=== PATIENT | male | born 1960 | race Caucasian/White ===

== ENCOUNTER 2017-07-11 17:38 | Inpatient (IN) | payer MEDICAID, SELFPAY ==
[2017-07-11 17:39] VITALS: BP 126/81; PULSE 112; PULSE 114; RESP 20; TEMP 36.6; O2SAT 93; O2SAT 96; BMI 24.2
[2017-07-11 17:50] LABS: Bedside Glucose 79 mg/dL (70-110)
[2017-07-11] MEDS: 0.9% Normal Saline 1,000 ML 1000 ML IV (17:55)
--- NOTE | 2017-07-11 17:55 | CT_ITS ---
STUDY: CT BRAIN WITHOUT CONTRAST REASON FOR EXAM: Male, 56 years old. Seizure, confusion and lethargy. History of TBI. RADIATION DOSAGE (If Supplied By Facility): CTDIvol = ( 44.99 ) mGy, DLP = ( 846.73 ) mGycm TECHNIQUE: Transaxial CT imaging of the brain was performed without administration of intravenous contrast material. Individualized dose optimization techniques were used for this CT. COMPARISON: None. FINDINGS: Normal soft tissue structures. Normal calvarium. There is mild cerebral atrophy with widening of the extra-axial spaces and ventricular dilatation. Old well demarcated infarct in right middle cerebral territory involving the right posterior frontal and temporal lobes. Normal basal ganglia and thalami. Normal brainstem. Normal cerebellum. There is no intracranial hemorrhage. There are no findings of an acute ischemic infarction. Mucosal thickening in the inferior recess of the right frontal sinus. Mild areas of mucosal thickening in bilateral ethmoid sinuses. Fluid in one large right mastoid air cell. CT/Brain/Head without Contrast IMPRESSION: Negative for acute intracranial findings. Negative for hemorrhage, hematoma or mass density. Negative for early demarcation of a new nonhemorrhagic infarct zone. 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 Electronically Signed: Maria C Nevarez MD at 18:40 EST , Service support ,
--- NOTE | 2017-07-11 17:55 | EKG12_ITS ---
Test Reason : UNRESPONSIVE Blood Pressure : / mmHG Vent. Rate : 111 BPM Atrial Rate : 111 BPM P-R Int : 168 ms QRS Dur : 112 ms QT Int : 340 ms P-R-T Axes : 067 068 054 degrees QTc Int : 462 ms Sinus tachycardia Otherwise normal ECG Confirmed by VICKI ROMERO ([id number]), manager editorial HONG ELIAS ([id number]) on 07/15/2017 9:44:37 AM Referred By: ABRAHAM Confirmed By:VICKI ROMERO
[2017-07-11 18:10] LABS: Absolute Lymphocyte Count 2.04 X10^3/ul (0.83-4.51); Absolute Neutrophil Count 13.6 X10^3/uL (2.0-7.7); Basophil# 0.02 X10^3/uL; Basophil% 0.1 % (0-1); Eosinophil# 0.03 X10^3/uL; Eosinophils% 0.2 % (0-5); Hematocrit 39.3 % (40-54); Hemoglobin 12.7 g/dl (13.0-16.5); Lymphocyte # 2.04 X10^3/ul (4.0); Lymphocyte % 12.2 % (19-41); Mean Corp Hgb Conc 32.3 g/gl (32-36); Mean Corpuscular Hgb 26.8 pg (27.0-32.0); Mean Corpuscular Volume 82.9 fL (80-94); Mean Platelet Vol. 9.1 fl (6.2-12.0); Monocyte# 0.98 X10^3/uL; Monocyte% 5.9 % (0-10); Neutrophil # 13.55 X10^3/uL (2.7-7.7); Neutrophil % 81.3 % (47-70); POSITIVE COUNT NO; POSITIVE DIFFERENTIAL NO; POSITIVE MORPHOLOGY NO; Platelet Count 338 K/mm3 (150-450); RBC Distribution Width CV 15.9 % (11.6-14.6); RBC Distribution Width SD 47.6 fl (35.1-43.9); Red Blood Count 4.74 M/mm3 (4.6-6.2); White Blood Count 16.7 K/mm3 (4.4-11.0)
[2017-07-11 18:13] LABS: International Normalized Ratio 1.1; Prothrombin Time (Protime)PT. 13.7 SECONDS (11.7-14.9)
[2017-07-11 18:14] LABS: Partial Thromboplast Time 30.3 Seconds (24.1-36.2)
[2017-07-11 18:23] LABS: ALB/GLOB Ratio 0.9 RATIO (0.9-2.4); AST(SGOT) 8 U/L (15-37); Alanine Aminotransfer ALT/SGPT 19 U/L (12-78); Albumin, Serum 3.6 g/dL (3.4-5.0); Alkaline Phosphatase 89 U/L (45-117); Anion Gap 9 (5-15); BUN 15 mg/dL (7-18); BUN/Creat Ratio 15.5 RATIO (10-20); Calcium,Total 8.7 mg/dL (8.5-10.1); Chloride 102 mmol/L (98-107); Creatinine, Serum 0.97 mg/dL (0.70-1.30); EST Glomerular Filtration Rate 86 mL/min (>60); Est Glom Filt Rate - Afr Amer 104 mL/min (>60); Estimated Creatinine Clearance 84.23 ml/min; Globulin 3.8 g/dL (2.2-4.2); Glucose 84 mg/dL (70-110); Lipase 68 U/L (73-393); Potassium 4.3 mmol/L (3.5-5.1); Protein, Total 7.4 g/dL (6.4-8.2); Sodium Level 137 mmol/L (136-145)
[2017-07-11 18:27] LABS: Alcohol, Blood (Medical)-Serum < 3.0 mg/dL
[2017-07-11 18:34] LABS: Lactic Acid 3.4 mmol/L (0.4-2.0)
[2017-07-11 20:12] VITALS: BP 112/73; PULSE 97; RESP 13; O2SAT 97
[2017-07-11 20:55] LABS: Bacteria 0 SEEN /hpf (None Seen); Mucous, Urine 0 SEEN /hpf (<or=2+); Red Blood Cells-Urine 0 SEEN /hpf (0-5); Squamous Epithelial Cells - UA 0 SEEN /hpf (0-5)
[2017-07-11 20:58] LABS: Color, Urine Yellow (Yellow); Glucose, Dipstick Normal (Normal); Ketone-Dipstick 5 mg/dl (Negative); Leukocyte Esterase-Dipstick 25 /ul (Negative); Nitrite-Dipstick Negative (Negative); Occult Blood-Urine Negative /ul (Negative); Protein-Dipstick Negative (Negative); Specific Gravity, Urine 1.015 (1.002-1.030); Urine Bilirubin Dipstick Negative (Negative); Urine Clarity Clear (Clear); Urine Urobilinogen Normal (Normal)
[2017-07-11 21:01] VITALS: BP 111/69; PULSE 92; RESP 12; O2SAT 98
[2017-07-11 21:07] LABS: White Blood Cells 0-5 SEEN /hpf (0-5)
[2017-07-11 21:16] LABS: Amphetamine Urine VISTA NEGATIVE (<1000 ng/mL); Barbiturate Urine VISTA NEGATIVE (< 200 ng/mL); Benzodiazepine Urine VISTA NEGATIVE (< 200 ng/mL); Cocaine Urine VISTA NEGATIVE (< 300 ng/mL); Ecstacy Urine VISTA NEGATIVE (< 500 ng/mL); Methadone Urine VISTA NEGATIVE (< 300 ng/mL); PCP Urine VISTA NEGATIVE (< 25 ng/mL); THC Urine VISTA NEGATIVE (< 50 ng/mL); Vista UDS pH Range 7
[2017-07-11 22:00] VITALS: BP 104/78; PULSE 88; PULSE 89; RESP 11; RESP 16; O2SAT 98
[2017-07-11 22:04] LABS: Reflex Lactate? Y
[2017-07-11] MEDS: 0.9% Normal Saline 1,000 ML 150 ML IV (22:11)
[2017-07-11 22:46] LABS: Lactic Acid 1.3 mmol/L (0.4-2.0)
[2017-07-11 23:04] VITALS: BP 121/84; PULSE 88; RESP 14; O2SAT 97
--- NOTE | 2017-07-11 23:04 | PCM.HP.STD ---
Problem List (1) Seizure Status: Acute (2) Acute respiratory failure Status: Acute (3) Encephalopathy Status: Acute (4) Hoarseness Status: Acute (5) Pneumonia Status: Acute Qualifiers: Pneumonia type: due to unspecified organism Laterality: unspecified laterality Lung location: unspecified part of lung Qualified Code(s): J18.9 - Pneumonia, unspecified organism (6) Sepsis Status: Acute (7) Bipolar disorder Status: Chronic Qualifiers: (8) COPD (chronic obstructive pulmonary disease) Status: Chronic Qualifiers: History of Present Illness Date of Admission: 07/11/17 Chief Complaint: Seizure The patient is a 56 year old male w/ h/o bipolar, HTN, COPD, and GERD admitted for AMS. He was riding with his out of [employer] when he suddenly developed shaking both of his hands. He spoke gibberish to his . Nothing made the shaking better or worse. The shake would last for a few minutes and he became unresponsive. EMS was called and he responded to sternal rub. He was able to open his syes and spoke . He had a h/o traumatic brain injury 15 years ago. Past Medical History Past Medical History (Chronic Problems): Chronic Problems (Last Updated 06/02/17 @ 11:00 by Clarisse Young) Depression (Chronic) LACEY (obstructive sleep apnea) (Chronic) Lung nodule (Chronic) Sleep-related breathing disorder (Chronic) Bipolar disorder (Chronic) GERD (gastroesophageal reflux disease) (Chronic) COPD (chronic obstructive pulmonary disease) (Chronic) Traumatic brain injury (Chronic) Spinal stenosis (Chronic) Tobacco abuse (Chronic) Migraine (Chronic) Allergies dextromethorphan HBr [From NyQuil] Allergy (Verified 07/11/17 17:43) Other doxylamine [From NyQuil] Allergy (Verified 07/11/17 17:43) Other pseudoephedrine HCl [From NyQuil] Allergy (Verified 07/11/17 17:43) Other sertraline HCl [From Zoloft] Adverse Reaction (Verified 07/11/17 17:43) Diarrhea Home Medications: Ambulatory Orders Medication Instructions Recorded Omeprazole [Prilosec] 40 mg PO DAILY 05/19/13 Albuterol Inhaler [Ventolin Hfa] 2 puff INHALATION Q4H PRN PRN 09/11/16 Albuterol Sulfate 5 mg IH PRN PRN 09/11/16 Amitriptyline HCl [Elavil] 100 mg PO QHS 09/11/16 Multivitamin [Multiple Vitamins] 1 ea PO DAILY 09/11/16 Divalproex (ER) [Depakote ER] 250 mg PO TID 12/05/16 Fluticasone/Salmeterol [Advair 1 puff INHALATION BID 12/05/16 100-50 Diskus] Quetiapine Fumarate [Seroquel] 25 mg PO TID PRN PRN 12/05/16 Ranitidine [Zantac] 150 mg PO QHS 12/05/16 Gabapentin [Neurontin] 800 mg PO 4X/DAY 04/14/17 Propranolol HCl [Inderal] 10 mg PO BID 07/11/17 Sucralfate [Carafate] 1 g PO 4X/DAY 07/11/17 Surgical History: - - Tennis elbow, Left ankle, TBI with encephalamalacia, Inguinal hernia. Psychiatric History: Bipolar Lives: Spouse/ Significant Other Smoking Status: Current every day smoker Alcohol: None Drugs: None - *Family History Maternal Family History: Family History (Last Updated 06/02/17 @ 11:02 by Clarisse Young) Father Dementia Alzheimers disease Diabetes Mother Diabetes History Items: Diabetes Paternal Family History: Family History (Last Updated 06/02/17 @ 11:02 by Clarisse Young) Father Dementia Alzheimers disease Diabetes Mother Diabetes History Items: Heart Disease Review of Systems Unable to obtain accurate/complete ROS d/t: Unable to obtain secondary to confusion VTE Information - Inpt Only VTE Present on Admission: No VTE Mechan Device Prophylaxis: SCD's VTE Pharm Prophylaxis ordered?: Yes Patient Problems: Active and Suspected Problems (Last Updated 06/02/17 @ 11:00 by Clarisse Young) Seizure (Acute) - Physical Exam General: No apparent distress, Confused HEENT: Atraumatic, PERRLA, EOMI, Normocephalic Neck: Supple, No JVD, Negative Carotid Bruits Lungs: Clear to auscultation, Normal air movement Cardiovascular: Regular rate, No murmurs Abdomen: Bowel Sounds Present, Soft, Non Tender Extremities: No edema, Capillary Refill Less than 3 Seconds Skin: No rashes, No breakdown Musculoskeletal: No Tenderness to Palpation of Joints or Extremities Neurological: Cranial nerves II-XII grossly intact Psych/Mental Status: Normal Affect, Appropriate Vital Signs Temp Pulse Resp BP Pulse Ox 97.9 F 88 14 121/84 H 97 07/11/17 17:39 07/11/17 23:04 07/11/17 23:04 07/11/17 23:04 07/11/17 23:04 Oxygen Flow Rate 2 Oxygen Delivery Method Room Air Weight: 72.3 kg Body Mass Index (BMI) 24.2 Finger Stick Blood Glucose 79 Laboratory Tests Past 24 Hrs 07/11/17 07/11/17 07/11/17 17:52 17:52 17:52 WBC 16.7 H RBC 4.74 Hgb 12.7 L Hct 39.3 L MCV 82.9 MCH 26.8 L MCHC 32.3 RDW 15.9 H RDW Differential 47.6 H Plt Count 338 MPV 9.1 Immature Gran % (Auto) 0.300 Neut % (Auto) 81.3 H Lymph % (Auto) 12.2 L [place] % (Auto) 5.9 Eos % (Auto) 0.2 Baso % (Auto) 0.1 Absolute Neuts (auto) 13.6 H Absolute Lymphs (auto) 2.04 Total Counted Not Reportable PT 13.7 INR 1.1 APTT 30.3 Sodium 137 Potassium 4.3 Chloride 102 Carbon Dioxide 26.0 Anion Gap 9 BUN 15 Creatinine 0.97 Estim Creat Clear Calc 84.23 Est GFR (MDRD) Af Amer 104 Est GFR (MDRD) Non-Af 86 BUN/Creatinine Ratio 15.5 Glucose 84 Lactic Acid Calcium 8.7 Total Bilirubin 0.50 AST 8 L ALT 19 Alkaline Phosphatase 89 Troponin I < 0.02 Total Protein 7.4 Albumin 3.6 Globulin 3.8 Albumin/Globulin Ratio 0.9 Lipase 68 L Urine Color Urine Clarity Urine pH Ur Specific [place] Urine Protein Urine Glucose (UA) Urine Ketones Urine Occult Blood Urine Nitrite Urine Bilirubin Urine Urobilinogen Ur Leukocyte Esterase Urine RBC Urine WBC Ur Squamous Epith Cells Urine Bacteria Urine Mucus Urine Opiates Screen Urine Methadone Screen Ur Barbiturates Screen Ur Phencyclidine Scrn Ur Amphetamines Screen U Methamphetamin-MDMA U Benzodiazepines Scrn Urine Cocaine Screen U Cannabinoids Screen Ur Drug Screen Comment Ethyl Alcohol 07/11/17 07/11/17 07/11/17 17:52 18:02 20:51 WBC RBC Hgb Hct MCV MCH MCHC RDW RDW Differential Plt Count MPV Immature Gran % (Auto) Neut % (Auto) Lymph % (Auto) [place] % (Auto) Eos % (Auto) Baso % (Auto) Absolute Neuts (auto) Absolute Lymphs (auto) Total Counted PT INR APTT Sodium Potassium Chloride Carbon Dioxide Anion Gap BUN Creatinine Estim Creat Clear Calc Est GFR (MDRD) Af Amer Est GFR (MDRD) Non-Af BUN/Creatinine Ratio Glucose Lactic Acid 3.4 H Calcium Total Bilirubin AST ALT Alkaline Phosphatase Troponin I Total Protein Albumin Globulin Albumin/Globulin Ratio Lipase Urine Color Yellow Urine Clarity Clear Urine pH 8.0 Ur Specific [place] 1.015 Urine Protein Negative Urine Glucose (UA) Normal Urine Ketones 5 H Urine Occult Blood Negative Urine Nitrite Negative Urine Bilirubin Negative Urine Urobilinogen Normal Ur Leukocyte Esterase 25 H Urine RBC 0 SEEN Urine WBC 0-5 SEEN Ur Squamous Epith Cells 0 SEEN Urine Bacteria 0 SEEN Urine Mucus 0 SEEN Urine Opiates Screen Urine Methadone Screen Ur Barbiturates Screen Ur Phencyclidine Scrn Ur Amphetamines Screen U Methamphetamin-MDMA U Benzodiazepines Scrn Urine Cocaine Screen U Cannabinoids Screen Ur Drug Screen Comment Ethyl Alcohol < 3.0 07/11/17 07/11/17 20:51 22:12 WBC RBC Hgb Hct MCV MCH MCHC RDW RDW Differential Plt Count MPV Immature Gran % (Auto) Neut % (Auto) Lymph % (Auto) [place] % (Auto) Eos % (Auto) Baso % (Auto) Absolute Neuts (auto) Absolute Lymphs (auto) Total Counted PT INR APTT Sodium Potassium Chloride Carbon Dioxide Anion Gap BUN Creatinine Estim Creat Clear Calc Est GFR (MDRD) Af Amer Est GFR (MDRD) Non-Af BUN/Creatinine Ratio Glucose Lactic Acid 1.3 Calcium Total Bilirubin AST ALT Alkaline Phosphatase Troponin I Total Protein Albumin Globulin Albumin/Globulin Ratio Lipase Urine Color Urine Clarity Urine pH Ur Specific [place] Urine Protein Urine Glucose (UA) Urine Ketones Urine Occult Blood Urine Nitrite Urine Bilirubin Urine Urobilinogen Ur Leukocyte Esterase Urine RBC Urine WBC Ur Squamous Epith Cells Urine Bacteria Urine Mucus Urine Opiates Screen NEGATIVE Urine Methadone Screen NEGATIVE Ur Barbiturates Screen NEGATIVE Ur Phencyclidine Scrn NEGATIVE Ur Amphetamines Screen NEGATIVE U Methamphetamin-MDMA NEGATIVE U Benzodiazepines Scrn NEGATIVE Urine Cocaine Screen NEGATIVE U Cannabinoids Screen NEGATIVE Ur Drug Screen Comment Ethyl Alcohol POC Glucose 01/26/18 17:47 POC Glucose 79 Assessment/Plan Active and Suspected Problems (Last Updated 06/02/17 @ 11:00 by Clarisse Young) Seizure (Acute) 56 year old male w/ h/o bipolar, HTN, COPD, and GERD admitted for AMS. 1) AMS / seizure: Unclear etiology. CT negative. Utox negative. Pt received Depacon in ED. Will consult neurology. Will get ammonia, TSH, folate, B12, and RPR. Will get ECHO as well. 2) Bipolar: C/w meds. 3) COPD: No acute exacerbation. C/w meds. Monitor. 4) Prophylaxis: Heparin
--- NOTE | 2017-07-11 23:04 | ED.RN ---
HAS LEFT TO RUN HOME QUICK AND GRAB SOMETHING TO EAT. HER NUMBERS ARE CELL [phone], HOME [phone]
[2017-07-12] VITALS (17 sets, daily range): BP systolic 113–146; BP diastolic 72–89; PULSE 84–93; RESP 15–20; TEMP 36.3–37; O2SAT 2–97; BMI 25.0; BMI 25.1
--- NOTE | 2017-07-12 00:19 | ECHOD_ITS ---
Reason For Study: Dyspnea/SOB Procedure This was a 2D Doppler, Color Flow transthoracic echocardiogram. Exam performed portable in patient room. Left Ventricle Normal size and thickness. The estimated ejection fraction is 65 %. Stage 1 diastolic dysfunction. No regional wall motion abnormalities noted. Right Ventricle Normal size and thickness. Normal systolic function. Atria Normal left atrium. Normal right atrium. Normal atrial septum. Mitral Valve The mitral valve is structurally normal. No prolapse or stenosis seen. Tricuspid Valve Normal tricuspid valve. Unable to estimate RV systolic pressure/pulmonary artery pressure due to technically difficult study. Aortic Valve Normal aortic valve. Trisinus/trileaflet aortic valve. Pulmonic Valve Normal pulmonic valve. Great Vessels Normal aortic root. Normal arch. Normal inferior vena cava. Inferior vena cava collapse with sniff. Pericardium/Pleural No pericardial effusion. MMode/2D Measurements & Calculations LVIDd: 4.7 cm IVSd: 0.89 cm Ao root diam: 3.3 cm LVIDs: 3.3 cm LVPWd: 0.99 cm LA dimension: 2.6 cm RVDd: 2.9 cm FS: 31.0 % LAV(MOD-sp4): 25.3 ml LVAd ap4: 32.4 cm2 SV(MOD-sp4): 48.9 ml EDV(MOD-sp4): 91.3 ml EDV(sp4-el): 94.1 ml LVAs ap4: 20.4 cm2 ESV(MOD-sp4): 42.5 ml ESV(sp4-el): 43.1 ml EF(MOD-sp4): 53.5 % EF(sp4-el): 54.2 % SV(sp4-el): 51.0 ml LA A4 area: 12.1 cm2 RA A4 area: 9.4 cm2 Time Measurements MV dec time: 0.20 sec Doppler Measurements & Calculations MV E max sebastien: 66.4 cm/sec Lat Peak E' Sebastien: 16.2 cm/sec Med Peak E' Sebastien: 12.4 cm/sec MV A max sebastien: 80.0 cm/sec E/E' lat: 4.1 E/E' med: 5.4 MV E/A: 0.83 MV V2 max: 84.7 cm/sec MV P1/2t max sebastien: 84.1 cm/sec Ao V2 max: 123.6 cm/sec MV max P.9 mmHg MV P1/2t: 59.0 msec Ao max P.1 mmHg MV V2 mean: 54.6 cm/sec MV dec slope: 417.6 cm/sec2 Ao V2 mean: 84.4 cm/sec MV mean P.4 mmHg MVA(P1/2t): 3.7 cm2 Ao mean P.1 mmHg MV V2 VTI: 20.3 cm Ao V2 VTI: 22.3 cm LV V1 max: 102.3 cm/sec PA V2 max: 96.3 cm/sec LV V1 max P.2 mmHg LV V1 mean P.0 mmHg LV V1 mean: 64.2 cm/sec LV V1 VTI: 20.9 cm Interpretation Summary The estimated ejection fraction is 65 %. Stage 1 diastolic dysfunction. Unable to estimate RV systolic pressure/pulmonary artery pressure due to technically difficult study. There is no comparison study available. Ordering Physician: Michael Hernandez Referring Physician: Priscilla Nixon Performed By: Mc Sevilla RCS
--- NOTE | 2017-07-12 00:26 | ED.VISSUMM ---
- ER Visit Summary Date of Service: 07/12/17 Chief Complaint: Altered mental status History of Present Illness: The patient is a 56 M who was riding in a car with his when he began to speak gibberish for a few seconds and then his upper extremities began to shake. This lasted a short while the patient became unresponsive. EMS was called and per them the patient appeared that he was in cardiac arrest. However when the did a sternal rub he open his eyes and was able to speak. She had a severe traumatic brain injury about 15 years ago. He sees Dr. Gillespie from neurology. He has a bipolar disorder for which he takes Depakote amongst other medicines. He has never had a seizure. Physical Examination: Afebrile slightly tachycardic Gen: Well-nourished well-developed Head: Normocephalic atraumatic Eyes: Perrl EOMI ENT: TMs clear no rhinorrhea moist mucous membranes Neck: Supple no lymphadenopathy no JVD nontender CVS: Regular rate rhythm no murmurs normal S1-S2 Respiratory: No distress clear to auscultation bilaterally chest nontender Abdomen: Soft nontender nondistended normal bowel sounds no masses Back: Nontender Extremity: Nontender no edema Skin: Normal color no rash Neuro: Patient is lethargic. Patient opens his eyes and speaks to voice but falls asleep easily. He does move all 4 extremities. He smiles equally and closes his eyes appropriately and equally. Test Results: CT the head showed no acute. White count 16.7. Lactic acid 3.4. EKG sinus at a rate of 111. Troponin is then 0.02 Emergency Department Course and Treatment: Patient was observed. He has not yet regained his baseline. He seems to fall asleep still very easily. Spoke with Dr. Nguyen from neurology and we gave him a gram of Depacon. Our plan is admission. Impression: 1. Altered mental status 2. First-time seizure This note was generated with [employer] dictation software. It may contain incorrect words, spelling, and punctuation that were not noted in review of the chart prior to signing ED Disposition - Plan for ED Patient: Disposition: Acute Care [facility] Chief Complaint: Neuro S/Sx
[2017-07-12] MEDS: 0.9% Normal Saline 1,000 ML 100 ML IV ×3 (01:34→22:41)
[2017-07-12 03:40] LABS: Absolute Lymphocyte Count 3.38 X10^3/ul (0.83-4.51); Basophil# 0.02 X10^3/uL; Basophil% 0.2 % (0-1); Eosinophils% 0.8 % (0-5); Hematocrit 35.2 % (40-54); Hemoglobin 11.1 g/dl (13.0-16.5); Lymphocyte # 3.38 X10^3/ul (4.0); Lymphocyte % 25.4 % (19-41); Mean Corp Hgb Conc 31.5 g/gl (32-36); Mean Corpuscular Hgb 26.5 pg (27.0-32.0); Mean Platelet Vol. 8.6 fl (6.2-12.0); Monocyte# 0.74 X10^3/uL; Monocyte% 5.6 % (0-10); Neutrophil # 9.04 X10^3/uL (2.7-7.7); Neutrophil % 67.8 % (47-70); Platelet Count 275 K/mm3 (150-450); RBC Distribution Width SD 49.1 fl (35.1-43.9); Red Blood Count 4.19 M/mm3 (4.6-6.2); White Blood Count 13.3 K/mm3 (4.4-11.0)
[2017-07-12 03:41] LABS: POSITIVE COUNT NO; POSITIVE DIFFERENTIAL NO; POSITIVE MORPHOLOGY NO
[2017-07-12] MEDS: Gabapentin 800 MG Tablet PO ×5 (03:44→22:34)
[2017-07-12 04:01] LABS: ALB/GLOB Ratio 0.8 RATIO (0.9-2.4); AST(SGOT) 6 U/L (15-37); Alanine Aminotransfer ALT/SGPT 15 U/L (12-78); Albumin, Serum 2.6 g/dL (3.4-5.0); Alkaline Phosphatase 67 U/L (45-117); Anion Gap 8 (5-15); BUN 10 mg/dL (7-18); BUN/Creat Ratio 18.2 RATIO (10-20); Calcium,Total 7.6 mg/dL (8.5-10.1); Chloride 105 mmol/L (98-107); Creatinine, Serum 0.55 mg/dL (0.70-1.30); EST Glomerular Filtration Rate 165 mL/min (>60); Est Glom Filt Rate - Afr Amer 200 mL/min (>60); Estimated Creatinine Clearance 143.55 ml/min; Globulin 3.2 g/dL (2.2-4.2); Glucose 80 mg/dL (70-110); Potassium 3.9 mmol/L (3.5-5.1); Protein, Total 5.8 g/dL (6.4-8.2); Sodium Level 139 mmol/L (136-145)
[2017-07-12] MEDS: Sucralfate 1 GM Tablet PO ×4 (06:52→22:34)
[2017-07-12] MEDS: Divalproex (ER) 250 MG Tablet PO (06:53)
[2017-07-12] MEDS: Budesonide Respules 0.5 MG/2 ML AMPUL.NEB. INHALATION ×2 (07:12→18:54)
[2017-07-12] MEDS: Albuterol 2.5 MG/3 ML VIAL.NEB. INHALATION ×3 (07:12→18:54)
--- NOTE | 2017-07-12 08:48 | PN_ITS ---
Patient Problems: Active and Suspected Problems (Last Updated 06/02/17 @ 11:00 by Clarisse Young ) Seizure (Acute) Subjective: Patient is a 56-year-old male with a past medical history of traumatic brain injury, bipolar disorder, COPD, hypertension and GERD who presented to the emergency department at [facility] on 07/11/2017 after becoming unresponsive while riding in a car with his . Prior to becoming unconscious he was making inappropriate comments just prior to losing consciousness. He is known to me from a previous admission in August of 2016 when he had a necrotic mass in the R middle lobe in association with loculated hydropneumothorax on the Right. He was transferred to [facility] for possible VATS. states she does not hink he had a VATS and the necrotic mass in the right mid lung was pneumonia. He could be aroused in the ED but would fall back to sleep. Vital signs at presentation to the emergency room were temperature 97.9, pulse rate 114, blood pressure 126/81, respiratory rate 20 and he was 96% saturated on room air. White blood cell count was 16.7 with 81% neutrophils. Hemoglobin was 12.7 and platelets were normal. BMP was unremarkable and LFTs were also unremarkable. Lactic acid was elevated at 3.4 but the recheck was 1.3. Ammonia is mildly increased at 42. Troponins have been negative ?3. Tox screen was negative. CT brain was negative for any acute intracranial findings. 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 He was given 1 g of Depacon in the emergency room and started on TID Depakote. He has not previously had a seizure. He is also complaining of numbness in the ring and little fingers on both hands. He follows up with Dr. Gillespie as an OP. Orthostatic vital signs were positive today. He denies dizziness, cephalgia, any acute neurologic complaints. No CP and no SOB. Has not been ill recently. states he was unresponsive and his arms and legs were rhythmically shaking. No bowel or bladder incontinence and he denies biting his tongue. He now has oxygen at home which he uses primarily when sleeping. Echocardiogram today shows a 65% 1 diastolic dysfunction. The study was technically difficult and the right ventricular systolic pressure could not be estimated. - Physical Exam General: Alert, Cooperative, No apparent distress, - - He is at his baseline today. He has a lot of problems with memory from previous TBI. He does remeber me from the last admission. HEENT: Atraumatic, PERRLA, EOMI, Normocephalic Oral: Moist Mucosa, No Gingival or Mucosal Lesions/ Ulcerations - no evidence that he bit his tongue Neck: Supple, No Nodes, No Nuchal Rigidity, Trachea Midline Lungs: No rhonchi, No wheeze, No rales, Diminished, - - not tachypneic at rest and no accessory muscle use Cardiovascular: Regular rate, Regular Rhythm, Normal S1, Normal S2, No murmurs, No Ectopic Activity, No rub noted, No Gallop Abdomen: Bowel Sounds Present, Soft, Non Tender, Non-Distended Extremities: No cyanosis, No edema Skin: No rashes Neurological: Cranial nerves II-XII grossly intact, Neuro grossly intact Psych/Mental Status: Normal Affect, Appropriate Vital Signs Temp Pulse Resp BP Pulse Ox 97.5 F L 86 16 146/87 H 91 07/12/17 04:30 07/12/17 07:12 07/12/17 07:12 07/12/17 06:40 07/12/17 07:12 Oxygen Flow Rate 3 Oxygen Delivery Method Room Air Weight: 162 lb 7.691 oz Body Mass Index (BMI) 25.0 Orthostatic Vital Signs Start: 07/12/17 08:00 Freq: q24h Status: Active Protocol: Activity Type Activity Date Activity User E-Sign Co-Sign Detail Recorded Client Recorded Date Recorded By Document 07/12/17 06:40 PAL [id number] 07/12/17 08:02 PAL 07/12/17 06:40 Orthostatic Vitals Standing -Blood Pressure (90/60-120/80 mm Hg) 121/81 H -Extremity Use Right Arm -Pulse Rate (60-100 beats/min) 92 Sitting -Blood Pressure (90/60-120/80 mm Hg) 139/87 H -Extremity Use Right Arm -Pulse Rate (60-100 beats/min) 92 Lying -Blood Pressure (90/60-120/80 mm Hg) 146/87 H -Extremity Use Right Arm -Pulse Rate (60-100 beats/min) 86 Intake and Output for Last 24 Hours 07/10/17 07/11/17 07/12/17 23:59 23:59 23:59 Intake Total 626 / 626 Output Total 0 / 0 Balance 626 / 626 Laboratory Tests Past 24 Hrs 07/12/17 07/12/17 07/12/17 00:52 00:52 00:52 WBC RBC Hgb Hct MCV MCH MCHC RDW RDW Differential Plt Count MPV Immature Gran % (Auto) Neut % (Auto) Lymph % (Auto) [place] % (Auto) Eos % (Auto) Baso % (Auto) Absolute Neuts (auto) Absolute Lymphs (auto) Total Counted Sodium Potassium Chloride Carbon Dioxide Anion Gap BUN Creatinine Estim Creat Clear Calc Est GFR (MDRD) Af Amer Est GFR (MDRD) Non-Af BUN/Creatinine Ratio Glucose Calcium Total Bilirubin AST ALT Alkaline Phosphatase Ammonia Troponin I < 0.02 Total Protein Albumin Globulin Albumin/Globulin Ratio Vitamin B12 Pending Folate 18.30 TSH 0.30 L RPR 07/12/17 07/12/17 07/12/17 00:52 00:52 03:26 WBC RBC Hgb Hct MCV MCH MCHC RDW RDW Differential Plt Count MPV Immature Gran % (Auto) Neut % (Auto) Lymph % (Auto) [place] % (Auto) Eos % (Auto) Baso % (Auto) Absolute Neuts (auto) Absolute Lymphs (auto) Total Counted Sodium Potassium Chloride Carbon Dioxide Anion Gap BUN Creatinine Estim Creat Clear Calc Est GFR (MDRD) Af Amer Est GFR (MDRD) Non-Af BUN/Creatinine Ratio Glucose Calcium Total Bilirubin AST ALT Alkaline Phosphatase Ammonia 42.0 H Troponin I < 0.02 Total Protein Albumin Globulin Albumin/Globulin Ratio Vitamin B12 Folate TSH RPR Pending 07/12/17 07/12/17 07/12/17 03:26 03:26 07:40 WBC 13.3 H RBC 4.19 L Hgb 11.1 L Hct 35.2 L MCV 84.0 MCH 26.5 L MCHC 31.5 L RDW 16.0 H RDW Differential 49.1 H Plt Count 275 MPV 8.6 Immature Gran % (Auto) 0.200 Neut % (Auto) 67.8 Lymph % (Auto) 25.4 [place] % (Auto) 5.6 Eos % (Auto) 0.8 Baso % (Auto) 0.2 Absolute Neuts (auto) 9.0 H Absolute Lymphs (auto) 3.38 Total Counted Not Reportable Sodium 139 Potassium 3.9 Chloride 105 Carbon Dioxide 26.0 Anion Gap 8 BUN 10 Creatinine 0.55 L Estim Creat Clear Calc 143.55 Est GFR (MDRD) Af Amer 200 Est GFR (MDRD) Non-Af 165 BUN/Creatinine Ratio 18.2 Glucose 80 Calcium 7.6 L Total Bilirubin 0.40 AST 6 L ALT 15 Alkaline Phosphatase 67 Ammonia Troponin I Pending Total Protein 5.8 L Albumin 2.6 L Globulin 3.2 Albumin/Globulin Ratio 0.8 L Vitamin B12 Folate TSH RPR Assessment/Plan Active and Suspected Problems (Last Updated 06/02/17 @ 11:00 by Clarisse Young ) Seizure (Acute) Impressions 1. Transient altered mental status/suspected seizure. Possibly related to TBI in the past. MRI in August of 2016 showed diffuse gliosis and encephalomalacia in the right temporal lobe extending into the frontal parietal region 2. hx of TBI - follows with Dr. Gillespie. No hx of seizure 3. COPD with moderate to severe large airways obstruction with increased RV and decreased DLCO and no significant response to bronchodilators 4. LACEY on CPAP - review of compliance with CPAP from May shows that in a period of 14 days he used the CPAP 1 day for > 4 hours and 2 days for < 4 hours. In 14 days he used the CPAP for only 9 hours. States he recently changed to a nasal unit because he felt as though he was suffocating with the full mask 5. Bipolar disorder 6. Nicotine dependence 7. Necrotic pneumonia vs mass in the right middle lobe in August 2016 - transferred to [facility] 8. Migraine cephalgia 9. spinal stenosis 10. GERD He is seeing [facility] for pulmonary follow up and Dr. Gillespie for neurology Moderate to severe COPD and still smoking Will order and EEG and also an MRI of the brain and CTA of the head and neck Dr. Nguyen has been consulted Continue the Depakote - ammonia mildly increased.....significance? Smoking cessation counselling given by myself Code Visit Inpatient E&M: 75833 Subs Hosp L3
[2017-07-12 09:13] LABS: Free T3 1.9 pg/mL (2.18-3.98)
[2017-07-12] MEDS: Famotidine 20 MG Tablet PO (10:20)
[2017-07-12] MEDS: Pantoprazole Sodium 40 MG Tablet PO (10:21)
[2017-07-12] MEDS: Propranolol 10 MG Tablet PO ×2 (10:21→22:34)
--- NOTE | 2017-07-12 11:30 | MRI_ITS ---
STUDY: MRI BRAIN WITHOUT CONTRAST REASON FOR EXAM: Male, 56 years old. New onset of seizures. History of traumatic brain injury TECHNIQUE: Standardized multiplanar fat and water weighted pulse sequences were obtained. COMPARISON: CT study of December 21, 2016 and on July 11, 2017 FINDINGS: The most recent CT study showed an area of old infarct in the right middle cerebral artery distribution. The current DWI image does not show any restricted diffusion. The FLAIR sequences demonstrates increased signal in the same right temporoparietal region where the CT scan that showed the abnormal attenuation. The finding therefore is consistent with an old infarct. There is no indication of acute intra or extra-axial hemorrhage. There is no tumor mass. The ventricles, basal cisterns and cortical sulci are normal. The calvarium is intact and there are no scalp swelling. . MRI/Brain without Contrast IMPRESSION: An old infarct in the right middle cerebral artery distribution. No acute findings in the brain Electronically Signed: Paul Lcuas, at 15:20 EST Tel , Service support ,
--- NOTE | 2017-07-12 11:32 | CT_ITS ---
STUDY: CTA OF THE BRAIN REASON FOR EXAM: Male, 56 years old. New onset of seizures RADIATION DOSAGE (If Supplied By Facility): CTDIvol = ( 32.18 ) mGy, DLP = ( 1585.69 ) mGycm TECHNIQUE: CT angiography was performed with a multi-detector CT scanner. Data acquisition was obtained from the skull base through the vertex following intravenous administration of ml of . MIP images were reconstructed from the axial data set. Post-processing of the angiographic images was performed, with multiplanar reformation and 3D reconstruction. Individualized dose optimization techniques were used for this CT. COMPARISON: None. FINDINGS: Normal bilateral petrous carotid arteries. Normal right cavernous carotid artery with a normal supraclinoid bifurcation. Normal left cavernous carotid artery with a normal supraclinoid bifurcation. Normal right A1 segments of the anterior cerebral artery. Normal left A1 segments of the anterior cerebral artery. Normal intact anterior communicating artery (ACOM). Normal bilateral A2 segments of the anterior cerebral arteries. Normal right M1 and M2 segments of the middle cerebral arteries, with a normal M1 bifurcation. Normal left M1 and M2 segments of the middle cerebral arteries, with a normal M1 bifurcation. Normal right posterior communicating artery (PCOM). Normal left posterior communicating artery (PCOM). Normal bilateral vertebral arteries. Normal basilar artery with a normal basilar bifurcation. The visualized bilateral superior cerebellar (SCA) arteries are normal. Normal bilateral P1, P2 and visualized P3 segments of the posterior cerebral arteries. There is no demonstrated aneurysm of the [place]. There is no demonstrated abnormality of the visualized brain. IMPRESSION: Normal [place] without a demonstrated aneurysm or hemodynamically significant stenosis. No tumor blushes and no evidence of an arteriovenous malformation Electronically Signed: Paul Lucas, at 13:28 EST Tel , Service support , STUDY: CTA OF THE NECK REASON FOR EXAM: Male, 56 years old. New onset of seizures RADIATION DOSAGE (If Supplied By Facility): CTDIvol = ( 32.18 ) mGy, DLP = ( 1585.69 ) mGycm TECHNIQUE: CT angiography was performed with a multi-detector CT scanner. Data acquisition was obtained from the skull base through the vertex following intravenous administration of 100 ml of Isovue 370. MIP images were reconstructed from the axial data set. Post-processing of the angiographic images was performed, with multiplanar reformation and 3D reconstruction. Individualized dose optimization techniques were used for this CT. COMPARISON: None FINDINGS: Normal takeoffs of the left subclavian, the left common carotid and brachiocephalic arteries from the arch of the aorta. Both common carotid arteries, both carotid bulbs and both internal and external carotid arteries are within normal limits. The vertebral basilar circulation is also within normal limits. CT/CTA Head W/WO Contrast IMPRESSION: The study is within normal limits Electronically Signed: Paul Lucas, at 13:31 EST Tel , Service support ,
--- NOTE | 2017-07-12 11:33 | CT_ITS ---
STUDY: CTA OF THE BRAIN REASON FOR EXAM: Male, 56 years old. New onset of seizures RADIATION DOSAGE (If Supplied By Facility): CTDIvol = ( 32.18 ) mGy, DLP = ( 1585.69 ) mGycm TECHNIQUE: CT angiography was performed with a multi-detector CT scanner. Data acquisition was obtained from the skull base through the vertex following intravenous administration of ml of . MIP images were reconstructed from the axial data set. Post-processing of the angiographic images was performed, with multiplanar reformation and 3D reconstruction. Individualized dose optimization techniques were used for this CT. COMPARISON: None. FINDINGS: Normal bilateral petrous carotid arteries. Normal right cavernous carotid artery with a normal supraclinoid bifurcation. Normal left cavernous carotid artery with a normal supraclinoid bifurcation. Normal right A1 segments of the anterior cerebral artery. Normal left A1 segments of the anterior cerebral artery. Normal intact anterior communicating artery (ACOM). Normal bilateral A2 segments of the anterior cerebral arteries. Normal right M1 and M2 segments of the middle cerebral arteries, with a normal M1 bifurcation. Normal left M1 and M2 segments of the middle cerebral arteries, with a normal M1 bifurcation. Normal right posterior communicating artery (PCOM). Normal left posterior communicating artery (PCOM). Normal bilateral vertebral arteries. Normal basilar artery with a normal basilar bifurcation. The visualized bilateral superior cerebellar (SCA) arteries are normal. Normal bilateral P1, P2 and visualized P3 segments of the posterior cerebral arteries. There is no demonstrated aneurysm of the [place]. There is no demonstrated abnormality of the visualized brain. IMPRESSION: Normal [place] without a demonstrated aneurysm or hemodynamically significant stenosis. No tumor blushes and no evidence of an arteriovenous malformation Electronically Signed: Paul Lucas, at 13:28 EST Tel , Service support , STUDY: CTA OF THE NECK REASON FOR EXAM: Male, 56 years old. New onset of seizures RADIATION DOSAGE (If Supplied By Facility): CTDIvol = ( 32.18 ) mGy, DLP = ( 1585.69 ) mGycm TECHNIQUE: CT angiography was performed with a multi-detector CT scanner. Data acquisition was obtained from the skull base through the vertex following intravenous administration of 100 ml of Isovue 370. MIP images were reconstructed from the axial data set. Post-processing of the angiographic images was performed, with multiplanar reformation and 3D reconstruction. Individualized dose optimization techniques were used for this CT. COMPARISON: None FINDINGS: Normal takeoffs of the left subclavian, the left common carotid and brachiocephalic arteries from the arch of the aorta. Both common carotid arteries, both carotid bulbs and both internal and external carotid arteries are within normal limits. The vertebral basilar circulation is also within normal limits. CT/CTA Neck W/WO Contrast IMPRESSION: The study is within normal limits Electronically Signed: Paul Lucas, at 13:31 EST Tel , Service support ,
--- NOTE | 2017-07-12 13:27 | CON.PCM_ITS ---
Reason for Consult Date of Consultation: 07/12/17 Reason for Consultation: seizure History of Present Illness: The patient is a 56 year old M [] Past Medical History Past Medical History (Chronic Problems): Chronic Problems (Last Reviewed 07/23/17 @ 14:26 by Tammy Stone NP-C) Diastolic dysfunction (Chronic) Depression (Chronic) LACEY (obstructive sleep apnea) (Chronic) CPAP 11 cm of water Lung nodule (Chronic) Sleep-related breathing disorder (Chronic) Bipolar disorder (Chronic) GERD (gastroesophageal reflux disease) (Chronic) COPD (chronic obstructive pulmonary disease) (Chronic) Encephalopathy (Chronic) Traumatic brain injury (Chronic) Spinal stenosis (Chronic) Tobacco abuse (Chronic) Migraine (Chronic) Allergies dextromethorphan HBr [From NyQuil] Allergy (Verified 07/11/17 17:43) Other doxylamine [From NyQuil] Allergy (Verified 07/11/17 17:43) Other pseudoephedrine HCl [From NyQuil] Allergy (Verified 07/11/17 17:43) Other sertraline HCl [From Zoloft] Adverse Reaction (Verified 07/11/17 17:43) Diarrhea Home Medications: Ambulatory Orders Medication Instructions Recorded Omeprazole [Prilosec] 40 mg PO DAILY 05/19/13 Albuterol Inhaler [Ventolin Hfa] 2 puff INHALATION Q4H PRN PRN 09/11/16 Albuterol Sulfate 5 mg IH PRN PRN 09/11/16 Amitriptyline HCl [Elavil] 100 mg PO QHS 09/11/16 Multivitamin [Multiple Vitamins] 1 ea PO DAILY 09/11/16 Fluticasone/Salmeterol [Advair 1 puff INHALATION BID 12/05/16 100-50 Diskus] Quetiapine Fumarate [Seroquel] 25 mg PO TID PRN PRN 12/05/16 Ranitidine [Zantac] 150 mg PO QHS 12/05/16 Gabapentin [Neurontin] 800 mg PO 4X/DAY 04/14/17 Propranolol HCl [Inderal (Beta 10 mg PO BID 07/11/17 Danielle)] Sucralfate [Carafate] 1 g PO 4X/DAY 07/11/17 Divalproex Sodium [Depakote ER] 1,000 mg PO DAILY #60 tab.er.24h 07/13/17 Surgical History: - - Tennis elbow, Left ankle, TBI with encephalamalacia, Inguinal hernia. Psychiatric History: Bipolar Lives: Spouse/ Significant Other Smoking Status: Current every day smoker Alcohol: None Drugs: None - *Family History Maternal Family History: Family History (Last Reviewed 07/23/17 @ 14:26 by SANDRA Chan) Father Dementia Alzheimers disease Diabetes Mother Diabetes History Items: Diabetes Paternal Family History: Family History (Last Reviewed 07/23/17 @ 14:26 by SANDRA Chan) Father Dementia Alzheimers disease Diabetes Mother Diabetes History Items: Heart Disease Review of Systems Constitutional: Denies: Chills, Fever, Weight Change HEENT: Denies: Head Aches, Sinus Congestion, Sinus Drainage Cardiovascular: Denies: Chest Pain, Palpitations Respiratory: Denies: Cough, Shortness of breath at rest, Sputum production Gastrointestinal: Denies: Abdominal Pain, Nausea, Vomiting Genitourinary: Denies: Dysuria Musculoskeletal: Denies: Joint Pain, Joint Tenderness Skin: Denies: Rash, Wounds Neurological: Denies: Numbness, Tingling, Focal weakness Psychiatric: Denies: Anxiety, Depression, Homicidal Ideations, Suicidal Ideations Hematologic/ Lymphatic: Denies: Easy Bruising, Easy Bleeding - Physical Exam General: Alert, Oriented x3, Cooperative HEENT: Atraumatic, PERRLA, EOMI, Normocephalic Neck: Supple, No JVD, Negative Carotid Bruits Lungs: Clear to auscultation, Normal air movement Cardiovascular: Regular rate, No murmurs Abdomen: Bowel Sounds Present, Soft, Non Tender Extremities: No edema, Capillary Refill Less than 3 Seconds Skin: No rashes, No breakdown Musculoskeletal: No Tenderness to Palpation of Joints or Extremities Neurological: Cranial nerves II-XII grossly intact Psych/Mental Status: Normal Affect, Appropriate Vital Signs Temp Pulse Resp BP Pulse Ox 36.8 C 85 16 115/72 96 07/12/17 10:24 07/12/17 12:51 07/12/17 12:51 07/12/17 10:24 07/12/17 12:51 Oxygen Flow Rate 2 Oxygen Delivery Method Nasal Cannula Weight: 73.7 kg Body Mass Index (BMI) 25.0 Orthostatic Vital Signs Start: 07/12/17 08:00 Freq: q24h Status: Active Protocol: Activity Type Activity Date Activity User E-Sign Co-Sign Detail Recorded Client Recorded Date Recorded By Document 07/12/17 06:40 PAL [id number] 07/12/17 08:02 PAL 07/12/17 06:40 Orthostatic Vitals Standing -Blood Pressure (90/60-120/80) 121/81 H -Extremity Use Right Arm -Pulse Rate (60-100) 92 Sitting -Blood Pressure (90/60-120/80) 139/87 H -Extremity Use Right Arm -Pulse Rate (60-100) 92 Lying -Blood Pressure (90/60-120/80) 146/87 H -Extremity Use Right Arm -Pulse Rate (60-100) 86 Intake and Output for Last 24 Hours 07/10/17 07/11/17 07/12/17 23:59 23:59 23:59 Intake Total 746 / 746 Output Total 0 / 0 Balance 746 / 746 Laboratory Tests Past 24 Hrs 07/12/17 07/12/17 07/12/17 00:52 00:52 00:52 WBC RBC Hgb Hct MCV MCH MCHC RDW RDW Differential Plt Count MPV Immature Gran % (Auto) Neut % (Auto) Lymph % (Auto) Harper % (Auto) Eos % (Auto) Baso % (Auto) Absolute Neuts (auto) Absolute Lymphs (auto) Total Counted Sodium Potassium Chloride Carbon Dioxide Anion Gap BUN Creatinine Estim Creat Clear Calc Est GFR (MDRD) Af Amer Est GFR (MDRD) Non-Af BUN/Creatinine Ratio Glucose Calcium Total Bilirubin AST ALT Alkaline Phosphatase Ammonia Troponin I < 0.02 Total Protein Albumin Globulin Albumin/Globulin Ratio Vitamin B12 Pending Folate 18.30 TSH 0.30 L Free T4 Free T3 pg/dL RPR 07/12/17 07/12/17 07/12/17 00:52 00:52 03:26 WBC RBC Hgb Hct MCV MCH MCHC RDW RDW Differential Plt Count MPV Immature Gran % (Auto) Neut % (Auto) Lymph % (Auto) Harper % (Auto) Eos % (Auto) Baso % (Auto) Absolute Neuts (auto) Absolute Lymphs (auto) Total Counted Sodium Potassium Chloride Carbon Dioxide Anion Gap BUN Creatinine Estim Creat Clear Calc Est GFR (MDRD) Af Amer Est GFR (MDRD) Non-Af BUN/Creatinine Ratio Glucose Calcium Total Bilirubin AST ALT Alkaline Phosphatase Ammonia 42.0 H Troponin I < 0.02 Total Protein Albumin Globulin Albumin/Globulin Ratio Vitamin B12 Folate TSH Free T4 Free T3 pg/dL RPR Pending 07/12/17 07/12/17 07/12/17 03:26 03:26 07:40 WBC 13.3 H RBC 4.19 L Hgb 11.1 L Hct 35.2 L MCV 84.0 MCH 26.5 L MCHC 31.5 L RDW 16.0 H RDW Differential 49.1 H Plt Count 275 MPV 8.6 Immature Gran % (Auto) 0.200 Neut % (Auto) 67.8 Lymph % (Auto) 25.4 Harper % (Auto) 5.6 Eos % (Auto) 0.8 Baso % (Auto) 0.2 Absolute Neuts (auto) 9.0 H Absolute Lymphs (auto) 3.38 Total Counted Not Reportable Sodium 139 Potassium 3.9 Chloride 105 Carbon Dioxide 26.0 Anion Gap 8 BUN 10 Creatinine 0.55 L Estim Creat Clear Calc 143.55 Est GFR (MDRD) Af Amer 200 Est GFR (MDRD) Non-Af 165 BUN/Creatinine Ratio 18.2 Glucose 80 Calcium 7.6 L Total Bilirubin 0.40 AST 6 L ALT 15 Alkaline Phosphatase 67 Ammonia Troponin I < 0.02 Total Protein 5.8 L Albumin 2.6 L Globulin 3.2 Albumin/Globulin Ratio 0.8 L Vitamin B12 Folate TSH Free T4 Free T3 pg/dL RPR 07/12/17 07/12/17 07:40 13:09 WBC RBC Hgb Hct MCV MCH MCHC RDW RDW Differential Plt Count MPV Immature Gran % (Auto) Neut % (Auto) Lymph % (Auto) Harper % (Auto) Eos % (Auto) Baso % (Auto) Absolute Neuts (auto) Absolute Lymphs (auto) Total Counted Sodium Potassium Chloride Carbon Dioxide Anion Gap BUN Creatinine Estim Creat Clear Calc Est GFR (MDRD) Af Amer Est GFR (MDRD) Non-Af BUN/Creatinine Ratio Glucose Calcium Total Bilirubin AST ALT Alkaline Phosphatase Ammonia Troponin I Pending Total Protein Albumin Globulin Albumin/Globulin Ratio Vitamin B12 Folate TSH Free T4 0.90 Free T3 pg/dL 1.9 L RPR Current Medications Generic Name Dose Route Start Last Admin Trade Name Freq PRN Reason Stop Dose Admin Albuterol Sulfate 2.5 mg 07/12/17 00:43 Ventolin Aerosols INHALATION Q4H PRN SOB &/OR WHEEZING Albuterol Sulfate 2.5 mg 07/12/17 00:45 07/12/17 12:51 Ventolin Aerosols INHALATION 2.5 mg Q6HWA.RT TOMASA Administration Amitriptyline HCl 100 mg 07/12/17 22:00 Elavil PO QHS TOMASA Budesonide 0.5 mg 07/12/17 00:45 07/12/17 07:12 Pulmicort Aerosol INHALATION 0.5 mg Q12H.RT TOMASA Administration Divalproex Sodium 250 mg 07/12/17 06:00 07/12/17 06:53 Depakote Er PO 250 mg TID TOMASA Administration Famotidine 20 mg 07/12/17 10:00 07/12/17 10:20 Pepcid PO 20 mg DAILY TOMASA Administration Gabapentin 800 mg 07/12/17 10:00 07/12/17 10:20 Neurontin PO 800 mg 4X/DAY TOMASA Administration Sodium Chloride 1,000 mls @ 100 mls/hr 07/12/17 00:19 07/12/17 11:03 IV 100 mls/hr .Q10H TOMASA Administration Pantoprazole Sodium 40 mg 07/12/17 10:00 07/12/17 10:21 Protonix PO 40 mg DAILY TOMASA Administration Propranolol HCl 10 mg 07/12/17 10:00 07/12/17 10:21 Inderal PO 10 mg BID TOMASA Administration Quetiapine Fumarate 25 mg 07/12/17 00:19 Seroquel PO TID PRN PRN ANXIETY Sodium Chloride 5 - 30 ml 07/12/17 01:12 IV UD PRN SALINE FLUSH Sucralfate 1 gm 07/12/17 07:00 07/12/17 10:22 Carafate PO 1 gm 1HR_ACHS TOMASA Administration MRI reviewed, chronic right temporal encephalomalacia, no acute, unchanged compared to MRI from 08/30
[2017-07-12] MEDS: Divalproex (ER) 500 MG Tablet 1000 MG PO (14:50)
[2017-07-12] MEDS: Acetaminophen 325 MG Tablet 650 MG PO (14:51)
--- NOTE | 2017-07-12 17:02 | CASEMGMT ---
Face to Face with patient for initial transition planning/care coordination assessment. JULIETTE SHARP introduced self and role at [facility], voices understanding and consents to assessment at this time. Pt is sleeping in bed s/p MRI in no distress at this time. Care providers, pharmacy, and demographics verified. See attached link. voices no further concerns/needs at this time. Advised to ask for CM if any further questions/concerns/needs arise, voices understanding. CM to follow for any further discharge planning/needs. PL[place] JULIETTE SHARP
[2017-07-12] MEDS: Amitriptyline 100 MG Tablet PO (22:35)
[2017-07-13] VITALS (10 sets, daily range): BP systolic 127–150; BP diastolic 78–93; PULSE 76–90; RESP 15–18; TEMP 36.7–36.8; O2SAT 93–97
[2017-07-13] MEDS: Acetaminophen 325 MG Tablet 650 MG PO (04:50)
[2017-07-13] MEDS: Sucralfate 1 GM Tablet PO ×2 (06:57→11:29)
[2017-07-13] MEDS: Albuterol 2.5 MG/3 ML VIAL.NEB. INHALATION (07:36)
[2017-07-13] MEDS: Budesonide Respules 0.5 MG/2 ML AMPUL.NEB. INHALATION (07:36)
[2017-07-13] MEDS: 0.9% Normal Saline 1,000 ML 100 ML IV (08:30)
[2017-07-13] MEDS: Divalproex (ER) 500 MG Tablet 1000 MG PO (08:33)
[2017-07-13] MEDS: Gabapentin 800 MG Tablet PO (08:34)
[2017-07-13] MEDS: Famotidine 20 MG Tablet PO (08:35)
[2017-07-13] MEDS: Pantoprazole Sodium 40 MG Tablet PO (08:35)
[2017-07-13] MEDS: Propranolol 10 MG Tablet PO (08:36)
--- NOTE | 2017-07-13 10:20 | PCM.PROGNOTE ---
Subjective: Patient is a 56-year-old male with a past medical history of traumatic brain injury, bipolar disorder, COPD, hypertension and GERD who presented to the emergency department at [facility] on 07/11/2017 after becoming unresponsive while riding in a car with his . Prior to becoming unconscious he was making inappropriate comments just prior to losing consciousness. His stated he had rhythmic shaking of his arms and legs but did not bite his tongue or have any urinary or fecal incontinence. He has no history of seizures. Lactic acid in the emergency room was elevated at 3.4 but a recheck was 1.3. He was started on Depakote 3 times daily. MRI of the brain showed no acute findings. CTA of the head and neck were unremarkable. EEG was canceled for an unknown reason. There is a draft of a consult from Dr. Nguyen but, no recommendations. Pt usually sees Dr. Gillespie. No seizures since admission. - Physical Exam General: Alert, Cooperative, No apparent distress HEENT: Atraumatic, PERRLA, EOMI, Normocephalic Oral: Moist Mucosa Neck: Supple, No JVD, Trachea Midline Lungs: Clear to auscultation, No rhonchi, No wheeze, No rales, Diminished Cardiovascular: Regular rate, Regular Rhythm, No Ectopic Activity, No Gallop Abdomen: Bowel Sounds Present, Soft, Non Tender, Non-Distended Extremities: No edema Skin: No rashes Neurological: Cranial nerves II-XII grossly intact, Neuro grossly intact Vital Signs Temp Pulse Resp BP Pulse Ox 98.1 F 81 16 150/85 H 96 07/13/17 03:45 07/13/17 07:36 07/13/17 07:36 07/13/17 06:52 07/13/17 07:36 Oxygen Flow Rate 2 Oxygen Delivery Method Nasal Cannula Weight: 162 lb 7.691 oz Body Mass Index (BMI) 25.0 Orthostatic Vital Signs Start: 07/12/17 08:00 Freq: q24h Status: Active Protocol: Activity Type Activity Date Activity User E-Sign Co-Sign Detail Recorded Client Recorded Date Recorded By Document 07/13/17 06:52 [facility] [id number] 07/13/17 06:55 LSS 07/13/17 06:52 Orthostatic Vitals Standing -Blood Pressure (90/60-120/80 mm Hg) 139/93 H -Extremity Use Right Arm -Pulse Rate (60-100 beats/min) 77 Sitting -Blood Pressure (90/60-120/80 mm Hg) 141/91 H -Extremity Use Right Arm -Pulse Rate (60-100 beats/min) 76 Lying -Blood Pressure (90/60-120/80 mm Hg) 150/85 H -Extremity Use Right Arm -Pulse Rate (60-100 beats/min) 80 Intake and Output for Last 24 Hours 07/11/17 07/12/17 07/13/17 23:59 23:59 23:59 Intake Total 1937 1433 / 1433 Output Total 0 / 0 Balance 1937 1433 / 1433 Laboratory Tests Past 24 Hrs 07/12/17 13:09 Troponin I < 0.02 Assessment/Plan Impressions 1. Transient altered mental status/suspected seizure. Possibly related to TBI in the past. MRI in August of 2016 showed diffuse gliosis and encephalomalacia in the right temporal lobe extending into the frontal parietal region 2. hx of TBI - follows with Dr. Gillespie. No hx of seizure 3. COPD with moderate to severe large airways obstruction with increased RV and decreased DLCO and no significant response to bronchodilators 4. LACEY on CPAP - review of compliance with CPAP from May shows that in a period of 14 days he used the CPAP 1 day for > 4 hours and 2 days for < 4 hours. In 14 days he used the CPAP for only 9 hours. States he recently changed to a nasal unit because he felt as though he was suffocating with the full mask 5. Bipolar disorder 6. Nicotine dependence 7. Necrotic pneumonia vs mass in the right middle lobe in August 2016 - transferred to [facility] 8. Migraine cephalgia 9. spinal stenosis 10. GERD He is seeing [facility] for pulmonary follow up and Dr. Gillespie for neurology Moderate to severe COPD and still smoking Await Dr. Nguyen's consult Continue current care Code Visit Inpatient E&M: 64468 Subs Hosp L2
--- NOTE | 2017-07-13 11:02 | PCM.DC ---
- Discharge Diagnoses Current Active Problems: Current Active and Chronic Problems (Last Updated 06/02/17 @ 11:00 by Clarisse Young) Seizure (Acute) Reason(s) for Visit for Discharge Instructions: new onset seizure disorder You will use the following diet at home:: Other - resume previous diet Your food should be the consistency of: Regular Your liquids should be the consistency of: Regular/Thin Discharge Activity: Return to Normal Activity, May Not Drive, - - no swimming by yourself, no driving, no climbing ladders or getting on a roof, no operating dangerous equipment without someone with you. In other words....do NOT do anything potentially dangerous until you have been seizure free for at least 6 month......no nina diving, bungie jumping, etc. Call your doctor if you observe: Fever of 101 or Higher, - - excessive somnolence, breakthrough seizures Instructions: Epilepsy: How Seizures Affect the Body, Treating Epilepsy: Medications, Epilepsy: Safety During a Seizure Additional Instructions: You have actually been on 2 medications that treat seizures, Valproic acid (also called Depakote) and Gabapentin ( also called Neutontin). Dr. Nguyen has changed the Depakote ER from 250 mg 3 times a day to 1,000 mg ONCE a day. Depakote ER is a long acting medication and can be dosed once a day. Call Dr. Gillespie's office tomorrow and schedule and appt for 2-4 weeks. I have given you a requisition to get some lab work in 1 week and the results will be sent to Dr. Gillespie. Pending Tests on Discharge: none Allergies/Adverse Reactions: Allergies dextromethorphan HBr [From NyQuil] Allergy (Verified 07/11/17 17:43) Other doxylamine [From NyQuil] Allergy (Verified 07/11/17 17:43) Other pseudoephedrine HCl [From NyQuil] Allergy (Verified 07/11/17 17:43) Other sertraline HCl [From Zoloft] Adverse Reaction (Verified 07/11/17 17:43) Diarrhea Medications to take at Discharge Omeprazole [Prilosec] 40 mg PO DAILY 05/19/13 Albuterol Inhaler [Ventolin Hfa] 2 puff INHALATION Q4H PRN PRN 09/11/16 Albuterol Sulfate 5 mg IH PRN PRN 09/11/16 Amitriptyline HCl [Elavil] 100 mg PO QHS 09/11/16 Multivitamin [Multiple Vitamins] 1 ea PO DAILY 09/11/16 Fluticasone/Salmeterol [Advair 100-50 Diskus] 1 puff INHALATION BID 12/05/16 Quetiapine Fumarate [Seroquel] 25 mg PO TID PRN PRN 12/05/16 Ranitidine [Zantac] 150 mg PO QHS 12/05/16 Gabapentin [Neurontin] 800 mg PO 4X/DAY 04/14/17 Propranolol HCl [Inderal (Beta Danielle)] 10 mg PO BID 07/11/17 Sucralfate [Carafate] 1 g PO 4X/DAY 07/11/17 Divalproex Sodium [Depakote ER] 1,000 mg PO DAILY #60 tab.er.24h 07/13/17 The following prescriptions were given: Divalproex Sodium [Depakote ER] 1,000 mg PO DAILY #60 tab.er.24h Primary Care Physician: Priscilla Nixon MD [Primary Care Provider] - Please follow up with your Primary Care Physician in: 7-10 days Please Follow Up With: Donna Gillespie MD When: 2-4 weeks Proposed Discharge Date: 07/13/17
--- NOTE | 2017-07-13 11:24 | DS.PCM_ITS ---
Discharge Date and Diagnosis Date of Admission: 07/11/17 Date of Discharge: 07/13/17 - Primary Discharge Diagnosis Active and Suspected Problems (Last Updated 06/02/17 @ 11:00 by Clarisse Young ) Seizure (Acute) new onset Seizure disorder (Acute) Hyperammonemia (Acute) - Secondary Discharge Diagnosis Chronic Problems (Last Updated 06/02/17 @ 11:00 by Clarisse Young) Diastolic dysfunction (Chronic) Stage 1 Depression (Chronic) LACEY (obstructive sleep apnea) (Chronic) - on CPAP but has been non-compliant Lung nodule (Chronic) Sleep-related breathing disorder (Chronic) Bipolar disorder (Chronic) GERD (gastroesophageal reflux disease) (Chronic) COPD (chronic obstructive pulmonary disease) (Chronic) Encephalopathy (Chronic) Traumatic brain injury (Chronic) Spinal stenosis (Chronic) Tobacco abuse (Chronic) Migraine (Chronic) Hospital Course and Treatment Imaging Results: Clinical Impression(s) from Imaging Studies Brain CT 07/11/17 17:55 IMPRESSION: Negative for acute intracranial findings. Negative for hemorrhage, hematoma or mass density. Negative for early demarcation of a new nonhemorrhagic infarct zone. 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 Electronically Signed: Maria C Nevarez MD at 18:40 EST , Service support , Brain MRI 07/12/17 11:30 IMPRESSION: An old infarct in the right middle cerebral artery distribution. No acute findings in the brain Electronically Signed: Paul Lucas, at 15:20 EST Tel , Service support , Head CTA 07/12/17 11:32 IMPRESSION: The study is within normal limits Electronically Signed: Paul Lucas, at 13:31 EST Tel , Service support , Neck CTA 07/12/17 11:33 IMPRESSION: The study is within normal limits Electronically Signed: Paul Lucas, at 13:31 EST Tel , Service support , Laboratory Results - last 24 hr 07/12/17 13:09 Troponin I < 0.02 Laboratory Tests 07/11/17 07/11/17 07/11/17 17:47 17:52 17:52 WBC 16.7 H RBC 4.74 Hgb 12.7 L Hct 39.3 L MCV 82.9 MCH 26.8 L MCHC 32.3 RDW 15.9 H RDW Differential 47.6 H Plt Count 338 MPV 9.1 Immature Gran % (Auto) 0.300 Neut % (Auto) 81.3 H Lymph % (Auto) 12.2 L Mccracken % (Auto) 5.9 Eos % (Auto) 0.2 Baso % (Auto) 0.1 Absolute Neuts (auto) 13.6 H Absolute Lymphs (auto) 2.04 Total Counted Not Reportable PT 13.7 INR 1.1 APTT 30.3 Sodium Potassium Chloride Carbon Dioxide Anion Gap BUN Creatinine Estim Creat Clear Calc Est GFR (MDRD) Af Amer Est GFR (MDRD) Non-Af BUN/Creatinine Ratio Glucose Lactic Acid Calcium Total Bilirubin AST ALT Alkaline Phosphatase Ammonia Troponin I Total Protein Albumin Globulin Albumin/Globulin Ratio Lipase Folate TSH Free T4 Free T3 pg/dL Urine Color Urine Clarity Urine pH Ur Specific [place] Urine Protein Urine Glucose (UA) Urine Ketones Urine Occult Blood Urine Nitrite Urine Bilirubin Urine Urobilinogen Ur Leukocyte Esterase Urine RBC Urine WBC Ur Squamous Epith Cells Urine Bacteria Urine Mucus Urine Opiates Screen Urine Methadone Screen Ur Barbiturates Screen Ur Phencyclidine Scrn Ur Amphetamines Screen U Methamphetamin-MDMA U Benzodiazepines Scrn Urine Cocaine Screen U Cannabinoids Screen Ur Drug Screen Comment Ethyl Alcohol POC Glucose 79 07/11/17 07/11/17 07/11/17 17:52 17:52 18:02 WBC RBC Hgb Hct MCV MCH MCHC RDW RDW Differential Plt Count MPV Immature Gran % (Auto) Neut % (Auto) Lymph % (Auto) Mccracken % (Auto) Eos % (Auto) Baso % (Auto) Absolute Neuts (auto) Absolute Lymphs (auto) Total Counted PT INR APTT Sodium 137 Potassium 4.3 Chloride 102 Carbon Dioxide 26.0 Anion Gap 9 BUN 15 Creatinine 0.97 Estim Creat Clear Calc 84.23 Est GFR (MDRD) Af Amer 104 Est GFR (MDRD) Non-Af 86 BUN/Creatinine Ratio 15.5 Glucose 84 Lactic Acid 3.4 H Calcium 8.7 Total Bilirubin 0.50 AST 8 L ALT 19 Alkaline Phosphatase 89 Ammonia Troponin I < 0.02 Total Protein 7.4 Albumin 3.6 Globulin 3.8 Albumin/Globulin Ratio 0.9 Lipase 68 L Folate TSH Free T4 Free T3 pg/dL Urine Color Urine Clarity Urine pH Ur Specific [place] Urine Protein Urine Glucose (UA) Urine Ketones Urine Occult Blood Urine Nitrite Urine Bilirubin Urine Urobilinogen Ur Leukocyte Esterase Urine RBC Urine WBC Ur Squamous Epith Cells Urine Bacteria Urine Mucus Urine Opiates Screen Urine Methadone Screen Ur Barbiturates Screen Ur Phencyclidine Scrn Ur Amphetamines Screen U Methamphetamin-MDMA U Benzodiazepines Scrn Urine Cocaine Screen U Cannabinoids Screen Ur Drug Screen Comment Ethyl Alcohol < 3.0 POC Glucose 07/11/17 07/11/17 07/11/17 20:51 20:51 22:12 WBC RBC Hgb Hct MCV MCH MCHC RDW RDW Differential Plt Count MPV Immature Gran % (Auto) Neut % (Auto) Lymph % (Auto) Mccracken % (Auto) Eos % (Auto) Baso % (Auto) Absolute Neuts (auto) Absolute Lymphs (auto) Total Counted PT INR APTT Sodium Potassium Chloride Carbon Dioxide Anion Gap BUN Creatinine Estim Creat Clear Calc Est GFR (MDRD) Af Amer Est GFR (MDRD) Non-Af BUN/Creatinine Ratio Glucose Lactic Acid 1.3 Calcium Total Bilirubin AST ALT Alkaline Phosphatase Ammonia Troponin I Total Protein Albumin Globulin Albumin/Globulin Ratio Lipase Folate TSH Free T4 Free T3 pg/dL Urine Color Yellow Urine Clarity Clear Urine pH 8.0 Ur Specific [place] 1.015 Urine Protein Negative Urine Glucose (UA) Normal Urine Ketones 5 H Urine Occult Blood Negative Urine Nitrite Negative Urine Bilirubin Negative Urine Urobilinogen Normal Ur Leukocyte Esterase 25 H Urine RBC 0 SEEN Urine WBC 0-5 SEEN Ur Squamous Epith Cells 0 SEEN Urine Bacteria 0 SEEN Urine Mucus 0 SEEN Urine Opiates Screen NEGATIVE Urine Methadone Screen NEGATIVE Ur Barbiturates Screen NEGATIVE Ur Phencyclidine Scrn NEGATIVE Ur Amphetamines Screen NEGATIVE U Methamphetamin-MDMA NEGATIVE U Benzodiazepines Scrn NEGATIVE Urine Cocaine Screen NEGATIVE U Cannabinoids Screen NEGATIVE Ur Drug Screen Comment Ethyl Alcohol POC Glucose 07/12/17 07/12/17 07/12/17 00:52 00:52 00:52 WBC RBC Hgb Hct MCV MCH MCHC RDW RDW Differential Plt Count MPV Immature Gran % (Auto) Neut % (Auto) Lymph % (Auto) Mccracken % (Auto) Eos % (Auto) Baso % (Auto) Absolute Neuts (auto) Absolute Lymphs (auto) Total Counted PT INR APTT Sodium Potassium Chloride Carbon Dioxide Anion Gap BUN Creatinine Estim Creat Clear Calc Est GFR (MDRD) Af Amer Est GFR (MDRD) Non-Af BUN/Creatinine Ratio Glucose Lactic Acid Calcium Total Bilirubin AST ALT Alkaline Phosphatase Ammonia 42.0 H Troponin I < 0.02 Total Protein Albumin Globulin Albumin/Globulin Ratio Lipase Folate 18.30 TSH 0.30 L Free T4 Free T3 pg/dL Urine Color Urine Clarity Urine pH Ur Specific [place] Urine Protein Urine Glucose (UA) Urine Ketones Urine Occult Blood Urine Nitrite Urine Bilirubin Urine Urobilinogen Ur Leukocyte Esterase Urine RBC Urine WBC Ur Squamous Epith Cells Urine Bacteria Urine Mucus Urine Opiates Screen Urine Methadone Screen Ur Barbiturates Screen Ur Phencyclidine Scrn Ur Amphetamines Screen U Methamphetamin-MDMA U Benzodiazepines Scrn Urine Cocaine Screen U Cannabinoids Screen Ur Drug Screen Comment Ethyl Alcohol POC Glucose 07/12/17 07/12/17 07/12/17 03:26 03:26 03:26 WBC 13.3 H RBC 4.19 L Hgb 11.1 L Hct 35.2 L MCV 84.0 MCH 26.5 L MCHC 31.5 L RDW 16.0 H RDW Differential 49.1 H Plt Count 275 MPV 8.6 Immature Gran % (Auto) 0.200 Neut % (Auto) 67.8 Lymph % (Auto) 25.4 Mccracken % (Auto) 5.6 Eos % (Auto) 0.8 Baso % (Auto) 0.2 Absolute Neuts (auto) 9.0 H Absolute Lymphs (auto) 3.38 Total Counted Not Reportable PT INR APTT Sodium 139 Potassium 3.9 Chloride 105 Carbon Dioxide 26.0 Anion Gap 8 BUN 10 Creatinine 0.55 L Estim Creat Clear Calc 143.55 Est GFR (MDRD) Af Amer 200 Est GFR (MDRD) Non-Af 165 BUN/Creatinine Ratio 18.2 Glucose 80 Lactic Acid Calcium 7.6 L Total Bilirubin 0.40 AST 6 L ALT 15 Alkaline Phosphatase 67 Ammonia Troponin I < 0.02 Total Protein 5.8 L Albumin 2.6 L Globulin 3.2 Albumin/Globulin Ratio 0.8 L Lipase Folate TSH Free T4 Free T3 pg/dL Urine Color Urine Clarity Urine pH Ur Specific [place] Urine Protein Urine Glucose (UA) Urine Ketones Urine Occult Blood Urine Nitrite Urine Bilirubin Urine Urobilinogen Ur Leukocyte Esterase Urine RBC Urine WBC Ur Squamous Epith Cells Urine Bacteria Urine Mucus Urine Opiates Screen Urine Methadone Screen Ur Barbiturates Screen Ur Phencyclidine Scrn Ur Amphetamines Screen U Methamphetamin-MDMA U Benzodiazepines Scrn Urine Cocaine Screen U Cannabinoids Screen Ur Drug Screen Comment Ethyl Alcohol POC Glucose 07/12/17 07/12/17 07/12/17 07:40 07:40 13:09 WBC RBC Hgb Hct MCV MCH MCHC RDW RDW Differential Plt Count MPV Immature Gran % (Auto) Neut % (Auto) Lymph % (Auto) Mccracken % (Auto) Eos % (Auto) Baso % (Auto) Absolute Neuts (auto) Absolute Lymphs (auto) Total Counted PT INR APTT Sodium Potassium Chloride Carbon Dioxide Anion Gap BUN Creatinine Estim Creat Clear Calc Est GFR (MDRD) Af Amer Est GFR (MDRD) Non-Af BUN/Creatinine Ratio Glucose Lactic Acid Calcium Total Bilirubin AST ALT Alkaline Phosphatase Ammonia Troponin I < 0.02 < 0.02 Total Protein Albumin Globulin Albumin/Globulin Ratio Lipase Folate TSH Free T4 0.90 Free T3 pg/dL 1.9 L Urine Color Urine Clarity Urine pH Ur Specific [place] Urine Protein Urine Glucose (UA) Urine Ketones Urine Occult Blood Urine Nitrite Urine Bilirubin Urine Urobilinogen Ur Leukocyte Esterase Urine RBC Urine WBC Ur Squamous Epith Cells Urine Bacteria Urine Mucus Urine Opiates Screen Urine Methadone Screen Ur Barbiturates Screen Ur Phencyclidine Scrn Ur Amphetamines Screen U Methamphetamin-MDMA U Benzodiazepines Scrn Urine Cocaine Screen U Cannabinoids Screen Ur Drug Screen Comment Ethyl Alcohol POC Glucose Dr. Jesus Nguyen-neurology Operations: None Procedures: 2-D Echocardiogram - EF 65%. Stage I diastolic dysfunction. Summary of Care Provided: Patient is a 56-year-old male with a past medical history of traumatic brain injury, bipolar disorder, COPD, hypertension and GERD who presented to the emergency department at [facility] on 07/11/2017 after becoming unresponsive while riding in a car with his . Prior to becoming unconscious he was making inappropriate comments just prior to losing consciousness. He has a hx of TBI and BPD and he has been on Depakote for seizures and BPD stabilization. White blood cell count in the emergency room was elevated at 16.7 with 81% neutrophils likely secondary to stress/seizure. He is afebrile. Lactic acid was 3.4 but the second lactic acid was down to 1.3 and the lactic acidosis was likely secondary to seizure activity. His ammonia level is 42 and he is on Depakote. Serial cardiac enzymes were negative. CT brain in the emergency room showed no acute intracranial findings. There were mild involutional changes and it was not significantly different. Old CTs. MRI showed creased signal activity in the right temporoparietal region the site of the old traumatic brain injury. There were no acute findings. Was seen in consultation by Dr. Nguyen who adjusted the Depakote dose. He had no seizures while in the hospital. He was discharged with a prescription for Depakote ER 1000 mg daily. He will follow up with Dr. Vogel in 7-[address] Gillespie in 2-4 weeks. He was given a lab requisition to obtain a valproic acid level and ammonia 1 week. This note was generated with [employer] dictation software. It may contain incorrect words, spelling, and punctuation that were not noted in checking the note before signing. Discharge Activity: Return to Normal Activity, May Not Drive, - - no swimming by yourself, no driving, no climbing ladders or getting on a roof, no operating dangerous equipment without someone with you. In other words....do NOT do anything potentially dangerous until you have been seizure free for at least 6 month......no nina diving, bungie jumping, etc. Call your doctor if you observe: Fever of 101 or Higher, - - excessive somnolence, breakthrough seizures Home Medications: Medications to take at Discharge Omeprazole [Prilosec] 40 mg PO DAILY 05/19/13 Albuterol Inhaler [Ventolin Hfa] 2 puff INHALATION Q4H PRN PRN 09/11/16 Albuterol Sulfate 5 mg IH PRN PRN 09/11/16 Amitriptyline HCl [Elavil] 100 mg PO QHS 09/11/16 Multivitamin [Multiple Vitamins] 1 ea PO DAILY 09/11/16 Fluticasone/Salmeterol [Advair 100-50 Diskus] 1 puff INHALATION BID 12/05/16 Quetiapine Fumarate [Seroquel] 25 mg PO TID PRN PRN 12/05/16 Ranitidine [Zantac] 150 mg PO QHS 12/05/16 Gabapentin [Neurontin] 800 mg PO 4X/DAY 04/14/17 Propranolol HCl [Inderal (Beta Danielle)] 10 mg PO BID 07/11/17 Sucralfate [Carafate] 1 g PO 4X/DAY 07/11/17 Divalproex Sodium [Depakote ER] 1,000 mg PO DAILY #60 tab.er.24h 07/13/17 Following Prescrptions Were Given to Patient: Divalproex Sodium [Depakote ER] 1,000 mg PO DAILY #60 tab.er.24h Primary Care Physician: Priscilla Nixon MD [Primary Care Provider] - Please follow up with your Primary Care Physician in: 7-10 days Please Follow Up With: Donna Gillespie MD When: 2-4 weeks Patient Instructions: Epilepsy: How Seizures Affect the Body, Treating Epilepsy : Medications, Epilepsy: Safety During a Seizure Disposition: Home Minutes spent on discharge:: 30 Patient Condition:: Stable Meaningful Use Info Meaningful Use Diagnoses (Choose all that apply): None applicable Code Visit Inpatient E&M: 70842 Disch Hosp
[2017-07-14 08:48] LABS: Vitamin B12 970 pg/mL (211-911)
[2017-07-18 03:55] LABS: Rapid Plasmin Reagin (RPR) NONREACTIVE (NONREACTIVE)
== END 2017-07-13 12:27 | disposition home or self-care (01) | DRG 24 ==
LOC: ED 19:37 → PCU 23:30
PROVIDERS: Admitting Provider Internal Medicine; Emergency Provider Emergency Medicine; Family Provider Internal Medicine; PCP Internal Medicine; Visit Provider Internal Medicine
DX: G40.909 Epilepsy, unspecified, not intractable, without status epilepticus (principal); J44.9 Chronic obstructive pulmonary disease, unspecified; G93.49 Other encephalopathy; E72.20 Disorder of urea cycle metabolism, unspecified; I10 Essential (primary) hypertension; G43.909 Migraine, unspecified, not intractable, without status migrainosus; G47.33 Obstructive sleep apnea (adult) (pediatric); F31.9 Bipolar disorder, unspecified; K21.9 Gastro-esophageal reflux disease without esophagitis; F17.200 Nicotine dependence, unspecified, uncomplicated; Z79.899 Other long term (current) drug therapy; Z91.19 Patient's noncompliance with other medical treatment and regimen; Z87.01 Personal history of pneumonia (recurrent); Z87.820 Personal history of traumatic brain injury; Z86.73 Personal history of transient ischemic attack (TIA), and cerebral infarction without residual deficits
CPT/HCPCS: 36415; 70450; 70496; 70498; 70551; 80053; 80307; 80320; 81001; 82140; 82607; 82746; 82962; 83605; 83690; 84439; 84443; 84481; 84484; 85025; 85610; 85730; 86592; 93005; 93306; 94640; 99285; 99406; J7030; Q9967; A4216; G0480

== ENCOUNTER → 2017-07-29 15:37 | Outpatient (CLI) | payer MEDICAID, SELFPAY ==
[2017-07-29 17:10] LABS: Valproic Acid (Depakene) Level 54 ug/mL (50-100)
[2017-07-29 17:16] LABS: AST(SGOT) 11 U/L (15-37); Alanine Aminotransfer ALT/SGPT 19 U/L (16-61); Albumin, Serum 3.3 g/dL (3.2-5.0); Alkaline Phosphatase 82 U/L (45-117); Bilirubin, Direct < 0.05 mg/dL (0.00-0.30); Globulin 3.3 g/dL (2.2-4.2); Protein, Total 6.6 g/dL (6.4-8.2)
== END ==
PROVIDERS: Family Provider Internal Medicine; PCP Internal Medicine; Visit Provider Internal Medicine
DX: G40.909 Epilepsy, unspecified, not intractable, without status epilepticus (principal); Z51.81 Encounter for therapeutic drug level monitoring; Z79.899 Other long term (current) drug therapy
CPT/HCPCS: 36415; 80076; 80164; 82140

== ENCOUNTER → 2017-08-05 12:16 | Outpatient (CLI) | payer MEDICAID, SELFPAY ==
[2017-07-12 00:35] VITALS: BP 136/89
[2017-07-13 06:52] VITALS: BP 139/93; BP 141/91; BP 150/85
[2017-07-23 14:00] VITALS: BP 135/80; BMI 25.2
[2017-08-05 12:48] VITALS: PULSE 100; PULSE 101; PULSE 103; PULSE 106; PULSE 98; O2SAT 93; O2SAT 94; O2SAT 95; O2SAT 96; O2SAT 98
--- NOTE | 2017-08-05 14:41 | WT_ITS ---
PSN 6 Minute Walk Test - 6 Minute Walk Test 6 Minute Walk Test: 6 Minute Walk Test PSN:6-Minute Walk Test Start: 08/05/17 12: 47 Freq: Status: Active Protocol: [id number] Document 08/05/17 12:48 FR (Rec: 08/05/17 12:59 FR [id number]) 6 Minute Walk Test Date Performed 08/05/17 Time Performed 12:30 Height 5 ft 8 in Weight: 72.575 kg Weight in Pounds 160.[address]: Tammy Stone Assistive device used: None Pre-test Oxygen Delivery Method Room Air Pulse Ox (%) 96 Pulse Rate (60-100 beats/min) 103 H Dyspnea Meron Scale (0-10) 8 Exertion Meron Scale (6-20) 14 1st minute Oxygen Delivery Method Room Air Pulse Ox (%) 94 Pulse Rate (60-100 beats/min) 103 H 2nd minute Oxygen Delivery Method Room Air Pulse Ox (%) 94 Pulse Rate (60-100 beats/min) 101 H 3rd minute Oxygen Delivery Method Room Air Pulse Ox (%) 93 Pulse Rate (60-100 beats/min) 101 H 4th minute Oxygen Delivery Method Room Air Pulse Ox (%) 95 Pulse Rate (60-100 beats/min) 100 5th minute Oxygen Delivery Method Room Air Pulse Ox (%) 93 Pulse Rate (60-100 beats/min) 98 6th minute Oxygen Delivery Method Room Air Pulse Ox (%) 94 Pulse Rate (60-100 beats/min) 98 Dyspnea Meron Scale (0-10) 7 Exertion Meron Scale (6-20) 14 Post-test Oxygen Delivery Method Room Air Pulse Ox (%) 98 Pulse Rate (60-100 beats/min) 106 H Full Laps Walked 18 Partial Lap, Number of Tiles Walked 22 Total Distance Walked (ft) 1084 - Interpretation Interpretation: The patient was able to ambulate 1084 feet over the course of 6 minutes on room air with no assistive devices. The patient did have persistent tachycardia throughout testing, but no significant desaturations were noted. These findings are consistent with deconditioning. - Recommendations Recommendations: No supplemental oxygen is indicated at this time.
== END ==
PROVIDERS: Family Provider Internal Medicine; PCP Internal Medicine; Visit Provider Nurse Practitioner Acute Care
DX: R06.02 Shortness of breath (principal)
CPT/HCPCS: 94618

== ENCOUNTER → 2017-09-24 12:28 | Outpatient (CLI) | payer MEDICAID, SELFPAY ==
--- NOTE | 2017-09-24 12:29 | STE_ITS ---
Reason For Study: DYSPNEA/ SOB Stress Results Protocol: Dobutamine Maximum Predicted HR: 165 bpm Target HR: 140 bpm% Maximum Predicted HR: 81 % DurationHeart Rate Stage (mm:ss) (bpm) BPDos eComment BASELINE 93 141/99 STAGE 1 3:30 92 127/7910.00 STAGE 2 3:00 10 4 154/6120.000.25 MG ATROPINE STAGE 3 3:00 11 7 152/8430.000.25 MG ATROPINE STAGE 4 5:32 13 3 130/9540.000.5 MG ATROPINE RECOVERY 100 127/8 5 Stress Duration: 15:02 mm:ss Maximum Stress HR: 133 bpm Baseline Echocardiogram Findings The estimated ejection fraction is 65 %. Stress Echo Wall motion Data Resting WMIntermediate WMStress WM Resting Wall Motion Wall Motion Stress No regional wall motion No regional wall motion abnormalities noted. abnormalities noted. EKG Data Normal intervals are noted. The patient was titrated from 10 mcg to a maximum of 40 mcg of dobutamine during the stress. The maximum heart rate attained was 134 beats per minute. This was 81% of maximum predicted heart rate. During dobutamine infusion, there were no ST or T wave changes noted to suggest ischemia. No arrhythmias noted. No clinical angina was noted. Interpretation Summary The estimated ejection fraction is 65 %. Normal adequate dobutamine echocardiogram. Negative for ischemia by EKG and echocardiographic criteria. No anginal symptoms noted. No arrhythmias noted. Appropriate blood pressure response to dobutamine. Test terminated due to attainment of target heart rate. Final LVEF is 75%. Ordering Physician: Gallo Fitzpatrick Referring Physician: Gallo Fitzpatrick Performed By: Yu Scruggs RDCS
== END ==
PROVIDERS: Family Provider Internal Medicine; PCP Internal Medicine; Visit Provider Internal Medicine Cardiovascular Disease
DX: R06.02 Shortness of breath (principal)
CPT/HCPCS: 93017; 93350; A4216

== ENCOUNTER → 2017-10-16 13:50 | Outpatient (CLI) | payer MEDICAID, SELFPAY ==
[2017-07-12 00:35] VITALS: BP 136/89
[2017-07-13 06:52] VITALS: BP 139/93; BP 141/91; BP 150/85
[2017-07-23 14:00] VITALS: BP 135/80; BMI 25.2
--- NOTE | 2017-10-17 08:04 | PFTCOMP ---
COMPLETE PULMONARY FUNCTION TEST INTERPRETATION Brief HPI: Patient is a 57 year old male, currently under the care of Tammy Stone, who presents to [facility] for complete pulmonary function tests secondary to diagnosis of COPD. Respiratory therapist reports good effort and reproducible results. Interpretation: Forced expiration spirometry shows a severe large airways obstructive ventilatory defect with an FEV1 of 41% predicted. There is no significant bronchodilator response by strict ATS criteria. Spirograms are of good quality and plateau slowly, indicating slowly emptying areas of the lungs. The respiratory flow volume loop shows decreased expiratory flow rates at all lung volumes consistent with airway obstruction. Lung volumes by body plethysmography show a normal total lung capacity at 6.07 L, 97% predicted. All other lung volumes are within normal limits. Diffusion capacity by carbon monoxide is decreased at 41% predicted. The airway resistance is elevated. Compared to previous pulmonary function tests from 01/13/2017, there has been a significant reduction in FEV1 and DLCO. Impression: Irreversible severe large airways obstructive ventilatory defect with a symmetric reduction diffusing capacity. There has been significant worsening compared to previous study.
--- NOTE | 2017-10-17 08:41 | PFTCOMP_ITS ---
COMPLETE PULMONARY FUNCTION TEST INTERPRETATION Brief HPI: Patient is a 57 year old male, currently under the care of Tammy Stone, who presents to [facility] for complete pulmonary function tests secondary to diagnosis of COPD. Respiratory therapist reports good effort and reproducible results. Interpretation: Forced expiration spirometry shows a severe large airways obstructive ventilatory defect with an FEV1 of 41% predicted. There is no significant bronchodilator response by strict ATS criteria. Spirograms are of good quality and plateau slowly, indicating slowly emptying areas of the lungs. The respiratory flow volume loop shows decreased expiratory flow rates at all lung volumes consistent with airway obstruction. Lung volumes by body plethysmography show a normal total lung capacity at 6.07 L , 97% predicted. All other lung volumes are within normal limits. Diffusion capacity by carbon monoxide is decreased at 41% predicted. The airway resistance is elevated. Compared to previous pulmonary function tests from 01/13/2017, there has been a significant reduction in FEV1 and DLCO. Impression: Irreversible severe large airways obstructive ventilatory defect with a symmetric reduction diffusing capacity. There has been significant worsening compared to previous study.
== END ==
PROVIDERS: Family Provider Internal Medicine; PCP Internal Medicine; Visit Provider Nurse Practitioner Acute Care
DX: R06.02 Shortness of breath (principal)
CPT/HCPCS: 94060; 94726; 94729

== ENCOUNTER 2017-10-30 17:58 | Emergency (ER) | payer MEDICAID, SELFPAY ==
[2017-10-30 18:00] VITALS: BP 117/79; PULSE 118; RESP 20; TEMP 38.1; O2SAT 94; BMI 25.0
[2017-10-30 18:07] VITALS: PULSE 113; RESP 18; O2SAT 92
--- NOTE | 2017-10-30 18:12 | EKG12_ITS ---
Test Reason : DYSRHYTHMIA Blood Pressure : / mmHG Vent. Rate : 114 BPM Atrial Rate : 114 BPM P-R Int : 168 ms QRS Dur : 110 ms QT Int : 344 ms P-R-T Axes : 069 086 065 degrees QTc Int : 474 ms Sinus tachycardia Poor R wave progression Reconfirmed by ANGELIQUE ARBOLEDA, STEVEN ([id number]), magazine editor HONG ELIAS ([id number]) on 11/04/2017 2:15:54 PM Referred By: DIAZ Confirmed By:STEVEN MERINO MD
--- NOTE | 2017-10-30 18:14 | CT_ITS ---
STUDY: CT BRAIN WITHOUT CONTRAST REASON FOR EXAM: Male, 57 years old. Possible seizure activity. Found on the ground RADIATION DOSAGE (If Supplied By Facility): CTDIvol = ( 44.99 ) mGy, DLP = ( 829.85 ) mGycm TECHNIQUE: Transaxial CT imaging of the brain was performed without administration of intravenous contrast material. Individualized dose optimization techniques were used for this CT. COMPARISON: 07/12/2017 FINDINGS: Normal soft tissue structures. Normal calvarium. There is mild cerebral atrophy with widening of the extra-axial spaces and ventricular dilatation. There are areas of decreased attenuation within the white matter tracts of the supratentorial brain, consistent with microvascular disease changes. Normal basal ganglia and thalami. Normal brainstem. Normal cerebellum. Prior area of infarct and encephalomalacia in the right parietal lobe. There is no intracranial hemorrhage. There are no findings of an acute ischemic infarction. Normal visualized paranasal sinuses. CT/Brain/Head without Contrast IMPRESSION: Chronic involutional changes of the brain. Electronically Signed: Adarsh Edmond DO at 18:50 EDT Tel , Service support ,
--- NOTE | 2017-10-30 18:17 | ED.DCSUM_ITS ---
- ER Visit Summary Date of Service: 10/30/17 Chief Complaint: [] Seizure outside in heat cutting lawn history of seizures History of Present Illness: The patient is a 57 M [] history of seizure disorder believe he is on Depakote he felt fine today he was outside cutting his lawn hour felt a seizure coming on and he believes he laid himself down into the grass is was outside with his son paramedics were called on arrival he was awake alert moving all 4 extremities complaining of having had a seizure the patient denies head neck chest or abdominal pain no fever no cough no trauma no injury from this event, he has 2 or 3 seizures a year and he has been maintained on the Depakote long-standing there is been no adjustments to his medicines necessary he does not recall who he sees for his seizures he does recall having a prior workup and believes the seizures are related to an injury to his head 10 years ago Physical Examination: [] Awake alert oriented ?3 vital signs are within normal range his temperature is 100.6 he appears quite diaphoretic his HEENT exam has some scattered abrasions to his face but no pain his neck is supple his lungs are clear heart tones are normal the abdomen soft nontender upper lower extremities unremarkable neurologically he is awake alert moving all 4 cranial nerves motor sensory cerebellar function are normal Test Results: [] Emergency Department Course and Treatment: [] Valuation the patient's CT and labs are all generally unremarkable except his UA shows 25 WBCs he has no UTI symptoms no history of the above, his valproic acid level is 40 on reevaluation again he states he feels fine he wants to go home is received IV fluids we did give him oral Depakote, urine culture, oral Cipro, he will be discharged on oral Cipro continue his valproic acid and is to follow-up with his family doctor his neurologist he cannot remember that as he is referred to Dr. Nguyen and return for change in symptoms he will also avoid the heat and again he is feeling comfortable he is much better he wants to go home Treatment Plan: [] Disposition: [] Home stable Impression: [] Seizure history of same, subtherapeutic Depakote level, UTI, heat exposure, This note was generated with [employer] software. It may contain incorrect words, spelling, and punctuation that were not noted in review of the chart prior to signing ED Disposition - Plan for ED Patient: Chief Complaint: Seizure Referrals: Priscilla Nixon MD [Primary Care Provider] -
[2017-10-30 18:28] LABS: Absolute Lymphocyte Count 3.26 X10^3/ul (0.83-4.51); Absolute Neutrophil Count 5.7 X10^3/uL (2.0-7.7); Basophil# 0.01 X10^3/uL; Basophil% 0.1 % (0-1); Eosinophil# 0.15 X10^3/uL; Eosinophils% 1.6 % (0-5); Lymphocyte # 3.26 X10^3/ul (4.0); Lymphocyte % 34.1 % (19-41); Mean Corp Hgb Conc 31.7 g/gl (32-36); Mean Corpuscular Hgb 25.8 pg (27.0-32.0); Mean Corpuscular Volume 81.3 fL (80-94); Mean Platelet Vol. 9.3 fl (6.2-12.0); Monocyte# 0.43 X10^3/uL; Monocyte% 4.5 % (0-10); Neutrophil # 5.69 X10^3/uL (2.7-7.7); Neutrophil % 59.5 % (47-70); Platelet Count 344 K/mm3 (150-450); RBC Distribution Width CV 18.3 % (11.6-14.6); Red Blood Count 5.04 M/mm3 (4.6-6.2); White Blood Count 9.6 K/mm3 (4.4-11.0)
[2017-10-30] MEDS: 0.9% Normal Saline 1,000 ML 999 ML IV (18:30)
[2017-10-30 18:35] LABS: POSITIVE COUNT NO; POSITIVE DIFFERENTIAL NO; POSITIVE MORPHOLOGY NO
--- NOTE | 2017-10-30 18:35 | RAD_ITS ---
STUDY: X-RAY CHEST REASON FOR EXAM: Male, 57 years old. Collapsed in the yard TECHNIQUE: Single AP portable view of the chest. COMPARISON: 04/15/2017 FINDINGS: The lungs are clear and expanded. There is no demonstrated pleural abnormality. Normal size heart. Normal mediastinum and noreen. Normal visualized pulmonary arteries. Normal visualized aortic arch and descending thoracic aorta. Normal visualized thoracic spine. Normal visualized ribs, clavicles, and shoulders. There is no demonstrated abnormality of the visualized soft tissue structures of the upper abdomen. RAD/Chest 1 View (Portable) IMPRESSION: Normal x-ray examination of the chest. Electronically Signed: Adarsh Edmond DO at 19:11 EDT Tel , Service support ,
[2017-10-30 19:07] LABS: Bacteria 0 SEEN /hpf (None Seen)
[2017-10-30 19:28] LABS: Glucose, Dipstick Normal (Normal); Ketone-Dipstick Negative (Negative); Leukocyte Esterase-Dipstick 100 /ul (Negative); Nitrite-Dipstick Negative (Negative); Occult Blood-Urine Negative /ul (Negative); Protein-Dipstick 15 mg/dl (Negative); Specific Gravity, Urine 1.015 (1.002-1.030); Urine Bilirubin Dipstick Negative (Negative); Urine Urobilinogen Normal (Normal)
[2017-10-30 19:35] LABS: AST(SGOT) 13 U/L (15-37); Alanine Aminotransfer ALT/SGPT 22 U/L (16-61); Alkaline Phosphatase 80 U/L (45-117); Anion Gap 13 (5-15); BUN 26 mg/dL (7-18); Bilirubin, Direct 0.07 mg/dL (0.00-0.30); Chloride 103 mmol/L (98-107); EST Glomerular Filtration Rate 82 mL/min (>60); Est Glom Filt Rate - Afr Amer 100 mL/min (>60); Estimated Creatinine Clearance 80.75 ml/min; Globulin 3.5 g/dL (2.2-4.2); Glucose 115 mg/dL (74-106); Lipase 87 U/L (73-393); Potassium 3.8 mmol/L (3.5-5.1); Protein, Total 7.5 g/dL (6.4-8.2); Sodium Level 140 mmol/L (136-145)
[2017-10-30 19:35] LABS: Color, Urine Yellow (Yellow); Urine Clarity Sl Cloudy (Clear)
[2017-10-30 19:36] LABS: Valproic Acid (Depakene) Level 40 ug/mL (50-100)
[2017-10-30 20:03] LABS: Hyaline Cast 0-5 SEEN /lpf (0-5); Mucous, Urine 1+ /hpf (<or=2+)
[2017-10-30 20:06] VITALS: BP 113/83; PULSE 88; RESP 16; O2SAT 98
[2017-10-30 20:07] LABS: Red Blood Cells-Urine 0-5 SEEN /hpf (0-5)
[2017-10-30 20:09] LABS: Squamous Epithelial Cells - UA 0-5 SEEN /hpf (0-5)
[2017-10-30 20:11] LABS: White Blood Cells 10-25 SEEN /hpf (0-5)
--- NOTE | 2017-10-30 20:37 | ED.DEP ---
ED Disposition - Plan for ED Patient: Chief Complaint: Seizure Instructions: ED Seizure Recurrent, ED UTI Cystitis Male Prescriptions: Ciprofloxacin [Cipro] 500 mg PO BID #20 tab Referrals: Priscilla Nixon MD [Primary Care Provider] -
[2017-10-30] MEDS: Divalproex Sodium 250 MG Tablet 500 MG PO (20:49)
[2017-10-30 21:07] VITALS: BP 117/79; PULSE 84; RESP 16; O2SAT 98
[2017-10-30] MEDS: Ciprofloxacin 250 MG Tablet PO (21:08)
== END 2017-10-30 21:20 | disposition home or self-care (01) ==
PROVIDERS: Emergency Provider Emergency Medicine; Family Provider Internal Medicine; PCP Internal Medicine
DX: G40.909 Epilepsy, unspecified, not intractable, without status epilepticus (principal); N39.0 Urinary tract infection, site not specified; X30.XXXA Exposure to excessive natural heat, initial encounter; Y93.H2 Activity, gardening and landscaping; S00.91XA Abrasion of unspecified part of head, initial encounter; Y92.9 Unspecified place or not applicable; Y99.9 Unspecified external cause status; Z79.82 Long term (current) use of aspirin; Z79.899 Other long term (current) drug therapy
CPT/HCPCS: 70450; 71045; 80048; 80076; 80164; 81001; 83690; 84484; 85025; 87077; 87086; 87088; 87186; 93005; 99284

== ENCOUNTER → 2017-11-28 12:14 | Outpatient (CLI) | payer OTHER, MEDICAID, SELFPAY ==
[2017-11-28 12:45] VITALS: PULSE 100; PULSE 101; PULSE 83; PULSE 88; PULSE 93; PULSE 96; PULSE 98; O2SAT 94; O2SAT 95; O2SAT 96; O2SAT 97; O2SAT 98
--- NOTE | 2017-11-29 06:25 | WT_ITS ---
PSN 6 Minute Walk Test - 6 Minute Walk Test 6 Minute Walk Test: 6 Minute Walk Test PSN:6-Minute Walk Test Start: 11/28/17 12: 45 Freq: Status: Active Protocol: [id number] Document 11/28/17 12:45 [facility] (Rec: 11/28/17 12:49 [facility] [id number]) 6 Minute Walk Test Date Performed 11/28/17 Time Performed 12:30 Height 5 ft 8 in Weight: 74.843 kg Weight in Pounds 165.[address]: Rock Dick FIO2 (% Oxygen) 21 Assistive device used: None Pre-test Oxygen Delivery Method Room Air Pulse Ox (%) 97 Pulse Rate (60-100 beats/min) 83 Dyspnea Meron Scale (0-10) 0 1st minute Oxygen Delivery Method Room Air Pulse Ox (%) 97 Pulse Rate (60-100 beats/min) 93 Dyspnea Meron Scale (0-10) 1 Reported Symptoms Increased Work of Breathing 2nd minute Oxygen Delivery Method Room Air Pulse Ox (%) 96 Pulse Rate (60-100 beats/min) 96 Dyspnea Meron Scale (0-10) 1 Reported Symptoms Increased Work of Breathing 3rd minute Oxygen Delivery Method Room Air Pulse Ox (%) 96 Pulse Rate (60-100 beats/min) 98 Dyspnea Meron Scale (0-10) 1 Reported Symptoms Increased Work of Breathing 4th minute Oxygen Delivery Method Room Air Pulse Ox (%) 95 Pulse Rate (60-100 beats/min) 100 Dyspnea Meron Scale (0-10) 2 Reported Symptoms Increased Work of Breathing 5th minute Oxygen Delivery Method Room Air Pulse Ox (%) 94 Pulse Rate (60-100 beats/min) 101 H Dyspnea Meron Scale (0-10) 2 Reported Symptoms Increased Work of Breathing 6th minute Oxygen Delivery Method Room Air Pulse Ox (%) 94 Pulse Rate (60-100 beats/min) 100 Dyspnea Meron Scale (0-10) 2 Reported Symptoms Increased Work of Breathing Post-test Oxygen Delivery Method Room Air Pulse Ox (%) 98 Pulse Rate (60-100 beats/min) 88 Dyspnea Meron Scale (0-10) 0 Full Laps Walked 18 Partial Lap, Number of Tiles Walked 12 Total Distance Walked (ft) 1074 - Interpretation Interpretation: Patient was able to ambulate 1074 feet over the course of 6 minutes on room air with no assistive devices or breaks. No significant desaturation or tachycardia was noted during testing. - Recommendations Recommendations: Supplemental oxygen is indicated at this time.
== END ==
PROVIDERS: Family Provider Internal Medicine; PCP Internal Medicine; Visit Provider Internal Medicine Critical Care Medicine
DX: J44.9 Chronic obstructive pulmonary disease, unspecified (principal); F17.201 Nicotine dependence, unspecified, in remission
CPT/HCPCS: 94618

== ENCOUNTER → 2017-12-25 15:49 | Outpatient (CLI) | payer OTHER, MEDICAID, SELFPAY ==
--- NOTE | 2017-12-25 16:30 | CT_ITS ---
STUDY: LOW DOSE CT LUNG CANCER SCREENING REASON FOR EXAM: Male, 57 years old. Tobacco use RADIATION DOSAGE (If Supplied By Facility): CTDIvol = ( 3.02 ) mGy, DLP = ( 105.33 ) mGycm TECHNIQUE: No contrast was administered. Low dose technique was utilized (average mAS-38 and kVp 120). 1.25 mm axial source images with a slice interval of 1.25-mm were reconstructed in lung windows. 2.5 mm axial source images with a slice interval of 2.5-mm were reconstructed in lung windows. 5.0 mm axial source images with a slice interval of 5.0-mm were reconstructed in soft tissue windows. Nodule measured using lung windows on PACS and/or independent workstation with automated measurement of minimum and maximum diameter. Nodule measurement reported as average diameter rounded to the nearest whole number. Growth is defined as an increase ins size of greater than 1.5 mm. COMPARISON: CT of the chest, January 16, 2017. NODULES: Nodule #: 1 Density: Solid Lung location: Right upper lobe: 1.5 cm from pleura Location in series: Series Number: 2 Image: 31 Size - D1 x D2 mm: 2.2 mm: 2 mm average diameter Margin: Smooth Shape: Rounded Calcification: No Fat: No Temporal comparison: None Nodule #: 2 Density: Solid Lung location: Right upper lobe: 1.7 cm from pleura Location in series: Series Number: 2 Image: 36 Size - D1 x D2 mm: 2.2 mm: 2 mm average diameter Margin: Smooth Shape: Round Calcification: No Fat: No Temporal comparison: None Nodule #: 3 Density: Solid Lung location: Right upper lobe: 0.6 cm from pleura Location in series: Series Number: 3 Image: 38 Size - D1 x D2 mm: 3 x 3 mm: 3 mm average diameter Margin: Smooth Shape: Round Calcification: No Fat: No Temporal comparison: None Nodule #: 4 Density: Solid Lung location: Right lower lobe: Pleural-based Location in series: Series Number: 2 Image: 81 Size - D1 x D2 mm: 2 x 2 mm: 2 mm average diameter Margin: Smooth Shape: Round Calcification: No Fat: No Temporal comparison: None Nodule #: 5 Density: Solid Lung location: Right upper lobe: 1.1 cm from pleura Location in series: Series Number: 2 Image: 90 Size - D1 x D2 mm: 4 x 4 mm: 4 mm average diameter Margin: Smooth Shape: Rounded Calcification: No Fat: No Temporal comparison: None Nodule #: 6 Density: Solid Lung location: Right upper lobe: 1.2 cm from pleura Location in series: Series Number: 2 Image: 90 Size - D1 x D2 mm: 3 x 3 mm: 3 mm average diameter Margin: Smooth Shape: Round Calcification: No Fat: No Temporal comparison: None Nodule #: 7 Density: Solid Lung location: Right upper lobe: 1.4 cm from pleura Location in series: Series Number: 2 Image: 97 Size - D1 x D2 mm: 2 x 2 mm: 2 mm average diameter Margin: Smooth Shape: Round Calcification: No Fat: No Temporal comparison: None Nodule #: 8 Density: Solid Lung location: Right upper lobe: 1 cm from pleura Location in series: Series Number: 2 Image: 99 Size - D1 x D2 mm: 3 x 3 mm: 3 mm average diameter Margin: Smooth Shape: Rounded Calcification: No Fat: No Temporal comparison: None Nodule #: 9 Density: Solid Lung location: Right upper lobe: cm 0.4 from pleura Location in series: Series Number: 2 Image: 99 Size - D1 x D2 mm: 3 x 3 mm: 3 mm average diameter Margin: Smooth Shape: Rounded Calcification: No Fat: No Temporal comparison: None Nodule #: 10 Density: Solid Lung location: Right upper lobe: 0.6 cm from pleura Location in series: Series Number: 2 Image: 101 Size - D1 x D2 mm: 3 x 3 mm: 3 mm average diameter Margin: Smooth Shape: Rounded Calcification: No Fat: No Temporal comparison: None Nodule #: 11 Density: Solid Lung location: Left upper lobe: 0.8 cm from pleura Location in series: Series Number: 3 Image: 102 Size - D1 x D2 mm: 2 x 2 mm: 2 mm average diameter Margin: Solid Shape: Round Calcification: No Fat: No Temporal comparison: None Nodule #: 12 Density: Solid Lung location: Right upper lobe: 0.3 cm from pleura Location in series: Series Number: 3 Image: 103 Size - D1 x D2 mm: 4 x 3 mm: 4 mm average diameter Margin: Smooth Shape: Oval Calcification: No Fat: No Temporal comparison: None Nodule #: 13 Density: Solid Lung location: Right upper lobe: 0.3 cm from pleura Location in series: Series Number: 2 Image: 105 Size - D1 x D2 mm: 2 x 2 mm: 2 mm average diameter Margin: Smooth Shape: Round Calcification: No Fat: No Temporal comparison: None Nodule #: 14 Density: Cephalic Lung location: Right upper lobe: 0.7 cm from pleura Location in series: Series Number: 2 Image: 105 Size - D1 x D2 mm: 2 x 2 mm: 2 mm average diameter Margin: Smooth Shape: Round Calcification: No Fat: No Temporal comparison: None Nodule #: 15 Density: Solid Lung location: Right upper lobe: 0.7 cm from pleura Location in series: Series Number: 2 Image: 107 Size - D1 x D2 mm: 3 x 3 mm: 3 mm average diameter Margin: Smooth Shape: Rounded Calcification: No Fat: No Temporal comparison: None Nodule #: 16 Density: Solid Lung location: Right upper lobe: 1.8 cm from pleura Location in series: Series Number: 2 Image: 110 Size - D1 x D2 mm: 3 x 3 mm: 3 mm average diameter Margin: Smooth Shape: Rounded Calcification: No Fat: No Temporal comparison: None Nodule #: 17 Density: Solid Lung location: Right lower lobe: 1.9 cm from pleura Location in series: Series Number: 2 Image: 160 Size - D1 x D2 mm: 20.1 x 9 mm: 2 cm average diameter Margin: Spiculated Shape: Linear Calcification: No Fat: No Temporal comparison: None Nodule #: 18 Density: Solid Lung location: Left upper lobe: 0.6 cm from pleura Location in series: Series Number: 2 Image: 118 Size - D1 x D2 mm: 2 x 2 mm: 2 mm average diameter Margin: Smooth Shape: Round Calcification: No Fat: No Temporal comparison: None Nodule #: 19 Density: Solid Lung location: Right lower lobe: Pleural-based Location in series: Series Number: 2 Image: 123 Size - D1 x D2 mm: 9 x 6 mm: 9 mm average diameter Margin: Smooth Shape: Oval Calcification: No Fat: No Temporal comparison: None Nodule #: 20 Density: Solid Lung location: Left lower lobe: Pleural-based Location in series: Series Number: 2 Image: 121 Size - D1 x D2 mm: 3 x 8 mm: 8 average diameter Margin: Smooth Shape: Oval Calcification: No Fat: No Temporal comparison: Stable Nodule #: 21 Density: Solid Lung location: Right lower lobe: 2.2 cm from pleura Location in series: Series Number: 2 Image: 1:30 Size - D1 x D2 mm: 9 x 7 mm: 9 mm average diameter Margin: Spiculated Shape: Oval Calcification: No Fat: No Temporal comparison: None Nodule #: 22 Density: Solid Lung location: Right lower lobe: Pleural-based Location in series: Series Number: 2 Image: 176 Size - D1 x D2 mm: 5 x 8 mm: 8 mm average diameter Margin: Spiculated Shape: Oval Calcification: No Fat: No Temporal comparison: None Nodule #: 23 Density: Solid Lung location: Right lower lobe: Pleural-based Location in series: Series Number: 2 Image: 181 Size - D1 x D2 mm: 13.8 mm: 13 mm average diameter Margin: Spiculated Shape: Oval Calcification: No Fat: No Temporal comparison: None Total lung nodules (excluding granulomas): 23 Emphysema: There is minimal emphysematous changes lungs. Endobronchial lesion: None Aorta: Normal Coronary arteries: Normal Heart: Normal Pulmonary artery: Normal Mediastinal nodes: There are calcified right hilar and paratracheal lymph nodes. Other chest and abdominal findings: None CT/Low Dose CT Lung Screening IMPRESSION: Lung-RADS category 4A - Screening at 3 months with LDCT or evaluation with PET/CT may be used. IMPORTANT NOTES FOR USE: ACR Lung-RADS Version 1.0 Assessment Categories Release Date: October 11, 2013 Category: Coded 0-4 bases on nodule(s) with highest degree of suspicion. Negative screen is defined as categories 1 and 2; a positive screen is defined as categories 3 and 4. Category 3 and 4A nodules that are unchanged on interval CT should be coded as category 2, and individuals returned to screening in 12 months. Category 4X: Category 3 or 4 nodules with additional imaging findings that increase the suspicion of lung cancer, such as spiculation, GGN that doubles in size in 1 year, enlarged lymph notes, etc. Category Modifiers: S (significant finding unrelated to lung cancer) and C (prior history of treated lung cancer) may be added to the 0-4 Lung-RADS Electronically Signed: Eder Miles DO at 19:09 EDT Tel [phone], Service support ,
== END ==
PROVIDERS: Family Provider Internal Medicine; PCP Internal Medicine; Visit Provider Internal Medicine Critical Care Medicine
DX: Z12.2 Encounter for screening for malignant neoplasm of respiratory organs (principal); Z87.891 Personal history of nicotine dependence
CPT/HCPCS: G0297

== ENCOUNTER → 2018-01-26 08:56 | Outpatient (CLI) | payer OTHER, MEDICAID, SELFPAY ==
[2018-01-19 10:37] LABS: Hemoglobin 12.9 g/dl (13.0-16.5); Mean Corp Hgb Conc 31.5 g/gl (32-36); Mean Corpuscular Hgb 26.9 pg (27.0-32.0); Mean Corpuscular Volume 85.6 fL (80-94); Mean Platelet Vol. 9.3 fl (6.2-12.0); Platelet Count 299 K/mm3 (150-450); Prothrombin Time (Protime)PT. 12.7 SECONDS (11.7-14.9); RBC Distribution Width CV 17.3 % (11.6-14.6); RBC Distribution Width SD 54.8 fl (35.1-43.9); Red Blood Count 4.79 M/mm3 (4.6-6.2); White Blood Count 6.8 K/mm3 (4.4-11.0)
[2018-01-19 10:38] LABS: Partial Thromboplast Time 33.1 Seconds (24.1-36.2)
[2018-01-19 10:39] LABS: Scan Indicated on CBC? Y/N NO
[2018-01-26] VITALS (11 sets, daily range): BP systolic 108–147; BP diastolic 64–99; PULSE 72–82; RESP 14–76; TEMP 36.8; O2SAT 94–99; BMI 24.3
--- NOTE | 2018-01-26 10:30 | ASPIGT_PTH ---
PATIENT: ELIUD BLOUNT LOC: CT U#:[id number] AGE/SX: 64/M ROOM: RE01/26/[address]: SANDRA Chan : 1960 BED: DIS: SPEC #: [id number] RECD: 01/26/18 11:19 STATUS: VIOLET DEBRA #: [id number] EMILIANO: 01/26/18 10:[address]: Tammy Stone NP DEPT: SURGICAL PATHOLOGY RECD BY: Don Lazcano ENTERED: 01/26/18 11:20 SP TYPE: ASP RAD OTHR DR: Dr. Priscilla Nixon MD Tissues: Right lung, NOS Procedures: FNA Specimen Adequacy Special Stain Group II Surgery Specimen Level IV Diff Quik Stain (control) Imprint (control) HEADER OPERATION: CT-guided lung biopsy PRE-OP DIAGNOSIS: Right lung mass TISSUE SUBMITTED: Right middle lobe lung 20g core x3 MICROSCOPIC DIAGNOSIS Right middle lobe lung, CT-guided core biopsy: Lung parenchymal tissue with focal interstitial chronic inflammation, giant cells and focal area suggestive of granuloma. Special stains for acid fast bacilli and fungi are negative for organisms; matched controls are appropriate. Negative for malignancy. . ASIA:jenae 01/27/18 COMMENT The specimen is evaluated at the time of biopsy by Dr. Granger. Immediate Evaluation = Negative for malignant cells. Correlation with clinical, radiologic findings and appropriate follow up are necessary. Please make reference to previous specimen ([id number]) thoracentesis fluid with diagnosis of negative for malignant cells and acute inflammation. This case has been reviewed in consultation with Dr. Sandoval who concurs with the above diagnosis. MICROSCOPIC DESCRIPTION Slides are reviewed. GROSS DESCRIPTION Received in fixative is one container labeled with the patient's name and designated right lung nodule, CT-guided core biopsy. The specimen consists of multiple irregular fragments of vitale soft tissue that in aggregate measure 0.5 x 0.1 x <0.1 cm. The specimen is totally submitted in one cassette. / ASIA:jenae 01/26/18 TC:4 CPT: 54375, 33715, 97659 x2
== END ==
PROVIDERS: Family Provider Internal Medicine; PCP Internal Medicine; Visit Provider Nurse Practitioner Acute Care
DX: R91.8 Other nonspecific abnormal finding of lung field (principal); J44.9 Chronic obstructive pulmonary disease, unspecified; G43.909 Migraine, unspecified, not intractable, without status migrainosus; G47.33 Obstructive sleep apnea (adult) (pediatric); F31.9 Bipolar disorder, unspecified; K21.9 Gastro-esophageal reflux disease without esophagitis; R06.02 Shortness of breath; F17.200 Nicotine dependence, unspecified, uncomplicated; Z79.82 Long term (current) use of aspirin; Z79.899 Other long term (current) drug therapy; Z87.820 Personal history of traumatic brain injury
CPT/HCPCS: 32405; 36415; 71046; 77012; 85027; 85610; 85730; 88172; 88305; 88307; 88313; 99156; J7040; A4216

== ENCOUNTER → 2018-01-30 09:47 | Outpatient (CLI) | payer OTHER, MEDICAID, SELFPAY ==
[2018-01-30 10:35] LABS: Valproic Acid (Depakene) Level 70 ug/mL (50-100)
== END ==
PROVIDERS: Family Provider Internal Medicine; PCP Internal Medicine; Visit Provider Clinical Nurse Specialist Acute Care
DX: R56.9 Unspecified convulsions (principal)
CPT/HCPCS: 36415; 80164; 82140

== ENCOUNTER 2018-03-19 19:12 | Emergency (ER) | payer OTHER, SELFPAY ==
[2018-03-19 19:13] VITALS: BP 116/80; PULSE 98; RESP 18; TEMP 36.4; O2SAT 98; BMI 25.5
--- NOTE | 2018-03-19 19:41 | ED.VISSUMM ---
- ER Visit Summary Date of Service: 03/19/18 Chief Complaint: Toe injury History of Present Illness: The patient is a 57 M who states that yesterday on the right second toe along the cuticle there is a collection of pus he believes caused from trimming the nails too tight. His popped the pus and now the right second toe is swollen red a little bit purple and he has yellow crusted stuff on the nail. It is tender to palpation. Physical Examination: Afebrile vital signs stable Patient has cellulitis of the right second toe. There is a drained paronychia. There is no felon. There is yellow crusted drainage on the nail. Emergency Department Course and Treatment: Patient will be started on Keflex soapy water soaks. Local wound care discussed with patient. Return if worsening or concerns. Impression: 1. Cellulitis of the right second toe This note was generated with test company dictation software. It may contain incorrect words, spelling, and punctuation that were not noted in review of the chart prior to signing ED Disposition - Plan for ED Patient: Disposition: Home or Assisted Living Chief Complaint: Other, Pain/Inj Instructions: ED Infec Skin Cellulitis, ED Fingernail Infec Prescriptions: Cephalexin [Keflex] 500 mg PO Q6 #28 cap Referrals: Priscilla Nixon MD [Primary Care Provider] - 5-7 Days
--- NOTE | 2018-03-19 19:46 | ED.DCSUM_ITS ---
- ER Visit Summary Date of Service: 03/19/18 Chief Complaint: Toe injury History of Present Illness: The patient is a 57 M who states that yesterday on the right second toe along the cuticle there is a collection of pus he believes caused from trimming the nails too tight. His popped the pus and now the right second toe is swollen red a little bit purple and he has yellow crusted stuff on the nail. It is tender to palpation. Physical Examination: Afebrile vital signs stable Patient has cellulitis of the right second toe. There is a drained paronychia. There is no felon. There is yellow crusted drainage on the nail. Emergency Department Course and Treatment: Patient will be started on Keflex soapy water soaks. Local wound care discussed with patient. Return if worsening or concerns. Impression: 1. Cellulitis of the right second toe This note was generated with [employer] dictation software. It may contain incorrect words, spelling, and punctuation that were not noted in review of the chart prio r to signing ED Disposition - Plan for ED Patient: Disposition: Home or Assisted Living Chief Complaint: Other, Pain/Inj Instructions: ED Infec Skin Cellulitis, ED Fingernail Infec Prescriptions: Cephalexin [Keflex] 500 mg PO Q6 #28 cap Referrals: Priscilla Nixon MD [Primary Care Provider] - 5-7 Days
== END 2018-03-19 20:22 | disposition home or self-care (01) ==
LOC: ED 19:57
PROVIDERS: Emergency Provider Emergency Medicine; Family Provider Internal Medicine; PCP Internal Medicine
DX: L03.031 Cellulitis of right toe (principal); J44.9 Chronic obstructive pulmonary disease, unspecified; R56.9 Unspecified convulsions; Z79.82 Long term (current) use of aspirin; Z79.899 Other long term (current) drug therapy
CPT/HCPCS: 99282

== ENCOUNTER 2018-04-03 05:49 | Inpatient (IN) | payer OTHER, SELFPAY ==
[2018-04-03] VITALS (16 sets, daily range): BP systolic 101–149; BP diastolic 65–105; PULSE 90–145; RESP 14–33; TEMP 37–37.6; O2SAT 91–98; BMI 25.4; BMI 24.9
--- NOTE | 2018-04-03 05:54 | EKG12_ITS ---
Test Reason : SOB Blood Pressure : / mmHG Vent. Rate : 142 BPM Atrial Rate : 142 BPM P-R Int : 144 ms QRS Dur : 100 ms QT Int : 270 ms P-R-T Axes : 062 112 053 degrees QTc Int : 415 ms Sinus tachycardia Possible Left atrial enlargement Left posterior fascicular block Abnormal ECG Confirmed by ANGELIQUE ARBOLEDA, STEVEN ([id number]), food expeditor FERCHO LE ([id number]) on 04/06/2018 12:49:14 PM Referred By: LUKE Confirmed By:STEVEN MERINO MD
--- NOTE | 2018-04-03 05:54 | RAD_ITS ---
STUDY: X-RAY CHEST REASON FOR EXAM: Male, 57 years old. SOB and cough TECHNIQUE: Single frontal view of the chest. # of Images: 1 COMPARISON: 01/26/2018 FINDINGS: Right basilar pneumonia. There is no demonstrated pleural abnormality. Normal size heart. Normal mediastinum and noreen. Normal visualized pulmonary arteries. Normal visualized aortic arch and descending thoracic aorta. Normal visualized thoracic spine. Normal visualized ribs, clavicles, and shoulders. There is no demonstrated abnormality of the visualized soft tissue structures of the upper abdomen. RAD/Chest 1 View (Portable) IMPRESSION: Right basilar pneumonia. Electronically Signed: Roel Francisco MD at 6:42 EDT Tel , Service support ,
--- NOTE | 2018-04-03 05:55 | ED.VISSUMM ---
- ER Visit Summary Date of Service: 04/03/18 Chief Complaint: Shortness of breath History of Present Illness: The patient is a 57 M who presents with shortness of breath. Started about 3 days ago. He describes a continuous dyspnea. Is worse with exertion. It does get better with rest. He does admit to a history of COPD. He has had a cough is been productive of sputum. He denies any fevers or chest pain. He states that he was diagnosed with pneumonia at an [place] facility. He recently finished the antibiotics but is not getting any better. He admits to overall diffuse weakness as well. He continues to smoke. He does not wear home oxygen. Physical Examination: Vital signs are reviewed. Significant for tachycardia and tachypnea. HEENT exam unremarkable. Heart is tachycardic and regular rhythm without murmurs. Lungs have diffuse expiratory wheezing. He is mildly using some accessory muscles. Abdomen soft and nontender. Extremities reveal no edema. Neurologic exam is normal. Test Results: EKG sinus tachycardia with a rate of 142. No ST changes. Chest x-ray reveals a right lower lobe infiltrate. White blood cell count 12.2, lactate normal. Emergency Department Course and Treatment: Patient was given albuterol, oxygen, Solu-Medrol, Rocephin and azithromycin. He meets sepsis criteria. He has failed outpatient therapy. Patient will be admitted to the hospital Treatment Plan: [] Disposition: Admit Impression: Community-acquired pneumonia, COPD exacerbation, sepsis, failure of outpatient therapy This note was generated with [employer] dictation software. It may contain incorrect words, spelling, and punctuation that were not noted in review of the chart prior to signing ED Disposition - Plan for ED Patient: Chief Complaint: Shortness of Breath Referrals: Priscilla Nixon MD [Primary Care Provider] -
[2018-04-03] MEDS: MethylPREDNISolone 125 MG/2 ML Vial IV (06:00)
[2018-04-03 06:11] LABS: Absolute Lymphocyte Count 1.29 X10^3/ul (0.83-4.51); Absolute Neutrophil Count 10.4 X10^3/uL (2.0-7.7); Basophil# 0.01 X10^3/uL; Basophil% 0.1 % (0-1); Eosinophil# 0.04 X10^3/uL; Eosinophils% 0.3 % (0-5); Hematocrit 44.2 % (40-54); Lymphocyte # 1.29 X10^3/ul (4.0); Lymphocyte % 10.6 % (19-41); Mean Corp Hgb Conc 31.7 g/gl (32-36); Mean Corpuscular Hgb 28.1 pg (27.0-32.0); Mean Corpuscular Volume 88.8 fL (80-94); Mean Platelet Vol. 9.4 fl (6.2-12.0); Monocyte# 0.43 X10^3/uL; Monocyte% 3.5 % (0-10); Neutrophil # 10.42 X10^3/uL (2.7-7.7); Neutrophil % 85.4 % (47-70); Platelet Count 306 K/mm3 (150-450); RBC Distribution Width CV 18.1 % (11.6-14.6); RBC Distribution Width SD 58.6 fl (35.1-43.9); Red Blood Count 4.98 M/mm3 (4.6-6.2); White Blood Count 12.2 K/mm3 (4.4-11.0)
[2018-04-03 06:12] LABS: POSITIVE COUNT NO; POSITIVE DIFFERENTIAL NO; POSITIVE MORPHOLOGY NO
[2018-04-03] MEDS: Albuterol 2.5 MG/3 ML VIAL.NEB. INHALATION ×3 (06:14→06:43)
[2018-04-03 06:28] LABS: Anion Gap 7 (5-15); BUN 21 mg/dL (7-18); BUN/Creat Ratio 22.9 RATIO (10-20); Chloride 102 mmol/L (98-107); Creatinine, Serum 0.92 mg/dL (0.70-1.30); EST Glomerular Filtration Rate 91 mL/min (>60); Est Glom Filt Rate - Afr Amer 110 mL/min (>60); Estimated Creatinine Clearance 87.77 ml/min; Glucose 108 mg/dL (74-106); Sodium Level 140 mmol/L (136-145)
[2018-04-03 06:34] LABS: Lactic Acid 1.8 mmol/L (0.4-2.0)
[2018-04-03] MEDS: 0.9% Normal Saline 1,000 ML 999 ML IV (06:51)
--- NOTE | 2018-04-03 07:33 | HP.PCM_ITS ---
Problem List (1) Acute hypoxemic respiratory failure Status: Acute (2) Seizure disorder Status: Chronic (3) LACEY (obstructive sleep apnea) Status: Chronic Comment: CPAP 11 cm of water (4) GERD (gastroesophageal reflux disease) Status: Chronic Qualifiers: Qualified Code(s): K21.9 - Gastro-esophageal reflux disease without esophagitis (5) COPD (chronic obstructive pulmonary disease) Status: Chronic Qualifiers: COPD type: unspecified COPD Qualified Code(s): J44.9 - Chronic obstructive pulmonary disease, unspecified (6) Migraine Status: Chronic Qualifiers: Migraine type: unspecified Status migrainosus presence: without status migrainosus Intractability: not intractable Qualified Code(s): G43.909 - Migraine, unspecified, not intractable, without status migrainosus History of Present Illness Date of Admission: 04/03/18 Chief Complaint: Cough, SOB ongoing for 2 weeks The patient is a 57 year old M with past medical history of traumatic brain injury, COPD not on home oxygen, seizure disorder, hypertension, GERD, bipolar disorder who comes in with complaints of cough and shortness of breath ongoing for the past 2 weeks. Patient states he has a history of complicated pneumonia status post intubation, ICU care, chest tubes in [facility] a year ago. Since his discharge, he has been having shortness of breath. He has followed up with pulmonology in the outpatient. He is not on oxygen. He noticed that he has been having worsening shortness of breath ongoing the last 2 weeks. He denied any fever or chills. He has a cough that was productive of brownish sputum. Over the last 2 days he has had worsening shortness of breath and coughing which is worse with exertion. Vitals in the ED showed temperature of 99.7F, heart rate was 145, blood pressure is 149/105, respiratory rate was 33, SPO2 was 91%. BC count is 12.2, Hb 14.0, platelet count is 306. Sodium is 140, potassium 4.0, chloride 102, bicarbonate 31, BUN 21, creatinine 0.92, lactic acid 1.8, troponin 0 0.015, blood cultures are pending Chest x-ray shows right basilar pneumonia Past Medical History Past Medical History (Chronic Problems): Chronic Problems (Last Reviewed 03/13/18 @ 15:54 by Sadie Lal) Seizure disorder (Chronic) Diastolic dysfunction (Chronic) Depression (Chronic) LACEY (obstructive sleep apnea) (Chronic) CPAP 11 cm of water Lung nodule (Chronic) Sleep-related breathing disorder (Chronic) Bipolar disorder (Chronic) GERD (gastroesophageal reflux disease) (Chronic) COPD (chronic obstructive pulmonary disease) (Chronic) Encephalopathy (Chronic) Traumatic brain injury (Chronic) Spinal stenosis (Chronic) Tobacco abuse (Chronic) Migraine (Chronic) Medical History: Medical History (Last Reviewed 03/13/18 @ 15:54 by Sadie Lal) Left ankle injury (Resolved) S99.912A Bilateral tennis elbow (Resolved) M77.11, M77.12 Depression (Chronic) F32.9 LACEY (obstructive sleep apnea) (Chronic) G47.33 CPAP 11 cm of water Lung nodule (Chronic) R91.1 Sleep-related breathing disorder (Chronic) G47.30 Bipolar disorder (Chronic) F31.9 GERD (gastroesophageal reflux disease) (Chronic) K21.9 COPD (chronic obstructive pulmonary disease) (Chronic) J44.9 Encephalopathy (Chronic) G93.40 Traumatic brain injury (Chronic) S06.9X9A Spinal stenosis (Chronic) M48.00 Tobacco abuse (Chronic) Z72.0 Migraine (Chronic) G43.909 Acute respiratory failure (Resolved) J96.00 Hoarseness (Resolved) R49.0 Pneumonia (Resolved) J18.9 Sepsis (Resolved) A41.9 Allergies dextromethorphan HBr [From NyQuil] Adverse Reaction (Intermediate, Verified 04/03/18 05:55) tachycardia, feels anxious doxylamine [From NyQuil] Adverse Reaction (Intermediate, Verified 04/03/18 05:55) Tachycardia, feels anxious pseudoephedrine HCl [From NyQuil] Adverse Reaction (Intermediate, Verified 04/03/18 05:55) Tachycardia, feels anxious sertraline HCl [From Zoloft] Adverse Reaction (Verified 04/03/18 05:55) Diarrhea Home Medications: Ambulatory Orders Medication Instructions Recorded Amitriptyline HCl [Elavil] 100 mg PO QHS 09/11/16 Multivitamin [Multiple Vitamins] 1 ea PO DAILY 09/11/16 Quetiapine Fumarate [Seroquel] 25 mg PO TID PRN PRN 12/05/16 Gabapentin [Neurontin] 800 mg PO 4X/DAY 04/14/17 Propranolol HCl [Inderal (Beta 10 mg PO BID 07/11/17 Danielle)] omeprazole 20 mg capsule,delayed 40 mg PO QDAY cap 08/19/17 release Aspirin [Aspirin, Baby] 81 mg PO DAILY@0800 10/30/17 fluticasone 100 mcg-umeclid 62.5 1 inh INHALATION QDAY #3 device 02/03/18 mcg-vilant 25 mcg powd for inhalation Divalproex Sodium [Depakote ER] 1,500 mg PO DAILY 04/03/18 Surgical History: Surgical History (Last Reviewed 03/13/18 @ 15:54 by Sadie Lal) History of hernia repair (Resolved) Z98.890, Z87.19 Surgical History: - - Tennis elbow, Left ankle, TBI with encephalamalacia, Inguinal hernia. Psychiatric History: Bipolar Lives: Spouse/ Significant Other Smoking Status: Current every day smoker Tobacco Use: Cigarettes Alcohol: None Drugs: None - *Family History Maternal Family History: Family History (Last Reviewed 03/13/18 @ 15:54 by Sadie Lal) Father Dementia Alzheimers disease Diabetes Mother Diabetes History Items: Diabetes Paternal Family History: Family History (Last Reviewed 03/13/18 @ 15:54 by Sadie Lal) Father Dementia Alzheimers disease Diabetes Mother Diabetes History Items: Cancer, Heart Disease Review of Systems Constitutional: Reports: Weakness, Fatigue. Denies: Anorexia, Chills, Fever, Night Sweats, Malaise, Weight Change Eyes: Denies: Blurred vision, Cataracts, Conjunctivae Inflammation, Pain, Redness, Vision Change HEENT: Denies: Difficulty Hearing, Difficulty Swallowing, Head Aches, Hearing Changes, Sinus Congestion, Sinus Drainage, Sore Throat Cardiovascular: Denies: Chest Pain, Claudication, Chest Pressure, Chest Tightness, Heaviness, Light Headedness, Orthopnea, Palpitations, Paroxysmal Noc. Dyspnea, Syncope Respiratory: Reports: Cough, Shortness of Breath, Shortness of breath at rest, Shortness of breath upon exertion, Sputum production, Wheezing. Denies: Hemoptysis Gastrointestinal: Denies: Abdominal Pain, Nausea, Vomiting Genitourinary: Denies: Dysuria, Frequency, Incontinence, Nocturia Musculoskeletal: Denies: Foot Pain, Hand Pain, Joint Pain, Joint stiffness, Joint swelling, Joint Tenderness Skin: Denies: Rash, Wounds Neurological: Denies: Difficulty swallowing, Focal weakness, Numbness, Tingling Psychiatric: Denies: Anxiety, Depression, Homicidal Ideations, Suicidal Ideations Hematologic/ Lymphatic: Denies: Easy Bruising, Easy Bleeding VTE Information - Inpt Only VTE Present on Admission: No VTE Pharm Prophylaxis ordered?: Yes - Physical Exam General: Alert, Oriented x3, Cooperative, - - in mild respiratory distress, on 2L oxygen HEENT: Atraumatic, PERRLA, EOMI, Normocephalic Oral: Moist Mucosa Neck: Supple Lungs: Normal air movement, Diminished Cardiovascular: Regular rate, Regular Rhythm, Normal S1, Normal S2, No murmurs Abdomen: Bowel Sounds Present, Soft, Non Tender, Non-Distended, No Hepato- splenomegaly Extremities: No edema Skin: No rashes, No breakdown Musculoskeletal: No Tenderness to Palpation of Joints or Extremities Lymphatic: No Cervical, Supraclavicular, or Inguinal Adenopathy Neurological: Cranial nerves II-XII grossly intact, Neuro grossly intact Psych/Mental Status: Normal Affect, Appropriate Vital Signs Temp Pulse Resp BP Pulse Ox 99.7 F H 132 H 20 H 149/105 H 93 04/03/18 05:50 04/03/18 06:35 04/03/18 06:35 04/03/18 05:50 04/03/18 05:57 Oxygen Flow Rate (L/min) 2 Oxygen Delivery Method Room Air Weight: 75.8 kg Body Mass Index (BMI) 25.4 Finger Stick Blood Glucose 79 Laboratory Tests Past 24 Hrs 04/03/18 04/03/18 04/03/18 06:00 06:00 06:00 WBC 12.2 H RBC 4.98 Hgb 14.0 Hct 44.2 MCV 88.8 MCH 28.1 MCHC 31.7 L RDW 18.1 H RDW Differential 58.6 H Plt Count 306 MPV 9.4 Immature Gran % (Auto) 0.100 Neut % (Auto) 85.4 H Lymph % (Auto) 10.6 L [place] % (Auto) 3.5 Eos % (Auto) 0.3 Baso % (Auto) 0.1 Absolute Neuts (auto) 10.4 H Absolute Lymphs (auto) 1.29 Total Counted Not Reportable Sodium 140 Potassium 4.0 Chloride 102 Carbon Dioxide 31.0 Anion Gap 7 BUN 21 H Creatinine 0.92 Estim Creat Clear Calc 87.77 Est GFR (MDRD) Af Amer 110 Est GFR (MDRD) Non-Af 91 BUN/Creatinine Ratio 22.9 H Glucose 108 H Lactic Acid 1.8 Calcium 9.0 Troponin I < 0.015 Assessment/Plan All Active Problems (Last Reviewed 03/13/18 @ 15:54 by Sadie Lal) Acute hypoxemic respiratory failure (Acute) Shortness of breath (Acute) Hyperammonemia (Acute) Seizure (Acute) Left ankle injury (Resolved) History of hernia repair (Resolved) Bilateral tennis elbow (Resolved) Acute respiratory failure (Resolved) Hoarseness (Resolved) Pneumonia (Resolved) Sepsis (Resolved) 57 year old M with past medical history of traumatic brain injury, COPD not on home oxygen, seizure disorder, hypertension, GERD, bipolar disorder who comes in with complaints of cough and shortness of breath ongoing for the past 2 weeks. 1. Acute hypoxic respiratory insufficiency secondary to right community-acquired pneumonia, on 2 L of oxygen, will continue with oxygen therapy, chest physiotherapy, wean off for SPO2 more than 94% 2. Sepsis secondary to Right community-acquired pneumonia, (leucocytosis, tachycardia, source of infection being right lower lobe pneumonia ) Likely secondary to gram-positive, atypical organisms, Status post failed outpatient therapy, started on IV ceftriaxone and azithromycin, Will continue with urine for Legionella and streptococcal antigen will continue same, encourage use of incentive spirometer and PEEP 3. Possible Acute COPD exacerbation, history of COPD, follows up in the outpatient, no wheezes heard on exam, but patient was given breathing treatment and Solu-Medrol prior to my exam, will continue on IV Solu-Medrol empirically for now, would switch to prednisone tomorrow if patient appears improved 4. Seizure disorder, last seizure was 2 months ago, will continue with seizure precautions, continue on gabapentin, depakote, follows up with neurology in the outpatient 5. Bipolar disorder, on Seroquel 6. History of chronic migrainous headache/traumatic brain injury, on propranolol, would add Tylenol as needed 7. DVT PPx- Lovenox SC Code Visit Inpatient E&M: 66502 Init Hosp L3
[2018-04-03] MEDS: Ceftriaxone 1 GM/50 ML BAG IV (08:28)
[2018-04-03] MEDS: Gabapentin 800 MG Tablet PO ×4 (09:53→21:34)
[2018-04-03] MEDS: Propranolol 10 MG Tablet PO ×2 (09:53→21:37)
[2018-04-03] MEDS: Enoxaparin 40 MG/0.4 ML Syringe SC (09:53)
[2018-04-03] MEDS: guaiFENesin 1,200 MG Tablet 1200 MG PO ×2 (09:53→21:37)
[2018-04-03] MEDS: Multivitamins,Therapeutic Tablet 1 TABLET PO (09:53)
[2018-04-03] MEDS: Pantoprazole Sodium 40 MG Tablet PO (09:53)
[2018-04-03] MEDS: Aspirin 81 MG TAB.CHEW PO (09:53)
[2018-04-03] MEDS: Ipratropium/Albuterol Sulfate 3 ML AMPUL.NEB INHALATION ×4 (10:32→22:55)
[2018-04-03] MEDS: Budesonide Respules 0.5 MG/2 ML AMPUL.NEB. INHALATION (10:40)
--- NOTE | 2018-04-03 11:41 | CASEMGMT ---
JULIETTE SHARP assessment: Face to Face with patient for initial transition planning/care coordination assessment. JULIETTE SHARP introduced self and role at [facility], pt voices understanding and consents to assessment at this time. Pt is sitting up in chair in no distress at this time. Pt is A/Ox4 at this time and answers all questions appropriately at this time. Care providers, pharmacy, and demographics verified/updated at this time. PCP: Tiffani Specialists: Pt states no current specialists at this time. [facility]erred [facility]acy: [facility] Insurance: MMO Prescription Benefit: MMO Living Will/HPOA: Pt states does not have AD currently but is interested in information and possibly completion of AD info at this time. Referral to Ankita ONEILL at this time, voices understanding. LNOK: Heike Randall, Living Arrangements: Pt lives with in mobile home with 4 steps into home and states no concerns at home at this time. Pt states is able to care for self on a daily basis. Transportation: Pt states drives and states no transportation concerns at this time. Pt is unable to drive d/t seizure hx. DME/HHC: Pt states has no current DME or need for any at this time. Pt states if he needs home oxygen that he has had [employer] in the past. Green sheet left on chart with order at this time. Pt states no hx of HHC or SNF in the past. Pt states no concerns with going home at time of discharge. Pt states is trying to quit smoking currently and previously smoked a pk/day. Pt is disabled. Pt voices no further concerns/needs at this time. Advised pt to ask for CM if any further questions/concerns/needs arise, voices understanding. CM to follow for any further discharge planning/needs. Plan: [place] JULIETTE SHARP
[2018-04-03] MEDS: Divalproex (ER) 500 MG Tablet 1000 MG PO (11:57)
[2018-04-03] MEDS: 0.9% Normal Saline 1,000 ML 75 ML IV (12:01)
--- NOTE | 2018-04-03 13:55 | CASEMGMT ---
Social Work Received referral from JULIETTE SHARP that pt is interested in advance directive. SW met with pt in room and introduced self and role. SW explained to pt living will and health care power of real estate attorney. Written information provided. Pt does not wish to complete advance directives at this time but states he would like to make an appointment with SW after pt returns home and speaks with his . Information given to pt including number to call SW for appointment. BRITTNEY Vogel
[2018-04-03] MEDS: Amitriptyline 100 MG Tablet PO (21:37)
[2018-04-04 03:00] VITALS: PULSE 82
[2018-04-04 03:25] VITALS: BP 122/66; PULSE 87; RESP 14; TEMP 36.9; O2SAT 94
[2018-04-04 07:21] VITALS: PULSE 84
[2018-04-04 07:29] VITALS: PULSE 86; RESP 18; O2SAT 96
[2018-04-04] MEDS: Budesonide Respules 0.5 MG/2 ML AMPUL.NEB. INHALATION (07:29)
[2018-04-04] MEDS: Ipratropium/Albuterol Sulfate 3 ML AMPUL.NEB INHALATION (07:29)
[2018-04-04 08:47] VITALS: BP 113/83; PULSE 80; RESP 18; TEMP 36.6; O2SAT 97
[2018-04-04] MEDS: Multivitamins,Therapeutic Tablet 1 TABLET PO (08:48)
[2018-04-04] MEDS: Aspirin 81 MG TAB.CHEW PO (08:48)
[2018-04-04 09:08] LABS: Absolute Lymphocyte Count 1.26 X10^3/ul (0.83-4.51); Absolute Neutrophil Count 17.5 X10^3/uL (2.0-7.7); Basophil# 0.01 X10^3/uL; Basophil% 0.1 % (0-1); Hematocrit 36.8 % (40-54); Hemoglobin 12.1 g/dl (13.0-16.5); Lymphocyte # 1.26 X10^3/ul (4.0); Lymphocyte % 6.4 % (19-41); Mean Corp Hgb Conc 32.9 g/gl (32-36); Mean Corpuscular Hgb 29.2 pg (27.0-32.0); Mean Corpuscular Volume 88.7 fL (80-94); Mean Platelet Vol. 9.6 fl (6.2-12.0); Monocyte% 3.6 % (0-10); Neutrophil # 17.54 X10^3/uL (2.7-7.7); Neutrophil % 89.6 % (47-70); Platelet Count 257 K/mm3 (150-450); RBC Distribution Width CV 18.5 % (11.6-14.6); Red Blood Count 4.15 M/mm3 (4.6-6.2); White Blood Count 19.6 K/mm3 (4.4-11.0)
[2018-04-04 09:10] LABS: POSITIVE COUNT NO; POSITIVE DIFFERENTIAL NO; POSITIVE MORPHOLOGY NO
--- NOTE | 2018-04-04 09:51 | DCINST_ITS ---
You will use the following diet at home:: Regular Your food should be the consistency of: Regular Discharge Activity: May Not Drive Call your doctor if you observe: Fever of 101 or Higher, Change in Color, Shortness of breath, Dizziness, Fainting spells, Chest pain, Prolonged hiccoughing Allergies/Adverse Reactions: Allergies dextromethorphan HBr [From NyQuil] Adverse Reaction (Intermediate, Verified 04/03/18 05:55) tachycardia, feels anxious doxylamine [From NyQuil] Adverse Reaction (Intermediate, Verified 04/03/18 05:55) Tachycardia, feels anxious pseudoephedrine HCl [From NyQuil] Adverse Reaction (Intermediate, Verified 04/03/18 05:55) Tachycardia, feels anxious sertraline HCl [From Zoloft] Adverse Reaction (Verified 04/03/18 05:55) Diarrhea Medications to take at Discharge Amitriptyline HCl [Elavil] 100 mg PO QHS 09/11/16 Multivitamin [Multiple Vitamins] 1 ea PO DAILY 09/11/16 Quetiapine Fumarate [Seroquel] 25 mg PO TID PRN PRN 12/05/16 Gabapentin [Neurontin] 800 mg PO 4X/DAY 04/14/17 Propranolol HCl [Inderal (Beta Danielle)] 10 mg PO BID 07/11/17 omeprazole 20 mg capsule,delayed release 40 mg PO QDAY cap 08/19/17 Aspirin [Aspirin, Baby] 81 mg PO DAILY@0800 10/30/17 fluticasone 100 mcg-umeclid 62.5 mcg-vilant 25 mcg powd for inhalation 1 inh INHALATION QDAY #3 device 02/03/18 Divalproex Sodium [Depakote ER] 1,000 mg PO DAILY 04/03/18 Albuterol Inhaler [Ventolin Hfa] 2 puff INHALATION Q4H PRN PRN #1 inhaler 04/04/18 Guaifenesin [Mucinex] 1,200 mg PO BID #14 tablet 04/04/18 Levofloxacin [Levaquin] 500 mg PO DAILY #5 tablet 04/04/18 Prednisone 10 mg PO UD #30 tab 04/04/18 The following prescriptions were given: Albuterol Inhaler [Ventolin Hfa] 2 puff INHALATION Q4H PRN PRN #1 inhaler PRN Reason: sob/wheezing Levofloxacin [Levaquin] 500 mg PO DAILY #5 tablet Prednisone 10 mg PO UD #30 tab Guaifenesin [Mucinex] 1,200 mg PO BID #14 tablet Please follow up with your Primary Care Physician in: in 1-2 weeks Test Results: Test results from this visit will be discussed in further detail at your follow- up appointment, if applicable.
--- NOTE | 2018-04-04 09:51 | PCM.DC.SUM ---
Discharge Date and Diagnosis Date of Admission: 04/03/18 Date of Discharge: 04/04/18 - Secondary Discharge Diagnosis Chronic Problems (Last Reviewed 03/13/18 @ 15:54 by Sadie Lal) Seizure disorder (Chronic) Diastolic dysfunction (Chronic) Depression (Chronic) LACEY (obstructive sleep apnea) (Chronic) CPAP 11 cm of water Lung nodule (Chronic) Sleep-related breathing disorder (Chronic) Bipolar disorder (Chronic) GERD (gastroesophageal reflux disease) (Chronic) COPD (chronic obstructive pulmonary disease) (Chronic) Encephalopathy (Chronic) Traumatic brain injury (Chronic) Spinal stenosis (Chronic) Tobacco abuse (Chronic) Migraine (Chronic) Hospital Course and Treatment Operations: None Summary of Care Provided: The patient is a 57 year old M with past medical history of traumatic brain injury, COPD not on home oxygen, seizure disorder, hypertension, GERD, bipolar disorder who comes in with complaints of cough and shortness of breath ongoing for the past 2 weeks. 1. Acute hypoxic respiratory insufficiency secondary to right community-acquired pneumonia, on 2 L of oxygen, chest physiotherapy, wean off for SPO2 more than 94%. Patient was weaned off oxygen. Acute hypoxic respiratory failure resolved. 2. Sepsis secondary to Right community-acquired pneumonia, (leucocytosis, tachycardia, source of infection being right lower lobe pneumonia ) Likely secondary to gram-positive, atypical organisms, Status post failed outpatient therapy, started on IV ceftriaxone and azithromycin, The patient is discharged on Levaquin 500 mg daily for 5 more days. 3. Possible Acute COPD exacerbation, history of COPD: Patient was treated with IV Solu-Medrol, bronchodilator and incentive spirometry. Patient discharged on Mucinex and tapering dose of prednisone and albuterol inhaler. Patient has Trelegy Ellipta at home. 4. Seizure disorder, last seizure was 2 months ago, will continue with seizure precautions, continue on gabapentin, depakote, follows up with neurology in the outpatient 5. Bipolar disorder, on Seroquel 6. History of chronic migrainous headache/traumatic brain injury, on propranolol, would add Tylenol as needed 7. DVT PPx- Lovenox SC Discharge medication reconciliation done. Scripts given as mentioned above. Discharge medications and follow-up instructions discussed with the patient. Total time spent, exact 35 minutes on discharge meds reconciliation, examination, review of imaging and blood test and discussion with the patient on follow-up instructions. - Physical Exam General: Alert, Oriented x3, Cooperative HEENT: Atraumatic, PERRLA, EOMI, Normocephalic Neck: Supple, No JVD, Negative Carotid Bruits Lungs: Clear to auscultation, Normal air movement, No rhonchi, No wheeze, No rales Cardiovascular: Regular rate, Regular Rhythm, Normal S1, Normal S2, No murmurs Abdomen: Bowel Sounds Present, Soft, Non Tender, Non-Distended Extremities: No edema, Capillary Refill Less than 3 Seconds Skin: No rashes, No breakdown Musculoskeletal: No Tenderness to Palpation of Joints or Extremities Neurological: Cranial nerves II-XII grossly intact Psych/Mental Status: Normal Affect, Appropriate Vital Signs Temp Pulse Resp BP Pulse Ox 97.8 F 80 18 113/83 H 97 04/04/18 08:47 04/04/18 08:47 04/04/18 08:47 04/04/18 08:47 04/04/18 08:47 Oxygen Flow Rate (L/min) 2 Oxygen Delivery Method Room Air Weight: 163 lb 12.855 oz Body Mass Index (BMI) 24.9 Finger Stick Blood Glucose 79 Intake and Output for Last 24 Hours 04/02/18 04/03/18 04/04/18 23:59 23:59 23:59 Intake Total 2607 / 2607 Balance 2607 / 2607 Microbiology Past 72 Hours 04/03/18 16:55 Legionella Antigen - Final Urine, Clean Catch 04/03/18 16:55 Streptococcus pneumoniae Antigen (M - Final Urine, Clean Catch 04/03/18 10:52 Respiratory Panel (PCR) - Final Mucosa - Nose Laboratory Tests Past 24 Hrs 04/04/18 08:41 WBC 19.6 H RBC 4.15 L Hgb 12.1 L Hct 36.8 L MCV 88.7 MCH 29.2 MCHC 32.9 RDW 18.5 H RDW Differential 59.0 H Plt Count 257 MPV 9.6 Immature Gran % (Auto) 0.300 Neut % (Auto) 89.6 H Lymph % (Auto) 6.4 L [place] % (Auto) 3.6 Eos % (Auto) 0.0 Baso % (Auto) 0.1 Absolute Neuts (auto) 17.5 H Absolute Lymphs (auto) 1.26 Total Counted Not Reportable Discharge Activity: May Not Drive Call your doctor if you observe: Fever of 101 or Higher, Change in Color, Shortness of breath, Dizziness, Fainting spells, Chest pain, Prolonged hiccoughing Home Medications: Medications to take at Discharge Amitriptyline HCl [Elavil] 100 mg PO QHS 09/11/16 Multivitamin [Multiple Vitamins] 1 ea PO DAILY 09/11/16 Quetiapine Fumarate [Seroquel] 25 mg PO TID PRN PRN 12/05/16 Gabapentin [Neurontin] 800 mg PO 4X/DAY 04/14/17 Propranolol HCl [Inderal (Beta Danielle)] 10 mg PO BID 07/11/17 omeprazole 20 mg capsule,delayed release 40 mg PO QDAY cap 08/19/17 Aspirin [Aspirin, Baby] 81 mg PO DAILY@0800 10/30/17 fluticasone 100 mcg-umeclid 62.5 mcg-vilant 25 mcg powd for inhalation 1 inh INHALATION QDAY #3 device 02/03/18 Divalproex Sodium [Depakote ER] 1,000 mg PO DAILY 04/03/18 Albuterol Inhaler [Ventolin Hfa] 2 puff INHALATION Q4H PRN PRN #1 inhaler 04/04/18 Guaifenesin [Mucinex] 1,200 mg PO BID #14 tbmp.12hr 04/04/18 Prednisone 10 mg PO UD #30 tab 04/04/18 levoFLOXacin tablet [Levaquin tablet] 500 mg PO DAILY #5 tablet 04/04/18 Following Prescrptions Were Given to Patient: Albuterol Inhaler [Ventolin Hfa] 2 puff INHALATION Q4H PRN PRN #1 inhaler PRN Reason: sob/wheezing levoFLOXacin tablet [Levaquin tablet] 500 mg PO DAILY #5 tablet Prednisone 10 mg PO UD #30 tab Guaifenesin [Mucinex] 1,200 mg PO BID #14 tbmp.12hr Primary Care Physician: Priscilla Nixon MD [Primary Care Provider] - Please follow up with your Primary Care Physician in: in 1-2 weeks Medical Necessity - Tobacco Use Smoking Status: Current every day smoker Tobacco Use: Cigarettes Meaningful Use Info Meaningful Use Diagnoses (Choose all that apply): None applicable Code Visit Inpatient E&M: 13126 Disch Hosp
[2018-04-04] MEDS: Divalproex (ER) 500 MG Tablet 1000 MG PO (10:18)
[2018-04-04] MEDS: Gabapentin 800 MG Tablet PO (10:18)
[2018-04-04] MEDS: Propranolol 10 MG Tablet PO (10:19)
[2018-04-04] MEDS: guaiFENesin 1,200 MG Tablet 1200 MG PO (10:19)
[2018-04-04] MEDS: Pantoprazole Sodium 40 MG Tablet PO (10:20)
--- NOTE | 2018-04-06 15:02 | CASEMGMT ---
Discharge follow-up phone call MISSAEL Chao STRATA: 3 Discharge date: 04-06-18 Adm Dx: CAP Attempted discharge follow-up phone call. No answer. Message left for pt to return call if he has any questions or concerns. Provided pt w/ISIDROU Katharine SHARP's phone number. Koby SILVA RN CM
== END 2018-04-04 11:00 | disposition home or self-care (01) | DRG 871 ==
LOC: ED 06:30 → PCU 08:09
PROVIDERS: Admitting Provider Internal Medicine; Emergency Provider Emergency Medicine; Family Provider Internal Medicine; PCP Internal Medicine; Visit Provider Internal Medicine
DX: A41.9 Sepsis, unspecified organism (principal); J18.9 Pneumonia, unspecified organism; J44.1 Chronic obstructive pulmonary disease with (acute) exacerbation; J44.0 Chronic obstructive pulmonary disease with (acute) lower respiratory infection; G40.909 Epilepsy, unspecified, not intractable, without status epilepticus; K21.9 Gastro-esophageal reflux disease without esophagitis; Z23 Encounter for immunization; F31.9 Bipolar disorder, unspecified; F17.210 Nicotine dependence, cigarettes, uncomplicated; G43.909 Migraine, unspecified, not intractable, without status migrainosus; Z87.820 Personal history of traumatic brain injury; G47.33 Obstructive sleep apnea (adult) (pediatric); F32.9 Major depressive disorder, single episode, unspecified; M48.00 Spinal stenosis, site unspecified; Z72.0 Tobacco use
CPT/HCPCS: 36415; 71045; 80048; 83605; 84484; 85025; 87040; 87449; 87633; 93005; 94002; 94640; 94667; 94668; 97116; 97162; 97165; 99285; 99406; J7030; 90686; A4216

== ENCOUNTER → 2018-04-24 14:43 | Outpatient (CLI) | payer OTHER, SELFPAY ==
--- NOTE | 2018-04-24 14:44 | CT_ITS ---
STUDY: CT CHEST WITHOUT CONTRAST REASON FOR EXAM: Male, 57 years old. Lung nodule. Status post biopsy. RADIATION DOSAGE (If Supplied By Facility): CTDIvol = ( 10.28 ) mGy, DLP = ( 314.24 ) mGycm TECHNIQUE: Transaxial imaging was performed without the administration of intravenous contrast material. Individualized dose optimization techniques were used for this CT. COMPARISON: December 25, 2017. January 16, 2017. FINDINGS: Emphysematous changes. Multiple areas of bronchiectasis. All nodules listed from superior to inferior using axial images series 4. The described nodules are not calcified. New right upper lobe nodule measuring 1.7 x 0.7 cm axial image 75 series 4 and coronal image 49 series 602 posterior aspect of the right upper lobe. 0.8 x 0.5 cm pleural-based nodule posterior pleural surface aspect right lower lobe unchanged axial image 114 series 4. 1.3 x 0.9 cm nodule medial aspect of the right lower lobe axial image 124 new since the prior study. 1.3 x 1.0 cm nodule medial aspect the right lower lobe axial image 144, new since the prior study. Pleural-based nodule lateral pleural surface right lower lobe measuring 0.6 x 0.6 cm axial image 167, unchanged. 0.8 x 0.9 cm pleural-based nodular posterior pleural surface right lower lobe axial image 173, unchanged. Pleural-based nodule posterior pleural surface right lower lobe measuring 0.8 x 0.5 cm unchanged. Previously noted spiculated nodule right lower lobe below the marv on the prior study axial image 117 series 2 measuring 1.9 x 0.8 cm is no longer present. More inferiorly 0.9 x 0.6 cm spiculated lesion axial image 135 series 2 on the prior study is no longer present. . The heart is not enlarged. Coronary artery calcifications. Calcified mediastinal and right hilar lymph nodes. Normal unenhanced pulmonary arteries. Normal aorta arch and descending thoracic aorta. Normal osseous structures. Scattered calcifications in the spleen compatible with old granulomatous disease. CT/Chest without Contrast IMPRESSION: New nodule within the posterior aspect of the right upper lobe and two nodules medial aspect of the right lower lobe, all worrisome for malignancy. Previously noted spiculated nodules right lower lobe on the prior study of December 25, 2017 are no longer visualized. The other above described nodules have remained stable. Emphysematous changes. Bronchiectasis. Old granulomatous disease. Electronically Signed: Thiago Castillo MD at 6:28 EST , Service support ,
== END ==
PROVIDERS: Family Provider Internal Medicine; PCP Internal Medicine; Referring Provider Nurse Practitioner Acute Care; Visit Provider Nurse Practitioner Acute Care
DX: R91.1 Solitary pulmonary nodule (principal)
CPT/HCPCS: 71250

== ENCOUNTER → 2018-05-20 11:06 | Outpatient (CLI) | payer OTHER, SELFPAY ==
[2018-05-14 12:47] VITALS: BMI 24.1
[2018-05-20 12:04] LABS: Rheumatoid Factor < 10.0 IU/mL (<15)
[2018-05-22 11:57] LABS: ANTINUCLEAR ANTIBODIES DIRECT Negative (Negative)
== END ==
PROVIDERS: Family Provider Internal Medicine; PCP Internal Medicine; Referring Provider Internal Medicine Critical Care Medicine; Visit Provider Internal Medicine Critical Care Medicine
DX: R91.1 Solitary pulmonary nodule (principal)
CPT/HCPCS: 36415; 86038; 86200; 86225; 86235; 86256; 86431; 86698; 87385

== ENCOUNTER → 2018-05-25 10:19 | Outpatient (CLI) | payer OTHER, SELFPAY ==
[2018-05-14 12:47] VITALS: BMI 24.1
--- NOTE | 2018-05-25 06:42 | PET_ITS ---
EXAMINATION: FDG PET CT INDICATIONS: A 57-year-old male with reported history of pulmonary nodularity. COMPARISON EXAMINATION: CT of the chest report dated 04/24/18. INDEX LESION SIZE SUV INTERPRETATION Right hemithorax pulmonary parenchyma (n = multiple) 10.2 mm largest (frame 218) 1.8 (max) Quantitative criteria for viable neoplasm are not fulfilled, sequential radiologic investigation recommended TECHNIQUE: Following the intravenous administration of 16.01 mCi of F-18 deoxyglucose via the right antecubital fossa, multiplanar image acquisitions of the neck, chest, abdomen and pelvis to level of mid thigh, obtained at one hour post radiopharmaceutical administration contemporaneously interpreted with the current CT of the neck, chest, abdomen and pelvis to level of mid thigh, dated 05/25/[address] of the chest report dated 04/24/18 reveal: SERUM GLUCOSE LEVEL: 73 mg/dl. HEIGHT: 68 inches. WEIGHT: 160 lbs. FINDINGS: 1. Several nodular foci of increased glucose metabolism are demonstrated in the right hemithorax pulmonary parenchyma to include the right upper and lower lobes generating a calculated maximum standard uptake value of 1.8. The largest corresponding parenchymal density on review of CT of the chest dated 05/25/18 is approximately 10.2 mm (transverse). 2. Normal physiologic distribution of the radiopharmaceutical is apparent in the hepatic (3.0) and splenic parenchyma, both renal units, bladder and visualized intestinal tract. Diffuse intestinal tract activity is noted throughout all four quadrants of the abdominal-pelvic retroperitoneum, mesentery consistent with normal physiologic distribution of the radiopharmaceutical. Prominent left and right ventricular myocardial distribution of the radiopharmaceutical is noted. There is relatively symmetric visualization of the right-left diaphragmatic crura without definitive soft tissue mass formation noted in the retrocrural regions bilaterally. Pertinent CT findings are as follows. CHEST: Parenchymal densities defined in the right hemithorax demonstrate no evidence of quantitatively significant increased glucose metabolism. Centrilobular emphysematous change is noted in the bilateral upper lung zones. Atherosclerotic calcification is defined in the thoracic aorta without evidence of dilatation, aneurysm formation. Coronary arterial calcification is observed. Calcified and noncalcified mediastinal and scattered bilateral axillary soft tissue densities, which express fatty hilus formation are non-glucose avid. ABDOMEN AND PELVIS: Calcified granuloma formation is noted within the splenic parenchyma. Atherosclerotic calcification is defined in the abdominal aorta without evidence of dilatation, aneurysm formation. Right-left inguinal soft tissue densities are ametabolic. Dystrophic calcification is manifest within the prostate gland. Calcified phlebolith formation is noted in the left lower hemipelvis. SKELETAL: Degenerative changes defined in the cervical, thoracic and lumbar spine demonstrate no evidence for glucose hypermetabolism. PET/PET/CT Tumor Base -Thigh Init IMPRESSION: 1. NEGATIVE EXAMINATION. There is no definitive quantitative scintigraphic evidence of viable neoplasm. 2. Increased glucose concentration observed in several locations within the right upper and lower hemithorax pulmonary parenchyma does not fulfill quantitative criteria for viable neoplasm. (Bates et al, Annals of Internal Medicine, 138:724, 2003). 3. Metabolic and/or anatomic stability may be ensured in the right hemithorax pulmonary parenchymal abnormality with repeat FDG PET study and/or CT of the thorax in three months. (Xiu, Journal of Nuclear Medicine 45:88, P2004. Brayden, Seminars in Thoracic and Cardiovascular Surgery 14:292, 2002). Electronic Signature Don Garay D.O. Electronically Signed: Don Garay DO at 22:30 EST Tel , Service support ,
== END ==
PROVIDERS: Family Provider Internal Medicine; PCP Internal Medicine; Referring Provider Internal Medicine Critical Care Medicine; Visit Provider Internal Medicine Critical Care Medicine
DX: R91.1 Solitary pulmonary nodule (principal)
CPT/HCPCS: 78815; A9552

== ENCOUNTER → 2018-06-23 08:07 | Outpatient (CLI) | payer OTHER, SELFPAY ==
[2018-06-22 14:08] VITALS: BMI 24.1
== END ==
PROVIDERS: Family Provider Internal Medicine; PCP Internal Medicine; Referring Provider Nurse Practitioner Acute Care; Visit Provider Nurse Practitioner Acute Care
DX: J44.9 Chronic obstructive pulmonary disease, unspecified (principal)
CPT/HCPCS: 87070; 87205

== ENCOUNTER → 2018-07-10 12:12 | Outpatient (CLI) | payer OTHER, SELFPAY ==
[2018-06-22 14:08] VITALS: BMI 24.1
[2018-07-10 13:11] LABS: AST(SGOT) 20 U/L (15-37); Alanine Aminotransfer ALT/SGPT 22 U/L (16-61); Albumin, Serum 3.3 g/dL (3.2-5.0); Alkaline Phosphatase 84 U/L (45-117); Bilirubin, Direct 0.13 mg/dL (0.00-0.30); Globulin 3.7 g/dL (2.2-4.2)
[2018-07-10 13:29] LABS: Valproic Acid (Depakene) Level 7 ug/mL (50-100)
== END ==
PROVIDERS: Family Provider Internal Medicine; PCP Internal Medicine; Referring Provider Clinical Nurse Specialist Acute Care; Visit Provider Clinical Nurse Specialist Acute Care
DX: R56.9 Unspecified convulsions (principal); R51 Headache
CPT/HCPCS: 36415; 80076; 80164

== ENCOUNTER → 2018-07-20 11:20 | Outpatient (CLI) | payer OTHER, SELFPAY ==
[2018-06-22 14:08] VITALS: BMI 24.1
== END ==
PROVIDERS: Family Provider Internal Medicine; PCP Internal Medicine; Referring Provider Clinical Nurse Specialist Acute Care; Visit Provider Clinical Nurse Specialist Acute Care
DX: R56.9 Unspecified convulsions (principal); R51 Headache
CPT/HCPCS: 82140

== ENCOUNTER → 2018-09-17 12:44 | Outpatient (CLI) | payer OTHER, SELFPAY ==
[2018-06-22 14:08] VITALS: BMI 24.1
--- NOTE | 2018-09-17 15:11 | PFTCOMP ---
COMPLETE PULMONARY FUNCTION TEST INTERPRETATION Brief HPI: Patient is a 57 year old male, currently under the care of Tammy Stone, who presents to [facility] for complete pulmonary function tests secondary to diagnosis of COPD. Respiratory therapist reports good effort and reproducible results. Interpretation: Forced expiration spirometry shows a severe large airways obstructive ventilatory defect with an FEV1 of 46% predicted. There is no significant bronchodilator response by strict ATS criteria. Spirograms are of good quality and plateau slowly, indicating slowly emptying areas of the lungs. The respiratory flow volume loop shows decreased expiratory flow rates at all lung volumes consistent with airway obstruction. Lung volumes by body plethysmography show a normal total lung capacity at 6.34 L, 101% predicted. All other lung volumes are within normal limits. Diffusion capacity by carbon monoxide is decreased at 67% predicted. The airway resistance is elevated. Compared to previous pulmonary function tests from 10/16/2017, there has been a significant improvement in FEV1 and DLCO by 23% and 62% respectively. Impression: Irreversible severe large airways obstructive ventilatory defect with a symmetric reduction diffusing capacity and significant improvement compared to previous study. Patient did use inhalers prior to study, which may account for improvement.
== END ==
LOC: PSN 12:44
PROVIDERS: Family Provider Internal Medicine; PCP Internal Medicine; Referring Provider Nurse Practitioner Acute Care; Visit Provider Nurse Practitioner Acute Care
DX: J44.9 Chronic obstructive pulmonary disease, unspecified (principal)
CPT/HCPCS: 94060; 94726; 94729

== ENCOUNTER → 2018-09-21 12:36 | Outpatient (CLI) | payer OTHER, SELFPAY ==
[2018-06-22 14:08] VITALS: BMI 24.1
[2018-09-21 12:40] VITALS: PULSE 101; PULSE 102; PULSE 103; PULSE 81; PULSE 85; PULSE 90; PULSE 97; PULSE 99; O2SAT 93; O2SAT 94; O2SAT 95
--- NOTE | 2018-09-22 13:25 | PCM.PSN.6M ---
PSN 6 Minute Walk Test - 6 Minute Walk Test 6 Minute Walk Test: 6 Minute Walk Test PSN:6-Minute Walk Test Start: 09/21/18 13:52 Freq: Status: Active Protocol: [id number] Document 09/21/18 12:40 [facility] (Rec: 09/21/18 13:56 [facility] [id number]) 6 Minute Walk Test Date Performed 09/21/18 Time Performed 12:40 Height 5 ft 8 in Weight: 160 lb Weight in Pounds 160.[address]: Tammy Stone Assistive device used: None Pre-test Oxygen Delivery Method Room Air Pulse Ox (%) 95 Pulse Rate (60-100 beats/min) 81 Dyspnea Meron Scale (0-10) 0 Exertion Meron Scale (6-20) 6 1st minute Oxygen Delivery Method Room Air Pulse Ox (%) 95 Pulse Rate (60-100 beats/min) 90 Number of Rests Taken 0 2nd minute Oxygen Delivery Method Room Air Pulse Ox (%) 93 Pulse Rate (60-100 beats/min) 97 Number of Rests Taken 0 3rd minute Oxygen Delivery Method Room Air Pulse Ox (%) 94 Pulse Rate (60-100 beats/min) 99 Number of Rests Taken 0 4th minute Oxygen Delivery Method Room Air Pulse Ox (%) 94 Pulse Rate (60-100 beats/min) 103 H Number of Rests Taken 0 5th minute Oxygen Delivery Method Room Air Pulse Ox (%) 95 Pulse Rate (60-100 beats/min) 102 H Number of Rests Taken 0 6th minute Oxygen Delivery Method Room Air Pulse Ox (%) 95 Pulse Rate (60-100 beats/min) 101 H Number of Rests Taken 0 Post-test Oxygen Delivery Method Room Air Pulse Ox (%) 95 Pulse Rate (60-100 beats/min) 85 Dyspnea Meron Scale (0-10) 1 Exertion Meron Scale (6-20) 12 Number of Rests Taken 0 Full Laps Walked 20 Partial Lap, Number of Tiles Walked 0 Total Distance Walked (ft) 1180 - Interpretation Interpretation: The patient ambulated 1180 feet over the course of 6 minutes beginning on room air without assistive devices or breaks. Pretesting oxygen saturation was noted to be 95% on room air. With ambulation, the niko oxygen saturation was 93%. There was no significant exertional oxygen desaturation. - Recommendations Recommendations: There is no indication for the use of supplemental oxygen at this time.
== END ==
LOC: PSN 12:37
PROVIDERS: Family Provider Internal Medicine; PCP Internal Medicine; Referring Provider Nurse Practitioner Acute Care; Visit Provider Nurse Practitioner Acute Care
DX: J44.9 Chronic obstructive pulmonary disease, unspecified (principal)
CPT/HCPCS: 94618

== ENCOUNTER 2019-03-17 00:01 | Emergency (ER) | payer MEDICARE, MEDICAID, SELFPAY ==
[2018-09-28 13:49] VITALS: BMI 24.9
[2019-03-17 00:02] VITALS: BP 117/79; PULSE 87; RESP 16; TEMP 36.7; O2SAT 97; BMI 23.0
--- NOTE | 2019-03-17 01:11 | CT_ITS ---
STUDY: CT BRAIN WITHOUT CONTRAST REASON FOR EXAM: Male, 58 years old. Seizure. RADIATION DOSAGE (If Supplied By Facility): CTDIvol = ( 44.99 ) mGy, DLP = ( 829.85 ) mGycm TECHNIQUE: Transaxial CT imaging of the brain was performed without administration of intravenous contrast material. Individualized dose optimization techniques were used for this CT. COMPARISON: 10/30/2017 FINDINGS: Normal soft tissue structures. Normal calvarium. Normal size ventricles and extra-axial spaces for the patient's age. 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 There has been no significant change since the previous study. Normal basal ganglia and thalami. Normal brainstem. Normal cerebellum. There is no intracranial hemorrhage. There are no findings of an acute ischemic infarction. Normal visualized paranasal sinuses. 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 There has been no significant change since the previous study. Electronically Signed: Allan Berry, at 2:10 EDT Tel , Service support ,
--- NOTE | 2019-03-17 01:11 | RAD_ITS ---
STUDY: X-RAY CHEST REASON FOR EXAM: Male, 58 years old. Seizure. TECHNIQUE: Single AP portable view of the chest. COMPARISON: 04/03/2018 FINDINGS: The lungs are clear and expanded. There is no demonstrated pleural abnormality. Normal size heart. Normal mediastinum and noreen. Normal visualized pulmonary arteries. Normal visualized aortic arch and descending thoracic aorta. Normal visualized thoracic spine. Normal visualized ribs, clavicles, and shoulders. There is no demonstrated abnormality of the visualized soft tissue structures of the upper abdomen. RAD/Chest 1 View (Portable) IMPRESSION: No demonstrated acute cardiopulmonary process. Electronically Signed: Allan Berry, at 2:07 EDT Tel , Service support ,
--- NOTE | 2019-03-17 01:11 | EKG12_ITS ---
Test Reason : SEIZURE Blood Pressure : / mmHG Vent. Rate : 076 BPM Atrial Rate : 076 BPM P-R Int : 162 ms QRS Dur : 110 ms QT Int : 402 ms P-R-T Axes : 065 073 063 degrees QTc Int : 452 ms Normal sinus rhythm Normal ECG Confirmed by VICKI ROMERO ([id number]), supervising film or videotape editor NINA RUIZ ([id number]) on 03/22/2019 12:13:10 PM Referred By: LIZBETH Confirmed By:VICKI ROMERO
--- NOTE | 2019-03-17 01:12 | ED.VIS.GEN ---
History of Present Illness Chief Complaint: Seizure Narrative: Patient is a 58-year-old male who presents with altered mental status. He was working on a shed today. A circular saw fell and hit on the left side of the face. Today his went to check on him before presentation here to the emergency department and he was standing in the bathroom staring and confused. He does have a history of seizure disorder and is on multiple antiepileptics however no seizure-like activity was witnessed today and he was standing when she entered the room. She otherwise states he has been in his usual state of health without any recent illness. Review of systems was unable to be obtained from the patient due to his altered mental status. Past Medical History - Allergies and Home Meds Allergies/Adverse Reactions: Allergies dextromethorphan HBr [From NyQuil] Adverse Reaction (Intermediate, Verified 03/17/19 00:07) tachycardia, feels anxious doxylamine [From NyQuil] Adverse Reaction (Intermediate, Verified 03/17/19 00:07) Tachycardia, feels anxious pseudoephedrine HCl [From NyQuil] Adverse Reaction (Intermediate, Verified 03/17/19 00:07) Tachycardia, feels anxious sertraline HCl [From Zoloft] Adverse Reaction (Verified 03/17/19 00:07) Diarrhea Primary Care Physician: Priscilla Nixon MD [Primary Care Provider] - Past Medical History: - - Seizure disorder Surgical History: - - Tennis elbow, Left ankle, TBI with encephalamalacia, Inguinal hernia. Smoking Status: Current every day smoker - Family History Maternal Family History: Family History (Last Reviewed 09/28/18 @ 13:48 by Mildred Theodore) Father Dementia Alzheimers disease Diabetes Mother Diabetes Family History: Reports: Diabetes Paternal Family History: Family History (Last Reviewed 09/28/18 @ 13:48 by Mildred Theodore) Father Dementia Alzheimers disease Diabetes Mother Diabetes Family History: Reports: Cancer, Heart Disease Review of Systems ROS: Unable to Obtain Physical Exam Vital Signs/Narrative: Vital Signs Temp Pulse Resp BP Pulse Ox 03/17/19 00:02 98.0 F 87 16 117/79 97 Inital Vital Signs reviewed: Yes General: Well nourished, Well developed Head: - - Left-sided facial soft tissue swelling and ecchymosis Eyes: Perrl ENT: Moist mucous membranes Neck: Supple Cardiovascular: - - Heart is regular rate and rhythm no murmur gallop or rub Respiratory: No distress, CTA bilaterally Abdomen: Soft, Nontender Extremities: Nontender Skin: Normal color Neurological: - - Patient is lethargic, he did arouse to sternal rub, he knows that he is at [facility] [place] but is unable to tell me the month and when asked his age states 21 he does move all 4 extremities he does not appear to have any focal or lateralizing neurological deficits no facial droop or weakness Psychological: Normal affect Diagnostic/Tx/Re-eval Impressions Brain CT 03/17/19 01:11 IMPRESSION: 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 There has been no significant change since the previous study. Electronically Signed: Allan Berry, at 2:10 EDT Tel , Service support , Chest X-Ray 03/17/19 01:11 IMPRESSION: No demonstrated acute cardiopulmonary process. Electronically Signed: Allan Berry, at 2:07 EDT Tel , Service support , 03/17/19 01:11 CT Head [Brain/Head without Contrast] [CT] Stat Chest 1 View (Portable) [RAD] Stat Laboratory Results 03/17/19 03/17/19 03/17/19 01:20 01:20 01:20 WBC 7.0 RBC 4.38 L Hgb 12.8 L Hct 39.1 L MCV 89.3 MCH 29.2 MCHC 32.7 RDW Std Deviation 52.6 H RDW Coeff of Aaron 15.9 H Plt Count 295 MPV 9.3 Immature Gran % (Auto) 0.100 Neut % (Auto) 47.8 Lymph % (Auto) 40.3 Larimer % (Auto) 9.4 Eos % (Auto) 1.8 Baso % (Auto) 0.6 Absolute Neuts (auto) 3.4 Absolute Lymphs (auto) 2.83 Nucleated RBC % 0 Specimen Type Sample Site pH Bicarbonate Actual POC Total CO2 Base Excess O2 Saturation ABG pCO2 ABG pO2 Mike Test O2 Delivery Device Blood Gas Notified Whom Sodium 140 Potassium 3.8 Chloride 109 H Carbon Dioxide 26.0 Anion Gap 5 BUN 20 H Creatinine 1.03 Estim Creat Clear Calc 77.48 Est GFR (MDRD) Af Amer 96 Est GFR (MDRD) Non-Af 79 BUN/Creatinine Ratio 19.4 Glucose 92 Calcium 8.5 Total Bilirubin 0.30 AST 12 L ALT 17 Alkaline Phosphatase 67 Total Protein 6.4 Albumin 3.3 Globulin 3.1 Albumin/Globulin Ratio 1.1 Valproic Acid Ethyl Alcohol < 3.0 03/17/19 03/17/19 01:20 01:33 WBC RBC Hgb Hct MCV MCH MCHC RDW Std Deviation RDW Coeff of Aaron Plt Count MPV Immature Gran % (Auto) Neut % (Auto) Lymph % (Auto) Larimer % (Auto) Eos % (Auto) Baso % (Auto) Absolute Neuts (auto) Absolute Lymphs (auto) Nucleated RBC % Specimen Type ART Sample Site L Radial pH 7.34 L Bicarbonate Actual 22.9 POC Total CO2 24 Base Excess -3 L O2 Saturation 94 L ABG pCO2 42.2 ABG pO2 73 L Mike Test POS O2 Delivery Device Room Air Blood Gas Notified Whom ED MD Sodium Potassium Chloride Carbon Dioxide Anion Gap BUN Creatinine Estim Creat Clear Calc Est GFR (MDRD) Af Amer Est GFR (MDRD) Non-Af BUN/Creatinine Ratio Glucose Calcium Total Bilirubin AST ALT Alkaline Phosphatase Total Protein Albumin Globulin Albumin/Globulin Ratio Valproic Acid 24 L Ethyl Alcohol - Medical Decision Making Patient underwent the above work-up. Laboratory studies and imaging are unremarkable. EKG shows normal sinus rhythm at a rate of 76. On reevaluation patient is awake, alert, answering all questions appropriately. He is able to tell me appropriate age, month, place. He is able to provide me a clear history of the events from earlier today. His transient altered mental status may be related to concussion. However at this time he is back to his baseline mental status with an unremarkable work-up and I do not see an indication for hospitalization. Patient and family are agreeable with the plan for discharge and outpatient follow-up but do understand to return for any new or worsening symptoms. ED Disposition - Plan for ED Patient: Disposition: Home or Assisted Living Diagnosis: Altered mental status, Head injury Instructions: Confusion, HEAD INJURY, No Wake-Up (Adult) Referrals: Priscilla Nixon MD [Primary Care Provider] -
[2019-03-17 01:23] LABS: Absolute Lymphocyte Count 2.83 X10^3/uL (0.83-4.51); Absolute Neutrophil Count 3.4 X10^3/uL (2.0-7.7); Basophil# 0.04 X10^3/uL; Basophil% 0.6 % (0-1); Eosinophil# 0.13 X10^3/uL; Eosinophils% 1.8 % (0-5); Hematocrit 39.1 % (40-54); Hemoglobin 12.8 g/dL (13.0-16.5); Lymphocyte # 2.83 X10^3/ul (4.0); Lymphocyte % 40.3 % (19-41); Mean Corp Hgb Conc 32.7 g/dL (32-36); Mean Corpuscular Hgb 29.2 pg (27.0-32.0); Mean Corpuscular Volume 89.3 fL (80-94); Mean Platelet Vol. 9.3 fl (6.2-12.0); Monocyte# 0.66 X10^3/uL; Monocyte% 9.4 % (0-10); NRBC Flagged by Analyzer 0 % (0-5); Neutrophil # 3.36 X10^3/uL (2.7-7.7); Neutrophil % 47.8 % (47-70); Platelet Count 295 K/mm3 (150-450); RBC Distribution Width CV 15.9 % (11.6-14.6); RBC Distribution Width SD 52.6 fl (35.1-43.9); Red Blood Count 4.38 M/mm3 (4.6-6.2)
[2019-03-17 01:40] VITALS: BP 107/82; PULSE 75; RESP 16; O2SAT 95
[2019-03-17 01:40] LABS: ALB/GLOB Ratio 1.1 RATIO (0.9-2.4); AST(SGOT) 12 U/L (15-37); Alanine Aminotransfer ALT/SGPT 17 U/L (16-61); Albumin, Serum 3.3 g/dL (3.2-5.0); Alkaline Phosphatase 67 U/L (45-117); Anion Gap 5 (5-15); BUN 20 mg/dL (7-18); BUN/Creat Ratio 19.4 RATIO (10-20); Calcium,Total 8.5 mg/dL (8.5-10.1); Chloride 109 mmol/L (98-107); Creatinine, Serum 1.03 mg/dL (0.70-1.30); EST Glomerular Filtration Rate 79 mL/min (>60); Est Glom Filt Rate - Afr Amer 96 mL/min (>60); Estimated Creatinine Clearance 77.48 ml/min; Globulin 3.1 g/dL (2.2-4.2); Glucose 92 mg/dL (74-106); Potassium 3.8 mmol/L (3.5-5.1); Protein, Total 6.4 g/dL (6.4-8.2); Sodium Level 140 mmol/L (136-145)
[2019-03-17 01:40] LABS: Allen Test POS; Base Excess -3 mmol/L (-2 to +2); Bicarbonate 22.9 mmol/L (22-26); Blood Gas Specimen Type ART; O2 Delivery Device Room Air; PO2 73 mmHG (75-100); SITE L Radial; SO2 94 % (95-99); Total Carbon Dioxide 24 mmol/L; pCO2 42.2 mmHg (35-45); pH 7.34 (7.35-7.45)
[2019-03-17 01:47] LABS: Alcohol, Blood (Medical)-Serum < 3.0 mg/dL
[2019-03-17 01:57] LABS: Valproic Acid (Depakene) Level 24 ug/mL (50-100)
[2019-03-17 02:44] VITALS: BP 117/90; PULSE 76; RESP 16; O2SAT 96
== END 2019-03-17 02:45 | disposition home or self-care (01) ==
PROVIDERS: Emergency Provider Emergency Medicine; Family Provider Internal Medicine; PCP Internal Medicine
DX: R41.82 Altered mental status, unspecified (principal); S09.90XA Unspecified injury of head, initial encounter; S00.83XA Contusion of other part of head, initial encounter; W20.8XXA Other cause of strike by thrown, projected or falling object, initial encounter; Y93.9 Activity, unspecified; Y92.9 Unspecified place or not applicable; Y99.9 Unspecified external cause status; G40.909 Epilepsy, unspecified, not intractable, without status epilepticus; F17.200 Nicotine dependence, unspecified, uncomplicated; Z79.82 Long term (current) use of aspirin; Z79.899 Other long term (current) drug therapy
CPT/HCPCS: 36600; 70450; 71045; 80053; 80164; 80320; 82803; 85025; 93005; 99285; J7030; A4216; G0480

== ENCOUNTER → 2019-03-24 13:16 | Outpatient (CLI) | payer MEDICARE, MEDICAID, SELFPAY ==
[2019-03-17 00:02] VITALS: BMI 23.0
--- NOTE | 2019-03-24 13:43 | MRI_ITS ---
STUDY: MRI BRAIN WITHOUT CONTRAST REASON FOR EXAM: Male, 58 years old. Head injury, headache TECHNIQUE: Standardized multiplanar fat and water weighted pulse sequences were obtained. COMPARISON: 07/12/2017 FINDINGS: There is mild cerebral atrophy with widening of the extra-axial spaces and ventricular dilatation. Normal white matter tracts of the supratentorial brain. There is no evidence for recent intracranial ischemia or other cause of cytotoxic edema on diffusion weighted imaging (DWI). Normal T2* images of the brain without demonstrated susceptibility artifact. There is no demonstrated hemosiderin stain. No change in the encephalomalacia and gliosis in the right parietal lobe likely greater prior infarct or injury. Normal bilateral basal ganglia. Normal thalami. There is no extra-axial fluid accumulation. Normal flow voids within the major intracranial circulation suggesting patency by spin echo criteria. Normal sella turcica, pituitary gland, infundibular stalk, optic chiasm and hypothalamus. Normal tectal plate and pineal gland. Normal midbrain, giacomo and medulla. Normal cerebellum. Normal basal cisterns. Normal bilateral temporal bones. Normal bilateral internal auditory canals. No demonstrated orbital abnormality, within the constraints of a routine brain study. Normal visualized paranasal sinuses. Normal calvarium and skull base. Normal visualized soft tissue structures. Normal visualized upper cervical spine. MRI/Brain without Contrast IMPRESSION: No change from 07/12/2017. Electronically Signed: Don Loera MD at 15:27 EDT Tel , Service support ,
== END ==
PROVIDERS: Family Provider Internal Medicine; PCP Internal Medicine; Referring Provider Nurse Practitioner Family; Visit Provider Nurse Practitioner Family
DX: S09.90XA Unspecified injury of head, initial encounter (principal)
CPT/HCPCS: 70551

== ENCOUNTER → 2019-04-12 06:45 | Outpatient (CLI) | payer MEDICARE, MEDICAID, SELFPAY ==
[2019-03-30 14:20] VITALS: BMI 22.9
--- NOTE | 2019-04-12 06:47 | CT_ITS ---
STUDY: CT CHEST WITHOUT CONTRAST REASON FOR EXAM: Male, 58 years old. Pulmonary nodule RADIATION DOSAGE (If Supplied By Facility): DLP = ( 320.15 ) mGycm TECHNIQUE: Transaxial imaging was performed without the administration of intravenous contrast material. Coronal and sagittal reformatted images were created. Individualized dose optimization techniques were used for this CT. COMPARISON: PET CT May 25, 2018 FINDINGS: Stable emphysema is present. Multiple scattered bilateral pulmonary nodules are again seen and not significant changed, the largest in the super segment of the right lower lobe which measures 5 mm. There are no significant new nodules. There is no consolidation. Right lung base scarring is present. Stable bronchiectasis is present. The heart and pericardium are within normal limits. Calcified mediastinal lymph nodes are present. There is no evidence of thoracic aortic aneurysm. Images through the upper abdomen demonstrate no significant abnormality. Punctate nonobstructing bilateral renal calcifications are present. Right renal cysts are present. There are no destructive osseous lesions. CT/Chest without Contrast IMPRESSION: Multiple scattered bilateral pulmonary nodules measuring up to 5 mm, not significantly changed since the comparison evaluation. Differential is unchanged and includes infectious, inflammatory, and neoplastic causes. Stable emphysema. Stable bronchiectasis. Electronically Signed: Jacky Dorsey, at 17:24 EDT Tel , Service support ,
== END ==
PROVIDERS: Family Provider Internal Medicine; PCP Internal Medicine; Referring Provider Internal Medicine Critical Care Medicine; Visit Provider Internal Medicine Critical Care Medicine
DX: R91.1 Solitary pulmonary nodule (principal); F17.210 Nicotine dependence, cigarettes, uncomplicated
CPT/HCPCS: 71250

== ENCOUNTER 2019-06-04 08:44 | Emergency (ER) | payer MEDICARE, MEDICAID, SELFPAY ==
[2019-03-30 14:20] VITALS: BMI 22.9
[2019-06-04] VITALS (9 sets, daily range): BP systolic 93–101; BP diastolic 63–72; PULSE 76–105; RESP 16–25; TEMP 36.7–38.5; O2SAT 92–94; BMI 23.0
--- NOTE | 2019-06-04 09:08 | EKG12_ITS ---
Test Reason : Blood Pressure : / mmHG Vent. Rate : 088 BPM Atrial Rate : 088 BPM P-R Int : 154 ms QRS Dur : 110 ms QT Int : 380 ms P-R-T Axes : 068 091 064 degrees QTc Int : 459 ms Normal sinus rhythm Rightward axis Borderline ECG Confirmed by SHIRLEY ARBOLEDA, MARLON ([id number]), desk editor HONG ELIAS ([id number] on 06/07/2019 1:27:57 PM Referred By: AURORA Confirmed By:MARLON WATSON MD
[2019-06-04] MEDS: 0.9% Normal Saline 1,000 ML 999 ML IV ×2 (09:10→10:35)
--- NOTE | 2019-06-04 09:10 | CT_ITS ---
STUDY: CT BRAIN WITHOUT CONTRAST REASON FOR EXAM: Male, 58 years old. CONFUSION, AMS, FEVER, HX TBI RADIATION DOSAGE (If Supplied By Facility): CTDIvol = ( 44.99 ) mGy, DLP = ( 829.85 ) mGycm TECHNIQUE: Transaxial CT imaging of the brain was performed without administration of intravenous contrast material. Individualized dose optimization techniques were used for this CT. COMPARISON: Comparison is made with prior study dated March 17, 2019. FINDINGS: Normal soft tissue structures. Normal calvarium. There is mild cerebral atrophy with widening of the extra-axial spaces and ventricular dilatation. Stable focal area of the encephalomalacia in the right temporal parietal lobe in the distribution of the right middle cerebral artery. This is unchanged. Normal basal ganglia and thalami. Normal brainstem. Normal cerebellum. There is no intracranial hemorrhage. There are no findings of an acute ischemic infarction. Minimal mucosal thickening of the posterior aspect of the right ethmoid sinus. CT/Brain/Head without Contrast IMPRESSION: Chronic involutional changes of the brain. Electronically Signed: Bijan Oliveira, at 10:11 EST , Service support ,
--- NOTE | 2019-06-04 09:10 | RAD_ITS ---
STUDY: X-RAY CHEST REASON FOR EXAM: Male, 58 years old. SOB/DYSPNEA TECHNIQUE: Single AP portable view of the chest. COMPARISON: Comparison is made with prior study dated March 17, 2019. FINDINGS: EKG electrodes are seen. There is blunting of the right costophrenic angle. Mild increased markings at the lung bases suggestive of bibasilar atelectasis. There is no demonstrated pleural abnormality. Normal size heart. Normal mediastinum and noreen. Normal visualized pulmonary arteries. Normal visualized aortic arch and descending thoracic aorta. Normal visualized thoracic spine. Normal visualized ribs, clavicles, and shoulders. There is no demonstrated abnormality of the visualized soft tissue structures of the upper abdomen. RAD/Chest 1 View (Portable) IMPRESSION: Blunting of the right current screening angle with mild degree of increased markings at the bases suggestive of bibasilar atelectasis Electronically Signed: Bijan Oliveira, at 9:42 EST , Service support ,
--- NOTE | 2019-06-04 09:12 | ED.DCSUM_ITS ---
History of Present Illness Chief Complaint: Shortness of Breath Informant: Patient, Spouse/S.O. Onset: Yesterday Activity at onset: - - gradual onset Timing: Continuous Quality: Wheezing Current Severity: Moderate Maximum Severity: Severe Worsened by: Coughing, Exertion Relieved by: Albuterol, Rest Associated Symptoms: Cough, Fever, Sweats. Negative for: Bloody Sputum Chest Pain: None Narrative: Patient with a history of COPD and continues to smoke, therefore unknown how long his cough is been worse but at least a week, patient denies sputum production to any significant degree, became more short of breath overnight and this morning is disoriented, sweaty, malaised, dyspneic and hypoxic in the 80s at home. gave him a breathing treatment of albuterol which seemed to help his breathing and his pulse ox. Patient denies any chest pain, GI symptoms, swelling in his lower extremities, or orthopnea. Further history obtained outside of the room, patient is currently being worked up for dementia. It runs in his family and the disorientation is worse now that he has a fever, but not necessarily new. He also has a history of a traumatic brain injury. Prior similar symptoms: Yes - intubated in past for COPD/pneumonia Recent Illness/Hospitalization: No - Past Medical History (1) Bipolar disorder Status: Chronic (2) COPD (chronic obstructive pulmonary disease) Status: Chronic (3) Diastolic dysfunction Status: Chronic (4) GERD (gastroesophageal reflux disease) Status: Chronic (5) Lung nodule Status: Chronic (6) Migraine Status: Chronic (7) Nicotine dependence, cigarettes, uncomplicated Status: Chronic (8) LACEY (obstructive sleep apnea) Status: Chronic Comment: CPAP 11 cm of water (9) Seizure disorder Status: Chronic (10) Spinal stenosis Status: Chronic (11) Traumatic brain injury Status: Chronic Past Medical History - Allergies and Home Meds Allergies/Adverse Reactions: Allergies dextromethorphan HBr [From NyQuil] Adverse Reaction (Intermediate, Verified 06/04/19 09:38) tachycardia, feels anxious doxylamine [From NyQuil] Adverse Reaction (Intermediate, Verified 06/04/19 09:38) Tachycardia, feels anxious pseudoephedrine HCl [From NyQuil] Adverse Reaction (Intermediate, Verified 06/04/19 09:38) Tachycardia, feels anxious sertraline HCl [From Zoloft] Adverse Reaction (Verified 06/04/19 09:38) Diarrhea Primary Care Physician: Priscilla Nixon MD [Primary Care Provider] - Surgical History: herniorrhaphy, - - Tennis elbow, Left ankle, TBI with encephalamalacia, Inguinal hernia. Lives: With Family Smoking Status: Current every day smoker Drugs: None - Family History Maternal Family History: Family History (Last Reviewed 09/28/18 @ 13:48 by Mildred Theodore) Father Dementia Alzheimers disease Diabetes Mother Diabetes Family History: Reports: Diabetes Paternal Family History: Family History (Last Reviewed 09/28/18 @ 13:48 by Mildred Theodore) Father Dementia Alzheimers disease Diabetes Mother Diabetes Family History: Reports: Cancer, Heart Disease Review of Systems General: Reports: Chills, Fever, Malaise, Sweats Eyes: Denies: Visual changes - bilaterally, Diplopia ENT: Denies: Rhinorrhea, Sore throat Cardiovascular: Denies: Chest pain, Palpitations Respiratory: Reports: Dyspnea, Cough, Dyspnea on exertion. Denies: Orthopnea Gastrointestinal: Denies: Abdominal pain, Nausea, Vomiting, Diarrhea, Melena, Hematochezia Genitourinary: Denies: Dysuria, Hematuria, Frequency Musculoskeletal: Denies: Back pain, Swelling, Extremity Pain Skin: Denies: Rash, Wounds Neurological: Reports: - - Disorientation. Denies: Headache, Weakness, Numbness Physical Exam Vital Signs/Narrative: Vital Signs Temp Pulse Resp BP Pulse Ox 06/04/19 08:45 101.3 F H 105 H 25 H 93/70 94 Inital Vital Signs reviewed: Yes General: Well nourished, Well developed, No Acute Distress - Ill-appearing and tachypneic but in no distress Head: Normocephalic, Atraumatic Eyes: Perrl, EOMI ENT: Moist mucous membranes, No rhinorrhea, TM's clear, - - Posterior oropharynx clear, airway patent without stridor Neck: Supple, Nontender, No lymphadenopathy, No JVD Cardiovascular: Regular rate, Regular rhythm, No murmurs, Normal S1, Normal S2, Tachycardia Respiratory: No distress, CTA bilaterally, Chest nontender Abdomen: Soft, Nontender, Nondistended, Normal bowel sounds Back: Nontender, Normal Inspection. Negative for: CVA tenderness Extremities: Nontender, No edema Skin: Normal color, No rash, Diaphoresis, No Trauma Neurological: Alert, Oriented x3 - Answers orientation questions correctly. Is somewhat disoriented when discussing symptoms and events at home with his ., Cranial nerves II-XII grossly intact, Normal Strength, Normal Sensation Psychological: Normal affect, Normal Mood Diagnostic/Tx/Re-eval Impressions Brain CT 06/04/19 09:10 IMPRESSION: Chronic involutional changes of the brain. Electronically Signed: Bijan Tee, at 10:11 EST , Service support , Chest X-Ray 06/04/19 09:10 IMPRESSION: Blunting of the right current screening angle with mild degree of increased markings at the bases suggestive of bibasilar atelectasis Electronically Signed: Bijan Oliveira, at 9:42 EST , Service support , 06/04/19 09:10 Brain/Head without Contrast [CT] Stat Chest 1 View (Portable) [RAD] Stat 06/04/19 09:55 Mucosa - Nose Influenza Types A,B Direct FA ([facility]) - Final Laboratory Results 06/04/19 06/04/19 06/04/19 08:50 09:00 09:00 WBC 9.4 RBC 4.79 Hgb 13.4 Hct 42.2 MCV 88.1 MCH 28.0 MCHC 31.8 L RDW Std Deviation 50.0 H RDW Coeff of Aaron 15.3 H Plt Count 201 MPV 9.5 Immature Gran % (Auto) 0.500 Neut % (Auto) 83.6 H Lymph % (Auto) 7.4 L Custer % (Auto) 8.4 Eos % (Auto) 0.0 Baso % (Auto) 0.1 Absolute Neuts (auto) 7.8 H Absolute Lymphs (auto) 0.69 L Nucleated RBC % 0 PT 13.1 INR 1.0 APTT 35.7 Specimen Type Sample Site pH Bicarbonate Actual POC Total CO2 Base Excess O2 Saturation ABG pCO2 ABG pO2 Mike Test O2 Delivery Device Blood Gas Notified Whom Blood Gas Notified Time Sodium Potassium Chloride Carbon Dioxide Anion Gap BUN Creatinine Estim Creat Clear Calc Est GFR (MDRD) Af Amer Est GFR (MDRD) Non-Af BUN/Creatinine Ratio Glucose Lactic Acid Calcium Total Bilirubin AST ALT Alkaline Phosphatase Troponin I Total Protein Albumin Globulin Albumin/Globulin Ratio Urine Color Yellow Urine Clarity Clear Urine pH 6.5 Ur Specific [place] 1.015 Urine Protein 30 H Urine Glucose (UA) Normal Urine Ketones 5 H Urine Occult Blood Negative Urine Nitrite Negative Urine Bilirubin Negative Urine Urobilinogen Normal Ur Leukocyte Esterase 25 H Urine RBC 0 SEEN Urine WBC 0-5 SEEN Ur Squamous Epith Cells 0 SEEN Urine Bacteria 0 SEEN Urine Mucus 0 SEEN 06/04/19 06/04/19 06/04/19 09:00 09:00 10:43 WBC RBC Hgb Hct MCV MCH MCHC RDW Std Deviation RDW Coeff of Aaron Plt Count MPV Immature Gran % (Auto) Neut % (Auto) Lymph % (Auto) Custer % (Auto) Eos % (Auto) Baso % (Auto) Absolute Neuts (auto) Absolute Lymphs (auto) Nucleated RBC % PT INR APTT Specimen Type ART Sample Site L Radial pH 7.40 Bicarbonate Actual 25.5 POC Total CO2 27 Base Excess 1 O2 Saturation 92 L ABG pCO2 41.5 ABG pO2 63 L Mike Test POS O2 Delivery Device Room Air Blood Gas Notified Whom ED Blood Gas Notified Time 1030 Sodium 134 L Potassium 4.5 Chloride 99 Carbon Dioxide 31.0 Anion Gap 4 L BUN 17 Creatinine 1.05 Estim Creat Clear Calc 76.00 Est GFR (MDRD) Af Amer 94 Est GFR (MDRD) Non-Af 78 BUN/Creatinine Ratio 16.2 Glucose 97 Lactic Acid 1.3 Calcium 8.0 L Total Bilirubin 0.10 L AST 17 ALT 15 L Alkaline Phosphatase 79 Troponin I < 0.015 Total Protein 7.1 Albumin 3.3 Globulin 3.8 Albumin/Globulin Ratio 0.9 Urine Color Urine Clarity Urine pH Ur Specific [place] Urine Protein Urine Glucose (UA) Urine Ketones Urine Occult Blood Urine Nitrite Urine Bilirubin Urine Urobilinogen Ur Leukocyte Esterase Urine RBC Urine WBC Ur Squamous Epith Cells Urine Bacteria Urine Mucus Treatment - Dyspnea: Oxygen, Albuterol, Atrovent, Antibiotics, Steroid Repeat Evaluation: Improved With Ambulation: Asymptomatic - and no desaturation - Medical Decision Making After treatment, patient is very well-appearing and at his baseline according to his and family. I suspect his fever, on top of his possible early dementia, was causing his delirium/disorientation. That is clear now and he is ambulatory without desaturation below 90%, and without significant dyspnea. His pulse ox shows no hypercapnia and a normal, neutral pH. His x-ray shows no pneumonia. His influenza was negative. Perhaps a viral infection given that his work-up really is unremarkable. At this time I am comfortable with him going home since he is not hypoxic even with exertion and he does have home oxygen if he needs it. He was given Levaquin here empirically after cultures were obtained. I will send him home on Levaquin and prednisone and family is comfortable with this plan all questions answered at bedside. ED Disposition - Plan for ED Patient: Disposition: Home or Assisted Living Diagnosis: SIRS (systemic inflammatory response syndrome), COPD with exacerbation Instructions: Copd Flare Prescriptions: Prednisone [Deltasone] 40 mg PO DAILY #10 tab Transmission Status: Pending to [id number] levoFLOXacin tablet [Levaquin tablet] 500 mg PO DAILY 6 Days #6 tab Transmission Status: Pending to [id number] Referrals: Priscilla Nixon MD [Primary Care Provider] - 3-5 Days
[2019-06-04] MEDS: levoFLOXacin IV 750 MG/150 ML BAG 100 MG IV (09:26)
[2019-06-04] MEDS: MethylPREDNISolone 125 MG/2 ML Vial IV (09:26)
[2019-06-04] MEDS: Acetaminophen 500 MG Tablet 1000 MG PO (09:26)
[2019-06-04 09:28] LABS: Bacteria 0 SEEN /hpf (None Seen); Mucous, Urine 0 SEEN /hpf (<or=2+); Red Blood Cells-Urine 0 SEEN /hpf (0-5); Squamous Epithelial Cells - UA 0 SEEN /hpf (0-5)
[2019-06-04 09:32] LABS: Color, Urine Yellow (Yellow); Glucose, Dipstick Normal (Normal); Ketone-Dipstick 5 mg/dl (Negative); Leukocyte Esterase-Dipstick 25 /ul (Negative); Nitrite-Dipstick Negative (Negative); Occult Blood-Urine Negative /ul (Negative); Protein-Dipstick 30 mg/dl (Negative); Specific Gravity, Urine 1.015 (1.002-1.030); Urine Bilirubin Dipstick Negative (Negative); Urine Clarity Clear (Clear); Urine Urobilinogen Normal (Normal); Urine pH 6.5 (5.0 - 8.0)
[2019-06-04 09:42] LABS: Absolute Lymphocyte Count 0.69 X10^3/uL (0.83-4.51); Absolute Neutrophil Count 7.8 X10^3/uL (2.0-7.7); Basophil# 0.01 X10^3/uL; Basophil% 0.1 % (0-1); Hematocrit 42.2 % (40-54); Hemoglobin 13.4 g/dL (13.0-16.5); Lymphocyte # 0.69 X10^3/ul (4.0); Lymphocyte % 7.4 % (19-41); Mean Corp Hgb Conc 31.8 g/dL (32-36); Mean Corpuscular Volume 88.1 fL (80-94); Mean Platelet Vol. 9.5 fl (6.2-12.0); Monocyte# 0.79 X10^3/uL; Monocyte% 8.4 % (0-10); NRBC Flagged by Analyzer 0 % (0-5); Neutrophil # 7.82 X10^3/uL (2.7-7.7); Neutrophil % 83.6 % (47-70); Platelet Count 201 K/mm3 (150-450); RBC Distribution Width CV 15.3 % (11.6-14.6); Red Blood Count 4.79 M/mm3 (4.6-6.2); White Blood Count 9.4 K/mm3 (4.4-11.0)
[2019-06-04 09:45] LABS: White Blood Cells 0-5 SEEN /hpf (0-5)
[2019-06-04 09:53] LABS: ALB/GLOB Ratio 0.9 RATIO (0.9-2.4); AST(SGOT) 17 U/L (15-37); Alanine Aminotransfer ALT/SGPT 15 U/L (16-61); Albumin, Serum 3.3 g/dL (3.2-5.0); Alkaline Phosphatase 79 U/L (45-117); Anion Gap 4 (5-15); BUN 17 mg/dL (7-18); BUN/Creat Ratio 16.2 RATIO (10-20); Chloride 99 mmol/L (98-107); Creatinine, Serum 1.05 mg/dL (0.70-1.30); EST Glomerular Filtration Rate 78 mL/min (>60); Est Glom Filt Rate - Afr Amer 94 mL/min (>60); Globulin 3.8 g/dL (2.2-4.2); Glucose 97 mg/dL (74-106); Potassium 4.5 mmol/L (3.5-5.1); Protein, Total 7.1 g/dL (6.4-8.2); Sodium Level 134 mmol/L (136-145)
[2019-06-04 09:58] LABS: Prothrombin Time (Protime)PT. 13.1 SECONDS (11.7-14.9)
[2019-06-04 09:59] LABS: Partial Thromboplast Time 35.7 Seconds (24.1-36.2)
[2019-06-04 10:03] LABS: Lactic Acid 1.3 mmol/L (0.4-1.9)
[2019-06-04] MEDS: Ipratropium/Albuterol Sulfate 3 ML AMPUL.NEB INHALATION (10:15)
[2019-06-04] MEDS: Albuterol 2.5 MG/3 ML VIAL.NEB. INHALATION ×2 (10:15)
--- NOTE | 2019-06-04 10:35 | ED.RN ---
PT'S IV CAME OUT AFTER RETURNING FROM CT. PT CLEANED UP AND BED CHANGED. ANOTHER IV ESTABLISHED IN LEFT AC.
[2019-06-04 10:46] LABS: Allen Test POS; Base Excess 1 mmol/L (-2 to +2); Bicarbonate 25.5 mmol/L (22-26); Blood Gas Specimen Type ART; O2 Delivery Device Room Air; PO2 63 mmHG (75-100); SITE L Radial; SO2 92 % (95-99); Time Given 1030; Total Carbon Dioxide 27 mmol/L; pCO2 41.5 mmHg (35-45)
--- NOTE | 2019-06-04 11:35 | ED.RN ---
feels pt is stable and aticipating dc
== END 2019-06-04 13:09 | disposition home or self-care (01) ==
PROVIDERS: Emergency Provider Emergency Medicine; Family Provider Internal Medicine; PCP Internal Medicine
DX: J44.1 Chronic obstructive pulmonary disease with (acute) exacerbation (principal); R65.10 Systemic inflammatory response syndrome (SIRS) of non-infectious origin without acute organ dysfunction; F31.9 Bipolar disorder, unspecified; G47.33 Obstructive sleep apnea (adult) (pediatric); G40.909 Epilepsy, unspecified, not intractable, without status epilepticus; F17.210 Nicotine dependence, cigarettes, uncomplicated; Z87.820 Personal history of traumatic brain injury; Z79.899 Other long term (current) drug therapy
CPT/HCPCS: 36600; 70450; 71045; 80053; 81001; 82803; 83605; 84484; 85025; 85610; 85730; 87040; 87086; 87088; 87804; 93005; 94640; 96365; 96366; 96375; 99251; 99285; J7030; A4216; G0463

== ENCOUNTER 2019-06-29 13:53 | Emergency (ER) | payer MEDICARE, MEDICAID, SELFPAY ==
[2019-06-04 08:45] VITALS: BMI 23.0
[2019-06-29 13:54] VITALS: BP 132/87; PULSE 90; RESP 16; TEMP 37; O2SAT 94
[2019-06-29 14:00] VITALS: BP 132/87; PULSE 90; RESP 16; TEMP 37; O2SAT 94; BMI 25.4
[2019-06-29 15:58] LABS: Absolute Neutrophil Count 2.2 X10^3/uL (2.0-7.7); Basophil# 0.03 X10^3/uL; Basophil% 0.6 % (0-1); Eosinophil# 0.13 X10^3/uL; Eosinophils% 2.7 % (0-5); Hematocrit 40.1 % (40-54); Hemoglobin 12.8 g/dL (13.0-16.5); Lymphocyte % 43.8 % (19-41); Mean Corp Hgb Conc 31.9 g/dL (32-36); Mean Corpuscular Hgb 28.3 pg (27.0-32.0); Mean Corpuscular Volume 88.5 fL (80-94); Mean Platelet Vol. 8.8 fl (6.2-12.0); Monocyte# 0.35 X10^3/uL; Monocyte% 7.3 % (0-10); NRBC Flagged by Analyzer 0 % (0-5); Neutrophil # 2.16 X10^3/uL (2.7-7.7); Neutrophil % 45.2 % (47-70); Platelet Count 237 K/mm3 (150-450); RBC Distribution Width CV 14.7 % (11.6-14.6); RBC Distribution Width SD 48.3 fl (35.1-43.9); Red Blood Count 4.53 M/mm3 (4.6-6.2); White Blood Count 4.8 K/mm3 (4.4-11.0)
[2019-06-29 16:08] VITALS: BP 128/87; PULSE 80; RESP 18; O2SAT 97
[2019-06-29] MEDS: 0.9% Normal Saline 1,000 ML 150 ML IV (16:09)
[2019-06-29 16:17] LABS: AST(SGOT) 16 U/L (15-37); Alanine Aminotransfer ALT/SGPT 18 U/L (16-61); Albumin, Serum 3.3 g/dL (3.2-5.0); Alkaline Phosphatase 81 U/L (45-117); Anion Gap 3 (5-15); BUN 13 mg/dL (7-18); BUN/Creat Ratio 14.5 RATIO (10-20); Calcium,Total 8.7 mg/dL (8.5-10.1); Chloride 102 mmol/L (98-107); EST Glomerular Filtration Rate 93 mL/min (>60); Est Glom Filt Rate - Afr Amer 113 mL/min (>60); Estimated Creatinine Clearance 88.67 ml/min; Globulin 3.3 g/dL (2.2-4.2); Glucose 86 mg/dL (74-106); Potassium 4.5 mmol/L (3.5-5.1); Protein, Total 6.6 g/dL (6.4-8.2); Sodium Level 136 mmol/L (136-145); Total Bilirubin < 0.10 mg/dL (0.20-1.00)
[2019-06-29 16:21] LABS: Valproic Acid (Depakene) Level 71 ug/mL (50-100)
--- NOTE | 2019-06-29 16:28 | ED.DCSUM_ITS ---
- ER Visit Summary Date of Service: 06/29/19 Chief Complaint: [Seizure] History of Present Illness: The patient is a 58 M [presents to the emergency department with seizures that started this morning. Patient had 2 staring type spells that lasted a couple of minutes each and then patient returned to his [facility]. Patient later this afternoon had a another seizure that was more of a tonic-clonic type seizure where his eyes were twitching and his left arm was twitching and he was not responsive for about 2 to 3 minutes. Patient afterwards confused. He did not bite his tongue or lose control of bowel or bladder. Patient does have seizure history and is currently on Depakote 1500 mg in the morning and has been taking his medications regularly. He denies any fevers. He denies recent illness. Patient denies falls or head injuries.] Physical Examination: [HEENT-PERRLA EOMI, TMs clear no hemotympanum, no C-spine tenderness on palpation, no external evidence of trauma to his head. No bite wounds noted to the mouth or tongue. Cardiovascular-heart is regular rate and rhythm without murmur. Lungs-clear to auscultation bilaterally. No chest wall tenderness. No crepitus or subcu emphysema. Abdomen-soft and nontender. No rebound, rigidity, or perineal signs. Neuro [id number] and [id number]-[id number] testing within normal limits, negative Romberg, negative , Fundi benign Extremities-intact x4 with normal pulses and normal strength.] Test Results: [CBC with differential was normal. Chemistries unremarkable. LFTs were normal. Depakote level was 71.] Emergency Department Course and Treatment: [Had to the contact patient's neurologist and I was told that he was no longer on-call and 1 of his partners was covering. We attempted multiple times to contact the neurologist unsuccessfully. I did give patient 1 dose of Keppra 500 mg IV in the department. They are comfortable going home and calling his neurologist tomorrow for further directions on current medication or changing medical treat ment. Has had multiple seizures like this before in 1 days never been admitted for seizures.] Treatment Plan: [Follow-up with neurology tomorrow] Disposition: Discharged home in stable condition] Impression: [Seizure-recurrent] This note was generated with [employer] software. It may contain incorrect words, spelling, and punctuation that were not noted in review of the chart prior to signing ED Disposition - Plan for ED Patient: Referrals: Priscilla Nixon MD [Primary Care Provider] -
--- NOTE | 2019-06-29 16:35 | ED.DEP ---
ED Disposition - Plan for ED Patient: Instructions: SEIZURE, Recurrent [Adult] Additional Instructions: Call your neurologist tomorrow for instructions on your medications
[2019-06-29 17:01] LABS: Bacteria 0 SEEN /hpf (None Seen); Mucous, Urine 0 SEEN /hpf (<or=2+); Red Blood Cells-Urine 0 SEEN /hpf (0-5); Squamous Epithelial Cells - UA 0 SEEN /hpf (0-5); White Blood Cells 0 SEEN /hpf (0-5)
[2019-06-29 17:04] LABS: Color, Urine Yellow (Yellow); Glucose, Dipstick Normal (Normal); Ketone-Dipstick Negative (Negative); Leukocyte Esterase-Dipstick Negative /ul (Negative); Nitrite-Dipstick Negative (Negative); Occult Blood-Urine Negative /ul (Negative); Protein-Dipstick Negative (Negative); Specific Gravity, Urine 1.005 (1.002-1.030); Urine Bilirubin Dipstick Negative (Negative); Urine Clarity Clear (Clear); Urine Urobilinogen Normal (Normal)
[2019-06-29 17:34] VITALS: BP 118/95; PULSE 81; RESP 16; O2SAT 98
== END 2019-06-29 17:38 | disposition home or self-care (01) ==
LOC: ED 14:20
PROVIDERS: Emergency Provider Emergency Medicine; Family Provider Internal Medicine; PCP Internal Medicine
DX: R56.9 Unspecified convulsions (principal); J44.9 Chronic obstructive pulmonary disease, unspecified; K21.9 Gastro-esophageal reflux disease without esophagitis; F31.9 Bipolar disorder, unspecified; Z72.0 Tobacco use; Z79.899 Other long term (current) drug therapy; Z87.820 Personal history of traumatic brain injury
CPT/HCPCS: 80053; 80164; 81001; 85025; 99285; J7030; A4216

== ENCOUNTER 2019-06-30 12:31 | Inpatient (IN) | payer MEDICARE, MEDICAID, SELFPAY ==
[2019-06-29 14:00] VITALS: BMI 25.4
[2019-06-30] VITALS (21 sets, daily range): BP systolic 96–120; BP diastolic 64–84; PULSE 95–127; RESP 15–26; TEMP 37.3–38.8; O2SAT 94–100; BMI 24.9; BMI 25.1
--- NOTE | 2019-06-30 13:14 | RAD_ITS ---
STUDY: X-RAY CHEST REASON FOR EXAM: Male, 58 years old. SEIZURE TECHNIQUE: Single AP portable view of the chest. COMPARISON: Comparison is made with prior examination dated June 04, 2019. FINDINGS: EKG electrodes are seen. There now is evidence of patchy infiltrates in the right upper and right lower lobes as well as increased markings in the left lower lobe. Follow-up is recommended. There is no demonstrated pleural abnormality. Normal size heart. Normal mediastinum and noreen. Normal visualized pulmonary arteries. There is atherosclerotic tortuosity of the aortic arch and descending thoracic aorta. Normal visualized thoracic spine. Normal visualized ribs, clavicles, and shoulders. There is no demonstrated abnormality of the visualized soft tissue structures of the upper abdomen. RAD/Chest 1 View (Portable) IMPRESSION: Patchy infiltrates in the right upper and right lower lobes as well as increased markings at the left lung base. Radiographic follow-up is recommended. Electronically Signed: Bijan Oliveira, at 13:39 EST , Service support ,
[2019-06-30] MEDS: 0.9% Normal Saline 1,000 ML 1000 ML IV (13:20)
[2019-06-30] MEDS: LORazepam 2 MG/ML Syringe 1 MG IV (13:20)
--- NOTE | 2019-06-30 13:20 | ED.VISSUMM ---
- ER Visit Summary Date of Service: 06/30/19 Chief Complaint: Fever History of Present Illness: The patient is a 58 M history of a seizure disorder, reflux and COPD. Also underlying psychiatric history. Patient seen in the emergency department last night for recurrent seizure. Was started on a new an additional seizure medication today. Family has not been acting his baseline. He has had a fever but no vomiting or diarrhea. No significant cough. Is not complaining of any pain. Physical Examination: Middle-aged male. Initially no acute distress. Temperature one 1.8. Initial blood pressure 112/68. Pulse ox 90% room air no signs hypoxia. H EENT exam pupils are reactive light his motions are intact. Moist with membranes. No trauma to his face or head. Neck nontender. No lymphadenopathy. No meningismus. Lungs clear to auscultation bilaterally. Heart tachycardic no murmur. Abdomen is soft nontender. Normal bowel sounds. No peritoneal signs. Nondistended. No obstruction. Extremities moves all 4. No deformities. No edema. No rashes. Skin unremarkable. Back nontender. Neurologically initially when I walked in the room his eyes were open he was awake he was given some of his own history. Near the end of my exam he did have a tonic-clonic seizure lasted about 30 seconds resolved on its own. Now he is post ictal. Family states he has seizures and they have seen seizures like this before. He was in bed the whole time he did not fall or have a head injury while in the department. Test Results: CBC shows a white count 11.3. Hemoglobin 14. 90% segs no bands. Chemistries gap of 8. Glucose 171. BUN was 17 creatinine 1.64. UA is pending at the cath specimen. Lactate is elevated 7.2 I was informed by the nursing staff this was drawn prior to his seizure. With his lactate being that high this is consistent with septic shock. Chest x-ray shows both a right upper and right lower lobe pneumonia. Emergency Department Course and Treatment: Acute on chronic seizures. Also a fever today. Patient be admitted to the hospital. He will undergo labs plus blood cultures. Urinalysis. Lactic acid. Treated with a liter normal saline. Due to his seizure being postictal will be given rectal Tylenol. And he was given a milligram of Ativan IV for the seizure. Repeat exams. The patient is resting comfortably. He is hemodynamically stable at this time. He will be treated with 2 and half liters of fluid for 30 mg/kg due to severe sepsis. Due to the pneumonia will be started on both Rocephin and Zithromax for community-acquired right upper and lower lobe pneumonia and sepsis. Cultures are pending. A repeat lactate will be obtained. On repeat exam he does have good capillary refill. His pressure remains above 100 systolically. Treatment Plan: I spoke to the hospitalist Dr. Duncan. A year. Also has bootmaker on page. Disposition: Admission Impression: Acute fever Acute septic shock Acute right upper and lower lobe community-acquired pneumonia Acute lactic acidosis Acute on chronic seizure Mental status change Neuro care time 35 minutes This note was generated with [employer] dictation software. It may contain incorrect words, spelling, and punctuation that were not noted in review of the chart prior to signing ED Disposition - Plan for ED Patient: Referrals: Priscilla Nixon MD [Primary Care Provider] -
[2019-06-30 13:27] LABS: Absolute Lymphocyte Count 0.33 X10^3/uL (0.83-4.51); Absolute Neutrophil Count 10.2 X10^3/uL (2.0-7.7); Basophil# 0.02 X10^3/uL; Basophil% 0.2 % (0-1); Eosinophil# 0.14 X10^3/uL; Eosinophils% 1.2 % (0-5); Hematocrit 44.8 % (40-54); Lymphocyte # 0.33 X10^3/ul (4.0); Lymphocyte % 2.9 % (19-41); Mean Corp Hgb Conc 31.3 g/dL (32-36); Mean Corpuscular Hgb 28.3 pg (27.0-32.0); Mean Corpuscular Volume 90.7 fL (80-94); Mean Platelet Vol. 9.5 fl (6.2-12.0); Monocyte# 0.54 X10^3/uL; Monocyte% 4.8 % (0-10); NRBC Flagged by Analyzer 0 % (0-5); Neutrophil # 10.21 X10^3/uL (2.7-7.7); Neutrophil % 90.6 % (47-70); POSITIVE DIFFERENTIAL YES; Platelet Count 237 K/mm3 (150-450); RBC Distribution Width CV 15.3 % (11.6-14.6); RBC Distribution Width SD 50.5 fl (35.1-43.9); Red Blood Count 4.94 M/mm3 (4.6-6.2); White Blood Count 11.3 K/mm3 (4.4-11.0)
[2019-06-30 13:30] LABS: Differential Indicated SCAN CRITERIA MET
[2019-06-30] MEDS: Acetaminophen 650 MG Suppository RECTAL (13:30)
[2019-06-30 13:37] LABS: Anion Gap 8 (5-15); BUN 17 mg/dL (7-18); BUN/Creat Ratio 10.4 RATIO (10-20); Calcium,Total 9.4 mg/dL (8.5-10.1); Chloride 104 mmol/L (98-107); Creatinine, Serum 1.64 mg/dL (0.70-1.30); EST Glomerular Filtration Rate 46 mL/min (>60); Est Glom Filt Rate - Afr Amer 56 mL/min (>60); Estimated Creatinine Clearance 47.02 ml/min; Glucose 171 mg/dL (74-106); Potassium 3.7 mmol/L (3.5-5.1); Sodium Level 136 mmol/L (136-145)
[2019-06-30 13:45] LABS: Lactic Acid 7.2 mmol/L (0.4-1.9)
[2019-06-30 13:49] LABS: Differential Comment SCANNED
[2019-06-30 14:11] LABS: Bacteria 0 SEEN /hpf (None Seen); Mucous, Urine 0 SEEN /hpf (<or=2+)
[2019-06-30 14:14] LABS: Color, Urine Yellow (Yellow); Glucose, Dipstick Normal (Normal); Ketone-Dipstick Negative (Negative); Leukocyte Esterase-Dipstick Negative /ul (Negative); Nitrite-Dipstick Negative (Negative); Occult Blood-Urine Negative /ul (Negative); Protein-Dipstick 15 mg/dl (Negative); Urine Bilirubin Dipstick Negative (Negative); Urine Clarity Clear (Clear); Urine Urobilinogen Normal (Normal)
[2019-06-30 14:15] LABS: Bedside Glucose 73 mg/dL (70-110)
--- NOTE | 2019-06-30 14:15 | EKG12_ITS ---
Test Reason : SEPTIC SHOCK Blood Pressure : / mmHG Vent. Rate : 115 BPM Atrial Rate : 115 BPM P-R Int : 164 ms QRS Dur : 108 ms QT Int : 328 ms P-R-T Axes : 054 063 052 degrees QTc Int : 453 ms Sinus tachycardia Otherwise normal ECG Confirmed by ERIN ARBOLEDA, ESME ([id number]), development editor NINA RUIZ ([id number]) on 07/02/2019 10:03:57 AM Referred By: Hyun Duncan Confirmed By:DOUGLAS KHAN MD
[2019-06-30 14:20] LABS: White Blood Cells 0-5 SEEN /hpf (0-5)
[2019-06-30 14:21] LABS: Red Blood Cells-Urine 0-5 SEEN /hpf (0-5); Squamous Epithelial Cells - UA 0-5 SEEN /hpf (0-5)
--- NOTE | 2019-06-30 14:24 | HP.PCM_ITS ---
History of Present Illness Date of Admission: 06/30/19 Chief Complaint: Altered mental status, fever The patient is a 58 year old M with an extensive past medical history which includes seizure disorder, COPD, depression and LACEY as well as traumatic brain injury. He was admitted through the ED on 06/30/2019 with a complaint of altered mental status and fever. History was mainly taken from his and son as patient was very lethargic and not communicating well. According to his , patient had a seizure yesterday and so they brought him into the ED where he was started on new seizure medication and discharged home. She states when they got home, patient vomited once during the night and was also quite weak and lethargic and confused. This morning, patient was confused and he was warm to touch though they did not check for fever. Therefore decided to bring him to the ED because of how his mentation had changed. She had also noted that he was short of breath and also coughing which was productive of brownish sputum. He also complained of pain along his right flank. Review of signs is otherwise negative. On admission in the ED, patient had a seizure. Vitals were significant for temperature of 101.8 Fahrenheit with pulse rate of 125 and respiratory rate of 24. Blood pressure was 112/68. He was saturating 99% on 5 L of oxygen at the time of review. Chemistry showed creatinine of 1.64 with lactic acid of 7.2. Must be noted that sample for lactic acid was drawn before patient had seizure in the ED and family states that he did not witness him having any seizure earlier this morning. CBC showed WBC of 11.3 and hemoglobin of 14 with platelets of 237. Chest x-ray showed patchy infiltrates in the right upper and lower lobes as well as increased markings at the left lung base. EKG showed sinus tachycardia. He is been admitted to be managed for septic shock due to community-acquired pneumonia and probable aspiration pneumonia as well as acute hypoxic respiratory failure [] Past Medical History Past Medical History (Chronic Problems): Chronic Problems (Last Reviewed 09/28/18 @ 13:48 by Mildred Theodore) Nicotine dependence, cigarettes, uncomplicated (Chronic) Acute hypoxemic respiratory failure (Chronic) Seizure disorder (Chronic) Diastolic dysfunction (Chronic) Depression (Chronic) LACEY (obstructive sleep apnea) (Chronic) CPAP 11 cm of water Lung nodule (Chronic) Sleep-related breathing disorder (Chronic) Bipolar disorder (Chronic) GERD (gastroesophageal reflux disease) (Chronic) COPD (chronic obstructive pulmonary disease) (Chronic) Encephalopathy (Chronic) Traumatic brain injury (Chronic) Spinal stenosis (Chronic) Tobacco abuse (Chronic) Migraine (Chronic) Medical History: Medical History (Last Reviewed 09/28/18 @ 13:48 by Mildred Theodore) Left ankle injury (Resolved) S99.912A Bilateral tennis elbow (Resolved) M77.11, M77.12 Depression (Chronic) F32.9 LACEY (obstructive sleep apnea) (Chronic) G47.33 CPAP 11 cm of water Lung nodule (Chronic) R91.1 Sleep-related breathing disorder (Chronic) G47.30 Bipolar disorder (Chronic) F31.9 GERD (gastroesophageal reflux disease) (Chronic) K21.9 COPD (chronic obstructive pulmonary disease) (Chronic) J44.9 Encephalopathy (Chronic) G93.40 Traumatic brain injury (Chronic) S06.9X9A Spinal stenosis (Chronic) M48.00 Tobacco abuse (Chronic) Z72.0 Migraine (Chronic) G43.909 Acute respiratory failure (Resolved) J96.00 Hoarseness (Resolved) R49.0 Pneumonia (Resolved) J18.9 Sepsis (Resolved) A41.9 Allergies dextromethorphan HBr [From NyQuil] Adverse Reaction (Intermediate, Verified 06/30/19 12:32) tachycardia, feels anxious doxylamine [From NyQuil] Adverse Reaction (Intermediate, Verified 06/30/19 12:32) Tachycardia, feels anxious pseudoephedrine HCl [From NyQuil] Adverse Reaction (Intermediate, Verified 06/30/19 12:32) Tachycardia, feels anxious sertraline HCl [From Zoloft] Adverse Reaction (Verified 06/30/19 12:32) Diarrhea Home Medications: Ambulatory Orders Medication Instructions Recorded Quetiapine Fumarate [Seroquel] 25 mg PO TID PRN PRN 12/05/16 Propranolol HCl [Inderal (Beta 10 mg PO BID 07/11/17 Danielle)] Divalproex Sodium [Depakote ER] 1,500 mg PO DAILY 04/03/18 albuterol sulfate 90 mcg/actuation 2 puff INHALATION Q4H PRN PRN #1 02/04/19 aerosol inhaler inhaler Amitriptyline HCl 100 mg PO QHS 06/30/19 Fluticasone/Vilanterol [Breo 1 inh INHALATION DAILY 06/30/19 Ellipta 200-25 Mcg INH] Gabapentin 600 mg PO TID 06/30/19 Multivit-Min/FA/Lycopen/Lutein 1 tab PO DAILY 06/30/19 [Centrum Silver Men Tablet] Mupirocin 1 applicatio TP TID 06/30/19 Omeprazole 40 mg PO DAILY 06/30/19 Sertraline HCl 150 mg PO QHS 06/30/19 Umeclidinium [place] [Incruse 1 puff INHALATION DAILY 06/30/19 Ellipta] Surgical History: Surgical History (Last Reviewed 09/28/18 @ 13:48 by Mildred Theodore) History of hernia repair (Resolved) Z98.890, Z87.19 Surgical History: herniorrhaphy, - - Tennis elbow, Left ankle, TBI with encephalamalacia, Inguinal hernia. Psychiatric History: Bipolar Smoking Status: Current every day smoker - *Family History Maternal Family History: Family History (Last Reviewed 09/28/18 @ 13:48 by Mildred Theodore) Father Dementia Alzheimers disease Diabetes Mother Diabetes History Items: Diabetes Paternal Family History: Family History (Last Reviewed 09/28/18 @ 13:48 by Mildred Theodore) Father Dementia Alzheimers disease Diabetes Mother Diabetes History Items: Cancer, Heart Disease Review of Systems Constitutional: Reports: Malaise, Weakness, Fatigue. Denies: Anorexia, Chills, Fever HEENT: Denies: Head Aches, Sinus Congestion, Sinus Drainage Cardiovascular: Denies: Chest Pain, Light Headedness, Orthopnea, Palpitations Respiratory: Reports: Cough, Shortness of Breath, Shortness of breath at rest, Sputum production. Denies: Shortness of breath upon exertion Gastrointestinal: Reports: Vomiting. Denies: Abdominal Pain, Nausea Genitourinary: Denies: Dysuria Musculoskeletal: Denies: Joint Pain, Joint Tenderness Skin: Denies: Rash, Wounds Neurological: Reports: Confusion, Seizures. Denies: Focal weakness, Numbness, Tingling Psychiatric: Denies: Anxiety, Depression, Homicidal Ideations, Suicidal Ideations Hematologic/ Lymphatic: Denies: Easy Bruising, Easy Bleeding VTE Information - Inpt Only VTE Present on Admission: No VTE Pharm Prophylaxis ordered?: Yes - Physical Exam Vitals/I&O's: Vital Signs Temp Pulse Resp BP Pulse Ox 101.8 F H 127 H 24 H 112/68 99 06/30/19 12:34 06/30/19 12:34 06/30/19 12:34 06/30/19 12:34 06/30/19 14:21 Oxygen Flow Rate (L/min) 2 Oxygen Delivery Method Nasal Cannula Weight: 158 lb 15.253 oz Body Mass Index (BMI) 24.9 Finger Stick Blood Glucose 73 General: - - patient confused, lethargic, arousable with sternal pressure HEENT: Atraumatic, PERRLA, EOMI, Normocephalic Oral: Dry Mucosa Neck: Supple, No JVD, Negative Carotid Bruits Lungs: - - coarse crackles in all lung henry anteriorly and posteriorly, on 5L of oxygen by nasal canula, tachypneic Cardiovascular: Normal S1, Normal S2, No murmurs, Tachycardic Abdomen: Bowel Sounds Present, Soft, Non Tender, Non-Distended, No Hepato- splenomegaly Extremities: No clubbing, No cyanosis, No edema, Capillary Refill Less than 3 Seconds Skin: No rashes, No breakdown Musculoskeletal: No Tenderness to Palpation of Joints or Extremities Lymphatic: No Cervical, Supraclavicular, or Inguinal Adenopathy Neurological: Cranial nerves II-XII grossly intact, Motor Exam 5/5 strength throughout Psych/Mental Status: - - patient very confused, lethargic, arousable with sternal pressure, but mumbles incoherently Microbiology Past 72 Hours 06/30/19 13:32 Mucosa - Nasopharyngeal Influenza Types A,B Direct FA (PARAG) - Final Laboratory Results 06/30/19 12:35: WBC 11.3 H, RBC 4.94, Hgb 14.0, Hct 44.8, MCV 90.7, MCH 28.3, MCHC 31.3 L, RDW Std Deviation 50.5 H, RDW Coeff of Aaron 15.3 H, Plt Count 237, MPV 9.5, Immature Gran % (Auto) 0.300, Neut % (Auto) 90.6 H, Lymph % (Auto) 2.9 L, [place] % (Auto) 4.8, Eos % (Auto) 1.2, Baso % (Auto) 0.2, Absolute Neuts (auto) 10.2 H, Absolute Lymphs (auto) 0.33 L, Nucleated RBC % 0, Differential Comment SCANNED 06/30/19 12:35: Sodium 136, Potassium 3.7, Chloride 104, Carbon Dioxide 24.0, Anion Gap 8, BUN 17, Creatinine 1.64 H, Estim Creat Clear Calc 47.02, Est GFR (MDRD) Af Amer 56 L, Est GFR (MDRD) Non-Af 46 L, BUN/Creatinine Ratio 10.4, Glucose 171 H, Calcium 9.4 06/30/19 12:35: Lactic Acid 7.2 H* 06/30/19 12:35: PT Pending, INR Pending, APTT Pending 06/30/19 14:00: Urine Color Yellow, Urine Clarity Clear, Urine pH 7.0, Ur Specific [place] 1.010, Urine Protein 15 H, Urine Glucose (UA) Normal, Urine Ketones Negative, Urine Occult Blood Negative, Urine Nitrite Negative, Urine Bilirubin Negative, Urine Urobilinogen Normal, Ur Leukocyte Esterase Negative, Urine RBC 0-5 SEEN, Urine WBC 0-5 SEEN, Ur Squamous Epith Cells 0-5 SEEN, Urine Bacteria 0 SEEN, Urine Mucus 0 SEEN 06/30/19 14:12: POC Glucose 73 Diagnostic Data Chest X-Ray 06/30/19 13:14 IMPRESSION: Patchy infiltrates in the right upper and right lower lobes as well as increased markings at the left lung base. Radiographic follow-up is recommended. Electronically Signed: Bijan Oliveira, at 13:39 EST , Service support , Current Medications Sodium Chloride () 1,250 mls @ 999 mls/hr IV .Q1H16M ONE Stop: 06/30/19 15:13 Last Admin: 06/30/19 14:20 Dose: 999 mls/hr Documented by: Sodium Chloride () 1,000 mls @ 999 mls/hr IV .Q1H1M ONE Stop: 06/30/19 15:15 Ceftriaxone Sodium 2 gm/ (Sodium Chloride) 50 mls @ 100 mls/hr IV X1 ONE Stop: 06/30/19 14:47 Azithromycin 500 mg/ Dextrose 255 mls @ 250 mls/hr IV X1 ONE Stop: 06/30/19 15:19 Assessment/Plan All Active Problems (Last Reviewed 09/28/18 @ 13:48 by Mildred Theodore) Shortness of breath (Acute) Hyperammonemia (Acute) Seizure (Acute) Left ankle injury (Resolved) History of hernia repair (Resolved) Bilateral tennis elbow (Resolved) Acute respiratory failure (Resolved) Hoarseness (Resolved) Pneumonia (Resolved) Sepsis (Resolved) 58-year-old male admitted with a complaint of altered mental status. 1. Septic shock due to aspiration pneumonia * SIRS criteria is 3/4- tachypnea, tachycardia, fever * Chest x-ray showed evidence of patchy infiltrates in the right upper and lower lung lobes as well as increased markings of the left lung base. However I suspect he likely aspirated when he vomited was he was sleeping last night as he has coarse crackles in all lung henry anteriorly and posteriorly * Admit to ICU. Critical care consulted. * Stat ABG as patient is currently requiring 5 L of oxygen. Lactic acid is 7.2 and the sample was drawn before he had a seizure in the ED. * Start IV vancomycin and Zosyn. * Get blood cultures and sputum cultures. * Urine for strep and Legionella. Respiratory panel. * Hydrate with IV fluid as per sepsis protocol and repeat lactic acid as per sepsis protocol. 2. Acute hypoxic respiratory failure due to aspiration pneumonia * Is under 1. ABGs pending. * Patient's and son counseled that he may need to be intubated as is the likely patient will be able to tolerate BiPAP if he gets more short of breath on account of his acute metabolic encephalopathy. * Give breathing treatments. 3. Acute metabolic encephalopathy due to aspiration pneumonia and seizure disorder * Under 1. * 4. Seizure disorder. * Patient had a seizure yesterday and also today on admission in the ED. He does have a history of seizures and his states that usually just stares when he is having a seizure and does not have grand mal seizures. * Give IV Keppra. He is on Depakote at home which she has been compliant with according to family, but he still having seizures. Will start on Keppra. * consult neurology * 5. Lactic acidosis: * Lactic acid was 7.2 on admission. * This was before patient had a seizure and is not clear whether he had had a seizure prior to coming into the ED. * Will hydrate with IV fluids and monitor per Sepsis protocol. 6. DARWIN: * Creatinine is 1.64 with a baseline of less than 1. * Should improve with IV fluid hydration. * If it does not, will consider further work-up such as renal ultrasound and urine electrolytes. * 7. History of COPD: On Incruse Ellipta and Breo Ellipta at home. DVT Prophylaxis: Lovenox Code status: full code * Patient's and son counseled extensively about different types of CODE STATUS including full code, DNR CCA and DNR CCA. Patient's family elects for him to be full code. Counseled on considering patients requiring 5 L of oxygen now, if shortness of breath worsens, he may not be able to protect his airway on BiPAP and so may need to be intubated in the okay with this. * Total [id number] time 17 minutes. Code Visit Inpatient E&M: 32835 Init Hosp L3 Procedures: 74078 Advncd Care Plan 30 Min
[2019-06-30 14:29] LABS: Prothrombin Time (Protime)PT. 13.3 SECONDS (11.7-14.9)
[2019-06-30 14:30] LABS: Partial Thromboplast Time 27.8 Seconds (24.1-36.2)
--- NOTE | 2019-06-30 14:33 | NURSING ---
ICU KORAM SEPSIS, SEIZURES
--- NOTE | 2019-06-30 14:41 | NURSING ---
ICU 6
--- NOTE | 2019-06-30 14:47 | ED.RN ---
CALLED PHARMACY FOR ANTIBIOTICS, RELAYED CURRENT PT STATUS TO LIBRARIAN SPECIALIST.
--- NOTE | 2019-06-30 14:53 | NURSING ---
DR KAPOOR IN ROOM
--- NOTE | 2019-06-30 14:56 | PCM.CON.CC ---
Reason for Consult Date of Consultation: 06/30/19 Reason for Consultation: Severe sepsis/encephalopathy/acute respiratory insufficiency History of Present Illness: The patient is a 58-year-old male, with a history as outlined below, who presented to the emergency department on June 30 with fever, altered mentation and witnessed seizure activity. I follow the patient chronically in the pulmonary medicine clinic due to a history of advanced age COPD and continuous tobacco dependency, along with sleep apnea. The patient does have a history of epilepsy and is currently on Depakote as an outpatient. He was previously being followed by neurology, who is no longer with the hospital. The patient's did report that he has been suffering from a decline in his respiratory status over the last 24 to 48 hours and has also been having witnessed seizure activity. The patient was actually evaluated in the emergency department yesterday due to his issues with seizure activity. At that time, the patient was given 1 dose of Keppra 500 mg and instructed to follow-up with his neurologist. On presentation to the emergency department, the patient was noted to be febrile, tachycardic and tachypneic. Laboratory evaluation revealed an elevated white blood cell count to 11,000. Coagulation profile was within normal limits. Chemistry profile was notable for acute kidney injury with a creatinine of 1.64. Lactate was elevated to 7.2. Plain film chest x-ray revealed infiltrates in the right upper and lower lobes. During the patient's emergency department evaluation, he did have a witnessed tonic-clonic seizure that lasted approximately 30 seconds and resolved on its own. The patient was treated with Ativan. He was also provided with supplemental IV fluid hydration and started on antimicrobial coverage for community-acquired pneumonia. Past Medical History Past Medical History (Chronic Problems): Chronic Problems (Last Reviewed 09/28/18 @ 13:48 by Mildred Theodore) Nicotine dependence, cigarettes, uncomplicated (Chronic) Acute hypoxemic respiratory failure (Chronic) Seizure disorder (Chronic) Diastolic dysfunction (Chronic) Depression (Chronic) LACEY (obstructive sleep apnea) (Chronic) CPAP 11 cm of water Lung nodule (Chronic) Sleep-related breathing disorder (Chronic) Bipolar disorder (Chronic) GERD (gastroesophageal reflux disease) (Chronic) COPD (chronic obstructive pulmonary disease) (Chronic) Encephalopathy (Chronic) Traumatic brain injury (Chronic) Spinal stenosis (Chronic) Tobacco abuse (Chronic) Migraine (Chronic) Medical History: Medical History (Last Reviewed 09/28/18 @ 13:48 by Mildred Theodore) Left ankle injury (Resolved) S99.912A Bilateral tennis elbow (Resolved) M77.11, M77.12 Depression (Chronic) F32.9 LACEY (obstructive sleep apnea) (Chronic) G47.33 CPAP 11 cm of water Lung nodule (Chronic) R91.1 Sleep-related breathing disorder (Chronic) G47.30 Bipolar disorder (Chronic) F31.9 GERD (gastroesophageal reflux disease) (Chronic) K21.9 COPD (chronic obstructive pulmonary disease) (Chronic) J44.9 Encephalopathy (Chronic) G93.40 Traumatic brain injury (Chronic) S06.9X9A Spinal stenosis (Chronic) M48.00 Tobacco abuse (Chronic) Z72.0 Migraine (Chronic) G43.909 Acute respiratory failure (Resolved) J96.00 Hoarseness (Resolved) R49.0 Pneumonia (Resolved) J18.9 Sepsis (Resolved) A41.9 Allergies dextromethorphan HBr [From NyQuil] Adverse Reaction (Intermediate, Verified 06/30/19 12:32) tachycardia, feels anxious doxylamine [From NyQuil] Adverse Reaction (Intermediate, Verified 06/30/19 12:32) Tachycardia, feels anxious pseudoephedrine HCl [From NyQuil] Adverse Reaction (Intermediate, Verified 06/30/19 12:32) Tachycardia, feels anxious sertraline HCl [From Zoloft] Adverse Reaction (Verified 06/30/19 12:32) Diarrhea Home Medications: Ambulatory Orders Medication Instructions Recorded Quetiapine Fumarate [Seroquel] 25 mg PO TID PRN PRN 12/05/16 Propranolol HCl [Inderal (Beta 10 mg PO BID 07/11/17 Danielle)] Divalproex Sodium [Depakote ER] 1,500 mg PO DAILY 04/03/18 albuterol sulfate 90 mcg/actuation 2 puff INHALATION Q4H PRN PRN #1 02/04/19 aerosol inhaler inhaler Amitriptyline HCl 100 mg PO QHS 06/30/19 Fluticasone/Vilanterol [Breo 1 inh INHALATION DAILY 06/30/19 Ellipta 200-25 Mcg INH] Gabapentin 600 mg PO TID 06/30/19 Multivit-Min/FA/Lycopen/Lutein 1 tab PO DAILY 06/30/19 [Centrum Silver Men Tablet] Mupirocin 1 applicatio TP TID 06/30/19 Omeprazole 40 mg PO DAILY 06/30/19 Sertraline HCl 150 mg PO QHS 06/30/19 Umeclidinium [place] [Incruse 1 puff INHALATION DAILY 06/30/19 Ellipta] Surgical History: Surgical History (Last Reviewed 09/28/18 @ 13:48 by Mildred Theodore) History of hernia repair (Resolved) Z98.890, Z87.19 Surgical History: herniorrhaphy, - - Tennis elbow, Left ankle, TBI with encephalamalacia, Inguinal hernia. Psychiatric History: Bipolar Smoking Status: Current every day smoker Tobacco Use: Cigarettes - *Family History Maternal Family History: Family History (Last Reviewed 09/28/18 @ 13:48 by Mildred Theodore) Father Dementia Alzheimers disease Diabetes Mother Diabetes History Items: Diabetes Paternal Family History: Family History (Last Reviewed 09/28/18 @ 13:48 by Mildred Theodore) Father Dementia Alzheimers disease Diabetes Mother Diabetes History Items: Cancer, Heart Disease Review of Systems Constitutional: Reports: Fever, Fatigue Eyes: Denies: Blurred vision, Double vision HEENT: Denies: Head Aches, Sinus Congestion, Sinus Drainage Cardiovascular: Denies: Chest Pain, Palpitations Respiratory: Reports: Cough, Shortness of Breath Gastrointestinal: Denies: Abdominal Pain, Nausea, Vomiting Genitourinary: Denies: Dysuria Musculoskeletal: Denies: Joint Pain, Joint Tenderness Skin: Denies: Rash, Wounds Neurological: Reports: Confusion, Seizures Psychiatric: Denies: Anxiety, Depression, Homicidal Ideations, Suicidal Ideations Hematologic/ Lymphatic: Denies: Easy Bruising, Easy Bleeding Objective: The patient's most recent lab work, culture data and imaging studies have all been personally reviewed. - Physical Exam Vitals/I&O's: Vital Signs Temp Pulse Resp BP Pulse Ox 101.8 F H 127 H 24 H 112/68 99 06/30/19 12:34 06/30/19 12:34 06/30/19 12:34 06/30/19 12:34 06/30/19 14:21 Oxygen Flow Rate (L/min) 2 Oxygen Delivery Method Nasal Cannula Weight: 158 lb 15.253 oz Body Mass Index (BMI) 24.9 Finger Stick Blood Glucose 73 General: No apparent distress, Lethargic, - - Ill in appearance. HEENT: Atraumatic, PERRLA, Normocephalic Oral: No Gingival or Mucosal Lesions/ Ulcerations Neck: Supple, No Nodes, Trachea Midline Lungs: Diminished, Rales, Rhonchi, Tachypneic Cardiovascular: Regular rate, Regular Rhythm, Normal S1, Normal S2, No murmurs Abdomen: Bowel Sounds Present, Soft, Non Tender Extremities: No clubbing, No cyanosis, No edema Skin: No breakdown Musculoskeletal: No Tenderness to Palpation of Joints or Extremities Lymphatic: No Cervical, Supraclavicular, or Inguinal Adenopathy Neurological: - - Quite lethargic, but arousable to verbal stimulation. Appears to be postictal. Psych/Mental Status: Flat Affect Labs (Last 48 Hours) 06/30/19 06/30/19 06/30/19 12:35 12:35 12:35 WBC 11.3 H RBC 4.94 Hgb 14.0 Hct 44.8 MCV 90.7 MCH 28.3 MCHC 31.3 L RDW Std Deviation 50.5 H RDW Coeff of Aaron 15.3 H Plt Count 237 MPV 9.5 Immature Gran % (Auto) 0.300 Neut % (Auto) 90.6 H Lymph % (Auto) 2.9 L [place] % (Auto) 4.8 Eos % (Auto) 1.2 Baso % (Auto) 0.2 Absolute Neuts (auto) 10.2 H Absolute Lymphs (auto) 0.33 L Nucleated RBC % 0 Differential Comment SCANNED PT INR APTT Sodium 136 Potassium 3.7 Chloride 104 Carbon Dioxide 24.0 Anion Gap 8 BUN 17 Creatinine 1.64 H Estim Creat Clear Calc 47.02 Est GFR (MDRD) Af Amer 56 L Est GFR (MDRD) Non-Af 46 L BUN/Creatinine Ratio 10.4 Glucose 171 H Lactic Acid 7.2 H* Calcium 9.4 Urine Color Urine Clarity Urine pH Ur Specific [place] Urine Protein Urine Glucose (UA) Urine Ketones Urine Occult Blood Urine Nitrite Urine Bilirubin Urine Urobilinogen Ur Leukocyte Esterase Urine RBC Urine WBC Ur Squamous Epith Cells Urine Bacteria Urine Mucus POC Glucose 06/30/19 06/30/19 06/30/19 12:35 14:00 14:12 WBC RBC Hgb Hct MCV MCH MCHC RDW Std Deviation RDW Coeff of Aaron Plt Count MPV Immature Gran % (Auto) Neut % (Auto) Lymph % (Auto) [place] % (Auto) Eos % (Auto) Baso % (Auto) Absolute Neuts (auto) Absolute Lymphs (auto) Nucleated RBC % Differential Comment PT 13.3 INR 1.0 APTT 27.8 Sodium Potassium Chloride Carbon Dioxide Anion Gap BUN Creatinine Estim Creat Clear Calc Est GFR (MDRD) Af Amer Est GFR (MDRD) Non-Af BUN/Creatinine Ratio Glucose Lactic Acid Calcium Urine Color Yellow Urine Clarity Clear Urine pH 7.0 Ur Specific [place] 1.010 Urine Protein 15 H Urine Glucose (UA) Normal Urine Ketones Negative Urine Occult Blood Negative Urine Nitrite Negative Urine Bilirubin Negative Urine Urobilinogen Normal Ur Leukocyte Esterase Negative Urine RBC 0-5 SEEN Urine WBC 0-5 SEEN Ur Squamous Epith Cells 0-5 SEEN Urine Bacteria 0 SEEN Urine Mucus 0 SEEN POC Glucose 73 Microbiology 06/30/19 13:32 Mucosa - Nasopharyngeal Influenza Types A,B Direct FA (PARAG) - Final Clinical Impression(s) from Imaging Studies Chest X-Ray 06/30/19 13:14 IMPRESSION: Patchy infiltrates in the right upper and right lower lobes as well as increased markings at the left lung base. Radiographic follow-up is recommended. Electronically Signed: Bijan Oliveira, at 13:39 EST , Service support , Current Medications Sodium Chloride () 1,250 mls @ 999 mls/hr IV .[id number] ONE Stop: 06/30/19 15:13 Last Admin: 06/30/19 14:20 Dose: 999 mls/hr Documented by: Azithromycin 500 mg/ Dextrose 255 mls @ 250 mls/hr IV X1 ONE Stop: 06/30/19 15:19 Assessment/Plan RECOMMENDATIONS: 1. Broaden antimicrobials to include Zosyn. 2. Check MRSA screen, and if positive, start vancomycin as well. 3. Empiric BiPAP can be utilized with a pressure support of 12/6. 4. Agree with Keppra load. Continue as needed Ativan for breakthrough seizures. 5. Start scheduled bronchodilators and IV steroids. 6. Obtain neurology consultation. 7. Wean supplemental oxygen to maintain saturations at or above 90%. 8. Appropriate ICU prophylaxis. IMPRESSIONS: 1. Septic shock with concern for community-acquired versus aspiration pneumonia Septic shock designation was based upon a lactate of 7.2, which is likely elevated secondary to the patient's acute presentation including hypoxemia and seizure activity. The patient has not been hemodynamically unstable. I agree with continuing supplemental IV fluid hydration. The patient was initially treated with ceftriaxone and azithromycin, which I would recommend broadening to Zosyn. Check MRSA screen, and if positive, start vancomycin as well. Check respiratory viral panel along with strep and urine Legionella antigens. Recheck lactate level. 2. Acute hypoxemic respiratory insufficiency secondary to COPD exacerbation due to #1 Wean supplemental oxygen to maintain saturations at or above 90%. If needed, empiric BiPAP can be utilized with a pressure support of 12/6 centimeters of water. Continue scheduled bronchodilators and start IV steroids. Obtain arterial blood gas. 3. Acute kidney injury Likely prerenal in etiology. However, given the patient's recent seizure activity, will check CK level as well. Continue hydration. We will continue to monitor urine output. There is no current indication for renal replacement therapy. 4. Encephalopathy Likely secondary to underlying infectious etiology coupled with uncontrolled seizure activity and subsequent postictal state. As noted above, antimicrobials will be started. The patient has been loaded with Keppra. We will continue the patient on seizure precautions. 5. History of epilepsy with breakthrough seizure activity The patient was previously on Depakote and followed by neurology, who is no longer present at the hospital. Agree with loading with Keppra at this time. Will need to obtain neurology consultation for further recommendations. The patient is going to need to establish care with a new neurology provider on an outpatient basis. Continue seizure precautions and as needed Ativan for any witnessed seizure activity. 6. Obstructive sleep apnea The patient does have a known history of LACEY, but is no longer compliant with the use of nocturnal Pap therapy. 7. Continuous tobacco dependency The patient has been counseled extensively in the past regarding his need to achieve a smoke-free lifestyle, but continues to smoke cigarettes daily. This note was generated with [employer] software. It may contain incorrect words, spelling, and punctuation that were not noted in checking the note before signing. Code Visit Inpatient E&M: 18795 Init Hosp L3
[2019-06-30] MEDS: 0.9% Normal Saline 1,000 ML 999 ML IV (15:00)
[2019-06-30 15:10] LABS: Allen Test POS; Base Excess -2 mmol/L (-2 to +2); Bicarbonate 23.2 mmol/L (22-26); Blood Gas Specimen Type ART; O2 Delivery Device Nasal Can; PO2 75 mmHG (75-100); SITE L Radial; SO2 95 % (95-99); Time Given 1458; Total Carbon Dioxide 24 mmol/L; pCO2 38.1 mmHg (35-45); pH 7.39 (7.35-7.45)
[2019-06-30 17:22] LABS: Reflex Lactate? Y
[2019-06-30] MEDS: levETIRAcetam IV 1,000 MG/100 ML BAG 400 MG IV (17:29)
[2019-06-30] MEDS: 0.9% Normal Saline 1,000 ML 150 ML IV (17:29)
[2019-06-30 17:31] LABS: CPK Total, Creatine Kinase 47 U/L (39-308)
[2019-06-30 18:33] LABS: M R Staph aureus DNA By PCR Negative (Negative); Probe Check PASS; Specimen Processing Control PASS
[2019-06-30] MEDS: Budesonide Respules 0.5 MG/2 ML AMPUL.NEB. INHALATION (18:52)
[2019-06-30] MEDS: Ipratropium/Albuterol Sulfate 3 ML AMPUL.NEB INHALATION (18:52)
[2019-06-30 19:34] LABS: Lactic Acid 2.9 mmol/L (0.4-1.9)
--- NOTE | 2019-06-30 19:49 | NURSING ---
Pt's called in and asked that pt's brother and [id number] Orlin and Susan Prakash not be allowed to visit.
[2019-06-30] MEDS: Famotidine 200 MG/20 ML MDV 20 MG in 0.9% Normal Saline (Pres. free 8 ML 300 MG IV (22:42)
[2019-06-30] MEDS: 0.9% Saline Lock 10 ML Syringe IV (22:42)
[2019-07-01] VITALS (22 sets, daily range): BP systolic 90–131; BP diastolic 61–86; PULSE 82–96; RESP 13–23; TEMP 36.1–37.3; O2SAT 94–100
[2019-07-01] MEDS: 0.9% Normal Saline 1,000 ML 150 ML IV ×2 (00:35→06:22)
[2019-07-01 04:58] LABS: Absolute Lymphocyte Count 1.19 X10^3/uL (0.83-4.51); Absolute Neutrophil Count 11.9 X10^3/uL (2.0-7.7); Basophil# 0.02 X10^3/uL; Basophil% 0.1 % (0-1); Hematocrit 33.2 % (40-54); Hemoglobin 10.9 g/dL (13.0-16.5); Lymphocyte # 1.19 X10^3/ul (4.0); Lymphocyte % 8.6 % (19-41); Mean Corp Hgb Conc 32.8 g/dL (32-36); Mean Corpuscular Hgb 29.4 pg (27.0-32.0); Mean Corpuscular Volume 89.5 fL (80-94); Mean Platelet Vol. 9.4 fl (6.2-12.0); Monocyte# 0.62 X10^3/uL; Monocyte% 4.5 % (0-10); NRBC Flagged by Analyzer 0 % (0-5); Neutrophil # 11.94 X10^3/uL (2.7-7.7); Neutrophil % 86.2 % (47-70); POSITIVE MORPHOLOGY YES; Platelet Count 180 K/mm3 (150-450); RBC Distribution Width CV 15.2 % (11.6-14.6); RBC Distribution Width SD 49.4 fl (35.1-43.9); Red Blood Count 3.71 M/mm3 (4.6-6.2); White Blood Count 13.9 K/mm3 (4.4-11.0)
[2019-07-01 05:21] LABS: Differential Indicated SCAN CRITERIA MET
[2019-07-01] MEDS: 0.9% Saline Lock 10 ML Syringe IV ×2 (05:27→14:04)
[2019-07-01 05:28] LABS: Anion Gap 6 (5-15); BUN 21 mg/dL (7-18); BUN/Creat Ratio 27.3 RATIO (10-20); Calcium,Total 7.5 mg/dL (8.5-10.1); Chloride 106 mmol/L (98-107); Creatinine, Serum 0.77 mg/dL (0.70-1.30); EST Glomerular Filtration Rate 111 mL/min (>60); Est Glom Filt Rate - Afr Amer 134 mL/min (>60); Estimated Creatinine Clearance 96.67 ml/min; Glucose 106 mg/dL (74-106); Sodium Level 137 mmol/L (136-145)
--- NOTE | 2019-07-01 06:24 | PCM.PN.INT ---
Subjective: The patient was seen and examined at the bedside this morning. Events from the last 24 hours have been reviewed. The patient is currently afebrile, hemodynamically stable and maintaining appropriate oxygen saturations on room air. The patient is much more alert and conversant this morning. He denies any chest pain, resting shortness of breath or cough. He has not had any further witnessed seizure activity. Objective: The patient's most recent lab work, culture data and imaging studies have all been personally reviewed. Respiratory viral panel was negative. Legionella antigen was negative. Blood cultures are pending. Urine Legionella antigen was positive. General: Alert, Cooperative, No apparent distress HEENT: Atraumatic, PERRLA, Normocephalic Oral: No Gingival or Mucosal Lesions/ Ulcerations Neck: Supple, No Nodes, Trachea Midline Lungs: - - Globally diminished air movement bilaterally. Scant rhonchi, much improved from yesterday. Cardiovascular: Regular rate, Regular Rhythm, Normal S1, Normal S2, No murmurs Abdomen: Bowel Sounds Present, Soft, Non Tender Extremities: No clubbing, No cyanosis, No edema Skin: No breakdown Musculoskeletal: No Tenderness to Palpation of Joints or Extremities, No Muscle Wasting Lymphatic: No Cervical, Supraclavicular, or Inguinal Adenopathy Neurological: Neuro grossly intact Psych/Mental Status: Normal Affect, Appropriate Vital Signs Temp Pulse Resp BP Pulse Ox 96.9 F L 82 14 101/74 100 07/01/19 06:00 07/01/19 06:00 07/01/19 06:00 07/01/19 06:00 07/01/19 06:00 Oxygen Flow Rate (L/min) 2 Oxygen Delivery Method Room Air Weight: 157 lb 6.561 oz Body Mass Index (BMI) 25.1 Finger Stick Blood Glucose 73 Intake and Output for Last 24 Hours 06/29/19 06/30/19 07/01/19 23:59 23:59 23:59 Intake Total 3715 / 3715 2117.5 / 2117.5 Output Total 700 / 700 325 / 325 Balance 3015 / 3015 1792.5 / 1792.5 Labs (Last 48 Hours) 06/30/19 06/30/19 06/30/19 12:35 12:35 12:35 WBC 11.3 H RBC 4.94 Hgb 14.0 Hct 44.8 MCV 90.7 MCH 28.3 MCHC 31.3 L RDW Std Deviation 50.5 H RDW Coeff of Aaron 15.3 H Plt Count 237 MPV 9.5 Immature Gran % (Auto) 0.300 Neut % (Auto) 90.6 H Lymph % (Auto) 2.9 L [place] % (Auto) 4.8 Eos % (Auto) 1.2 Baso % (Auto) 0.2 Absolute Neuts (auto) 10.2 H Absolute Lymphs (auto) 0.33 L Nucleated RBC % 0 Differential Comment SCANNED PT INR APTT Specimen Type Sample Site pH Bicarbonate Actual POC Total CO2 Base Excess O2 Saturation ABG pCO2 ABG pO2 Mike Test O2 Delivery Device Liter Flow Blood Gas Notified Whom Blood Gas Notified Time Sodium 136 Potassium 3.7 Chloride 104 Carbon Dioxide 24.0 Anion Gap 8 BUN 17 Creatinine 1.64 H Estim Creat Clear Calc 47.02 Est GFR (MDRD) Af Amer 56 L Est GFR (MDRD) Non-Af 46 L BUN/Creatinine Ratio 10.4 Glucose 171 H Lactic Acid 7.2 H* Calcium 9.4 Total Creatine Kinase Urine Color Urine Clarity Urine pH Ur Specific [place] Urine Protein Urine Glucose (UA) Urine Ketones Urine Occult Blood Urine Nitrite Urine Bilirubin Urine Urobilinogen Ur Leukocyte Esterase Urine RBC Urine WBC Ur Squamous Epith Cells Urine Bacteria Urine Mucus MRSA (PCR) POC Glucose 06/30/19 06/30/19 06/30/19 12:35 12:35 14:00 WBC RBC Hgb Hct MCV MCH MCHC RDW Std Deviation RDW Coeff of Aaron Plt Count MPV Immature Gran % (Auto) Neut % (Auto) Lymph % (Auto) [place] % (Auto) Eos % (Auto) Baso % (Auto) Absolute Neuts (auto) Absolute Lymphs (auto) Nucleated RBC % Differential Comment PT 13.3 INR 1.0 APTT 27.8 Specimen Type Sample Site pH Bicarbonate Actual POC Total CO2 Base Excess O2 Saturation ABG pCO2 ABG pO2 Mike Test O2 Delivery Device Liter Flow Blood Gas Notified Whom Blood Gas Notified Time Sodium Potassium Chloride Carbon Dioxide Anion Gap BUN Creatinine Estim Creat Clear Calc Est GFR (MDRD) Af Amer Est GFR (MDRD) Non-Af BUN/Creatinine Ratio Glucose Lactic Acid Calcium Total Creatine Kinase 47 Urine Color Yellow Urine Clarity Clear Urine pH 7.0 Ur Specific [place] 1.010 Urine Protein 15 H Urine Glucose (UA) Normal Urine Ketones Negative Urine Occult Blood Negative Urine Nitrite Negative Urine Bilirubin Negative Urine Urobilinogen Normal Ur Leukocyte Esterase Negative Urine RBC 0-5 SEEN Urine WBC 0-5 SEEN Ur Squamous Epith Cells 0-5 SEEN Urine Bacteria 0 SEEN Urine Mucus 0 SEEN MRSA (PCR) POC Glucose 06/30/19 06/30/19 06/30/19 14:12 15:03 16:45 WBC RBC Hgb Hct MCV MCH MCHC RDW Std Deviation RDW Coeff of Aaron Plt Count MPV Immature Gran % (Auto) Neut % (Auto) Lymph % (Auto) [place] % (Auto) Eos % (Auto) Baso % (Auto) Absolute Neuts (auto) Absolute Lymphs (auto) Nucleated RBC % Differential Comment PT INR APTT Specimen Type ART Sample Site L Radial pH 7.39 Bicarbonate Actual 23.2 POC Total CO2 24 Base Excess -2 O2 Saturation 95 ABG pCO2 38.1 ABG pO2 75 Mike Test POS O2 Delivery Device Nasal Can Liter Flow 5.0 Blood Gas Notified Whom ED Blood Gas Notified Time 1458 Sodium Potassium Chloride Carbon Dioxide Anion Gap BUN Creatinine Estim Creat Clear Calc Est GFR (MDRD) Af Amer Est GFR (MDRD) Non-Af BUN/Creatinine Ratio Glucose Lactic Acid Calcium Total Creatine Kinase Urine Color Urine Clarity Urine pH Ur Specific [place] Urine Protein Urine Glucose (UA) Urine Ketones Urine Occult Blood Urine Nitrite Urine Bilirubin Urine Urobilinogen Ur Leukocyte Esterase Urine RBC Urine WBC Ur Squamous Epith Cells Urine Bacteria Urine Mucus MRSA (PCR) Negative POC Glucose 73 06/30/19 06/30/19 07/01/19 17:40 18:35 04:45 WBC 13.9 H RBC 3.71 L Hgb 10.9 L Hct 33.2 L MCV 89.5 MCH 29.4 MCHC 32.8 RDW Std Deviation 49.4 H RDW Coeff of Aaron 15.2 H Plt Count 180 MPV 9.4 Immature Gran % (Auto) 0.600 Neut % (Auto) 86.2 H Lymph % (Auto) 8.6 L [place] % (Auto) 4.5 Eos % (Auto) 0.0 Baso % (Auto) 0.1 Absolute Neuts (auto) 11.9 H Absolute Lymphs (auto) 1.19 Nucleated RBC % 0 Differential Comment PT INR APTT Specimen Type Sample Site pH Bicarbonate Actual POC Total CO2 Base Excess O2 Saturation ABG pCO2 ABG pO2 Mike Test O2 Delivery Device Liter Flow Blood Gas Notified Whom Blood Gas Notified Time Sodium Potassium Chloride Carbon Dioxide Anion Gap BUN Creatinine Estim Creat Clear Calc Est GFR (MDRD) Af Amer Est GFR (MDRD) Non-Af BUN/Creatinine Ratio Glucose Lactic Acid Cancelled 2.9 H* Calcium Total Creatine Kinase Urine Color Urine Clarity Urine pH Ur Specific [place] Urine Protein Urine Glucose (UA) Urine Ketones Urine Occult Blood Urine Nitrite Urine Bilirubin Urine Urobilinogen Ur Leukocyte Esterase Urine RBC Urine WBC Ur Squamous Epith Cells Urine Bacteria Urine Mucus MRSA (PCR) POC Glucose 07/01/19 04:45 WBC RBC Hgb Hct MCV MCH MCHC RDW Std Deviation RDW Coeff of Aaron Plt Count MPV Immature Gran % (Auto) Neut % (Auto) Lymph % (Auto) [place] % (Auto) Eos % (Auto) Baso % (Auto) Absolute Neuts (auto) Absolute Lymphs (auto) Nucleated RBC % Differential Comment PT INR APTT Specimen Type Sample Site pH Bicarbonate Actual POC Total CO2 Base Excess O2 Saturation ABG pCO2 ABG pO2 Mike Test O2 Delivery Device Liter Flow Blood Gas Notified Whom Blood Gas Notified Time Sodium 137 Potassium 4.0 Chloride 106 Carbon Dioxide 25.0 Anion Gap 6 BUN 21 H Creatinine 0.77 Estim Creat Clear Calc 96.67 Est GFR (MDRD) Af Amer 134 Est GFR (MDRD) Non-Af 111 BUN/Creatinine Ratio 27.3 H Glucose 106 Lactic Acid Calcium 7.5 L Total Creatine Kinase Urine Color Urine Clarity Urine pH Ur Specific [place] Urine Protein Urine Glucose (UA) Urine Ketones Urine Occult Blood Urine Nitrite Urine Bilirubin Urine Urobilinogen Ur Leukocyte Esterase Urine RBC Urine WBC Ur Squamous Epith Cells Urine Bacteria Urine Mucus MRSA (PCR) POC Glucose Microbiology 06/30/19 17:03 Mucosa - Nasopharyngeal Respiratory Panel (PCR) - Final 06/30/19 16:45 Urine Catheter - Catheter Legionella Antigen - Final 06/30/19 16:45 Urine Catheter - Catheter Streptococcus pneumoniae Antigen (M - Final Streptococcus pneumonia Ag 06/30/19 13:32 Mucosa - Nasopharyngeal Influenza Types A,B Direct FA (PARAG) - Final Clinical Impression(s) from Imaging Studies Chest X-Ray 06/30/19 13:14 IMPRESSION: Patchy infiltrates in the right upper and right lower lobes as well as increased markings at the left lung base. Radiographic follow-up is recommended. Electronically Signed: Bijan Oliveira, at 13:39 EST , Service support , Medical Necessity - Tobacco Use Smoking Status: Current every day smoker Tobacco Use: Cigarettes Assessment/Plan All Active Problems (Last Reviewed 09/28/18 @ 13:48 by Mildred Theodore) Shortness of breath (Acute) Hyperammonemia (Acute) Seizure (Acute) Left ankle injury (Resolved) History of hernia repair (Resolved) Bilateral tennis elbow (Resolved) Acute respiratory failure (Resolved) Hoarseness (Resolved) Pneumonia (Resolved) Sepsis (Resolved) RECOMMENDATIONS: 1. Okay to discontinue supplemental IV fluids. 2. Continue antibiotics, bronchodilators and steroids. 3. Continue Keppra and obtain neurology consultation. 4. Wean supplemental oxygen to maintain saturations at or above 90%. 5. Encourage incentive spirometer use and mobilize patient as tolerated. 6. The patient is medically stable for transfer out of the intensive care unit. IMPRESSIONS: 1. Septic shock secondary to pneumococcal pneumonia Septic shock designation was based upon a lactate of 7.2, which is likely elevated secondary to the patient's acute presentation including hypoxemia and seizure activity. The patient has not been hemodynamically unstable. Plan to continue current antimicrobial coverage, along with scheduled bronchodilators and IV steroids. 2. Acute hypoxemic respiratory insufficiency secondary to COPD exacerbation due to #1 Wean supplemental oxygen to maintain saturations at or above 90%. If needed, empiric BiPAP can be utilized with a pressure support of 12/6 centimeters of water. Continue scheduled bronchodilators and start IV steroids. 3. Acute kidney injury Improved. Likely prerenal in etiology. We will continue to monitor urine output. There is no current indication for renal replacement therapy. 4. Encephalopathy Improved. Likely secondary to underlying infectious etiology coupled with uncontrolled seizure activity and subsequent postictal state. As noted above, antimicrobials will be started. We will continue the patient on seizure precautions. 5. History of epilepsy with breakthrough seizure activity The patient was previously on Depakote and followed by neurology, who is no longer present at the hospital. Agree with continuing Keppra at this time. Will need to obtain neurology consultation for further recommendations. The patient is going to need to establish care with a new neurology provider on an outpatient basis. Continue seizure precautions and as needed Ativan for any witnessed seizure activity. 6. Obstructive sleep apnea The patient does have a known history of LACEY, but is no longer compliant with the use of nocturnal Pap therapy. 7. Continuous tobacco dependency I personally spent 5 minutes with the patient once again discussing the deleterious effects of continued tobacco use, including modalities which could be utilized to achieve a smoke-free lifestyle. This note was generated with [employer] dictation software. It may contain incorrect words, spelling, and punctuation that were not noted in checking the note before signing. Code Visit Inpatient E&M: 80622 Subs Hosp L3 - Behavior Interventions Behavior Intervention: 50033 Smoking Cessation 3-10 min
[2019-07-01] MEDS: Ipratropium/Albuterol Sulfate 3 ML AMPUL.NEB INHALATION ×3 (07:06→18:35)
--- NOTE | 2019-07-01 09:18 | PCM.PN.HOSP ---
Reason for Visit: Altered mental status, seizure and fever and pneumonia Objective: The patient was admitted on 06/30/2023 seizure, altered mental status and fever. Patient came to ER on 06/29 for brief episode of seizure and was discharged on Keppra. Patient also had vomiting, confusion and lethargy found short of breath along with cough productive of brownish sputum. Patient was febrile T-max 101.8 Fahrenheit in ED along with tachycardia, tachypnea. Later on patient was admitted in ICU with elevated lactic acid 7.2 concern of septic shock but hemodynamically, systolic blood pressure was not less than 90 mmHg or map < 65 In the morning patient is awake and alert. [facility] neurology consult was done. Patient is still has cough. T-max 100.9 Fahrenheit last night in ICU Vitals/I&O's: Vital Signs Temp Pulse Resp BP Pulse Ox 96.9 F L 92 15 101/74 100 07/01/19 06:00 07/01/19 07:06 07/01/19 07:06 07/01/19 06:00 07/01/19 07:06 Oxygen Flow Rate (L/min) 2 Oxygen Delivery Method Room Air Weight: 157 lb 6.561 oz Body Mass Index (BMI) 25.1 Finger Stick Blood Glucose 73 Intake and Output for Last 24 Hours 06/29/19 06/30/19 07/01/19 23:59 23:59 23:59 Intake Total 3715 / 3715 2117.5 / 2117.5 Output Total 700 / 700 325 / 325 Balance 3015 / 3015 1792.5 / 1792.5 General: Alert, Oriented x3, Cooperative HEENT: Atraumatic, PERRLA, EOMI, Normocephalic Neck: Supple, No JVD, Negative Carotid Bruits Lungs: No wheeze, No rales, Diminished - Air entry significantly diminished in the right posterior half of lung. No crepitation/rhonchi, Rales Cardiovascular: Regular rate, Regular Rhythm, Normal S1, Normal S2, No murmurs Abdomen: Bowel Sounds Present, Soft, Non Tender Extremities: No edema, Capillary Refill Less than 3 Seconds Skin: No rashes, No breakdown Musculoskeletal: No Tenderness to Palpation of Joints or Extremities, Arthritic Changes Neurological: Cranial nerves II-XII grossly intact, Neuro grossly intact, - - No hyperreflexia. Babinski's sign negative. No clonus movement. No seizure movement observed in the in the context of Psych/Mental Status: Normal Affect, Appropriate Microbiology Past 72 Hours 06/30/19 17:03 Mucosa - Nasopharyngeal Respiratory Panel (PCR) - Final 06/30/19 16:45 Urine Catheter - Catheter Legionella Antigen - Final 06/30/19 16:45 Urine Catheter - Catheter Streptococcus pneumoniae Antigen (M - Final Streptococcus pneumonia Ag 06/30/19 13:32 Mucosa - Nasopharyngeal Influenza Types A,B Direct FA (PARAG) - Final Laboratory Results 06/30/19 12:35: WBC 11.3 H, RBC 4.94, Hgb 14.0, Hct 44.8, MCV 90.7, MCH 28.3, MCHC 31.3 L, RDW Std Deviation 50.5 H, RDW Coeff of Aaron 15.3 H, Plt Count 237, MPV 9.5, Immature Gran % (Auto) 0.300, Neut % (Auto) 90.6 H, Lymph % (Auto) 2.9 L, [place] % (Auto) 4.8, Eos % (Auto) 1.2, Baso % (Auto) 0.2, Absolute Neuts (auto) 10.2 H, Absolute Lymphs (auto) 0.33 L, Nucleated RBC % 0, Differential Comment SCANNED 06/30/19 12:35: Sodium 136, Potassium 3.7, Chloride 104, Carbon Dioxide 24.0, Anion Gap 8, BUN 17, Creatinine 1.64 H, Estim Creat Clear Calc 47.02, Est GFR (MDRD) Af Amer 56 L, Est GFR (MDRD) Non-Af 46 L, BUN/Creatinine Ratio 10.4, Glucose 171 H, Calcium 9.4 06/30/19 12:35: Lactic Acid 7.2 H* 06/30/19 12:35: PT 13.3, INR 1.0, APTT 27.8 06/30/19 12:35: Total Creatine Kinase 47 06/30/19 14:00: Urine Color Yellow, Urine Clarity Clear, Urine pH 7.0, Ur Specific [place] 1.010, Urine Protein 15 H, Urine Glucose (UA) Normal, Urine Ketones Negative, Urine Occult Blood Negative, Urine Nitrite Negative, Urine Bilirubin Negative, Urine Urobilinogen Normal, Ur Leukocyte Esterase Negative, Urine RBC 0-5 SEEN, Urine WBC 0-5 SEEN, Ur Squamous Epith Cells 0-5 SEEN, Urine Bacteria 0 SEEN, Urine Mucus 0 SEEN 06/30/19 14:12: POC Glucose 73 06/30/19 15:03: Specimen Type ART, Sample Site L Radial, pH 7.39, Bicarbonate Actual 23.2, POC Total CO2 24, Base Excess -2, O2 Saturation 95, ABG pCO2 38.1, ABG pO2 75, Mike Test POS, O2 Delivery Device Nasal Can, Liter Flow 5.0, Blood Gas Notified Whom ED MD, Blood Gas Notified Time 1458 06/30/19 16:45: MRSA (PCR) Negative 06/30/19 17:40: Lactic Acid Cancelled 06/30/19 18:35: Lactic Acid 2.9 H* 07/01/19 04:45: WBC 13.9 H, RBC 3.71 L, Hgb 10.9 L, Hct 33.2 L, MCV 89.5, MCH 29.4, MCHC 32.8, RDW Std Deviation 49.4 H, RDW Coeff of Aaron 15.2 H, Plt Count 180, MPV 9.4, Immature Gran % (Auto) 0.600, Neut % (Auto) 86.2 H, Lymph % (Auto) 8.6 L, [place] % (Auto) 4.5, Eos % (Auto) 0.0, Baso % (Auto) 0.1, Absolute Neuts (auto) 11.9 H, Absolute Lymphs (auto) 1.19, Nucleated RBC % 0, Differential Comment 07/01/19 04:45: Sodium 137, Potassium 4.0, Chloride 106, Carbon Dioxide 25.0, Anion Gap 6, BUN 21 H, Creatinine 0.77, Estim Creat Clear Calc 96.67, Est GFR (MDRD) Af Amer 134, Est GFR (MDRD) Non-Af 111, BUN/Creatinine Ratio 27.3 H, Glucose 106, Calcium 7.5 L Current Medications Acetaminophen (Tylenol) 650 mg PO Q4H PRN PRN PRN Reason: Pain Score 1-10/10/FEVER Albuterol Sulfate (Ventolin Aerosols) 2.5 mg INHALATION Q4H PRN PRN Reason: sob/wheezing Albuterol/Ipratropium (Duoneb) 3 ml INHALATION Q6HWA.RT TOMASA Last Admin: 07/01/19 07:06 Dose: 3 ml Documented by: Amitriptyline HCl (Elavil) 100 mg PO QHS [facility] Last Admin: 06/30/19 21:22 Dose: Not Given Documented by: Divalproex Sodium (Depakote) 750 mg PO BID [facility] Enoxaparin Sodium (Lovenox) 40 mg SC DAILY [facility] Famotidine (Pepcid) 20 mg PO BID [facility] Glucagon () 1 mg IM .X1 PRN PRN Reason: Hypoglycemia Piperacillin Sod/Tazobactam (Sod 3.375 gm/ Sodium Chloride) 50 mls @ 12.5 mls/hr IV Q8 [facility] Last Admin: 07/01/19 05:23 Dose: 12.5 mls/hr Documented by: Sodium Chloride () 1,000 mls @ 150 mls/hr IV .Q6H40M [facility] Last Admin: 07/01/19 06:22 Dose: 150 mls/hr Documented by: Dextrose (Dextrose 10%-Water) 250 mls @ 999 mls/hr IV .Q16M PRN; Protocol PRN Reason: HYPOGLYCEMIA Levetiracetam (Keppra Tablet) 500 mg PO BID [facility] Lorazepam (Ativan) 1 mg IV Q4H PRN PRN PRN Reason: SEIZURES Methylprednisolone (Solu-Medrol) 40 mg IV Q8 [facility] Last Admin: 07/01/19 05:23 Dose: 40 mg Documented by: Multivitamins/Minerals (Multivitamin With Minerals) 1 tablet PO DAILY@0800 [facility] Ondansetron HCl (Zofran) 4 mg IV Q8H PRN PRN PRN Reason: NAUSEA/VOMITING Propranolol HCl (Inderal) 10 mg PO BID [facility] Last Admin: 06/30/19 21:22 Dose: Not Given Documented by: Sertraline HCl (Zoloft) 150 mg PO QHS [facility] Last Admin: 06/30/19 21:22 Dose: Not Given Documented by: Sodium Chloride () 10 - 40 ml IV UD PRN PRN Reason: SALINE FLUSH Last Admin: 07/01/19 05:27 Dose: 20 ml Documented by: STROKE Vital Signs/Narrative: Vital Signs Temp Pulse Resp BP Pulse Ox 07/01/19 07:06 92 15 100 07/01/19 06:00 96.9 F L 82 14 101/74 100 Medical Necessity - Tobacco Use Smoking Status: Current every day smoker Tobacco Use: Cigarettes Assessment/Plan All Active Problems (Last Reviewed 09/28/18 @ 13:48 by Mildred Theodore) Shortness of breath (Acute) Hyperammonemia (Acute) Seizure (Acute) Left ankle injury (Resolved) History of hernia repair (Resolved) Bilateral tennis elbow (Resolved) Acute respiratory failure (Resolved) Hoarseness (Resolved) Pneumonia (Resolved) Sepsis (Resolved) 58-year-old male admitted with history of recent diagnosis of seizure probably in May 2019 during was admitted in ICU through ER for fever, chills, cough, mild shortness of breath along with seizure movement observed in the ER. Clinical diagnosis was made septic shock secondary to aspiration pneumonia along and breakthrough seizure 1. Septic shock mostly secondary to Streptococcus pneumoniae pneumonia concern of aspiration pneumonia: Patient was admitted in ICU with Sirs criteria 3/4 (fever, tachycardia, tachypnea) with lactic acidosis 7.2 and chest x-ray finding of patchy infiltrate in right upper and lower lobes increased markings left lung base consistent with multifocal pneumonia. Currently patient is on IV Zosyn. MRSA is negative. Vancomycin discontinued. Urinary antigen is positive Streptococcus pneumonia. Blood cultures x2 are negative. Respiratory panel negative. Continue IV fluid. 2. Acute hypoxic respiratory failure due to COPD exacerbation from pneumonia: ABG was done and shows pH 7.39, CO2 38, PO2 75 on 5 L of oxygen. Oxygen is weaned off. Currently pulse ox 100% on room air. Hypoxia resolved. Continue bronchodilator, incentive spirometry, chest physiotherapy and IV Solu-Medrol. On Incruse Ellipta and Breo Ellipta at home. 3. Acute metabolic encephalopathy due to aspiration pneumonia and seizure disorder: Most likely from infection and uncontrolled seizure with subsequent postictal state. Currently patient is on baseline. 4. Seizure disorder.: It seems patient has partial seizure of left upper extremity. Patient was seen by [facility] tele Neurologist, Dr Sravan Pederson and I was present at that time and discussed with him. Advised Keppra 500 mg twice daily, Depakote 750 mg twice daily. He advised EEG and check Depakote level. Patient on Ativan as needed for seizure breakthrough. Earlier patient was given Keppra in ER patient was followed by Dr. Gillespie in the past. 5. Lactic acidosis: Lactic acid was 7.2 on admission. It seems mainly secondary to seizure, hypoxia and infection. Sepsis protocol was followed. Last lactic acid 2.9. 6. DARWIN: Creatinine is 1.64 with a baseline of less than 1. Acute kidney injury resolved. Last BUN/creatinine 21/0.77. DVT Prophylaxis: Lovenox Microbiology Past 72 Hours 06/30/19 17:03 Mucosa - Nasopharyngeal Respiratory Panel (PCR) - Final 06/30/19 16:45 Urine Catheter - Catheter Legionella Antigen - Final 06/30/19 16:45 Urine Catheter - Catheter Streptococcus pneumoniae Antigen (M - Final Streptococcus pneumonia Ag 06/30/19 13:32 Mucosa - Nasopharyngeal Influenza Types A,B Direct FA (PARAG) - Final Laboratory Results 06/30/19 12:35: WBC 11.3 H, RBC 4.94, Hgb 14.0, Hct 44.8, MCV 90.7, MCH 28.3, MCHC 31.3 L, RDW Std Deviation 50.5 H, RDW Coeff of Aaron 15.3 H, Plt Count 237, MPV 9.5, Immature Gran % (Auto) 0.300, Neut % (Auto) 90.6 H, Lymph % (Auto) 2.9 L, [place] % (Auto) 4.8, Eos % (Auto) 1.2, Baso % (Auto) 0.2, Absolute Neuts (auto) 10.2 H, Absolute Lymphs (auto) 0.33 L, Nucleated RBC % 0, Differential Comment SCANNED 06/30/19 12:35: Sodium 136, Potassium 3.7, Chloride 104, Carbon Dioxide 24.0, Anion Gap 8, BUN 17, Creatinine 1.64 H, Estim Creat Clear Calc 47.02, Est GFR (MDRD) Af Amer 56 L, Est GFR (MDRD) Non-Af 46 L, BUN/Creatinine Ratio 10.4, Glucose 171 H, Calcium 9.4 06/30/19 12:35: Lactic Acid 7.2 H* 06/30/19 12:35: PT 13.3, INR 1.0, APTT 27.8 06/30/19 12:35: Total Creatine Kinase 47 06/30/19 14:00: Urine Color Yellow, Urine Clarity Clear, Urine pH 7.0, Ur Specific [place] 1.010, Urine Protein 15 H, Urine Glucose (UA) Normal, Urine Ketones Negative, Urine Occult Blood Negative, Urine Nitrite Negative, Urine Bilirubin Negative, Urine Urobilinogen Normal, Ur Leukocyte Esterase Negative, Urine RBC 0-5 SEEN, Urine WBC 0-5 SEEN, Ur Squamous Epith Cells 0-5 SEEN, Urine Bacteria 0 SEEN, Urine Mucus 0 SEEN 06/30/19 14:12: POC Glucose 73 06/30/19 15:03: Specimen Type ART, Sample Site L Radial, pH 7.39, Bicarbonate Actual 23.2, POC Total CO2 24, Base Excess -2, O2 Saturation 95, ABG pCO2 38.1, ABG pO2 75, Mike Test POS, O2 Delivery Device Nasal Can, Liter Flow 5.0, Blood Gas Notified Whom ED MD, Blood Gas Notified Time 1458 06/30/19 16:45: MRSA (PCR) Negative 06/30/19 17:40: Lactic Acid Cancelled 06/30/19 18:35: Lactic Acid 2.9 H* 07/01/19 04:45: WBC 13.9 H, RBC 3.71 L, Hgb 10.9 L, Hct 33.2 L, MCV 89.5, MCH 29.4, MCHC 32.8, RDW Std Deviation 49.4 H, RDW Coeff of Aaron 15.2 H, Plt Count 180, MPV 9.4, Immature Gran % (Auto) 0.600, Neut % (Auto) 86.2 H, Lymph % (Auto) 8.6 L, [place] % (Auto) 4.5, Eos % (Auto) 0.0, Baso % (Auto) 0.1, Absolute Neuts (auto) 11.9 H, Absolute Lymphs (auto) 1.19, Nucleated RBC % 0, Differential Comment 07/01/19 04:45: Sodium 137, Potassium 4.0, Chloride 106, Carbon Dioxide 25.0, Anion Gap 6, BUN 21 H, Creatinine 0.77, Estim Creat Clear Calc 96.67, Est GFR (MDRD) Af Amer 134, Est GFR (MDRD) Non-Af 111, BUN/Creatinine Ratio 27.3 H, Glucose 106, Calcium 7.5 L Clinical Impression(s) from Imaging Studies Chest X-Ray 06/30/19 13:14 IMPRESSION: Patchy infiltrates in the right upper and right lower lobes as well as increased markings at the left lung base. Radiographic follow-up is recommended. Code Visit Inpatient E&M: 14859 Subs Hosp L3
[2019-07-01] MEDS: levETIRAcetam 500 MG Tablet PO ×2 (10:24→21:36)
[2019-07-01] MEDS: Propranolol 10 MG Tablet PO ×2 (10:28→21:36)
[2019-07-01] MEDS: Divalproex Sodium 250 MG Tablet 750 MG PO ×2 (10:28→21:36)
[2019-07-01] MEDS: Multivitamins,Ther W-Minerals Tablet 1 TABLET PO (10:28)
[2019-07-01] MEDS: Famotidine 20 MG Tablet PO ×2 (10:28→21:36)
[2019-07-01 10:48] LABS: Valproic Acid (Depakene) Level 49 ug/mL (50-100)
--- NOTE | 2019-07-01 12:44 | CHAPLAIN ---
Type of Pastoral Visit _x__ Initial Visit ___ Follow-up Visit ___ On-call Visit ___ General Patient Visit ___ Spiritual Assessment ___ Family Conference ___ Bereavement ___ Rapid Response ___ Code Blue ___ Other (describe below) Pastoral Care Referral From _x__ Patient ___ Family ___ Nurse ___ Physician ___ Logistics Officer ___ Laborer [place] ___ Other (describe below) Sacrament/Intervention ___ Active listening ___ Anointing ___ Hoahaoism ___ Bereavement ___ Communion ___ Lashae exploration ___ ___ Life review ___ Prayer ___ Reconciliation ___ Sacrament of Sick _x__ Supportive presence ___ Wedding ___ Other (describe below) Pastoral Comments met with patient and many family members; pt has evidence of good support; pt expresses great improvement and his goal is to get home soon; no other needs at this time
[2019-07-01] MEDS: Gabapentin 600 MG Tablet PO ×2 (14:04→16:37)
[2019-07-01] MEDS: Enoxaparin 40 MG/0.4 ML Syringe SC (14:04)
--- NOTE | 2019-07-01 15:17 | NURSING ---
Called and made her aware of transfer to PCU [id number]
[2019-07-01] MEDS: Sertraline 50 MG Tablet 150 MG PO (21:36)
[2019-07-01] MEDS: Amitriptyline 100 MG Tablet PO (21:36)
[2019-07-02 03:29] VITALS: PULSE 77
[2019-07-02 03:35] VITALS: BP 131/77; PULSE 89; RESP 16; TEMP 36.6; O2SAT 97
[2019-07-02 06:47] VITALS: PULSE 81; RESP 16; O2SAT 98
[2019-07-02] MEDS: Ipratropium/Albuterol Sulfate 3 ML AMPUL.NEB INHALATION (06:47)
[2019-07-02 07:00] VITALS: PULSE 85
--- NOTE | 2019-07-02 07:30 | PN_ITS ---
Subjective: The patient was seen and examined at the bedside this morning. Events from the last 24 hours have been reviewed. The patient is currently afebrile, hemodynamically stable and maintaining appropriate oxygen saturations on room air. The patient reports that he feels much better since being admitted to the hospital. He denies the presence of shortness of breath. He has not had any further seizure activity. Objective: The patient's most recent lab work, culture data and imaging studies have all been personally reviewed. Respiratory viral panel was negative. Legionella antigen was negative. Blood cultures are pending. Urine Legionella antigen was positive. - Physical Exam Vitals/I&O's: Vital Signs Temp Pulse Resp BP Pulse Ox 97.8 F 89 16 131/77 H 97 07/02/19 03:35 07/02/19 03:35 07/02/19 03:35 07/02/19 03:35 07/02/19 03:35 Oxygen Flow Rate (L/min) 2 Oxygen Delivery Method Room Air Weight: 158 lb 1 oz Body Mass Index (BMI) 25.1 Finger Stick Blood Glucose 73 Intake and Output for Last 24 Hours 06/30/19 07/01/19 07/02/19 23:59 23:59 23:59 Intake Total 3715 / 3715 3977.5 / 3977.5 290 / 290 Output Total 700 / 700 325 / 325 Balance 3015 / 3015 3652.5 / 3652.5 290 / 290 General: Alert, Cooperative, No apparent distress HEENT: Atraumatic, PERRLA, Normocephalic Oral: Moist Mucosa, No Gingival or Mucosal Lesions/ Ulcerations Neck: Supple, No Nodes, Trachea Midline Lungs: No rhonchi, No wheeze, No rales, Diminished Cardiovascular: Regular rate, Regular Rhythm, Normal S1, Normal S2, No murmurs Abdomen: Bowel Sounds Present, Soft, Non Tender Extremities: No clubbing, No cyanosis, No edema Skin: No breakdown Musculoskeletal: No Tenderness to Palpation of Joints or Extremities, No Muscle Wasting Lymphatic: No Cervical, Supraclavicular, or Inguinal Adenopathy Neurological: Cranial nerves II-XII grossly intact, Neuro grossly intact Psych/Mental Status: Normal Affect, Appropriate Labs (Last 48 Hours) 06/30/19 06/30/19 06/30/19 12:35 12:35 12:35 WBC 11.3 H RBC 4.94 Hgb 14.0 Hct 44.8 MCV 90.7 MCH 28.3 MCHC 31.3 L RDW Std Deviation 50.5 H RDW Coeff of Aaron 15.3 H Plt Count 237 MPV 9.5 Immature Gran % (Auto) 0.300 Neut % (Auto) 90.6 H Lymph % (Auto) 2.9 L Garfield % (Auto) 4.8 Eos % (Auto) 1.2 Baso % (Auto) 0.2 Absolute Neuts (auto) 10.2 H Absolute Lymphs (auto) 0.33 L Nucleated RBC % 0 Differential Comment SCANNED PT INR APTT Specimen Type Sample Site pH Bicarbonate Actual POC Total CO2 Base Excess O2 Saturation ABG pCO2 ABG pO2 Mike Test O2 Delivery Device Liter Flow Blood Gas Notified Whom Blood Gas Notified Time Sodium 136 Potassium 3.7 Chloride 104 Carbon Dioxide 24.0 Anion Gap 8 BUN 17 Creatinine 1.64 H Estim Creat Clear Calc 47.02 Est GFR (MDRD) Af Amer 56 L Est GFR (MDRD) Non-Af 46 L BUN/Creatinine Ratio 10.4 Glucose 171 H Lactic Acid 7.2 H* Calcium 9.4 Total Creatine Kinase Urine Color Urine Clarity Urine pH Ur Specific [place] Urine Protein Urine Glucose (UA) Urine Ketones Urine Occult Blood Urine Nitrite Urine Bilirubin Urine Urobilinogen Ur Leukocyte Esterase Urine RBC Urine WBC Ur Squamous Epith Cells Urine Bacteria Urine Mucus Valproic Acid MRSA (PCR) POC Glucose 06/30/19 06/30/19 06/30/19 12:35 12:35 14:00 WBC RBC Hgb Hct MCV MCH MCHC RDW Std Deviation RDW Coeff of Aaron Plt Count MPV Immature Gran % (Auto) Neut % (Auto) Lymph % (Auto) Garfield % (Auto) Eos % (Auto) Baso % (Auto) Absolute Neuts (auto) Absolute Lymphs (auto) Nucleated RBC % Differential Comment PT 13.3 INR 1.0 APTT 27.8 Specimen Type Sample Site pH Bicarbonate Actual POC Total CO2 Base Excess O2 Saturation ABG pCO2 ABG pO2 Mike Test O2 Delivery Device Liter Flow Blood Gas Notified Whom Blood Gas Notified Time Sodium Potassium Chloride Carbon Dioxide Anion Gap BUN Creatinine Estim Creat Clear Calc Est GFR (MDRD) Af Amer Est GFR (MDRD) Non-Af BUN/Creatinine Ratio Glucose Lactic Acid Calcium Total Creatine Kinase 47 Urine Color Yellow Urine Clarity Clear Urine pH 7.0 Ur Specific [place] 1.010 Urine Protein 15 H Urine Glucose (UA) Normal Urine Ketones Negative Urine Occult Blood Negative Urine Nitrite Negative Urine Bilirubin Negative Urine Urobilinogen Normal Ur Leukocyte Esterase Negative Urine RBC 0-5 SEEN Urine WBC 0-5 SEEN Ur Squamous Epith Cells 0-5 SEEN Urine Bacteria 0 SEEN Urine Mucus 0 SEEN Valproic Acid MRSA (PCR) POC Glucose 06/30/19 06/30/19 06/30/19 14:12 15:03 16:45 WBC RBC Hgb Hct MCV MCH MCHC RDW Std Deviation RDW Coeff of Aaron Plt Count MPV Immature Gran % (Auto) Neut % (Auto) Lymph % (Auto) Garfield % (Auto) Eos % (Auto) Baso % (Auto) Absolute Neuts (auto) Absolute Lymphs (auto) Nucleated RBC % Differential Comment PT INR APTT Specimen Type ART Sample Site L Radial pH 7.39 Bicarbonate Actual 23.2 POC Total CO2 24 Base Excess -2 O2 Saturation 95 ABG pCO2 38.1 ABG pO2 75 Mike Test POS O2 Delivery Device Nasal Can Liter Flow 5.0 Blood Gas Notified Whom ED MD Blood Gas Notified Time 1458 Sodium Potassium Chloride Carbon Dioxide Anion Gap BUN Creatinine Estim Creat Clear Calc Est GFR (MDRD) Af Amer Est GFR (MDRD) Non-Af BUN/Creatinine Ratio Glucose Lactic Acid Calcium Total Creatine Kinase Urine Color Urine Clarity Urine pH Ur Specific [place] Urine Protein Urine Glucose (UA) Urine Ketones Urine Occult Blood Urine Nitrite Urine Bilirubin Urine Urobilinogen Ur Leukocyte Esterase Urine RBC Urine WBC Ur Squamous Epith Cells Urine Bacteria Urine Mucus Valproic Acid MRSA (PCR) Negative POC Glucose 73 06/30/19 06/30/19 07/01/19 17:40 18:35 04:45 WBC 13.9 H RBC 3.71 L Hgb 10.9 L Hct 33.2 L MCV 89.5 MCH 29.4 MCHC 32.8 RDW Std Deviation 49.4 H RDW Coeff of Aaron 15.2 H Plt Count 180 MPV 9.4 Immature Gran % (Auto) 0.600 Neut % (Auto) 86.2 H Lymph % (Auto) 8.6 L Garfield % (Auto) 4.5 Eos % (Auto) 0.0 Baso % (Auto) 0.1 Absolute Neuts (auto) 11.9 H Absolute Lymphs (auto) 1.19 Nucleated RBC % 0 Differential Comment PT INR APTT Specimen Type Sample Site pH Bicarbonate Actual POC Total CO2 Base Excess O2 Saturation ABG pCO2 ABG pO2 Mike Test O2 Delivery Device Liter Flow Blood Gas Notified Whom Blood Gas Notified Time Sodium Potassium Chloride Carbon Dioxide Anion Gap BUN Creatinine Estim Creat Clear Calc Est GFR (MDRD) Af Amer Est GFR (MDRD) Non-Af BUN/Creatinine Ratio Glucose Lactic Acid Cancelled 2.9 H* Calcium Total Creatine Kinase Urine Color Urine Clarity Urine pH Ur Specific [place] Urine Protein Urine Glucose (UA) Urine Ketones Urine Occult Blood Urine Nitrite Urine Bilirubin Urine Urobilinogen Ur Leukocyte Esterase Urine RBC Urine WBC Ur Squamous Epith Cells Urine Bacteria Urine Mucus Valproic Acid MRSA (PCR) POC Glucose 07/01/19 07/01/19 04:45 10:00 WBC RBC Hgb Hct MCV MCH MCHC RDW Std Deviation RDW Coeff of Aaron Plt Count MPV Immature Gran % (Auto) Neut % (Auto) Lymph % (Auto) [place] % (Auto) Eos % (Auto) Baso % (Auto) Absolute Neuts (auto) Absolute Lymphs (auto) Nucleated RBC % Differential Comment PT INR APTT Specimen Type Sample Site pH Bicarbonate Actual POC Total CO2 Base Excess O2 Saturation ABG pCO2 ABG pO2 Mike Test O2 Delivery Device Liter Flow Blood Gas Notified Whom Blood Gas Notified Time Sodium 137 Potassium 4.0 Chloride 106 Carbon Dioxide 25.0 Anion Gap 6 BUN 21 H Creatinine 0.77 Estim Creat Clear Calc 96.67 Est GFR (MDRD) Af Amer 134 Est GFR (MDRD) Non-Af 111 BUN/Creatinine Ratio 27.3 H Glucose 106 Lactic Acid Calcium 7.5 L Total Creatine Kinase Urine Color Urine Clarity Urine pH Ur Specific [place] Urine Protein Urine Glucose (UA) Urine Ketones Urine Occult Blood Urine Nitrite Urine Bilirubin Urine Urobilinogen Ur Leukocyte Esterase Urine RBC Urine WBC Ur Squamous Epith Cells Urine Bacteria Urine Mucus Valproic Acid 49 L MRSA (PCR) POC Glucose Microbiology 06/30/19 17:03 Mucosa - Nasopharyngeal Respiratory Panel (PCR) - Final 06/30/19 16:45 Urine Catheter - Catheter Legionella Antigen - Final 06/30/19 16:45 Urine Catheter - Catheter Streptococcus pneumoniae Antigen (M - Final Streptococcus pneumonia Ag 06/30/19 13:32 Mucosa - Nasopharyngeal Influenza Types A,B Direct FA (PARAG) - Final Clinical Impression(s) from Imaging Studies Chest X-Ray 06/30/19 13:14 IMPRESSION: Patchy infiltrates in the right upper and right lower lobes as well as increased markings at the left lung base. Radiographic follow-up is recommended. Electronically Signed: Bijan Sushmafranciscajohn, at 13:39 EST , Service support , Current Medications Acetaminophen (Tylenol) 650 mg PO Q4H PRN PRN PRN Reason: Pain Score 1-10/10/FEVER Albuterol Sulfate (Ventolin Aerosols) 2.5 mg INHALATION Q4H PRN PRN Reason: sob/wheezing Albuterol/Ipratropium (Duoneb) 3 ml INHALATION Q6HWA.RT [facility] Last Admin: 07/02/19 06:47 Dose: 3 ml Documented by: Amitriptyline HCl (Elavil) 100 mg PO QHS [facility] Last Admin: 07/01/19 21:36 Dose: 100 mg Documented by: Divalproex Sodium (Depakote) 750 mg PO BID [facility] Last Admin: 07/01/19 21:36 Dose: 750 mg Documented by: Enoxaparin Sodium (Lovenox) 40 mg SC DAILY [facility] Last Admin: 07/01/19 14:04 Dose: 40 mg Documented by: Famotidine (Pepcid) 20 mg PO BID [facility] Last Admin: 07/01/19 21:36 Dose: 20 mg Documented by: Gabapentin (Neurontin) 600 mg PO TIDCM [facility] Last Admin: 07/01/19 16:37 Dose: 600 mg Documented by: Glucagon () 1 mg IM .X1 PRN PRN Reason: Hypoglycemia Piperacillin Sod/Tazobactam (Sod 3.375 gm/ Sodium Chloride) 50 mls @ 12.5 mls/hr IV Q8 [facility] Last Admin: 07/02/19 05:07 Dose: 12.5 mls/hr Documented by: Dextrose (Dextrose 10%-Water) 250 mls @ 999 mls/hr IV .Q16M PRN; Protocol PRN Reason: HYPOGLYCEMIA Levetiracetam (Keppra Tablet) 500 mg PO BID [facility] Last Admin: 07/01/19 21:36 Dose: 500 mg Documented by: Lorazepam (Ativan) 1 mg IV Q4H PRN PRN PRN Reason: SEIZURES Methylprednisolone (Solu-Medrol) 40 mg IV Q8 [facility] Last Admin: 07/02/19 05:07 Dose: 40 mg Documented by: Multivitamins/Minerals (Multivitamin With Minerals) 1 tablet PO DAILY@0800 [facility] Last Admin: 07/01/19 10:28 Dose: 1 tablet Documented by: Ondansetron HCl (Zofran) 4 mg IV Q8H PRN PRN PRN Reason: NAUSEA/VOMITING Propranolol HCl (Inderal) 10 mg PO BID [facility] Last Admin: 07/01/19 21:36 Dose: 10 mg Documented by: Sertraline HCl (Zoloft) 150 mg PO QHS [facility] Last Admin: 07/01/19 21:36 Dose: 150 mg Documented by: Sodium Chloride () 10 - 40 ml IV UD PRN PRN Reason: SALINE FLUSH Last Admin: 07/01/19 14:04 Dose: 10 ml Documented by: Medical Necessity - Tobacco Use Smoking Status: Current every day smoker Tobacco Use: Cigarettes Assessment/Plan All Active Problems (Last Reviewed 09/28/18 @ 13:48 by Mildred Theodore) Shortness of breath (Acute) Hyperammonemia (Acute) Seizure (Acute) Left ankle injury (Resolved) History of hernia repair (Resolved) Bilateral tennis elbow (Resolved) Acute respiratory failure (Resolved) Hoarseness (Resolved) Pneumonia (Resolved) Sepsis (Resolved) RECOMMENDATIONS: 1. Transition from Zosyn to ceftriaxone. 2. Transition from IV steroids to prednisone 40 mg daily by mouth. Plan for prednisone burst at discharge. 3. Continue antiepileptic medications per neurology recommendations. 4. Encourage incentive spirometer use and mobilize patient as tolerated. 5. Perform walking oximetry study prior to consideration for discharge home. 6. Outpatient pulmonary follow-up within 2 weeks of discharge is strongly recommended. IMPRESSIONS: 1. Septic shock secondary to pneumococcal pneumonia Septic shock designation was based upon a lactate of 7.2, which is likely elevated secondary to the patient's acute presentation including hypoxemia and seizure activity. The patient has not been hemodynamically unstable. At this time, the patient can be transition from Zosyn to ceftriaxone to complete treatment course. 2. Acute hypoxemic respiratory insufficiency secondary to COPD exacerbation due to #1 Wean supplemental oxygen to maintain saturations at or above 90%. If needed, empiric BiPAP can be utilized with a pressure support of 12/6 centimeters of water. Continue scheduled bronchodilators and steroids, which will be transitioned to prednisone today. 3. Acute kidney injury Improved. Likely prerenal in etiology. We will continue to monitor urine output. There is no current indication for renal replacement therapy. 4. Encephalopathy Improved. Likely secondary to underlying infectious etiology coupled with uncontrolled seizure activity and subsequent postictal state. As noted above, antimicrobials will be started. We will continue the patient on seizure precautions. 5. History of epilepsy with breakthrough seizure activity The patient was previously on Depakote and followed by neurology, who is no longer present at the hospital. Agree with continuing Keppra at this time. Will need to obtain neurology consultation for further recommendations. The patient is going to need to establish care with a new neurology provider on an outpatient basis. Continue seizure precautions and as needed Ativan for any witnessed seizure activity. 6. Obstructive sleep apnea The patient does have a known history of LACEY, but is no longer compliant with the use of nocturnal Pap therapy. 7. Continuous tobacco dependency Tobacco cessation counseling was provided. This note was generated with [employer] dictation software. It may contain incorrect words, spelling, and punctuation that were not noted in checking the note before signing. Code Visit Inpatient E&M: 20743 Subs Hosp L2
[2019-07-02 08:19] VITALS: BP 115/79; PULSE 75; RESP 16; TEMP 36.6; O2SAT 96
[2019-07-02] MEDS: Famotidine 20 MG Tablet PO (08:23)
[2019-07-02] MEDS: Multivitamins,Ther W-Minerals Tablet 1 TABLET PO (08:23)
[2019-07-02] MEDS: Enoxaparin 40 MG/0.4 ML Syringe SC (08:24)
[2019-07-02] MEDS: levETIRAcetam 500 MG Tablet PO (08:24)
[2019-07-02] MEDS: Gabapentin 600 MG Tablet PO (08:25)
[2019-07-02] MEDS: Propranolol 10 MG Tablet PO (08:26)
[2019-07-02] MEDS: Divalproex Sodium 250 MG Tablet 750 MG PO (09:36)
--- NOTE | 2019-07-02 09:48 | DCINST_ITS ---
You will use the following diet at home:: Regular Your food should be the consistency of: Regular Discharge Activity: May Not Drive - SEIZURE disorder Weight Bearing Status: Weight bearing as tolerated Call your doctor if you observe: Fever of 101 or Higher, Coldness, Increased Pain, Numbness or Tingling, Inability to urinate, Inability to have a bowel movement, Using more than one pad per hour, Shortness of breath, Dizziness, Fainting spells, Swelling in the ankles, Chest pain, Prolonged hiccoughing, Increased palpitations (irregular heartbeat), Calf discomfort, Uncontrolled pain Allergies/Adverse Reactions: Allergies dextromethorphan HBr [From NyQuil] Adverse Reaction (Intermediate, Verified 06/30/19 12:32) tachycardia, feels anxious doxylamine [From NyQuil] Adverse Reaction (Intermediate, Verified 06/30/19 12:32) Tachycardia, feels anxious pseudoephedrine HCl [From NyQuil] Adverse Reaction (Intermediate, Verified 06/30/19 12:32) Tachycardia, feels anxious sertraline HCl [From Zoloft] Adverse Reaction (Verified 06/30/19 12:32) Diarrhea Medications to take at Discharge Propranolol HCl [Inderal (Beta Danielle)] 10 mg PO BID 07/11/17 albuterol sulfate 90 mcg/actuation aerosol inhaler 2 puff INHALATION Q4H PRN PRN #1 inhaler 02/04/19 Amitriptyline HCl 100 mg PO QHS 06/30/19 Fluticasone/Vilanterol [Breo Ellipta 200-25 Mcg INH] 1 inh INHALATION DAILY 06/30/19 Gabapentin 600 mg PO TID 06/30/19 Multivit-Min/FA/Lycopen/Lutein [Centrum Silver Men Tablet] 1 tab PO DAILY 06/30/19 Mupirocin 1 applicatio TP TID 06/30/19 Omeprazole 40 mg PO DAILY 06/30/19 Sertraline HCl 150 mg PO QHS 06/30/19 Umeclidinium [place] [Incruse Ellipta] 1 puff INHALATION DAILY 06/30/19 Amoxicillin/Potassium Clav [Augmentin 875-125 Tablet] 1 ea PO BID #14 tab 07/02/19 Divalproex Sodium [Depakote] 750 mg PO BID #90 tablet. 07/02/19 Quetiapine Fumarate [Seroquel] 25 mg PO QHS PRN PRN #0 07/02/19 levETIRAcetam tablet [Keppra tablet] 500 mg PO BID #60 tab 07/02/19 predniSONE tablet 40 mg PO DAILY@0800 #5 tab 07/02/19 The following prescriptions were given: Amoxicillin/Potassium Clav [Augmentin 875-125 Tablet] 1 ea PO BID #14 tab Transmission Status: Pending to [facility] Divalproex Sodium [Depakote] 750 mg PO BID #90 tablet.dr Transmission Status: Pending to [facility] levETIRAcetam tablet [Keppra tablet] 500 mg PO BID #60 tab Transmission Status: Pending to [facility] predniSONE tablet 40 mg PO DAILY@0800 #5 tab Transmission Status: Pending to [facility] Primary Care Physician: Priscilla Nixon MD [Primary Care Provider] - Please follow up with your Primary Care Physician in: in 1-2 weeks Test Results: Test results from this visit will be discussed in further detail at your follow- up appointment, if applicable. Please Follow Up With: Donna Gillespie MD When: in 2 weeks Please Follow Up With: Rock Dick DO When: with Tammy Stone NP in 2 wks
--- NOTE | 2019-07-02 09:50 | PCM.DC.SUM ---
Discharge Date and Diagnosis Date of Admission: 06/30/19 Date of Discharge: 07/02/19 - Secondary Discharge Diagnosis Chronic Problems (Last Reviewed 09/28/18 @ 13:48 by Mildred Theodore) Nicotine dependence, cigarettes, uncomplicated (Chronic) Acute hypoxemic respiratory failure (Chronic) Seizure disorder (Chronic) Diastolic dysfunction (Chronic) Depression (Chronic) LACEY (obstructive sleep apnea) (Chronic) CPAP 11 cm of water Lung nodule (Chronic) Sleep-related breathing disorder (Chronic) Bipolar disorder (Chronic) GERD (gastroesophageal reflux disease) (Chronic) COPD (chronic obstructive pulmonary disease) (Chronic) Encephalopathy (Chronic) Traumatic brain injury (Chronic) Spinal stenosis (Chronic) Tobacco abuse (Chronic) Migraine (Chronic) Hospital Course and Treatment Operations: None Summary of Care Provided: The patient is a 58-year-old male admitted with history of recent diagnosis of seizure probably in May 2019 during [place] was admitted in ICU through ER for fever, chills, cough, mild shortness of breath along with seizure movement observed in the ER. Clinical diagnosis was made septic shock secondary to aspiration pneumonia along with breakthrough seizure 1. Septic shock mostly secondary to Streptococcus pneumoniae pneumonia with concern of aspiration pneumonia: Patient was admitted in ICU with Sirs criteria 3/4 (fever, tachycardia, tachypnea) with lactic acidosis 7.2 and chest x-ray finding of patchy infiltrate in right upper and lower lobes increased markings left lung base consistent with multifocal pneumonia. Currently patient is on IV Zosyn. MRSA is negative. Vancomycin discontinued. Urinary antigen is positive Streptococcus pneumonia. Blood cultures x2 are negative. Respiratory panel negative. Continue IV fluid. 07/02/2019: Patient respiratory status has much improved. No tachypnea or hypoxia. Patient is discharged on Augmentin 875 mg twice daily for 7 days. 2. Acute hypoxic respiratory failure due to COPD exacerbation from pneumonia: ABG was done and shows pH 7.39, CO2 38, PO2 75 on 5 L of oxygen. Oxygen is weaned off. Currently pulse ox 100% on room air. Hypoxia resolved. Continue bronchodilator, incentive spirometry, chest physiotherapy and IV Solu-Medrol. On Incruse Ellipta and Breo Ellipta at home. 07/02/2019: Patient has inhalers at home. Discharged on prednisone 40 mg burst for 5 days 3. Acute metabolic encephalopathy due to aspiration pneumonia and seizure disorder: Most likely from infection and uncontrolled seizure with subsequent postictal state. Currently patient is on baseline. 07/02/2019: Encephalopathy resolved. Patient is awake alert and oriented x3. 4. Seizure disorder.: It seems patient has partial seizure of left upper extremity. Patient was seen by [facility] tele Neurologist, Dr Sravan Pederson and I was present at that time and discussed with him. Advised Keppra 500 mg twice daily, Depakote 750 mg twice daily. He advised EEG and check Depakote level. Patient on Ativan as needed for seizure breakthrough. Earlier patient was given Keppra in ER patient was followed by Dr. Gillespie in the past. 07/02/2019: Prescription given for Keppra 500 mg twice daily, Depakote 750 mg twice daily. EEG reviewed and discussed with the patient and his and mother present in the room. Shows mild slowing, 7 Hz suggestive of mild diffuse encephalopathy but no epileptiform discharges, lateralizing signs or seizure patterns. Depakote level 49. Follow-up with Dr. Gillespie. 5. Lactic acidosis: Lactic acid was 7.2 on admission. It seems mainly secondary to seizure, hypoxia and infection. Sepsis protocol was followed. Last lactic acid 2.9. 6. DARWIN: Creatinine is 1.64 with a baseline of less than 1. Acute kidney injury resolved. Last BUN/creatinine 21/0.77. DVT Prophylaxis: Lovenox Discharge medication reconciliation done. Discharge follow-up instructions completed. Discharge process discussed with the patient, patient's and mother present in the room and all questions were answered to patient's satisfaction. Total time spent, exact 35 minutes on discharge meds reconciliation, examination, coordination of care with nurses and ancillary staff, review of imaging and blood test and discussion with the patient on follow-up instructions Subjective: Patient is breathing well. No chest pain or shortness of breath. No seizure-like movement observed in ICU or in PCU. Socks 96% on room air. Objective: General: Alert, Oriented x3, Cooperative HEENT: Atraumatic, PERRLA, EOMI, Normocephalic Neck: Supple, No JVD, Negative Carotid Bruits Lungs: No wheeze, No rales, Air entry diminished in the right posterior half of lung. No crepitation/rhonchi, Rales Cardiovascular: Regular rate, Regular Rhythm, Normal S1, Normal S2, No murmurs Abdomen: Bowel Sounds Present, Soft, Non Tender Extremities: No edema, Capillary Refill Less than 3 Seconds Skin: No rashes, No breakdown Musculoskeletal: No Tenderness to Palpation of Joints or Extremities, Arthritic Changes Neurological: Cranial nerves II-XII grossly intact, Neuro grossly intact, No hyperreflexia on DTR. Babinski's sign negative. No clonus movement. No tremor/seizure movement Psych/Mental Status: Normal Affect, Appropriate - Physical Exam Vitals/I&O's: Vital Signs Temp Pulse Resp BP Pulse Ox 97.9 F 75 16 115/79 96 07/02/19 08:19 07/02/19 08:19 07/02/19 08:19 07/02/19 08:19 07/02/19 08:19 Oxygen Flow Rate (L/min) 2 Oxygen Delivery Method Room Air Weight: 158 lb 1 oz Body Mass Index (BMI) 25.1 Finger Stick Blood Glucose 73 Intake and Output for Last 24 Hours 06/30/19 07/01/19 07/02/19 23:59 23:59 23:59 Intake Total 3715 / 3715 3977.5 / 3977.5 290 / 290 Output Total 700 / 700 325 / 325 Balance 3015 / 3015 3652.5 / 3652.5 290 / 290 Microbiology Past 72 Hours 06/30/19 17:03 Mucosa - Nasopharyngeal Respiratory Panel (PCR) - Final 06/30/19 16:45 Urine Catheter - Catheter Legionella Antigen - Final 06/30/19 16:45 Urine Catheter - Catheter Streptococcus pneumoniae Antigen (M - Final Streptococcus pneumonia Ag 06/30/19 13:32 Mucosa - Nasopharyngeal Influenza Types A,B Direct FA (PARAG) - Final Laboratory Results 07/01/19 10:00: Valproic Acid 49 L Current Medications Acetaminophen (Tylenol) 650 mg PO Q4H PRN PRN PRN Reason: Pain Score 1-10/10/FEVER Albuterol Sulfate (Ventolin Aerosols) 2.5 mg INHALATION Q4H PRN PRN Reason: sob/wheezing Albuterol/Ipratropium (Duoneb) 3 ml INHALATION Q6HWA.RT [facility] Last Admin: 07/02/19 06:47 Dose: 3 ml Documented by: Amitriptyline HCl (Elavil) 100 mg PO QHS [facility] Last Admin: 07/01/19 21:36 Dose: 100 mg Documented by: Divalproex Sodium (Depakote) 750 mg PO BID [facility] Last Admin: 07/02/19 09:36 Dose: 750 mg Documented by: Enoxaparin Sodium (Lovenox) 40 mg SC DAILY [facility] Last Admin: 07/02/19 08:24 Dose: 40 mg Documented by: Famotidine (Pepcid) 20 mg PO BID [facility] Last Admin: 07/02/19 08:23 Dose: 20 mg Documented by: Gabapentin (Neurontin) 600 mg PO TIDCM [facility] Last Admin: 07/02/19 08:25 Dose: 600 mg Documented by: Glucagon () 1 mg IM .X1 PRN PRN Reason: Hypoglycemia Dextrose (Dextrose 10%-Water) 250 mls @ 999 mls/hr IV .Q16M PRN; Protocol PRN Reason: HYPOGLYCEMIA Ceftriaxone Sodium 2 gm/ (Sodium Chloride) 50 mls @ 100 mls/hr IV Q24 [facility] Levetiracetam (Keppra Tablet) 500 mg PO BID [facility] Last Admin: 07/02/19 08:24 Dose: 500 mg Documented by: Lorazepam (Ativan) 1 mg IV Q4H PRN PRN PRN Reason: SEIZURES Multivitamins/Minerals (Multivitamin With Minerals) 1 tablet PO DAILY@0800 [facility] Last Admin: 07/02/19 08:23 Dose: 1 tablet Documented by: Ondansetron HCl (Zofran) 4 mg IV Q8H PRN PRN PRN Reason: NAUSEA/VOMITING Prednisone () 40 mg PO DAILY@0800 [facility] Propranolol HCl (Inderal) 10 mg PO BID [facility] Last Admin: 07/02/19 08:26 Dose: 10 mg Documented by: Sertraline HCl (Zoloft) 150 mg PO QHS [facility] Last Admin: 07/01/19 21:36 Dose: 150 mg Documented by: Sodium Chloride () 10 - 40 ml IV UD PRN PRN Reason: SALINE FLUSH Last Admin: 07/01/19 14:04 Dose: 10 ml Documented by: Discharge Activity: May Not Drive - SEIZURE disorder Weight Bearing Status: Weight bearing as tolerated Call your doctor if you observe: Fever of 101 or Higher, Coldness, Increased Pain, Numbness or Tingling, Inability to urinate, Inability to have a bowel movement, Using more than one pad per hour, Shortness of breath, Dizziness, Fainting spells, Swelling in the ankles, Chest pain, Prolonged hiccoughing, Increased palpitations (irregular heartbeat), Calf discomfort, Uncontrolled pain Home Medications: Medications to take at Discharge Propranolol HCl [Inderal (Beta Danielle)] 10 mg PO BID 07/11/17 albuterol sulfate 90 mcg/actuation aerosol inhaler 2 puff INHALATION Q4H PRN PRN #1 inhaler 02/04/19 Amitriptyline HCl 100 mg PO QHS 06/30/19 Fluticasone/Vilanterol [Breo Ellipta 200-25 Mcg INH] 1 inh INHALATION DAILY 06/30/19 Gabapentin 600 mg PO TID 06/30/19 Multivit-Min/FA/Lycopen/Lutein [Centrum Silver Men Tablet] 1 tab PO DAILY 06/30/19 Mupirocin 1 applicatio TP TID 06/30/19 Omeprazole 40 mg PO DAILY 06/30/19 Sertraline HCl 150 mg PO QHS 06/30/19 Umeclidinium [place] [Incruse Ellipta] 1 puff INHALATION DAILY 06/30/19 Amoxicillin/Potassium Clav [Augmentin 875-125 Tablet] 1 ea PO BID #14 tab 07/02/19 Divalproex Sodium [Depakote] 750 mg PO BID #90 tablet. 07/02/19 Quetiapine Fumarate [Seroquel] 25 mg PO QHS PRN PRN #0 07/02/19 levETIRAcetam tablet [Keppra tablet] 500 mg PO BID #60 tab 07/02/19 predniSONE tablet 40 mg PO DAILY@0800 #5 tab 07/02/19 Following Prescrptions Were Given to Patient: Amoxicillin/Potassium Clav [Augmentin 875-125 Tablet] 1 ea PO BID #14 tab Transmission Status: Received by [facility] Divalproex Sodium [Depakote] 750 mg PO BID #90 tablet. Transmission Status: Received by [facility] levETIRAcetam tablet [Keppra tablet] 500 mg PO BID #60 tab Transmission Status: Received by [facility] predniSONE tablet 40 mg PO DAILY@0800 #5 tab Transmission Status: Received by [facility] Primary Care Physician: Priscilla Nixon MD [Primary Care Provider] - Please follow up with your Primary Care Physician in: in 1-2 weeks Please Follow Up With: Donna Gillespie MD When: in 2 weeks Please Follow Up With: Rock Dick DO When: with Tammy Stone NP in 2 wks Medical Necessity - Tobacco Use Smoking Status: Current every day smoker Tobacco Use: Cigarettes Meaningful Use Info Meaningful Use Diagnoses (Choose all that apply): None applicable Code Visit Inpatient E&M: 54184 Disch Hosp
--- NOTE | 2019-07-02 10:08 | CASEMGMT ---
RN CM Assessment Presentation: Seizure activity, hx of COPD Intro role of CM and purpose of RN CM assessment to patient and his in room. Pt is awake, alert, deferring to to answer assessment questions and give details. States she takes care of all of this. Demographics, PCP and Pharmacy verified. Pt is generally independent @ home. States does no have care needs. PCP: Dr. Nixon Specialists: Dr. Dick Preferred Pharmacy: [facility] Insurance: [facility] Prescription Benefit: yes LNOK: , Erin Randall Living Arrangements: Lives independently with . Transportation: drives DME: none; walking test to be performed for oxygen testing. Reviewed list of DME providers, pt requests [facility] if Home O2 is needed. HHC/SNF: none SW Referral: no Patient DC goals: Home DC PLAN: Home. Dianelys SILVA RN ACM
[2019-07-02 10:24] LABS: Absolute Neutrophil Count 13.6 X10^3/uL (2.0-7.7); Basophil# 0.01 X10^3/uL; Basophil% 0.1 % (0-1); Hematocrit 35.4 % (40-54); Hemoglobin 11.4 g/dL (13.0-16.5); Lymphocyte % 7.9 % (19-41); Mean Corp Hgb Conc 32.2 g/dL (32-36); Mean Corpuscular Hgb 28.1 pg (27.0-32.0); Mean Corpuscular Volume 87.2 fL (80-94); Mean Platelet Vol. 9.3 fl (6.2-12.0); Monocyte# 0.28 X10^3/uL; Monocyte% 1.8 % (0-10); NRBC Flagged by Analyzer 0 % (0-5); Neutrophil % 89.3 % (47-70); Platelet Count 216 K/mm3 (150-450); RBC Distribution Width SD 47.8 fl (35.1-43.9); Red Blood Count 4.06 M/mm3 (4.6-6.2); White Blood Count 15.2 K/mm3 (4.4-11.0)
[2019-07-02] MEDS: 0.9% Saline Lock 10 ML Syringe IV (10:47)
[2019-07-02 10:49] VITALS: O2SAT 93; O2SAT 94
[2019-07-02 11:06] LABS: Anion Gap 6 (5-15); BUN 12 mg/dL (7-18); BUN/Creat Ratio 16.6 RATIO (10-20); Calcium,Total 8.6 mg/dL (8.5-10.1); Chloride 104 mmol/L (98-107); Creatinine, Serum 0.72 mg/dL (0.70-1.30); EST Glomerular Filtration Rate 119 mL/min (>60); Est Glom Filt Rate - Afr Amer 144 mL/min (>60); Estimated Creatinine Clearance 103.38 ml/min; Glucose 151 mg/dL (74-106); Potassium 3.7 mmol/L (3.5-5.1); Sodium Level 135 mmol/L (136-145)
--- NOTE | 2019-07-02 11:51 | NURSING ---
Reviewed and agreed on all charting with Joyce Lind RN
--- NOTE | 2019-07-05 14:16 | CASEMGMT ---
JULIETTE CM Discharge Follow-up Phone Call: FREDO: Nicole Strata: 4 Call Date: 07/05/2019 Discharge Date: 07/02/2019 Time of Call: 1415 Duration: 2 minutes Admitting Diagnosis: Sepsis/pneumonia, COPD exac, respiratory failure, seizure disorder Discharge follow-up call made to pt. Pt states he has been feeling well since discharged. Pt states he gets SOB if he does too much but he states he has not been doing too much since returning home. Pt states he obtained his medications, has been taking them as prescribed, and denies any questions about them. Pt aware of his follow-up appointments and denies any transportation concerns. Pt denies any questions or concerns regarding his discharge instructions. Brandon Leal RN
== END 2019-07-02 11:54 | disposition home or self-care (01) | DRG 871 ==
LOC: ED 13:25 → ICU 14:47 → PCU 07-01 15:39
PROVIDERS: Internal Medicine Critical Care Medicine; Admitting Provider Student in an Organized Health Care Education/Training Program; Emergency Provider Emergency Medicine; Family Provider Internal Medicine; PCP Internal Medicine; Referring Provider Student in an Organized Health Care Education/Training Program; Visit Provider Internal Medicine
DX: A41.9 Sepsis, unspecified organism (principal); R65.21 Severe sepsis with septic shock; J96.01 Acute respiratory failure with hypoxia; G93.41 Metabolic encephalopathy; J13 Pneumonia due to Streptococcus pneumoniae; J69.0 Pneumonitis due to inhalation of food and vomit; N17.9 Acute kidney failure, unspecified; J44.1 Chronic obstructive pulmonary disease with (acute) exacerbation; J44.0 Chronic obstructive pulmonary disease with (acute) lower respiratory infection; G47.33 Obstructive sleep apnea (adult) (pediatric); G40.909 Epilepsy, unspecified, not intractable, without status epilepticus; F17.210 Nicotine dependence, cigarettes, uncomplicated
CPT/HCPCS: 36415; 36600; 51702; 71045; 80048; 80053; 80164; 81001; 82550; 82803; 82962; 83605; 85025; 85610; 85730; 87040; 87449; 87633; 87641; 87804; 93005; 94640; 95819; 96361; 96365; 97802; 99251; 99285; 99406; J7030; J7050; A4216; G0463; J0696; J3490

== ENCOUNTER 2019-08-22 21:48 | Inpatient (IN) | payer MEDICARE, MEDICAID, SELFPAY ==
[2019-07-19 13:13] VITALS: BMI 23.7
[2019-08-22 21:50] VITALS: BP 144/82; PULSE 125; RESP 35; TEMP 37.3; O2SAT 93; BMI 24.8
[2019-08-22 21:55] VITALS: BP 144/80; PULSE 123; RESP 25; TEMP 37.3; O2SAT 91
--- NOTE | 2019-08-22 22:04 | EKG12_ITS ---
Test Reason : SOB Blood Pressure : / mmHG Vent. Rate : 122 BPM Atrial Rate : 122 BPM P-R Int : 154 ms QRS Dur : 098 ms QT Int : 312 ms P-R-T Axes : 072 091 068 degrees QTc Int : 444 ms Sinus tachycardia Possible Left atrial enlargement Rightward axis Borderline ECG Confirmed by SHIRLEY ARBOLEDA, MARLON ([id number]), scientific editor HONG ELIAS ([id number] on 08/23/2019 3:23:43 PM Referred By: DEVONTE Confirmed By:MARLON WATSON MD
[2019-08-22 22:05] VITALS: PULSE 119; RESP 28; O2SAT 94
--- NOTE | 2019-08-22 22:06 | ED.VISSUMM ---
- ER Visit Summary Date of Service: 08/22/19 Chief Complaint: Shortness of breath History of Present Illness: The patient is a 58 M who presents with shortness of breath that began yesterday and has been getting progressively worse. Patient states his breathing is worse with any exertion. Patient states he is coughing up some light brown sputum. Patient denies any fevers or chills. Patient denies any sore throat or rhinorrhea. Patient is to some stinging chest pain in his left anterior chest when he coughs. Patient denies any other chest pain. Patient denies any nausea or vomiting. Patient denies any diaphoresis. Physical Examination: Vital signs are stable except for tachycardia of 125 and a tachypnea of 35. Patient is afebrile. Patient is in no acute distress. Oral mucosa is pink and moist. Neck is supple. Trachea is midline. There is no JVD. Heart was regular and tachycardic. Lungs were diminished diffusely. There is adequate respiratory effort noted. Abdomen is soft. Bowel sounds are normal. There is no tenderness. Cranial nerves II through XII are intact. There are no focal motor or sensory deficits noted. Extremities are intact. There is no calf tenderness or edema. Test Results: EKG showed a sinus tachycardia with a rate of 122. There are no acute ST or T wave changes. This was unchanged compared to previous EKG dated 06/30/2019. CBC shows a leukocytosis of 17.1. Metabolic profile was essentially within normal limits. PT with INR and PTT were normal. Flu swab was negative. Urinalysis does not show any evidence of urinary tract infection. D-dimer was elevated at 0.8. Lactate was normal. PA and lateral chest x-ray shows a right lower lobe infiltrate. Due to the elevated d-dimer, CTA of the chest was obtained. There is no evidence of pulmonary embolism. Emergency Department Course and Treatment: Patient was given DuoNeb and albuterol aerosols here. Patient was placed on oxygen. Patient meets criteria for sepsis but not severe sepsis. Patient was started on Rocephin and Zithromax for his pneumonia. Case was discussed with the hospitalist. Patient will be admitted. Disposition: Admit to hospital Impression: 1. Pneumonia 2. Sepsis This note was generated with [employer] dictation software. It may contain incorrect words, spelling, and punctuation that were not noted in review of the chart prior to signing ED Disposition - Plan for ED Patient: Disposition: Acute Care Hospital [facility] Diagnosis: Pneumonia, Sepsis Referrals: Priscilla Nixon MD [Primary Care Provider] -
[2019-08-22] MEDS: Ipratropium/Albuterol Sulfate 3 ML AMPUL.NEB INHALATION (22:10)
[2019-08-22] MEDS: Albuterol 2.5 MG/3 ML VIAL.NEB. INHALATION ×2 (22:10)
[2019-08-22 22:19] LABS: Absolute Lymphocyte Count 1.53 X10^3/uL (0.83-4.51); Absolute Neutrophil Count 14.1 X10^3/uL (2.0-7.7); Basophil# 0.04 X10^3/uL; Basophil% 0.2 % (0-1); Eosinophil# 0.03 X10^3/uL; Eosinophils% 0.2 % (0-5); Hematocrit 36.9 % (40-54); Hemoglobin 12.1 g/dL (13.0-16.5); Lymphocyte # 1.53 X10^3/ul (4.0); Lymphocyte % 8.9 % (19-41); Mean Corp Hgb Conc 32.8 g/dL (32-36); Mean Corpuscular Hgb 27.1 pg (27.0-32.0); Mean Corpuscular Volume 82.6 fL (80-94); Mean Platelet Vol. 9.3 fl (6.2-12.0); Monocyte# 1.14 X10^3/uL; Monocyte% 6.7 % (0-10); NRBC Flagged by Analyzer 0 % (0-5); Neutrophil # 14.13 X10^3/uL (2.7-7.7); Neutrophil % 82.4 % (47-70); POSITIVE MORPHOLOGY YES; Platelet Count 300 K/mm3 (150-450); RBC Distribution Width CV 15.2 % (11.6-14.6); RBC Distribution Width SD 46.1 fl (35.1-43.9); Red Blood Count 4.47 M/mm3 (4.6-6.2); White Blood Count 17.1 K/mm3 (4.4-11.0)
[2019-08-22] MEDS: MethylPREDNISolone 125 MG/2 ML Vial 60 MG IV (22:26)
[2019-08-22] MEDS: 0.9% Normal Saline 1,000 ML 999 ML IV (22:27)
--- NOTE | 2019-08-22 22:32 | RAD_ITS ---
HISTORY: DYSPNEA, COUGHPT WAS EXPOSED TO FLU EXAM: XR Chest 2 Views COMPARISON: June 30, 2019 FINDINGS: LINES/DEVICES: None. LUNGS: There are chronic interstitial changes. No pneumothorax. New asymmetric disease is present peripherally in the right upper and right lower lobes. The right costophrenic sulcus is blunted to a greater degree than previously. Elevation of the right hemidiaphragm remains MEDIASTINUM AND CARDIOVASCULAR STRUCTURES: Cardiac silhouette not enlarged. Central airways and mediastinal contour are unremarkable. Athersclerotic plaque within the aortic arch. BONES AND SOFT TISSUES: Thoracic spondylosis. RAD/Chest PA and Lateral IMPRESSION: Chronic interestitial changes. New right lung airspace disease with small right pleural effusion possibly representing pneumonia. at 0001 Reported and signed by: Wes Cunningham MD Electronically Signed: Wes Cunningham MD at 0:00 EDT Tel , Service support ,
[2019-08-22 22:35] LABS: Differential Indicated SCAN CRITERIA MET
--- NOTE | 2019-08-22 22:37 | ED.RN ---
LAB CALLED WITH D-DIMER 0.8. PRIMARY NURSE, ALEX WASHINGTON,RN, INFORMED OF SAME.
--- NOTE | 2019-08-22 22:40 | CT_ITS ---
STUDY: CTA CHEST REASON FOR EXAM: Male, 58 years old. DYSPNEA.Hx of COPD, sleep apnea and seizures. Repeated scan d/t insufficient contrast enhancement on first. Both series included. RADIATION DOSAGE (If Supplied By Facility): CTDIvol = ( 9.49 ) mGy, DLP = ( 797.75 ) mGycm TECHNIQUE: The examination was performed with the intravenous administration of Isovue 370 150cc. Post-processing of the angiographic images was performed, with multiplanar reformation and 3D reconstruction. Individualized dose optimization techniques were used for this CT. COMPARISON: 04/12/2019. FINDINGS: Normal enhancement of the main pulmonary artery and right and left pulmonary arteries. Normal enhancement of the bilateral peripheral pulmonary arteries. There is no demonstrated pulmonary embolism. Normal thoracic aorta and visualized great vessels. There is no demonstrated aortic dissection. Normal heart and pericardium. Multiple enlarged lymph nodes within the bilateral hilar regions, largest on the right measuring 1.8 x 1.5 cm on the left 1.5 x 1.4 cm. Paratracheal lymphadenopathy with largest lymph node measuring 1.6 x 1.4 cm. Normal visualized trachea and bronchi. The lungs are well expanded. Multilevel small bullous disease, more significant from the lung apices. Multiple nodules scattered within the bilateral lung henry, some with cavitations in measuring different sizes between 4 mm up to a largest dimension of 2.1 cm. Associated spiculations suggests underlying neoplasm. There is mild bilateral lower lobe atelectasis, right more than left more significant at the right middle lobe. Patchy opacity within the right middle lobe with bronchiectasis, interstitial prominence, cannot exclude superimposed infiltrate. Pleural-based areas of thickening with questionable spiculated structure measuring 2.5 x 2.0 cm. Multiple pleural-based areas of atelectasis. No pleural effusion or pneumothorax. Normal chest wall structures. There are degenerative changes of thoracic spine. There are diffuse osteopenic changes. Small low-attenuation structures within the left liver lobe and right temporal lobe, too small to adequately characterize in largest measuring 7 mm in. Small right mid lower renal pole low-attenuation structure measuring 0.6 cm, too small to characterize and statistically consistent with a cyst. Remainder of the visualized upper abdomen is unremarkable. CT/CTA Chest W/WO Contrast IMPRESSION: Negative CTA chest examination, without a demonstrated pulmonary embolism or arterial dissection. Multiple bilateral nodular opacities within the lung henry, right more than left with spiculated margins raising the concern of metastatic disease. Differential diagnosis includes diffuse pneumonitis with underlying interstitial lung disease or pulmonary fibrosis is not excluded. Mild bronchiectasis as described. Correlation with history of neoplasm recommended. Possible right middle lobe infiltrate with underlying bronchiectasis, scarring and atelectasis. Adjacent pleural-based masslike density with spiculations does not exclude neoplasm. Mediastinal and bilateral hilar lymphadenopathy. Electronically Signed: Juany Rahman MD at 0:54 EDT , Service support ,
[2019-08-22 22:42] LABS: Anion Gap 8 (5-15); BUN 19 mg/dL (7-18); BUN/Creat Ratio 24.8 RATIO (10-20); Calcium,Total 8.5 mg/dL (8.5-10.1); Chloride 98 mmol/L (98-107); Creatinine, Serum 0.77 mg/dL (0.70-1.30); EST Glomerular Filtration Rate 111 mL/min (>60); Est Glom Filt Rate - Afr Amer 135 mL/min (>60); Estimated Creatinine Clearance 103.64 ml/min; Glucose 106 mg/dL (74-106); Potassium 4.1 mmol/L (3.5-5.1); Sodium Level 132 mmol/L (136-145)
[2019-08-22 22:52] VITALS: BP 151/73; PULSE 121; RESP 28; TEMP 37.6; O2SAT 96
[2019-08-22 22:56] VITALS: O2SAT 95
[2019-08-22 22:57] LABS: Differential Comment SCANNED
[2019-08-22 23:09] LABS: International Normalized Ratio 1.1
[2019-08-22 23:10] LABS: Partial Thromboplast Time 34.4 Seconds (24.1-36.2)
[2019-08-22 23:24] LABS: Bacteria 0 SEEN /hpf (None Seen); Mucous, Urine 0 SEEN /hpf (<or=2+); Red Blood Cells-Urine 0 SEEN /hpf (0-5); Squamous Epithelial Cells - UA 0 SEEN /hpf (0-5); White Blood Cells 0 SEEN /hpf (0-5)
[2019-08-22 23:28] LABS: Color, Urine Yellow (Yellow); Glucose, Dipstick Normal (Normal); Ketone-Dipstick 50 mg/dl (Negative); Leukocyte Esterase-Dipstick Negative /ul (Negative); Nitrite-Dipstick Negative (Negative); Occult Blood-Urine Negative /ul (Negative); Protein-Dipstick 30 mg/dl (Negative); Specific Gravity, Urine 1.005 (1.002-1.030); Urine Bilirubin Dipstick Negative (Negative); Urine Clarity Sl. Cloudy (Clear); Urine Urobilinogen Normal (Normal)
--- NOTE | 2019-08-22 23:31 | ED.RN ---
per dr. gore, vs q15, q30 can be discontinued at this time.
[2019-08-22 23:37] LABS: Amorphous Sediment 1+
[2019-08-22 23:39] VITALS: RESP 24
[2019-08-22 23:57] LABS: Lactic Acid 1.9 mmol/L (0.4-1.9)
[2019-08-23] VITALS (20 sets, daily range): BP systolic 100–131; BP diastolic 58–101; PULSE 82–105; RESP 18–26; TEMP 36.3–37.6; O2SAT 88–99; BMI 24.9; BMI 24.1
[2019-08-23] MEDS: Gabapentin 600 MG Tablet PO ×4 (00:09→21:10)
[2019-08-23] MEDS: Albuterol 2.5 MG/3 ML VIAL.NEB. INHALATION (00:12)
--- NOTE | 2019-08-23 00:41 | ED.RN ---
Spoke with Elinor in [place], she will call for results of CTA.
--- NOTE | 2019-08-23 01:01 | PCM.HP.STD ---
Problem List (1) Sepsis Status: Acute (2) Pneumonia Status: Acute (3) Nicotine dependence, cigarettes, uncomplicated Status: Chronic (4) Shortness of breath Status: Acute (5) Seizure disorder Status: Chronic (6) Diastolic dysfunction Status: Chronic (7) Depression Status: Chronic (8) LACEY (obstructive sleep apnea) Status: Chronic Comment: CPAP 11 cm of water (9) Lung nodule Status: Chronic (10) Sleep-related breathing disorder Status: Chronic (11) Bipolar disorder Status: Chronic Qualifiers: (12) GERD (gastroesophageal reflux disease) Status: Chronic Qualifiers: (13) COPD (chronic obstructive pulmonary disease) Status: Chronic Qualifiers: COPD type: unspecified COPD Qualified Code(s): J44.9 - Chronic obstructive pulmonary disease, unspecified (14) Encephalopathy Status: Chronic (15) Traumatic brain injury Status: Chronic (16) Spinal stenosis Status: Chronic Qualifiers: Spinal region: unspecified Qualified Code(s): M48.00 - Spinal stenosis, site unspecified (17) Tobacco abuse Status: Chronic (18) Migraine Status: Chronic Qualifiers: Migraine type: unspecified Status migrainosus presence: without status migrainosus Intractability: not intractable Qualified Code(s): G43.909 - Migraine, unspecified, not intractable, without status migrainosus History of Present Illness Date of Admission: 08/23/19 Chief Complaint: SOB The patient is a 58 year old M with a significant history of bipolar disorder; COPD; obstructive sleep apnea; pulmonary nodule; traumatic brain injury; and tobacco abuse who presented to emergency department with 3-day history of progressively worsening shortness of breath. Initially his shortness of breath was with exertion. However his shortness of breath progressed to when he is at rest. Associated with his symptoms is productive cough of greenish to yellow sputum. He has left sided chest soreness associated with cough. Patient had a low-grade fever at the emergency department. Further he had tachycardia; tachypnea; and neutrophilic leukocytosis with bandemia. Chest x-ray was remarkable for new right lung airspace disease with small right pleural effusion possible representing pneumonia. D-dimer was elevated. Follow-up CTA did not show pulmonary embolism. However the follow-up CTA showed lung nodules with spiculated appearance; possible right middle lobe infiltrate with underlying bronchiectasis; scaring and atelectasis and adjacent pleural-based masslike density with spiculations. Past Medical History Past Medical History (Chronic Problems): Chronic Problems (Last Reviewed 08/23/19 @ 02:[address] Rex Bernard MD) Nicotine dependence, cigarettes, uncomplicated (Chronic) Seizure disorder (Chronic) Diastolic dysfunction (Chronic) Depression (Chronic) LACEY (obstructive sleep apnea) (Chronic) CPAP 11 cm of water Lung nodule (Chronic) Sleep-related breathing disorder (Chronic) Bipolar disorder (Chronic) GERD (gastroesophageal reflux disease) (Chronic) COPD (chronic obstructive pulmonary disease) (Chronic) Encephalopathy (Chronic) Traumatic brain injury (Chronic) Spinal stenosis (Chronic) Tobacco abuse (Chronic) Migraine (Chronic) Medical History: Medical History (Last Reviewed 08/23/19 @ 03:[address] Rex Bernard MD) Left ankle injury (Resolved) S99.912A Bilateral tennis elbow (Resolved) M77.11, M77.12 Depression (Chronic) F32.9 LACEY (obstructive sleep apnea) (Chronic) G47.33 CPAP 11 cm of water Lung nodule (Chronic) R91.1 Sleep-related breathing disorder (Chronic) G47.30 Bipolar disorder (Chronic) F31.9 GERD (gastroesophageal reflux disease) (Chronic) K21.9 COPD (chronic obstructive pulmonary disease) (Chronic) J44.9 Encephalopathy (Chronic) G93.40 Traumatic brain injury (Chronic) S06.9X9A Spinal stenosis (Chronic) M48.00 Tobacco abuse (Chronic) Z72.0 Migraine (Chronic) G43.909 Acute respiratory failure (Resolved) J96.00 Hoarseness (Resolved) R49.0 Pneumonia (Resolved) J18.9 Sepsis (Resolved) A41.9 Allergies dextromethorphan HBr [From NyQuil] Adverse Reaction (Intermediate, Verified 08/22/19 21:50) tachycardia, feels anxious doxylamine [From NyQuil] Adverse Reaction (Intermediate, Verified 08/22/19 21:50) Tachycardia, feels anxious pseudoephedrine HCl [From NyQuil] Adverse Reaction (Intermediate, Verified 08/22/19 21:50) Tachycardia, feels anxious sertraline HCl [From Zoloft] Adverse Reaction (Verified 08/22/19 21:50) Diarrhea Home Medications: Ambulatory Orders Medication Instructions Recorded Propranolol HCl [Inderal (Beta 10 mg PO BID 07/11/17 Danielle)] albuterol sulfate 90 mcg/actuation 2 puff INHALATION Q4H PRN PRN #1 02/04/19 aerosol inhaler inhaler Amitriptyline HCl 100 mg PO QHS 06/30/19 Fluticasone/Vilanterol [Breo 1 inh INHALATION DAILY 06/30/19 Ellipta 200-25 Mcg INH] Gabapentin 600 mg PO TID 06/30/19 Multivit-Min/FA/Lycopen/Lutein 1 tab PO DAILY 06/30/19 [Centrum Silver Men Tablet] Omeprazole 40 mg PO DAILY 06/30/19 Sertraline HCl 150 mg PO QHS 06/30/19 Umeclidinium [place] [Incruse 1 puff INHALATION DAILY 06/30/19 Ellipta] Divalproex Sodium [Depakote] 750 mg PO BID #90 tablet. 07/02/19 Quetiapine Fumarate [Seroquel] 25 mg PO QHS PRN PRN #0 07/02/19 levETIRAcetam tablet [Keppra 500 mg PO BID #60 tab 07/02/19 tablet] Surgical History: Surgical History (Last Reviewed 08/23/19 @ 03:[address] Rex Bernard MD) History of hernia repair (Resolved) Z98.890, Z87.19 Surgical History: herniorrhaphy, - - Tennis elbow, Left ankle, TBI with encephalamalacia, Inguinal hernia. Psychiatric History: Bipolar Smoking Status: Current every day smoker Tobacco Use: Cigarettes - *Family History Maternal Family History: Family History (Last Reviewed 08/23/19 @ 03:[address] Rex Bernard MD) Father Dementia Alzheimers disease Diabetes Mother Diabetes History Items: Diabetes Paternal Family History: Family History (Last Reviewed 08/23/19 @ 03:[address] Rex Bernard MD) Father Dementia Alzheimers disease Diabetes Mother Diabetes History Items: Cancer, Heart Disease Review of Systems Constitutional: Denies: Chills, Fever, Weight Change HEENT: Denies: Head Aches, Sinus Congestion, Sinus Drainage Cardiovascular: Denies: Chest Pain, Palpitations Respiratory: Reports: Cough, Shortness of breath at rest, Sputum production, Wheezing Gastrointestinal: Denies: Abdominal Pain, Nausea, Vomiting Genitourinary: Denies: Dysuria Musculoskeletal: Denies: Joint Pain, Joint Tenderness Skin: Denies: Rash, Wounds Neurological: Denies: Numbness, Tingling, Focal weakness Psychiatric: Denies: Anxiety, Depression, Homicidal Ideations, Suicidal Ideations Hematologic/ Lymphatic: Denies: Easy Bruising, Easy Bleeding VTE Information - Inpt Only VTE Present on Admission: No VTE Mechan Device Prophylaxis: None VTE Pharm Prophylaxis ordered?: Yes Patient Problems: Active and Suspected Problems (Last Reviewed 08/23/19 @ 02:[address] Rex Bernard MD) Sepsis (Acute) Pneumonia (Acute) - Physical Exam Vitals/I&O's: Vital Signs Temp Pulse Resp BP Pulse Ox 99.2 F H 105 H 19 H 100/88 H 97 08/23/19 00:07 08/23/19 00:13 08/23/19 00:13 08/23/19 00:07 08/23/19 00:07 Oxygen Flow Rate (L/min) 4 Oxygen Delivery Method Nasal Cannula Weight: 74.2 kg Body Mass Index (BMI) 24.8 Finger Stick Blood Glucose 73 Intake and Output for Last 24 Hours 08/21/19 08/22/19 08/23/19 22:59 23:59 23:59 Intake Total 1051 / 1051 Balance 1051 / 1051 General: Alert, Oriented x3, Cooperative HEENT: Atraumatic, PERRLA, EOMI, Normocephalic Neck: Supple, No JVD, Negative Carotid Bruits Lungs: Diminished, Rales, Rhonchi, Short of Breath, Tachypneic, Using Accessory Muscles, Wheezes Cardiovascular: Regular Rhythm, Normal S1, Normal S2, No murmurs, Tachycardic Abdomen: Bowel Sounds Present, Soft, Non Tender Extremities: No edema, Capillary Refill Less than 3 Seconds Skin: No rashes, No breakdown Musculoskeletal: No Tenderness to Palpation of Joints or Extremities Neurological: Cranial nerves II-XII grossly intact Psych/Mental Status: Normal Affect, Appropriate Microbiology Past 72 Hours 08/22/19 22:08 Mucosa - Nose Influenza Types A,B Direct FA (PARAG) - Final Laboratory Results 08/22/19 21:34: WBC 17.1 H, RBC 4.47 L, Hgb 12.1 L, Hct 36.9 L, MCV 82.6, MCH 27.1, MCHC 32.8, RDW Std Deviation 46.1 H, RDW Coeff of Aaron 15.2 H, Plt Count 300, MPV 9.3, Immature Gran % (Auto) 1.600 H, Neut % (Auto) 82.4 H, Lymph % (Auto) 8.9 L, [place] % (Auto) 6.7, Eos % (Auto) 0.2, Baso % (Auto) 0.2, Absolute Neuts (auto) 14.1 H, Absolute Lymphs (auto) 1.53, Nucleated RBC % 0, Differential Comment SCANNED 08/22/19 21:34: D-Dimer Quant (PE/DVT) 0.80 H* 08/22/19 21:34: Sodium 132 L, Potassium 4.1, Chloride 98, Carbon Dioxide 26.0, Anion Gap 8, BUN 19 H, Creatinine 0.77, Estim Creat Clear Calc 103.64, Est GFR (MDRD) Af Amer 135, Est GFR (MDRD) Non-Af 111, BUN/Creatinine Ratio 24.8 H, Glucose 106, Calcium 8.5 08/22/19 21:34: PT 14.0, INR 1.1, APTT 34.4 08/22/19 23:15: Urine Color Yellow, Urine Clarity Sl. Cloudy, Urine pH 7.0, Ur Specific [place] 1.005, Urine Protein 30 H, Urine Glucose (UA) Normal, Urine Ketones 50 H, Urine Occult Blood Negative, Urine Nitrite Negative, Urine Bilirubin Negative, Urine Urobilinogen Normal, Ur Leukocyte Esterase Negative, Urine RBC 0 SEEN, Urine WBC 0 SEEN, Ur Squamous Epith Cells 0 SEEN, Amorphous Sediment 1+, Urine Bacteria 0 SEEN, Urine Mucus 0 SEEN 08/22/19 23:25: Lactic Acid 1.9 Current Medications Sodium Chloride () 250 mls @ 15 mls/hr IV .[id number] PRN PRN Reason: Saline Flush Last Infusion: 08/23/19 00:52 Dose: 0 mls/hr Documented by: Sodium Chloride () 250 mls @ 15 mls/hr IV .[id number] PRN PRN Reason: Additional IVPB Infusion Assessment/Plan All Active Problems (Last Reviewed 08/23/19 @ 02:[address] Rex Bernard MD) Sepsis (Acute) Pneumonia (Acute) Shortness of breath (Acute) Left ankle injury (Resolved) History of hernia repair (Resolved) Bilateral tennis elbow (Resolved) Acute respiratory failure (Resolved) Hoarseness (Resolved) Pneumonia (Resolved) Sepsis (Resolved) The patient is a 58 year old M with a significant history of bipolar disorder; COPD; obstructive sleep apnea; pulmonary nodule; traumatic brain injury; and tobacco abuse who presented to emergency department with 3-day history of progressively worsening shortness of breath; productive cough; wheezes; tachycardia; tachypnea; low-grade fever; neutrophilic leukocytosis with bandemia; CT findings of progressively worsening lung nodules and and a possible right middle lobe infiltrate; as well as adjacent pleural-based masslike density consistent with sepsis secondary to pneumonia; COPD exacerbation; and possible lung and pleural-based neoplasm. Sepsis secondary to community-acquired pneumonia Possible gram-positive or gram-negative. Lactic acid:1.9 RR : as high as 35 Heart rate: As high as 125 Blood culture ?2 is pending: Follow. Urinalysis showed proteinuria and ketones. Urine culture is pending. Chest x-ray and CT findings as above. Respiratory Gram stain and culture ordered. Antibiotics: Received ceftriaxone and azithromycin at the emergency department. Continue patient on ceftriaxone and azithromycin. Received IV fluid bolus at the emergency department. DuoNeb scheduled. Albuterol as needed Legionella antigen screen and Strep antigen ordered Mucinex ordered Acute exacerbation of COPD Received Solu-Medrol at the emergency department. Solu-Medrol continued. DuoNeb ordered. PRN albuterol. Oxygen PRN Probable lung neoplasm and pleural-based neoplasm Review of old records shows a probable worsening of lung nodules and now with possible pleural based neoplasm. Dr. Dick, Coronary Care Unit Nurse is familiar with patient. Will consult, Dr. Dick Tobacco abuse Counseled Declined nicotine patch Seizure disorder Keppra continued Bipolar Seroquel, sertraline and Depakote continued. Amitriptyline continued. History of chronic migraines/traumatic brain injury: On propanolol. Tylenol PRN ordered. DVT Prophylaxis Subcutaneous Lovenox. Inpatient E&M: 85891 Init Hosp L3
[2019-08-23] MEDS: Ipratropium/Albuterol Sulfate 3 ML AMPUL.NEB INHALATION ×4 (02:45→18:32)
[2019-08-23] MEDS: guaiFENesin 1,200 MG Tablet 1200 MG PO ×3 (03:12→21:14)
[2019-08-23] MEDS: Divalproex Sodium 250 MG Tablet 750 MG PO ×3 (03:13→21:14)
[2019-08-23] MEDS: levETIRAcetam 500 MG Tablet PO ×3 (03:14→21:14)
[2019-08-23] MEDS: 0.9% Saline Lock 10 ML Syringe IV ×4 (05:45→23:22)
[2019-08-23 06:44] LABS: Absolute Lymphocyte Count 1.28 X10^3/uL (0.83-4.51); Absolute Neutrophil Count 15.7 X10^3/uL (2.0-7.7); Basophil# 0.04 X10^3/uL; Basophil% 0.2 % (0-1); Eosinophil# 0.02 X10^3/uL; Eosinophils% 0.1 % (0-5); Hematocrit 31.4 % (40-54); Hemoglobin 10.2 g/dL (13.0-16.5); Lymphocyte # 1.28 X10^3/ul (4.0); Mean Corp Hgb Conc 32.5 g/dL (32-36); Mean Corpuscular Hgb 26.5 pg (27.0-32.0); Mean Corpuscular Volume 81.6 fL (80-94); Mean Platelet Vol. 9.3 fl (6.2-12.0); Monocyte# 1.11 X10^3/uL; Monocyte% 6.1 % (0-10); NRBC Flagged by Analyzer 0 % (0-5); Neutrophil # 15.67 X10^3/uL (2.7-7.7); Neutrophil % 85.7 % (47-70); POSITIVE MORPHOLOGY YES; Platelet Count 273 K/mm3 (150-450); RBC Distribution Width CV 15.1 % (11.6-14.6); Red Blood Count 3.85 M/mm3 (4.6-6.2); White Blood Count 18.3 K/mm3 (4.4-11.0)
[2019-08-23 06:52] LABS: Differential Indicated SCAN CRITERIA MET
[2019-08-23 07:05] LABS: Anion Gap 6 (5-15); BUN 17 mg/dL (7-18); Chloride 101 mmol/L (98-107); Creatinine, Serum 0.63 mg/dL (0.70-1.30); EST Glomerular Filtration Rate 140 mL/min (>60); Est Glom Filt Rate - Afr Amer 169 mL/min (>60); Estimated Creatinine Clearance 126.67 ml/min; Glucose 125 mg/dL (74-106); Potassium 3.8 mmol/L (3.5-5.1); Sodium Level 132 mmol/L (136-145)
[2019-08-23 07:06] LABS: Differential Comment SCANNED
[2019-08-23 07:07] LABS: Platelet Estimate ADEQUATE (ADEQ)
[2019-08-23] MEDS: Multivitamins,Ther W-Minerals Tablet 1 TABLET PO (08:14)
[2019-08-23] MEDS: Pantoprazole Sodium 40 MG Tablet PO (08:14)
[2019-08-23] MEDS: Enoxaparin 40 MG/0.4 ML Syringe SC (08:15)
[2019-08-23] MEDS: Propranolol 10 MG Tablet PO (08:15)
[2019-08-23] MEDS: Acetaminophen 325 MG Tablet 650 MG PO (08:19)
[2019-08-23 10:09] LABS: M R Staph aureus DNA By PCR Negative (Negative); Probe Check PASS; Specimen Processing Control PASS
--- NOTE | 2019-08-23 11:11 | PN_ITS ---
Patient Problems: Active and Suspected Problems (Last Reviewed 08/23/19 @ 03:[address] Rex Bernard MD) Sepsis (Acute) Pneumonia (Acute) Subjective: Pt states that he is feeling a little bit better today. Still SOB though. has pulled O2 off currently. Vitals/I&O's: Vital Signs Temp Pulse Resp BP Pulse Ox 97.6 F L 92 18 113/78 98 08/23/19 08:15 08/23/19 08:15 08/23/19 08:15 08/23/19 08:15 08/23/19 08:15 Oxygen Flow Rate (L/min) 2 Oxygen Delivery Method Nasal Cannula Weight: 72.1 kg Body Mass Index (BMI) 24.1 Finger Stick Blood Glucose 73 Intake and Output for Last 24 Hours 08/21/19 08/22/19 08/23/19 22:59 23:59 23:59 Intake Total 1521 / 1521 Output Total 175 / 175 Balance 1346 / 1346 Microbiology Past 72 Hours 08/22/19 23:15 Urine, Clean Catch Streptococcus pneumoniae Antigen (M - Final 08/22/19 23:15 Urine, Clean Catch Legionella Antigen - Final 08/22/19 22:08 Mucosa - Nose Influenza Types A,B Direct FA (PARAG) - Final Laboratory Results 08/22/19 21:34: WBC 17.1 H, RBC 4.47 L, Hgb 12.1 L, Hct 36.9 L, MCV 82.6, MCH 27.1, MCHC 32.8, RDW Std Deviation 46.1 H, RDW Coeff of Aaron 15.2 H, Plt Count 300, MPV 9.3, Immature Gran % (Auto) 1.600 H, Neut % (Auto) 82.4 H, Lymph % (Auto) 8.9 L, [place] % (Auto) 6.7, Eos % (Auto) 0.2, Baso % (Auto) 0.2, Absolute Neuts (auto) 14.1 H, Absolute Lymphs (auto) 1.53, Nucleated RBC % 0, Differential Comment SCANNED 08/22/19 21:34: D-Dimer Quant (PE/DVT) 0.80 H* 08/22/19 21:34: Sodium 132 L, Potassium 4.1, Chloride 98, Carbon Dioxide 26.0, Anion Gap 8, BUN 19 H, Creatinine 0.77, Estim Creat Clear Calc 103.64, Est GFR (MDRD) Af Amer 135, Est GFR (MDRD) Non-Af 111, BUN/Creatinine Ratio 24.8 H, Glucose 106, Calcium 8.5 08/22/19 21:34: PT 14.0, INR 1.1, APTT 34.4 08/22/19 23:15: Urine Color Yellow, Urine Clarity Sl. Cloudy, Urine pH 7.0, Ur Specific [place] 1.005, Urine Protein 30 H, Urine Glucose (UA) Normal, Urine Ketones 50 H, Urine Occult Blood Negative, Urine Nitrite Negative, Urine Bilirubin Negative, Urine Urobilinogen Normal, Ur Leukocyte Esterase Negative, Urine RBC 0 SEEN, Urine WBC 0 SEEN, Ur Squamous Epith Cells 0 SEEN, Amorphous Sediment 1+, Urine Bacteria 0 SEEN, Urine Mucus 0 SEEN 08/22/19 23:25: Lactic Acid 1.9 08/23/19 06:05: WBC 18.3 H, RBC 3.85 L, Hgb 10.2 L, Hct 31.4 L, MCV 81.6, MCH 26.5 L, MCHC 32.5, RDW Std Deviation 45.0 H, RDW Coeff of Aaron 15.1 H, Plt Count 273, MPV 9.3, Immature Gran % (Auto) 0.900, Neut % (Auto) 85.7 H, Lymph % (Auto) 7.0 L, [place] % (Auto) 6.1, Eos % (Auto) 0.1, Baso % (Auto) 0.2, Absolute Neuts (auto) 15.7 H, Absolute Lymphs (auto) 1.28, Nucleated RBC % 0, Differential Comment SCANNED, Platelet Estimate ADEQUATE 08/23/19 06:05: Sodium 132 L, Potassium 3.8, Chloride 101, Carbon Dioxide 25.0, Anion Gap 6, BUN 17, Creatinine 0.63 L, Estim Creat Clear Calc 126.67, Est GFR (MDRD) Af Amer 169, Est GFR (MDRD) Non-Af 140, BUN/Creatinine Ratio 27.0 H, Glucose 125 H, Calcium 8.0 L 08/23/19 08:12: MRSA (PCR) Negative Current Medications Acetaminophen (Tylenol) 650 mg PO Q6H PRN PRN PRN Reason: Pain Score 1-10/Temp > 100.7 F Last Admin: 08/23/19 08:19 Dose: 650 mg Documented by: Albuterol Sulfate (Ventolin Aerosols) 2.5 mg INHALATION Q2H PRN PRN PRN Reason: Shortness of Breath/Wheezing Albuterol/Ipratropium (Duoneb) 3 ml INHALATION Q4HWA.RT [facility] Last Admin: 08/23/19 11:06 Dose: 3 ml Documented by: Amitriptyline HCl (Elavil) 100 mg PO QHS [facility] Divalproex Sodium (Depakote) 750 mg PO BID [facility] Last Admin: 08/23/19 08:15 Dose: 750 mg Documented by: Enoxaparin Sodium (Lovenox) 40 mg SC DAILY [facility] Last Admin: 08/23/19 08:15 Dose: 40 mg Documented by: Gabapentin (Neurontin) 600 mg PO TID [facility] Last Admin: 08/23/19 05:45 Dose: 600 mg Documented by: Glucagon () 1 mg IM .X1 PRN PRN Reason: Hypoglycemia Guaifenesin (Mucinex) 1,200 mg PO BID [facility] Last Admin: 08/23/19 08:14 Dose: 1,200 mg Documented by: Ceftriaxone Sodium 2 gm/ (Sodium Chloride) 50 mls @ 100 mls/hr IV Q24@2200 [facility] Azithromycin 500 mg/ Dextrose 255 mls @ 250 mls/hr IV Q24@2200 [facility] Sodium Chloride () 250 mls @ 15 mls/hr IV .[id number] PRN PRN Reason: Saline Flush Sodium Chloride () 250 mls @ 15 mls/hr IV .[id number] PRN PRN Reason: Additional IVPB Infusion Dextrose (Dextrose 10%-Water) 250 mls @ 999 mls/hr IV .Q16M PRN; Protocol PRN Reason: HYPOGLYCEMIA Levetiracetam (Keppra Tablet) 500 mg PO BID [facility] Last Admin: 08/23/19 08:15 Dose: 500 mg Documented by: Melatonin (Melatonin) 3 mg PO QHS PRN PRN PRN Reason: INSOMNIA Methylprednisolone (Solu-Medrol) 40 mg IV Q8 [facility] Last Admin: 08/23/19 05:45 Dose: 40 mg Documented by: Multivitamins/Minerals (Multivitamin With Minerals (Bkc)) 1 tablet PO DAILYCM [facility] Last Admin: 08/23/19 08:14 Dose: 1 tablet Documented by: Ondansetron HCl (Zofran) 4 mg IV Q8H PRN PRN PRN Reason: NAUSEA/VOMITING Pantoprazole Sodium (Protonix) 40 mg PO DAILY [facility] Last Admin: 08/23/19 08:14 Dose: 40 mg Documented by: Propranolol HCl (Inderal) 10 mg PO BID [facility] Last Admin: 08/23/19 08:15 Dose: 10 mg Documented by: Quetiapine Fumarate (Seroquel) 25 mg PO QHS PRN PRN PRN Reason: ANXIETY Senna/Docusate Sodium (Senokot-S, Abi-Colace) 2 tablet PO BID PRN PRN PRN Reason: Constipation Sertraline HCl (Zoloft) 150 mg PO QHS [facility] Sodium Chloride () 10 - 40 ml IV UD PRN PRN Reason: SALINE FLUSH Last Admin: 08/23/19 05:45 Dose: 20 ml Documented by: STROKE Vital Signs/Narrative: Vital Signs Temp Pulse Resp BP Pulse Ox 08/23/19 08:15 97.6 F L 92 18 113/78 98 08/23/19 08:05 88 Medical Necessity - Tobacco Use Smoking Status: Current every day smoker Tobacco Use: Cigarettes Assessment/Plan All Active Problems (Last Reviewed 08/23/19 @ 03:[address] Rex Bernard MD) Sepsis (Acute) Pneumonia (Acute) Shortness of breath (Acute) Left ankle injury (Resolved) History of hernia repair (Resolved) Bilateral tennis elbow (Resolved) Acute respiratory failure (Resolved) Hoarseness (Resolved) Pneumonia (Resolved) Sepsis (Resolved) Sepsis 2/2 suspected CAP/AECOPD -HR better -desaturates on RA to 88% and now on 2 L with SpO2 98% -continue Azithromycin and CTX for now -S.pneumo/FLU swab and legionella are neg -will check viral pcr -blood and urine cx collected and pending -sputum ordered but not yet produced -continue Pulm toilet -continue steroids -continue Mucinex -CTA done for elevated D-Dimer--> neg for PE but ? RML infiltrate Spiculated Masses B R>L -has h/o known lung nodule -Pulm consulted -pt familiar to Dr. Dick Leukocytosis -did trend up but steroids given -will follow Mild Hyponatremia -may be related to lung dx -132 and stable -repeat in am Seizure d/o Continue Keppra/Gabapentin Bipolar d/o -continue Seroquel/Zoloft/Amitriptyline and Depakote H/O Migraines/TBI -prn APAP -Propranolol continued--> long-term med but ? if we should change 2/2 lung disease (will d/w Dr. Dick) Tobacco Abuse -recommend smoking cessation -pt declined nicotine patch LACEY -non-cmplainat with CPAP GERD -cont protonix \ COPD -see above DVT Prophylaxis -Lovenox Dispo -new admission after MN
--- NOTE | 2019-08-23 12:04 | CON.PCM_ITS ---
Reason for Consult Date of Consultation: 08/23/19 Reason for Consultation: COPD exacerbation History of Present Illness: The patient is a 58-year-old male, with a history as outlined below, who presented to the emergency department with complaints of worsening shortness of breath, chest tightness, wheezing and cough. I initially met the patient in December 2016 when he was admitted to the hospital with acute respiratory failure, in the setting of an intentional overdose of baclofen. The patient has a known [id number] smoking history. Pulmonary function studies were completed in September 2018 and revealed evidence of an irreversible severe large airways obstructive ventilatory defect with symmetric reduction in diffusing capacity. A 6-minute walk test was also completed at that time and revealed no need for supplemental oxygen with exertion. The patient's chest imaging studies have been followed longitudinally due to the presence of mediastinal adenopathy and pulmonary nodules. He did undergo a CT- guided lung biopsy in January 2018, which revealed evidence of lung parenchymal tissue with focal interstitial chronic inflammation, giant cells and focal areas suggestive of granulomas. A follow-up CT chest was then completed in mid April 2018 revealed new nodules within the right upper lobe and 2 nodules within the right lower lobe. There continues to be emphysematous changes bilaterally along with areas of bronchiectasis. There is also evidence of calcified mediastinal and right hilar lymph nodes. A subsequent PET scan was negative. The patient was just recently admitted to the hospital in June 2019 and treated for septic shock secondary to pneumococcal pneumonia. On presentation to the emergency department, the patient was noted to be febrile, tachycardic and tachypneic. Laboratory evaluation revealed an elevated white blood cell count to 17,000. Chemistry profile was largely unrevealing. Lactate was within normal limits. Due to an elevated d-dimer, a CTA chest was obtained which revealed evidence of mediastinal and hilar lymphadenopathy, along with multiple bilateral pulmonary nodules in the right middle lobe airspace opacity. The patient was subsequently placed on antimicrobials, bronchodilators and steroids. He was admitted to the medical surgical floor for further management. Past Medical History Past Medical History (Chronic Problems): Chronic Problems (Last Reviewed 08/23/19 @ 03:[address] Rex Bernard MD) Nicotine dependence, cigarettes, uncomplicated (Chronic) Seizure disorder (Chronic) Diastolic dysfunction (Chronic) Depression (Chronic) LACEY (obstructive sleep apnea) (Chronic) CPAP 11 cm of water Lung nodule (Chronic) Sleep-related breathing disorder (Chronic) Bipolar disorder (Chronic) GERD (gastroesophageal reflux disease) (Chronic) COPD (chronic obstructive pulmonary disease) (Chronic) Encephalopathy (Chronic) Traumatic brain injury (Chronic) Spinal stenosis (Chronic) Tobacco abuse (Chronic) Migraine (Chronic) Medical History: Medical History (Last Reviewed 08/23/19 @ 03:[address] Rex Bernard MD) Left ankle injury (Resolved) S99.912A Bilateral tennis elbow (Resolved) M77.11, M77.12 Depression (Chronic) F32.9 LACEY (obstructive sleep apnea) (Chronic) G47.33 CPAP 11 cm of water Lung nodule (Chronic) R91.1 Sleep-related breathing disorder (Chronic) G47.30 Bipolar disorder (Chronic) F31.9 GERD (gastroesophageal reflux disease) (Chronic) K21.9 COPD (chronic obstructive pulmonary disease) (Chronic) J44.9 Encephalopathy (Chronic) G93.40 Traumatic brain injury (Chronic) S06.9X9A Spinal stenosis (Chronic) M48.00 Tobacco abuse (Chronic) Z72.0 Migraine (Chronic) G43.909 Acute respiratory failure (Resolved) J96.00 Hoarseness (Resolved) R49.0 Pneumonia (Resolved) J18.9 Sepsis (Resolved) A41.9 Allergies dextromethorphan HBr [From NyQuil] Adverse Reaction (Intermediate, Verified 08/22/19 21:50) tachycardia, feels anxious doxylamine [From NyQuil] Adverse Reaction (Intermediate, Verified 08/22/19 21:50) Tachycardia, feels anxious pseudoephedrine HCl [From NyQuil] Adverse Reaction (Intermediate, Verified 08/22/19 21:50) Tachycardia, feels anxious sertraline HCl [From Zoloft] Adverse Reaction (Verified 08/22/19 21:50) Diarrhea Home Medications: Ambulatory Orders Medication Instructions Recorded Propranolol HCl [Inderal (Beta 10 mg PO BID 07/11/17 Danielle)] albuterol sulfate 90 mcg/actuation 2 puff INHALATION Q4H PRN PRN #1 02/04/19 aerosol inhaler inhaler Amitriptyline HCl 100 mg PO QHS 06/30/19 Fluticasone/Vilanterol [Breo 1 inh INHALATION DAILY 06/30/19 Ellipta 200-25 Mcg INH] Gabapentin 600 mg PO TID 06/30/19 Multivit-Min/FA/Lycopen/Lutein 1 tab PO DAILY 06/30/19 [Centrum Silver Men Tablet] Omeprazole 40 mg PO DAILY 06/30/19 Sertraline HCl 150 mg PO QHS 06/30/19 Umeclidinium [place] [Incruse 1 puff INHALATION DAILY 06/30/19 Ellipta] Divalproex Sodium [Depakote] 750 mg PO BID #90 tablet. 07/02/19 Quetiapine Fumarate [Seroquel] 25 mg PO QHS PRN PRN #0 07/02/19 levETIRAcetam tablet [Keppra 500 mg PO BID #60 tab 07/02/19 tablet] Surgical History: Surgical History (Last Reviewed 08/23/19 @ 03:[address] Rex Bernard MD) History of hernia repair (Resolved) Z98.890, Z87.19 Surgical History: herniorrhaphy, - - Tennis elbow, Left ankle, TBI with encephalamalacia, Inguinal hernia. Psychiatric History: Bipolar Smoking Status: Current every day smoker Tobacco Use: Cigarettes - *Family History Maternal Family History: Family History (Last Reviewed 08/23/19 @ 03:[address] Rex Bernard MD) Father Dementia Alzheimers disease Diabetes Mother Diabetes History Items: Diabetes Paternal Family History: Family History (Last Reviewed 08/23/19 @ 03:[address] Rex Bernard MD) Father Dementia Alzheimers disease Diabetes Mother Diabetes History Items: Cancer, Heart Disease Review of Systems Constitutional: Reports: Chills, Fever Eyes: Denies: Blurred vision, Double vision HEENT: Denies: Head Aches, Sinus Congestion, Sinus Drainage Cardiovascular: Reports: Chest Tightness Respiratory: Reports: Cough, Wheezing Gastrointestinal: Denies: Abdominal Pain, Nausea, Vomiting Genitourinary: Denies: Dysuria Musculoskeletal: Denies: Joint Pain, Joint Tenderness Skin: Denies: Rash, Wounds Neurological: Reports: Seizures Psychiatric: Denies: Anxiety, Depression, Homicidal Ideations, Suicidal Ideations Hematologic/ Lymphatic: Denies: Easy Bruising, Easy Bleeding Patient Problems: Active and Suspected Problems (Last Reviewed 08/23/19 @ 03:[address] Rex Bernard MD) Sepsis (Acute) Pneumonia (Acute) Objective: The patient's most recent lab work, culture data and imaging studies have all been personally reviewed. - Physical Exam Vitals/I&O's: Vital Signs Temp Pulse Resp BP Pulse Ox 97.6 F L 91 19 H 113/78 98 08/23/19 08:15 08/23/19 11:15 08/23/19 11:15 08/23/19 08:15 08/23/19 08:15 Oxygen Flow Rate (L/min) 2 Oxygen Delivery Method Nasal Cannula Weight: 158 lb 15.253 oz Body Mass Index (BMI) 24.1 Finger Stick Blood Glucose 73 Intake and Output for Last 24 Hours 08/21/19 08/22/19 08/23/19 22:59 23:59 23:59 Intake Total 1521 / 1521 Output Total 175 / 175 Balance 1346 / 1346 General: Alert, Cooperative, No apparent distress, - - is present at the bedside HEENT: Atraumatic, PERRLA, Normocephalic Oral: No Gingival or Mucosal Lesions/ Ulcerations Neck: Supple, No Nodes, Trachea Midline Lungs: Diminished, Wheezes Cardiovascular: Regular rate, Regular Rhythm, Normal S1, Normal S2, No murmurs Abdomen: Bowel Sounds Present, Soft, Non Tender Extremities: No clubbing, No cyanosis, No edema Skin: No breakdown Musculoskeletal: No Tenderness to Palpation of Joints or Extremities Lymphatic: No Cervical, Supraclavicular, or Inguinal Adenopathy Neurological: Neuro grossly intact Psych/Mental Status: Flat Affect Labs (Last 48 Hours) 08/22/19 08/22/19 08/22/19 21:34 21:34 21:34 WBC 17.1 H RBC 4.47 L Hgb 12.1 L Hct 36.9 L MCV 82.6 MCH 27.1 MCHC 32.8 RDW Std Deviation 46.1 H RDW Coeff of Aaron 15.2 H Plt Count 300 MPV 9.3 Immature Gran % (Auto) 1.600 H Neut % (Auto) 82.4 H Lymph % (Auto) 8.9 L [place] % (Auto) 6.7 Eos % (Auto) 0.2 Baso % (Auto) 0.2 Absolute Neuts (auto) 14.1 H Absolute Lymphs (auto) 1.53 Nucleated RBC % 0 Differential Comment SCANNED Platelet Estimate PT INR APTT D-Dimer Quant (PE/DVT) 0.80 H* Sodium 132 L Potassium 4.1 Chloride 98 Carbon Dioxide 26.0 Anion Gap 8 BUN 19 H Creatinine 0.77 Estim Creat Clear Calc 103.64 Est GFR (MDRD) Af Amer 135 Est GFR (MDRD) Non-Af 111 BUN/Creatinine Ratio 24.8 H Glucose 106 Lactic Acid Calcium 8.5 Urine Color Urine Clarity Urine pH Ur Specific [place] Urine Protein Urine Glucose (UA) Urine Ketones Urine Occult Blood Urine Nitrite Urine Bilirubin Urine Urobilinogen Ur Leukocyte Esterase Urine RBC Urine WBC Ur Squamous Epith Cells Amorphous Sediment Urine Bacteria Urine Mucus MRSA (PCR) 08/22/19 08/22/19 08/22/19 21:34 23:15 23:25 WBC RBC Hgb Hct MCV MCH MCHC RDW Std Deviation RDW Coeff of Aaron Plt Count MPV Immature Gran % (Auto) Neut % (Auto) Lymph % (Auto) [place] % (Auto) Eos % (Auto) Baso % (Auto) Absolute Neuts (auto) Absolute Lymphs (auto) Nucleated RBC % Differential Comment Platelet Estimate PT 14.0 INR 1.1 APTT 34.4 D-Dimer Quant (PE/DVT) Sodium Potassium Chloride Carbon Dioxide Anion Gap BUN Creatinine Estim Creat Clear Calc Est GFR (MDRD) Af Amer Est GFR (MDRD) Non-Af BUN/Creatinine Ratio Glucose Lactic Acid 1.9 Calcium Urine Color Yellow Urine Clarity Sl. Cloudy Urine pH 7.0 Ur Specific [place] 1.005 Urine Protein 30 H Urine Glucose (UA) Normal Urine Ketones 50 H Urine Occult Blood Negative Urine Nitrite Negative Urine Bilirubin Negative Urine Urobilinogen Normal Ur Leukocyte Esterase Negative Urine RBC 0 SEEN Urine WBC 0 SEEN Ur Squamous Epith Cells 0 SEEN Amorphous Sediment 1+ Urine Bacteria 0 SEEN Urine Mucus 0 SEEN MRSA (PCR) 08/23/19 08/23/19 08/23/19 06:05 06:05 08:12 WBC 18.3 H RBC 3.85 L Hgb 10.2 L Hct 31.4 L MCV 81.6 MCH 26.5 L MCHC 32.5 RDW Std Deviation 45.0 H RDW Coeff of Aaron 15.1 H Plt Count 273 MPV 9.3 Immature Gran % (Auto) 0.900 Neut % (Auto) 85.7 H Lymph % (Auto) 7.0 L [place] % (Auto) 6.1 Eos % (Auto) 0.1 Baso % (Auto) 0.2 Absolute Neuts (auto) 15.7 H Absolute Lymphs (auto) 1.28 Nucleated RBC % 0 Differential Comment SCANNED Platelet Estimate ADEQUATE PT INR APTT D-Dimer Quant (PE/DVT) Sodium 132 L Potassium 3.8 Chloride 101 Carbon Dioxide 25.0 Anion Gap 6 BUN 17 Creatinine 0.63 L Estim Creat Clear Calc 126.67 Est GFR (MDRD) Af Amer 169 Est GFR (MDRD) Non-Af 140 BUN/Creatinine Ratio 27.0 H Glucose 125 H Lactic Acid Calcium 8.0 L Urine Color Urine Clarity Urine pH Ur Specific [place] Urine Protein Urine Glucose (UA) Urine Ketones Urine Occult Blood Urine Nitrite Urine Bilirubin Urine Urobilinogen Ur Leukocyte Esterase Urine RBC Urine WBC Ur Squamous Epith Cells Amorphous Sediment Urine Bacteria Urine Mucus MRSA (PCR) Negative Microbiology 08/22/19 23:15 Urine, Clean Catch Streptococcus pneumoniae Antigen (M - Final 08/22/19 23:15 Urine, Clean Catch Legionella Antigen - Final 08/22/19 22:08 Mucosa - Nose Influenza Types A,B Direct FA (PARAG) - Final Clinical Impression(s) from Imaging Studies Chest X-Ray 08/22/19 22:32 IMPRESSION: Chronic interestitial changes. New right lung airspace disease with small right pleural effusion possibly representing pneumonia. at 0001 Reported and signed by: Wes Cunningham MD Electronically Signed: Wes Cunningham MD at 0:00 EDT Tel , Service support , Chest CTA 08/22/19 22:40 IMPRESSION: Negative CTA chest examination, without a demonstrated pulmonary embolism or arterial dissection. Multiple bilateral nodular opacities within the lung henry, right more than left with spiculated margins raising the concern of metastatic disease. Differential diagnosis includes diffuse pneumonitis with underlying interstitial lung disease or pulmonary fibrosis is not excluded. Mild bronchiectasis as described. Correlation with history of neoplasm recommended. Possible right middle lobe infiltrate with underlying bronchiectasis, scarring and atelectasis. Adjacent pleural-based masslike density with spiculations does not exclude neoplasm. Mediastinal and bilateral hilar lymphadenopathy. Electronically Signed: Juany Rahman MD at 0:54 EDT , Service support , Current Medications Acetaminophen (Tylenol) 650 mg PO Q6H PRN PRN PRN Reason: Pain Score 1-10/Temp > 100.7 F Last Admin: 08/23/19 08:19 Dose: 650 mg Documented by: Albuterol Sulfate (Ventolin Aerosols) 2.5 mg INHALATION Q2H PRN PRN PRN Reason: Shortness of Breath/Wheezing Albuterol/Ipratropium (Duoneb) 3 ml INHALATION Q4HWA.RT [facility] Last Admin: 08/23/19 11:06 Dose: 3 ml Documented by: Amitriptyline HCl (Elavil) 100 mg PO QHS [facility] Divalproex Sodium (Depakote) 750 mg PO BID [facility] Last Admin: 08/23/19 08:15 Dose: 750 mg Documented by: Enoxaparin Sodium (Lovenox) 40 mg SC DAILY [facility] Last Admin: 08/23/19 08:15 Dose: 40 mg Documented by: Gabapentin (Neurontin) 600 mg PO TID [facility] Last Admin: 08/23/19 12:00 Dose: 600 mg Documented by: Glucagon () 1 mg IM .X1 PRN PRN Reason: Hypoglycemia Guaifenesin (Mucinex) 1,200 mg PO BID [facility] Last Admin: 08/23/19 08:14 Dose: 1,200 mg Documented by: Ceftriaxone Sodium 2 gm/ (Sodium Chloride) 50 mls @ 100 mls/hr IV Q24@2200 [facility] Azithromycin 500 mg/ Dextrose 255 mls @ 250 mls/hr IV Q24@2200 [facility] Sodium Chloride () 250 mls @ 15 mls/hr IV .[id number] PRN PRN Reason: Saline Flush Sodium Chloride () 250 mls @ 15 mls/hr IV .[id number] PRN PRN Reason: Additional IVPB Infusion Dextrose (Dextrose 10%-Water) 250 mls @ 999 mls/hr IV .Q16M PRN; Protocol PRN Reason: HYPOGLYCEMIA Levetiracetam (Keppra Tablet) 500 mg PO BID [facility] Last Admin: 08/23/19 08:15 Dose: 500 mg Documented by: Melatonin (Melatonin) 3 mg PO QHS PRN PRN PRN Reason: INSOMNIA Methylprednisolone (Solu-Medrol) 40 mg IV Q8 [facility] Last Admin: 08/23/19 05:45 Dose: 40 mg Documented by: Multivitamins/Minerals (Multivitamin With Minerals (Bkc)) 1 tablet PO DAILYCM [facility] Last Admin: 08/23/19 08:14 Dose: 1 tablet Documented by: Ondansetron HCl (Zofran) 4 mg IV Q8H PRN PRN PRN Reason: NAUSEA/VOMITING Pantoprazole Sodium (Protonix) 40 mg PO DAILY [facility] Last Admin: 08/23/19 08:14 Dose: 40 mg Documented by: Quetiapine Fumarate (Seroquel) 25 mg PO QHS PRN PRN PRN Reason: ANXIETY Senna/Docusate Sodium (Senokot-S, Abi-Colace) 2 tablet PO BID PRN PRN PRN Reason: Constipation Sertraline HCl (Zoloft) 150 mg PO QHS [facility] Sodium Chloride () 10 - 40 ml IV UD PRN PRN Reason: SALINE FLUSH Last Admin: 08/23/19 05:45 Dose: 20 ml Documented by: Assessment/Plan All Active Problems (Last Reviewed 08/23/19 @ 03:[address] Rex Bernard MD) Sepsis (Acute) Pneumonia (Acute) Shortness of breath (Acute) Left ankle injury (Resolved) History of hernia repair (Resolved) Bilateral tennis elbow (Resolved) Acute respiratory failure (Resolved) Hoarseness (Resolved) Pneumonia (Resolved) Sepsis (Resolved) RECOMMENDATIONS: 1. Continue antibiotics, bronchodilators and steroids. 2. Encourage incentive spirometer use and mobilize patient as tolerated. 3. Perform walking oximetry study prior to consideration for discharge home. 4. Outpatient pulmonary follow-up within 2 weeks of his discharge from the hospital is warranted. 5. I would recommend that a repeat CT chest be completed in 6 to 8 weeks. IMPRESSIONS: 1. COPD with exacerbation secondary to probable CAP Agree with continuing antibiotics, bronchodilators and steroids. The patient has been weaned back to room air as of this morning. Infectious work-up is currently pending. Given the findings noted on the patient's CTA chest, I would recommend that a repeat CT be completed 6 to 8 weeks after he has completed treatment for this pneumonia. The patient remains hemodynamically stable. 2. Continuous tobacco dependency I personally spent 5 minutes once again discussing the deleterious effects of continued tobacco use with the patient, including modalities which could be utilized to achieve a smoke-free lifestyle. The patient is in agreement to utilize nicotine replacement therapy for now. Orders have been placed accordingly. 3. History of pulmonary nodules/mediastinal/hilar adenopathy The patient has been followed longitudinally due to the presence of bilateral pulmonary nodules. The findings noted on his CTA chest may represent progression of the previously noted process versus reaction to underlying infection. Accordingly, I would recommend that a repeat CT chest be completed in 6 to 8 weeks. Additional work-up may be indicated at that time, depending on the results of the chest imaging study. 4. Unspecified seizure disorder/LACEY, noncompliant with nocturnal Pap/GERD Complicates care, management, recovery and prognosis. Continue home medications as indicated. This note was generated with [employer] dictation software. It may contain incorrect words, spelling, and punctuation that were not noted in checking the note before signing. Inpatient E&M: 34615 Init Hosp L3 - Behavior Interventions Behavior Intervention: 55057 Smoking Cessation 3-10 min
--- NOTE | 2019-08-23 13:32 | CASEMGMT ---
RN CM Assessment Note Presentation: Sepsis, Pneumonia Intro role of CM and purpose of RN CM assessment to patient and his in room. Pt is awake, alert, able to participate in assessment, but defers to for most answers.. Demographics, PCP and Pharmacy verified. Per , Pt is independent at home. Does not use DME and states no concerns re:dc. PCP: Dr. Nixon Specialists: Dr. Dick, Pulmonology; Dr. Gillespie, neurology Preferred Pharmacy: [facility] Insurance: [facility] Prescription Benefit: yes LNOK : , Heike Randall Living Arrangements: Lives independently with . No care needs identified. Transportation: drives DME: none used at home. HHC/SNF: states none. Patient DC goals: Home DC PLAN: Home. RN CM let pt/ know to contact cm for any concerns/needs that may arise. Dianelys OSEIN RN ACM
[2019-08-23] MEDS: Amitriptyline 100 MG Tablet PO (21:10)
[2019-08-23] MEDS: Sertraline 50 MG Tablet 150 MG PO (21:11)
[2019-08-24] VITALS (13 sets, daily range): BP systolic 109–132; BP diastolic 65–90; PULSE 73–90; RESP 15–19; TEMP 36.3–36.8; O2SAT 86–96
[2019-08-24] MEDS: Gabapentin 600 MG Tablet PO ×2 (06:27→14:19)
[2019-08-24] MEDS: 0.9% Saline Lock 10 ML Syringe IV ×2 (06:27→14:19)
[2019-08-24] MEDS: Ipratropium/Albuterol Sulfate 3 ML AMPUL.NEB INHALATION ×3 (06:45→15:35)
[2019-08-24] MEDS: Multivitamins,Ther W-Minerals Tablet 1 TABLET PO (08:30)
[2019-08-24] MEDS: guaiFENesin 1,200 MG Tablet 1200 MG PO (08:30)
[2019-08-24] MEDS: Pantoprazole Sodium 40 MG Tablet PO (08:31)
[2019-08-24] MEDS: Divalproex Sodium 250 MG Tablet 750 MG PO (08:31)
[2019-08-24] MEDS: levETIRAcetam 500 MG Tablet PO (08:32)
[2019-08-24] MEDS: Enoxaparin 40 MG/0.4 ML Syringe SC (08:32)
--- NOTE | 2019-08-24 11:06 | PCM.PN.PUL ---
Patient Problems: Active and Suspected Problems (Last Reviewed 08/23/19 @ 03:[address] Rex Bernard MD) Sepsis (Acute) Pneumonia (Acute) Subjective: The patient was seen and examined at the bedside this morning. Events from the last 24 hours have been reviewed. The patient is currently afebrile, hemodynamically stable and maintaining appropriate oxygen saturations on room air. The patient reports improvement in his shortness of breath. He feels that his breathing quality has returned back to baseline. Objective: The patient's most recent lab work, culture data and imaging studies have all been personally reviewed. Respiratory viral panel along with strep and urine Legionella antigens were negative. Sputum, blood and urine cultures are pending. - Physical Exam Vitals/I&O's: Vital Signs Temp Pulse Resp BP Pulse Ox 97.3 F L 88 18 125/85 H 96 08/24/19 09:19 08/24/19 10:53 08/24/19 10:53 08/24/19 09:19 08/24/19 10:57 Oxygen Flow Rate (L/min) 2 Oxygen Delivery Method Nasal Cannula Weight: 158 lb 15.253 oz Body Mass Index (BMI) 24.1 Finger Stick Blood Glucose 73 Intake and Output for Last 24 Hours 08/22/19 08/23/19 08/24/19 23:59 23:59 23:59 Intake Total 3020.00 / 3020.00 250 / 250 Output Total 175 / 175 Balance 2845.00 / 2845.00 250 / 250 General: Alert, Cooperative, No apparent distress HEENT: Atraumatic, PERRLA, Normocephalic Oral: No Gingival or Mucosal Lesions/ Ulcerations Neck: Supple, No Nodes, Trachea Midline Lungs: No rhonchi, No wheeze, No rales, Diminished Cardiovascular: Regular rate, Regular Rhythm, Normal S1, Normal S2 Abdomen: Bowel Sounds Present, Soft, Non Tender Extremities: No clubbing, No cyanosis, No edema Skin: No breakdown Musculoskeletal: No Tenderness to Palpation of Joints or Extremities, No Muscle Wasting Lymphatic: No Cervical, Supraclavicular, or Inguinal Adenopathy Neurological: Cranial nerves II-XII grossly intact, Neuro grossly intact Psych/Mental Status: Flat Affect Labs (Last 48 Hours) 08/22/19 08/22/19 08/22/19 21:34 21:34 21:34 WBC 17.1 H RBC 4.47 L Hgb 12.1 L Hct 36.9 L MCV 82.6 MCH 27.1 MCHC 32.8 RDW Std Deviation 46.1 H RDW Coeff of Aaron 15.2 H Plt Count 300 MPV 9.3 Immature Gran % (Auto) 1.600 H Neut % (Auto) 82.4 H Lymph % (Auto) 8.9 L [place] % (Auto) 6.7 Eos % (Auto) 0.2 Baso % (Auto) 0.2 Absolute Neuts (auto) 14.1 H Absolute Lymphs (auto) 1.53 Nucleated RBC % 0 Differential Comment SCANNED Platelet Estimate PT INR APTT D-Dimer Quant (PE/DVT) 0.80 H* Sodium 132 L Potassium 4.1 Chloride 98 Carbon Dioxide 26.0 Anion Gap 8 BUN 19 H Creatinine 0.77 Estim Creat Clear Calc 103.64 Est GFR (MDRD) Af Amer 135 Est GFR (MDRD) Non-Af 111 BUN/Creatinine Ratio 24.8 H Glucose 106 Lactic Acid Calcium 8.5 Urine Color Urine Clarity Urine pH Ur Specific [place] Urine Protein Urine Glucose (UA) Urine Ketones Urine Occult Blood Urine Nitrite Urine Bilirubin Urine Urobilinogen Ur Leukocyte Esterase Urine RBC Urine WBC Ur Squamous Epith Cells Amorphous Sediment Urine Bacteria Urine Mucus MRSA (PCR) 08/22/19 08/22/19 08/22/19 21:34 23:15 23:25 WBC RBC Hgb Hct MCV MCH MCHC RDW Std Deviation RDW Coeff of Aaron Plt Count MPV Immature Gran % (Auto) Neut % (Auto) Lymph % (Auto) [place] % (Auto) Eos % (Auto) Baso % (Auto) Absolute Neuts (auto) Absolute Lymphs (auto) Nucleated RBC % Differential Comment Platelet Estimate PT 14.0 INR 1.1 APTT 34.4 D-Dimer Quant (PE/DVT) Sodium Potassium Chloride Carbon Dioxide Anion Gap BUN Creatinine Estim Creat Clear Calc Est GFR (MDRD) Af Amer Est GFR (MDRD) Non-Af BUN/Creatinine Ratio Glucose Lactic Acid 1.9 Calcium Urine Color Yellow Urine Clarity Sl. Cloudy Urine pH 7.0 Ur Specific [place] 1.005 Urine Protein 30 H Urine Glucose (UA) Normal Urine Ketones 50 H Urine Occult Blood Negative Urine Nitrite Negative Urine Bilirubin Negative Urine Urobilinogen Normal Ur Leukocyte Esterase Negative Urine RBC 0 SEEN Urine WBC 0 SEEN Ur Squamous Epith Cells 0 SEEN Amorphous Sediment 1+ Urine Bacteria 0 SEEN Urine Mucus 0 SEEN MRSA (PCR) 08/23/19 08/23/19 08/23/19 06:05 06:05 08:12 WBC 18.3 H RBC 3.85 L Hgb 10.2 L Hct 31.4 L MCV 81.6 MCH 26.5 L MCHC 32.5 RDW Std Deviation 45.0 H RDW Coeff of Aaron 15.1 H Plt Count 273 MPV 9.3 Immature Gran % (Auto) 0.900 Neut % (Auto) 85.7 H Lymph % (Auto) 7.0 L [place] % (Auto) 6.1 Eos % (Auto) 0.1 Baso % (Auto) 0.2 Absolute Neuts (auto) 15.7 H Absolute Lymphs (auto) 1.28 Nucleated RBC % 0 Differential Comment SCANNED Platelet Estimate ADEQUATE PT INR APTT D-Dimer Quant (PE/DVT) Sodium 132 L Potassium 3.8 Chloride 101 Carbon Dioxide 25.0 Anion Gap 6 BUN 17 Creatinine 0.63 L Estim Creat Clear Calc 126.67 Est GFR (MDRD) Af Amer 169 Est GFR (MDRD) Non-Af 140 BUN/Creatinine Ratio 27.0 H Glucose 125 H Lactic Acid Calcium 8.0 L Urine Color Urine Clarity Urine pH Ur Specific [place] Urine Protein Urine Glucose (UA) Urine Ketones Urine Occult Blood Urine Nitrite Urine Bilirubin Urine Urobilinogen Ur Leukocyte Esterase Urine RBC Urine WBC Ur Squamous Epith Cells Amorphous Sediment Urine Bacteria Urine Mucus MRSA (PCR) Negative Microbiology 08/22/19 23:15 Urine, Clean Catch Urine Culture - Final Mixed Gram Positive Organisms 08/23/19 22:50 Sputum, Expectorated/Coughed Gram Stain - Final 08/23/19 14:20 Mucosa - Nasopharyngeal Respiratory Panel (PCR) - Final 08/22/19 23:15 Urine, Clean Catch Streptococcus pneumoniae Antigen (M - Final 08/22/19 23:15 Urine, Clean Catch Legionella Antigen - Final 08/22/19 22:08 Mucosa - Nose Influenza Types A,B Direct FA (PARAG) - Final Clinical Impression(s) from Imaging Studies Chest X-Ray 08/22/19 22:32 IMPRESSION: Chronic interestitial changes. New right lung airspace disease with small right pleural effusion possibly representing pneumonia. at 0001 Reported and signed by: Wes Cunningham MD Electronically Signed: Wes Cunningham MD at 0:00 EDT Tel , Service support , Chest CTA 08/22/19 22:40 IMPRESSION: Negative CTA chest examination, without a demonstrated pulmonary embolism or arterial dissection. Multiple bilateral nodular opacities within the lung henry, right more than left with spiculated margins raising the concern of metastatic disease. Differential diagnosis includes diffuse pneumonitis with underlying interstitial lung disease or pulmonary fibrosis is not excluded. Mild bronchiectasis as described. Correlation with history of neoplasm recommended. Possible right middle lobe infiltrate with underlying bronchiectasis, scarring and atelectasis. Adjacent pleural-based masslike density with spiculations does not exclude neoplasm. Mediastinal and bilateral hilar lymphadenopathy. Electronically Signed: Juany Rahman MD at 0:54 EDT , Service support , Current Medications Acetaminophen (Tylenol) 650 mg PO Q6H PRN PRN PRN Reason: Pain Score 1-10/Temp > 100.7 F Last Admin: 08/23/19 08:19 Dose: 650 mg Documented by: Albuterol Sulfate (Ventolin Aerosols) 2.5 mg INHALATION Q2H PRN PRN PRN Reason: Shortness of Breath/Wheezing Albuterol/Ipratropium (Duoneb) 3 ml INHALATION Q4HWA.RT [facility] Last Admin: 08/24/19 10:53 Dose: 3 ml Documented by: Amitriptyline HCl (Elavil) 100 mg PO QHS [facility] Last Admin: 08/23/19 21:10 Dose: 100 mg Documented by: Divalproex Sodium (Depakote) 750 mg PO BID [facility] Last Admin: 08/24/19 08:31 Dose: 750 mg Documented by: Enoxaparin Sodium (Lovenox) 40 mg SC DAILY [facility] Last Admin: 08/24/19 08:32 Dose: 40 mg Documented by: Gabapentin (Neurontin) 600 mg PO TID [facility] Last Admin: 08/24/19 06:27 Dose: 600 mg Documented by: Glucagon () 1 mg IM .X1 PRN PRN Reason: Hypoglycemia Guaifenesin (Mucinex) 1,200 mg PO BID [facility] Last Admin: 08/24/19 08:30 Dose: 1,200 mg Documented by: Ceftriaxone Sodium 2 gm/ (Sodium Chloride) 50 mls @ 100 mls/hr IV Q24@2200 [facility] Last Infusion: 08/23/19 21:40 Dose: Infused Documented by: Azithromycin 500 mg/ Dextrose 255 mls @ 250 mls/hr IV Q24@2200 [facility] Last Infusion: 08/23/19 23:15 Dose: Infused Documented by: Sodium Chloride () 250 mls @ 15 mls/hr IV .[id number] PRN PRN Reason: Saline Flush Last Infusion: 08/23/19 23:30 Dose: 0 mls/hr Documented by: Sodium Chloride () 250 mls @ 15 mls/hr IV .[id number] PRN PRN Reason: Additional IVPB Infusion Dextrose (Dextrose 10%-Water) 250 mls @ 999 mls/hr IV .Q16M PRN; Protocol PRN Reason: HYPOGLYCEMIA Levetiracetam (Keppra Tablet) 500 mg PO BID [facility] Last Admin: 08/24/19 08:32 Dose: 500 mg Documented by: Melatonin (Melatonin) 3 mg PO QHS PRN PRN PRN Reason: INSOMNIA Methylprednisolone (Solu-Medrol) 40 mg IV Q8 [facility] Last Admin: 08/24/19 06:27 Dose: 40 mg Documented by: Multivitamins/Minerals ([facility] ([facility])) [facility] Last Admin: 08/24/19 08:30 Dose: 1 tablet Documented by: Nicotine (Nicoderm Cq (Pbkc)) 14 mg TRANSDERM. DAILY [facility] Last Admin: 08/24/19 08:30 Dose: 14 mg Documented by: Ondansetron HCl (Zofran) 4 mg IV Q8H PRN PRN PRN Reason: NAUSEA/VOMITING Pantoprazole Sodium (Protonix) 40 mg PO DAILY [facility] Last Admin: 08/24/19 08:31 Dose: 40 mg Documented by: Quetiapine Fumarate (Seroquel) 25 mg PO QHS PRN PRN PRN Reason: ANXIETY Senna/Docusate Sodium (Senokot-S, Abi-Colace) 2 tablet PO BID PRN PRN PRN Reason: Constipation Sertraline HCl (Zoloft) 150 mg PO QHS [facility] Last Admin: 08/23/19 21:11 Dose: 150 mg Documented by: Sodium Chloride () 10 - 40 ml IV UD PRN PRN Reason: SALINE FLUSH Last Admin: 08/24/19 06:27 Dose: 10 ml Documented by: Medical Necessity - Tobacco Use Smoking Status: Current every day smoker Tobacco Use: Cigarettes Assessment/Plan All Active Problems (Last Reviewed 08/23/19 @ 03:[address] Rex Bernard MD) Sepsis (Acute) Pneumonia (Acute) Shortness of breath (Acute) Left ankle injury (Resolved) History of hernia repair (Resolved) Bilateral tennis elbow (Resolved) Acute respiratory failure (Resolved) Hoarseness (Resolved) Pneumonia (Resolved) Sepsis (Resolved) RECOMMENDATIONS: 1. Continue antibiotics, bronchodilators and steroids. The patient can likely be transitioned to Levaquin, with plans to complete a 7-day treatment course. 2. At discharge, recommend sending patient with a prednisone taper. 3. Perform walking oximetry study prior to consideration for discharge home. 4. Outpatient pulmonary follow-up within 2 weeks of his discharge from the hospital is warranted. 5. I would recommend that a repeat CT chest be completed in 6 to 8 weeks. IMPRESSIONS: 1. COPD with exacerbation secondary to probable CAP Agree with continuing antibiotics, bronchodilators and steroids. The patient has been weaned back to room air as of this morning. Infectious work-up is currently pending. Given the findings noted on the patient's CTA chest, I would recommend that a repeat CT be completed 6 to 8 weeks after he has completed treatment for this pneumonia. The patient remains hemodynamically stable. At this time, the patient can be transitioned to Levaquin with plans to complete a 7-day treatment course in total. At discharge, recommend that he be sent home with a prednisone taper with instructions to follow-up in the pulmonary medicine clinic in 2 weeks. 2. Continuous tobacco dependency Tobacco cessation counseling was provided. Continue nicotine replacement therapy. 3. History of pulmonary nodules/mediastinal/hilar adenopathy The patient has been followed longitudinally due to the presence of bilateral pulmonary nodules. The findings noted on his CTA chest may represent progression of the previously noted process versus reaction to underlying infection. Accordingly, I would recommend that a repeat CT chest be completed in 6 to 8 weeks. Additional work-up may be indicated at that time, depending on the results of the chest imaging study. 4. Unspecified seizure disorder/LACEY, noncompliant with nocturnal Pap/GERD Complicates care, management, recovery and prognosis. Continue home medications as indicated. This note was generated with [employer] dictation software. It may contain incorrect words, spelling, and punctuation that were not noted in checking the note before signing. Inpatient E&M: 77763 Subs Hosp L2
--- NOTE | 2019-08-24 15:32 | CASEMGMT ---
JULIETTE SHARP updated that patient will require home oxygen at discharge. JULIETTE SHARP provided patient with list of DME companies and patient would like [employer]. JULIETTE SHARP received script and referral sent to [facility] [place] JULIETTE SHARP arranged for oxygen to be deliver to patient's room prior to discharge.
--- NOTE | 2019-08-24 16:40 | PCM.DC.SUM ---
Discharge Date and Diagnosis - Problem List Patient Problems: Active and Suspected Problems (Last Reviewed 08/23/19 @ 03:[address] Rex Bernard MD) Sepsis (Acute) Pneumonia (Acute) Date of Admission: 08/23/19 - Primary Discharge Diagnosis Active and Suspected Problems (Last Reviewed 08/23/19 @ 03:[address] Rex Bernard MD) Sepsis (Acute) Pneumonia (Acute) - Secondary Discharge Diagnosis Chronic Problems (Last Reviewed 08/23/19 @ 03:[address] Rex Bernard MD) Nicotine dependence, cigarettes, uncomplicated (Chronic) Seizure disorder (Chronic) Diastolic dysfunction (Chronic) Depression (Chronic) LACEY (obstructive sleep apnea) (Chronic) CPAP 11 cm of water Lung nodule (Chronic) Sleep-related breathing disorder (Chronic) Bipolar disorder (Chronic) GERD (gastroesophageal reflux disease) (Chronic) COPD (chronic obstructive pulmonary disease) (Chronic) Encephalopathy (Chronic) Traumatic brain injury (Chronic) Spinal stenosis (Chronic) Tobacco abuse (Chronic) Migraine (Chronic) Hospital Course and Treatment Imaging Results: CTA CHEST Pulm Operations: None Procedures: None Summary of Care Provided: Mr Randall is a 58 year old M with a h/o COPD and persistent tobacco abuse presented to the ED on 08/23/2019 with a 3 day h/o worsening SOB which was usually with exertion but progressed to SOB with rest. He had a cough that was productive of greenish/yellow sputum and he c/o L sided CP with coughing. Ht was tachycardic, had tachypnea and a neutrophilic leukocytosis with bandemia. CT chest was ultimately done and was neg for PE but did shoe multiple nodules with spiculated appearance. He was placed on IV ABX steroids, Pulm toilet. Dr. Dick was consulted. Today he is much better and sats at rest are fine on RA but the pt desaturates to 88% with ambulation. He was converted to PO Levaquin x 5 more days. A prednisone taper was initiated and he is to f/u with Dr. Dick in 1-2 weeks. [] Sepsis 2/2 suspected CAP/AECOPD -desaturates on RA to 88% will dc with Home O2 -continue abx course with Levoquin for 5 more days -pred taper -continue nebs at home PRN -appreciate pulm input Spiculated Masses B R>L -has h/o known lung nodule -Pulm consulted -pt familiar to Dr. Dick--> PET as outpt Leukocytosis -did trend up but steroids given -will follow Mild Hyponatremia -stable Seizure d/o Continue Keppra/Gabapentin Bipolar d/o -continue Seroquel/Zoloft/Amitriptyline and Depakote H/O Migraines/TBI -prn APAP -Propranolol continued--> manager terminal med but ? if we should change 2/2 lung disease (will d/w Dr. Dick) Tobacco Abuse -recommend smoking cessation -pt declined nicotine patch LACEY -non-compliant with CPAP GERD -cont protonix COPD -see above DVT Prophylaxis -Lovenox Patient Problems: Active and Suspected Problems (Last Reviewed 08/23/19 @ 03:[address] Rex Bernard MD) Sepsis (Acute) Pneumonia (Acute) Subjective: Pt sitting up in a chair. at bedside. Pt anxious to go home and states that he is feeling much better. - Physical Exam Vitals/I&O's: Vital Signs Temp Pulse Resp BP Pulse Ox 97.6 F L 86 18 110/69 91 08/24/19 14:15 08/24/19 15:36 08/24/19 15:36 08/24/19 14:15 08/24/19 15:22 Oxygen Flow Rate (L/min) [ 3 AMBULATION with Oxygen] Oxygen Flow Rate (L/min) 2 Oxygen Delivery Method Room Air Weight: 72.1 kg Body Mass Index (BMI) 24.1 Finger Stick Blood Glucose 73 Intake and Output for Last 24 Hours 08/22/19 08/23/19 08/24/19 23:59 23:59 23:59 Intake Total 3020.00 / 3020.00 650 / 650 Output Total 175 / 175 Balance 2845.00 / 2845.00 650 / 650 General: Alert, Oriented x3, Cooperative, No apparent distress, Well developed, Well nourished HEENT: Atraumatic, PERRLA, EOMI, Normocephalic, EAC Clear Oral: Moist Mucosa, No Gingival or Mucosal Lesions/ Ulcerations, - - no thrush Neck: Supple, No Nodes, No Nuchal Rigidity, Trachea Midline, Thyroid Normal Size and Texture Lungs: No rhonchi, No wheeze, No rales, Diminished - severely Cardiovascular: Regular rate, Regular Rhythm, Normal S1, Normal S2, No murmurs, No Ectopic Activity, No rub noted, No Gallop Abdomen: Bowel Sounds Present, Soft, Non Tender, Non-Distended, No Hepato-splenomegaly, Passing Flatus, No hernias noted Extremities: No clubbing, No cyanosis, No edema, Capillary Refill Less than 3 Seconds Skin: No rashes, No breakdown Musculoskeletal: No Tenderness to Palpation of Joints or Extremities Lymphatic: No Cervical, Supraclavicular, or Inguinal Adenopathy Neurological: Cranial nerves II-XII grossly intact, Deep Tendon Reflexes 2+/4 and Symmetrical, Neuro grossly intact, Motor Exam 5/5 strength throughout Psych/Mental Status: Appropriate, Flat Affect, - - bit slow to respond to questions Microbiology Past 72 Hours 08/22/19 23:15 Urine, Clean Catch Urine Culture - Final Mixed Gram Positive Organisms 08/23/19 22:50 Sputum, Expectorated/Coughed Gram Stain - Final 08/23/19 14:20 Mucosa - Nasopharyngeal Respiratory Panel (PCR) - Final 08/22/19 23:15 Urine, Clean Catch Streptococcus pneumoniae Antigen (M - Final 08/22/19 23:15 Urine, Clean Catch Legionella Antigen - Final 08/22/19 22:08 Mucosa - Nose Influenza Types A,B Direct FA (PARAG) - Final Current Medications Acetaminophen (Tylenol) 650 mg PO Q6H PRN PRN PRN Reason: Pain Score 1-10/Temp > 100.7 F Last Admin: 08/23/19 08:19 Dose: 650 mg Documented by: Albuterol Sulfate (Ventolin Aerosols) 2.5 mg INHALATION Q2H PRN PRN PRN Reason: Shortness of Breath/Wheezing Albuterol/Ipratropium (Duoneb) 3 ml INHALATION Q4HWA.RT [facility] Last Admin: 08/24/19 15:35 Dose: 3 ml Documented by: Amitriptyline HCl (Elavil) 100 mg PO QHS [facility] Last Admin: 08/23/19 21:10 Dose: 100 mg Documented by: Divalproex Sodium (Depakote) 750 mg PO BID [facility] Last Admin: 08/24/19 08:31 Dose: 750 mg Documented by: Enoxaparin Sodium (Lovenox) 40 mg SC DAILY [facility] Last Admin: 03/10/20 08:32 Dose: 40 mg Documented by: Gabapentin (Neurontin) 600 mg PO TID [facility] Last Admin: 08/24/19 14:19 Dose: 600 mg Documented by: Glucagon () 1 mg IM .X1 PRN PRN Reason: Hypoglycemia Guaifenesin (Mucinex) 1,200 mg PO BID [facility] Last Admin: 08/24/19 08:30 Dose: 1,200 mg Documented by: Ceftriaxone Sodium 2 gm/ (Sodium Chloride) 50 mls @ 100 mls/hr IV Q24@2200 [facility] Last Infusion: 08/23/19 21:40 Dose: Infused Documented by: Azithromycin 500 mg/ Dextrose 255 mls @ 250 mls/hr IV Q24@2200 [facility] Last Infusion: 08/23/19 23:15 Dose: Infused Documented by: Sodium Chloride () 250 mls @ 15 mls/hr IV .[id number] PRN PRN Reason: Saline Flush Last Infusion: 08/23/19 23:30 Dose: 0 mls/hr Documented by: Sodium Chloride () 250 mls @ 15 mls/hr IV .[id number] PRN PRN Reason: Additional IVPB Infusion Dextrose (Dextrose 10%-Water) 250 mls @ 999 mls/hr IV .Q16M PRN; Protocol PRN Reason: HYPOGLYCEMIA Levetiracetam (Keppra Tablet) 500 mg PO BID [facility] Last Admin: 08/24/19 08:32 Dose: 500 mg Documented by: Melatonin (Melatonin) 3 mg PO QHS PRN PRN PRN Reason: INSOMNIA Methylprednisolone (Solu-Medrol) 40 mg IV Q8 [facility] Last Admin: 08/24/19 14:19 Dose: 40 mg Documented by: Multivitamins/Minerals (Multivitamin With Minerals (Bkc)) [facility] Last Admin: 08/24/19 08:30 Dose: 1 tablet Documented by: Nicotine (Nicoderm Cq (Pbkc)) 14 mg TRANSDERM. DAILY [facility] Last Admin: 08/24/19 08:30 Dose: 14 mg Documented by: Ondansetron HCl (Zofran) 4 mg IV Q8H PRN PRN PRN Reason: NAUSEA/VOMITING Pantoprazole Sodium (Protonix) 40 mg PO DAILY [facility] Last Admin: 08/24/19 08:31 Dose: 40 mg Documented by: Quetiapine Fumarate (Seroquel) 25 mg PO QHS PRN PRN PRN Reason: ANXIETY Senna/Docusate Sodium (Senokot-S, Abi-Colace) 2 tablet PO BID PRN PRN PRN Reason: Constipation Sertraline HCl (Zoloft) 150 mg PO QHS [facility] Last Admin: 08/23/19 21:11 Dose: 150 mg Documented by: Sodium Chloride () 10 - 40 ml IV UD PRN PRN Reason: SALINE FLUSH Last Admin: 08/24/19 14:19 Dose: 10 ml Documented by: Home Medications: Medications to take at Discharge Propranolol HCl [Inderal (Beta Danielle)] 10 mg PO BID 07/11/17 albuterol sulfate 90 mcg/actuation aerosol inhaler 2 puff INHALATION Q4H PRN PRN #1 inhaler 02/04/19 Amitriptyline HCl 100 mg PO QHS 06/30/19 Fluticasone/Vilanterol [Breo Ellipta 200-25 Mcg INH] 1 inh INHALATION DAILY 06/30/19 Gabapentin 600 mg PO TID 06/30/19 Multivit-Min/FA/Lycopen/Lutein [Centrum Silver Men Tablet] 1 tab PO DAILY 06/30/19 Omeprazole 40 mg PO DAILY 06/30/19 Sertraline HCl 150 mg PO QHS 06/30/19 Umeclidinium [place] [Incruse Ellipta] 1 puff INHALATION DAILY 06/30/19 Divalproex Sodium [Depakote] 750 mg PO BID #90 tablet. 07/02/19 Quetiapine Fumarate [Seroquel] 25 mg PO QHS PRN PRN #0 07/02/19 Guaifenesin [Mucinex] 1,200 mg PO BID tablet 08/24/19 Prednisone 10 mg PO DAILY 12 Days #30 tab 08/24/19 levETIRAcetam tablet [Keppra tablet] 500 mg PO BID #60 tab 08/24/19 levoFLOXacin tablet [Levaquin tablet] 750 mg PO DAILY 5 Days #5 tab 08/24/19 Following Prescrptions Were Given to Patient: levETIRAcetam tablet [Keppra tablet] 500 mg PO BID #60 tab levoFLOXacin tablet [Levaquin tablet] 750 mg PO DAILY 5 Days #5 tab Transmission Status: Pending to [facility] [place] Prednisone 10 mg PO DAILY 12 Days #30 tab Transmission Status: Pending to [facility] [place] Primary Care Physician: Priscilla Nixon MD [Primary Care Provider] - Medical Necessity - Tobacco Use Smoking Status: Current every day smoker Tobacco Use: Cigarettes Meaningful Use Info Meaningful Use Diagnoses (Choose all that apply): None applicable Inpatient E&M: 13061 [facility]
--- NOTE | 2019-08-24 16:55 | DCINST_ITS ---
- Discharge Diagnoses Current Active Problems: Current Active and Chronic Problems (Last Reviewed 08/23/19 @ 03:[address] Rex Bernard MD) Sepsis (Acute) Pneumonia (Acute) You will use the following diet at home:: No restrictions Your food should be the consistency of: Regular Your liquids should be the consistency of: Regular/Thin Discharge Activity: Return to Normal Activity Allergies/Adverse Reactions: Allergies dextromethorphan HBr [From NyQuil] Adverse Reaction (Intermediate, Verified 08/22/19 21:50) tachycardia, feels anxious doxylamine [From NyQuil] Adverse Reaction (Intermediate, Verified 08/22/19 21:50) Tachycardia, feels anxious pseudoephedrine HCl [From NyQuil] Adverse Reaction (Intermediate, Verified 08/22/19 21:50) Tachycardia, feels anxious sertraline HCl [From Zoloft] Adverse Reaction (Verified 08/22/19 21:50) Diarrhea Medications to take at Discharge Propranolol HCl [Inderal (Beta Danielle)] 10 mg PO BID 07/11/17 albuterol sulfate 90 mcg/actuation aerosol inhaler 2 puff INHALATION Q4H PRN PRN #1 inhaler 02/04/19 Amitriptyline HCl 100 mg PO QHS 06/30/19 Fluticasone/Vilanterol [Breo Ellipta 200-25 Mcg INH] 1 inh INHALATION DAILY 06/30/19 Gabapentin 600 mg PO TID 06/30/19 Multivit-Min/FA/Lycopen/Lutein [Centrum Silver Men Tablet] 1 tab PO DAILY 06/30/19 Omeprazole 40 mg PO DAILY 06/30/19 Sertraline HCl 150 mg PO QHS 06/30/19 Umeclidinium [place] [Incruse Ellipta] 1 puff INHALATION DAILY 06/30/19 Divalproex Sodium [Depakote] 750 mg PO BID #90 tablet. 07/02/19 Quetiapine Fumarate [Seroquel] 25 mg PO QHS PRN PRN #0 07/02/19 Guaifenesin [Mucinex] 1,200 mg PO BID tablet 08/24/19 Prednisone 10 mg PO DAILY 12 Days #30 tab 08/24/19 levETIRAcetam tablet [Keppra tablet] 500 mg PO BID #60 tab 08/24/19 levoFLOXacin tablet [Levaquin tablet] 750 mg PO DAILY 5 Days #5 tab 08/24/19 The following prescriptions were given: levETIRAcetam tablet [Keppra tablet] 500 mg PO BID #60 tab levoFLOXacin tablet [Levaquin tablet] 750 mg PO DAILY 5 Days #5 tab Transmission Status: Pending to [facility] [place] Prednisone 10 mg PO DAILY 12 Days #30 tab Transmission Status: Pending to [facility] [place] Primary Care Physician: Priscilla Nixon MD [Primary Care Provider] - Please follow up with your Primary Care Physician in: 1-2 weeks Test Results: Test results from this visit will be discussed in further detail at your follow- up appointment, if applicable. Please Follow Up With: Rock Dick DO When: 1-2 weeks
--- NOTE | 2019-08-25 15:52 | CASEMGMT ---
JULIETTE SHARP Discharge Follow-Up Phone Call. Lace: 13 Strata: 3 Discharge Date: 08/24/19 Adm Dx: Sepsis secondary to Pneumonia. Attempted discharge follow-up phone call. No answer. Message left for pt to return call if he has any questions/concerns/needs. Phone number provided. Koby SILVA RN CM
== END 2019-08-24 17:53 | disposition home or self-care (01) | DRG 871 ==
LOC: ED 08-23 01:01 → MS3 08-23 01:23
PROVIDERS: Admitting Provider Hospitalist; Emergency Provider Emergency Medicine; PCP Internal Medicine; Visit Provider Internal Medicine
DX: A41.9 Sepsis, unspecified organism (principal); J18.9 Pneumonia, unspecified organism; J44.0 Chronic obstructive pulmonary disease with (acute) lower respiratory infection; J44.1 Chronic obstructive pulmonary disease with (acute) exacerbation; E87.1 Hypo-osmolality and hyponatremia; R91.8 Other nonspecific abnormal finding of lung field; G40.909 Epilepsy, unspecified, not intractable, without status epilepticus; G43.909 Migraine, unspecified, not intractable, without status migrainosus; G47.33 Obstructive sleep apnea (adult) (pediatric); K21.9 Gastro-esophageal reflux disease without esophagitis; F31.9 Bipolar disorder, unspecified; F17.210 Nicotine dependence, cigarettes, uncomplicated; Z91.19 Patient's noncompliance with other medical treatment and regimen; Z79.899 Other long term (current) drug therapy; Z87.820 Personal history of traumatic brain injury
CPT/HCPCS: 36415; 71046; 71275; 80048; 81001; 83605; 85025; 85379; 85610; 85730; 87040; 87070; 87077; 87086; 87088; 87186; 87205; 87449; 87633; 87641; 87804; 93005; 94640; 99251; 99285; 99406; J7030; J7050; Q9967; A4216; G0463; J0696

== ENCOUNTER → 2019-09-27 12:51 | Outpatient (CLI) | payer MEDICARE, MEDICAID, SELFPAY ==
[2019-08-23 02:32] VITALS: BMI 24.1
--- NOTE | 2019-09-27 12:52 | CT_ITS ---
STUDY: CT CHEST WITHOUT CONTRAST REASON FOR EXAM: Male, 59 years old. Pneumonia vs lung nodule follow up. COPD, smoker x30+ years. RADIATION DOSAGE (If Supplied By Facility): CTDIvol = ( 10.74 ) mGy, DLP = ( 408.06 ) mGycm TECHNIQUE: Transaxial imaging was performed without the administration of intravenous contrast material. Multiplanar coronal and sagittal images were reformatted. Individualized dose optimization techniques were used for this CT. COMPARISON: Comparison is made with prior examination dated August 22, 2019. FINDINGS: Stable small bilateral benign-appearing axillary lymph nodes. Hyperinflation and emphysematous changes worse in the upper lobes. There is a 6.1 mm partially cavitated nodule in the right upper lobe. This has decreased in size as compared to prior study. The previously seen infiltrate in the right upper lobe as a most completely resolved. This also evidence of 2 adjacent 1 cm nodules in the medial aspect of the posterior aspect of the right upper lobe. Partial cavitation is seen. These have decreased in size. The previously seen nodular density in the peripheral aspect of the right upper lobe has decreased in size as well presently measuring 1.1 cm. The increased markings surrounding the nodule has improved as well. The previously seen cystic changes in the anterior medial aspect of the left upper lobe has improved. There is a new 9.2 mm noncalcified nodule in the peripheral lateral aspect of the right upper lobe as seen on axial image #51. The right middle lobe infiltration has almost completely cleared. Stable nodular densities in the right lower lobe. Stable 1 cm nodule in the posterolateral aspect of the left upper lobe as seen on axial image #58. No infiltrate is seen in the left lung at this time. There is no demonstrated pleural abnormality. There are calcifications of the coronary arteries. Calcified right pretracheal and right hilar lymph nodes. Normal unenhanced pulmonary arteries. Normal aorta arch and descending thoracic aorta. There are multi-level degenerative changes of the thoracic spine. Multiple calcified splenic granulomas. CT/Chest without Contrast IMPRESSION: Since prior study, there has been almost complete resolution of the infiltrates in both lungs worse on the right side. Persistent nodular densities in the right hemithorax as described. Further follow-up is recommended. Electronically Signed: Bijan Oliveira, at 14:10 EDT , Service support ,
== END ==
PROVIDERS: PCP Internal Medicine; Referring Provider Nurse Practitioner Acute Care; Visit Provider Nurse Practitioner Acute Care
DX: J18.9 Pneumonia, unspecified organism (principal)
CPT/HCPCS: 71250

== ENCOUNTER → 2019-10-18 08:53 | Outpatient (CLI) | payer MEDICARE, MEDICAID, SELFPAY ==
[2019-09-30 09:18] VITALS: BMI 25.1
--- NOTE | 2019-10-18 06:40 | PET_ITS ---
EXAMINATION: FDG PET CT INDICATIONS: A 59-year-old male with reported history of pulmonary nodularity. COMPARISON EXAMINATION: Previous FDG PET study dated 05/23/18, CT of the chest report dated 09/27/19. INDEX LESION SIZE SUV INTERPRETATION NEW: Right upper-lower lung zones (n = multiple) 17.3 mm largest (frame 205) 2.9 (max) May necessitate histopathologic investigation, short-term reevaluation FDG PET CT imaging recommended at a minimum TECHNIQUE: Following the intravenous administration of 15 mCi of F-18 deoxyglucose, multiplanar image acquisitions of the neck, chest, abdomen and pelvis to level of mid thigh, obtained at one hour post radiopharmaceutical administration contemporaneously interpreted with the current CT of the neck, chest, abdomen and pelvis to level of mid thigh, dated 10/18/19 via coregistration and previous FDG PET study dated 05/23/18, CT of the chest report dated 09/27/19 reveal: SERUM GLUCOSE LEVEL: mg/dl. HEIGHT: inches. WEIGHT: lbs. FINDINGS: 1. On the current examination, several nodular focus of increased FDG distribution are defined in the right upper hemithorax pulmonary parenchyma-right upper and lower lobes in approximately six separate nodular presentations. The calculated maximum standard uptake value is 2.9. The maximal axial diameter of the largest, most conspicuous parenchymal density on review of CT of the chest dated 10/18/19 is 17.3 mm (AP). 2. Normal physiologic distribution of the radiopharmaceutical is apparent in the hepatic (3.4/3.0) and splenic parenchyma, both renal units, bladder and visualized intestinal tract. Diffuse intestinal tract activity is noted throughout all four quadrants of the abdominal-pelvic retroperitoneum and mesentery consistent with normal physiologic distribution of the radiopharmaceutical. Prominent tracer concentration is observed in the left ventricular myocardium commensurate with the FED state. Pertinent CT findings are as follows. CHEST: Parenchymal densities defined in the right upper-lower lung zones demonstrate varying degrees of increased glucose metabolism, as previously described. Atherosclerotic calcification is defined in the thoracic aorta without evidence of dilatation, aneurysm formation. Coronary arterial calcification is observed. Bilateral axillary soft tissue densities with fatty hilus are ametabolic. Calcified and noncalcified mediastinal and thoracic perihilar soft tissue is non-glucose avid. ABDOMEN AND PELVIS: Atherosclerotic calcification is defined in the abdominal aorta without evidence of dilatation, aneurysm formation. Bilateral inguinal soft tissue with fatty hilus demonstrates no evidence of increased glucose metabolism. Calcified granuloma formation is noted within the splenic parenchyma. Dystrophic calcification is apparent in the lower pelvis contiguous to the prostate gland with a calculated standard uptake value 2.2. Quantitative criteria for viable neoplasm are not fulfilled. SKELETAL: Degenerative changes defined in the cervical, thoracic and lumbar spine demonstrate no evidence of glucose hypermetabolism. Diffuse demineralization is defined. PET/PET/CT Tumor Base -Thigh Subs IMPRESSION: 1. Increased glucose metabolism currently identified in the right upper and lower lung henry may warrant histopathologic investigation secondary to the quantitative degree of uptake. (Bates et al, Annals of Internal Medicine, 138:724, 2003). 2. If a conservative management approach is undertaken, metabolic and/or anatomic stability may be ensured in the right hemithorax pulmonary parenchymal abnormalities with repeat FDG PET study and/or CT of the thorax in 9-12 weeks. (Xiu, Journal of Nuclear Medicine 45:88, P2004. Brayden, Seminars in Thoracic and Cardiovascular Surgery 14:292, 2002). 3. Facilitated tracer uptake noted in the lower pelvis contiguous to the prostate gland does not fulfill quantitative criteria for viable neoplasm. Further evaluation with magnetic resonance imaging may be of benefit if clinically indicated. Electronic Signature Don Garay D.O. Electronically Signed: Don Garay DO at 21:23 EDT Tel , Service support ,
== END ==
PROVIDERS: PCP Internal Medicine; Referring Provider Internal Medicine Critical Care Medicine; Visit Provider Internal Medicine Critical Care Medicine
DX: R91.8 Other nonspecific abnormal finding of lung field (principal)
CPT/HCPCS: 78815; A9552

== ENCOUNTER → 2019-11-06 09:31 | Outpatient (CLI) | payer MEDICARE, MEDICAID, SELFPAY ==
[2019-10-28 07:44] VITALS: BMI 24.7
[2019-11-06 09:44] LABS: Platelet Count 311 K/mm3 (150-450)
[2019-11-06 09:54] LABS: Partial Thromboplast Time 30.3 Seconds (24.1-36.2); Prothrombin Time (Protime)PT. 12.6 SECONDS (11.7-14.9)
== END ==
PROVIDERS: PCP Internal Medicine; Referring Provider Nurse Practitioner Acute Care; Visit Provider Nurse Practitioner Acute Care
DX: R06.02 Shortness of breath (principal)
CPT/HCPCS: 36415; 85049; 85610; 85730

== ENCOUNTER → 2019-11-11 08:27 | Outpatient (CLI) | payer MEDICARE, MEDICAID, SELFPAY ==
[2019-10-28 07:44] VITALS: BMI 24.7
[2019-11-11] VITALS (12 sets, daily range): BP systolic 103–133; BP diastolic 67–79; PULSE 93–100; RESP 13–18; TEMP 37.2; O2SAT 91–96; BMI 24.3
--- NOTE | 2019-11-11 08:28 | CT_ITS ---
STUDY: CT CHEST WITHOUT CONTRAST REASON FOR EXAM: Male, 59 years old. Lung nodule. The patient was scheduled for percutaneous biopsy of a right upper lobe pulmonary nodule. RADIATION DOSAGE (If Supplied By Facility): CTDIvol = ( 20.73 ) mGy, DLP = ( 318.31 ) mGycm TECHNIQUE: Transaxial imaging was performed without the administration of intravenous contrast material. Multiplanar coronal and sagittal images were reformatted. Individualized dose optimization techniques were used for this CT. COMPARISON: Comparison is made with prior examination dated September 27, 2019. FINDINGS: The previously seen nodular densities in the right hemithorax have decreased in size or resolved. The biopsy was not performed. There is evidence of a increased markings in the right middle lobe as compared to prior study. Further follow-up is recommended. An inflammatory process should be ruled out. There is no demonstrated pleural abnormality. There are calcifications of the coronary arteries. Normal mediastinum. Normal hilar regions. Normal unenhanced pulmonary arteries. Normal aorta arch and descending thoracic aorta. Normal osseous structures. There is no demonstrated abnormality of the visualized upper abdomen. CT/Chest without Contrast IMPRESSION: Since prior study, there has been decreased size and resolution of multiple pulmonary nodules in the right hemithorax as described. Residual inflammatory changes persist. Further follow-up is recommended. Electronically Signed: Bijan Oliveira, at 13:17 EDT , Service support ,
[2019-11-11] MEDS: Midazolam 2 MG/2 ML Syringe IV (09:55)
[2019-11-11] MEDS: fentaNYL 100 MCG/2 ML Ampul IV (09:56)
--- NOTE | 2019-11-11 12:14 | NURSING ---
Baseline vitals taken at 0950. Dr. Oliveira ordered 2mg Versed and 50mcg Fentanyl which were given at [address] Oliveira was reviewing images for CT-Guided Lung Biopsy. Dr. Oliveira reviewed the new CT images and determined the initial nodule that was going to be biopsied was smaller and unobtainable for biopsy. Dr. Oliveira requested the pt be monitored for 1 hour, due to being given Versed and Fentanyl, then able to go home. JULIETTE Fox called pt's Heike at 1000 to inform that no biopsy was done and that pt will still need to recover for 1 hour. Pt's also aware pt is to follow up with Tammy Hurd. Pt is made aware that no biopsy is being done due to smaller nodule.
--- NOTE | 2019-11-11 12:27 | NURSING ---
Pt able to transfer directly from CT table to Radiology Cart by himself.
--- NOTE | 2019-11-11 12:30 | NURSING ---
Pt awake, alert, appropriate, given coke to drink.
== END ==
PROVIDERS: PCP Internal Medicine; Referring Provider Nurse Practitioner Acute Care; Visit Provider Nurse Practitioner Acute Care
DX: R91.1 Solitary pulmonary nodule (principal); Z53.8 Procedure and treatment not carried out for other reasons; J44.9 Chronic obstructive pulmonary disease, unspecified; F17.210 Nicotine dependence, cigarettes, uncomplicated; G47.33 Obstructive sleep apnea (adult) (pediatric); F31.9 Bipolar disorder, unspecified; K21.9 Gastro-esophageal reflux disease without esophagitis; Z79.899 Other long term (current) drug therapy
CPT/HCPCS: 32405; 71250; 77012; J7040

== ENCOUNTER → 2019-12-22 09:50 | Outpatient (CLI) | payer MEDICARE, MEDICAID, SELFPAY ==
[2019-12-22 09:40] VITALS: BMI 25.1
--- NOTE | 2019-12-22 10:00 | RAD_ITS ---
STUDY: X-RAY CHEST REASON FOR EXAM: Male, 59 years old. COUGH AND SOB HX OF COPD TECHNIQUE: PA and lateral views of the chest. COMPARISON: Comparison is made with prior examination of August 22, 2019. FINDINGS: Hyperinflation. Stable blunting of the right costo phrenic angle. Persistent increased markings at the lung bases suggestive of scarring although there has been mild improvement at the right lung base as well as lateral aspect of the right upper lung. There is no demonstrated pleural abnormality. Normal size heart. Normal mediastinum and noreen. Normal visualized pulmonary arteries. Normal visualized aortic arch and descending thoracic aorta. There are degenerative changes of the visualized thoracic spine. Normal visualized ribs, clavicles, and shoulders. There is no demonstrated abnormality of the visualized soft tissue structures of the upper abdomen. RAD/Chest PA and Lateral IMPRESSION: Scarring at the lung bases worse on the right side with improvement as compared to prior study. Electronically Signed: Bijan Oliveira, at 15:36 EDT , Service support ,
== END ==
PROVIDERS: PCP Internal Medicine; Referring Provider Internal Medicine Critical Care Medicine; Visit Provider Internal Medicine Critical Care Medicine
DX: J44.9 Chronic obstructive pulmonary disease, unspecified (principal)
CPT/HCPCS: 71046; 87070; 87077; 87205

== ENCOUNTER 2020-04-28 01:10 | Emergency (ER) | payer MEDICARE, MEDICAID, SELFPAY ==
[2020-04-28] VITALS (10 sets, daily range): BP systolic 91–119; BP diastolic 68–80; PULSE 83–89; RESP 16–17; TEMP 36.7–37.1; O2SAT 93–98; BMI 26.1
--- NOTE | 2020-04-28 01:23 | EKG12_ITS ---
Test Reason : DYSRHYTHMIA Blood Pressure : / mmHG Vent. Rate : 085 BPM Atrial Rate : 085 BPM P-R Int : 158 ms QRS Dur : 108 ms QT Int : 384 ms P-R-T Axes : 061 073 058 degrees QTc Int : 456 ms Normal sinus rhythm Normal ECG Confirmed by ANGELIQUE ARBOLEDA, STEVEN ([id number]), editor publications GRICEL LUONG ([id number]) on 04/28/2020 11:11:29 AM Referred By: SADAF Confirmed By:STEVEN MERINO MD
--- NOTE | 2020-04-28 01:23 | RAD_ITS ---
STUDY: X-RAY CHEST REASON FOR EXAM: Male, 59 years old. Cough, shortness of breath, history of COPD, smoker. TECHNIQUE: Single frontal view of the chest. COMPARISON: None. FINDINGS: Ill-defined subpleural groundglass opacities in the right lower lobe may represent early pneumonia. There is blunting of the right cardiophrenic angle consistent with pleural parenchymal scarring. Normal size heart. Normal mediastinum and noreen. Normal visualized pulmonary arteries. Normal visualized aortic arch and descending thoracic aorta. Normal visualized thoracic spine. Normal visualized ribs, clavicles, and shoulders. There is no demonstrated abnormality of the visualized soft tissue structures of the upper abdomen. RAD/Chest 1 View (Portable) IMPRESSION: Ill-defined subpleural groundglass opacities in the right lower lobe may represent early pneumonia. Electronically Signed: Allan Berry, at 3:14 EST Tel , Service support ,
--- NOTE | 2020-04-28 01:26 | ED.DCSUM_ITS ---
History of Present Illness Chief Complaint: Shortness of Breath Informant: Patient Onset: Today Activity at onset: Unknown Timing: - - not sure; pt states he felt a little sob earlier but feels fine now Current Severity: Gone Maximum Severity: Mild Worsened by: - - unk Relieved by: - - unk Associated Symptoms: Clear sputum, Cough, Fever - subj, - - malaise. Negative for: Bloody Sputum Chest Pain: None Narrative: Patient states she started feeling ill 1-2 days ago. Yesterday he had subjective fevers and chills, cough, fatigue. No chest pain or shortness of breath. Today he was a little short of breath earlier, he did not think it was a big deal, and he feels fine now, just fatigued. He has been able to get around. His family called 911 and had him brought to the ER after 1 AM for evaluation of his illness, he states he thinks that they called because the last time he had pneumonia he ended up with some type of drain out of the right side of his chest and was very ill in the ICU, he states he does not feel that sick this time. Patient presents during the national coronavirus emergency declaration/pandemic. He denies any known contact with anyone infected with COVID-19. He denies traveling out of the immediate area recently. No one in his household is ill at this time. He denies any orthopnea or peripheral edema. He has history of COPD and still smokes, he admits that that is bad for him and he knows it. He denies having any chest discomfort in the last couple days, headaches, confusion, or focal neurologic symptoms. He has had some myalgias. - Past Medical History (1) Bipolar disorder Status: Chronic (2) COPD (chronic obstructive pulmonary disease) Status: Chronic (3) Chronic respiratory failure Status: Chronic (4) Depression Status: Chronic (5) Diastolic dysfunction Status: Chronic (6) GERD (gastroesophageal reflux disease) Status: Chronic (7) LACEY (obstructive sleep apnea) Status: Chronic Comment: CPAP 11 cm of water (8) Seizure disorder Status: Chronic (9) Traumatic brain injury Status: Chronic Past Medical History - Allergies and Home Meds Allergies/Adverse Reactions: Allergies dextromethorphan HBr [From NyQuil] Adverse Reaction (Intermediate, Verified 04/28/20 01:26) tachycardia, feels anxious doxylamine [From NyQuil] Adverse Reaction (Intermediate, Verified 04/28/20 01:26) Tachycardia, feels anxious pseudoephedrine HCl [From NyQuil] Adverse Reaction (Intermediate, Verified 04/28/20 01:26) Tachycardia, feels anxious sertraline HCl [From Zoloft] Adverse Reaction (Verified 04/28/20 01:26) Diarrhea Primary Care Physician: Priscilla Nixon MD [Primary Care Provider] - Surgical History: herniorrhaphy, - - Tennis elbow, Left ankle, TBI with encephalamalacia, Inguinal hernia. Lives: With Family Smoking Status: Current some day smoker - Family History Maternal Family History: Family History (Last Reviewed 01/06/20 @ 09:48 by Tammy Stone [employer], [employer]) Father Dementia Alzheimers disease Diabetes Mother Diabetes Family History: Reports: Diabetes Paternal Family History: Family History (Last Reviewed 01/06/20 @ 09:48 by Tammy Stone NP, [employer]) Father Dementia Alzheimers disease Diabetes Mother Diabetes Family History: Reports: Cancer, Heart Disease Review of Systems General: Reports: Chills, Fever, Malaise, Subjective. Denies: Sweats Eyes: Denies: Visual changes - bilaterally, Diplopia ENT: Denies: Bilateral ear pain, Rhinorrhea, Sore throat Cardiovascular: Denies: Chest pain, Palpitations Respiratory: Reports: Dyspnea, Cough, Sputum. Denies: Dyspnea on exertion, Orthopnea, Paroxysmal nocturnal dyspnea Gastrointestinal: Denies: Abdominal pain, Nausea, Vomiting, Diarrhea, Melena, Hematochezia Genitourinary: Denies: Dysuria, Hematuria, Frequency Musculoskeletal: Reports: Myalgias. Denies: Neck pain, Back pain, Extremity Pain Skin: Denies: Rash, Wounds Neurological: Denies: Headache, Weakness, Numbness Physical Exam Vital Signs/Narrative: Vital Signs Temp Pulse Resp BP Pulse Ox 04/28/20 01:14 98.7 F 89 16 91/70 98 Inital Vital Signs reviewed: Yes General: Well nourished, Well developed, No Acute Distress - Well-appearing, conversive in full sentences Head: Normocephalic, Atraumatic Eyes: Perrl, EOMI ENT: Moist mucous membranes, No rhinorrhea Neck: Supple, Nontender, No lymphadenopathy, No JVD Cardiovascular: Regular rate, Regular rhythm, No murmurs, Normal S1, Normal S2. Negative for: Tachycardia Respiratory: No distress, Chest nontender, Rales - right base. Negative for: Wheezing Abdomen: Soft, Nontender, Nondistended, Normal bowel sounds Back: Nontender, Normal Inspection. Negative for: CVA tenderness Extremities: Nontender, No edema. Negative for: Calf Tenderness Skin: Normal color, No rash, No Trauma Neurological: Alert, Oriented x3, Cranial nerves II-XII grossly intact, Normal Strength, Normal Sensation Psychological: Normal affect, Normal Mood Diagnostic/Tx/Re-eval Chest X-Ray - ED: 1 View, Read by ED Physician, Right Infiltrate - small, basilar Impressions Chest X-Ray 04/28/20 01:23 IMPRESSION: Ill-defined subpleural groundglass opacities in the right lower lobe may represent early pneumonia. Electronically Signed: Allan Berry, at 3:14 EST Tel , Service support , 04/28/20 01:23 Chest 1 View (Portable) [RAD] Stat Laboratory Results 04/28/20 04/28/20 04/28/20 01:30 01:30 01:30 WBC 11.0 RBC 4.70 Hgb 10.9 L Hct 35.2 L MCV 74.9 L MCH 23.2 L MCHC 31.0 L RDW Std Deviation 51.8 H RDW Coeff of Aaron 19.2 H Plt Count 273 MPV 9.1 Immature Gran % (Auto) 0.300 Neut % (Auto) 71.1 H Lymph % (Auto) 17.7 L Petroleum % (Auto) 10.4 H Eos % (Auto) 0.4 Baso % (Auto) 0.1 Absolute Neuts (auto) 7.8 H Absolute Lymphs (auto) 1.94 Nucleated RBC % 0 PT 13.1 INR 1.0 APTT 33.2 Sodium 136 Potassium 3.6 Chloride 104 Carbon Dioxide 28.0 Anion Gap 4 L BUN 7 Creatinine 0.80 Estim Creat Clear Calc 98.56 Est GFR (MDRD) Af Amer 128 Est GFR (MDRD) Non-Af 106 BUN/Creatinine Ratio 8.8 L Glucose 96 Lactic Acid Calcium 8.3 L Total Bilirubin 0.40 AST 8 L ALT 13 L Alkaline Phosphatase 70 Troponin I < 0.015 Total Protein 6.6 Albumin 3.0 L Globulin 3.6 Albumin/Globulin Ratio 0.8 L 04/28/20 01:30 WBC RBC Hgb Hct MCV MCH MCHC RDW Std Deviation RDW Coeff of Aaron Plt Count MPV Immature Gran % (Auto) Neut % (Auto) Lymph % (Auto) Petroleum % (Auto) Eos % (Auto) Baso % (Auto) Absolute Neuts (auto) Absolute Lymphs (auto) Nucleated RBC % PT INR APTT Sodium Potassium Chloride Carbon Dioxide Anion Gap BUN Creatinine Estim Creat Clear Calc Est GFR (MDRD) Af Amer Est GFR (MDRD) Non-Af BUN/Creatinine Ratio Glucose Lactic Acid 0.6 Calcium Total Bilirubin AST ALT Alkaline Phosphatase Troponin I Total Protein Albumin Globulin Albumin/Globulin Ratio - Rhythm Strip Rhythm Strip: Sinus Rhythm Rate: 85 Ectopy: None - EKG Initial EKG Interpretation: Sinus Rhythm, No Acute Injury Pattern - normal EKG Treatment - Dyspnea: Antibiotics - Medical Decision Making Patient felt well throughout his stay, he was ambulating his pulse ox actually went up to 98%. Resting he is at 93% on room air. He did not become dyspneic with ambulating. On my interpretation his x-ray shows an early right basilar infiltrate, radiology interpretation is in agreement. He has normal vital signs, he clinically is well and not septic, and his lactate is within normal limits. He does have a mild leukocytosis. Given that he presents during the coronavirus pandemic, a Covid test was sent but since he does not require admission at this time and does prefer to go home, this was sent as a send out. He was treated empirically with Rocephin and a azithromycin. His EKG is normal. He has no chest pain. Influenza returned negative. He has COPD but he has really not been doing much wheezing or having much dyspnea, so at this time I do not think he has to be put on steroids. At this time I feel it is safe for him to be discharged home to quarantine at home until his coronavirus test returns, and to continue antibiotics, and follow-up with his doctor. We discussed reasons to return, including worsening dyspnea/condition and he is comfortable with that plan. Nursing updated his significant other. ED Disposition - Plan for ED Patient: Disposition: Home or Assisted Living Diagnosis: Pneumonia Instructions: ED PNEUMONITIS Adult Prescriptions: Azithromycin 250 mg PO QHS #4 tab Transmission Status: Pending to [facility] Referrals: Priscilla Nixon MD [Primary Care Provider] - 3-5 Days
[2020-04-28] MEDS: 0.9% Normal Saline 1,000 ML 150 ML IV (01:34)
[2020-04-28 01:36] LABS: Absolute Lymphocyte Count 1.94 X10^3/uL (0.83-4.51); Absolute Neutrophil Count 7.8 X10^3/uL (2.0-7.7); Basophil# 0.01 X10^3/uL; Basophil% 0.1 % (0-1); Eosinophil# 0.04 X10^3/uL; Eosinophils% 0.4 % (0-5); Hematocrit 35.2 % (40-54); Hemoglobin 10.9 g/dL (13.0-16.5); Lymphocyte # 1.94 X10^3/ul (4.0); Lymphocyte % 17.7 % (19-41); Mean Corpuscular Hgb 23.2 pg (27.0-32.0); Mean Corpuscular Volume 74.9 fL (80-94); Mean Platelet Vol. 9.1 fl (6.2-12.0); Monocyte# 1.14 X10^3/uL; Monocyte% 10.4 % (0-10); NRBC Flagged by Analyzer 0 % (0-5); Neutrophil # 7.79 X10^3/uL (2.7-7.7); Neutrophil % 71.1 % (47-70); Platelet Count 273 K/mm3 (150-450); RBC Distribution Width CV 19.2 % (11.6-14.6); RBC Distribution Width SD 51.8 fl (35.1-43.9)
[2020-04-28 01:50] LABS: Prothrombin Time (Protime)PT. 13.1 SECONDS (11.7-14.9)
[2020-04-28 01:51] LABS: Partial Thromboplast Time 33.2 Seconds (24.1-36.2)
--- NOTE | 2020-04-28 01:57 | ED.RN ---
called and updated on condition and status
[2020-04-28 02:00] LABS: Lactic Acid 0.6 mmol/L (0.4-1.9)
[2020-04-28 02:02] LABS: ALB/GLOB Ratio 0.8 RATIO (0.9-2.4); AST(SGOT) 8 U/L (15-37); Alanine Aminotransfer ALT/SGPT 13 U/L (16-61); Alkaline Phosphatase 70 U/L (45-117); Anion Gap 4 (5-15); BUN 7 mg/dL (7-18); BUN/Creat Ratio 8.8 RATIO (10-20); Calcium,Total 8.3 mg/dL (8.5-10.1); Chloride 104 mmol/L (98-107); EST Glomerular Filtration Rate 106 mL/min (>60); Est Glom Filt Rate - Afr Amer 128 mL/min (>60); Estimated Creatinine Clearance 98.56 ml/min; Globulin 3.6 g/dL (2.2-4.2); Glucose 96 mg/dL (74-106); Potassium 3.6 mmol/L (3.5-5.1); Protein, Total 6.6 g/dL (6.4-8.2); Sodium Level 136 mmol/L (136-145)
[2020-04-28] MEDS: Ceftriaxone 1 GM/50 ML BAG IV (02:51)
--- NOTE | 2020-04-28 04:55 | ED.RN ---
called and updated on patients condition at this time
== END 2020-04-28 05:57 | disposition home or self-care (01) ==
PROVIDERS: Emergency Provider Emergency Medicine; PCP Internal Medicine
DX: J18.9 Pneumonia, unspecified organism (principal); J44.0 Chronic obstructive pulmonary disease with (acute) lower respiratory infection; Z20.828 Contact with and (suspected) exposure to other viral communicable diseases; J96.10 Chronic respiratory failure, unspecified whether with hypoxia or hypercapnia; G40.909 Epilepsy, unspecified, not intractable, without status epilepticus; G47.33 Obstructive sleep apnea (adult) (pediatric); K21.9 Gastro-esophageal reflux disease without esophagitis; F17.200 Nicotine dependence, unspecified, uncomplicated; Z79.899 Other long term (current) drug therapy; Z87.820 Personal history of traumatic brain injury
CPT/HCPCS: 36415; 71045; 80053; 83605; 84484; 85025; 85610; 85730; 87040; 87635; 87804; 93005; 96361; 96365; 96366; 96367; 99285; J7030; A4216; U0003

== ENCOUNTER → 2020-07-18 13:43 | Outpatient (CLI) | payer MEDICARE, MEDICAID, SELFPAY ==
[2020-07-18 14:00] VITALS: PULSE 101; PULSE 103; PULSE 105; PULSE 106; PULSE 108; PULSE 111; PULSE 96; PULSE 99; O2SAT 93; O2SAT 94; O2SAT 95; O2SAT 96
--- NOTE | 2020-07-19 05:54 | PCM.PSN.6M ---
PSN 6 Minute Walk Test - 6 Minute Walk Test 6 Minute Walk Test: 6 Minute Walk Test PSN:6-Minute Walk Test Start: 07/18/20 14:00 Freq: Status: Active Protocol: RESP.6MINW Document 07/18/20 14:00 CHAVA (Rec: 07/18/20 14:02 JLA [id number]) 6 Minute Walk Test Date Performed 07/18/20 Time Performed 13:45 Height 5 ft 8 in Weight: 74.843 kg Weight in Pounds 165.[address]: Rock Dick Assistive device used: None Pre-test Oxygen Delivery Method Room Air Pulse Ox (%) 96 Pulse Rate (60-100 beats/min) 96 Dyspnea Meron Scale (0-10) 0 Exertion Meron Scale (6-20) 6 1st minute Oxygen Delivery Method Room Air Pulse Ox (%) 93 Pulse Rate (60-100 beats/min) 101 H 2nd minute Oxygen Delivery Method Room Air Pulse Ox (%) 94 Pulse Rate (60-100 beats/min) 103 H 3rd minute Oxygen Delivery Method Room Air Pulse Ox (%) 95 Pulse Rate (60-100 beats/min) 108 H 4th minute Oxygen Delivery Method Room Air Pulse Ox (%) 95 Pulse Rate (60-100 beats/min) 111 H 5th minute Oxygen Delivery Method Room Air Pulse Ox (%) 94 Pulse Rate (60-100 beats/min) 105 H 6th minute Oxygen Delivery Method Room Air Pulse Ox (%) 95 Pulse Rate (60-100 beats/min) 106 H Dyspnea Meron Scale (0-10) 0 Exertion Meron Scale (6-20) 11 Post-test Oxygen Delivery Method Room Air Pulse Ox (%) 96 Pulse Rate (60-100 beats/min) 99 Full Laps Walked 20 Partial Lap, Number of Tiles Walked 0 Total Distance Walked (ft) 1180 - Interpretation Interpretation: The patient was able to ambulate 1180 feet over the course of 6 minutes on room air with no assistive devices or breaks. The patient had an oxygen niko of 93%, but did have a peak heart rate of 111 bpm. These findings are consistent with deconditioning. - Recommendations Recommendations: No supplemental oxygen is indicated at this time.
== END ==
PROVIDERS: PCP Internal Medicine; Referring Provider Internal Medicine Critical Care Medicine; Visit Provider Internal Medicine Critical Care Medicine
DX: J44.1 Chronic obstructive pulmonary disease with (acute) exacerbation (principal)
CPT/HCPCS: 94618

== ENCOUNTER 2020-09-28 09:04 | Outpatient (RCR) | payer MEDICARE, MEDICAID, SELFPAY | END 2020-11-21 23:59 | LOC: IMMUN 09:04 | PROVIDERS: PCP Internal Medicine; Referring Provider Family Medicine; Visit Provider Family Medicine | DX: Z23 Encounter for immunization (principal) | CPT/HCPCS: 0001A; 0002A; 91300 ==

== ENCOUNTER → 2020-10-31 14:47 | Outpatient (CLI) | payer MEDICARE, MEDICAID, SELFPAY ==
--- NOTE | 2020-10-31 14:59 | CT_ITS ---
STUDY: CT CHEST WITHOUT CONTRAST REASON FOR EXAM: Male, 60 years old. h/o lung nodules and tobacco dependency RADIATION DOSAGE (If Supplied By Facility): CTDIvol = ( 9.74 ) mGy, DLP = ( 382.12 ) mGycm TECHNIQUE: Transaxial imaging was performed without the administration of intravenous contrast material. Individualized dose optimization techniques were used for this CT. COMPARISON: 11/11/2019 FINDINGS: Moderate emphysematous changes. No change in the 6 mm noncalcified nodule right upper lobe lungs on image 21. Some other smaller nodules are seen in the right lung. No new noncalcified nodule or mass. There is no demonstrated pleural abnormality. Normal heart and pericardium. There are calcifications of the coronary arteries. Normal mediastinum. Normal hilar regions. Normal unenhanced pulmonary arteries. Normal aorta arch and descending thoracic aorta. Normal osseous structures. There is no demonstrated abnormality of the visualized upper abdomen. CT/Chest without Contrast IMPRESSION: No change from 11/03/2019. Electronically Signed: Don Loera MD at 17:49 EDT Tel , Service support ,
== END ==
PROVIDERS: PCP Internal Medicine; Referring Provider Internal Medicine Critical Care Medicine; Visit Provider Internal Medicine Critical Care Medicine
DX: R91.8 Other nonspecific abnormal finding of lung field (principal)
CPT/HCPCS: 71250

== ENCOUNTER 2021-07-18 09:17 | Outpatient (CLI) | payer MEDICARE, MEDICAID, SELFPAY ==
--- NOTE | 2021-07-18 12:00 | PFTCOMP ---
COMPLETE PULMONARY FUNCTION TEST INTERPRETATION Brief HPI: Patient is a 60 year old male, currently under the care of Tammy Stone, who presents to [facility] for complete pulmonary function tests secondary to diagnosis of COPD. Respiratory therapist reports good effort and reproducible results. Interpretation: Forced expiration spirometry shows a very severe large airways obstructive ventilatory defect with an FEV1 of 34% predicted. There is a significant bronchodilator response in FVC by strict ATS criteria. Spirograms are of good quality and plateau slowly, indicating slowly emptying areas of the lungs. The respiratory flow volume loop shows decreased expiratory flow rates at all lung volumes consistent with airway obstruction. Lung volumes by body plethysmography show a normal total lung capacity at 5.76 L, 93% predicted. All other lung volumes are within normal limits. Diffusion capacity by carbon monoxide is decreased at 64% predicted. The airway resistance is elevated. Compared to previous pulmonary function tests from 09/17/2018, there is been a significant reduction in FVC and FEV1 by 21% and 30% respectively. Impression: Partial reversible very severe large airways obstructive ventilatory defect with a decrease in diffusion capacity and significant worsening compared to previous testing.
== END 2021-07-18 23:59 | disposition short-term general hospital (02) ==
PROVIDERS: PCP Internal Medicine; Referring Provider Nurse Practitioner Acute Care; Visit Provider Nurse Practitioner Acute Care
DX: J44.1 Chronic obstructive pulmonary disease with (acute) exacerbation (principal)
CPT/HCPCS: 94060; 94726; 94729

== ENCOUNTER 2021-07-24 08:11 | Outpatient (CLI) | payer MEDICARE, MEDICAID, SELFPAY ==
[2021-07-24 08:27] VITALS: PULSE 100; PULSE 101; PULSE 102; PULSE 87; PULSE 90; PULSE 98; O2SAT 94; O2SAT 96; O2SAT 97
--- NOTE | 2021-07-24 13:16 | PCM.PSN.6M ---
PSN 6 Minute Walk Test 6 Minute Walk Test 6 Minute Walk Test: 6 Minute Walk Test PSN:6-Minute Walk Test Start: 07/24/21 08:27 Freq: Status: Active Protocol: RESP.6MINW Document 07/24/21 08:27 [place] (Rec: 07/24/21 08:30 [place]ON [id number]) 6 Minute Walk Test Date Performed 07/24/21 Time Performed 08:15 Height 5 ft 8 in Weight: 74.843 kg Weight in Pounds 165.[address]: Rock Dick Assistive device used: None Pre-test Oxygen Delivery Method Room Air Pulse Ox (%) 96 Pulse Rate (60-100 beats/min) 87 Dyspnea Meron Scale (0-10) 0 Exertion Meron Scale (6-20) 6 1st minute Oxygen Delivery Method Room Air Pulse Ox (%) 96 Pulse Rate (60-100 beats/min) 98 2nd minute Oxygen Delivery Method Room Air Pulse Ox (%) 94 Pulse Rate (60-100 beats/min) 100 3rd minute Oxygen Delivery Method Room Air Pulse Ox (%) 94 Pulse Rate (60-100 beats/min) 101 H 4th minute Oxygen Delivery Method Room Air Pulse Ox (%) 94 Pulse Rate (60-100 beats/min) 102 H 5th minute Oxygen Delivery Method Room Air Pulse Ox (%) 94 Pulse Rate (60-100 beats/min) 102 H 6th minute Oxygen Delivery Method Room Air Pulse Ox (%) 94 Pulse Rate (60-100 beats/min) 102 H Dyspnea Meron Scale (0-10) 3 Exertion Meron Scale (6-20) 12 Post-test Oxygen Delivery Method Room Air Pulse Ox (%) 97 Pulse Rate (60-100 beats/min) 90 Full Laps Walked 18 Partial Lap, Number of Tiles Walked 16 Total Distance Walked (ft) 1078 Interpretation Interpretation: The patient ambulated 1070 feet over the course of 6 minutes beginning on room air without assistive devices. Pretesting oxygen saturation was noted to be 96% on room air. With ambulation, the niko oxygen saturation was 94%. There was no significant exertional oxygen desaturation. Recommendations Recommendations: There is no indication for the use of supplemental oxygen at this time.
== END 2021-07-24 23:59 | disposition home or self-care (01) ==
LOC: PSN 08:12
PROVIDERS: PCP Internal Medicine; Referring Provider Nurse Practitioner Acute Care; Visit Provider Nurse Practitioner Acute Care
DX: J44.1 Chronic obstructive pulmonary disease with (acute) exacerbation (principal)
CPT/HCPCS: 94618

== ENCOUNTER 2021-08-21 09:15 | Emergency (ER) | payer MEDICARE, MEDICAID, SELFPAY ==
[2021-08-21 09:16] VITALS: BP 133/85; PULSE 109; RESP 18; TEMP 36.8; O2SAT 94; BMI 25.0
--- NOTE | 2021-08-21 09:40 | EKG12_ITS ---
Test Reason : Blood Pressure : / mmHG Vent. Rate : 104 BPM Atrial Rate : 104 BPM P-R Int : 178 ms QRS Dur : 102 ms QT Int : 350 ms P-R-T Axes : 074 091 071 degrees QTc Int : 460 ms Sinus tachycardia Otherwise normal ECG Confirmed by SHIRLEY ARBOLEDA, MARLON ([id number]), editor newspaper GRICEL LUONG ([id number]) on 08/22/2021 9:41:15 AM Referred By: SEBASTIÁN Confirmed By:MARLON WATSON MD
--- NOTE | 2021-08-21 09:40 | RAD_ITS ---
STUDY: X-RAY CHEST REASON FOR EXAM: Male, 60 years old. SHORTNESS OF BREATH . Worsening shortness of breath. Chest tightness. TECHNIQUE: Single AP portable view of the chest. COMPARISON: Comparison is made with prior study dated 04/28/2020. FINDINGS: Stable pleural parenchymal changes at the right lung base. Hyperinflation. Decreased bronchovascular markings in both lungs more prominent in the upper lobes suggestive of emphysematous change. There is no demonstrated pleural abnormality. Normal size heart. Normal mediastinum and noreen. Normal visualized pulmonary arteries. Normal visualized aortic arch and descending thoracic aorta. There are diffuse degenerative changes of the visualized thoracic spine. Normal visualized ribs, clavicles, and shoulders. There is no demonstrated abnormality of the visualized soft tissue structures of the upper abdomen. RAD/Chest 1 View (Portable) IMPRESSION: Stable pleural parenchymal changes at the right lung base. Electronically Signed: Bijan Oliveira MD at 10:35 EST ,
--- NOTE | 2021-08-21 09:41 | EDS_ITS ---
HPI History of Present Illness Chief Complaint: Shortness of Breath Narrative Narrative: Patient with past medical history of COPD presents with his because of increasing shortness of breath and dyspnea/dyspnea on exertion over the last few days. He has chronic breathing problems and has been using his albuterol more frequently. He is still a smoker of approximately half a pack a day, but has not been able to smoke today. He last received a breathing treatment at 4:00 this morning approximately 5-1/2 hours ago. He does not take chronic steroids like prednisone but uses Trelegy. He used to be on oxygen, but he passed his 6-minute lock according to his . He has known pulmonary nodules that have been monitored via CT. He presents because of the increasing shortness of breath. He denies any chest pain or leg swelling. [facility] Medical History (Updated 08/21/21 @ 12:47 by Miguel Ángel Liao MD) Acute respiratory failure Bilateral tennis elbow Bipolar disorder COPD (chronic obstructive pulmonary disease) Depression Encephalopathy GERD (gastroesophageal reflux disease) Hoarseness Left ankle injury Lung nodule Migraine LACEY (obstructive sleep apnea) Pneumonia Sepsis Sleep-related breathing disorder Spinal stenosis Tobacco abuse Traumatic brain injury Home Medications amitriptyline 100 mg PO QHS 06/30/19 [History Last Taken 08/21/19] gabapentin 600 mg PO TID 06/30/19 [History Last Taken 08/22/19 13:00] vdtjhxwr-png-VA-lycopen-lutein 1 tab PO DAILY 06/30/19 [History Last Taken 08/21/19] omeprazole 40 mg PO DAILY 06/30/19 [History Last Taken 08/22/19] sertraline 50 mg PO DAILY 06/30/19 [History Last Taken 08/21/19] divalproex 750 mg PO BID #90 tablet. 07/02/19 [Rx Last Taken 08/22/19 08:00] levetiracetam 1,000 mg PO DAILY 04/28/20 [History Last Taken Unknown] quetiapine 200 mg PO QHS 04/28/20 [History Last Taken Unknown] fluticasone fur. 100 mcg-umeclid 62.5 mcg-vilant 25 mcg inhalat.powder 1 inh INHALATION QDAY #60 ea 03/12/21 [Rx Last Taken Unknown] albuterol sulfate 90 mcg/actuation aerosol inhaler 2 puff INHALATION Q4H PRN PRN #1 inhaler 07/09/21 [Rx Last Taken Unknown] prednisone 40 mg PO DAILY #14 tab 08/21/21 [Rx Last Taken Unknown] Allergy/AdvReac Type Severity Reaction Status Date / Time dextromethorphan HBr AdvReac Intermediate tachycardia, Verified 08/21/21 09:15 [From NyQuil] feels anxious doxylamine [From NyQuil] AdvReac Intermediate Tachycardia, Verified 08/21/21 09:15 feels anxious pseudoephedrine HCl AdvReac Intermediate Tachycardia, Verified 08/21/21 09:15 [From NyQuil] feels anxious sertraline HCl [From Zoloft] AdvReac Diarrhea Verified 08/21/21 09:15 Family History Father Dementia Alzheimers disease Diabetes Mother Diabetes Surgical History History of hernia repair Social History Smoking Status: Current some day smoker tobacco type: cigarettes Tobacco: How many years used: 30 second hand exposure: Yes alcohol intake: never substance use type: does not use ROS ROS ED ROS Narrative Constitutional: No fever, no chills. HEENT: No sore throat. No neck pain. No loss of vision. No rhinorrhea. Cardiovascular: No chest pain. No palpitations. No pedal edema. Respiratory: Positive cough, increasing shortness of breath with dyspnea on exertion. Abdominal: No abdominal pain. No nausea. No vomiting. Genitourinary: No dysuria. No hematuria. Musculoskeletal: No myalgias. No arthralgias. Neurologic: No headaches. No dizziness. No lightheadedness. Skin: No rash. No change in color. Psychiatric: No depression. No anxiety. EXAM Physical Exam Narrative Exam Narrative: Afebrile. Vital signs noted. Speaking in 3-4 word sentences HEENT: Normocephalic. Atraumatic. PERRL, EOMI. Neck soft and supple. No point tenderness or step off. Cardiovascular: Regular rate and rhythm. No murmurs, rubs, or gallops appreciated. Respiratory: Mild tachypnea. Moving a fair amount of air. Diffuse expiratory wheezing. Gastrointestinal: Abdomen soft, nontender, with normoactive bowel sounds. No rebound or guarding. Neurological: Awake. Alert. Nonfocal, nonlateralizing. Skin: No rash. Normal color. No pallor. Musculoskeletal: No pedal edema. Full range of motion extremities. Const Vital Signs: 08/21/21 09:16 08/21/21 11:04 08/21/21 11:05 Temperature 98.2 F 97.6 F L Temperature Source Temporal Temporal Pulse Rate 109 H 84 Respiratory Rate 18 16 Respiratory Effort Short of Breath Respiratory Depth Normal Respiratory Pattern Normal Blood Pressure 133/85 H 142/68 H Blood Pressure Mean 101 92 Pulse Ox 94 95 Oxygen Delivery Method Room Air Room Air Room Air MDM MDM MDM Narrative Medical decision making narrative: Comprehensive work-up was pursued. He was given an aerosol treatment of DuoNeb, chest x-ray and basic laboratories along with EKG were obtained. EKG shows sinus tachycardia at 104 bpm without ectopy or acute ST changes there is baseline artifact in V1/the rhythm strip. He was also administered methylprednisolone 125 mg intravenously. He has normal white count of 4.7, hemoglobin normal at 12.6 if not slightly low. Normal platelet count 286. Slightly low sodium of 131. Electrolyte panel otherwise unremarkable. High-sensitivity troponin normal at 6. BNP is also normal at 6.5. Chest x-ray in 1 view shows stable pleural-parenchymal changes at the right lung base. Upon repeat examination, he is breathing much better and moving a good amount of air. He was ambulated and his pulse ox was 92 to 93% with ambulation. He and his state his baseline is usually 90-92. 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 Dick. He will be given a prescription for steroid burst for the next week of 40 mg. Return instructions to the emergency department were reviewed. Disposition is discharged home in stable condition. Smoking cessation was discussed. Lab Data Attestation: I reviewed the patient's lab results. Labs: Laboratory Results - last 24 hr 08/21/21 08/21/21 08/21/21 10:05 10:05 10:05 WBC 4.7 RBC 5.13 Hgb 12.6 L Hct 39.5 L MCV 77.0 L MCH 24.6 L MCHC 31.9 L RDW Std Deviation 50.4 H RDW Coeff of Aaron 18.2 H Plt Count 286 MPV 8.5 Immature Gran % (Auto) 0.200 Neut % (Auto) 69.4 Lymph % (Auto) 18.4 L Hayes % (Auto) 11.6 H Eos % (Auto) 0.2 Baso % (Auto) 0.2 Absolute Neuts (auto) 3.2 Absolute Lymphs (auto) 0.86 Nucleated RBC % 0 Sodium 131 L Potassium 4.6 Chloride 99 Carbon Dioxide 28.0 Anion Gap 4 L BUN 11 Creatinine 0.95 Estim Creat Clear Calc 82.00 Est GFR (MDRD) Af Amer 105 Est GFR (MDRD) Non-Af 87 BUN/Creatinine Ratio 11.6 Glucose 100 Calcium 8.9 Troponin I High Sens 6 B-Natriuretic Peptide 6.5 Radiography Diagnostic Testing: Clinical Impression(s) from Imaging Studies Chest X-Ray 08/21/21 09:40 IMPRESSION: Stable pleural parenchymal changes at the right lung base. Electronically Signed: Bijan Oliveira MD at 10:35 EST , Discharge Plan Triage Chief Complaint: Shortness of Breath ED Provider: Miguel Ángel Liao Dx/Rx/DC Orders Clinical Impression: COPD exacerbation, Tobacco abuse Instructions: ED COPD Flare Prescriptions: New prednisone 20 mg tablet 40 mg PO DAILY Qty: 14 RF: 0 No Action Trelegy Ellipta 100-62.5-25 mcg blister with device 1 inh INHALATION QDAY Qty: 60 RF: 6 gabapentin 600 MG tablet 600 mg PO TID RF: 0 omeprazole 20 MG capsule,delayed release(DR/EC) 40 mg PO DAILY RF: 0 sertraline 50 MG tablet 50 mg PO DAILY RF: 0 amitriptyline 100 MG tablet 100 mg PO QHS RF: 0 jocrwwlq-rwm-VL-lycopen-lutein 1 EACH tablet 1 tab PO DAILY RF: 0 divalproex 500 MG tablet,delayed release (DR/EC) 750 mg PO BID Qty: 90 RF: 0 quetiapine 200 MG tablet 200 mg PO QHS RF: 0 levetiracetam 500 MG tablet 1,000 mg PO DAILY RF: 0 albuterol sulfate 90 mcg/actuation HFA aerosol inhaler 2 puff INHALATION Q4H PRN PRN (Reason: sob/wheezing) Qty: 1 RF: 11 Primary Care Provider: Priscilla Nixon Referrals: Priscilla Nixon MD [Primary Care Provider] - 3-5 Days Rock Dick DO [STAFF PHYSICIAN] - 3-5 Days if not improving Disposition Disposition: Home, Self Care
[2021-08-21] MEDS: MethylPREDNISolone 125 MG/2 ML Vial IV (10:08)
[2021-08-21 10:20] LABS: Absolute Lymphocyte Count 0.86 X10^3/uL (0.83-4.51); Absolute Neutrophil Count 3.2 X10^3/uL (2.0-7.7); Basophil# 0.01 X10^3/uL; Basophil% 0.2 % (0-1); Eosinophil# 0.01 X10^3/uL; Eosinophils% 0.2 % (0-5); Hematocrit 39.5 % (40-54); Hemoglobin 12.6 g/dL (13.0-16.5); Lymphocyte # 0.86 X10^3/ul (0.83-4.51); Lymphocyte % 18.4 % (19-41); Mean Corp Hgb Conc 31.9 g/dL (32-36); Mean Corpuscular Hgb 24.6 pg (27.0-32.0); Mean Platelet Vol. 8.5 fl (6.2-12.0); Monocyte# 0.54 X10^3/uL; Monocyte% 11.6 % (0-10); NRBC Flagged by Analyzer 0 % (0-5); Neutrophil # 3.24 X10^3/uL (2.7-7.7); Neutrophil % 69.4 % (47-70); Platelet Count 286 K/mm3 (150-450); RBC Distribution Width CV 18.2 % (11.6-14.6); RBC Distribution Width SD 50.4 fl (35.1-43.9); Red Blood Count 5.13 M/mm3 (4.6-6.2); White Blood Count 4.7 K/mm3 (4.4-11.0)
[2021-08-21 10:39] LABS: BNP,B-Type NATRIURETIC PEPTIDE 6.5 pg/mL (0-100)
[2021-08-21 10:46] LABS: Anion Gap 4 (5-15); BUN 11 mg/dL (7-18); BUN/Creat Ratio 11.6 RATIO (10-20); Calcium,Total 8.9 mg/dL (8.5-10.1); Chloride 99 mmol/L (98-107); Creatinine, Serum 0.95 mg/dL (0.70-1.30); EST Glomerular Filtration Rate 87 mL/min (>60); Est Glom Filt Rate - Afr Amer 105 mL/min (>60); Glucose 100 mg/dL (74-106); Potassium 4.6 mmol/L (3.5-5.1); Sodium Level 131 mmol/L (136-145); Troponin-I HS 6 pg/mL (3.0-78.0)
[2021-08-21 11:04] VITALS: BP 142/68; PULSE 84; RESP 16; TEMP 36.4; O2SAT 95
[2021-08-21 11:05] VITALS: O2SAT 95
[2021-08-21 12:31] VITALS: O2SAT 92
[2021-08-21 12:55] VITALS: BP 138/74; PULSE 74; RESP 18; O2SAT 93
== END 2021-08-21 12:56 | disposition home or self-care (01) ==
PROVIDERS: Emergency Provider Emergency Medicine; PCP Internal Medicine; Visit Provider Emergency Medicine
DX: J44.1 Chronic obstructive pulmonary disease with (acute) exacerbation (principal); F31.9 Bipolar disorder, unspecified; K21.9 Gastro-esophageal reflux disease without esophagitis; G47.33 Obstructive sleep apnea (adult) (pediatric); F17.210 Nicotine dependence, cigarettes, uncomplicated; Z79.899 Other long term (current) drug therapy; Z86.11 Personal history of tuberculosis
CPT/HCPCS: 71045; 80048; 83880; 84484; 85025; 87426; 93005; 96374; 99284; A4216

== ENCOUNTER 2021-10-01 18:50 | Outpatient (CLI) | payer MEDICARE, MEDICAID, SELFPAY ==
--- NOTE | 2021-10-01 18:52 | CT_ITS ---
EXAM: CT CHEST, LUNG CANCER SCREENING WITHOUT INTRAVENOUS CONTRAST : 1960 CLINICAL INDICATION: Tobacco Dependency TECHNIQUE: Helically acquired images were obtained of the chest without intravenous contrast using low dose (LDCT) lung cancer screening protocol. This CT exam was performed using one or more of the following dose reduction techniques: automated exposure control, adjustment of the mA and/or kV according to patient size, and/or use of iterative reconstruction technique. This report was created using [employer] report generation technology. COMPARISON: October 31, 2020 FINDINGS: LUNGS AND PLEURAL SPACES: Diffuse emphysematous changes of the lungs again noted. The scattered fibronodular densities throughout the right lung and the calcified and noncalcified bilateral pulmonary nodules unchanged from prior exam. No pleural effusion or thickening. No pneumothorax. HEART: Moderate coronary artery calcification. Heart size is normal. No pericardial effusion. MEDIASTINUM: Unremarkable. No mediastinal or hilar adenopathy. Esophagus is unremarkable. No hiatal hernia. THYROID: Unremarkable. No thyroid lesions. BONES/JOINTS: Stable compression deformity of the L1 vertebral body. No suspicious lytic or blastic abnormality. VASCULATURE: Unremarkable. Thoracic aorta is non-dilated. LYMPH NODES: Unremarkable. No enlarged lymph nodes. CT/Low Dose CT Lung Screening IMPRESSION: 1. Stable appearance of the lungs. Diffuse pulmonary emphysema and fibronodular scarring unchanged from prior exam. 2. ACR Lung CT Screening Reporting T Data System (Lung-RADS) score: 2 - Benign Appearance or Behavior. Recommend continued annual screening with low-dose CT (LDCT) in 12 months. Individualized dose optimization techniques were used for this CT. at 2017 Reported and signed by: Tony Carranza MD Electronically Signed: Tony Carranza MD at 20:16 EDT ,
== END 2021-10-01 23:59 | disposition home or self-care (01) ==
LOC: CT 18:52
PROVIDERS: PCP Internal Medicine; Visit Provider Internal Medicine Critical Care Medicine
DX: Z87.891 Personal history of nicotine dependence (principal)
CPT/HCPCS: 71271

== ENCOUNTER 2022-03-09 23:29 | Emergency (ER) | payer MEDICARE, MEDICAID, SELFPAY ==
[2022-03-09 23:30] VITALS: BP 195/101; PULSE 95; RESP 16; TEMP 36.2; O2SAT 97; BMI 24.3
--- NOTE | 2022-03-09 23:44 | RAD_ITS ---
STUDY: X-RAY - RIGHT WRIST REASON FOR EXAM: Male, 61 years old patient with wrist pain. TECHNIQUE: 4 view(s) of the wrist were obtained. COMPARISON: Prior comparison studies are not available for review at this time. FINDINGS: Normal visualized distal radius and ulna. Normal radiocarpal articulation. Normal distal radioulnar articulation. Normal carpal bones. Normal carpal articulations. Normal carpometacarpal articulation of the thumb. Normal second through fifth carpometacarpal articulations. There appears be a boxer''s fracture distal fifth metacarpal. This may not be acute. The metacarpals otherwise have normal appearance and alignment. There is moderately severe soft tissue swelling. There is no demonstrated acute fracture. RAD/Wrist min 3 Views IMPRESSION: 1. There is probably an old boxer''s fracture. 2. No definite acute fracture is visualized. If there is clinical concern for acute fracture, follow-up radiographs in 7-10 days maybe helpful in evaluating a healing radiographically occult fracture. Electronically Signed: aMya Lorenz MD at 0:12 EDT ,
--- NOTE | 2022-03-09 23:44 | EX.ED.UPPERE ---
HPI History of Present Illness Chief Complaint: Upper Extremity Injury Narrative Narrative: Patient presents with right wrist pain. He points to the dorsum of the right wrist. He denies direct trauma to it. He states that he was carrying a bookcase down the stairs with his brother and he slipped and hyperextended the right wrist. He states he took Tylenol prior to arrival which did not help. He has not tried ice or heat. He is able to flex and extend the wrist. He denies any hand pain. No lacerations, abrasions. There are some mild bruising over the dorsum of the right wrist. [facility] Medical History Acute respiratory failure Bilateral tennis elbow Bipolar disorder COPD (chronic obstructive pulmonary disease) Depression Encephalopathy GERD (gastroesophageal reflux disease) Hoarseness Left ankle injury Lung nodule Migraine LACEY (obstructive sleep apnea) Pneumonia Sepsis Sleep-related breathing disorder Spinal stenosis Tobacco abuse Traumatic brain injury Home Medications amitriptyline 100 mg tablet 100 mg PO QHS sleep 06/30/19 [History Last Taken 08/21/19] gabapentin 600 mg tablet 600 mg PO TID nerve pain 06/30/19 [History Last Taken 08/22/19 13:00] gyfsrikz-ple-cvvqt acid 300 mcg-lycopene 600 mcg-lutein 300 mcg tablet 1 tab PO DAILY supplement 06/30/19 [History Last Taken 08/21/19] omeprazole 20 mg capsule,delayed release 40 mg PO DAILY gerd 06/30/19 [History Last Taken 08/22/19] sertraline 50 mg tablet 50 mg PO DAILY anxiety 06/30/19 [History Last Taken 08/21/19] divalproex 500 mg tablet,delayed release 750 mg PO BID ##90 07/02/19 [Rx Last Taken 08/22/19 08:00] levetiracetam 500 mg tablet 1,000 mg PO DAILY 04/28/20 [History Last Taken Unknown] quetiapine 200 mg tablet 200 mg PO QHS 04/28/20 [History Last Taken Unknown] albuterol sulfate 90 mcg/actuation aerosol inhaler 2 puff inhalation Q4H PRN PRN sob/wheezing ##1 07/09/21 [Rx Last Taken Unknown] amoxicillin 875 mg-potassium clavulanate 125 mg tablet 1 tab PO BID #20 tabs 08/28/21 [Rx Last Taken Unknown] prednisone 10 mg tablet 10 mg PO QDAY #30 tabs 08/28/21 [Rx Last Taken Unknown] fluticasone fur. 200 mcg-umeclid 62.5 mcg-vilant 25 mcg inhalat.powder (Trelegy Ellipta) 1 inh inhalation DAILY #60 ea 09/25/21 [Rx Last Taken Unknown] nicotine 21mg/24hr-14mg/24hr-7mg/24hr daily transderm patches,sequentl See Rx Instructions transdermal .COMPLEX #56 patches 09/25/21 [Rx Last Taken Unknown] naproxen 500 mg tablet (Naprosyn) 500 mg PO BID PRN pain #20 tabs 03/10/22 [Rx Last Taken Unknown] Allergy/AdvReac Type Severity Reaction Status Date / Time dextromethorphan HBr AdvReac Intermediate tachycardia, Verified 03/09/22 23:32 [From NyQuil] feels anxious doxylamine [From NyQuil] AdvReac Intermediate Tachycardia, Verified 03/09/22 23:32 feels anxious pseudoephedrine HCl AdvReac Intermediate Tachycardia, Verified 03/09/22 23:32 [From NyQuil] feels anxious sertraline HCl [From Zoloft] AdvReac Diarrhea Verified 03/09/22 23:32 Family History Father Dementia Alzheimers disease Diabetes Mother Diabetes Surgical History History of hernia repair Social History Smoking Status: Current some day smoker tobacco type: cigarettes Tobacco: How many years used: 30 second hand exposure: Yes alcohol intake: never substance use type: does not use ROS ROS ED Constitutional Constitutional ED: Denies chills, fever(s) or sweats Eyes Eyes: Denies blurry vision or change in vision ENT ENT ED: Denies ear pain or sore throat Cardiovascular Cardiovascular: Denies chest pain, palpitations or racing heartbeat Respiratory/Chest Respiratory/Chest: Denies cough, dyspnea or sputum Gastrointestinal Gastrointestinal: Denies abdominal pain, constipation, diarrhea, nausea or vomiting Genitourinary Genitourinary ED: Denies dysuria, hematuria or urinary frequency Musculoskeletal Musculoskeletal: Reports other Details: Right wrist pain ; Denies arthralgias, myalgias or neck pain Integumentary Reports other Details: Bruising over right wrist ; Denies abscess, Abrasions or rash Neurologic Neurologic: Denies headache(s), paresthesias or weakness Psychiatric Psychiatric: Denies anxiety, depression, suicidal ideation or suicidal thoughts Endocrine Endocrinology: Denies polydipsia or polyuria EXAM Physical Exam Const Vital Signs: 03/09/22 23:30 Temperature 97.2 F L Temperature Source Temporal Pulse Rate 95 Respiratory Rate 16 Blood Pressure 195/101 H Blood Pressure Mean 132 Pulse Ox 97 Oxygen Delivery Method Room Air Positive well nourished General Appearance ED: NAD HEENT Reports moist mucous membranes normocephalic and atraumatic Resp normal respiratory effort Cardio regular rate and regular rhythm Extremity Extremity Narrative: Right wrist tender to palpation over the dorsal aspect in the midline. Patient can flex and extend the wrist but states it is painful. There is no deformity noted. No pain on the medial or lateral wrist. No pain at anatomic snuffbox. The hand is free from pain and neurovascular intact with brisk up refill to all 5 fingers. Radial pulse 2+. Neuro oriented x3 and CN's II-XII intact bilaterally Sensorium / Orientation: alert Motor Exam: strength 5/5 throughout Psych mental status grossly normal Mood & Affect: Negative for depressed or anxious Skin General Skin Exam: Negative for petechiae MDM MDM MDM Narrative Medical decision making narrative: Was given [place] for his pain. He has some slight bruising of the dorsum of the wrist. I obtained an x-ray of the right wrist which on my interpretation shows no acute fracture or subluxation. The radiologist does agree. At this point I will place patient in a pretty fabricated wrist splint. He is given Naprosyn for home. He is counseled to ice and elevate this. Impression: 1. Right wrist sprain Lab Data Attestation: I reviewed the patient's lab results. Discharge Plan Triage Chief Complaint: Upper Extremity Injury ED Provider: Jurgen Perez Dx/Rx/DC Orders Instructions: Understanding a Wrist Sprain Prescriptions: New naproxen [Naprosyn] 500 mg tablet 500 mg PO BID PRN (Reason: pain) Qty: 20 0RF No Action Trelegy Ellipta 200-62.5-25 mcg blister with device 1 inh inhalation DAILY Qty: 60 11RF nicotine 21-14-7 mg/24 hr patch, TD daily, sequential See Rx Instructions transdermal .COMPLEX Qty: 56 0RF Rx Instructions: apply 1-21 mg NICOTINE PATCH daily for 28 days; follow with 1-14 mg PATCH daily for 14 days, then 1-7mg PATCH daily for 14 days transdermal gabapentin 600 MG tablet 600 mg PO TID Label Comments: Take one tablet three times a day. omeprazole 20 MG capsule,delayed release(DR/EC) 40 mg PO DAILY Label Comments: TAKE 2 CAPSULES BY MOUTH EVERY DAY 1/2 HOUR BEFORE BREAKFAST sertraline 50 MG tablet 50 mg PO DAILY Label Comments: Take three tablets at bedtime. amitriptyline 100 MG tablet 100 mg PO QHS Label Comments: TAKE 1 TABLET BY MOUTH EVERY DAY ultglwjy-nnp-IW-lycopen-lutein 1 EACH tablet 1 tab PO DAILY divalproex 500 MG tablet,delayed release (DR/EC) 750 mg PO BID Qty: 90 0RF quetiapine 200 MG tablet 200 mg PO QHS levetiracetam 500 MG tablet 1,000 mg PO DAILY albuterol sulfate 90 mcg/actuation HFA aerosol inhaler 2 puff INHALATION Q4H PRN PRN (Reason: sob/wheezing) Qty: 1 11RF amoxicillin-pot clavulanate 875-125 mg tablet 1 tab PO BID Qty: 20 0RF prednisone 10 mg tablet 10 mg PO QDAY Qty: 30 0RF Rx Instructions: take 4 tabs for three days, then 3 tabs for three days, then 2 tabs for three days, then 1 tab for 3 days Primary Care Provider: Priscilla Nixon Referrals: Priscilla Nixon MD [Primary Care Provider] - Disposition Disposition: Home, Self Care
[2022-03-10] MEDS: HYDROcodone Bitartrate/Apap 5/325 Tablet PO (00:01)
[2022-03-10 00:54] VITALS: RESP 16
== END 2022-03-10 00:56 | disposition home or self-care (01) ==
PROVIDERS: Emergency Provider Student in an Organized Health Care Education/Training Program; PCP Internal Medicine; Visit Provider Student in an Organized Health Care Education/Training Program
DX: S63.91XA Sprain of unspecified part of right wrist and hand, initial encounter (principal); J44.9 Chronic obstructive pulmonary disease, unspecified; F31.9 Bipolar disorder, unspecified; X50.0XXA Overexertion from strenuous movement or load, initial encounter; F17.210 Nicotine dependence, cigarettes, uncomplicated; G47.33 Obstructive sleep apnea (adult) (pediatric); K21.9 Gastro-esophageal reflux disease without esophagitis; Z79.52 Long term (current) use of systemic steroids; Z79.1 Long term (current) use of non-steroidal anti-inflammatories (NSAID); Z79.899 Other long term (current) drug therapy
CPT/HCPCS: 73110; 99283

== ENCOUNTER 2022-05-17 19:32 | Inpatient (IN) | payer MEDICARE, MEDICAID, SELFPAY ==
[2022-05-17] VITALS (7 sets, daily range): BP systolic 105–134; BP diastolic 62–98; PULSE 99–117; RESP 18–24; TEMP 36.5–38.6; O2SAT 91–97; BMI 21.5
--- NOTE | 2022-05-17 20:12 | EKG12_ITS ---
Test Reason : DYSRHYTHMIA Blood Pressure : / mmHG Vent. Rate : 109 BPM Atrial Rate : 109 BPM P-R Int : 148 ms QRS Dur : 104 ms QT Int : 324 ms P-R-T Axes : 078 088 067 degrees QTc Int : 436 ms Sinus tachycardia Otherwise normal ECG Confirmed by SHIRLEY ARBOLEDA, MARLON ([id number]), editor newspaper GRICEL LUONG ([id number]) on 05/21/2022 11:55:46 AM Referred By: SHAN Confirmed By:MARLON WATSON MD
--- NOTE | 2022-05-17 20:17 | EX.ED.DYSGE1 ---
HPI History of Present Illness Chief Complaint: Confusion Narrative Narrative: 61-year-old male with history of respiratory failure, sepsis, seizure disorder, encephalopathy, TBI presenting with altered mental status. His gives the history as he is confused. She states that he chronically has respiratory issues. Last time he was treated was about 3 to 4 weeks ago when he was given antibiotics and prednisone. Over the last few days he notes that he is acutely more confused. He was seen in urgent care today after being transported there by his mother. His does not know if they tested him for anything. His states she found him at home confused on the floor. She called EMS. [facility] Medical History Acute respiratory failure Bilateral tennis elbow Bipolar disorder COPD (chronic obstructive pulmonary disease) Depression Encephalopathy GERD (gastroesophageal reflux disease) Hoarseness Left ankle injury Lung nodule Migraine LACEY (obstructive sleep apnea) Pneumonia Sepsis Sleep-related breathing disorder Spinal stenosis Tobacco abuse Traumatic brain injury Home Medications amitriptyline 100 mg tablet 100 mg PO QHS sleep 06/30/19 [History Last Taken 08/21/19] gabapentin 600 mg tablet 600 mg PO TID nerve pain 06/30/19 [History Last Taken 08/22/19 13:00] zpvjflfd-isd-sydzi acid 300 mcg-lycopene 600 mcg-lutein 300 mcg tablet 1 tab PO DAILY supplement 06/30/19 [History Last Taken 08/21/19] omeprazole 20 mg capsule,delayed release 40 mg PO DAILY gerd 06/30/19 [History Last Taken 08/22/19] sertraline 50 mg tablet 50 mg PO DAILY anxiety 06/30/19 [History Last Taken 08/21/19] divalproex 500 mg tablet,delayed release 750 mg PO BID ##90 07/02/19 [Rx Last Taken 08/22/19 08:00] levetiracetam 500 mg tablet 1,000 mg PO DAILY 04/28/20 [History Last Taken Unknown] quetiapine 200 mg tablet 200 mg PO QHS 04/28/20 [History Last Taken Unknown] albuterol sulfate 90 mcg/actuation aerosol inhaler 2 puff inhalation Q4H PRN PRN sob/wheezing ##1 07/09/21 [Rx Last Taken Unknown] amoxicillin 875 mg-potassium clavulanate 125 mg tablet 1 tab PO BID #20 tabs 03/15/22 [Rx Last Taken Unknown] prednisone 10 mg tablet 10 mg PO QDAY #30 tabs 08/28/21 [Rx Last Taken Unknown] fluticasone fur. 200 mcg-umeclid 62.5 mcg-vilant 25 mcg inhalat.powder (Trelegy Ellipta) 1 inh inhalation DAILY #60 ea 09/25/21 [Rx Last Taken Unknown] nicotine 21mg/24hr-14mg/24hr-7mg/24hr daily transderm patches,sequentl See Rx Instructions transdermal .COMPLEX #56 patches 09/25/21 [Rx Last Taken Unknown] naproxen 500 mg tablet (Naprosyn) 500 mg PO BID PRN pain #20 tabs 03/10/22 [Rx Last Taken Unknown] Allergy/AdvReac Type Severity Reaction Status Date / Time dextromethorphan HBr AdvReac Intermediate tachycardia, Verified 05/17/22 19:39 [From NyQuil] feels anxious doxylamine [From NyQuil] AdvReac Intermediate Tachycardia, Verified 05/17/22 19:39 feels anxious pseudoephedrine HCl AdvReac Intermediate Tachycardia, Verified 05/17/22 19:39 [From NyQuil] feels anxious sertraline HCl [From Zoloft] AdvReac Diarrhea Verified 05/17/22 19:39 Family History Father Dementia Alzheimers disease Diabetes Mother Diabetes Surgical History History of hernia repair Social History Smoking Status: Current every day smoker tobacco type: cigarettes Tobacco: How many years used: 30 second hand exposure: Yes alcohol intake: never substance use type: does not use ROS ROS ED Review of Systems ROS Unobtainable: due to mental status EXAM Physical Exam Const Vital Signs: 05/17/22 19:34 05/17/22 19:42 05/17/22 20:18 Temperature 101.4 F H Temperature Source Oral Pulse Rate 117 H Respiratory Rate 18 Respiratory Effort Short of Breath Respiratory Pattern Tachypnea Blood Pressure 134/62 H Blood Pressure Mean 86 Pulse Ox 91 94 Oxygen Delivery Method Room Air Nasal Cannula Nasal Cannula Oxygen Flow Rate (L/min) 2 1 05/17/22 20:34 05/17/22 21:34 05/17/22 22:34 Temperature 101.1 F H 99.7 F H 97.7 F L Temperature Source Oral Oral Oral Pulse Rate 105 H 105 H 103 H Respiratory Rate 21 H 22 H 22 H Respiratory Effort Respiratory Pattern Blood Pressure 124/81 H 120/83 H 114/98 H Blood Pressure Mean 95 95 103 Pulse Ox 97 95 94 Oxygen Delivery Method Nasal Cannula Nasal Cannula Nasal Cannula Oxygen Flow Rate (L/min) 1 1 1 Positive well nourished Constitutional Narrative: Confused General Appearance ED: Negative for pallor HEENT Reports dry mucous membranes Negative for trauma Mouth ED: Yes dry mucous membranes Mouth: dry mucous membranes Eyes PERRL and EOMs intact bilaterally Neck no lymphadenopathy Chest Wall inspection of chest normal Resp normal respiratory effort and clear to auscultation bilaterally Auscultation: Negative for rales, rhonchi or wheezes Cardio regular rhythm Rate: tachycardic GI normal to inspection, nondistended, normoactive bowel sounds Neuro CN's II-XII intact bilaterally Sensorium / Orientation: alert Motor Exam: general weakness Psych Psych Narrative: Confused Skin General Skin Exam: Negative for jaundice or pallor MDM MDM MDM Narrative Medical decision making narrative: 61-year-old male with confusion, fever. I reviewed the medical record and see that he had a chest x-ray done today which showed a lingular pneumonia. He was started on azithromycin and Augmentin for home however these medications were never filled. The came home this afternoon and found him confused on the floor and brought him to the ER. He did have a fever on arrival, he was tachycardic and slightly tachypneic. He does appear to be confused. I obtained an EKG which on my interpretation shows sinus tachycardia with a ventricular rate of 109 bpm without sign of ischemic change or dysrhythmia. Chest x-ray on my interpretation does show increased interstitial markings. The radiologist interprets this and agree. I do not see the lingular infiltrate specifically that was noted on his previous chest x-ray earlier today. Patient was given Rocephin and azithromycin. Blood work was obtained and his CBC showed a leukocytosis of 19.0, hemoglobin hematocrit are stable. Platelets are normal at 349. Renal function appears normal. LFTs are normal. Ammonia level is normal. Lactic acid 1.6. Depakote level in the therapeutic range is 69. Because he was febrile on arrival he was given Tylenol and a liter normal saline. On reevaluation he does appear to be confused still. states that she cannot care for him in this state at home. His fever has improved. Discussed with hospitalist for admission. Impression: 1. Pneumonia 2. Leukocytosis 3. Febrile illness 4. Tachycardia 5. Acute delirium Lab Data Attestation: I reviewed the patient's lab results. Labs: Laboratory Results - last 24 hr 05/17/22 05/17/22 05/17/22 19:45 19:45 19:45 WBC 19.0 H RBC 4.84 Hgb 12.6 L Hct 39.2 L MCV 81.0 MCH 26.0 L MCHC 32.1 RDW Std Deviation 49.8 H RDW Coeff of Aaron 17.2 H Plt Count 349 MPV 9.2 Immature Gran % (Auto) 1.200 H Neut % (Auto) 88.0 H Lymph % (Auto) 4.1 L [place] % (Auto) 6.6 Eos % (Auto) 0.0 Baso % (Auto) 0.1 Absolute Neuts (auto) 16.7 H Absolute Lymphs (auto) 0.78 L Nucleated RBC % 0 PT 15.1 H INR 1.2 APTT 34.0 Sodium 131 L Potassium 4.1 Chloride 99 Carbon Dioxide 27.0 Anion Gap 5 BUN 17 Creatinine 0.91 Estim Creat Clear Calc 79.37 Est GFR (MDRD) Af Amer 110 Est GFR (MDRD) Non-Af 91 BUN/Creatinine Ratio 18.7 Glucose 132 H Lactic Acid Calcium 9.0 Total Bilirubin 0.50 AST 7 L ALT 13 L Alkaline Phosphatase 81 Ammonia Total Creatine Kinase 52 Total Protein 7.2 Albumin 3.0 L Globulin 4.2 Albumin/Globulin Ratio 0.7 L Valproic Acid 05/17/22 05/17/22 05/17/22 19:45 20:30 20:30 WBC RBC Hgb Hct MCV MCH MCHC RDW Std Deviation RDW Coeff of Aaron Plt Count MPV Immature Gran % (Auto) Neut % (Auto) Lymph % (Auto) [place] % (Auto) Eos % (Auto) Baso % (Auto) Absolute Neuts (auto) Absolute Lymphs (auto) Nucleated RBC % PT INR APTT Sodium Potassium Chloride Carbon Dioxide Anion Gap BUN Creatinine Estim Creat Clear Calc Est GFR (MDRD) Af Amer Est GFR (MDRD) Non-Af BUN/Creatinine Ratio Glucose Lactic Acid 1.6 Calcium Total Bilirubin AST ALT Alkaline Phosphatase Ammonia 27.0 Total Creatine Kinase Total Protein Albumin Globulin Albumin/Globulin Ratio Valproic Acid 69 Radiography Diagnostic Testing: Clinical Impression(s) from Imaging Studies Chest X-Ray 05/17/22 20:58 IMPRESSION: Increased interstitial markings may represent edema and/or infection. Electronically Signed: Chester Ramírez MD at 22:07 EST , Discharge Plan Triage Chief Complaint: Confusion ED Provider: Jurgen Perez Dx/Rx/DC Orders Prescriptions: No Action Trelegy Ellipta 200-62.5-25 mcg blister with device 1 inh inhalation DAILY Qty: 60 11RF nicotine 21-14-7 mg/24 hr patch, TD daily, sequential See Rx Instructions transdermal .COMPLEX Qty: 56 0RF Rx Instructions: apply 1-21 mg NICOTINE PATCH daily for 28 days; follow with 1-14 mg PATCH daily for 14 days, then 1-7mg PATCH daily for 14 days transdermal gabapentin 600 MG tablet 600 mg PO TID Label Comments: Take one tablet three times a day. omeprazole 20 MG capsule,delayed release(DR/EC) 40 mg PO DAILY Label Comments: TAKE 2 CAPSULES BY MOUTH EVERY DAY 1/2 HOUR BEFORE BREAKFAST sertraline 50 MG tablet 50 mg PO DAILY Label Comments: Take three tablets at bedtime. amitriptyline 100 MG tablet 100 mg PO QHS Label Comments: TAKE 1 TABLET BY MOUTH EVERY DAY qpferobc-yup-EH-lycopen-lutein 1 EACH tablet 1 tab PO DAILY divalproex 500 MG tablet,delayed release (DR/EC) 750 mg PO BID Qty: 90 0RF quetiapine 200 MG tablet 200 mg PO QHS levetiracetam 500 MG tablet 1,000 mg PO DAILY naproxen [Naprosyn] 500 mg tablet 500 mg PO BID PRN (Reason: pain) Qty: 20 0RF albuterol sulfate 90 mcg/actuation HFA aerosol inhaler 2 puff INHALATION Q4H PRN PRN (Reason: sob/wheezing) Qty: 1 11RF amoxicillin-pot clavulanate 875-125 mg tablet 1 tab PO BID Qty: 20 0RF prednisone 10 mg tablet 10 mg PO QDAY Qty: 30 0RF Rx Instructions: take 4 tabs for three days, then 3 tabs for three days, then 2 tabs for three days, then 1 tab for 3 days Primary Care Provider: Priscilla Nixon Referrals: Priscilla Nixon MD [Primary Care Provider] -
[2022-05-17 20:27] LABS: Absolute Lymphocyte Count 0.78 X10^3/uL (0.83-4.51); Absolute Neutrophil Count 16.7 X10^3/uL (2.0-7.7); Basophil# 0.02 X10^3/uL; Basophil% 0.1 % (0-1); Hematocrit 39.2 % (40-54); Hemoglobin 12.6 g/dL (13.0-16.5); Lymphocyte # 0.78 X10^3/ul (0.83-4.51); Lymphocyte % 4.1 % (19-41); Mean Corp Hgb Conc 32.1 g/dL (32-36); Mean Platelet Vol. 9.2 fl (6.2-12.0); Monocyte# 1.25 X10^3/uL; Monocyte% 6.6 % (0-10); NRBC Flagged by Analyzer 0 % (0-5); Neutrophil # 16.68 X10^3/uL (2.7-7.7); Platelet Count 349 K/mm3 (150-450); RBC Distribution Width CV 17.2 % (11.6-14.6); RBC Distribution Width SD 49.8 fl (35.1-43.9); Red Blood Count 4.84 M/mm3 (4.6-6.2)
[2022-05-17 20:36] LABS: International Normalized Ratio 1.2; Prothrombin Time (Protime)PT. 15.1 SECONDS (11.7-14.9)
[2022-05-17 20:41] LABS: Lactic Acid 1.6 mmol/L (0.4-1.9)
[2022-05-17] MEDS: Acetaminophen 500 MG Tablet 1000 MG PO (20:46)
[2022-05-17] MEDS: 0.9% Normal Saline 1,000 ML 999 ML IV (20:46)
[2022-05-17 20:49] LABS: ALB/GLOB Ratio 0.7 RATIO (0.9-2.4); AST(SGOT) 7 U/L (15-37); Alanine Aminotransfer ALT/SGPT 13 U/L (16-61); Alkaline Phosphatase 81 U/L (45-117); Anion Gap 5 (5-15); BUN 17 mg/dL (7-18); BUN/Creat Ratio 18.7 RATIO (10-20); CPK Total, Creatine Kinase 52 U/L (39-308); Chloride 99 mmol/L (98-107); Creatinine, Serum 0.91 mg/dL (0.70-1.30); EST Glomerular Filtration Rate 91 mL/min (>60); Est Glom Filt Rate - Afr Amer 110 mL/min (>60); Estimated Creatinine Clearance 79.37 ml/min; Globulin 4.2 g/dL (2.2-4.2); Glucose 132 mg/dL (74-106); Potassium 4.1 mmol/L (3.5-5.1); Protein, Total 7.2 g/dL (6.4-8.2); Sodium Level 131 mmol/L (136-145)
--- NOTE | 2022-05-17 20:58 | RAD_ITS ---
INDICATION: cough EXAMINATION/TECHNIQUE: X-RAY - XR Chest 1 View COMPARISON: 08/21/2021. FINDINGS: Increased interstitial markings. The cardiomediastinal silhouette is unremarkable. No pleural effusion or pneumothorax. No acute osseous abnormalities. RAD/Chest 1 View (Portable) IMPRESSION: Increased interstitial markings may represent edema and/or infection. Electronically Signed: Chester Ramírez MD at 22:07 EST ,
[2022-05-17 21:03] LABS: Valproic Acid (Depakene) Level 69 ug/mL (50-100)
--- NOTE | 2022-05-17 23:13 | PCM.HP.STD ---
[facility] - General General Date of Admission: 05/17/22 Date of Service: 05/17/22 Chief Complaint: Found on the floor. HPI Narrative ELIUD BLOUNT, is a 61 M with a significant history of COPD; seizures; and traumatic brain injury who was found on the floor by the dryer at home by patient's . Reportedly patient have had respiratory symptoms since 3 to 4 weeks ago and completed another round of antibiotics and prednisone. The day of presentation patient's mother took him to the urgent care. Reportedly patient was diagnosed with a lingular pneumonia. Azithromycin and Augmentin were prescribed however prescription was not picked up. When patient came back from home he found patient on the floor as above. Reported at the urgent care patient had a fever. Also patient has been confused. [facility] Medical History Acute respiratory failure Bilateral tennis elbow Bipolar disorder COPD (chronic obstructive pulmonary disease) Depression Encephalopathy GERD (gastroesophageal reflux disease) Hoarseness Left ankle injury Lung nodule Migraine LACEY (obstructive sleep apnea) Pneumonia Sepsis Sleep-related breathing disorder Spinal stenosis Tobacco abuse Traumatic brain injury Home Medications amitriptyline 100 mg tablet 100 mg PO QHS sleep 06/30/19 [History Last Taken 08/21/19] gabapentin 600 mg tablet 600 mg PO TID nerve pain 06/30/19 [History Last Taken 08/22/19 13:00] plxhyugr-tpd-rwdqv acid 300 mcg-lycopene 600 mcg-lutein 300 mcg tablet 1 tab PO DAILY supplement 06/30/19 [History Last Taken 08/21/19] omeprazole 20 mg capsule,delayed release 40 mg PO DAILY gerd 06/30/19 [History Last Taken 08/22/19] sertraline 50 mg tablet 50 mg PO DAILY anxiety 06/30/19 [History Last Taken 08/21/19] levetiracetam 500 mg tablet 500 mg PO DAILY Check with primary doctor 04/28/20 [History Last Taken Unknown] quetiapine 200 mg tablet 200 mg PO QHS Check with primary doctor 04/28/20 [History Last Taken Unknown] albuterol sulfate 90 mcg/actuation aerosol inhaler 2 puff inhalation Q4H PRN PRN sob/wheezing ##1 07/09/21 [Rx Last Taken Unknown] naproxen 500 mg tablet (Naprosyn) 500 mg PO BID PRN pain #20 tabs 03/10/22 [Rx Last Taken Unknown] divalproex 500 mg tablet,delayed release 750 mg PO BID Check with primary doctor 05/18/22 [History Last Taken Unknown] fluticasone fur. 200 mcg-umeclid 62.5 mcg-vilant 25 mcg inhalat.powder (Trelegy Ellipta) 1 inh inhalation DAILY Check with primary doctor 05/18/22 [History Last Taken Unknown] Allergy/AdvReac Type Severity Reaction Status Date / Time dextromethorphan HBr AdvReac Intermediate tachycardia, Verified 05/17/22 19:39 [From NyQuil] feels anxious doxylamine [From NyQuil] AdvReac Intermediate Tachycardia, Verified 05/17/22 19:39 feels anxious pseudoephedrine HCl AdvReac Intermediate Tachycardia, Verified 05/17/22 19:39 [From NyQuil] feels anxious sertraline HCl [From Zoloft] AdvReac Diarrhea Verified 05/17/22 19:39 Family History Father Dementia Alzheimers disease Diabetes Mother Diabetes Surgical History History of hernia repair Social History Smoking Status: Current every day smoker tobacco type: cigarettes Tobacco: How many years used: 30 second hand exposure: Yes alcohol intake: never substance use type: does not use ROS ROS Narrative Pertinent positives and pertinent negatives as noted in HPI. All other systems were reviewed and are negative Vital Signs Vital Signs Vital Signs: 05/17/22 19:34 05/17/22 19:42 05/17/22 20:18 Temperature 101.4 F H Temperature Source Oral Pulse Rate 117 H Respiratory Rate 18 Respiratory Effort Short of Breath Respiratory Pattern Tachypnea Blood Pressure 134/62 H Blood Pressure Mean 86 Pulse Ox 91 94 Oxygen Delivery Method Room Air Nasal Cannula Nasal Cannula Oxygen Flow Rate (L/min) 2 1 05/17/22 20:34 05/17/22 21:34 05/17/22 22:34 Temperature 101.1 F H 99.7 F H 97.7 F L Temperature Source Oral Oral Oral Pulse Rate 105 H 105 H 103 H Respiratory Rate 21 H 22 H 22 H Respiratory Effort Respiratory Pattern Blood Pressure 124/81 H 120/83 H 114/98 H Blood Pressure Mean 95 95 103 Pulse Ox 97 95 94 Oxygen Delivery Method Nasal Cannula Nasal Cannula Nasal Cannula Oxygen Flow Rate (L/min) 1 1 1 Weight Weight: 64.2 kg Body Mass Index (BMI) 21.5 Physical Exam Narrative Physical exam: General: Well-nourished, well-developed. Head: Normocephalic, atraumatic, no tenderness Eyes: Vision is grossly intact. EOMI ENT, no trauma, dry mucous membranes. Neck: Nontender, No thyromegaly. CVS: Regular rate and rhythm. S1-S2 present. No murmur, gallop or rub. Respiratory : clear to auscultation bilaterally, chest wall nontender, no wheezing Abdomen: Soft, nontender, nondistended, normal bowel sounds, no masses : Deferred Back: Nontender, no CVA tenderness. Extremities: Nontender full range of motion, no trauma Skin: Normal color, no trauma, abrasions Neuro: Alert, oriented, cranial nerves II through XII grossly intact. Psychiatry: Normal mood. Normal affect. Not depressed. Not anxious. Results Lab / Micro Data Result Diagrams: 05/17/22 19:45 05/17/22 19:45 Labs: Laboratory Results - last 24 hr 05/17/22 19:45: WBC 19.0 H, RBC 4.84, Hgb 12.6 L, Hct 39.2 L, MCV 81.0, MCH 26.0 L, MCHC 32.1, RDW Std Deviation 49.8 H, RDW Coeff of Aaron 17.2 H, Plt Count 349, MPV 9.2, Immature Gran % (Auto) 1.200 H, Neut % (Auto) 88.0 H, Lymph % (Auto) 4.1 L, [place] % (Auto) 6.6, Eos % (Auto) 0.0, Baso % (Auto) 0.1, Absolute Neuts (auto) 16.7 H, Absolute Lymphs (auto) 0.78 L, Nucleated RBC % 0 05/17/22 19:45: PT 15.1 H, INR 1.2, APTT 34.0 05/17/22 19:45: Sodium 131 L, Potassium 4.1, Chloride 99, Carbon Dioxide 27.0, Anion Gap 5, BUN 17, Creatinine 0.91, Estim Creat Clear Calc 79.37, Est GFR (MDRD) Af Amer 110, Est GFR (MDRD) Non-Af 91, BUN/Creatinine Ratio 18.7, Glucose 132 H, Calcium 9.0, Total Bilirubin 0.50, AST 7 L, ALT 13 L, Alkaline Phosphatase 81, Total Creatine Kinase 52, Total Protein 7.2, Albumin 3.0 L, Globulin 4.2, Albumin/Globulin Ratio 0.7 L 05/17/22 19:45: Lactic Acid 1.6 05/17/22 20:30: Ammonia 27.0 05/17/22 20:30: Valproic Acid 69 Micro: Microbiology 05/17/22 20:23 Interface Orders Influenza Types A,B Direct FA (PARAG) - Final 05/17/22 20:23 Nasal Secretion SARS-CoV-2 Antigen (Rapid) - Final 05/17/22 20:23 Interface Orders Rapid RSV (DFA) - Final Radiology Impression Chest X-Ray 05/17/22 20:58 IMPRESSION: Increased interstitial markings may represent edema and/or infection. Electronically Signed: Chester Ramírez MD at 22:07 EST , Assessment & Plan Assessment/Plan (1) Pneumonia: QUALIFIERS: Pneumonia type: due to unspecified organism Laterality: unspecified laterality Lung location: unspecified part of lung Qualified Code(s): J18.9 - Pneumonia, unspecified organism PLAN: Plan Pneumonia Gram-positive, gram-negative or atypical. Lactic acid: 1.6 Patient meets SIRS criteria with T-max on presentation 101.4 Fahrenheit; heart rate more than 90; respiratory rate more than 20. CBC showed white count of 19. There is no organ dysfunction to classify as sepsis. Sepsis ruled out. Chest x-ray on presentation was visualized and independently interpreted. I agree with radiologist interpretation of increased interstitial markings. Blood culture ordered at the ED, follow-up Antibiotics: Started on Rocephin azithromycin the emergency department and continued. Legionella antigen screen and Strep antigen ordered Trend CBC. Acute infectious encephalopathy Ammonia level normal at 27. On Depakote, level normal. Likely secondary to pneumonia. Treatment of pneumonia as above. Dehydration With dry mucous membrane IV fluids ordered. DVT prophylaxis Subcutaneous Lovenox ordered. Charges/Coding Visit Charges Inpatient E&M: 03223 Init Hosp L3
[2022-05-17] MEDS: Ceftriaxone 1 GM/50 ML BAG IV (23:35)
[2022-05-18] VITALS (15 sets, daily range): BP systolic 109–173; BP diastolic 67–92; PULSE 98–112; RESP 17–28; TEMP 36.2–37.2; O2SAT 88–99; BMI 21.2
[2022-05-18 00:32] LABS: Mucous, Urine 0 SEEN /hpf (<or=2+); Squamous Epithelial Cells - UA 0 SEEN /hpf (0-5)
[2022-05-18 00:44] LABS: Color, Urine Yellow (Yellow); Glucose, Dipstick Normal (Normal); Ketone-Dipstick 5 mg/dl (Negative); Leukocyte Esterase-Dipstick 100 /ul (Negative); Nitrite-Dipstick Negative (Negative); Occult Blood-Urine 10 /ul (Negative); Protein-Dipstick 15 mg/dl (Negative); Specific Gravity, Urine 1.015 (1.002-1.030); Urine Bilirubin Dipstick Negative (Negative); Urine Clarity Clear (Clear); Urine Urobilinogen Normal (Normal)
[2022-05-18 00:51] LABS: Bacteria RARE /hpf (None Seen); Red Blood Cells-Urine 0-5 SEEN /hpf (0-5); White Blood Cells 5-10 SEEN /hpf (0-5)
--- NOTE | 2022-05-18 03:30 | NURSING ---
med list marked completed in ER. Pt unsure of what medications he takes.
[2022-05-18] MEDS: Albuterol 2.5 MG/3 ML VIAL.NEB. INHALATION (04:28)
[2022-05-18] MEDS: Gabapentin 600 MG Tablet PO ×3 (05:27→21:31)
[2022-05-18] MEDS: Budesonide Respules 0.5 MG/2 ML AMPUL.NEB. INHALATION ×2 (07:10→19:23)
[2022-05-18] MEDS: Ipratropium/Albuterol Sulfate 3 ML AMPUL.NEB INHALATION ×2 (07:10→19:23)
[2022-05-18 07:30] LABS: Absolute Neutrophil Count 25.2 X10^3/uL (2.0-7.7); Basophil# 0.06 X10^3/uL; Basophil% 0.2 % (0-1); Hematocrit 37.6 % (40-54); Hemoglobin 11.7 g/dL (13.0-16.5); Lymphocyte % 5.2 % (19-41); Mean Corp Hgb Conc 31.1 g/dL (32-36); Mean Corpuscular Hgb 25.6 pg (27.0-32.0); Mean Corpuscular Volume 82.3 fL (80-94); Mean Platelet Vol. 9.1 fl (6.2-12.0); Monocyte# 1.65 X10^3/uL; Monocyte% 5.7 % (0-10); NRBC Flagged by Analyzer 0 % (0-5); Neutrophil % 87.5 % (47-70); POSITIVE DIFFERENTIAL YES; Platelet Count 361 K/mm3 (150-450); RBC Distribution Width CV 17.2 % (11.6-14.6); RBC Distribution Width SD 51.3 fl (35.1-43.9); Red Blood Count 4.57 M/mm3 (4.6-6.2); White Blood Count 28.8 K/mm3 (4.4-11.0)
[2022-05-18 07:35] LABS: Differential Indicated SCAN CRITERIA MET
[2022-05-18 07:58] LABS: Anion Gap 4 (5-15); BUN 14 mg/dL (7-18); BUN/Creat Ratio 20.5 RATIO (10-20); Calcium,Total 8.8 mg/dL (8.5-10.1); Chloride 99 mmol/L (98-107); Creatinine, Serum 0.68 mg/dL (0.70-1.30); EST Glomerular Filtration Rate 126 mL/min (>60); Est Glom Filt Rate - Afr Amer 152 mL/min (>60); Estimated Creatinine Clearance 104.72 ml/min; Glucose 91 mg/dL (74-106); Sodium Level 132 mmol/L (136-145)
[2022-05-18 08:58] LABS: Burr Cells 1+; Hypochromasia RARE; Ovalocyte RARE; Platelet Estimate ADEQUATE (ADEQ); Poikilocytosis RARE
[2022-05-18] MEDS: Ensure Plus High Protein 120 ML LIQUID PO ×2 (09:58→11:43)
[2022-05-18] MEDS: Multivitamins,Ther W-Minerals Tablet 1 TABLET PO (10:02)
[2022-05-18] MEDS: Divalproex Sodium 250 MG Tablet 750 MG PO ×2 (10:02→21:28)
[2022-05-18] MEDS: levETIRAcetam 500 MG Tablet PO (10:03)
[2022-05-18] MEDS: Enoxaparin 40 MG/0.4 ML Syringe SC (10:03)
[2022-05-18] MEDS: guaiFENesin 1,200 MG Tablet 1200 MG PO ×2 (10:03→21:28)
[2022-05-18] MEDS: Sertraline 50 MG Tablet PO (10:04)
[2022-05-18] MEDS: Pantoprazole Sodium 40 MG Tablet PO (10:04)
[2022-05-18] MEDS: FLU VACC QS2022-23(6MOS UP)/PF 60 MCG/0.5 ML SYRINGE IM (12:46)
--- NOTE | 2022-05-18 12:54 | PCM.PN.HOSP ---
Subjective Subjective Patient was seen and examined today, he is on 2 L nasal cannula oxygen presently, he remains confused, patient's white blood cell count this morning was 28.8, temperature currently at the time of this dictation was 98.9. Objective Data Objective Data Vital Signs: Vital Signs Temp Pulse Resp BP Pulse Ox O2 Del Method O2 Flow Rate 98.9 F 102 H 20 H 109/69 98 Nasal Cannula 2 05/18/22 09:52 05/18/22 09:52 05/18/22 09:52 05/18/22 09:52 05/18/22 09:52 05/18/22 09:52 05/18/22 09:52 Oxygen Flow Rate (L/min) 2 Oxygen Delivery Method Nasal Cannula Weight: 63.3 kg Body Mass Index (BMI) 21.2 Intake & Output: Intake and Output for Last 24 Hours 05/16/22 05/17/22 05/18/22 23:59 23:59 23:59 Intake Total 1000 / 1000 755 / 755 Balance 1000 / 1000 755 / 755 Lab / Micro Data Result Diagrams: 05/18/22 06:39 05/18/22 06:39 Labs: Laboratory Results - last 24 hr 05/17/22 19:45: WBC 19.0 H, RBC 4.84, Hgb 12.6 L, Hct 39.2 L, MCV 81.0, MCH 26.0 L, MCHC 32.1, RDW Std Deviation 49.8 H, RDW Coeff of Aaron 17.2 H, Plt Count 349, MPV 9.2, Immature Gran % (Auto) 1.200 H, Neut % (Auto) 88.0 H, Lymph % (Auto) 4.1 L, [place] % (Auto) 6.6, Eos % (Auto) 0.0, Baso % (Auto) 0.1, Absolute Neuts (auto) 16.7 H, Absolute Lymphs (auto) 0.78 L, Nucleated RBC % 0 05/17/22 19:45: PT 15.1 H, INR 1.2, APTT 34.0 05/17/22 19:45: Sodium 131 L, Potassium 4.1, Chloride 99, Carbon Dioxide 27.0, Anion Gap 5, BUN 17, Creatinine 0.91, Estim Creat Clear Calc 79.37, Est GFR (MDRD) Af Amer 110, Est GFR (MDRD) Non-Af 91, BUN/Creatinine Ratio 18.7, Glucose 132 H, Calcium 9.0, Total Bilirubin 0.50, AST 7 L, ALT 13 L, Alkaline Phosphatase 81, Total Creatine Kinase 52, Total Protein 7.2, Albumin 3.0 L, Globulin 4.2, Albumin/Globulin Ratio 0.7 L 05/17/22 19:45: Lactic Acid 1.6 05/17/22 20:30: Ammonia 27.0 05/17/22 20:30: Valproic Acid 69 05/18/22 00:20: Urine Color Yellow, Urine Clarity Clear, Urine pH 6.0, Ur Specific [place] 1.015, Urine Protein 15 H, Urine Glucose (UA) Normal, Urine Ketones 5 H, Urine Occult Blood 10 H, Urine Nitrite Negative, Urine Bilirubin Negative, Urine Urobilinogen Normal, Ur Leukocyte Esterase 100 H, Urine RBC 0-5 SEEN, Urine WBC 5-10 SEEN, Ur Squamous Epith Cells 0 SEEN, Urine Bacteria RARE, Urine Mucus 0 SEEN 05/18/22 06:39: Sodium 132 L, Potassium 4.0, Chloride 99, Carbon Dioxide 29.0, Anion Gap 4 L, BUN 14, Creatinine 0.68 L, Estim Creat Clear Calc 104.72, Est GFR (MDRD) Af Amer 152, Est GFR (MDRD) Non-Af 126, BUN/Creatinine Ratio 20.5 H, Glucose 91, Calcium 8.8 05/18/22 06:39: WBC 28.8 H, RBC 4.57 L, Hgb 11.7 L, Hct 37.6 L, MCV 82.3, MCH 25.6 L, MCHC 31.1 L, RDW Std Deviation 51.3 H, RDW Coeff of Aaron 17.2 H, Plt Count 361, MPV 9.1, Immature Gran % (Auto) 1.400 H, Neut % (Auto) 87.5 H, Lymph % (Auto) 5.2 L, [place] % (Auto) 5.7, Eos % (Auto) 0.0, Baso % (Auto) 0.2, Absolute Neuts (auto) 25.2 H, Absolute Lymphs (auto) 1.50, Nucleated RBC % 0, Diff Path Review May foll, Platelet Estimate ADEQUATE, Hypochromasia RARE, Poikilocytosis RARE, Ovalocytes RARE, [place] Cells 1+ Micro: Microbiology 05/18/22 00:20 Urine, Clean Catch Legionella Antigen - Final 05/18/22 00:20 Urine, Clean Catch Streptococcus pneumoniae Antigen (M - Final 05/17/22 20:23 Interface Orders Influenza Types A,B Direct FA (PARAG) - Final 05/17/22 20:23 Nasal Secretion SARS-CoV-2 Antigen (Rapid) - Final 05/17/22 20:23 Interface Orders Rapid RSV (DFA) - Final Radiography Diagnostic Testing: Radiology Impression Chest X-Ray 05/17/22 20:58 IMPRESSION: Increased interstitial markings may represent edema and/or infection. Electronically Signed: Chester Ramírez MD at 22:07 EST , Physical Exam Const alert and no apparent distress Constitutional Narrative: Patient is alert but confused General Appearance: cooperative, well kempt and well developed Orientation / Consciousness: awake HEENT normocephalic, head/scalp atraumatic and moist oral mucous membranes Eyes PERRL, EOMs intact bilaterally and conjunctivae normal Neck supple, no JVD and thyroid normal General: trachea midline Resp normal respiratory effort, no retractions, no use of accessory muscles and clear to auscultation bilaterally Auscultation: Negative for rales, rhonchi or wheezes Cardio regular rate, regular rhythm, S1 normal heart sound, S2 normal heart sound, no murmurs, no rub and no gallops GI normal to inspection, nondistended, normoactive bowel sounds, soft to palpation, non-tender and non-distended Extremity no clubbing, cyanosis or edema Skin no rashes or lesions noted General Skin Exam: no breakdown Neuro CN's II-XII intact bilaterally, no focal motor deficits and no sensory deficits noted Sensorium / Orientation: awake and alert Speech: speech normal Psych Psych Narrative: Patient is alert but confused Assessment & Plan Assessment/Plan (1) Pneumonia: PLAN: Plan 1. Community-acquired pneumonia-continue present antibiotics, repeat CBC in the morning, repeat chest x-ray tomorrow #2 metabolic encephalopathy-etiology unclear, could be secondary to community-acquired pneumonia, supportive care will be offered #3 chronic obstructive pulmonary disease-patient will remain on his present medications #4 seizure disorder-patient is on Keppra #5 bipolar disorder-patient is currently on Zoloft and Seroquel Charges/Coding Visit Charges Inpatient E&M: 96663 Subs Hosp L2
--- NOTE | 2022-05-18 13:40 | CASEMGMT ---
RN [employer] CM placed call to pt's for initial transition planning/care coordination assessment d/t pt w/confusion. JULIETTE SHARP introduced self and role at [facility].? voices understanding and consents to assessment at this time. Care providers, pharmacy, and demographics verified/updated at this time.? PCP:?Dr Nixon Specialists:?Dr Dick-pulmonology, Margaret Neuro-Radha Jacob, CARL Preferred Pharmacy:?[facility] [place], [place] Insurance:?[employer], [employer] Prescription Benefit:?Yes? LNOK:?, [place] Living Arrangements:?Lives w/ and 2 children, ages 22 and 15. Independent w/ADL's. manages medications and appts. They share home tasks. Transportation:? states pt can still drive, but she prefers to, so she drives most of the time. DME: Pt has the following DME:?pulse ox, nebulizer. Pt used to have a PAP, but unable to tolerate it, so does not have it anymore. Pt does not have Home O2. made aware of DME choices and made aware [facility] is affiliated w/[facility]. chooses [facility]. HHC/SNF:?No hx of either. wishes for pt to return home and states has no concerns with going home at time of discharge. voices no further concerns/needs at this time.? PLAN:??Home w/. Green sheet on chart for O2, should pt qualify for Home O2 @ d/c. Koby OSEIN JULIETTE SHARP?
[2022-05-18] MEDS: 0.9% Saline Lock 10 ML Syringe IV (21:27)
[2022-05-18] MEDS: Ceftriaxone 1 GM/50 ML BAG IV (21:28)
[2022-05-18] MEDS: Amitriptyline 100 MG Tablet PO (21:28)
[2022-05-18] MEDS: QUEtiapine 100 MG Tablet 200 MG PO (21:29)
--- NOTE | 2022-05-19 00:15 | NURSING ---
pt was sleeping & had removed O2 - O2 reapplied @ 2L
[2022-05-19 03:00] VITALS: BP 109/67; PULSE 101; RESP 20; TEMP 36.2; O2SAT 93
[2022-05-19 04:00] VITALS: BP 98/68; PULSE 88; RESP 18; TEMP 36.3; O2SAT 92
[2022-05-19] MEDS: Gabapentin 600 MG Tablet PO (05:58)
[2022-05-19] MEDS: Budesonide Respules 0.5 MG/2 ML AMPUL.NEB. INHALATION (07:18)
[2022-05-19] MEDS: Ipratropium/Albuterol Sulfate 3 ML AMPUL.NEB INHALATION (07:18)
[2022-05-19 07:20] VITALS: PULSE 95; RESP 22; O2SAT 93
[2022-05-19 08:41] LABS: Absolute Lymphocyte Count 1.29 X10^3/uL (0.83-4.51); Absolute Neutrophil Count 11.1 X10^3/uL (2.0-7.7); Basophil# 0.02 X10^3/uL; Basophil% 0.2 % (0-1); Eosinophils% 0.8 % (0-5); Hematocrit 35.1 % (40-54); Hemoglobin 11.1 g/dL (13.0-16.5); Lymphocyte # 1.29 X10^3/ul (0.83-4.51); Lymphocyte % 9.8 % (19-41); Mean Corp Hgb Conc 31.6 g/dL (32-36); Mean Corpuscular Hgb 25.9 pg (27.0-32.0); Mean Corpuscular Volume 81.8 fL (80-94); Mean Platelet Vol. 8.7 fl (6.2-12.0); Monocyte# 0.65 X10^3/uL; Monocyte% 4.9 % (0-10); NRBC Flagged by Analyzer 0 % (0-5); Neutrophil # 11.07 X10^3/uL (2.7-7.7); Neutrophil % 83.8 % (47-70); Platelet Count 310 K/mm3 (150-450); RBC Distribution Width CV 17.2 % (11.6-14.6); RBC Distribution Width SD 51.4 fl (35.1-43.9); Red Blood Count 4.29 M/mm3 (4.6-6.2); White Blood Count 13.2 K/mm3 (4.4-11.0)
[2022-05-19] MEDS: Multivitamins,Ther W-Minerals Tablet 1 TABLET PO (08:50)
[2022-05-19] MEDS: Ensure Plus High Protein 120 ML LIQUID PO (08:50)
[2022-05-19 08:52] VITALS: BP 110/69; BP 114/76; PULSE 88; PULSE 90; RESP 18; TEMP 36.6; O2SAT 93; O2SAT 94
[2022-05-19 09:06] VITALS: O2SAT 89; O2SAT 94
--- NOTE | 2022-05-19 09:33 | DCINST_ITS ---
Discharge Instructions Diet Discharge Diet: No restrictions Activity Discharge Activity: Return to Normal Activity Weight Bearing Status: Full weight bearing Follow Up Care Test Results: Test results from this visit will be discussed in further detail at your follow- up appointment, if applicable. Discharge Plan Admission Admit Date/Time: 05/17/22 23:02 Primary Reason for Your Visit: pneumonia Attending Provider: Kvng Hernandez Primary Care Provider: Priscilla Nixon Consulting Providers: Rex Bernard Discharge Orders/Prescriptions Prescriptions: New levofloxacin 500 mg tablet 500 mg PO DAILY Qty: 7 0RF Rx Instructions: take one daily starting 05/19/22 Continued gabapentin 600 MG tablet 600 mg PO TID Label Comments: Take one tablet three times a day. omeprazole 20 MG capsule,delayed release(DR/EC) 40 mg PO DAILY Label Comments: TAKE 2 CAPSULES BY MOUTH EVERY DAY 1/2 HOUR BEFORE BREAKFAST sertraline 50 MG tablet 50 mg PO DAILY Label Comments: Take three tablets at bedtime. amitriptyline 100 MG tablet 100 mg PO QHS Label Comments: TAKE 1 TABLET BY MOUTH EVERY DAY ejntlsqd-qdb-ZW-lycopen-lutein 1 EACH tablet 1 tab PO DAILY quetiapine 200 MG tablet 200 mg PO QHS levetiracetam 500 MG tablet 500 mg PO DAILY naproxen [Naprosyn] 500 mg tablet 500 mg PO BID PRN (Reason: pain) Qty: 20 0RF divalproex 500 MG tablet,delayed release (DR/EC) 750 mg PO BID Trelegy Ellipta 200-62.5-25 mcg blister with device 1 inh inhalation DAILY albuterol sulfate 90 mcg/actuation HFA aerosol inhaler 2 puff INHALATION Q4H PRN PRN (Reason: sob/wheezing) Qty: 1 11RF Referrals / Follow Up: Priscilla Nixon MD [Primary Care Provider] - Within 2 Weeks Disposition Disposition (needs filled in before D/C Order can be placed): Home, Self Care
--- NOTE | 2022-05-19 09:37 | DS.PCM_ITS ---
Providers Date of Admission: 05/17/22 Date of Discharge: 05/19/22 Primary Care Physician: Dr. Priscilla Nixon MD Reason For Visit: PNEUMONIA Diagnosis Discharge Diagnosis (1) Pneumonia: Status: Inactive Code(s): J18.9 - Pneumonia, unspecified organism Plan 1. Community-acquired pneumonia-continue present antibiotics, repeat CBC in the morning, repeat chest x-ray tomorrow #2 metabolic encephalopathy-etiology unclear, could be secondary to community- acquired pneumonia, supportive care will be offered #3 chronic obstructive pulmonary disease-patient will remain on his present medications #4 seizure disorder-patient is on Keppra #5 bipolar disorder-patient is currently on Zoloft and Seroquel #6 hypoxia secondary to #1 Medications at Discharge Home Medications amitriptyline 100 mg tablet 100 mg PO QHS sleep 06/30/19 gabapentin 600 mg tablet 600 mg PO TID nerve pain 06/30/19 ubmmvqxt-bri-qqujr acid 300 mcg-lycopene 600 mcg-lutein 300 mcg tablet 1 tab PO DAILY supplement 06/30/19 omeprazole 20 mg capsule,delayed release 40 mg PO DAILY gerd 06/30/19 sertraline 50 mg tablet 50 mg PO DAILY anxiety 06/30/19 levetiracetam 500 mg tablet 500 mg PO DAILY Check with primary doctor 04/28/20 quetiapine 200 mg tablet 200 mg PO QHS Check with primary doctor 04/28/20 albuterol sulfate 90 mcg/actuation aerosol inhaler 2 puff inhalation Q4H PRN PRN sob/wheezing ##1 07/09/21 naproxen 500 mg tablet (Naprosyn) 500 mg PO BID PRN pain #20 tabs 03/10/22 divalproex 500 mg tablet,delayed release 750 mg PO BID Check with primary doctor 05/18/22 fluticasone fur. 200 mcg-umeclid 62.5 mcg-vilant 25 mcg inhalat.powder (Trelegy Ellipta) 1 inh inhalation DAILY Check with primary doctor 05/18/22 levofloxacin 500 mg tablet 500 mg PO DAILY #7 tabs 05/19/22 Hospital Course Operations None Procedures None Summary of Care Provided Minutes Spent on Discharge: 31 Hospital Course: This 61-year-old white male was seen in the emergency room at [facility] with complaints of confusion, he had been seen in urgent care after being transported there by his mother, he returned home but his found him confused on the floor of his home. He was brought in by squad. Work-up in the emergency room included a chest x-ray which showed evidence of pneumonia, reymundo hassan's white blood cell count was elevated at 19,000, EKG showed a sinus tachycardia without evidence of ischemic changes, renal function was normal, ammonia level was normal, lactic acid was 1.6. Patient was given IV fluids and IV antibiotics, he was admitted to [place] [address] for pneumonia and encephalopathy, patient initially required low-flow nasal cannula oxygen, on 05/18/2022, labs showed an increased white blood cell count at 28,000, CBC was repeated on 05/19/2022 and the white count dropped to 13.2. Patient was seen and examined on 05/19/2022, he appeared alert and appropriate, he did not require any supplemental oxygen. On examination he appeared in good health and spirits. Vital signs as documented. Skin warm and dry and without overt rashes. Neck without JVD, neck was supple, trachea midline, thyroid was normal. Lungs clear bilaterally, normal air movement was noted. Heart exam notable for regular rhythm, normal sounds and absence of murmurs, rubs or gallops. Abdomen unremarkable and without evidence of organomegaly, masses, or abdominal aortic enlargement. Bowel sounds are present, abdomen is not distended. Extremities nonedematous, no cyanosis was noted, no clubbing was noted. Neuro: Cranial nerves II through XII are grossly intact, no focal motor deficits were noted, sensation to light touch and pinprick intact, motor exam 5/5 throughout. Psych: Patient is alert and oriented x3, he does not appear anxious or depressed, he does not appear agitated. Patient was felt to be stable for discharge home on 05/19/2022 Weight / BMI Weight Weight: 63.3 kg Body Mass Index (BMI) 21.2 ABG / Lab / Microbiology Data Result Diagrams: 05/19/22 08:33 05/18/22 06:39 Laboratory: Laboratory Results - last 24 hr 05/19/22 08:33: WBC 13.2 H, RBC 4.29 L, Hgb 11.1 L, Hct 35.1 L, MCV 81.8, MCH 25.9 L, MCHC 31.6 L, RDW Std Deviation 51.4 H, RDW Coeff of Aaron 17.2 H, Plt Count 310, MPV 8.7, Immature Gran % (Auto) 0.500, Neut % (Auto) 83.8 H, Lymph % (Auto) 9.8 L, [place] % (Auto) 4.9, Eos % (Auto) 0.8, Baso % (Auto) 0.2, Absolute Neuts (auto) 11.1 H, Absolute Lymphs (auto) 1.29, Nucleated RBC % 0 Microbiology: Microbiology 05/18/22 00:20 Urine, Clean Catch Legionella Antigen - Final 05/18/22 00:20 Urine, Clean Catch Streptococcus pneumoniae Antigen (M - Final 05/17/22 20:23 Interface Orders Influenza Types A,B Direct FA (PARAG) - Final 05/17/22 20:23 Nasal Secretion SARS-CoV-2 Antigen (Rapid) - Final 05/17/22 20:23 Interface Orders Rapid RSV (DFA) - Final D/C Instructions Discharge Diet: No restrictions Weight Bearing Status: Full weight bearing Meaningful Use Info Meaningful Use Diagnoses (Choose all that apply): None applicable Discharge Plan Admission Admit Date/Time: 05/17/22 23:02 Primary Reason for Your Visit: pneumonia Attending Provider: Kvng Hernandez Primary Care Provider: Priscilla Nixon Consulting Providers: Rex Bernard Discharge Orders/Prescriptions Prescriptions: New levofloxacin 500 mg tablet 500 mg PO DAILY Qty: 7 0RF Rx Instructions: take one daily starting 05/19/22 Continued gabapentin 600 MG tablet 600 mg PO TID Label Comments: Take one tablet three times a day. omeprazole 20 MG capsule,delayed release(DR/EC) 40 mg PO DAILY Label Comments: TAKE 2 CAPSULES BY MOUTH EVERY DAY 1/2 HOUR BEFORE BREAKFAST sertraline 50 MG tablet 50 mg PO DAILY Label Comments: Take three tablets at bedtime. amitriptyline 100 MG tablet 100 mg PO QHS Label Comments: TAKE 1 TABLET BY MOUTH EVERY DAY gaxfocmo-mux-FY-lycopen-lutein 1 EACH tablet 1 tab PO DAILY quetiapine 200 MG tablet 200 mg PO QHS levetiracetam 500 MG tablet 500 mg PO DAILY naproxen [Naprosyn] 500 mg tablet 500 mg PO BID PRN (Reason: pain) Qty: 20 0RF divalproex 500 MG tablet,delayed release (DR/EC) 750 mg PO BID Trelegy Ellipta 200-62.5-25 mcg blister with device 1 inh inhalation DAILY albuterol sulfate 90 mcg/actuation HFA aerosol inhaler 2 puff INHALATION Q4H PRN PRN (Reason: sob/wheezing) Qty: 1 11RF Referrals / Follow Up: Priscilla Nixon MD [Primary Care Provider] - Within 2 Weeks Disposition Disposition (needs filled in before D/C Order can be placed): Home, Self Care Charges/Coding Visit Charges Inpatient E&M: 48622 Disch Hosp
[2022-05-19] MEDS: Divalproex Sodium 250 MG Tablet 750 MG PO (10:09)
[2022-05-19] MEDS: Pantoprazole Sodium 40 MG Tablet PO (10:09)
[2022-05-19] MEDS: Sertraline 50 MG Tablet PO (10:10)
[2022-05-19] MEDS: levETIRAcetam 500 MG Tablet PO (10:10)
[2022-05-19] MEDS: guaiFENesin 1,200 MG Tablet 1200 MG PO (10:10)
[2022-05-19] MEDS: Enoxaparin 40 MG/0.4 ML Syringe SC (10:10)
[2022-05-19 11:44] VITALS: BP 114/76; PULSE 88; RESP 18; TEMP 36.6; O2SAT 93
[2022-05-20 14:19] LABS: Pathologist Review Reviewed
== END 2022-05-19 12:09 | disposition home or self-care (01) | DRG 193 ==
LOC: ED 23:20 → MS3 05-18 00:37
PROVIDERS: Admitting Provider Hospitalist; Emergency Provider Student in an Organized Health Care Education/Training Program; PCP Internal Medicine; Visit Provider Internal Medicine
DX: J18.9 Pneumonia, unspecified organism (principal); G93.41 Metabolic encephalopathy; J44.0 Chronic obstructive pulmonary disease with (acute) lower respiratory infection; G40.909 Epilepsy, unspecified, not intractable, without status epilepticus; F31.9 Bipolar disorder, unspecified; F17.210 Nicotine dependence, cigarettes, uncomplicated; E86.0 Dehydration; Z81.8 Family history of other mental and behavioral disorders; R09.02 Hypoxemia; Z87.820 Personal history of traumatic brain injury; Z23 Encounter for immunization
CPT/HCPCS: 36415; 71045; 80048; 80053; 80164; 81001; 82140; 82550; 83605; 85025; 85610; 85730; 87040; 87077; 87086; 87088; 87186; 87449; 87804; 87807; 87811; 93005; 94640; 99285; 99406; G0008; J7030; J7050; 90686; A4216

== ENCOUNTER → 2022-10-03 | Outpatient (CLI) | payer MEDICARE, MEDICAID, SELFPAY ==
--- NOTE | 2022-10-03 13:37 | CT_ITS ---
ACR Level 3 findings have been noted. An addendum which confirms receipt of the report will follow. STUDY: CT CHEST WITHOUT CONTRAST- LOW DOSE SCREENING PROTOCOL REASON FOR EXAM: Male, 62 years old. Tobacco Dependency pack per year history. No current symptoms of lung cancer or pulmonary infection. Shared decision-making with referring PCP documented in patient''s record. RADIATION DOSAGE (If Supplied By Facility): CTDIvol = ( 1.59 ) mGy, DLP = ( 59.17 ) mGycm TECHNIQUE: Low dose screening CT examination performed from the base of the neck to the upper abdomen. Sagittal and coronal reformatted images performed. Sagittal and coronal MIP images provided. The measurements provided are average, rounded measurements per ACR guidelines. Individualized dose optimization techniques were used for this CT. COMPARISON: 10/01/2021. FINDINGS: Diffuse emphysematous changes of the lungs again noted. There are scattered fibronodular densities throughout the right lung as well as calcified and noncalcified bilateral pulmonary nodules, unchanged from prior exam, aside from a few new nodules: -9 mm spiculated solid nodule in the superior aspect of the right lower lobe (image 89, series 2). -7 mm solid nodule in the left lung apex (image 44, series 2). There is no demonstrated pleural abnormality. Normal heart and pericardium. There are calcifications of the coronary arteries. Normal mediastinum. Normal hilar regions. Normal unenhanced pulmonary arteries. There is atherosclerotic calcification of the aortic arch with tortuosity and elongation of the aortic arch and descending thoracic aorta. There are multi-level degenerative changes of the thoracic spine. There is no demonstrated abnormality of the visualized upper abdomen. CT/Low Dose CT Lung Screening IMPRESSION: 9 mm spiculated nodule in the superior aspect of the right lower lobe is more conspicuous on today''s examination then compared to prior. 7 mm new solid nodule in the left lung apex. Remainder of examination is stable including the fibronodular scarring seen mostly in the right lung. ASSESSMENT CATEGORY: LUNG-RADS 4A: Suspicious. Recommend follow up LDCT in 3 months. PET/CT may be used if there is an 8 mm or larger solid component. Electronically Signed: Chester aRmírez MD at 0:17 EDT ,
== END | disposition home or self-care (01) ==
PROVIDERS: PCP Internal Medicine; Referring Provider Internal Medicine Critical Care Medicine; Visit Provider Internal Medicine Critical Care Medicine
DX: Z87.891 Personal history of nicotine dependence (principal)
CPT/HCPCS: 71271

== ENCOUNTER → 2023-01-11 | Outpatient (CLI) | payer MEDICARE, MEDICAID, SELFPAY ==
--- NOTE | 2023-01-11 10:09 | CT_ITS ---
INDICATION: Lung Nodule EXAMINATION: CT CHEST WITHOUT CONTRAST - CT Chest W/O Contrast Injection TECHNIQUE: Helically acquired images were obtained of the chest. A radiation dose optimization technique was used for this scan. IV Contrast dosage and agent: None. COMPARISON: 10/03/2022 FINDINGS: LUNGS, PLEURA AND LARGE AIRWAYS: Mild bilateral apical scarring. Moderate emphysema. Interval resolution of the 9 mm spiculated nodule in the superior segment the right lower lobe consistent with resolved atelectasis or pneumonitis. Interval resolution of the nodule in the periphery of the left upper lobe as well. No new noncalcified nodule or mass. No change in other small nodules scarring. No pleural effusion or thickening. No pneumothorax. THYROID: No thyroid lesions. HEART AND PERICARDIUM: Heart size is normal. No pericardial effusion. CORONARY ARTERIES: Coronary artery calcification is seen. VESSELS: Thoracic aorta is not dilated. MEDIASTINUM AND ANA LUISA: No mediastinal or hilar adenopathy. Esophagus is unremarkable. No hiatal hernia. UPPER ABDOMEN: No acute pathology. BONES: No suspicious lytic or blastic abnormality. CT/Chest without Contrast IMPRESSION: Moderate emphysema with interval resolution previous lesion noted nodules. Follow-up low dose screening CT is recommended in 12 months from the date of last CT in September 2023. Electronically Signed: Don Loera MD at 20:09 EDT ,
== END | disposition home or self-care (01) ==
LOC: CT 10:07
PROVIDERS: PCP Internal Medicine; Referring Provider Internal Medicine Critical Care Medicine; Visit Provider Internal Medicine Critical Care Medicine
DX: R91.1 Solitary pulmonary nodule (principal)
CPT/HCPCS: 71250

== ENCOUNTER 2023-04-28 10:22 | Emergency (ER) | payer MEDICARE, MEDICAID, SELFPAY ==
[2023-04-28 10:22] VITALS: BP 114/80; PULSE 98; RESP 18; TEMP 36.4; O2SAT 98; BMI 19.7
--- NOTE | 2023-04-28 10:59 | EDS_ITS ---
HPI History of Present Illness Chief Complaint: Laceration Informant: patient Onset/Context/Timing Onset: Hours (3) Context: Sudden Onset Timing: Continuous Quality of Pain: - (sore) Location: R thumb Current Severity: Mild Maximum Severity: Moderate Worsened by: palpation Relieved by: leaving alone Associated Symptoms Associated Symptoms: Negative for Parasthesia, Weakness or Loss of Funtion Narrative Narrative: Patient states he was getting a window scraper out and the razor on it accidentally cut him in the right thumb. He states I could feel it, it went down to the bone. He denies any loss of function. No major bleeding. Tetanus Immunization: >10 years [facility] Medical History (Updated 04/28/23 @ 11:[address] Mack Burrows MD) Acute respiratory failure Bilateral tennis elbow Bipolar disorder COPD (chronic obstructive pulmonary disease) Depression Encephalopathy GERD (gastroesophageal reflux disease) Hoarseness Left ankle injury Lung nodule Migraine LACEY (obstructive sleep apnea) Pneumonia Pneumonia Pneumonia Sepsis Sleep-related breathing disorder Spinal stenosis Tobacco abuse Traumatic brain injury Home Medications amitriptyline 100 mg tablet 100 mg PO QHS sleep 06/30/19 [History Last Taken 08/21/19] gabapentin 600 mg tablet 600 mg PO TID nerve pain 06/30/19 [History Last Taken 08/22/19 13:00] brcuqvkw-yl-ceozy 300 mcg-K 60 mcg-lycop 600 mcg-lutein 300 mcg tablet 1 tab PO DAILY supplement 06/30/19 [History Last Taken 08/21/19] omeprazole 20 mg capsule,delayed release 40 mg PO DAILY gerd 06/30/19 [History Last Taken 08/22/19] sertraline 50 mg tablet 50 mg PO DAILY anxiety 06/30/19 [History Last Taken 08/21/19] levetiracetam 500 mg tablet 500 mg PO DAILY Check with primary doctor 04/28/20 [History Last Taken Unknown] quetiapine 200 mg tablet 200 mg PO QHS Check with primary doctor 04/28/20 [History Last Taken Unknown] albuterol sulfate 90 mcg/actuation aerosol inhaler 2 puff inhalation Q4H PRN PRN sob/wheezing ##1 07/09/21 [Rx Last Taken Unknown] naproxen 500 mg tablet (Naprosyn) 500 mg PO BID PRN pain #20 tabs 03/10/22 [Rx Last Taken Unknown] divalproex 500 mg tablet,delayed release 750 mg PO BID Check with primary doctor 05/18/22 [History Last Taken Unknown] fluticasone fur. 200 mcg-umeclid 62.5 mcg-vilant 25 mcg inhalat.powder (Trelegy Ellipta) 1 inh inhalation DAILY Check with primary doctor 05/18/22 [History Last Taken Unknown] levofloxacin 500 mg tablet 500 mg PO DAILY #7 tabs 05/19/22 [Rx Last Taken Unknown] albuterol sulfate 90 mcg/actuation aerosol inhaler 2 puff inhalation Q4H PRN shortness of breath or wheezing #8.5 grams 09/10/22 [Rx Last Taken Unknown] fluticasone fur. 200 mcg-umeclid 62.5 mcg-vilant 25 mcg inhalat.powder (Trelegy Ellipta) 1 inh inhalation DAILY #60 ea 09/10/22 [Rx Last Taken Unknown] Allergy/AdvReac Type Severity Reaction Status Date / Time dextromethorphan HBr AdvReac Intermediate tachycardia, Verified 04/28/23 10:22 [From NyQuil] feels anxious doxylamine [From NyQuil] AdvReac Intermediate Tachycardia, Verified 04/28/23 10:22 feels anxious pseudoephedrine HCl AdvReac Intermediate Tachycardia, Verified 04/28/23 10:22 [From NyQuil] feels anxious sertraline HCl [From Zoloft] AdvReac Diarrhea Verified 04/28/23 10:22 Family History Father Dementia Alzheimers disease Diabetes Mother Diabetes Surgical History History of hernia repair Social History Smoking Status: Current every day smoker tobacco type: cigarettes Tobacco: How many years used: 30 second hand exposure: Yes alcohol intake: never substance use type: does not use ROS ROS ED Constitutional Constitutional ED: Denies chills or fever(s) Musculoskeletal Musculoskeletal: Reports extremity pain; Denies neck pain Integumentary Reports laceration and wounds; Denies Abrasions or rash Neurologic Neurologic: Denies paresthesias or weakness EXAM Physical Exam Const Vital Signs: 11/13/23 10:22 Temperature 97.6 F L Temperature Source Temporal Pulse Rate 98 Respiratory Rate 18 Blood Pressure 114/80 Blood Pressure Mean 91 Pulse Ox 98 Oxygen Delivery Method Room Air Positive well nourished and well developed General Appearance ED: well developed and NAD Neck full ROM and supple Back/Spine normal ROM and normal to inspection Extremity full ROM Extremity Narrative: Laceration to the dorsum of the right thumb, it is over the IPJ, it is more to the radial aspect and not over the center of it. Extensor mechanism is all intact, full range of motion to the IPJ and MCPJ, able to oppose without difficulty. Neuro oriented x3, no focal motor deficits and no sensory deficits noted Sensorium / Orientation: alert Psych mental status grossly normal and thought process normal Skin Skin Narrative: 2.5 cm laceration full-thickness without active bleeding over the dorsum of the right thumb. Linear, clean appearing. Rashes: no rashes MDM MDM MDM Narrative Medical decision making narrative: Three-view x-ray series of the right thumb on my interpretation show no bony involvement or residual foreign body. Laceration was anesthetized, thoroughly cleansed and sutured, while performing the procedure I inspected the area, I can see part of the extensor tendon complex, it is possible that he has pressure injury to it but not the central slip, and the skin is barely able to be se parated in order to visualize this that I do not think it is worth attempting to repair or visualize further. I attempted to visualize the area while placing the patient IPJ through flexion and extension, but I do not see any definitive evidence of a tendon injury. Therefore I am allowing him to use his finger as able, as he is not having any difficulty in doing so, we discussed when to return or follow-up for suture removal. His tetanus was updated. Procedures Lacerations Right thumb: Length: 2.5 cm Depth: Sub Q Shape: Linear Prep: Sterile Conditions and Chlorhexadine Laceration repair: Lidocaine (1%, 2 cc), Local and Skin sutures Irrigated (ml): 60 Number of Sutures/Sherie: 5 Suture Information: Ethilon, Simple and 5-0 Discharge Plan Triage Chief Complaint: Laceration ED Provider: Mack Burrows Dx/Rx/DC Orders Clinical Impression: Zisxapecnl-ztniaygdr-gxxjoky (DPT) vaccination administered at current visit, Laceration of right thumb Instructions: ED Laceration, Hand: All Closures Prescriptions: No Action Trelegy Ellipta 200-62.5-25 mcg blister with device 1 inh inhalation DAILY Qty: 60 11RF albuterol sulfate 90 mcg/actuation HFA aerosol inhaler 2 puff inhalation Q4H PRN (Reason: shortness of breath or wheezing) Qty: 8.5 11RF Rx Instructions: administer with spacer gabapentin 600 MG tablet 600 mg PO TID Patient Comments: Take one tablet three times a day. omeprazole 20 MG capsule,delayed release(DR/EC) 40 mg PO DAILY Patient Comments: TAKE 2 CAPSULES BY MOUTH EVERY DAY 1/2 HOUR BEFORE BREAKFAST sertraline 50 MG tablet 50 mg PO DAILY Patient Comments: Take three tablets at bedtime. amitriptyline 100 MG tablet 100 mg PO QHS Patient Comments: TAKE 1 TABLET BY MOUTH EVERY DAY [id number] 1 EACH tablet 1 tab PO DAILY quetiapine 200 MG tablet 200 mg PO QHS levetiracetam 500 MG tablet 500 mg PO DAILY naproxen [Naprosyn] 500 mg tablet 500 mg PO BID PRN (Reason: pain) Qty: 20 0RF divalproex 500 MG tablet,delayed release (DR/EC) 750 mg PO BID Trelegy Ellipta 200-62.5-25 mcg blister with device 1 inh inhalation DAILY levofloxacin 500 mg tablet 500 mg PO DAILY Qty: 7 0RF Rx Instructions: take one daily starting 05/19/22 albuterol sulfate 90 mcg/actuation HFA aerosol inhaler 2 puff INHALATION Q4H PRN PRN (Reason: sob/wheezing) Qty: 1 11RF Primary Care Provider: Priscilla Nixon Referrals: Priscilla Nixon MD [Primary Care Provider] - 10-14 Days suture removal Disposition Disposition: Home, Self Care
--- NOTE | 2023-04-28 11:05 | RAD_ITS ---
STUDY: X-RAY - RIGHT HAND, ATTENTION RIGHT THUMB. REASON FOR EXAM: Male, 62 years old. Injury -- thumb TECHNIQUE: 3 view(s) of the finger were obtained. COMPARISON: None. FINDINGS: Questionable tiny avulsion at the base of the first metacarpal. Normal metacarpophalangeal joint. Normal proximal phalanx. Normal distal phalanx. Normal distal interphalangeal joint. RAD/Finger(s) Min 2 Views IMPRESSION: Questionable tiny avulsion at the base of the first metacarpal. Electronically Signed: Bijan Oliveira MD at 11:28 EST ,
[2023-04-28] MEDS: Lidocaine 1% (20 ml mdv) 20 ML Vial INFILT (11:23)
[2023-04-28] MEDS: Diphth,Pertuss(Acell),Tet Vac 0.5 ML Vial IM (11:23)
== END 2023-04-28 12:44 | disposition home or self-care (01) ==
PROVIDERS: Emergency Provider Emergency Medicine; PCP Internal Medicine; Visit Provider Emergency Medicine
DX: S61.011A Laceration without foreign body of right thumb without damage to nail, initial encounter (principal); J44.9 Chronic obstructive pulmonary disease, unspecified; F17.210 Nicotine dependence, cigarettes, uncomplicated; Z23 Encounter for immunization; W25.XXXA Contact with sharp glass, initial encounter
CPT/HCPCS: 12001; 73140; 90471; 90715; 99283

== ENCOUNTER → 2023-09-26 | Outpatient (CLI) | payer MEDICARE, MEDICAID, SELFPAY | END | disposition home or self-care (01) | PROVIDERS: PCP Internal Medicine; Visit Provider Nurse Practitioner Acute Care | DX: J44.1 Chronic obstructive pulmonary disease with (acute) exacerbation (principal) | CPT/HCPCS: 94060; 94726; 94729 ==

== ENCOUNTER → 2023-10-06 | Outpatient (CLI) | payer MEDICARE, MEDICAID, SELFPAY ==
[2023-10-06 12:51] VITALS: PULSE 100; PULSE 101; PULSE 102; PULSE 105; PULSE 90; PULSE 97; O2SAT 93; O2SAT 94; O2SAT 95; O2SAT 96
--- NOTE | 2023-10-08 10:40 | WT_ITS ---
PSN 6 Minute Walk Test 6 Minute Walk Test 6 Minute Walk Test: 6 Minute Walk Test PSN:6-Minute Walk Test Start: 10/06/23 12:51 Freq: Status: Active Protocol: [id number].[id number] Document 10/06/23 12:51 [place] (Rec: 10/06/23 12:55 [place] Desktop) 6 Minute Walk Test Date Performed 10/06/23 Time Performed 12:30 Height 5 ft 8 in Weight: 135 lb Weight in Pounds 135.[address]: Tammy Stone [employer] Assistive device used: None Pre-test Oxygen Delivery Method Room Air Pulse Ox 96 Pulse Rate (60-100) 90 Dyspnea Meron Scale (0-10) 1 Exertion Meron Scale (6-20) 6 1st minute Oxygen Delivery Method Room Air Pulse Ox 94 Pulse Rate (60-100) 105 H 2nd minute Oxygen Delivery Method Room Air Pulse Ox 93 Pulse Rate (60-100) 102 H Dyspnea Meron Scale (0-10) 4 Number of Rests Taken 1 3rd minute Oxygen Delivery Method Room Air Pulse Ox 94 Pulse Rate (60-100) 100 Number of Rests Taken 1 4th minute Oxygen Delivery Method Room Air Pulse Ox 95 Pulse Rate (60-100) 101 H 5th minute Oxygen Delivery Method Room Air Pulse Ox 94 Pulse Rate (60-100) 102 H 6th minute Oxygen Delivery Method Room Air Pulse Ox 93 Pulse Rate (60-100) 102 H Dyspnea Meron Scale (0-10) 4 Exertion Meron Scale (6-20) 13 Post-test Oxygen Delivery Method Room Air Pulse Ox 95 Pulse Rate (60-100) 97 Full Laps Walked 13 Partial Lap, Number of Tiles Walked 8 Total Distance Walked (ft) 775 Interpretation Interpretation: The patient ambulated 775 feet over the course of 6 minutes beginning on room air without assistive devices. Pretesting oxygen saturation was noted to be 96% on room air. With ambulation, the niko oxygen saturation was 93%. There was no significant exertional oxygen desaturation. Recommendations Recommendations: There is no indication for the use of supplemental oxygen at this time.
== END | disposition home or self-care (01) ==
LOC: PSN 12:34
PROVIDERS: PCP Internal Medicine; Referring Provider Nurse Practitioner Acute Care; Visit Provider Nurse Practitioner Acute Care
DX: J44.1 Chronic obstructive pulmonary disease with (acute) exacerbation (principal)
CPT/HCPCS: 94618

== ENCOUNTER 2023-10-21 10:19 | Emergency (ER) | payer MEDICARE, MEDICAID, SELFPAY ==
[2023-10-21] VITALS (9 sets, daily range): BP systolic 129–147; BP diastolic 89–101; PULSE 51–89; RESP 10–74; TEMP 36.2–36.7; O2SAT 93–95; BMI 19.4
--- NOTE | 2023-10-21 10:45 | EKG12_ITS ---
Test Reason : DIZZY Blood Pressure : / mmHG Vent. Rate : 072 BPM Atrial Rate : 072 BPM P-R Int : 134 ms QRS Dur : 086 ms QT Int : 398 ms P-R-T Axes : 073 087 068 degrees QTc Int : 435 ms Normal sinus rhythm Normal ECG Confirmed by SHIRLEY ARBOLEDA, MARLON ([id number]), continuity editor MEG MULLINS ([id number]) on 10/23/2023 10:01:34 AM Referred By: Confirmed By:MARLON WATSON MD
--- NOTE | 2023-10-21 10:46 | ED.VIS.DYS ---
HPI History of Present Illness Chief Complaint: Shortness of Breath Informant: patient, spouse/S.O. and family Onset/Context/Timing Onset: Days Context: gradual Current Severity: Mild Maximum Severity: Mild Associated Symptoms Negative for cough Chest Pain: Positive for None Narrative Narrative: 63-year-old male history of COPD. He sees Dr. Dick of pulmonology. Recently was seen in the office by the nurse practitioner was given antibiotic which they think was doxycycline which she finished over the last week. And a prednisone taper which is also finished last week. Today had more shortness of breath. He denies any cough. No sputum. No hemoptysis. No chest pain. No fever. No leg pain or swelling. No history of DVT or PE or risk factors. No recent hospitalization. Patient was brought in by squad and believes he was given aerosols and route which improved him. He has a nebulizer inhaler at home. PE Risk Factors: Negative for Cancer, OCP + Smoking + > 35, Prior DVT or PE, Recent immobilization, Recent surgery, Recent travel or - Prior similar symptoms: Yes Recent Illness/Hospitalization: No PFSH PFS Medical History (Updated 10/21/23 @ 14:[address] Fabricio Kwong MD) Acute respiratory failure Bilateral tennis elbow Bipolar disorder COPD (chronic obstructive pulmonary disease) Depression Encephalopathy GERD (gastroesophageal reflux disease) Hoarseness Left ankle injury Lung nodule Migraine LACEY (obstructive sleep apnea) Pneumonia Pneumonia Pneumonia Sepsis Sleep-related breathing disorder Spinal stenosis Tobacco abuse Traumatic brain injury Home Medications amitriptyline 100 mg tablet 100 mg PO QHS sleep 06/30/19 [History Last Taken 08/21/19] dxespoop-mo-kagjw 300 mcg-K 60 mcg-lycop 600 mcg-lutein 300 mcg tablet 1 tab PO DAILY supplement 06/30/19 [History Last Taken 08/21/19] omeprazole 20 mg capsule,delayed release 40 mg PO DAILY gerd 06/30/19 [History Last Taken 08/22/19] sertraline 50 mg tablet 50 mg PO DAILY anxiety 06/30/19 [History Last Taken 08/21/19] levetiracetam 500 mg tablet 500 mg PO DAILY Check with primary doctor 04/28/20 [History Last Taken Unknown] quetiapine 200 mg tablet 200 mg PO QHS Check with primary doctor 04/28/20 [History Last Taken Unknown] naproxen 500 mg tablet (Naprosyn) 500 mg PO BID PRN pain #20 tabs 03/10/22 [Rx Last Taken Unknown] divalproex 500 mg tablet,delayed release 750 mg PO BID Check with primary doctor 05/18/22 [History Last Taken Unknown] albuterol sulfate 90 mcg/actuation aerosol inhaler 2 puff inhalation Q4H PRN shortness of breath or wheezing #8.5 grams 09/24/23 [Rx Last Taken Unknown] fluticasone fur. 200 mcg-umeclid 62.5 mcg-vilant 25 mcg inhalat.powder (Trelegy Ellipta) 1 inh inhalation DAILY #60 ea 09/24/23 [Rx Last Taken Unknown] gabapentin 800 mg tablet 800 mg PO QDAY 09/24/23 [History Last Taken Unknown] doxycycline hyclate 100 mg tablet 100 mg PO BID #20 tabs 10/06/23 [Rx Last Taken Unknown] prednisone 10 mg tablet 10 mg PO QDAY #30 tabs 10/06/23 [Rx Last Taken Unknown] albuterol sulfate 2.5 mg/3 mL (0.083 %) solution for nebulization 2.5 mg (3 mL) inhalation Q4H PRN COPD #25 vials 10/21/23 [Rx Last Taken Unknown] prednisone 20 mg tablet 40 mg (2 x 20 mg) PO DAILY 10 days #20 tabs 10/21/23 [Rx Last Taken Unknown] Allergy/AdvReac Type Severity Reaction Status Date / Time dextromethorphan HBr AdvReac Intermediate tachycardia, Verified 10/21/23 10:21 [From NyQuil] feels anxious doxylamine [From NyQuil] AdvReac Intermediate Tachycardia, Verified 10/21/23 10:21 feels anxious pseudoephedrine HCl AdvReac Intermediate Tachycardia, Verified 10/21/23 10:21 [From NyQuil] feels anxious sertraline HCl [From Zoloft] AdvReac Diarrhea Verified 10/21/23 10:21 Family History Father Dementia Alzheimers disease Diabetes Mother Diabetes Surgical History History of hernia repair Social History Smoking Status: Current every day smoker tobacco type: cigarettes Tobacco: How many years used: 30 second hand exposure: Yes alcohol intake: never substance use type: does not use ROS ROS ED ROS Narrative Shortness of breath. Wheezing. No chest pain. No cough. No fever. No sputum. No hemoptysis. Review of Systems ROS Unobtainable: Denies due to encephalopathy Constitutional Constitutional ED: Denies chills or fever(s) Eyes Eyes: Denies blurry vision ENT ENT ED: Denies ear pain Cardiovascular Cardiovascular: Denies chest pain Respiratory/Chest Respiratory/Chest: Reports dyspnea; Denies cough Gastrointestinal Gastrointestinal: Denies abdominal pain or constipation Genitourinary Genitourinary ED: Denies dysuria or hematuria Musculoskeletal Musculoskeletal: Denies arthralgias or back pain Integumentary Denies abscess or Abrasions Neurologic Neurologic: Denies headache(s) Psychiatric Psychiatric: Denies anxiety or depression Endocrine Endocrinology: Denies cold intolerance Hematologic/Lymphatic Hematologic/Lymphatic: Denies easy bleeding, easy bruising or lymphadenopathy Allergic/Immunologic Allergic/Immunologic ED: Denies mouth swelling, tongue swelling or urticaria EXAM Physical Exam Narrative Exam Narrative: Well-appearing 63-year-old male. Vital signs stable afebrile. Pulse ox 95% on room air no hypoxia. No distress. H EENT exam unremarkable. Moist mucous membranes. Neck nontender no JVD. Lungs clear to auscultation bilaterally. No rales rhonchi or wheezing. Prolonged expiratory phase. Heart regular rhythm rate about 85 no murmur. Chest wall and ribs nontender. Abdomen soft nontender. Moving all 4 extremities. Calves are nontender without edema or cords. Neurologically is awake and alert with no focal motor deficits. Const Vital Signs: 10/21/23 10:21 10/21/23 10:21 10/21/23 10:24 Temperature 97.3 F L Temperature Source Oral Pulse Rate 89 86 Respiratory Rate 10 L 20 H Respiratory Effort Normal Non-Labored Respiratory Pattern Normal Blood Pressure 147/98 H 147/98 H Blood Pressure Mean 114 114 Pulse Ox 95 94 Oxygen Delivery Method Room Air Room Air Room Air 10/21/23 10:53 10/21/23 10:53 10/21/23 11:08 Temperature 97.3 F L Temperature Source Oral Pulse Rate 51 L 72 Respiratory Rate 74 H 20 H Respiratory Effort Respiratory Pattern Tachypnea Blood Pressure 136/101 H Blood Pressure Mean 112 Pulse Ox 95 95 Oxygen Delivery Method Room Air Room Air 10/21/23 12:20 10/21/23 12:23 10/21/23 13:00 Temperature 97.6 F L 98.1 F Temperature Source Temporal Temporal Pulse Rate 70 70 75 Respiratory Rate 13 13 12 Respiratory Effort Respiratory Pattern Blood Pressure 147/89 H 147/89 H 129/93 H Blood Pressure Mean 108 108 105 Pulse Ox 93 94 93 Oxygen Delivery Method Room Air Room Air Room Air 10/21/23 14:00 Temperature 97.1 F L Temperature Source Temporal Pulse Rate 87 Respiratory Rate 25 H Respiratory Effort Respiratory Pattern Blood Pressure 133/92 H Blood Pressure Mean 105 Pulse Ox 94 Oxygen Delivery Method Room Air Positive well nourished and well developed; Negative for obese, cachectic, contractures or unkempt General Appearance ED: well developed and NAD; Negative for unkempt, cachectic, contractures or pallor Nutritional Appearance: Negative for cachectic or obese HEENT Reports moist mucous membranes; Denies dry mucous membranes atraumatic; Negative for trauma or tenderness Mouth ED: No dry mucous membranes Mouth: No dry mucous membranes Eyes PERRL and EOMs intact bilaterally General Eye ED: Negative for pale conjunctiva or scleral icterus Neck no lymphadenopathy, supple, no meningeal signs and no JVD General: Negative for tenderness Lymph Lymphatic: Negative for other Chest Wall Chest: Negative for other Resp normal respiratory effort and clear to auscultation bilaterally Effort and Inspection: Negative for pain with movement Auscultation: Negative for rales, rhonchi or wheezes Cardio regular rate, regular rhythm, S1 normal heart sound, S2 normal heart sound and no murmurs Rate: Negative for bradycardia, tachycardic or other Rhythm: Negative for abnormal rhythm GI non-tender, non-distended and no masses Inspection: Negative for other Auscultation: normoactive bowel sounds Palpation: soft; Negative for tender, guarding or rebound tenderness present Back/Spine no CVA tenderness and normal to inspection General Back: Negative for CVA tenderness Extremity normal to inspection General Extremety ED: Negative for edema, tenderness or other findings General Extremity: Negative for edema or other findings Neuro oriented x3 and CN's II-XII intact bilaterally Sensorium / Orientation: alert, oriented to person, oriented to place and oriented to time; Negative for orientation impaired, confused, lethargic or stuporous Motor Exam: strength 5/5 throughout Psych mental status grossly normal Appearance: Negative for unkempt Attitude: No agitated Mood & Affect: Negative for depressed, anxious or tearful Thought Process: normal thought process Skin no wounds and skin turgor normal General Skin Exam: Negative for jaundice or pallor Lesions: no lesions Rashes: no rashes Trauma: Negative for abrasion, laceration or puncture MDM MDM MDM Narrative Medical decision making narrative: 63-year-old male history of COPD complains of shortness of breath. He was treated with aerosols prior to arrival which is improved his symptoms greatly states. Denies any chest pain. No fever. Respiratory workup with DuoNeb and oral prednisone. Chest x-ray EKG and labs. Repeat exam patient is doing well at 2:40 pm. He would prefer to be discharged home. Currently he is not wheezing. He will be placed on prednisone 40 mg a day for 10 days. Albuterol for his nebulizer at home. Follow-up with Dr. Dick. Return if he is worse. I discussed all test results with he and family and they are comfortable with him going home and the follow-up plan. They know to return if he is worse. History & Record Review Discussion w/independent historian: Patient Additional record(s) reviewed:: Prior inpatient record, Prior outpatient record, Prior ED visit and Prior labs Lab Data Attestation: I reviewed the patient's lab results. Lab results narrative: CBC normal. White count of 7. H&H 14 and 45. Platelets 299. Electrolytes unremarkable gap 5. BUN 13 creatinine 0.6. Glucose 112. Troponin normal at 12. Labs: Laboratory Results - last 24 hr 10/21/23 10:30 WBC 7.2 RBC 5.00 Hgb 14.7 Hct 45.4 MCV 90.8 MCH 29.4 MCHC 32.4 RDW Std Deviation 47.3 H RDW Coeff of Aaron 14.1 Plt Count 299 MPV 9.4 Immature Gran % (Auto) 0.100 Neut % (Auto) 42.0 L Lymph % (Auto) 43.1 H Valencia % (Auto) 9.8 Eos % (Auto) 4.3 Baso % (Auto) 0.7 Absolute Neuts (auto) 3.0 Absolute Lymphs (auto) 3.11 Nucleated RBC % 0 Sodium 138 Potassium 4.3 Chloride 104 Carbon Dioxide 29.0 Anion Gap 5 BUN 13 Creatinine 0.60 L Estim Creat Clear Calc 106.06 Est GFR (MDRD) Af Amer 176 Est GFR (MDRD) Non-Af 146 BUN/Creatinine Ratio 21.7 H Glucose 112 H Calcium 8.6 Troponin I High Sens 12 Radiography Chest X-Ray - ED: 1 View, Read by ED Physician, Heart, Mediastinum, Bony Structures, Chronic Changes and Right Effusion Diagnostic Testing: Clinical Impression(s) from Imaging Studies Chest X-Ray 10/21/23 10:50 IMPRESSION: Chronic small right lower lobe pleural effusion with pleural thickening and right lower lobe basilar atelectasis Electronically Signed: Tr Austin MD at 13:17 EDT , Chest x-ray, portable, single view shows normal cardiac silhouette. Right lower lobe small pleural effusion with atelectasis and scarring. Interpreted both by myself and the radiologist. Rhythm Strip Rhythm Strip: Sinus Rhythm Rate: 72 Ectopy: None EKG Initial EKG: Attestation: I personally reviewed and interpreted this EKG as follows: Interpretation: Sinus Rhythm and No Acute Injury Pattern Comments: Normal sinus rhythm rate of 72. No acute signs of [place] no ischemia. Discharge Plan Triage Chief Complaint: Shortness of Breath Other Complaint: Headache ED Provider: Fabricio Kwong Dx/Rx/DC Orders Clinical Impression: Acute exacerbation of chronic obstructive pulmonary disease, Tobacco abuse, Bipolar disorder, Shortness of breath Instructions: ED COPD Flare Prescriptions: New prednisone 20 mg tablet 40 mg PO DAILY 10 Days Qty: 20 0RF albuterol sulfate 2.5 mg /3 mL (0.083 %) solution for nebulization 2.5 mg inhalation Q4H PRN Qty: 25 0RF Rx Instructions: Use q4 hours and PRN for wheezing No Action gabapentin 800 mg tablet 800 mg PO QDAY Trelegy Ellipta 200-62.5-25 mcg blister with device 1 inh inhalation DAILY Qty: 60 11RF albuterol sulfate 90 mcg/actuation HFA aerosol inhaler 2 puff inhalation Q4H PRN (Reason: shortness of breath or wheezing) Qty: 8.5 11RF Rx Instructions: administer with spacer omeprazole 20 MG capsule,delayed release(DR/EC) 40 mg PO DAILY Patient Comments: TAKE 2 CAPSULES BY MOUTH EVERY DAY 1/2 HOUR BEFORE BREAKFAST sertraline 50 MG tablet 50 mg PO DAILY Patient Comments: Take three tablets at bedtime. amitriptyline 100 MG tablet 100 mg PO QHS Patient Comments: TAKE 1 TABLET BY MOUTH EVERY DAY [id number] 1 EACH tablet 1 tab PO DAILY quetiapine 200 MG tablet 200 mg PO QHS levetiracetam 500 MG tablet 500 mg PO DAILY naproxen [Naprosyn] 500 mg tablet 500 mg PO BID PRN (Reason: pain) Qty: 20 0RF divalproex 500 MG tablet,delayed release (DR/EC) 750 mg PO BID doxycycline hyclate 100 mg tablet 100 mg PO BID Qty: 20 0RF prednisone 10 mg tablet 10 mg PO QDAY Qty: 30 0RF Rx Instructions: take 4 tabs for three days, then 3 tabs for three days, then 2 tabs for three days, then 1 tab for 3 days Primary Care Provider: Priscilla Nixon Referrals: Priscilla Nixon MD [Primary Care Provider] - Rock Dick DO [Med Staff - Active Staff] - As soon as possible Activity Restrictions/Additional Instructions: Prednisone 40 mg a day for the next 10 days start tomorrow we gave you a dose here. Use your inhaler and nebulizer at home as needed. Follow-up with your fuel technician soon as possible. Return if feeling worse. Disposition Disposition: Home, Self Care
--- NOTE | 2023-10-21 10:50 | RAD_ITS ---
STUDY: X-RAY CHEST REASON FOR EXAM: Male, 63 years old. chest pain TECHNIQUE: Single PA view of the chest. COMPARISON: May 17, 2022 FINDINGS: 1. Chronic small right lower lobe pleural effusion with pleural thickening and right lower lobe basilar atelectasis 2. Chronic hyperinflation and cystic emphysematous changes of both lungs 3. No new opacity is present 4. Normal heart size 5. Stable mediastinal structures 6. Stable osseous structures There is no demonstrated abnormality of the visualized soft tissue structures of the upper abdomen. RAD/Chest 1 View (Portable) IMPRESSION: Chronic small right lower lobe pleural effusion with pleural thickening and right lower lobe basilar atelectasis Electronically Signed: Tr Austin MD at 13:17 EDT ,
[2023-10-21 10:59] LABS: Absolute Lymphocyte Count 3.11 X10^3/uL (0.83-4.51); Basophil# 0.05 X10^3/uL; Basophil% 0.7 % (0-1); Eosinophil# 0.31 X10^3/uL; Eosinophils% 4.3 % (0-5); Hematocrit 45.4 % (40-54); Hemoglobin 14.7 g/dL (13.0-16.5); Lymphocyte # 3.11 X10^3/ul (0.83-4.51); Lymphocyte % 43.1 % (19-41); Mean Corp Hgb Conc 32.4 g/dL (32-36); Mean Corpuscular Hgb 29.4 pg (27.0-32.0); Mean Corpuscular Volume 90.8 fL (80-94); Mean Platelet Vol. 9.4 fl (6.2-12.0); Monocyte# 0.71 X10^3/uL; Monocyte% 9.8 % (0-10); NRBC Flagged by Analyzer 0 % (0-5); Neutrophil # 3.02 X10^3/uL (2.7-7.7); Platelet Count 299 K/mm3 (150-450); RBC Distribution Width CV 14.1 % (11.6-14.6); RBC Distribution Width SD 47.3 fl (35.1-43.9); White Blood Count 7.2 K/mm3 (4.4-11.0)
[2023-10-21] MEDS: Ipratropium/Albuterol Sulfate 3 ML AMPUL.NEB INHALATION (11:05)
--- NOTE | 2023-10-21 11:07 | CPS ---
asked pt about allergy to duo neb and no, also asked DR Kwong if i can administer and he said EMT did and the allergy is to zoloft and nyquil
[2023-10-21 11:29] LABS: Anion Gap 5 (5-15); BUN 13 mg/dL (7-18); BUN/Creat Ratio 21.7 RATIO (10-20); Calcium,Total 8.6 mg/dL (8.5-10.1); Chloride 104 mmol/L (98-107); EST Glomerular Filtration Rate 146 mL/min (>60); Est Glom Filt Rate - Afr Amer 176 mL/min (>60); Estimated Creatinine Clearance 106.06 ml/min; Glucose 112 mg/dL (74-106); Potassium 4.3 mmol/L (3.5-5.1); Sodium Level 138 mmol/L (136-145); Troponin-I HS 12 pg/mL (3.0-78.0)
[2023-10-21] MEDS: Acetaminophen 500 MG Tablet 1000 MG PO (11:52)
[2023-10-21] MEDS: predniSONE 20 MG Tablet 60 MG PO (11:53)
== END 2023-10-21 15:04 | disposition home or self-care (01) ==
PROVIDERS: Emergency Provider Emergency Medicine; PCP Internal Medicine; Visit Provider Emergency Medicine
DX: J44.1 Chronic obstructive pulmonary disease with (acute) exacerbation (principal); F31.9 Bipolar disorder, unspecified; F17.210 Nicotine dependence, cigarettes, uncomplicated; Z79.899 Other long term (current) drug therapy
CPT/HCPCS: 71045; 80048; 84484; 85025; 93005; 94640; 99285; A4216

== ENCOUNTER 2024-03-28 14:47 | Observation (INO) | payer MEDICARE, SELFPAY ==
[2024-03-28] VITALS (14 sets, daily range): BP systolic 118–164; BP diastolic 74–108; PULSE 72–88; RESP 13–18; TEMP 36–36.9; O2SAT 94–100; BMI 18.3; BMI 18.6
--- NOTE | 2024-03-28 15:24 | CT_ITS ---
EXAM: CT HEAD WITHOUT INTRAVENOUS CONTRAST CLINICAL INDICATION: cva -- right arm/leg numb, RUE ataxia TECHNIQUE: Multiple axial images were obtained of the head without intravenous contrast. This CT exam was performed using one or more of the following dose reduction techniques: automated exposure control, adjustment of the mA and/or kV according to patient size, and/or use of iterative reconstruction technique. RADIATION DOSE: CTDIvol = 44.99 mGy, DLP = 829.85 mGy-cm COMPARISON: No relevant prior studies available. 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 No intra- or extra-axial hemorrhage. No intracranial mass or mass effect. Posterior fossa structures are unremarkable. Ventricles are appropriate for age. No hydrocephalus. Basal cisterns are patent. BONES/JOINTS: Unremarkable. No discrete lytic or blastic abnormalities. SINUSES: Unremarkable as visualized. Clear. MASTOID AIR CELLS: Unremarkable. Clear. ORBITS: Visualized globes, extraocular muscles, optic nerves and retrobulbar fat appear unremarkable. CT/Brain/Head without Contrast IMPRESSION: No acute findings in the head/brain. Electronically Signed: Maurisio Sanon MD at 16:08 EDT ,
--- NOTE | 2024-03-28 15:24 | EKG12_ITS ---
Test Reason : Blood Pressure : / mmHG Vent. Rate : 074 BPM Atrial Rate : 074 BPM P-R Int : 116 ms QRS Dur : 094 ms QT Int : 392 ms P-R-T Axes : 068 091 075 degrees QTc Int : 435 ms Normal sinus rhythm Rightward axis Borderline ECG Confirmed by Salazar Gregorio ([id number]), research editor MEG MULLINS ([id number]) on 03/30/2024 7:52:50 AM Referred By: Confirmed By:Salazar Gregorio
--- NOTE | 2024-03-28 15:26 | EDS_ITS ---
HPI History of Present Illness Chief Complaint: Weakness Informant: patient and spouse/S.O. Narrative Narrative: Presents concerns of weakness right upper extremity occurring while using the computer 2 PM 2 days ago over 40 hours ago. He states he was using the mouse with his arm contracted and, unsteady use of right arm since then. No headache no speech changes. No weakness in the legs. Denies visual changes. Denies any stroke history. History of stage IV COPD no current home oxygen. Absence seizure disorder on Keppra and Depakote. Tobacco history. No diabetes history. He states tingling had increased since onset of symptoms. States tingling from the right elbow down to the hand. Prior similar symptoms: No PFSH [facility] Medical History (Updated 03/28/24 @ 17:[address] Raleigh Hernandez, ) Pneumonia Pneumonia Left ankle injury Bilateral tennis elbow Depression Sepsis LACEY (obstructive sleep apnea) Lung nodule Hoarseness Sleep-related breathing disorder Pneumonia Encephalopathy Acute respiratory failure COPD (chronic obstructive pulmonary disease) GERD (gastroesophageal reflux disease) Bipolar disorder Migraine Tobacco abuse Spinal stenosis Traumatic brain injury Home Medications ?Medication ?Instructions ?Recorded ?Last Taken ?Type amitriptyline 100 mg tablet 100 mg PO QHS sleep 06/30/19 03/21/24 History levetiracetam 500 mg tablet 500 mg PO DAILY Check with primary 04/28/20 03/28/24 [address] doctor fluticasone fur. 200 mcg-umeclid 1 inh inhalation DAILY #60 ea 09/24/23 03/28/24 Rx 62.5 mcg-vilant 25 mcg inhalat.powder (Trelegy Ellipta) gabapentin 600 mg tablet 600 mg PO TID 11/25/23 03/28/24 History albuterol sulfate 90 mcg/actuation 2 puff inhalation Q4H PRN 03/15/24 03/28/24 Rx aerosol inhaler shortness of breath or wheezing #8.5 grams albuterol sulfate 2.5 mg/3 mL 2.5 mg (3 mL) inhalation Q4H PRN 03/24/24 03/28/24 Rx (0.083 %) solution for nebulization #120 vials divalproex 250 mg tablet,delayed 750 mg PO BID 03/28/24 03/28/24 History release ibuprofen 200 mg tablet (Addaprin) 400 mg PO Q8H PRN pain 03/28/24 03/28/24 Hist ory Allergy/AdvReac Type Severity Reaction Status Date / Time dextromethorphan HBr (From AdvReac Intermediate tachycardia, Verified 03/28/24 14:48 NyQuil) feels anxious doxylamine (From NyQuil) AdvReac Intermediate Tachycardia, Verified 03/28/24 14:48 feels anxious pseudoephedrine HCl (From AdvReac Intermediate Tachycardia, Verified 03/28/24 14:48 NyQuil) feels anxious sertraline HCl (From Zoloft) AdvReac Diarrhea Verified 03/28/24 14:48 Family History Father Dementia Alzheimers disease Diabetes Mother Diabetes Surgical History History of hernia repair Social History Smoking Status: Heavy Smoker (>10/day) Tobacco: How many years used: 30 second hand exposure: Yes alcohol intake: never substance use type: does not use ROS ROS ED Constitutional Constitutional ED: Denies chills, fever(s) or sweats Eyes Eyes: Denies change in vision ENT ENT ED: Denies dysphagia or sore throat Cardiovascular Cardiovascular: Denies chest pain, leg edema, palpitations or racing heartbeat Respiratory/Chest Respiratory/Chest: Denies cough, dyspnea or dyspnea on exertion Gastrointestinal Gastrointestinal: Denies abdominal pain, diarrhea, nausea or vomiting Genitourinary Genitourinary ED: Denies dysuria, hematuria or urinary frequency Musculoskeletal Musculoskeletal: Denies back pain, extremity pain or neck pain Integumentary Denies rash or wounds Neurologic Neurologic: Reports paresthesias and weakness; Denies headache(s) EXAM Physical Exam Const Vital Signs: 03/28/24 14:48 03/28/24 14:58 03/28/24 15:39 Temperature 96.8 F L Temperature Source Temporal Pulse Rate 80 Respiratory Rate 16 Respiratory Effort Normal Non-Labored Respiratory Pattern Normal Blood Pressure 141/93 H Blood Pressure Mean 109 Pulse Ox 100 Oxygen Delivery Method Room Air Room Air 03/28/24 15:41 03/28/24 15:54 03/28/24 16:24 Temperature Temperature Source Pulse Rate 78 78 80 Respiratory Rate 16 15 13 Respiratory Effort Respiratory Pattern Blood Pressure 118/89 H 164/100 H 146/101 H Blood Pressure Mean 98 121 116 Pulse Ox 99 95 97 Oxygen Delivery Method Room Air Room Air Room Air 03/28/24 16:54 03/28/24 17:24 03/28/24 17:25 Temperature 98.4 F Temperature Source Pulse Rate 80 75 75 Respiratory Rate 15 16 16 Respiratory Effort Respiratory Pattern Blood Pressure 132/96 H 136/108 H 136/108 H Blood Pressure Mean 108 117 117 Pulse Ox 98 98 98 Oxygen Delivery Method Room Air Room Air 03/28/24 17:54 Temperature Temperature Source Pulse Rate 77 Respiratory Rate 18 Respiratory Effort Respiratory Pattern Blood Pressure 140/103 H Blood Pressure Mean 115 Pulse Ox 98 Oxygen Delivery Method Room Air Positive well nourished and well developed General Appearance ED: well developed and NAD HEENT Reports moist mucous membranes normocephalic and atraumatic Eyes EOMs intact bilaterally and conjunctivae normal General Eye ED: Yes normal appearance of both eyes Neck no lymphadenopathy and supple General: Negative for tenderness Chest Wall Chest: Negative for tenderness Resp normal respiratory effort and normal air movement Effort and Inspection: symmetric chest movement; Negative for respiratory distress Cardio regular rate, regular rhythm and no murmurs Peripheral Pulses: pulses 2+ throughout GI normal to inspection, nondistended, normoactive bowel sounds and non-tender Palpation: Negative for guarding or rebound tenderness present Back/Spine no CVA tenderness and no thoracic nor lumbar tenderness Extremity normal to inspection General Extremety ED: Negative for edema or tenderness General Extremity: Negative for edema Neuro oriented x3 and CN's II-XII intact bilaterally Neuro Narrative: NIH of 2, see NIH scale. Sensorium / Orientation: awake and alert Skin no rashes or lesions noted and no wounds NIHSS NIHSS Initial: 1a Level of Consciousness: 0 1b LOC Questions (Score 2 if aphasic/stupor): 0 1c LOC Commands (Only score 1st attempt): 0 2 Best Gaze (If aphasic, use reflexive mvmts.): 0 3 Visual: 0 4 Facial Palsy: 0 5 Motor Arm Right (UN = amputation/fusion): 0 5 Motor Arm Left: 0 6 Motor Leg Right: 0 6 Motor Leg Left: 0 7 Limb ataxia (Only + if out of proportion): 1 8 Sensory (Aphasia/stupor=0 or 1, coma=2): 1 9 Best Language: 0 10 Dysarthria (mute, coma=2, intubated=UN): 0 11 Extinction and Inattention (only scored if +): 0 Total Score: 2 MDM MDM MDM Narrative Medical decision making narrative: Interventions / MDM: Differential diagnosis: CVA, right side paresthesia, right upper extremity ataxia Diagnosis considered but do not suspect: N/A My EKG interpretation: Sinus rate of 74, no ST changes. T wave inversion aVL and V2. Similar October 2023. Imaging independently reviewed and interpreted by myself: CT brain: No acute process. 1 view chest x-ray: No acute process External documents reviewed: N/A Test considered but not ordered:N/A ED course: Patient presenting NIH of 2 right upper extremity ataxia with paresthesias right arm right leg. He is outside the window for any TNK or for endovascular intervention. Stroke workup is initiated. Will plan for admission for inpatient workup. 1620: CT negative EKG sinus rhythm chest x-ray negative. Labs are stable. Reevaluate the patient NIH still a 2. I discussed admission for further workup with the patient. Currently he is hesitant and states he thinks it is the nerve from his elbow causing his symptoms. I state to him that this does not cause paresthesia in his leg. His is in the room, I will rediscussed with the patient shortly. 1710: Rediscussed with patient and spouse, patient agrees for further inpatient evaluation. I will speak with hospitalist service. His NIH is still 2. 1725: I spoke with Dr. Thomas for admission to PCU. Re-evaluation: stable Disposition discussed with patient/family/significant other: Patient and spouse Case discussed with consulting clinician: Hospitalist This note was generated with [employer] dictation software. It may contain incorrect words, spelling, and punctuation that were not noted in checking the note before signing. Lab Data Attestation: I reviewed the patient's lab results. Labs: Laboratory Results - last 24 hr 03/28/24 15:43 WBC 7.3 RBC 4.90 Hgb 14.7 Hct 45.9 MCV 93.7 MCH 30.0 MCHC 32.0 RDW Std Deviation 45.8 H RDW Coeff of Aaron 13.4 Plt Count 356 MPV 8.4 Immature Gran % (Auto) 0.300 Neut % (Auto) 55.2 Lymph % (Auto) 35.9 Doddridge % (Auto) 6.7 Eos % (Auto) 1.2 Baso % (Auto) 0.7 Absolute Neuts (auto) 4.0 Absolute Lymphs (auto) 2.61 Nucleated RBC % 0 PT 14.4 INR 1.1 APTT 30.4 Sodium 135 L Potassium 3.5 Chloride 98 Carbon Dioxide 33.0 H Anion Gap 5 BUN 12 Creatinine 0.63 L Estim Creat Clear Calc 95.19 Est GFR (MDRD) Af Amer 166 Est GFR (MDRD) Non-Af 137 BUN/Creatinine Ratio 19.0 Glucose 88 Calcium 9.1 Troponin I High Sens 6 Radiography Diagnostic Testing: Clinical Impression(s) from Imaging Studies Brain CT 03/28/24 15:24 IMPRESSION: No acute findings in the head/brain. Electronically Signed: Maurisio Sanon MD at 16:08 EDT , Chest X-Ray 03/28/24 15:50 IMPRESSION: Chronic scarring or pleural effusion. Electronically Signed: Maurisio Sanon MD at 16:27 EDT , Discharge Plan Dx/Rx/DC Orders Clinical Impression: Acute CVA (cerebrovascular accident), Ataxia of right upper extremity, Paresthesia of right leg, Arm paresthesia, right Disposition Disposition: Acute Care [facility] Discharge Date/Time: 03/28/24 19:17
[2024-03-28 15:49] LABS: Absolute Lymphocyte Count 2.61 X10^3/uL (0.83-4.51); Basophil# 0.05 X10^3/uL; Basophil% 0.7 % (0-1); Eosinophil# 0.09 X10^3/uL; Eosinophils% 1.2 % (0-5); Hematocrit 45.9 % (40-54); Hemoglobin 14.7 g/dL (13.0-16.5); Lymphocyte # 2.61 X10^3/ul (0.83-4.51); Lymphocyte % 35.9 % (19-41); Mean Corpuscular Volume 93.7 fL (80-94); Mean Platelet Vol. 8.4 fl (6.2-12.0); Monocyte# 0.49 X10^3/uL; Monocyte% 6.7 % (0-10); NRBC Flagged by Analyzer 0 % (0-5); Neutrophil # 4.02 X10^3/uL (2.7-7.7); Neutrophil % 55.2 % (47-70); Platelet Count 356 K/mm3 (150-450); RBC Distribution Width CV 13.4 % (11.6-14.6); RBC Distribution Width SD 45.8 fl (35.1-43.9); White Blood Count 7.3 K/mm3 (4.4-11.0)
--- NOTE | 2024-03-28 15:50 | RAD_ITS ---
STUDY: XR Chest 1 View 03/28/2024 3:48 PM REASON FOR EXAM: Male, 63 years old. Neuro deficit, acute, stroke suspected COMPARISON: 5.7.24 TECHNIQUE: XR Chest 1 View FINDINGS: Chronic scarring or pleural effusion. Normal heart size. Normal mediastinum. Normal noreen. Prominent appearing increased interstitial lung markings. Normal visualized pulmonary arteries. There is atherosclerotic calcification of the aortic arch with tortuosity. There are diffuse degenerative changes of the visualized thoracic spine. There is degenerative osteoarthritis of the bilateral shoulders. There are no acute findings of the upper abdomen. RAD/Chest 1 View IMPRESSION: Chronic scarring or pleural effusion. Electronically Signed: Maurisio Sanon MD at 16:27 EDT ,
[2024-03-28 16:03] LABS: Partial Thromboplast Time 30.4 Seconds (24.1-36.2)
[2024-03-28 16:07] LABS: Anion Gap 5 (5-15); BUN 12 mg/dL (7-18); Calcium,Total 9.1 mg/dL (8.5-10.1); Chloride 98 mmol/L (98-107); Creatinine, Serum 0.63 mg/dL (0.70-1.30); EST Glomerular Filtration Rate 137 mL/min (>60); Est Glom Filt Rate - Afr Amer 166 mL/min (>60); Estimated Creatinine Clearance 95.19 ml/min; Glucose 88 mg/dL (74-106); Potassium 3.5 mmol/L (3.5-5.1); Sodium Level 135 mmol/L (136-145); Troponin-I HS 6 pg/mL (3.0-78.0)
[2024-03-28 16:27] LABS: International Normalized Ratio 1.1; Prothrombin Time (Protime)PT. 14.4 SECONDS (11.7-14.9)
--- NOTE | 2024-03-28 18:00 | PCM.HP.STD ---
HPI - General General Date of Admission: 03/28/24 Date of Service: 03/28/24 Chief Complaint: R arm numbness and incoordination HPI Narrative ELIUD BLOUNT, is a 63 M with a history of absence seizure's, COPD, tobacco use who presented to [facility] ED 03/28/2024 with difficulty controlling his right arm and decreased sensation. 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 Due to overt deficits on exam hospitalist contacted for admission for CVA evaluation. Patient evaluated bedside, reports around 2 PM Friday he was on his computer and his right arm contracted and became numb and he had a hard time using it, the symptoms have persisted so he is now presenting to the emergency department, there has been no improvement nor worsening. Denies any other focal complaints. Does report some chronic shortness of breath and chronic cough with his COPD unchanged from usual and sometimes will get a runny nose. ROS otherwise negative [facility] Medical History (Updated 03/28/24 @ 17:[address] Raleigh Hernandez, DO) Acute respiratory failure Bilateral tennis elbow Bipolar disorder COPD (chronic obstructive pulmonary disease) Depression Encephalopathy GERD (gastroesophageal reflux disease) Hoarseness Left ankle injury Lung nodule Migraine LACEY (obstructive sleep apnea) Pneumonia Pneumonia Pneumonia Sepsis Sleep-related breathing disorder Spinal stenosis Tobacco abuse Traumatic brain injury Home Medications ?Medication ?Instructions ?Recorded ?Last Taken ?Type amitriptyline 100 mg tablet 100 mg PO QHS sleep 06/30/19 03/21/24 History levetiracetam 500 mg tablet 500 mg PO DAILY Check with primary 04/28/20 03/28/24 History doctor fluticasone fur. 200 mcg-umeclid 1 inh inhalation DAILY #60 ea 09/24/23 03/28/24 Rx 62.5 mcg-vilant 25 mcg inhalat.powder (Trelegy Ellipta) gabapentin 600 mg tablet 600 mg PO TID 11/25/23 03/28/24 History albuterol sulfate 90 mcg/actuation 2 puff inhalation Q4H PRN 03/15/24 03/28/24 Rx aerosol inhaler shortness of breath or wheezing #8.5 grams albuterol sulfate 2.5 mg/3 mL 2.5 mg (3 mL) inhalation Q4H PRN 03/24/24 03/28/24 Rx (0.083 %) solution for nebulization #120 vials divalproex 250 mg tablet,delayed 750 mg PO BID 03/28/24 03/28/24 History release ibuprofen 200 mg tablet (Addaprin) 400 mg PO Q8H PRN pain 03/28/24 03/28/24 History Allergy/AdvReac Type Severity Reaction Status Date / Time dextromethorphan HBr (From AdvReac Intermediate tachycardia, Verified 03/28/24 14:48 NyQuil) feels anxious doxylamine (From NyQuil) AdvReac Intermediate Tachycardia, Verified 03/28/24 14:48 feels anxious pseudoephedrine HCl (From AdvReac Intermediate Tachycardia, Verified 03/28/24 14:48 NyQuil) feels anxious sertraline HCl (From Zoloft) AdvReac Diarrhea Verified 03/28/24 14:48 Family History Father Dementia Alzheimers disease Diabetes Mother Diabetes Surgical History History of hernia repair Social History Smoking Status: Heavy Smoker (>10/day) Tobacco: How many years used: 30 second hand exposure: Yes alcohol intake: never substance use type: does not use ROS ROS Narrative General: Denies fever/chills HENT: Denies headache, occasionally has runny nose, denies sore throat EYES: Denies changes in vision Resp: Some chronic shortness of breath and chronic cough unchanged from usual Cardiac: Denies chest pain GI: Denies abdominal pain, denies changes in bowel, denies nausea/vomiting : Denies changes in urination Extremity: Denies swelling MSK: Right arm weakness and incoordination Neuro: Decreased sensation in right arm Heme: Denies any bleeding or bruising Skin: Denies rashes Psychiatric: No complaints voiced Vital Signs Vital Signs Vital Signs: 03/28/24 14:48 03/28/24 14:58 03/28/24 15:39 Temperature 96.8 F L Temperature Source Temporal Pulse Rate 80 Respiratory Rate 16 Respiratory Effort Normal Non-Labored Respiratory Pattern Normal Blood Pressure 141/93 H Blood Pressure Mean 109 Pulse Ox 100 Oxygen Delivery Method Room Air Room Air 03/28/24 15:41 03/28/24 15:54 03/28/24 16:24 Temperature Temperature Source Pulse Rate 78 78 80 Respiratory Rate 16 15 13 Respiratory Effort Respiratory Pattern Blood Pressure 118/89 H 164/100 H 146/101 H Blood Pressure Mean 98 121 116 Pulse Ox 99 95 97 Oxygen Delivery Method Room Air Room Air Room Air 03/28/24 16:54 03/28/24 17:24 03/28/24 17:25 Temperature 98.4 F Temperature Source Pulse Rate 80 75 75 Respiratory Rate 15 16 16 Respiratory Effort Respiratory Pattern Blood Pressure 132/96 H 136/108 H 136/108 H Blood Pressure Mean 108 117 117 Pulse Ox 98 98 98 Oxygen Delivery Method Room Air Room Air Weight Weight: 54.658 kg Body Mass Index (BMI) 18.3 Physical Exam Narrative General: Alert, oriented, no apparent distress HEENT: Atraumatic, normocephalic Eyes: Anicteric, normal conjunctiva, extraocular movements intact, pupils equal Neck: Supple Respiratory: Clear to auscultation bilaterally, normal respiratory effort Cardiovascular: Regular rate and rhythm GI: Soft, nontender, nondistended Extremities: No edema Musculoskeletal: Strength 4 out of 5 in right upper extremity, 5 out of 5 left upper extremity, 5 - out of 5 right lower extremity, 5 out of 5 left lower extremity Neuro: cranial nerves II through XII intact, [id number] with significant difficulty on right and no difficulty on left Skin: No rashes appreciated Psych: Cooperative Results Lab / Micro Data 03/28/24 15:43 03/28/24 15:43 Labs: Laboratory Results - last 24 hr 03/28/24 15:43: WBC 7.3, RBC 4.90, Hgb 14.7, Hct 45.9, MCV 93.7, MCH 30.0, MCHC 32.0, RDW Std Deviation 45.8 H, RDW Coeff of Aaron 13.4, Plt Count 356, MPV 8.4, Immature Gran % (Auto) 0.300, Neut % (Auto) 55.2, Lymph % (Auto) 35.9, Tyrrell % (Auto) 6.7, Eos % (Auto) 1.2, Baso % (Auto) 0.7, Absolute Neuts (auto) 4.0, Absolute Lymphs (auto) 2.61, Nucleated RBC % 0, PT 14.4, INR 1.1, APTT 30.4, Sodium 135 L, Potassium 3.5, Chloride 98, Carbon Dioxide 33.0 H, Anion Gap 5, BUN 12, Creatinine 0.63 L, Estim Creat Clear Calc 95.19, Est GFR (MDRD) Af Amer 166, Est GFR (MDRD) Non-Af 137, BUN/Creatinine Ratio 19.0, Glucose 88, Calcium 9.1, Troponin I High Sens 6 Imaging Radiology Impression Brain CT 03/28/24 15:24 IMPRESSION: No acute findings in the head/brain. Electronically Signed: Maurisio Sanon MD at 16:08 EDT , Chest X-Ray 03/28/24 15:50 IMPRESSION: Chronic scarring or pleural effusion. Electronically Signed: Maurisio Sanon MD at 16:27 EDT , Assessment & Plan Assessment/Plan (1) Acute CVA (cerebrovascular accident): PLAN: Plan # Right arm ataxia, weakness, decreased sensation?suspect CVA -Admit to tele -CT head w/ chronic changes in ED -CTA head and neck ordered -MRI ordered -NIH q4hr -asa, statin -Echo w/ bubble study -PT/OT/Speech eval -Teleneuro consult ordered -No need for permissive hypertension given symptoms started Friday at 2 PM # History of COPD -Stage IV -Patient feels he is at his baseline -Continue inhalers # History of absence seizure's -Continue patient's home Keppra and Depakote and gabapentin #Tobacco use -Continues to smoke a pack per day -Advise cessation -Nicotine replacement available if desired #DVT ppx: Lovenox subcu Becky Thomas MD Time spent in the patient's overall evaluation,decision-making process, review of diagnostic data, adjustment of management, discussion with other providers, nursing nursing and ancillary staff involved in patient's care documentation, 55 Minutes Charges/Coding Visit Charges Inpatient E&M: 80625 Init Hosp L2
--- NOTE | 2024-03-28 18:08 | ECHOD_ITS ---
Reason For Study: TIA/STROKE Procedure This was a 2D Doppler, Color Flow transthoracic echocardiogram. The study was technically difficult. Study done from subcostals due to body habitus and no apical windows. Left Ventricle Normal LV size. The estimated ejection fraction is 55 %. No evidence for diastolic dysfunction. No regional wall motion abnormalities noted. Right Ventricle Normal RV size. Normal systolic function. Atria The left and right atria are normal. No doppler evidence for ASD. Mitral Valve There is no mitral valve stenosis. No mitral valve insufficiency. Tricuspid Valve There is no tricuspid stenosis. Unable to estimate RV systolic pressure due to inadequate jet, pulmonary artery pressure probably normal. Aortic Valve Trisinus/trileaflet aortic valve. There is no aortic stenosis. No aortic valve insufficiency. Pulmonic Valve There is no pulmonic valvular stenosis. No pulmonic valve insufficiency. Great Vessels Normal aortic root. Pericardium/Pleural No pericardial effusion. MMode/2D Measurements & Calculations LVIDd: 3.7 cm IVSd: 0.92 cm LVOT diam: 2.4 cm LVIDs: 2.7 cm LVPWd: 1.0 cm LVOT area: 4.4 cm2 RVDd: 3.5 cm FS: 26.1 % LAV(MOD-sp4): 20.1 ml LA A4 area: 10.5 cm2 RA A4 area: 6.1 cm2 Time Measurements MV dec time: 0.17 sec Doppler Measurements & Calculations MV E max sebastien: 39.3 cm/sec Lat Peak E' Sebastien: 14.2 cm/sec Med Peak E' Sebastien: 9.5 cm/sec MV A max sebastien: 44.9 cm/sec E/E' lat: 2.8 E/E' med: 4.1 MV E/A: 0.87 MV dec slope: 234.8 cm/sec2 Ao V2 max: 92.4 cm/sec LV V1 max: 76.2 cm/sec Ao max P.4 mmHg LV V1 max P.3 mmHg Ao V2 mean: 70.3 cm/sec LV V1 mean P.2 mmHg Ao mean P.2 mmHg LV V1 mean: 51.3 cm/sec Ao V2 VTI: 20.7 cm LV V1 VTI: 15.1 cm AV (velocity ratio): 0.73 BRIAN(I,D): 3.2 cm2 BRIAN(V,D): 3.7 cm2 SV(LVOT): 67.1 ml PA V2 max: 71.4 cm/sec PA V2 mean: 43.6 cm/sec ECHO/Echo Complete Interpretation Summary The estimated ejection fraction is 55 %. No evidence for diastolic dysfunction. Ordering Physician: Becky Thomas Referring Physician: CHARAN ARNDT Performed By: Padmini Carrasco and Student
--- NOTE | 2024-03-28 18:08 | MRI_ITS ---
EXAM: MR HEAD WITHOUT INTRAVENOUS CONTRAST CLINICAL INDICATION: Right arm weakness and ataxia. Rule out CVA. TECHNIQUE: Multiplanar and multisequence MR images of the brain were obtained without intravenous contrast. COMPARISON: MRI brain without contrast 03/24/2019. CT head without contrast 03/28/2024. FINDINGS: BRAIN AND EXTRA-AXIAL SPACES: No diffusion restriction to suspect acute or subacute ischemic infarct. 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 No intra- or extra-axial hemorrhage. No intracranial mass or mass effect. Posterior fossa structures are unremarkable. No hydrocephalus. Basal cisterns are patent. SELLA: Unremarkable. Normal sella turcica, pituitary gland, infundibular stalk, optic chiasm and hypothalamus. AUDITORY SYSTEM: Unremarkable. The internal auditory canals are patent. BONES/JOINTS: Unremarkable. No discrete lytic or blastic abnormalities. SINUSES: Unremarkable as visualized. Clear. MASTOID AIR CELLS: Unremarkable as visualized. Clear. ORBITS: Unremarkable as visualized. Both globes, extraocular muscles, optic nerves and retrobulbar fat appear unremarkable. VASCULATURE: Unremarkable as visualized. Normal flow voids in the major intracranial circulation. MRI/Brain without Contrast IMPRESSION: 1. No MRI evidence of acute or subacute ischemic infarct or acute intracranial abnormality. 2. 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 3. No significant interval change when compared to MRI brain of 03/24/2019. Electronically Signed: Miguel Ángel Davis MD at 15:23 EDT ,
--- NOTE | 2024-03-28 18:08 | CT_ITS ---
EXAM: CT ANGIOGRAPHY HEAD AND NECK WITH INTRAVENOUS CONTRAST CLINICAL INDICATION: Neuro deficit, acute, stroke suspected TECHNIQUE: [facility] of [place]/head and neck CT angiography protocol performed with intravenous contrast. This CT exam was performed using one or more of the following dose reduction techniques: automated exposure control, adjustment of the mA and/or kV according to patient size, and/or use of iterative reconstruction technique. MIP reconstructed images were created and reviewed. CONTRAST: IV 100mL Isovue-[id number] RADIATION DOSE: CTDIvol = 20.76 mGy, DLP = 661.51 mGy-cm COMPARISON: No relevant prior studies available. FINDINGS: HEAD: RIGHT ANTERIOR CEREBRAL ARTERY: Unremarkable. No occlusion or significant stenosis. Anterior communicating artery is present. No aneurysm. RIGHT MIDDLE CEREBRAL ARTERY: Unremarkable. No occlusion or significant stenosis. No aneurysm. RIGHT POSTERIOR CEREBRAL ARTERY: Unremarkable. No occlusion or significant stenosis. No aneurysm. RIGHT INTRACRANIAL INTERNAL CAROTID ARTERY: Unremarkable. No significant stenosis. No dissection or occlusion. RIGHT INTRACRANIAL VERTEBRAL ARTERY: Unremarkable. No significant stenosis. No dissection or occlusion. LEFT ANTERIOR CEREBRAL ARTERY: Unremarkable. No occlusion or significant stenosis. No aneurysm. LEFT MIDDLE CEREBRAL ARTERY: Unremarkable. No occlusion or significant stenosis. No aneurysm. LEFT POSTERIOR CEREBRAL ARTERY: Unremarkable. No occlusion or significant stenosis. No aneurysm. LEFT INTRACRANIAL INTERNAL CAROTID ARTERY: Unremarkable. No significant stenosis. No dissection or occlusion. LEFT INTRACRANIAL VERTEBRAL ARTERY: Unremarkable. No significant stenosis. No dissection or occlusion. BASILAR ARTERY: Unremarkable. No occlusion or significant stenosis. No aneurysm. OTHER VASCULATURE: There is calcified plaque formation of the right cavernous carotid artery, with a mild stenosis (less than 50%). ALL ABOVE CRITERIA BY NASCET. There is calcified plaque formation of the left cavernous carotid artery, with a mild stenosis (less than 50%). ALL ABOVE CRITERIA BY NASCET. No vascular malformation. NECK: RIGHT COMMON CAROTID ARTERY: Unremarkable. No significant stenosis. No dissection or occlusion. RIGHT EXTRACRANIAL INTERNAL CAROTID ARTERY: There is mild atherosclerotic plaque formation of the origin of the right internal carotid artery with less than 50% cross sectional diameter stenosis. ALL ABOVE CRITERIA BY NASCET. No dissection or occlusion. RIGHT EXTERNAL CAROTID ARTERY: Unremarkable. No occlusion. RIGHT EXTRACRANIAL VERTEBRAL ARTERY: Unremarkable. No significant stenosis. No dissection or occlusion. LEFT COMMON CAROTID ARTERY: Unremarkable. No significant stenosis. No dissection or occlusion. LEFT EXTRACRANIAL INTERNAL CAROTID ARTERY: There is mild atherosclerotic plaque formation of the origin of the left internal carotid artery with less than 50% cross sectional diameter stenosis. ALL ABOVE CRITERIA BY NASCET. No dissection or occlusion. LEFT EXTERNAL CAROTID ARTERY: Unremarkable. No occlusion. LEFT EXTRACRANIAL VERTEBRAL ARTERY: Unremarkable. No significant stenosis. No dissection or occlusion. BRACHIOCEPHALIC AND SUBCLAVIAN ARTERIES: Unremarkable as visualized. No occlusion or significant stenosis. LUNG APICES: Apical pulmonary emphysema. HEAD and NECK: BONES/JOINTS: There are degenerative findings of the cervical spine. No discrete lytic or blastic abnormalities. SOFT TISSUES: Unremarkable. OTHER FINDINGS: Post-processing of the images was performed, with axial imaging and 3D reconstruction. MIPS images were obtained. CAROTID STENOSIS REFERENCE USING NASCET CRITERIA: % ICA stenosis = (1 - narrowest ICA diameter/diameter of distal cervical ICA) x 100. Mild - <50% stenosis. Moderate - 50-69% stenosis. Severe - 70-94% stenosis. Near occlusion - 95-99% stenosis. Occluded - 100% stenosis. CT/CTA Head AND Neck W/ Contrast IMPRESSION: 1. There is mild atherosclerotic plaque formation of the origin of the right internal carotid artery with less than 50% cross sectional diameter stenosis. ALL ABOVE CRITERIA BY NASCET. 2. There is mild atherosclerotic plaque formation of the origin of the left internal carotid artery with less than 50% cross sectional diameter stenosis. ALL ABOVE CRITERIA BY NASCET. 3. There is calcified plaque formation of the right cavernous carotid artery, with a mild stenosis (less than 50%). ALL ABOVE CRITERIA BY NASCET. 4. There is calcified plaque formation of the left cavernous carotid artery, with a mild stenosis (less than 50%). ALL ABOVE CRITERIA BY NASCET. Electronically Signed: Maurisio Sanon MD at 19:21 EDT ,
[2024-03-28] MEDS: Gabapentin 600 MG Tablet PO (21:59)
[2024-03-28] MEDS: Amitriptyline 100 MG Tablet PO (22:00)
[2024-03-28] MEDS: Divalproex Sodium 250 MG Tablet 750 MG PO (22:00)
[2024-03-28] MEDS: Atorvastatin Calcium 80 MG Tablet PO (22:01)
[2024-03-29] VITALS (7 sets, daily range): BP systolic 112–130; BP diastolic 78–94; PULSE 71–86; RESP 16–20; TEMP 36–36.4; O2SAT 94–98; BMI 18.6
[2024-03-29 06:49] LABS: Absolute Lymphocyte Count 3.24 X10^3/uL (0.83-4.51); Absolute Neutrophil Count 3.4 X10^3/uL (2.0-7.7); Basophil# 0.05 X10^3/uL; Basophil% 0.7 % (0-1); Eosinophil# 0.15 X10^3/uL; Eosinophils% 2.1 % (0-5); Hematocrit 43.6 % (40-54); Hemoglobin 14.2 g/dL (13.0-16.5); Lymphocyte # 3.24 X10^3/ul (0.83-4.51); Lymphocyte % 44.4 % (19-41); Mean Corp Hgb Conc 32.6 g/dL (32-36); Mean Corpuscular Hgb 30.3 pg (27.0-32.0); Mean Platelet Vol. 8.8 fl (6.2-12.0); Monocyte# 0.42 X10^3/uL; Monocyte% 5.8 % (0-10); NRBC Flagged by Analyzer 0 % (0-5); Neutrophil # 3.42 X10^3/uL (2.7-7.7); Neutrophil % 46.7 % (47-70); Platelet Count 354 K/mm3 (150-450); RBC Distribution Width CV 13.6 % (11.6-14.6); RBC Distribution Width SD 45.6 fl (35.1-43.9); Red Blood Count 4.69 M/mm3 (4.6-6.2); White Blood Count 7.3 K/mm3 (4.4-11.0)
[2024-03-29 06:58] LABS: International Normalized Ratio 1.1; Prothrombin Time (Protime)PT. 14.4 SECONDS (11.7-14.9)
[2024-03-29] MEDS: Budesonide Respules 0.5 MG/2 ML AMPUL.NEB. INHALATION (07:05)
[2024-03-29] MEDS: Ipratropium/Albuterol Sulfate 3 ML AMPUL.NEB INHALATION (07:05)
[2024-03-29 08:04] LABS: ALB/GLOB Ratio 0.9 RATIO (0.9-2.4); AST(SGOT) 9 U/L (15-37); Alanine Aminotransfer ALT/SGPT 13 U/L (16-61); Albumin, Serum 2.8 g/dL (3.2-5.0); Alkaline Phosphatase 81 U/L (45-117); Anion Gap 5 (5-15); BUN 12 mg/dL (7-18); BUN/Creat Ratio 24.6 RATIO (10-20); Calcium,Total 8.9 mg/dL (8.5-10.1); Chloride 101 mmol/L (98-107); Cholesterol 125 mg/dL (200); Creatinine, Serum 0.49 mg/dL (0.70-1.30); EST Glomerular Filtration Rate 185 mL/min (>60); Est Glom Filt Rate - Afr Amer 223 mL/min (>60); Estimated Creatinine Clearance 124.05 ml/min; Glucose 80 mg/dL (74-106); High Density Lipoprotein 47 mg/dL; Protein, Total 5.8 g/dL (6.4-8.2); Sodium Level 136 mmol/L (136-145); Triglycerides 78 mg/dL; Very Low Density Lipoprotein 16 mg/dL (5-40)
[2024-03-29] MEDS: levETIRAcetam 500 MG Tablet PO (08:42)
[2024-03-29] MEDS: Divalproex Sodium 250 MG Tablet 750 MG PO (08:42)
[2024-03-29] MEDS: Enoxaparin 40 MG/0.4 ML Syringe SC (08:42)
[2024-03-29] MEDS: Aspirin 81 MG TAB.CHEW PO (08:42)
--- NOTE | 2024-03-29 09:45 | PN.HOSP_ITS ---
Reason for Visit Reason for Visit: Diagnoses Cerebral infarction, unspecified (03/28/24) Subjective Subjective Patient is a 63-year-old gentleman who presented with right weakness, decreased sensation. Suspicion of acute CVA entertained patient admitted to a monitored bed where he is currently undergoing further evaluation Objective Data Objective Data Vital Signs: Vital Signs Temp Pulse Resp BP Pulse Ox O2 Del Method 97.0 F L 77 16 130/87 H 94 Room Air 03/29/24 08:37 03/29/24 08:37 03/29/24 08:37 03/29/24 08:37 03/29/24 08:37 03/29/24 08:37 Oxygen Delivery Method Room Air Weight: 55.4 kg Body Mass Index (BMI) 18.6 Intake & Output: Intake and Output for Last 24 Hours 03/27/24 03/28/24 03/29/24 23:59 23:59 23:59 Output Total 250 / 250 Balance -250 / -250 Lab / Micro Data 03/29/24 05:05 03/29/24 05:05 Labs: Laboratory Results - last 24 hr 03/28/24 15:43: WBC 7.3, RBC 4.90, Hgb 14.7, Hct 45.9, MCV 93.7, MCH 30.0, MCHC 32.0, RDW Std Deviation 45.8 H, RDW Coeff of Aaron 13.4, Plt Count 356, MPV 8.4, Immature Gran % (Auto) 0.300, Neut % (Auto) 55.2, Lymph % (Auto) 35.9, [place] % (Auto) 6.7, Eos % (Auto) 1.2, Baso % (Auto) 0.7, Absolute Neuts (auto) 4.0, Absolute Lymphs (auto) 2.61, Nucleated RBC % 0, PT 14.4, INR 1.1, APTT 30.4, S odium 135 L, Potassium 3.5, Chloride 98, Carbon Dioxide 33.0 H, Anion Gap 5, BUN 12, Creatinine 0.63 L, Estim Creat Clear Calc 95.19, Est GFR (MDRD) Af Amer 166, Est GFR (MDRD) Non-Af 137, BUN/Creatinine Ratio 19.0, Glucose 88, Calcium 9.1, Troponin I High Sens 6 03/29/24 05:05: WBC 7.3, RBC 4.69, Hgb 14.2, Hct 43.6, MCV 93.0, MCH 30.3, MCHC 32.6, RDW Std Deviation 45.6 H, RDW Coeff of Aaron 13.6, Plt Count 354, MPV 8.8, Immature Gran % (Auto) 0.300, Neut % (Auto) 46.7 L, Lymph % (Auto) 44.4 H, [place] % (Auto) 5.8, Eos % (Auto) 2.1, Baso % (Auto) 0.7, Absolute Neuts (auto) 3.4, Absolute Lymphs (auto) 3.24, Nucleated RBC % 0, PT 14.4, INR 1.1, Sodium 136, Potassium 4.0, Chloride 101, Carbon Dioxide 30.0, Anion Gap 5, BUN 12, C reatinine 0.49 L, Estim Creat Clear Calc 124.05, Est GFR (MDRD) Af Amer 223, Est GFR (MDRD) Non-Af 185, BUN/Creatinine Ratio 24.6 H, Glucose 80, Calcium 8.9, Total Bilirubin 0.40, AST 9 L, ALT 13 L, Alkaline Phosphatase 81, Total Protein 5.8 L, Albumin 2.8 L, Globulin 3.0, Albumin/Globulin Ratio 0.9, Triglycerides 78, Cholesterol 125, LDL Cholesterol 62, VLDL Cholesterol 16, HDL Cholesterol 47 Radiography Diagnostic Testing: Radiology Impression Brain CT 03/28/24 15:24 IMPRESSION: No acute findings in the head/brain. Electronically Signed: Maurisio Sanon MD at 16:08 EDT , Chest X-Ray 03/28/24 15:50 IMPRESSION: Chronic scarring or pleural effusion. Electronically Signed: Maurisio Sanon MD at 16:27 EDT , Head/Neck CTA 03/28/24 18:08 IMPRESSION: 1. There is mild atherosclerotic plaque formation of the origin of the right internal carotid artery with less than 50% cross sectional diameter stenosis. ALL ABOVE CRITERIA BY NASCET. 2. There is mild atherosclerotic plaque formation of the origin of the left internal carotid artery with less than 50% cross sectional diameter stenosis. ALL ABOVE CRITERIA BY NASCET. 3. There is calcified plaque formation of the right cavernous carotid artery, with a mild stenosis (less than 50%). ALL ABOVE CRITERIA BY NASCET. 4. There is calcified plaque formation of the left cavernous carotid artery, with a mild stenosis (less than 50%). ALL ABOVE CRITERIA BY NASCET. Electronically Signed: Maurisio Sanon MD at 19:21 EDT , Physical Exam Narrative GENERAL: cooperative HEENT: Atraumatic; normocephalic EYES; Anicteric, Normal Conjunctiva NECK; supple, normal thyroid, RESPIRATORY: Diminished to auscultation CARDIOVASCULAR: Regular S1 S2, GI: soft, normoactive bowel sounds, : No Renal angle tenderness; EXTREMITIES: No edema, no clubbing, MUSCULOSKELETAL: no muscle wasting NEURO: Awake; focal weakness and decreased sensation in right upper extremity SKIN: No Rash PSYCH; Flat affect Assessment & Plan Assessment/Plan (1) Acute CVA (cerebrovascular accident): PLAN: Plan Patient is a 63-year-old gentleman who presented with right weakness, decreased sensation. Suspicion of acute CVA entertained patient admitted to a monitored bed where he is currently undergoing further evaluation 1. Suspected CVA ? Patient presented with right upper extremity weakness decree sensation as well as ataxia. Admitted to monitored bed undergoing subsequent evaluation with MRI 2D echo with bubble study as well as PT OT eval. As part of his management consult was placed to [facility] teleneurology 2. COPD ? Currently not in exacerbation aerosol treatment as needed 3. History of absent seizures ? Symptoms controlled on Keppra and Depakote as well as gabapentin did continue 4. Tobacco dependence ? Counseled on cessation, offered nicotine patch for tobacco cravings 5. DVT prophylaxis ? On enoxaparin Time spent in the patient's overall evaluation,decision-making process, review of diagnostic data, adjustment of management, discussion with other providers, nursing nursing and ancillary staff involved in patient's care documentation, 40 Minutes Charges/Coding Visit Charges Inpatient E&M: 53379 Subs Hosp L2
[2024-03-29] MEDS: Albuterol 2.5 MG/3 ML VIAL.NEB. INHALATION (10:27)
[2024-03-29] MEDS: Gabapentin 600 MG Tablet PO (13:03)
--- NOTE | 2024-03-29 14:58 | NEURO.CONS ---
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 CTA- b/l ICA mild stenosis. The onset he described as sudden while working on the computer. LDL-62. Diagnosis: Stroke vs peripheral etiology Plan: ASA and statin. Follow up MRI Brain and TTE. OT/PT/ART MODEL. If MRI brain is negative, then consider MRI C-spine now and EMG/NCV after 7-10 days to rule out peripheral etiology. I personally attended this patient and spent a total time of 80 minutes evaluating this patient including clinical assessment, review of chart, medical history imaging, and determining appropriate treatment and workup. 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 CTA- b/l ICA mild stenosis. The onset he described as sudden while working on the computer. LDL-62. Does report some chronic shortness of breath and chronic cough with his COPD unchanged from usual and sometimes will get a runny nose. ROS otherwise negative [facility] Medical History (Updated 03/28/24 @ 17:[address] Raleigh Hernandez, DO) Pneumonia Pneumonia Left ankle injury Bilateral tennis elbow Depression Sepsis LACEY (obstructive sleep apnea) Lung nodule Hoarseness Sleep-related breathing disorder Pneumonia Encephalopathy Acute respiratory failure COPD (chronic obstructive pulmonary disease) GERD (gastroesophageal reflux disease) Bipolar disorder Migraine Tobacco abuse Spinal stenosis Traumatic brain injury Home Medications ?Medication ?Instructions ?Recorded ?Last Taken ?Type amitriptyline 100 mg tablet 100 mg PO QHS sleep 06/30/19 03/21/24 History levetiracetam 500 mg tablet 500 mg PO DAILY Check with primary 04/28/20 03/28/24 History doctor fluticasone fur. 200 mcg-umeclid 1 inh inhalation DAILY #60 ea 09/24/23 03/28/24 Rx 62.5 mcg-vilant 25 mcg inhalat.powder (Trelegy Ellipta) gabapentin 600 mg tablet 600 mg PO TID 11/25/23 03/28/24 History albuterol sulfate 90 mcg/actuation 2 puff inhalation Q4H PRN 03/15/24 03/28/24 Rx aerosol inhaler shortness of breath or wheezing #8.5 grams albuterol sulfate 2.5 mg/3 mL 2.5 mg (3 mL) inhalation Q4H PRN 03/24/24 03/28/24 Rx (0.083 %) solution for nebulization #120 vials divalproex 250 mg tablet,delayed 750 mg PO BID 03/28/24 03/28/24 History release ibuprofen 200 mg tablet (Addaprin) 400 mg PO Q8H PRN pain 03/28/24 03/28/24 History Allergy/AdvReac Type Severity Reaction Status Date / Time dextromethorphan HBr (From AdvReac Intermediate tachycardia, Verified 03/28/24 14:48 NyQuil) feels anxious doxylamine (From NyQuil) AdvReac Intermediate Tachycardia, Verified 03/28/24 14:48 feels anxious pseudoephedrine HCl (From AdvReac Intermediate Tachycardia, Verified 03/28/24 14:48 NyQuil) feels anxious sertraline HCl (From Zoloft) AdvReac Diarrhea Verified 03/28/24 14:48 Family History Father Dementia Alzheimers disease Diabetes Mother Diabetes Surgical History History of hernia repair Social History Smoking Status: Heavy Smoker (>10/day) Tobacco: How many years used: 30 second hand exposure: Yes alcohol intake: never substance use type: does not use Vital Signs Vital Signs Vital Signs: 03/28/24 15:39 03/28/24 15:41 03/28/24 15:54 Temperature Temperature Source Pulse Rate 78 78 Respiratory Rate 16 15 Respiratory Effort Respiratory Depth Respiratory Pattern Blood Pressure 118/89 H 164/100 H Blood Pressure Mean 98 121 Blood Pressure Source Blood Pressure Position Blood Pressure Location Pulse Ox 99 95 Oxygen Delivery Method Room Air Room Air Room Air 03/28/24 16:24 03/28/24 16:54 03/28/24 17:24 Temperature Temperature Source Pulse Rate 80 80 75 Respiratory Rate 13 15 16 Respiratory Effort Respiratory Depth Respiratory Pattern Blood Pressure 146/101 H 132/96 H 136/108 H Blood Pressure Mean 116 108 117 Blood Pressure Source Blood Pressure Position Blood Pressure Location Pulse Ox 97 98 98 Oxygen Delivery Method Room Air Room Air Room Air 03/28/24 17:25 03/28/24 17:54 03/28/24 18:24 Temperature 98.4 F Temperature Source Pulse Rate 75 77 88 Respiratory Rate 16 18 16 Respiratory Effort Respiratory Depth Respiratory Pattern Blood Pressure 136/108 H 140/103 H 137/86 H Blood Pressure Mean 117 115 103 Blood Pressure Source Blood Pressure Position Blood Pressure Location Pulse Ox 98 98 97 Oxygen Delivery Method Room Air Room Air 03/28/24 19:00 03/28/24 19:30 03/28/24 19:35 Temperature 97.6 F L Temperature Source Temporal Pulse Rate 72 81 83 Respiratory Rate 16 18 18 Respiratory Effort Respiratory Depth Respiratory Pattern Blood Pressure 126/91 H 125/74 H 124/85 H Blood Pressure Mean 102 91 98 Blood Pressure Source Monitor Blood Pressure Position Supine Blood Pressure Location Right Arm Pulse Ox 97 99 95 Oxygen Delivery Method Room Air Room Air Room Air 03/28/24 20:58 03/28/24 21:59 03/28/24 23:25 Temperature 97.4 F L Temperature Source Temporal Pulse Rate 80 Respiratory Rate 18 Respiratory Effort Normal Non-Labored Respiratory Depth Normal Respiratory Pattern Normal Blood Pressure 126/81 H Blood Pressure Mean 96 Blood Pressure Source Monitor Blood Pressure Position Semi-Fowlers Blood Pressure Location Right Arm Pulse Ox 98 94 Oxygen Delivery Method Room Air Room Air Room Air 03/29/24 01:51 03/29/24 05:47 03/29/24 07:05 Temperature 97.2 F L 96.8 F L Temperature Source Temporal Temporal Pulse Rate 80 71 79 Respiratory Rate 18 18 20 H Respiratory Effort Respiratory Depth Respiratory Pattern Normal Blood Pressure 126/92 H 127/94 H Blood Pressure Mean 103 105 Blood Pressure Source Monitor Monitor Blood Pressure Position Supine Semi-Fowlers Blood Pressure Location Right Arm Right Arm Pulse Ox 94 94 Oxygen Delivery Method Room Air Room Air 03/29/24 07:05 03/29/24 08:30 03/29/24 08:37 Temperature 97.0 F L Temperature Source Temporal Pulse Rate 77 Respiratory Rate 16 Respiratory Effort Normal Non-Labored Respiratory Depth Normal Respiratory Pattern Normal Blood Pressure 130/87 H Blood Pressure Mean 101 Blood Pressure Source Monitor Blood Pressure Position Semi-Fowlers Blood Pressure Location Right Arm Pulse Ox 95 94 Oxygen Delivery Method Room Air Room Air Room Air 03/29/24 10:27 03/29/24 12:58 Temperature 97.6 F L Temperature Source Temporal Pulse Rate 85 83 Respiratory Rate 20 H 16 Respiratory Effort Respiratory Depth Respiratory Pattern Normal Blood Pressure 112/78 Blood Pressure Mean 89 Blood Pressure Source Monitor Blood Pressure Position Semi-Fowlers Blood Pressure Location Right Arm Pulse Ox 98 Oxygen Delivery Method Room Air Weight Weight: 55.4 kg Body Mass Index (BMI) 18.6 EEG Results Procedure Details EEG Procedure Details: ELIUD BLOUNT is a 63 year old M with a past medical history of , who presents for evaluation of Electroencephalogram on DATE at TIME NIHSS NIHSS Nursing Documentation NIHSS Nursing Documentation: NIHSS: Ischemic Stroke/TIA Start: 03/28/24 19:31 Text: For PCU Patients: NIH and Neuro Check every 4 Status: Active hours, PRN and with change in RN caregiver. Freq: [id number] Protocol: Activity Type Activity Date Activity User E-sign Co-sign Detail Recorded Client Recorded Date Recorded By Document 03/29/24 12:53 RV desktop 03/29/24 12:53 RV 03/29/24 12:53 NIH Stroke Scale [NIHSS] A score of 0 is normal or asymptomatic . Total possible score is 42. Inpatient: RN or Physician to activate a stroke alert for onset of new stroke symptoms or with NIHSS increase >/= 3 points. Following change in neurological status, NIHSS will be performed per physician order or more frequently PRN. -1a. Level of Consciousness Alert; keenly responsive -1b. LOC Questions Answers BOTH questions correctly. -1c. LOC Commands Performs both tasks correctly . -2. Best Gaze Normal -3. Visual No visual loss -4. Facial Palsy Normal symmetrical movements -5a. Left Arm No drift; arm holds 90 (or 45 ) degrees for full 10 seconds -5b. Right Arm No drift; arm holds 90 (or 45 ) degrees for full 10 seconds -6a. Left Leg No drift; leg holds 30-degree position for full 5 seconds -6b. Right Leg No drift; leg holds 30-degree position for full 5 seconds -7. Limb Ataxia Absent -8. Sensory Mild-to- moderate sensory loss; -9. Best Language No aphasia; normal -10. Dysarthria Mild-to- moderate dysarthria; -11. Extinction and Inattention No abnormality -Total 2 Query Text:A score of 0 is normal or asymptomatic. Total possible score is 42 . ED: Notify Physician for NIHSS increase by > / = 3 points. Inpatient: RN or Physician to activate a stroke alert for NIHSS increase of > / = 3 points. Coma Scale [Assess] -Eye Opening Spontaneous -Motor Obeys Commands -Verbal Oriented [Total] -Coma Scale Total 15 NIHSS 1a. Level of Consciousness: Alert; keenly responsive 1b. LOC Questions: Answers BOTH questions correctly. 1c. LOC Commands: Performs both tasks correctly. 2. Best Gaze: Normal 3. Visual: No visual loss 4. Facial Palsy: Normal symmetrical movements 5a. Left Arm: No drift; arm holds 90 (or 45) degrees for full 10 seconds 5b. Right Arm: No drift; arm holds 90 (or 45) degrees for full 10 seconds 6a. Left Leg: No drift; leg holds 30-degree position for full 5 seconds 6b. Right Leg: No drift; leg holds 30-degree position for full 5 seconds 7. Limb Ataxia: Absent 8. Sensory: Jons-ov-[id number] sensory loss; 9. Best Language: No aphasia; normal 10. Dysarthria: Normal 11. Extinction and Inattention: No abnormality Total: 1 Physical Exam Narrative General: The patient appears nutritionally appropriate, well-groomed, and appears comfortable in no acute distress. Mental Status:? The patient?s mental status was normal including orientation.? Language was intact.? Cranial nerves:? Visual henry full, and extra-ocular motion was intact. Symmetric face. Motor: Noticed to have weakness of hand flexion and extension, unable to make a fist. Sensation: decrease sensation on RUE, elbow down along with paresthesias.? Coordination:? Unable to perform on right side due to right hand weakness. dysmetria. Gait:? deferred. Lab / Micro Data 03/29/24 05:05 03/29/24 05:05 Labs: Laboratory Results - last 24 hr 03/28/24 15:43: WBC 7.3, RBC 4.90, Hgb 14.7, Hct 45.9, MCV 93.7, MCH 30.0, MCHC 32.0, RDW Std Deviation 45.8 H, RDW Coeff of Aaron 13.4, Plt Count 356, MPV 8.4, Immature Gran % (Auto) 0.300, Neut % (Auto) 55.2, Lymph % (Auto) 35.9, Scurry % (Auto) 6.7, Eos % (Auto) 1.2, Baso % (Auto) 0.7, Absolute Neuts (auto) 4.0, Absolute Lymphs (auto) 2.61, Nucleated RBC % 0, PT 14.4, INR 1.1, APTT 30.4, Sodium 135 L, Potassium 3.5, Chloride 98, Carbon Dioxide 33.0 H, Anion Gap 5, BUN 12, Creatinine 0.63 L, Estim Creat Clear Calc 95.19, Est GFR (MDRD) Af Amer 166, Est GFR (MDRD) Non-Af 137, BUN/Creatinine Ratio 19.0, Glucose 88, Calcium 9.1, Troponin I High Sens 6 03/29/24 05:05: WBC 7.3, RBC 4.69, Hgb 14.2, Hct 43.6, MCV 93.0, MCH 30.3, MCHC 32.6, RDW Std Deviation 45.6 H, RDW Coeff of Aaron 13.6, Plt Count 354, MPV 8.8, Immature Gran % (Auto) 0.300, Neut % (Auto) 46.7 L, Lymph % (Auto) 44.4 H, Scurry % (Auto) 5.8, Eos % (Auto) 2.1, Baso % (Auto) 0.7, Absolute Neuts (auto) 3.4, Absolute Lymphs (auto) 3.24, Nucleated RBC % 0, PT 14.4, INR 1.1, Sodium 136, Potassium 4.0, Chloride 101, Carbon Dioxide 30.0, Anion Gap 5, BUN 12, Creatinine 0.49 L, Estim Creat Clear Calc 124.05, Est GFR (MDRD) Af Amer 223, Est GFR (MDRD) Non-Af 185, BUN/Creatinine Ratio 24.6 H, Glucose 80, Calcium 8.9, Total Bilirubin 0.40, AST 9 L, ALT 13 L, Alkaline Phosphatase 81, Total Protein 5.8 L, Albumin 2.8 L, Globulin 3.0, Albumin/Globulin Ratio 0.9, Triglycerides 78, Cholesterol 125, LDL Cholesterol 62, VLDL Cholesterol 16, HDL Cholesterol 47 Imaging Radiology Impression Brain CT 03/28/24 15:24 IMPRESSION: No acute findings in the head/brain. Electronically Signed: Maurisio Sanon MD at 16:08 EDT , Chest X-Ray 03/28/24 15:50 IMPRESSION: Chronic scarring or pleural effusion. Electronically Signed: Maurisio Sanon MD at 16:27 EDT , Echocardiogram 03/28/24 18:08 Interpretation Summary The estimated ejection fraction is 55 %. No evidence for diastolic dysfunction. Ordering Physician: Becky Thomas Referring Physician: CHARAN ARNDT Performed By: Padmini Carrasco and Student Head/Neck CTA 03/28/24 18:08 IMPRESSION: 1. There is mild atherosclerotic plaque formation of the origin of the right internal carotid artery with less than 50% cross sectional diameter stenosis. ALL ABOVE CRITERIA BY NASCET. 2. There is mild atherosclerotic plaque formation of the origin of the left internal carotid artery with less than 50% cross sectional diameter stenosis. ALL ABOVE CRITERIA BY NASCET. 3. There is calcified plaque formation of the right cavernous carotid artery, with a mild stenosis (less than 50%). ALL ABOVE CRITERIA BY NASCET. 4. There is calcified plaque formation of the left cavernous carotid artery, with a mild stenosis (less than 50%). ALL ABOVE CRITERIA BY NASCET. Electronically Signed: Maurisio Sanon MD at 19:21 EDT , Active Medications Active Medications Active Medications: Current Medications Generic Name Dose Route Start Last Admin Trade Name Freq PRN Reason Stop Dose Admin Acetaminophen 650 mg 03/28/24 19:31 Acetaminophen 325 Mg Tablet PO Q6H PRN PRN Pain 1-10 Or Fever >100.7 Albuterol Sulfate 2.5 mg 03/28/24 19:31 03/29/24 10:27 Albuterol 2.5 Mg/3 Ml Vial.Neb. INHALATION 2.5 mg Q2H PRN PRN Administration SOB &/OR WHEEZING Albuterol/Ipratropium 3 ml 03/29/24 00:00 03/29/24 07:05 Ipratropium/Albuterol Sulfate 3 Ml Ampul.Neb INHALATION 3 ml Q6HWA.RT TOMASA Administration Amitriptyline HCl 100 mg 03/28/24 22:00 03/28/24 22:00 Amitriptyline 100 Mg Tablet PO 100 mg QHS TOMASA Administration Aspirin 81 mg 03/29/24 08:00 03/29/24 08:42 Aspirin 81 Mg Tab.Chew PO 81 mg BREAKFAST TOMASA Administration Atorvastatin Calcium 80 mg 03/28/24 22:00 03/28/24 22:01 Atorvastatin Calcium 80 Mg Tablet PO 80 mg QHS TOMASA Administration Budesonide 0.5 mg 03/29/24 06:00 03/29/24 07:05 Budesonide Respules 0.5 Mg/2 Ml Ampul.Neb. INHALATION 0.5 mg Q12H.RT TOMASA Administration Divalproex Sodium 750 mg 03/28/24 22:00 03/29/24 08:42 Divalproex Sodium 250 Mg Tablet PO 750 mg BID TOMASA Administration Enoxaparin Sodium 40 mg 03/29/24 10:00 03/29/24 08:42 Enoxaparin 40 Mg/0.4 Ml Syringe SC 40 mg DAILY TOMASA Administration Gabapentin 600 mg 03/28/24 22:00 03/29/24 13:03 Gabapentin 600 Mg Tablet PO 600 mg TID TOMASA Administration Hydralazine HCl 5 mg 03/28/24 19:31 Hydralazine 20 Mg/Ml Vial IV 03/29/24 19:31 Q30M PRN maintain BP parameters with HR <60 Sodium Chloride 100 mls @ 15 mls/hr 03/28/24 19:56 IV .Q6H40M PRN Saline Flush Sodium Chloride 100 mls @ 15 mls/hr 03/28/24 19:56 IV .Q6H40M PRN Additional IVPB Infusion Labetalol HCl 10 - 20 mg 03/28/24 19:31 Labetalol (Prefilled) 20 Mg/4 Ml Vial IV 03/29/24 19:31 Q10M PRN PRN maintain BP parameters with HR >/=60 Levetiracetam 500 mg 03/29/24 10:00 03/29/24 08:42 Levetiracetam 500 Mg Tablet PO 500 mg DAILY TOMASA Administration Melatonin 3 mg 03/28/24 19:31 Melatonin 3 Mg Tablet PO QHS PRN PRN INSOMNIA Ondansetron HCl 4 mg 03/28/24 19:31 Ondansetron 4 Mg/2 Ml Vial IV Q8H PRN PRN NAUSEA/VOMITING Senna/Docusate Sodium 2 tablet 03/28/24 19:31 Senna/Docusate Sodium 1 Tablet PO BID PRN PRN Constipation Sodium Chloride 10 - 40 ml 03/28/24 19:56 0.9% Saline Lock 10 Ml Syringe IV UD PRN SALINE FLUSH
--- NOTE | 2024-03-29 15:25 | CASEMGMT ---
This [facility] and [facility] went to meet with patient to complete a PHQ 9 as patient may have had a Stroke. Just before SW walked in patient appeared like he was going to get up out of bed. He did not he was just sitting on the side of the bed. The room was dark. Patient's family was present. SW squatted down to talk with patient. SW explained why SW was coming to see patient. Patient would not look at SW he kept his head looking down. Patient at one point turned to his and said, I am not staying. Patient was frustrated with waiting on results. Patient said he will leave. SW asked patient if there was anything SW can help with. There was no response. SW apologized to patient that he was not happy with how things are moving. SW then stepped out. SW did not complete a PHQ 9 with patient due to his frustration. Eloise Khalil DATABASE MARKETING SPECIALIST [employer]
--- NOTE | 2024-03-29 16:19 | CASEMGMT ---
Met with patient to complete VERDIN form. VERDIN form explained to patient who voiced understanding and signed form. Original form placed in pt?s chart and copy provided to patient. Sadie Ferro, Discharge Planning Asst
--- NOTE | 2024-03-30 07:12 | DS.PCM_ITS ---
Providers Date of Admission: 03/28/24 Date of Discharge: 03/29/24 Primary Care Physician: Dr. Priscilla Arndt MD Consultations 03/28/24 19:31 Consult: Tele-Neurology Routine Consulting Provider: [facility] Reason for Consult: Acute Ischemic Stroke/TIA EMERGENT Consult: No MD Notified: Yes Date Notified: 03/28/24 Time Notified: 20:11 Method of Notification: Answering Service Nursing Unit Staff Notify [facility] of Tele-Neurology Consult: Yes Reason For Visit: SUSPECT CVA Diagnosis Discharge Diagnosis (1) Acute CVA (cerebrovascular accident): Status: Acute Code(s): I63.9 - Cerebral infarction, unspecified Plan Patient is a 63-year-old gentleman who presented with right weakness, decreased sensation. Suspicion of acute CVA entertained patient admitted to a monitored bed where he is currently undergoing further evaluation 1. Suspected CVA ? Patient presented with right upper extremity weakness decree sensation as well as ataxia. Admitted to monitored bed undergoing subsequent evaluation with MRI 2D echo with bubble study as well as PT OT eval. As part of his management consult was placed to [facility]?patient MRI came back [facility] further evaluation to evaluate for peripheral cause including MRI of the cervical spine as well as EMG as outpatient. Patient was informed of this he however elected to sign out AGAINST MEDICAL ADVICE attempt made for patient to rescind his decision proved futile 2. COPD ? Currently not in exacerbation aerosol treatment as needed 3. History of absent seizures ? Symptoms controlled on Keppra and Depakote as well as gabapentin did continue 4. Tobacco dependence ? Counseled on cessation, offered nicotine patch for tobacco cravings 5. DVT prophylaxis ? On enoxaparin Time spent in the patient's overall evaluation,decision-making process, review of diagnostic data, adjustment of management, discussion with other providers, nursing nursing and ancillary staff involved in patient's care documentation, 40 Minutes Medications at Discharge Home Medications amitriptyline 100 mg tablet 100 mg PO QHS sleep 06/30/19 levetiracetam 500 mg tablet 500 mg PO DAILY Check with primary doctor 04/28/20 fluticasone fur. 200 mcg-umeclid 62.5 mcg-vilant 25 mcg inhalat.powder (Trelegy Ellipta) 1 inh inhalation DAILY #60 ea 04/10/24 gabapentin 600 mg tablet 600 mg PO TID 11/25/23 albuterol sulfate 90 mcg/actuation aerosol inhaler 2 puff inhalation Q4H PRN shortness of breath or wheezing #8.5 grams 03/15/24 albuterol sulfate 2.5 mg/3 mL (0.083 %) solution for nebulization 2.5 mg (3 mL) inhalation Q4H PRN #120 vials 03/24/24 divalproex 250 mg tablet,delayed release 750 mg PO BID 03/28/24 ibuprofen 200 mg tablet (Addaprin) 400 mg PO Q8H PRN pain 03/28/24 Weight / BMI Weight Weight: 55.4 kg Body Mass Index (BMI) 18.6 ABG / Lab / Microbiology Data 03/29/24 05:05 03/29/24 05:05 Laboratory: Laboratory Results - last 24 hr 03/29/24 05:05: Sodium 136, Potassium 4.0, Chloride 101, Carbon Dioxide 30.0, Anion Gap 5, BUN 12, Creatinine 0.49 L, Estim Creat Clear Calc 124.05, Est GFR (MDRD) Af Amer 223, Est GFR (MDRD) Non-Af 185, BUN/Creatinine Ratio 24.6 H, Glucose 80, Calcium 8.9, Total Bilirubin 0.40, AST 9 L, ALT 13 L, Alkaline Phosphatase 81, Total Protein 5.8 L, Albumin 2.8 L, Globulin 3.0, Albumin/Globulin Ratio 0.9, Triglycerides 78, Cholesterol 125, LDL Cholesterol 62, VLDL Cholesterol 16, HDL Cholesterol 47 Radiography Diagnostic Testing: Radiology Impression Brain MRI 03/28/24 18:08 IMPRESSION: 1. No MRI evidence of acute or subacute ischemic infarct or acute intracranial abnormality. 2. 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 3. No significant interval change when compared to MRI brain of 03/24/2019. Electronically Signed: Miguel Ángel Davis MD at 15:23 EDT , Echocardiogram 03/28/24 18:08 Interpretation Summary The estimated ejection fraction is 55 %. No evidence for diastolic dysfunction. Ordering Physician: Becky Thomas Referring Physician: PRISCILLA ARNDT Performed By: Padmini Carrasco and Student D/C Instructions Discharge Diet: No restrictions Discharge Activity: Return to Normal Activity Call your doctor if you observe: Fever of 101 or Higher, Shortness of breath, Fainting spells and Chest pain Meaningful Use Info Meaningful Use Meaningful Use Diagnoses (Choose all that apply): None applicable Ischemic Stroke Statin Dosing Therapy Reference: STATIN DOSE THERAPY REFERENCE: * Patients > 75 years receive moderate or high dose statin therapy. * Patients 75 years or YOUNGER should receive HIGH intensity statin dose unless contraindicated. You will be required to document reason for non-treatment if statin daily dose does not meet guidelines. HIGH DOSE STATIN THERAPY DAILY Atorvastatin > than or = to 40 mg Rosuvastatin > than or = to 20 mg Amlodipine + Atorvastatin > than or = to 2.5/40 mg Ezetimibe + Simvastatin 10/80 mg Simvastatin 80mg Discharge Plan Admission Admit Date/Time: 03/28/24 18:00 Attending Provider: Calvin Pedro Primary Care Provider: Priscilla Arndt Consulting Providers: Al Conner; aNel Grullon; Charissa Vickers; Maria M Triana; Swathi Pete; Crow Barrera; Pauline Lyons; Saqib Holcomb; Yusuf Tripp; Nehemias Martines; Sofia Smith; Jerome Pollack; Laxmi Oh; Flaco Hidalgo; Otto Gorman; Saturnino Calixto; Chiara Mccracken; Chandler Drake; Robyn Fontana; Kandi Ray; Becky Thomas; Hyun Duncan Discharge Orders/Prescriptions Prescriptions: No Action Trelegy Ellipta 200-62.5-25 mcg blister with device 1 inh inhalation DAILY Qty: 60 11RF gabapentin 600 mg tablet 600 mg PO TID amitriptyline 100 MG tablet 100 mg PO QHS Patient Comments: TAKE 1 TABLET BY MOUTH EVERY DAY levetiracetam 500 MG tablet 500 mg PO DAILY divalproex 250 mg tablet,delayed release (DR/EC) 750 mg PO BID ibuprofen [Addaprin] 200 mg tablet 400 mg PO Q8H PRN (Reason: pain) albuterol sulfate 90 mcg/actuation HFA aerosol inhaler 2 puff inhalation Q4H PRN (Reason: shortness of breath or wheezing) Qty: 8.5 11RF Rx Instructions: administer with spacer albuterol sulfate 2.5 mg /3 mL (0.083 %) solution for nebulization 2.5 mg inhalation Q4H PRN Qty: 120 4RF Rx Instructions: Use q4 hours and PRN for wheezing Referrals / Follow Up: Priscilla Arndt MD [Primary Care Provider] - Disposition Disposition (needs filled in before D/C Order can be placed): Against Medical Advice Charges/Coding Visit Charges Inpatient E&M: 19252 Disch Hosp >30min
== END 2024-03-29 19:07 | disposition left against medical advice (07) ==
LOC: ED 17:55 → PCU 18:37
PROVIDERS: Admitting Provider Internal Medicine; Emergency Provider Emergency Medicine; PCP Internal Medicine; Visit Provider Internal Medicine
DX: I63.9 Cerebral infarction, unspecified (principal); J44.9 Chronic obstructive pulmonary disease, unspecified; G40.802 Other epilepsy, not intractable, without status epilepticus; R94.31 Abnormal electrocardiogram [ECG] [EKG]; R20.2 Paresthesia of skin; Z79.51 Long term (current) use of inhaled steroids; R53.1 Weakness; G47.33 Obstructive sleep apnea (adult) (pediatric); K21.9 Gastro-esophageal reflux disease without esophagitis; Z79.899 Other long term (current) drug therapy; R29.702 NIHSS score 2; R27.0 Ataxia, unspecified; F17.200 Nicotine dependence, unspecified, uncomplicated
CPT/HCPCS: 36415; 70450; 70496; 70498; 70551; 71045; 80048; 80053; 80061; 84484; 85025; 85610; 85730; 92610; 93005; 93306; 94640; 94762; 96372; 97162; 97166; 97802; 99221; 99285; Q9967; A4216; G0378

== ENCOUNTER → 2024-04-07 | Outpatient (CLI) | payer MEDICARE, MEDICAID, SELFPAY ==
--- OUTSIDE RECORDS SUMMARY | 2024-04-07 20:34 | XMS RPT_ITS | CCD ---
Author Organization [facility] Care Team Providers Care Bisque Cleaner Name Role Phone Tiffani ARBOLEDA, Charan Primary Care Provider [phone] Lance Gillespie (Hist) Unavailable Unava ilable Charan Calhoun MD Primary Care Provider RADHA LOCKWOOD Attending Unavailable CHARAN CALHOUN Referring Unavailable RADHA LOCKWOOD Attending Unavailable Charan Arndt MD Primary Care Provider Lance Gillespie (Hist) Unavailable Unava ilable GANTA, CHARAN Primary Care Unavailable ALYCIA ARNOLD Referring Unavailable GANTA, CHARAN Primary Care Unavailable ALYCIA ARNOLD Attending Unavailable GANTA, CHARAN Primary Care Unavailable AUTUMN PERRIN Attending Unavailable GANTA, CHARAN Primary Care Unavailable GANTA, CHARAN Primary Care Unavailable GANTA, CHARAN Primary Care Unavailable GANTA, CHARAN Primary Care Unavailable GANTA, CHARAN Primary Care Unavailable ALYCIA ARNOLD Referring Unavailable Allergies Allergy Classification Reported Allergen(s) Allergy Type Date of Onset Reaction(s) Facility (20 sources) Acetaminophen / Dextromethorphan / Doxylamine / Pseudoephedrine; Translations: [[id number]-XA-AC ETAMINOPHEN] Drug Allergy 8 Intolerance [facility] Work Phone: (20 sources) Baclofen; Translations: [BACLOFEN] Drug Allergy 7 Other: See Comments [facility] Work Phone: (20 sources) Dextromethorphan; Translations: [DEXTROMETHORPHAN] Drug Allergy 7 Other: See Comments [facility] Work Phone: (20 sources) Doxylamine; Translations: [DOXYLAMINE] Drug Allergy 7 Other: See Comments [facility] Work Phone: [phone] (20 sources) Pseudoephedrine; Translations: [PSEUDOEPHEDRINE] Drug Allergy 7 Other: See Comments [facility] Work Phone: [phone] (20 sources) Sertraline; Translations: [SERTRALINE] Drug Allergy 7 Diarrhea [facility] Work Phone: [phone] (20 sources) Sertraline; Translations: [SERTRALINE HCL] Drug Allergy 1 Diarrhea, GI Upset [facility] Work Phone: [phone] (20 sources) Dcejmpe-Lu-Mx-Acetam inophen-Gg; Translations: [CHRUTWQ-MK-KA-ACETA MINOPHEN-GG] Drug Allergy 7 Other: See Comments [facility] Work Phone: [phone]- Medications Current Medications Medication Drug Class(es) Dates Sig (Normalized) Sig (Original) [id number] 200 actuat albuterol 0.09 mg/actuat metered dose inhaler (20 sources) beta2-Adrenergic Agonist Start: 10-22-2022 take 2 puff(s) by inhalation every four hours as needed albuterol HFA 90 mcg/act inhaler INHALE 2 (TWO) PUFFS EVERY 4 HOURS NEEDED SHORTNESS OF BREATH; ADMINISTER WITH SPACER 0 10/22/2022 Active Start: 04-15-2022 take 2.5 mg by inhal ation every four hours as needed albuterol (PROVENTIL) 2.5 mg /3 mL (0.083 %) nebulizer solution Use 3 mL via nebulizer every 4 hours as needed for wheezing/shortness of breath. Use over 5-15minutes. 36 mL 3 04/15/2022 Active Start: 07-02-2017 End: 04-15-2022 albuterol (PROVENTIL) 5 mg/m L nebu Inhale 0.5 mL as instructed every 4 hours while awake. 1 DOSE NOW - BACK OFFICE. PLACE 0.5 ML PER DROPPER AND 2.5 ML OF NORMAL SALINE INTO RESERVOIR. 20 mL 3 04/15/2022 Active Start: 01-14-2017 take 2 puff(s) by in halation every four hours as needed for wheezing albuterol HFA (VENTOLIN HFA) 90 mcg/actuation inhaler Indications: Chronic obstructive pulmonary disease, unspecified COPD type (HCC) Inhale 2 Puffs as instructed every 4 hours as needed for Wheezing/Shortness of Breath. 1 Inhaler 12 01/14/2017 Active Start: 09-02-2016 End: 04-15-2023 albuterol (PROVENTIL) 5 mg/m L nebu Indications: Cough Inhale 0.5 mL as instructed one time only for 1 dose. 1 DOSE NOW - BACK OFFICE. PLACE 0.5 ML PER DROPPER AND 2.5 ML OF NORMAL SALINE INTO RESERVOIR. 1 mL 09/02/2016 04/07/2023 Discontinued Comment on above: Inhale 2 Puffs as in structed every 4 hours as needed for Wheezing/Shortness of Breath. Inhale 0.5 mL as ins tructed every 4 hours while awake. 1 DOSE NOW - BACK OFFICE. PLACE 0.5 ML PER DROPPER AND 2.5 ML OF NORMAL SALINE INTO RESERVOIR. Inhale 0.5 mL as ins tructed one time only for 1 dose. 1 DOSE NOW - BACK OFFICE. PLACE 0.5 ML PER DROPPER AND 2.5 ML OF NORMAL SALINE INTO RESERVOIR. Use 3 mL via nebuliz er every 4 hours as needed for wheezing/shortness of breath. Use over 5-15minutes. amitriptyline hydrochloride 100 mg oral tablet (19 sources) Tricyclic Antidepressant Start: 024 take 1 tablet by mouth once daily at bedtime amitriptyline (ELAVIL) 100 mg tablet Take 1 tablet by mouth daily at bedtime. Prescribed by neurology 10/15/2023 Active Start: 05-18-2023 take 1 tablet by george th once daily at bedtime amitriptyline (Elavil) 100 MG tablet Indications: Migraine without aura, not intractable, without status migrainosus (CMS/HCC) TAKE 1 TABLET BY MOUTH EVERY NIGHT AT BEDTIME 90 tablet 11 05/18/2023 Active Start: 01-13-2019 End: 04-07-2023 take 1 tablet by mouth once daily at bedtime amitriptyline (ELAVIL) 100 mg tablet Take 1 tablet by mouth daily at bedtime. 3 01/13/2019 04/07/2023 Discontinued Comment on above: Take 1 tablet by george th daily at bedtime. amoxicillin 875 mg / clavulanate 125 mg oral tablet (4 sources) Penicillin-class Antibacterial Start: 04-03-20 End: 04-10-20 take 1 tablet by mouth twice daily amoxicillin-clavulanic acid (AUGMENTIN) 875-125 mg per tablet Indications: Rhinosinusitis Take 1 tablet by mouth two times a day for 7 days. 14 tablet 0 04/03/2023 04/10/2023 Active Start: 05-17-2022 End: 05-24-2022 take 1 tablet by mouth twice daily amoxicillin-clavulanic acid (AUGMENTIN) 875-125 mg per tablet Take 1 tablet by mouth twice daily for 7 days. 14 tablet 0 05/17/2022 05/24/2022 Active Comment on above: Take 1 tablet by george twice daily for 7 days. Take 1 tablet by george two times a day for 7 days. ascorbic acid 60 mg / beta carotene 5000 unt / copper sulfate 40 mg / dl-alpha tocopheryl acetate 30 unt / sodium selenite 0.04 mg / zinc oxide 40 mg oral tablet (2 sources) Vitamin C Multiple Vitamin (Multivitamin Adult) tablet as directed Orally 0 Active azithromycin 250 mg oral tablet (2 sources) Macrolide Antimicrobial Start: 05-17-20 End: 05-22-20 take 2 tablets by mouth once daily, then take 1 tablet by mouth once daily azithromycin (ZITHROMAX) 250 mg tablet Take 2 tablets by mouth once daily for 1 day, THEN 1 tablet once daily for 4 days. 6 tablet 0 05/17/2022 05/22/2022 Active Comment on above: Take 2 tablets by mo [facility] once daily for 1 day, THEN 1 tablet once daily for 4 days. doxycycline hyclate 100 mg oral tablet (5 sources) Tetracycline-class Drug Start: 02-22-20 End: 02-29-20 take 1 tablet by mouth twice daily doxycycline (VIBRA-TABS) 100 mg tablet Take 1 tablet by mouth two times a day for 7 days. 14 tablet 02/22/2024 02/29/2024 Active Start: 04-15-2022 End: 11-05-2022 take 1 tablet by mouth twice daily doxycycline monohydrate 100 mg tablet Take 1 tablet by mouth twice daily for 5 days. 10 tablet 0 04/15/2022 04/20/2022 Active Comment on above: Take 1 tablet by george twice daily for 5 days. 30 actuat fluticasone furoate 0.1 mg/actuat / umeclidinium 0.0625 mg/actuat / vilanterol 0.025 mg/actuat dry powder inhaler (19 sources) Anticholinergic, Corticosteroid, beta2-Adrenergic Agonist Start: take 1 puff(s) by inhalation once daily fluticasone-umecli din-vilanter (TRELEGY ELLIPTA) 100-62.5-25 mcg Inhale 1 Puff as instructed once daily. 1 Each 5 03/09/2021 Active Comment on above: Inhale 1 Puff as ins tructed once daily. gabapentin 600 mg oral tablet (20 sources) Anti-epileptic Agent Start: 4 End: 5 take 1 tablet by mouth three times daily gabapentin (NEURONTIN) 600 mg tablet Take 1 tablet by mouth three times a day. Prescribed by neurology 10/15/2023 10/14/2024 Active Start: 06-12-2017 End: 10-15-2023 gabapentin (NEURONTIN) 800 m g tablet [address] from [facility] 06/12/2017 10/15/2023 Discontinued Start: 06-12-2017 End: 01-27-2024 gabapentin (NEURONTIN) 800 m g tablet 600 mg three times daily. from [facility] 0 06/12/2017 10/15/2023 Discontinued Comment on above: 600 mg three times d aily. from [facility] ibuprofen 200 mg oral tablet (8 sources) Nonsteroidal Anti-inflammatory Drug Start: 10-15-19 take 2 tablets by mouth every six hours as needed ibuprofen (MOTRIN) 200 mg tablet Take 2 tablets by mouth every 6 hours as needed for pain (Take with food.). 10/15/2023 Active levETIRAcetam 500 mg oral tablet (20 sources) Start: 07-02-19 End: 10-14-19 24 levETIRAcetam (KEPPRA) 500 mg tablet twice daily. 07/02/2019 Active Comment on above: twice daily. multivitamin tablet (18 sources) take 1 tablet by mouth once daily multivitamin tablet Indications: Cervicalgia , DDD (degenerative disc disease), cervical , Cervical spondylosis Take 1 tablet by mouth once daily. Active take 1 tablet by mouth once risa y multivitamin tablet Indications: Cervicalgia , DDD (degenerative disc disease), cervical , Cervical spondylosis Take 1 tablet by mouth once daily. 0 Active Comment on above: Take 1 tablet by [facility] once daily. omeprazole 40 mg delayed release oral capsule (20 sources) Proton Pump Inhibitor Start: 09-20-19 take 1 capsule by mouth once daily before breakfast omeprazole (PRILOSEC) 40 mg capsule Take 1 capsule by mouth daily before breakfast. 1/2 hr before meal. 30 capsule 5 09/19/2021 Active Comment on above: Take 1 capsule by [facility] daily before breakfast. 1/2 hr before meal. polymyxin b [id number] unt/ml / trimethoprim 1 mg/ml ophthalmic solution (1 source) Dihydrofolate Reductase Inhibitor Antibacterial, Polymyxin-class Antibacterial Start: 02-03-20 End: 02-10-20 take 1-2 drop(s) into the eye(s) every four hours trimethoprim-polym yxin (POLYTRIM) 10,000 unit- 1 mg/mL ophthalmic solution Use 1-2 Drops in both eyes every 4 hours for 7 days. While awake 10 mL 02/03/2024 02/10/2024 Active predniSONE 20 mg oral tablet (5 sources) Start: 02-22-20 End: 02-27-20 24 take 2 tablets by mouth once daily predniSONE (DELTASONE) 20 mg tablet Take 2 tablets by mouth once daily for 5 days. 10 tablet 02/22/2024 02/27/2024 Active Start: 04-15-2022 End: 04-20-2022 take 2 tablets by mouth once daily predniSONE (DELTASONE) 20 mg tablet Take 2 tablets by mouth once daily for 5 days. 10 tablet 0 04/15/2022 04/20/2022 Active Comment on above: Take 2 tablets by [facility] once daily for 5 days. Trelegy Ellipta 200-62.5-25 MCG/ACT aerosol powder (2 sources) Start: 10-23-2022 take 1 puff(s) by inhalation once daily Trelegy Ellipta 200-62.5-25 MCG/ACT aerosol powder INHALE 1 (ONE) PUFF DAILY 0 10/23/2022 Active divalproex sodium 250 mg delayed release oral tablet (20 sources) Mood Stabilizer, Anti-epileptic Agent Start: 10-15-2023 take 2 tablets by mouth three times daily divalproex DR (DEPAKOTE) 250 mg EC tablet Indications: Seizure disorder (HCC) Take 2 tablets by mouth three times a day. Prescribed by neurology 10/15/2023 Active Start: 08-20-2017 End: 10-15-2023 take 1 tablet by mouth twice daily divalproex DR (DEPAKOTE) 500 mg EC tablet Indications: Seizure disorder (HCC) Take 1 tablet by mouth twice daily. 60 tablet 1 08/20/2017 10/15/2023 Discontinued take 3 tablets by mo [facility] in the morning divalproex (Depakote) 250 MG EC tablet Take 750 mg by mouth in the morning and 750 mg before bedtime. Do not crush, chew, or split. . 0 Active Comment on above: Take 1 tablet by [facility] twice daily. Completed/Discontinued Medications Medication Drug Class(es) Dates Sig (Normalized) Sig (Original) acetaminophen 500 mg oral tablet (1 source) Start: 05-17-2022 End: 05-17-2022 acetaminophen 1,000 mg tab(s) (TYLENOL) Start: 05-17-2022 End: 05-17-2022 acetaminophen 1,000 mg tab(s ) (TYLENOL) acetaminophen 250 mg / aspirin 250 mg / caffeine 65 mg oral tablet (11 sources) Platelet Aggregation Inhibitor, Nonsteroidal Anti-inflammatory Drug, Central Nervous System Stimulant, Methylxanthine End: 10-15-2023 take 6 tablets by mouth every six hours as needed Cxbrvrp-Zbyaitzerdvka-Kcllmszq 250-250-65 mg per tablet Take 6 tablets by mouth every 6 hours as needed. 10/15/2023 Discontinued (Discontinued by Patient) Comment on above: Take 6 tablets by mouth every 6 hours as needed. aspirin 81 mg delayed release oral tablet (11 sources) Platelet Aggregation Inhibitor, Nonsteroidal Anti-inflammatory Drug Start: 02-06-2018 End: 10-15-2023 take 1 tablet by mouth once daily aspirin, enteric coated (ASPIRIN, ENTERIC COATED) 81 mg EC tablet Indications: Cervical spondylosis without myelopathy Take 81 mg by mouth once daily. 02/06/2018 10/15/2023 Discontinued (Discontinued by Patient) Comment on above: Take 1 tablet by mouth once daily. Take 81 mg by mouth once daily. hydrOXYzine hydrochloride 25 mg oral tablet (3 sources) Antihistamine Start: 04-07-2023 End: 10-15-2023 take 1 tablet by mouth every six hours as needed for anxiety hydrOXYzine HCl (ATARAX) 25 mg tablet Indications: Anxiety associated with depression , Psychosocial stressors Take 1 tablet by mouth every 6 hours as needed for anxiety (anxiety/insomnia). 30 tablet 0 04/07/2023 10/15/2023 Discontinued (Discontinued by Patient) Comment on above: Take 1 tablet by mouth every 6 hours as needed for anxiety (anxiety/insomnia). multivitamin (DAILY MULTI-VITAMIN) ORAL tablet (1 source) take 1 tablet by mouth once daily multivitamin (DAILY MULTI-VITAMIN) ORAL tablet Indications: Cervicalgia , DDD (degenerative disc disease), cervical , Cervical spondylosis Take 1 tablet by mouth once daily. 0 Active Comment on above: Take 1 tablet by mouth once daily. mupirocin 0.02 mg/mg topical ointment (9 sources) RNA Synthetase Inhibitor Antibacterial Start: 03-10-2019 End: 04-07-2023 mupirocin (BACTROBAN) 2 % ointment Indications: Skin lesion Apply 1 application to affected area three times daily. 1 Tube 1 03/10/2019 04/07/2023 Discontinued Comment on above: Apply 1 application to affected area thr ee times daily. OLANZapine 15 mg oral tablet (13 sources) Atypical Antipsychotic Start: 02-09-2021 End: 10-15-2023 take 1 tablet by mouth once daily at bedtime OLANZapine (ZYPREXA) 15 mg tablet Take 15 mg by mouth daily at bedtime. 02/09/2021 10/15/2023 Discontinued (Discontinued by another Health Care Provider) Comment on above: Take 15 mg by mouth daily at bedtime. PARoxetine hydrochloride 20 mg oral tablet (3 sources) Serotonin Reuptake Inhibitor Start: 04-07-2023 End: 10-15-2023 take 1 tablet by mouth once daily PARoxetine (PAXIL) 20 mg tablet Indications: Anxiety associated with depression , Psychosocial stressors Take 1 tablet by mouth once daily. 30 tablet 0 04/07/2023 10/15/2023 Discontinued (Discontinued by another Health Care Provider) Comment on above: Take 1 tablet by mouth once daily. sertraline 50 mg oral tablet (11 sources) Serotonin Reuptake Inhibitor Start: 03-01-2021 End: 04-07-2023 take 1 tablet by mouth once daily sertraline (ZOLOFT) 50 mg tablet Take 1 tablet by mouth once daily. 30 tablet 03/01/2021 04/07/2023 Discontinued Comment on above: Take 1 tablet by mouth once daily. sildenafil 50 mg oral tablet (11 sources) Phosphodiesterase 5 Inhibitor Start: 03-10-2019 End: 10-15-2023 sildenafil (VIAGRA) 50 mg tablet Indications: Erectile dysfunction, unspecified erectile dysfunction type Take 1 tablet by mouth as needed. 15 tablet 2 03/10/2019 10/15/2023 Discontinued (Discontinued by Patient) Comment on above: Take 1 tablet by mouth as needed. Problems Active Problems Problem Classification Problem Date Documented Da te Episodic/Chronic Abdominal pain (1 source) Lower abdominal pain; Translations: [Lower abdominal pain, unspecified] 03-05-2023 Episodic Administrative/social admission (1 source) Stress; Translations: [Other specified problems related to psychosocial circumstances] 04-07-2023 Episodic Alcohol-related disorders (19 sources) Alcohol dependence; Translations: [Alcohol dependence, uncomplicated] Onset: 02-16-2008 03-02-2008 Chronic Anxiety disorders (20 sources) Anxiety state; Translations: [Generalized anxiety disorder] Onset: 07-29-2006 04-22-2017 Chronic Chronic obstructive pulmonary disease and bronchiectasis (12 sources) Acute exacerbation of chronic obstructive airways disease; Translations: [Chronic obstructive pulmonary disease with (acute) exacerbation] Onset: 10-15-2023 Chronic Epilepsy; convulsions (20 sources) Absence seizure; Translations: [Absence epileptic syndrome, not intractable, without status epilepticus] Onset: 03-23-2013 03-23-2013 Chronic Epilepsy; convulsions (2 sources) Seizure; Translations: [Unspecified convulsions] 07-31-2023 Episodic Fever of unknown origin (1 source) Fever; Translations: [Fever, unspecified] 05-17-2022 Episodic Headache; including migraine (2 sources) Migraine without aura, not refractory ; Translations: [Migraine without aura, not intractable, without status migrainosus] 07-31-2023 Chronic Inflammation; infection of eye (except that caused by tuberculosis or sexually transmitteddisease) (1 source) Bacterial conjunctivitis; Translations: [Unspecified conjunctivitis] 02-03-2024 Episodic Mood disorders (20 sources) Depressive disorder; Translations: [Other specified depressive episodes] Onset: 07-29-2006 03-26-2010 Chronic Nutritional deficiencies (19 sources) Vitamin D deficiency; Translations: [Vitamin D deficiency, unspecified] Onset: 04-30-2007 03-02-2008 Chronic Other aftercare (1 source) Patient encounter status; Translations: [Other terminal makeup operator (current) drug therapy] 02-24-2024 Episodic Other connective tissue disease (1 source) Muscle weakness of upper limb; Translations: [Other symptoms and signs involving the musculoskeletal system] 03-28-2024 Episodic Other gastrointestinal disorders (1 source) Diarrhea; Translations: [Diarrhea, unspecified] 03-05-2023 Episodic Other lower respiratory disease (2 sources) Dyspnea; Translations: [Shortness of breath] 10-15-2023 Episodic Other nutritional; endocrine; and metabolic disorders (1 source) Unintentional weight loss; Translations: [Abnormal weight loss] 10-15-2023 Episodic Other nutritional; endocrine; and metabolic disorders (1 source) Weight loss; Translations: [Abnormal weight loss] 02-22-2024 Episodic Other upper respiratory infections (3 sources) Chronic sinusitis; Translations: [Chronic sinusitis, unspecified] Chronic Spondylosis; intervertebral disc disorders; other back problems (20 sources) Prolapsed cervical intervertebral disc without myelopathy; Translations: [Other cervical disc displacement, unspecified cervical region] Onset: 01-28-2007 03-02-2008 Chronic Substance-related disorders (19 sources) Tobacco user; Translations: [Nicotine dependence, unspecified, uncomplicated] Onset: 10-13-2015 10-13-2015 Chronic Past or Other Problems Problem Classification Problem Date Documented Da te Episodic/Chronic Abdominal hernia (20 sources) Inguinal hernia; Translations: [Unilateral inguinal hernia, without obstruction or gangrene, not specified as recurrent] Onset: 12-27-2007 Resolved: 08-07-2010 08-07-2010 Episodic Anxiety disorders (19 sources) Outbursts of anger; Translations: [Irritability and anger] Onset: 12-08-2012 06-11-2021 Episodic Gastritis and duodenitis (20 sources) Acute gastritis; Translations: [Acute gastritis without bleeding] Onset: 02-07-2009 Resolved: 08-07-2010 02-07-2009 Episodic Gastrointestinal hemorrhage (14 sources) Hematochezia; Translations: [Melena] Onset: 02-07-2009 Resolved: 08-07-2010 08-07-2010 Episodic Headache; including migraine (20 sources) Headache; Translations: [Headache] Onset: 07-29-2006 11-10-2015 Episodic Intracranial injury (20 sources) Traumatic brain injury; Translations: [Unspecified intracranial injury with loss of consciousness of unspecified duration, initial encounter] Onset: 03-21-2011 Resolved: 02-14-2015 06-11-2021 Episodic Malaise and fatigue (2 sources) Malaise; Translations: [Other malaise] Onset: 10-15-2023 10-15-2023 Episodic Other aftercare (11 sources) Surgical follow-up; Translations: [Encounter for follow-up examination after completed treatment for conditions other than malignant neoplasm] Onset: 01-20-2008 Resolved: 08-07-2010 08-07-2010 Episodic Other connective tissue disease (19 sources) Medial epicondylitis; Translations: [Medial epicondylitis, unspecified elbow] Onset: 04-01-2013 04-01-2013 Episodic Other connective tissue disease (11 sources) Lateral epicondylitis; Translations: [Lateral epicondylitis, unspecified elbow] Onset: 07-29-2006 Resolved: 08-07-2010 08-07-2010 Episodic Other connective tissue disease (11 sources) Soft tissue lesion of shoulder region; Translations: [Bursopathy, unspecified] Onset: 01-01-2007 Resolved: 05-20-2007 03-26-2010 Episodic Other connective tissue disease (11 sources) Disorder of rotator cuff; Translations: [Other specified disorders of rotator cuff syndrome of shoulder and allied disorders] Onset: 05-20-2007 Resolved: 08-07-2010 08-07-2010 Episodic Other connective tissue disease (11 sources) Pain in limb; Translations: [Pain in unspecified limb] Onset: 08-05-2007 Resolved: 08-07-2010 08-07-2010 Episodic Other lower respiratory disease (19 sources) Multiple nodules of lung; Translations: [Other nonspecific abnormal finding of lung field] Onset: 02-06-2018 02-06-2018 Episodic Other lower respiratory disease (1 source) Shortness of breath; Translations: [Shortness of breath] Onset: 10-15-2023 Episodic Other nutritional; endocrine; and metabolic disorders (1 source) Abnormal weight loss; Translations: [Unintentional weight loss] Onset: 10-15-2023 Episodic Pneumonia (except that caused by tuberculosis or sexually transmitted disease) (20 sources) Abscess of lung with pneumonia ; Translations: [Abscess of lung with pneumonia] Onset: 10-14-2016 10-14-2016 Episodic Residual codes; unclassified (19 sources) Insomnia; Translations: [Insomnia, unspecified] Onset: 06-20-2011 06-20-2011 Episodic Screening and history of mental health and substance abuse codes (19 sources) Tobacco use and exposure - finding; Translations: [Personal history of nicotine dependence] Onset: 07-29-2006 03-26-2010 Episodic Spondylosis; intervertebral disc disorders; other back problems (20 sources) Neck pain; Translations: [Cervicalgia] Onset: 07-29-2006 Resolved: 08-07-2010 03-26-2010 Episodic Results Test Name Value Interpretation Reference Range Facility [facility] 03-28-2024 CNOV Office Visit (UCWSTR ) ELIUD BLOUNT ([id number]) 1960 M Date Time Provider Department 03/28/24 2:45 PM VINITA LILLY [facility] During your visit today, we recorded the following information about you: Vinita Lilly APRN.CNP 03/28/2024 2:59 PM Signed [facility] triaged at [facility], here today with sudden onset contracture and weakness of right arm. Unable to use right arm. I will refer to ER. Visitor to drive pov to ER. Patient ambulating well unassisted. Talking in full sentences. Allergies As of Date: 03/28/2024 Noted Allergy Reaction Day-nite Severe Cold-flu (DOXYLAM*01/07/2017 14 - Other: See Comments DEXTROMETHORPHAN 12/05/2016 14 - Other: See Comments DOXYLAMINE 12/05/2016 14 - Other: See Comments PSEUDOEPHEDRINE 12/05/2016 14 - Other: See Comments SERTRALINE 12/05/2016 6 - Diarrhea ZOLOFT (SERTRALINE HCL) 04/05/2011 6 - Diarrhea 8 - GI Upset BACLOFEN 04/22/2017 14 - Other: See Comments Comments: Patient overdosed on it and was in the icu NYQUIL ([id number] GRAY*07/08/2007 5 - Intolerance Date Reviewed: 02/22/2024 Reviewed by: Madison Wagner LPN - Fully Assessed Primary Visit Diagnosis:Arm weakness [R29.898] Prescriptions as of 03/28/2024 - amitriptyline (ELAVIL) 100 mg tablet Take 1 tablet by mouth daily at bedtime. Prescribed by neurology - divalproex DR (DEPAKOTE) 250 mg EC tablet Take 2 tablets by mouth three times a day. Prescribed by neurology - gabapentin (NEURONTIN) 600 mg tablet Take 1 tablet by mouth three times a day. Prescribed by neurology - ibuprofen (MOTRIN) 200 mg tablet Take 2 tablets by mouth every 6 hours as needed for pain (Take with food.). - albuterol (PROVENTIL) 5 mg/mL nebu Inhale 0.5 mL as instructed every 4 hours while awake. 1 DOSE NOW - BACK OFFICE. PLACE 0.5 ML PER DROPPER AND 2.5 ML OF NORMAL SALINE INTO RESERVOIR. - albuterol (PROVENTIL) 2.5 mg /3 mL (0.083 %) nebulizer solution Use 3 mL via nebulizer every 4 hours as needed for wheezing/shortness of breath. Use over 5-15minutes. - omeprazole (PRILOSEC) 40 mg capsule Take 1 capsule by mouth daily before breakfast. 1/2 hr before meal. - fluticasone-umeclidin- vilanter (TRELEGY ELLIPTA) 100-62.5-25 mcg Inhale 1 Puff as instructed once daily. - levETIRAcetam (KEPPRA) 500 mg tablet twice daily. - albuterol HFA (VENTOLIN HFA) 90 mcg/actuation inhaler Inhale 2 Puffs as instructed every 4 hours as needed for Wheezing/Shortness of Breath. - multivitamin tablet Take 1 tablet by mouth once daily. Problem List As Of Date 03/28/2024 Noted Resolved Headache [R51] 07/29/2006 CERVICALGIA [M54.2] 07/29/2006 Lateral epicondylitis of elbow [M77.10] 07/29/2006 08/07/2010 DEPRESSIVE DISORDER NEC [F32.89] 07/29/2006 Anxiety state [F41.1] 07/29/2006 PERS HX TOBACCO USE [Z87.891] 07/29/2006 ROTATOR CUFF SYND NOS [M71.9, M67.919] 01/01/2007 05/20/2007 CERVICAL DISC DISPLACMNT [M50.20] 01/28/2007 VITAMIN D DEFICIENCY NOS [E55.9] 04/30/2007 Rotator cuff dis NEC [[id number]] 05/20/2007 08/07/2010 Brachial neuritis or radiculitis NOS [M54.12] 05/20/2007 08/07/2010 Pain in soft tissues of limb [M79.609] 08/05/2007 08/07/2010 Unilat ing hernia [K40.90] 12/27/2007 08/07/2010 Recur unilat ing chantel [K40.91] 01/11/2008 08/07/2010 Follow-up examination, following unspecified crane*01/20/2008 08/07/2010 ALCOH DEP NEC/NOS-UNSPEC [F10.20] 02/16/2008 Umbilical hernia without mention of obstruction*02/03/2009 08/07/2010 Gastritis/duodenitis [K29.70, K29.90] 02/07/2009 08/07/2010 Blood in stool [K92.1] 02/07/2009 08/07/2010 Acute Gastritis without Mention of Hemorrhage [*02/07/2009 TBI (traumatic brain injury) [S06.9XAA] 03/21/2011 02/14/2015 Degeneration of cervical intervertebral disc [M*05/30/2011 Cervical spondylosis without myelopathy [M47.81*05/30/2011 Insomnia [G47.00] 06/20/2011 Outbursts of anger [R45.4] 12/08/2012 Absence attack [G40.A09] 03/23/2013 Golfer's elbow [M77.00] 04/01/2013 TBI (traumatic brain injury) (HCC) [S06.9XAA] 02/14/2015 Chronic daily headache [R51.9] 10/13/2015 Moderate single current episode of major depres*10/13/2015 Tobacco use disorder [F17.200] 10/13/2015 Abscess of middle lobe of right lung with pneum*10/14/2016 Pulmonary nodules [R91.8] 02/06/2018 Chronic obstructive pulmonary disease (HCC) [J4*10/15/2023 Encounter Status:Closed by VINITA LILLY on 03/28/24 Normal [facility] CNCOon 02-26-2024 CNCO Letter Text Normal [facility] CNCOon 02-23-2024 CNCO Letter Text Normal [facility] CNPNon 02-23-2024 CNPN Telephone ([facility]) ELIUD BLOUNT ([id number]) 1960 M Date Time Provider Department 02/23/24 VINITA LILLY [facility] During your visit today, we recorded the following information about you: Vinita Lilly APRN.[facility] 02/23/2024 7:21 AM Signed Please notify positive for covid. Is past treatment window for antiviral treatment and quarantine. Continue with plan of care as discussed during visit. Radha Toledo MA 02/23/2024 8:24 AM Signed both numbers are disconnected states that in the previous note. ANGELICA Bravo Brittany L, MA 02/23/2024 9:53 AM Signed Will send unable to reach letter to contact office for results AND update ALL contact information. ANGELICA Lara Stephanie, RN 02/25/2024 9:28 AM Signed Patient notified of results and provider's instructions. Patient verbalizes understanding. Mary Jain RN Allergies As of Date: 02/23/2024 Noted Allergy Reaction Day-nite Severe Cold-flu (DOXYLAM*01/07/2017 14 - Other: See Comments DEXTROMETHORPHAN 12/05/2016 14 - Other: See Comments DOXYLAMINE 12/05/2016 14 - Other: See Comments PSEUDOEPHEDRINE 12/05/2016 14 - Other: See Comments SERTRALINE 12/05/2016 6 - Diarrhea ZOLOFT (SERTRALINE HCL) 04/05/2011 6 - Diarrhea 8 - GI Upset BACLOFEN 04/22/2017 14 - Other: See Comments Comments: Patient overdosed on it and was in the icu NYQUIL (DOXOAAVAF-WIF-ZJ-ACET GRAY*07/08/2007 5 - Intolerance Date Reviewed: 02/22/2024 Reviewed by: Madison Wagner LPN - Fully Assessed Reason for Visit: Results [95] Prescriptions as of 02/25/2024 - doxycycline (VIBRA-TABS) 100 mg tablet Take 1 tablet by mouth two times a day for 7 days. - predniSONE (DELTASONE) 20 mg tablet Take 2 tablets by mouth once daily for 5 days. - amitriptyline (ELAVIL) 100 mg tablet Take 1 tablet by mouth daily at bedtime. Prescribed by neurology - divalproex DR (DEPAKOTE) 250 mg EC tablet Take 2 tablets by mouth three times a day. Prescribed by neurology - gabapentin (NEURONTIN) 600 mg tablet Take 1 tablet by mouth three times a day. Prescribed by neurology - ibuprofen (MOTRIN) 200 mg tablet Take 2 tablets by mouth every 6 hours as needed for pain (Take with food.). - albuterol (PROVENTIL) 5 mg/mL nebu Inhale 0.5 mL as instructed every 4 hours while awake. 1 DOSE NOW - BACK OFFICE. PLACE 0.5 ML PER DROPPER AND 2.5 ML OF NORMAL SALINE INTO RESERVOIR. - albuterol (PROVENTIL) 2.5 mg /3 mL (0.083 %) nebulizer solution Use 3 mL via nebulizer every 4 hours as needed for wheezing/shortness of breath. Use over 5-15minutes. - omeprazole (PRILOSEC) 40 mg capsule Take 1 capsule by mouth daily before breakfast. 1/2 hr before meal. - fluticasone-umeclidin- vilanter (TRELEGY ELLIPTA) 100-62.5-25 mcg Inhale 1 Puff as instructed once daily. - levETIRAcetam (KEPPRA) 500 mg tablet twice daily. - albuterol HFA (VENTOLIN HFA) 90 mcg/actuation inhaler Inhale 2 Puffs as instructed every 4 hours as needed for Wheezing/Shortness of Breath. - multivitamin tablet Take 1 tablet by mouth once daily. Problem List As Of Date 02/23/2024 Noted Resolved Headache [R51] 07/29/2006 CERVICALGIA [M54.2] 07/29/2006 Lateral epicondylitis of elbow [M77.10] 07/29/2006 08/07/2010 DEPRESSIVE DISORDER NEC [F32.89] 07/29/2006 Anxiety state [F41.1] 07/29/2006 PERS HX TOBACCO USE [Z87.891] 07/29/2006 ROTATOR CUFF SYND NOS [M71.9, M67.919] 01/01/2007 05/20/2007 CERVICAL DISC DISPLACMNT [M50.20] 01/28/2007 VITAMIN D DEFICIENCY NOS [E55.9] 04/30/2007 Rotator cuff dis NEC [EXA0851] 05/20/2007 08/07/2010 Brachial neuritis or radiculitis NOS [M54.12] 05/20/2007 08/07/2010 Pain in soft tissues of limb [M79.609] 08/05/2007 08/07/2010 Unilat ing hernia [K40.90] 12/27/2007 08/07/2010 Recur unilat ing chantel [K40.91] 01/11/2008 08/07/2010 Follow-up examination, following unspecified crane*01/20/2008 08/07/2010 ALCOH DEP NEC/NOS-UNSPEC [F10.20] 02/16/2008 Umbilical hernia without mention of obstruction*02/03/2009 08/07/2010 Gastritis/duodenitis [K29.70, K29.90] 02/07/2009 08/07/2010 Blood in stool [K92.1] 02/07/2009 08/07/2010 Acute Gastritis without Mention of Hemorrhage [*02/07/2009 TBI (traumatic brain injury) [S06.9XAA] 03/21/2011 02/14/2015 Degeneration of cervical intervertebral disc [M*05/30/2011 Cervical spondylosis without myelopathy [M47.81*05/30/2011 Insomnia [G47.00] 06/20/2011 Outbursts of anger [R45.4] 12/08/2012 Absence attack [G40.A09] 03/23/2013 Golfer's elbow [M77.00] 04/01/2013 TBI (traumatic brain injury) (HCC) [S06.9XAA] 02/14/2015 Chronic daily headache [R51.9] 10/13/2015 Moderate single current episode of major depres*10/13/2015 Tobacco use disorder [F17.200] 10/13/2015 Abscess of middle lobe of right lung with pneum*10/14/2016 Pulmonary nodules [R91.8] 02/06/2018 Chronic obstructive pulmonary disease (HCC) [J4*10/15/2023 (more content not included)... Normal [facility] CNOVon 02-22-2024 CNOV Office Visit ([facility] ) ELIUD BLOUNT ([id number]) 1960 M Date Time Provider Department 02/22/24 2:30 PM XOCHILT CABRALES [facility] During your visit today, we recorded the following information about you: Temperature Pulse Respiration Blood pressure 97 degrees 93/minute 20/minute 111/74 Weight 53 kg Xochilt Cabrales APRN.LEGAL INSTRUMENTS EXAMINER 02/22/2024 2:51 PM Signed Subjective The history is provided by the patient. No foreign language interpreter was used. HPI Eliud Blount is a 63 year old male who presents today for CC of sinus congestion, pressure, yellow drainage, chest congestion. This started over the past 10 days. Many family members have had covid Patient was seen in October for blood in stool and referred to Gen surg - he never followed up, his weight is down 12 lbs since then. Social History Tobacco Use Smoking status: Every Day Current packs/day: 0.50 Average packs/day: 0.5 packs/day for 28.0 years (14.0 ttl pk-yrs) Types: Cigarettes Smokeless tobacco: Never Tobacco comments: trying to quit smoke 10cigs daily Substance Use Topics Alcohol use: No Comment: Rarely Drug use: No PAST MEDICAL HISTORY No date: Acute hypoxemic respiratory failure (HCC) Comment: Oxygen use with goal of 89-92% saturation 07/29/2006: ANXIETY STATE NOS 05/20/2007: BRACHIAL NEURITIS NOS 01/28/2007: CERVICAL DISC DISPLACMNT 07/29/2006: Cervicalgia No date: Chronic obstructive pulmonary disease (COPD) ([facility]) 07/29/2006: DEPRESSIVE DISORDER NEC No date: Diabetes ([facility]) 07/29/2006: Headache(784.0) No date: Hypertension No date: Intracranial injury of other and unspecified nature, without mention of open intracranial wound, unspecified state of consciousness Comment: fell and hit his head in 200307/29/2006: LATERAL EPICONDYLITIS Comment: bilateral 02/16/2008: Other and unspecified alcohol dependence, unspecified drinking behavior 07/29/2006: PERS HX TOBACCO USE 09/2016: Pneumonia Comment: hospitalized and on a ventilator 01/11/2008: RECUR UNILAT INGUIN CHANTEL 02/07/2009: Unspecified gastritis and gastroduodenitis without mention of hemorrhage I have confirmed and edited as necessary, the [facility] Review of Systems Constitutional: Negative for chills and fever. HENT: Positive for congestion. Negative for ear pain, sinus pain and sore throat. Respiratory: Positive for cough. Negative for sputum production, shortness of breath and wheezing. Cardiovascular: Negative for chest pain. Musculoskeletal: Negative for myalgias. Neurological: Negative for headaches. Objective BP 111/74 Pulse 93 Temp 36.1 ?C (97 ?F) Resp 20 Wt 53 kg (116 lb 13.5 oz) SpO2 96% BMI 18.30 kg/m? Physical Exam Vitals and nursing note reviewed. Constitutional: Appearance: He is not toxic-appearing. HENT: Head: Normocephalic and atraumatic. Right Ear: Tympanic membrane, ear canal and external ear normal. Left Ear: Tympanic membrane, ear canal and external ear normal. Nose: Mucosal edema, congestion and rhinorrhea present. Right Sinus: Maxillary sinus tenderness and frontal sinus tenderness present. Left Sinus: Maxillary sinus tenderness and frontal sinus tenderness present. Mouth/Throat: Pharynx: Uvula midline. No oropharyngeal exudate or posterior oropharyngeal erythema. Tonsils: No tonsillar abscesses. Cardiovascular: Rate and Rhythm: Normal rate and regular rhythm. Heart sounds: Normal heart sounds. Pulmonary: Effort: Pulmonary effort is normal. Breath sounds: Normal breath sounds. No decreased breath sounds, wheezing, rhonchi or rales. Lymphadenopathy: Head: Right side of head: No submental, submandibular, tonsillar or preauricular adenopathy. Left side of head: No submental, submandibular, tonsillar or preauricular adenopathy. Cervical: No cervical adenopathy. Right cervical: No superficial cervical adenopathy. Left cervical: No superficial cervical adenopathy. Neurological: Mental Status: He is alert. ASSESSMENT/PLAN: 1. Bacterial sinusitis - ICD9: 473.9, 041.9, ICD10: J32.9, B96.89 (primary diagnosis) - Will begin treatment with Doxycycline - Supportive care with plenty of fluids, rest, and analgesia prn. - Follow up in one week if symptoms persist or worsen. - COVID AND INFLUENZA A/B AND RSV PCR, ROUTINE 2. Weight loss - ICD9: 783.21, ICD10: R63.4 Will set up follow up with PCP for evaluation and follow up 3. COPD with exacerbation (HCC) - ICD9: 491.21, ICD10: J44.1 Prednisone 40 mg (2-20mg tablets) po QD for 5 days Continue inhalers Follow up with PCP for refcheck. Diagnosis and treatment plan were discussed and questions were answered to the patient's satisfaction. Pt acknowledged understanding of concepts and follow up plan. Specific signs and symptoms that would indicate the need for higher level of care were discussed in detail warranting prompt ER evaluation. Xochilt Cabrales APRN.LEGAL INSTRUMENTS EXAMINER Al (more content not included)... Normal [facility] COVID AND INFLUENZA A/B AND RSV PCR, ROUTINEon 02-22-2024 SARS-CoV-2 (COVID-19) RNA SOLITARIO+probe Ql (Unsp spec) SARS-COV-2 (AGENT OF COVID-19) RNA: Detected INFLUENZA A RNA: Not detected INFLUENZA B RNA: Not detected RESPIRATORY SYNCYTIAL VIRUS (RSV) RNA: Not detected Abnormal [facility] Comment on above: Performed By: #### C VFLRS ####[facility] LABCLIA [id number] [facility] [id number] [id number] [place] CNOVon 02-03-2024 CNOV Office Visit ([facility] ) ELIUD BLOUNT ([id number]) 1960 M Date Time Provider Department 02/03/24 2:15 PM DOTTY HIDALGO [facility] During your visit today, we recorded the following information about you: Temperature Pulse Respiration Blood pressure 97.3 degrees 95/minute 22/minute 131/87 Weight 55 kg Dotty Hidalgo, STORE DETECTIVE.LEGAL INSTRUMENTS EXAMINER 02/03/2024 2:39 PM Signed Patient presents with: Eye Problem: Bilat eye redness, states he woke up to matted shut eyes x2 days swelling L is worse than Right Fatigue: Body aches Denies pain in his eyes Eyes were matted shut this AM He woke up sore this morning and was sore and more fatigue. Sates he did not sleep well last night Eye Problem Associated symptoms include fatigue and myalgias. Pertinent negatives include no chills or fever. Fatigue Associated symptoms include fatigue and myalgias. Pertinent negatives include no chills or fever. Review of Systems Constitutional: Positive for fatigue and malaise/fatigue. Negative for chills and fever. Eyes: Positive for discharge and redness. Negative for photophobia, pain, itching and visual disturbance. Musculoskeletal: Positive for myalgias. Physical Exam Vitals reviewed. Constitutional: Appearance: Normal appearance. HENT: Head: Normocephalic. Eyes: General: Right eye: Discharge present. Left eye: Discharge present. Extraocular Movements: Extraocular movements intact. Right eye: Normal extraocular motion. Left eye: Normal extraocular motion. Conjunctiva/sclera: Right eye: Right conjunctiva is injected. Left eye: Left conjunctiva is injected. Pupils: Pupils are equal, round, and reactive to light. Cardiovascular: Rate and Rhythm: Normal rate and regular rhythm. Heart sounds: Normal heart sounds. Pulmonary: Effort: Pulmonary effort is normal. No respiratory distress. Breath sounds: Normal breath sounds. No wheezing, rhonchi or rales. Neurological: Mental Status: He is alert. ASSESSMENT/PLAN: 1. Bacterial conjunctivitis - ICD9: 372.39, 041.9, ICD10: H10.9 Bacterial -Polytrim 1-2 drops to both eyes every 4 hrs while awake for 7 days - course and contagiousness issues discussed, including hand washing. - discussed to follow up if symptoms are not improving or sooner if they worsen -He verbalized understanding and agreement with this plan. JOSE Lowe Samantha L, APRN.CNP 02/03/2024 2:28 PM Signed - Polytrim 1-2 drops in both eyes every 4 hours while awake for 7 days - Wash hands before and after putting in eye drops CONJUNCTIVITIS PATIENT INSTRUCTIONS: What is conjunctivitis? Conjunctivitis is one of the most common eye infections in children and adults. Often called pink eye, it is an inflammation (swelling) of the conjunctiva, the tissue that lines the inside surface of the eyelid and outer coating of the eye. This tissue helps keep the eyelid and eyeball moist. Conjunctivitis can be caused by a virus, bacteria, irritating substances (shampoos, dirt, smoke, and especially pool chlorine), allergens (substances that cause allergies) or sexually transmitted infections. Harbine eye caused by bacteria, viruses, and sexually transmitted infections can spread easily from person to person, but is not a serious health risk if diagnosed promptly. What are the symptoms of conjunctivitis? The symptoms of conjunctivitis include the following: redness in the white of the eye or inner eyelid greater amount of tears thick yellow discharge that crusts over the eyelashes, especially after sleep (in conjunctivitis caused by bacteria) other discharge from your eye (green or white) itchy eyes (especially in conjunctivitis caused by allergies) burning eyes (especially in conjunctivitis caused by chemicals and irritants) blurred vision increased sensitivity to light See your instrument lens inspector (a doctor trained to treat eye conditions) or family doctor if you have any of these persistent symptoms. Ear infections also commonly occur in children who have bacterial conjunctivitis. The instrument lens inspector will examine your eyes and possibly take a sample of fluid and cells from the eyelid with a cotton swab. Bacteria or viruses that may have caused conjunctivitis can then be seen through a microscope or grown in culture for identification. How is conjunctivitis treated? Bacteria Conjunctivitis caused by bacteria is treated with antibiotics, a type of medicine prescribed by your doctor. The antibiotic can be given as eye drops, ointments, or pills. Eye drops or ointments may need to be applied to the eye three to four times a day for five to seven days. It may be difficult to apply ointments in a child's eye. If the ointment gets as far as the eyelashes, it will most likely melt and enter the eye. Pills may need to be taken for several days. The infection sh (more content not included)... Normal [facility] CNPNon 10-20-2023 ASHOKN Telephone ([facility]) ELIUD BLOUNT ([id number]) 1960 M Date Time Provider Department 10/20/23 ALYCIA ARNOLD During your visit today, we recorded the following information about you: Rodriguez Weiss MA 10/20/2023 12:02 PM Signed ----- Message from Alycia Arnold APRN.LEGAL INSTRUMENTS EXAMINER sent at 10/20/2023 10:38 AM EDT ----- Please let the patient know chest x-ray findings consistent with COPD, otherwise normal. Follow-up with ehs manager regarding SOB. Lab results were all within acceptable limits. Keep appointment with general surgery as scheduled Alycia Arnold APRN.Rodriguez Larry MA 10/20/2023 12:15 PM Signed Left message to call office. 10/20/2023 12:15 PM Rodriguez Weiss MA 10/23/2023 12:22 PM Signed Home phone listed - individual answering stated that was the wrong number. Removed from chart. TC to other line states it is no longer in service. Mailed pt letter asking for him to contact the office. Allergies As of Date: 10/20/2023 Noted Allergy Reaction Day-nite Severe Cold-flu (DOXYLAM*01/07/2017 14 - Other: See Comments DEXTROMETHORPHAN 12/05/2016 14 - Other: See Comments DOXYLAMINE 12/05/2016 14 - Other: See Comments PSEUDOEPHEDRINE 12/05/2016 14 - Other: See Comments SERTRALINE 12/05/2016 6 - Diarrhea ZOLOFT (SERTRALINE HCL) 04/05/2011 6 - Diarrhea 8 - GI Upset BACLOFEN 04/22/2017 14 - Other: See Comments Comments: Patient overdosed on it and was in the icu NYQUIL (ICTLKOJBM-AWH-CW-ACET GRAY*07/08/2007 5 - Intolerance Date Reviewed: 10/15/2023 Reviewed by: Alycia Arnold, NAZANIN.LEGAL INSTRUMENTS EXAMINER - Fully Assessed Reason for Visit: Results [95] Prescriptions as of 10/23/2023 - amitriptyline (ELAVIL) 100 mg tablet Take 1 tablet by mouth daily at bedtime. Prescribed by neurology - divalproex DR (DEPAKOTE) 250 mg EC tablet Take 2 tablets by mouth three times a day. Prescribed by neurology - gabapentin (NEURONTIN) 600 mg tablet Take 1 tablet by mouth three times a day. Prescribed by neurology - ibuprofen (MOTRIN) 200 mg tablet Take 2 tablets by mouth every 6 hours as needed for pain (Take with food.). - albuterol (PROVENTIL) 5 mg/mL nebu Inhale 0.5 mL as instructed every 4 hours while awake. 1 DOSE NOW - BACK OFFICE. PLACE 0.5 ML PER DROPPER AND 2.5 ML OF NORMAL SALINE INTO RESERVOIR. - albuterol (PROVENTIL) 2.5 mg /3 mL (0.083 %) nebulizer solution Use 3 mL via nebulizer every 4 hours as needed for wheezing/shortness of breath. Use over 5-15minutes. - omeprazole (PRILOSEC) 40 mg capsule Take 1 capsule by mouth daily before breakfast. 1/2 hr before meal. - fluticasone-umeclidin- vilanter (TRELEGY ELLIPTA) 100-62.5-25 mcg Inhale 1 Puff as instructed once daily. - levETIRAcetam (KEPPRA) 500 mg tablet twice daily. - albuterol HFA (VENTOLIN HFA) 90 mcg/actuation inhaler Inhale 2 Puffs as instructed every 4 hours as needed for Wheezing/Shortness of Breath. - multivitamin tablet Take 1 tablet by mouth once daily. Problem List As Of Date 10/20/2023 Noted Resolved Headache [R51] 07/29/2006 CERVICALGIA [M54.2] 07/29/2006 Lateral epicondylitis of elbow [M77.10] 07/29/2006 08/07/2010 DEPRESSIVE DISORDER NEC [F32.89] 07/29/2006 Anxiety state [F41.1] 07/29/2006 PERS HX TOBACCO USE [Z87.891] 07/29/2006 ROTATOR CUFF SYND NOS [M71.9, M67.919] 01/01/2007 05/20/2007 CERVICAL DISC DISPLACMNT [M50.20] 01/28/2007 VITAMIN D DEFICIENCY NOS [E55.9] 04/30/2007 Rotator cuff dis NEC [OWW3642] 05/20/2007 08/07/2010 Brachial neuritis or radiculitis NOS [M54.12] 05/20/2007 08/07/2010 Pain in soft tissues of limb [M79.609] 08/05/2007 08/07/2010 Unilat ing hernia [K40.90] 12/27/2007 08/07/2010 Recur unilat ing chantel [K40.91] 01/11/2008 08/07/2010 Follow-up examination, following unspecified crane*01/20/2008 08/07/2010 ALCOH DEP NEC/NOS-UNSPEC [F10.20] 02/16/2008 Umbilical hernia without mention of obstruction*02/03/2009 08/07/2010 Gastritis/duodenitis [K29.70, K29.90] 02/07/2009 08/07/2010 Blood in stool [K92.1] 02/07/2009 08/07/2010 Acute Gastritis without Mention of Hemorrhage [*02/07/2009 TBI (traumatic brain injury) [S06.9XAA] 03/21/2011 02/14/2015 Degeneration of cervical intervertebral disc [M*05/30/2011 Cervical spondylosis without myelopathy [M47.81*05/30/2011 Insomnia [G47.00] 06/20/2011 Outbursts of anger [R45.4] 12/08/2012 Absence attack [G40.A09] 03/23/2013 Golfer's elbow [M77.00] 04/01/2013 TBI (traumatic brain injury) (HCC) [S06.9XAA] 02/14/2015 Chronic daily headache [R51.9] 10/13/2015 Moderate single current episode of major depres*10/13/2015 Tobacco use disorder [F17.200] 10/13/2015 Abscess of middle lobe of right lung with pneum*10/14/2016 Pulmonary nodules [R91.8] 02/06/2018 Chronic obstructive pulmonary disease (HCC) [J4*10/15/2023 Letter Text Encounter Status:Closed by RODRIGUEZ WEISS on 10/23/23 Normal [facility] CBC W Auto Differential pane l (Bld)on 10-15-2023 Basophils (Bld) [#/Vol] 0.05 10*3/uL [facility] Basophils/100 WBC (Bld) 0.6 % [facility] Differential cell count method Nom (Bld) Auto [facility] Eosinophils (Bld) [#/Vol] 0.18 10*3/uL [facility] Eosinophils/100 WBC (Bld) 2.1 % [facility] Erythrocyte distribution width (RBC) [Ratio] 13.9 % 11.5 - 15.0 % [facility] Hematocrit (Bld) [Volume fraction] 47.2 % 39.0 - 51.0 % [facility] Hemoglobin (Bld) [Mass/Vol] 15.6 g/dL 13.0 - 17.0 g/dL [facility] Immature granulocytes (Bld) [#/Vol] 0.03 10*3/uL [facility] Immature granulocytes/100 WBC (Bld) 0.3 % [facility] Interpretation and review of laboratory results Abnormal [facility] Lymphocytes (Bld) [#/Vol] 3.34 10*3/uL [facility] Lymphocytes/100 WBC (Bld) 38.0 % [facility] MCH (RBC) [Entitic mass] 29.7 pg 26.0 - 34.0 pg [facility] MCHC (RBC) [Mass/Vol] 33.1 g/dL 30.5 - 36.0 g/dL [facility] MCV (RBC) [Entitic vol] 89.9 fL 80.0 - 100.0 fL [facility] Monocytes (Bld) [#/Vol] 0.63 10*3/uL [facility] Monocytes/100 WBC (Bld) 7.2 % [facility] Neutrophils (Bld) [#/Vol] 4.55 10*3/uL [facility] Neutrophils/100 WBC (Bld) 51.8 % [facility] Nucleated RBC (Bld) [#/Vol] NINF [facility] Nucleated RBC/100 WBC (Bld) [Ratio] 0.0 % /100 WBC [facility] Platelet mean volume (Bld) [Entitic vol] 8.6 fL Low 9.0 - 12.7 fL [facility] Platelets (Bld) [#/Vol] 337 10*3/uL [facility] RBC (Bld) [#/Vol] 5.25 10*6/uL 4.20 - 6.0 0 m/uL [facility] WBC (Bld) [#/Vol] 8.78 10*3/uL [facility] Basophils (Bld) [#/Vol] 0.05 10*3/uL Normal <0.11 [facility] Comment on above: Order Comment: Speci men Type: BLOOD SPECIMENOrdering Facility: [facility] Address: [address] [place] [address] Performed By: #### 5 7021-8 ####[facility] [id number] [address] OF [facility] Basophils/100 WBC (Bld) 0.6 % Normal [facility] Comment on above: Order Comment: Speci men Type: BLOOD SPECIMENOrdering Facility: [facility] Address: [address] [place] [address] Performed By: #### 5 7021-8 ####[facility] [id number] [place] [address] [place] Differential cell count method Nom (Bld) Auto Normal [facility] Comment on above: Order Comment: Speci men Type: BLOOD SPECIMENOrdering Facility: [facility] Address: [address] [place] [address] Performed By: #### 5 7021-8 ####[facility] [id number] [place] [address] [place] Eosinophils (Bld) [#/Vol] 0.18 10*3/uL Normal <0.46 [facility] Comment on above: Order Comment: Speci men Type: BLOOD SPECIMENOrdering Facility: [facility] Address: [address] [place] [address] Performed By: #### 5 7021-8 ####[facility] [id number] [place] [address] [place] Eosinophils/100 WBC (Bld) 2.1 % Normal [facility] Comment on above: Order Comment: Speci men Type: BLOOD SPECIMENOrdering Facility: [facility] Address: [address] [place] [address] Performed By: #### 5 7021-8 ####[facility] [id number] [place] [address] [place] Erythrocyte distribution width (RBC) [Ratio] 13.9 % Normal 11.5-15.0 [facility] Comment on above: Order Comment: Speci men Type: BLOOD SPECIMENOrdering Facility: [facility] Address: [address] [place] [address] Performed By: #### 5 7021-8 ####[facility] [id number] [place] [address] [place] Hematocrit (Bld) [Volume fraction] 47.2 % Normal 39.0-51.0 [facility] Comment on above: Order Comment: Speci men Type: BLOOD SPECIMENOrdering Facility: [facility] Address: [address] [place] [address] Performed By: #### 5 7021-8 ####[facility]ENTERNCLIA [id number] [place] [address] [place] Hemoglobin (Bld) [Mass/Vol] 15.6 g/dL Normal 13.0-17.0 [facility] Comment on above: Order Comment: Speci men Type: BLOOD SPECIMENOrdering Facility: [facility] Address: [address] [place] [address] Performed By: #### 5 7021-8 ####[facility] CENTERNCA [id number] [place] [address] [place] Immature granulocytes (Bld) [#/Vol] 0.03 10*3/uL Normal <0.10 [facility] Comment on above: Order Comment: Speci men Type: BLOOD SPECIMENOrdering Facility: [facility] Address: [address] [place] [address] Performed By: #### 5 7021-8 ####[facility]ENTERNCLIA [id number] [place] [address] [place] Immature granulocytes/100 WBC (Bld) 0.3 % Normal [facility] Comment on above: Order Comment: Speci men Type: BLOOD SPECIMENOrdering Facility: [facility] Address: [address] [place] [address] Performed By: #### 5 7021-8 ####[facility]ENTERNCLIA [id number] [place] [address] [place] Lymphocytes (Bld) [#/Vol] 3.34 10*3/uL Normal 1.00-4.00 [facility] Comment on above: Order Comment: Speci men Type: BLOOD SPECIMENOrdering Facility: [facility] Address: [address] [place] [address] Performed By: #### 5 7021-8 ####[facility] CENTERNCVÍCTORA [id number] [place] [address] [place] Lymphocytes/100 WBC (Bld) 38.0 % Normal [facility] Comment on above: Order Comment: Speci men Type: BLOOD SPECIMENOrdering Facility: [facility] Address: [address] [place] [address] Performed By: #### 5 7021-8 ####[facility] CENTERNCVÍCTOR [id number] [place] [address] [place] MCH (RBC) [Entitic mass] 29.7 pg Normal 26.0-34.0 [facility] Comment on above: Order Comment: Speci men Type: BLOOD SPECIMENOrdering Facility: [facility] Address: [address] [place] [address] Performed By: #### 5 7021-8 ####[facility] [id number] [place] [address] [place] MCHC (RBC) [Mass/Vol] 33.1 g/dL Normal 30.5-36.0 [facility] Comment on above: Order Comment: Speci men Type: BLOOD SPECIMENOrdering Facility: [facility] Address: [address] [place] [address] Performed By: #### 5 7021-8 ####[facility]ENTERNCLI [id number] [place] [address] [place] MCV (RBC) [Entitic vol] 89.9 fL Normal 80.0-100.0 [facility] Comment on above: Order Comment: Speci men Type: BLOOD SPECIMENOrdering Facility: [facility] Address: [address] [place] [address] Performed By: #### 5 7021-8 ####[facility]ENTERNCLIA [id number] [place] [address] [place] Monocytes (Bld) [#/Vol] 0.63 10*3/uL Normal <0.87 [facility] Comment on above: Order Comment: Speci men Type: BLOOD SPECIMENOrdering Facility: [facility] Address: [address] [place] [address] Performed By: #### 5 7021-8 ####[facility] CENTERWNCLIA [id number] [place] [address] [place] Monocytes/100 WBC (Bld) 7.2 % Normal [facility] Comment on above: Order Comment: Speci men Type: BLOOD SPECIMENOrdering Facility: [facility] Address: [address] [place] [address] Performed By: #### 5 7021-8 ####[facility]ENTERNCLIA [id number] [place] [address] [place] Neutrophils (Bld) [#/Vol] 4.55 10*3/uL Normal 1.45-7.50 [facility] Comment on above: Order Comment: Speci men Type: BLOOD SPECIMENOrdering Facility: [facility] Address: [address] [place] [address] Performed By: #### 5 7021-8 ####[facility]ENTERNCLIA [id number] [place] [address] [place] Neutrophils/100 WBC (Bld) 51.8 % Normal [facility] Comment on above: Order Comment: Speci men Type: BLOOD SPECIMENOrdering Facility: [facility] Address: [address] [place] [address] Performed By: #### 5 7021-8 ####[facility]ENTERNCLIA [id number] [place] [address] [place] Nucleated RBC (Bld) [#/Vol] 10*3/uL Normal <0.01 [facility] Comment on above: Order Comment: Speci men Type: BLOOD SPECIMENOrdering Facility: [facility] Address: [address] [place] [address] Performed By: #### 5 7021-8 ####[facility] JOELNCKUNAL [id number] [place] [address] [place] Nucleated RBC/100 WBC (Bld) [Ratio] 0.0 /100 WBC Normal [facility] Comment on above: Order Comment: Speci men Type: BLOOD SPECIMENOrdering Facility: [facility] Address: [address] [place] [address] Performed By: #### 5 7021-8 ####[facility] CENTERNCLIJesús [id number] [place] [address] [place] Platelet mean volume (Bld) [Entitic vol] 8.6 fL Low 9.0-12.7 [facility] Comment on above: Order Comment: Speci men Type: BLOOD SPECIMENOrdering Facility: [facility] Address: [address] [place] [address] Performed By: #### 5 7021-8 ####[facility]ENTERNCLIA [id number] [place] [address] [place] Platelets (Bld) [#/Vol] 337 10*3/uL Normal 150-400 [facility] Comment on above: Order Comment: Speci men Type: BLOOD SPECIMENOrdering Facility: [facility] Address: [address] [place] [address] Performed By: #### 5 7021-8 ####[facility]ENTERNCLIA [id number] [place] [address] [place] RBC (Bld) [#/Vol] 5.25 10*6/uL Normal 4.20-6.00 [facility] Comment on above: Order Comment: Speci men Type: BLOOD SPECIMENOrdering Facility: [facility] Address: [address] [id number] Performed By: #### 5 7021-8 ####[facility]ENTERNCLIA [id number] [place] [address] [place] WBC (Bld) [#/Vol] 8.78 10*3/uL Normal 3.70-11.00 [facility] Comment on above: Order Comment: Speci men Type: BLOOD SPECIMENOrdering Facility: [facility] Address: [address] [id number] Performed By: #### 5 7021-8 ####[facility]ENTERNCLIA [id number] [address] [place] CNOVon 10-15-2023 CNOV Office Visit (INTMWS ) ELIUD BLOUNT ([id number]) 1960 M Date Time Provider Department 10/15/23 10:00 AM ALYCIA ARNOLD INTMWS During your visit today, we recorded the following information about you: Pulse Respiration Blood pressure Weight 75/minute 16/minute 126/86 58.1 kg Alycia Arnold, STORE DETECTIVE.LEGAL INSTRUMENTS EXAMINER 10/15/2023 10:51 AM Signed CC Patient presents with: abdominal discomfort / rectal bleeding several months HPI Eliud Blount is a 63 year old male who presents with abdominal pain for at least 4 months. Location: lower abdomen without radiation Described as: discomfort that is constant Aggravating factors: none Alleviating factors: sometimes with BM but not always Associated symptoms: dark red blood in the stool and on the toilet paper with every BM, diarrhea, nausea, poor appetite Denies: constipation, hard stools, hemorrhoids, straining with BM's, heart burn, reflux, hematemesis, vomiting, problem swallowing GI history: GERD, gastritis Endoscopy: EGD in 2018, Colonoscopy 2009 Family history: non-contributory Increase in SOB with moderate exertion started around the same time a few months ago. He has a history of COPD, [facility] Treated with Trelegy and albuterol. He had an exacerbation a couple weeks ago and was prescribed Doxycycline and prednisone. Cough and wheezing resolved however SOB remained the same after completing treatment. He has a history of seizures and migraines. Treated with Keppra, Depakote, Elavil and Gabapentin by neurologist in [place]. He had not had a seizure in years until a few months ago. Reportedly minor seizures but increasing in frequency. Last week he had at least three. He did not notify his neurologist of this and is overdue for a follow-up. Review of Systems Constitutional: Positive for activity change, appetite change, fatigue and unexpected weight change (weight loss of 10 lbs in 6 months, stabilized but can't seem to gain it back). Negative for chills, diaphoresis and fever. Cardiovascular: Negative for chest pain, palpitations and leg swelling. Genitourinary: Negative for decreased urine volume, dysuria, frequency, hematuria and urgency. Musculoskeletal: Negative for arthralgias and myalgias. Skin: Negative for pallor and rash. Neurological: Negative for dizziness, syncope, weakness and light-headedness. Hematological: Negative for adenopathy. Does not bruise/bleed easily. 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 CERVICAL DISC DISPLACMNT 01/28/2007 Cervicalgia 07/29/2006 Chronic obstructive pulmonary disease (COPD) ([facility]) DEPRESSIVE DISORDER NEC 07/29/2006 Diabetes ([facility]) Headache(784.0) 07/29/2006 Hypertension Intracranial injury of other and unspecified nature, without mention of open intracranial wound, unspecified state of consciousness fell and hit his head in 2003 LATERAL EPICONDYLITIS 07/29/2006 bilateral Other and unspecified alcohol dependence, unspecified drinking behavior 02/16/2008 PERS HX TOBACCO USE 07/29/2006 Pneumonia 09/2016 hospitalized and on a ventilator 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 Alanis RPR 1ST INGUN HRNA AGE 7 YRS/> REDUCIBLE 01/28/2008 Left Open repair RPR UMBILICAL HRNA 5 YRS/> REDUCIBLE simple ALLERGIES Day-Nite Severe Cold-Flu [Farkddq-Pr-Nz-Acetami nophen-Gg], Dextromethorphan, Doxylamine, Pseudoephedrine, Sertraline, Zoloft [Sertraline Hcl], Baclofen, and Nyquil [Dsoqtqpsp-Vrc-Le-Acet aminophen] MEDICATIONS PARoxetine (PAXIL) 20 mg tablet Take 1 tablet by mouth once daily. albuterol (PROVENTIL) 5 mg/mL nebu Inhale 0.5 mL as instructed every 4 hours while awake. 1 DOSE NOW - BACK OFFICE. PLACE 0.5 ML PER DROPPER AND 2.5 ML OF NORMAL SALINE INTO RESERVOIR. albuterol (PROVENTIL) 2.5 mg /3 mL (0.083 %) nebulizer solution Use 3 mL via nebulizer every 4 hours as needed for wheezing/shortness of breath. Use over 5-15minutes. omeprazole (PRILOSEC) 40 mg capsule Take 1 capsule by mouth daily before breakfast. 1/2 hr before meal. fluticasone-umeclidin- vilanter (TRELEGY ELLIPTA) 100-62.5-25 mcg Inhale 1 Puff as inst (more content not included)... Normal [facility] metabolic 2000 panelOrdered By: Lyly Olivarez on 10-15-2023 Albumin [Mass/Vol] 3.8 g/dL Low 3.9 - 4.9 g/dL [facility] ALP [Catalytic activity/Vol] 78 U/L 38 - 113 U/L [facility] ALT [Catalytic activity/Vol] 11 U/L 10 - 54 U/L [facility] Anion gap [Moles/Vol] 3 mmol/L Low 9 - 18 mmol/L [facility] AST [Catalytic activity/Vol] 11 U/L Low 14 - 40 U/L [facility] Bilirubin [Mass/Vol] 0.3 mg/dL 0.2 - 1 .3 mg/dL [facility] Calcium [Mass/Vol] 9.5 mg/dL 8.5 - 10. 2 mg/dL [facility] Chloride [Moles/Vol] 98 mmol/L 97 - 10 5 mmol/L [facility] CO2 [Moles/Vol] 35 mmol/L High 22 - 30 mmol/L [facility] Creatinine [Mass/Vol] 0.65 mg/dL Low 0.73 - 1.22 mg/dL [facility] GFR/1.73 sq M.predicted among non-blacks MDRD (S/P/Bld) [Vol rate/Area] 107 mL/min/{1.73_m2} - PINF [facility] Comment on above: Estimated Glomerular Filtration Rate (eGFR) is calculated using the 2020 CKD-EPI creatinine equation. This equation utilizes serum creatinine, sex, and age as parameters. The creatinine assay has traceable calibration to isotope dilution-mass spectrometry. Refer to KDIGO guidelines for clinical interpretation. In patients with unstable renal function, e.g. those with acute kidney injury, the eGFR may not accurately reflect actual GFR. Glucose [Mass/Vol] 118 mg/dL High 74 - 99 mg/dL [facility] Comment on above: The [place] Diabete s Association (ADA) provides guidance for cutoff values for fasting glucose and random glucose. The ADA defines fasting as no caloric intake for at least 8 hours. Fasting plasma glucose results between 100 to 125 mg/dL indicate increased risk for diabetes (prediabetes). Fasting plasma glucose results greater than or equal to 126 mg/dL meet the criteria for diagnosis of diabetes. In the absence of unequivocal hyperglycemia, results should be confirmed by repeat testing. In a patient with classic symptoms of hyperglycemia or hyperglycemic crisis, random plasma glucose results greater than or equal to 200 mg/dL meet the criteria for diagnosis of diabetes. Reference: Standards of Medical Care in Diabetes 2016, [place] Diabetes Association. Diabetes Care. 2016.39(Suppl 1). Interpretation and review of laboratory results Abnormal [facility] Potassium [Moles/Vol] 4.0 mmol/L 3.7 - 5.1 mmol/L [facility] Protein [Mass/Vol] 6.0 g/dL Low 6.3 - 8.0 g/dL Cl [facility] Sodium [Moles/Vol] 136 mmol/L 136 - 144 mmol/L [facility] Urea nitrogen [Mass/Vol] 11 mg/dL 9 - 24 mg/dL [facility] Comprehensive metabolic 2000 panelon 10-15-2023 Albumin [Mass/Vol] 3.8 g/dL Low 3.9-4.9 [facility] Comment on above: Order Comment: Speci men Type: BLOOD SPECIMENOrdering Facility: [facility] Address: [address] [place] [address] Performed By: #### 2 4323-8 ####[facility] [id number] [place] [address] [place] ALP [Catalytic activity/Vol] 78 U/L Normal 38-113 [facility] Comment on above: Order Comment: Speci men Type: BLOOD SPECIMENOrdering Facility: [facility] Address: [address] [place] [address] Performed By: #### 2 4323-8 ####[facility] [id number] [place] [address] [place] ALT [Catalytic activity/Vol] 11 U/L Normal 10-54 [facility] Comment on above: Order Comment: Speci men Type: BLOOD SPECIMENOrdering Facility: [facility] Address: [address] [place] [address] Performed By: #### 2 4323-8 ####[facility] [id number] [place] [address] [place] Anion gap [Moles/Vol] 3 mmol/L Low 9-18 [facility] Comment on above: Order Comment: Speci men Type: BLOOD SPECIMENOrdering Facility: [facility] Address: [address] [place] [address] Performed By: #### 2 4323-8 ####[facility] MILLTOWNCLIA [id number] [place] [address] [place] AST [Catalytic activity/Vol] 11 U/L Low 14-40 [facility] Comment on above: Order Comment: Speci men Type: BLOOD SPECIMENOrdering Facility: [facility] Address: [address] [place] [address] Performed By: #### 2 4323-8 ####[facility] CENTERWNCLIA [id number] [place] [address] [place] Bilirubin [Mass/Vol] 0.3 mg/dL Normal 0.2-1.3 [facility] Comment on above: Order Comment: Speci men Type: BLOOD SPECIMENOrdering Facility: [facility] Address: [address] [place] [address] Performed By: #### 2 4323-8 ####[facility] CENTERWNCLIA [id number] [place] [address] [place] Calcium [Mass/Vol] 9.5 mg/dL Normal 8.5-10.2 [facility] Comment on above: Order Comment: Speci men Type: BLOOD SPECIMENOrdering Facility: [facility] Address: [address] [place] [address] Performed By: #### 2 4323-8 ####[facility] MILLTOWNCLIA [id number] [place] [address] [place] Chloride [Moles/Vol] 98 mmol/L Normal 97-105 [facility] Comment on above: Order Comment: Speci men Type: BLOOD SPECIMENOrdering Facility: [facility] Address: [address] [place] [address] Performed By: #### 2 4323-8 ####[facility] MILLWNCLIA [id number] [place] [address] [place] CO2 [Moles/Vol] 35 mmol/L High 22-30 [facility] Comment on above: Order Comment: Speci men Type: BLOOD SPECIMENOrdering Facility: [facility] Address: [address] [place] [address] Performed By: #### 2 4323-8 ####[facility] [id number] [place] [address] [place] Creatinine [Mass/Vol] 0.65 mg/dL Low 0.73-1.22 [facility] Comment on above: Order Comment: Speci men Type: BLOOD SPECIMENOrdering Facility: [facility] Address: [address] [place] [address] Performed By: #### 2 4323-8 ####[facility] [id number] [place] [address] [place] Creatinine and Glomerular filtration rate.predicted panel (S/P/Bld) 107 mL/min/1.73m??? Normal >=60 [facility] Comment on above: Order Comment: Speci men Type: BLOOD SPECIMENOrdering Facility: [facility] Address: [address] [place] [address] Result Comment: Dorothy mated Glomerular Filtration Rate (eGFR) is calculated using the 2020 CKD-EPI creatinine equation. This equation utilizes serum creatinine, sex, and age as parameters. The creatinine assay has traceable calibration to isotope dilution-mass spectrometry. Refer to KDIGO guidelines for clinical interpretation. In patients with unstable renal function, e.g. those with acute kidney injury, the eGFR may not accurately reflect actual GFR. Performed By: #### 2 4323-8 ####[facility] [id number] [place] [address] [place] Glucose [Mass/Vol] 118 mg/dL High 74-99 [facility] Comment on above: Order Comment: Speci men Type: BLOOD SPECIMENOrdering Facility: [facility] Address: [address] [place] [address] [place] [address] Result Comment: The [place] Diabetes Association (ADA) provides guidance for cutoff values for fasting glucose and random glucose. The ADA defines fasting as no caloric intake for at least 8 hours. Fasting plasma glucose results between 100 to 125 mg/dL indicate increased risk for diabetes (prediabetes). Fasting plasma glucose results greater than or equal to 126 mg/dL meet the criteria for diagnosis of diabetes. In the absence of unequivocal hyperglycemia, results should be confirmed by repeat testing. In a patient with classic symptoms of hyperglycemia or hyperglycemic crisis, random plasma glucose results greater than or equal to 200 mg/dL meet the criteria for diagnosis of diabetes. Reference: Standards of Medical Care in Diabetes 2016, [place] Diabetes Association. Diabetes Care. 2016.39(Suppl 1). Performed By: #### 2 4323-8 ####[facility] CENTERGREERJesús [id number] [place] [address] [place] Potassium [Moles/Vol] 4.0 mmol/L Normal 3.7-5.1 [facility] Comment on above: Order Comment: Speci men Type: BLOOD SPECIMENOrdering Facility: [facility] Address: [address] [id number] Performed By: #### 2 4323-8 ####[facility] [id number] [place] [address] [place] Protein [Mass/Vol] 6.0 g/dL Low 6.3-8.0 [facility] Comment on above: Order Comment: Speci men Type: BLOOD SPECIMENOrdering Facility: [facility] Address: [address] [place] [address] Performed By: #### 2 4323-8 ####[facility] [id number] [place] [address] [place] Sodium [Moles/Vol] 136 mmol/L Normal 136-144 [facility] Comment on above: Order Comment: Speci men Type: BLOOD SPECIMENOrdering Facility: [facility] Address: [address] [place] [address] Performed By: #### 2 4323-8 ####[facility] DARBYWNCLIA [id number] [place] [address] [place] Urea nitrogen [Mass/Vol] 11 mg/dL Normal 9-24 [facility] Comment on above: Order Comment: Speci men Type: BLOOD SPECIMENOrdering Facility: [facility] Address: [facility] [address] Performed By: #### 2 4323-8 ####[facility] DARBYWSHAEA [id number] [place] [address] [place] THYROID STIMULATING HORMONEo n 10-15-2023 TSH Qn 0.659 m[IU]/L [facility] TSH Qnon 10-15-2023 Interpretation and review of laboratory results Normal [facility] TSH SerPl-aCncon 10-15-2023 TSH Qn 0.659 m[IU]/L Normal 0.270-4.200 [facility] Comment on above: Order Comment: Speci men Type: BLOOD SPECIMENOrdering Facility: [facility] Address: [facility] [address] Performed By: #### 3 016-3 ####[facility] LABCLIA [id number] [place] [address] [place] XR CHEST 2V FRONTAL/LATon XR CHEST 2V FRONTAL/LAT * * *Final Report* * * DATE OF EXAM: Oct 15 2023 10:56AM WOX 5291 - XR CHEST 2V FRONTAL/LAT / PROCEDURE REASON: Shortness of breath * * * * Physician Interpretation * * * * EXAMINATION: CHEST RADIOGRAPH (2 VIEW FRONTAL and LATERAL) CLINICAL HISTORY: Shortness of breath MQ: XC2_6 EXAM DATE/TIME: 10/15/2023 10:56 AM COMPARISON: Chest x-ray dated May 17, 2022 RESULT: Lines, tubes, and devices: None. Lungs and pleura: Lungs hyperinflated. No consolidation. No lung mass. Stable blunting of the right posterior lateral and left posterior costophrenic sulci, findings which may reflect chronic pleural thickening and/or trace chronic pleural effusions. No pneumothorax. Cardiomediastinal silhouette: Normal cardiomediastinal silhouette. Bones and soft tissues: Mild degenerative changes. IMPRESSION: 1. Hyperinflated lungs which may be related to underlying COPD. 2.Stable blunting of the right posterior lateral and left posterior costophrenic sulci, findings which may reflect chronic pleural thickening and/or trace chronic pleural effusions. Singer Songwriter: [facility] Transcribe Date/Time: Oct 15 2023 10:58A Dictated by : STEPHANIE FITZGERALD MD This examination was interpreted and the report reviewed and electronically signed by: STEPHANIE FITZGERALD MD on Oct 15 2023 11:00AM EST [id number] Normal [facility] XR Chest PA and Lateralon IMPRESSION: 1. Hyperinflated lungs which may be related to underlying COPD. 2.Stable blunting of the right posterior lateral and left posterior costophrenic sulci, findings which may reflect chronic pleural thickening and/or trace chronic pleural effusions. Singer Songwriter: [facility] Transcribe Date/Time: Oct 15 2023 10:58A Dictated by : STEPHANIE FITZGERALD MD This examination was interpreted and the report reviewed and electronically signed by: STEPHANIE FITZGERALD MD on Oct 15 2023 11:00AM EST DIVISION OF RADIOLOGY * * *Final Report* * * DATE OF EXAM: Oct 15 2023 10:56AM WOX 5291 - XR CHEST 2V FRONTAL/LAT / PROCEDURE REASON: Shortness of breath * * * * Physician Interpretation * * * * EXAMINATION: CHEST RADIOGRAPH (2 VIEW FRONTAL & LATERAL) CLINICAL HISTORY: Shortness of breath MQ: XC2_6 EXAM DATE/TIME: 10/15/2023 10:56 AM COMPARISON: Chest x-ray dated May 17, 2022 RESULT: Lines, tubes, and devices: None. Lungs and pleura: Lungs hyperinflated. No consolidation. No lung mass. Stable blunting of the right posterior lateral and left posterior costophrenic sulci, findings which may reflect chronic pleural thickening and/or trace chronic pleural effusions. No pneumothorax. Cardiomediastinal silhouette: Normal cardiomediastinal silhouette. Bones and soft tissues: Mild degenerative changes. DIVISION OF RADIOLOGY Provider, Renaldo Blanco - 10/15/2023 * * *Final Report* * * DATE OF EXAM: Oct 15 2023 10:56AM WOX 5291 - XR CHEST 2V FRONTAL/LAT / PROCEDURE REASON: Shortness of breath * * * * Physician Interpretation * * * * EXAMINATION: CHEST RADIOGRAPH (2 VIEW FRONTAL & LATERAL) CLINICAL HISTORY: Shortness of breath MQ: XC2_6 EXAM DATE/TIME: 10/15/2023 10:56 AM COMPARISON: Chest x-ray dated May 17, 2022 RESULT: Lines, tubes, and devices: None. Lungs and pleura: Lungs hyperinflated. No consolidation. No lung mass. Stable blunting of the right posterior lateral and left posterior costophrenic sulci, findings which may reflect chronic pleural thickening and/or trace chronic pleural effusions. No pneumothorax. Cardiomediastinal silhouette: Normal cardiomediastinal silhouette. Bones and soft tissues: Mild degenerative changes. IMPRESSION IMPRESSION: 1. Hyperinflated lungs which may be related to underlying COPD. 2.Stable blunting of the right posterior lateral and left posterior costophrenic sulci, findings which may reflect chronic pleural thickening and/or trace chronic pleural effusions. Singer Songwriter: KEVEN Transcribe Date/Time: Oct 15 2023 10:58A Dictated by : STEPHANIE FITZGERALD MD This examination was interpreted and the report reviewed and electronically signed by: STEPHANIE FITZGERALD MD on Oct 15 2023 11:00AM EST [facility] Radiology Study observation (narrative) [facility] XR Chest PA and LateralOrder ed By: [facility] Provider on 10-15-2023 [facility] CNOVon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 OPERATOR Comment on above: Clinical Update Start: 07-31-2023 End: 07-31-2023 ambulatory RADHA S WEYGANDT Not Available Start: 07-31-2023 End: 07-31-2023 Office outpatient visit 15 minutes Radha S Weygandt DISPENSARY ATTENDANT Work Phone: [facility] Comment on above: Seizure (CMS/HCC) (P rimary Dx); Migraine without aura and without status migrainosus, not intractable (CMS/HCC) Start: 06-23-2023 End: 06-23-2023 ambulatory RADHA S WEYGANDT Not Available Start: 04-07-2023 End: 04-07-2023 ambulatory [facility] Facility:[facility] Start: 04-07-2023 End: 04-07-2023 Patient encounter procedure Autumn Perrin PA-C Work Phone: [facility] Comment on above: Anxiety associated w ith depression (Primary Dx); Psychosocial stressors Start: 04-03-2023 End: 04-03-2023 ambulatory CHARAN ARNDT Facility:[facility] Start: 04-03-2023 End: 04-03-2023 Patient encounter procedure Vane Kline APRN.LEGAL INSTRUMENTS EXAMINER Work Phone: [facility] Comment on above: Rhinosinusitis (Prim lexii Dx) Start: 03-05-2023 End: 03-05-2023 Patient encounter procedure Malathi Skinner NAZANIN.LEGAL INSTRUMENTS EXAMINER Work Phone: [facility] Comment on above: Diarrhea, unspecifie d type (Primary Dx); Lower abdominal pain Start: 05-21-2022 Telephone encounter Charan issa MD Work Phone: [facility] Comment on above: Patient Update ([facility] Start: 05-17-2022 End: 05-17-2022 Subsequent hospital visit by physician Xr [facility] Work Phone: Radiology Comment on above: Fever, unspecified f ever cause [R50.9] Start: 05-17-2022 End: 05-17-2022 Patient encounter procedure Elida Ibarra PA-C Work Phone: [facility] Comment on above: Lingular pneumonia ( Primary Dx) Start: 04-15-2022 Telephone encounter Xochilt Cabrales APRN.LEGAL INSTRUMENTS EXAMINER Work Phone: [facility] Comment on above: Rx backordered Start: 04-15-2022 End: 04-15-2022 Patient encounter procedure Xochilt Cabrales APRN.LEGAL INSTRUMENTS EXAMINER Work Phone: [facility] Comment on above: COPD with exacerbati on (HCC) (Primary Dx); Sinobronchitis Start: 02-28-2022 Refill Alison Whitten APRN, .CNP Work Phone: [facility] Comment on above: Refill Request Procedures Date Procedure Procedure Detail Performing Clinician Start: 10-15-2023 Radiologic exam ches t 2 views Alycia Arnold STORE DETECTIVE.LEGAL INSTRUMENTS EXAMINER Work Phone: Start: 05-17-2022 Radiologic exam ches t 2 views Elida Ibarra PA-C Work Phone: Start: 10-10-2016 Lipid 1996 panel - S marsha or Plasma Malathi Skinner STORE DETECTIVE.LEGAL INSTRUMENTS EXAMINER Work Phone: Start: 02-07-2009 Colonoscopy Alison Whitten STORE DETECTIVE.LEGAL INSTRUMENTS EXAMINER Work Phone: Plan of Treatment Date Care Activity Detail Author Start: 04-28-2033 Urine microalbumin profile DTaP,Tdap,Td Vaccine (3 - Td or Tdap) [facility] Start: 10-14-2026 Diabetes Screening Diabetes Screenin g [facility] Start: 03-05-2026 Diabetes Screening Diabetes Screenny g [facility] Start: 10-14-2024 Annual PCP Team Optical Glass Wet Inspector natividad Disease Visit Annual PCP Team Chronic Disease Visit [facility] Start: 10-02-2024 Urine microalbumin profile [facility] Start: 03-12-2024 End: 03-12-2024 Patient encounter procedure 03/12/2024 2:00 PM EDT Office Visit [facility] [address] [place] [address] Charan Arndt MD [address] [place], [place] [id number] Weight [facility] Comment on above: Weight Loss Follow U p [facility] Visit Start: 03-01-2024 DIABETES SCREEN DIABETES SCREEN [facility] Start: 02-24-2024 End: 05-25-2024 Lipid 1996 panel - Serum or Plasma LIPID PANEL BASIC Lab Routine Medication management Expected: 02/24/2024, Expires: 05/25/2024 [facility] Work Phone: Comment on above: Expected: 02/24/2024 , Expires: 05/25/2024 Start: 02-15-2024 Covid-19 Vaccine () Covid-19 Vaccine () [facility] Start: 02-15-2024 Covid-19 Vaccine () Covid-19 Vaccine () [facility] Start: 02-15-2024 Influenza vaccination C [facility] Start: 10-27-2023 End: 10-27-2023 Patient encounter procedure 10/27/2023 8:45 AM EDT Office Visit General Surgery [address] [place], [place] [id number] Teresa Arechiga MD [address] [place] [address] Shortness of breath [R06.02]; Blood in stool [K92.1]; Rectal bleeding [K62.5]; Unintentional weight loss [R63.4] General Surgery Comment on above: Shortness of breath [R06.02]; Blood in stool [K92.1]; Rectal bleeding [K62.5]; Unintentional weight loss [R63.4] Start: 10-15-2023 End: 10-15-2023 Patient encounter procedure 10/15/2023 10:00 AM EDT Office Visit [facility] [address] [place], [place] [id number] Alycia Arnold, STORE DETECTIVE.LEGAL INSTRUMENTS EXAMINER [address] [place], [place] [id number] mild abd discomfort and rectal bleeding for several months, see triage encounter 10/14/23 [facility] Comment on above: mild abd discomfort and rectal bleeding for several months, see triage encounter 10/14/23 Start: 03-05-2023 End: 05-05-2023 Lipase [Enzymatic activity/volume] in Serum or Plasma [facility] Work Phone: Comment on above: Expected: 03/05/2023 , Expires: 05/05/2023 Start: 02-14-2023 Covid-19 Vaccine () Covid-19 Vaccine () [facility] Start: 02-14-2023 Influenza vaccination Influenza Vacc ine (#1) [facility] Start: 2022 RSV Vaccine (1 - 1-d ose 60+ series) RSV Vaccine (1 - 1-dose 60+ series) [facility] Start: 2022 RSV Vaccine (1 - Ris k 60-74 years 1-dose series) RSV Vaccine (1 - Risk 60-74 years 1-dose series) [facility] Start: 02-14-2022 Influenza vaccination INFLUENZA (#1) [facility] Start: 10-10-2021 Lipid 1996 panel - S marsha or Plasma Lipid Screening [facility] Start: 10-10-2021 Lipid panel Lipid Screening [facility] Start: 10-10-2021 LIPID SCREEN LIPID SCREEN [facility] Start: 10-10-2021 PROSTATE CANCER SCREENING DISCUSSION PROSTATE CANCER SCREENING DISCUSSION [facility] Start: 10-10-2021 Prostate specific antigen measurement Prostate Cancer Screening Discussion [facility] Start: 03-21-2021 COVID-19 VACCINE (3 - Booster for Pfizer series) COVID-19 VACCINE (3 - Booster for Pfizer series) [facility] Start: 12-14-2020 COVID-19 VACCINE (3 - Booster for Pfizer series) COVID-19 VACCINE (3 - Booster for Pfizer series) [facility] Start: 12-14-2020 Covid-19 Vaccine (3 - Pfizer series) Covid-19 Vaccine (3 - Pfizer series) [facility] Start: 02-07-2019 Colonoscopy COLONOSCOPY [facility] Start: 02-07-2019 COLORECTAL CANCER SCREENING COLORECTAL CANCER SCREENING [facility] Start: 02-07-2019 Screening for malign ant neoplasm of colon [facility] Start: 12-11-2016 PNEUMOCOCCAL (2 - PCV) PNEUMOCOCCAL (2 - PCV) [facility] Start: 12-11-2016 Pneumococcal vaccination [facility] Start: 2012 SHINGRIX VACCINE (1 of 2) SHINGRIX VACCINE (1 of 2) [facility] Start: 06-11-2012 FECAL OCCULT BLOOD FECAL OCCULT BLOO D [facility] Start: 06-11-2012 Screening for malign ant neoplasm of colon Fecal Occult Blood [facility] Start: 09-24-2007 COLOGUARD (FIT-DNA) COLOGUARD (FIT-D NA) [facility] Start: 09-24-[address] COLONOGRAPHY [facility] Start: 09-24-2007 Screening for malign ant neoplasm of colon [facility] Start: 09-24-2007 SIGMOIDOSCOPY SIGMOIDOSCOPY [facility] Start: 1992 Zoledronic acid therapy Alpha- 1 Antitrypsin Deficiency Screening [facility] Start: 1980 Spirometry Spirometry [facility] Clostridioides diffi cile toxin genes [Presence] in Stool by SOLITARIO with probe detection C. DIFFICILE PCR Lab Routine Diarrhea, unspecified type Ordered: 03/05/2023 [facility] Work Phone: Comment on above: Ordered: 03/05/2023 COVID & INFLUENZA A/ B & RSV PCR, ROUTINE COVID & INFLUENZA A/B & RSV PCR, ROUTINE Microbiology Routine Bacterial sinusitis 02/22/2024 3:08 PM EDT [facility] Work Phone: ENTERIC BACTERIAL PA ROSALIND BY PCR ENTERIC BACTERIAL PANEL BY PCR Lab STAT Diarrhea, unspecified type Ordered: 03/05/2023 [facility] Work Phone: Comment on above: Ordered: 03/05/2023 Ova and parasites identified in Unspecified specimen by Light microscopy OVA + PARA MICROSCOPIC Microbiology STAT Diarrhea, unspecified type Ordered: 03/05/2023 [facility] Work Phone: Comment on above: Ordered: 03/05/2023 [facility] Immunizations Immunization Date Immunization Notes Care Provider Susan causey 05-18-2022 influenza virus vacc ine, unspecified formulation Malathi Skinner STORE DETECTIVE.LEGAL INSTRUMENTS EXAMINER Work Phone: [facility] 03-01-2021 influenza, injectabl e, quadrivalent, contains preservative Alison Older STORE DETECTIVE.LEGAL INSTRUMENTS EXAMINER Work Phone: [facility] Work Phone: 04-05-2019 influenza, seasonal, injectable, preservative free Alison Older STORE DETECTIVE.LEGAL INSTRUMENTS EXAMINER Work Phone: [facility] 12-12-2015 pneumococcal polysaccharide vaccine, 23 valent Alison Older STORE DETECTIVE.LEGAL INSTRUMENTS EXAMINER Work Phone: [facility] Work Phone: 10-02-2014 tetanus toxoid, redu grace diphtheria toxoid, and acellular pertussis vaccine, adsorbed Alison Older STORE DETECTIVE.LEGAL INSTRUMENTS EXAMINER Work Phone: [facility] Work Phone: 03-22-2013 influenza virus vacc ine, unspecified formulation Alison Whitten STORE DETECTIVE.LEGAL INSTRUMENTS EXAMINER Work Phone: [facility] 02-07-2008 tetanus and diphther ia toxoids, adsorbed, preservative free, for adult use (2 Lf of tetanus toxoid and 2 Lf of diphtheria toxoid) Alison Older STORE DETECTIVE.LEGAL INSTRUMENTS EXAMINER Work Phone: [facility] Work Phone: Payers Date Payer Category Payer Unknown [id number] 2023 Unknown [id number] 2020 Medicaid [id number] 2020 Medicare [id number] 2020 Medicare [id number] 1960 Unknown [id number] 1960 Unknown [id number] Social History Date Type Detail Facility Start: 08-20-2017 End: 02-03-2024 Tobacco smoking status VAIS Smokes tobacco daily [facility] Work Phone: History of tobacco use Cigarette Smoker C [facility] Work Phone: Start: 08-20-2017 End: 03-05-2023 Cigarettes smoked current (pack per day) - Reported 0.5 [facility] Work Phone: Start: 08-20-2017 End: 02-03-2024 Tobacco use and exposure Smokeless tobacco non-user [facility] Work Phone: Start: 04-10-2021 End: 02-22-2024 Alcohol intake Current non-drinker of alcohol (finding) [facility] Start: 09-16-2011 History SDOH Alcohol Comment Rarely [facility] Start: 08-20-2017 End: 04-15-2022 Tobacco Comment trying to quit smoke 10cigs daily [facility] Start: 1960 Sex Assigned At Not on file C [facility] Start: 04-05-2022 End: 05-17-2022 Exposure to SARS-CoV-2 (event) Not sure [facility] Start: 03-01-2021 End: 03-05-2023 Tobacco use panel [facility] Work Phone: Adult Depression Screening Assessment 4 [facility] Work Phone: Start: 06-23-2023 Alcohol intake Lifetime non-d roxanne (finding) [facility] Start: 12-16-2022 Tobacco Comment Patient smokes 21-30 cigarettes/day [Moderate cigarette smoker]Thinking about quitting. [facility] Start: 12-16-2022 Alcohol Comment Caffeine: > 4 cups/day coffee [facility] Clinical Notes 03-21-2011 to 03-28-2024 Vinita Lilly APRN.LEGAL INSTRUMENTS EXAMINER - 03/28/2024 2:58 PM EDTTelephone Encounter - Shila Roth MA - 02/23/2024 9:49 AM EDTTelephone Encounter - Shila Roth MA - 02/23/2024 9:49 AM EDT Note Date & Type Note Facility 03-28-2024 Note HNO ID: [id number] Author: VINITA LILLY APRN.LEGAL INSTRUMENTS EXAMINER Service: ? Author Type: Nurse Practitioner Type: Progress Notes Filed: 03/28/2024 14:59 Note Text: Patient triaged at [facility], here today with sudden onset contracture and weakness of right arm. Unable to use right arm. I will refer to ER. Visitor to drive pov to ER. Patient ambulating well unassisted. Talking in full sentences. [facility] 03-28-2024 History of Presen t illness Narrative Patient triaged at [facility], here today with sudden onset contracture and weakness of right arm. Unable to use right arm. I will refer to ER. Visitor to drive pov to ER. Patient ambulating well unassisted. Talking in full sentences. documented in this encounter [facility] 02-24-2024 Note Patient Outreach (IN TMMN) ELIUD BLOUNT ([id number]) 1960 M Date Time Provider Department 02/24/24 CHARAN ARNDT During your visit today, we recorded the following information about you: Allergies As of Date: 02/24/2024 Noted Allergy Reaction Day-nite Severe Cold-flu (DOXYLAM*01/07/2017 14 - Other: See Comments DEXTROMETHORPHAN 12/05/2016 14 - Other: See Comments DOXYLAMINE 12/05/2016 14 - Other: See Comments PSEUDOEPHEDRINE 12/05/2016 14 - Other: See Comments SERTRALINE 12/05/2016 6 - Diarrhea ZOLOFT (SERTRALINE HCL) 04/05/2011 6 - Diarrhea 8 - GI Upset BACLOFEN 04/22/2017 14 - Other: See Comments Comments: Patient overdosed on it and was in the icu NYQUIL ([id number]*07/08 5 - Intolerance Date Reviewed: 02/22/2024 Reviewed by: Madison Wagner LPN - Fully Assessed Visit Diagnosis:Medication management [Z79.899] Order(s):LIPID PANEL BASIC [SQLIPB] Order #: [id number] FUTURE Prescriptions as of 02/27/2024 - doxycycline (VIBRA-TABS) 100 mg tablet Take 1 tablet by mouth two times a day for 7 days. - predniSONE (DELTASONE) 20 mg tablet Take 2 tablets by mouth once daily for 5 days. - amitriptyline (ELAVIL) 100 mg tablet Take 1 tablet by mouth daily at bedtime. Prescribed by neurology - divalproex DR (DEPAKOTE) 250 mg EC tablet Take 2 tablets by mouth three times a day. Prescribed by neurology - gabapentin (NEURONTIN) 600 mg tablet Take 1 tablet by mouth three times a day. Prescribed by neurology - ibuprofen (MOTRIN) 200 mg tablet Take 2 tablets by mouth every 6 hours as needed for pain (Take with food.). - albuterol (PROVENTIL) 5 mg/mL nebu Inhale 0.5 mL as instructed every 4 hours while awake. 1 DOSE NOW - BACK OFFICE. PLACE 0.5 ML PER DROPPER AND 2.5 ML OF NORMAL SALINE INTO RESERVOIR. - albuterol (PROVENTIL) 2.5 mg /3 mL (0.083 %) nebulizer solution Use 3 mL via nebulizer every 4 hours as needed for wheezing/shortness of breath. Use over 5-15minutes. - omeprazole (PRILOSEC) 40 mg capsule Take 1 capsule by mouth daily before breakfast. 1/2 hr before meal. - lnmibfbgool-ttdrhldwv-rwphqwbm (TRELEGY ELLIPTA) 100-62.5-25 mcg Inhale 1 Puff as instructed once daily. - levETIRAcetam (KEPPRA) 500 mg tablet twice daily. - albuterol HFA (VENTOLIN HFA) 90 mcg/actuation inhaler Inhale 2 Puffs as instructed every 4 hours as needed for Wheezing/Shortness of Breath. - multivitamin tablet Take 1 tablet by mouth once daily. Problem List As Of Date 02/24/2024 Noted Resolved Headache [R51] 07/29/2006 CERVICALGIA [M54.2] 07/29/2006 Lateral epicondylitis of elbow [M77.10] 07/29/2006 08/07/2010 DEPRESSIVE DISORDER NEC [F32.89] 07/29/2006 Anxiety state [F41.1] 07/29/2006 PERS HX TOBACCO USE [Z87.891] 07/29/2006 ROTATOR CUFF SYND NOS [M71.9, M67.919] 01/01/2007 05/20/2007 CERVICAL DISC DISPLACMNT [M50.20] 01/28/2007 VITAMIN D DEFICIENCY NOS [E55.9] 04/30/2007 Rotator cuff dis NEC [LTT8458] 05/20/2007 08/07/2010 Brachial neuritis or radiculitis NOS [M54.12] 05/20/2007 08/07/2010 Pain in soft tissues of limb [M79.609] 08/05/2007 08/07/2010 Unilat ing hernia [K40.90] 12/27/2007 08/07/2010 Recur unilat ing chantel [K40.91] 01/11/2008 08/07/2010 Follow-up examination, following unspecified crane*01/20/2008 08/07/2010 ALCOH DEP NEC/NOS-UNSPEC [F10.20] 02/16/2008 Umbilical hernia without mention of obstruction*02/03/2009 08/07/2010 Gastritis/duodenitis [K29.70, K29.90] 02/07/2009 08/07/2010 Blood in stool [K92.1] 02/07/2009 08/07/2010 Acute Gastritis without Mention of Hemorrhage [*02/07/2009 TBI (traumatic brain injury) [S06.9XAA] 03/21/2011 02/14/2015 Degeneration of cervical intervertebral disc [M*05/30/2011 Cervical spondylosis without myelopathy [M47.81*05/30/2011 Insomnia [G47.00] 06/20/2011 Outbursts of anger [R45.4] 12/08/2012 Absence attack [G40.A09] 03/23/2013 Golfer's elbow [M77.00] 04/01/2013 TBI (traumatic brain injury) (HCC) [S06.9XAA] 02/14/2015 Chronic daily headache [R51.9] 10/13/2015 Moderate single current episode of major depres*10/13/2015 Tobacco use disorder [F17.200] 10/13/2015 Abscess of middle lobe of right lung with pneum*10/14/2016 Pulmonary nodules [R91.8] 02/06/2018 Chronic obstructive pulmonary disease (HCC) [J4*10/15/2023 Encounter Status:Closed by CUBA PRODUSER on 02/27/24 [facility] 02-23-2024 Telephone encounter Note Will send unable to reach letter to contact office for results & update ALL contact information. Shila Roth MA [facility] 02-23-2024 Miscellaneous Notes Will send unable to reach letter to contact office for results & update ALL contact information. Shila Roth MA both numbers are disconnected states that in the previous note. Radha Toledo MA Please notify positive for covid. Is past treatment window for antiviral treatment and quarantine. Continue with plan of care as discussed during visit. documented in this encounter [facility] 02-23-2024 Telephone encounter Note both numbers are disconnected states that in the previous note. Radha Toledo MA [facility] 02-23-2024 Telephone encounter Note Please notify positive for covid. Is past treatment window for antiviral treatment and quarantine. Continue with plan of care as discussed during visit. [facility] Work Phone: 02-22-2024 Note HNO ID: [id number] Author: XOCHILT CABRALES APRN.CNP Service: ? Author Type: Nurse Practitioner Type: Progress Notes Filed: 02/22/2024 14:51 Note Text: Subjective The history is provided by the patient. No foreign language interpreter was used. SETH Blount is a 63 year old male who presents today for CC of sinus congestion, pressure, yellow drainage, chest congestion. This started over the past 10 days. Many family members have had covid Patient was seen in October for blood in stool and referred to Gen surg - he never followed up, his weight is down 12 lbs since then. Social History Tobacco Use Smoking status: Every Day Current packs/day: 0.50 Average packs/day: 0.5 packs/day for 28.0 years (14.0 ttl pk-yrs) Types: Cigarettes Smokeless tobacco: Never Tobacco comments: trying to quit smoke 10cigs daily Substance Use Topics Alcohol use: No Comment: Rarely Drug use: No PAST MEDICAL HISTORY No date: Acute hypoxemic respiratory failure (HCC) Comment: Oxygen use with goal of 89-92% saturation 07/29/2006: ANXIETY STATE NOS 05/20/2007: BRACHIAL NEURITIS NOS 01/28/2007: CERVICAL DISC DISPLACMNT 07/29/2006: Cervicalgia No date: Chronic obstructive pulmonary disease (COPD) ([facility]) 07/29/2006: DEPRESSIVE DISORDER NEC No date: Diabetes ([facility]) 07/29/2006: Headache(784.0) No date: Hypertension No date: Intracranial injury of other and unspecified nature, without mention of open intracranial wound, unspecified state of consciousness Comment: fell and hit his head in 200307/29/2006: LATERAL EPICONDYLITIS Comment: bilateral 02/16/2008: Other and unspecified alcohol dependence, unspecified drinking behavior 07/29/2006: PERS HX TOBACCO USE 09/2016: Pneumonia Comment: hospitalized and on a ventilator 01/11/2008: RECUR UNILAT INGUIN CHANTEL 02/07/2009: Unspecified gastritis and gastroduodenitis without mention of hemorrhage I have confirmed and edited as necessary, the [facility] [place] Review of Systems Constitutional: Negative for chills and fever. HENT: Positive for congestion. Negative for ear pain, sinus pain and sore throat. Respiratory: Positive for cough. Negative for sputum production, shortness of breath and wheezing. Cardiovascular: Negative for chest pain. Musculoskeletal: Negative for myalgias. Neurological: Negative for headaches. Objective BP 111/74 Pulse 93 Temp 36.1 ?C (97 ?F) Resp 20 Wt 53 kg (116 lb 13.5 oz) SpO2 96% BMI 18.30 kg/m? Physical Exam Vitals and nursing note reviewed. Constitutional: Appearance: He is not toxic-appearing. HENT: Head: Normocephalic and atraumatic. Right Ear: Tympanic membrane, ear canal and external ear normal. Left Ear: Tympanic membrane, ear canal and external ear normal. Nose: Mucosal edema, congestion and rhinorrhea present. Right Sinus: Maxillary sinus tenderness and frontal sinus tenderness present. Left Sinus: Maxillary sinus tenderness and frontal sinus tenderness present. Mouth/Throat: Pharynx: Uvula midline. No oropharyngeal exudate or posterior oropharyngeal erythema. Tonsils: No tonsillar abscesses. Cardiovascular: Rate and Rhythm: Normal rate and regular rhythm. Heart sounds: Normal heart sounds. Pulmonary: Effort: Pulmonary effort is normal. Breath sounds: Normal breath sounds. No decreased breath sounds, wheezing, rhonchi or rales. Lymphadenopathy: Head: Right side of head: No submental, submandibular, tonsillar or preauricular adenopathy. Left side of head: No submental, submandibular, tonsillar or preauricular adenopathy. Cervical: No cervical adenopathy. Right cervical: No superficial cervical adenopathy. Left cervical: No superficial cervical adenopathy. Neurological: Mental Status: He is alert. ASSESSMENT/PLAN: 1. Bacterial sinusitis - ICD9: 473.9, 041.9, ICD10: J32.9, B96.89 (primary diagnosis) - Will begin treatment with Doxycycline - Supportive care with plenty of fluids, rest, and analgesia prn. - Follow up in one week if symptoms persist or worsen. - COVID AND INFLUENZA A/B AND RSV PCR, ROUTINE 2. Weight loss - ICD9: 783.21, ICD10: R63.4 Will set up follow up with PCP for evaluation and follow up 3. COPD with exacerbation (HCC) - ICD9: 491.21, ICD10: J44.1 Prednisone 40 mg (2-20mg tablets) po QD for 5 days Continue inhalers Follow up with PCP for refcheck. Diagnosis and treatment plan were discussed and questions were answered to the patient's satisfaction. Pt acknowledged understanding of concepts and follow up plan. Specific signs and symptoms that would indicate the need for higher level of care were discussed in detail warranting prompt ER evaluation. Xochilt Cabrales APRN.[facility] 02-22-2024 History of Presen t illness Narrative Subjective The history is provided by the patient. No foreign language interpreter was used. HPI Eliud Blount is a 63 year old male who presents today for CC of sinus congestion, pressure, yellow drainage, chest congestion. This started over the past 10 days. Many family members have had covid Patient was seen in October for blood in stool and referred to Gen surg - he never followed up, his weight is down 12 lbs since then. Social History Tobacco Use Smoking status: Every Day Current packs/day: 0.50 Average packs/day: 0.5 packs/day for 28.0 years (14.0 ttl pk-yrs) Types: Cigarettes Smokeless tobacco: Never Tobacco comments: trying to quit smoke 10cigs daily Substance Use Topics Alcohol use: No Comment: Rarely Drug use: No PAST MEDICAL HISTORY No date: Acute hypoxemic respiratory failure (HCC) Comment: Oxygen use with goal of 89-92% saturation 07/29/2006: ANXIETY STATE NOS 05/20/2007: BRACHIAL NEURITIS NOS 01/28/2007: CERVICAL DISC DISPLACMNT 07/29/2006: Cervicalgia No date: Chronic obstructive pulmonary disease (COPD) ([facility]) 07/29/2006: DEPRESSIVE DISORDER NEC No date: Diabetes ([facility]) 07/29/2006: Headache(784.0) No date: Hypertension No date: Intracranial injury of other and unspecified nature, without mention of open intracranial wound, unspecified state of consciousness Comment: fell and hit his head in 200307/29/2006: LATERAL EPICONDYLITIS Comment: bilateral 02/16/2008: Other and unspecified alcohol dependence, unspecified drinking behavior 07/29/2006: PERS HX TOBACCO USE 09/2016: Pneumonia Comment: hospitalized and on a ventilator 01/11/2008: RECUR UNILAT INGUIN CHANTEL 02/07/2009: Unspecified gastritis and gastroduodenitis without mention of hemorrhage I have confirmed and edited as necessary, the [facility] [place] Review of Systems Constitutional: Negative for chills and fever. HENT: Positive for congestion. Negative for ear pain, sinus pain and sore throat. Respiratory: Positive for cough. Negative for sputum production, shortness of breath and wheezing. Cardiovascular: Negative for chest pain. Musculoskeletal: Negative for myalgias. Neurological: Negative for headaches. Objective BP 111/74 Pulse 93 Temp 36.1 C (97 F) Resp 20 Wt 53 kg (116 lb 13.5 oz) SpO2 96% BMI 18.30 kg/m Physical Exam Vitals and nursing note reviewed. Constitutional: Appearance: He is not toxic-appearing. HENT: Head: Normocephalic and atraumatic. Right Ear: Tympanic membrane, ear canal and external ear normal. Left Ear: Tympanic membrane, ear canal and external ear normal. Nose: Mucosal edema, congestion and rhinorrhea present. Right Sinus: Maxillary sinus tenderness and frontal sinus tenderness present. Left Sinus: Maxillary sinus tenderness and frontal sinus tenderness present. Mouth/Throat: Pharynx: Uvula midline. No oropharyngeal exudate or posterior oropharyngeal erythema. Tonsils: No tonsillar abscesses. Cardiovascular: Rate and Rhythm: Normal rate and regular rhythm. Heart sounds: Normal heart sounds. Pulmonary: Effort: Pulmonary effort is normal. Breath sounds: Normal breath sounds. No decreased breath sounds, wheezing, rhonchi or rales. Lymphadenopathy: Head: Right side of head: No submental, submandibular, tonsillar or preauricular adenopathy. Left side of head: No submental, submandibular, tonsillar or preauricular adenopathy. Cervical: No cervical adenopathy. Right cervical: No superficial cervical adenopathy. Left cervical: No superficial cervical adenopathy. Neurological: Mental Status: He is alert. ASSESSMENT/PLAN: 1. Bacterial sinusitis - ICD9: 473.9, 041.9, ICD10: J32.9, B96.89 (primary diagnosis) - Will begin treatment with Doxycycline - Supportive care with plenty of fluids, rest, and analgesia prn. - Follow up in one week if symptoms persist or worsen. - COVID & INFLUENZA A/B & RSV PCR, ROUTINE 2. Weight loss - ICD9: 783.21, ICD10: R63.4 Will set up follow up with PCP for evaluation and follow up 3. COPD with exacerbation (HCC) - ICD9: 491.21, ICD10: J44.1 Prednisone 40 mg (2-20mg tablets) po QD for 5 days Continue inhalers Follow up with PCP for refcheck. Diagnosis and treatment plan were discussed and questions were answered to the patient's satisfaction. Pt acknowledged understanding of concepts and follow up plan. Specific signs and symptoms that would indicate the need for higher level of care were discussed in detail warranting prompt ER evaluation. Xochilt Cabrales APRN.[facility] documented in this encounter [facility] 02-03-2024 Instructions Dotty Hidalgo APRN.CNP - 02/03/2024 2:28 PM EDT - Polytrim 1-2 drops in both eyes every 4 hours while awake for 7 days - Wash hands before and after putting in eye drops CONJUNCTIVITIS PATIENT INSTRUCTIONS: What is conjunctivitis? Conjunctivitis is one of the most common eye infections in children and adults. Often called pink eye, it is an inflammation (swelling) of the conjunctiva, the tissue that lines the inside surface of the eyelid and outer coating of the eye. This tissue helps keep the eyelid and eyeball moist. Conjunctivitis can be caused by a virus, bacteria, irritating substances (shampoos, dirt, smoke, and especially pool chlorine), allergens (substances that cause allergies) or sexually transmitted infections. [place] caused by bacteria, viruses, and sexually transmitted infections can spread easily from person to person, but is not a serious health risk if diagnosed promptly. What are the symptoms of conjunctivitis? The symptoms of conjunctivitis include the following: redness in the white of the eye or inner eyelid greater amount of tears thick yellow discharge that crusts over the eyelashes, especially after sleep (in conjunctivitis caused by bacteria) other discharge from your eye (green or white) itchy eyes (especially in conjunctivitis caused by allergies) burning eyes (especially in conjunctivitis caused by chemicals and irritants) blurred vision increased sensitivity to light See your instrument lens inspector (a doctor trained to treat eye conditions) or family doctor if you have any of these persistent symptoms. Ear infections also commonly occur in children who have bacterial conjunctivitis. The instrument lens inspector will examine your eyes and possibly take a sample of fluid and cells from the eyelid with a cotton swab. Bacteria or viruses that may have caused conjunctivitis can then be seen through a microscope or grown in culture for identification. How is conjunctivitis treated? Bacteria Conjunctivitis caused by bacteria is treated with antibiotics, a type of medicine prescribed by your doctor. The antibiotic can be given as eye drops, ointments, or pills. Eye drops or ointments may need to be applied to the eye three to four times a day for five to seven days. It may be difficult to apply ointments in a child's eye. If the ointment gets as far as the eyelashes, it will most likely melt and enter the eye. Pills may need to be taken for several days. The infection should improve within a week. Take the medicine as instructed by your doctor, even if the symptoms go away. Virus Medicine cannot treat conjunctivitis caused by a virus. This type of conjunctivitis often results from a common cold. Just as a cold must run its course, so must this form of conjunctivitis, which will last from four to seven days. You can help relieve symptoms by applying a cold compress and using artificial tears as recommended by your doctor. Irritating substance To treat this type of conjunctivitis, use warm water for five minutes to wash the irritating substance from the eye. You should also avoid further exposure to the irritating substances. Your eyes should begin to improve within four hours after washing away the substance. If they do not, call your doctor. Allergies Allergy-associated conjunctivitis should be checked out by your instrument lens inspector and an batter mixer. It may disappear completely when the allergy is treated with antihistamines or when the allergen is removed. You can relieve symptoms temporarily by applying a cold compress on closed eyes. Ophthalmia neonatorum and sexually transmitted infections The same bacteria that causes the sexually transmitted infections chlamydia and gonorrhea can also infect the conjunctiva. The form is called ophthalmia neonatorum and is most commonly spread during as the passes through the canal of an infected mother. Newborns are usually given eye drops immediately after to treat any possible infection. Adult conjunctivitis related to sexually-transmitted disease can be spread through hand contact when rubbing the eyes or touching contact lenses after touching infected genitals. Oral antibiotics (pills, eye drops, or ointment) are usually prescribed for treatment. It is important that any sexual contacts be tested and treated for these sexually-transmitted diseases to avoid re-infection. Being around a person who has conjunctivitis and wearing contact lenses may increase your risk of getting conjunctivitis, but the outcome is usually very good with treatment. Washing your hands thoroughly can help prevent the spread of infectious conjunctivitis. Please note that eyes can become re-infected. Call your doctor if symptoms return or if vision decreases after being treated. What can I do to help relieve symptoms of conjunctivitis? Take these measures to relieve the symptoms of conjunctivitis: Protect your eyes from irritating substances. Remove contact lenses, if you wear them. Place cold compresses on your eyes and do not share washcloths or towels with others. Wash your face and eyelids with mild soap or baby shampoo and rinse with water to remove irritating substances. Non-prescription artificial tears, a type of eye drops, may help relieve itching and burning from irritating substances. (Note: Other types of eye drops may irritate the eyes and should not be used.) Do not use the same bottle of drops in the other eye if it is not infected. How can I prevent spreading the infection? Don't touch or rub the infected eye(s). Wash your hands often with soap and warm water. Wash any discharge from your eyes twice a day using a fresh cotton ball or paper towel. Afterwards, discard the cotton ball and wash your hands with soap and warm water. Wash your bed linens, pillowcases, and towels in hot water and detergent. Avoid wearing eye makeup. Don't share eye makeup with anyone else. Never wear another person's contact lens. Wear glasses instead of contact lenses. Throw away disposable lenses or be sure to clean extended wear lenses and all eyewear cases. Avoid sharing common articles such as unwashed towels, cups, and glasses. Wash your hands after applying eye drops or ointment to your eye or your child's eye. Do not use eye drops that were used for an infected eye in a non-infected eye. If your child has bacterial or viral conjunctivitis, keep him or her home from school or day care until he or she is no longer contagious. References Centers for Disease Control and Prevention. Conjunctivitis ([facility]) Accessed 08/26/2013. [employer]. Conjunctivitis: What Is [facility] Eye? Accessed 08/26/2013. Copyright 3249-2180 The [facility]. All rights reserved This information is provided by the [facility] and is not intended to replace the medical advice of your doctor or health care provider. Please consult your health care provider for advice about a specific medical condition. For additional health information, please contact the Center for Consumer Health Information at the [facility] or toll-free extension [phone]. If you prefer, you may visit [email or web address] or [email or web address]. documented in this encounter [facility] 02-03-2024 Note HNO ID: [id number] Author: DOTTY HIDALGO APRN.[facility] Service: ? Author Type: Nurse Practitioner Type: Progress Notes Filed: 02/03/2024 14:39 Note Text: Patient presents with: Eye Problem: Bilat eye redness, states he woke up to matted shut eyes x2 days swelling L is worse than Right Fatigue: Body aches Denies pain in his eyes Eyes were matted shut this AM He woke up sore this morning and was sore and more fatigue. Sates he did not sleep well last night Eye Problem Associated symptoms include fatigue and myalgias. Pertinent negatives include no chills or fever. Fatigue Associated symptoms include fatigue and myalgias. Pertinent negatives include no chills or fever. Review of Systems Constitutional: Positive for fatigue and malaise/fatigue. Negative for chills and fever. Eyes: Positive for discharge and redness. Negative for photophobia, pain, itching and visual disturbance. Musculoskeletal: Positive for myalgias. Physical Exam Vitals reviewed. Constitutional: Appearance: Normal appearance. HENT: Head: Normocephalic. Eyes: General: Right eye: Discharge present. Left eye: Discharge present. Extraocular Movements: Extraocular movements intact. Right eye: Normal extraocular motion. Left eye: Normal extraocular motion. Conjunctiva/sclera: Right eye: Right conjunctiva is injected. Left eye: Left conjunctiva is injected. Pupils: Pupils are equal, round, and reactive to light. Cardiovascular: Rate and Rhythm: Normal rate and regular rhythm. Heart sounds: Normal heart sounds. Pulmonary: Effort: Pulmonary effort is normal. No respiratory distress. Breath sounds: Normal breath sounds. No wheezing, rhonchi or rales. Neurological: Mental Status: He is alert. ASSESSMENT/PLAN: 1. Bacterial conjunctivitis - ICD9: 372.39, 041.9, ICD10: H10.9 Bacterial -Polytrim 1-2 drops to both eyes every 4 hrs while awake for 7 days - course and contagiousness issues discussed, including hand washing. - discussed to follow up if symptoms are not improving or sooner if they worsen -He verbalized understanding and agreement with this plan. Dotty Hidalgo APRN.[facility] 02-03-2024 History of Presen t illness Narrative Patient presents with: Eye Problem: Bilat eye redness, states he woke up to matted shut eyes x2 days swelling L is worse than Right Fatigue: Body aches Denies pain in his eyes Eyes were matted shut this AM He woke up sore this morning and was sore and more fatigue. Sates he did not sleep well last night Eye Problem Associated symptoms include fatigue and myalgias. Pertinent negatives include no chills or fever. Fatigue Associated symptoms include fatigue and myalgias. Pertinent negatives include no chills or fever. Review of Systems Constitutional: Positive for fatigue and malaise/fatigue. Negative for chills and fever. Eyes: Positive for discharge and redness. Negative for photophobia, pain, itching and visual disturbance. Musculoskeletal: Positive for myalgias. Physical Exam Vitals reviewed. Constitutional: Appearance: Normal appearance. HENT: Head: Normocephalic. Eyes: General: Right eye: Discharge present. Left eye: Discharge present. Extraocular Movements: Extraocular movements intact. Right eye: Normal extraocular motion. Left eye: Normal extraocular motion. Conjunctiva/sclera: Right eye: Right conjunctiva is injected. Left eye: Left conjunctiva is injected. Pupils: Pupils are equal, round, and reactive to light. Cardiovascular: Rate and Rhythm: Normal rate and regular rhythm. Heart sounds: Normal heart sounds. Pulmonary: Effort: Pulmonary effort is normal. No respiratory distress. Breath sounds: Normal breath sounds. No wheezing, rhonchi or rales. Neurological: Mental Status: He is alert. ASSESSMENT/PLAN: 1. Bacterial conjunctivitis - ICD9: 372.39, 041.9, ICD10: H10.9 Bacterial -Polytrim 1-2 drops to both eyes every 4 hrs while awake for 7 days - course and contagiousness issues discussed, including hand washing. - discussed to follow up if symptoms are not improving or sooner if they worsen -He verbalized understanding and agreement with this plan. Dotty Hidalgo APRN.LEGAL INSTRUMENTS EXAMINER documented in this encounter [facility] 10-23-2023 Telephone encounter Note Home phone listed - individual answering stated that was the wrong number. Removed from chart. TC to other line states it is no longer in service. Mailed pt letter asking for him to contact the office. [facility] 10-23-2023 Miscellaneous Notes Home phone listed - individual answering stated that was the wrong number. Removed from chart. TC to other line states it is no longer in service. Mailed pt letter asking for him to contact the office. Left message to call office. 10/20/2023 12:15 PM ----- Message from Alycia Arnold APRN.LEGAL INSTRUMENTS EXAMINER sent at 10/20/2023 10:38 AM EDT ----- Please let the patient know chest x-ray findings consistent with COPD, otherwise normal. Follow-up with ehs manager regarding SOB. Lab results were all within acceptable limits. Keep appointment with general surgery as scheduled Alycia Arnold APRN.LEGAL INSTRUMENTS EXAMINER documented in this encounter [facility] 10-20-2023 Telephone encounter Note Left message to call office. 10/20/2023 12:15 PM [facility] 10-20-2023 Telephone encounter Note ----- Message from Alycia Arnold APRN.LEGAL INSTRUMENTS EXAMINER sent at 10/20/2023 10:38 AM EDT ----- Please let the patient know chest x-ray findings consistent with COPD, otherwise normal. Follow-up with ehs manager regarding SOB. Lab results were all within acceptable limits. Keep appointment with general surgery as scheduled Alycia Arnold APRN.LEGAL INSTRUMENTS EXAMINER [facility] 10-15-2023 History of Presen t illness Narrative Radiology Service Progress Note PATIENT NAME: Eliud Blount DATE OF SERVICE: October 15, 2023 TIME: 10:48 AM PATIENT IDENTITY VERIFICATION COMPLETED USING TWO (2) IDENTIFIERS: Name and Date of confirmed by patient verbally. FALL SCREENING: Has the patient had 2 falls in the last year or 1 fall with injury or currently using an Ambulatory Assistive Device (Walker, Cane, Wheelchair, Crutches, etc.)? No PATIENT GENDER DATA: Male PATIENT RELEVANT IMPLANT DATA REVIEWED: Yes PATIENT PRESENTS WITH AN IMPLANTABLE OR ATTACHED PLASTIC SHEETING CUTTER: No RADIOLOGY DEPARTMENT: General X-ray: Exam(s) Completed: Chest X-Ray PERIPHERAL IV DATA: Not applicable SIGNED BY: YENI Rich) October 15, 2023 10:48 AM documented in this encounter [facility] 10-15-2023 Note HNO ID: [id number] Author: PIOTR ORTIZ RT(R) Service: Radiology Author Type: Technologist Type: Progress Notes Filed: 10/15/2023 10:56 Note Text: Radiology Service Progress Note PATIENT NAME: Eliud Blount DATE OF SERVICE: October 15, 2023 TIME: 10:48 AM PATIENT IDENTITY VERIFICATION COMPLETED USING TWO (2) IDENTIFIERS: Name and Date of confirmed by patient verbally. FALL SCREENING: Has the patient had 2 falls in the last year or 1 fall with injury or currently using an Ambulatory Assistive Device (Walker, Cane, Wheelchair, Crutches, etc.)? No PATIENT GENDER DATA: Male PATIENT RELEVANT IMPLANT DATA REVIEWED: Yes PATIENT PRESENTS WITH AN IMPLANTABLE OR ATTACHED PLASTIC SHEETING CUTTER: No RADIOLOGY DEPARTMENT: General X-ray: Exam(s) Completed: Chest X-Ray PERIPHERAL IV DATA: Not applicable SIGNED BY: RT Hilario(R) October 15, 2023 10:48 AM [facility] 10-15-2023 Instructions Alycia Arnold APRN.CNP - 10/15/2023 10:14 AM EDT Please call your neurologist and let them know about increase in frequency of seizures Go to ER or call 911 if you develop severe abdominal pain, vomiting that won't stop, high fever, rigid/hard abdomen, significant rectal bleeding. documented in this encounter [facility] 10-15-2023 Note HNO ID: [id number] Author: ALYCIA ARNOLD APRN.ASHOK Service: ? Author Type: Nurse Practitioner Type: Progress Notes Filed: 10/15/2023 10:51 Note Text: CC Patient presents with: abdominal discomfort / rectal bleeding several months HPI Eliud Blount is a 63 year old male who presents with abdominal pain for at least 4 months. Location: lower abdomen without radiation Described as: discomfort that is constant Aggravating factors: none Alleviating factors: sometimes with BM but not always Associated symptoms: dark red blood in the stool and on the toilet paper with every BM, diarrhea, nausea, poor appetite Denies: constipation, hard stools, hemorrhoids, straining with BM's, heart burn, reflux, hematemesis, vomiting, problem swallowing GI history: GERD, gastritis Endoscopy: EGD in 2018, Colonoscopy 2009 Family history: non-contributory Increase in SOB with moderate exertion started around the same time a few months ago. He has a history of COPD, [facility] Treated with Trelegy and albuterol. He had an exacerbation a couple weeks ago and was prescribed Doxycycline and prednisone. Cough and wheezing resolved however SOB remained the same after completing treatment. He has a history of seizures and migraines. Treated with Keppra, Depakote, Elavil and Gabapentin by neurologist in [place]. He had not had a seizure in years until a few months ago. Reportedly minor seizures but increasing in frequency. Last week he had at least three. He did not notify his neurologist of this and is overdue for a follow-up. Review of Systems Constitutional: Positive for activity change, appetite change, fatigue and unexpected weight change (weight loss of 10 lbs in 6 months, stabilized but can't seem to gain it back). Negative for chills, diaphoresis and fever. Cardiovascular: Negative for chest pain, palpitations and leg swelling. Genitourinary: Negative for decreased urine volume, dysuria, frequency, hematuria and urgency. Musculoskeletal: Negative for arthralgias and myalgias. Skin: Negative for pallor and rash. Neurological: Negative for dizziness, syncope, weakness and light-headedness. Hematological: Negative for adenopathy. Does not bruise/bleed easily. 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 CERVICAL DISC DISPLACMNT 01/28/2007 Cervicalgia 07/29/2006 Chronic obstructive pulmonary disease (COPD) ([facility]) DEPRESSIVE DISORDER NEC 07/29/2006 Diabetes ([facility]) Headache(784.0) 07/29/2006 Hypertension Intracranial injury of other and unspecified nature, without mention of open intracranial wound, unspecified state of consciousness fell and hit his head in 2003 LATERAL EPICONDYLITIS 07/29/2006 bilateral Other and unspecified alcohol dependence, unspecified drinking behavior 02/16/2008 PERS HX TOBACCO USE 07/29/2006 Pneumonia 09/2016 hospitalized and on a ventilator 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 Alanis RPR 1ST INGUN HRNA AGE 7 YRS/> REDUCIBLE 01/28/2008 Left Open repair RPR UMBILICAL HRNA 5 YRS/> REDUCIBLE simple ALLERGIES Day-Nite Severe Cold-Flu [Zfuhgrg-Sa-Pn-Acetaminophen-Gg] , Dextromethorphan, Doxylamine, Pseudoephedrine, Sertraline, Zoloft [Sertraline Hcl], Baclofen, and Nyquil [Svzouxgjb-Yki-Wy-Acetaminophen] MEDICATIONS PARoxetine (PAXIL) 20 mg tablet Take 1 tablet by mouth once daily. albuterol (PROVENTIL) 5 mg/mL nebu Inhale 0.5 mL as instructed every 4 hours while awake. 1 DOSE NOW - BACK OFFICE. PLACE 0.5 ML PER DROPPER AND 2.5 ML OF NORMAL SALINE INTO RESERVOIR. albuterol (PROVENTIL) 2.5 mg /3 mL (0.083 %) nebulizer solution Use 3 mL via nebulizer every 4 hours as needed for wheezing/shortness of breath. Use over 5-15minutes. omeprazole (PRILOSEC) 40 mg capsule Take 1 capsule by mouth daily before breakfast. 1/2 hr before meal. qcijdivdnfw-vnyjhwnqh-dwinmmnr (TRELEGY ELLIPTA) 100-62.5-25 mcg Inhale 1 Puff as instructed once daily. aspirin, enteric coated (ASPIRIN, ENTERIC COATED) 81 mg EC tablet Take 81 mg by mouth once daily. gabapentin (NEURONTIN) 800 mg tablet 600 mg three times daily. from [facility] albuterol HFA (VENTOLIN HFA) 90 mcg/actuation inhaler Inhale 2 Puf (more content not included)... [facility] 10-15-2023 History of Presen t illness Narrative CC Patient presents with: abdominal discomfort / rectal bleeding several months HPI Eliud Blount is a 63 year old male who presents with abdominal pain for at least 4 months. Location: lower abdomen without radiation Described as: discomfort that is constant Aggravating factors: none Alleviating factors: sometimes with BM but not always Associated symptoms: dark red blood in the stool and on the toilet paper with every BM, diarrhea, nausea, poor appetite Denies: constipation, hard stools, hemorrhoids, straining with BM's, heart burn, reflux, hematemesis, vomiting, problem swallowing GI history: GERD, gastritis Endoscopy: EGD in 2018, Colonoscopy 2009 Family history: non-contributory Increase in SOB with moderate exertion started around the same time a few months ago. He has a history of COPD, managed by [facility]. Treated with Trelegy and albuterol. He had an exacerbation a couple weeks ago and was prescribed Doxycycline and prednisone. Cough and wheezing resolved however SOB remained the same after completing treatment. He has a history of seizures and migraines. Treated with Keppra, Depakote, Elavil and Gabapentin by neurologist in [place]. He had not had a seizure in years until a few months ago. Reportedly minor seizures but increasing in frequency. Last week he had at least three. He did not notify his neurologist of this and is overdue for a follow-up. Review of Systems Constitutional: Positive for activity change, appetite change, fatigue and unexpected weight change (weight loss of 10 lbs in 6 months, stabilized but can't seem to gain it back). Negative for chills, diaphoresis and fever. Cardiovascular: Negative for chest pain, palpitations and leg swelling. Genitourinary: Negative for decreased urine volume, dysuria, frequency, hematuria and urgency. Musculoskeletal: Negative for arthralgias and myalgias. Skin: Negative for pallor and rash. Neurological: Negative for dizziness, syncope, weakness and light-headedness. Hematological: Negative for adenopathy. Does not bruise/bleed easily. 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 CERVICAL DISC DISPLACMNT 01/28/2007 Cervicalgia 07/29/2006 Chronic obstructive pulmonary disease (COPD) ([facility]) DEPRESSIVE DISORDER NEC 07/29/2006 Diabetes ([facility]) Headache(784.0) 07/29/2006 Hypertension Intracranial injury of other and unspecified nature, without mention of open intracranial wound, unspecified state of consciousness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 [Viicxdc-Wh-Zf-Acetaminophen-Gg] , Dextromethorphan, Doxylamine, Pseudoephedrine, Sertraline, Zoloft [Sertraline Hcl], Baclofen, and Nyquil [Luplgmmrp-Rhs-Sk-Acetaminophen] MEDICATIONS albuterol (PROVENTIL) 5 mg/mL nebu Inhale 0.5 mL as instructed every 4 hours while awake. 1 DOSE NOW - BACK OFFICE. PLACE 0.5 ML PER DROPPER AND 2.5 ML OF NORMAL SALINE INTO RESERVOIR. albuterol (PROVENTIL) 2.5 mg /3 mL (0.083 %) nebulizer solution Use 3 mL via nebulizer every 4 hours as needed for wheezing/shortness of breath. Use over 5-15minutes. omeprazole (PRILOSEC) 40 mg capsule Take 1 capsule by mouth daily before breakfast. 1/2 hr before meal. owsojsxcyos-ljzpxypwu-lbdgamkp (TRELEGY ELLIPTA) 100-62.5-25 mcg Inhale 1 Puff as instructed once daily. OLANZapine (ZYPREXA) 15 mg tablet Take 15 mg by mouth daily at bedtime. sertraline (ZOLOFT) 50 mg tablet Take 1 tablet by mouth once daily. levETIRAcetam (KEPPRA) 500 mg tablet twice daily. mupirocin (BACTROBAN) 2 % ointment Apply 1 application to affected area three times daily. sildenafil (VIAGRA) 50 mg tablet Take 1 tablet by mouth as needed. amitriptyline (ELAVIL) 100 mg tablet Take 1 tablet by mouth daily at bedtime. aspirin, enteric coated (ASPIRIN, ENTERIC COATED) 81 mg EC tablet Take 81 mg by mouth once daily. divalproex DR (DEPAKOTE) 500 mg EC tablet Take 1 tablet by mouth twice daily. (Patient taking differently: Take 750 mg by mouth two times a day.) gabapentin (NEURONTIN) 800 mg tablet 600 mg three times daily. from [facility] albuterol HFA (VENTOLIN HFA) 90 mcg/actuation inhaler Inhale 2 Puffs as instructed every 4 hours as needed for Wheezing/Shortness of Breath. albuterol (PROVENTIL) 5 mg/mL nebu Inhale 0.5 mL as instructed one time only for 1 dose. 1 DOSE NOW - BACK OFFICE. PLACE 0.5 ML PER DROPPER AND 2.5 ML OF NORMAL SALINE INTO RESERVOIR. Krsrvry-Pkpbqwkywllxu-Weciqtou 250-250-65 mg per tablet Take 6 tablets by mouth every 6 hours as needed. multivitamin tablet Take 1 tablet by mouth once daily. amoxicillin-clavulanic acid (AUGMENTIN) 875-125 mg per tablet Take 1 tablet by mouth two times a day for 7 days. FAMILY HISTORY Problem Relation Age (more content not included)... [facility] 04-03-2023 History of Presen t illness Narrative This note was created using [employer]. Subjective Eliud Blount is a 62 year old male. Patient presents with approximately 10 days of sinus congestion, sinus pressure, and cough. He denies any chest pain or shortness of breath. Denies ear pain. He also expresses that he is anxious today. The history is provided by the patient. Review of Systems Constitutional: Positive for fatigue. Negative for chills and fever. HENT: Positive for congestion, postnasal drip, sinus pressure and sinus pain. Negative for ear discharge, ear pain and sore throat. Respiratory: Positive for cough. Negative for chest tightness, shortness of breath and wheezing. Cardiovascular: Negative for chest pain. Gastrointestinal: Negative for abdominal pain, nausea and vomiting. Neurological: Negative for headaches. All other systems reviewed and are negative. Objective BP 122/79 Pulse 81 Temp 36.5 C (97.7 F) Resp 18 Wt 57.2 kg (126 lb 3.2 oz) SpO2 96% BMI 19.77 kg/m 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 CERVICAL DISC DISPLACMNT 01/28/2007 Cervicalgia 07/29/2006 Chronic obstructive pulmonary disease (COPD) ([facility]) DEPRESSIVE DISORDER NEC 07/29/2006 Diabetes ([facility]) Headache(784.0) 07/29/2006 Hypertension Intracranial injury of other and unspecified nature, without mention of open intracranial wound, unspecified state of consciousness fell and hit his head in 2003 LATERAL EPICONDYLITIS 07/29/2006 bilateral Other and unspecified alcohol dependence, unspecified drinking behavior 02/16/2008 PERS HX TOBACCO USE 07/29/2006 Pneumonia 09/2016 hospitalized and on a ventilator RECUR UNILAT INGUIN CHANTEL 01/11/2008 Unspecified gastritis and gastroduodenitis without mention of hemorrhage 02/07/2009 PAST SURGICAL HISTORY Procedure Laterality Date COLONOSCOPY FLX DX W/COLLJ SPEC WHEN PFRMD normal EGD TRANSORAL BIOPSY SINGLE/MULTIPLE gastritis ESOPHAGOGASTRODUODENOSCOPY TRANSORAL DIAGNOSTIC 06/24/2017 EGD NEUROPLASTY &/TRANSPOSITION ULNAR NERVE ELBOW 2000 right PAST SURGICAL HISTORY OF 1991 left ankle surgery- removal of bone chip PAST SURGICAL HISTORY OF bilateral repair of tennis elbow RPR 1ST INGUN HRNA AGE 7 YRS/> REDUCIBLE 1991 Bilateral Hernia repair, inguinal - laparoscopic - Dr. Alanis RPR 1ST INGUN HRNA AGE 5 YRS/> REDUCIBLE 01/28/2008 Left Open repair RPR UMBILICAL HRNA 5 YRS/> REDUCIBLE simple ALLERGIES Day-Nite Severe Cold-Flu [Vregivq-Zd-Ms-Acetaminophen-Gg] , Dextromethorphan, Doxylamine, Pseudoephedrine, Sertraline, Zoloft [Sertraline Hcl], Baclofen, and Nyquil [Tducahtbs-Jdy-Dy-Acetaminophen] MEDICATIONS albuterol (PROVENTIL) 5 mg/mL nebu Inhale 0.5 mL as instructed every 4 hours while awake. 1 DOSE NOW - BACK OFFICE. PLACE 0.5 ML PER DROPPER AND 2.5 ML OF NORMAL SALINE INTO RESERVOIR. albuterol (PROVENTIL) 2.5 mg /3 mL (0.083 %) nebulizer solution Use 3 mL via nebulizer every 4 hours as needed for wheezing/shortness of breath. Use over 5-15minutes. omeprazole (PRILOSEC) 40 mg capsule Take 1 capsule by mouth daily before breakfast. 1/2 hr before meal. qxwhmlyaprh-nvesmnyll-bizzdbup (TRELEGY ELLIPTA) 100-62.5-25 mcg Inhale 1 Puff as instructed once daily. OLANZapine (ZYPREXA) 15 mg tablet Take 15 mg by mouth daily at bedtime. sertraline (ZOLOFT) 50 mg tablet Take 1 tablet by mouth once daily. levETIRAcetam (KEPPRA) 500 mg tablet twice daily. mupirocin (BACTROBAN) 2 % ointment Apply 1 application to affected area three times daily. sildenafil (VIAGRA) 50 mg tablet Take 1 tablet by mouth as needed. amitriptyline (ELAVIL) 100 mg tablet Take 1 tablet by mouth daily at bedtime. aspirin, enteric coated (ASPIRIN, ENTERIC COATED) 81 mg EC tablet Take 81 mg by mouth once daily. divalproex DR (DEPAKOTE) 500 mg EC tablet Take 1 tablet by mouth twice daily. (Patient taking differently: Take 750 mg by mouth two times a day.) gabapentin (NEURONTIN) 800 mg tablet 600 mg three times daily. from [facility] albuterol HFA (VENTOLIN HFA) 90 mcg/actuation inhaler Inhale 2 Puffs as instructed every 4 hours as needed for Wheezing/Shortness of Breath. albuterol (PROVENTIL) 5 mg/mL nebu Inhale 0.5 mL as instructed one time only for 1 dose. 1 DOSE NOW - BACK OFFICE. PLACE 0.5 ML PER DROPPER AND 2.5 ML OF NORMAL SALINE INTO RESERVOIR. Lmmssun-Mamlsdgaicuqs-Paghzgec 250-250-65 mg per tablet Take 6 tablets by mouth every 6 hours as needed. multivitamin tablet Take 1 tablet by mouth once daily. amoxicillin-clavulanic acid (AUGMENTIN) 875-125 mg per tablet Take 1 tablet by mouth two times a day for 7 days. FAMILY HISTORY Problem Relation Age of Onset Heart Father Alzheimer's Disease Father Diabetes Mother Hypertension Mother Social History Tobacco Use Smoking status: Every Day Packs/day: 0.50 Years: 28.00 Additional pack years: 0.00 Total pack years: 14.00 Types: Cigarettes Smokeless tobacco: Never Tobacco comments: trying to quit smoke 10cigs daily Substance Use Topics Alcohol use: No Comment: Rarely Drug use: No Physical Exam Vitals reviewed. Constitutional: General: He is not in acute distress. Appearance: Normal appearance. He is normal weight. He is not ill-appearing, toxic-appearing or diaphoretic. HENT: Right Ear: Tympanic membrane and ear canal normal. No swelling or tenderness. There is no impacted cerumen. Tympanic membrane is not perforated, erythematous, retracted or bulging. Left Ear: Tympanic membrane and ear canal normal. No swelling or tenderness. There is no impacted cerumen. Tympanic membrane is not perforated, erythematous, retracted or bulging. Nose: Nose normal. Right Sinus: No maxillary sinus tenderness or frontal sinus tenderness. Left Sinus: No maxillary sinus tenderness or frontal sinus tenderness. Mouth/Throat: Mouth: Mucous membranes are moist. Pharynx: Oropharynx is clear. Uvula midline. No pharyngeal swelling, oropharyngeal exudate, posterior oropharyngeal erythema or uvula swelling. Cardiovascular: Rate and Rhythm: Normal rate and regular rhythm. Pulmonary: Effort: Pulmonary effort is normal. No respiratory distress. Breath sounds: Decreased air movement (Right lower lobe sounds decreased. Hx lobectomy.) present. Neurological: General: No focal deficit present. Mental Status: He is alert and oriented to person, place, and time. Mental status is at baseline. Psychiatric: Mood and Affect: Mood normal. Behavior: Behavior normal. Thought Content: Thought content normal. Judgment: Judgment normal. Assessment and Plan ASSESSMENT/PLAN: 1. Rhinosinusitis - ICD9: 473.9, ICD10: J32.9 - Will begin treatment with Augmentin 875 mg PO BID for 7 days - The patient should also be given OTC decongestants prn, OTC cough and cold meds as needed, and warm salt water gargles, throat lozenges and/or OTC throat spray as needed for the first 5-7 days of treatment. - Supportive care with plenty of fluids, rest, and analgesia prn. - Follow up in 3-5 days if symptoms persist or worsen. - Follow up with PCP office on Friday to address anxiety concerns - AMOXICILLIN 875 MG-POTASSIUM CLAVULANATE 125 MG TABLET E Thien [employer] Student Supervising provider was present and guided the care of the patient for the entire session on this date. All documentation was reviewed and agreed upon. Vane Kline APRN.ASHOK documented in this encounter [facility] 03-05-2023 Instructions Malathi Skinner APRN.CNP - 03/05/2023 11:17 AM EDT BASIC INFORMATION DESCRIPTION Chronic diarrhea (more than 5 watery or loose stools a day) in a healthy child. Affects young children (1-1/2 to 3-1/2 years). FREQUENT SIGNS AND SYMPTOMS Frequent, loose stools that often contain undigested vegetable fibers or mucus and occur primarily during the morning. Occasional irritation of the anal area caused by frequency of bowel movements CAUSES Unknown RISK INCREASES WITH Family history of intestinal problems. PREVENTIVE MEASURES Cannot be prevented at present. EXPECTED OUTCOME Despite the chronic diarrhea, affected children develop normally and show no signs of malnutrition. The frequent stools have no special significance. Bowel movements eventually become normal. But it may take 2 to 3 years. POSSIBLE COMPLICATIONS Possible psychological fixation on bowel function because of excessive parental attention to bowel habits. TREATMENT GENERAL MEASURES Don t blame or criticize your child for this problem. Don t expect toilet training to be successful as soon as with other children. Treat your child as normal and try to ignore the problem. Avoid tension. If the child becomes anxious about diarrhea, the problem may become worse or psychological problems may arise. MEDICATION Medicine usually is not necessary for this disorder. Don t give your child any non-prescription antidiarrheal drugs. Side effects may be harmful. ACTIVITY No restrictions. Insist on full normal activity for your child s age group. DIET No special diet, but vitamin and mineral supplements may be helpful. The child should drink at least 6 to 8 glasses of fluid each day to replace fluid lost in stools. NOTIFY OUR OFFICE IF Your child has chronic diarrhea or stools with mucus that haven t been diagnosed. There is blood in the stool. Rectal temperature is 102 deg F (38.9 deg C) or higher. Your chld becomes listless, refuses to eat, or cries loudly and persistently, even when picked up. Your child s growth anddevelopment are not normal. Copyright 1994 [employer] documented in this encounter [facility] 03-05-2023 History of Presen t illness Narrative This note was created using [employer]. Subjective Eliud Blount is a 62 year old male. 62 year old with PMH TBI, cervicalgia, gastritis and hernia presents for illness. Acute onset one 7 to 10 days Uncomfortable feeling that he locates in upper pelvis/abdomen region. After heaving lifting. Thought it was my hernia, citing history of Endorses that same day he developed diarrhea. States that the feeling in the pelvis has greatly improved. Endorses he has about 6 bouts of diarrhea a day Lower back pain. Denies testicular pain or swelling Denies sx Denies fever or chills. Denies recent ATB usage. Denies recent travel outside of country. Has used Metamucil. States history of colonoscopy, but been a while Has history of hernia The history is provided by the patient. No foreign language interpreter was used. Diarrhea This is a new problem. The current episode started more than 1 week ago. The problem occurs 5 to 10 times per day. The problem has not changed since onset.The stool consistency is described as Watery. There has been no fever. Associated symptoms include abdominal pain. Pertinent negatives include no vomiting, no chills, no sweats, no headaches, no arthralgias, no myalgias, no URI and no cough. He has tried Kaeopectate (metamucil) for the symptoms. The treatment provided no relief. His past medical history does not include irritable bowel syndrome, inflammatory bowel disease, short gut syndrome, bowel resection, recent abdominal surgery or malabsorption. 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 CERVICAL DISC DISPLACMNT 01/28/2007 Cervicalgia 07/29/2006 Chronic obstructive pulmonary disease (COPD) ([facility]) DEPRESSIVE DISORDER NEC 07/29/2006 Diabetes ([facility]) Headache(784.0) 07/29/2006 Hypertension Intracranial injury of other and unspecified nature, without mention of open intracranial wound, unspecified state of consciousness fell and hit his head in 2003 LATERAL EPICONDYLITIS 07/29/2006 bilateral Other and unspecified alcohol dependence, unspecified drinking behavior 02/16/2008 PERS HX TOBACCO USE 07/29/2006 Pneumonia 09/2016 hospitalized and on a ventilator 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 UNILAT INGUIN CHANTEL 01/11/2008 Unspecified gastritis and gastroduodenitis without mention of hemorrhage 02/07/2009 PAST SURGICAL HISTORY Procedure Laterality Date COLONOSCOPY FLX DX W/COLLJ SPEC WHEN PFRMD normal EGD TRANSORAL BIOPSY SINGLE/MULTIPLE gastritis ESOPHAGOGASTRODUODENOSCOPY TRANSORAL DIAGNOSTIC 06/24/2017 EGD NEUROPLASTY &/TRANSPOSITION ULNAR NERVE ELBOW 2000 right PAST SURGICAL HISTORY OF 1991 left ankle surgery- removal of bone chip PAST SURGICAL HISTORY OF bilateral repair of tennis elbow RPR 1ST INGUN HRNA AGE 5 YRS/> REDUCIBLE 1991 Bilateral Hernia repair, inguinal - laparoscopic - Dr. Alanis RPR 1ST INGUN HRNA AGE 5 YRS/> REDUCIBLE 01/28/2008 Left Open repair RPR UMBILICAL HRNA 5 YRS/> REDUCIBLE simple ALLERGIES Day-Nite Severe Cold-Flu [Xwgmccp-Kx-Si-Acetaminophen-Gg] , Dextromethorphan, Doxylamine, Pseudoephedrine, Sertraline, Zoloft [Sertraline Hcl], Baclofen, and Nyquil [Higatznzm-Cpb-Op-Acetaminophen] MEDICATIONS albuterol (PROVENTIL) 5 mg/mL nebu Inhale 0.5 mL as instructed every 4 hours while awake. 1 DOSE NOW - BACK OFFICE. PLACE 0.5 ML PER DROPPER AND 2.5 ML OF NORMAL SALINE INTO RESERVOIR. albuterol (PROVENTIL) 2.5 mg /3 mL (0.083 %) nebulizer solution Use 3 mL via nebulizer every 4 hours as needed for wheezing/shortness of breath. Use over 5-15minutes. omeprazole (PRILOSEC) 40 mg capsule Take 1 capsule by mouth daily before breakfast. 1/2 hr before meal. mulmxksysen-mucwonife-uvippkdp (TRELEGY ELLIPTA) 100-62.5-25 mcg Inhale 1 Puff as instructed once daily. OLANZapine (ZYPREXA) 15 mg tablet Take 15 mg by mouth daily at bedtime. sertraline (ZOLOFT) 50 mg tablet Take 1 tablet by mouth once daily. levETIRAcetam (KEPPRA) 500 mg tablet twice daily. mupirocin (BACTROBAN) 2 % ointment Apply 1 application to affected area three times daily. sildenafil (VIAGRA) 50 mg tablet Take 1 tablet by mouth as needed. amitriptyline (ELAVIL) 100 mg tablet Take 1 tablet by mouth daily at bedtime. aspirin, enteric coated (ASPIRIN, ENTERIC COATED) 81 mg EC tablet Take 81 mg by mouth once daily. divalproex DR (DEPAKOTE) 500 mg EC tablet Take 1 tablet by mouth twice daily. (Patient taking differently: Take 750 mg by mouth twice daily.) gabapentin (NEURONTIN) 800 mg tablet 600 mg three times daily. from [facility]ALTH SYSTEM albuterol HFA (VENTOLIN HFA) 90 mcg/actuation inhaler Inhale 2 Puffs as instructed every 4 hours as needed for Wheezing/Shortness of Breath. albuterol (PROVENTIL) 5 mg/mL nebu Inhale 0.5 mL as instructed one time only for 1 dose. 1 DOSE NOW - BACK OFFICE. PLACE 0.5 ML PER DROPPER AND 2.5 ML OF NORMAL SALINE INTO RESERVOIR. Lurqcym-Itucneuecinpr-Wszncnnm 250-250-65 mg per tablet Take 6 tablets by mouth every 6 hours as needed. multivitamin tablet Take 1 tablet by mouth once daily. FAMILY HISTORY Problem Relation Age of Onset Heart Father Alzheimer's Disease Father Diabetes Mother Hypertension Mother Social History Tobacco Use Smoking status: Every Day Packs/day: 0.50 Years: 28.00 Additional pack years: 0.00 Total pack years: 14.00 Types: Cigarettes Smokeless tobacco: Never Tobacco comments: trying to quit smoke 10cigs daily Substance Use Topics Alcohol use: No Comment: Rarely Drug use: No Review of Systems Constitutional: Negative for chills and fatigue. HENT: Negative for congestion, rhinorrhea, sinus pressure, sinus pain, sneezing and sore throat. Eyes: Negative for pain, discharge and itching. Respiratory: Negative for apnea, cough, choking and chest tightness. Cardiovascular: Negative for chest pain, palpitations and leg swelling. Gastrointestinal: Positive for abdominal pain and diarrhea. Negative for vomiting. Musculoskeletal: Negative for arthralgias and myalgias. Skin: Negative for color change, pallor, rash and wound. Allergic/Immunologic: Negative for environmental allergies, food allergies and immunocompromised state. Neurological: Negative for dizziness, facial asymmetry and headaches. Hematological: Negative for adenopathy. Does not bruise/bleed easily. Psychiatric/Behavioral: Negative for agitation and behavioral problems. Objective BP 124/82 Pulse 89 Temp 36.3 C (97.3 F) Resp 20 Wt 62.1 kg (137 lb) SpO2 97% BMI 21.46 kg/m Physical Exam Vitals and nursing note reviewed. Constitutional: General: He is not in acute distress. Appearance: Normal appearance. He is not ill-appearing, toxic-appearing or diaphoretic. HENT: Head: Normocephalic and atraumatic. Right Ear: External ear normal. Left Ear: External ear normal. Nose: Nose normal. No congestion or rhinorrhea. Mouth/Throat: Mouth: Mucous membranes are moist. Pharynx: Oropharynx is clear. No oropharyngeal exudate or posterior oropharyngeal erythema. Eyes: General: Right eye: No discharge. Left eye: No discharge. Extraocular Movements: Extraocular movements intact. Conjunctiva/sclera: Conjunctivae normal. Pupils: Pupils are equal, round, and reactive to light. Cardiovascular: Rate and Rhythm: Normal rate and regular rhythm. Pulses: Normal pulses. Heart sounds: Normal heart sounds. No murmur heard. No friction rub. No gallop. Pulmonary: Effort: Pulmonary effort is normal. No respiratory distress. Breath sounds: Normal breath sounds. No stridor. No wheezing, rhonchi or rales. Chest: Chest wall: No tenderness. Abdominal: General: Abdomen is flat. There is no distension. Palpations: Abdomen is soft. There is no mass. Tenderness: There is no abdominal tenderness. There is no guarding or rebound. Hernia: No hernia is present. Comments: No abdominal TTP Musculoskeletal: General: No swelling, tenderness, deformity or signs of injury. Normal range of motion. Cervical back: Normal range of motion and neck supple. No rigidity or tenderness. Right lower leg: No edema. Left lower leg: No edema. Lymphadenopathy: Cervical: No cervical adenopathy. Skin: General: Skin is warm and dry. Capillary Refill: Capillary refill takes less than 2 seconds. Coloration: Skin is not jaundiced or pale. Findings: No bruising, lesion or rash. Neurological: General: No focal deficit present. Mental Status: He is alert and oriented to person, place, and time. Cranial Nerves: No cranial nerve deficit. Sensory: No sensory deficit. Motor: No weakness. Coordination: Coordination normal. Gait: Gait normal. Deep Tendon Reflexes: Reflexes normal. Psychiatric: Mood and Affect: Mood normal. Behavior: Behavior normal. Thought Content: Thought content normal. Assessment and Plan ASSESSMENT/PLAN: 1. Diarrhea, unspecified type - ICD9: 787.91, ICD10: R19.7 (primary diagnosis) X 10 days Liquid No recent ATB usage BRAT diet - CBC + DIFF - COMP METABOLIC PANEL - OVA + PARA MICROSCOPIC - C. DIFFICILE PCR - ENTERIC BACTERIAL PANEL BY PCR 2. Lower abdominal pain - ICD9: 789.09, ICD10: R10.30 Etiology unclear X 10 days States has improved greatly Abdominal exam benign, no guarding No rebound tenderness Differential Diagnosis includes Gastritis, IBS, Diverticulitis, Appendicitis, and Cystitis - Labs of CBC with Diff, CMP, Lipase, Stool for C diff, and Stool studies - Duval low residue diet - F/U appt made at time of discharge. - LIPASE BLD Malathi Skinner APRN.LEGAL INSTRUMENTS EXAMINER documented in this encounter [facility] 05-22-2022 Miscellaneous Notes Noted Susan with [facility] calling to let you know pt [facility] to 05/19/22 with Pneumonia. No call back needed. Tamia Suh LPN documented in this encounter [facility] 05-17-2022 History of Presen t illness Narrative This note was created using [employer]. Subjective Eliud Blount is a 61 year old male. HPI Patient presents with a chief complaint of cough, congestion, fever, shortness of breath. This is been worsening over the past 3 to 4 weeks. He was seen at the end of March and placed on doxycycline. He did finish that. The past week he has felt worse. He has a fever here, was not aware that he had a fever at home. He has felt nauseous, no vomiting. Feels a little dizzy. Has a history of a pneumonia with abscess of the right middle lobe lung. He is a smoker. Has COPD. Review of Systems Constitutional: Positive for chills, fatigue and fever. HENT: Positive for congestion. Negative for sore throat. Respiratory: Positive for cough, chest tightness and shortness of breath. Cardiovascular: Negative. Gastrointestinal: Negative. Musculoskeletal: Positive for back pain and myalgias. Neurological: Positive for dizziness and headaches. All other systems reviewed and are negative. 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 CERVICAL DISC DISPLACMNT 01/28/2007 Cervicalgia 07/29/2006 Chronic obstructive pulmonary disease (COPD) ([facility]) DEPRESSIVE DISORDER NEC 07/29/2006 Diabetes ([facility]) Headache(784.0) 07/29/2006 Hypertension Intracranial injury of other and unspecified nature, without mention of open intracranial wound, unspecified state of consciousness fell and hit his head in 2003 LATERAL EPICONDYLITIS 07/29/2006 bilateral Other and unspecified alcohol dependence, unspecified drinking behavior 02/16/2008 PERS HX TOBACCO USE 07/29/2006 Pneumonia 09/2016 hospitalized and on a ventilator RECUR UNILAT INGUIN CHANTEL 01/11/2008 Unspecified gastritis and gastroduodenitis without mention of hemorrhage 02/07/2009 Current Outpatient Medications Medication Sig Dispense Refill albuterol (PROVENTIL) 5 mg/mL nebu Inhale 0.5 mL as instructed every 4 hours while awake. 1 DOSE NOW - BACK OFFICE. PLACE 0.5 ML PER DROPPER AND 2.5 ML OF NORMAL SALINE INTO RESERVOIR. 20 mL 3 albuterol (PROVENTIL) 2.5 mg /3 mL (0.083 %) nebulizer solution Use 3 mL via nebulizer every 4 hours as needed for wheezing/shortness of breath. Use over 5-15minutes. 36 mL 3 xjkjuosxslh-smspbqtuf-bssqddff (TRELEGY ELLIPTA) 100-62.5-25 mcg Inhale 1 Puff as instructed once daily. 1 Each 5 OLANZapine (ZYPREXA) 15 mg tablet Take 15 mg by mouth daily at bedtime. sertraline (ZOLOFT) 50 mg tablet Take 1 tablet by mouth once daily. 30 tablet 0 levETIRAcetam (KEPPRA) 500 mg tablet twice daily. amitriptyline (ELAVIL) 100 mg tablet Take 1 tablet by mouth daily at bedtime. [address] (DEPAKOTE) 500 mg EC tablet Take 1 tablet by mouth twice daily. (Patient taking differently: Take 750 mg by mouth twice daily.) 60 tablet 1 gabapentin (NEURONTIN) 800 mg tablet 600 mg three times daily. from [facility] albuterol HFA (VENTOLIN HFA) 90 mcg/actuation inhaler Inhale 2 Puffs as instructed every 4 hours as needed for Wheezing/Shortness of Breath. 1 Inhaler 12 albuterol (PROVENTIL) 5 mg/mL nebu Inhale 0.5 mL as instructed one time only for 1 dose. 1 DOSE NOW - BACK OFFICE. PLACE 0.5 ML PER DROPPER AND 2.5 ML OF NORMAL SALINE INTO RESERVOIR. 1 mL 0 Rirsnun-Lvxdgmlvagcyf-Sdxqtwdp 250-250-65 mg per tablet Take 6 tablets by mouth every 6 hours as needed. azithromycin (ZITHROMAX) 250 mg tablet Take 2 tablets by mouth once daily for 1 day, THEN 1 tablet once daily for 4 days. 6 tablet 0 amoxicillin-clavulanic acid (AUGMENTIN) 875-125 mg per tablet Take 1 tablet by mouth twice daily for 7 days. 14 tablet 0 omeprazole (PRILOSEC) 40 mg capsule Take 1 capsule by mouth daily before breakfast. 1/2 hr before meal. (Patient not taking: Reported on 04/15/2022) 30 capsule 5 mupirocin (BACTROBAN) 2 % ointment Apply 1 application to affected area three times daily. (Patient not taking: Reported on 04/15/2022) 1 Tube 1 sildenafil (VIAGRA) 50 mg tablet Take 1 tablet by mouth as needed. (Patient not taking: Reported on 03/01/2021 ) 15 tablet 2 aspirin, enteric coated (ASPIRIN, ENTERIC COATED) 81 mg EC tablet Take 1 tablet by mouth once daily. (Patient not taking: Reported on 04/15/2022) multivitamin tablet Take 1 tablet by mouth once daily. (Patient not taking: Reported on 04/15/2022) No current facility-administered medications for this visit. PAST SURGICAL HISTORY Procedure Laterality Date COLONOSCOPY FLX DX W/COLLJ SPEC WHEN PFRMD normal EGD TRANSORAL BIOPSY SINGLE/MULTIPLE gastritis ESOPHAGOGASTRODUODENOSCOPY TRANSORAL DIAGNOSTIC 06/24/2017 EGD NEUROPLASTY &/TRANSPOSITION ULNAR NERVE ELBOW 1999 right PAST SURGICAL HISTORY OF 1991 left ankle surgery- removal of bone chip PAST SURGICAL HISTORY OF bilateral repair of tennis elbow RPR 1ST INGUN HRNA AGE 7 YRS/> REDUCIBLE 1991 Bilateral Hernia repair, inguinal - laparoscopic - Dr. Alanis RPR 1ST INGUN HRNA AGE 7 YRS/> REDUCIBLE 01/28/2008 Left Open repair RPR UMBILICAL HRNA 5 YRS/> REDUCIBLE simple FAMILY HISTORY Problem Relation Age of Onset Heart Father Alzheimer's Disease Father Diabetes Mother Hypertension Mother Social History Tobacco Use Smoking status: Every Day Packs/day: 0.50 Years: 28.00 Pack years: 14.00 Types: Cigarettes Smokeless tobacco: Never Tobacco comments: trying to quit smoke 10cigs daily Substance Use Topics Alcohol use: No Comment: Rarely Drug use: No Objective BP 128/76 Pulse 118 Temp (!) 38.5 C (101.3 F) Resp 21 Wt 65.1 kg (143 lb 9.6 oz) SpO2 94% BMI 22.49 kg/m Physical Exam Vitals reviewed. Constitutional: Appearance: Normal appearance. He is ill-appearing. HENT: Head: Normocephalic and atraumatic. Right Ear: Tympanic membrane, ear canal and external ear normal. Left Ear: Tympanic membrane, ear canal and external ear normal. Nose: Congestion present. Mouth/Throat: Mouth: Mucous membranes are moist. Pharynx: Oropharynx is clear. Cardiovascular: Rate and Rhythm: Regular rhythm. Tachycardia present. Heart sounds: Normal heart sounds. Pulmonary: Effort: Pulmonary effort is normal. Breath sounds: Normal breath sounds. Musculoskeletal: Cervical back: Neck supple. Skin: General: Skin is warm and dry. Findings: No rash. Neurological: Mental Status: He is alert. Assessment and Plan ASSESSMENT/PLAN: 1. Lingular pneumonia - ICD9: 486, ICD10: J18.9 Chest x-ray shows a lingular pneumonia. I will start him on Augmentin and Z-Lamine. Discussed if he feels worse or has any other significant symptoms needs to be seen in the ER. Otherwise follow-up with PCP in the next 1 to 2 weeks. Patient agreeable with plan. - ACETAMINOPHEN 500 MG TABLET - XR CHEST 2V FRONTAL/LAT Elida Ibarra PA-C documented in this encounter [facility] 05-17-2022 History of Presen t illness Narrative Radiology Service Progress Note PATIENT NAME: Eliud Blount DATE OF SERVICE: May 17, 2022 TIME: 11:50 AM PATIENT IDENTITY VERIFICATION COMPLETED USING TWO (2) IDENTIFIERS: Name and Date of confirmed by patient verbally. FALL SCREENING: Has the patient had 2 falls in the last year or 1 fall with injury or currently using an Ambulatory Assistive Device (Walker, Cane, Wheelchair, Crutches, etc.)? No PATIENT GENDER DATA: Male PATIENT RELEVANT IMPLANT DATA REVIEWED: Yes RADIOLOGY DEPARTMENT: General X-ray: Exam(s) Completed: Chest X-Ray PERIPHERAL IV DATA: Not applicable SIGNED BY: RT Hilario(R) May 17, 2022 11:50 AM documented in this encounter [facility] 04-16-2022 Miscellaneous Notes Patient given results and verbalized understanding of instructions given. Radha Toledo number not in service. Radha Toledo Unable to reach patient. Mailbox full/Mailbox not set up/ Number incorrect. Please try again later. Radha Toledo 2.5 mg/3 ml sent to pharmacy for albuterol nebulizer Please tell patient to check with pharmacy for new rx. Xochilt Cabrales APRN.[facility] state the rx for albuterol (PROVENTIL) 5 mg/mL is backordered. Wants to know if pre diluted product can be substituted. Please send new rx if possible. [phone] documented in this encounter [facility] 04-15-2022 Instructions Xochilt Cabrales APRN.CNP - 04/15/2022 11:20 AM EDT Nebulizer treatment every 4-6 hours prn Doxycycline as ordered * Prednisone 40 mg (2 tablets) per day for 5 days, take in morning or early in day * Do not NSAIDs during this 5 day course (ibuprofen, naproxen, Motrin, Aleve, Advil) Tylenol only during prednisone use * Follow up with primary care provider if no improvement with treatment * Seek medical care immediately, call 911, go to ER if you have chest pain, difficulty breathing, shortness of breath, inability to swallow. documented in this encounter [facility] 04-15-2022 History of Presen t illness Narrative Subjective The history is provided by the patient. No foreign language interpreter was used. HPI Eliud Blount is a 61 year old male who presents today for CC of cough, congestion, increased wheezing. He started a week ago with URI symptoms, but wheezing and cough have increased. He has used his prescribed inhalers and mucinex without relief. He has a h/o copd, every day smokes. BP 126/84 Pulse 100 Temp 36.6 C (97.9 F) Resp 20 Wt 65.7 kg (144 lb 12.8 oz) SpO2 93% BMI 22.68 kg/m Social History Tobacco Use Smoking status: Every Day Packs/day: 0.50 Years: 28.00 Pack years: 14.00 Types: Cigarettes Smokeless tobacco: Never Tobacco comments: trying to quit smoke 10cigs daily Substance Use Topics Alcohol use: No Comment: Rarely Drug use: No 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 CERVICAL DISC DISPLACMNT 01/28/2007 Cervicalgia 07/29/2006 Chronic obstructive pulmonary disease (COPD) (HCC) DEPRESSIVE DISORDER NEC 07/29/2006 Diabetes (HCC) Headache(784.0) 07/29/2006 Hypertension Intracranial injury of other and unspecified nature, without mention of open intracranial wound, unspecified state of consciousness fell and hit his head in 2003 LATERAL EPICONDYLITIS 07/29/2006 bilateral Other and unspecified alcohol dependence, unspecified drinking behavior 02/16/2008 PERS HX TOBACCO USE 07/29/2006 Pneumonia 09/2016 hospitalized and on a ventilator RECUR KEISHA WALKER 01/11/2008 Unspecified gastritis and gastroduodenitis without mention of hemorrhage 02/07/2009 I have confirmed and edited as necessary, the [facility] Review of Systems Constitutional: Negative for chills and fever. HENT: Positive for congestion and sinus pain. Negative for ear pain and sore throat. Respiratory: Positive for cough, shortness of breath and wheezing. Negative for sputum production. Cardiovascular: Negative for chest pain. Musculoskeletal: Negative for myalgias. Neurological: Negative for headaches. Objective Physical Exam Vitals and nursing note reviewed. Constitutional: Appearance: He is not toxic-appearing. HENT: Head: Normocephalic and atraumatic. Right Ear: Tympanic membrane, ear canal and external ear normal. Left Ear: Tympanic membrane, ear canal and external ear normal. Nose: No mucosal edema, congestion or rhinorrhea. Right Sinus: No maxillary sinus tenderness or frontal sinus tenderness. Left Sinus: No maxillary sinus tenderness or frontal sinus tenderness. Mouth/Throat: Pharynx: Uvula midline. No oropharyngeal exudate or posterior oropharyngeal erythema. Tonsils: No tonsillar abscesses. Cardiovascular: Rate and Rhythm: Normal rate and regular rhythm. Heart sounds: Normal heart sounds. Pulmonary: Effort: Pulmonary effort is normal. Breath sounds: Decreased breath sounds and wheezing present. No rhonchi or rales. Lymphadenopathy: Head: Right side of head: No submental, submandibular, tonsillar or preauricular adenopathy. Left side of head: No submental, submandibular, tonsillar or preauricular adenopathy. Cervical: No cervical adenopathy. Right cervical: No superficial cervical adenopathy. Left cervical: No superficial cervical adenopathy. Neurological: Mental Status: He is alert. ASSESSMENT/PLAN: 1. COPD with exacerbation (HCC) - ICD9: 491.21, ICD10: J44.1 (primary diagnosis) Prednisone burst Use nebulizers every 4-6 hours for wheezing Doxycyline as ordered 2. Sinobronchitis - ICD9: 473.9, 490, ICD10: J32.9, J40 - Will begin treatment with Doxycycline - Supportive care with plenty of fluids, rest, and analgesia prn. - Follow up in one week if symptoms persist or worsen. Diagnosis and treatment plan were discussed and questions were answered to the patient's satisfaction. Pt acknowledged understanding of concepts and follow up plan. Specific signs and symptoms that would indicate the need for higher level of care were discussed in detail warranting prompt ER evaluation. Xochilt Cabrales APRN.CNP documented in this encounter [facility] 03-21-2011 History of Past i llness Narrative Problem Noted Date Resolved Date TBI (traumatic brain injury) 03/21/201106/2014 Unspecified gastritis and ga stroduodenitis without mention of hemorrhage 02/07/2009 08/07/2010 Blood in stool 02/07/2009 08/07/2010 Umbilical hernia without mention of obstruction or gangrene 02/03/2009 08/07/2010 Follow-up examination, following unspecified juan carlos filemon 01/20/2008 08/07/2010 Inguinal hernia without ment ion of obstruction or gangrene, recurrent unilateral or unspecified 01/11/2008 08/07/2010 Inguinal hernia without ment ion of obstruction or gangrene, unilateral or unspecified, (not specified as recurrent) 12/27/2007 08/07/2010 Pain in limb 08/05/2007 08/07/2010 Other specified disorders of rotator cuff syndrome of shoulder and allied disorders 05/20/2007 08/07/2010 Brachial neuritis or radiculitis NOS 05/20/2007 08/07/2010 Disorders of bursae and tend ons in shoulder region, unspecified 01/01/2007 05/20/2007 Lateral epicondylitis of elbow 07/29/2006 0 08/07/2010 documented as of this encounter (statuses as of 03/01/2022) [facility] History of Past illness Narrative* Problem Noted Date Resolved Date TBI (traumatic brain injury) 03/21/201106/2014 Unspecified gastritis and ga stroduodenitis without mention of hemorrhage 02/07/2009 08/07/2010 Blood in stool 02/07/2009 08/07/2010 Umbilical hernia without mention of obstruction or gangrene 02/03/2009 08/07/2010 Follow-up examination, following unspecified juan carlos filemon 01/20/2008 08/07/2010 Inguinal hernia without ment ion of obstruction or gangrene, recurrent unilateral or unspecified 01/11/2008 08/07/2010 Inguinal hernia without ment ion of obstruction or gangrene, unilateral or unspecified, (not specified as recurrent) 12/27/2007 08/07/2010 Pain in limb 08/05/2007 08/07/2010 Other specified disorders of rotator cuff syndrome of shoulder and allied disorders 05/20/2007 08/07/2010 Brachial neuritis or radiculitis NOS 05/20/2007 08/07/2010 Disorders of bursae and tend ons in shoulder region, unspecified 01/01/2007 05/20/2007 Lateral epicondylitis of elbow 07/29/2006 0 08/07/2010 documented as of this encounter (statuses as of 04/15/2022) [facility] History of Past illness Narrative* Problem Noted Date Resolved Date TBI (traumatic brain injury) 03/21/201106/2014 Unspecified gastritis and ga stroduodenitis without mention of hemorrhage 02/07/2009 08/07/2010 Blood in stool 02/07/2009 08/07/2010 Umbilical hernia without mention of obstruction or gangrene 02/03/2009 08/07/2010 Follow-up examination, following unspecified juan carlos filemon 01/20/2008 08/07/2010 Inguinal hernia without ment ion of obstruction or gangrene, recurrent unilateral or unspecified 01/11/2008 08/07/2010 Inguinal hernia without ment ion of obstruction or gangrene, unilateral or unspecified, (not specified as recurrent) 12/27/2007 08/07/2010 Pain in limb 08/05/2007 08/07/2010 Other specified disorders of rotator cuff syndrome of shoulder and allied disorders 05/20/2007 08/07/2010 Brachial neuritis or radiculitis NOS 05/20/2007 08/07/2010 Disorders of bursae and tend ons in shoulder region, unspecified 01/01/2007 05/20/2007 Lateral epicondylitis of elbow 07/29/2006 0 08/07/2010 documented as of this encounter (statuses as of 04/16/2022) [facility] History of Past illness Narrative* Problem Noted Date Resolved Date TBI (traumatic brain injury) 03/21/201106/2014 Unspecified gastritis and ga stroduodenitis without mention of hemorrhage 02/07/2009 08/07/2010 Blood in stool 02/07/2009 08/07/2010 Umbilical hernia without mention of obstruction or gangrene 02/03/2009 08/07/2010 Follow-up examination, following unspecified juan carlos filemon 01/20/2008 08/07/2010 Inguinal hernia without ment ion of obstruction or gangrene, recurrent unilateral or unspecified 01/11/2008 08/07/2010 Inguinal hernia without ment ion of obstruction or gangrene, unilateral or unspecified, (not specified as recurrent) 12/27/2007 08/07/2010 Pain in limb 08/05/2007 08/07/2010 Other specified disorders of rotator cuff syndrome of shoulder and allied disorders 05/20/2007 08/07/2010 Brachial neuritis or radiculitis NOS 05/20/2007 08/07/2010 Disorders of bursae and tend ons in shoulder region, unspecified 01/01/2007 05/20/2007 Lateral epicondylitis of elbow 07/29/2006 0 08/07/2010 documented as of this encounter (statuses as of 05/17/2022) [facility] History of Past illness Narrative* Problem Noted Date Resolved Date TBI (traumatic brain injury) 03/21/201106/2014 Unspecified gastritis and ga stroduodenitis without mention of hemorrhage 02/07/2009 08/07/2010 Blood in stool 02/07/2009 08/07/2010 Umbilical hernia without mention of obstruction or gangrene 02/03/2009 08/07/2010 Follow-up examination, following unspecified juan carlos filemon 01/20/2008 08/07/2010 Inguinal hernia without ment ion of obstruction or gangrene, recurrent unilateral or unspecified 01/11/2008 08/07/2010 Inguinal hernia without ment ion of obstruction or gangrene, unilateral or unspecified, (not specified as recurrent) 12/27/2007 08/07/2010 Pain in limb 08/05/2007 08/07/2010 Other specified disorders of rotator cuff syndrome of shoulder and allied disorders 05/20/2007 08/07/2010 Brachial neuritis or radiculitis NOS 05/20/2007 08/07/2010 Disorders of bursae and tend ons in shoulder region, unspecified 01/01/2007 05/20/2007 Lateral epicondylitis of elbow 07/29/2006 0 08/07/2010 documented as of this encounter (statuses as of 05/22/2022) [facility] History of Past illness Narrative* Problem Noted Date Diagnosed Date Resolved Date TBI (traumatic brain injury) 03/21/2011 02/14/2015 Unspecified gastritis and ga stroduodenitis without mention of hemorrhage 02/07/2009 08/07/2010 Blood in stool 02/07/2009 08/07/2010 Umbilical hernia without men tion of obstruction or gangrene 02/03/2009 08/07/2010 Follow-up examination, follo wing unspecified surgery 01/20/2008 08/07/2010 Inguinal hernia without ment ion of obstruction or gangrene, recurrent unilateral or unspecified 01/11/2008 08/07/2010 Inguinal hernia without ment ion of obstruction or gangrene, unilateral or unspecified, (not specified as recurrent) 12/27/2007 08/07/2010 Pain in limb 08/05/2007 08/07/2010 Other specified disorders of rotator cuff syndrome of shoulder and allied disorders 05/20/2007 08/07/2010 Brachial neuritis or radiculitis NOS 05/20/2007 08/07/2010 Disorders of bursae and tend ons in shoulder region, unspecified 01/01/2007 05/20/2007 Lateral epicondylitis of elbow 07/29/2006 08/07/2010 documented as of this encounter (statuses as of 03/05/2023) [facility] History of Past illness Narrative* Problem Noted Date Diagnosed Date Resolved Date TBI (traumatic brain injury) 03/21/2011 02/14/2015 Unspecified gastritis and ga stroduodenitis without mention of hemorrhage 02/07/2009 08/07/2010 Blood in stool 02/07/2009 08/07/2010 Umbilical hernia without men tion of obstruction or gangrene 02/03/2009 08/07/2010 Follow-up examination, follo wing unspecified surgery 01/20/2008 08/07/2010 Inguinal hernia without ment ion of obstruction or gangrene, recurrent unilateral or unspecified 01/11/2008 08/07/2010 Inguinal hernia without ment ion of obstruction or gangrene, unilateral or unspecified, (not specified as recurrent) 12/27/2007 08/07/2010 Pain in limb 08/05/2007 08/07/2010 Other specified disorders of rotator cuff syndrome of shoulder and allied disorders 05/20/2007 08/07/2010 Brachial neuritis or radiculitis NOS 05/20/2007 08/07/2010 Disorders of bursae and tend ons in shoulder region, unspecified 01/01/2007 05/20/2007 Lateral epicondylitis of elbow 07/29/2006 08/07/2010 documented as of this encounter (statuses as of 04/03/2023) [facility] History of Past illness Narrative* Problem Noted Date Diagnosed Date Resolved Date TBI (traumatic brain injury) 03/21/2011 02/14/2015 Unspecified gastritis and ga stroduodenitis without mention of hemorrhage 02/07/2009 08/07/2010 Blood in stool 02/07/2009 08/07/2010 Umbilical hernia without men tion of obstruction or gangrene 02/03/2009 08/07/2010 Follow-up examination, follo wing unspecified surgery 01/20/2008 08/07/2010 Inguinal hernia without ment ion of obstruction or gangrene, recurrent unilateral or unspecified 01/11/2008 08/07/2010 Inguinal hernia without ment ion of obstruction or gangrene, unilateral or unspecified, (not specified as recurrent) 12/27/2007 08/07/2010 Pain in limb 08/05/2007 08/07/2010 Other specified disorders of rotator cuff syndrome of shoulder and allied disorders 05/20/2007 08/07/2010 Brachial neuritis or radiculitis NOS 05/20/2007 08/07/2010 Disorders of bursae and tend ons in shoulder region, unspecified 01/01/2007 05/20/2007 Lateral epicondylitis of elbow 07/29/2006 08/07/2010 documented as of this encounter (statuses as of 04/09/2023) [facility] Diagnosis COPD with exacerbation (HCC)- Primary Obstructive chronic bronchitis with exacerbation Sinobronchitis Unspecified sinusitis (chronic) documented [facility] this [facility]* Diagnosis Lingular pneumonia- Primary Pneumonia, organism unspecified [facility]* Diagnosis Diarrhea, unspecified type- Primary Lower abdominal pain Abdominal pain, other specified site [facility]* Diagnosis Rhinosinusitis- Primary Unspecified sinusitis (chronic) [facility] Diagnosis Anxiety associated with depression- Primary Dysthymic disorder Psychosocial stressors Other psychological or physical stress, not elsewhere classified [facility]* Diagnosis Seizure (CMS/HCC)- Primary Other convulsions Migraine without aura and without status migrainosus, not intractable (CMS/HCC) [facility] Blood in stool- Primary Shortness of breath Rectal bleeding Hemorrhage of rectum and anus Malaise Other malaise and fatigue Unintentional weight loss Loss of weight Chronic obstructive pulmonary disease, unspecified COPD type (HCC) Seizure disorder (HCC) Unspecified epilepsy without mention of intractable epilepsy Shortness of breath [facility]* Diagnosis Chronic obstructive pulmonary disease, unspecified COPD type (HCC)- Primary Tobacco use disorder DDD (degenerative disc disease), cervical Degeneration of cervical intervertebral disc Muscle spasm Spasm of muscle Need for vaccination Need for prophylactic vaccination and inoculation against unspecified single disease Outbursts of anger Undersocialized conduct disorder, aggressive type, unspecified Tobacco abuse counseling Counseling on substance use and abuse Hyponatremia- Primary Hyposmolality and/or hyponatremia Abscess of middle lobe of right lung with pneumonia (HCC) Anxiety state Anxiety state, unspecified Tobacco use disorder Neck pain Cervicalgia Bacterial conjunctivitis- Primary Other conjunctivitis [facility] Diagnosis Chronic obstructive pulmonary disease, unspecified COPD type (HCC)- Primary Tobacco use disorder DDD (degenerative disc disease), cervical Degeneration of cervical intervertebral disc Muscle spasm Spasm of muscle Need for vaccination Need for prophylactic vaccination and inoculation against unspecified single disease Outbursts of anger Undersocialized conduct disorder, aggressive type, unspecified Tobacco abuse counseling Counseling on substance use and abuse Hyponatremia- Primary Hyposmolality and/or hyponatremia Abscess of middle lobe of right lung with pneumonia (HCC) Anxiety state Anxiety state, unspecified Tobacco use disorder Neck pain Cervicalgia Bacterial sinusitis- Primary Unspecified sinusitis (chronic) Weight loss Loss of weight COPD with exacerbation (HCC) Obstructive chronic bronchitis with exacerbation [facility]* Diagnosis Chronic obstructive pulmonary disease, unspecified COPD type (HCC)- Primary Tobacco use disorder DDD (degenerative disc disease), cervical Degeneration of cervical intervertebral disc Muscle spasm Spasm of muscle Need for vaccination Need for prophylactic vaccination and inoculation against unspecified single disease Outbursts of anger Undersocialized conduct disorder, aggressive type, unspecified Tobacco abuse counseling Counseling on substance use and abuse Hyponatremia- Primary Hyposmolality and/or hyponatremia Abscess of middle lobe of right lung with pneumonia (HCC) Anxiety state Anxiety state, unspecified Tobacco use disorder Neck pain Cervicalgia Shortness of breath [facility] Diagnosis Chronic obstructive pulmonary disease, unspecified COPD type (HCC)- Primary Tobacco use disorder DDD (degenerative disc disease), cervical Degeneration of cervical intervertebral disc Muscle spasm Spasm of muscle Need for vaccination Need for prophylactic vaccination and inoculation against unspecified single disease Outbursts of anger Undersocialized conduct disorder, aggressive type, unspecified Tobacco abuse counseling Counseling on substance use and abuse Hyponatremia- Primary Hyposmolality and/or hyponatremia Abscess of middle lobe of right lung with pneumonia (HCC) Anxiety state Anxiety state, unspecified Tobacco use disorder Neck pain Cervicalgia Medication management Encounter for long-term (current) use of other medications [facility]* Diagnosis Chronic obstructive pulmonary disease, unspecified COPD type (HCC)- Primary Tobacco use disorder DDD (degenerative disc disease), cervical Degeneration of cervical intervertebral disc Muscle spasm Spasm of muscle Need for vaccination Need for prophylactic vaccination and inoculation against unspecified single disease Outbursts of anger Undersocialized conduct disorder, aggressive type, unspecified Tobacco abuse counseling Counseling on substance use and abuse Hyponatremia- Primary Hyposmolality and/or hyponatremia Abscess of middle lobe of right lung with pneumonia (HCC) Anxiety state Anxiety state, unspecified Tobacco use disorder Neck pain Cervicalgia Fever, unspecified fever cause [facility] Diagnosis Chronic obstructive pulmonary disease, unspecified COPD type (HCC)- Primary Tobacco use disorder DDD (degenerative disc disease), cervical Degeneration of cervical intervertebral disc Muscle spasm Spasm of muscle Need for vaccination Need for prophylactic vaccination and inoculation against unspecified single disease Outbursts of anger Undersocialized conduct disorder, aggressive type, unspecified Tobacco abuse counseling Counseling on substance use and abuse Hyponatremia- Primary Hyposmolality and/or hyponatremia Abscess of middle lobe of right lung with pneumonia (HCC) Anxiety state Anxiety state, unspecified Tobacco use disorder Neck pain Cervicalgia Arm weakness- Primary Other musculoskeletal symptoms referable to limbs [facility]* Radha Lockwood, DISPENSARY ATTENDANT - 07/31/2023 10:30 AM EST CHIEF COMPLAINT: migraines HISTORY OF PRESENT ILLNESS: 62 year old male to follow up on migraines via telemedicine visit, verbal consent obtained. Last visit gbn increased. Improvement with migraines, tolerates gbn well. Going to schedule follow up with pcp to discuss increase stress d/t mother passing away and from significant other. Denies thoughts or feelings of self harm, nor has a plan. Denies further questions or concerns. Last visit 06/23/23 MW: 62 year old male to follow up on migraines and seizures via telemedicine visit, verbal consent obtained. Increase daily headaches for the past couple of months, Mother recently . Previously controlled with gbn, would like to increase back to 800 mg tid. Taking tylenol and ibuprofen daily for the past couple of months. Denies recent seizures, seizure like activity or nocturnal events, last known seizure 06/30/2019. Tolerates aeds well. Denies thoughts or feelings of self harm, nor has a plan. All questions and concerns addressed. Current Outpatient Medications on File Prior to Visit Medication Sig Dispense Refill albuterol HFA 90 mcg/act inhaler INHALE 2 (TWO) PUFFS EVERY 4 HOURS NEEDED SHORTNESS OF BREATH; ADMINISTER WITH SPACER amitriptyline (Elavil) 100 MG tablet TAKE 1 TABLET BY MOUTH EVERY NIGHT AT BEDTIME 90 tablet 11 divalproex (Depakote) 250 MG EC tablet Take 750 mg by mouth in the morning and 750 mg before bedtime. Do not crush, chew, or split. . gabapentin (Neurontin) 800 MG tablet Take 1 tablet (800 mg) by mouth in the morning and 1 tablet (800 mg) in the evening and 1 tablet (800 mg) before bedtime. 90 tablet 2 levETIRAcetam (Keppra) 500 MG tablet Take 1 tablet (500 mg) by mouth in the morning and 1 tablet (500 mg) before bedtime. 180 tablet 1 Multiple Vitamin (Multivitamin Adult) tablet as directed Orally OLANZapine (ZyPREXA) 15 MG tablet Take 15 mg by mouth at bedtime. omeprazole (PriLOSEC) [address] capsule Take 40 mg by mouth 1 (one) time each day at the same time. sertraline (Zoloft) 50 MG tablet Take 50 mg by mouth at bedtime. Trelegy Ellipta 200-62.5-25 MCG/ACT aerosol powder INHALE 1 (ONE) PUFF DAILY No current facility-administered medications on file prior to visit. Past Medical History: Diagnosis Date Anxiety COPD (chronic obstructive pulmonary disease) (CMS/HCC) Depression (CMS/HCC) Migraines (CMS/HCC) LACEY (obstructive sleep apnea) Seizures (CMS/[facility]) Past Surgical History: Procedure Laterality Date ANKLE SURGERY Left HERNIA REPAIR OTHER SURGICAL HISTORY tennis elbow Family History Problem Relation Name Age of Onset Diabetes Mother Diabetes Father Dementia Father Alzheimer's disease Father Social History Tobacco Use Smoking status: Every Day Types: Cigarettes Smokeless tobacco: Never Tobacco comments: Patient smokes 21-30 cigarettes/day [Moderate cigarette smoker] Thinking about quitting. Substance Use Topics Alcohol use: Never Comment: Caffeine: > 4 cups/day coffee ALLERGIES: Patient has no known allergies. REVIEW OF SYSTEMS: General: Appetite change: denies. Chills: denies. Fever: denies. Allergy/Immunology: Unusual rection to medications, food, animals or insects reaction: denies. Ophthalmologic: Visual acuity change: denies. ENT: Decreased hearing: denies. Endocrine: Weight loss: denies. Respiratory: Cough: denies. Wheezing: denies. Cardiovascular: Chest pain: denies. Palpitations: denies. Gastrointestinal: Abdominal pain: denies. Difficulty swallowing: denies Hematology: Bleeding problems: denies. Genitourinary: Painful urination: denies. Musculoskeletal: Joint pain: denies. Joint edema: denies. Skin: Rash: denies. Neurologic: Ataxia: denies, Tremor: denies. Psychiatric Suicidal thoughts: denies. Also see HPI for elements of ROS documented therein and for details of positive findings, which shall supersede the foregoing. OBJECTIVE: Objective There were no vitals filed for this visit. There is no height or weight on file to calculate BMI. Examination: General Exam: pleasant, well nourished, well developed, in no acute distress Eyes: extraocular movement intact (EOMI) upper eyelids normal , lower eyelids normal Neurologic: nonfocal, alert and oriented, cognitive exam grossly normal, cranial nerves 2-12 grossly intact - Exam limited d/t telemedicine Psych: pleasant, cooperative, good eye contact , speech clear , judgement and insight good ASSESSMENT/PLAN: 1. Seizure (CMS/HCC) Stable continue keppra 500 mg bid, depakote ec 750 mg bid Last known seizure 06/30/2019 06/19/2022 EEG: normal 2. Migraine without aura and without status migrainosus, not intractable (CMS/HCC) Improved, continue 800 mg tid, continue amitriptyline 100 mg at bedtime Increase activity/exercise, adequate fluid intake, adequate sleep, decrease stress - gabapentin (Neurontin) 800 MG tablet; Take 1 tablet (800 mg) by mouth in the morning and 1 tablet(800 mg) in the evening and 1 tablet (800 mg) before bedtime. Dispense: 270 tablet; Refill: 1 Pt has been fully educated on their diagnosis, treatment options, follow up plan, and return instructions. [facility] Medications Administered Section Inactive Administered Medications - up to 3 most recent administrations Medication Order MAR Action Action Date Dose Rate Site acetaminophen 1,000 mg tab(s) (TYLENOL) 1,000 mg, ORAL, ONCE, 1 dose, On Fri05/17/22 at 1200, If ordered PRN for pain, patient/guardian may elect to receive this medication for higher pain levels INSTEAD of the opioid, if preferred: Yes Given 05/17/2022 11:55 AM EST 1,000 mg Summary Purpose Family History No Family History Records FoundNo Family History Records Found Advance Directives No Advanced Directives Records FoundNo Advanced Directives Records Found Reason for Referral Specialty Diagnoses / Procedures Referred By Aditya valle Referred To Contact General Surgery Diagnoses Shortness of breath Blood in stool Rectal bleeding Unintentional weight loss Procedures CONSULT TO GENERAL SURGERY OFFICE/OUTPATIENT [facility] 60 MINUTES Alycia Arnold, STORE DETECTIVE.LEGAL INSTRUMENTS EXAMINER [address] [place] [address] Referral ID Status Reason Start Date Expiration Date Visits Requested Visits Authorized [id number] Authorized PCP Requested Referral 10/15/2023 10/14/2024 1 1 Additional Source Comments Source Comments (unrecognize d section and content) In the event this informatio n is protected by the Federal Confidentiality of Alcohol and Drug Abuse Patient Records regulations: The Federal rules restrict any use of the information to criminally investigate or prosecute any alcohol or drug abuse patient.[facility] the event this information is protected by the Federal Confidentiality of Alcohol and Drug Abuse Patient Records regulations: The Federal rules restrict any use of the information to criminally investigate or prosecute any alcohol or drug abuse patient.[facility] the event this information is protected by the Federal Confidentiality of Alcohol and Drug Abuse Patient Records regulations: The Federal rules restrict any use of the information to criminally investigate or prosecute any alcohol or drug abuse patient.[facility] the event this information is protected by the Federal Confidentiality of Alcohol and Drug Abuse Patient Records regulations: The Federal rules restrict any use of the information to criminally investigate or prosecute any alcohol or drug abuse patient.[facility] the event this information is protected by the Federal Confidentiality of Alcohol and Drug Abuse Patient Records regulations: The Federal rules restrict any use of the information to criminally investigate or prosecute any alcohol or drug abuse patient.[facility] the event this information is protected by the Federal Confidentiality of Alcohol and Drug Abuse Patient Records regulations: The Federal rules restrict any use of the information to criminally investigate or prosecute any alcohol or drug abuse patient.[facility] the event this information is protected by the Federal Confidentiality of Alcohol and Drug Abuse Patient Records regulations: The Federal rules restrict any use of the information to criminally investigate or prosecute any alcohol or drug abuse patient.[facility] the event this information is protected by the Federal Confidentiality of Alcohol and Drug Abuse Patient Records regulations: The Federal rules restrict any use of the information to criminally investigate or prosecute any alcohol or drug abuse patient.[facility] the event this information is protected by the Federal Confidentiality of Alcohol and Drug Abuse Patient Records regulations: The Federal rules restrict any use of the information to criminally investigate or prosecute any alcohol or drug abuse patient.[facility] the event this information is protected by the Federal Confidentiality of Alcohol and Drug Abuse Patient Records regulations: The Federal rules restrict any use of the information to criminally investigate or prosecute any alcohol or drug abuse patient.[facility] the event this information is protected by the Federal Confidentiality of Alcohol and Drug Abuse Patient Records regulations: The Federal rules restrict any use of the information to criminally investigate or prosecute any alcohol or drug abuse patient.[facility] the event this information is protected by the Federal Confidentiality of Alcohol and Drug Abuse Patient Records regulations: The Federal rules restrict any use of the information to criminally investigate or prosecute any alcohol or drug abuse patient.[facility] the event this information is protected by the Federal Confidentiality of Alcohol and Drug Abuse Patient Records regulations: The Federal rules restrict any use of the information to criminally investigate or prosecute any alcohol or drug abuse patient.[facility] the event this information is protected by the Federal Confidentiality of Alcohol and Drug Abuse Patient Records regulations: The Federal rules restrict any use of the information to criminally investigate or prosecute any alcohol or drug abuse patient.[facility] the event this information is protected by the Federal Confidentiality of Alcohol and Drug Abuse Patient Records regulations: The Federal rules restrict any use of the information to criminally investigate or prosecute any alcohol or drug abuse patient.[facility] the event this information is protected by the Federal Confidentiality of Alcohol and Drug Abuse Patient Records regulations: The Federal rules restrict any use of the information to criminally investigate or prosecute any alcohol or drug abuse patient.[facility] the event this information is protected by the Federal Confidentiality of Alcohol and Drug Abuse Patient Records regulations: The Federal rules restrict any use of the information to criminally investigate or prosecute any alcohol or drug abuse patient.[facility] the event this information is protected by the Federal Confidentiality of Alcohol and Drug Abuse Patient Records regulations: The Federal rules restrict any use of the information to criminally investigate or prosecute any alcohol or drug abuse patient.[facility] the event this information is protected by the Federal Confidentiality of Alcohol and Drug Abuse Patient Records regulations: The Federal rules restrict any use of the information to criminally investigate or prosecute any alcohol or drug abuse patient.[facility] Reason for Visit (unrecogniz ed section and content) Reason Comments Refill Request Reason Comments Cough SOB, chest congestio n, runny nose x1 week Reason Comments Rx backordered Reason Comments Cough Congestion, body ach es x 3 weeks Reason Comments Patient Update Pt was an inpt at [facility] Reason Comments Diarrhea Also sore throat, lo wer back pain, BM x 6 times a day watery, x 1 week Reason Comments Nasal Congestion Head congestion drai nage, fatigue, losing weight, anxiety, Reason Comments Follow Up anxiety issues was o n Zoloft in the past Reason Comments Clinical Update Reason Comments abdominal discomfort / rectal bleeding several months Reason Comments Rectal Problem Reason Comments Results Reason Comments Eye Problem Bilat eye redness, s tates he woke up to matted shut eyes x2 days swelling L is worse than Right Fatigue Body aches Reason Comments Cough Headache, chest timothy estion, nasal congestion, chest tightness, sore throat x 10 increased SOB and increasing sx x 1 [facility] Care Teams (unrecognized sec tion and content) Bisque Cleaner Relationship Specialty Start Date End Date Charan Arndt MD [address] [place] [address] PCP - General Internal Medicine 01/01/16 Lance Gillespie (Hist) Referring 09/07/16 Bisque Cleaner Relationship Specialty Start Date End Date Charan Arndt MD [address] [place] [address] PCP - General Internal Medicine 01/01/16 Lance Gillespie (Hist) Referring 09/07/16 Bisque Cleaner Relationship Specialty Start Date End Date Charan Arndt MD [address] [place] [address] PCP - General Internal Medicine 01/01/16 Lance Gillespie (Hist) Referring 09/07/16 Bisque Cleaner Relationship Specialty Start Date End Date Charan Arndt MD [address] [place] [address] PCP - General Internal Medicine 01/01/16 Lance Gillespie (Hist) [address] [place] [address] Referring 09/07/16 Bisque Cleaner Relationship Specialty Start Date End Date Charan Arndt MD [address] [place] [address] PCP - General Internal Medicine 01/01/16 Lance Gillespie (Hist) [address] [place] [address] Referring 09/07/16 Bisque Cleaner Relationship Specialty Start Date End Date Charan Arndt MD [address] [place] [address] PCP - General Internal Medicine 01/01/16 Lance Gillespie (Hist) [address] [place] [address] Referring 09/07/16 Bisque Cleaner Relationship Specialty Start Date End Date Charan Arndt MD [address] [place] [address] PCP - General Internal Medicine 01/01/16 Lance Gillespie (Hist) [address] [place] [address] Referring 09/07/16 Bisque Cleaner Relationship Specialty Start Date End Date Charan Arndt MD [address] [place] [address] PCP - General Internal Medicine 01/01/16 Lance Gillespie (Hist) [address] [place] [address] Referring 09/07/16 Bisque Cleaner Relationship Specialty Start Date End Date Charan Calhoun MD [address] [place] [address] PCP - General Pediatrics 12/12/22 Bisque Cleaner Relationship Specialty Start Date End Date Charan Arndt MD [address] [place] [address] PCP - General Internal Medicine 01/01/16 Lance Gillespie (Hist) [address] [place] [address] Referring 09/07/16 Bisque Cleaner Relationship Specialty Start Date End Date Charan Arndt MD [address] [place] [address] PCP - General Internal Medicine 01/01/16 Lance Gillespie (Hist) [address] [place] [address] Referring 09/07/16 Bisque Cleaner Relationship Specialty Start Date End Date Charan Arndt MD [address] [place] [address] PCP - General Internal Medicine 01/01/16 Lance Gillespie (Hist) [address] [place] [address] Referring 09/07/16 Bisque Cleaner Relationship Specialty Start Date End Date Charan Arndt MD [address] [place] [address] PCP - General Internal Medicine 01/01/16 Lance Gillespie (Hist) [address] [place] [address] Referring 09/07/16 Bisque Cleaner Relationship Specialty Start Date End Date Charan Arndt MD [address] [place] [address] PCP - General Internal Medicine 01/01/16 Lance Gillespie (Hist) [address] [place] [address] Referring 09/07/16 Bisque Cleaner Relationship Specialty Start Date End Date Charan Arndt MD [address] [place] [address] PCP - General Internal Medicine 01/01/16 Lance Gillespie (Hist) [address] [place] [address] Referring 09/07/16 Bisque Cleaner Relationship Specialty Start Date End Date Charan Arndt MD [address] [place] [address] PCP - General Internal Medicine 01/01/16 Lance Gillespie (Hist) [address] [place] [address] Referring 09/07/16 Bisque Cleaner Relationship Specialty Start Date End Date Charan Arndt MD [address] [place] [address] PCP - General Internal Medicine 01/01/16 Lance Gillespie (Hist) [address] [facility], [place] [address] Referring 09/07/16 Bisque Cleaner Relationship Specialty Start Date End Date Charan Arndt MD [address] [place] [place] [address] PCP - General Internal Medicine 01/01/16 Lance Gillespie (Hist) [address] [facility] [place] [address] Referring 09/07/16 (unrecognized sect ion and content) No Status Records FoundNo Status Records Found INFORMATION SOURCE (unrecogn ized section and content) DATE CREATED AUTHOR 08/02/2023 [facility] DATE CREATED AUTHOR [facility] 03/30/2024 [facility] FOR RECORDS PERTAINING TO PATIENTS WHO ARE OR HAVE BEEN ENROLLED IN A CHEMICAL DEPENDENCY/SUBSTANCEABUSE PROGRAM, SOME INFORMATION MAY BE OMITTED. This clinical summary was aggregated from multiple sources. Caution should be exercised in using it in the provision of clinical care. This summary normalizes information from multiple sources, and as a consequence, information in this document may materially change the coding, format and clinical context of patient data. In addition, data may be omitted in some cases. CLINICAL DECISIONS SHOULD BE BASED ON THE PRIMARY CLINICAL RECORDS. [facility] [employer] provides no warranty or guarantee of the accuracy or completeness of information in this document.
== END | disposition home or self-care (01) ==
LOC: SL 20:31
PROVIDERS: PCP Internal Medicine; Referring Provider Nurse Practitioner Acute Care; Visit Provider Nurse Practitioner Acute Care
DX: G47.33 Obstructive sleep apnea (adult) (pediatric) (principal)
CPT/HCPCS: 95811

== ENCOUNTER → 2024-04-29 | Outpatient (CLI) | payer MEDICARE, SELFPAY | END | disposition home or self-care (01) | LOC: SL 13:53 | PROVIDERS: PCP Internal Medicine; Visit Provider Nurse Practitioner Acute Care | DX: G47.33 Obstructive sleep apnea (adult) (pediatric) (principal); J96.11 Chronic respiratory failure with hypoxia; J44.9 Chronic obstructive pulmonary disease, unspecified; F17.210 Nicotine dependence, cigarettes, uncomplicated ==

== ENCOUNTER → 2024-06-23 | Outpatient (CLI) | payer MEDICARE, SELFPAY | END | disposition home or self-care (01) | PROVIDERS: PCP Internal Medicine; Referring Provider Nurse Practitioner Acute Care; Visit Provider Nurse Practitioner Acute Care | DX: J44.9 Chronic obstructive pulmonary disease, unspecified (principal) | CPT/HCPCS: 94060; 94726; 94729 ==

== ENCOUNTER → 2024-07-02 | Outpatient (CLI) | payer MEDICARE, MEDICAID, SELFPAY ==
--- NOTE | 2024-07-02 08:09 | CT_ITS ---
STUDY: LOW DOSE CT LUNG CANCER SCREENING REASON FOR EXAM: Male, 63 years old. Patient smokes half pack per day for 43 years. COPD. Shortness of breath. RADIATION DOSAGE (If Supplied By Facility): CTDIvol = ( 2.01 ) mGy, DLP = ( 75.25 ) mGycm TECHNIQUE: No contrast was administered. Low dose technique was utilized (average mAS-38 and kVp 120). 1.25 mm axial source images with a slice interval of 1.25-mm were reconstructed in lung windows. 2.5 mm axial source images with a slice interval of 2.5-mm were reconstructed in lung windows. 5.0 mm axial source images with a slice interval of 5.0-mm were reconstructed in soft tissue windows. COMPARISON: Comparison is made with prior study January 11, 2023. NODULES: No suspicious nodules are seen. Emphysema: Hyperinflation. Diffuse emphysematous changes with bullous formation worse in the upper lobes. Scarring in the upper lobes. This also evidence of scarring in the right middle lobe and right lower lobe. Endobronchial lesion: None Aorta: Atherosclerotic reformation of the aortic arch. CORONARY ARTERIES: Coronary artery calcification is seen. Heart: Unremarkable Pulmonary artery: Unremarkable Mediastinal nodes: Unremarkable Other chest and abdominal findings: CT/Low Dose CT Lung Screening IMPRESSION: Lung-RADS category 2 - Continue annual screening with LDCT in 12 months. IMPORTANT NOTES FOR USE: ACR Lung-RADS Version 1.1 Assessment Categories Release Date: 2018 Category: Coded 0-4 bases on nodule(s) with highest degree of suspicion. Negative screen is defined as categories 1 and 2; a positive screen is defined as categories 3 and 4. Category 3 and 4A nodules that are unchanged on interval CT should be coded as category 2, and individuals returned to screening in 12 months. Category 4X: Category 3 or 4 nodules with additional imaging findings that increase the suspicion of lung cancer, such as spiculation, GGN that doubles in size in 1 year, enlarged lymph notes, etc. Category Modifiers: S (significant finding unrelated to lung cancer) Electronically Signed: Bijan Oliveira MD at 15:00 EST ,
[2024-07-02 08:40] VITALS: PULSE 101; PULSE 106; PULSE 123; PULSE 145; PULSE 88; PULSE 89; PULSE 98; PULSE 99; O2SAT 88; O2SAT 90; O2SAT 92; O2SAT 93; O2SAT 95; O2SAT 96; O2SAT 98
--- NOTE | 2024-07-02 08:42 | CPS ---
Patient does not have oxygen at home, states he has a CPAP since April but has not been able to wear it consistently due to having a head and chest cold that he has not been able to get rid of. Patient stated he had a round of antibiotics about 3 weeks ago but has not felt any better. He walked 590 ft in the first 3 minutes with an SpO2 of 88% at the 3rd minute and a heart rate of 145. Stopped patient at this time to rest and placed on 2 lpm O2, SpO2 recovered to 98%, HR 95. Patient walked an additional 590 ft in the last 3 minutes of testing maintaining an SpO2 of 92%. Patient is very active and requested a portable and more convenient means for O2 on ambulation.
--- NOTE | 2024-07-05 10:28 | WT_ITS ---
PSN 6 Minute Walk Test 6 Minute Walk Test 6 Minute Walk Test: 6 Minute Walk Test PSN:6-Minute Walk Test Start: 07/02/24 08:40 Freq: Status: Active Protocol: [id number] Document 07/02/24 08:40 IVANNARON (Rec: 07/02/24 08:49 CLINTON [id number]) 6 Minute Walk Test Date Performed 07/02/24 Time Performed 08:30 Height 5 ft 8 in Weight: 120 lb Weight in Pounds 120.[address]: Tammy Stone EXPLORATION ENGINEER Assistive device used: None Pre-test Oxygen Delivery Method Room Air Pulse Ox (%) 96 Pulse Rate (60-100 beats/min) 88 Dyspnea Meron Scale (0-10) 1 Exertion Meron Scale (6-20) 6 1st minute Oxygen Delivery Method Room Air Pulse Ox (%) 93 Pulse Rate (60-100 beats/min) 101 H 2nd minute Oxygen Delivery Method Room Air Pulse Ox (%) 90 Pulse Rate (60-100 beats/min) 123 H 3rd minute Oxygen Delivery Method Room Air Pulse Ox (%) 88 Pulse Rate (60-100 beats/min) 145 H Dyspnea Meron Scale (0-10) 4 4th minute Oxygen Flow Rate (L/min) (L/min) 2 Oxygen Delivery Method Nasal Cannula Pulse Ox (%) 95 Pulse Rate (60-100 beats/min) 98 5th minute Oxygen Flow Rate (L/min) (L/min) 2 Oxygen Delivery Method Nasal Cannula Pulse Ox (%) 93 Pulse Rate (60-100 beats/min) 106 H 6th minute Oxygen Flow Rate (L/min) (L/min) 2 Oxygen Delivery Method Nasal Cannula Pulse Ox (%) 92 Pulse Rate (60-100 beats/min) 99 Dyspnea Meron Scale (0-10) 4 Exertion Meron Scale (6-20) 13 Post-test Oxygen Flow Rate (L/min) (L/min) 2 Oxygen Delivery Method Nasal Cannula Pulse Ox (%) 98 Pulse Rate (60-100 beats/min) 89 Full Laps Walked 20 Partial Lap, Number of Tiles Walked 0 Total Distance Walked (ft) 1180 07/02/24 08:42 Cardiopulmonary Services by Christie Casas Patient does not have oxygen at home, states he has a CPAP since April but has not been able to wear it consistently due to having a head and chest cold that he has not been able to get rid of. Patient stated he had a round of antibiotics about 3 weeks ago but has not felt any better. He walked 590 ft in the first 3 minutes with an SpO2 of 88% at the 3rd minute and a heart rate of 145. Stopped patient at this time to rest and placed on 2 lpm O2, SpO2 recovered to 98%, HR 95. Patient walked an additional 590 ft in the last 3 minutes of testing maintaining an SpO2 of 92%. Patient is very active and requested a portable and more convenient means for O2 on ambulation. Initialized on 07/02/24 08:42 - END OF NOTE Interpretation Interpretation: The patient ambulated 1180 feet over the course of 6 minutes beginning on room air without assistive devices. Pretesting oxygen saturation was noted to be 96% on room air. With ambulation, the niko oxygen saturation was 88%, requiring 2 L/min of supplemental oxygen to complete the remainder of the test. Recommendations Recommendations: 2 L/min of supplemental oxygen should be utilized with exertion.
== END | disposition home or self-care (01) ==
LOC: PSN 08:06
PROVIDERS: PCP Internal Medicine; Referring Provider Nurse Practitioner Acute Care; Visit Provider Nurse Practitioner Acute Care
DX: J44.9 Chronic obstructive pulmonary disease, unspecified (principal); F17.210 Nicotine dependence, cigarettes, uncomplicated
CPT/HCPCS: 71271; 94618

== ENCOUNTER → 2024-07-05 | Outpatient (CLI) | payer MEDICARE, MEDICAID, SELFPAY ==
--- NOTE | 2024-07-05 13:45 | MRI_ITS ---
STUDY: MRI CERVICAL SPINE WITHOUT CONTRAST REASON FOR EXAM: Male, 63 years old. pain TECHNIQUE: Standardized fat and water weighted pulse sequences were obtained in the sagittal and axial planes. COMPARISON: None FINDINGS: Normal foramen magnum and brainstem-cervical cord junction. Normal craniovertebral junction. Normal anterior atlantoaxial articulation. Normal odontoid process. Normal cervical lordosis. Normal vertebral bodies and posterior osseous elements. C2-3: Normal endplates. Normal disc height, signal and morphology. Normal central canal and intervertebral neural foramina. C3-4: Normal endplates. Normal disc height, signal and tiny central disc protrusion. Mild narrowing of the central canal. Normal intervertebral neural foramina. C4-5: Narrowed disc space and endplate spurring.. Normal central canal. Moderate left neural foraminal stenosis and more severe narrowing on the right secondary to bony hypertrophy C5-6: Normal endplates. Narrowed disc space and endplate spurring.. Normal central canal. Moderate left neural foraminal stenosis and more severe narrowing on the right secondary to bony hypertrophy C6-7: Normal endplates. Normal disc height, signal and minimal bulging disc osteophyte complex with tiny right foraminal disc/osteophyte protrusion. Normal central canal. Minor left neural foraminal stenosis and moderate to severe narrowing on the right secondary to disc and bony hypertrophy C7-T1: Normal endplates. Normal disc height, signal and minimal bulging of the disc with tiny right posterolateral. Normal central canal and intervertebral neural foramina. Normal cervical cord. Normal visualized soft tissue structures. MRI/Spine Cervical (Routine) IMPRESSION: No evidence for acute fracture or other significant bony pathology. Spondylosis and multilevel spinal stenosis secondary to disc disease and bony hypertrophy more severe on the right. Findings as above Electronically Signed: Jacky Real MD at 21:59 EST Reading Location ID and State: [facility] / [place] Tel , Service support ,
== END | disposition home or self-care (01) ==
LOC: MRI 10:40
PROVIDERS: PCP Internal Medicine; Referring Provider Orthopaedic Surgery Orthopaedic Surgery of the Spine; Visit Provider Orthopaedic Surgery Orthopaedic Surgery of the Spine
DX: M54.2 Cervicalgia (principal)
CPT/HCPCS: 72141

== ENCOUNTER 2024-08-27 14:21 | Observation (INO) | payer MEDICARE, SELFPAY ==
[2024-08-27] VITALS (12 sets, daily range): BP systolic 101–150; BP diastolic 54–94; PULSE 70–84; RESP 10–14; TEMP 36.3–36.6; O2SAT 91–100; BMI 18.7; BMI 18.2
--- NOTE | 2024-08-27 14:22 | CT_ITS ---
EXAM: STROKE BRAIN/HEAD WITHOUT CONT CLINICAL HISTORY: NEURO DEFICIT, ACUTE, STROKE SUSPECTED COMPARISON: Comparison is made with prior study dated March 29, 2024. TECHNIQUE: Multiple axial tomographic images were obtained without intravenous contrast administration. Coronal and sagittal reconstruction was obtained as well. 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 There is evidence of encephalomalacia at that site. No new bleed or acute stroke is seen. CT/STROKE Brain/Head without Cont IMPRESSION: No acute stroke is seen. Red Alert: No acute stroke is seen. The critical information above was relayed directly by me by telephone to Miguel Ángel Salcedo on 08/27/2024 at 2:36 pm with readback verification. Reading Location: [place] [address]
--- NOTE | 2024-08-27 14:22 | EKG12_ITS ---
Test Reason : UNRESPONSIVE Blood Pressure : */* mmHG Vent. Rate : 81 BPM Atrial Rate : 81 BPM P-R Int : 122 ms QRS Dur : 94 ms QT Int : 406 ms P-R-T Axes : 63 94 79 degrees QTcB Int : 471 ms Normal sinus rhythm Rightward axis Nonspecific T wave abnormality Prolonged QT Abnormal ECG Confirmed by ERIN ARBOLEDA, ESME ([id number]), online editor MEG MULLINS ([id number]) on 08/30/2024 10:56:43 AM Referred By: Confirmed By: ESME KHAN MD
--- NOTE | 2024-08-27 14:25 | CT_ITS ---
PROCEDURE: STROKE CTA HEAD AND NECK W/CON REASON FOR EXAM: NEURO DEFICIT, ACUTE, STROKE SUSPECTED TECHNIQUE: CTA imaging of the head and neck from the aortic arch to the skull vertex with intravenous contrast. 3D reconstructions. CONTRAST: 100 cc of Isovue-300. COMPARISON: Comparison is made with prior CT scan of the head done earlier in the day. FINDINGS: Aortic Arch: Normal size and branching pattern. No significant atherosclerotic plaque. Brachiocephalic and Subclavians: Unremarkable RIGHT Carotid: Right CCA: Unremarkable. Right ICA: Minimal plaque at the origin of the right internal carotid artery. Maximum stenosis (NASCET): <50% % Right ECA: Unremarkable. LEFT Carotid: Left CCA: Unremarkable. Left ICA: Unremarkable. Left ECA: Unremarkable. Vertebrals: Codominant. Arise from the subclavians. Both vertebrals form the basilar. RIGHT Vertebral: Unremarkable. LEFT Vertebral: Unremarkable. No intracranial aneurysms or large vascular malformations are identified. Anterior cerebral arteries: Unremarkable. Middle cerebral arteries: Unremarkable. Basilar artery: Unremarkable. Posterior cerebral arteries: Unremarkable. Other major branches of the posterior circulation: Unremarkable. Major venous structures: Unremarkable. Other findings: No lymphadenopathy. Lung apices are clear. Bones are unremarkable. CT/STROKE CTA Head AND Neck W/Con IMPRESSION: RIGHT CAROTID: Minimal plaque at the origin of the right internal carotid arter y. LEFT CAROTID: Unremarkable VERTEBRALS: Unremarkable INTRACRANIAL: Unremarkable One or more dose reduction techniques were used (e.g., Automated exposure contr ol, adjustment of the mA and/or kV according to patient size, use of iterative reconstruction technique). Red Alert: The critical information above was relayed directly by me by telephone to Miguel Ángel Salcedo on 08/27/2024 at 2:50 pm with readback verification. Reading Location: [place] [address]
--- NOTE | 2024-08-27 14:46 | ED.RN ---
stated okay to cancel stroke alert at this time. [facility] neurology has not called back to talk to physician. aware that pt is only responding to painful stimuli. family states ETOH use and possible meth. made aware.
[2024-08-27 14:47] LABS: Base Excess 7 mmol/L (-2 to +2); Bicarbonate 31.9 mmol/L (22-26); Blood Gas Specimen Type ART; Mode Not entered; O2 Delivery Device Room Air; PO2 65 mmHG (75-100); SITE L Brach; SO2 91 % (95-99); Total Carbon Dioxide 34 mmol/L; pCO2 53.7 mmHg (35-45); pH 7.38 (7.35-7.45)
[2024-08-27 14:55] LABS: International Normalized Ratio 1.1; Prothrombin Time (Protime)PT. 13.9 SECONDS (11.7-14.9)
--- NOTE | 2024-08-27 14:55 | RAD_ITS ---
PROCEDURE: CHEST 1 VIEW 08/27/2024 REASON FOR EXAM: NEURO DEFICIT, ACUTE, STROKE SUSPECTED TECHNIQUE: Frontal view of the chest. COMPARISON: Comparison is made with prior study dated March 28, 2024. FINDINGS: EKG electrodes are seen. Hyperinflation and COPD. Stable increased markings at the lung apices suggestive of scarring. Stable blunting of the right costophrenic angle. Tortuosity of the descending thoracic aorta. RAD/Chest 1 View IMPRESSION: Stable examination. Reading Location: [place] [address]
[2024-08-27 14:56] LABS: Partial Thromboplast Time 31.6 Seconds (24.1-36.2)
[2024-08-27 14:57] LABS: Absolute Lymphocyte Count 1.99 X10^3/uL (0.83-4.51); Basophil# 0.04 X10^3/uL; Basophil% 0.9 % (0-1); Eosinophils% 2.2 % (0-5); Hematocrit 40.2 % (40-54); Hemoglobin 13.2 g/dL (13.0-16.5); Lymphocyte # 1.99 X10^3/ul (0.83-4.51); Lymphocyte % 43.8 % (19-41); Mean Corp Hgb Conc 32.8 g/dL (32-36); Mean Corpuscular Hgb 30.1 pg (27.0-32.0); Mean Corpuscular Volume 91.8 fL (80-94); Monocyte# 0.44 X10^3/uL; Monocyte% 9.7 % (0-10); NRBC Flagged by Analyzer 0 % (0-5); Neutrophil # 1.96 X10^3/uL (2.7-7.7); Neutrophil % 43.2 % (47-70); Platelet Count 262 K/mm3 (150-450); RBC Distribution Width CV 13.1 % (11.6-14.6); Red Blood Count 4.38 M/mm3 (4.6-6.2); White Blood Count 4.5 K/mm3 (4.4-11.0)
--- NOTE | 2024-08-27 15:33 | CHAPLAIN ---
Type of Pastoral Visit ___ Initial Visit ___ Follow-up Visit ___ On-call Visit ___ General Patient Visit ___ Spiritual Assessment ___ Family Conference ___ Bereavement _x__ Rapid Response ___ Code Blue ___ Other (describe below) Pastoral Care Referral From ___ Patient ___ Family ___ Nurse ___ Physician _x__ Truck Trailer Mechanic ___ Cost Control Supervisor ___ Other (describe below) Sacrament/Intervention _x__ Active listening ___ Anointing ___ Sabianism ___ Bereavement ___ Communion ___ Lashae exploration ___ ___ Life review _x__ Prayer ___ Reconciliation ___ Sacrament of Sick _x__ Supportive presence ___ Wedding ___ Other (describe below) Pastoral Comments stroke 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
--- NOTE | 2024-08-27 15:44 | EDS_ITS ---
HPI History of Present Illness Chief Complaint: Unresponsive Narrative Narrative: 63-year-old male past medical history of COPD, presents with decreased mental status. History and physical is unobtainable from patient secondary to current mental have an hour prior to arrival, he had butted his dog. He had been feeling weak and lightheaded, and fell again and hit his head against a radiator. He was awake, alert and talking intermittently for EMS, but they noticed aphasia and decline in his mental status and route. They called prehospital stroke team because of his expressive aphasia and unresponsiveness. Blood sugar was checked and was normal. EMS did not notice any outward signs of trauma to his head. He does not take blood thinners. He presents as a prehospital stroke team. [facility] Medical History (Updated 08/27/24 @ 16:49 by Miguel Ángel Liao MD) Pneumonia Pneumonia Left ankle injury Bilateral tennis elbow Depression Sepsis LACEY (obstructive sleep apnea) Lung nodule Hoarseness Sleep-related breathing disorder Pneumonia Encephalopathy Acute respiratory failure COPD (chronic obstructive pulmonary disease) GERD (gastroesophageal reflux disease) Bipolar disorder Migraine Tobacco abuse Spinal stenosis Traumatic brain injury Home Medications ?Medication ?Instructions ?Recorded ?Last Taken ?Type levetiracetam 500 mg tablet 500 mg PO DAILY Check with primary 04/28/20 03/28/24 History doctor divalproex 250 mg tablet,delayed 750 mg PO BID 4 03/28/24 History release ibuprofen 200 mg tablet (Addaprin) 400 mg PO Q8H PRN p ain 03/28/24 03/28/24 History albuterol sulfate 2.5 mg/3 mL 2.5 mg (3 mL) inhalation Q4H PRN 04/15/24 Unknown Rx (0.083 %) solution for nebulization #120 vials fluticasone fur. 200 mcg-umeclid 1 inh inhalation MOO Y #60 ea 04/15/24 Unknown Rx 62.5 mcg-vilant 25 mcg inhalat.powder (Trelegy Ellipta) Disability Placard #1 ea 06/14/24 Unknown Rx fluticasone propionate 50 2 spray intranasal DAILY #16 grams 06/14/24 Unknown Rx mcg/actuation nasal spray,suspension albuterol sulfate 90 mcg/actuation 2 puff inhalation Q 4H PRN 07/27/24 Unknown Rx aerosol inhaler shortness of breath or wheez ing #8.5 grams amitriptyline 100 mg tablet 100 mg PO QHS PRN sleep Unknown History ipratropium bromide 42 mcg (0.06 2 spray intranasal TI D #15 mL 07/27/24 Unknown Rx %) nasal spray gabapentin 800 mg tablet 800 mg PO TID 08/27/24 Unkno wn History guaifenesin 1,200 mg tablet, 1,200 mg PO Q12H PRN coug h 08/27/24 Unknown History extended release 12 hr Allergy/AdvReac Type Severity Reaction Status Date / Time dextromethorphan HBr (From AdvReac Intermediate tachycardia, Verified 08/27/24 14:30 NyQuil) feels anxious doxylamine (From NyQuil) AdvReac Intermediate Tachycardia, Verified 08/27/24 14:30 feels anxious pseudoephedrine HCl (From AdvReac Intermediate Tachycardia, Verified 08/27/24 14:30 NyQuil) feels anxious sertraline HCl (From Zoloft) AdvReac Diarrhea Verified 08/27/24 14:30 Family History Father Dementia Alzheimers disease Diabetes Mother Diabetes Surgical History History of hernia repair Social History Smoking Status: Heavy Smoker (>10/day) Tobacco: How many years used: 30 second hand exposure: Yes alcohol intake: never substance use type: does not use ROS ROS ED Review of Systems ROS Unobtainable: due to mental status EXAM Physical Exam Narrative Exam Narrative: Afebrile. Vital signs noted. Nontoxic-appearing. Barely opens his eyes to sternal rub. Cardiovascular examination regular rate and rhythm. Lungs are clear to auscultation bilaterally. No tachypnea. Abdomen soft and nontender. No noted pedal edema. Const Vital Signs: 08/27/24 14:22 08/27/24 14:27 08/27/24 14:34 Temperature Temperature Source Pulse Rate 84 Respiratory Rate 12 Respiratory Effort Normal Non-Labored Respiratory Pattern Normal Blood Pressure 119/79 115/54 L Blood Pressure Mean 92 74 Pulse Ox 92 Oxygen Delivery Method Room Air 08/27/24 14:37 08/27/24 15:15 08/27/24 15:48 Temperature 97.6 F L Temperature Source Oral Pulse Rate 82 76 73 Respiratory Rate 14 12 10 L Respiratory Effort Respiratory Pattern Blood Pressure 119/80 103/78 101/74 Blood Pressure Mean 93 86 83 Pulse Ox 93 92 92 Oxygen Delivery Method Room Air Room Air Room Air MDM MDM MDM Narrative Medical decision making narrative: Differential diagnosis includes but not limited to bilateral stroke versus intracranial hemorrhage versus concussive type symptoms versus drug intoxication versus CO2 retention. As he arrived as a prehospital stroke team, CT was obtained as well as CTA of the head and neck. I reviewed the radiology report and received a call from the radiologist regarding the CT of the brain which shows no acute intracranial hemorrhage. Review of the CTA shows no large vessel occlusion. With the thought of CO2 retention, ABG was obtained and interpreted by myself. pH is 7.38 with a pCO2 of 53.7 which is not excessively high and consistent with his COPD with a pO2 of 64.5. He is compensated. No I reviewed his CBC and he has normal white count of 4.5 with hemoglobin normal 13.2 with hematocrit 40.2, platelet count normal at 262. Coagulation studies are negative. BMP is grossly unremarkable with sodium normal 138 with potassium 3.6, chloride 100, BUN of 22 with creatinine 0.73. Glucose is appropriately elevated at 147 with a normal anion gap of 11. Ethyl alcohol is negative at less than 10 so I do not think she has alcohol intoxication. Initial high- sensitivity troponin is 23 which was obtained through stroke order labs. I think this is nonspecific. In discussion with the , patient only takes gabapentin and does not take opiates. He was given Narcan 2 mg which showed no change in his mental status. Initially during ABG draw, respiratory therapist does state that the patient did wake up. However Unger catheter had been inserted by RN and she states he did not flinch. I asked the patient's if he had striae of any liver failure and she said that he did not. With the thought of hepatic encephalopathy, I will obtain an ammonia level. While the urine for drugs of abuse is still pending, I am unsure as to the cause of this severe change in his mental status, and unresponsiveness. His pulse ox is 92% on room air which I think is acceptable given his history of COPD. As his stated that he had turned down being on a lung transplant list, I am hesitant to immediately intubate him as he may not be able to come off the ventilator. While the patient takes gabapentin, he does not take opiates. 2 mg of Narcan did not change his mental status. When I reviewed his prior problem list, does say seizure disorder, there is a small possibility that this could be prolonged postictal state. I discussed patient with the hospitalist, Dr. Duncan. He will be admitted to the PCU for his mental status change. I am unsure as to the cause of his unresponsive state/encephalopathy. I had reviewed his prior ammonia levels and they have only been as high as the 40s. He is not hypertensive. Once again there is no trauma to the head that I think he requires emergent transfer to a trauma center. She requested that TSH be added. Disposition is admit in stable condition. History & Record Review Discussion w/independent historian: Family Lab Data Attestation: I reviewed the patient's lab results. Labs: Laboratory Results - last 24 hr 08/27/24 14:10 WBC 4.5 RBC 4.38 L Hgb 13.2 Hct 40.2 MCV 91.8 MCH 30.1 MCHC 32.8 RDW Std Deviation 44.0 H RDW Coeff of Aaron 13.1 Plt Count 262 MPV 9.0 Immature Gran % (Auto) 0.200 Neut % (Auto) 43.2 L Lymph % (Auto) 43.8 H [place] % (Auto) 9.7 Eos % (Auto) 2.2 Baso % (Auto) 0.9 Absolute Neuts (auto) 2.0 Absolute Lymphs (auto) 1.99 Nucleated RBC % 0 PT 13.9 INR 1.1 APTT 31.6 Sodium 138 Potassium 3.6 Chloride 100 Carbon Dioxide 26.6 Anion Gap 11 BUN 22 H Creatinine 0.73 Estim Creat Clear Calc 84.17 Est GFR (MDRD) Non-Af 103 BUN/Creatinine Ratio 30.2 H Glucose 147 H Calcium 8.8 Troponin T High Sens 23 H Ethyl Alcohol < 10.1 ABG Data ABG results: ABG 08/27/24 14:43 Specimen Type ART Sample Site L Brach pH 7.38 Bicarbonate Actual 31.9 H Total CO2 34 Base Excess 7 H O2 Saturation 91 L ABG pCO2 53.7 H ABG pO2 65 L O2 Delivery Device Room Air Vent Mode Not entered Radiography Diagnostic Testing: Clinical Impression(s) from Imaging Studies Brain CT 08/27/24 14:22 IMPRESSION: No acute stroke is seen. Red Alert: No acute stroke is seen. The critical information above was relayed directly by me by telephone to Miguel Ángel Liao on 08/27/2024 at 2:36 pm with readback verification. Reading Location: [facility] Head/Neck CTA 08/27/24 14:25 IMPRESSION: RIGHT CAROTID: Minimal plaque at the origin of the right internal carotid artery. LEFT CAROTID: Unremarkable VERTEBRALS: Unremarkable INTRACRANIAL: Unremarkable One or more dose reduction techniques were used (e.g., Automated exposure control, adjustment of the mA and/or kV according to patient size, use of iterative reconstruction technique). Red Alert: The critical information above was relayed directly by me by telephone to Miguel Ángel Liao on 08/27/2024 at 2:50 pm with readback verification. Reading Location: [facility] Chest X-Ray 08/27/24 14:55 IMPRESSION: Stable examination. Reading Location: [facility] Management Discussion w/another healthcare provider: Hospitalist Discharge Plan Dx/Rx/DC Orders Clinical Impression: Unresponsive, COPD (chronic obstructive pulmonary disease), Mental status, decreased, Closed head injury Disposition Disposition: Acute Care Hospital [facility]
[2024-08-27] MEDS: Naloxone 2 MG/2 ML Syringe IV ×2 (15:48→17:41)
[2024-08-27 16:03] LABS: Alcohol, Blood (Medical)-Serum < 10.1 mg/dL (<=10.0)
[2024-08-27 16:04] LABS: Anion Gap 11 (5-15); BUN 22 mg/dL (4-19); BUN/Creat Ratio 30.2 RATIO (10-20); Calcium,Total 8.8 mg/dL (7.6-11.0); Carbon Dioxide 26.6 mmol/L (21.0-32.0); Chloride 100 mmol/L (98-108); Creatinine, Serum 0.73 mg/dL (0.70-1.20); EST Glomerular Filtration Rate 103 (>60); Estimated Creatinine Clearance 84.17 ml/min (50-250); Glucose 147 mg/dL (70-99); Potassium 3.6 mmol/L (3.3-5.1); Sodium Level 138 mmol/L (133-145); Troponin T High Sensitivity 23 ng/L (<=22)
--- NOTE | 2024-08-27 16:40 | HP.PCM.HOS_ITS ---
HPI - General General Date of Service: 08/27/24 HPI Narrative ELIUD BLOUNT, is a 63 M with a PMH as outlined who presents via the ED with a complaint of altered mental status. Pateient could not give much of a history. Per ED doctor, patient had apparently been feeling weak and lightheaded and fell and hit his head against a radiator. He had expressive aphasia and was lethargic. He head butted his dog, according to his son. He has a history of COPD and is on the lung transplant list at [facility]. He was brought in to the ED due to concern about a stroke. Vitals in the ED were BP oif 101/74, UT of 73, RR of 10 and oxygen sats of 92% on room air. CBC showed Hb of 13.2, wbc of 4.5 and platelets of 262. INR is 1.1. ABG showd pH of 7.38, pCO2 of 53.7 and pO2 of 65. CHemistry showed sodium of 138, potassium of 3.6 and bicarb of 26.6. Cr is 0.73. Initial troponin was 23 and blood sugar was 147. Urine tox was pending, though his did say he has been on methamphetamines. Serum alcohol level was <7. 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 CTA of the head and neck showed minimal plaque at the origin of the right internal carotid artery. He is being admitted to be managed for acute encephalopathy of unclear etiology. [facility] Medical History (Updated 08/27/24 @ 16:49 by Miguel Ángel Liao MD) Pneumonia Pneumonia Left ankle injury Bilateral tennis elbow Depression Sepsis LACEY (obstructive sleep apnea) Lung nodule Hoarseness Sleep-related breathing disorder Pneumonia Encephalopathy Acute respiratory failure COPD (chronic obstructive pulmonary disease) GERD (gastroesophageal reflux disease) Bipolar disorder Migraine Tobacco abuse Spinal stenosis Traumatic brain injury Home Medications ?Medication ?Instructions ?Recorded ?Last Taken ?Type levetiracetam 500 mg tablet 500 mg PO DAILY Check with primary 04/28/20 03/28/24 History doctor divalproex 250 mg tablet,delayed 750 mg PO BID 4 03/28/24 History release ibuprofen 200 mg tablet (Addaprin) 400 mg PO Q8H PRN p ain 03/28/24 03/28/24 History albuterol sulfate 2.5 mg/3 mL 2.5 mg (3 mL) inhalation Q4H PRN 04/15/24 Unknown Rx (0.083 %) solution for nebulization #120 vials fluticasone fur. 200 mcg-umeclid 1 inh inhalation MOO Y #60 ea 04/15/24 Unknown Rx 62.5 mcg-vilant 25 mcg inhalat.powder (Trelegy Ellipta) Disability Placard #1 ea 06/14/24 Unknown Rx fluticasone propionate 50 2 spray intranasal DAILY #16 grams 06/14/24 Unknown Rx mcg/actuation nasal spray,suspension albuterol sulfate 90 mcg/actuation 2 puff inhalation Q 4H PRN 07/27/24 Unknown Rx aerosol inhaler shortness of breath or wheez ing #8.5 grams amitriptyline 100 mg tablet 100 mg PO QHS PRN sleep Unknown History ipratropium bromide 42 mcg (0.06 2 spray intranasal TI D #15 mL 07/27/24 Unknown Rx %) nasal spray gabapentin 800 mg tablet 800 mg PO TID 08/27/24 Unkno wn History guaifenesin 1,200 mg tablet, 1,200 mg PO Q12H PRN coug h 08/27/24 Unknown History extended release 12 hr Allergy/AdvReac Type Severity Reaction Status Date / Time dextromethorphan HBr (From AdvReac Intermediate tachycardia, Verified 08/27/24 14:30 NyQuil) feels anxious doxylamine (From NyQuil) AdvReac Intermediate Tachycardia, Verified 08/27/24 14:30 feels anxious pseudoephedrine HCl (From AdvReac Intermediate Tachycardia, Verified 08/27/24 14:30 NyQuil) feels anxious sertraline HCl (From Zoloft) AdvReac Diarrhea Verified 08/27/24 14:30 Family History Father Dementia Alzheimers disease Diabetes Mother Diabetes Surgical History History of hernia repair Social History Smoking Status: Heavy Smoker (>10/day) Tobacco: How many years used: 30 second hand exposure: Yes alcohol intake: never substance use type: does not use ROS ROS Narrative unable to do review of systems due to confusion. Review of Systems ROS Unobtainable: due to encephalopathy Vital Signs Vital Signs Vital Signs: 08/27/24 14:22 08/27/24 14:27 08/27/24 14:34 Temperature Temperature Source Pulse Rate 84 Respiratory Rate 12 Respiratory Effort Normal Non-Labored Respiratory Pattern Normal Blood Pressure 119/79 115/54 L Blood Pressure Mean 92 74 Pulse Ox 92 Oxygen Delivery Method Room Air 08/27/24 14:37 08/27/24 15:15 08/27/24 15:48 Temperature 97.6 F L Temperature Source Oral Pulse Rate 82 76 73 Respiratory Rate 14 12 10 L Respiratory Effort Respiratory Pattern Blood Pressure 119/80 103/78 101/74 Blood Pressure Mean 93 86 83 Pulse Ox 93 92 92 Oxygen Delivery Method Room Air Room Air Room Air Weight Weight: 123 lb 7.342 oz Body Mass Index (BMI) 18.7 Physical Exam Const Constitutional Narrative: patient very lethargic, minimally responsive. Orientation / Consciousness: lethargic HEENT normocephalic, head/scalp atraumatic and oropharynx normal Eyes PERRL, EOMs intact bilaterally and conjunctivae normal Neck no lymphadenopathy and supple Resp Resp Narrative: mildly diminished breath sounds bibasally, no wheezes or crackles. On room air. Respiratory rate of 9 during my review Cardio regular rate, regular rhythm, S1 normal heart sound, S2 normal heart sound and no murmurs GI normal to inspection, nondistended, normoactive bowel sounds, soft to palpation, non-tender and non-distended Extremity normal to inspection, full ROM and no clubbing, cyanosis or edema Neuro Neuro Narrative: lethargic, very somnolent. pupils pinpoint and minimally responsive to light. Minimal response to sternal rub or pressure on nail bed Results Lab / Micro Data 08/27/24 14:10 08/27/24 14:10 Labs: Laboratory Results - last 24 hr 08/27/24 14:10: WBC 4.5, RBC 4.38 L, Hgb 13.2, Hct 40.2, MCV 91.8, MCH 30.1, MCHC 32.8, RDW Std Deviation 44.0 H, RDW Coeff of Aaron 13.1, Plt Count 262, MPV 9.0, Immature Gran % (Auto) 0.200, Neut % (Auto) 43.2 L, Lymph % (Auto) 43.8 H, [place] % (Auto) 9.7, Eos % (Auto) 2.2, Baso % (Auto) 0.9, Absolute Neuts (auto) 2.0, Absolute Lymphs (auto) 1.99, Nucleated RBC % 0, PT 13.9, INR 1.1, APTT 31.6, Sodium 138, Potassium 3.6, Chloride 100, Carbon Dioxide 26.6, Anion Gap 11, BUN 22 H, Creatinine 0.73, Estim Creat Clear Calc 84.17, Est GFR (MDRD) Non- Af 103, BUN/Creatinine Ratio 30.2 H, Glucose 147 H, Calcium 8.8, Troponin T High Sens 23 H, Ethyl Alcohol < 10.1 ABG Data ABG results: ABG 08/27/24 14:43 Specimen Type ART Sample Site L Brach pH 7.38 Bicarbonate Actual 31.9 H Total CO2 34 Base Excess 7 H O2 Saturation 91 L ABG pCO2 53.7 H ABG pO2 65 L O2 Delivery Device Room Air Vent Mode Not entered Imaging Radiology Impression Brain CT 08/27/24 14:22 IMPRESSION: No acute stroke is seen. Red Alert: No acute stroke is seen. The critical information above was relayed directly by me by telephone to Miguel Ángel Liao on 08/27/2024 at 2:36 pm with readback verification. Reading Location: [facility] Head/Neck CTA 08/27/24 14:25 IMPRESSION: RIGHT CAROTID: Minimal plaque at the origin of the right internal carotid artery. LEFT CAROTID: Unremarkable VERTEBRALS: Unremarkable INTRACRANIAL: Unremarkable One or more dose reduction techniques were used (e.g., Automated exposure control, adjustment of the mA and/or kV according to patient size, use of iterative reconstruction technique). Red Alert: The critical information above was relayed directly by me by telephone to Miguel Ángel Liao on 08/27/2024 at 2:50 pm with readback verification. Reading Location: [facility] Chest X-Ray 08/27/24 14:55 IMPRESSION: Stable examination. Reading Location: [facility] Assessment & Plan Assessment/Plan (1) Mental status, decreased: (2) Unresponsive: PLAN: Plan #Acute encephalopathy of unclear etiology * Admitted after he became confused at home and had butted his dog. He subsequently fell and hit his head against a radiator. * CT of the brain showed no acute intracranial pathology and only shows evidence of old stroke with encephalomalacia * Labs are essentially unremarkable. TSH ordered and pending. Urine tox also pending. Serum alcohol level is low. * with acute encephalopathy, pinpoint pupils and mild respiratory suppression, I am concerned about possible opioid overdose * Patient was given one dose of Narcan in the ED to no avail. According to his he apparently does take methamphetamines. * urine tox negative for opioids but presumptive positive for amphetamines. He is not having any features of amphetamine overdose such as tahyarrhythmia, hyperactivity, hypertension, hyperventilation or confusion. * With patient's lethargy and slow respiratory rate as well as pinpoint pupils, I am concerned about an opioid overdose. I am repeating the dose of Narcan and if he does not respond I will put him on a Narcan drip and admit him in the ICU. * CTA of the head and neck showed no hemodynamically significant stenosis. * Get EEG. Order MRI of the brain. Consult neurology. * ABG showed pH of 7.38, pCO2 of 53.7 ad pO2 of 65. * On Keppra. Hold gabapentin and any other neurotoxic meds. * Ammonia level is 38.6 * consult critical care * start on narcan drip if he does not respond to second dose of narcan in the ED. #Seizure disorder: On Keppra and divalproex. #Stage IV COPD * Apparently patient is on lung lung transplant list at [facility]. * Breathing treatments bronchodilators. Does not appear to be in exacerbation. Titrate oxygen to maintain saturation above 90%. * #History of depression and bipolar disorder: Hold antidepressant and bipolar medication as he is currently n.p.o. DVT prophylaxis: Lovenox CODE STATUS code patient presumptively made full code as he is confused unable to do CODE STATUS discussion. Charges/Coding Visit Charges Inpatient E&M: 15604 Init Hosp L3 Procedures Hospitalists Procedures: 74537 Advncd Care Plan 30 Min
[2024-08-27 17:11] LABS: Ammonia 38.6 umol/L (16-60)
[2024-08-27 17:12] LABS: Troponin T High Sens 2 HR 33 ng/L (<=22)
[2024-08-27 17:16] LABS: Amphetamine Urine PRESUMTIVE POSITIVE (<1000 ng/mL); Barbiturate Urine NEGATIVE (< 200 ng/mL); Benzodiazepine Urine NEGATIVE (< 200 ng/mL); Buprenorphine Urine NEGATIVE (< 200 ng/mL); Cocaine Urine NEGATIVE (< 300 ng/mL); Fentanyl, Urine NEGATIVE; Methadone Urine NEGATIVE (< 300 ng/mL); Opiates Urine NEGATIVE (< 300 ng/mL); Oxycodone, Urine NEGATIVE (< 100 ng/mL); PCP Urine NEGATIVE (< 25 ng/mL); THC Urine NEGATIVE (< 50 ng/mL)
--- NOTE | 2024-08-27 18:57 | CM.ED ---
Social Work Reason for intervention: Stroke Alert/Provide Support Stroke alert called for this patient. Arrived to patient's room, to find patient being cared for by nursing staff and appearing overall unresponsive with eyes closed and mouth open. Patient's Josefa, adult son Ashwin, and 17 year old son Arslan present in room. Arslan and Ashwni report to have been at home with patient when patient became unresponsive. Report patient head butted the family dog earlier in the day and fell. Sons called 911 for assist. During conversation family shared that patient was offered to be on lung transplant list, but patient declined this; report patient has COPD and right sided heart failure, along with history of seizure disorder. Family report patient's last known seizure as 3 months ago. shared patient has oxygen at home, but has not been using this recently. Sons report patient does drink alcohol, but denies daily use; not aware if patient was drinking today or not. Emotional support and supportive listening provided to the family, including water for the and youngest son. teary eyed intermittently and admitted current situation is hard, and that has been trying to be supportive of patient's decisions (such as not seeking lung transplant). and children expressed thanks for support. SW remains available should needs arise while in the ED, or if patient is admitted RN CM/SW team will also be available for support and discharge planning needs as indicated. -AB Mendiola
[2024-08-27 19:24] LABS: Troponin T High Sens 4 HR 18 ng/L (<=22)
--- NOTE | 2024-08-27 19:34 | ED.RN ---
called report to Ebony in ICU
--- NOTE | 2024-08-27 19:55 | MRI_ITS ---
PROCEDURE: TECHNIQUE: Multiplanar, multi-sequence MRI of brain was performed without and with IV contrast. FINDINGS: BRAIN/PARENCHYMA: No evidence of acute infarction or acute intracranial hemorrhage. There are subcortical and periventricular white matter FLAIR hyperintensities, likely related to chronic microvascular ischemic disease. Encephalomalacia and gliosis in right frontotemporal lobe. No abnormal post-contrast enhancement. EXTRA-AXIAL SPACES: No abnormal extra-axial fluid collections. Patent basal cisterns and foramen magnum. MIDLINE SHIFT: None. VENTRICLES: No hydrocephalus. SCALP SOFT TISSUES & CALVARIUM: No significant abnormality. VISUALIZED SINUSES & MASTOIDS: No air-fluid levels in the paranasal sinuses. The mastoid air cells are clear. ARTERIAL FLOW VOIDS: Preserved major arterial flow voids indicating gross patency. MRI/Brain W/WO Contrast IMPRESSION: 1. chronic microvascular ischemic disease. 2. Otherwise, unremarkable MRI of the brain without and with contrast. REASON FOR EXAM: No acute intracranial abnormality. Chronic microvascular ischemia and involutional changes. No suspicious intracranial mass, abnormal parenchymal or leptomeningeal enhance ment COMPARISON: None. [facility]
--- NOTE | 2024-08-27 21:49 | NURSING ---
Consult placed to [facility] -- will be seen tomorrow morning by Laxmi Oh.
[2024-08-28] VITALS (15 sets, daily range): BP systolic 137–178; BP diastolic 87–114; PULSE 66–95; RESP 10–16; TEMP 36.4–36.7; O2SAT 91–99; BMI 18.3
--- NOTE | 2024-08-28 00:53 | CON.PCM.CC_ITS ---
HPI Consult Data Date of Consult: 08/28/24 HPI Narrative HPI Narrative: Mr. Randall is a 63 year-old gentleman with COPD, chronic hypercapnic respiratory failure, methamphetamine abuse/dependence, and a prior TBI who presents with altered mental status. He was recently observed by his family to have gait instability, and he did have a fall, hitting his head on the radiator. Upon arrival to [place], his laboratory data revealed a slightly elevated Cr and a positive UDS for methamphetamines, and his imaging was unremarkable. He did undergo an MRI which was unremarkable. On my examination, he is easily awoken, and alert and oriented when awake. He currently denies any fevers, chills, nausea, vomiting, diarrhea, syncope, presyncope, visual changes, orthopnea, PND, odynophagia, dysphagia, chest pain, shortness of breath, belly pain, dysuria, hematuria, melena, hematochezia, or neurological changes. All other systems were reviewed and were negative. [facility] Medical History (Updated 08/27/24 @ 16:49 by Miguel Ángel Liao MD) Pneumonia Pneumonia Left ankle injury Bilateral tennis elbow Depression Sepsis LACEY (obstructive sleep apnea) Lung nodule Hoarseness Sleep-related breathing disorder Pneumonia Encephalopathy Acute respiratory failure COPD (chronic obstructive pulmonary disease) GERD (gastroesophageal reflux disease) Bipolar disorder Migraine Tobacco abuse Spinal stenosis Traumatic brain injury Home Medications ?Medication ?Instructions ?Recorded ?Last Taken ?Type levetiracetam 500 mg tablet 500 mg PO DAILY Check with primary 04/28/20 03/28/24 History doctor divalproex 250 mg tablet,delayed 750 mg PO BID 4 03/28/24 History release ibuprofen 200 mg tablet (Addaprin) 400 mg PO Q8H PRN p ain 03/28/24 03/28/24 History albuterol sulfate 2.5 mg/3 mL 2.5 mg (3 mL) inhalation Q4H PRN 04/15/24 Unknown Rx (0.083 %) solution for nebulization #120 vials fluticasone fur. 200 mcg-umeclid 1 inh inhalation MOO Y #60 ea 04/15/24 Unknown Rx 62.5 mcg-vilant 25 mcg inhalat.powder (Trelegy Ellipta) Disability Placard #1 ea 06/14/24 Unknown Rx fluticasone propionate 50 2 spray intranasal DAILY #16 grams 06/14/24 Unknown Rx mcg/actuation nasal spray,suspension albuterol sulfate 90 mcg/actuation 2 puff inhalation Q 4H PRN 07/27/24 Unknown Rx aerosol inhaler shortness of breath or wheez ing #8.5 grams amitriptyline 100 mg tablet 100 mg PO QHS PRN sleep Unknown History ipratropium bromide 42 mcg (0.06 2 spray intranasal TI D #15 mL 07/27/24 Unknown Rx %) nasal spray gabapentin 800 mg tablet 800 mg PO TID 08/27/24 Unkno wn History guaifenesin 1,200 mg tablet, 1,200 mg PO Q12H PRN coug h 08/27/24 Unknown History extended release 12 hr Allergy/AdvReac Type Severity Reaction Status Date / Time dextromethorphan HBr (From AdvReac Intermediate tachycardia, Verified 08/27/24 14:30 NyQuil) feels anxious doxylamine (From NyQuil) AdvReac Intermediate Tachycardia, Verified 08/27/24 14:30 feels anxious pseudoephedrine HCl (From AdvReac Intermediate Tachycardia, Verified 08/27/24 14:30 NyQuil) feels anxious sertraline HCl (From Zoloft) AdvReac Diarrhea Verified 08/27/24 14:30 Family History Father Dementia Alzheimers disease Diabetes Mother Diabetes Surgical History History of hernia repair Social History Smoking Status: Heavy Smoker (>10/day) Tobacco: How many years used: 30 second hand exposure: Yes alcohol intake: never substance use type: does not use ROS ROS Narrative As per HPI Objective Data Objective Data Vital Signs: Vital Signs Last response 3 Temperature 36.7 C 08/28/24 00:00 Temperature Source Temporal 08/28/24 00:00 Pulse Rate 66 08/28/24 00:00 Respiratory Rate 10 L 08/28/24 00:00 Respiratory Effort Normal, Non-Labored 08/28/24 00:00 Respiratory Depth Normal 08/28/24 00:00 Respiratory Pattern Normal 08/28/24 00:00 Blood Pressure 169/100 H 08/28/24 00:00 Blood Pressure Mean 123 08/28/24 00:00 Blood Pressure Source Monitor 08/28/24 00:00 Blood Pressure Position Semi-Fowlers 08/28/24 00:00 Blood Pressure Location Right Arm 08/28/24 00:00 Pulse Ox 99 08/28/24 00:00 Oxygen Delivery Method Nasal Cannula 08/28/24 00:00 Oxygen Flow Rate (L/min) 2 08/28/24 00:00 Fraction of Inspired Oxygen (FIO2) 99 08/28/24 00:00 I&O: I&O Last 24 Hours 3 08/27/24 08/27/24 08/28/24 11:59 23:59 11:59 Intake Total 0 / 0 Output Total 275 / 275 Balance -275 / -275 I&O: Total Stay 3 08/27/24 14:21 thru 08/27/24 23:50 Intake Total 0 Output Total 275 Balance -275 Current Meds Ordered / Administered: Current meds ordered / Administered 3 Generic Name Dose Route Start Last Admin Trade Name Freq PRN Reason Stop Dose Admin Albuterol Sulfate 2.5 mg 08/27/24 19:59 Albuterol 2.5 Mg/3 Ml Vial.Neb. INHALATION Q4H PRN shortness of breath or wheezing Albuterol/Ipratropium 3 ml 08/28/24 00:51 Ipratropium/Albuterol Sulfate 3 Ml Ampul.Neb INHALATION Q4H.RT PRN COUGH/CONGESTION Enoxaparin Sodium 40 mg 08/28/24 10:00 Enoxaparin 40 Mg/0.4 Ml Syringe SC DAILY TOMASA Sodium Chloride 100 mls @ 15 mls/hr 08/27/24 20:01 IV .Q6H40M PRN Saline Flush Sodium Chloride 100 mls @ 15 mls/hr 08/27/24 20:01 IV .Q6H40M PRN Additional IVPB Infusion Lactated Ringer's 1,000 mls @ 75 mls/hr 08/28/24 01:00 IV .[id number] TOMASA Iopamidol 0 ml 08/27/24 19:55 08/27/24 20:42 Contrast Allergy Safety Check IV Not Given X1 TOMASA Labetalol HCl 20 mg 08/27/24 14:22 Labetalol 20mg/4ml Syringe IV 08/28/24 14:22 X1 PRN Blood Pressure Sodium Chloride 10 - 40 ml 08/27/24 20:01 0.9% Saline Lock 10 Ml Syringe IV UD PRN SALINE FLUSH Physical Exam Narrative GENERAL: NAD; A/O x 4; no distress HEENT: PERRLA; EOMI; anicteric NECK: soft, supple, no RAYMON; no JVP; no TM CV: RRR; -m/r/g RESP: SLIGHT WHEEZING ABD: soft, NT, ND, ABS x 4 EXT: WWP; no C/C/E NEURO: /5 Motor and Sensory; CN II - XII Intact Lab / Micro Data 08/27/24 14:10 08/27/24 14:10 Labs: Laboratory Results - last 24 hr 08/27/24 14:10: WBC 4.5, RBC 4.38 L, Hgb 13.2, Hct 40.2, MCV 91.8, MCH 30.1, MCHC 32.8, RDW Std Deviation 44.0 H, RDW Coeff of Aaron 13.1, Plt Count 262, MPV 9.0, Immature Gran % (Auto) 0.200, Neut % (Auto) 43.2 L, Lymph % (Auto) 43.8 H, Lynn % (Auto) 9.7, Eos % (Auto) 2.2, Baso % (Auto) 0.9, Absolute Neuts (auto) 2.0, Absolute Lymphs (auto) 1.99, Nucleated RBC % 0, PT 13.9, INR 1.1, APTT 31.6, Sodium 138, Potassium 3.6, Chloride 100, Carbon Dioxide 26.6, Anion Gap 11, BUN 22 H, Creatinine 0.73, Estim Creat Clear Calc 84.17, Est GFR (MDRD) Non- Af 103, BUN/Creatinine Ratio 30.2 H, Glucose 147 H, Calcium 8.8, Troponin T High Sens 23 H, TSH 1.320, Ethyl Alcohol < 10.1 08/27/24 15:30: Urine Opiates Screen NEGATIVE, U Buprenorphine Qual NEGATIVE, Ur Oxycodone Screen NEGATIVE, Urine Methadone Screen NEGATIVE, Urine Fentanyl Screen NEGATIVE, Ur Barbiturates Screen NEGATIVE, Ur Phencyclidine Scrn NEGATIVE, Ur Amphetamines Screen PRESUMTIVE POSITIVE, U Benzodiazepines Scrn NEGATIVE, Urine Cocaine Screen NEGATIVE, U Cannabinoids Screen NEGATIVE 08/27/24 16:25: Troponin T Hi Sens 2 Hr 33 H 08/27/24 16:43: Ammonia 38.6 08/27/24 19:00: Troponin T Hi Sens 4Hr 18 ABG Data ABG results: ABG 08/27/24 14:43 Specimen Type ART Sample Site L Brach pH 7.38 Bicarbonate Actual 31.9 H Total CO2 34 Base Excess 7 H O2 Saturation 91 L ABG pCO2 53.7 H ABG pO2 65 L O2 Delivery Device Room Air Vent Mode Not entered Imaging Radiology Impression Brain CT 08/27/24 14:22 IMPRESSION: No acute stroke is seen. Red Alert: No acute stroke is seen. The critical information above was relayed directly by me by telephone to Miguel Ángel Liao on 08/27/2024 at 2:36 pm with readback verification. Reading Location: [facility] Head/Neck CTA 08/27/24 14:25 IMPRESSION: RIGHT CAROTID: Minimal plaque at the origin of the right internal carotid artery. LEFT CAROTID: Unremarkable VERTEBRALS: Unremarkable INTRACRANIAL: Unremarkable One or more dose reduction techniques were used (e.g., Automated exposure control, adjustment of the mA and/or kV according to patient size, use of iterative reconstruction technique). Red Alert: The critical information above was relayed directly by me by telephone to Miguel Ángel Liao on 08/27/2024 at 2:50 pm with readback verification. Reading Location: [facility] Chest X-Ray 08/27/24 14:55 IMPRESSION: Stable examination. Reading Location: [facility] Brain MRI 08/27/24 19:55 IMPRESSION: 1. chronic microvascular ischemic disease. 2. Otherwise, unremarkable MRI of the brain without and with contrast. REASON FOR EXAM: No acute intracranial abnormality. Chronic microvascular ischemia and involutional changes. No suspicious intracranial mass, abnormal parenchymal or leptomeningeal enhancement COMPARISON: None. Reading Location: [facility] Assessment and Plan . Assessment and plan: ASSESSMENT 1. Altered Mental Status 2. Methamphetamine Intoxication 3. Acute Kidney Injury 4. Chronic Obstructive Pulmonary Disease 5. Chronic Hypercapnic Respiratory Failure 6. Prior Traumatic Brain Injury 7. Methamphetamine Abuse/Dependence PLAN 1. Mental status markedly improved 2. CTA Head/Neck, CT head, MRI all unremarkable 3. Fluids 4. Duonebs 5. PT evaluation in AM Lovenox The entirety of this encounter was done via telemedicine with audio and visual. Consent was obtained for a telemedicine encounter. Krishan Calzada MD Pulmonary and Critical Care Medicine
[2024-08-28] MEDS: Albuterol 2.5 MG/3 ML VIAL.NEB. INHALATION (01:26)
[2024-08-28] MEDS: Lactated Ringers 1,000 ML 75 ML IV (02:07)
--- NOTE | 2024-08-28 08:21 | NEURO.CONS ---
Assessment and Plan: Neuro Assessment/Plan ELIUD BLOUNT is a 63 M with a past medical history of seizure on Keppra and depakote, stage IV COPD, tobacco use, stroke, being evaluated by Teleneurology for altered mental status. Possible syncope - reports he was dizzy/lightheaded prior to falling. CTH did not show any acute findings. UDS was positive for meth. MRI Brain was unremarkable. He is now at his baseline. confusion possibly related to mild concussion after hitting his head. Diagnosis: Syncope, concussion Plan: - Orthostatic vitals - if positive would treat with compression stockings and abdominal binder - PT assement - Neurology will sign off I personally attended this patient and spent a total time of 32 minutes evaluating this patient including clinical assessment, review of chart, medical history imaging, and determining appropriate treatment and workup. HPI Consult Data Date of Consult: 08/28/24 HPI Narrative HPI Narrative: ELIUD BLOUNT, is a 63 M with a past medical history of seizure on Keppra and depakote, stage IV COPD, tobacco and meth use, stroke, being evaluated by Teleneurology for altered mental status. Yesterday reportedly fell and hit his head on the radiator. Prior to his fall he felt lightheaded and dizzy. Afterwards he seemed confused and was brought to the ED. On arrival CTH showed remote infarcts of the right temporal lobe and parietal lobes, but no acute findings. CTA was without flow limited stenosis. His UDS was positive for meth. He now feels back to normal, no concerns for his thinking. [facility] Medical History Pneumonia Pneumonia Left ankle injury Bilateral tennis elbow Depression Sepsis LACEY (obstructive sleep apnea) Lung nodule Hoarseness Sleep-related breathing disorder Pneumonia Encephalopathy Acute respiratory failure COPD (chronic obstructive pulmonary disease) GERD (gastroesophageal reflux disease) Bipolar disorder Migraine Tobacco abuse Spinal stenosis Traumatic brain injury Home Medications ?Medication ?Instructions ?Recorded ?Last Taken ?Type levetiracetam 500 mg tablet 500 mg PO DAILY Check with primary 04/28/20 03/28/24 History doctor divalproex 250 mg tablet,delayed 750 mg PO BID 03/28/24 03/28/24 History release ibuprofen 200 mg tablet (Addaprin) 400 mg PO Q8H PRN pain 03/28/24 03/28/24 History albuterol sulfate 2.5 mg/3 mL 2.5 mg (3 mL) inhalation Q4H PRN 04/15/24 Unknown Rx (0.083 %) solution for nebulization #120 vials fluticasone fur. 200 mcg-umeclid 1 inh inhalation DAILY #60 ea 04/15/24 Unknown Rx 62.5 mcg-vilant 25 mcg inhalat.powder (Trelegy Ellipta) Disability Placard #1 ea 06/14/24 Unknown Rx fluticasone propionate 50 2 spray intranasal DAILY #16 grams 06/14/24 Unknown Rx mcg/actuation nasal spray,suspension albuterol sulfate 90 mcg/actuation 2 puff inhalation Q4H PRN 07/27/24 Unknown Rx aerosol inhaler shortness of breath or wheezing #8.5 grams amitriptyline 100 mg tablet 100 mg PO QHS PRN sleep 07/27/24 Unknown History ipratropium bromide 42 mcg (0.06 2 spray intranasal TID #15 mL 07/27/24 Unknown Rx %) nasal spray gabapentin 800 mg tablet 800 mg PO TID 08/27/24 Unknown History guaifenesin 1,200 mg tablet, 1,200 mg PO Q12H PRN cough 08/27/24 Unknown History extended release 12 hr Allergy/AdvReac Type Severity Reaction Status Date / Time dextromethorphan HBr (From AdvReac Intermediate tachycardia, Verified 08/27/24 14:30 NyQuil) feels anxious doxylamine (From NyQuil) AdvReac Intermediate Tachycardia, Verified 08/27/24 14:30 feels anxious pseudoephedrine HCl (From AdvReac Intermediate Tachycardia, Verified 08/27/24 14:30 NyQuil) feels anxious sertraline HCl (From Zoloft) AdvReac Diarrhea Verified 08/27/24 14:30 Family History Father Dementia Alzheimers disease Diabetes Mother Diabetes Surgical History History of hernia repair Social History Smoking Status: Heavy Smoker (>10/day) Tobacco: How many years used: 30 second hand exposure: Yes alcohol intake: never substance use type: does not use Vital Signs Vital Signs Vital Signs: 08/27/24 14:22 08/27/24 14:27 08/27/24 14:34 Temperature Temperature Source Pulse Rate 84 Pulse Strength Respiratory Rate 12 Respiratory Effort Normal Non-Labored Respiratory Depth Respiratory Pattern Normal Blood Pressure 119/79 115/54 L Blood Pressure Mean 92 74 Blood Pressure Source Blood Pressure Position Blood Pressure Location Pulse Ox 92 Oxygen Delivery Method Room Air Oxygen Flow Rate (L/min) Fraction of Inspired Oxygen (FIO2) 08/27/24 14:37 08/27/24 15:15 08/27/24 15:48 Temperature 97.6 F L Temperature Source Oral Pulse Rate 82 76 73 Pulse Strength Respiratory Rate 14 12 10 L Respiratory Effort Respiratory Depth Respiratory Pattern Blood Pressure 119/80 103/78 101/74 Blood Pressure Mean 93 86 83 Blood Pressure Source Blood Pressure Position Blood Pressure Location Pulse Ox 93 92 92 Oxygen Delivery Method Room Air Room Air Room Air Oxygen Flow Rate (L/min) Fraction of Inspired Oxygen (FIO2) 08/27/24 16:47 08/27/24 18:14 08/27/24 19:24 Temperature 97.4 F L Temperature Source Pulse Rate 75 72 80 Pulse Strength Respiratory Rate 12 14 12 Respiratory Effort Respiratory Depth Respiratory Pattern Blood Pressure 102/74 124/94 H 127/88 H Blood Pressure Mean 83 104 101 Blood Pressure Source Blood Pressure Position Blood Pressure Location Pulse Ox 92 92 91 Oxygen Delivery Method Room Air Room Air Oxygen Flow Rate (L/min) Fraction of Inspired Oxygen (FIO2) 08/27/24 19:57 08/27/24 20:00 08/27/24 21:00 Temperature 97.8 F Temperature Source Temporal Pulse Rate 70 82 Pulse Strength Respiratory Rate 12 12 Respiratory Effort Normal Non-Labored Respiratory Depth Normal Respiratory Pattern Normal Blood Pressure 140/93 H 136/79 H Blood Pressure Mean 108 98 Blood Pressure Source Monitor Monitor Blood Pressure Position Semi-Fowlers Semi-Fowlers Blood Pressure Location Right Arm Right Arm Pulse Ox 92 100 Oxygen Delivery Method Room Air Nasal Cannula Nasal Cannula Oxygen Flow Rate (L/min) 2 2 Fraction of Inspired Oxygen (FIO2) 99 08/27/24 22:00 08/27/24 23:00 08/28/24 00:00 Temperature 98.0 F Temperature Source Temporal Pulse Rate 75 71 66 Pulse Strength Respiratory Rate 10 L 10 L 10 L Respiratory Effort Respiratory Depth Respiratory Pattern Blood Pressure 150/77 H 132/72 H 169/100 H Blood Pressure Mean 101 92 123 Blood Pressure Source Monitor Monitor Monitor Blood Pressure Position Semi-Fowlers Semi-Fowlers Semi-Fowlers Blood Pressure Location Right Arm Right Arm Right Arm Pulse Ox 100 100 99 Oxygen Delivery Method Nasal Cannula Nasal Cannula Nasal Cannula Oxygen Flow Rate (L/min) 2 2 2 Fraction of Inspired Oxygen (FIO2) 08/28/24 00:00 08/28/24 01:00 08/28/24 01:26 Temperature Temperature Source Pulse Rate 66 78 Pulse Strength Respiratory Rate 10 L 16 Respiratory Effort Normal Non-Labored Respiratory Depth Normal Respiratory Pattern Normal Normal Blood Pressure 166/89 H Blood Pressure Mean 114 Blood Pressure Source Monitor Blood Pressure Position Semi-Fowlers Blood Pressure Location Right Arm Pulse Ox 98 Oxygen Delivery Method Nasal Cannula Nasal Cannula Oxygen Flow Rate (L/min) 2 2 Fraction of Inspired Oxygen (FIO2) 99 08/28/24 02:00 08/28/24 03:00 08/28/24 04:00 Temperature 97.7 F L Temperature Source Temporal Pulse Rate 74 76 66 Pulse Strength Respiratory Rate 12 10 L 11 L Respiratory Effort Respiratory Depth Respiratory Pattern Blood Pressure 152/98 H 162/98 H 158/98 H Blood Pressure Mean 116 119 118 Blood Pressure Source Monitor Monitor Monitor Blood Pressure Position Semi-Fowlers Semi-Fowlers Semi-Fowlers Blood Pressure Location Right Arm Right Arm Right Arm Pulse Ox 97 94 95 Oxygen Delivery Method Nasal Cannula Nasal Cannula Nasal Cannula Oxygen Flow Rate (L/min) 2 2 2 Fraction of Inspired Oxygen (FIO2) 08/28/24 04:00 08/28/24 05:00 08/28/24 06:00 Temperature Temperature Source Pulse Rate 84 86 Pulse Strength Respiratory Rate 12 15 Respiratory Effort Normal Non-Labored Respiratory Depth Normal Respiratory Pattern Normal Blood Pressure 167/104 H 161/99 H Blood Pressure Mean 125 119 Blood Pressure Source Monitor Monitor Blood Pressure Position Semi-Fowlers Semi-Fowlers Blood Pressure Location Right Arm Right Arm Pulse Ox 96 94 Oxygen Delivery Method Room Air Room Air Room Air Oxygen Flow Rate (L/min) Fraction of Inspired Oxygen (FIO2) 08/28/24 07:00 08/28/24 07:00 08/28/24 07:51 Temperature Temperature Source Pulse Rate 76 74 Pulse Strength Normal (2+) Respiratory Rate 16 Respiratory Effort Respiratory Depth Respiratory Pattern Blood Pressure 153/96 H Blood Pressure Mean 115 Blood Pressure Source Monitor Blood Pressure Position Semi-Fowlers Blood Pressure Location Right Arm Pulse Ox 97 Oxygen Delivery Method Room Air Oxygen Flow Rate (L/min) Fraction of Inspired Oxygen (FIO2) Weight Weight: 55.1 kg Body Mass Index (BMI) 18.3 EEG Results Procedure Details EEG Procedure Details: ELIUD BLOUNT is a 63 year old M with a past medical history of , who presents for evaluation of Electroencephalogram on DATE at TIME Physical Exam Neuro oriented x3 and CN's II-XII intact bilaterally Sensorium / Orientation: awake, alert, oriented to person, oriented to place and oriented to time Cranial Nerves: CN normal except as noted Coordination / Balance: [id number] test normal and [id number] test normal Speech: speech normal Gait (Neuro): normal gait Motor Exam: strength 5/5 throughout Lab / Micro Data 08/27/24 14:10 08/27/24 14:10 Labs: Laboratory Results - last 24 hr 08/27/24 14:10: WBC 4.5, RBC 4.38 L, Hgb 13.2, Hct 40.2, MCV 91.8, MCH 30.1, MCHC 32.8, RDW Std Deviation 44.0 H, RDW Coeff of Aaron 13.1, Plt Count 262, MPV 9.0, Immature Gran % (Auto) 0.200, Neut % (Auto) 43.2 L, Lymph % (Auto) 43.8 H, Caroline % (Auto) 9.7, Eos % (Auto) 2.2, Baso % (Auto) 0.9, Absolute Neuts (auto) 2.0, Absolute Lymphs (auto) 1.99, Nucleated RBC % 0, PT 13.9, INR 1.1, APTT 31.6, Sodium 138, Potassium 3.6, Chloride 100, Carbon Dioxide 26.6, Anion Gap 11, BUN 22 H, Creatinine 0.73, Estim Creat Clear Calc 84.17, Est GFR (MDRD) Non-Af 103, BUN/Creatinine Ratio 30.2 H, Glucose 147 H, Calcium 8.8, Troponin T High Sens 23 H, TSH 1.320, Ethyl Alcohol < 10.1 08/27/24 15:30: Urine Opiates Screen NEGATIVE, U Buprenorphine Qual NEGATIVE, Ur Oxycodone Screen NEGATIVE, Urine Methadone Screen NEGATIVE, Urine Fentanyl Screen NEGATIVE, Ur Barbiturates Screen NEGATIVE, Ur Phencyclidine Scrn NEGATIVE, Ur Amphetamines Screen PRESUMTIVE POSITIVE, U Benzodiazepines Scrn NEGATIVE, Urine Cocaine Screen NEGATIVE, U Cannabinoids Screen NEGATIVE 08/27/24 16:25: Troponin T Hi Sens 2 Hr 33 H 08/27/24 16:43: Ammonia 38.6 08/27/24 19:00: Troponin T Hi Sens 4Hr 18 ABG Data ABG results: ABG 08/27/24 14:43 Specimen Type ART Sample Site L Brach pH 7.38 Bicarbonate Actual 31.9 H Total CO2 34 Base Excess 7 H O2 Saturation 91 L ABG pCO2 53.7 H ABG pO2 65 L O2 Delivery Device Room Air Vent Mode Not entered Imaging Radiology Impression Brain CT 08/27/24 14:22 IMPRESSION: No acute stroke is seen. Red Alert: No acute stroke is seen. The critical information above was relayed directly by me by telephone to Miguel Ángel Liao on 08/27/2024 at 2:36 pm with readback verification. Reading Location: [facility] Head/Neck CTA 08/27/24 14:25 IMPRESSION: RIGHT CAROTID: Minimal plaque at the origin of the right internal carotid artery. LEFT CAROTID: Unremarkable VERTEBRALS: Unremarkable INTRACRANIAL: Unremarkable One or more dose reduction techniques were used (e.g., Automated exposure control, adjustment of the mA and/or kV according to patient size, use of iterative reconstruction technique). Red Alert: The critical information above was relayed directly by me by telephone to Miguel Ángel Liao on 08/27/2024 at 2:50 pm with readback verification. Reading Location: [facility] Chest X-Ray 08/27/24 14:55 IMPRESSION: Stable examination. Reading Location: [facility] Brain MRI 08/27/24 19:55 IMPRESSION: 1. chronic microvascular ischemic disease. 2. Otherwise, unremarkable MRI of the brain without and with contrast. REASON FOR EXAM: No acute intracranial abnormality. Chronic microvascular ischemia and involutional changes. No suspicious intracranial mass, abnormal parenchymal or leptomeningeal enhancement COMPARISON: None. Reading Location: [id number] Active Medications Active Medications Active Medications: Current Medications Generic Name Dose Route Start Last Admin Trade Name Freq PRN Reason Stop Dose Admin Albuterol Sulfate 2.5 mg 08/27/24 19:59 08/28/24 01:26 Albuterol 2.5 Mg/3 Ml Vial.Neb. INHALATION 2.5 mg Q4H PRN Administration shortness of breath or wheezing Albuterol/Ipratropium 3 ml 08/28/24 00:51 Ipratropium/Albuterol Sulfate 3 Ml Ampul.Neb INHALATION Q4H PRN PRN COUGH/CONGESTION Enoxaparin Sodium 40 mg 08/28/24 10:00 Enoxaparin 40 Mg/0.4 Ml Syringe SC DAILY TOMASA Sodium Chloride 100 mls @ 15 mls/hr 08/27/24 20:01 IV .Q6H40M PRN Saline Flush Sodium Chloride 100 mls @ 15 mls/hr 08/27/24 20:01 IV .Q6H40M PRN Additional IVPB Infusion Lactated Ringer's 1,000 mls @ 75 mls/hr 08/28/24 01:00 08/28/24 02:07 IV 75 mls/hr .[id number] TOMASA Administration Iopamidol 0 ml 08/27/24 19:55 08/27/24 20:42 Contrast Allergy Safety Check IV Not Given X1 TOMASA Labetalol HCl 20 mg 08/27/24 14:22 Labetalol 20mg/4ml Syringe IV 08/28/24 14:22 X1 PRN Blood Pressure Sodium Chloride 10 - 40 ml 08/27/24 20:01 0.9% Saline Lock 10 Ml Syringe IV UD PRN SALINE FLUSH
[2024-08-28] MEDS: Enoxaparin 40 MG/0.4 ML Syringe SC (09:59)
--- NOTE | 2024-08-28 11:42 | DCINST_ITS ---
Discharge Instructions Diet Discharge Diet: Low fat / Low cholesterol DC O2, CPAP, BIPAP needs Home O2 Discharge instructions: No Dressing / Incision Discharge Activity: Return to Normal Activity Weight Bearing Status: Weight bearing as tolerated Dressing / Incision Call your doctor if you observe: Fever of 101 or Higher, Shortness of breath, Dizziness, Swelling in the ankles and Chest pain Follow Up Care Test Results: Test results from this visit will be discussed in further detail at your follow- up appointment, if applicable. Discharge Plan Admission Admit Date/Time: 08/27/24 17:01 Primary Reason for Your Visit: acute encephalopathy Attending Provider: Hyun Duncan Primary Care Provider: Priscilla Nixon Consulting Providers: Jone Dudley; Jeffry Bo; Magdi Serrano; Rock Dick; Calvin Jasso; Sebastian Charles; Jamal Mina; Claudine Davis; Morris Disla; Fabien Boles; Jarek Rosas; Sirisha Lorenzo; Rosaura Mosley; Debbie Jimenez; Elsi,Krishan; Jermaine Valenzuela; Joe Crouch; Miguel Angel,; Erica Palacios; Kee Lagos; Mauricio Culp; Humberto Ashley; Roel Bermudez; Al Conner; Nael Grullon; Charissa Vickers; Maria M Triana; Swathi Pete; Crow Barrera; Pauline Lyons; Saqib Holcomb; Yusuf Tripp; Nehemias Martines; Sofia Smith; Jerome Pollack; Laxmi Oh; Flaco Hidalgo; Otto Gorman; Saturnino Calixto; Chiara Mccracken; Chandler Drake; Robyn Fontana; Kandi Ray Instructions Patient Instructions: ED Confusion Discharge Orders/Prescriptions Prescriptions: Continued fluticasone propionate 50 mcg/actuation spray,suspension 2 spray intranasal DAILY Qty: 16 3RF (DME) Disability Placard See Rx Instructions .ROUTE .MEDSUPPLY Qty: 1 0RF Rx Instructions: expires 06/14/2029 ipratropium bromide 42 mcg (0.06 %) spray,non-aerosol 2 spray intranasal TID Qty: 15 0RF Rx Instructions: administer into each nostril albuterol sulfate 90 mcg/actuation HFA aerosol inhaler 2 puff inhalation Q4H PRN (Reason: shortness of breath or wheezing) Qty: 8.5 11RF Rx Instructions: administer with spacer amitriptyline 100 mg tablet 100 mg PO QHS PRN (Reason: sleep) Patient Comments: TAKE 1 TABLET BY MOUTH EVERY DAY levetiracetam 500 MG tablet 500 mg PO DAILY divalproex 250 mg tablet,delayed release (DR/EC) 750 mg PO BID ibuprofen [Addaprin] 200 mg tablet 400 mg PO Q8H PRN (Reason: pain) gabapentin 800 mg tablet 800 mg PO TID guaifenesin 1,200 mg tablet extended release 12hr 1,200 mg PO Q12H PRN (Reason: cough) albuterol sulfate 2.5 mg /3 mL (0.083 %) solution for nebulization 2.5 mg inhalation Q4H PRN Qty: 120 4RF Rx Instructions: Use q4 hours and PRN for wheezing Trelegy Ellipta 200-62.5-25 mcg blister with device 1 inh inhalation DAILY Qty: 60 11RF Referrals / Follow Up: Priscilla Nixon MD [Primary Care Provider] - Within 1 Week Disposition Disposition (needs filled in before D/C Order can be placed): Home, Self Care
--- NOTE | 2024-08-28 11:42 | DS.PCM_ITS ---
Providers Date of Admission: 08/27/24 Date of Discharge: 08/28/24 Primary Care Physician: Dr. Priscilla Nixon MD Consultations 08/27/24 19:55 Consult: Television Analyzer / Pulmonary Medicine Routine Consulting Provider: Intensivists/Pulmonary Med Reason for Consult: acute encephalopathy, suspect opioid overdose EMERGENT Consult: No Notified: Yes Date Notified: 08/27/24 Time Notified: 21:50 Method of Notification: Verbal - Telephone Neurology [Consult: Tele-Neurology] Routine Consulting Provider: [facility] Reason for Consult: acute encephalopathy EMERGENT Consult: No Notified: Yes Date Notified: 08/27/24 Time Notified: 21:50 Method of Notification: Verbal - Telephone Method of Consult:: Telemedicine Nursing Unit Staff Notify [facility] of Tele-Neurology Consult: Yes Reason For Visit: ACUTE ENCEPHALOPATHY POSSIBLE OPOID OVERDOSE Diagnosis Discharge Diagnosis (1) Mental status, decreased: Status: Acute Code(s): R41.82 - Altered mental status, unspecified (2) Unresponsive: Status: Acute Code(s): R41.89 - Other symptoms and signs involving cognitive functions and awareness Plan #Acute encephalopathy of unclear etiology * Admitted after he became confused at home and had butted his dog. He subsequently fell and hit his head against a radiator. * CT of the brain showed no acute intracranial pathology and only shows evidence of old stroke with encephalomalacia * Labs are essentially unremarkable. TSH ordered and pending. Urine tox also pending. Serum alcohol level is low. * with acute encephalopathy, pinpoint pupils and mild respiratory suppression, I am concerned about possible opioid overdose * Patient was given one dose of Narcan in the ED to no avail. According to his he apparently does take methamphetamines. * urine tox negative for opioids but presumptive positive for amphetamines. He is not having any features of amphetamine overdose such as tahyarrhythmia, hyperactivity, hypertension, hyperventilation or confusion. * With patient's lethargy and slow respiratory rate as well as pinpoint pupils, I am concerned about an opioid overdose. I am repeating the dose of Narcan and if he does not respond I will put him on a Narcan drip and admit him in the ICU. * CTA of the head and neck showed no hemodynamically significant stenosis. * Get EEG. Order MRI of the brain. Consult neurology. * ABG showed pH of 7.38, pCO2 of 53.7 ad pO2 of 65. * On Keppra. Hold gabapentin and any other neurotoxic meds. * Ammonia level is 38.6 * consult critical care * start on narcan drip if he does not respond to second dose of narcan in the ED. #Seizure disorder: On Keppra and divalproex. #Stage IV COPD * Apparently patient is on lung lung transplant list at [facility]. * Breathing treatments bronchodilators. Does not appear to be in exacerbation. Titrate oxygen to maintain saturation above 90%. * #History of depression and bipolar disorder: Hold antidepressant and bipolar medication as he is currently n.p.o. DVT prophylaxis: Lovenox CODE STATUS code patient presumptively made full code as he is confused unable to do CODE STATUS discussion. Medications at Discharge Home Medications levetiracetam 500 mg tablet 500 mg PO DAILY Check with primary doctor 04/28/20 divalproex 250 mg tablet,delayed release 750 mg PO BID 03/28/24 ibuprofen 200 mg tablet (Addaprin) 400 mg PO Q8H PRN pain 03/28/24 albuterol sulfate 2.5 mg/3 mL (0.083 %) solution for nebulization 2.5 mg (3 mL) inhalation Q4H PRN #120 vials 04/15/24 fluticasone fur. 200 mcg-umeclid 62.5 mcg-vilant 25 mcg inhalat.powder (Trelegy Ellipta) 1 inh inhalation DAILY #60 ea 04/15/24 Disability Placard #1 ea 06/14/24 fluticasone propionate 50 mcg/actuation nasal spray,suspension 2 spray intranasal DAILY #16 grams 06/14/24 albuterol sulfate 90 mcg/actuation aerosol inhaler 2 puff inhalation Q4H PRN shortness of breath or wheezing #8.5 grams 07/27/24 amitriptyline 100 mg tablet 100 mg PO QHS PRN sleep 07/27/24 ipratropium bromide 42 mcg (0.06 %) nasal spray 2 spray intranasal TID #15 mL 07/27/24 gabapentin 800 mg tablet 800 mg PO TID 08/27/24 guaifenesin 1,200 mg tablet, extended release 12 hr 1,200 mg PO Q12H PRN cough 08/27/24 Hospital Course Operations None Procedures None Summary of Care Provided Minutes Spent on Discharge: 45 Hospital Course: ELIUD BLOUNT, is a 63 M with a PMH as outlined who presents via the ED with a complaint of altered mental status. Pateient could not give much of a history. Per ED doctor, patient had apparently been feeling weak and lightheaded and fell and hit his head against a radiator. He had expressive aphasia and was lethargic. He head butted his dog, according to his son. He has a history of COPD and is on the lung transplant list at [facility]. He was brought in to the ED due to concern about a stroke. Vitals in the ED were BP oif 101/74, IL of 73, RR of 10 and oxygen sats of 92% on room air. CBC showed Hb of 13.2, wbc of 4.5 and platelets of 262. INR is 1.1. ABG showed pH of 7.38, pCO2 of 53.7 and pO2 of 65. CHemistry showed sodium of 138, potassium of 3.6 and bicarb of 26.6. Cr is 0.73. Initial troponin was 23 and blood sugar was 147. Urine tox was pending, though his did say he has been on methamphetamines. Serum alcohol level was <7. 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 CTA of the head and neck showed minimal plaque at the origin of the right internal carotid artery. He was admitted to be managed for acute encephalopathy of unclear etiology. He was given 2 doses of IV Narcan though this did not help him wake up. Plan was to start him on Narcan drip and he was admitted to the ICU. However critical care were consulted reviewed patient and did not think that he needed the Narcan drip so this was never started. Neurology was also consulted. Critical care thought this was likely due to a meth slump from methamphetamine abuse. MRI of the brain showed no acute intracranial pathology. Patient subsequently spontaneously woke up and was alert and oriented with no focal deficits. Neurology also reviewed patient felt the symptoms may have been due to syncope. Patient remained stable and was discharged home on 08/28/2024. He is to follow- up with his primary care doctor within 1 to 2 weeks and counseled to abstain from methamphetamines. Patient seen and examined. Patient was alert and oriented x 3. He had no active complaints. He said he had felt weak and lightheaded the day of admission. He denied any recreational drug use. Review of systems otherwise negative. Labs and vitals reviewed. Home medication reviewed and reconciled. Physical Exam Const alert, oriented x3 and no apparent distress General Appearance: cooperative and comfortable Orientation / Consciousness: awake HEENT normocephalic, head/scalp atraumatic, hearing grossly normal bilaterally, moist oral mucous membranes and oropharynx normal Mouth: oral and palatal mucosa normal Eyes PERRL, EOMs intact bilaterally and conjunctivae normal Neck no lymphadenopathy and supple Resp Resp Narrative: mildly diminished breath sounds bibasally, no wheezes or crackles. On room air. Cardio regular rate, regular rhythm, S1 normal heart sound, S2 normal heart sound and no murmurs GI normal to inspection, nondistended, normoactive bowel sounds, soft to palpation, non-tender and non-distended Extremity normal to inspection, full ROM and no clubbing, cyanosis or edema Neuro oriented x3, CN's II-XII intact bilaterally, moves all extremities, no focal motor deficits and no sensory deficits noted Neuro Narrative: l Sensorium / Orientation: awake and alert Motor Exam: strength 5/5 throughout Psych affect normal Weight / BMI Weight Weight: 121 lb 7.595 oz Body Mass Index (BMI) 18.3 ABG / Lab / Microbiology Data 08/27/24 14:10 08/27/24 14:10 Laboratory: Laboratory Results - last 24 hr 08/27/24 14:10: WBC 4.5, RBC 4.38 L, Hgb 13.2, Hct 40.2, MCV 91.8, MCH 30.1, MCHC 32.8, RDW Std Deviation 44.0 H, RDW Coeff of Aaron 13.1, Plt Count 262, MPV 9.0, Immature Gran % (Auto) 0.200, Neut % (Auto) 43.2 L, Lymph % (Auto) 43.8 H, [place] % (Auto) 9.7, Eos % (Auto) 2.2, Baso % (Auto) 0.9, Absolute Neuts (auto) 2.0, Absolute Lymphs (auto) 1.99, Nucleated RBC % 0, PT 13.9, INR 1.1, APTT 31.6, Sodium 138, Potassium 3.6, Chloride 100, Carbon Dioxide 26.6, Anion Gap 11, BUN 22 H, Creatinine 0.73, Estim Creat Clear Calc 84.17, Est GFR (MDRD) Non- Af 103, BUN/Creatinine Ratio 30.2 H, Glucose 147 H, Calcium 8.8, Troponin T High Sens 23 H, TSH 1.320, Ethyl Alcohol < 10.1 08/27/24 15:30: Urine Opiates Screen NEGATIVE, U Buprenorphine Qual NEGATIVE, Ur Oxycodone Screen NEGATIVE, Urine Methadone Screen NEGATIVE, Urine Fentanyl Screen NEGATIVE, Ur Barbiturates Screen NEGATIVE, Ur Phencyclidine Scrn NEGATIVE, Ur Amphetamines Screen PRESUMTIVE POSITIVE, U Benzodiazepines Scrn NEGATIVE, Urine Cocaine Screen NEGATIVE, U Cannabinoids Screen NEGATIVE 08/27/24 16:25: Troponin T Hi Sens 2 Hr 33 H 08/27/24 16:43: Ammonia 38.6 08/27/24 19:00: Troponin T Hi Sens 4Hr 18 ABG: ABG 08/27/24 14:43 Specimen Type ART Sample Site L Brach pH 7.38 Bicarbonate Actual 31.9 H Total CO2 34 Base Excess 7 H O2 Saturation 91 L ABG pCO2 53.7 H ABG pO2 65 L O2 Delivery Device Room Air Vent Mode Not entered Radiography Diagnostic Testing: Radiology Impression Head/Neck CTA 08/27/24 14:25 IMPRESSION: RIGHT CAROTID: Minimal plaque at the origin of the right internal carotid artery. LEFT CAROTID: Unremarkable VERTEBRALS: Unremarkable INTRACRANIAL: Unremarkable One or more dose reduction techniques were used (e.g., Automated exposure control, adjustment of the mA and/or kV according to patient size, use of iterative reconstruction technique). Red Alert: The critical information above was relayed directly by me by telephone to Miguel Ángel Liao on 08/27/2024 at 2:50 pm with readback verification. Reading Location: [facility] Chest X-Ray 08/27/24 14:55 IMPRESSION: Stable examination. Reading Location: [facility] Brain MRI 08/27/24 19:55 IMPRESSION: 1. chronic microvascular ischemic disease. 2. Otherwise, unremarkable MRI of the brain without and with contrast. REASON FOR EXAM: No acute intracranial abnormality. Chronic microvascular ischemia and involutional changes. No suspicious intracranial mass, abnormal parenchymal or leptomeningeal enhancement COMPARISON: None. Reading [facility] Instructions Discharge Diet: Low fat / Low cholesterol Discharge Activity: Return to Normal Activity Weight Bearing Status: Weight bearing as tolerated Call your doctor if you observe: Fever of 101 or Higher, Shortness of breath, Dizziness, Swelling in the ankles and Chest pain DC O2, CPAP, BIPAP Needs PSN CPAP & BiPAP: BiPAP & CPAP Settings per PSN Fraction of Inspired Oxygen ( 99 08/28/24 00:00 FIO2) Home O2 Discharge instructions: No DC home with Oxygen: No Meaningful Use Info Meaningful Use Meaningful Use Diagnoses (Choose all that apply): None applicable Ischemic Stroke Statin Dosing Therapy Reference: STATIN DOSE THERAPY REFERENCE: * Patients > 75 years receive moderate or high dose statin therapy. * Patients 75 years or YOUNGER should receive HIGH intensity statin dose unless contraindicated. You will be required to document reason for non-treatment if statin daily dose does not meet guidelines. HIGH DOSE STATIN THERAPY DAILY Atorvastatin > than or = to 40 mg Rosuvastatin > than or = to 20 mg Amlodipine + Atorvastatin > than or = to 2.5/40 mg Ezetimibe + Simvastatin 10/80 mg Simvastatin 80mg Discharge Plan Admission Admit Date/Time: 08/27/24 17:01 Primary Reason for Your Visit: acute encephalopathy Attending Provider: Hyun Duncan Primary Care Provider: Priscilla Nixon Consulting Providers: Jone Dudley; Jeffry Bo; Magdi Serrano; Rock Dick; Calvin Jasso; Sebastian Charles; Jamal Mina; Claudine Davis; Morris Disla; Fabien Boles; Jarek Rosas; Sirisha Lorenzo; Rosaura Mosley; Debbie Jimenez; Krishan Calzada; Jermaine Valenzuela; Joe Crouch; Sukhdeep Michelle; Erica Palacios; Kee Lagos; Mauricio Culp; Humberto Ashley; Roel Bermudez; Al Conner; Nael Grullon; Charissa Vickers; Maria M Triana; Swathi Pete; Crow Barrera; Pauline Lyons; Saqib Holcomb; Eliud Tripp; Nehemias Martines; Sofia Smith; Jerome Pollack; Laxmi Oh; Flaco Hidalgo; Vitadestinee Ayers; Saturnino Calixto; Chiara Mccracken; Chandler Drake; Robyn Fontana; Kandi Ray Instructions Patient Instructions: ED Confusion Discharge Orders/Prescriptions Prescriptions: Continued fluticasone propionate 50 mcg/actuation spray,suspension 2 spray intranasal DAILY Qty: 16 3RF (DME) Disability Jarvis See Rx Instructions .ROUTE .MEDSUPPLY Qty: 1 0RF Rx Instructions: expires 06/14/2029 ipratropium bromide 42 mcg (0.06 %) spray,non-aerosol 2 spray intranasal TID Qty: 15 0RF Rx Instructions: administer into each nostril albuterol sulfate 90 mcg/actuation HFA aerosol inhaler 2 puff inhalation Q4H PRN (Reason: shortness of breath or wheezing) Qty: 8.5 11RF Rx Instructions: administer with spacer amitriptyline 100 mg tablet 100 mg PO QHS PRN (Reason: sleep) Patient Comments: TAKE 1 TABLET BY MOUTH EVERY DAY levetiracetam 500 MG tablet 500 mg PO DAILY divalproex 250 mg tablet,delayed release (DR/EC) 750 mg PO BID ibuprofen [Addaprin] 200 mg tablet 400 mg PO Q8H PRN (Reason: pain) gabapentin 800 mg tablet 800 mg PO TID guaifenesin 1,200 mg tablet extended release 12hr 1,200 mg PO Q12H PRN (Reason: cough) albuterol sulfate 2.5 mg /3 mL (0.083 %) solution for nebulization 2.5 mg inhalation Q4H PRN Qty: 120 4RF Rx Instructions: Use q4 hours and PRN for wheezing Trelegy Ellipta 200-62.5-25 mcg blister with device 1 inh inhalation DAILY Qty: 60 11RF Referrals / Follow Up: Priscilla Nixon MD [Primary Care Provider] - Within 1 Week Disposition Disposition (needs filled in before D/C Order can be placed): Home, Self Care Charges/Coding Visit Charges Inpatient E&M: 26093 Disch Hosp >30min
--- NOTE | 2024-08-28 11:57 | CASEMGMT ---
JULIETTE SHARP Assessment: Face to Face with pt for initial transition planning/care coordination assessment. JULIETTE SHARP introduced self and role at [facility], pt voices understanding and consents to assessment. Pt is A&O x4 and answers all questions appropriately at this time. Pt sitting up in chair in no distress, son in room with pt. Pt agreeable to DC planning with family present. Care providers, pharmacy, and demographics verified/updated. Admitting Dx: Acute encephalopathy possible OPIOD overdose PCP: Tiffani Specialists: Denies Preferred Pharmacy: [facility] Insurance: [facility] MCR dual Advantage plan Prescription Benefit: yes LNOK: , Erin; Son, Silver Living Arrangements: Pt lives with and kids in a trailer ADLs: Pt I with ADLs and IADLs. Transportation: Pt drives self and denies concerns with transportation. DME: Denies, denies need for any DME HHC/SNF: Denies Pt states no concerns with going home at time of dc. Denies use of street drugs. Pt states no further concerns/needs. CM to follow. Advised pt to ask CM if any further question/concerns/needs arise, voices understanding. Pt Goal: Home Plan: Home, follow for safe DC. Mirza SEGOVIA CM
--- NOTE | 2024-08-28 12:00 | NURSING ---
patient requesting to take depakote and keppra at home this afternoon
== END 2024-08-28 12:35 | disposition home or self-care (01) ==
LOC: ED 17:12 → ICU 17:57
PROVIDERS: Admitting Provider Student in an Organized Health Care Education/Training Program; Emergency Provider Emergency Medicine; PCP Internal Medicine; Visit Provider Student in an Organized Health Care Education/Training Program
DX: G93.40 Encephalopathy, unspecified (principal); F15.229 Other stimulant dependence with intoxication, unspecified; J96.12 Chronic respiratory failure with hypercapnia; F31.9 Bipolar disorder, unspecified; J44.89 Other specified chronic obstructive pulmonary disease; G40.909 Epilepsy, unspecified, not intractable, without status epilepticus; F17.200 Nicotine dependence, unspecified, uncomplicated; S06.0XAA Concussion with loss of consciousness status unknown, initial encounter; W54.1XXA Struck by dog, initial encounter; R47.01 Aphasia; K21.9 Gastro-esophageal reflux disease without esophagitis; Z79.899 Other long term (current) drug therapy; G47.33 Obstructive sleep apnea (adult) (pediatric); Z79.51 Long term (current) use of inhaled steroids; R41.82 Altered mental status, unspecified; R94.31 Abnormal electrocardiogram [ECG] [EKG]; Z87.820 Personal history of traumatic brain injury; R53.1 Weakness; R55 Syncope and collapse
CPT/HCPCS: 36600; 70450; 70496; 70498; 70553; 71045; 80048; 80307; 82077; 82140; 82803; 84443; 84484; 85025; 85610; 85730; 93005; 94640; 94762; 96361; 96372; 96374; 96376; 97802; 99221; 99285; A9575; P9612; Q9967; A4216; G0378

== ENCOUNTER → 2024-11-25 | Outpatient (CLI) | payer MEDICARE, MEDICAID, SELFPAY ==
[2024-11-25 16:07] LABS: Pro- Brain NATRIURETIC PEPTIDE 95 pg/mL (<=900)
[2024-11-25 16:12] LABS: Anion Gap 12 (5-15); BUN 15 mg/dL (4-19); BUN/Creat Ratio 22.5 RATIO (10-20); Carbon Dioxide 28.9 mmol/L (21.0-32.0); Chloride 97 mmol/L (98-108); Creatinine, Serum 0.66 mg/dL (0.70-1.20); EST Glomerular Filtration Rate 106 (>60); Glucose 55 mg/dL (70-99); Potassium 3.4 mmol/L (3.3-5.1); Sodium Level 138 mmol/L (133-145)
== END | disposition home or self-care (01) ==
PROVIDERS: PCP Internal Medicine; Referring Provider Nurse Practitioner Family; Visit Provider Nurse Practitioner Family
DX: R06.02 Shortness of breath (principal)
CPT/HCPCS: 36415; 80048; 83880

== ENCOUNTER 2025-01-22 23:25 | Observation (INO) | payer MEDICARE, SELFPAY ==
--- NOTE | 2025-01-22 23:27 | CT_ITS ---
EXAM: STROKE BRAIN/HEAD WITHOUT CONT CLINICAL HISTORY: 64 y/o M with ALTERED MENTAL STATUS. COMPARISON: MRI brain, CTA head 08/28/2023. TECHNIQUE: Routine CT imaging of the head without IV contrast. Additional multiplanar reformats were obtained. Dose reduction techniques were used including intermediate exposure control (AEC),iterative reconstruction technique, and/or mA and/or KV dose adjustments based on patient's size. FINDINGS: The ventricles, sulci and cisterns are mildly prominent, suggestive of mild brain parenchymal volume loss. There is no evidence of acute intracranial hemorrhage or herniation. There is no midline shift, mass effect, or extra-axial collection. 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 Moderate patchy supratentorial white matter hypodensities. The szymanski-white matter interfaces are otherwise maintained. The orbits, visualized paranasal sinuses and mastoids are unremarkable. No acute calvarial fracture or scalp hematoma. CT/STROKE Brain/Head without Cont IMPRESSION: No acute intracranial finding. Chronic findings as described. Dr. Betancourt discussed these findings via telephone with Dr. Sullivan at 11:42 p.m . on 01/22/2025. Reading Location: [id number]
--- NOTE | 2025-01-22 23:30 | EKG12_ITS ---
Test Reason : DYSRHYTHMIA Blood Pressure : */* mmHG Vent. Rate : 75 BPM Atrial Rate : 75 BPM P-R Int : 122 ms QRS Dur : 94 ms QT Int : 408 ms P-R-T Axes : 32 92 70 degrees QTcB Int : 455 ms Normal sinus rhythm Rightward axis Borderline ECG Confirmed by MARLON WATSON MD ([id number]), city editor MEG MULLINS ([id number]) on 01/24/2025 1:13:18 PM Referred By: Confirmed By: MARLON WATSON MD
[2025-01-22 23:31] VITALS: BP 122/83; PULSE 80; RESP 10; TEMP 35.9; O2SAT 98; BMI 17.7
--- NOTE | 2025-01-22 23:34 | ED.RN ---
Stroke Alert cancelled at this time by Dr Sullivan
--- OUTSIDE RECORDS SUMMARY | 2025-01-22 23:38 | XMS RPT_ITS | CCD ---
Author Organization [facility] Care Team Providers Care Garnett Machine Operator Name Role Phone Dr. Charan Arndt Primary Care Provider Chase DOOR TO DOOR SALES REPRESENTATIVE, DOOR TO DOOR SALES REPRESENTATIVE-C Tammy Referring Provider hCase DOOR TO DOOR SALES REPRESENTATIVE, DOOR TO DOOR SALES REPRESENTATIVE-C Tammy Other Provider Dr. Magdi Serrano Attending Provider Dr. Rock Dick Attending Provider Dr. Rock Dick Referring Provider Charan Arndt MD Primary Care Provider Lance Gillespie (Hist) Unavailable Charan Maurice MD Primary Care Provider Lance Gillespie (Hist) Unavailable Dr. Charan Maurice Primary Care Provider Dr. Jurgen Perez Emergency Provider Dr. Rex Bernard Admit Provider Dr. Rex Bernard Attending Provider Dr. Rex Bernard Other Provider Dr. Ines Hernandez Attending Provider Dr. Ines Hernandez Other Provider Dr. Charan Arndt Primary Care Provider Dr. Charan Arndt Referring Provider Dr. Rock Dick Attending Provider Charan Perkins MD Primary Care Provider RADHA LOCKWOOD Attending Unavailable CHARAN PERKINS Referring Unavailable MANDIE RADHA Valladares Attending Unavailable Dr. Charan Arndt Primary Care Provider Dr. Charan Arndt Referring Provider Stone DOOR TO DOOR SALES REPRESENTATIVE, DOOR TO DOOR SALES REPRESENTATIVE-C Tammy Attending Provider Stone DOOR TO DOOR SALES REPRESENTATIVE, DOOR TO DOOR SALES REPRESENTATIVE-C Tammy Referring Provider Stone DOOR TO DOOR SALES REPRESENTATIVE, DOOR TO DOOR SALES REPRESENTATIVE-C Tammy Other Provider Dr. Rock Dick Attending Provider Tiffani ARBOLEDA, Charan Primary Care Provider Justus STEWART, Serene L Unavailable Older TORPEDOMAN'S MATE.OIL PLANT OPERATOR, Alison Unavailable Isaac STEWART, Esmer Unavailable Dr. Charan Arndt MD Primary Care Provider Dr. Charan Arndt MD Referring Provider Dr. Erick Hernández MD Attending Provider Chase DOOR TO DOOR SALES REPRESENTATIVE-C, Tammy Attending Provider Chase DOOR TO DOOR SALES REPRESENTATIVE-C, Tammy Referring Provider Chase DOOR TO DOOR SALES REPRESENTATIVE-C, Tammy Other Provider Dr. Rock Dick DO Attending Provider Dr. Erick Hernández MD Referring Provider Scarlett DOOR TO DOOR SALES REPRESENTATIVE-C, Nicki Wang Attending Provider Yanni ARBOLEDA, Miguel Ángel Emergency Provider Perla ARBOLEDA, Dr. Hyun Landeros Admit Provider [phone] Perla ARBOLEDA, Dr. Hyun Landeros Attending Provider Luis Enrique ARBOLEDA, Dr. Becerril Other Provider Betzy ARBOLEDA, Dr. Teran Other Provider Zach ARBOLEDA, Dr. Fairbanks Other Provider Dr. Rock Dick DO Other Provider Romero ARBOLEDA, Dr. Calvin Boyer Other Provider [phone] Araceli ARBOLEDA, Dr. Cortes Other Provider Keeley ARBOLEDA, Dr. Berry Other Provider Ryan ARBOLEDA, Dr. Chow Other Provider [phone] Naif ARBOLEDA, Dr. Caceres Other Provider Ramana ARBOLEDA, Dr. Conn Other Provider Ralph ARBOLEDA, Dr. Tilley Other Provider Bj ARBOLEDA, Dr. Grimm Other Provider Dimitri ARBOLEDA, Dr. Kaplan Other Provider Unavailabl malik Jimenez MD, Dr. Lewis Other Provider [phone] Elsi ARBOLEDA, Dr. Nickerson Other Provider Bianca ARBOLEDA, Dr. Dean Other Provider [phone] Miko ARBOLEDA, Dr. Diaz Other Provider Miguel Angel FISCHER, Dr. Tarango Other Provider [phone] Suzanne ARBOLEDA, Dr. Maldonado Other Provider [phone] Yolis ARBOLEDA, Dr. Sweet Other Provider Suni FISCHER, Dr. Martínez Other Provider Dion ARBOLEDA, Dr. Paul Other Provider Aidan ARBOLEDA, Dr. Sevilla Other Provider Al Conner MD Other Provider Unavailable Dr. Nael Grullon MD Other Provider Charissa Vickers MD Other Provider Unavailable Kong FISCHER, Dr. Franz Other Provider [phone] Yanci ARBOLEDA, Dr. Echevarria Other Provider Holly ARBOLEDA, Dr. Maria Other Provider [phone] Eloy ARBOLEDA, Dr. Carpenter Other Provider Zhang ARBOLEDA, Dr. Cerrato Other Provider Qasim ARBOLEDA, Dr. Goldberg Other Provider Conrad ARBOLEDA, Dr. Del Cid Other Provider Sofia Simth MD Other Provider Ranjeet ARBOLEDA, Dr. Cano Other Provider Adriano ARBOLEDA, Dr. Hair Other Provider Gwne ARBOLEDA, Dr. Sam Other Provider Vita ARBOLEDA, Dr. Otto Ayers Other Provider Durag ARBOLEDA, Dr. Matamoros Other Provider Nawaf ARBOLEDA, Dr. Guadarrama Other Provider Noelle ARBOLEDA, Dr. Arteaga Other Provider [phone] Addi ARBOLEDA, Dr. Carlson Other Provider Unavailable Cory ARBOLEDA, Kandi Other Provider Unavailable Tiffani ARBOLEDA, Dr. Wells Primary Care Provider Perla ARBOLEDA, Dr. Hyun Landeros Other Provider Nicki Waterman Attending Provider Scarlett HENRY-Nicki Fierro Referring Provider Dr. Charan Arndt MD Referring Provider GANTA, CHARAN Primary Care Unavailable GANTA, CHARAN Primary Care Unavailable GANTA, CHARAN Primary Care Unavailable JACKY FERRERA Referring Unavailable GANTA, CHARAN Primary Care Unavailable GANTA, CHARAN Primary Care Unavailable GANTA, CHARAN Primary Care Unavailable GANTA, CHARAN Primary Care Unavailable Ganta, Charan Primary Care Unavailable Johnny Xavier Attending Unavailrobert al Ganta, Charan Primary Care Unavailable Calvin Pedro Attending Unavailable Al Conner Consulting Unavailable Becky Thomas Admitting Unavailable Adeli, Amir Consulting Unavailable Hinduja, Charissa Consulting Unavailable Kong, Maria M Consulting Unavailable Zha, Swathi Consulting Unavailable Holly, Crow Consulting Unavailable Eloy, Pauline Consulting Unavailable Bittar, Saqib Consulting Unavailable Eliud Tripp Consulting Unavailable Nehemias Martines Consulting Unavailable Sofia Smith Consulting Unavailable Jerome Pollack Consulting Unavailable Laxmi Oh Consulting Unavailable Flaco Hidalgo Consulting Unavailable Vita, Vandad Armen Consulting UnavailSaturnino Beth Consulting Unavailable Mccracken, Rami Consulting Unavailable Chandler Drake Consulting Unavailable Robyn Fontana Consulting Unavailable Kandi Ray Consulting Unavailable Becky Thomas Consulting Unavailable Perla, Hyun Leti Consulting Unavailable Calvin Pedro Consulting Unavailable Chase DOOR TO DOOR SALES REPRESENTATIVE, Tammy Attending Unavailable [facility] Primary Care Unavailable Chase DOOR TO DOOR SALES REPRESENTATIVE, Tammy Referring Unavailable Becky Thomas Attending Unavailable Rock Dick Attending Unavailable Chase DOOR TO DOOR SALES REPRESENTATIVE, Tammy Referring Unavailable Chase DOOR TO DOOR SALES REPRESENTATIVE, Tammy Consulting Unavailable [facility] Primary Care Unavailable Koram, Hyun Leti Consulting Unavailable Koram, Hyun Leti Admitting Unavailable [facility] Primary Care Unavailable Koram, Hyun Leti Attending Unavailable Jone Dudley Consulting Unavailable Jeffry Bo Consulting Unavailable Magdi Serrano Consulting Unavailable Rock Dick Consulting Unavailable Calvin Jasso Consulting Unavailable Sebastian Charles Consulting Unavailable Jamal Mina Consulting Unavailable Claudine Davis Consulting UnavailMorris Kirby Consulting Unavailable Fabien Boles Consulting Unavailable Jarek Rosas Consulting Unavailable Sirisha Lorenzo Consulting Unavailable Rosaura Mosley Consulting Unavailable Debbie Jimenez Consulting Unavailable ElsiJocelyn mominm Consulting Unavailable Jermaine Valenzuela Consulting Unavailable Miko, Joe Consulting Unavailable Miguel Angel, Consulting Unavailable Erica Palacios Consulting Unavailable Kee Lagos Consulting Unavailable Mauricio Culp Consulting Unavailable Humberto Ashley Consulting Unavailable Roel Bermudez Consulting Unavailable Al Conner Consulting Unavailable AdeNael bragg Consulting Unavailable Hinducarlton, Charissa Consulting Unavailable Kong Maria M Consulting Unavailable Yanci, Swathi Consulting Unavailable Crow Barrera Consulting Unavailable Pauline Lyons Consulting Unavailable Saqib Holcomb Consulting Unavailable Eliud Tripp Consulting Unavailable Nehemias Martines Consulting Unavailable Sofia Smith Consulting Unavailable Jerome Pollack Consulting Unavailable Adriano, Laxmi Consulting Unavailable Gwen, Flaco Consulting Unavailable Vita, Vandad Armen Consulting UnavailSaturnino Beth Consulting Unavailable Mccracken, Rami Consulting Unavailable Noelle, Chandler Consulting Unavailable Addi, Robyn Consulting Unavailable Hannawi, Yousef Consulting Unavailable Stone DOOR TO DOOR SALES REPRESENTATIVE, Tammy Referring Unavailable Stone DOOR TO DOOR SALES REPRESENTATIVE, Tammy Attending Unavailable [facility] Primary Care Unavailable Al Conner Consulting Unavailable [facility] Primary Care Unavailable Calvin Pedro Attending Unavailable William, Becky Admitting Unavailable Adeli, Amir Consulting Unavailable Hinduja, Charissa Consulting Unavailable Kong, Maria M Consulting Unavailable Yanci Swathi Consulting Unavailable Crow Barrera Consulting Unavailable Pauline Lyons Consulting Unavailable Saqib Holcomb Consulting Unavailable Eliud Tripp Consulting Unavailable Nehemias Martines Consulting Unavailable Sofia Smith Consulting Unavailable Jerome Pollack Consulting Unavailable Laxmi Oh Consulting Unavailable Flaco Hidalgo Consulting Unavailable Otto Gorman Consulting UnavailSaturnino Beth Consulting Unavailable Mccracken, Rami Consulting Unavailable Noelle, Chandler Consulting Unavailable Addi, Robyn Consulting Unavailable Hannawi, Yousef Consulting Unavailable William, Becky Consulting Unavailable Koram, Hyun Leti Consulting Unavailable Stone DOOR TO DOOR SALES REPRESENTATIVE, Tammy Attending Unavailable Stone DOOR TO DOOR SALES REPRESENTATIVE, Tammy Referring Unavailable [facility] Primary [facility] Unavailable Stone DOOR TO DOOR SALES REPRESENTATIVE, Tammy Attending Unavailable [facility] Primary Care Unavailable Bevam, Hyun Leti Attending Unavailable Koram, Hyun Leti Admitting Unavailable [facility] Care Unavailable Jone Dudley Consulting Unavailable Jeffry Bo Consulting Unavailable Magdi Serrano Consulting Unavailable Rock Dick Consulting Unavailable Calvin Jasso Consulting Unavailable Sebastian Charles Consulting Unavailable Jamal Mina Consulting Unavailable Claudine Davis Consulting UnavailMorris Kirby Consulting Unavailable Fabien Boles Consulting Unavailable Jarek Rosas Consulting Unavailable Sirisha Lorenzo Consulting Unavailable AlRosaura spear Consulting Unavailable JimenezRach leyvasa Consulting Unavailable Idalia Calzadatam Consulting Unavailable Jermaine Valenzuela Consulting Unavailable Joe Crouch Consulting Unavailable Sukhdeep Michelle Consulting Unavailable Erica Palacios Consulting Unavailable Kee Lagos Consulting Unavailable Mauricio Culp Consulting Unavailable Dion, Humberto Consulting Unavailable Roel Bermudez Consulting Unavailable Al Conner Consulting Unavailable Adeli, Amir Consulting Unavailable Hinduja, Charissa Consulting Unavailable Kong, Maria M Consulting Unavailable Zha, Swathi Consulting Unavailable Holly, Crow Consulting Unavailable Eloy, Pauline Consulting Unavailable Bittar, Saqib Consulting Unavailable Eliud Tripp Consulting Unavailable Nehemias Martines Consulting Unavailable Sofia Smith Consulting Unavailable Jerome Pollack Consulting Unavailable Laxmi Oh Consulting Unavailable Ridrubén, Flaco Consulting Unavailable Zastacy, Vandad Armen Consulting UnavailSaturnino Beth Consulting Unavailable Mccracken, Chiara Consulting Unavailable Chandler Drake Consulting Unavailable Robyn Fontana Consulting Unavailable Cory, Kandi Consulting Unavailable Nicki Pantoja Referring Unavailable Nicki Pantoja Attending Unavailable Ganta, Charan Primary Care Unavailable Ganta, Charan Primary Care Unavailable Hernández, Erick Attending Unavailable Hernández, Erick Referring Unavailable Ganta, Charan Primary Care Unavailable Ganta, Charan Referring Unavailable Hernández Erick Attending Unavailable Ganta, Charan Primary Care Unavailable Ganta, Charan Referring Unavailable Nicki Pantoja Attending Unavailable Nicki Pantoja Attending Unavailable Ganta, Charan Referring Unavailable Ganta, Charan Primary Care Unavailable Ganta, Charan Primary Care Unavailable Ganta, Charan Referring Unavailable Hernández, Erick Attending Unavailable Chase DOOR TO DOOR SALES REPRESENTATIVE, Tammy Attending Unavailable Ganta, Charan Primary Care Unavailable Ganta, Charan Referring Unavailable Ganta , Dr. Wells Primary Care Provider [phone] Allergies Allergy Classification Reported Allergen(s) Allergy Type Date of Onset Reaction(s) Facility (15 sources) Dextromethorphan; Translations: [dextromethorphan HBr] Drug Allergy 2 tachycardia, feels anxious [facility] (20 sources) Doxylamine; Translations: [DOXYLAMINE] Drug Allergy 7 Other: See Comments [facility] Work Phone: (15 sources) Pseudoephedrine; Translations: [pseudoephedrine HCl] Drug Allergy 2 Tachycardia, feels anxious [facility] (20 sources) Sertraline; Translations: [SERTRALINE HCL] Drug Allergy 1 Diarrhea, GI Upset [facility] Work Phone: (20 sources) Acetaminophen / Dextromethorphan / Doxylamine / Pseudoephedrine; Translations: [CCITUVEDB-SXC-YV-AC ETAMINOPHEN] Drug Allergy 8 Intolerance [facility] Work Phone: (20 sources) Baclofen; Translations: [BACLOFEN] Drug Allergy 7 Other: See Comments [facility] Work Phone: (20 sources) Dextromethorphan; Translations: [DEXTROMETHORPHAN] Drug Allergy 7 Other: See Comments [facility] Work Phone: [phone] (20 sources) Pseudoephedrine; Translations: [PSEUDOEPHEDRINE] Drug Allergy 7 Other: See Comments [facility] Work Phone: (20 sources) Sertraline; Translations: [SERTRALINE] Drug Allergy 7 Diarrhea [facility] Work Phone: (20 sources) Mnlmmnn-Lz-Qf-Acetam inophen-Gg; Translations: [HRELBEC-QE-WW-ACETA MINOPHEN-GG] Drug Allergy 7 Other: See Comments [facility] Work Phone: (1 source) Doxylamine Drug Allergy 5 [facility] Repository Medications Current Medications Medication Drug Class(es) Dates Sig (Normalized) Sig (Original) amoxicillin 875 mg / clavulanate 125 mg oral tablet (20 sources) Penicillin-class Antibacterial Start: 05-19-2024 End: 05-24-2024 take 1 tablet by mouth twice daily amoxicillin-clav ulanate potassium (AUGMENTIN) 875-125 mg per tablet Indications: Bacterial sinusitis Take 1 tablet by mouth two times a day for 5 days. 10 tablet 05/19/2024 05/24/2024 Active Start: 04-03-2023 End: 04-10-2023 take 1 tablet by mouth twice daily [...] days. 14 tablet 0 05/17/2022 05/24/2022 Active Start: 08-28-2021 take 1 tablet by george twice daily Amoxicillin-Pot Clavulanate Active 1 TABLET PO TWICE A DAY August 28, 2021 3:03pm Start: 04-20-2018 End: 05-14-2018 Amoxicillin-Pot Clavulanate (Augmentin) 875-125 mg tablet Discontinued 1 {tbl} PO TWICE A DAY April 20, 2018 1:00am May 14, 2018 1:53pm Comment on above: Take 1 tablet by george twice daily for 7 days. Take 1 tablet by george two times a day for 7 days. ascorbic acid 60 mg / beta carotene 5000 unt / copper sulfate 40 mg / dl-alpha tocopheryl acetate 30 unt / sodium selenite 0.04 mg / zinc oxide 40 mg oral tablet (3 sources) Vitamin C Multiple Vitamin (Multivitamin Adult) tablet as directed Orally Active azithromycin 250 mg oral tablet (20 sources) Macrolide Antimicrobial Start: 05-17-20 End: 05-22-20 take 2 tablets by mouth once daily, then take 1 tablet by mouth once daily azithromycin (ZITHROMAX) 250 mg tablet Take 2 tablets by mouth once daily for 1 day, THEN 1 tablet once daily for 4 days. 6 tablet 0 05/17/2022 05/22/2022 Active Start: 04-28-2020 End: 07-05-2020 take 1 tablet by mouth at bedtime Azithromycin 250 MG tablet Discontinued 250 mg PO AT BEDTIME 4 April 28, 2020 1:00am July 05, 2020 11:10am Start: 08-18-2017 End: 10-27-2017 take 1 tablet by mouth once daily Azithromycin 250 mg tablet Discontinued 250 mg PO daily 6 August 18, 2017 1:00am October 27, 2017 1:09pm Comment on above: Take 2 tablets by mo [facility] once daily for 1 day, THEN 1 tablet once daily for 4 days. Disability Placard (4 sources) Start: 06-14-2024 Disability Placard Active 0 .ROUTE .MEDSUPPLY 1 June 14, 2024 1:00am chronic respiratory distress J96.10 expires 06/14/2029 Start: 06-14-2024 Disability Angelina card Active 0 .ROUTE .MEDSUPPLY June 14, 2024 1:00am expires 06/14/2029 doxycycline hyclate 100 mg oral tablet (13 sources) Tetracycline-class Drug Start: 07-08-2024 End: 07-15-2024 take 1 tablet by mouth twice daily doxycycline (VIBRA-TABS) 100 mg tablet Take 1 tablet by mouth two times a day for 7 days. 14 tablet 07/08/2024 07/15/2024 Active Start: 05-19-2024 End: 05-24-2024 take 1 tablet by mouth twice daily doxycycline monohydrate 100 mg tablet Indications: COPD with exacerbation (HCC) Take 1 tablet by mouth two times a day for 5 days. 10 tablet 05/19/2024 05/24/2024 Active Start: 02-22-2024 End: 02-29-2024 take 1 tablet by mouth twice daily doxycycline (VIBRA-TABS) 100 mg tablet Take 1 tablet by mouth two times a day for 7 days. 14 tablet 02/22/2024 02/29/2024 Active Start: 10-06-2023 End: 11-25-2023 take 1 tablet by mouth twice daily Doxycycline Hyclate 100 mg tablet Discontinued 100 mg PO TWICE A DAY October 06, 2023 12:00am November 25, 2023 11:00am Start: 04-15-2022 End: 04-20-2022 take 1 tablet by mouth twice daily doxycycline monohydrate 100 mg tablet Take 1 tablet by mouth twice daily for 5 days. 10 tablet 0 04/15/2022 04/20/2022 Active Comment on above: Take 1 tablet by george twice daily for 5 days. 2 ml dupilumab 150 mg/ml auto-injector (3 sources) Interleukin-4 Receptor alpha Antagonist Start: 11-27-19 25 Dupilumab (Dupixent Pen) 300 mg/2 mL pen injector Active 300 mg SC every 2 weeks 4 November 26, 2024 12:00am Stage 4 very severe COPD by GOLD classification Eosinophilia Chronic obstructive pulmonary disease, unspecified Eosinophilia, unspecified fluticasone propionate 0.05 mg/actuat metered dose nasal spray (9 sources) Corticosteroid Start: 06-14-20 take 2 spray(s) nasal route once daily fluticasone (FLONASE) 50 mcg/actuation nasal spray Use 2 Sprays in each nostril once daily. 06/14/2024 Active Start: 06-14-2024 Fluticasone Pr opionate 50 mcg/actuation spray,suspension Active 2 NMA INTRANASAL DAILY 16 June 14, 2024 1:00am Asthma Unspecified asthma, uncomplicated Intoelrjnwd-Ljrbpbzwz-Swefmz er (20 sources) Start: 09-22-2024 Cyibgjrpnlc-Quzvppbkf-Slotuw er (Trelegy Ellipta) 200-62.5-25 mcg blister with device Active 1 NMA INHALATION DAILY 60 September 22, 2024 1:23pm Start: 09-22-2024 Fluticasone-Um eclidin-Vilanter (Trelegy Ellipta) 200-62.5-25 mcg blister with device Active 1 NMA INHALATION DAILY September 22, 2024 1:23pm Start: 04-15-2024 End: 09-22-2024 Utyezeoyynh-Cahlofkvw-Zhseob er (Trelegy Ellipta) 200-62.5-25 mcg blister with device Discontinued 1 NMA INHALATION DAILY 60 April 15, 2024 10:32am September 22, 2024 1:24pm Start: 04-15-2024 End: 09-22-2024 Kwkmuksepsn-Wsbaedhxc-Oihmjo er (Trelegy Ellipta) 200-62.5-25 mcg blister with device Discontinued 1 NMA INHALATION DAILY April 15, 2024 10:32am September 22, 2024 1:24pm Start: 04-15-2024 Fluticasone-Um eclidin-Vilanter (Trelegy Ellipta) 200-62.5-25 mcg blister with device Active 1 NMA INHALATION DAILY April 15, 2024 10:32am Start: 09-24-2023 End: 04-15-2024 Rcjktcmwrzn-Gvxkbvkqr-Dzexhx er (Trelegy Ellipta) 200-62.5-25 mcg blister with device Discontinued 1 NMA INHALATION DAILY 60 September 24, 2023 2:40pm April 15, 2024 10:33am Start: 09-24-2023 End: 04-15-2024 Zneoatlxsrz-Kkqkholdj-Igauyl er (Trelegy Ellipta) 200-62.5-25 mcg blister with device Discontinued 1 NMA INHALATION DAILY 60 September 24, 2023 2:40pm April 15, 2024 10:33am Start: 09-24-2023 Fluticasone-Um eclidin-Vilanter (Trelegy Ellipta) 200-62.5-25 mcg blister with device Active 1 INH INHALATION DAILY 60 September 24, 2023 2:40pm Start: 09-10-2022 End: 09-24-2023 Dypfofxqomp-Goojtwexl-Wrwuzp er (Trelegy Ellipta) 200-62.5-25 mcg blister with device Discontinued 1 NMA INHALATION DAILY 60 September 10, 2022 12:00am September 24, 2023 2:40pm Start: 09-10-2022 End: 09-24-2023 Wirvbuhsqsr-Aapdhtggi-Krakkg er (Trelegy Ellipta) 200-62.5-25 mcg blister with device Discontinued 1 NMA INHALATION DAILY 60 September 10, 2022 12:00am September 24, 2023 2:40pm Start: 09-10-2022 End: 09-24-2023 Mznstulpmkj-Keumpvowo-Eminll er (Trelegy Ellipta) 200-62.5-25 mcg blister with device Discontinued 1 INH INHALATION DAILY 60 September 10, 2022 12:00am September 24, 2023 2:40pm Start: 09-10-2022 Fluticasone-Um eclidin-Vilanter (Trelegy Ellipta) 200-62.5-25 mcg blister with device Active 1 INH INHALATION DAILY 60 September 09, 2022 11:00pm Start: 09-10-2022 Fluticasone-Um eclidin-Vilanter (Trelegy Ellipta) 200-62.5-25 mcg blister with device Active 1 INH INHALATION DAILY 60 September 10, 2022 12:00am Start: 05-18-2022 End: 09-24-2023 Ilqnrdqkhee-Nviorbmhd-Svqoas er (Trelegy Ellipta) 200-62.5-25 mcg blister with device Discontinued 1 NMA INHALATION DAILY May 18, 2022 1:48am September 24, 2023 2:28pm Check with primary doctor Start: 05-18-2022 End: 09-24-2023 Jsbxriyrolr-Gsgifthos-Hinbxf er (Trelegy Ellipta) 200-62.5-25 mcg blister with device Discontinued 1 NMA INHALATION DAILY May 18, 2022 1:48am September 24, 2023 2:28pm Start: 05-18-2022 End: 09-24-2023 Xuzysgkvmpa-Skxmgedwn-Ownasv er (Trelegy Ellipta) 200-62.5-25 mcg blister with device Discontinued 1 INH INHALATION DAILY May 18, 2022 1:48am September 24, 2023 2:28pm Start: 05-18-2022 Fluticasone-Um eclidin-Vilanter (Trelegy Ellipta) 200-62.5-25 mcg blister with device Active 1 INH INHALATION DAILY May 18, 2022 1:48am Start: 05-18-2022 Fluticasone-Um eclidin-Vilanter (Trelegy Ellipta) 200-62.5-25 mcg blister with device Active 1 INH INHALATION DAILY May 18, 2022 12:48am Start: 09-25-2021 Fluticasone-Um eclidin-Vilanter (Trelegy Ellipta) 200-62.5-25 mcg blister with device Active 1 INH INHALATION DAILY 60 September 25, 2021 10:03am Start: 09-25-2021 End: 05-18-2022 Zhdueqvyzre-Dehdovsqa-Axltzd er (Trelegy Ellipta) 200-62.5-25 mcg blister with device Discontinued 1 NMA INHALATION DAILY 60 September 25, 2021 12:00am May 18, 2022 1:49am Start: 09-25-2021 End: 05-18-2022 Zlxixpllmnx-Swqtsknri-Ouxlks er (Trelegy Ellipta) 200-62.5-25 mcg blister with device Discontinued 1 NMA INHALATION DAILY 60 September 25, 2021 12:00am May 18, 2022 1:49am Start: 09-25-2021 End: 05-18-2022 Bavstvgtbxs-Piueunfgn-Ubacjp er (Trelegy Ellipta) 200-62.5-25 mcg blister with device Discontinued 1 INH INHALATION DAILY 60 September 25, 2021 12:00am May 18, 2022 1:49am Start: 09-25-2021 End: 05-18-2022 Ijhviemdmdf-Jtoxdkxyh-Igvqml er (Trelegy Ellipta) 200-62.5-25 mcg blister with device Discontinued 1 INH INHALATION DAILY 60 September 24, 2021 11:00pm May 18, 2022 12:49am Start: 09-25-2021 Fluticasone-Um eclidin-Vilanter (Trelegy Ellipta) 200-62.5-25 mcg blister with device Active 1 INH INHALATION DAILY 60 September 25, 2021 12:00am gabapentin 800 mg oral tablet (20 sources) Anti-epileptic Agent Start: 08-27-2024 take 1 tablet by mouth three times daily Gabapentin 800 mg tablet Active 800 mg PO THREE TIMES A DAY August 27, 2024 12:00am Start: 05-27-2024 End: 08-27-2024 Gabapentin 600 mg tablet Discontinued 800 mg PO THREE TIMES A DAY May 27, 2024 2:37pm August 27, 2024 4:46pm Start: 10-15-2023 End: 10-14-2024 take 1 tablet by mouth three times daily Gabapentin 600 mg tablet Discontinued 600 mg PO THREE TIMES A DAY November 25, 2023 12:00am May 27, 2024 2:37pm Start: 06-23-2023 End: 04-15-2025 take 1 tablet by mouth once daily Gabapentin 800 mg tablet Discontinued 800 mg PO daily September 24, 2023 12:00am November 25, 2023 11:01am Start: 06-30-2019 End: 09-24-2023 take 1 tablet by mouth three times daily Gabapentin 600 MG tablet Discontinued 600 mg PO THREE TIMES A DAY June 30, 2019 1:00am September 24, 2023 2:29pm nerve pain Start: 06-12-2017 End: 10-15-2023 gabapentin (NEURONTIN) 800 m g tablet 600 mg three times daily. from [facility] 06/12/2017 10/15/2023 Discontinued Start: 06-12-2017 End: 10-15-2023 gabapentin (NEURONTIN) 800 m g tablet 600 mg three times daily. from [facility] 0 06/12/2017 10/15/2023 Discontinued Start: 04-14-2017 End: 03-30-2019 take 1 tablet by mouth four times daily Gabapentin 800 MG tablet Discontinued 800 mg PO 4 TIMES DAILY April 14, 2017 12:00am March 30, 2019 2:29pm Headaches/Neck Comment on above: 600 mg three times d aily. from [facility] 12 hr guaiFENesin 1200 mg extended release oral tablet (20 sources) Start: 06-14-2024 End: 08-27-2024 take 1 tablet by mouth every twelve hours as needed for cough Guaifenesin 1,200 mg tablet extended release 12hr Active 1200 mg PO Q12H as needed for cough August 27, 2024 12:00am Start: 04-04-2018 End: 05-14-2018 take 1 tablet by mouth twice daily Guaifenesin 1,200 MG tablet Discontinued 1200 mg PO TWICE A DAY 14 0 April 04, 2018 12:00am May 14, 2018 1:53pm ibuprofen 200 mg oral tablet (19 sources) Nonsteroidal Anti-inflammatory Drug Start: 03-28-2024 Ibuprofen (Addaprin) 200 mg tablet Active 400 mg PO Q8H as needed for pain March 28, 2024 12:00am Start: 10-15-2023 take 2 tablets by mo uth every six hours as needed ibuprofen (MOTRIN) 200 mg tablet Take 2 tablets by mouth every 6 hours as needed for pain (Take with food.). 10/15/2023 Active Ipratropium Tony 42 mcg ( 0.06 %) spray,non-aerosol (4 sources) Start: 07-27-2024 Ipratropium Br omide 42 mcg (0.06 %) spray,non-aerosol Active 2 NMA INTRANASAL THREE TIMES A DAY July 27, 2024 1:00am administer into each nostril Start: 07-27-2024 Ipratropium Br omide 42 mcg (0.06 %) spray,non-aerosol Active 2 NMA INTRANASAL THREE TIMES A DAY July 27, 2024 1:00am administer into each nostril levETIRAcetam 500 mg oral tablet (20 sources) Start: 04-28-2020 End: 04-15-2025 take 1 tablet by mouth once daily Levetiracetam 500 MG tablet Active 500 mg PO DAILY April 28, 2020 2:19am Check with primary doctor Start: 04-28-2020 take 1000 mg by mout h once daily Levetiracetam Active 1000 MG PO DAILY April 28, 2020 2:19am Start: 07-02-2019 End: 04-28-2020 take 1 tablet by mouth twice daily Levetiracetam 500 MG tablet Discontinued 500 mg PO TWICE A DAY 60 0 August 24, 2019 4:36pm April 28, 2020 2:19am Comment on above: twice daily. Lgfcnqcl-Fxw-Me-Lyco pen-Lutein (5 sources) Start: 06-30-2019 take 1 tablet by mouth once daily Uoajogny-Uxg-Gt-Lyco pen-Lutein Active 1 TABLET PO DAILY June 30, 2019 3:14pm Start: 06-30-2019 take 1 tablet by george th once daily Mmaqlsay-Xih-Ac-Lycopen-Lutein Active 1 TABLET PO DAILY June 30, 2019 12:00am Start: 06-30-2019 take 1 tablet by george th once daily Pldezufo-Flq-Uk-Lycopen-Lutein Active 1 TABLET PO DAILY June 30, 2019 1:00am multivitamin tablet (20 sources) take 1 tablet by george th once daily multivitamin tablet Indications: Cervicalgia , DDD (degenerative disc disease), cervical , Cervical spondylosis Take 1 tablet by mouth once daily. Active take 1 tablet by mouth once moo y multivitamin tablet Indications: Cervicalgia , DDD (degenerative disc disease), cervical , Cervical spondylosis Take 1 tablet by mouth once daily. 0 Active Comment on above: Take 1 tablet by george th once daily. Md-Oyv-Ykeey-K1-Lyc open-Lutein (5 sources) Start: 06-30-2019 take 1 tablet by mouth once daily Tf-Njt-Dpnip-K1-Ly copen-Lutein Active 1 TABLET PO DAILY June 30, 2019 12:00am Start: 06-30-2019 take 1 tablet by george th once daily Cq-Alb-Bhmoz-O7-Chgugrn-Tcgini Active 1 TABLET PO DAILY June 30, 2019 1:00am Nicotine (16 sources) Cholinergic Nicotinic Agonist Start: 09-25-2021 apply 1 dose transdermal route once daily, then apply 1 dose transdermal route once daily Nicotine Active 0 TD .COMPLEX 56 September 25, 2021 10:04am apply 1-21 mg NICOTINE PATCH daily for 28 days; follow with 1-14 mg PATCH daily for 14 days, then 1-7mg PATCH daily for 14 days transdermal Start: 09-25-2021 apply 1 dose transde rmal route once daily, then apply 1 dose transdermal route once daily Nicotine Active 0 TD .COMPLEX 56 September 25, 2021 12:00am apply 1-21 mg NICOTINE PATCH daily for 28 days; follow with 1-14 mg PATCH daily for 14 days, then 1-7mg PATCH daily for 14 days transdermal Start: 08-18-2017 End: 10-27-2017 apply 1 dose transdermal route every twenty-four hours Nicotine 14 mg/24 hr patch 24 hour Discontinued 14 mg TD daily 30 August 18, 2017 1:00am October 27, 2017 1:09pm Start: 08-18-2017 End: 10-27-2017 Nicotine Discontinued 14 MG TD daily August 18, 2017 1:00am October 27, 2017 1:09pm omeprazole 40 mg delayed release oral capsule (20 sources) Proton Pump Inhibitor Start: 09-19-2021 take 1 capsule by mouth once daily before breakfast omeprazole (PRILOSEC) 40 mg capsule Take 1 capsule by mouth daily before breakfast. 1/2 hr before meal. 30 capsule 5 09/19/2021 Active Start: 06-30-2019 End: 03-28-2024 take 2 capsules by mouth once daily Omeprazole 20 MG capsule,delayed release(DR/EC) Discontinued 40 mg PO DAILY June 30, 2019 1:00am March 28, 2024 5:19pm gerd Start: 06-30-2019 take 40 mg by mouth once daily Omeprazole Active 40 MG PO DAILY June 30, 2019 1:00am Start: 05-19-2013 End: 08-19-2017 take 4 capsules by mouth once daily Omeprazole 10 MG capsule Discontinued 40 mg PO DAILY May 19, 2013 1:00am August 19, 2017 4:35pm Start: 05-19-2013 End: 08-19-2017 take 40 mg by mouth once daily Omeprazole Discontinued 40 MG PO DAILY May 19, 2013 1:00am August 19, 2017 4:35pm Comment on above: Take 1 capsule by [facility] daily before breakfast. 1/2 hr before meal. polymyxin b [id number] unt/ml / trimethoprim 1 mg/ml ophthalmic solution (1 source) Dihydrofolate Reductase Inhibitor Antibacterial, Polymyxin-class Antibacterial Start: 4 End: 4 take 1-2 drop(s) into the eye(s) every four hours trimethoprim-polym yxin (POLYTRIM) 10,000 unit- 1 mg/mL ophthalmic solution Use 1-2 Drops in both eyes every 4 hours for 7 days. While awake 10 mL 02/03/2024 02/10/2024 Active predniSONE 10 mg oral tablet (20 sources) Start: 5 End: 5 take 4 tablets by mouth once daily predniSONE (DELTASONE) 10 mg tablet Take 4 tablets by mouth once daily for 5 days. 20 tablet 07/08/2024 07/13/2024 Active Start: 05-19-2024 End: 05-31-2024 predniSONE (DELTASONE) 10 mg tablet Indications: COPD with exacerbation (HCC) Take 6 tabs for 3 days, then 4 tabs for 3 days, then 2 tabs for 3 days then 1 tab for 3 days with food. 39 tablet 05/19/2024 05/31/2024 Active Start: 02-22-2024 End: 02-27-2024 take 2 tablets by mouth once daily predniSONE (DELTASONE) 20 mg tablet Take 2 tablets by mouth once daily for 5 days. 10 tablet 02/22/2024 02/27/2024 Active Start: 10-21-2023 End: 11-25-2023 take 2 tablets by mouth once daily Prednisone 20 mg tablet Discontinued 40 mg PO DAILY 20 October 21, 2023 12:00am November 25, 2023 11:00am Start: 10-21-2023 take 40 mg by mouth once daily Prednisone Active 40 MG PO DAILY 20 October 21, 2023 12:00am Start: 10-06-2023 End: 11-25-2023 Prednisone 10 mg tablet Disc ontinued 10 mg PO daily October 06, 2023 12:00am November 25, 2023 11:01am take 4 tabs for three days, then 3 tabs for three days, then 2 tabs for three days, then 1 tab for 3 days Start: 04-15-2022 End: 04-20-2022 take 2 tablets by mouth once daily predniSONE (DELTASONE) 20 mg tablet Take 2 tablets by mouth once daily for 5 days. 10 tablet 0 04/15/2022 04/20/2022 Active Start: 08-28-2021 Prednisone Act farzad 10 MG PO daily August 28, 2021 3:03pm take 4 tabs for three days, then 3 tabs for three days, then 2 tabs for three days, then 1 tab for 3 days Start: 08-21-2021 End: 08-28-2021 take 2 tablets by mouth once daily Prednisone 20 mg tablet Discontinued 40 mg PO DAILY August 21, 2021 1:00am August 28, 2021 3:03pm Start: 08-21-2021 End: 08-28-2021 take 40 mg by mouth once daily Prednisone Discontinued 40 MG PO DAILY August 21, 2021 1:00am August 28, 2021 3:03pm Start: 08-24-2019 End: 09-05-2019 Prednisone 10 MG tablet Disc ontinued 10 mg PO DAILY August 24, 2019 12:00am September 04, 2019 12:00am September 05, 2019 12:08am take 4 tabs x 3 days then 3 tabs x 3 days then 2 tabs x 3 days then 1 tab daily Start: 04-20-2018 End: 05-14-2018 Prednisone 10 mg tablet Disc ontinued 10 mg PO daily April 20, 2018 1:00am May 14, 2018 1:53pm take 4 tabs for three days, then 3 tabs for three days, then 2 tabs for three days, then 1 tab for 3 days Start: 04-04-2018 End: 04-20-2018 Prednisone 10 MG tablet Disc ontinued 10 mg PO DIRECTED April 04, 2018 12:00am April 20, 2018 1:52pm TAKE 4 TABLETS BY MOUTH DAILY WITH FOOD FOR 3 DAYS, THEN TAKE 3 TABLETS BY MOUTH DAILY WITH FOOD FOR 3 DAYS, THEN TAKE 2 TABLETS BY MOUTH DAILY WITH FOOD FOR 3 DAYS, THEN TAKE 1 TABLETS BY MOUTH DAILY WITH FOOD FOR 3 DAYS, THEN STOP Start: 08-18-2017 End: 10-27-2017 Prednisone 10 mg tablet Disc ontinued 10 mg PO daily August 18, 2017 1:00am October 27, 2017 1:09pm take 4 tabs for three days, then 3 tabs for three days, then 2 tabs for three days, then 1 tab for 3 days Comment on above: Take 2 tablets by [facility] once daily for 5 days. sulfamethoxazole 800 mg / trimethoprim 160 mg oral tablet (2 sources) Dihydrofolate Reductase Inhibitor Antibacterial, Sulfonamide Antimicrobial Start: End: take 1 tablet by mouth twice daily sulfamethoxazole -trimethoprim (BACTRIM DS) 800-160 mg per tablet Indications: Burning with urination Take 1 tablet by mouth two times a day for 7 days. 14 tablet 09/20/2024 09/27/2024 Active Trelegy Ellipta 200-62.5-25 MCG/ACT aerosol powder (3 sources) Start: take 1 puff(s) by inhalation once daily Trelegy Ellipta 200-62.5-25 MCG/ACT aerosol powder INHALE 1 (ONE) PUFF DAILY 10/23/2022 Active Start: 10-23-2022 take 1 puff(s) by in halation once daily Trelegy Ellipta 200-62.5-25 MCG/ACT aerosol [...] day. Prescribed by neurology 10/15/2023 Active Start: 10-10-2023 End: 04-15-2025 take 3 tablets by mouth twice daily Divalproex 250 mg tablet,delayed release (DR/EC) Active 750 mg PO TWICE A DAY March 28, 2024 12:00am Start: 07-02-2019 End: 05-18-2022 Divalproex 500 MG tablet,del ayed release (DR/EC) Discontinued 750 mg PO TWICE A DAY 90 0 July 02, 2019 1:00am May 18, 2022 1:49am Start: 07-02-2019 End: 12-03-2022 take 750 mg by mouth twice daily Divalproex Active 750 MG PO TWICE A DAY May 18, 2022 1:48am Start: 04-03-2018 End: 07-02-2019 Divalproex 500 MG tablet ext ended release 24 hr Discontinued 1500 mg PO DAILY April 03, 2018 6:43am July 02, 2019 10:43am seizures Start: 04-03-2018 End: 07-02-2019 take 1500 mg by mouth once daily Divalproex Discontinued 1500 MG PO DAILY April 03, 2018 6:43am July 02, 2019 10:43am Start: 08-20-2017 End: 10-15-2023 take 1 tablet by mouth twice daily divalproex DR (DEPAKOTE) 500 mg EC tablet Indications: Seizure disorder (HCC) Take 1 tablet by mouth twice daily. 60 tablet 1 08/20/2017 10/15/2023 Discontinued Start: 07-13-2017 End: 04-03-2018 take 2 tablets by mouth once daily Divalproex 500 MG tablet extended release 24 hr Discontinued 1000 mg PO DAILY 60 0 July 13, 2017 1:00am April 03, 2018 6:43am take 2 tablets Once daily Start: 12-05-2016 End: 07-13-2017 take 1 tablet by mouth three times daily Divalproex 250 MG tablet Discontinued 250 mg PO THREE TIMES A DAY December 05, 2016 12:00am July 13, 2017 11:56am take 3 tablets by mo [facility] in the morning divalproex (Depakote) 250 MG EC tablet Take 750 mg by mouth in the morning and 750 mg before bedtime. Do not crush, chew, or split. . 0 Active Comment on above: Take 1 tablet by george twice daily. Completed/Discontinued Medications Medication Drug Class(es) [...] by mouth every six hours as needed Tmsinxy-Llrjqlkwqyzxu-Chjpgdvu 250-250-65 mg per tablet Take 6 tablets by mouth every 6 hours as needed. 10/15/2023 Discontinued (Discontinued by Patient) Comment on above: Take 6 tablets by mouth every 6 hours as needed. [id number] 200 actuat albuterol 0.09 mg/actuat metered dose inhaler (20 sources) beta2-Adrenergic Agonist Start: 10-21-2023 End: 04-15-2024 take 2.5 mg by inhalation every four hours as needed for wheezing Albuterol Sulfate 2.5 mg /3 mL (0.083 %) solution for nebulization Discontinued 2.5 mg INHALATION EVERY 4 HOURS NEEDED 120 4 March 24, 2024 8:43am April 15, 2024 10:33am Stage 4 very severe COPD by GOLD classification Chronic obstructive pulmonary disease, unspecified Use q4 hours and PRN for wheezing Start: 10-22-2022 take 2 puff(s) by in halation every four hours as needed albuterol HFA 90 mcg/act inhaler INHALE 2 (TWO) PUFFS EVERY 4 HOURS NEEDED SHORTNESS OF BREATH; ADMINISTER WITH SPACER 10/22/2022 Active Start: 04-15-2022 take 2.5 mg by inhal ation every four hours as needed albuterol (PROVENTIL) 2.5 mg /3 mL (0.083 %) nebulizer solution Use 3 mL via nebulizer every 4 hours as needed for wheezing/shortness of breath. Use over 5-15minutes. 36 mL 3 04/15/2022 Active Start: 07-09-2021 take 1 puff(s) by in halation every four hours as needed Albuterol Sulfate Active 2 PUFF INHALATION EVERY 4 HOURS NEEDED July 09, 2021 10:56am Start: 02-04-2019 End: 07-27-2024 Albuterol Sulfate 90 mcg/act uation HFA aerosol inhaler Discontinued 2 NMA INHALATION Q4H as needed for shortness of breath or wheezing 8.5 April 15, 2024 10:32am July 27, 2024 5:13pm administer with spacer Start: 02-04-2019 End: 09-24-2023 take 1 puff(s) by inhalation every four hours as needed Albuterol Sulfate Discontinued 2 PUFF INHALATION EVERY 4 HOURS NEEDED July 09, 2021 10:56am September 24, 2023 2:28pm Start: 10-29-2018 End: 02-04-2019 take 1 puff(s) by inhalation every four hours as needed Albuterol Sulfate Discontinued 2 PUFF INHALATION EVERY 4 HOURS NEEDED October 29, 2018 7:35am February 04, 2019 9:48am Start: 10-29-2018 End: 02-04-2019 take 1 puff(s) by inhalation every four hours as needed Albuterol Sulfate Discontinued 2 PUFF INHALATION EVERY 4 HOURS NEEDED October 29, 2018 8:35am February 04, 2019 10:48am Start: 04-04-2018 End: 10-29-2018 Albuterol Sulfate 1 INHALER inhaler Discontinued 2 NMA INHALATION EVERY 4 HOURS NEEDED as needed for sob/wheezing 1 April 04, 2018 9:45am October 29, 2018 8:36am Start: 04-04-2018 End: 10-29-2018 take 1 puff(s) by inhalation every four hours as needed Albuterol Sulfate Discontinued 2 PUFF INHALATION EVERY 4 HOURS NEEDED April 04, 2018 9:45am October 29, 2018 8:36am Start: 04-04-2018 End: 10-29-2018 take 1 puff(s) by inhalation every four hours as needed Albuterol Sulfate Discontinued 2 PUFF INHALATION EVERY 4 HOURS NEEDED April 04, 2018 9:45am October 29, 2018 8:36am Start: 07-02-2017 End: 04-15-2022 albuterol (PROVENTIL) 5 [...] Breath. 1 Inhaler 12 01/14/2017 Active Start: 09-11-2016 End: 10-27-2017 Albuterol Sulfate 5 MG/ML so lution Discontinued 5 mg IH NEEDED as needed for Sob &/Or Wheezing September 11, 2016 12:00am October 27, 2017 1:09pm Start: 09-11-2016 End: 02-03-2018 Albuterol Sulfate 1 INHALER inhaler Discontinued 2 NMA INHALATION EVERY 4 HOURS NEEDED as needed for Sob &/Or Wheezing September 11, 2016 12:00am February 03, 2018 10:49am Start: 09-11-2016 End: 10-27-2017 Albuterol Sulfate Discontinu ed 5 MG IH NEEDED September 11, 2016 12:00am October 27, 2017 1:09pm Start: 09-11-2016 End: 02-03-2018 take 1 puff(s) by inhalation every four hours as needed Albuterol Sulfate Discontinued 2 PUFF INHALATION EVERY 4 HOURS NEEDED September 11, 2016 12:00am February 03, 2018 10:49am Start: 09-02-2016 End: 04-15-2023 albuterol (PROVENTIL) 5 [...] for wheezing/shortness of breath. Use over 5-15minutes. Albuterol Sulfate 90 mcg/actuation HFA aerosol inhaler (4 sources) Start: 10-29-2018 End: 02-04-2019 Albuterol Sulfate 90 mcg/actuation HFA aerosol inhaler Discontinued 2 NMA INHALATION EVERY 4 HOURS NEEDED as needed for sob/wheezing 1 October 29, 2018 8:35am February 04, 2019 10:48am Start: 10-29-2018 End: 02-04-2019 Albuterol Sulfate 90 mcg/act uation HFA aerosol inhaler Discontinued 2 NMA INHALATION EVERY 4 HOURS NEEDED as needed for sob/wheezing 1 October 29, 2018 8:35am February 04, 2019 10:48am amitriptyline hydrochloride 100 mg oral tablet (20 sources) Tricyclic Antidepressant Start: 01-13-2019 End: 04-15-2025 take 1 tablet by mouth at bedtime Amitriptyline 100 MG tablet Discontinued 100 mg PO AT BEDTIME June 30, 2019 1:00am July 27, 2024 1:56pm sleep Comment on above: Take 1 tablet by geogre th daily at bedtime. aspirin 81 mg delayed release oral tablet (11 sources) Platelet Aggregation Inhibitor, Nonsteroidal Anti-inflammatory Drug Start: 02-06-2018 End: 10-15-2023 take 1 tablet by mouth once daily aspirin, enteric coated (ASPIRIN, ENTERIC COATED) 81 mg EC tablet Indications: Cervical spondylosis without myelopathy Take 81 mg by mouth once daily. 02/06/2018 10/15/2023 Discontinued (Discontinued by Patient) Comment on above: Take 1 tablet by george th once daily. Take 81 mg by mouth once daily. Fluticasone Propion-Salmeterol (14 sources) Corticosteroid, beta2-Adrenergic Agonist Start: 12-05-2016 End: 08-19-2017 take 1 puff(s) by inhalation twice daily Fluticasone Propion-Salmeterol Discontinued 1 PUFF INHALATION TWICE A DAY December 05, 2016 4:05pm August 19, 2017 4:37pm Start: 12-05-2016 End: 08-19-2017 take 1 dose by inhalation twice daily Fluticasone Propion-Salmeterol 1 EACH blister with device Discontinued 1 NMA INHALATION TWICE A DAY December 05, 2016 12:00am August 19, 2017 4:37pm Start: 12-05-2016 End: 08-19-2017 take 1 puff(s) by inhalation twice daily Fluticasone Propion-Salmeterol Discontinued 1 PUFF INHALATION TWICE A DAY December 04, 2016 11:00pm August 19, 2017 3:37pm Start: 12-05-2016 End: 08-19-2017 take 1 puff(s) by inhalation twice daily Fluticasone Propion-Salmeterol Discontinued 1 PUFF INHALATION TWICE A DAY December 05, 2016 12:00am August 19, 2017 4:37pm Iiaunjqgafq-Lbjpmweoz-Zgcqas er (20 sources) Anticholinergic, Corticosteroid, beta2-Adrenergic Agonist Start: 03-12-2021 End: 09-25-2021 Bjdpatshhul-Pvzunksao-Qbpvnw er (Trelegy Ellipta) 100-62.5-25 mcg blister with device Discontinued 1 NMA INHALATION daily 60 6 March 12, 2021 11:02am September 25, 2021 10:03am Chronic obstructive pulmonary disease, unspecified administer at approximately the same time(s) each day Start: 03-12-2021 End: 09-25-2021 Gchxgslvedb-Cxamhdwgw-Hpbxhh er (Trelegy Ellipta) 100-62.5-25 mcg blister with device Discontinued 1 NMA INHALATION daily 60 March 12, 2021 11:02am September 25, 2021 10:03am administer at approximately the same time(s) each day Start: 03-12-2021 End: 09-25-2021 Bvvbvakhmal-Vuyxbsadx-Eidbsm er (Trelegy Ellipta) 100-62.5-25 mcg blister with device Discontinued 1 INH INHALATION daily 60 March 12, 2021 10:02am September 25, 2021 9:03am administer at approximately the same time(s) each day Start: 03-12-2021 End: 09-25-2021 Uoatsclhmbb-Npchldeme-Lsnpkh er (Trelegy Ellipta) 100-62.5-25 mcg blister with device Discontinued 1 INH INHALATION daily 60 March 12, 2021 11:02am September 25, 2021 10:03am administer at approximately the same time(s) each day Start: 03-09-2021 take 1 puff(s) by inhalation once daily udqsmazmned-fzzaklryh-yjpchtmb (TRELEGY ELLIPTA) 100-62.5-25 mcg Inhale 1 Puff as instructed once daily. 1 Each 5 03/09/2021 Active Start: 07-05-2020 End: 03-12-2021 Mobfdykpmmw-Smlwavccq-Cgoxtb er (Trelegy Ellipta) 100-62.5-25 mcg blister with device Discontinued 1 NMA INHALATION daily 60 July 05, 2020 11:33am March 12, 2021 11:03am Chronic obstructive pulmonary disease, unspecified administer at approximately the same time(s) each day Start: 07-05-2020 End: 03-12-2021 Deazrfvmzum-Npbctpqnv-Zkorqn er (Trelegy Ellipta) 100-62.5-25 mcg blister with device Discontinued 1 NMA INHALATION daily 60 July 05, 2020 11:33am March 12, 2021 11:03am administer at approximately the same time(s) each day Start: 07-05-2020 End: 03-12-2021 Dklceknfqvn-Cwjhrjcsh-Rcaahx er (Trelegy Ellipta) 100-62.5-25 mcg blister with device Discontinued 1 INH INHALATION daily 60 July 05, 2020 10:33am March 12, 2021 10:03am administer at approximately the same time(s) each day Start: 07-05-2020 End: 03-12-2021 Sdiohmkxzlo-Lttxjjarh-Hqvggi er (Trelegy Ellipta) 100-62.5-25 mcg blister with device Discontinued 1 INH INHALATION daily 60 July 05, 2020 11:33am March 12, 2021 11:03am administer at approximately the same time(s) each day Start: 12-22-2019 End: 07-05-2020 Lcsrnhersht-Noxxlqvoc-Qfdpgb er (Trelegy Ellipta) 100-62.5-25 mcg blister with device Discontinued 1 NMA INHALATION daily 60 December 22, 2019 9:36am July 05, 2020 11:36am Chronic obstructive pulmonary disease, unspecified administer at approximately the same time(s) each day Start: 12-22-2019 End: 07-05-2020 Bcanxuznqlb-Tnsotbfek-Npabga er (Trelegy Ellipta) 100-62.5-25 mcg blister with device Discontinued 1 NMA INHALATION daily December 22, 2019 9:36am July 05, 2020 11:36am administer at approximately the same time(s) each day Start: 12-22-2019 End: 07-05-2020 Rnljnctvhrv-Bsufdhcvf-Hupjse er (Trelegy Ellipta) 100-62.5-25 mcg blister with device Discontinued 1 INH INHALATION daily 60 December 22, 2019 8:36am July 05, 2020 10:36am administer at approximately the same time(s) each day Start: 12-22-2019 End: 07-05-2020 Zpbbjtmwcpm-Nsysdnljw-Vbspwu er (Trelegy Ellipta) 100-62.5-25 mcg blister with device Discontinued 1 INH INHALATION daily 60 December 22, 2019 9:36am July 05, 2020 11:36am administer at approximately the same time(s) each day Start: 09-06-2019 End: 12-22-2019 Axvfmkrragm-Cguchbxfn-Otkdqd er (Trelegy Ellipta) 100-62.5-25 mcg blister with device Discontinued 1 INH INHALATION daily 60 September 06, 2019 9:53am December 22, 2019 9:39am administer at approximately the same time(s) each day Start: 09-06-2019 End: 12-22-2019 Qohaoutsptj-Olgbebgml-Fnwgwe er (Trelegy Ellipta) 100-62.5-25 mcg blister with device Discontinued 1 NMA INHALATION daily 60 3 September 06, 2019 12:00am December 22, 2019 9:39am Chronic obstructive pulmonary disease, unspecified administer at approximately the same time(s) each day Start: 09-06-2019 End: 12-22-2019 Ehysganjlhk-Uodqyrtka-Qtyxil er (Trelegy Ellipta) 100-62.5-25 mcg blister with device Discontinued 1 NMA INHALATION daily 60 September 06, 2019 12:00am December 22, 2019 9:39am administer at approximately the same time(s) each day Start: 09-06-2019 End: 12-22-2019 Xmoxwriygzs-Baeavyovu-Zzhhzx er (Trelegy Ellipta) 100-62.5-25 mcg blister with device Discontinued 1 INH INHALATION daily 60 September 05, 2019 11:00pm December 22, 2019 8:39am administer at approximately the same time(s) each day Start: 09-06-2019 End: 12-22-2019 Fbbqqadkple-Epjagzahv-Vljoxm er (Trelegy Ellipta) 100-62.5-25 mcg blister with device Discontinued 1 INH INHALATION daily 60 September 06, 2019 12:00am December 22, 2019 9:39am administer at approximately the same time(s) each day Start: 06-07-2019 End: 06-14-2019 Tgqwrfrhvis-Tjgbqllmn-Osjmlv er (Trelegy Ellipta) 100-62.5-25 mcg blister with device Discontinued 1 NMA INHALATION daily 3 3 June 07, 2019 4:51pm June 14, 2019 11:08am Chronic obstructive pulmonary disease, unspecified administer at approximately the same time(s) each day Start: 06-07-2019 End: 06-14-2019 Szewialvers-Kamvifpcc-Pecbbf er (Trelegy Ellipta) 100-62.5-25 mcg blister with device Discontinued 1 NMA INHALATION daily June 07, 2019 4:51pm June 14, 2019 11:08am administer at approximately the same time(s) each day Start: 06-07-2019 End: 06-14-2019 Yiohyoeddgm-Affvkbvpv-Qgjzjx er (Trelegy Ellipta) 100-62.5-25 mcg blister with device Discontinued 1 INH INHALATION daily June 07, 2019 3:51pm June 14, 2019 10:08am administer at approximately the same time(s) each day Start: 06-07-2019 End: 06-14-2019 Fgzavxzzabk-Rxxzwgyzm-Qwoomj er (Trelegy Ellipta) 100-62.5-25 mcg blister with device Discontinued 1 INH INHALATION daily June 07, 2019 4:51pm June 14, 2019 11:08am administer at approximately the same time(s) each day Start: 04-20-2018 End: 06-07-2019 Skjmyldvgae-Wzlmomlfw-Ocyeyv er (Trelegy Ellipta) 100-62.5-25 mcg blister with device Discontinued 1 NMA INHALATION daily 3 April 20, 2018 2:04pm June 07, 2019 4:52pm Chronic obstructive pulmonary disease, unspecified administer at approximately the same time(s) each day Start: 04-20-2018 End: 06-07-2019 Vuzoflvzgyg-Efxctaqvr-Izfhws er (Trelegy Ellipta) 100-62.5-25 mcg blister with device Discontinued 1 NMA INHALATION daily April 20, 2018 2:04pm June 07, 2019 4:52pm administer at approximately the same time(s) each day Start: 04-20-2018 End: 06-07-2019 Xkbgyeosrxk-Fcolegrwn-Sedmmk er (Trelegy Ellipta) 100-62.5-25 mcg blister with device Discontinued 1 INH INHALATION daily April 20, 2018 1:04pm June 07, 2019 3:52pm administer at approximately the same time(s) each day Start: 04-20-2018 End: 06-07-2019 Bbjbdckknot-Xcljgxzea-Cgzqrn er (Trelegy Ellipta) 100-62.5-25 mcg blister with device Discontinued 1 INH INHALATION daily April 20, 2018 2:04pm June 07, 2019 4:52pm administer at approximately the same time(s) each day Start: 02-03-2018 End: 04-20-2018 Omagnydvloj-Zcchrhtsa-Ywhjhl er (Trelegy Ellipta) 100-62.5-25 mcg blister with device Discontinued 1 NMA INHALATION daily 3 February 03, 2018 10:49am April 20, 2018 2:04pm Chronic obstructive pulmonary disease, unspecified administer at approximately the same time(s) each day Start: 02-03-2018 End: 04-20-2018 Mfskystcrrh-Ynhrxdcme-Mrgexe er (Trelegy Ellipta) 100-62.5-25 mcg blister with device Discontinued 1 NMA INHALATION daily February 03, 2018 10:49am April 20, 2018 2:04pm administer at approximately the same time(s) each day Start: 02-03-2018 End: 04-20-2018 Cccnskiobsu-Opsguvome-Okuzpx er (Trelegy Ellipta) 100-62.5-25 mcg blister with device Discontinued 1 INH INHALATION daily February 03, 2018 9:49am April 20, 2018 1:04pm administer at approximately the same time(s) each day Start: 02-03-2018 End: 04-20-2018 Oqpchvtwzhh-Mabjwtrsk-Zridzb er (Trelegy Ellipta) 100-62.5-25 mcg blister with device Discontinued 1 INH INHALATION daily February 03, 2018 10:49am April 20, 2018 2:04pm administer at approximately the same time(s) each day Start: 07-28-2017 End: 02-03-2018 Vykelgibknf-Vmapufpni-Oyaksu er (Trelegy Ellipta) 100-62.5-25 mcg blister with device Discontinued 1 INH INHALATION daily July 28, 2017 1:13pm February 03, 2018 10:49am administer at approximately the same time(s) each day Start: 07-28-2017 End: 02-03-2018 Lomlqdnstzi-Zigcvpvbw-Fktkjn er (Trelegy Ellipta) 100-62.5-25 mcg blister with device Discontinued 1 NMA INHALATION daily 3 July 28, 2017 1:00am February 03, 2018 10:49am Chronic obstructive pulmonary disease, unspecified administer at approximately the same time(s) each day Start: 07-28-2017 End: 02-03-2018 Mvgqslmkxrg-Nlabtsbbu-Qblvcu er (Trelegy Ellipta) 100-62.5-25 mcg blister with device Discontinued 1 NMA INHALATION daily July 28, 2017 1:00am February 03, 2018 10:49am administer at approximately the same time(s) each day Start: 07-28-2017 End: 02-03-2018 Ugkcolxwbnh-Ylzddtbaj-Kyjrdq er (Trelegy Ellipta) 100-62.5-25 mcg blister with device Discontinued 1 INH INHALATION daily July 28, 2017 12:00am February 03, 2018 9:49am administer at approximately the same time(s) each day Start: 07-28-2017 End: 02-03-2018 Qhowkpgalnz-Wpkpgidwg-Gwzvfi er (Trelegy Ellipta) 100-62.5-25 mcg blister with device Discontinued 1 INH INHALATION daily July 28, 2017 1:00am February 03, 2018 10:49am administer at approximately the same time(s) each day Comment on above: Inhale 1 Puff as ins tructed once daily. Fluticasone Furoate-Vilanterol (14 sources) Corticosteroid, beta2-Adrenergic Agonist Start: 06-30-2019 End: 09-06-2019 Fluticasone Furoate-Vilanterol Discontinued 1 INH INHALATION DAILY June 30, 2019 3:14pm September 06, 2019 9:53am Start: 06-30-2019 End: 09-06-2019 take 1 dose by inhalation once daily Fluticasone Furoate-Vilanterol 1 EACH blister with device Discontinued 1 NMA INHALATION DAILY June 30, 2019 1:00am September 06, 2019 9:53am sob Start: 06-30-2019 End: 09-06-2019 take 1 dose by inhalation once daily Fluticasone Furoate-Vilanterol 1 EACH blister with device Discontinued 1 NMA INHALATION DAILY June 30, 2019 1:00am September 06, 2019 9:53am Start: 06-30-2019 End: 09-06-2019 Fluticasone Furoate-Vilanter ol Discontinued 1 INH INHALATION DAILY June 30, 2019 12:00am September 06, 2019 8:53am Start: 06-30-2019 End: 09-06-2019 Fluticasone Furoate-Vilanter ol Discontinued 1 INH INHALATION DAILY June 30, 2019 1:00am September 06, 2019 9:53am hydrOXYzine hydrochloride 25 mg oral tablet (3 [...] on above: Take 1 tablet by george every 6 hours as needed for anxiety (anxiety/insomnia). levoFLOXacin 500 mg oral tablet (20 sources) Quinolone Antimicrobial Start: 05-19-2022 End: 09-24-2023 take 1 tablet by mouth once daily Levofloxacin 500 mg tablet Discontinued 500 mg PO DAILY 7 0 May 19, 2022 1:00am September 24, 2023 2:29pm take one daily starting 05/19/22 Start: 08-24-2019 End: 08-29-2019 take 1 tablet by mouth once daily Levofloxacin 750 MG tablet Discontinued 750 mg PO DAILY 5 5 0 August 24, 2019 12:00am August 28, 2019 12:00am August 29, 2019 12:08am Start: 06-04-2019 End: 06-10-2019 take 1 tablet by mouth once daily Levofloxacin 500 MG tablet Discontinued 500 mg PO DAILY 6 6 June 04, 2019 1:00am June 09, 2019 1:00am June 10, 2019 1:08am start 06/05/19 (already had 1st dose) Start: 04-04-2018 End: 04-20-2018 take 1 tablet by mouth once daily Levofloxacin 500 MG tablet Discontinued 500 mg PO DAILY April 04, 2018 12:00am April 20, 2018 1:52pm multivitamin (DAILY MULTI-VITAMIN) ORAL tablet (1 source) take 1 tablet by mouth once daily multivitamin (DAILY MULTI-VITAMIN) ORAL tablet Indications: Cervicalgia , DDD (degenerative disc disease), cervical , Cervical spondylosis Take 1 tablet by mouth once daily. 0 Active Comment on above: Take 1 tablet by george once daily. mupirocin 0.02 mg/mg topical ointment (9 sources) RNA Synthetase Inhibitor Antibacterial Start: 03-10-20 End: 04-07-20 mupirocin (BACTROBAN) 2 % ointment Indications: Skin lesion Apply 1 application to affected area three times daily. 1 Tube 1 03/10/2019 04/07/2023 Discontinued Comment on above: Apply 1 application to affected area three times daily. Ad-Erb-Znpzy-K1-Lycope n-Lutein 1 EACH tablet (4 sources) Start: 06-30-19 End: 03-28-20 take 1 tablet by mouth once daily Ql-Ies-Erbvi-K1-Lycop en-Lutein 1 EACH tablet Discontinued 1 {tbl} PO DAILY June 30, 2019 1:00am March 28, 2024 5:18pm supplement Start: 06-30-2019 End: 03-28-2024 take 1 tablet by mouth once daily To-Qof-Qcdyg-D6-Shfoszp-Fmnwoh 1 EACH ta blet Discontinued 1 {tbl} PO DAILY June 30, 2019 1:00am March 28, 2024 5:18pm naproxen 500 mg oral tablet (13 sources) Nonsteroidal Anti-inflammatory Drug Start: 03-10-2022 End: 03-28-2024 take 1 tablet by mouth twice daily as needed for pain Naproxen (Naprosyn) 500 mg tablet Discontinued 500 mg PO TWICE A DAY as needed for pain 20 0 March 10, 2022 12:00am March 28, 2024 5:19pm OLANZapine 15 mg oral tablet (14 sources) Atypical Antipsychotic Start: 02-09-2021 End: 10-15-2023 [...] above: Take 1 tablet by george th once daily. QUEtiapine 200 mg oral tablet (20 sources) Atypical Antipsychotic Start: 04-28-2020 End: 03-28-2024 take 1 tablet by mouth at bedtime Quetiapine 200 MG tablet Discontinued 200 mg PO AT BEDTIME April 28, 2020 1:00am March 28, 2024 5:19pm Check with primary doctor Start: 12-05-2016 End: 07-02-2019 take 1 tablet by mouth three times daily as needed for anxiety Quetiapine 25 mg tablet Discontinued 25 mg PO 3 TIMES DAILY NEEDED as needed for Anxiety December 05, 2016 12:00am July 02, 2019 10:46am raNITIdine 150 mg oral tablet (14 sources) Histamine-2 Receptor Antagonist Start: 12-05-2016 End: 08-19-2017 take 1 tablet by mouth at bedtime Ranitidine Hcl 150 MG tablet Discontinued 150 mg PO AT BEDTIME December 05, 2016 12:00am August 19, 2017 4:36pm ACID REFLUX sertraline 50 mg oral tablet (20 sources) Serotonin Reuptake Inhibitor Start: 06-30-2019 End: 10-13-2024 take 1 tablet by mouth once daily Sertraline 50 MG tablet Discontinued 50 mg PO DAILY June 30, 2019 1:00am March 28, 2024 5:19pm anxiety Comment on above: Take 1 tablet by mouth once daily. sildenafil 50 mg oral tablet (11 sources) Phosphodiesterase 5 Inhibitor Start: 03-10-2019 End: 10-15-2023 sildenafil (VIAGRA) 50 mg tablet Indications: Erectile dysfunction, unspecified erectile dysfunction type Take 1 tablet by mouth as needed. 15 tablet 2 03/10/2019 10/15/2023 Discontinued (Discontinued by Patient) Comment on above: Take 1 tablet by mouth as needed. topiramate 25 mg oral tablet (14 sources) Start: 03-17-2019 End: 03-30-2019 Topiramate 25 MG tablet Discontinued 50 mg TWICE A DAY March 17, 2019 12:00am March 30, 2019 2:30pm Start: 03-17-2019 End: 03-30-2019 Topiramate Discontinued 50 M G TWICE A DAY March 17, 2019 12:00am March 30, 2019 2:30pm triamcinolone acetonide 40 mg/ml injectable suspension (1 source) Corticosteroid Start: 04-20-2018 End: 04-20-2018 inject 60 mg by intramuscular injection once Kenalog (triamcinolone acetonide) 40 mg/mL suspension for injection Discontinued 60 MG IM ONCE 1.5 April 20, 2018 1:33pm April 20, 2018 2:23pm 30 actuat umeclidinium 0.0625 mg/actuat dry powder inhaler (20 sources) Anticholinergic Start: 06-30-2019 End: 09-06-2019 take 62.5 ug by inhalation once daily Umeclidinium 62.5 MCG blister with device Discontinued 1 NMA INHALATION DAILY June 30, 2019 1:00am September 06, 2019 9:53am sob Start: 06-30-2019 End: 09-06-2019 take 1 puff(s) by inhalation once daily Umeclidinium Discontinued 1 PUFF INHALATION DAILY June 30, 2019 1:00am September 06, 2019 9:53am Start: 06-14-2019 End: 06-25-2019 take 62.5 ug by inhalation once daily Umeclidinium (Incruse Ellipta) 62.5 mcg/actuation blister with device Discontinued 1 INH INHALATION daily June 14, 2019 11:09am June 25, 2019 4:25pm Start: 06-14-2019 End: 06-25-2019 take 62.5 ug by inhalation once daily Umeclidinium (Incruse Ellipta) 62.5 mcg/actuation blister with device Discontinued 1 NMA INHALATION daily 12 09June 14, 2019 1:00am June 25, 2019 4:25pm Start: 06-14-2019 End: 06-25-2019 take 62.5 ug by inhalation once daily Umeclidinium (Incruse Ellipta) 62.5 mcg/actuation blister with device Discontinued 1 NMA INHALATION daily June 14, 2019 1:00am June 25, 2019 4:25pm Start: 06-14-2019 End: 06-25-2019 take 62.5 ug by inhalation once daily Umeclidinium (Incruse Ellipta) 62.5 mcg/actuation blister with device Discontinued 1 INH INHALATION daily June 14, 2019 12:00am June 25, 2019 3:25pm Start: 06-14-2019 End: 06-25-2019 take 62.5 ug by inhalation once daily Umeclidinium (Incruse Ellipta) 62.5 mcg/actuation blister with device Discontinued 1 INH INHALATION daily June 14, 2019 1:00am June 25, 2019 4:25pm Problems Active Problems Problem Classification Problem Date Documented Da te Episodic/Chronic Abdominal pain (1 source) Lower abdominal pain; Translations: [Lower abdominal pain, unspecified] 03-05-2023 Episodic Acute cerebrovascular disease (5 sources) Cerebrovascular accident; Translations: [Cerebral infarction, unspecified] Onset: 4 03-28-2024 Chronic Administrative/social admission (1 source) Stress; Translations: [Other specified problems related to psychosocial circumstances] 04-07-2023 Episodic Alcohol-related disorders (20 sources) Alcohol dependence; Translations: [Alcohol dependence, uncomplicated] Onset: 8 03-02-2008 Chronic Anxiety disorders (20 sources) Anxiety state; Translations: [Generalized anxiety disorder] Onset: 7 04-22-2017 Chronic Asthma (1 source) Unspecified asthma, uncomplicated; Translations: [Unspecified asthma, uncomplicated] Onset: Chronic Chronic obstructive pulmonary disease and bronchiectasis (20 sources) Acute exacerbation of chronic obstructive airways disease; Translations: [Chronic obstructive pulmonary disease with (acute) exacerbation] Onset: Chronic Comment on above: FEV1 32% of predicte d Diseases of white blood cells (3 sources) Eosinophil count raised; Translations: [Eosinophilia] 11-26-2024 Chronic Epilepsy; convulsions (20 sources) Seizure disorder; Translations: [Epilepsy, unspecified, not intractable, without status epilepticus] Onset: 3 03-23-2013 Chronic Epilepsy; convulsions (17 sources) Seizure; Translations: [Unspecified convulsions] 08-23-2019 Episodic Esophageal disorders (14 sources) Gastroesophageal reflux disease; Translations: [Gastro-esophageal reflux disease without esophagitis] 04-03-2018 Chronic Fever of unknown origin (1 source) Fever; Translations: [Fever, unspecified] 05-17-2022 Episodic Genitourinary symptoms and ill-defined conditions (2 sources) Scalding pain on urination ; Translations: [Dysuria] 09-20-2024 Episodic Headache; including migraine (18 sources) Migraine; Translations: [Migraine, unspecified, not intractable, without status migrainosus] 04-03-2018 Chronic Inflammation; infection of eye (except that caused by tuberculosis or sexually transmitteddisease) (1 source) Bacterial conjunctivitis; Translations: [Unspecified conjunctivitis] 02-03-2024 Episodic Intracranial injury (20 sources) Traumatic brain injury; Translations: [Unspecified intracranial injury with loss of consciousness of unspecified duration, initial encounter] Onset: 1 Resolved: 5 06-11-2021 Episodic Mood disorders (20 sources) Bipolar disorder; Translations: [Bipolar disorder, unspecified] Onset: 7 03-26-2010 Chronic Nutritional deficiencies (20 sources) Vitamin D deficiency; Translations: [Vitamin D deficiency, unspecified] Onset: 7 03-02-2008 Chronic Open wounds of extremities (8 sources) Laceration of right thumb; Translations: [Laceration without foreign body of right thumb without damage to nail, initial encounter] 04-28-2023 Episodic Other aftercare (1 source) Patient encounter status; Translations: [Other senior living (current) drug therapy] 02-24-2024 Episodic Other and ill-defined heart disease (14 sources) Diastolic dysfunction; Translations: [Other ill-defined heart diseases] 04-03-2018 Chronic Other connective tissue disease (14 sources) Lateral epicondylitis of bilateral humerus; Translations: [Lateral epicondylitis, right elbow] 04-03-2018 Episodic Other connective tissue disease (1 source) Muscle weakness of upper limb; Translations: [Other symptoms and signs involving the musculoskeletal system] 03-28-2024 Episodic Other gastrointestinal disorders (15 sources) Diarrhea; Translations: [Diarrhea, unspecified] 04-03-2018 Episodic Other injuries and conditions due to external causes (14 sources) Systemic inflammatory response syndrome; Translations: [Systemic inflammatory response syndrome (SIRS) of non-infectious origin without acute organ dysfunction] 06-05-2019 Episodic Other injuries and conditions due to external causes (14 sources) Injury of head; Translations: [Unspecified injury of head, initial encounter] 03-18-2019 Episodic Other injuries and conditions due to external causes (14 sources) Injury of left ankle; Translations: [Unspecified injury of left ankle, initial encounter] 08-23-2019 Episodic Other injuries and conditions due to external causes (7 sources) Closed injury of head; Translations: [Unspecified injury of head, initial encounter] 08-27-2024 Episodic Other lower respiratory disease (16 sources) Dyspnea; Translations: [Shortness of breath] 04-03-2018 Episodic Other lower respiratory disease (14 sources) Nodule of lung; Translations: [Solitary pulmonary nodule] 04-03-2018 Episodic Other lower respiratory disease (14 sources) Lung mass; Translations: [Other nonspecific abnormal finding of lung field] 04-28-2020 Episodic Other lower respiratory disease (2 sources) Cough; Translations: [Subacute cough] 07-08-2024 Episodic Other lower respiratory disease (1 source) Shortness of breath; Translations: [Shortness of breath] Onset: Episodic Other nervous system disorders (14 sources) Disorder of brain; Translations: [Encephalopathy, unspecified] 04-03-2018 Chronic Other nervous system disorders (5 sources) Cervical myelopathy; Translations: [Disease of spinal cord, unspecified] 05-28-2024 Chronic Other nervous system disorders (7 sources) Unresponsive ; Translations: [Other symptoms and signs involving cognitive functions and awareness] 08-27-2024 Episodic Other nervous system disorders (4 sources) Single limb ataxia; Translations: [Ataxia, unspecified] 03-28-2024 Episodic Other nervous system disorders (4 sources) Paresthesia of right lower limb; Translations: [Paresthesia of skin] 03-28-2024 Episodic Other nervous system disorders (4 sources) Paresthesia of right upper limb; Translations: [Paresthesia of skin] 03-28-2024 Episodic Other nutritional; endocrine; and metabolic disorders (14 sources) Hyperammonemia; Translations: [Disorder of urea cycle metabolism, unspecified] 08-23-2019 Chronic Other nutritional; endocrine; and metabolic disorders (1 source) Unintentional weight loss; Translations: [Abnormal weight loss] 10-15-2023 Episodic Other nutritional; endocrine; and metabolic disorders (1 source) Weight loss; Translations: [Abnormal weight loss] 02-22-2024 Episodic Other upper respiratory disease (14 sources) Hoarse; Translations: [Dysphonia] 04-03-2018 Episodic Other upper respiratory infections (4 sources) Chronic sinusitis; Translations: [Chronic sinusitis, unspecified] Chronic Pneumonia (except that caused by tuberculosis or sexually transmitted disease) (20 sources) Pneumonia; Translations: [Pneumonia, unspecified organism] Onset: 7 10-14-2016 Episodic Residual codes; unclassified (14 sources) Finding related to sleep; Translations: [Sleep apnea, unspecified] 04-03-2018 Chronic Residual codes; unclassified (19 sources) Obstructive sleep apnea syndrome; Translations: [Obstructive sleep apnea (adult) (pediatric)] 04-03-2018 Chronic Comment on above: CPAP 11 cm of water Residual codes; unclassified (1 source) Obstructive sleep apnea (adult) (pediatric); Translations: [Obstructive sleep apnea (adult) (pediatric)] Onset: Chronic Residual codes; unclassified (14 sources) Tobacco user; Translations: [Tobacco use] 08-21-2021 Episodic Residual codes; unclassified (14 sources) History of hernia repair; Translations: [Other specified postprocedural states] 04-03-2018 Episodic Residual codes; unclassified (20 sources) Altered mental status; Translations: [Altered mental status, unspecified] 03-18-2019 Episodic Residual codes; unclassified (8 sources) Diphtheria, tetanus and acellular pertussis vaccination given; Translations: [Other specified health status] 04-28-2023 Episodic Respiratory failure; insufficiency; arrest (adult) (20 sources) Chronic respiratory failure; Translations: [Chronic respiratory failure, unspecified whether with hypoxia or hypercapnia] Onset: 5 09-06-2019 Chronic Respiratory failure; insufficiency; arrest (adult) (20 sources) Acute respiratory failure; Translations: [Acute respiratory failure, unspecified whether with hypoxia or hypercapnia] 04-03-2018 Episodic Septicemia (except in labor) (20 sources) Sepsis; Translations: [Sepsis, unspecified organism] 08-23-2019 Episodic Spondylosis; intervertebral disc disorders; other back problems (20 sources) Prolapsed cervical intervertebral disc without myelopathy; Translations: [Other cervical disc displacement, unspecified cervical region] Onset: 7 03-02-2008 Chronic Spondylosis; intervertebral disc disorders; other back problems (20 sources) Spinal stenosis; Translations: [Spinal stenosis, site unspecified] Onset: 7 Resolved: 1 03-26-2010 Episodic Substance-related disorders (20 sources) Nicotine dependence; Translations: [Nicotine dependence, cigarettes, uncomplicated] Onset: 6 Chronic Unclassified (1 source) Subacute cough; Translations: [Subacute cough] Onset: 5 Unclassified (1 source) Eosinophilia, unspecified; Translations: [Eosinophilia, unspecified] Onset: 5 Past or Other Problems Problem Classification Problem Date Documented Da te Episodic/Chronic Abdominal hernia (20 sources) Inguinal hernia; Translations: [Unilateral inguinal hernia, without obstruction or gangrene, not specified as recurrent] Onset: 12-27-2007 Resolved: 08-07-2010 08-07-2010 Episodic Anxiety disorders (20 sources) Outbursts of anger; Translations: [Irritability and anger] Onset: 12-08-2012 06-11-2021 Episodic Gastritis and duodenitis (20 sources) Acute gastritis; Translations: [Acute gastritis without bleeding] Onset: 02-07-2009 Resolved: 08-07-2010 02-07-2009 Episodic Gastrointestinal hemorrhage (20 sources) Hematochezia; Translations: [Melena] Onset: 02-07-2009 Resolved: 08-07-2010 08-07-2010 Episodic Headache; including migraine (20 sources) Headache; Translations: [Headache] Onset: 07-29-2006 11-10-2015 Episodic Malaise and fatigue (2 sources) Malaise; Translations: [Other malaise] Onset: 04-14-2024 10-15-2023 Episodic Other aftercare (18 sources) Surgical follow-up; Translations: [Encounter for follow-up examination after completed treatment for conditions other than malignant neoplasm] Onset: 01-20-2008 Resolved: 08-07-2010 08-07-2010 Episodic Other connective tissue disease (20 sources) Medial epicondylitis; Translations: [Medial epicondylitis, unspecified elbow] Onset: 04-01-2013 04-01-2013 Episodic Other connective tissue disease (18 sources) Lateral epicondylitis; Translations: [Lateral epicondylitis, unspecified elbow] Onset: 07-29-2006 Resolved: 08-07-2010 08-07-2010 Episodic Other connective tissue disease (18 sources) Soft tissue lesion of shoulder region; Translations: [Bursopathy, unspecified] Onset: 01-01-2007 Resolved: 05-20-2007 03-26-2010 Episodic Other connective tissue disease (18 sources) Disorder of rotator cuff; Translations: [Other specified disorders of rotator cuff syndrome of shoulder and allied disorders] Onset: 05-20-2007 Resolved: 08-07-2010 08-07-2010 Episodic Other connective tissue disease (18 sources) Pain in limb; Translations: [Pain in unspecified limb] Onset: 08-05-2007 Resolved: 08-07-2010 08-07-2010 Episodic Other lower respiratory disease (20 sources) Multiple nodules of lung; Translations: [Other nonspecific abnormal finding of lung field] Onset: 02-06-2018 02-06-2018 Episodic Other nervous system disorders (1 source) Other symptoms and signs involving cognitive functions and awareness; Translations: [Other symptoms and signs involving cognitive functions and awareness] Onset: 08-30-2024 Episodic Residual codes; unclassified (20 sources) Insomnia; Translations: [Insomnia, unspecified] Onset: 06-20-2011 06-20-2011 Episodic Residual codes; unclassified (2 sources) Altered mental status, unspecified; Translations: [Altered mental status, unspecified] Onset: 08-30-2024 Episodic Screening and history of mental health and substance abuse codes (20 sources) Tobacco use and exposure - finding; Translations: [Personal history of nicotine dependence] Onset: 07-29-2006 03-26-2010 Episodic Results Test Name Value Interpretation Reference Range Facility Pulmonary Visit Reporton Pulmonary Visit Report [facility] [address] [place] [address] OFFICE VISIT Date of Service: 11/26/24 MR#: [id number] Acct: [id number] Name: ELIUD BLOUNT Rep #: [id number] : 1960 Provider: Nicki Pantoja NP Age/Sex: 64/M Location: [facility] [place].PMW Status: Signed Assessment and Plan Assessment and Plan (1) Stage 4 very severe COPD by GOLD classification: Status: Chronic Comment: FEV1 32% of predicted Plan: Deteriorated. Triple therapy is not controlling COPD at this time there is significant wheezing on today's exam. I am concerned that type II inflammation is present. I have recommended that he add on Dupixent for the elevated eosinophilic count that showed a total eosinophils of 309 from October 21, 2023. He has had difficulty obtaining his maintenance inhaler on schedule through mail order. He would like his daily maintenance inhaler to be sent to [facility]. Contact the office for any new or worsening symptoms. Begin 300 mg of Dupixent every other week, the use and potential side effects of this biologic were reviewed with patient today. The patient understands that he will need to be evaluated for 2 hours at this practice for the first injection. He is agreeable to proceed. Follow-up in 10 to 12 weeks to evaluate response to therapy. (2) Chronic respiratory failure: Status: Chronic Qualifiers: Respiratory failure complication: hypoxia Qualified Code(s): J96.11 - Chronic respiratory failure with hypoxia Plan: The patient understands that his goal is to maintain an oxygen saturation of 89 to 92%. He reports that he does not want to use supplemental oxygen. I have discussed the importance of maintaining adequate saturations which is vital for all of his organ functioning. The patient reports that he wants to return his supplemental oxygen and PAP therapy. I have stressed to him that this would be AGAINST MEDICAL ADVICE and that if he chooses to proceed in this direction that he would have to repeat testing to have therapy return to his home. (3) Nicotine dependence, cigarettes, uncomplicated: Status: Chronic Plan: Complete smoking cessation is recommended. Repeat LDCT is previously ordered for June 2025. (4) LACEY (obstructive sleep apnea): Status: Chronic Comment: CPAP 11 cm of water Plan: Deteriorated. The patient is noncompliant with PAP therapy. He reports that he is not willing to proceed with using the device. I have offered a mandibular advancement device referral and he has declined today. He has been using ipratropium bromide nasal spray with good benefit. Medications: New dupilumab (Dupixent) 300 mg (2 mL) subcut Q2W 4 mL 11RF D72.10 - Eosinophilia, unspecified, J44.9 - Chronic obstructive pulmonary disease, unspecified Plan Details Follow Up: 3 Months (LMR) HPI HPI Comments Details: Patient is a 64-year-old male who presents to the office today to discuss test results. He is ambulatory and currently on room air. He reports that he has continued to have difficulty with shortness of breath. He was treated for sinus infection with antibiotics about 2-3 months ago. He had UTI 4-5 months ago and needed antibiotics. He continues with use of Trelegy 1 puff daily. He denies any side effect to the inhaler such as sore throat or thrush as he is performing oral care after use. He is currently not utilizing albuterol, he does not have it on hand. He is asking to have some on hand. He was without his inhaler for 4-5 days due to mail order insurance. He denies wheezing, although present on exam today. He reports that he is coughing some which is nonproductive. He reports shortness of breath occurs with exertion. He indicates that he has occasional chest tightness. He denies fever, chills, body aches. He does have a history of congestive heart failure. He continues to smoke cigarettes. He is currently smoking 10 to 15 cigarettes a day. He admits he not using his PAP device. He is asking to return his device. He is asking to return his supplemental oxygen as he does not want to utilize this either. I do not have a compliance download to review today. ESS is 3. He does have oxygen at home but does not use it in a routine manner. He does not want to get started with using supplemental oxygen because he does not want to have to stay on it. PFT from June 23, 2024 which shows irreversible severe large airway obstructive ventilatory defect with associated air trapping and symmetric reduction in diffusion capacity. There has been a sign ificant reduction in the diffusion capacity when compared to previous study from 2021. This does not correct for anemia. 6-minute walk test from July 02, 2024 shows the requirement for supplemental oxygen at 2 L/min with the niko oxygen saturation at 88%. The recommendation is to utilize 2 L/min of (more content not included)... Normal [facility] Anion gap in Serum or Plasma Ordered By: CARL Pantoja on 11-25-2024 Anion gap [Moles/Vol] 12 mmol/L -15 [facility] BUN/creatinine ratioOrdered By: CARL Pantoja on 11-25-2024 Urea nitrogen/Creatinine [Mass ratio] 22.5 mg/mg High - [facility] Basic Metabolic Profile (BMP )on 11-25-2024 BUN/CRE 22.5 RATIO High - [facility] Comment on above: Performed By: #### L 500.2500, L503.7505 ####[facility] [address] [place], [address] Calcium [Mass/Vol] 9.0 mg/dL Normal 7.6-11.0 [facility] Comment on above: Performed By: #### L 500.2500, L503.7505 ####[facility] [address] [place], [address] Chloride [Moles/Vol] 97 mmol/L Low 98-108 [facility] Comment on above: Performed By: #### L 500.2500, L503.7505 ####[facility] [address] [place], [address] CO2 [Moles/Vol] 28.9 mmol/L Normal 21.0-32.0 [facility] Comment on above: Performed By: #### L 500.2500, L503.7505 ####[facility] [address] [place], [address] Creatinine [Mass/Vol] 0.66 mg/dL Low 0.70-1.20 [facility] Comment on above: Performed By: #### L 500.2500, L503.7505 ####[facility] [address] [place], [address] GAP 12 Normal 5-15 [facility] Comment on above: Performed By: #### L 500.2500, L503.7505 ####[facility] [address] [place], [address] GFR/1.73 sq M.predicted among non-blacks MDRD (S/P/Bld) [Vol rate/Area] 106 mL/min/{1.73_m2} Normal >60 [facility] Comment on above: Result Comment: mL/m in/1.73m2 CKD-EPI Creatinine Equation (2020) Performed By: #### L 500.2500, L503.7505 ####[facility] [address] [place], [address] Glucose [Mass/Vol] 55 mg/dL Low 70-99 [facility] Comment on above: Performed By: #### L 500.2500, L503.7505 ####[facility] [address] [place], [address] Potassium [Moles/Vol] 3.4 mmol/L Normal 3.3-5.1 [facility] Comment on above: Result Comment: Hemo lysis present, Results??could be affected. ?? Performed By: #### L 500.2500, L503.7505 ####[facility] [address] [place], [address] Sodium [Moles/Vol] 138 mmol/L Normal 133-145 [facility] Comment on above: Performed By: #### L 500.2500, L503.7505 ####[facility] [address] [place], [address] Urea nitrogen [Mass/Vol] 15 mg/dL Normal 4-19 [facility] Comment on above: Performed By: #### L 500.2500, L503.1205 ####[facility] [address] [place], [place], [id number] Carbon dioxide, total [Moles /volume] in Central venous bloodOrdered By: CARL Pantoja on 11-25-2024 CO2 [Moles/Vol] 28.9 mmol/L 21.0-32.0 [facility] Chloride assayOrdered By: CARL Pantoja on 11-25-2024 Chloride [Moles/Vol] 97 mmol/L Low 98-108 [facility] Glomerular filtration rate ( GFR) estimation/1.73 sq m using serum, plasma, or whole bOrdered By: CARL Pantoja on 11-25-2024 GFR/1.73 sq M.predicted among non-blacks MDRD (S/P/Bld) [Vol rate/Area] 106 mL/min/{1.73_m2} >60 [facility] Comment on above: mL/min/1.73m2 CKD-EP I Creatinine Equation (2020) L503.7505on 11-25-2024 Natriuretic peptide B (Bld) [Mass/Vol] 95 pg/mL Normal <=900 [facility] Comment on above: Result Comment: Hear t Failure Unlikely: < 300 pg/mL Heart Failure Likely < 50 Years: > 450 pg/mL 50-75 Years: > 900 pg/mL >75 Years: > 1800 pg/mL Performed By: #### L 500.2500, L503.7505 ####[facility] [address] [place], [place], [id number] Natriuretic peptide.B prohor meng N-Terminal [Mass/volume] in Serum or PlasmaOrdered By: CARL Pantoja on 11-25-2024 Natriuretic peptide.B prohormone N-Terminal [Mass/Vol] 95 pg/mL <900 [facility] Comment on above: Heart Failure Unlike ly: < 300 pg/mLHeart Failure Likely< 50 Years: > 450 pg/mL50-75 Years: > 900 pg/mL>75 Years: > 1800 pg/mL Potassium measurement (mass/ volume)Ordered By: CARL Pantoja on 11-25-2024 Potassium (Unsp spec) [Mass/Vol] 3.4 mmol/L 3.3-5.1 [facility] Comment on above: Hemolysis present, R esults could be affected. Serum creatinine measurement (mass/volume)Ordered By: CARL Pantoja on 11-25-2024 Creatinine [Mass/Vol] 0.66 mg/dL Low 0.70-1.20 [facility] Serum glucose measurement (m ass/volume)Ordered By: CARL Pantoja on 11-25-2024 Glucose [Mass/Vol] 55 mg/dL Low 70-99 [facility] Serum or plasma calcium tonio urement (mass/volume)Ordered By: CARL Pantoja on 11-25-2024 Calcium [Mass/Vol] 9.0 mg/dL 7.6-11.0 [facility] Serum or plasma urea nitroge n measurement (mass/volume)Ordered By: CARL Pantoja on 11-25-2024 Urea nitrogen [Mass/Vol] 15 mg/dL 4-19 [facility] Sodium levelOrdered By: CARL Pantoja on 11-25-2024 Sodium [Moles/Vol] 138 mmol/L 133-145 [facility] Bacteria Ur Culton 5 Bacteria identified Cx Nom (U) ORGANISM ID: 1 >=100,000 CFU/ml Normal urogenital jose Normal [facility] Comment on above: Performed By: #### 6 30-4 ####[facility] LABCLIA [id number] [address] [place] CNOVon 09-20-2024 CNOV Office Visit (UCWSTR ) ELIUD BLOUNT ([id number]) 1960 M Date Time Provider Department 09/20/24 10:30 AM VINITA LILLY [facility] During your visit today, we recorded the following information about you: Temperature Pulse Respiration Blood pressure 97.1 degrees 70/minute 16/minute 106/62 Weight 56.4 kg Vinita Lilly APRN.[employer] 09/20/2024 2:11 PM Signed [facility] Subjective HPI HPI Eliud Blount is a 63 year old male who presents today for CC of urinary urgency, and reports hx of uti in past/many years ago. Denies perineal and testicular pain. 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 CERVICAL DISC DISPLACMNT 01/28/2007 Cervicalgia 07/29/2006 Chronic obstructive pulmonary disease (COPD) ([facility]) DEPRESSIVE DISORDER NEC 07/29/2006 Diabetes ([facility]) Headache(784.0) 07/29/2006 Hypertension Intracranial injury of [...] PFRMD normal EGD TRANSORAL BIOPSY SINGLE/MULTIPLE gastritis ESOPHAGOGASTRODUODENO SCOPY TRANSORAL DIAGNOSTIC 06/24/2017 EGD NEUROPLASTY AND/TRANSPOSITION ULNAR NERVE ELBOW 1999 right PAST SURGICAL HISTORY OF 1991 left ankle surgery-removal of bone chip PAST SURGICAL HISTORY OF bilateral repair of tennis elbow RPR 1ST INGUN HRNA AGE 7 YRS/> REDUCIBLE 1991 Bilateral Hernia repair, inguinal - laparoscopic - Dr. Alanis RPR 1ST INGUN HRNA AGE 5 YRS/> REDUCIBLE 01/28/2008 Left Open repair RPR UMBILICAL HRNA 5 YRS/> REDUCIBLE simple ALLERGIES Day-Nite Severe Cold-Flu [Evzmeoi-Er-Xp-Acetam inophen-Gg], Dextromethorphan, Doxylamine, Pseudoephedrine, Sertraline, Zoloft [Sertraline Hcl], Baclofen, and Nyquil [Ezfqetnxa-Bcd-Na-Deric taminophen] MEDICATIONS fluticasone (FLONASE) 50 mcg/actuation nasal spray Use 2 Sprays in each nostril once daily. MUCUS RELIEF ER 1,200 mg Ta12 Take 1 tablet by mouth every 12 hours. amitriptyline (ELAVIL) 100 mg tablet Take 1 tablet by mouth daily at bedtime. Prescribed by neurology divalproex DR (DEPAKOTE) 250 mg EC tablet Take 2 tablets by mouth three times a day. Prescribed by neurology gabapentin (NEURONTIN) 600 mg tablet Take 1 tablet by mouth three times a day. Prescribed by neurology ibuprofen (MOTRIN) 200 mg tablet Take 2 tablets by mouth every 6 hours as needed for pain (Take with food.). albuterol (PROVENTIL) 5 mg/mL nebu Inhale 0.5 [...] daily before breakfast. 1/2 hr before meal. fluticasone-umeclidin -vilanter (TRELEGY ELLIPTA) 100-62.5-25 mcg Inhale 1 Puff as instructed once daily. levETIRAcetam (KEPPRA) 500 mg tablet twice daily. albuterol HFA (VENTOLIN HFA) 90 mcg/actuation inhaler Inhale 2 Puffs as instructed every 4 hours as needed for Wheezing/Shortness of Breath. multivitamin tablet Take 1 tablet by mouth once daily. sulfamethoxazole-trim ethoprim (BACTRIM DS) 800-160 mg per tablet Take 1 tablet by [...] No Review of Systems Constitutional: Negative for fever. Cardiovascular: Negative for chest pain. Gastrointestinal: Negative for abdominal pain, constipation, diarrhea, nausea and vomiting. Genitourinary: Positive for dysuria, frequency and urgency. Negative for flank pain. Musculoskeletal: Negative for back pain. Objective BP 106/62 Pulse 70 Temp 36.2 ?C (97.1 ?F) Resp 16 Wt 56.4 (more content not included)... Normal [facility] UA DIP, URINE (POC)on 2024 BILIRUBIN UA (POCT) Negative Negative [facility] CLARITY UA (POCT) Cloudy [facility] COLOR UA (POCT) Yellow [facility] GLUCOSE UA (POCT) Negative Negative mg/dL [facility] Hemoglobin Ql (U) Moderate Abnormal Negative [facility] Interpretation and review of laboratory results Abnormal [facility] KETONE UA (POCT) Negative Negative mg/dL [facility] LEUKOCYTES UA (POCT) Large Abnormal Negative [facility] NITRITE UA (POCT) Negative Negative [facility] PH UA (POCT) 6 4.5 - 8.0 [facility] Protein Ql (U) >=300 Abnormal Negative mg/dL [facility] SPECIFIC GRAVITY UA (POCT) >=1.030 1.005 - 1.030 [facility] UROBILINOGEN UA (POCT) 1 Sheridan l E.U./dL [facility] Location:[facility], [address] [facility] [address], [place], [address] [facility] POINT OF CARE [facility] Consultation - Intensiviston 08-28-2024 Consultation - Mixer Slagman [facility] Medical Records Department [address] [place] [address] Consultation - Mixer Slagman 08/28/24 0053 MR#: [id number] Acct: [id number] Name: ELIUD BLOUNT Rep #: [id number] : 1960 63 From: Krishan Calzada MD PCP: Dr. Charan Arndt MD Status:ADM IN Location: ICU [id number] Krishan Calzada MD on 08/28/24 at 0106 Addendum We will follow peripherally 08/28/24 0106 Cosigner Signature (if applicable): cc: Dr. Charan Arndt MD * Signed HPI Consult Data Date of Consult: 08/28/24 HPI Narrative HPI Narrative: Mr. Blount is a 63 year-old gentleman with COPD, chronic hypercapnic respiratory failure, methamphetamine abuse/dependence, and a prior TBI who presents with altered mental status. He was recently observed by his family to have gait instability, and he did have a fall, hitting his head on the radiator. Upon arrival to [place], his laboratory data revealed a slightly elevated Cr and a positive UDS for methamphetamines, and his imaging was unremarkable. He did undergo an MRI which was unremarkable. On my examination, he is easily awoken, and alert and oriented when awake. He currently denies any fevers, chills, nausea, vomiting, diarrhea, syncope, presyncope, visual changes, orthopnea, PND, odynophagia, dysphagia, chest pain, shortness of breath, belly pain, dysuria, hematuria, melena, hematochezia, or neurological changes. All other systems were reviewed and were negative. [facility] Medical History (Updated 08/27/24 @ 16:49 by Miguel Ángel Liao MD) Pneumonia Pneumonia Left ankle injury Bilateral tennis elbow Depression Sepsis LACEY (obstructive sleep apnea) Lung nodule Hoarseness Sleep-related breathing disorder Pneumonia Encephalopathy Acute respiratory failure COPD (chronic obstructive pulmonary disease) GERD (gastroesophageal reflux disease) Bipolar disorder Migraine Tobacco abuse Spinal stenosis Traumatic brain injury Home Medications ???Medication ???Instructions ???Recorded ???Last Taken ???Type levetiracetam 500 mg tablet 500 mg PO DAILY Check with primary 04/28/20 03/28/24 History doctor divalproex 250 mg tablet,delayed 750 mg PO BID 03/28/24 03/28/24 Hi story release ibuprofen 200 mg tablet (Addaprin) 400 mg PO Q8H PRN pain 03/28/24 03/28/24 History albuterol sulfate 2.5 mg/3 mL 2.5 mg (3 mL) inhalation Q4H PRN 1 Unknown Rx (0.083 %) solution for nebulization #120 vials fluticasone fur. 200 mcg-umeclid 1 inh inhalation DAILY #60 ea 03/18 07/09 Unknown Rx 62.5 mcg-vilant 25 mcg inhalat.powder (Trelegy Ellipta) Disability Placard #1 ea 06/14/24 Unknown Rx fluticasone propionate 50 2 spray intranasal DAILY #16 grams 06/14/24 Unknown Rx mcg/actuation nasal spray,suspension albuterol sulfate 90 mcg/actuation 2 puff inhalation Q4H PRN Unknown Rx aerosol inhaler shortness of breath or wheezing #8.5 grams amitriptyline 100 mg tablet 100 mg PO QHS PRN sleep 07/27/24 U nknown History ipratropium bromide 42 mcg (0.06 2 spray intranasal TID #15 mL 07/17 07/10 Unknown Rx %) nasal spray gabapentin 800 mg tablet 800 mg PO TID 08/27/24 Unknown His tory guaifenesin 1,200 mg tablet, 1,200 mg PO Q12H PRN cough 5 Unknown History extended release 12 hr Allergy/AdvReac Type Severity Reaction Status Date / Time dextromethorphan HBr (From AdvReac Intermediate tachycardia, Verified 08/27/24 14:30 NyQuil) feels anxious doxylamine (From NyQuil) AdvReac Intermediate Tachycardia, Verified 08/27/24 14:30 feels anxious pseudoephedrine HCl (From AdvReac Intermediate Tachycardia, Verified 08/27/24 14:30 NyQuil) feels anxious sertraline HCl (From Zoloft) AdvReac Diarrhea Verified 08/27/24 14:30 Family History Father Dementia Alzheimers disease Diabetes Mother Diabetes Surgical History History of hernia repair Social History Smoking Status: Heavy Smoker (>10/day) Tobacco: How many years used: 30 second hand exposure: Yes alcohol intake: never substance use type: does not use ROS ROS Narrative As per HPI Objective Data Objective Data Vital Signs: Vital Signs Last response 3 Temperature 36.7 C 08/28/24 00:00 Temperature Source Temporal 08/28/24 00:00 Pulse Rate 66 08/28/24 00:00 Respiratory Rate 10 L 08/28/24 00:00 Respiratory Effort Normal, Non-Labored 08/28/24 00:00 Respiratory Depth Normal 08/28/24 00:00 Respiratory Pattern Normal 08/28/24 00:00 Blood Pressure 169/100 H 08/28/24 00:00 Blood Pressure Mean 123 08/28/24 00:00 Blood Pressure Source Monitor 08/28/24 00:00 Blood Pressure Positi (more content not included)... Normal [facility] Discharge Instructionon 08-14 Discharge Instruction [facility] Medical Records Department [address] [place] [address] Instructions for Home/Discharge Instructions 08/28/24 1142 MR#: [id number] Acct: [id number] Name: ELIUD BLOUNT Rep #: [id number] : 1960 63 From: Hyun Duncan MD PCP: Dr. Charan Arndt MD Status:ADM IN Discharge Instructions Diet Discharge Diet: Low fat / Low cholesterol DC O2, CPAP, BIPAP needs Home O2 Discharge instructions: No Dressing / Incision Discharge Activity: Return to Normal Activity Weight Bearing Status: Weight bearing as tolerated Dressing / Incision Call your doctor if you observe: Fever of 101 or Higher, Shortness of breath, Dizziness, Swelling in the ankles and Chest pain Follow Up Care Test Results: Test results from this visit will be discussed in further detail at your follow-up appointment, if applicable. Discharge Plan Admission Admit Date/Time: 08/27/24 17:01 Primary Reason for Your Visit: acute encephalopathy Attending Provider: Hyun Duncan Primary Care Provider: Charan Arndt Consulting Providers: Jone Dudley; Jeffry Bo; Magdi Serrano; Rock Dick; Calvin Jasso; Sebastian Charles; Jamal Mina; Claudine Davis ; Morris Disla; Fabien Boles; Jarek Rosas; Sirisha Lorenzo; Rosaura Mosley; Debbie Jimenez; Krishan Calzada; Jermaine Valenzuela; Joe Crouch; Sukhdeep Michelle; Erica Palacios; Kee Lagos; Maruicio Culp; Humberto Ashley; Roel Bermudez; Al Conner; Nael Grullon; Charissa Vickers; Maria M Triana; Swathi Pete; Crow Barrera; Pauline Lyons; Saqib Holcomb; Eliud Tripp; Nehemias Martines; Sofia Smith; Jerome Pollack; Laxmi Oh; Flaco Hidalgo; Otto Gorman; Saturnino Calixto; Chiara Mccracken; Chandler Drake; Robyn Fontana; Kandi Ray Instructions Patient Instructions: ED Confusion Discharge Orders/Prescriptions Prescriptions: Continued fluticasone propionate 50 mcg/actuation spray,suspension 2 spray intranasal DAILY Qty: 16 3RF (DME) Disability Jarvis See Rx Instructions .ROUTE .MEDSUPPLY Qty: 1 0RF Rx Instructions: expires 06/14/2029 ipratropium bromide 42 mcg (0.06 %) spray,non-aerosol 2 spray intranasal TID Qty: 15 0RF Rx Instructions: administer into each nostril albuterol sulfate 90 mcg/actuation HFA aerosol inhaler 2 puff inhalation Q4H PRN (Reason: shortness of breath or wheezing) Qty: 8.5 11RF Rx Instructions: administer with spacer amitriptyline 100 mg tablet 100 mg PO QHS PRN (Reason: sleep) Patient Comments: TAKE 1 TABLET BY MOUTH EVERY DAY levetiracetam 500 MG tablet 500 mg PO DAILY divalproex 250 mg tablet,delayed release (DR/EC) 750 mg PO BID ibuprofen [Addaprin] 200 mg tablet 400 mg PO Q8H PRN (Reason: pain) gabapentin 800 mg tablet 800 mg PO TID guaifenesin 1,200 mg tablet extended release 12hr 1,200 mg PO Q12H PRN (Reason: cough) albuterol sulfate 2.5 mg /3 mL (0.083 %) solution for nebulization 2.5 mg inhalation Q4H PRN Qty: 120 4RF Rx Instructions: Use q4 hours and PRN for wheezing Trelegy Ellipta 200-62.5-25 mcg blister with device 1 inh inhalation DAILY Qty: 60 11RF Referrals / Follow Up: Charan Arndt MD [Primary Care Provider] - Within 1 Week Disposition Disposition (needs filled in before D/C Order can be placed): Home, Self Care 08/28/24 1142 Hyun Duncan MD CC: Maria M Triana; Laxmi Oh; Saturnino Calixto; Swathi Pete MD; Charissa Vickers MD; Al Conner MD; Dr. Jeffry Bo MD; Dr. Nael Grullon MD; Dr. Jone Dudley MD; Dr. Magdi Serrano MD; Dr. Charan Arndt MD; Dr. Calvin Jasso MD; Dr. Crow Barrera MD; Dr. Rock Dick DO; Dr. Sebastian Charles MD; Dr. Jamal Mina MD; Dr. Morris Disla MD; Dr. Pauline Lyons MD; Dr. Eliud Tripp MD; Dr. Saqib Holcomb MD; Dr. Nehemias Martines MD; Dr. Fabien Boles MD; Dr. Jarek Rosas MD; Dr. Sirisha Lorenzo MD; Dr. Rosaura Mosley MD; Dr. Debbie Jimenez MD; Dr. Jerome Pollack DO; Dr. Otto Gorman MD; Dr. Flaco Hidalgo MD; Dr. Jermaine Valenzuela MD; Dr. Krishan Calzada MD; Dr. Chiara Mccracken MD; Dr. Joe Crouch MD; Dr. Kee Lagos MD; Dr. Erica Palacios MD; Dr. Sukhdeep Michelle DO; Dr. Chandler Drake MD; Dr. Mauricio Culp DO; Dr. Humberto Ashley MD; Dr. Robyn Fontana MD; Dr. Roel Bermudez MD; Dr. Claudine Davis MD; Sofia Smith DO; Kandi Ray MD Signed Normal [facility] MR/CON.PCM.NEon 08-28-2024 MR/CON.PCM.NE [facility] Medical Records Department [address] [place] [address] Consultation - Neurology 08/28/24820 MR#: [id number] Acct: [id number] Name: ELIUD BLOUNT Rep #: [id number] : 1960 63 From: Sofia Smith MD PCP: Dr. Charan Arndt MD Status:ADM IN Location: ICU [id number] Assessment and Plan: Neuro Assessment/Plan ELIUD BLOUNT is a 63 M with a past medical history of seizure on Keppra and depakote, stage IV COPD, tobacco use, stroke, being evaluated by Teleneurology for altered mental status. Possible syncope - reports he was dizzy/lightheaded prior to falling. CTH did not show any acute findings. UDS was positive for meth. MRI Brain was unremarkable. He is now at his baseline. confusion possibly related to mild concussion after hitting his head. Diagnosis: Syncope, concussion Plan: - Orthostatic vitals - if positive would treat with compression stockings and abdominal binder - PT assement - Neurology will sign off I personally attended this patient and spent a total time of 32 minutes evaluating this patient including clinical assessment, review of chart, medical history imaging, and determining appropriate treatment and workup. HPI Consult Data Date of Consult: 08/28/24 HPI Narrative HPI Narrative: ELIUD BLOUNT, is a 63 M with a past medical history of seizure on Keppra and depakote, stage IV COPD, tobacco and meth use, stroke, being evaluated by Teleneurology for altered mental status. Yesterday reportedly fell and hit his head on the radiator. Prior to his fall he felt lightheaded and dizzy. Afterwards he seemed confused and was brought to the ED. On arrival CTH showed remote infarcts of the right temporal lobe and parietal lobes, but no acute findings. CTA was without flow limited stenosis. His UDS was positive for meth. He now feels back to normal, no concerns for his thinking. [facility] Medical History Pneumonia Pneumonia Left ankle injury Bilateral tennis elbow Depression Sepsis LACEY (obstructive sleep apnea) Lung nodule Hoarseness Sleep-related breathing disorder Pneumonia Encephalopathy Acute respiratory failure COPD (chronic obstructive pulmonary disease) GERD (gastroesophageal reflux disease) Bipolar disorder Migraine Tobacco abuse Spinal stenosis Traumatic brain injury Home Medications ???Medication ???Instructions ???Recorded ???Last Taken ???Type levetiracetam 500 mg tablet 500 mg PO DAILY Check with primary 04/28/20 03/28/24 History doctor divalproex 250 mg tablet,delayed 750 mg PO BID 03/28/24 03/28/24 Hi story release ibuprofen 200 mg tablet (Addaprin) 400 mg PO Q8H PRN pain 03/28/24 03/28/24 History albuterol sulfate 2.5 mg/3 mL 2.5 mg (3 mL) inhalation Q4H PRN 1 Unknown Rx (0.083 %) solution for nebulization #120 vials fluticasone fur. 200 mcg-umeclid 1 inh inhalation DAILY #60 ea 03/18 07/09 Unknown Rx 62.5 mcg-vilant 25 mcg inhalat.powder (Trelegy Ellipta) Disability Placard #1 ea 06/14/24 Unknown Rx fluticasone propionate 50 2 spray intranasal DAILY #16 grams 06/14/24 Unknown Rx mcg/actuation nasal spray,suspension albuterol sulfate 90 mcg/actuation 2 puff inhalation Q4H PRN Unknown Rx aerosol inhaler shortness of breath or wheezing #8.5 grams amitriptyline 100 mg tablet 100 mg PO QHS PRN sleep 07/27/24 U nknown History ipratropium bromide 42 mcg (0.06 2 spray intranasal TID #15 mL 07/17 07/10 Unknown Rx %) nasal spray gabapentin 800 mg tablet 800 mg PO TID 08/27/24 Unknown His tory guaifenesin 1,200 mg tablet, 1,200 mg PO Q12H PRN cough 5 Unknown History extended release 12 hr Allergy/AdvReac Type Severity Reaction Status Date / Time dextromethorphan HBr (From AdvReac Intermediate tachycardia, Verified 08/27/24 14:30 NyQuil) feels anxious doxylamine (From NyQuil) AdvReac Intermediate Tachycardia, Verified 08/27/24 14:30 feels anxious pseudoephedrine HCl (From AdvReac Intermediate Tachycardia, Verified 08/27/24 14:30 NyQuil) feels anxious sertraline HCl (From Zoloft) AdvReac Diarrhea Verified 08/27/24 14:30 Family History Father Dementia Alzheimers disease Diabetes Mother Diabetes Surgical History History of hernia repair Social History Smoking Status: Heavy Smoker (>10/day) Tobacco: How many years used: 30 second hand exposure: Yes alcohol intake: never substance use type: does not use Vital Signs Vital Signs Vital Signs: 08/27/24 14:22 08/27/24 14:27 08/27/24 14:34 Temperature Temperature Source Pulse Rate 84 (more content not included)... Normal [facility] 12 Lead EKGon 08-27-2024 12 Lead EKG [facility] Cardiovascular Services [address] [place] [address] 12 Lead EKG 08/27/24 1453 MR#: [id number] Acct: [id number] Name: ELIUD BLOUNT Rep #: [id number] : 1960 63 From: Johnny Xavier MD Attending Dr: Dr. Hyun Duncan MD Status: DI S IN Ordering Dr: Miguel Ángel Liao MD Date: 08/27/24 Location: ICU Sex: M C Admitted: 08/27/24 Test Reason : UNRESPONSIVE Blood Pressure : */* mmHG Vent. Rate : 81 BPM Atrial Rate : 81 BPM P-R Int : 122 ms QRS Dur : 94 ms QT Int : 406 ms P-R-T Axes : 63 94 79 degrees QTcB Int : 471 ms Normal sinus rhythm Rightward axis Nonspecific T wave abnormality Prolonged QT Abnormal ECG Confirmed by ERIN ARBOLEDA, CHITRA ([id number]), editor city MEG MULLINS ([id number]) on 08/30/2024 10:56:43 AM Referred By: Confirmed By: CHITRA XAVIER MD 08/30/24 1960 Date Johnny Xavier MD CC: Dr. Miguel Ángel Liao MD; Dr. Charan Arndt MD; Dr. Hyun Duncan MD Signed Normal [facility] Absolute lymphocyte countOrd ered By: Miguel Ángel Liao on 08-27-2024 Lymphocytes Auto (Unsp spec) [#/Vol] 1.99 10*3/uL 0.83-4.51 [facility] Absolute neutrophil countOrd ered By: Miguel Ángel Liao on 08-27-2024 Neutrophils (Bld) [#/Vol] 2.0 10*3/uL 2.0-7.7 [facility] Activated partial thrombopla stin time (aPTT) in platelet poor plasma by coagulation aOrdered By: Miguel Ángel Liao on 08-27-2024 aPTT Coag (PPP) [Time] 31.6 s 24.1-36.2 [facility] Alcohol, Blood (Medical)-Ser umon 08-27-2024 SERUM ETOH < 10.1 Normal <=10.0 [facility] Comment on above: Result Comment: This test is for medical purposes only. The legal definition of intoxication varies according to local law. Performed By: #### L 501.4021, L100.0100, L500.2500, L300.4310, L300.3900, L501.9100 #### [facility] [address] [place], [place], [id number] Ammoniaon 08-27-2024 Ammonia (P) [Moles/Vol] 38.6 umol/L Normal 16-60 [facility] Comment on above: Performed By: #### L 503.5510 #### [facility] [address] [place], [place], [id number] Amphetamine detection with 1 000 ng/mL as cutoffOrdered By: Miguel Ángel Liao on 08-27-2024 Amphetamines Screen method >1000 ng/mL Ql (U) Positive <1000 ng/mL [facility] Comment on above: If confirmation test ing is needed, a separate order will be required to send out testing to the reference laboratory. Amphetamines Screen method >1000 ng/mL Ql (U) Negative < 200 ng/mL [facility] Amphetamines Screen method > 1000 ng/mL Ql (U)Ordered By: Miguel Ángel Liao on 08-27-2024 Amphetamines Ql (U) Positive <1000 ng/mL [facility] Comment on above: If confirmation test ing is needed, a separate order will be required to send out testing to the reference laboratory. Urine Barbiturates Screen Negative < 200 ng/mL [facility] Anion gap in Serum or Plasma Ordered By: Miguel Ángel Liao on 08-27-2024 Anion gap [Moles/Vol] 11 mmol/L 10-28 [facility] Automated lymphocyte count a s percentage of total leukocytesOrdered By: Miguel Ángel Liao on 08-27-2024 Lymphocytes/100 WBC Auto (Unsp spec) 43.8 % High 19-41 [facility] BUN/creatinine ratioOrdered By: Miguel Ángel Liao on 08-27-2024 Urea nitrogen/Creatinine [Mass ratio] 30.2 mg/mg High 10 [facility] Base excess Calc (BldV) [Mol es/Vol]Ordered By: Miguel Ángel Liao on 08-27-2024 Blood Gas Base Excess 7 mmol/L High -2-2 [facility] Basic Metabolic Profile (BMP )on 08-27-2024 BUN/CRE 30.2 RATIO High 10 [facility] Comment on above: Performed By: #### L 501.4021, L100.0100, L500.2500, L300.4310, L300.3900, L501.9100 ####[facility] [address] [place], [place], [address] Calcium [Mass/Vol] 8.8 mg/dL Normal 7.6-11.0 [facility] Comment on above: Performed By: #### L 501.4021, L100.0100, L500.2500, L300.4310, L300.3900, L501.9100 ####[facility] [address] [place], [address] Chloride [Moles/Vol] 100 mmol/L Normal 98-108 [facility] Comment on above: Performed By: #### L 501.4021, L100.0100, L500.2500, L300.4310, L300.3900, L501.9100 ####[facility] [address] [place], [address] CO2 [Moles/Vol] 26.6 mmol/L Normal 21.0-32.0 [facility] Comment on above: Performed By: #### L 501.4021, L100.0100, L500.2500, L300.4310, L300.3900, L501.9100 ####[facility] [address] [place], [address] Creatinine [Mass/Vol] 0.73 mg/dL Normal 0.70-1.20 [facility] Comment on above: Performed By: #### L 501.4021, L100.0100, L500.2500, L300.4310, L300.3900, L501.9100 ####[facility] [address] [place], [address] ECRCL 84.17 ml/min Normal 50-250 [facility] Comment on above: Performed By: #### L 501.4021, L100.0100, L500.2500, L300.4310, L300.3900, L501.9100 ####[facility] [address] [place], [address] GAP 11 Normal 5-15 [facility] Comment on above: Performed By: #### L 501.4021, L100.0100, L500.2500, L300.4310, L300.3900, L501.9100 ####[facility] [address] [place], [address] GFR/1.73 sq M.predicted among non-blacks MDRD (S/P/Bld) [Vol rate/Area] 103 mL/min/{1.73_m2} Normal >60 [facility] Comment on above: Result Comment: mL/m in/1.73m2 CKD-EPI Creatinine Equation (2020) Performed By: #### L 501.4021, L100.0100, L500.2500, L300.4310, L300.3900, L501.9100 ####[facility] [address] [place], [address] Glucose [Mass/Vol] 147 mg/dL High 70-99 [facility] Comment on above: Performed By: #### L 501.4021, L100.0100, L500.2500, L300.4310, L300.3900, L501.9100 ####[facility] [address] [place], [address] Potassium [Moles/Vol] 3.6 mmol/L Normal 3.3-5.1 [facility] Comment on above: Performed By: #### L 501.4021, L100.0100, L500.2500, L300.4310, L300.3900, L501.9100 ####[facility] [address] [place], [address] Sodium [Moles/Vol] 138 mmol/L Normal 133-145 [facility] Comment on above: Performed By: #### L 501.4021, L100.0100, L500.2500, L300.4310, L300.3900, L501.9100 ####[facility] [address] [place], [address] Urea nitrogen [Mass/Vol] 22 mg/dL High 4-19 [facility] Comment on above: Performed By: #### L 501.4021, L100.0100, L500.2500, L300.4310, L300.3900, L501.9100 ####[facility] [address] [place], [address] Basophil percentageOrdered B y: Miguel Ángel Liao on 08-27-2024 Basophils/100 WBC (Bld) 0.9 % 0-1 [facility] Blood Gases by CPSon 025 Base excess Calc (Bld) [Moles/Vol] 7 mmol/L High -2 to +2 [facility] Comment on above: Performed By: #### L 9000.0800 ####[facility] [address] [place], [address] Blood Gas Type ART Normal [facility] Comment on above: Performed By: #### L 9000.0800 ####[facility] [address] [place], [address] CO2 [Moles/Vol] 34 mmol/L Normal [facility] Comment on above: Performed By: #### L 9000.0800 ####[facility] [address] [place], [address] HCO3 (Bld) [Moles/Vol] 31.9 mmol/L High 22-26 [facility] Comment on above: Performed By: #### L 9000.0800 ####[facility] [address] [place], [address] Mode Not entered Normal [facility] Comment on above: Performed By: #### L 9000.0800 ####[facility] [address] [place], [address] O2 Delivery Dev Room Air Normal [facility] Comment on above: Performed By: #### L 9000.0800 ####[facility] [address] [place], [address] pCO2 53.7 mmHg High 35-45 [facility] Comment on above: Performed By: #### L 9000.0800 ####[facility] [address] [place], [address] pH (Bld) 7.38 [pH] Normal 7.35-7.45 [facility] Comment on above: Performed By: #### L 9000.0800 ####[facility] [address] [place], [address] PO2 65 mmHG Low 75-100 [facility] Comment on above: Performed By: #### L 9000.0800 ####[facility] [address] [place], [address] SITE L Brach Normal [facility] Comment on above: Performed By: #### L 9000.0800 ####[facility] [address] [place], [address] SO2 91 Low 95-99 [facility] Comment on above: Performed By: #### L 9000.0800 ####[facility] [address] [place], [address] Blood base excess determinat ionOrdered By: Miguel Ángel Liao on 08-27-2024 Base excess Calc (BldV) [Moles/Vol] 7 mmol/L High -2-2 [facility] Blood bicarbonate measuremen tOrdered By: Miguel Ángel Liao on 08-27-2024 Blood Gas Bicarbonate Actual 31.9 mmol/L High - [facility] HCO3 (Bld) [Moles/Vol] 31.9 mmol/L High - [facility] Brain W/WO Contraston 2024 Brain W/WO Contrast [facility] Imaging Services [address] [place] [address] Brain W/WO Contrast MR#: [id number] Acct: [id number] Name: ELIUD BLOUNT Rep #: [id number] : 1960 M 63 From: Bryan al MD PCP: Dr. Charan Arndt MD Status: DIS IN Study: Brain W/WO Contrast Date of Exam: 08/27/24 Exam# [id number] Ordering Dr: Hyun Duncan MD ADDENDUM by Dr. Bryan Uribe MD on 09/07/24 at 0844 10 cc IV Clariscan was administered. Reading Location: [facility] 09/07/24 0844 Date cc: Dr. Charan Arndt MD; Dr. Hyun Duncan MD * Signed PROCEDURE: TECHNIQUE: Multiplanar, multi-sequence MRI of brain was performed without and with IV contrast. FINDINGS: BRAIN/PARENCHYMA: No evidence of acute infarction or acute intracranial hemorrhage. There are subcortical and periventricular white matter FLAIR hyperintensities, likely related to chronic microvascular ischemic disease. Encephalomalacia and gliosis in right frontotemporal lobe. No abnormal post-contrast enhancement. EXTRA-AXIAL SPACES: No abnormal extra-axial fluid collections. Patent basal cisterns and foramen magnum. MIDLINE SHIFT: None. VENTRICLES: No hydrocephalus. SCALP SOFT TISSUES CALVARIUM: No significant abnormality. VISUALIZED SINUSES MASTOIDS: No air-fluid levels in the paranasal sinuses. The mastoid air cells are clear. ARTERIAL FLOW VOIDS: Preserved major arterial flow voids indicating gross patency. MRI/Brain W/WO Contrast IMPRESSION: 1. chronic microvascular ischemic disease. 2. Otherwise, unremarkable MRI of the brain without and with contrast. REASON FOR EXAM: No acute intracranial abnormality. Chronic microvascular ischemia and involutional changes. No suspicious intracranial mass, abnormal parenchymal or leptomeningeal enhancement COMPARISON: None. Reading Location: [facility] CC: Dr. Charan Arndt MD; Dr. Hyun Duncan MD Galley Hand: Signed Normal [facility] CBC W/Diff, Automatedon 08-14 Absolute Lymph 1.99 X10 3/uL Normal 0.83-4.51 [facility] Comment on above: Performed By: #### L 501.4021, L100.0100, L500.2500, L300.4310, L300.3900, L501.9100 #### [facility] [address] [place], [address] Absolute Neut 2.0 X10 3/uL Normal 2.0-7.7 [facility] Comment on above: Performed By: #### L 501.4021, L100.0100, L500.2500, L300.4310, L300.3900, L501.9100 #### [facility] [address] [place], [address] Basophils/100 WBC (Bld) 0.9 % Normal 0-1 [facility] Comment on above: Performed By: #### L 501.4021, L100.0100, L500.2500, L300.4310, L300.3900, L501.9100 #### [facility] [address] [place], [address] Eosinophils/100 WBC (Bld) 2.2 % Normal 0-5 [facility] Comment on above: Performed By: #### L 501.4021, L100.0100, L500.2500, L300.4310, L300.3900, L501.9100 #### [facility] [address] [place], [address] Erythrocyte distribution width (RBC) [Ratio] 13.1 % Normal 11.6-14.6 [facility] Comment on above: Performed By: #### L 501.4021, L100.0100, L500.2500, L300.4310, L300.3900, L501.9100 #### [facility] [address] [place], [address] Hematocrit (Bld) [Volume fraction] 40.2 % Normal 40-54 [facility] Comment on above: Performed By: #### L 501.4021, L100.0100, L500.2500, L300.4310, L300.3900, L501.9100 #### [facility] [address] [place], [address] Hemoglobin (Bld) [Mass/Vol] 13.2 g/dL Normal 13.0-16.5 [facility] Comment on above: Performed By: #### L 501.4021, L100.0100, L500.2500, L300.4310, L300.3900, L501.9100 #### [facility] [address] [place], [address] IG% 0.200 Normal 0.0-0.9 [facility] Comment on above: Result Comment: IG% - Immature Granulocytes (promyelocytes, myelocytes and metamyelocytes) > 1% indicates that a LEFT SHIFT is Present. Performed By: #### L 501.4021, L100.0100, L500.2500, L300.4310, L300.3900, L501.9100 #### [facility] [address] [place], [address] Lymphocytes/100 WBC (Bld) 43.8 % High 19-41 [facility] Comment on above: Performed By: #### L 501.4021, L100.0100, L500.2500, L300.4310, L300.3900, L501.9100 #### [facility] [address] [place], [address] MCH (RBC) [Entitic mass] 30.1 pg Normal 27.0-32.0 [facility] Comment on above: Performed By: #### L 501.4021, L100.0100, L500.2500, L300.4310, L300.3900, L501.9100 #### [facility] [address] [place], [address] MCHC (RBC) [Mass/Vol] 32.8 g/dL Normal 32-36 [facility] Comment on above: Performed By: #### L 501.4021, L100.0100, L500.2500, L300.4310, L300.3900, L501.9100 #### [facility] [address] [place], [address] MCV (RBC) [Entitic vol] 91.8 fL Normal 80-94 [facility] Comment on above: Performed By: #### L 501.4021, L100.0100, L500.2500, L300.4310, L300.3900, L501.9100 #### [facility] [address] [place], [address] Monocytes/100 WBC (Bld) 9.7 % Normal 0-10 [facility] Comment on above: Performed By: #### L 501.4021, L100.0100, L500.2500, L300.4310, L300.3900, L501.9100 #### [facility] [address] [place], [address] Neutrophils/100 WBC (Bld) 43.2 % Low 47-70 [facility] Comment on above: Performed By: #### L 501.4021, L100.0100, L500.2500, L300.4310, L300.3900, L501.9100 #### [facility] [address] [place], [address] Nucleated RBC (Bld) [#/Vol] 0 10*3/uL Normal 0-5 [facility] Comment on above: Performed By: #### L 501.4021, L100.0100, L500.2500, L300.4310, L300.3900, L501.9100 #### [facility] [address] [place], [address] Platelet mean volume (Bld) [Entitic vol] 9.0 fL Normal 6.2-12.0 [facility] Comment on above: Performed By: #### L 501.4021, L100.0100, L500.2500, L300.4310, L300.3900, L501.9100 #### [facility] [address] [place], [address] Platelets (Bld) [#/Vol] 262 10*3/uL Normal 150-450 [facility] Comment on above: Performed By: #### L 501.4021, L100.0100, L500.2500, L300.4310, L300.3900, L501.9100 #### [facility] [address] [place], [address] RBC (Bld) [#/Vol] 4.38 10*6/uL Low 4.6-6.2 [facility] Comment on above: Performed By: #### L 501.4021, L100.0100, L500.2500, L300.4310, L300.3900, L501.9100 #### [facility] [address] [place], [address] RDW SD 44.0 fl High 35.1-43.9 [facility] Comment on above: Performed By: #### L 501.4021, L100.0100, L500.2500, L300.4310, L300.3900, L501.9100 #### [facility] [address] [place], [address] WBC (Bld) [#/Vol] 4.5 10*3/uL Normal 4.4-11.0 [facility] Comment on above: Performed By: #### L 501.4021, L100.0100, L500.2500, L300.4310, L300.3900, L501.9100 #### [facility] [address] [place], [address] Carbon dioxide, total [Moles /volume] in Central venous bloodOrdered By: Miguel Ángel Liao on 08-27-2024 CO2 [Moles/Vol] 26.6 mmol/L 21.0-32.0 [facility] Chest 1 Viewon 08-27-2024 Chest 1 View [facility] Imaging Services [address] [place] [address] Chest 1 View MR#: [id number] Acct: [id number] Name: ELIUD BLOUNT Rep #: [id number] : 1960 M 63 From: Bijan lopez MD PCP: Dr. Charan Arndt MD Status: REG ER Study: Chest 1 View Date of Exam: 08/27/24 Exam# [id number] Ordering Dr: Miguel Ángel Liao MD PROCEDURE: CHEST 1 VIEW 08/27/2024 REASON FOR EXAM: NEURO DEFICIT, ACUTE, STROKE SUSPECTED TECHNIQUE: Frontal view of the chest. COMPARISON: Comparison is made with prior study dated March 28, 2024. FINDINGS: EKG electrodes are seen. Hyperinflation and COPD. Stable increased markings at the lung apices suggestive of scarring. Stable blunting of the right costophrenic angle. Tortuosity of the descending thoracic aorta. RAD/Chest 1 View IMPRESSION: Stable examination. Reading Location: [place] [address] CC: Dr. Miguel Ángel Liao MD; Dr. Charan Arndt MD Galley Hand: Signed Normal [facility] Chloride assayOrdered By: Chris Liao on 08-27-2024 Chloride [Moles/Vol] 100 mmol/L 98-108 [facility] Emergency Department Summary on 08-27-2024 Emergency Department Summary [facility] Medical Records Department [address] [place] [address] Emergency Department Summary 08/27/24 MR#: [id number] Acct: [id number] Name: ELIUD BLOUNT Rep #: [id number] : 1960 63 From: Miguel Ángel Liao MD PCP: Dr. Charan Ardnt MD Status:REG ER Location: ED ADDENDUM by Dr. Miguel Ángel Liao MD on 08/27/24 at 1654 EKG had been obtained as well as part of the stroke workup and interpreted by myself independently as normal sinus rhythm at 81 bpm without ectopy or acute ST changes. No STEMI. 08/27/24 8876 Cosigner Signature (if applicable): cc: Dr. Charan Arndt MD * Signed HPI History of Present Illness Chief Complaint: Unresponsive Narrative Narrative: 63-year-old male past medical history of COPD, presents with decreased mental status. History and physical is unobtainable from patient secondary to current mental have an hour prior to arrival, he had butted his dog. He had been feeling weak and lightheaded, and fell again and hit his head against a radiator. He was awake, alert and talking intermittently for EMS, but they noticed aphasia and decline in his mental status and route. They called prehospital stroke team because of his expressive aphasia and unresponsiveness. Blood sugar was checked and was normal. EMS did not notice any outward signs of trauma to his head. He does not take blood thinners. He presents as a prehospital stroke team. [facility] Medical History (Updated 08/27/24 @ 16:49 by Miguel Ángel Liao MD) Pneumonia Pneumonia Left ankle injury Bilateral tennis elbow Depression Sepsis LACEY (obstructive sleep apnea) Lung nodule Hoarseness Sleep-related breathing disorder Pneumonia Encephalopathy Acute respiratory failure COPD (chronic obstructive pulmonary disease) GERD (gastroesophageal reflux disease) Bipolar disorder Migraine Tobacco abuse Spinal stenosis Traumatic brain injury Home Medications ???Medication ???Instructions ???Recorded ???Last Taken ???Type levetiracetam 500 mg tablet 500 mg PO DAILY Check with primary 04/28/20 03/28/24 History doctor divalproex 250 mg tablet,delayed 750 mg PO BID 03/28/24 03/28/24 Hi story release ibuprofen 200 mg tablet (Addaprin) 400 mg PO Q8H PRN pain 03/28/24 03/28/24 History albuterol sulfate 2.5 mg/3 mL 2.5 mg (3 mL) inhalation Q4H PRN 1 Unknown Rx (0.083 %) solution for nebulization #120 vials fluticasone fur. 200 mcg-umeclid 1 inh inhalation DAILY #60 ea 03/18 07/09 Unknown Rx 62.5 mcg-vilant 25 mcg inhalat.powder (Trelegy Ellipta) Disability Placard #1 ea 06/14/24 Unknown Rx fluticasone propionate 50 2 spray intranasal DAILY #16 grams 06/14/24 Unknown Rx mcg/actuation nasal spray,suspension albuterol sulfate 90 mcg/actuation 2 puff inhalation Q4H PRN Unknown Rx aerosol inhaler shortness of breath or wheezing #8.5 grams amitriptyline 100 mg tablet 100 mg PO QHS PRN sleep 07/27/24 U nknown History ipratropium bromide 42 mcg (0.06 2 spray intranasal TID #15 mL 07/17 07/10 Unknown Rx %) nasal spray gabapentin 800 mg tablet 800 mg PO TID 08/27/24 Unknown His tory guaifenesin 1,200 mg tablet, 1,200 mg PO Q12H PRN cough 5 Unknown History extended release 12 hr Allergy/AdvReac Type Severity Reaction Status Date / Time dextromethorphan HBr (From AdvReac Intermediate tachycardia, Verified 08/27/24 14:30 NyQuil) feels anxious doxylamine (From NyQuil) AdvReac Intermediate Tachycardia, Verified 08/27/24 14:30 feels anxious pseudoephedrine HCl (From AdvReac Intermediate Tachycardia, Verified 08/27/24 14:30 NyQuil) feels anxious sertraline HCl (From Zoloft) AdvReac Diarrhea Verified 08/27/24 14:30 Family History Father Dementia Alzheimers disease Diabetes Mother Diabetes Surgical History History of hernia repair Social History Smoking Status: Heavy Smoker (>10/day) Tobacco: How many years used: 30 second hand exposure: Yes alcohol intake: never substance use type: does not use ROS ROS ED Review of Systems ROS Unobtainable: due to mental status EXAM Physical Exam Narrative Exam Narrative: Afebrile. Vital signs noted. Nontoxic-appearing. Barely opens his eyes to sternal rub. Cardiovascular examination regular rate and rhythm. Lungs are clear to auscultation bilaterally. No tachypnea. Abdomen soft and nontender. No noted pedal edema. Const Vital Signs: 08/27/24 14:22 08/27/24 14:27 08/27/24 14:34 Temperature Temperature Source Pulse Rate 84 Respiratory Rate 12 Respiratory Effort Normal Non-Labored Respiratory Pattern Normal Bl (more content not included)... Normal [facility] Eosinophil percentageOrdered By: Miguel Ángel Liao on 08-27-2024 Eosinophils/100 WBC (Bld) 2.2 % 0-5 [facility] Erythrocyte distribution wid th ratioOrdered By: Miguel Ángel Liao on 08-27-2024 Erythrocyte distribution width (RBC) [Ratio] 13.1 % 11.6-14.6 [facility] Erythrocyte distribution wid th standard deviationOrdered By: Miguel Ángel Liao on 08-27-2024 Erythrocyte distribution width (RBC) [Entitic vol] 44.0 fL High 35.1-43.9 [facility] Erythrocyte distribution width (RBC) [Ratio] 44.0 fl High 35.1-43.9 [facility] Estimation of creatinine michelle aranceOrdered By: Miguel Ángel Liao on 08-27-2024 Estimated Creatinine Clearance Calc 84.17 ml/min 50-250 [facility] Ethanol [Mass/Vol]Ordered By : Miguel Ángel Liao on 08-27-2024 Ethyl Alcohol Level < 10.1 mg/dL <10.1 [facility] Comment on above: This test is for med ical purposes only. The legal definition of intoxication varies according to local law. GFR/1.73 sq M.predicted mango g non-blacks MDRD (S/P/Bld) [Vol rate/Area]Ordered By: Miguel Ángel Liao on 08-27-2024 Estimated GFR (MDRD) Non-Af Amer 103 >60 [facility] Comment on above: mL/min/1.73m2 CKD-EP I Creatinine Equation (2020) Glomerular filtration rate ( GFR) estimation/1.73 sq m using serum, plasma, or whole bOrdered By: Miguel Ángel Liao on 08-27-2024 GFR/1.73 sq M.predicted among non-blacks MDRD (S/P/Bld) [Vol rate/Area] 103 mL/min/{1.73_m2} >60 [facility] Comment on above: mL/min/1.73m2 CKD-EP I Creatinine Equation (2021) H AND P Exam - [facility] 08-27-2024 H&P Exam - Hospitalist [facility] Medical Records Department [address] [place] [address] H P Exam - Hospitalist 08/27/24 1640 MR#: [id number] Acct: [id number] Name: ELIUD BLOUNT Rep #: [id number] : 1960 63 From: Hyun Duncan MD PCP: Dr. Charan Arndt MD Status:ADM IN Location: ICU [id number] HPI - General General Date of Service: 08/27/24 HPI Narrative ELIUD BLOUNT, is a 63 M with a PMH as outlined who presents via the ED with a complaint of altered mental status. Pateient could not give much of a history. Per ED doctor, patient had apparently been feeling weak and lightheaded and fell and hit his head against a radiator. He had expressive aphasia and was lethargic. He head butted his dog, according to his son. He has a history of COPD and is on the lung transplant list at [facility]. He was brought in to the ED due to concern about a stroke. Vitals in the ED were BP oif 101/74, NM of 73, RR of 10 and oxygen sats of 92% on room air. CBC showed Hb of 13.2, wbc of 4.5 and platelets of 262. INR is 1.1. ABG showd pH of 7.38, pCO2 of 53.7 and pO2 of 65. CHemistry showed sodium of 138, potassium of 3.6 and bicarb of 26.6. Cr is 0.73. Initial troponin was 23 and blood sugar was 147. Urine tox was pending, though his did say he has been on methamphetamines. Serum alcohol level was <7. 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 CTA of the head and neck showed minimal plaque at the origin of the right internal carotid artery. He is being admitted to be managed for acute encephalopathy of unclear etiology. [facility] Medical History (Updated 08/27/24 @ 16:49 by Miguel Ángel Liao MD) Pneumonia Pneumonia Left ankle injury Bilateral tennis elbow Depression Sepsis LACEY (obstructive sleep apnea) Lung nodule Hoarseness Sleep-related breathing disorder Pneumonia Encephalopathy Acute respiratory failure COPD (chronic obstructive pulmonary disease) GERD (gastroesophageal reflux disease) Bipolar disorder Migraine Tobacco abuse Spinal stenosis Traumatic brain injury Home Medications ???Medication ???Instructions ???Recorded ???Last Taken ???Type levetiracetam 500 mg tablet 500 mg PO DAILY Check with primary 04/28/20 03/28/24 History doctor divalproex 250 mg tablet,delayed 750 mg PO BID 03/28/24 03/28/24 Hi story release ibuprofen 200 mg tablet (Addaprin) 400 mg PO Q8H PRN pain 03/28/24 03/28/24 History albuterol sulfate 2.5 mg/3 mL 2.5 mg (3 mL) inhalation Q4H PRN 1 Unknown Rx (0.083 %) solution for nebulization #120 vials fluticasone fur. 200 mcg-umeclid 1 inh inhalation DAILY #60 ea 03/18 07/09 Unknown Rx 62.5 mcg-vilant 25 mcg inhalat.powder (Trelegy Ellipta) Disability Placard #1 ea 06/14/24 Unknown Rx fluticasone propionate 50 2 spray intranasal DAILY #16 grams 06/14/24 Unknown Rx mcg/actuation nasal spray,suspension albuterol sulfate 90 mcg/actuation 2 puff inhalation Q4H PRN Unknown Rx aerosol inhaler shortness of breath or wheezing #8.5 grams amitriptyline 100 mg tablet 100 mg PO QHS PRN sleep 07/27/24 U nknown History ipratropium bromide 42 mcg (0.06 2 spray intranasal TID #15 mL 07/17 07/10 Unknown Rx %) nasal spray gabapentin 800 mg tablet 800 mg PO TID 08/27/24 Unknown His tory guaifenesin 1,200 mg tablet, 1,200 mg PO Q12H PRN cough 5 Unknown History extended release 12 hr Allergy/AdvReac Type Severity Reaction Status Date / Time dextromethorphan HBr (From AdvReac Intermediate tachycardia, Verified 08/27/24 14:30 NyQuil) feels anxious doxylamine (From NyQuil) AdvReac Intermediate Tachycardia, Verified 08/27/24 14:30 feels anxious pseudoephedrine HCl (From AdvReac Intermediate Tachycardia, Verified 08/27/24 14:30 NyQuil) feels anxious sertraline HCl (From Zoloft) AdvReac Diarrhea Verified 08/27/24 14:30 Family History Father Dementia Alzheimers disease Diabetes Mother Diabetes Surgical History History of hernia repair Social History Smoking Status: Heavy Smoker (>10/day) Tobacco: How many years used: 30 second hand exposure: Yes alcohol intake: never substance use type: does not use ROS ROS Narrative unable to do review of systems due to confusion. Review of Systems ROS Unobtainable: due to encephalopathy Vital Signs Vital Signs Vital Signs: 08/27/24 14:22 08/27/24 14:27 08/27/24 14:34 Temperature Temperature Source Pulse Rate 84 Respiratory Rate 12 Respiratory Effort Normal Non-Labored (more content not included)... Normal [facility] Hematocrit Auto (Bld) [Volum e fraction]Ordered By: Miguel Ángel Liao on 08-27-2024 Hematocrit (Bld) [Volume fraction] 40.2 % 40-54 [facility] Hemoglobin measurementOrdere d By: Miguel Ángel Liao on 08-27-2024 Hemoglobin (Bld) [Mass/Vol] 13.2 g/dL 13.0-16.5 [facility] Immature granulocytes/100 WB C Auto (Bld)Ordered By: Miguel Ángel Liao on 08-27-2024 Immature granulocytes/100 WBC (Bld) 0.200 % 0.0-0.9 [facility] Comment on above: IG% - Immature Granu locytes (promyelocytes, myelocytes and metamyelocytes) > 1% indicates that a LEFT SHIFT is Present. International normalized rat io (INR) calculationOrdered By: Miguel Ángel Liao on 08-27-2024 INR Coag (Bld) [Relative time] 1.1 {INR} [facility] L499.0042on 08-27-2024 Trop T High Sen 33 ng/L High <=22 [facility] Comment on above: Performed By: #### L 499.0042 #### [facility] [address] [place], [address] L499.0043on 08-27-2024 Trop T High Sen 18 ng/L Normal <=22 [facility] Comment on above: Performed By: #### L 499.0043 ####[facility] [address] [place], [address] L501.4021on 08-27-2024 Trop T High Sen 23 ng/L High <=22 [facility] Comment on above: Performed By: #### L 501.4021, L100.0100, L500.2500, L300.4310, L300.3900, L501.9100 ####[facility] [address] [place], [address] Lymphocytes Auto (Unsp spec) [#/Vol]Ordered By: Miguel Ángel Liao on 08-27-2024 Lymphocytes (Bld) [#/Vol] 1.99 10*3/uL 0.83-4.51 [facility] Lymphocytes/100 WBC Auto (Un sp spec)Ordered By: Miguel Ángel Liao on 08-27-2024 Lymphocytes/100 WBC (Bld) 43.8 % High 19-41 [facility] MCV (mean corpuscular volume ) determinationOrdered By: Miguel Ángel Liao on 08-27-2024 MCV (RBC) [Entitic vol] 91.8 fL 80-94 [facility] Magnetic resonance imaging r eportOrdered By: Bryan Uribe on 08-27-2024 Study report [facility] Imaging Services [address] [place] [place] [address] Brain W/WO Contrast MR#: [id number] Acct: [id number] Name: ELIUD BLOUNT Rep #: [id number] : 1960 M 63 From: Lacey Uribe MD PCP: Dr. Charan Arndt MD Status: ADM I N Study:Brain W/WO Contrast Date of Exam: 08/27/24 Exam# [id number] Ordering Dr: Liseth Duncan MD PROCEDURE: TECHNIQUE: Multiplanar, multi-sequence MRI of brain was performed without and with IV contrast. FINDINGS: BRAIN/PARENCHYMA: No evidence of acute infarction or acute intracranial hemorrhage. There are subcortical and periventricular white matter FLAIR hyperintensities, likely related to chronic microvascular ischemic disease. Encephalomalacia and gliosis in right frontotemporal lobe. No abnormal post-contrast enhancement. EXTRA-AXIAL SPACES: No abnormal extra-axial fluid collections. Patent basal cisterns and foramen magnum. MIDLINE SHIFT: None. VENTRICLES: No hydrocephalus. SCALP SOFT TISSUES & CALVARIUM: No significant abnormality. VISUALIZED SINUSES & MASTOIDS: No air-fluid levels in the paranasal sinuses. Themastoid air cells are clear. ARTERIAL FLOW VOIDS: Preserved major arterial flow voids indicating gross patency. MRI/Brain W/WO Contrast IMPRESSION: 1. chronic microvascular ischemic disease. 2. Otherwise, unremarkable MRI of the brain without and with contrast. REASON FOR EXAM: No acute intracranial abnormality. Chronic microvascular ischemia and involutional changes. No suspicious intracranial mass, abnormal parenchymal or leptomeningeal enhancement COMPARISON: None. Reading Location: [place] CC: Dr. Charan Arndt MD; Dr. Hyun Duncan MD ~ [place] Hand: Signed [facility] Mean corpuscular hemoglobin (MCH) determinationOrdered By: Miguel Ángel Liao on 08-27-2024 MCH (RBC) [Entitic mass] 30.1 pg 27.0-32.0 [facility] Mean corpuscular hemoglobin concentration (MCHC) determinationOrdered By: Miguel Ángel Liao on 08-27-2024 MCHC (RBC) [Mass/Vol] 32.8 g/dL 32-36 [facility] Mean platelet volume determi nationOrdered By: Miguel Ángel Liao on 08-27-2024 Platelet mean volume (Bld) [Entitic vol] 9.0 fL 6.2-12.0 [facility] Measurement, pHOrdered By: Jesús Liao on 08-27-2024 pH (Unsp spec) 7.38 [pH] 7.35-7.45 [facility] Methadone, urineOrdered By: Miguel Ángel Liao on 08-27-2024 Urine Methadone Screen Negative < 300 ng/mL [facility] Monocyte percentageOrdered B y: Miguel Ángel Liao on 08-27-2024 Monocytes/100 WBC (Bld) 9.7 % 0-10 [facility] Neutrophil percentageOrdered By: Miguel Ángel Liao on 08-27-2024 Neutrophils/100 WBC (Bld) 43.2 % Low 47-70 [facility] No Panel InformationOrdered By: Miguel Ángel Liao on 08-27-2024 Urine Buprenorphine Qualitative Negative < 200 ng/mL [facility] Urine Oxycodone Screen Negative < 100 ng/mL [facility] Blood Gas Sample Site L Brach [facility] Blood Gas Specimen Type ART [facility] Blood Gas Vent Mode Not entered [facility] Oxygen Delivery Device Room Air [facility] Troponin T High Sensitivity 23 ng/L High <22 [facility] Nucleated red blood cell per centageOrdered By: Miguel Ángel Liao on 08-27-2024 Nucleated RBC/100 WBC (Bld) [Ratio] 0 % 0-5 [facility] Oxygen saturation measuremen tOrdered By: Miguel Ángel Liao on 08-27-2024 Blood Gas Oxygen Saturation 91 % Low 95-99 [facility] Partial Thromboplast Timeon 08-27-2024 aPTT Coag (Bld) [Time] 31.6 s Normal 24.1-36.2 [facility] Comment on above: Performed By: #### L 501.4021, L100.0100, L500.2500, L300.4310, L300.3900, L501.9100 #### [facility] [address] [place], [place], [id number] Partial pressure of carbon d ioxide measurementOrdered By: Miguel Ángel Liao on 08-27-2024 Arterial Blood Partial Pressure CO2 53.7 mmHg High 35-45 [facility] Partial pressure of oxygen m easurementOrdered By: Miguel Ángel Liao on 08-27-2024 Arterial Blood Partial Pressure O2 65 mmHG Low 75-100 [facility] Platelet countOrdered By: Chris Liao on 08-27-2024 Platelets (Bld) [#/Vol] 262 10*3/uL 150-450 [facility] Potassium (Unsp spec) [Mass/ Vol]Ordered By: Miguel Ángel Liao on 08-27-2024 Potassium [Moles/Vol] 3.6 mmol/L 3.3-5.1 [facility] Potassium measurement (mass/ volume)Ordered By: Miguel Ángel Liao on 08-27-2024 Potassium (Unsp spec) [Mass/Vol] 3.6 mmol/L 3.3-5.1 [facility] Prothrombin Time w/INRon INR Coag (PPP) [Relative time] 1.1 {INR} Normal [facility] Comment on above: Performed By: #### L 501.4021, L100.0100, L500.2500, L300.4310, L300.3900, L501.9100 #### [facility] [address] [place], [place], [id number] (219) PT Coag (PPP) [Time] 13.9 s Normal 11.7-14.9 [facility] Comment on above: Performed By: #### L 501.4021, L100.0100, L500.2500, L300.4310, L300.3900, L501.9100 #### [facility] [address] [place], [place], [phone] (349) Prothrombin timeOrdered By: Miguel Ángel Liao on 08-27-2024 PT Coag (PPP) [Time] 13.9 s 11.7-14.9 [facility] Quantitative urine opiates m easurementOrdered By: Miguel Ángel Liao on 08-27-2024 Opiates Ql (U) Negative < 300 ng/mL [facility] RBC Auto (Bld) [#/Vol]Ordere d By: Miguel Ángel Liao on 08-27-2024 RBC (Bld) [#/Vol] 4.38 10*6/uL Low 4.6-6.2 [facility] STROKE Brain/Head without Co nton 08-27-2024 STROKE Brain/Head without Cont [facility] Imaging Services [address] [place], [place] [address] STROKE Brain/Head without Cont MR#: [id number] Acct: [id number] Name: ELIUD BLOUNT Rep #: [id number] : 1960 M 63 From: Bijan lopez MD PCP: Dr. Charan Arndt MD Status: REG ER Study: STROKE Brain/Head without Cont Date of Exam: 0 08/27/24 Exam# [id number] Ordering Dr: Miguel Ángel Liao MD EXAM: STROKE BRAIN/HEAD WITHOUT CONT CLINICAL HISTORY: NEURO DEFICIT, ACUTE, STROKE SUSPECTED COMPARISON: Comparison is made with prior study dated March 29, 2024. TECHNIQUE: Multiple axial tomographic images were obtained without intravenous contrast administration. Coronal and sagittal reconstruction was obtained as well. 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 There is evidence of encephalomalacia at that site. No new bleed or acute stroke is seen. CT/STROKE Brain/Head without Cont IMPRESSION: No acute stroke is seen. Red Alert: No acute stroke is seen. The critical information above was relayed directly by me by telephone to Miguel Ángel Liao on 08/27/2024 at 2:36 pm with readback verification. Reading Location: [place] [address] CC: Dr. Miguel Ángel Liao MD; Dr. Charan rAndt MD [place] Hand: Signed Normal [facility] STROKE CTA Head AND Neck W/C onon 08-27-2024 STROKE CTA Head AND Neck W/Con [facility] Imaging Services [address] [place], [place] [address] STROKE CTA Head AND Neck W/Con MR#: [id number] Acct: [id number] Name: ELIUD BLOUNT Rep #: [id number] : 1960 M 63 From: Bijan lopez MD PCP: Dr. Charan Arndt MD Status: REG ER Study: STROKE CTA Head AND Neck W/Con Date of Exam: 0 08/27/24 Exam# [id number] Ordering Dr: Miguel Ángel Liao MD PROCEDURE: STROKE CTA HEAD AND NECK W/CON REASON FOR EXAM: NEURO DEFICIT, ACUTE, STROKE SUSPECTED TECHNIQUE: CTA imaging of the head and neck from the aortic arch to the skull vertex with intravenous contrast. 3D reconstructions. CONTRAST: 100 cc of Isovue-300. COMPARISON: Comparison is made with prior CT scan of the head done earlier in the day. FINDINGS: Aortic Arch: Normal size and branching pattern. No significant atherosclerotic plaque. Brachiocephalic and Subclavians: Unremarkable RIGHT Carotid: Right CCA: Unremarkable. Right ICA: Minimal plaque at the origin of the right internal carotid artery. Maximum stenosis (NASCET): <50% % Right ECA: Unremarkable. LEFT Carotid: Left CCA: Unremarkable. Left ICA: Unremarkable. Left ECA: Unremarkable. Vertebrals: Codominant. Arise from the subclavians. Both vertebrals form the basilar. RIGHT Vertebral: Unremarkable. LEFT Vertebral: Unremarkable. No intracranial aneurysms or large vascular malformations are identified. Anterior cerebral arteries: Unremarkable. Middle cerebral arteries: Unremarkable. Basilar artery: Unremarkable. Posterior cerebral arteries: Unremarkable. Other major branches of the posterior circulation: Unremarkable. Major venous structures: Unremarkable. Other findings: No lymphadenopathy. Lung apices are clear. Bones are unremarkable. CT/STROKE CTA Head AND Neck W/Con IMPRESSION: RIGHT CAROTID: Minimal plaque at the origin of the right internal carotid artery. LEFT CAROTID: Unremarkable VERTEBRALS: Unremarkable INTRACRANIAL: Unremarkable One or more dose reduction techniques were used (e.g., Automated exposure control, adjustment of the mA and/or kV according to patient size, use of iterative reconstruction technique). Red Alert: The critical information above was relayed directly by me by telephone to Miguel Ángel Liao on 08/27/2024 at 2:50 pm with readback verification. Reading Location: [facility] CC: Dr. Miguel Ángel Liao MD; Dr. Charan Arndt MD [place] Hand: Signed Normal [facility] Screening urine fentanyl roxie surementOrdered By: Miguel Ángel Liao on 08-27-2024 fentaNYL Screen Ql (U) Negative [facility] Serum creatinine measurement (mass/volume)Ordered By: Miguel Ángel Liao on 08-27-2024 Creatinine [Mass/Vol] 0.73 mg/dL 0.70-1.20 [facility] Serum glucose measurement (m ass/volume)Ordered By: Miguel Ángel Liao on 08-27-2024 Glucose [Mass/Vol] 147 mg/dL High 70-99 [facility] Serum or plasma calcium tonio urement (mass/volume)Ordered By: Miguel Ángel Liao on 08-27-2024 Calcium [Mass/Vol] 8.8 mg/dL 7.6-11.0 [facility] Serum or plasma ethanol tonio urement (mass/volume)Ordered By: Miguel Ángel Liao on 08-27-2024 Ethanol [Mass/Vol] mg/dL <10.1 [facility] Comment on above: This test is for med ical purposes only. The legal definition of intoxication varies according to local law. Serum or plasma urea nitroge n measurement (mass/volume)Ordered By: Miguel Ángel Liao on 08-27-2024 Urea nitrogen [Mass/Vol] 22 mg/dL High 4-19 [facility] Sodium levelOrdered By: Miguel Ángel Liao on 08-27-2024 Sodium [Moles/Vol] 138 mmol/L 133-145 [facility] TSH DL <= 0.005 mIU/L QnOrde red By: Miguel Ángel Liao on 08-27-2024 Thyroid Stimulating Hormone (TSH) 1.320 uIU/mL 0.300-4.200 [facility] TSH Qn 1.320 uIU/mL 0.300-4.200 [facility] Thyroid Stim Hormone (TSH)on 08-27-2024 TSH 1.320 uIU/mL Normal 0.300-4.200 [facility] Comment on above: Performed By: #### L 501.9520 #### [facility] [address] [place], [place] [address], [address] Total carbon dioxide measure mentOrdered By: Miguel Ángel Liao on 08-27-2024 Blood Gas Total CO2 34 mmol/L [facility] CO2 [Moles/Vol] 34 mmol/L [facility] Troponin T.cardiac High sens itivity method [Mass/Vol]Ordered By: Miguel Ángel Liao on 08-27-2024 Troponin T High Sensitivity 4 Hour 18 ng/L <22 [facility] Troponin T High Sensitivity 2 Hour 33 ng/L High <22 [facility] Troponin T.cardiac [Mass/vol ume] in Serum or Plasma by High sensitivity methodOrdered By: Miguel Ángel Liao on 08-27-2024 Troponin T.cardiac High sensitivity method [Mass/Vol] 18 ng/L <22 [facility] Troponin T.cardiac High sensitivity method [Mass/Vol] 33 ng/L High <22 [facility] Urine Drug Screen (VISTA)on 08-27-2024 AMPHETAMINES Positive Normal <1000 ng/mL [facility] Comment on above: Result Comment: If c onfirmation testing is needed, a separate order will be required to send out testing to the reference laboratory. Performed By: #### L 505.5000 #### [facility] [address] [place], [place], [facility] BARBITIURATES Negative Normal < 200 ng/mL [facility] Comment on above: Performed By: #### L 505.5000 #### [facility] [address] [place] [address] BENZODIAZIPINE Negative Normal < 200 ng/mL [facility] Comment on above: Performed By: #### L 505.5000 #### [facility] [address] [place], [address] BUP Ur Drug Scr Negative Normal < 200 ng/mL [facility] Comment on above: Performed By: #### L 505.5000 #### [facility] [address] [facility] [address] COCAINE Negative Normal < 300 ng/mL [facility] Comment on above: Performed By: #### L 505.5000 #### [facility] [address] [place], [address] Fentanyl Negative Normal [facility] Comment on above: Performed By: #### L 505.5000 #### [facility] [address] [place] [address] METHADONE Negative Normal < 300 ng/mL [facility] Comment on above: Performed By: #### L 505.5000 #### [facility] [address] [place], [address] OPIATES Negative Normal < 300 ng/mL [facility] Comment on above: Performed By: #### L 505.5000 #### [facility] [address] [place] [address] OXYCODONE Negative Normal < 100 ng/mL [facility] Comment on above: Performed By: #### L 505.5000 #### [facility] [address] [address] [place] [address] PCP Negative Normal < 25 ng/mL [facility] Comment on above: Performed By: #### L 505.5000 #### [facility] [address] [place] [address] THC Negative Normal < 50 ng/mL [facility] Comment on above: Performed By: #### L 505.5000 #### [facility] [address] [place] [address] Urine benzodiazepine levelOr dered By: Miguel Ángel Liao on 08-27-2024 Benzodiazepines Ql (U) Negative < 200 ng/mL [facility] Urine cocaine levelOrdered B y: Miguel Ángel Liao on 08-27-2024 Cocaine Ql (U) Negative < 300 ng/mL [facility] Urine trecm-1-wvakflfybtwray abinol (THC) measurementOrdered By: Miguel Ángel Liao on 08-27-2024 Cannabinoids Screen Ql (U) Negative < 50 ng/mL [facility] Urine phencyclidine (PCP) de tectionOrdered By: Miguel Ángel Liao on 08-27-2024 Phencyclidine Ql (U) Negative < 25 ng/mL [facility] Venous blood ammonia measure mentOrdered By: Miguel Ángel Liao on 08-27-2024 Ammonia (P) [Moles/Vol] 38.6 umol/L 16-60 [facility] White blood cell (WBC) count Ordered By: Miguel Ángel Liao on 08-27-2024 WBC (Bld) [#/Vol] 4.5 10*3/uL 4.4-11.0 [facility] aPTT Coag (PPP) [Time]Ordere d By: Miguel Ángel Liao on 08-27-2024 aPTT Coag (Bld) [Time] 31.6 s 24.1-36.2 [facility] fentaNYL Screen Ql (U)Ordere d By: Miguel Ángel Liao on 08-27-2024 Urine Fentanyl Screen Negative [facility] pH (Unsp spec)Ordered By: Chris Liao on 08-27-2024 Blood Gas pH 7.38 7.35-7.45 [facility] Pulmonary Visit Reporton Pulmonary Visit Report [facility] [place] [address] [place] [address] OFFICE VISIT Date of Service: 07/27/24 MR#: [id number] Acct: [id number] Name: ELIUD BLOUNT Rep #: [id number] : 1960 Provider: Nicki Pantoja NP Age/Sex: 63/M Location: [facility] [place] [facility] Status: Signed Assessment and Plan Assessment and Plan (1) Stage 4 very severe COPD by GOLD classification: Status: Chronic Comment: FEV1 32% of predicted Plan: Deteriorated. I do not believe he is in an exacerbation of COPD today. I suspect disease progression due to ongoing smoking versus congestive heart failure/cor pulmonale. Significant reduction seen in gas transfer. I am suspecting that this is due to the progression of COPD but also could be related to congestive heart failure with worsening shortness of breath, fatigue, pedal edema. The DLCO does not correct for anemia. I have recommended that he obtain BNP/BMP now and will consider treatment with 20 mg of Lasix for 3 days if the BNP is elevated. Continue on triple therapy on Trelegy. He has had difficulty obtaining his maintenance inhaler on schedule through mail order. He is considering an alternative pharmacy. I have sent his albuterol refill to a local pharmacy. Contact the office for any new or worsening symptoms. (2) Chronic respiratory failure: Status: Chronic Qualifiers: Respiratory failure complication: hypoxia Qualified Code(s): J96.11 - Chronic respiratory failure with hypoxia Plan: He is using and benefiting from supplemental oxygen. He understands the goal is to maintain a oxygen saturation of 89 to 92%. I have asked for him to obtain a portable pulse oximetry at the local pharmacy and he is agreeable so that he can monitor his oxygen saturations. (3) Nicotine dependence, cigarettes, uncomplicated: Status: Chronic Plan: Complete smoking cessation is recommended. The patient understands that this is likely causing disease progression and worsening symptoms. He is working to reduce his smoking. I recommend that he continue with annual low-dose screening lung CT and this will be due in June 2025, ordered accordingly. (4) LACEY (obstructive sleep apnea): Status: Chronic Comment: CPAP 11 cm of water Plan: Deteriorated. He continues poor compliance. Likely contributing to his shortness of breath and increases his risk of cardiovascular comorbid conditions. He conveys understanding. He reports that some of the reason he has not been using it is because he has nasal congestion and post nasal drip. I am going to start him on a trial of ipratropium bromide nasal spray as fluticasone did not give him benefit. Follow up in 8 weeks to evaluate his compliance report and symptoms. Orders: Orders Basic Metabolic Profile (BMP) Today R06.02 - Shortness of breath BNP,B-Type NATRIURETIC PEPTIDE Today R06.02 - Shortness of breath Low Dose CT Lung Screening 11 Months F17.210 - Nicotine dependence, cigarettes, uncomplicated Medications: New ipratropium bromide administer into each nostril 2 sprays intranasal TID 15 mL 0RF Refilled albuterol sulfate 90 mcg/actuation administer with spacer 2 puffs inhalation Q4H PRN 8.5 grams 11RF shortness of breath or wheezing J96.11 - Chronic respiratory failure with hypoxia Plan Details Follow Up: 8 Weeks (LMR) HPI HPI Comments Details: Patient is a 63-year-old male who presents to the office today to discuss test results. He is ambulatory and currently on room air. He is here today to review recent testing due to worsening shortness of breath. He reports that he has difficulty with shortness of breath and describes a situation that he tried to move his Raj and was too weak and short of breath. He continues with use of Trelegy 1 puff daily. He denies any side effect to the inhaler such as sore throat or thrush as he is performing oral care after use. He is currently not utilizing albuterol, he does not have it on hand. He is asking to have some on hand. The patient does report shortness of breath that is worse with exertion and he has noticed more weakness. He denies cough and sputum production. He denies any hemoptysis. He denies wheezing, chest tightness, chest pain or palpitations. He is reporting a frequent runny nose that is worse when he goes outside or when it is windy outdoors. He also denies any fever, chills or body aches. He also reports post nasal drip and nasal congestion. He has noticed some lower extremity swelling. He has never been on Lasix. He reports that he does not have a history of congestive heart failure. He continues to smoke cigarettes. He is currently smoking 1 pack every 3 days. He admits he still is not using his pap device much. He reports that the nasal congestion and post nasal drip makes it difficult to tolerate. He notices that when he is able to (more content not included)... Normal [facility] Orthopedic Visit Reporton Orthopedic Visit Report [facility] [address] [place] [address] OFFICE VISIT Date of Service: 07/12/24 MR#: [id number] Acct: [id number] Name: ELIUD BLOUNT Rep #: [id number] : 1960 Provider: Dr. Erick Hernández MD Age/Sex: 63/M Location: [facility] [place] Status: Signed Intake Vital Signs 07/02/24 08:40 Height 5 ft 8 in Weight: 120 lb Pulse 89 Pulse Oximetry (%) 98 Oxygen Flow Rate (L/min) 2 Intake Visit Reasons: CERVICAL SPINE Chief Complaint: MRI review Accompanied by: Self Is patient in pain?: Yes Pain scale (1-10): 6 Allergies dextromethorphan HBr (From NyQuil) Adverse Reaction (Intermediate, Verified 07/12/24 13:36) tachycardia, feels anxious doxylamine (From NyQuil) Adverse Reaction (Intermediate, Verified 07/12/24 13:36) Tachycardia, feels anxious pseudoephedrine HCl (From NyQuil) Adverse Reaction (Intermediate, Verified 07/12/24 13:36) Tachycardia, feels anxious sertraline HCl (From Zoloft) Adverse Reaction (Verified 07/12/24 13:36) Diarrhea Medications ???Medication ???Instructions ???Recorded ???Confirmed ???Type amitriptyline 100 mg tablet 100 mg PO QHS sleep 06/30/19 07/12/24 History levetiracetam 500 mg tablet 500 mg PO DAILY Check with primary 04/28/20 07/12/24 History doctor divalproex 250 mg tablet,delayed 750 mg PO BID 03/28/24 07/12/24 History release ibuprofen 200 mg tablet (Addaprin) 400 mg PO Q8H PRN pain 03/28/24 07/12/24 History albuterol sulfate 2.5 mg/3 mL 2.5 mg (3 mL) inhalation Q4H PRN 04/15/24 07/12/24 Rx (0.083 %) solution for nebulization #120 vials albuterol sulfate 90 mcg/actuation 2 puff inhalation Q4H PRN 04/15/24 07/12/24 Rx aerosol inhaler shortness of breath or wheezing #8.5 grams fluticasone fur. 200 mcg-umeclid 1 inh inhalation DAILY #60 ea 04/15/24 07/12/24 Rx 62.5 mcg-vilant 25 mcg inhalat.powder (Trelegy Ellipta) gabapentin 600 mg tablet 800 mg PO TID 05/27/24 07/12/24 History Disability Placard #1 ea 06/14/24 07/12/24 Rx fluticasone propionate 50 2 spray intranasal DAILY #16 grams 06/14/24 07/12/24 Rx mcg/actuation nasal spray,suspension guaifenesin 1,200 mg tablet, 1,200 mg PO Q12H #60 tabs 06/14/24 07/12/24 Rx extended release 12 hr PFSH Medical History (Updated 07/12/24 @ 14:[address] Erick Hernández MD) Pneumonia Pneumonia Left ankle injury Bilateral tennis elbow Depression Sepsis LACEY (obstructive sleep apnea) Lung nodule Hoarseness Sleep-related breathing disorder Pneumonia Encephalopathy Acute respiratory failure COPD (chronic obstructive pulmonary disease) GERD (gastroesophageal reflux disease) Bipolar disorder Migraine Tobacco abuse Spinal stenosis Traumatic brain injury Surgical History History of hernia repair Family History Father Dementia Alzheimers disease Diabetes Mother Diabetes Social History Smoking Status: Heavy Smoker (>10/day) Tobacco: How many years used: 30 second hand exposure: Yes alcohol intake: never substance use type: does not use HPI CERVICAL SPINE Details: This documentation accurately reflects the service provided and the decisions made by me, Dr. Erick Hernández MD 07/12/24 3773. Part of today???s visit was documented by Rosemary RAYMUNDO, acting as scribe. ELIUD BLOUNT is a 63 year old M here today for MRI review of the cervical spine. Patient denies any changes. Continues to have right hand weakness. 05/28/24: ELIUD BLOUNT is a 63 year old M here today for cervical spine pain. Patient states there is no neck pain but it is mainly into his arms. He states it is mainly down into his right arm and this has been bothering him for about 3 months. Patient states he was just sitting at a computer and his right arm just started tingling out of nowhere. He states on the right side it is pretty much his whole arm down into his hands and fingers. On the left side it is mainly just his thumb and index finger. 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 He said this bothers him all day long. Patient states he is RHD. Patient denies any injections or surgeries to the cervical spine. Patient states he had surgery on the right elbow years ago and they did something with his ulnar nerve, states possibly tennis elbow surgery. Patient denies any numbness/tingling down into his legs at all. Patient denies any injury or accident that he is aware of that caused the pain to start. Patient states he has gotten headaches a lot but these are ongoing and started happening prior to the neck pain. He takes Gabapentin for headaches and the pain. Patient denies physical therapy for the cervical spine. (more content not included)... Normal [facility] CNOVon 07-08-2024 CNOV Office Visit (UCWSTR ) JOSE ALEJANDROELIUD Basim ([id number]) 1960 M Date Time Provider Department 07/08/24 2:45 PM JACKY FERRERA [facility] During your visit today, we recorded the following information about you: Temperature Pulse Respiration Blood pressure 98.4 degrees 93/minute 20/minute 131/80 Weight 60 kg Jacky Ferrera, TORPEDOMAN'S MATE.OIL PLANT OPERATOR 07/08/2024 4:04 PM Signed Subjective HPI Nontoxic-appearing male presents urgent care chief complaint cough chest congestion sinus pressure. Duration of symptom 1 to 2 months. Associated symptoms listed above. Presents today for evaluation. States history of COPD. Investment Broker recommended using Mucinex. This is not helped. Denies any fevers. Denies any chest pain or hemoptysis. Cough is productive. Does have some increased shortness of breath. Past medical history prescription medications allergies reviewed. .Patient presents with: Cough: Chest congestion, SOB, runny nose, nasal congestion, productive, thick green/brown phlegm, bloody sinueses x 1-2 months 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 CERVICAL DISC DISPLACMNT 01/28/2007 Cervicalgia 07/29/2006 Chronic obstructive pulmonary disease (COPD) ([facility]) DEPRESSIVE DISORDER NEC 07/29/2006 Diabetes ([facility]) Headache(784.0) 07/29/2006 Hypertension Intracranial injury of [...] PFRMD normal EGD TRANSORAL BIOPSY SINGLE/MULTIPLE gastritis ESOPHAGOGASTRODUODENO SCOPY TRANSORAL DIAGNOSTIC 06/24/2017 EGD NEUROPLASTY AND/TRANSPOSITION ULNAR NERVE ELBOW 2000 right PAST SURGICAL HISTORY OF 1991 left ankle surgery-removal of bone chip PAST SURGICAL HISTORY OF bilateral repair of tennis elbow RPR 1ST INGUN HRNA AGE 7 YRS/> REDUCIBLE 1991 Bilateral Hernia repair, inguinal - laparoscopic - Dr. Alanis RPR 1ST INGUN HRNA AGE 5 YRS/> REDUCIBLE 01/28/2008 Left Open repair RPR UMBILICAL HRNA 5 YRS/> REDUCIBLE simple ALLERGIES Day-Nite Severe Cold-Flu [Tmmrawp-Zk-Ly-Acetam inophen-Gg], Dextromethorphan, Doxylamine, Pseudoephedrine, Sertraline, Zoloft [Sertraline Hcl], Baclofen, and Nyquil [Ixldqnjba-Pim-Gi-Deric taminophen] MEDICATIONS fluticasone (FLONASE) 50 mcg/actuation nasal spray Use 2 Sprays in each nostril once daily. MUCUS RELIEF ER 1,200 mg Ta12 Take 1 tablet by mouth every 12 hours. amitriptyline (ELAVIL) 100 mg tablet Take 1 tablet by mouth daily at bedtime. Prescribed by neurology divalproex (DEPAKOTE) 250 mg EC tablet Take 2 tablets by mouth three times a day. Prescribed by neurology gabapentin (NEURONTIN) 600 mg tablet Take 1 tablet by mouth three times a day. Prescribed by neurology ibuprofen (MOTRIN) 200 mg tablet Take 2 tablets by mouth every 6 hours as needed for pain (Take with food.). albuterol (PROVENTIL) 5 mg/mL nebu Inhale 0.5 [...] daily before breakfast. 1/2 hr before meal. fluticasone-umeclidin -vilanter (TRELEGY ELLIPTA) 100-62.5-25 mcg Inhale 1 Puff as instructed once daily. levETIRAcetam (KEPPRA) 500 mg tablet twice daily. albuterol HFA (VENTOLIN HFA) 90 mcg/actuation inhaler [...] No Comment: Rarely Drug use: No BP 131/80 Pulse 93 Temp 36.9 ?C (98.4 ?F) Resp 20 Wt 60 kg (132 lb 4.4 oz) SpO2 98% BMI 20.72 kg/m? Review of Systems Constitutional: (more content not included)... Normal [facility] XR CHEST 2V FRONTAL/LATon XR CHEST 2V FRONTAL/LAT * * *Final Repor t* * * DATE OF EXAM: Jul 08 2024 3:37PM WOX [id number] - XR CHEST 2V FRONTAL/LAT / PROCEDURE REASON: Subacute cough * * * * Physician Interpretation * * * * EXAMINATION: CHEST RADIOGRAPH (2 VIEW FRONTAL and LATERAL) CLINICAL HISTORY: Subacute cough MQ: XC2_6 EXAM DATE/TIME: 07/08/2024 3:37 PM COMPARISON: 10/15/2023 RESULT: Lines, tubes, and devices: None. Lungs and pleura: * Dense opacification RIGHT costophrenic angle similar to the previous study also some milder blunting of the LEFT costophrenic angle. No other focal consolidation. No lung mass. No pneumothorax. Cardiomediastinal silhouette: Normal cardiomediastinal silhouette. Bones and soft tissues: Unremarkable. IMPRESSION: Findings very similar to the previous study. Galley Hand: KEVEN Transcribe Date/Time: Jul 08 2024 3:51P Dictated by : ANTONY HUSTON DO This examination was interpreted and the report reviewed and electronically signed by: ANTONY HUSTON DO on Jul 08 2024 3:52PM EST [id number] Normal [facility] XR Chest PA and Lateralon IMPRESSION: Findings very similar to the previous study. Galley Hand: KEVEN Transcribe Date/Time: Jul 08 2024 3:51P Dictated by : ANTONY HUSTON DO This examination was interpreted and the report reviewed and electronically signed by: ANTONY HUSTON DO on Jul 08 2024 3:52PM EST DIVISION OF RADIOLOGY * * *Final Report* * * DATE OF EXAM: Jul 08 2024 3:37PM WOX [id number] - XR CHEST 2V FRONTAL/LAT / PROCEDURE REASON: Subacute cough * * * * Physician Interpretation * * * * EXAMINATION: CHEST RADIOGRAPH (2 VIEW FRONTAL & LATERAL) CLINICAL HISTORY: Subacute cough MQ: XC2_6 EXAM DATE/TIME: 07/08/2024 3:37 PM COMPARISON: 10/15/2023 RESULT: Lines, tubes, and devices: None. Lungs and pleura: * Dense opacification RIGHT costophrenic angle similar to the previous study also some milder blunting of the LEFT costophrenic angle. No other focal consolidation. No lung mass. No pneumothorax. Cardiomediastinal silhouette: Normal cardiomediastinal silhouette. Bones and soft tissues: Unremarkable. DIVISION OF RADIOLOGY Provider, [facility] - 07/08/2024 * * *Final Report* * * DATE OF EXAM: Jul 08 2024 3:37PM WOX [id number] - XR CHEST 2V FRONTAL/LAT / PROCEDURE REASON: Subacute cough * * * * Physician Interpretation * * * * EXAMINATION: CHEST RADIOGRAPH (2 VIEW FRONTAL & LATERAL) CLINICAL HISTORY: Subacute cough MQ: XC2_6 EXAM DATE/TIME: 07/08/2024 3:37 PM COMPARISON: 10/15/2023 RESULT: Lines, tubes, and devices: None. Lungs and pleura: * Dense opacification RIGHT costophrenic angle similar to the previous study also some milder blunting of the LEFT costophrenic angle. No other focal consolidation. No lung mass. No pneumothorax. Cardiomediastinal silhouette: Normal cardiomediastinal silhouette. Bones and soft tissues: Unremarkable. IMPRESSION IMPRESSION: Findings very similar to the previous study. Galley Hand: KEVEN Transcribe Date/Time: Jul 08 2024 3:51P Dictated by : ANTONY HUSTON DO This examination was interpreted and the report reviewed and electronically signed by: ANTONY HUSTON DO on Jul 08 2024 3:52PM EST [facility] Radiology Study observation (narrative) [facility] XR Chest PA and LateralOrder ed By: [facility] Provider on 07-08-2024 [facility] 6 Minute Walk Teston 025 6 Minute Walk Test y [facility]monary Services/Neurology [address] [place] [address] MR#: [id number] Acct: [id number] Name: ELIUD BLOUNT Rep #: [id number] : 1960 63 From: Rock Dick DO Referring Dr: Tammy Stone DOOR TO DOOR SALES REPRESENTATIVE DOOR TO DOOR SALES REPRESENTATIVE-C Status: REG CLI Location: PSN Date: Sex: M C PSN 6 Minute Walk Test 6 Minute Walk Test 6 Minute Walk Test: 6 Minute Walk Test PSN:6-Minute Walk Test Start: 07/02/24 08:40 Freq: Status: Active Protocol: RESP.6MINW Document 07/02/24 08:40 SFENTON (Rec: 07/02/24 08:49 SFENTON [id number]) 6 Minute Walk Test Date Performed 07/02/24 Time Performed 08:30 Height 5 ft 8 in Weight: 120 lb Weight in Pounds 120.[address]: Tammy Stone DOOR TO DOOR SALES REPRESENTATIVE Assistive device used: None Pre-test Oxygen Delivery Method Room Air Pulse Ox (%) 96 Pulse Rate (60-100 beats/min) 88 Dyspnea Meron Scale (0-10) 1 Exertion Meron Scale (6-20) 6 1st minute Oxygen Delivery Method Room Air Pulse Ox (%) 93 Pulse Rate (60-100 beats/min) 101 H 2nd minute Oxygen Delivery Method Room Air Pulse Ox (%) 90 Pulse Rate (60-100 beats/min) 123 H 3rd minute Oxygen Delivery Method Room Air Pulse Ox (%) 88 Pulse Rate (60-100 beats/min) 145 H Dyspnea Meron Scale (0-10) 4 4th minute Oxygen Flow Rate (L/min) (L/min) 2 Oxygen Delivery Method Nasal Cannula Pulse Ox (%) 95 Pulse Rate (60-100 beats/min) 98 5th minute Oxygen Flow Rate (L/min) (L/min) 2 Oxygen Delivery Method Nasal Cannula Pulse Ox (%) 93 Pulse Rate (60-100 beats/min) 106 H 6th minute Oxygen Flow Rate (L/min) (L/min) 2 Oxygen Delivery Method Nasal Cannula Pulse Ox (%) 92 Pulse Rate (60-100 beats/min) 99 Dyspnea Meron Scale (0-10) 4 Exertion Meron Scale (6-20) 13 Post-test Oxygen Flow Rate (L/min) (L/min) 2 Oxygen Delivery Method Nasal Cannula Pulse Ox (%) 98 Pulse Rate (60-100 beats/min) 89 Full Laps Walked 20 Partial Lap, Number of Tiles Walked 0 Total Distance Walked (ft) 1180 07/02/24 08:42 Cardiopulmonary Services by Christie Casas Patient does not have oxygen at home, states he has a CPAP since April but has not been able to wear it consistently due to having a head and chest cold that he has not been able to get rid of. Patient stated he had a round of antibiotics about 3 weeks ago but has not felt any better. He walked 590 ft in the first 3 minutes with an SpO2 of 88% at the 3rd minute and a heart rate of 145. Stopped patient at this time to rest and placed on 2 lpm O2, SpO2 recovered to 98%, HR 95. Patient walked an additional 590 ft in the last 3 minutes of testing maintaining an SpO2 of 92%. Patient is very active and requested a portable and more convenient means for O2 on ambulation. Initialized on 07/02/24 08:42 - END OF NOTE Interpretation Interpretation: The patient ambulated 1180 feet over the course of 6 minutes beginning on room air without assistive devices. Pretesting oxygen saturation was noted to be 96% on room air. With ambulation, the niko oxygen saturation was 88%, requiring 2 L/min of supplemental oxygen to complete the remainder of the test. Recommendations Recommendations: 2 L/min of supplemental oxygen should be utilized with exertion. 07/05/24 1028 Date Rock Dick DO CC: Date Dictated: 07/05/248 Date Transcribed: 07/05/241027 Galley Hand: Dr. Rock Dick DO Signed Normal [facility] Spine Cervical (Routine)on 0 07-05-2024 Spine Cervical (Routine) [facility] Imaging Services [address] [place], [place] [id number] Spine Cervical (Routine) MR#: [id number] Acct: [id number] Name: ELIUD BLOUNT Rep #: [id number] : 1960 M 63 From: Jacky Real MD PCP: Dr. Charan Arndt MD Status: REG CLI Study: Spine Cervical (Routine) Date of Exam: Exam# [id number] Ordering Dr: Erick Hernández MD [id number] STUDY: MRI CERVICAL SPINE WITHOUT CONTRAST REASON FOR EXAM: Male, 63 years old. pain TECHNIQUE: Standardized fat and water weighted pulse sequences were obtained in the sagittal and axial planes. COMPARISON: None FINDINGS: Normal foramen magnum and brainstem-cervical cord junction. Normal craniovertebral junction. Normal anterior atlantoaxial articulation. Normal odontoid process. Normal cervical lordosis. Normal vertebral bodies and posterior osseous elements. C2-3: Normal endplates. Normal disc height, signal and morphology. Normal central canal and intervertebral neural foramina. C3-4: Normal endplates. Normal disc height, signal and tiny central disc protrusion. Mild narrowing of the central canal. Normal intervertebral neural foramina. C4-5: Narrowed disc space and endplate spurring.. Normal central canal. Moderate left neural foraminal stenosis and more severe narrowing on the right secondary to bony hypertrophy C5-6: Normal endplates. Narrowed disc space and endplate spurring.. Normal central canal. Moderate left neural foraminal stenosis and more severe narrowing on the right secondary to bony hypertrophy C6-7: Normal endplates. Normal disc height, signal and minimal bulging disc osteophyte complex with tiny right foraminal disc/osteophyte protrusion. Normal central canal. Minor left neural foraminal stenosis and moderate to severe narrowing on the right secondary to disc and bony hypertrophy C7-T1: Normal endplates. Normal disc height, signal and minimal bulging of the disc with tiny right posterolateral. Normal central canal and intervertebral neural foramina. Normal cervical cord. Normal visualized soft tissue structures. MRI/Spine Cervical (Routine) IMPRESSION: No evidence for acute fracture or other significant bony pathology. Spondylosis and multilevel spinal stenosis secondary to disc disease and bony hypertrophy more severe on the right. Findings as above Electronically Signed: Jacky Real MD at 21:59 EST Reading Location ID and State: [address] [place], [place] [address] Tel , Service support , CC: Dr. Erick Hernández MD; Dr. Charna Arndt MD Galley Hand: Signed Normal [facility] Low Dose CT Lung Screeningon 07-02-[address] Lung Screening [facility] Imaging Services [address] [place] [id number] Lung Screening MR#: [id number] Acct: [id number] Name: ELIUD BLOUNT Rep #: [id number] : 1960 M 63 From: Bijan lopez MD PCP: Dr. Charan Arndt MD Status: REG [facility] Study: Low Dose CT Lung Screening Date of Exam: 07/02 Exam# [id number] Ordering Dr: Tammy Stone DOOR TO DOOR SALES REPRESENTATIVE DOOR TO DOOR SALES REPRESENTATIVE-C [id number] STUDY: LOW DOSE CT LUNG CANCER SCREENING REASON FOR EXAM: Male, 63 years old. Patient smokes half pack per day for 43 years. COPD. Shortness of breath. RADIATION DOSAGE (If Supplied By Facility): CTDIvol = ( 2.01 ) mGy, DLP = ( 75.25 ) mGycm TECHNIQUE: No contrast was administered. Low dose technique was utilized (average mAS-38 and kVp 120). 1.25 mm axial source images with a slice interval of 1.25-mm were reconstructed in lung windows. 2.5 mm axial source images with a slice interval of 2.5-mm were reconstructed in lung windows. 5.0 mm axial source images with a slice interval of 5.0-mm were reconstructed in soft tissue windows. COMPARISON: Comparison is made with prior study January 11, 2023. NODULES: No suspicious nodules are seen. Emphysema: Hyperinflation. Diffuse emphysematous changes with bullous formation worse in the upper lobes. Scarring in the upper lobes. This also evidence of scarring in the right middle lobe and right lower lobe. Endobronchial lesion: None Aorta: Atherosclerotic reformation of the aortic arch. CORONARY ARTERIES: Coronary artery calcification is seen. Heart: Unremarkable Pulmonary artery: Unremarkable Mediastinal nodes: Unremarkable Other chest and abdominal findings: CT/Low Dose CT Lung Screening IMPRESSION: Lung-RADS category 2 - Continue annual screening with LDCT in 12 months. IMPORTANT NOTES FOR USE: ACR Lung-RADS Version 1.1 Assessment Categories Release Date: 2018 Category: Coded 0-4 bases on nodule(s) with highest degree of suspicion. Negative screen is defined as categories 1 and 2; a positive screen is defined as categories 3 and 4. Category 3 and 4A nodules that are unchanged on interval CT should be coded as category 2, and individuals returned to screening in 12 months. Category 4X: Category 3 or 4 nodules with additional imaging findings that increase the suspicion of lung cancer, such as spiculation, GGN that doubles in size in 1 year, enlarged lymph notes, etc. Category Modifiers: S (significant finding unrelated to lung cancer) Electronically Signed: Bijan Oliveira MD at 15:00 EST , CC: SANDRA Stone; Dr. Charan Arndt MD Galley Hand: Signed Normal [facility] Pulmonary Visit Reporton Pulmonary Visit Report [facility] [address] [place] [address] OFFICE VISIT Date of Service: 06/14/24 MR#: [id number] Acct: [id number] Name: ELIUD BLOUNT Rep #: [id number] : 1960 Provider: SANDRA Stone Age/Sex: 63/M Location: [facility] Status: Signed Assessment and Plan Assessment and Plan (1) Stage 4 very severe COPD by GOLD classification: Status: Chronic Comment: FEV1 32% of predicted Plan: Deteriorated. I do not believe he is in an exacerbation of COPD today. I suspect disease progression due to ongoing smoking. No need for prednisone or antibiotic. Continue current maintenance medication, he is already on triple therapy on Trelegy. Repeat PFT and walk test to evaluate for disease progression. Contact the office for any new or worsening symptoms. An acute visit and typically be arranged within 1-2 days. Follow-up in 6 weeks to discuss test results. (2) Chronic respiratory failure: Status: Chronic Qualifiers: Respiratory failure complication: hypoxia Qualified Code(s): J96.11 - Chronic respiratory failure with hypoxia Plan: Last walk test showed that he did not qualify or require supplemental oxygen. Given his complaints of severe shortness of breath I am going to re-evlauate for exertional hypoxia. He is agreeable to wearing supplemental oxygen if indicated. (3) Nicotine dependence, cigarettes, uncomplicated: Status: Chronic Plan: He remains appropriate for LDCT, which was due in December. He is not sure why it was not completed. Ordered previously. Order canceled and reordered to prevent any confusion or insurance denial due to order duplication. Follow up in 6 weeks to discuss test results. (4) LACEY (obstructive sleep apnea): Status: Chronic Comment: CPAP 11 cm of water Plan: Deteriorated. He continues poor compliance. We discussed the risk factors of untreated sleep apnea, I explained that his shortness of breath could be somewhat related to this. He conveys understanding. He reports that some of the reason he has not been using it is because he has nasal congestion and post nasal drip. I am going to start him on fluticasone nightly in hopes to alleviate these symptoms allowing him better compliance. Follow up in 6 weeks to evaluate his compliance report and symptoms. Orders: Orders PFT Complete - DLCO, Spirometry b/a bronchodilators, lung volumes 06/22/24 J44.9 - Chronic obstructive pulmonary disease, unspecified Simple Pulmonary Exercise Test 07/02/24 J44.9 - Chronic obstructive pulmonary disease, unspecified Low Dose CT Lung Screening Today F17.200 - Nicotine dependence, unspecified, uncomplicated, F17.210 - Nicotine dependence, cigarettes, uncomplicated Medications: New fluticasone propionate 50 mcg/actuation 2 sprays intranasal DAILY 16 grams 3RF J45.909 - Unspecified asthma, uncomplicated guaifenesin ER 1,200 mg PO Q12H 60 tabs 6RF [Disability Placard] expires 06/14/2029 1 ea 0RF chronic respiratory distress J96.10 Plan Details Follow Up: 6 Weeks HPI 3 M FU Chief Complaint: shortness of breath HPI Comments Details: This patient presents to the office today to discuss test results. He is ambulatory and currently on room air. He is accompanied by his today. He was not recently seen in the ED for respiratory illness, but he was seen in the urgent care. He believes it was about 3 weeks ago and he was treated with a prednisone burst and 2 antibiotics. He is compliant with use of Trelegy 1 puff daily. He does report rinsing his mouth out after each use. He denies any medication side effect such as sore throat or thrush. He is currently utilizing albuterol 6-8 times daily. He is using albuterol in the nebulizer most mornings. The patient does report shortness of breath that is worse with exertion. He has a cough that is productive of thick sputum that is white but can be green. It was green this morning. He denies any hemoptysis. He has occasional wheezing,but he denies any chest tightness, chest pain or palpitations. He also denies any fever, chills or body aches. He also reports post nasal drip and nasal congestion. He continues to smoke cigarettes. He is currently smoking 1/2 pack/day. He admits he still is not using his pap device much. He reports that the nasal congestion and post nasal drip makes it difficult to tolerate. He notices that when he is able to use the device he feels more rested. Compliance report for the past 30 days shows 13% compliance with an average use of 21 minutes per night. Current setting is BiPAP 8/4 cm of water with a residual AHI of 21.4 events per hour. Leaks do not appear to be problematic. Intake Vital Signs 05/28/24 07:34 06/14/24 07:57 Height 5 ft 8 in 5 ft 8 in Weight: 121 lb 8 oz BMI 18.4 BP 114/74 Blood Press (more content not included)... [facility] 06-11-2024 [facility] Telephone (INTMWS) ELIUD BLOUNT ([id number]) 1960 M Date Time Provider Department 06/11/24 CHARAN ARNDT INTWS During your visit today, we recorded the following information about you: Elise Proctor RN 06/11/2024 5:26 PM Signed Idris from [facility] calling and states they are now pt's pharmacy and he is requesting refills from [facility] for pt's Prednisone and Doxycycline. Explained to Idris that [facility] does not order senior living prescriptions and is not pt's PCP. Also explained that Prednisone and Doxycycline are not terminal computer operator meds. Pt would not be receiving these meds from his mail order pharmacy. Also noted that pt does not have [facility] down as his pharmacy. Called and spoke with pt about all of the above. Pt states that yes he is going to start using [facility] and keep [facility] as his local pharmacy. In talking with pt, he states he is still having some URI symptoms and sinus issues. Was last seen in [facility] on 05/19/24 and was prescribed Prednisone, Doxycycline and Augmentin. Pt has a history of COPD and does have an appt with his lung doctor on Friday afternoon. He will follow up with them and call us back if needed. Pharmacies and phone numbers updated. Allergies As of Date: 06/11/2024 Noted Allergy Reaction Day-nite Severe Cold-flu (DOXYLAM*01/07/2017 [...] it and was in the icu NYQUIL (PWTCVEUNQ-FZG-VR-DERIC TAMIN*07/08/2007 5 - Intolerance Date Reviewed: 05/19/2024 Reviewed by: Geetha Foster LPN - Fully Assessed Reason for Visit: Patient Update [1234] Appointment [186] Pharmacy change [Other] Prescriptions as of 06/11/2024 - amitriptyline (ELAVIL) 100 mg tablet Take [...] before breakfast. 1/2 hr before meal. - fluticasone-umeclidin -vilanter (TRELEGY ELLIPTA) 100-62.5-25 mcg Inhale 1 Puff as instructed once daily. - levETIRAcetam (KEPPRA) 500 mg tablet twice daily. - albuterol HFA (VENTOLIN HFA) 90 mcg/actuation inhaler Inhale 2 Puffs as instructed every 4 hours as needed for Wheezing/Shortness of Breath. - multivitamin tablet Take 1 tablet by mouth once daily. Problem List As Of Date 06/11/2024 Noted Resolved Headache [R51] 07/29/2006 CERVICALGIA [M54.2] 07/29/2006 Lateral epicondylitis of elbow [M77.10] 07/29/2006 08/07/2010 DEPRESSIVE DISORDER NEC [F32.89] 07/29/2006 Anxiety state [F41.1] 07/29/2006 PERS HX TOBACCO USE [Z87.891] 07/29/2006 ROTATOR CUFF SYND NOS [M71.9, M67.919] 01/01/2007 05/20/2007 CERVICAL DISC DISPLACMNT [M50.20] 01/28/2007 VITAMIN D DEFICIENCY NOS [E55.9] 04/30/2007 Rotator cuff dis NEC [QCR7176] 05/20/2007 08/07/2010 Brachial neuritis or radiculitis NOS [M54.12] 05/20/2007 08/07/2010 Pain in soft tissues of limb [M79.609] 08/05/2007 08/07/2010 Unilat ing hernia [K40.90] 12/27/2007 08/07/2010 Recur unilat ing chantel [K40.91] 01/11/2008 08/07/2010 Follow-up examination, following unspecified crane*01/20/2008 08/07/2010 ALCOH DEP NEC/NOS-UNSPEC [F10.20] 02/16/2008 Umbilical hernia without mention of obstruction* 9 08/07/2010 Gastritis/duodenitis [K29.70, K29.90] 02/07/2009 08/07/2010 Blood [...] Moderate single current episode of major depres*10/13/2015 Toba (more content not included)... Normal [facility] Orthopedic Visit Reporton Orthopedic Visit Report [facility] [address] [place] [address] [address] [place] [address] OFFICE VISIT Date of Service: 05/27/24 MR#: [id number] Acct: [id number] Name: ELIUD BLOUNT Rep #: [id number] : 1960 Provider: Dr. Erick Hernández MD Age/Sex: 63/M [facility] [facility] Status: Signed Intake Vital Signs 03/29/24 11:15 05/27/24 13:36 Height 5 ft 8 in 5 ft 8 in Weight: 122 lb BMI 18.5 Intake Visit Reasons: CERVICAL SPINE Chief Complaint: Cervical Spine Pain Accompanied by: Self Is patient in pain?: Yes Pain scale (1-10): 3 Allergies dextromethorphan HBr (From NyQuil) Adverse Reaction (Intermediate, Verified 05/27/24 13:36) tachycardia, feels anxious doxylamine (From NyQuil) Adverse Reaction (Intermediate, Verified 05/27/24 13:36) Tachycardia, feels anxious pseudoephedrine HCl (From NyQuil) Adverse Reaction (Intermediate, Verified 05/27/24 13:36) Tachycardia, feels anxious sertraline HCl (From Zoloft) Adverse Reaction (Verified 05/27/24 13:36) Diarrhea Medications ???Medication ???Instructions ???Recorded ???Confirmed ???Type amitriptyline 100 mg tablet 100 mg PO QHS sleep 06/30/19 05/27/24 History levetiracetam 500 mg tablet 500 mg PO DAILY Check with primary 04/28/20 05/27/24 History doctor divalproex 250 mg tablet,delayed 750 mg PO BID 03/28/24 05/27/24 History release ibuprofen 200 mg tablet (Addaprin) 400 mg PO Q8H PRN pain 03/28/24 05/27/24 History albuterol sulfate 2.5 mg/3 mL 2.5 mg (3 mL) inhalation Q4H PRN 04/15/24 05/27/24 Rx (0.083 %) solution for nebulization #120 vials albuterol sulfate 90 mcg/actuation 2 puff inhalation Q4H PRN 04/15/24 05/27/24 Rx aerosol inhaler shortness of breath or wheezing #8.5 grams fluticasone fur. 200 mcg-umeclid 1 inh inhalation DAILY #60 ea 04/15/24 05/27/24 Rx 62.5 mcg-vilant 25 mcg inhalat.powder (Trelegy Ellipta) gabapentin 600 mg tablet 800 mg PO TID 05/27/24 05/27/24 History PFSH Medical History (Updated 05/28/24 @ 09:[address] Erick Hernández MD) Pneumonia Pneumonia Left ankle injury Bilateral tennis elbow Depression Sepsis LACEY (obstructive sleep apnea) Lung nodule Hoarseness Sleep-related breathing disorder Pneumonia Encephalopathy Acute respiratory failure COPD (chronic obstructive pulmonary disease) GERD (gastroesophageal reflux disease) Bipolar disorder Migraine Tobacco abuse Spinal stenosis Traumatic brain injury Surgical History History of hernia repair Family History Father Dementia Alzheimers disease Diabetes Mother Diabetes Social History Smoking Status: Heavy Smoker (>10/day) Tobacco: How many years used: 30 second hand exposure: Yes alcohol intake: never substance use type: does not use HPI CERVICAL SPINE Details: This documentation accurately reflects the service provided and the decisions made by me, Dr. Erick Hernández MD 05/27/24 0394. Part of today???s visit was documented by Bekah Stallworth ATC, acting as scribe. ELIUD BLOUNT is a 63 year old M here today for cervical spine pain. Patient states there is no neck pain but it is mainly into his arms. He states it is mainly down into his right arm and this has been bothering him for about 3 months. Patient states he was just sitting at a computer and his right arm just started tingling out of nowhere. He states on the right side it is pretty much his whole arm down into his hands and fingers. On the left side it is mainly just his thumb and index finger. 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 He said this bothers him all day long. Patient states he is RHD. Patient denies any injections or surgeries to the cervical spine. Patient states he had surgery on the right elbow years ago and they did something with his ulnar nerve, states possibly tennis elbow surgery. Patient denies any numbness/tingling down into his legs at all. Patient denies any injury or accident that he is aware of that caused the pain to start. Patient states he has gotten headaches a lot but these are ongoing and started happening prior to the neck pain. He takes Gabapentin for headaches and the pain. Patient denies physical therapy for the cervical spine. Ortho Exam General General: Yes no acute distress Neurologic: Yes alert and Yes oriented x3 Spine SPINE TESTING CERVICAL THORACIC LUMBAR Musculoskeletal Strength 0=absent - 5=normal Details: Examination of the neck shows no tenderness. Neurologic management upper extremity shows grade 4 - finger forestry biology specialist, grade 3 wrist extension, grade 4 biceps triceps and abduction on the right upper e xtremity, grade 4+ strength throughout left upper (more content not included)... [facility] Office Visit (UCWSTR ) ELIUD BLOUNT ([id number]) 1960 M Date Time Provider Department 05/19/24 5:30 PM JOSEFINA [facility] During your visit today, we recorded the following information about you: Temperature Pulse Respiration Blood pressure 97.8 degrees 96/minute 18/minute 142/80 Weight 57 kg Josefina Parsons APRN.OIL PLANT OPERATOR 05/19/2024 5:19 PM Signed Subjective Cough Associated symptoms include sore throat, shortness of breath and wheezing. Pertinent negatives include no chest pain, no chills, no ear pain and no myalgias. Eliud Blount is a 63 year old male who presents with 2 weeks of cough, sinus pressure, drainage and congestion. Has history of COPD and states cough is productive of sputum which is thicker and more quantity than typical for him. He has not had a fever. He feels short of breath all the time. He has been using his inhaler and nebulizer at home. Review of Systems Constitutional: Negative for chills, fever and malaise/fatigue. HENT: Positive for congestion, sinus pain and sore throat. Negative for ear pain. Respiratory: Positive for cough, sputum production, shortness of breath and wheezing. Cardiovascular: Negative for chest pain. Gastrointestinal: Negative for diarrhea, nausea and vomiting. Musculoskeletal: Negative for myalgias. BP 142/80 Pulse 96 Temp 36.6 ?C (97.8 ?F) (Tympanic) Resp 18 Wt 57 kg (125 lb 10.6 oz) SpO2 96% BMI 19.68 kg/m? 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 CERVICAL DISC DISPLACMNT 01/28/2007 Cervicalgia 07/29/2006 Chronic obstructive pulmonary disease (COPD) ([facility]) DEPRESSIVE DISORDER NEC 07/29/2006 Diabetes ([facility]) Headache(784.0) 07/29/2006 Hypertension Intracranial injury of [...] PFRMD normal EGD TRANSORAL BIOPSY SINGLE/MULTIPLE gastritis ESOPHAGOGASTRODUODENO SCOPY TRANSORAL DIAGNOSTIC 06/24/2017 EGD NEUROPLASTY AND/TRANSPOSITION ULNAR NERVE ELBOW 2000 right PAST SURGICAL HISTORY OF 1991 left ankle surgery-removal of bone chip PAST SURGICAL HISTORY OF bilateral repair of tennis elbow RPR 1ST INGUN HRNA AGE 7 YRS/> REDUCIBLE 1991 Bilateral Hernia repair, inguinal - laparoscopic - Dr. Alanis RPR 1ST INGUN HRNA AGE 5 YRS/> REDUCIBLE 01/28/2008 Left Open repair RPR UMBILICAL HRNA 5 YRS/> REDUCIBLE simple ALLERGIES Day-Nite Severe Cold-Flu [Oguxbkm-Id-Cv-Acetam inophen-Gg], Dextromethorphan, Doxylamine, Pseudoephedrine, Sertraline, Zoloft [Sertraline Hcl], Baclofen, and Nyquil [Bfrsqorfc-Eza-Rf-Deric taminophen] MEDICATIONS amitriptyline (ELAVIL) 100 mg tablet Take 1 tablet by mouth daily at bedtime. Prescribed by neurology divalproex DR (DEPAKOTE) 250 mg EC tablet Take 2 tablets by mouth three times a day. Prescribed by neurology gabapentin (NEURONTIN) 600 mg tablet Take 1 tablet by mouth three times a day. Prescribed by neurology ibuprofen (MOTRIN) 200 mg tablet Take 2 tablets by mouth every 6 hours as needed for pain (Take with food.). albuterol (PROVENTIL) 5 mg/mL nebu Inhale 0.5 [...] daily before breakfast. 1/2 hr before meal. fluticasone-umeclidin -vilanter (TRELEGY ELLIPTA) 100-62.5-25 mcg Inhale 1 Puff as instructed once daily. levETIRAcetam (KEPPRA) 500 mg tablet twice daily. albuterol HFA (VENTOLIN HFA) 90 mcg/actuation inhaler Inhale 2 Puffs as instructed every 4 hours as needed for Wheezing/Shortness of Breath. multivitamin tablet Take 1 tablet by mouth once daily. predniSONE (DELTASONE) 10 mg tablet Take 6 tabs for 3 days, then 4 tabs for 3 days, then 2 tabs for 3 days then 1 tab for 3 days with food. doxycycline monohydrate 100 mg tablet Take 1 tablet by mouth two times a day for 5 days. amoxicillin-clavulana te potassium (AUGMENTIN) 875-125 mg per tablet Take 1 tablet by mouth two times a day for 5 days. (more content not included)... Normal [facility] CBC W/Diff, Automatedon 10- Absolute Lymph 3.24 X10 3/uL Normal 0.83-4.51 [facility] Comment on above: Performed By: #### L 300.3900, L100.0100, L500.4050, L500.4100 ####[facility] [address] [place], [address] Absolute Neut 3.4 X10 3/uL Normal 2.0-7.7 [facility] Comment on above: Performed By: #### L 300.3900, L100.0100, L500.4050, L500.4100 ####[facility] [address] [place], [address] Basophils/100 WBC (Bld) 0.7 % Normal 0-1 [facility] Comment on above: Performed By: #### L 300.3900, L100.0100, L500.4050, L500.4100 ####[facility] [address] [place], [address] Eosinophils/100 WBC (Bld) 2.1 % Normal 0-5 [facility] Comment on above: Performed By: #### L 300.3900, L100.0100, L500.4050, L500.4100 ####[facility] [address] [place], [address] Erythrocyte distribution width (RBC) [Ratio] 13.6 % Normal 11.6-14.6 [facility] Comment on above: Performed By: #### L 300.3900, L100.0100, L500.4050, L500.4100 ####[facility] [address] [place], [address] Hematocrit (Bld) [Volume fraction] 43.6 % Normal 40-54 [facility] Comment on above: Performed By: #### L 300.3900, L100.0100, L500.4050, L500.4100 ####[facility] [address] [place], [address] Hemoglobin (Bld) [Mass/Vol] 14.2 g/dL Normal 13.0-16.5 [facility] Comment on above: Performed By: #### L 300.3900, L100.0100, L500.4050, L500.4100 ####[facility] [address] [place], [address] IG% 0.300 Normal 0.0-0.9 [facility] Comment on above: Result Comment: IG% - Immature Granulocytes (promyelocytes, myelocytes and metamyelocytes) > 1% indicates that a LEFT SHIFT is Present. Performed By: #### L 300.3900, L100.0100, L500.4050, L500.4100 ####[facility] [address] [place], [address] Lymphocytes/100 WBC (Bld) 44.4 % High 19-41 [facility] Comment on above: Performed By: #### L 300.3900, L100.0100, L500.4050, L500.4100 ####[facility] [address] [place], [address] MCH (RBC) [Entitic mass] 30.3 pg Normal 27.0-32.0 [facility] Comment on above: Performed By: #### L 300.3900, L100.0100, L500.4050, L500.4100 ####[facility] [address] [place], [address] MCHC (RBC) [Mass/Vol] 32.6 g/dL Normal 32-36 [facility] Comment on above: Performed By: #### L 300.3900, L100.0100, L500.4050, L500.4100 ####[facility] [address] [place], [address] MCV (RBC) [Entitic vol] 93.0 fL Normal 80-94 [facility] Comment on above: Performed By: #### L 300.3900, L100.0100, L500.4050, L500.4100 ####[facility] [address] [place], [address] Monocytes/100 WBC (Bld) 5.8 % Normal 0-10 [facility] Comment on above: Performed By: #### L 300.3900, L100.0100, L500.4050, L500.4100 ####[facility] [address] [place], [address] Neutrophils/100 WBC (Bld) 46.7 % Low 47-70 [facility] Comment on above: Performed By: #### L 300.3900, L100.0100, L500.4050, L500.4100 ####[facility] [address] [place], [address] Nucleated RBC (Bld) [#/Vol] 0 10*3/uL Normal 0-5 [facility] Comment on above: Performed By: #### L 300.3900, L100.0100, L500.4050, L500.4100 ####[facility] [address] [place], [address] Platelet mean volume (Bld) [Entitic vol] 8.8 fL Normal 6.2-12.0 [facility] Comment on above: Performed By: #### L 300.3900, L100.0100, L500.4050, L500.4100 ####[facility] [address] [place], [address] Platelets (Bld) [#/Vol] 354 10*3/uL Normal 150-450 [facility] Comment on above: Performed By: #### L 300.3900, L100.0100, L500.4050, L500.4100 ####[facility] [address] [place], [address] RBC (Bld) [#/Vol] 4.69 10*6/uL Normal 4.6-6.2 [facility] Comment on above: Performed By: #### L 300.3900, L100.0100, L500.4050, L500.4100 ####[facility] [address] [place], [address] RDW SD 45.6 fl High 35.1-43.9 [facility] Comment on above: Performed By: #### L 300.3900, L100.0100, L500.4050, L500.4100 ####[facility] [address] [place], [address] WBC (Bld) [#/Vol] 7.3 10*3/uL Normal 4.4-11.0 [facility] Comment on above: Performed By: #### L 300.3900, L100.0100, L500.4050, L500.4100 ####[facility] [address] [place], [address] Comprehensive Metabolic Prof ilon 03-29-2024 Albumin [Mass/Vol] 2.8 g/dL Low 3.2-5.0 [facility] Comment on above: Order Comment: Comme nts: NPO at [place] prior to lipid panel Performed By: #### L 300.3900, L100.0100, L500.4050, L500.4100 ####[facility] [address] [place], [address] Albumin/Globulin [Mass ratio] 0.9 {ratio} Normal 0.9-2.4 [facility] Comment on above: Order Comment: Comme nts: NPO at [place] prior to lipid panel Performed By: #### L 300.3900, L100.0100, L500.4050, L500.4100 ####[facility] [address] [place], [address] ALK P 81 U/L Normal 45-117 [facility] Comment on above: Order Comment: Comme nts: NPO at [place] prior to lipid panel Performed By: #### L 300.3900, L100.0100, L500.4050, L500.4100 ####[facility] [address] [place], [address] ALT [Catalytic activity/Vol] 13 U/L Low 16-61 [facility] Comment on above: Order Comment: Comme nts: NPO at [place] prior to lipid panel Performed By: #### L 300.3900, L100.0100, L500.4050, L500.4100 ####[facility] [address] [place], [address] AST [Catalytic activity/Vol] 9 U/L Low 15-37 [facility] Comment on above: Order Comment: Comme nts: NPO at [place] prior to lipid panel Performed By: #### L 300.3900, L100.0100, L500.4050, L500.4100 ####[facility] [address] [place], [address] Bilirubin [Mass/Vol] 0.40 mg/dL Normal 0.20-1.00 [facility] Comment on above: Order Comment: Comme nts: NPO at [place] prior to lipid panel Result Comment: For patients on eltrombopag therapy, use of Dimension Leander TBIL is not recommended. Performed By: #### L 300.3900, L100.0100, L500.4050, L500.4100 ####[facility] [address] [place], [address] BUN/CRE 24.6 RATIO High 10-20 [facility] Comment on above: Order Comment: Comme nts: NPO at [place] prior to lipid panel Performed By: #### L 300.3900, L100.0100, L500.4050, L500.4100 ####[facility] [address] [place], [address] CA,Total 8.9 mg/dL Normal 8.5-10.1 [facility] Comment on above: Order Comment: Comme nts: NPO at [place] prior to lipid panel Performed By: #### L 300.3900, L100.0100, L500.4050, L500.4100 ####[facility] [address] [place], [address] Chloride [Moles/Vol] 101 mmol/L Normal 98-107 [facility] Comment on above: Order Comment: Comme nts: NPO at [place] prior to lipid panel Performed By: #### L 300.3900, L100.0100, L500.4050, L500.4100 ####[facility] [address] [place], [address] CO2 [Moles/Vol] 30.0 mmol/L Normal 21.0-32.0 [facility] Comment on above: Order Comment: Comme nts: NPO at [place] prior to lipid panel Performed By: #### L 300.3900, L100.0100, L500.4050, L500.4100 ####[facility] [address] [place], [address] Creatinine [Mass/Vol] 0.49 mg/dL Low 0.70-1.30 [facility] Comment on above: Order Comment: Comme nts: NPO at [place] prior to lipid panel Result Comment: The validity of the calculated GFR GFRAA in patients over 70 years has not been determined. Clinical correlation is essential. Performed By: #### L 300.3900, L100.0100, L500.4050, L500.4100 ####[facility] [address] [place], [address] ECRCL 124.05 ml/min Normal [facility] Comment on above: Order Comment: Comme nts: NPO at [place] prior to lipid panel Performed By: #### L 300.3900, L100.0100, L500.4050, L500.4100 ####[facility] [address] [facility] [address] EST GFR - AA 223 mL/min Normal >60 [facility] Comment on above: Order Comment: Comme nts: NPO at [place] prior to lipid panel Result Comment: Afri can Bhutanese GFR Calc Performed By: #### L 300.3900, L100.0100, L500.4050, L500.4100 ####[facility] [address] [place], [address] GAP 5 Normal 5-15 [facility] Comment on above: Order Comment: Comme nts: NPO at [place] prior to lipid panel Performed By: #### L 300.3900, L100.0100, L500.4050, L500.4100 ####[facility] [address] [facility] [address] GFR/1.73 sq M.predicted among non-blacks MDRD (S/P/Bld) [Vol rate/Area] 185 mL/min/{1.73_m2} Normal >60 [facility] Comment on above: Order Comment: Comme nts: NPO at [place] prior to lipid panel Result Comment: Non- GFR Calc Performed By: #### L 300.3900, L100.0100, L500.4050, L500.4100 ####[facility] [address] [place], [address] Globulin (S) [Mass/Vol] 3.0 g/dL Normal 2.2-4.2 [facility] Comment on above: Order Comment: Comme nts: NPO at [place] prior to lipid panel Performed By: #### L 300.3900, L100.0100, L500.4050, L500.4100 ####[facility] [address] [place], [address] Glucose [Mass/Vol] 80 mg/dL Normal 74-106 [facility] Comment on above: Order Comment: Comme nts: NPO at [place] prior to lipid panel Performed By: #### L 300.3900, L100.0100, L500.4050, L500.4100 ####[facility] [address] [place], [address] Potassium [Moles/Vol] 4.0 mmol/L Normal 3.5-5.1 [facility] Comment on above: Order Comment: Comme nts: NPO at [place] prior to lipid panel Performed By: #### L 300.3900, L100.0100, L500.4050, L500.4100 ####[facility] [address] [place], [address] Sodium [Moles/Vol] 136 mmol/L Normal 136-145 [facility] Comment on above: Order Comment: Comme nts: NPO at [place] prior to lipid panel Performed By: #### L 300.3900, L100.0100, L500.4050, L500.4100 ####[facility] [address] [place], [address] T PROT 5.8 g/dL Low 6.4-8.2 [facility] Comment on above: Order Comment: Comme nts: NPO at [place] prior to lipid panel Performed By: #### L 300.3900, L100.0100, L500.4050, L500.4100 ####[facility] [address] [place], [address] Urea nitrogen [Mass/Vol] 12 mg/dL Normal 7-18 [facility] Comment on above: Order Comment: Comme nts: NPO at [place] prior to lipid panel Performed By: #### L 300.3900, L100.0100, L500.4050, L500.4100 ####[facility] [address] [place], [address] Lipid Profileon 03-29-2024 Cholesterol [Mass/Vol] 125 mg/dL Normal 200 [facility] Comment on above: Order Comment: Comme nts: NPO at [place] prior to lipid panel Result Comment: <200 mg/dL Desirable 200-240 mg/dL Borderline >240 mg/dL High Risk Performed By: #### L 300.3900, L100.0100, L500.4050, L500.4100 ####[facility] [address] [place], [address] Cholesterol in HDL [Mass/Vol] 47 mg/dL Normal [facility] Comment on above: Order Comment: Comme nts: NPO at [place] prior to lipid panel Result Comment: The drugs N-Acetylcysteine and Metamizole may falsely depress this assay. Reference Range HDL <40 mg/dL Low HDL Cholesterol HDL >or= 60 mg/dL High HDL Cholesterol Performed By: #### L 300.3900, L100.0100, L500.4050, L500.4100 ####[facility] [address] [place], [address] Cholesterol in LDL [Mass/Vol] 62 mg/dL Normal 0-130 [facility] Comment on above: Order Comment: Comme nts: NPO at [place] prior to lipid panel Performed By: #### L 300.3900, L100.0100, L500.4050, L500.4100 ####[facility] [address] [place], [address] Cholesterol in VLDL [Mass/Vol] 16 mg/dL Normal 5-40 [facility] Comment on above: Order Comment: Comme nts: NPO at [place] prior to lipid panel Performed By: #### L 300.3900, L100.0100, L500.4050, L500.4100 ####[facility] [address] [place], [address] Triglyceride [Mass/Vol] 78 mg/dL Normal [facility] Comment on above: Order Comment: Comme nts: NPO at [place] prior to lipid panel Result Comment: The drugs N-Acetylcysteine and Metamizole may falsely depress this assay. Serum Triglycerides Reference Interval Normal <150 mg/dL Borderline high 150 - 199 mg/dL High 200 - 499 mg/dL Very High > or = 500 mg/dL Performed By: #### L 300.3900, L100.0100, L500.4050, L500.4100 ####[facility] [address] [place], [address] MR/CON.PCM.NEon 03-29-2024 MR/CON.PCM.NE [facility] Medical Records Department [address] [place] [address] Consultation - Neurology 03/29/24 1458 MR#: [id number] Acct: [id number] Name: ELIUD BLOUNT Rep #: [id number] : 1960 63 From: Crow Barrera MD PCP: Dr. 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 CTA- b/l ICA mild stenosis. The onset he described as sudden while working on the computer. LDL-62. Diagnosis: Stroke vs peripheral etiology Plan: ASA and statin. Follow up MRI Brain and TTE. 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 If MRI brain is negative, then consider MRI C-spine now and EMG/NCV after 7-10 days to rule out peripheral etiology. I personally attended this patient and spent a total time of 80 minutes evaluating this patient including clinical assessment, review of chart, medical history imaging, and determining appropriate treatment and workup. 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 CTA- b/l ICA mild stenosis. The onset he described as sudden while working on the computer. LDL-62. Does report some chronic shortness of breath and chronic cough with his COPD unchanged from usual and sometimes will get a runny nose. ROS otherwise negative [facility] Medical History (Updated 03/28/24 @ 17:[address] Raleigh Hernandez, DO) Pneumonia Pneumonia Left ankle injury Bilateral tennis elbow Depression Sepsis LACEY (obstructive sleep apnea) Lung nodule Hoarseness Sleep-related breathing disorder Pneumonia Encephalopathy Acute respiratory failure COPD (chronic obstructive pulmonary disease) GERD (gastroesophageal reflux disease) Bipolar disorder Migraine Tobacco abuse Spinal stenosis Traumatic brain injury Home Medications ???Medication ???Instructions ???Recorded ???Last Taken ???Type amitriptyline 100 mg tablet 100 mg PO QHS sleep 06/30/19 03/21/24 History levetiracetam 500 mg tablet 500 mg PO DAILY Check with primary 04/28/20 03/28/24 History doctor fluticasone fur. 200 mcg-umeclid 1 inh inhalation DAILY #60 ea 09/24/23 03/28/24 Rx 62.5 mcg-vilant 25 mcg inhalat.powder (Trelegy Ellipta) gabapentin 600 mg tablet 600 mg PO TID 11/25/23 03/28/24 History albuterol sulfate 90 mcg/actuation 2 puff inhalation Q4H PRN 03/15/24 03/28/24 Rx aerosol inhaler shortness of breath or wheezing #8.5 grams albuterol sulfate 2.5 mg/3 mL 2.5 mg (3 mL) inhalation Q4H PRN 03/24/24 03/28/24 Rx (0.083 %) solution for nebulization #120 vials divalproex 250 mg tablet,delayed 750 mg PO BID 03/28/24 03/28/24 History release ibuprofen 200 mg tablet (Addaprin) 400 mg PO Q8H PRN pain 03/28/24 03/28/24 History Allergy/AdvReac Type Severity Reaction Status Date / Time dextromethorphan HBr (From AdvReac Intermediate tachycardia, Verified 03/28/24 14:48 NyQuil) feels anxious doxylamine (From NyQuil) AdvReac Intermediate Tachycardia, Verified 03/28/24 14:48 feels anxious pseudoephedrine HCl (From AdvReac Intermediate Tachycardia, Verified 03/28/24 14:48 NyQuil) feels anxious sertraline HCl (From Zoloft) AdvReac Diarrhea Verified 03/28/24 14:48 Family History Father Dementia Alzheimers disease Diabetes Mother Diabetes Surgical History History of hernia repair Social History Smoking Status: Heavy Smoker (>10/day) Tobacco: How many years used: 30 second hand exposure: Yes alcohol intake: never substance use type: does not use Vital Signs Vital Signs Vital Signs: 03/28/24 15:39 03/28/24 15:41 03/28/24 15:54 Temperature Temperature Source Pulse Rate 78 78 Respiratory Rate 16 15 Respiratory Effort Respiratory Depth Respiratory Pattern Blood Pressure 118/89 H 164/100 H Blood Pressure Mean 98 121 Blood Pressure Source Blood Pressure Position Blood Pressure Location Pulse Ox 99 95 Oxygen Delivery Method Room Air Room Air Room Air 03/28/24 16:24 03/28/24 16:54 03/28/24 17:24 Temperature Temperature Source Pulse Rate 80 80 75 Respiratory Rate 13 15 16 Respiratory Effort Respiratory Depth Respiratory Pattern Blood Pressure 146/101 H 132/96 H 136/108 H Blood Pressure Mean 116 108 117 (more content not included)... Normal [facility] Prothrombin Time w/INRon INR Coag (PPP) [Relative time] 1.1 {INR} Normal [facility] Comment on above: Performed By: #### L 300.3900, L100.0100, L500.4050, L500.4100 ####[facility] [address] [place], [address] PT Coag (PPP) [Time] 14.4 s Normal 11.7-14.9 [facility] Comment on above: Performed By: #### L 300.3900, L100.0100, L500.4050, L500.4100 ####[facility] [address] [place], [address] 12 Lead EKGon 03-28-2024 12 Lead EKG [facility] Cardiovascular Services [address] [place] [address] 12 Lead EKG 03/28/24 1539 MR#: [id number] Acct: [id number] Name: ELIUD BLOUNT Rep #: [id number] : 1960 63 From: Salazar Gregorio MD Attending Dr: Dr. Calvin Pedro MD Status: DIS TEX Ordering Dr: Raleigh Hernandez DO Date: 03/28/24 Location: [facility] Sex: M C Admitted: 03/28/24 Test Reason : Blood Pressure : / mmHG Vent. Rate : 074 BPM Atrial Rate : 074 BPM P-R Int : 116 ms QRS Dur : 094 ms QT Int : 392 ms P-R-T Axes : 068 091 075 degrees QTc Int : 435 ms Normal sinus rhythm Rightward axis Borderline ECG Confirmed by Salazar Gregorio ([id number]), editor city [place] MULLINS ([id number]) on 03/30/2024 7:52:50 AM Referred By: Confirmed By:Salazar Gregorio 03/30/24 0752 Date Salazar Gregorio MD CC: Dr. Charan Arndt MD; Dr. Calvin Pedro MD; Dr. Raleigh Hernandez DO Signed Normal [facility] Basic Metabolic Profile (BMP )on 03-28-2024 BUN/CRE 19.0 RATIO Normal 10-20 [facility] Comment on above: Order Comment: 'TROP ' Serial specimen #1, #2 or #3: 1 Performed By: #### L 100.0100, L300.3900, L300.4310, L500.2500, L501.4020 ####[facility] [address] [place], [address] CA,Total 9.1 mg/dL Normal 8.5-10.1 [facility] Comment on above: Order Comment: 'TROP ' Serial specimen #1, #2 or #3: 1 Performed By: #### L 100.0100, L300.3900, L300.4310, L500.2500, L501.4020 ####[facility] [address] [place], [address] Chloride [Moles/Vol] 98 mmol/L Normal 98-107 [facility] Comment on above: Order Comment: 'TROP ' Serial specimen #1, #2 or #3: 1 Performed By: #### L 100.0100, L300.3900, L300.4310, L500.2500, L501.4020 ####[facility] [address] [place], [address] CO2 [Moles/Vol] 33.0 mmol/L High 21.0-32.0 [facility] Comment on above: Order Comment: 'TROP ' Serial specimen #1, #2 or #3: 1 Performed By: #### L 100.0100, L300.3900, L300.4310, L500.2500, L501.4020 ####[facility] [address] [place], [address] Creatinine [Mass/Vol] 0.63 mg/dL Low 0.70-1.30 [facility] Comment on above: Order Comment: 'TROP ' Serial specimen #1, #2 or #3: 1 Result Comment: The validity of the calculated GFR GFRAA in patients over 70 years has not been determined. Clinical correlation is essential. Performed By: #### L 100.0100, L300.3900, L300.4310, L500.2500, L501.4020 ####[facility] [address] [place], [address] ECRCL 95.19 ml/min Normal [facility] Comment on above: Order Comment: 'TROP ' Serial specimen #1, #2 or #3: 1 Performed By: #### L 100.0100, L300.3900, L300.4310, L500.2500, L501.4020 ####[facility] [address] [place], [address] EST GFR - AA 166 mL/min Normal >60 [facility] Comment on above: Order Comment: 'TROP ' Serial specimen #1, #2 or #3: 1 Result Comment: Afri can Bhutanese GFR Calc Performed By: #### L 100.0100, L300.3900, L300.4310, L500.2500, L501.4020 ####[facility] [address] [place], [address] GAP 5 Normal 5-15 [facility] Comment on above: Order Comment: 'TROP ' Serial specimen #1, #2 or #3: 1 Performed By: #### L 100.0100, L300.3900, L300.4310, L500.2500, L501.4020 ####[facility] [address] [place], [address] GFR/1.73 sq M.predicted among non-blacks MDRD (S/P/Bld) [Vol rate/Area] 137 mL/min/{1.73_m2} Normal >60 [facility] Comment on above: Order Comment: 'TROP ' Serial specimen #1, #2 or #3: 1 Result Comment: Non- GFR Calc Performed By: #### L 100.0100, L300.3900, L300.4310, L500.2500, L501.4020 ####[facility] [address] [place], [address] Glucose [Mass/Vol] 88 mg/dL Normal 74-106 [facility] Comment on above: Order Comment: 'TROP ' Serial specimen #1, #2 or #3: 1 Performed By: #### L 100.0100, L300.3900, L300.4310, L500.2500, L501.4020 ####[facility] [address] [place], [address] Potassium [Moles/Vol] 3.5 mmol/L Normal 3.5-5.1 [facility] Comment on above: Order Comment: 'TROP ' Serial specimen #1, #2 or #3: 1 Performed By: #### L 100.0100, L300.3900, L300.4310, L500.2500, L501.4020 ####[facility] [address] [place], [address] Sodium [Moles/Vol] 135 mmol/L Low 136-145 [facility] Comment on above: Order Comment: 'TROP ' Serial specimen #1, #2 or #3: 1 Performed By: #### L 100.0100, L300.3900, L300.4310, L500.2500, L501.4020 ####[facility] [address] [place], [address] Urea nitrogen [Mass/Vol] 12 mg/dL Normal 7-18 [facility] Comment on above: Order Comment: 'TROP ' Serial specimen #1, #2 or #3: 1 Performed By: #### L 100.0100, L300.3900, L300.4310, L500.2500, L501.4020 ####[facility] [address] [place], [address] Brain without Contraston Brain without Contrast [facility] Imaging Services [address] [place] [address] Brain without Contrast MR#: [id number] Acct: [id number] Name: ELIUD BLOUNT Rep #: [id number] : 1960 M 63 From: Miguel Ángel Davis MD PCP: Dr. Charan Arndt MD Status: ADM TEX Study: Brain without Contrast Date of Exam: 03/28/24 Exam# [id number] Ordering Dr: Becky Thomas MD [id number] EXAM: MR HEAD WITHOUT INTRAVENOUS CONTRAST CLINICAL INDICATION: Right arm weakness and ataxia. Rule out CVA. TECHNIQUE: Multiplanar and multisequence MR images of the brain were obtained without intravenous contrast. COMPARISON: MRI brain without contrast 03/24/2019. CT head without contrast 03/28/2024. FINDINGS: BRAIN AND EXTRA-AXIAL SPACES: No diffusion restriction to suspect acute or subacute ischemic infarct. 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 No intra- or extra-axial hemorrhage. No intracranial mass or mass effect. Posterior fossa structures are unremarkable. No hydrocephalus. Basal cisterns are patent. SELLA: Unremarkable. Normal sella turcica, pituitary gland, infundibular stalk, optic chiasm and hypothalamus. AUDITORY SYSTEM: Unremarkable. The internal auditory canals are patent. BONES/JOINTS: Unremarkable. No discrete lytic or blastic abnormalities. SINUSES: Unremarkable as visualized. Clear. MASTOID AIR CELLS: Unremarkable as visualized. Clear. ORBITS: Unremarkable as visualized. Both globes, extraocular muscles, optic nerves and retrobulbar fat appear unremarkable. VASCULATURE: Unremarkable as visualized. Normal flow voids in the major intracranial circulation. MRI/Brain without Contrast IMPRESSION: 1. No MRI evidence of acute or subacute ischemic infarct or acute intracranial abnormality. 2. 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 3. No significant interval change when compared to MRI brain of 03/24/2019. Electronically Signed: Miguel Ángel Davis MD at 15:23 EDT , CC: Dr. Charan Arndt MD; Dr. Becky Thomas MD Galley Hand: Signed Normal [facility] Brain/Head without Contrasto n 03-28-2024 Brain/Head without Contrast [facility] Imaging Services [address] [place], [place] [address] Brain/Head without Contrast MR#: [id number] Acct: [id number] Name: ELIUD BLOUNT Rep #: [id number] : 1960 M 63 From: Maurisio Dale PCP: Dr. Charan Arndt MD Status: PRE ER Study: Brain/Head without Contrast Date of Exam: 03/16 09/06 Exam# [id number] Ordering Dr: Raleigh Hernandez DO [id number] EXAM: CT HEAD WITHOUT INTRAVENOUS CONTRAST CLINICAL INDICATION: cva -- right arm/leg numb, RUE ataxia TECHNIQUE: Multiple axial images were obtained of the head without intravenous contrast. This CT exam was performed using one or more of the following dose reduction techniques: automated exposure control, adjustment of the mA and/or kV according to patient size, and/or use of iterative reconstruction technique. RADIATION DOSE: CTDIvol = 44.99 mGy, DLP = 829.85 mGy-cm COMPARISON: No relevant prior studies available. 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 No intra- or extra-axial hemorrhage. No intracranial mass or mass effect. Posterior fossa structures are unremarkable. Ventricles are appropriate for age. No hydrocephalus. Basal cisterns are patent. BONES/JOINTS: Unremarkable. No discrete lytic or blastic abnormalities. SINUSES: Unremarkable as visualized. Clear. MASTOID AIR CELLS: Unremarkable. Clear. ORBITS: Visualized globes, extraocular muscles, optic nerves and retrobulbar fat appear unremarkable. CT/Brain/Head without Contrast IMPRESSION: No acute findings in the head/brain. Electronically Signed: Maurisio Sanon MD at 16:08 EDT , CC: Dr. Charan Arndt MD; Dr. Raleigh Hernandez DO Galley Hand: Signed Normal [facility] CBC W/Diff, Automatedon 03-16 Absolute Lymph 2.61 X10 3/uL Normal 0.83-4.51 [facility] Comment on above: Performed By: #### L 100.0100, L300.3900, L300.4310, L500.2500, L501.4020 ####[facility] [address] [place], [address] Absolute Neut 4.0 X10 3/uL Normal 2.0-7.7 [facility] Comment on above: Performed By: #### L 100.0100, L300.3900, L300.4310, L500.2500, L501.4020 ####[facility] [address] [place], [address] Basophils/100 WBC (Bld) 0.7 % Normal 0-1 [facility] Comment on above: Performed By: #### L 100.0100, L300.3900, L300.4310, L500.2500, L501.4020 ####[facility] [address] [place], [address] Eosinophils/100 WBC (Bld) 1.2 % Normal 0-5 [facility] Comment on above: Performed By: #### L 100.0100, L300.3900, L300.4310, L500.2500, L501.4020 ####[facility] [address] [place], [address] Erythrocyte distribution width (RBC) [Ratio] 13.4 % Normal 11.6-14.6 [facility] Comment on above: Performed By: #### L 100.0100, L300.3900, L300.4310, L500.2500, L501.4020 ####[facility] [address] [place], [address] Hematocrit (Bld) [Volume fraction] 45.9 % Normal 40-54 [facility] Comment on above: Performed By: #### L 100.0100, L300.3900, L300.4310, L500.2500, L501.4020 ####[facility] [address] [place], [address] Hemoglobin (Bld) [Mass/Vol] 14.7 g/dL Normal 13.0-16.5 [facility] Comment on above: Performed By: #### L 100.0100, L300.3900, L300.4310, L500.2500, L501.4020 ####[facility] [address] [place], [address] IG% 0.300 Normal 0.0-0.9 [facility] Comment on above: Result Comment: IG% - Immature Granulocytes (promyelocytes, myelocytes and metamyelocytes) > 1% indicates that a LEFT SHIFT is Present. Performed By: #### L 100.0100, L300.3900, L300.4310, L500.2500, L501.4020 ####[facility] [address] [place], [address] Lymphocytes/100 WBC (Bld) 35.9 % Normal 19-41 [facility] Comment on above: Performed By: #### L 100.0100, L300.3900, L300.4310, L500.2500, L501.4020 ####[facility] [address] [place], [address] MCH (RBC) [Entitic mass] 30.0 pg Normal 27.0-32.0 [facility] Comment on above: Performed By: #### L 100.0100, L300.3900, L300.4310, L500.2500, L501.4020 ####[facility] [address] [place], [address] MCHC (RBC) [Mass/Vol] 32.0 g/dL Normal 32-36 [facility] Comment on above: Performed By: #### L 100.0100, L300.3900, L300.4310, L500.2500, L501.4020 ####[facility] [address] [place], [address] MCV (RBC) [Entitic vol] 93.7 fL Normal 80-94 [facility] Comment on above: Performed By: #### L 100.0100, L300.3900, L300.4310, L500.2500, L501.4020 ####[facility] [address] [place], [address] Monocytes/100 WBC (Bld) 6.7 % Normal 0-10 [facility] Comment on above: Performed By: #### L 100.0100, L300.3900, L300.4310, L500.2500, L501.4020 ####[facility] [address] [place], [address] Neutrophils/100 WBC (Bld) 55.2 % Normal 47-70 [facility] Comment on above: Performed By: #### L 100.0100, L300.3900, L300.4310, L500.2500, L501.4020 ####[facility] [address] [place], [address] Nucleated RBC (Bld) [#/Vol] 0 10*3/uL Normal 0-5 [facility] Comment on above: Performed By: #### L 100.0100, L300.3900, L300.4310, L500.2500, L501.4020 ####[facility] [address] [place], [address] Platelet mean volume (Bld) [Entitic vol] 8.4 fL Normal 6.2-12.0 [facility] Comment on above: Performed By: #### L 100.0100, L300.3900, L300.4310, L500.2500, L501.4020 ####[facility] [address] [place], [address] Platelets (Bld) [#/Vol] 356 10*3/uL Normal 150-450 [facility] Comment on above: Performed By: #### L 100.0100, L300.3900, L300.4310, L500.2500, L501.4020 ####[facility] [address] [place], [address] RBC (Bld) [#/Vol] 4.90 10*6/uL Normal 4.6-6.2 [facility] Comment on above: Performed By: #### L 100.0100, L300.3900, L300.4310, L500.2500, L501.4020 ####[facility] [address] [place], [address] RDW SD 45.8 fl High 35.1-43.9 [facility] Comment on above: Performed By: #### L 100.0100, L300.3900, L300.4310, L500.2500, L501.4020 ####[facility] [address] [place], [address] WBC (Bld) [#/Vol] 7.3 10*3/uL Normal 4.4-11.0 [facility] Comment on above: Performed By: #### L 100.0100, L300.3900, L300.4310, L500.2500, L501.4020 ####[facility] [address] [place], [address] OVon 03-28-2024 CN Office Visit (UCWSTR ) JOSE ALEJANDROELIUD Stallworth ([id number]) 1960 M Date Time Provider Department 03/28/24 2:45 PM VINITA LILLY [facility] During your visit today, we recorded the following information about you: Vinita Lilly APRN.[employer] 03/28/2024 2:59 PM Signed Patient triaged at [facility], here today with sudden onset contracture [...] it and was in the icu NYQUIL ([id number]-ODH-QH-DERIC TAMIN*07/08/2007 5 - Intolerance Date Reviewed: 02/22/2024 Reviewed [...] before breakfast. 1/2 hr before meal. - fluticasone-umeclidin -vilanter (TRELEGY ELLIPTA) 100-62.5-25 mcg Inhale 1 Puff [...] NOS [E55.9] 04/30/2007 Rotator cuff dis NEC [IFB1002] 05/20/2007 08/07/2010 Brachial neuritis or radiculitis NOS [M54.12] 05/20/2007 08/07/2010 Pain in soft tissues of limb [M79.609] 08/05/2007 08/07/2010 Unilat ing hernia [K40.90] 12/27/2007 08/07/2010 Recur unilat ing chantel [K40.91] 01/11/2008 08/07/2010 Follow-up examination, following unspecified crane*01/20/2008 08/07/2010 ALCOH DEP NEC/NOS-UNSPEC [F10.20] 02/16/2008 Umbilical hernia without mention of obstruction*08/07/2010 Gastritis/duodenitis [K29.70, K29.90] 02/07/2009 08/07/2010 Blood in [...] Status:Closed by VINITA LILLY on 03/28/24 Normal [facility] CTA Head AND Neck W/ Contras ton 03-28-2024 CTA Head AND Neck W/ Contrast [facility] Imaging Services [address] [place], [place] [address] CTA Head AND Neck W/ Contrast MR#: [id number] Acct: [id number] Name: ELIUD BLOUNT Rep #: [id number] : 1960 M 63 From: Maurisio Dale PCP: Dr. Charan Arndt MD Status: ADM TEX Study: CTA Head AND Neck W/ Contrast Date of Exam: Exam# [id number] Ordering Dr: Becky Thomas MD [id number] EXAM: CT ANGIOGRAPHY HEAD AND NECK WITH INTRAVENOUS CONTRAST CLINICAL INDICATION: Neuro deficit, acute, stroke suspected TECHNIQUE: [place] [facility] [place]/head and neck CT angiography protocol performed with intravenous contrast. This CT exam was performed using one or more of the following dose reduction techniques: automated exposure control, adjustment of the mA and/or kV according to patient size, and/or use of iterative reconstruction technique. MIP reconstructed images were created and reviewed. CONTRAST: IV 100mL Isovue-370 RADIATION DOSE: CTDIvol = 20.76 mGy, DLP = 661.51 mGy-cm COMPARISON: No relevant prior studies available. FINDINGS: HEAD: RIGHT ANTERIOR CEREBRAL ARTERY: Unremarkable. No occlusion or significant stenosis. Anterior communicating artery is present. No aneurysm. RIGHT MIDDLE CEREBRAL ARTERY: Unremarkable. No occlusion or significant stenosis. No aneurysm. RIGHT POSTERIOR CEREBRAL ARTERY: Unremarkable. No occlusion or significant stenosis. No aneurysm. RIGHT INTRACRANIAL INTERNAL CAROTID ARTERY: Unremarkable. No significant stenosis. No dissection or occlusion. RIGHT INTRACRANIAL VERTEBRAL ARTERY: Unremarkable. No significant stenosis. No dissection or occlusion. LEFT ANTERIOR CEREBRAL ARTERY: Unremarkable. No occlusion or significant stenosis. No aneurysm. LEFT MIDDLE CEREBRAL ARTERY: Unremarkable. No occlusion or significant stenosis. No aneurysm. LEFT POSTERIOR CEREBRAL ARTERY: Unremarkable. No occlusion or significant stenosis. No aneurysm. LEFT INTRACRANIAL INTERNAL CAROTID ARTERY: Unremarkable. No significant stenosis. No dissection or occlusion. LEFT INTRACRANIAL VERTEBRAL ARTERY: Unremarkable. No significant stenosis. No dissection or occlusion. BASILAR ARTERY: Unremarkable. No occlusion or significant stenosis. No aneurysm. OTHER VASCULATURE: There is calcified plaque formation of the right cavernous carotid artery, with a mild stenosis (less than 50%). ALL ABOVE CRITERIA BY NASCET. There is calcified plaque formation of the left cavernous carotid artery, with a mild stenosis (less than 50%). ALL ABOVE CRITERIA BY NASCET. No vascular malformation. NECK: RIGHT COMMON CAROTID ARTERY: Unremarkable. No significant stenosis. No dissection or occlusion. RIGHT EXTRACRANIAL INTERNAL CAROTID ARTERY: There is mild atherosclerotic plaque formation of the origin of the right internal carotid artery with less than 50% cross sectional diameter stenosis. ALL ABOVE CRITERIA BY NASCET. No dissection or occlusion. RIGHT EXTERNAL CAROTID ARTERY: Unremarkable. No occlusion. RIGHT EXTRACRANIAL VERTEBRAL ARTERY: Unremarkable. No significant stenosis. No dissection or occlusion. LEFT COMMON CAROTID ARTERY: Unremarkable. No significant stenosis. No dissection or occlusion. LEFT EXTRACRANIAL INTERNAL CAROTID ARTERY: There is mild atherosclerotic plaque formation of the origin of the left internal carotid artery with less than 50% cross sectional diameter stenosis. ALL ABOVE CRITERIA BY NASCET. No dissection or occlusion. LEFT EXTERNAL CAROTID ARTERY: Unremarkable. No occlusion. LEFT EXTRACRANIAL VERTEBRAL ARTERY: Unremarkable. No significant stenosis. No dissection or occlusion. BRACHIOCEPHALIC AND SUBCLAVIAN ARTERIES: Unremarkable as visualized. No occlusion or significant stenosis. LUNG APICES: Apical pulmonary emphysema. HEAD and NECK: BONES/JOINTS: There are degenerative findings of the cervical spine. No discrete lytic or blastic abnormalities. SOFT TISSUES: Unremarkable. OTHER FINDINGS: Post-processing of the images was performed, with axial imaging and 3D reconstruction. MIPS images were obtained. CAROTID STENOSIS REFERENCE USING NASCET CRITERIA: % ICA stenosis = (1 - narrowest ICA diameter/diameter of distal cervical ICA) x 100. Mild - <50% stenosis. Moderate - 50-69% stenosis. Severe - 70-94% stenosis. Near occlusion - 95-99% stenosis. Occluded - 100% stenosis. CT/CTA Head AND Neck W/ Contrast IMPRESSION: 1. There is mild atherosclerotic plaque formation of the origin of the right internal carotid artery with less than 50% cross sectional diameter stenosis. ALL ABOVE CRITERIA BY NASCET. 2. There is mild atherosclerotic plaque formation of the origin of the left internal carotid artery with less than 50% cross sectional diameter stenosis. ALL ABOVE CRITERIA BY NASCET. 3. Ther (more content not included)... Normal [facility] Chest 1 Viewon 03-28-2024 Chest 1 View [facility] Imaging Services [address] [place], [place] [address] Chest 1 View MR#: [id number] Acct: [id number] Name: ELIUD BLOUNT Rep #: [id number] : 1960 M 63 From: Maurisio Dale PCP: Dr. Charan Arndt MD Status: REG ER Study: Chest 1 View Date of Exam: 03/28/24 Exam# [id number] Ordering Dr: Raleigh Hernandez DO [id number] STUDY: XR Chest 1 View 03/28/2024 3:48 PM REASON FOR EXAM: Male, 63 years old. Neuro deficit, acute, stroke suspected COMPARISON: 10.21.23 TECHNIQUE: XR Chest 1 View FINDINGS: Chronic scarring or pleural effusion. Normal heart size. Normal mediastinum. Normal noreen. Prominent appearing increased interstitial lung markings. Normal visualized pulmonary arteries. There is atherosclerotic calcification of the aortic arch with tortuosity. There are diffuse degenerative changes of the visualized thoracic spine. There is degenerative osteoarthritis of the bilateral shoulders. There are no acute findings of the upper abdomen. RAD/Chest 1 View IMPRESSION: Chronic scarring or pleural effusion. Electronically Signed: Maurisio Sanon MD at 16:27 EDT Reading Location ID and State: [facility] / [place] , Service support , CC: Dr. Charan Arndt MD; Dr. Raleigh Hernandez DO Galley Hand: Signed Normal [facility] Echo Completeon 03-28-2024 Echo Complete [facility] Cardiovascular Services [address] [place] [address] Echo Complete 03/29/24 1141 MR#: [id number] Acct: [id number] Name: ELIUD BLOUNT Rep #: [id number] : 1960 63 From: Johnny Xavier MD Attending Dr: Dr. Calvin Pedro MD Status: ADM TEX Ordering Dr: Becky Thomas MD Date: 03/28/24 Location: [facility] Sex: M C Admitted: 03/28/24 Reason For Study: TIA/STROKE Procedure This was a 2D Doppler, Color Flow transthoracic echocardiogram. The study was technically difficult. Study done from subcostals due to body habitus and no apical windows. Left Ventricle Normal LV size. The estimated ejection fraction is 55 %. No evidence for diastolic dysfunction. No regional wall motion abnormalities noted. Right Ventricle Normal RV size. Normal systolic function. Atria The left and right atria are normal. No doppler evidence for ASD. Mitral Valve There is no mitral valve stenosis. No mitral valve insufficiency. Tricuspid Valve There is no tricuspid stenosis. Unable to estimate RV systolic pressure due to inadequate jet, pulmonary artery pressure probably normal. Aortic Valve Trisinus/trileaflet aortic valve. There is no aortic stenosis. No aortic valve insufficiency. Pulmonic Valve There is no pulmonic valvular stenosis. No pulmonic valve insufficiency. Great Vessels Normal aortic root. Pericardium/Pleural No pericardial effusion. MMode/2D Measurements Calculations LVIDd: 3.7 cm IVSd: 0.92 cm LVOT diam: 2.4 cm LVIDs: 2.7 cm LVPWd: 1.0 cm LVOT area: 4.4 cm2 RVDd: 3.5 cm FS: 26.1 % LAV(MOD-sp4): 20.1 ml LA A4 area: 10.5 cm2 RA A4 area: 6.1 cm2 Time Measurements MV dec time: 0.17 sec Doppler Measurements Calculations MV E max elizabeth: 39.3 cm/sec Lat Peak E' Elizabeth: 14.2 cm/sec Med Peak E' Elizabeth: 9.5 cm/sec MV A max elizabeth: 44.9 cm/sec E/E' lat: 2.8 E/E' med: 4.1 MV E/A: 0.87 MV dec slope: 234.8 cm/sec2 Ao V2 max: 92.4 cm/sec LV V1 max: 76.2 cm/sec Ao max P.4 mmHg LV V1 max P.3 mmHg Ao V2 mean: 70.3 cm/sec LV V1 mean P.2 mmHg Ao mean P.2 mmHg LV V1 mean: 51.3 cm/sec Ao V2 VTI: 20.7 cm LV V1 VTI: 15.1 cm AV (velocity ratio): 0.73 BRIAN(I,D): 3.2 cm2 BRIAN(V,D): 3.7 cm2 SV(LVOT): 67.1 ml PA V2 max: 71.4 cm/sec PA V2 mean: 43.6 cm/sec ECHO/Echo Complete Interpretation Summary The estimated ejection fraction is 55 %. No evidence for diastolic dysfunction. Ordering Physician: Becky Thomas Referring Physician: CHARAN ARNDT Performed By: Padmini Carrasco and Student 03/29/24 1342 Date Johnny Xavier MD CC: Dr. Charan Arndt MD; Dr. Calvin Pedro MD; Dr. Becky Thomas MD Date Dictated: 03/29/24 1141 Date Transcribed: 03/29/24 1342 Galley Hand: Signed Normal [facility] Emergency Department Summary on 03-28-2024 Emergency Department Summary [facility] Medical Records Department [address] [place] [address] Emergency Department Summary 03/28/24 MR#: [id number] Acct: [id number] Name: ELIUD BLOUNT Rep #: [id number] : 1960 63 From: Raleigh Mosley PCP: Dr. Charan Arndt MD Status:ADM TEX Location: [place] [address] HPI History of Present Illness Chief Complaint: Weakness Informant: patient and spouse/S.O. Narrative Narrative: Presents concerns of weakness right upper extremity occurring while using the computer 2 PM 2 days ago over 40 hours ago. He states he was using the mouse with his arm contracted and, unsteady use of right arm since then. No headache no speech changes. No weakness in the legs. Denies visual changes. Denies any stroke history. History of stage IV COPD no current home oxygen. Absence seizure disorder on Keppra and Depakote. Tobacco history. No diabetes history. He states tingling had increased since onset of symptoms. States tingling from the right elbow down to the hand. Prior similar symptoms: No PFSH PFSH Medical History (Updated 03/28/24 @ 17:[address] Raleigh Hernandez DO) Pneumonia Pneumonia Left ankle injury Bilateral tennis elbow Depression Sepsis LACEY (obstructive sleep apnea) Lung nodule Hoarseness Sleep-related breathing disorder Pneumonia Encephalopathy Acute respiratory failure COPD (chronic obstructive pulmonary disease) GERD (gastroesophageal reflux disease) Bipolar disorder Migraine Tobacco abuse Spinal stenosis Traumatic brain injury Home Medications ???Medication ???Instructions ???Recorded ???Last Taken ???Type amitriptyline 100 mg tablet 100 mg PO QHS sleep 06/30/19 03/21/24 History levetiracetam 500 mg tablet 500 mg PO DAILY Check with primary 04/28/20 03/28/24 [address] doctor fluticasone fur. 200 mcg-umeclid 1 inh inhalation DAILY #60 ea 09/24/23 03/28/24 Rx 62.5 mcg-vilant 25 mcg inhalat.powder (Trelegy Ellipta) gabapentin 600 mg tablet 600 mg PO TID 11/25/23 03/28/24 History albuterol sulfate 90 mcg/actuation 2 puff inhalation Q4H PRN 03/15/24 03/28/24 Rx aerosol inhaler shortness of breath or wheezing #8.5 grams albuterol sulfate 2.5 mg/3 mL 2.5 mg (3 mL) inhalation Q4H PRN 03/24/24 03/28/24 Rx (0.083 %) solution for nebulization #120 vials divalproex 250 mg tablet,delayed 750 mg PO BID 03/28/24 03/28/24 History release ibuprofen 200 mg tablet (Addaprin) 400 mg PO Q8H PRN pain 03/28/24 03/28/24 History Allergy/AdvReac Type Severity Reaction Status Date / Time dextromethorphan HBr (From AdvReac Intermediate tachycardia, Verified 03/28/24 14:48 NyQuil) feels anxious doxylamine (From NyQuil) AdvReac Intermediate Tachycardia, Verified 03/28/24 14:48 feels anxious pseudoephedrine HCl (From AdvReac Intermediate Tachycardia, Verified 03/28/24 14:48 NyQuil) feels anxious sertraline HCl (From Zoloft) AdvReac Diarrhea Verified 03/28/24 14:48 Family History Father Dementia Alzheimers disease Diabetes Mother Diabetes Surgical History History of hernia repair Social History Smoking Status: Heavy Smoker (>10/day) Tobacco: How many years used: 30 second hand exposure: Yes alcohol intake: never substance use type: does not use ROS ROS ED Constitutional Constitutional ED: Denies chills, fever(s) or sweats Eyes Eyes: Denies change in vision ENT ENT ED: Denies dysphagia or sore throat Cardiovascular Cardiovascular: Denies chest pain, leg edema, palpitations or racing heartbeat Respiratory/Chest Respiratory/Chest: Denies cough, dyspnea or dyspnea on exertion Gastrointestinal Gastrointestinal: Denies abdominal pain, diarrhea, nausea or vomiting Genitourinary Genitourinary ED: Denies dysuria, hematuria or urinary frequency Musculoskeletal Musculoskeletal: Denies back pain, extremity pain or neck pain Integumentary Denies rash or wounds Neurologic Neurologic: Reports paresthesias and weakness; Denies headache(s) EXAM Physical Exam Const Vital Signs: 03/28/24 14:48 03/28/24 14:58 03/28/24 15:39 Temperature 96.8 F L Temperature Source Temporal Pulse Rate 80 Respiratory Rate 16 Respiratory Effort Normal Non-Labored Respiratory Pattern Normal Blood Pressure 141/93 H Blood Pressure Mean 109 Pulse Ox 100 Oxygen Delivery Method Room Air Room Air 03/28/24 15:41 03/28/24 15:54 03/28/24 16:24 Temperature Temperature Source Pulse Rate 78 78 80 Respiratory Rate 16 15 13 Respiratory Effort Respiratory Pattern Blood Pressure 118/89 H 164/100 H 146/101 H Blood Pressure Mean 98 121 116 Pulse Ox 99 95 97 Oxygen Delivery Method Room (more content not included)... Normal [facility] H AND P Exam - Hospitaliston 03-28-2024 H&P Exam - Hospitalist [facility] Medical Records Department [address] [place] [address] H P Exam - Hospitalist 03/28/24 1800 MR#: [id number] Acct: [id number] Name: ELIUD BLOUNT Rep #: [id number] : 1960 63 From: Becky Thomas MD PCP: Dr. Charan Arndt MD Status:REG ER Location: ED HPI - General General Date of Admission: 03/28/24 Date of Service: 03/28/24 Chief Complaint: R arm numbness and incoordination HPI Narrative ELIUD BLOUNT, is a 63 M with a history of absence seizure's, COPD, tobacco use who presented to [facility] ED 03/28/2024 with difficulty controlling his right arm and decreased sensation. 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 Due to overt deficits on exam hospitalist contacted for admission for CVA evaluation. Patient evaluated bedside, reports around 2 PM Friday he was on his computer and his right arm contracted and became numb and he had a hard time using it, the symptoms have persisted so he is now presenting to the emergency department, there has been no improvement nor worsening. Denies any other focal complaints. Does report some chronic shortness of breath and chronic cough with his COPD unchanged from usual and sometimes will get a runny nose. ROS otherwise negative [facility] Medical History (Updated 03/28/24 @ 17:[address] Raleigh Hernandez, DO) Acute respiratory failure Bilateral tennis elbow Bipolar disorder COPD (chronic obstructive pulmonary disease) Depression Encephalopathy GERD (gastroesophageal reflux disease) Hoarseness Left ankle injury Lung nodule Migraine LACEY (obstructive sleep apnea) Pneumonia Pneumonia Pneumonia Sepsis Sleep-related breathing disorder Spinal stenosis Tobacco abuse Traumatic brain injury Home Medications ???Medication ???Instructions ???Recorded ???Last Taken ???Type amitriptyline 100 mg tablet 100 mg PO QHS sleep 06/30/19 03/21/24 History levetiracetam 500 mg tablet 500 mg PO DAILY Check with primary 04/28/20 03/28/24 History doctor fluticasone fur. 200 mcg-umeclid 1 inh inhalation DAILY #60 ea 09/24/23 03/28/24 Rx 62.5 mcg-vilant 25 mcg inhalat.powder (Trelegy Ellipta) gabapentin 600 mg tablet 600 mg PO TID 11/25/23 03/28/24 History albuterol sulfate 90 mcg/actuation 2 puff inhalation Q4H PRN 03/15/24 03/28/24 Rx aerosol inhaler shortness of breath or wheezing #8.5 grams albuterol sulfate 2.5 mg/3 mL 2.5 mg (3 mL) inhalation Q4H PRN 03/24/24 03/28/24 Rx (0.083 %) solution for nebulization #120 vials divalproex 250 mg tablet,delayed 750 mg PO BID 03/28/24 03/28/24 History release ibuprofen 200 mg tablet (Addaprin) 400 mg PO Q8H PRN pain 03/28/24 03/28/24 History Allergy/AdvReac Type Severity Reaction Status Date / Time dextromethorphan HBr (From AdvReac Intermediate tachycardia, Verified 03/28/24 14:48 NyQuil) feels anxious doxylamine (From NyQuil) AdvReac Intermediate Tachycardia, Verified 03/28/24 14:48 feels anxious pseudoephedrine HCl (From AdvReac Intermediate Tachycardia, Verified 03/28/24 14:48 NyQuil) feels anxious sertraline HCl (From Zoloft) AdvReac Diarrhea Verified 03/28/24 14:48 Family History Father Dementia Alzheimers disease Diabetes Mother Diabetes Surgical History History of hernia repair Social History Smoking Status: Heavy Smoker (>10/day) Tobacco: How many years used: 30 second hand exposure: Yes alcohol intake: never substance use type: does not use ROS ROS Narrative General: Denies fever/chills HENT: Denies headache, occasionally has runny nose, denies sore throat EYES: Denies changes in vision Resp: Some chronic shortness of breath and chronic cough unchanged from usual Cardiac: Denies chest pain GI: Denies abdominal pain, denies changes in bowel, denies nausea/vomiting : Denies changes in urination Extremity: Denies swelling MSK: Right arm weakness and incoordination Neuro: Decreased sensation in right arm Heme: Denies any bleeding or bruising Skin: Denies rashes Psychiatric: No complaints voiced Vital Signs Vital Signs Vital Signs: 03/28/24 14:48 03/28/24 14:58 03/28/24 15:39 Temperature 96.8 F L Temperature Source Temporal Pulse Rate 80 Respiratory Rate 16 Respiratory Effort Normal Non-Labored Respiratory Pattern Normal Blood Pressure 141/93 H Blood Pressure Mean 109 Pulse Ox 100 Oxygen Delivery Method Room Air Room Air 03/28/24 15:41 03/28/24 15:54 03/28/24 16:24 Temperature Temperature Source Pulse Rate 78 78 80 Respiratory Rate 16 15 13 Respiratory Effort Respiratory Pattern (more content not included)... Normal [facility] L501.4020on 03-28-2024 TROPONIN-I HS 6 pg/mL Normal 3.0-78.0 [facility] Comment on above: Order Comment: 'TROP ' Serial specimen #1, #2 or #3: 1 Result Comment: Plea se Note: New Test Units and Gender Specific Reference Ranges. For more information see Policy Stat Procedure [place] High Sensitivity Troponin (TNIH) and attachments. Performed By: #### L 100.0100, L300.3900, L300.4310, L500.2500, L501.4020 ####[facility] [id number] [place], [address] Partial Thromboplast Timeon 03-28-2024 aPTT Coag (Bld) [Time] 30.4 s Normal 24.1-36.2 [facility] Comment on above: Performed By: #### L 100.0100, L300.3900, L300.4310, L500.2500, L501.4020 ####[facility] [id number] [place], [address] Prothrombin Time w/INRon INR Coag (PPP) [Relative time] 1.1 {INR} Normal [facility] Comment on above: Performed By: #### L 100.0100, L300.3900, L300.4310, L500.2500, L501.4020 ####[facility] [id number] [place], [address] PT Coag (PPP) [Time] 14.4 s Normal 11.7-14.9 [facility] Comment on above: Performed By: #### L 100.0100, L300.3900, L300.4310, L500.2500, L501.4020 ####[facility] [id number] [place], [address] CNCOon 02-26-2024 CNCO Letter Text Normal [facility] CNCOon 02-23-2024 CNCO Letter Text Normal [facility] Abbey 02-23-2024 ASHOKN Telephone ([facility]) ELIUD BLOUNT ([id number]) 1960 M Date Time Provider Department 02/23/24 VINITA LILLY During your visit today, we recorded the following information about you: Vinita Lilly APRN.CNP 02/23/2024 7:21 AM Signed Please notify positive [...] it and was in the icu NYQUIL ([id number] TAMIN*07/08/2007 5 - Intolerance Date Reviewed: 02/22/2024 Reviewed [...] before breakfast. 1/2 hr before meal. - fluticasone-umeclidin -vilanter (TRELEGY ELLIPTA) 100-62.5-25 mcg Inhale 1 Puff [...] NOS [E55.9] 04/30/2007 Rotator cuff dis NEC [RKC5282] 05/20/2007 08/07/2010 Brachial neuritis or radiculitis NOS [M54.12] 05/20/2007 08/07/2010 Pain in soft tissues of limb [M79.609] 08/05/2007 08/07/2010 Unilat ing hernia [K40.90] 12/27/2007 08/07/2010 Recur unilat ing chantel [K40.91] 01/11/2008 08/07/2010 Follow-up examination, following unspecified crane*01/20/2008 08/07/2010 ALCOH DEP NEC/NOS-UNSPEC [F10.20] 02/16/2008 Umbilical hernia without mention of obstruction*08/07/2010 Gastritis/duodenitis [K29.70, K29.90] 02/07/2009 08/07/2010 Blood in [...] (HCC) [J4*10/15/2023 (more content not included)... Normal [facility] CNOVon 02-22-2024 CNOV Office Visit ([facility] ) ELIUD BLOUNT ([id number]) 1960 M Date Time Provider Department 02/22/24 2:30 PM XOCHILT CABRALES WSTR During your visit today, we recorded the following information about you: Temperature Pulse Respiration Blood pressure 97 degrees 93/minute 20/minute 111/74 Weight 53 kg Xochilt Cabrales, TORPEDOMAN'S MATE.OIL PLANT OPERATOR 02/22/2024 2:51 PM Signed Subjective The history is provided by the patient. No english language learner teacher was used. HPI Eliud Blount is a [...] No date: Chronic obstructive pulmonary disease (COPD) ([facility]) 07/29/2006: DEPRESSIVE DISORDER NEC No date: Diabetes ([facility]) 07/29/2006: Headache(784.0) No date: Hypertension No date: Intracranial injury of other and unspecified nature, without mention of open intracranial wound, unspecified state of consciousness Comment: fell and hit his head in 200307/29/2006: LATERAL EPICONDYLITIS Comment: bilateral 02/16/2008: Other and unspecified alcohol dependence, unspecified drinking behavior 07/29/2006: PERS HX TOBACCO USE 09/2016: Pneumonia Comment: hospitalized and on a ventilator 01/11/2008: RECUR KEISHA WALKER 02/07/2009: Unspecified gastritis and gastroduodenitis without mention of hemorrhage I have confirmed and edited as necessary, the [facility] Review of Systems Constitutional: Negative for chills [...] warranting prompt ER evaluation. Xochilt Cabrales APRN.ASHOK Perez (more content not included)... Normal [facility] COVID AND INFLUENZA A/B AND RSV PCR, ROUTINEon 02-22-2024 SARS-CoV-2 (COVID-19) RNA SOLITARIO+probe Ql (Unsp spec) SARS-COV-2 (AGENT OF COVID-19) RNA: Detected INFLUENZA A RNA: Not detected INFLUENZA B RNA: Not detected RESPIRATORY SYNCYTIAL VIRUS (RSV) RNA: Not detected Abnormal [facility] Comment on above: Performed By: #### C VFLRS ####[facility] LABCLIA [id number] [address] OF [facility] CNOVon 02-03-2024 CNOV Office Visit (UCWSTR ) ELIUD BLOUNT ([id number]) 1960 M Date Time Provider Department 02/03/24 2:15 PM DOTTY HIDALGO WSTR During your visit today, we recorded the following information about you: Temperature Pulse Respiration Blood pressure 97.3 degrees 95/minute 22/minute 131/87 Weight 55 kg Dotty Hidalgo TORPEDOMAN'S MATE.OIL PLANT OPERATOR 02/03/2024 2:39 PM Signed Patient presents with: [...] that cause allergies) or sexually transmitted infections. [place] eye caused by bacteria, viruses, and sexually [...] vision increased sensitivity to light See your store manager (a doctor trained to treat eye conditions) or family doctor if you have any of these persistent symptoms. Ear infections also commonly occur in children who have bacterial conjunctivitis. The store manager will examine your eyes and possibly take [...] infection sh (more content not included)... Normal [facility] Absolute lymphocyte countOrd ered By: Fabricio Kwong on 10-21-2023 Lymphocytes Auto (Unsp spec) [#/Vol] 3.11 10*3/uL 0.83-4.51 [facility] Automated lymphocyte count a s percentage of total leukocytesOrdered By: Fabricio Kwong on 10-21-2023 Lymphocytes/100 WBC Auto (Unsp spec) 43.1 % 19-41 [facility] Basophil percentageOrdered B y: Fabricio Kwong on 10-21-2023 Basophils/100 WBC (Bld) 0.7 % 0-1 [facility] Chloride [Moles/Vol] 104 mmol/L 98-107 [facility] Eosinophils/100 WBC (Bld) 4.3 % 0-5 [facility] Glucose [Mass/Vol] 112 mg/dL 74-106 [facility] Comment on above: Fasting Glucose resu lt from 100 to 125 mg/dL suggests IMPAIRED HOMEOSTASIS per A.D.A. criteria. Hemoglobin (Bld) [Mass/Vol] 14.7 g/dL 13.0-16.5 [facility] Monocytes/100 WBC (Bld) 9.8 % 0-10 [facility] Neutrophils (Bld) [#/Vol] 3.0 10*3/uL 2.0-7.7 [facility] Neutrophils/100 WBC (Bld) 42.0 % 47-70 [facility] Potassium [Moles/Vol] 4.3 mmol/L 3.5-5.1 [facility] Sodium [Moles/Vol] 138 mmol/L 136-145 [facility] WBC (Bld) [#/Vol] 7.2 10*3/uL 4.4-11.0 [facility] Determination of erythrocyte mean corpuscular volume (MCV)Ordered By: Fabricio Kwong on 10-21-2023 MCV (RBC) [Entitic vol] 90.8 fL 80-94 [facility] Erythrocyte distribution wid th ratioOrdered By: Fabricio Kwong on 10-21-2023 Erythrocyte distribution width (RBC) [Ratio] 14.1 % 11.6-14.6 [facility] Erythrocyte distribution wid th standard deviationOrdered By: Fabricio Kwong on 10-21-2023 Erythrocyte distribution width (RBC) [Entitic vol] 47.3 fL 35.1-43.9 [facility] Hematocrit Auto (Bld) [Volum e fraction]Ordered By: Fabricio Kwong on 10-21-2023 Hematocrit (Bld) [Volume fraction] 45.4 % 40-54 [facility] Immature granulocytes/100 WB C Auto (Bld)Ordered By: Fabricio Kwong on 10-21-2023 Immature granulocytes/100 WBC (Bld) 0.100 % 0.0-0.9 [facility] Comment on above: IG% - Immature Granu locytes (promyelocytes, myelocytes and metamyelocytes) > 1% indicates that a LEFT SHIFT is Present. Laboratory - Chemistry and C hemistry - challengeOrdered By: Fabricio Kwong on 10-21-2023 CO2 [Moles/Vol] 29.0 mmol/L 21.0-32.0 [facility] Urea nitrogen/Creatinine [Mass ratio] 21.7 mg/mg 10-20 [facility] Laboratory - Hematology and Cell countsOrdered By: Fabricio Kwong on 10-21-2023 MCH (RBC) [Entitic mass] 29.4 pg 27.0-32.0 [facility] MCHC (RBC) [Mass/Vol] 32.4 g/dL 32-36 [facility] Nucleated RBC/100 WBC (Bld) [Ratio] 0 % 0-5 [facility] Platelet mean volume (Bld) [Entitic vol] 9.4 fL 6.2-12.0 [facility] Platelets (Bld) [#/Vol] 299 10*3/uL 150-450 [facility] No Panel InformationOrdered By: Fabricio Kwong on 10-21-2023 Estimated Creatinine Clearance Calc 106.06 ml/min [facility] Estimated GFR (MDRD) Amer 176 mL/min >60 [facility] Comment on above: GFR Calc Estimated GFR (MDRD) Non-Af Amer 146 mL/min >60 [facility] Comment on above: Non- GFR Calc Troponin I High Sensitivity 12 pg/mL 3.0-78.0 [facility] Comment on above: Please Note: New Gary t Units and Gender Specific Reference Ranges. For more information see Policy Stat Procedure [place] High Sensitivity Troponin (TNIH) and attachments. RBC Auto (Bld) [#/Vol]Ordere d By: Fabricio Kwong on 10-21-2023 RBC (Bld) [#/Vol] 5.00 10*6/uL 4.6-6.2 [facility] Serum or plasma calcium tonio urement (mass/volume)Ordered By: Fabricio Kwong on 10-21-2023 Calcium [Mass/Vol] 8.6 mg/dL 8.5-10.1 [facility] Serum or plasma creatinine m easurement (mass/volume)Ordered By: Fabricio Kwong on 10-21-2023 Creatinine [Mass/Vol] 0.60 mg/dL 0.70-1.30 [facility] Comment on above: The validity of the calculated GFR & GFRAA in patients over 70 years has not been determined. Clinical correlation is essential. Serum or plasma urea nitroge n measurement (mass/volume)Ordered By: Fabricio Kwong on 10-21-2023 Urea nitrogen [Mass/Vol] 13 mg/dL 7-18 [facility] Thin prep Papanicolaou smear with manual screeningOrdered By: Fabricio Kwong on 10-21-2023 Thin prep Papanicolaou smear with manual screening 5 5-15 [facility] CBC W Auto Differential pane l (Bld)on 10-15-2023 Basophils (Bld) [#/Vol] 0.05 10*3/uL [facility] Basophils/100 WBC (Bld) 0.6 % [facility] Differential cell count method Nom (Bld) Auto [facility] Eosinophils (Bld) [#/Vol] 0.18 10*3/uL [facility] Eosinophils/100 WBC (Bld) 2.1 % [facility] Erythrocyte distribution width (RBC) [Ratio] 13.9 % 11.5 - 15.0 % [facility] Hematocrit (Bld) [Volume fraction] 47.2 % 39.0 - 51.0 % [facility] Hemoglobin (Bld) [Mass/Vol] 15.6 g/dL 13.0 - 17.0 g/dL [facility] Immature granulocytes (Bld) [#/Vol] 0.03 10*3/uL [facility] Immature granulocytes/100 WBC (Bld) 0.3 % [facility] Interpretation and review of laboratory results Abnormal [facility] Lymphocytes (Bld) [#/Vol] 3.34 10*3/uL [facility] Lymphocytes/100 WBC (Bld) 38.0 % [facility] MCH (RBC) [Entitic mass] 29.7 pg 26. 0 - 34.0 pg [facility] MCHC (RBC) [Mass/Vol] 33.1 g/dL 30.5 - 36.0 g/dL [facility] MCV (RBC) [Entitic vol] 89.9 fL 80.0 - 100.0 fL [facility] Monocytes (Bld) [#/Vol] 0.63 10*3/uL [facility] Monocytes/100 WBC (Bld) 7.2 % [facility] Neutrophils (Bld) [#/Vol] 4.55 10*3/uL [facility] Neutrophils/100 WBC (Bld) 51.8 % [facility] Nucleated RBC (Bld) [#/Vol] NINF [facility] Nucleated RBC/100 WBC (Bld) [Ratio] 0.0 % /100 WBC [facility] Platelet mean volume (Bld) [Entitic vol] 8.6 fL Low 9.0 - 12.7 fL [facility] Platelets (Bld) [#/Vol] 337 10*3/uL [facility] RBC (Bld) [#/Vol] 5.25 10*6/uL 4.20 - 6.0 0 m/uL [facility] WBC (Bld) [#/Vol] 8.78 10*3/uL [facility] Comprehensive metabolic 2000 panelOrdered By: Lyly Olivarez on 10-15-2023 Albumin [Mass/Vol] 3.8 g/dL Low 3.9 - 4.9 g/dL [facility] ALP [Catalytic activity/Vol] 78 U/L 38 - 113 U/L [facility] ALT [Catalytic activity/Vol] 11 U/L 10 - 54 U/L [facility] Anion gap [Moles/Vol] 3 mmol/L Low 9 - 18 mmol/L [facility] AST [Catalytic activity/Vol] 11 U/L Low 14 - 40 U/L [facility] Bilirubin [Mass/Vol] 0.3 mg/dL 0.2 - 1 .3 mg/dL [facility] Calcium [Mass/Vol] 9.5 mg/dL 8.5 - 10. 2 mg/dL [facility] Chloride [Moles/Vol] 98 mmol/L 97 - 10 5 mmol/L [facility] CO2 [Moles/Vol] 35 mmol/L High 22 - 30 mmol/L [facility] Creatinine [Mass/Vol] 0.65 mg/dL Low 0.73 - 1.22 mg/dL [facility] GFR/1.73 sq M.predicted among non-blacks MDRD (S/P/Bld) [Vol rate/Area] 107 mL/min/{1.73_m2} - PINF [facility] Comment on above: Estimated Glomerular Filtration Rate [...] 118 mg/dL High 74 - 99 mg/dL [facility] Comment on above: The [place] Diab[employer] Association (ADA) provides guidance for [...] Standards of Medical Care in Diabetes 2016, [place] [employer]. Diabetes Care. 2016.39(Suppl 1). Interpretation and review of laboratory results Abnormal [facility] Potassium [Moles/Vol] 4.0 mmol/L 3.7 - 5.1 mmol/L [facility] Protein [Mass/Vol] 6.0 g/dL Low 6.3 - 8.0 g/dL [facility] Sodium [Moles/Vol] 136 mmol/L 136 - 144 mmol/L [facility] Urea nitrogen [Mass/Vol] 11 mg/dL 9 - 24 mg/d L [facility] THYROID STIMULATING HORMONEo n 10-15-2023 TSH Qn 0.659 m[IU]/L [facility] TSH Qnon 10-15-2023 Interpretation and review of laboratory results Normal [facility] XR Chest PA and Lateralon IMPRESSION: 1. Hyperinflated lungs which may be related to underlying COPD. 2.Stable blunting of the right posterior lateral and left posterior costophrenic sulci, findings which may reflect chronic pleural thickening and/or trace chronic pleural effusions. Galley Hand: KEVEN Transcribe Date/Time: Oct 15 2023 10:58A Dictated by : STEPHANIE FITZGERALD MD This examination was interpreted and the report reviewed and electronically signed by: STEPHANIE FITZGERALD MD on Oct 15 2023 11:00AM [facility] DIVISION OF RADIOLOGY * * *Final Report* [...] Mild degenerative changes. DIVISION OF RADIOLOGY Provider, [facility] - 10/15/2023 * * *Final Report* * [...] pleural thickening and/or trace chronic pleural effusions. Galley Hand: PSCB Transcribe Date/Time: Oct 15 2023 10:58A Dictated by : STEPHANIE FITZGERALD MD This examination was interpreted and the report reviewed and electronically signed by: STEPHANIE FITZGERALD MD on Oct 15 2023 11:00AM EST [facility] Radiology Study observation (narrative) [facility] XR Chest PA and LateralOrder ed By: Ccf Provider on 10-15-2023 [facility] CBC W Auto Differential pane l (Bld)on 03-05-2023 Basophils (Bld) [#/Vol] 0.04 10*3/uL <0.11 k/uL [facility] Basophils/100 WBC (Bld) 0.8 % [facility] Differential cell count method Nom (Bld) Auto [facility] Eosinophils (Bld) [#/Vol] 0.09 10*3/uL <0.46 k/uL [facility] Eosinophils/100 WBC (Bld) 1.8 % [facility] Erythrocyte distribution width (RBC) [Ratio] 16.6 % High 11.5 - 15.0 % [facility] Hematocrit (Bld) [Volume fraction] 39.8 % 39.0 - 51.0 % [facility] Hemoglobin (Bld) [Mass/Vol] 12.9 g/dL Low 13.0 - 17.0 g/dL [facility] Immature granulocytes (Bld) [#/Vol] 0.05 10*3/uL <0.10 k/uL [facility] Immature granulocytes/100 WBC (Bld) 1.0 % [facility] Lymphocytes (Bld) [#/Vol] 1.81 10*3/uL 1.00 - 4.00 k/uL [facility] Lymphocytes/100 WBC (Bld) 36.3 % [facility] MCH (RBC) [Entitic mass] 28.0 pg 26. 0 - 34.0 pg [facility] MCHC (RBC) [Mass/Vol] 32.4 g/dL 30.5 - 36.0 g/dL [facility] MCV (RBC) [Entitic vol] 86.5 fL 80.0 - 100.0 fL [facility] Monocytes (Bld) [#/Vol] 0.49 10*3/uL <0.87 k/uL [facility] Monocytes/100 WBC (Bld) 9.8 % [facility] Neutrophils (Bld) [#/Vol] 2.50 10*3/uL 1.45 - 7.50 k/uL [facility] Neutrophils/100 WBC (Bld) 50.3 % [facility] Nucleated RBC (Bld) [#/Vol] <0.01 k/uL [facility] Nucleated RBC/100 WBC (Bld) [Ratio] 0.0 /100 WBC [facility] Platelet mean volume (Bld) [Entitic vol] 9.2 fL 9.0 - 12.7 fL [facility] Platelets (Bld) [#/Vol] 269 10*3/uL 150 - 400 k/uL [facility] RBC (Bld) [#/Vol] 4.60 10*6/uL 4.20 - 6.0 0 m/uL [facility] WBC (Bld) [#/Vol] 4.98 10*3/uL 3.70 - 11. 00 k/uL [facility] Comprehensive metabolic 2000 panelon 03-05-2023 Albumin [Mass/Vol] 3.4 g/dL Low 3.9 - 4.9 g/dL [facility] ALP [Catalytic activity/Vol] 72 U/L 38 - 113 U/L [facility] ALT [Catalytic activity/Vol] 7 U/L Low 10 - 54 U/L [facility] Anion gap [Moles/Vol] 5 mmol/L Low 9 - 18 mmol/L [facility] AST [Catalytic activity/Vol] 11 U/L Low 14 - 40 U/L [facility] Bilirubin [Mass/Vol] 0.3 mg/dL 0.2 - 1 .3 mg/dL [facility] Calcium [Mass/Vol] 8.5 mg/dL 8.5 - 10. 2 mg/dL [facility] Chloride [Moles/Vol] 100 mmol/L 97 - 10 5 mmol/L [facility] CO2 [Moles/Vol] 28 mmol/L 22 - 30 mmol/L [facility] Creatinine [Mass/Vol] 0.64 mg/dL Low 0.73 - 1.22 mg/dL [facility] Estimated Glomerular Filtration Rate 108 mL/min/1.73m >=60 mL/min/1.73m [facility] Glucose [Mass/Vol] 85 mg/dL 74 - 99 mg/dL [facility] Potassium [Moles/Vol] 5.0 mmol/L 3.7 - 5.1 mmol/L [facility] Protein [Mass/Vol] 5.7 g/dL Low 6.3 - 8.0 g/dL [facility] Sodium [Moles/Vol] 133 mmol/L Low 136 - 144 mmol/L [facility] Urea nitrogen [Mass/Vol] 13 mg/dL 9 - 24 mg/d L [facility] Absolute lymphocyte counton 05-19-2022 Lymphocytes Auto (Unsp spec) [#/Vol] 1.29 10*3/uL 0.83-4.51 [facility] Work Phone: Basophil percentageon 2021 Basophils/100 WBC (Bld) 0.2 % 0-1 [facility] Work Phone: Eosinophils/100 WBC (Bld) 0.8 % 0-5 [facility] Work Phone: Neutrophils (Bld) [#/Vol] 11.1 10*3/uL 2.0-7.7 [facility] Work Phone: Neutrophils/100 WBC (Bld) 83.8 % 47-70 [facility] Work Phone: WBC (Bld) [#/Vol] 13.2 10*3/uL 4.4-11.0 [facility] Work Phone: Blood erythrocytes count (nu mber/volume)on 05-19-2022 RBC (Bld) [#/Vol] 4.29 10*6/uL 4.6-6.2 [facility] Work Phone: Blood hemoglobin measurement (mass/volume)on 05-19-2022 Hemoglobin (Bld) [Mass/Vol] 11.1 g/dL 13.0-16.5 [facility] Work Phone: [phone] Blood lymphocytes/100 leukoc yteson 05-19-2022 Lymphocytes/100 WBC (Bld) 9.8 % 19-41 [facility] Work Phone: [phone] Blood monocytes/100 leukocyt eson 05-19-2022 Monocytes/100 WBC (Bld) 4.9 % 0-10 [facility] Work Phone: [phone] Blood platelet mean volumeon 05-19-2022 Platelet mean volume (Bld) [Entitic vol] 8.7 fL 6.2-12.0 [facility] Work Phone: [phone] Determination of erythrocyte mean corpuscular volume (MCV)on 05-19-2022 MCV (RBC) [Entitic vol] 81.8 fL 80-94 [facility] Work Phone: [phone] Hematocrit Auto (Bld) [Volum e fraction]on 05-19-2022 Hematocrit (Bld) [Volume fraction] 35.1 % 40-54 [facility] Work Phone: Laboratory - Hematology and Cell countson 05-19-2022 Erythrocyte distribution width (RBC) [Entitic vol] 51.4 fL 35.1-43.9 [facility] Work Phone: [phone] Erythrocyte distribution width (RBC) [Ratio] 17.2 % 11.6-14.6 [facility] Work Phone: [phone] Immature granulocytes/100 WBC (Bld) 0.500 % 0.0-0.9 [facility] Work Phone: [phone] Comment on above: IG% - Immature Granu locytes (promyelocytes, myelocytes and metamyelocytes) > 1% indicates that a LEFT SHIFT is Present. MCH (RBC) [Entitic mass] 25.9 pg 27.0-32.0 [facility] Work Phone: Nucleated RBC/100 WBC (Bld) [Ratio] 0 % 0-5 [facility] Work Phone: [phone] MCHC Auto (RBC) [Mass/Vol]on 05-19-2022 MCHC (RBC) [Mass/Vol] 31.6 g/dL 32-36 [facility] Work Phone: Platelets bldon 05-19-2022 Platelets (Bld) [#/Vol] 310 10*3/uL 150-450 [facility] Work Phone: Basophil percentageon 2021 Chloride [Moles/Vol] 99 mmol/L 98-107 [facility] Work Phone: Glucose [Mass/Vol] 91 mg/dL 74-106 [facility] Work Phone: Potassium [Moles/Vol] 4.0 mmol/L 3.5-5.1 [facility] Work Phone: Sodium [Moles/Vol] 132 mmol/L 136-145 [facility] Work Phone: Basophil percentage 5-10 SEEN /hpf 0-5 [facility] Work Phone: Bilirubin Test strip Ql (U)o n 05-18-2022 Bilirubin Ql (U) Negative Negative [facility] Work Phone: Blood jeramie cells detection b y light microscopyon 05-18-2022 Jeramie cells LM Ql (Bld) 1+ [facility] Work Phone: Blood platelet adequacy dete ction by light microscopyon 05-18-2022 Platelets LM Ql (Bld) ADEQUATE ADEQ [facility] Work Phone: Blood poikilocytosis detecti on by light microscopyon 05-18-2022 Poikilocytosis LM Ql (Bld) RARE [facility] Work Phone: Hypochromatic red blood cell detectionon 05-18-2022 Hypochromia Ql (Bld) RARE [facility] Work Phone: Ketones Test strip Ql (U)on 05-18-2022 Ketones Ql (U) 5 mg/dl Negative [facility] Work Phone: Laboratory - Chemistry and C hemistry - challengeon 05-18-2022 CO2 [Moles/Vol] 29.0 mmol/L 21.0-32.0 [facility] Work Phone: [phone] Urea nitrogen/Creatinine [Mass ratio] 20.5 mg/mg 10-20 [facility] Work Phone: [phone] Mucus LM Ql (Urine sed)on Mucus Ql (Urine sed) 0 SEEN /hpf [facility] Work Phone: [phone] Nitrite Test strip Ql (U)on 05-18-2022 Nitrite Ql (U) Negative Negative [facility] Work Phone: No Panel Informationon 05-18 Estimated Creatinine Clearance Calc 104.72 ml/min [facility] Work Phone: Estimated GFR (MDRD) Amer 152 mL/min >60 [facility] Work Phone: Comment on above: GFR Calc Estimated GFR (MDRD) Non-Af Amer 126 mL/min >60 [facility] Work Phone: Comment on above: Non- GFR Calc Ovalocyte detectionon 2021 Ovalocytes LM Ql (Bld) RARE [facility] Work Phone: Protein Test strip Ql (U)on 05-18-2022 Protein Ql (U) 15 mg/dl Negative [facility] Work Phone: Review by pathologiston Pathologist review Reji (Unsp spec) [Interp] May foll [facility] Work Phone: [phone] Serum or plasma calcium tonio urement (mass/volume)on 05-18-2022 Calcium [Mass/Vol] 8.8 mg/dL 8.5-10.1 [facility] Work Phone: [phone] Serum or plasma creatinine m easurement (mass/volume)on 05-18-2022 Creatinine [Mass/Vol] 0.68 mg/dL 0.70-1.30 [facility] Work Phone: [phone] Comment on above: The validity of the calculated GFR & GFRAA in patients over 70 years has not been determined. Clinical correlation is essential. Serum or plasma urea nitroge n measurement (mass/volume)on 05-18-2022 Urea nitrogen [Mass/Vol] 14 mg/dL 7-18 [facility] Work Phone: [phone] Squamous epithelial cells de tection in urine sediment by light microscopyon 05-18-2022 Epithelial cells.squamous LM Ql (Urine sed) 0 SEEN /hpf 0-5 [facility] Work Phone: [phone] Thin prep Papanicolaou smear with manual screeningon 05-18-2022 Thin prep Papanicolaou smear with manual screening 4 5-15 [facility] Work Phone: [phone] Urine blood detectionon RBC Ql (U) 10 /ul Negative [facility] Work Phone: [phone] RBC Ql (U) 0-5 SEEN /hpf 0-5 [facility] Work Phone: [phone] Urine clarityon 05-18-2022 Clarity (U) Clear Clear [facility] Work Phone: [phone] Urine color determinationon 05-18-2022 Color (U) Yellow Yellow [facility] Work Phone: [phone] Urine glucose detectionon Glucose Ql (U) Normal mg/dl Normal [facility] Work Phone: [phone] Urine leukocyte esterase det ection by dipstickon 05-18-2022 Leukocyte esterase Test strip Ql (U) 100 /ul Negative [facility] Work Phone: [phone] Urine pHon 05-18-2022 pH (U) 6.0 [pH] 5.0 - 8.0 [facility] Work Phone: [phone] Urine sediment bacteria coun t by microscopy (number/high power field)on 05-18-2022 Bacteria LM.HPF (Urine sed) [#/Area] RARE /hpf None Seen [facility] Work Phone: [phone] Urine specific gravity measu rementon 05-18-2022 Specific gravity (U) [Rel density] 1.015 1.002-1.030 [facility] Work Phone: Urobilinogen Auto test strip Ql (U)on 05-18-2022 Urobilinogen Ql (U) Normal mg/dl Normal [facility] Work Phone: Absolute lymphocyte counton 05-17-2022 Lymphocytes Auto (Unsp spec) [#/Vol] 0.78 10*3/uL 0.83-4.51 [facility] Work Phone: Basophil percentageon 2021 Ammonia (P) [Moles/Vol] 27.0 umol/L 11-32 [facility] Work Phone: Basophils/100 WBC (Bld) 0.1 % 0-1 [facility] Work Phone: Bilirubin [Mass/Vol] 0.50 mg/dL 0.20-1.00 [facility] Work Phone: Comment on above: For patients on eltr ombopag therapy, use of Dimension Leander TBIL is not recommended. Chloride [Moles/Vol] 99 mmol/L 98-107 [facility] Work Phone: Eosinophils/100 WBC (Bld) 0.0 % 0-5 [facility] Work Phone: Glucose [Mass/Vol] 132 mg/dL 74-106 [facility] Work Phone: Comment on above: Fasting Glucose resu lt greater than or equal to 126 mg/dL suggests DIABETES MELLITUS per A.D.A. criteria. Lactate [Moles/Vol] 1.6 mmol/L 0.4-2.0 [facility] Work Phone: Neutrophils (Bld) [#/Vol] 16.7 10*3/uL 2.0-7.7 [facility] Work Phone: Neutrophils/100 WBC (Bld) 88.0 % 47-70 [facility] Work Phone: Potassium [Moles/Vol] 4.1 mmol/L 3.5-5.1 [facility] Work Phone: Protein [Mass/Vol] 7.2 g/dL 6.4-8.2 [facility] Work Phone: Sodium [Moles/Vol] 131 mmol/L 136-145 [facility] Work Phone: [phone] WBC (Bld) [#/Vol] 19.0 10*3/uL 4.4-11.0 [facility] Work Phone: Blood erythrocytes count (nu mber/volume)on 05-17-2022 RBC (Bld) [#/Vol] 4.84 10*6/uL 4.6-6.2 [facility] Work Phone: Blood hemoglobin measurement (mass/volume)on 05-17-2022 Hemoglobin (Bld) [Mass/Vol] 12.6 g/dL 13.0-16.5 [facility] Work Phone: [phone] Blood lymphocytes/100 leukoc yteson 05-17-2022 Lymphocytes/100 WBC (Bld) 4.1 % 19-41 [facility] Work Phone: [phone] Blood monocytes/100 leukocyt eson 05-17-2022 Monocytes/100 WBC (Bld) 6.6 % 0-10 [facility] Work Phone: [phone] Blood platelet mean volumeon 05-17-2022 Platelet mean volume (Bld) [Entitic vol] 9.2 fL 6.2-12.0 [facility] Work Phone: [phone] Determination of erythrocyte mean corpuscular volume (MCV)on 05-17-2022 MCV (RBC) [Entitic vol] 81.0 fL 80-94 [facility] Work Phone: Hematocrit Auto (Bld) [Volum e fraction]on 05-17-2022 Hematocrit (Bld) [Volume fraction] 39.2 % 40-54 [facility] Work Phone: INR in Blood by Coagulation assayon 05-17-2022 INR Coag (Bld) [Relative time] 1.2 {INR} [facility] Work Phone: Laboratory - Chemistry and C hemistry - challengeon 05-17-2022 ALP [Catalytic activity/Vol] 81 U/L 45-117 [facility] Work Phone: ALT [Catalytic activity/Vol] 13 U/L 16-61 [facility] Work Phone: CK [Catalytic activity/Vol] 52 U/L 39-308 [facility] Work Phone: [phone] CO2 [Moles/Vol] 27.0 mmol/L 21.0-32.0 [facility] Work Phone: [phone] Globulin (S) [Mass/Vol] 4.2 g/dL 2.2-4.2 [facility] Work Phone: Urea nitrogen/Creatinine [Mass ratio] 18.7 mg/mg 10-20 [facility] Work Phone: Laboratory - Coagulationon 1 07-18-2021 aPTT Coag (Bld) [Time] 34.0 s 24.1-36.2 [facility] Work Phone: PT Coag (PPP) [Time] 15.1 s 11.7-14.9 [facility] Work Phone: Laboratory - Hematology and Cell countson 05-17-2022 Erythrocyte distribution width (RBC) [Entitic vol] 49.8 fL 35.1-43.9 [facility] Work Phone: [phone] Erythrocyte distribution width (RBC) [Ratio] 17.2 % 11.6-14.6 [facility] Work Phone: [phone] Immature granulocytes/100 WBC (Bld) 1.200 % 0.0-0.9 [facility] Work Phone: Comment on above: IG% - Immature Granu locytes (promyelocytes, myelocytes and metamyelocytes) > 1% indicates that a LEFT SHIFT is Present. MCH (RBC) [Entitic mass] 26.0 pg 27.0-32.0 [facility] Work Phone: Nucleated RBC/100 WBC (Bld) [Ratio] 0 % 0-5 [facility] Work Phone: MCHC Auto (RBC) [Mass/Vol]on 05-17-2022 MCHC (RBC) [Mass/Vol] 32.1 g/dL 32-36 [facility] Work Phone: No Panel Informationon 05-17 Valproic Acid (Depakene) Level 69 ug/mL 50-100 [facility] Work Phone: [phone] Estimated Creatinine Clearance Calc 79.37 ml/min [facility] Work Phone: [phone] Estimated GFR (MDRD) Amer 110 mL/min >60 [facility] Work Phone: [phone] Comment on above: GFR Calc Estimated GFR (MDRD) Non-Af Amer 91 mL/min >60 [facility] Work Phone: Comment on above: Non- GFR Calc Platelets bldon 05-17-2022 Platelets (Bld) [#/Vol] 349 10*3/uL 150-450 [facility] Work Phone: [phone] Serum or plasma albumin tonio urement (mass/volume)on 05-17-2022 Albumin [Mass/Vol] 3.0 g/dL 3.2-5.0 [facility] Work Phone: [phone] Serum or plasma albumin/glob ulin mass ratioon 05-17-2022 Albumin/Globulin [Mass ratio] 0.7 {ratio} 0.9-2.4 [facility] Work Phone: [phone] Serum or plasma calcium tonio urement (mass/volume)on 05-17-2022 Calcium [Mass/Vol] 9.0 mg/dL 8.5-10.1 [facility] Work Phone: [phone] Serum or plasma creatinine m easurement (mass/volume)on 05-17-2022 Creatinine [Mass/Vol] 0.91 mg/dL 0.70-1.30 [facility] Work Phone: Comment on above: The validity of the calculated GFR & GFRAA in patients over 70 years has not been determined. Clinical correlation is essential. Serum or plasma urea nitroge n measurement (mass/volume)on 05-17-2022 Urea nitrogen [Mass/Vol] 17 mg/dL 7-18 [facility] Work Phone: Thin prep Papanicolaou smear with manual screeningon 05-17-2022 Thin prep Papanicolaou smear with manual screening 7 U/L 15-37 [facility] Work Phone: Thin prep Papanicolaou smear with manual screening 5 5-15 [facility] Work Phone: XR CHEST 2V FRONTAL/LATon [facility] XR Chest PA and Lateralon IMPRESSION: Inferior lingular airspace disease suggestive of an infiltrate. Stable blunting RIGHT costophrenic angle consistent with pleural thickening, lateral eventration or small effusion. Galley Hand: KEVEN Transcribe Date/Time: May 17 2022 12:08P Dictated by : INES MATTHEWS MD This examination was interpreted and the report reviewed and electronically signed by: INES MATTHEWS MD on May 17 2022 12:27PM [facility] DIVISION OF RADIOLOGY * * *Final Report* [...] soft tissues: Unremarkable. DIVISION OF RADIOLOGY Provider, Paulette Arsh Blanco - 05/17/2022 * * *Final Report* * [...] pleural thickening, lateral eventration or small effusion. Galley Hand: PSCB Transcribe Date/Time: May 17 2022 12:08P Dictated by : INES MATTHEWS MD This examination was interpreted and the report reviewed and electronically signed by: INES MATTHEWS MD on May 17 2022 12:27PM [facility] Radiology Study observation (narrative) [facility] XR Chest PA and LateralOrder ed By: [facility] Provider on 05-17-2022 [facility] Absolute lymphocyte counton 08-21-2021 Lymphocytes Auto (Unsp spec) [#/Vol] 0.86 10*3/uL 0.83-4.51 [facility] Work Phone: Basophil percentageon 2021 Basophils/100 WBC (Bld) 0.2 % 0-1 [facility] Work Phone: Chloride [Moles/Vol] 99 mmol/L 98-107 [facility] Work Phone: Eosinophils/100 WBC (Bld) 0.2 % 0-5 [facility] Work Phone: Glucose [Mass/Vol] 100 mg/dL 74-106 [facility] Work Phone: Comment on above: Fasting Glucose resu lt from 100 to 125 mg/dL suggests IMPAIRED HOMEOSTASIS per A.D.A. criteria. Neutrophils (Bld) [#/Vol] 3.2 10*3/uL 2.0-7.7 [facility] Work Phone: Neutrophils/100 WBC (Bld) 69.4 % 47-70 [facility] Work Phone: Potassium [Moles/Vol] 4.6 mmol/L 3.5-5.1 [facility] Work Phone: Sodium [Moles/Vol] 131 mmol/L 136-145 [facility] Work Phone: WBC (Bld) [#/Vol] 4.7 10*3/uL 4.4-11.0 [facility] Work Phone: [phone] Blood erythrocytes count (nu mber/volume)on 08-21-2021 RBC (Bld) [#/Vol] 5.13 10*6/uL 4.6-6.2 [facility] Work Phone: Blood hemoglobin measurement (mass/volume)on 08-21-2021 Hemoglobin (Bld) [Mass/Vol] 12.6 g/dL 13.0-16.5 [facility] Work Phone: Blood lymphocytes/100 leukoc yteson 08-21-2021 Lymphocytes/100 WBC (Bld) 18.4 % 19-41 [facility] Work Phone: Blood monocytes/100 leukocyt eson 08-21-2021 Monocytes/100 WBC (Bld) 11.6 % 0-10 [facility] Work Phone: Blood platelet mean volumeon 08-21-2021 Platelet mean volume (Bld) [Entitic vol] 8.5 fL 6.2-12.0 [facility] Work Phone: [phone] Determination of erythrocyte mean corpuscular volume (MCV)on 08-21-2021 MCV (RBC) [Entitic vol] 77.0 fL 80-94 [facility] Work Phone: [phone] Hematocrit Auto (Bld) [Volum e fraction]on 08-21-2021 Hematocrit (Bld) [Volume fraction] 39.5 % 40-54 [facility] Work Phone: [phone] Laboratory - Chemistry and C hemistry - challengeon 08-21-2021 CO2 [Moles/Vol] 28.0 mmol/L 21.0-32.0 [facility] Work Phone: [phone] Natriuretic peptide B (Bld) [Mass/Vol] 6.5 pg/mL 0-100 [facility] Work Phone: [phone] Urea nitrogen/Creatinine [Mass ratio] 11.6 mg/mg 10-20 [facility] Work Phone: [phone] Laboratory - Hematology and Cell countson 08-21-2021 Erythrocyte distribution width (RBC) [Entitic vol] 50.4 fL 35.1-43.9 [facility] Work Phone: [phone] Erythrocyte distribution width (RBC) [Ratio] 18.2 % 11.6-14.6 [facility] Work Phone: [phone] Immature granulocytes/100 WBC (Bld) 0.200 % 0.0-0.9 [facility] Work Phone: [phone] Comment on above: IG% - Immature Granu locytes (promyelocytes, myelocytes and metamyelocytes) > 1% indicates that a LEFT SHIFT is Present. MCH (RBC) [Entitic mass] 24.6 pg 27.0-32.0 [facility] Work Phone: [phone] Nucleated RBC/100 WBC (Bld) [Ratio] 0 % 0-5 [facility] Work Phone: [phone] MCHC Auto (RBC) [Mass/Vol]on 08-21-2021 MCHC (RBC) [Mass/Vol] 31.9 g/dL 32-36 [facility] Work Phone: [phone] Panel Informationon 08-21 Estimated Creatinine Clearance Calc 82.00 ml/min [facility] Work Phone: Estimated GFR (MDRD) Amer 105 mL/min >60 [facility] Work Phone: Comment on above: GFR Calc Estimated GFR (MDRD) Non-Af Amer 87 mL/min >60 [facility] Work Phone: Comment on above: Non- GFR Calc Troponin I High Sensitivity 6 pg/mL 3.0-78.0 [facility] Work Phone: Comment on above: Please Note: New Gary t Units and Gender Specific Reference Ranges. For more information see Policy Stat Procedure [place] High Sensitivity Troponin (TNIH) and attachments. Platelets bldon 08-21-2021 Platelets (Bld) [#/Vol] 286 10*3/uL 150-450 [facility] Work Phone: [phone] Serum or plasma calcium tonio urement (mass/volume)on 08-21-2021 Calcium [Mass/Vol] 8.9 mg/dL 8.5-10.1 [facility] Work Phone: [phone] Serum or plasma creatinine m easurement (mass/volume)on 08-21-2021 Creatinine [Mass/Vol] 0.95 mg/dL 0.70-1.30 [facility] Work Phone: Comment on above: The validity of the calculated GFR & GFRAA in patients over 70 years has not been determined. Clinical correlation is essential. Serum or plasma urea nitroge n measurement (mass/volume)on 08-21-2021 Urea nitrogen [Mass/Vol] 11 mg/dL 7-18 [facility] Work Phone: [phone] Thin prep Papanicolaou smear with manual screeningon 08-21-2021 Thin prep Papanicolaou smear with manual screening 4 5-15 [facility] Work Phone: [phone] COVID-19 virus antigen assay SARS-CoV-2 (COVID-19) Ag IA.rapid Ql (Resp) [facility] Work Phone: [phone] No Panel Information Influenza Types A,B Direct FA (PARAG) [facility] Work Phone: [phone] Streptococcus pneumoniae Antigen (M [facility] Work Phone: Urine Legionella pneumophila antigen detection L. pneumophila Ag Ql (U) [facility] Work Phone: Vital Signs Date Time Vital Sign Value Performing Clinician Faci lity 01-21-2025 10:26-0400 Body temperature 97.4 [degF] Dr. Charan Arndt MD Work Phone: [phone] [place] [address] 01-21-2025 10:26-0400 Diastolic blood pressure 88 mm[Hg] Dr. Charan Arndt MD Work Phone: [phone] [place] [address] 01-21-2025 10:26-0400 Heart rate 78 /min Dr. Charan Arndt MD Work Phone: [phone] [place] [address] 01-21-2025 10:26-0400 Respiratory rate 18 /min Dr. Charan Arndt MD Work Phone: [phone] [place] [address] 01-21-2025 10:26-0400 SaO2% (BldA) [Mass fraction] 94 % Dr. Charan Arndt MD Work Phone: [phone] [place] [address] 01-21-2025 10:26-0400 Systolic blood pressure 130 mm[Hg] Dr. Charan Arndt MD Work Phone: [phone] [place] [address] 01-21-2025 08:56-0400 Body height 172.[address] Charan Arndt MD Work Phone: [phone] [place] [address] 01-21-2025 08:56-0400 Body mass index (BMI) [Ratio] 18.2 kg/m2 Dr. Charan Arndt MD Work Phone: [phone] [place] [address] 01-21-2025 08:56-0400 Body weight 54.[address] Charan Arndt MD Work Phone: [phone] [place] [address] 11-26-2024 09:21-0400 Body mass index (BMI) [Ratio] 18.1 kg/m2 Dr. Charan Arndt MD Work Phone: [phone] [place] [address] 11-26-2024 09:21-0400 Body temperature 97.3 [degF] Dr. Charan Arndt MD Work Phone: [facility] 11-26-2024 09:21-0400 Body weight 53.[address] Charan Arndt MD Work Phone: [facility] 11-26-2024 09:21-0400 Diastolic blood pressure 81 mm[Hg] Dr. Charan Arndt MD Work Phone: [phone] [place] [address] 11-26-2024 09:21-0400 Heart rate 92 /min Dr. Charan Arndt MD Work Phone: [phone] [place] [address] 11-26-2024 09:21-0400 Respiratory rate 20 /min Dr. Charan Arndt MD Work Phone: [phone] [place] [address] 11-26-2024 09:21-0400 SaO2% (BldA) [Mass fraction] 98 % Dr. Charan Arndt MD Work Phone: [phone] [place] [address] 11-26-2024 09:21-0400 Systolic blood pressure 126 mm[Hg] Dr. Charan Arndt MD Work Phone: [phone] [place] [address] 09-20-2024 10:32-0400 Body mass index (BMI) [Ratio] 19.47 kg/m2 Vinita Lilly APRN.[employer]IL [employer]ANT OPERATOR Work Phone: [facility] 09-20-2024 10:32-0400 Body temperature 97.11 [degF] Vinita Lilly APRN.[employer]IL PLANT OPERATOR Work Phone: [facility] 09-20-2024 10:32-0400 Body weight 56.4 kg Vinita Lilly APRN.[employer]IL PLANT OPERATOR Work Phone: [facility] 09-20-2024 10:32-0400 Diastolic blood pressure 62 mm[Hg] Vinita Lilly APRN.[employer]IL PLANT OPERATOR Work Phone: [facility] 09-20-2024 10:32-0400 Heart rate 70 /min Vinita Lilly APRN.[employer] PLANT OPERATOR Work Phone: [facility] 09-20-2024 10:32-0400 Respiratory rate 16 /min Vinita King NAZANIN.[employer]ANT OPERATOR Work Phone: [facility] 09-20-2024 10:32-0400 SaO2% (BldA) [Mass fraction] 96 % Vinita Lilly [employer]OM[employer] MATE.[employer]ANT OPERATOR Work Phone: [facility] 09-20-2024 10:32-0400 Systolic blood pressure 106 mm[Hg] Vinita King NAZANIN.[employer]IL PLANT OPERATOR Work Phone: [facility] 08-28-2024 12:00-0400 Body temperature 97.5 [degF] Dr. Charan Arndt MD Work Phone: [phone] [place] [address] 08-28-2024 12:00-0400 Diastolic blood pressure 87 mm[Hg] Dr. Charan Arndt MD Work Phone: [phone] [place] [address] 08-28-2024 12:00-0400 Heart rate 77 /min Dr. Charan Arndt MD Work Phone: [phone] [place] [address] 08-28-2024 12:00-0400 Respiratory rate 16 /min Dr. Charan Arndt MD Work Phone: [phone] [place] [address] 08-28-2024 12:00-0400 SaO2% (BldA) [Mass fraction] 99 % Dr. Charan Arndt MD Work Phone: [phone] [place] [address] 08-28-2024 12:00-0400 Systolic blood pressure 137 mm[Hg] Dr. Charan Arndt MD Work Phone: [phone] [place] [address] 08-28-2024 09:53-0400 Body height 172.[address] Charan Arndt MD Work Phone: [phone] [place] [address] 08-28-2024 09:53-0400 Body weight 55.[address] Charan Arndt MD Work Phone: [phone] [place] [address] 08-28-2024 05:51-0400 Body mass index (BMI) [Ratio] 18.3 kg/m2 Dr. Charan Arndt MD Work Phone: [phone] [place] [address] 08-28-2024 04:00-0400 Inhaled oxygen flow rate 2 L/min Dr. Charan Arndt MD Work Phone: [phone] [place] [address] 08-28-2024 00:00-0400 Inhaled oxygen concentration 99 % Dr. Charan Arndt MD Work Phone: [phone] [place] [address] 07-27-2024 08:12-0500 Body mass index (BMI) [Ratio] 19.1 kg/m2 Dr. Charan Arndt MD Work Phone: [phone] [place] [address] 07-27-2024 08:12-0500 Body temperature 97.4 [degF] Dr. Charan Arndt MD Work Phone: [phone] [place] [address] 07-27-2024 08:12-0500 Body weight 57.[address] Charan Arndt MD Work Phone: [phone] [place] [address] 07-27-2024 08:12-0500 Diastolic blood pressure 79 mm[Hg] Dr. Charan Arndt MD Work Phone: [phone])483-773369 [place] [address] 07-27-2024 08:12-0500 Heart rate 87 /min Dr. Charan Arndt MD Work Phone: [phone] [place] [address] 07-27-2024 08:12-0500 Respiratory rate 18 /min Dr. Charan Arndt MD Work Phone: [phone] [place] [address] 07-27-2024 08:12-0500 SaO2% (BldA) [Mass fraction] 99 % Dr. Charan Arndt MD Work Phone: [phone] [place] [address] 07-27-2024 08:12-0500 Systolic blood pressure 126 mm[Hg] Dr. Charan Arndt MD Work Phone: [phone] [place] [address] 07-08-2024 15:08-0500 Body mass index (BMI) [Ratio] 20.72 kg/m2 Jacky Ferrera APRN.[employer]IL PLANT OPERATOR Work Phone: [facility] 07-08-2024 15:08-0500 Body temperature 98.4 [degF] Jacky Ferrera APRN.[employer]IL PLANT OPERATOR Work Phone: [facility] 07-08-2024 15:08-0500 Body weight 60 kg [facility] [employer] OPERATOR Work Phone: [facility] 07-08-2024 15:08-0500 Diastolic blood pressure 80 mm[Hg] [facility] [employer] OPERATOR Work Phone: [facility] 07-08-2024 15:08-0500 Heart rate 93 /min [facility] [employer] OPERATOR Work Phone: [facility] 07-08-2024 15:08-0500 Respiratory rate 20 /min [facility] [employer]ANT OPERATOR Work Phone: [facility] 07-08-2024 15:08-0500 SaO2% (BldA) [Mass fraction] 98 % [facility] [employer] OPERATOR Work Phone: [facility] 07-08-2024 15:08-0500 Systolic blood pressure 131 mm[Hg] [facility] [employer] OPERATOR Work Phone: [facility] 07-02-2024 08:40-0500 Body weight 54.[address] Charan Arndt MD Work Phone: [facility] 07-02-2024 08:40-0500 Heart rate 88 /min Dr. Charan Arndt MD Work Phone: [facility] 07-02-2024 08:40-0500 Inhaled oxygen flow rate 2 L/min Dr. Charan Arndt MD Work Phone: [facility] 07-02-2024 08:40-0500 SaO2% (BldA) [Mass fraction] 96 % Dr. Charan Arndt MD Work Phone: [facility] 06-14-2024 07:57-0500 Body mass index (BMI) [Ratio] 18.4 kg/m2 Dr. Charan Arndt MD Work Phone: [facility] 06-14-2024 07:57-0500 Body temperature 97.3 [degF] Dr. Charan Arndt MD Work Phone: 6(063)187-794969 [place] [address] 06-14-2024 07:57-0500 Body weight 55.[address] Charan Arndt MD Work Phone: 7(444)655-416269 [place] [address] 06-14-2024 07:57-0500 Diastolic blood pressure 74 mm[Hg] Dr. Charan Arndt MD Work Phone: 3(272)173-580269 [place] [address] 06-14-2024 07:57-0500 Heart rate 86 /min Dr. Charan Arndt MD Work Phone: 8(224)821-680569 [place] [address] 06-14-2024 07:57-0500 Respiratory rate 18 /min Dr. Charan Arndt MD Work Phone: 2(254)971-769569 [place] [address] 06-14-2024 07:57-0500 SaO2% (BldA) [Mass fraction] 94 % Dr. Charan Arndt MD Work Phone: 3(822)050-115069 [place] [address] 06-14-2024 07:57-0500 Systolic blood pressure 114 mm[Hg] Dr. Charan Arndt MD Work Phone: 6(936)341-403069 [place] [address] 05-27-2024 13:36-0500 Body mass index (BMI) [Ratio] 18.5 kg/m2 Dr. Charan Arndt MD Work Phone: 1(639)266-218369 [place] [address] 05-27-2024 13:36-0500 Body weight 55.[address] Charan Arndt MD Work Phone: 0(945)557-757469 [place] [address] 05-19-2024 16:46-0500 Body mass index (BMI) [Ratio] 19.68 kg/m2 Josefina Julien-Denis [employer]PEDOM[employer]S MATE.[employer]IL PLANT OPERATOR Work Phone: 1(721)593-657185 [place] [address] 05-19-2024 16:46-0500 Body temperature 97.81 [degF] Josefina Julien-Denis [employer] MATE.OIL PLANT OPERATOR Work Phone: 3(835)430-754085 [place] [address] 05-19-2024 16:46-0500 Body weight 57 kg Josefina Julien-Denis [employer]PEDOM[employer] MATE.OIL PLANT OPERATOR Work Phone: 8(431)393-619485 [place] [address] 05-19-2024 16:46-0500 Diastolic blood pressure 80 mm[Hg] Josefina Praisler-Wood [employer] MATE.OIL PLANT OPERATOR Work Phone: [facility] 05-19-2024 16:46-0500 Heart rate 96 /min Josefina Praisler-Wood [employer]PEDOM[employer]S MATE.OIL PLANT OPERATOR Work Phone: [facility] 05-19-2024 16:46-0500 Respiratory rate 18 /min Josefina Praisler-Wood [employer]PEDOMAN[employer]S MATE.OIL PLANT OPERATOR Work Phone: [facility] 05-19-2024 16:46-0500 SaO2% (BldA) [Mass fraction] 96 % Josefina Praisler-Wood [employer]PEDOM[employer]S MATE.OIL PLANT OPERATOR Work Phone: [facility] 05-19-2024 16:46-0500 Systolic blood pressure 142 mm[Hg] Josefina Praisler-Wood [employer]PEDOM[employer]S MATE.OIL PLANT OPERATOR Work Phone: [facility] 02-22-2024 14:31-0400 Body mass index (BMI) [Ratio] 18.3 kg/m2 Xochilt Keron [employer]OM[employer]S MATE.OIL PLANT OPERATOR Work Phone: [facility] 02-22-2024 14:31-0400 Body temperature 97 [degF] Xochilt Keron [employer]PEDOM[employer]S MATE.OIL PLANT OPERATOR Work Phone: [facility] 02-22-2024 14:31-0400 Body weight 53 kg Xochilt Keron [employer]PEDOM[employer]S MATE.OIL PLANT OPERATOR Work Phone: [facility] 02-22-2024 14:31-0400 Diastolic blood pressure 74 mm[Hg] Xochilt Keron [employer]PEDOMAN'S MATE.OIL PLANT OPERATOR Work Phone: [facility] 02-22-2024 14:31-0400 Heart rate 93 /min Xochilt Keron [employer]PEDOMAN[employer]S MATE.OIL PLANT OPERATOR Work Phone: [facility] 02-22-2024 14:31-0400 Respiratory rate 20 /min Xochilt Keron [employer]PEDOMAN'S MATE.OIL PLANT OPERATOR Work Phone: [facility] 02-22-2024 14:31-0400 SaO2% (BldA) [Mass fraction] 96 % Xochilt Keron [employer]PEDOMAN[employer]S MATE.OIL PLANT OPERATOR Work Phone: [facility] 02-22-2024 14:31-0400 Systolic blood pressure 111 mm[Hg] Xochilt Keron [employer]PEDOMAN[employer]S MATE.OIL PLANT OPERATOR Work Phone: [facility] 02-03-2024 14:13-0400 Body mass index (BMI) [Ratio] 18.99 kg/m2 Dotty Brigotti [employer] MATE.[employer]IL PLANT OPERATOR Work Phone: [facility] 02-03-2024 14:13-0400 Body temperature 97.3 [degF] Dotty Brigotti [employer] MATE.OIL PLANT OPERATOR Work Phone: [facility] 02-03-2024 14:13-0400 Body weight 55 kg Dotty Brigotti [employer]OM[employer]S MATE.OIL PLANT OPERATOR Work Phone: [facility] 02-03-2024 14:13-0400 Diastolic blood pressure 87 mm[Hg] Dotty Brigotti [employer]OM[employer]'S MATE.OIL PLANT OPERATOR Work Phone: [facility] 02-03-2024 14:13-0400 Heart rate 95 /min Dotty Brigotti [employer]PEDOM[employer]S MATE.OIL PLANT OPERATOR Work Phone: [facility] 02-03-2024 14:13-0400 Respiratory rate 22 /min Dotty Brigotti [employer]PEDOMAN'S MATE.OIL PLANT OPERATOR Work Phone: [facility] 02-03-2024 14:13-0400 SaO2% (BldA) [Mass fraction] 98 % Dotty Brigotti [employer]S MATE.OIL PLANT OPERATOR Work Phone: [facility] 02-03-2024 14:13-0400 Systolic blood pressure 131 mm[Hg] Dotty Brigotti [employer]PEDOM[employer]S MATE.OIL PLANT OPERATOR Work Phone: [facility] 10-21-2023 14:56-0400 Body temperature 97.7 [degF] Dr. Charan Arndt Work Phone: [facility] 10-21-2023 14:56-0400 Diastolic blood pressure 97 mm[Hg] Dr. Charan Arndt Work Phone: [facility] 10-21-2023 14:56-0400 Heart rate 84 /min Dr. Charan Arndt Work Phone: [facility] 10-21-2023 14:56-0400 Respiratory rate 22 /min Dr. Charan Arndt Work Phone: 6(343)370-044969 [place] [address] 10-21-2023 14:56-0400 SaO2% (BldA) [Mass fraction] 95 % Dr. Charan Arndt Work Phone: 7(422)139-553047 [place] [address] 10-21-2023 14:56-0400 Systolic blood pressure 131 mm[Hg] Dr. Charan Arndt Work Phone: 6(572)713-939769 [place] [address] 10-21-2023 10:21-0400 Body height 172.[address] Charan Arndt Work Phone: 4(987)262-624869 [place] [address] 10-21-2023 10:21-0400 Body mass index (BMI) [Ratio] 19.4 kg/m2 Dr. Charan Arndt Work Phone: 5(952)592-536347 [place] [address] 10-21-2023 10:21-0400 Body weight [address] Charan Arndt Work Phone: 5(689)006-162469 [place] [address] 10-15-2023 10:00-0400 Body mass index (BMI) [Ratio] 20.05 kg/m2 Alycia Arnold [employer] M[employer] PLANT OPERATOR Work Phone: [facility] 10-15-2023 10:00-0400 Body weight 58.06 kg Alycia ShahidClayton [employer] MATE[employer]IL PLANT OPERATOR Work Phone: [facility] 10-15-2023 10:00-0400 Diastolic blood pressure 86 mm[Hg] Alycia ShahidClayton [employer] MATE[employer]IL PLANT OPERATOR Work Phone: [facility] 10-15-2023 10:00-0400 Heart rate 75 /min Alycia ShahidClayton [employer] MATE[employer]IL PLANT OPERATOR Work Phone: [facility] 10-15-2023 10:00-0400 Respiratory rate 16 /min Alycia Arnold [employer] MATE[employer]IL PLANT OPERATOR Work Phone: [facility] 10-15-2023 10:00-0400 SaO2% (BldA) [Mass fraction] 98 % Alycia Arnold [employer] MATE[employer]IL PLANT OPERATOR Work Phone: [facility] 10-15-2023 10:00-0400 Systolic blood pressure 126 mm[Hg] Alycia Arnold [employer] MATE[employer]IL PLANT OPERATOR Work Phone: [facility] 10-06-2023 12:51-0400 Body height 172.[address] Charan Arndt Work Phone: 1(507)478-340947 [place] [address] 10-06-2023 12:51-0400 Body weight 61.[address] Charan Arndt Work Phone: 9(323)988-104247 [place] [address] 10-06-2023 12:51-0400 Heart rate 90 /min Dr. Charan Arndt Work Phone: 0(392)160-381947 [place] [address] 10-06-2023 12:51-0400 SaO2% (BldA) [Mass fraction] 96 % Dr. Charan Arndt Work Phone: 3(898)026-968769 [place] [address] 09-24-2023 08:14-0400 Body height 172.[address] Charan Arndt Work Phone: 2(568)656-271169 [place] [address] 09-24-2023 08:14-0400 Body mass index (BMI) [Ratio] 19.9 kg/m2 Dr. Charan Arndt Work Phone: 0(466)912-846869 [place] [address] 09-24-2023 08:14-0400 Body temperature 98.4 [degF] Dr. Charan Arndt Work Phone: 0(373)366-886569 [place] [address] 09-24-2023 08:14-0400 Body weight 59.[address] Charan Arndt Work Phone: 7(795)485-589169 [place] [address] 09-24-2023 08:14-0400 Diastolic blood pressure 90 mm[Hg] Dr. Charan Arndt Work Phone: 4(773)186-714247 [place] [address] 09-24-2023 08:14-0400 Heart rate 73 /min Dr. Charan Arndt Work Phone: [facility] 09-24-2023 08:14-0400 Respiratory rate 18 /min Dr. Charan Arndt Work Phone: [facility] 09-24-2023 08:14-0400 SaO2% (BldA) [Mass fraction] 96 % Dr. Chaarn Arndt Work Phone: [facility] 09-24-2023 08:14-0400 Systolic blood pressure 130 mm[Hg] Dr. Charan Arndt Work Phone: [facility] 04-28-2023 10:22-0500 Body height 172.72 cm [facility] 04-28-2023 10:22-0500 Body mass index (BMI) [Ratio] 19.7 kg/m2 [facility] 04-28-2023 10:22-0500 Body temperature 97.6 [degF] [facility] 04-28-2023 10:22-0500 Body weight 58.74 kg [facility] 04-28-2023 10:22-0500 Diastolic blood pressure 80 mm[Hg] [facility] 04-28-2023 10:22-0500 Heart rate 98 /min [facility] 04-28-2023 10:22-0500 Respiratory rate 18 /min [facility] 04-28-2023 10:22-0500 SaO2% (BldA) [Mass fraction] 98 % [facility] 04-28-2023 10:22-0500 Systolic blood pressure 114 mm[Hg] [facility] 04-07-2023 08:29-0400 Body height 170.2 cm Serenealesia Hidalgobow PA-C Work Phone: [facility] 04-07-2023 08:29-0400 Body temperature 97.2 [degF] Serenealesia Hidalgobow PA-C Work Phone: [facility] 04-07-2023 08:29-0400 Body weight 60.33 kg Serenealesia Hidalgobow PA-C Work Phone: [facility] 04-07-2023 08:29-0400 Diastolic blood pressure 62 mm[Hg] Serene Denbow PA-C Work Phone: [facility] 04-07-2023 08:29-0400 Heart rate 80 /min Serene Denbow PA-C Work Phone: [facility] 04-07-2023 08:29-0400 Respiratory rate 12 /min Serene Denbow PA-C Work Phone: [facility] 04-07-2023 08:29-0400 Systolic blood pressure 120 mm[Hg] Serene Denbow PA-C Work Phone: [facility] 04-03-2023 12:34-0400 Body temperature 97.7 [degF] Germania Goldberg APRN.OIL PLANT OPERATOR Work Phone: [facility] 04-03-2023 12:34-0400 Body weight 57.24 kg Germania Goldberg APRN.OIL PLANT OPERATOR Work Phone: [facility] 04-03-2023 12:34-0400 Diastolic blood pressure 79 mm[Hg] Germania Goldberg APRN.OIL PLANT OPERATOR Work Phone: [facility] 04-03-2023 12:34-0400 Heart rate 81 /min Germania Goldberg APRN.OIL PLANT OPERATOR Work Phone: [facility] 04-03-2023 12:34-0400 Respiratory rate 18 /min Germania Goldberg APRN.OIL PLANT OPERATOR Work Phone: [facility] 04-03-2023 12:34-0400 SaO2% (BldA) [Mass fraction] 96 % Germania Goldebrg APRN.OIL PLANT OPERATOR Work Phone: [facility] 04-03-2023 12:34-0400 Systolic blood pressure 122 mm[Hg] Germania Goldberg APRN.OIL PLANT OPERATOR Work Phone: [facility] 03-05-2023 11:03-0400 Body temperature 97.3 [degF] Malathi Skinner APRN.OIL PLANT OPERATOR Work Phone: [facility] 03-05-2023 11:03-0400 Body weight 62.14 kg Malathi Skinner [employer] MATE.[employer]IL PLANT OPERATOR Work Phone: [facility] 03-05-2023 11:03-0400 Diastolic blood pressure 82 mm[Hg] Malathi Skinner [employer]S MATE.OIL PLANT OPERATOR Work Phone: [facility] 03-05-2023 11:03-0400 Heart rate 89 /min Malathi Skinner [employer]PED[employer]'S MATE.OIL PLANT OPERATOR Work Phone: [facility] 03-05-2023 11:03-0400 Respiratory rate 20 /min Malathi Skinner [employer]PEDOM[employer]'S MATE.OIL PLANT OPERATOR Work Phone: [facility] 03-05-2023 11:03-0400 SaO2% (BldA) [Mass fraction] 97 % Malathi Skinner [employer]S MATE.OIL PLANT OPERATOR Work Phone: [facility] 03-05-2023 11:03-0400 Systolic blood pressure 124 mm[Hg] Malathi Skinner [employer]'S MATE.OIL PLANT OPERATOR Work Phone: [facility] 09-10-2022 06:40-0400 Body height 172.[address] Charna Arndt Work Phone: [facility] 09-10-2022 06:40-0400 Body mass index (BMI) [Ratio] 22.8 kg/m2 Dr. Charan Arndt Work Phone: [facility] 09-10-2022 06:40-0400 Body temperature 97.6 [degF] Dr. Charan Arndt Work Phone: [facility] 09-10-2022 06:40-0400 Body weight 68.[address] Charan Arndt Work Phone: [facility] 09-10-2022 06:40-0400 Diastolic blood pressure 90 mm[Hg] Dr. Charan Arndt Work Phone: [facility] 09-10-2022 06:40-0400 Heart rate 90 /min Dr. Charan Arndt Work Phone: [facility] 09-10-2022 06:40-0400 Respiratory rate 17 /min Dr. Charan Arndt Work Phone: [facility] 09-10-2022 06:40-0400 SaO2% (BldA) [Mass fraction] 98 % Dr. Charan Arndt Work Phone: [facility] 09-10-2022 06:40-0400 Systolic blood pressure 134 mm[Hg] Dr. Charan Arndt Work Phone: [facility] 05-19-2022 11:44-0500 Body temperature 98 [degF] Dr. Charan Arndt Work Phone: [facility] Work Phone: 05-19-2022 11:44-0500 Diastolic blood pressure 76 mm[Hg] Dr. Charan Arndt Work Phone: [facility] Work Phone: 05-19-2022 11:44-0500 Heart rate 88 /min Dr. Charan Arndt Work Phone: [facility] Work Phone: 05-19-2022 11:44-0500 Respiratory rate 18 /min Dr. Charan Arndt Work Phone: [facility] Work Phone: 05-19-2022 11:44-0500 SaO2% (BldA) [Mass fraction] 93 % Dr. Charan Arndt Work Phone: [facility] Work Phone: 05-19-2022 11:44-0500 Systolic blood pressure 114 mm[Hg] Dr. Charan Arndt Work Phone: [facility] Work Phone: 05-19-2022 09:06-0500 Inhaled oxygen flow rate 0 L/min Dr. Charan Arndt Work Phone: [facility] Work Phone: 05-19-2022 03:00-0500 Inhaled oxygen concentration 93 % Dr. Charan Arndt Work Phone: [facility] Work Phone: 05-18-2022 12:17-0500 Body height 172.[address] Charan Arndt Work Phone: [facility] Work Phone: 05-18-2022 12:17-0500 Body weight 63.[address] Charan Arndt Work Phone: [facility] Work Phone: 05-18-2022 03:16-0500 Body mass index (BMI) [Ratio] 21.2 kg/m2 Dr. Charan Arndt Work Phone: [facility] Work Phone: 05-18-2022 03:03-0500 Diastolic blood pressure 83 mm[Hg] [facility] Work Phone: 05-18-2022 03:03-0500 Systolic blood pressure 116 mm[Hg] [facility] Work Phone: 05-18-2022 00:14-0500 Body temperature 97.8 [degF] [facility] Work Phone: 05-18-2022 00:14-0500 Heart rate 98 /min [facility] Work Phone: 05-18-2022 00:14-0500 Respiratory rate 17 /min [facility] Work Phone: 05-18-2022 00:14-0500 SaO2% (BldA) [Mass fraction] 99 % [facility] Work Phone: 05-17-2022 23:36-0500 Inhaled oxygen flow rate 1 L/min [facility] Work Phone: 05-17-2022 19:34-0500 Body height 172.72 cm [facility] Work Phone: 05-17-2022 19:34-0500 Body mass index (BMI) [Ratio] 21.5 kg/m2 [facility] Work Phone: 05-17-2022 19:34-0500 Body weight 64.2 kg [facility] Work Phone: 05-17-2022 11:34-0500 Body temperature 101.3 [degF] Elida Athy PA-C Work Phone: [facility] 05-17-2022 11:34-0500 Body weight 65.14 kg Elida Athy PA-C Work Phone: [facility] 05-17-2022 11:34-0500 Diastolic blood pressure 76 mm[Hg] Elida Athy PA-C Work Phone: [facility] 05-17-2022 11:34-0500 Heart rate 118 /min Elida Athy PA-C Work Phone: [facility] 05-17-2022 11:34-0500 Respiratory rate 21 /min Elida Athy PA-C Work Phone: [facility] 05-17-2022 11:34-0500 SaO2% (BldA) [Mass fraction] 94 % Elida Athy PA-C Work Phone: [facility] 05-17-2022 11:34-0500 Systolic blood pressure 128 mm[Hg] Elida Athy PA-C Work Phone: [facility] 04-15-2022 11:07-0400 Body temperature 97.9 [degF] Xochilt Keron [employer]S MATE.OIL PLANT OPERATOR Work Phone: [facility] 04-15-2022 11:07-0400 Body weight 65.68 kg Xochilt Keron [employer]S MATE.OIL PLANT OPERATOR Work Phone: [facility] 04-15-2022 11:07-0400 Diastolic blood pressure 84 mm[Hg] Xochilt Keron [employer]PEDOM[employer]'S MATE.OIL PLANT OPERATOR Work Phone: [facility] 04-15-2022 11:07-0400 Heart rate 100 /min Xochilt Keron [employer]PEDOM[employer]'S MATE.OIL PLANT OPERATOR Work Phone: [facility] 04-15-2022 11:07-0400 Respiratory rate 20 /min Xochilt Cabrales [employer]OM[employer]S MATE.OIL PLANT OPERATOR Work Phone: [facility] 04-15-2022 11:07-0400 SaO2% (BldA) [Mass fraction] 93 % Xochilt Cabrales [employer]PEDOM[employer]'S MATE.OIL PLANT OPERATOR Work Phone: [facility] 04-15-2022 11:07-0400 Systolic blood pressure 126 mm[Hg] Xochilt Keron [employer]PEDOM[employer]S MATE.[employer]IL PLANT OPERATOR Work Phone: [facility] 03-10-2022 00:54-0400 Respiratory rate 16 /min [facility] Work Phone: 03-09-2022 23:30-0400 Body height 172.72 cm [facility] Work Phone: 03-09-2022 23:30-0400 Body mass index (BMI) [Ratio] 24.3 kg/m2 [facility] Work Phone: 03-09-2022 23:30-0400 Body temperature 97.2 [degF] [facility] Work Phone: 03-09-2022 23:30-0400 Body weight 72.57 kg [facility] Work Phone: 03-09-2022 23:30-0400 Diastolic blood pressure 101 mm[Hg] [facility] Work Phone: 03-09-2022 23:30-0400 Heart rate 95 /min [facility] Work Phone: 03-09-2022 23:30-0400 SaO2% (BldA) [Mass fraction] 97 % [facility] Work Phone: 03-09-2022 23:30-0400 Systolic blood pressure 195 mm[Hg] [facility] Work Phone: 09-25-2021 09:38-0400 Body height 172.[address] Charan Arndt Work Phone: [facility] Work Phone: 09-25-2021 09:38-0400 Body mass index (BMI) [Ratio] 24 kg/m2 Dr. Charan Arndt Work Phone: [facility] Work Phone: 09-25-2021 09:38-0400 Body temperature 97.5 [degF] Dr. Charan Arndt Work Phone: [facility] Work Phone: 09-25-2021 09:38-0400 Body weight 71.[address] Charan Arndt Work Phone: [facility] Work Phone: 09-25-2021 09:38-0400 Diastolic blood pressure 91 mm[Hg] Dr. Charan Arndt Work Phone: [facility] Work Phone: 09-25-2021 09:38-0400 Heart rate 93 /min Dr. Charan Arndt Work Phone: [facility] Work Phone: 09-25-2021 09:38-0400 Respiratory rate 16 /min Dr. Charan Arndt Work Phone: [facility] Work Phone: 09-25-2021 09:38-0400 SaO2% (BldA) [Mass fraction] 96 % Dr. Charan Arndt Work Phone: [facility] Work Phone: 09-25-2021 09:38-0400 Systolic blood pressure 127 mm[Hg] Dr. Charan Arndt Work Phone: [facility] Work Phone: 08-21-2021 11:55-0500 Diastolic blood pressure 74 mm[Hg] Dr. Charan Arndt Work Phone: [facility] Work Phone: 08-21-2021 11:55-0500 Heart rate 74 /min Dr. Charan Arndt Work Phone: [facility] Work Phone: 08-21-2021 11:55-0500 Respiratory rate 18 /min Dr. Charan Arndt Work Phone: [facility] Work Phone: 08-21-2021 11:55-0500 SaO2% (BldA) [Mass fraction] 93 % Dr. Charan Arndt Work Phone: [facility] Work Phone: 08-21-2021 11:55-0500 Systolic blood pressure 138 mm[Hg] Dr. Charan Arndt Work Phone: [facility] Work Phone: 08-21-2021 10:04-0500 Body temperature 97.6 [degF] Dr. Charan Arndt Work Phone: [facility] Work Phone: 08-21-2021 08:16-0500 Body mass index (BMI) [Ratio] 25 kg/m2 Dr. Charan Arndt Work Phone: [facility] Work Phone: 08-21-2021 08:16-0500 Body weight 74.[address] Charan Arndt Work Phone: [facility] Work Phone: 07-24-2021 07:27-0500 Body weight 74.[address] Charan Arndt Work Phone: [facility] Work Phone: 07-24-2021 07:27-0500 Heart rate 87 /min Dr. Charan Arndt Work Phone: [facility] Work Phone: 07-24-2021 07:27-0500 SaO2% (BldA) [Mass fraction] 96 % Dr. Charan Arndt Work Phone: [facility] Work Phone: Encounters Encounter Date Encounter Type Care Provider Facility Start: 01-21-2025 End: 01-21-[address] Charan Arndt MD Work Phone: [facility] Start: 01-21-2025 End: 01-21-2025 Patient encounter procedure DOOR TO DOOR SALES REPRESENTATIVE Nicki Pantoja -[facility] Work Phone: Start: 12-07-2024 End: 12-07-2024 Chart abstracting Jacky Barahona MD Work Phone: [facility] Start: 11-26-2024 End: 11-26-2024 Patient encounter procedure DOOR TO DOOR SALES REPRESENTATIVE Nicki Pantoja -[facility] Work Phone: Start: 11-26-2024 End: 11-26-[address] Charan Arndt MD Work Phone: [facility] Work Phone: Start: 11-25-2024 End: 11-25-[address] Charan Arndt MD Work Phone: [facility] Work Phone: Start: 11-25-2024 End: 11-25-2024 Patient encounter procedure DOOR TO DOOR SALES REPRESENTATIVE Nicki Pantoja -Laboratory Work Phone: Start: 11-25-2024 End: 11-25-2024 ambulatory Nicki Pantoja Facility:[facility] Start: 09-21-2024 End: 09-27-2024 Follow-up encounter Enrique Allison APRN.OIL PLANT OPERATOR Work Phone: [facility] Comment on above: Results Start: 09-20-2024 End: 09-20-2024 ambulatory CHARAN ARNDT Facility:[facility] Start: 09-20-2024 End: 09-20-2024 Patient encounter procedure Vinita Lilly APRN.OIL PLANT OPERATOR Work Phone: [facility] Comment on above: Burning with urinati on (Primary Dx); Urinary hesitancy Start: 08-28-2024 Non-patient / Non-visit Dr. Hyun Duncan MD -[facility] Work Phone: Start: 08-27-2024 ambulatory Hyun Duncan Facility :[facility] Start: 08-27-2024 End: 08-28-2024 Evaluation and management of inpatient Dr. Hyun Duncan MD -Intensive Care Unit Work Phone: Start: 07-27-2024 End: 07-27-2024 Patient encounter procedure CARL Pantoja -[facility] Work Phone: Start: 07-27-2024 End: 07-27-2024 ambulatory [facility] Facility:[facility] Start: 07-12-2024 End: 07-12-[address] Erick Hernández MD -[facility] Work Phone: Start: 07-12-2024 End: 07-12-2024 ambulatory [facility] Facility:[facility] Start: 07-08-2024 End: 07-08-2024 Subsequent hospital visit by physician Xr [facility] Work Phone: Radiology Comment on above: Subacute cough [R05. 2] Start: 07-08-2024 End: 07-08-2024 [facility] Facility:[facility] Start: 07-08-2024 End: 07-08-2024 Office outpatient visit 25 minutes Jacky Ferrera APRN.CNP Work Phone: [facility] Comment on above: Subacute cough (Prim lexii Dx); COPD with exacerbation (HCC) Start: 07-05-2024 End: 07-05-[address] Erick Hernández MD -[facility] Work Phone: Start: 07-05-2024 ambulatory [facility] Facility:[facility] [place] Start: 07-05-2024 Non-patient / Non-visit Dr. Rock warren DO -[facility] Start: 07-05-2024 End: 07-05-2024 ambulatory [facility] Facility:[facility] Start: 07-02-2024 End: 07-02-2024 Patient encounter procedure Tammy Stone DOOR TO DOOR SALES REPRESENTATIVE-C -Pulmonary Services/Neurology Work Phone: Start: 07-02-2024 End: 07-02-2024 ambulatory Tammy Stone DOOR TO DOOR SALES REPRESENTATIVE Facility:[facility] Start: 06-23-2024 End: 06-23-2024 Patient encounter procedure Tammy Stone DOOR TO DOOR SALES REPRESENTATIVE-C -Pulmonary Services/Neurology Work Phone: Start: 06-23-2024 End: 06-23-2024 ambulatory Tammy Stone DOOR TO DOOR SALES REPRESENTATIVE Facility:[facility] Start: 06-14-2024 End: 06-14-2024 Patient encounter procedure Tammy Stone DOOR TO DOOR SALES REPRESENTATIVE-C -[facility] Work Phone: Start: 06-14-2024 End: 06-14-2024 ambulatory Tammy Stone DOOR TO DOOR SALES REPRESENTATIVE Facility:[facility] Start: 06-11-2024 End: 06-11-2024 Telephone encounter Charan Arndt MD Work Phone: Internal Medicine [facility] Comment on above: Patient Update; Appo intment; Pharmacy change Start: 05-27-2024 End: 05-27-[address] Erick Hernández MD -[facility] Work Phone: Start: 05-27-2024 End: 05-27-2024 ambulatory [facility] Facility:[facility] Start: 05-19-2024 End: 05-19-2024 ambulatory [facility] Facility:[facility] Start: 05-19-2024 End: 05-19-2024 Patient encounter procedure Josefina Parsons APRN.CNP Work Phone: [facility] Comment on above: COPD with exacerbati on (HCC) (Primary Dx); Bacterial sinusitis Start: 04-29-2024 End: 04-29-2024 ambulatory Tammy Stone DOOR TO DOOR SALES REPRESENTATIVE Facility:[facility] Start: 04-20-2024 End: 04-20-2024 Telephone encounter Radha Lockwood DOOR TO DOOR SALES REPRESENTATIVE Work Phone: [facility] Start: 04-07-2024 End: 04-07-2024 ambulatory Tammy Stone DOOR TO DOOR SALES REPRESENTATIVE Facility:[facility] Start: 03-29-2024 ambulatory [facility]: [place] Start: 03-28-2024 End: 03-29-2024 [facility] Start: 03-28-2024 End: 03-28-2024 Patient encounter procedure Vinita Lilly APRN.OIL PLANT OPERATOR Work Phone: [facility] Comment on above: Arm weakness (Primar y Dx) Start: 02-24-2024 End: 02-27-2024 ambulatory Charan Arndt MD Work Phone: Internal Medicine [place] [id number] Start: 02-23-2024 End: 02-23-2024 Telephone encounter Vinita Lilly APRN.OIL PLANT OPERATOR Work Phone: [facility] Comment on above: Results Start: 02-22-2024 End: 02-22-2024 [facility] Start: 02-22-2024 End: 02-22-2024 Patient encounter procedure Xochilt Cabrales TORPEDOMAN'S MATE.OIL PLANT OPERATOR Work Phone: [facility] Comment on above: Bacterial sinusitis (Primary Dx); Weight loss; COPD with exacerbation (HCC) Start: 02-03-2024 End: 02-03-2024 [facility] Start: 02-03-2024 End: 02-03-2024 Patient encounter procedure Dotty Hidalgo APRN.OIL PLANT OPERATOR Work Phone: [facility] Comment on above: Bacterial conjunctiv itis (Primary Dx) Start: 10-21-2023 End: 10-21-2023 Emergency department patient visit Dr. Charan Arndt Work Phone: [facility]-Emergency Department Work Phone: Start: 10-20-2023 Telephone encounter Alycia tracey TORPEDOMAN'S MATE.OIL PLANT OPERATOR Work Phone: Internal Medicine [facility] Comment on above: Results Start: 10-15-2023 End: 10-15-2023 Subsequent hospital visit by physician Minerva [facility] Work Phone: Radiology Comment on above: Shortness of breath [R06.02] Start: 10-15-2023 End: 10-15-2023 Patient encounter procedure Alycia Arnold APRN.OIL PLANT OPERATOR Work Phone: Internal Medicine [facility] Comment on above: Blood in stool (Prim lexii Dx); Shortness of breath; Rectal bleeding; Malaise; Unintentional weight loss; Chronic obstructive pulmonary disease, unspecified COPD type (HCC); Seizure disorder (HCC) Start: 10-14-2023 ambulatory Sunitha Vega RN [employer] Comment on above: Rectal Problem Start: 10-14-2023 Patient encounter procedure Sunitha Vega RN NURSE ENERGY CONSULTANT Comment on above: Clinical Update Start: 10-08-2023 Non-patient / Non-visit Dr. Fred Arndt Work Phone: [facility] Start: 10-06-2023 End: 10-06-[address] Charan Arndt Work Phone: [facility] Work Phone: Start: 10-06-2023 End: 10-06-[address] [facility] Work [facility] Start: 09-26-2023 End: 09-26-[address] Charan Arndt Work Phone: [facility] Work Phone: Start: 09-26-2023 End: 09-26-[address] [facility] Work [facility] Start: 09-24-2023 End: 09-24-[address] Charan Arndt Work Phone: [facility] Pulmonary Medicine Work Phone: Start: 07-31-2023 End: 07-31-2023 ambulatory RADHA LOCKWOOD Not Available Start: 07-31-2023 End: 07-31-2023 Office outpatient visit 15 minutes Radha Lockwood DOOR TO DOOR SALES REPRESENTATIVE Work Phone: [facility] Comment on above: Seizure (CMS/HCC) (P rimary Dx); Migraine without aura and without status migrainosus, not intractable (CMS/HCC) Start: 06-23-2023 End: 06-23-2023 ambulatory RADHA LOCKWOOD Not Available Start: 04-28-2023 End: 04-28-2023 Emergency department patient visit [facility]Emergency Department Work Phone: Start: 04-07-2023 End: 04-07-2023 Patient encounter procedure Serene Jerome PA-C Work Phone: Internal Medicine [facility] Comment on above: Anxiety associated w ith depression (Primary Dx); Psychosocial stressors Start: 04-03-2023 End: 04-03-2023 Patient encounter procedure Germania Goldberg APRN.OIL PLANT OPERATOR Work Phone: [facility] Comment on above: Rhinosinusitis (Prim lexii Dx) Start: 03-05-2023 End: 03-05-2023 Patient encounter procedure Malathi Skinner APRN.OIL PLANT OPERATOR Work Phone: [facility] Comment on above: Diarrhea, unspecifie d type (Primary Dx); Lower abdominal pain Start: 01-11-2023 End: 01-11-2023 ambulatory [facility] Work Phone: Start: 01-11-2023 End: 01-11-2023 Patient encounter procedure [facility] Work Phone: Start: 10-03-2022 End: 10-03-[address] Charan Arndt Work Phone: [facility] Work Phone: Start: 10-03-2022 End: 10-03-[address] Charan Arndt Work Phone: [facility] Start: 09-10-2022 End: 09-10-[address] Charan Arndt Work Phone: [facility]-Pulmonary Medicine [facility] Start: 05-21-2022 Telephone encounter Charan issa MD Work Phone: Internal Medicine [facility] Comment on above: Patient Update (Pt w as an inpt at [facility]/) Start: 05-18-2022 Non-patient / Non-visit Dr. Fred Arndt Work Phone: [facility] Inpatient Physicians Start: 05-17-2022 Non-patient / Non-visit Dr. Fred Arndt Work Phone: [facility] Inpatient Phys[facility] Start: 05-17-2022 End: 05-19-2022 Evaluation and management of inpatient [facility]-Medical Surgical 3 Start: 05-17-2022 End: 05-17-2022 Subsequent hospital visit by physician Xr [facility] Work Phone: Radiology Comment on above: Fever, unspecified f ever cause [R50.9] Start: 05-17-2022 End: 05-17-2022 Patient encounter procedure Elida Ibarra PA-C Work Phone: [facility] Comment on above: Lingular pneumonia ( Primary Dx) Start: 04-15-2022 Telephone encounter Xochilt Cabrales APRN.OIL PLANT OPERATOR Work Phone: [facility] Comment on above: Rx backordered Start: 04-15-2022 End: 04-15-2022 Patient encounter procedure Xochilt Cabrales APRN.OIL PLANT OPERATOR Work Phone: [facility] Comment on above: COPD with exacerbati on (HCC) (Primary Dx); Sinobronchitis Start: 03-09-2022 End: 03-10-2022 Emergency department patient visit [facility]Emergency Department Start: 02-28-2022 Refill Alison ReyesOIL PLANT OPERATOR Work Phone: Internal Medicine [facility] Comment on above: Refill Request Start: 10-01-2021 End: 10-01-[address] Charan Arndt Work Phone: [facility] Start: 09-25-2021 End: 09-25-[address] [facility] Start: 08-21-2021 End: 08-21-2021 Emergency department patient visit Dr. Charan Arndt Work Phone: [facility]-Emergency Department Start: 07-24-2021 Non-patient / Non-visit Dr. Fred Arndt Work Phone: [facility] Start: 07-24-2021 End: 07-24-[address] Charan Arndt Work Phone: [facility]-Pulmonary Services/Neurology Start: 07-18-2021 Non-patient / Non-visit Dr. Fred Arndt Work Phone: [facility] Start: 07-18-2021 End: 07-18-[address] Charan Arndt Work Phone: [facility]-Pulmonary Services/Neurology Procedures Date Procedure Procedure Detail Performing Clinician Start: 09-20-2024 Urnls dip stick/tabl et rgnt auto w/o microscopy Vinita Lilly TORPEDOMAN'S MATE.OIL PLANT OPERATOR Work Phone: Start: 08-27-2024 MRI of brain with contrast Dr. Charan Arndt MD Work Phone: Start: 08-27-2024 Methadone measuremen t, urine Dr. Charan Arndt MD Work Phone: Start: 08-27-2024 Plain chest X-ray Dr. Sri Arndt MD Work Phone: Start: 08-27-2024 Carbon dioxide measurement, partial pressure Dr. Charan Arndt MD Work Phone: Start: 08-27-2024 Gases blood o2 satur ation only direct tonio Dr. Charan Arndt MD Work Phone: Start: 08-27-2024 Measurement of parti al pressure of oxygen in blood Dr. Charan Arndt MD Work Phone: Start: 08-27-2024 CT angiography of he ad and neck Dr. Charan Arndt MD Work Phone: Start: 08-27-2024 CT of head without contrast Dr. Charan Arndt MD Work Phone: Start: 08-27-[address] Charan Arndt MD Work Phone: Start: 07-08-2024 Radiologic exam ches t 2 views Jacky Ferrera TORPEDOMAN'S MATE.OIL PLANT OPERATOR Work Phone: Start: 07-05-2024 MRI of cervical spine Suyapa Arndt MD Work Phone: Start: 07-02-[address] Charan Arndt MD Work Phone: Start: 10-21-2023 Plain chest X-ray Dr. Sri Arndt Work Phone: Start: 10-15-2023 Radiologic exam ches t 2 views Alycia Arnold TORPEDOMAN'S MATE.OIL PLANT OPERATOR Work Phone: Start: 04-28-2023 Diagnostic radiograp hy of finger Start: 01-11-2023 CT of chest without contrast Start: 10-03-[address] Charan Arndt Work Phone: Start: 05-17-2022 Plain chest X-ray Start: 05-17-2022 Radiologic exam ches t 2 views Elida Ibarra PA-C Work Phone: Start: 03-09-2022 Plain x-ray of wrist Start: 10-01-[address] Charan Arndt Work Phone: Start: 08-21-2021 End: 08-21-[address] Charan Arndt Work Phone: Start: 08-21-2021 Plain chest X-ray Dr. Sri Arndt Work Phone: Start: 10-10-2016 Lipid 1996 panel - S marsha or Plasma Malathi Skinner TORPEDOMAN'S MATE.OIL PLANT OPERATOR Work Phone: Start: 02-07-2009 Anali Whitten APRN.OIL PLANT OPERATOR Work Phone: Influenza Types A,B Direct FA (PARAG) Legionella pneumophi la antigen assay Streptococcus pneumo niae Antigen (M Viral antigen assay Plan of Treatment Date Care Activity Detail Author Start: 04-28-2033 Urine microalbumin profile DTaP,Tdap,Td Vaccine (3 - Td or Tdap) [facility] Start: 10-14-2026 Diabetes Screening Diabetes Screenin g [facility] Start: 03-05-2026 Diabetes Screening Diabetes Screenin [facility] Start: 02-14-2025 Influenza vaccination Influenz a Vaccine (Season Ended) [facility] Start: 10-14-2024 Annual PCP Team Games Manager natividad Disease Visit Annual PCP Team Chronic Disease Visit [facility] Start: 10-02-2024 Urine microalbumin profile [facility] Start: 09-27-2024 End: 09-27-2024 ambulatory 09/27/2024 2:20 PM EDT [facility] [address] [place] [address] Alison Whitten APRN.OIL PLANT OPERATOR [address] [place] [address] uti f/u 1 wk [facility] Comment on above: uti f/u 1 wk Start: 08-28-2024 Patient discharge [facility] Start: 08-28-2024 [facility] Start: 08-28-2024 Referral to service [facility] Start: 08-28-2024 Inhalation therapy procedure [facility] Start: 08-27-2024 Following clinical pathway protocol [facility] Start: 08-27-2024 Consultation [facility] Start: 08-27-2024 Telemedicine consult ation with patient [facility] Start: 08-27-2024 Continuous pulse oximetry [facility] Start: 08-27-2024 Notification of physician [facility] Start: 08-27-2024 Oxygen therapy [facility] Start: 08-27-2024 Vital signs measurements [facility] Start: 08-27-2024 End: 08-27-2024 Admission procedure [facility] Start: 08-27-2024 End: 08-27-2024 [facility] Start: 08-27-2024 Patient referral to dietitian [facility] Start: 06-16-2024 Medicare Advantage A nnual Wellness Visit Medicare Advantage Annual Wellness Visit [facility] Start: 04-27-2024 End: 04-27-2024 Telemedicine consultation with patient 04/27/2024 9:30 AM EST Telemedicine [facility] [address] [place] [id number] Radha Lockwood NP [address] [place] [address] [facility] Start: 03-12-2024 End: 03-12-2024 Patient encounter procedure 03/12/2024 2:00 PM EDT Office Visit [facility] [address] [place], [place] [phone] Charan Arndt MD [address] [place], [place] [id number] Weight Loss Follow Up From [facility] Comment on above: Weight Loss Follow U p From [facility] Visit Start: 03-01-2024 DIABETES SCREEN DIABETES SCREEN [facility] Start: 02-24-2024 End: 05-25-2024 Lipid 1996 panel - Serum or Plasma LIPID PANEL BASIC Lab Routine Medication management Expected: 02/24/2024, Expires: 05/25/2024 [facility] Work Phone: Comment on above: Expected: 02/24/2024 , Expires: 05/25/2024 Start: 02-15-2024 Covid-19 Vaccine ( season) Covid-19 Vaccine ( season) [facility] Start: 02-15-2024 Covid-19 Vaccine ( season) Covid-19 Vaccine ( season) [facility] Start: 02-15-2024 Influenza vaccination [facility] Start: 10-27-2023 End: 10-27-2023 Patient encounter procedure 10/27/2023 8:45 AM EDT Office Visit General Surgery [address] [place], [place] [id number] Teresa Arechiga MD [address] [place] [phone] Shortness of breath [R06.02]; Blood in stool [K92.1]; Rectal bleeding [K62.5]; Unintentional weight loss [R63.4] General Surgery Comment on above: Shortness of breath [R06.02]; Blood in stool [K92.1]; Rectal bleeding [K62.5]; Unintentional weight loss [R63.4] Start: 10-21-2023 End: 10-21-2023 [facility] Start: 10-21-2023 [facility] Start: 10-15-2023 End: 10-15-2023 Patient encounter procedure 10/15/2023 10:00 AM EDT Office Visit [facility] [address] [place], [place] [phone] Alycia Arnold, TORPEDOMAN'S MATE.OIL PLANT OPERATOR [address] [place], [place] [id number] mild abd discomfort and rectal bleeding for several months, see triage encounter 10/14/23 [facility] Comment on above: mild abd discomfort and rectal bleeding for several months, see triage encounter 10/14/23 Start: 04-28-2023 [facility] Start: 03-05-2023 End: 05-05-2023 Lipase [Enzymatic activity/volume] in Serum or Plasma [facility] Work Phone: Comment on above: Expected: 03/05/2023 , Expires: 05/05/2023 Start: 02-14-2023 Covid-19 Vaccine () Covid-19 Vaccine () [facility] Start: 02-14-2023 Influenza vaccination Influenza Vacc ine (#1) [facility] Start: 2022 RSV Vaccine (1 - 1-d ose 60+ series) RSV Vaccine (1 - 1-dose 60+ series) [facility] Start: 2022 RSV Vaccine (1 - Ris k 60-74 years 1-dose series) RSV Vaccine (1 - Risk 60-74 years 1-dose series) [facility] Start: 05-19-2022 Patient discharge [facility] Work Phone: Start: 05-19-2022 Following clinical pathway protocol [facility] Work Phone: Start: 05-18-2022 End: 05-18-2022 Following clinical pathway protocol [facility] Work Phone: Start: 05-18-2022 Assessment of risk o f venous thromboembolism [facility] Work Phone: Start: 05-18-2022 Elevation of head of bed [facility] Work Phone: Start: 05-18-2022 Insertion of cathete r into peripheral vein [facility] Work Phone: Start: 05-18-2022 Oxygen therapy [facility] Work Phone: Start: 05-18-2022 Patient education [facility] Work Phone: Start: 05-18-2022 Providing care accor ding to standard [facility] Work Phone: Start: 05-18-2022 Provision of activit y privileges [facility] Work Phone: Start: 05-18-2022 Referral to service [facility] Work Phone: Start: 05-18-2022 [facility] Work Phone: Start: 05-18-2022 Inhalation therapy procedure [facility] Work Phone: Start: 05-18-2022 Patient referral to dietitian [facility] Work Phone: Start: 05-17-2022 Verification routine [facility] Work Phone: Start: 05-17-2022 Admission procedure [facility] Work Phone: Start: 05-17-2022 End: 05-17-2022 [facility] Work Phone: Start: 05-17-2022 [facility] Work Phone: Start: 05-17-2022 End: 05-17-2022 Blood culture [facility] Work Phone: Start: 02-14-2022 Influenza vaccination INFLUENZA (#1) [facility] Start: 10-10-2021 Lipid 1996 panel - S marsha or Plasma Lipid Screening [facility] Start: 10-10-2021 Lipid panel Lipid Screening [facility] Start: 10-10-2021 LIPID SCREEN LIPID SCREEN [facility] Start: 10-10-2021 PROSTATE CANCER SCRE ENING DISCUSSION PROSTATE CANCER SCREENING DISCUSSION [facility] Start: 10-10-2021 Prostate specific an tigen measurement Prostate Cancer Screening Discussion [facility] Start: 03-21-2021 COVID-19 VACCINE (3 - Booster for Pfizer series) COVID-19 VACCINE (3 - Booster for Pfizer series) [facility] Start: 12-14-2020 COVID-19 VACCINE (3 - Booster for Pfizer series) COVID-19 VACCINE (3 - Booster for Pfizer series) [facility] Start: 12-14-2020 Covid-19 Vaccine (3 - Pfizer series) Covid-19 Vaccine (3 - Pfizer series) [facility] Start: 02-07-2019 Colonoscopy COLONOSCOPY [facility] Start: 02-07-2019 COLORECTAL CANCER SCREENING COLORECTAL CANCER SCREENING [facility] Start: 02-07-2019 Screening for malign ant neoplasm of colon [facility] Start: 12-11-2016 PNEUMOCOCCAL (2 - PCV) PNEUMOCOCCAL (2 - PCV) [facility] Start: 12-11-2016 Pneumococcal vaccination [facility] Start: 12-11-2016 Pneumococcal Vaccine : 50+ (2 of 2 - PCV) Pneumococcal Vaccine: 50+ (2 of 2 - PCV) [facility] Start: 2012 SHINGRIX VACCINE (1 of 2) CABRAL GRIX VACCINE (1 of 2) [facility] Start: 06-11-2012 FECAL OCCULT BLOOD FECAL OCCULT BLOO D [facility] Start: 06-11-2012 Screening for malign ant neoplasm of colon Fecal Occult Blood [facility] Start: 09-24-2007 COLOGUARD (FIT-DNA) COLOGUARD (FIT-D NA) [facility] Start: 09-24-[address] COLONOGRAPHY [facility] Start: 09-24-2007 Screening for malign ant neoplasm of colon [facility] Start: 09-24-2007 SIGMOIDOSCOPY SIGMOIDOSCOPY [facility] Start: 1992 Zoledronic acid therapy Alpha- 1 Antitrypsin Deficiency Screening [facility] Start: 1980 Spirometry Spirometry [facility] Bacteria identified in Blood by Culture Blood Culture [facility] Work Phone: Bacteria identified in Urine by Culture [facility] Work Phone: Bacteria identified in Urine by Culture BACTERIAL CULTURE, URINE Microbiology Routine Burning with urination 09/20/2024 10:52 AM EDT [facility] Work Phone: Basic metabolic 2008 panel with ionized calcium - Serum or Plasma [facility] Blood culture [facility] Work Phone: Brain natriuretic pe ptide measurement [facility] Clostridioides diffi cile toxin genes [Presence] in Stool by SOLITARIO with probe detection C. DIFFICILE PCR Lab Routine Diarrhea, unspecified type Ordered: 03/05/2023 [facility] Work Phone: Comment on above: Ordered: 03/05/2023 COVID & INFLUENZA A/ B & RSV PCR, ROUTINE COVID & INFLUENZA A/B & RSV PCR, ROUTINE Microbiology Routine Bacterial sinusitis 02/22/2024 3:08 PM EDT [facility] Work Phone: [facility] ENTERIC BACTERIAL PA ROSALIND BY PCR ENTERIC BACTERIAL PANEL BY PCR Lab STAT Diarrhea, unspecified type Ordered: 03/05/2023 [facility] Work Phone: Comment on above: Ordered: 03/05/2023 Ova and parasites identified in Unspecified specimen by Light microscopy OVA + PARA MICROSCOPIC Microbiology STAT Diarrhea, unspecified type Ordered: 03/05/2023 [facility] Work Phone: Comment on above: Ordered: 03/05/2023 Patient Education [facility] Work Phone: Patient referral [facility] Work Phone: Walking distance 6 minutes [facility] XR Cervical spine 4 or 5 Views [facility] Immunizations Immunization Date Immunization Notes Care Provider Susan serranoscotty 04-28-2023 tetanus toxoid, redu grace diphtheria toxoid, and acellular pertussis vaccine, adsorbed [facility] 05-18-2022 influenza, injectabl e, quadrivalent, preservative free [facility] 05-18-2022 influenza, seasonal, injectable Dr. Charan Arndt Work Phone: [facility] 05-18-2022 influenza virus vacc ine, unspecified formulation Malathi Skinner [employer]IL [employer]ANT OPERATOR Work Phone: [facility] 03-01-2021 influenza, injectabl e, quadrivalent, contains preservative Alison Older [employer]IL [employer]ANT OPERATOR Work Phone: [facility] Work Phone: 04-05-2019 influenza, injectabl e, quadrivalent, preservative free [facility] 04-05-2019 influenza, seasonal, injectable Dr. Charan Arndt Work Phone: [facility] 04-05-2019 influenza, seasonal, injectable, preservative free Alison Older [employer].OIL PLANT OPERATOR Work Phone: [facility] 05-14-2018 Flucelvax Quad 2017- 2019 (PF) (flu vac qs 2018(4 yr up)CD(PF)) 60 mcg ([address] Charan Arndt Work Phone: [facility] Work Phone: 04-03-2018 influenza, injectabl e, quadrivalent, preservative free [facility] 04-03-2018 influenza, seasonal, injectable Dr. Charan Arndt Work Phone: [facility] 04-15-2017 influenza, injectabl e, quadrivalent, preservative free [facility] 04-15-2017 influenza, seasonal, injectable Dr. Charan Arndt Work Phone: [facility] 04-08-2016 influenza, injectabl e, quadrivalent, preservative free [facility] 04-08-2016 influenza, seasonal, injectable Dr. Charan Arndt Work Phone: [facility] 12-12-2015 pneumococcal polysaccharide vaccine, 23 valent Alison Older [employer]IL [employer]ANT OPERATOR Work Phone: [facility] Work Phone: 10-09-2014 tetanus toxoid, redu grace diphtheria toxoid, and acellular pertussis vaccine, adsorbed Dr. Charan Arndt Work Phone: [facility] 10-02-2014 tetanus toxoid, redu grace diphtheria toxoid, and acellular pertussis vaccine, adsorbed Alison Older [employer]IL PLANT OPERATOR Work Phone: [facility] Work Phone: 10-07-[address] Kahlil Arndt Work Phone: [facility] Work Phone: 10-07-2013 pneumococcal vaccine , unspecified formulation [facility] 03-22-[address] Charan Arndt Work Phone: [facility] 03-22-2013 influenza virus vacc ine, unspecified formulation Alison Older [employer] PLANT OPERATOR Work Phone: [facility] 02-07-2008 tetanus and diphther ia toxoids, adsorbed, preservative free, for adult use (2 Lf of tetanus toxoid and 2 Lf of diphtheria toxoid) Alison Older [employer]IL [employer]ANT OPERATOR Work Phone: [facility] Work Phone: Payers Date Payer Category Payer Unknown [id number] 2024 Medicare (Managed Care) [facility] HMO [id number] 2024 Unknown [id number] 2024 Unknown [id number] 2024 Self-pay [id number] 2024 Medicare [id number] 2024 Unknown [id number] 2024 Unknown [id number] 2022 Unknown [id number] 2020 Medicaid [id number] 2020 Medicare [id number]. [id number] 2017 Medicaid [id number] 1960 Unknown [id number] 2.16.840.1.165724.3.579.2. 1259 1960 Unknown [id number] 2.16.840.1.678352.3.579.2. 1259 Unknown [id number] Unknown [id number] Unknown [id number] 2.16.840.1.155506.3.579.2. 462 Unknown [id number] 2.16.840.1.734821.3.579.2. 462 Unknown [id number] 2.16.840.1.761705.3.579.2. 462 Unknown [id number] 2.16.840.1.813923.3.579.2. 462 Unknown [id number] 2.16.840.1.047926.3.579.2. 462 Unknown [id number] 2.16.840.1.683364.3.579.2. 462 Unknown [id number] 2.16.840.1.968957.3.579.2. 462 Unknown [id number] 2.16840.1.265365.3.579.2. 462 Unknown [id number] 2.840.1.826184.3.579.2. 462 Unknown [id number] 2.840.1.138013.3.579.2. 462 Unknown [id number] 2.840.1.464866.3.579.2. 462 Unknown [id number] 2.840.1.134899.3.579.2. 462 Unknown [id number] 2.840.1.089128.3.579.2. 462 Unknown [id number] 2.16840.1.276967.3.579.2. 462 Unknown [id number] 2.840.1.611205.3.579.2. 462 Unknown [id number] 2.16840.1.257028.3.579.2. 462 Unknown [id number] 2.16.840.1.807790.3.579.2. 462 Unknown [id number] 2.16840.1.686433.3.579.2. 462 Unknown [id number] 2.16.840.1.585912.3.579.2. 462 Unknown [id number] 2.16840.1.158054.3.579.2. 462 Social History Date Type Detail Facility Start: 09-25-2021 End: 10-21-2023 Tobacco smoking status NHIS Unknown if ever smoked [facility] Start: 04-03-2018 None [facility] Start: 04-28-2020 With Family [facility] Start: 04-28-2020 Cigarettes [facility] Start: 1960 Sex Assigned At Male [facility] Start: 08-20-2017 End: 02-03-2024 Tobacco smoking status NHIS Smokes tobacco daily [facility] Work Phone: History of tobacco use Cigarette Smoker [facility] Work Phone: Start: 08-20-2017 End: 03-05-2023 Cigarettes smoked current (pack per day) - Reported 0.5 [facility] Work Phone: Start: 08-20-2017 End: 02-03-2024 Tobacco use and exposure Smokeless tobacco non-user [facility] Work Phone: Start: 04-10-2021 End: 07-08-2024 Alcohol intake Current non-drinker of alcohol (finding) [facility] Start: 09-16-2011 History SDOH Alcohol Comment Rarely [facility] Start: 08-20-2017 End: 04-15-2022 Tobacco Comment trying to quit smoke 10cigs daily [facility] Start: 1960 Sex Assigned At Not on file [facility] Start: 04-05-2022 End: 05-17-2022 Exposure to SARS-CoV-2 (event) Not sure [facility] Start: 03-01-2021 End: 03-05-2023 Tobacco use panel [facility] Work Phone: Adult Depression Screening Assessment 4 [facility] Work Phone: Start: 06-23-2023 Alcohol intake Lifetime non-d roxanne (finding) [facility] Start: 12-16-2022 Tobacco Comment Patient smokes 21-30 cigarettes/day [Moderate cigarette smoker]Thinking about quitting. [facility] Start: 12-16-2022 Alcohol Comment Caffeine: > 4 cups/day coffee [facility] Start: 08-27-2024 Tobacco smoking stat us MAIS Current Heavy tobacco smoker [facility] Start: 08-28-2024 Sex Male (finding) [facility] Goals Date Patient Goal Desired Activity /State Functional Status Date Assessment Result Facility 08-28-2024 Functional status Ambulates;Chair [facility] Work Phone: 05-19-2022 Functional status Activity Abili ty Standby Assist [facility] Work Phone: 05-18-2022 Functional status Patient Activi ty Ambulates;Bathroom Privilege [facility] Work Phone: 11-04-2014 Are you deaf, or do you have serious difficulty hearing No 11/04/2014 4:57 PM Valeri Huizar RN No [facility] 11-04-2014 Are you blind, or do you have serious difficulty seeing, even when wearing glasses No 11/04/2014 4:57 PM Valeri Huizar, JULIETTE No [facility] 11-04-2014 Do you have serious difficulty walking or climbing stairs No 11/04/2014 4:57 PM Valeri Huizar RN No [facility] 11-04-2014 Do you have difficul ty dressing or bathing No 11/04/2014 4:57 PM Valeri Huizar, JULIETTE No [facility] 11-04-2014 Because of a physica l, mental, or emotional condition, do you have difficulty doing errands alone such as visiting a physician's office or shopping No 11/04/2014 4:57 PM Valeri Huizar RN No [facility] Mental Status Date Assessment Result Facility 08-28-2024 Cognitive function Voice/Name [facility] Work Phone: 10-21-2023 Cognitive function Level Of Cons ciousness Awake;Alert;Appropriate;Fol lows Commands [facility] Work Phone: 05-19-2022 Cognitive function Awake;Alert;F ollows Commands [facility] Work Phone: 05-17-2022 Cognitive function Awake;Alert;Inappropri ate [facility] Work Phone: 11-04-2014 Because of a physica l, mental, or emotional condition, do you have serious difficulty concentrating, remembering, or making decisions No 11/04/2014 4:57 PM EDT Valeri Greene RN No [facility] Clinical Notes 03-21-2011 to 12-07-2024 Jacky Barahona MD - 12/07/2024 3:36 PM EDTHPromise marte LPN - 12/07/2024 9:22 AM EDT Note Date & Type Note Facility 12-07-2024 Note HNO ID: [id number] Author: JACKY BARAHONA MD Service: ? Author Type: Physician Type: Progress Notes Filed: 12/07/2024 15:37 Note Text: Will forward to PCP. Not sure why they say fax to coleen Barahona. I have never seen patient. [facility] 12-07-2024 History of Present illness Narrative Will forward to PCP. Not sure why they say fax to coleen Barahona. I have never seen patient. Fax requested results were to be sent to Dr Barahona. Not sure why. Doesn't look like Dr Barahona has seen this pt and no appointment scheduled with Dr Barahona. PCP is DR Arndt. Promise Walden LPN Scan on 12/01/2024 11:18 AM by Provider, External, PA-C: Chemistry documented in this encounter [facility] 12-07-2024 Note HNO ID: [id number] Author: PROMISE WALDEN LPN Service: ? Author Type: LICENSED NURSE Type: Progress Notes Filed: 12/07/2024 09:23 Note Text: Fax requested results were to be sent to Dr Barahona. Not sure why. Doesn't look like Dr Barahona has seen this pt and no appointment scheduled with Dr Barahona. PCP is DR Arndt. Promise Walden LPN Scan on 12/01/2024 11:18 AM by Provider, External, PA-C: Chemistry [facility] 11-26-2024 Evaluation note Diagnosis Onset Date Resolution Chronic respiratory failure chronic November 26, 2024 2:46pm Nicotine dependence, cigarettes, uncomplicated chronic November 26, 2024 2:46pm LACEY (obstructive sleep apnea) chronic November 26, 2024 2:46pm Stage 4 very severe COPD by GOLD classification chronic November 2:46pm [employer] Work Phone: [phone] Telephone encounter Note* Telephone Encounter - Radha Toledo MA - 09/27/2024 7:52 AM EDT Patient given results and verbalized understanding of instructions given. Radha Toledo MA [facility]04-14-2025 Miscellaneous Notes* Telephone Encounter - Radha Toledo MA - 09/27/2024 7:52 AM EDT Patient given results and verbalized understanding of instructions given. Radha Toledo MA * Telephone Encounter - Darcie Rodrigues OCCA - 09/26/2024 9:33 AM EDT Third attempt to reach patient by phone with no answer. Left additional VM to return call to office. NGA Saucedo * Telephone Encounter - Darcie Rodrigues OCCA - 09/26/2024 9:33 AM EDT ----- Message from Enrique Allison APRN.OIL PLANT OPERATOR sent at 09/21/2024 10:34 AM EDT ----- Please inform pt that the urine culture was negative showing no signs of infection. He may continueto take the antibiotic as prescribed if he feels as though they are helping with symptoms. He should follow up with his pcp. * Telephone Encounter - Radha Toledo MA - 09/22/2024 9:33 AM EDT Left message for patient to return call. Radha Toledo MA * Telephone Encounter - Radha Toledo MA - 09/21/2024 11:13 AM EDT Left message for patient to return call. Radha Toledo MA * Telephone Encounter - Radha Toledo MA - 09/21/2024 11:13 AM EDT ----- Message from Enrique Allison APRN.OIL PLANT OPERATOR sent at 09/21/2024 10:34 AM EDT ----- Please inform pt that the urine culture was negative showing no signs of infection. He may continueto take the antibiotic as prescribed if he feels as though they are helping with symptoms. He should follow up with his pcp. [facility] Telephone encounter Note * Telephone Encounter - Darcie Rodrigues OCCA - 09/26/2024 9:33 AM EDT Third attempt to reach patient by phone with no answer. Left additional VM to return call to office. NGA Saucedo [facility]04-13-2025 Telephone encounter Note* Telephone Encounter - Darcie Rodrigues OCCA - 09/26/2024 9:33 AM EDT ----- Message from Enrique Allison APRN.OIL PLANT OPERATOR sent at 09/21/2024 10:34 AM EDT ----- Please inform pt that the urine culture was negative showing no signs of infection. He may continueto take the antibiotic as prescribed if he feels as though they are helping with symptoms. He should follow up with his pcp. [facility]04-09-2025 Telephone encounter Note* Telephone Encounter - Radha Toledo MA - 09/22/2024 9:33 AM EDT Left message for patient to return call. Radha Toledo MA [facility]04-08-2025 Telephone encounter Note* Telephone Encounter - Radha Toledo MA - 09/21/2024 11:13 AM EDT Left message for patient to return call. Radha Toledo MA [facility]04-08-2025 Telephone encounter Note* Telephone Encounter - Radha Toledo MA - 09/21/2024 11:13 AM EDT ----- Message from Enrique Allison APRN.CNP sent at 09/21/2024 10:34 AM EDT ----- Please inform pt that the urine culture was negative showing no signs of infection. He may continueto take the antibiotic as prescribed if he feels as though they are helping with symptoms. He should follow up with his pcp. [facility]04-07-2025 NoteHNO ID: [id number] Author: VINITA LILLY APRN.ASHOK Service: ? Author Type: Nurse Practitioner Type: Progress Notes Filed: 09/20/2024 14:11 Note Text: [facility] Subjective HPI HPI Eliud Blount is a 63 year old male who presents today for CC of urinary urgency, and reports hx of uti in past/many years ago. Denies perineal and testicular pain. 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 Alanis RPR 1ST INGUN HRNA AGE 7 YRS/> REDUCIBLE 01/28/2008 Left Open repair RPR UMBILICAL HRNA 5 YRS/> REDUCIBLE simple ALLERGIES Day-Nite Severe Cold-Flu [Mppdkmk-Yg-We-Acetaminophen-Gg], Dextromethorphan, Doxylamine, Pseudoephedrine, Sertraline, Zoloft [Sertraline Hcl], Baclofen, and Nyquil [Pysxednkh-Npy-Sc-Acetaminophen] MEDICATIONS fluticasone (FLONASE) 50 mcg/actuation nasal spray Use 2 Sprays in each nostril once daily. MUCUS RELIEF ER 1,200 mg Ta12 Take 1 tablet by mouth every 12 hours. amitriptyline (ELAVIL) 100 mg tablet Take 1 tablet by mouth daily at bedtime. Prescribed by neurology divalproex DR (DEPAKOTE) 250 mg EC tablet Take 2 tablets by mouth three times a day. Prescribed by neurology gabapentin (NEURONTIN) 600 mg tablet Take 1 tablet by mouth three times a day. Prescribed by neurology ibuprofen (MOTRIN) 200 mg tablet Take 2 tablets by mouth every 6 hours as needed for pain (Take with food.). albuterol (PROVENTIL) 5 mg/mL nebu Inhale 0.5 [...] daily before breakfast. 1/2 hr before meal. bxvgcbusiiv-dzxdutbtf-texwoyxs (TRELEGY ELLIPTA) 100-62.5-25 mcg Inhale 1 Puff as instructed once daily. levETIRAcetam (KEPPRA) 500 mg tablet twice daily. albuterol HFA (VENTOLIN HFA) 90 mcg/actuation inhaler Inhale 2 Puffs as instructed every 4 hours as needed for Wheezing/Shortness of Breath. multivitamin tablet Take 1 tablet by mouth once daily. sulfamethoxazole-trimethoprim (BACTRIM DS) 800-160 mg per tablet Take 1 tablet by [...] No Review of Systems Constitutional: Negative for fever. Cardiovascular: Negative for chest pain. Gastrointestinal: Negative for abdominal pain, constipation, diarrhea, nausea and vomiting. Genitourinary: Positive for dysuria, frequency and urgency. Negative for flank pain. Musculoskeletal: Negative for back pain. Objective BP 106/62 Pulse 70 Temp 36.2 ?C (97.1 ?F) Resp 16 Wt 56.4 kg (124 lb 5.4 oz) SpO2 96% BMI 19.47 kg/m? Physical Exam Constitutional: General: He is not in acute distress. Appearance: Normal appearance. He is not toxic-appearing. Cardiovascular: Rate and Rhythm: Normal rate and regular rhythm. Heart sounds: Normal heart sound (more content not included)...[facility]04-07-2025 History of Present illness Narrative* Vinita Lilly APRN.OIL PLANT OPERATOR - 09/20/2024 10:53 AM EDT [facility] Subjective HPI HPI Eliud Blount is a 63 year old male who presents today for CC of urinary urgency, and reports hx of uti in past/many years ago. Denies perineal and testicular pain. 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 Alanis RPR 1ST INGUN HRNA AGE 7 YRS/> REDUCIBLE 01/28/2008 Left Open repair RPR UMBILICAL HRNA 5 YRS/> REDUCIBLE simple ALLERGIES Day-Nite Severe Cold-Flu [Kcnxbzm-Pb-Ru-Acetaminophen-Gg], Dextromethorphan, Doxylamine, Pseudoephedrine, Sertraline, Zoloft [Sertraline Hcl], Baclofen, and Nyquil [Wxtkvixha-Cte-Hd-Acetaminophen] MEDICATIONS fluticasone (FLONASE) 50 mcg/actuation nasal spray Use 2 Sprays in each nostril once daily. MUCUS RELIEF ER 1,200 mg Ta12 Take 1 tablet by mouth every 12 hours. amitriptyline (ELAVIL) 100 mg tablet Take 1 tablet by mouth daily at bedtime. Prescribed by neurology divalproex DR (DEPAKOTE) 250 mg EC tablet Take 2 tablets by mouth three times a day. Prescribed by neurology gabapentin (NEURONTIN) 600 mg tablet Take 1 tablet by mouth three times a day. Prescribed by neurology ibuprofen (MOTRIN) 200 mg tablet Take 2 tablets by mouth every 6 hours as needed for pain (Take with food.). albuterol (PROVENTIL) 5 mg/mL nebu Inhale 0.5 [...] daily before breakfast. 1/2 hr before meal. azhyubxnwqt-tuclenhvm-zjurucyv (TRELEGY ELLIPTA) 100-62.5-25 mcg Inhale 1 Puff as instructed once daily. levETIRAcetam (KEPPRA) 500 mg tablet twice daily. albuterol HFA (VENTOLIN HFA) 90 mcg/actuation inhaler Inhale 2 Puffs as instructed every 4 hours asneeded for Wheezing/Shortness of Breath. multivitamin tablet Take 1 tablet by mouth once daily. sulfamethoxazole-trimethoprim (BACTRIM DS) 800-160 mg per tablet Take 1 tablet by mouth two times aday for 7 days. FAMILY HISTORY Problem Relation [...] No Review of Systems Constitutional: Negative for fever. Cardiovascular: Negative for chest pain. Gastrointestinal: Negative for abdominal pain, constipation, diarrhea, nausea and vomiting. Genitourinary: Positive for dysuria, frequency and urgency. Negative for flank pain. Musculoskeletal: Negative for back pain. Objective BP 106/62 Pulse 70 Temp 36.2 C (97.1 F) Resp 16 Wt 56.4 kg (124 lb 5.4 oz) SpO2 96% BMI19.47 kg/m Physical Exam Constitutional: General: He is not in acute distress. Appearance: Normal appearance. He is not toxic-appearing. Cardiovascular: Rate and Rhythm: Normal rate and regular rhythm. Heart sounds: Normal heart sounds. Pulmonary: Effort: Pulmonary effort is normal. Breath sounds: Normal breath sounds. Abdominal: General: Bowel sounds are normal. Palpations: Abdomen is soft. Tenderness: There is no abdominal tenderness. Skin: General: Skin is warm and dry. {ASSESSMENT/PLAN: 1. Burning with urination - ICD9: 788.1, ICD10: R30.0 (primary diagnosis) acute - UA positive for honorio esterase, hematuria, and proteinuria - Send urine for culture - Begin treatment with Bactrim DS BID for 7 days - Patient education for prevention given - UA DIP, URINE (POC) - BACTERIAL CULTURE, URINE - SULFAMETHOXAZOLE 800 MG-TRIMETHOPRIM 160 MG TABLET 2. Urinary hesitancy - ICD9: 788.64, ICD10: R39.11 Refer to pcp, concerns for prostate abnormality . Vinita Lilly APRN.OIL PLANT OPERATOR History and Record Review External record(s) reviewed: prior outpatient record. Findings from review of outpatient records: 11/06 GFR 107 Differential Diagnoses - prostate dysfuntction is more likely for the following reason(s): suggested by H&P - uti is less likely for the following reason(s): length of symptoms Disposition The patient was discharged. Procedures [facility] Discharge summary [facility] Medical Records Department [address] [place] [address] Instructions for Home/Discharge Instructions 08/28/24 1142 MR#: [id number] Acct: [id number] Name: ELIUD BLOUNT Rep #:[id number] : 1960 63 From: Hyun Duncan MD PCP: Dr. Charan Arndt MD Status:ADM I N Discharge Instructions Diet Discharge Diet: Low fat / Low cholesterol DC O2, CPAP, BIPAP needs Home O2 Discharge instructions: No Dressing / Incision Discharge Activity: Return to Normal Activity Weight Bearing Status: Weight bearing as tolerated Dressing / Incision Call your doctor if you observe: Fever of 101 or Higher, Shortness of breath, Dizziness, Swelling in the ankles and Chest pain Follow Up Care Test Results: Test results from this visit will be discussed in further detail at your follow- up appointment, if applicable. Discharge Plan Admission Admit Date/Time: 08/27/24 17:01 Primary Reason for Your Visit: acute encephalopathy Attending Provider: Hyun Duncan Primary Care Provider: Charan Arndt Consulting Providers: Jone Dudley; Jeffry Bo; Magdi Serrano; Rock Dick; Calvin Jasso; Sebastian Charles; Jamal Mina; Claudine Davis; Morris Disla; Fabien Boles; Jarek Rosas; Sirisha Lorenzo; Rosaura Mosley; Debbie Jimenez; Krishan Calzada; Jermaine Valenzuela; Joe Crouch; Sukhdeep Michelle; Erica Palacios; Kee Lagos; Mauricio Culp; Humberto Ashley; Roel Bermudez; Al Conner; Nael Grullon; Charissa Vickers; Maria M Triana; Swathi Pete; Crow Barrera; Pauline Lyons; Saqib Holcomb; Eliud Tripp; Nehemias Martines; Sofia Smith; Jerome Pollack; Laxmi Oh; Flaco Hidalgo; Otto Gorman; Saturnino Calixto; Chiara Mccracken; Chandler Drake; Robyn Fontana; Kandi Ray Instructions Patient Instructions: ED Confusion Discharge Orders/Prescriptions Prescriptions: Continued fluticasone propionate 50 mcg/actuation spray,suspension 2 spray intranasal DAILY Qty: 16 3RF (DME) Disability Placard See Rx Instructions .ROUTE .MEDSUPPLY Qty: 1 0RF Rx Instructions: expires 06/14/2029 ipratropium bromide 42 mcg (0.06 %) spray,non-aerosol 2 spray intranasal TID Qty: 15 0RF Rx Instructions: administer into each nostril albuterol sulfate 90 mcg/actuation HFA aerosol inhaler 2 puff inhalation Q4H PRN (Reason: shortness of breath or wheezing) Qty: 8.5 11RF Rx Instructions: administer with spacer amitriptyline 100 mg tablet 100 mg PO QHS PRN (Reason: sleep) Patient Comments: TAKE 1 TABLET BY MOUTH EVERY DAY levetiracetam 500 MG tablet 500 mg PO DAILY divalproex 250 mg tablet,delayed release (DR/EC) 750 mg PO BID ibuprofen [Addaprin] 200 mg tablet 400 mg PO Q8H PRN (Reason: pain) gabapentin 800 mg tablet 800 mg PO TID guaifenesin 1,200 mg tablet extended release 12hr 1,200 mg PO Q12H PRN (Reason: cough) albuterol sulfate 2.5 mg /3 mL (0.083 %) solution for nebulization 2.5 mg inhalation Q4H PRN Qty: 120 4RF Rx Instructions: Use q4 hours and PRN for wheezing Trelegy Ellipta 200-62.5-25 mcg blister with device 1 inh inhalation DAILY Qty: 60 11RF Referrals / Follow Up: Charan Arndt MD [Primary Care Provider] - Within 1 Week Disposition Disposition (needs filled in before D/C Order can be placed): Home, Self Care 08/28/24 1142Hyun Duncan MD CC: Maria M Triana; Laxmi Oh; Saturnino Calixto; Swathi Pete MD; Charissa Vickers MD; Al Conner MD; Dr. Jeffry Bo MD; Dr. Nael Grullon MD; Dr. Jone Dudley MD; Dr. Magdi Serrano MD; Dr. Charan Arndt MD; Dr. Calvin Jasso MD; Dr. Crow Barrera MD; Dr. Rock Dick DO; Dr. Sebastian Charles MD; Dr. Jamal Mina MD; Dr. Morris Disla MD; Dr. Pauline Lyons MD; Dr. Eliud Tripp MD; Dr. Saqib Holcomb MD; Dr. Nehemias Martines MD; Dr. Fabien Boles MD; Dr. Jarek Rosas MD; Dr. Sirisha Lorenzo MD; Dr. Rosaura Mosley MD; Dr. Debbie Jimenez MD; Dr. Jerome Pollack DO; Dr. Otto Gorman MD; Dr. Flaco Hidalgo MD; Dr.Pavan Bianca MD; Dr. Krishan Calzada MD; Dr. Chiara Mccracken MD; Dr. Joe au MD; Dr. Kee Lagos MD; Dr. Erica Palacios MD; Dr. Sukhdeep Michelle DO; Dr. Chandler Drake MD; Dr. Mauricio Culp DO; Dr. Humberto Ashley MD; Dr. Robyn Fontana MD; Dr. Roel Bermudez MD; Dr. Claudine Davis MD; Sofia Smith DO; Kandi Ray MD ~ Signed [facility]03-15-2025 [facility] Medical Records Department [address] [place] [address] Discharge Summary 08/28/24 1142 MR#: [id number] Acct: [id number] Name: ELIUD BLOUNT Rep #: [id number] : 1960 63 From: Hyun Duncan MD PCP: Dr. Charan Arndt MD Status:DIS IN Location: ICU [id number] Providers Date of Admission: 08/27/24 Date of Discharge: 08/28/24 Primary Care Physician: Dr. Charan Arndt MD Consultations 08/27/24 19:55 Consult: Mixer Slagman / Pulmonary Medicine Routine Consulting Provider: Intensivists/Pulmonary Med Reason for Consult: acute encephalopathy, suspect opioid overdose EMERGENT Consult: No Notified: Yes Date Notified: 08/27/24 Time Notified: 21:50 Method of Notification: Verbal - Telephone Neurology [Consult: Tele-Neurology] Routine Consulting Provider: [facility] Reason for Consult: acute encephalopathy EMERGENT Consult: No Notified: Yes Date Notified: 08/27/24 Time Notified: 21:50 Method of Notification: Verbal - Telephone Method of Consult:: Telemedicine Nursing Unit Staff Notify [facility] of Tele-Neurology Consult: Yes Reason For Visit: ACUTE ENCEPHALOPATHY POSSIBLE OPOID OVERDOSE Diagnosis Discharge Diagnosis (1) Mental status, decreased: Status: Acute Code(s): R41.82 - Altered mental status, unspecified (2) Unresponsive: Status: Acute Code(s): R41.89 - Other symptoms and signs involving cognitive functions and awareness Plan #Acute encephalopathy of unclear etiology * Admitted after he became confused at home and had butted his dog. He subsequently fell and hit his head against a radiator. * CT of the brain showed no acute intracranial pathology and only shows evidence of old stroke with encephalomalacia * Labs are essentially unremarkable. TSH ordered and pending. Urine tox also pending. Serum alcohol level is low. * with acute encephalopathy, pinpoint pupils and mild respiratory suppression, I am concerned about possible opioid overdose * Patient was given one dose of Narcan in the ED to no avail. According to his he apparently does take methamphetamines. * urine tox negative for opioids but presumptive positive for amphetamines. He is not having any features of amphetamine overdose such as tahyarrhythmia, hyperactivity, hypertension, hyperventilation or confusion. * With patient's lethargy and slow respiratory rate as well as pinpoint pupils, I am concerned about an opioid overdose. I am repeating the dose of Narcan and if he does not respond I will put him on a Narcan drip and admit him in the ICU. * CTA of the head and neck showed no hemodynamically significant stenosis. * Get EEG. Order MRI of the brain. Consult neurology. * ABG showed pH of 7.38, pCO2 of 53.7 ad pO2 of 65. * On Keppra. Hold gabapentin and any other neurotoxic meds. * Ammonia level is 38.6 * consult critical care * start on narcan drip if he does not respond to second dose of narcan in the ED. #Seizure disorder: On Keppra and divalproex. #Stage IV COPD * Apparently patient is on lung lung transplant list at [facility]. * Breathing treatments bronchodilators. Does not appear to be in exacerbation. Titrate oxygen to maintain saturation above 90%. * #History of depression and bipolar disorder: Hold antidepressant and bipolar medication as he is currently n.p.o. DVT prophylaxis: Lovenox CODE STATUS code patient presumptively made full code as he is confused unable to do CODE STATUS discussion. Medications at Discharge Home Medications levetiracetam 500 mg tablet 500 mg PO DAILY Check with primary doctor 04/28/20 divalproex 250 mg tablet,delayed release 750 mg PO BID 03/28/24 ibuprofen 200 mg tablet (Addaprin) 400 mg PO Q8H PRN pain 03/28/24 albuterol sulfate 2.5 mg/3 mL (0.083 %) solution for nebulization 2.5 mg (3 mL) inhalation Q4H PRN #120 vials 04/15/24 fluticasone fur. 200 mcg-umeclid 62.5 mcg-vilant 25 mcg inhalat.powder (Trelegy Ellipta) 1 inh inhalation DAILY #60 ea 04/15/24 Disability Placard #1 ea 06/14/24 fluticasone propionate 50 mcg/actuation nasal spray,suspension 2 spray intranasal DAILY #16 grams 06/14/24 albuterol sulfate 90 mcg/actuation aerosol inhaler 2 puff inhalation Q4H PRN shortness of breath or wheezing #8.5 grams 07/27/24 amitriptyline 100 mg tablet 100 mg PO QHS PRN sleep 07/27/24 ipratropium bromide 42 mcg (0.06 %) nasal spray 2 spray intranasal TID #15 mL 07/27/24 gabapentin 800 mg tablet 800 mg PO TID 08/27/24 guaifenesin 1,200 mg tablet, extended release 12 hr 1,200 mg PO Q12H PRN cough 08/27/24 Hospital Course Operations None Procedures None Summary of Care Provided Minutes Spent on Discharge: 45 Hospital Course: ELIUD BLOUNT, is a 63 M with a PMH as outlined who presents via the ED with a complaint of altered mental status. Pateient could not give much of a history. Per ED doctor, p (more content not included)...[facility]03-15-2025 Consult note Author Sofia Smith [facility] Note Date/Time August 28, 2024 9:3 2am [facility] Medical Records Department [address] [place] [address] Consultation - Neurology 08/28/24 0821 MR#: [id number] Acct: [id number] Name: ELIUD BLOUNT Rep #:[id number] : 1960 63 From: Sofia Smith MD PCP: Dr. Charan Arndt MD Status:ADM I N Location: ICU CVICU20 2-1 Assessment and Plan: Neuro Assessment/Plan ELIUD BLOUNT is a 63 M with a past medical history of seizure on Keppra and depakote, stage IV COPD, tobacco use, stroke, being evaluated by Teleneurology for altered mental status. Possible syncope - reports he was dizzy/lightheaded prior to falling. CTH did not show any acute findings. UDS was positive for meth. MRI Brain was unremarkable. He is now at his baseline. confusion possibly related to mild concussion after hitting his head. Diagnosis: Syncope, concussion Plan: - Orthostatic vitals - if positive would treat with compression stockings and abdominal binder - PT assement - Neurology will sign off I personally attended this patient and spent a total time of 32 minutes evaluating this patient including clinical assessment, review of chart, medical history imaging, and determining appropriate treatment and workup. HPI Consult Data Date of Consult: 08/28/24 HPI Narrative HPI Narrative: ELIUD BLOUNT is a 63 M with a past medical history of seizure on Keppra and depakote, stage IV COPD, tobacco and meth use, stroke, being evaluated by Teleneurology for altered mental status. Yesterday reportedly fell and hit his head on the radiator. Prior to his fall he felt lightheaded and dizzy. Afterwards he seemed confused and was brought to the ED. On arrival CTH showed remote infarcts of the right temporal lobe and parietal lobes, but no acute findings. CTA was without flow limited stenosis. His UDS was positive for meth.He now feels back to normal, no concerns for his thinking. [facility] Medical History Pneumonia Pneumonia Left ankle injury Bilateral tennis elbow Depression Sepsis LACEY (obstructive sleep apnea) Lung nodule Hoarseness Sleep-related breathing disorder Pneumonia Encephalopathy Acute respiratory failure COPD (chronic obstructive pulmonary disease) GERD (gastroesophageal reflux disease) Bipolar disorder Migraine Tobacco abuse Spinal stenosis Traumatic brain injury Home Medications ?Medication ?Instructions ?Recorded ?Last Taken ?Type levetiracetam 500 mg tablet 500 mg PO DAILY Check with primary 04/28/20 03/28/24 History doctor divalproex 250 mg tablet,delayed 750 mg PO BID 4 03/28/24 History release ibuprofen 200 mg tablet (Addaprin) 400 mg PO Q8H PRN p ain 03/28/24 03/28/24 History albuterol sulfate 2.5 mg/3 mL 2.5 mg (3 mL) inhalation Q4H PRN 04/15/24 Unknown Rx (0.083 %) solution for nebulization #120 vials fluticasone fur. 200 mcg-umeclid 1 inh inhalation MOO Y #60 ea 04/15/24 Unknown Rx 62.5 mcg-vilant 25 mcg inhalat.powder (Trelegy Ellipta) Disability Placard #1 ea 06/14/24 Unknown Rx fluticasone propionate 50 2 spray intranasal DAILY #16 grams 06/14/24 Unknown Rx mcg/actuation nasal spray,suspension albuterol sulfate 90 mcg/actuation 2 puff inhalation Q 4H PRN 07/27/24 Unknown Rx aerosol inhaler shortness of breath or wheez ing #8.5 grams amitriptyline 100 mg tablet 100 mg PO QHS PRN sleep Unknown History ipratropium bromide 42 mcg (0.06 2 spray intranasal TI D #15 mL 07/27/24 Unknown Rx %) nasal spray gabapentin 800 mg tablet 800 mg PO TID 08/27/24 Unkno wn History guaifenesin 1,200 mg tablet, 1,200 mg PO Q12H PRN coug h 08/27/24 Unknown History extended release 12 hr Allergy/AdvReac Type Severity Reaction Status Date / Time dextromethorphan HBr (From AdvReac Intermediate tachycardia, Verified 08/27/24 14:30 NyQuil) feels anxious doxylamine (From NyQuil) AdvReac Intermediate Tachycardia, Verified 08/27/24 14:30 feels anxious pseudoephedrine HCl (From AdvReac Intermediate Tachycardia, Verified 08/27/24 14:30 NyQuil) feels anxious sertraline HCl (From Zoloft) AdvReac Diarrhea Verified 08/27/24 14:30 Family History Father Dementia Alzheimers disease Diabetes Mother Diabetes Surgical History History of hernia repair Social History Smoking Status: Heavy Smoker (>10/day) Tobacco: How many years used: 30 second hand exposure: Yes alcohol intake: never substance use type: does not use Vital Signs Vital Signs Vital Signs: 08/27/24 14:22 08/27/24 14:27 08/27/24 14:34 Temperature Temperature Source Pulse Rate 84 Pulse Strength Respiratory Rate 12 Respiratory Effort Normal Non-Labored Respiratory Depth Respiratory Pattern Normal Blood Pressure 119/79 115/54 L Blood Pressure Mean 92 74 Blood Pressure Source Blood Pressure Position Blood Pressure Location Pulse Ox 92 Oxygen Delivery Method Room Air Oxygen Flow Rate (L/min) Fraction of Inspired Oxygen (FIO2) 08/27/24 14:37 08/27/24 15:15 08/27/24 15:48 Temperature 97.6 F L Temperature Source Oral Pulse Rate 82 76 73 Pulse Strength Respiratory Rate 14 12 10 L Respiratory Effort Respiratory Depth Respiratory Pattern Blood Pressure 119/80 103/78 101/74 Blood Pressure Mean 93 86 83 Blood Pressure Source Blood Pressure Position Blood Pressure Location Pulse Ox 93 92 92 Oxygen Delivery Method Room Air Room Air Room Air Oxygen Flow Rate (L/min) Fraction of Inspired Oxygen (FIO2) 08/27/24 16:47 08/27/24 18:14 08/27/24 19:24 Temperature 97.4 F L Temperature Source Pulse Rate 75 72 80 Pulse Strength Respiratory Rate 12 14 12 Respiratory Effort Respiratory Depth Respiratory Pattern Blood Pressure 102/74 124/94 H 127/88 H Blood Pressure Mean 83 104 101 Blood Pressure Source Blood Pressure Position Blood Pressure Location Pulse Ox 92 92 91 Oxygen Delivery Method Room Air Room Air Oxygen Flow Rate (L/min) Fraction of Inspired Oxygen (FIO2) 08/27/24 19:57 08/27/24 20:00 08/27/24 21:00 Temperature 97.8 F Temperature Source Temporal Pulse Rate 70 82 Pulse Strength Respiratory Rate 12 12 Respiratory Effort Normal Non-Labored Respiratory Depth Normal Respiratory Pattern Normal Blood Pressure 140/93 H 136/79 H Blood Pressure Mean 108 98 Blood Pressure Source Monitor Monitor Blood Pressure Position Semi-Fowlers Semi-Fowlers Blood Pressure Location Right Arm Right Arm Pulse Ox 92 100 Oxygen Delivery Method Room Air Nasal Cannula Nasal Cannula Oxygen Flow Rate (L/min) 2 2 Fraction of Inspired Oxygen (FIO2) 99 08/27/24 22:00 08/27/24 23:00 08/28/24 00:00 Temperature 98.0 F Temperature Source Temporal Pulse Rate 75 71 66 Pulse Strength Respiratory Rate 10 L 10 L 10 L Respiratory Effort Respiratory Depth Respiratory Pattern Blood Pressure 150/77 H 132/72 H 169/100 H Blood Pressure Mean 101 92 123 Blood Pressure Source Monitor Monitor Monitor Blood Pressure Position Semi-Fowlers Semi-Fowlers Semi-Fowlers Blood Pressure Location Right Arm Right Arm Right Arm Pulse Ox 100 100 99 Oxygen Delivery Method Nasal Cannula Nasal Cannula Nasal Cannula Oxygen Flow Rate (L/min) 2 2 2 Fraction of Inspired Oxygen (FIO2) 08/28/24 00:00 08/28/24 01:00 08/28/24 01:26 Temperature Temperature Source Pulse Rate 66 78 Pulse Strength Respiratory Rate 10 L 16 Respiratory Effort Normal Non-Labored Respiratory Depth Normal Respiratory Pattern Normal Normal Blood Pressure 166/89 H Blood Pressure Mean 114 Blood Pressure Source Monitor Blood Pressure Position Semi-Fowlers Blood Pressure Location Right Arm Pulse Ox 98 Oxygen Delivery Method Nasal Cannula Nasal Cannula Oxygen Flow Rate (L/min) 2 2 Fraction of Inspired Oxygen (FIO2) 99 08/28/24 02:00 08/28/24 03:00 08/28/24 04:00 Temperature 97.7 F L Temperature Source Temporal Pulse Rate 74 76 66 Pulse Strength Respiratory Rate 12 10 L 11 L Respiratory Effort Respiratory Depth Respiratory Pattern Blood Pressure 152/98 H 162/98 H 158/98 H Blood Pressure Mean 116 119 118 Blood Pressure Source Monitor Monitor Monitor Blood Pressure Position Semi-Fowlers Semi-Fowlers Semi-Fowlers Blood Pressure Location Right Arm Right Arm Right Arm Pulse Ox 97 94 95 Oxygen Delivery Method Nasal Cannula Nasal Cannula Nasal Cannula Oxygen Flow Rate (L/min) 2 2 2 Fraction of Inspired Oxygen (FIO2) 08/28/24 04:00 08/28/24 05:00 08/28/24 06:00 Temperature Temperature Source Pulse Rate 84 86 Pulse Strength Respiratory Rate 12 15 Respiratory Effort Normal Non-Labored Respiratory Depth Normal Respiratory Pattern Normal Blood Pressure 167/104 H 161/99 H Blood Pressure Mean 125 119 Blood Pressure Source Monitor Monitor Blood Pressure Position Semi-Fowlers Semi-Fowlers Blood Pressure Location Right Arm Right Arm Pulse Ox 96 94 Oxygen Delivery Method Room Air Room Air Room Air Oxygen Flow Rate (L/min) Fraction of Inspired Oxygen (FIO2) 08/28/24 07:00 08/28/24 07:00 08/28/24 07:51 Temperature Temperature Source Pulse Rate 76 74 Pulse Strength Normal (2+) Respiratory Rate 16 Respiratory Effort Respiratory Depth Respiratory Pattern Blood Pressure 153/96 H Blood Pressure Mean 115 Blood Pressure Source Monitor Blood Pressure Position Semi-Fowlers Blood Pressure Location Right Arm Pulse Ox 97 Oxygen Delivery Method Room Air Oxygen Flow Rate (L/min) Fraction of Inspired Oxygen (FIO2) Weight Weight: 55.1 kg Body Mass Index (BMI) 18.3 EEG Results Procedure Details EEG Procedure Details: ELIUD BLOUNT is a 63 year old M with a past medical history of , who presents for evaluation of Electroencephalogram on DATE at TIME Physical Exam Neuro oriented x3 and CN's II-XII intact bilaterally Sensorium / Orientation: awake, alert, oriented to person, oriented to place andoriented to time Cranial Nerves: CN normal except as noted Coordination / Balance: [id number] test normal and fkel-wz-wdeg test normal Speech: speech normal Gait (Neuro): normal gait Motor Exam: strength 5/5 throughout Lab / Micro Data 08/27/24 14:10 08/27/24 14:10 Labs: Laboratory Results - last 24 hr 08/27/24 14:10: WBC 4.5, RBC 4.38 L, Hgb 13.2, Hct 40.2, MCV 91.8, MCH 30.1, MCHC 32.8, RDW Std Deviation 44.0 H, RDW Coeff of Aaron 13.1, Plt Count 262, MPV 9.0, Immature Gran % (Auto) 0.200, Neut % (Auto) 43.2 L, Lymph % (Auto) 43.8 H, Bond % (Auto) 9.7, Eos % (Auto) 2.2, Baso % (Auto) 0.9, Absolute Neuts (auto) 2.0, Absolute Lymphs (auto) 1.99, Nucleated RBC % 0, PT 13.9, INR 1.1, APTT 31.6, Sodium 138, Potassium 3.6, Chloride 100, Carbon Dioxide 26.6, Anion Gap 11, BUN 22 H, Creatinine 0.73, Estim Creat Clear Calc 84.17, Est GFR (MDRD) Non-Af 103, BUN/Creatinine Ratio 30.2 H, Glucose 147 H, Calcium 8.8, Troponin T HighSens 23 H, TSH 1.320, Ethyl Alcohol < 10.1 08/27/24 15:30: Urine Opiates Screen NEGATIVE, U Buprenorphine Qual NEGATIVE, UrOxycodone Screen NEGATIVE, Urine Methadone Screen NEGATIVE, Urine Fentanyl Screen NEGATIVE, Ur Barbiturates Screen NEGATIVE, Ur Phencyclidine Scrn NEGATIVE, Ur Amphetamines Screen PRESUMTIVE POSITIVE, U Benzodiazepines Scrn NEGATIVE, Urine Cocaine Screen NEGATIVE, U Cannabinoids Screen NEGATIVE 08/27/24 16:25: Troponin T Hi Sens 2 Hr 33 H 08/27/24 16:43: Ammonia 38.6 08/27/24 19:00: Troponin T Hi Sens 4Hr 18 ABG Data ABG results: ABG 08/27/24 14:43 Specimen Type ART Sample Site L Brach pH 7.38 Bicarbonate Actual 31.9 H Total CO2 34 Base Excess 7 H O2 Saturation 91 L ABG pCO2 53.7 H ABG pO2 65 L O2 Delivery Device Room Air Vent Mode Not entered Imaging Radiology Impression Brain CT 08/27/24 14:22 IMPRESSION: No acute stroke is seen. Red Alert: No acute stroke is seen. The critical information above was relayed directly by me by telephone to Miguel Ángel Liao on 08/27/2024 at 2:36 pm with readback verification. Reading Location: [facility]IR-1 Head/Neck CTA 03/14/25 14:25 IMPRESSION: RIGHT CAROTID: Minimal plaque at the origin of the right internal carotid artery. LEFT CAROTID: Unremarkable VERTEBRALS: Unremarkable INTRACRANIAL: Unremarkable One or more dose reduction techniques were used (e.g., Automated exposure control, adjustment of the mA and/or kV according to patient size, use of iterative reconstruction technique). Red Alert: The critical information above was relayed directly by me by telephone to Miguel Ángel Liao on 08/27/2024 at 2:50 pm with readback verification. Reading Location: [facility]IR-1 Chest X-Ray 08/27/24 14:55 IMPRESSION: Stable examination. Reading Location: [facility]IR-1 Brain MRI 08/27/24 19:55 IMPRESSION: 1. chronic microvascular ischemic disease. 2. Otherwise, unremarkable MRI of the brain without and with contrast. REASON FOR EXAM: No acute intracranial abnormality. Chronic microvascular ischemia and involutional changes. No suspicious intracranial mass, abnormal parenchymal or leptomeningeal enhancement COMPARISON: None. Reading [facility] Active Medications Active Medications Active Medications: Current Medications Generic Name Dose Route Start Last Admin Trade Name Freq PRN Reason Stop Dose Admin Albuterol Sulfate 2.5 mg 08/27/24 19:59 08/28/24 01:26 Albuterol 2.5 Mg/3 Ml Vial.Neb. INHALATION 2.5 mg Q4H PRN Administration shortness of breath or wheezing Albuterol/Ipratropium 3 ml 08/28/24 00:51 Ipratropium/Albuterol Sulfate 3 Ml Ampul.Neb INHALATION Q4H PRN PRN COUGH/CONGESTION Enoxaparin Sodium 40 mg 08/28/24 10:00 Enoxaparin 40 Mg/0.4 Ml Syringe SC DAILY TOMASA Sodium Chloride 100 mls @ 15 mls/hr 08/27/24 20:01 IV .Q6H40M PRN Saline Flush Sodium Chloride 100 mls @ 15 mls/hr 08/27/24 20:01 IV .Q6H40M PRN Additional IVPB Infusion Lactated Ringer's 1,000 mls @ 75 mls/hr 08/28/24 01:00 08/28/24 02:07 IV 75 mls/hr .[id number] TOMASA Administration Iopamidol 0 ml 08/27/24 19:55 08/27/24 20:42 Contrast Allergy Safety Check IV Not Given X1 TOMASA Labetalol HCl 20 mg 08/27/24 14:22 Labetalol 20mg/4ml Syringe IV 08/28/24 14:22 X1 PRN Blood Pressure Sodium Chloride 10 - 40 ml 08/27/24 20:01 0.9% Saline Lock 10 Ml Syringe IV UD PRN SALINE FLUSH 08/28/24 0932 <Electronically signed by Sofia Smith MD> Cosigner Signature (if applicable): CC: Dr. Charan Arndt MD~ Signed [facility] Work Phone: [phone] Consult note [facility] Medical Records Department [address] [place] [address] Consultation - Neurology 08/28/24 0821 MR#: [id number] Acct: [id number] Name: ELIUD BLOUNT Rep #:[id number] : 1960 63 From: Sofia Smith MD PCP: Dr. Charan Arndt MD Status:ADM I N Location: ICU CVICU20 2-1 Assessment and Plan: Neuro Assessment/Plan ELIUD BLOUNT is a 63 M with a past medical history of seizure on Keppra and depakote, stage IV COPD, tobacco use, stroke, being evaluated by Teleneurology for altered mental status. Possible syncope- reports he was dizzy/lightheaded prior to falling. CTH did not show any acute findings. UDS was positive for meth. MRI Brain was unremarkable. He is now at his baseline. confusion possibly related to mild concussion after hitting his head. Diagnosis: Syncope, concussion Plan: - Orthostatic vitals - if positive would treat with compression stockings and abdominal binder - PT assement - Neurology will sign off I personally attended this patient and spent a total time of 32 minutes evaluating this patient including clinical assessment, review of chart, medical history imaging, and determining appropriate treatment and workup. HPI Consult Data Date of Consult: 08/28/24 HPI Narrative HPI Narrative: ELIUD BLOUNT, is a 63 M with a past medical history of seizure on Keppra and depakote, stage IV COPD, tobacco and meth use, stroke, being evaluated by Teleneurology for altered mental status. Yesterday reportedly fell and hit his head on the radiator. Prior to his fall he felt lightheaded and dizzy.Afterwards he seemed confused and was brought to the ED. On arrival CTH showed remote infarcts of the right temporal lobe and parietal lobes, but no acute findings. CTA was without flow limited stenosis. His UDS was positive for meth.He now feels back to normal, no concerns for his thinking. [facility] Medical History Pneumonia Pneumonia Left ankle injury Bilateral tennis elbow Depression Sepsis LACEY (obstructive sleep apnea) Lung nodule Hoarseness Sleep-related breathing disorder Pneumonia Encephalopathy Acute respiratory failure COPD (chronic obstructive pulmonary disease) GERD (gastroesophageal reflux disease) Bipolar disorder Migraine Tobacco abuse Spinal stenosis Traumatic brain injury Home Medications ?Medication ?Instructions ?Recorded ?Last Taken ?Type levetiracetam 500 mg tablet 500 mg PO DAILY Check with primary 04/28/20 03/28/24 History doctor divalproex 250 mg tablet,delayed 750 mg PO BID 4 03/28/24 History release ibuprofen 200 mg tablet (Addaprin) 400 mg PO Q8H PRN p ain 03/28/24 03/28/24 History albuterol sulfate 2.5 mg/3 mL 2.5 mg (3 mL) inhalation Q4H PRN 04/15/24 Unknown Rx (0.083 %) solution for nebulization #120 vials fluticasone fur. 200 mcg-umeclid 1 inh inhalation MOO Y #60 ea 04/15/24 Unknown Rx 62.5 mcg-vilant 25 mcg inhalat.powder (Trelegy Ellipta) Disability Placard #1 ea 06/14/24 Unknown Rx fluticasone propionate 50 2 spray intranasal DAILY #16 grams 06/14/24 Unknown Rx mcg/actuation nasal spray,suspension albuterol sulfate 90 mcg/actuation 2 puff inhalation Q 4H PRN 07/27/24 Unknown Rx aerosol inhaler shortness of breath or wheez ing #8.5 grams amitriptyline 100 mg tablet 100 mg PO QHS PRN sleep Unknown History ipratropium bromide 42 mcg (0.06 2 spray intranasal TI D #15 mL 07/27/24 Unknown Rx %) nasal spray gabapentin 800 mg tablet 800 mg PO TID 08/27/24 Unkno wn History guaifenesin 1,200 mg tablet, 1,200 mg PO Q12H PRN coug h 08/27/24 Unknown History extended release 12 hr Allergy/AdvReac Type Severity Reaction Status Date / Time dextromethorphan HBr (From AdvReac Intermediate tachycardia, Verified 08/27/24 14:30 NyQuil) feels anxious doxylamine (From NyQuil) AdvReac Intermediate Tachycardia, Verified 08/27/24 14:30 feels anxious pseudoephedrine HCl (From AdvReac Intermediate Tachycardia, Verified 08/27/24 14:30 NyQuil) feels anxious sertraline HCl (From Zoloft) AdvReac Diarrhea Verified 08/27/24 14:30 Family History Father Dementia Alzheimers disease Diabetes Mother Diabetes Surgical History History of hernia repair Social History Smoking Status: Heavy Smoker (>10/day) Tobacco: How many years used: 30 second hand exposure: Yes alcohol intake: never substance use type: does not use Vital Signs Vital Signs Vital Signs: 08/27/24 14:22 08/27/24 14:27 08/27/24 14:34 Temperature Temperature Source Pulse Rate 84 Pulse Strength Respiratory Rate 12 Respiratory Effort Normal Non-Labored Respiratory Depth Respiratory Pattern Normal Blood Pressure 119/79 115/54 L Blood Pressure Mean 92 74 Blood Pressure Source Blood Pressure Position Blood Pressure Location Pulse Ox 92 Oxygen Delivery Method Room Air Oxygen Flow Rate (L/min) Fraction of Inspired Oxygen (FIO2) 08/27/24 14:37 08/27/24 15:15 08/27/24 15:48 Temperature 97.6 F L Temperature Source Oral Pulse Rate 82 76 73 Pulse Strength Respiratory Rate 14 12 10 L Respiratory Effort Respiratory Depth Respiratory Pattern Blood Pressure 119/80 103/78 101/74 Blood Pressure Mean 93 86 83 Blood Pressure Source Blood Pressure Position Blood Pressure Location Pulse Ox 93 92 92 Oxygen Delivery Method Room Air Room Air Room Air Oxygen Flow Rate (L/min) Fraction of Inspired Oxygen (FIO2) 08/27/24 16:47 08/27/24 18:14 08/27/24 19:24 Temperature 97.4 F L Temperature Source Pulse Rate 75 72 80 Pulse Strength Respiratory Rate 12 14 12 Respiratory Effort Respiratory Depth Respiratory Pattern Blood Pressure 102/74 124/94 H 127/88 H Blood Pressure Mean 83 104 101 Blood Pressure Source Blood Pressure Position Blood Pressure Location Pulse Ox 92 92 91 Oxygen Delivery Method Room Air Room Air Oxygen Flow Rate (L/min) Fraction of Inspired Oxygen (FIO2) 08/27/24 19:57 08/27/24 20:00 08/27/24 21:00 Temperature 97.8 F Temperature Source Temporal Pulse Rate 70 82 Pulse Strength Respiratory Rate 12 12 Respiratory Effort Normal Non-Labored Respiratory Depth Normal Respiratory Pattern Normal Blood Pressure 140/93 H 136/79 H Blood Pressure Mean 108 98 Blood Pressure Source Monitor Monitor Blood Pressure Position Semi-Fowlers Semi-Fowlers Blood Pressure Location Right Arm Right Arm Pulse Ox 92 100 Oxygen Delivery Method Room Air Nasal Cannula Nasal Cannula Oxygen Flow Rate (L/min) 2 2 Fraction of Inspired Oxygen (FIO2) 99 08/27/24 22:00 08/27/24 23:00 08/28/24 00:00 Temperature 98.0 F Temperature Source Temporal Pulse Rate 75 71 66 Pulse Strength Respiratory Rate 10 L 10 L 10 L Respiratory Effort Respiratory Depth Respiratory Pattern Blood Pressure 150/77 H 132/72 H 169/100 H Blood Pressure Mean 101 92 123 Blood Pressure Source Monitor Monitor Monitor Blood Pressure Position Semi-Fowlers Semi-Fowlers Semi-Fowlers Blood Pressure Location Right Arm Right Arm Right Arm Pulse Ox 100 100 99 Oxygen Delivery Method Nasal Cannula Nasal Cannula Nasal Cannula Oxygen Flow Rate (L/min) 2 2 2 Fraction of Inspired Oxygen (FIO2) 08/28/24 00:00 08/28/24 01:00 08/28/24 01:26 Temperature Temperature Source Pulse Rate 66 78 Pulse Strength Respiratory Rate 10 L 16 Respiratory Effort Normal Non-Labored Respiratory Depth Normal Respiratory Pattern Normal Normal Blood Pressure 166/89 H Blood Pressure Mean 114 Blood Pressure Source Monitor Blood Pressure Position Semi-Fowlers Blood Pressure Location Right Arm Pulse Ox 98 Oxygen Delivery Method Nasal Cannula Nasal Cannula Oxygen Flow Rate (L/min) 2 2 Fraction of Inspired Oxygen (FIO2) 99 08/28/24 02:00 08/28/24 03:00 08/28/24 04:00 Temperature 97.7 F L Temperature Source Temporal Pulse Rate 74 76 66 Pulse Strength Respiratory Rate 12 10 L 11 L Respiratory Effort Respiratory Depth Respiratory Pattern Blood Pressure 152/98 H 162/98 H 158/98 H Blood Pressure Mean 116 119 118 Blood Pressure Source Monitor Monitor Monitor Blood Pressure Position Semi-Fowlers Semi-Fowlers Semi-Fowlers Blood Pressure Location Right Arm Right Arm Right Arm Pulse Ox 97 94 95 Oxygen Delivery Method Nasal Cannula Nasal Cannula Nasal Cannula Oxygen Flow Rate (L/min) 2 2 2 Fraction of Inspired Oxygen (FIO2) 08/28/24 04:00 08/28/24 05:00 08/28/24 06:00 Temperature Temperature Source Pulse Rate 84 86 Pulse Strength Respiratory Rate 12 15 Respiratory Effort Normal Non-Labored Respiratory Depth Normal Respiratory Pattern Normal Blood Pressure 167/104 H 161/99 H Blood Pressure Mean 125 119 Blood Pressure Source Monitor Monitor Blood Pressure Position Semi-Fowlers Semi-Fowlers Blood Pressure Location Right Arm Right Arm Pulse Ox 96 94 Oxygen Delivery Method Room Air Room Air Room Air Oxygen Flow Rate (L/min) Fraction of Inspired Oxygen (FIO2) 08/28/24 07:00 08/28/24 07:00 08/28/24 07:51 Temperature Temperature Source Pulse Rate 76 74 Pulse Strength Normal (2+) Respiratory Rate 16 Respiratory Effort Respiratory Depth Respiratory Pattern Blood Pressure 153/96 H Blood Pressure Mean 115 Blood Pressure Source Monitor Blood Pressure Position Semi-Fowlers Blood Pressure Location Right Arm Pulse Ox 97 Oxygen Delivery Method Room Air Oxygen Flow Rate (L/min) Fraction of Inspired Oxygen (FIO2) Weight Weight: 55.1 kg Body Mass Index (BMI) 18.3 EEG Results Procedure Details EEG Procedure Details: ELIUD BLOUNT is a 63 year old M with a past medical history of , who presents for evaluation ofElectroencephalogram on DATE at TIME Physical Exam Neuro oriented x3 and CN's II-XII intact bilaterally Sensorium / Orientation: awake, alert, oriented to person, oriented to place andoriented to time Cranial Nerves: CN normal except as noted Coordination / Balance: [id number] test normal and znox-db-dpab test normal Speech: speech normal Gait (Neuro): normal gait Motor Exam: strength 5/5 throughout Lab / Micro Data 08/27/24 14:10 08/27/24 14:10 Labs: Laboratory Results - last 24 hr 08/27/24 14:10: WBC 4.5, RBC 4.38 L, Hgb 13.2, Hct 40.2, MCV 91.8, MCH 30.1, MCHC 32.8, RDW Std Deviation 44.0 H, RDW Coeff of Aaron 13.1, Plt Count 262, MPV 9.0, Immature Gran % (Auto) 0.200, Neut % (Auto) 43.2 L, Lymph % (Auto) 43.8 H, Bond % (Auto) 9.7, Eos % (Auto) 2.2, Baso % (Auto) 0.9, Absolute Neuts (auto) 2.0, Absolute Lymphs (auto) 1.99, Nucleated RBC % 0, PT 13.9, INR 1.1, APTT 31.6, Sodium 138, Potassium 3.6, Chloride 100, Carbon Dioxide 26.6, Anion Gap 11, BUN 22 H, Creatinine 0.73, Estim Creat Clear Calc 84.17, Est GFR (MDRD) Non- Af 103, BUN/Creatinine Ratio 30.2 H, Glucose 147 H,Calcium 8.8, Troponin T HighSens 23 H, TSH 1.320, Ethyl Alcohol < 10.1 08/27/24 15:30: Urine Opiates Screen NEGATIVE, U Buprenorphine Qual NEGATIVE, UrOxycodone Screen NEGATIVE, Urine Methadone Screen NEGATIVE, Urine Fentanyl Screen NEGATIVE, Ur Barbiturates Screen NEGATIVE, Ur Phencyclidine Scrn NEGATIVE, Ur Amphetamines Screen PRESUMTIVE POSITIVE, U Benzodiazepines Scrn NEGATIVE, Urine Cocaine Screen NEGATIVE, U Cannabinoids Screen NEGATIVE 08/27/24 16:25: Troponin T Hi Sens 2 Hr 33 H 08/27/24 16:43: Ammonia 38.6 08/27/24 19:00: Troponin T Hi Sens 4Hr 18 ABG Data ABG results: ABG 08/27/24 14:43 Specimen Type ART Sample Site L Brach pH 7.38 Bicarbonate Actual 31.9 H Total CO2 34 Base Excess 7 H O2 Saturation 91 L ABG pCO2 53.7 H ABG pO2 65 L O2 Delivery Device Room Air Vent Mode Not entered Imaging Radiology Impression Brain CT 08/27/24 14:22 IMPRESSION: No acute stroke is seen. Red Alert: No acute stroke is seen. The critical information above was relayed directly by me by telephone to Miguel Ángel Liao on 08/27/2024 at 2:36 pm with readback verification. Reading Location: [facility] Head/Neck CTA 08/27/24 14:25 IMPRESSION: RIGHT CAROTID: Minimal plaque at the origin of the right internal carotid artery. LEFT CAROTID: Unremarkable VERTEBRALS: Unremarkable INTRACRANIAL: Unremarkable One or more dose reduction techniques were used (e.g., Automated exposure control, adjustment of the mA and/or kV according to patient size, use of iterative reconstruction technique). Red Alert: The critical information above was relayed directly by me by telephone to Miguel Ángel Liao on 08/27/2024 at 2:50 pm with readback verification. Reading Location: [facility] Chest X-Ray 08/27/24 14:55 IMPRESSION: Stable examination. Reading Location: [facility]- Brain MRI 08/27/24 19:55 IMPRESSION: 1. chronic microvascular ischemic disease. 2. Otherwise, unremarkable MRI of the brain without and with contrast. REASON FOR EXAM: No acute intracranial abnormality. Chronic microvascular ischemia and involutional changes. No suspicious intracranial mass, abnormal parenchymal or leptomeningeal enhancement COMPARISON: None. Reading [facility] Active Medications Active Medications Active Medications: Current Medications Generic Name Dose Route Start Last Admin Trade Name Freq PRN Reason Stop Dose Admin Albuterol Sulfate 2.5 mg 08/27/24 19:59 08/28/24 01:26 Albuterol 2.5 Mg/3 Ml Vial.Neb. INHALATION 2.5 mg Q4H PRN Administration shortness of breath or wheezing Albuterol/Ipratropium 3 ml 08/28/24 00:51 Ipratropium/Albuterol Sulfate 3 Ml Ampul.Neb INHALATION Q4H PRN PRN COUGH/CONGESTION Enoxaparin Sodium 40 mg 08/28/24 10:00 Enoxaparin 40 Mg/0.4 Ml Syringe SC DAILY TOMASA Sodium Chloride 100 mls @ 15 mls/hr 08/27/24 20:01 IV .Q6H40M PRN Saline Flush Sodium Chloride 100 mls @ 15 mls/hr 08/27/24 20:01 IV .Q6H40M PRN Additional IVPB Infusion Lactated Ringer's 1,000 mls @ 75 mls/hr 08/28/24 01:00 08/28/24 02:07 IV 75 mls/hr .[id number] TOMASA Administration Iopamidol 0 ml 08/27/24 19:55 08/27/24 20:42 Contrast Allergy Safety Check IV Not Given X1 TOMASA Labetalol HCl 20 mg 08/27/24 14:22 Labetalol 20mg/4ml Syringe IV 08/28/24 14:22 X1 PRN Blood Pressure Sodium Chloride 10 - 40 ml 08/27/24 20:01 0.9% Saline Lock 10 Ml Syringe IV UD PRN SALINE FLUSH 08/28/24 0932 Cosigner Signature (if applicable): CC: Dr. Charan Arndt MD~ Signed [facility]03-15-2025 Consult note Author Krishan Calzada [facility] Note Date/Time August 28, 2024 1:0 6am [facility] Medical Records Department [address] [place] [address] Consultation - Mixer Slagman 08/28/24 0053 MR#: [id number] Acct: [id number] Name: ELIUD BLOUNT Rep #:[id number] : 1960 63 From: Krishan Calzada MD PCP: Dr. Charan Arndt MD Status:ADM I N Location: ICU CVICU20 2-[address] Krishan Calzada MD on 08/28/24 at 0106 Addendum We will follow peripherally 08/28/24 0106<Electronically signed by Krishan Calzada MD> Cosigner Signature (if applicable): cc: Dr. Charan Arndt MD ~* Signed HPI Consult Data Date of Consult: 08/28/24 HPI Narrative HPI Narrative: Mr. Blount is a 63 year-old gentleman with COPD, chronic hypercapnic respiratory failure, methamphetamine abuse/dependence, and a prior TBI who presents with altered mental status. He was recently observed by his family to have gait instability, and he did have a fall, hitting his head on the radiator. Upon arrival to [place], his laboratory data revealed a slightly elevated Cr and a positive UDS for methamphetamines, and his imaging was unremarkable. He did undergo an MRI which was unremarkable. On my examination, he is easily awoken, and alert and oriented when awake. He currently denies any fevers, chills, nausea, vomiting, diarrhea, syncope, presyncope, visual changes, orthopnea, PND,odynophagia, dysphagia, chest pain, shortness of breath, belly pain, dysuria, hematuria, melena, hematochezia, or neurological changes. All other systems werereviewed and were negative. [facility] Medical History (Updated 08/27/24 @ 16:49 by Miguel Ángel Liao MD) Pneumonia Pneumonia Left ankle injury Bilateral tennis elbow Depression Sepsis LACEY (obstructive sleep apnea) Lung nodule Hoarseness Sleep-related breathing disorder Pneumonia Encephalopathy Acute respiratory failure COPD (chronic obstructive pulmonary disease) GERD (gastroesophageal reflux disease) Bipolar disorder Migraine Tobacco abuse Spinal stenosis Traumatic brain injury Home Medications ?Medication ?Instructions ?Recorded ?Last Taken ?Type levetiracetam 500 mg tablet 500 mg PO DAILY Check with primary 04/28/20 03/28/24 History doctor divalproex 250 mg tablet,delayed 750 mg PO BID 4 03/28/24 History release ibuprofen 200 mg tablet (Addaprin) 400 mg PO Q8H PRN p ain 03/28/24 03/28/24 History albuterol sulfate 2.5 mg/3 mL 2.5 mg (3 mL) inhalation Q4H PRN 04/15/24 Unknown Rx (0.083 %) solution for nebulization #120 vials fluticasone fur. 200 mcg-umeclid 1 inh inhalation MOO Y #60 ea 04/15/24 Unknown Rx 62.5 mcg-vilant 25 mcg inhalat.powder (Trelegy Ellipta) Disability Placard #1 ea 06/14/24 Unknown Rx fluticasone propionate 50 2 spray intranasal DAILY #16 grams 06/14/24 Unknown Rx mcg/actuation nasal spray,suspension albuterol sulfate 90 mcg/actuation 2 puff inhalation Q 4H PRN 07/27/24 Unknown Rx aerosol inhaler shortness of breath or wheez ing #8.5 grams amitriptyline 100 mg tablet 100 mg PO QHS PRN sleep Unknown History ipratropium bromide 42 mcg (0.06 2 spray intranasal TI D #15 mL 07/27/24 Unknown Rx %) nasal spray gabapentin 800 mg tablet 800 mg PO TID 08/27/24 Unkno wn History guaifenesin 1,200 mg tablet, 1,200 mg PO Q12H PRN coug h 08/27/24 Unknown History extended release 12 hr Allergy/AdvReac Type Severity Reaction Status Date / Time dextromethorphan HBr (From AdvReac Intermediate tachycardia, Verified 08/27/24 14:30 NyQuil) feels anxious doxylamine (From NyQuil) AdvReac Intermediate Tachycardia, Verified 08/27/24 14:30 feels anxious pseudoephedrine HCl (From AdvReac Intermediate Tachycardia, Verified 08/27/24 14:30 NyQuil) feels anxious sertraline HCl (From Zoloft) AdvReac Diarrhea Verified 08/27/24 14:30 Family History Father Dementia Alzheimers disease Diabetes Mother Diabetes Surgical History History of hernia repair Social History Smoking Status: Heavy Smoker (>10/day) Tobacco: How many years used: 30 second hand exposure: Yes alcohol intake: never substance use type: does not use ROS ROS Narrative As per HPI Objective Data Objective Data Vital Signs: Vital Signs Last response 3 Temperature 36.7 C 08/28/24 00:00 Temperature Source Temporal 08/28/24 00:00 Pulse Rate 66 08/28/24 00:00 Respiratory Rate 10 L 08/28/24 00:00 Respiratory Effort Normal, Non-Labored 08/28/24 00:00 Respiratory Depth Normal 08/28/24 00:00 Respiratory Pattern Normal 08/28/24 00:00 Blood Pressure 169/100 H 08/28/24 00:00 Blood Pressure Mean 123 08/28/24 00:00 Blood Pressure Source Monitor 08/28/24 00:00 Blood Pressure Position Semi-Fowlers 08/28/24 00:00 Blood Pressure Location Right Arm 08/28/24 00:00 Pulse Ox 99 08/28/24 00:00 Oxygen Delivery Method Nasal Cannula 08/28/24 00:00 Oxygen Flow Rate (L/min) 2 08/28/24 00:00 Fraction of Inspired Oxygen (FIO2) 99 08/28/24 00:00 I&O: I&O Last 24 Hours 3 08/27/24 08/27/24 08/28/24 11:59 23:59 11:59 Intake Total 0 / 0 Output Total 275 / 275 Balance -275 / -275 I&O: Total Stay 3 08/27/24 14:21 thru 08/27/24 23:50 Intake Total 0 Output Total 275 Balance -275 Current Meds Ordered / Administered: Current meds ordered / Administered 3 Generic Name Dose Route Start Last Admin Trade Name Freq PRN Reason Stop Dose Admin Albuterol Sulfate 2.5 mg 08/27/24 19:59 Albuterol 2.5 Mg/3 Ml Vial.Neb. INHALATION Q4H PRN shortness of breath or wheezing Albuterol/Ipratropium 3 ml 08/28/24 00:51 Ipratropium/Albuterol Sulfate 3 Ml Ampul.Neb INHALATION Q4H.RT PRN COUGH/CONGESTION Enoxaparin Sodium 40 mg 08/28/24 10:00 Enoxaparin 40 Mg/0.4 Ml Syringe SC DAILY TOMASA Sodium Chloride 100 mls @ 15 mls/hr 08/27/24 20:01 IV .Q6H40M PRN Saline Flush Sodium Chloride 100 mls @ 15 mls/hr 08/27/24 20:01 IV .Q6H40M PRN Additional IVPB Infusion Lactated Ringer's 1,000 mls @ 75 mls/hr 08/28/24 01:00 IV .[id number] TOMASA Iopamidol 0 ml 08/27/24 19:55 08/27/24 20:42 Contrast Allergy Safety Check IV Not Given X1 TOMASA Labetalol HCl 20 mg 08/27/24 14:22 Labetalol 20mg/4ml Syringe IV 08/28/24 14:22 X1 PRN Blood Pressure Sodium Chloride 10 - 40 ml 08/27/24 20:01 0.9% Saline Lock 10 Ml Syringe IV UD PRN SALINE FLUSH Physical Exam Narrative GENERAL: NAD; A/O x 4; no distress HEENT: PERRLA; EOMI; anicteric NECK: soft, supple, no RAYMON; no JVP; no TM CV: RRR; -m/r/g RESP: SLIGHT WHEEZING ABD: soft, NT, ND, ABS x 4 EXT: WWP; no C/C/E NEURO: 5/5 Motor and Sensory; CN II - XII Intact Lab / Micro Data 08/27/24 14:10 08/27/24 14:10 Labs: Laboratory Results - last 24 hr 08/27/24 14:10: WBC 4.5, RBC 4.38 L, Hgb 13.2, Hct 40.2, MCV 91.8, MCH 30.1, MCHC 32.8, RDW Std Deviation 44.0 H, RDW Coeff of Aaron 13.1, Plt Count 262, MPV 9.0, Immature Gran % (Auto) 0.200, Neut % (Auto) 43.2 L, Lymph % (Auto) 43.8 H, Bond % (Auto) 9.7, Eos % (Auto) 2.2, Baso % (Auto) 0.9, Absolute Neuts (auto) 2.0, Absolute Lymphs (auto) 1.99, Nucleated RBC % 0, PT 13.9, INR 1.1, APTT 31.6, Sodium 138, Potassium 3.6, Chloride 100, Carbon Dioxide 26.6, Anion Gap 11, BUN 22 H, Creatinine 0.73, Estim Creat Clear Calc 84.17, Est GFR (MDRD) Non-Af 103, BUN/Creatinine Ratio 30.2 H, Glucose 147 H, Calcium 8.8, Troponin T HighSens 23 H, TSH 1.320, Ethyl Alcohol < 10.1 08/27/24 15:30: Urine Opiates Screen NEGATIVE, U Buprenorphine Qual NEGATIVE, UrOxycodone Screen NEGATIVE, Urine Methadone Screen NEGATIVE, Urine Fentanyl Screen NEGATIVE, Ur Barbiturates Screen NEGATIVE, Ur Phencyclidine Scrn NEGATIVE, Ur Amphetamines Screen PRESUMTIVE POSITIVE, U Benzodiazepines Scrn NEGATIVE, Urine Cocaine Screen NEGATIVE, U Cannabinoids Screen NEGATIVE 08/27/24 16:25: Troponin T Hi Sens 2 Hr 33 H 08/27/24 16:43: Ammonia 38.6 08/27/24 19:00: Troponin T Hi Sens 4Hr 18 ABG Data ABG results: ABG 08/27/24 14:43 Specimen Type ART Sample Site L Brach pH 7.38 Bicarbonate Actual 31.9 H Total CO2 34 Base Excess 7 H O2 Saturation 91 L ABG pCO2 53.7 H ABG pO2 65 L O2 Delivery Device Room Air Vent Mode Not entered Imaging Radiology Impression Brain CT 08/27/24 14:22 IMPRESSION: No acute stroke is seen. Red Alert: No acute stroke is seen. The critical information above was relayed directly by me by telephone to Miguel Ángel Liao on 08/27/2024 at 2:36 pm with readback verification. Reading Location: [facility] Head/Neck CTA 08/27/24 14:25 IMPRESSION: RIGHT CAROTID: Minimal plaque at the origin of the right internal carotid artery. LEFT CAROTID: Unremarkable VERTEBRALS: Unremarkable INTRACRANIAL: Unremarkable One or more dose reduction techniques were used (e.g., Automated exposure control, adjustment of the mA and/or kV according to patient size, use of iterative reconstruction technique). Red Alert: The critical information above was relayed directly by me by telephone to Miguel Ángel Liao on 08/27/2024 at 2:50 pm with readback verification. Reading Location: [facility] Chest X-Ray 08/27/24 14:55 IMPRESSION: Stable examination. Reading Location: [facility] Brain MRI 08/27/24 19:55 IMPRESSION: 1. chronic microvascular ischemic disease. 2. Otherwise, unremarkable MRI of the brain without and with contrast. REASON FOR EXAM: No acute intracranial abnormality. Chronic microvascular ischemia and involutional changes. No suspicious intracranial mass, abnormal parenchymal or leptomeningeal enhancement COMPARISON: None. Reading Location: [facility] Assessment and Plan . Assessment and plan: ASSESSMENT 1. Altered Mental Status 2. Methamphetamine Intoxication 3. Acute Kidney Injury 4. Chronic Obstructive Pulmonary Disease 5. Chronic Hypercapnic Respiratory Failure 6. Prior Traumatic Brain Injury 7. Methamphetamine Abuse/Dependence PLAN 1. Mental status markedly improved 2. CTA Head/Neck, CT head, MRI all unremarkable 3. Fluids 4. Duonebs 5. PT evaluation in AM Lovenox The entirety of this encounter was done via telemedicine with audio and visual. Consent was obtained for a telemedicine encounter. Krishan Calzada MD Pulmonary and Critical Care Medicine 08/28/24 0104 <Electronically signed by Krishan Calzada MD> Cosigner Signature (if applicable): CC: Dr. Charan Arndt MD~ Signed [facility] Work Phone: [phone] Consult note [facility] Medical Records Department [address] [place] [id number] Consultation - Mixer Slagman 08/28/24 0053 MR#: [id number] Acct: [id number] Name: ELIUD BLOUNT Rep #:[id number] : 1960 63 From: Krishan Calzada MD PCP: Dr. Charan Arndt MD Status:ADM I N Location: ICU CVICU20 2-[address] Krishan Calzada MD on 08/28/24 at 0106 Addendum We will follow peripherally 08/28/24 0106 Cosigner Signature (if applicable): cc: Dr. Charan Arndt MD ~* Signed HPI Consult Data Date of Consult: 08/28/24 HPI Narrative HPI Narrative: Mr. Blount is a 63 year-old gentleman with COPD, chronic hypercapnic respiratory failure, methamphetamine abuse/dependence, and a prior TBI who presents with altered mental status. He was recently observed by his family to have gait instability, and he did have a fall, hitting his head on the radiator. Upon arrival to [place], his laboratory data revealed a slightly elevated Cr and a positive UDS for methamphetamines, and his imaging was unremarkable. He did undergo an MRI which was unremarkable. On my examination, he is easily awoken, and alert and oriented when awake. He currently denies anyfevers, chills, nausea, vomiting, diarrhea, syncope, presyncope, visual changes, orthopnea, PND,odynophagia, dysphagia, chest pain, shortness of breath, belly pain, dysuria, hematuria, melena, hematochezia, or neurological changes. All other systems werereviewed and were negative. [facility] Medical History (Updated 08/27/24 @ 16:49 by Miguel Ángel Liao MD) Pneumonia Pneumonia Left ankle injury Bilateral tennis elbow Depression Sepsis LACEY (obstructive sleep apnea) Lung nodule Hoarseness Sleep-related breathing disorder Pneumonia Encephalopathy Acute respiratory failure COPD (chronic obstructive pulmonary disease) GERD (gastroesophageal reflux disease) Bipolar disorder Migraine Tobacco abuse Spinal stenosis Traumatic brain injury Home Medications ?Medication ?Instructions ?Recorded ?Last Taken ?Type levetiracetam 500 mg tablet 500 mg PO DAILY Check with primary 04/28/20 03/28/24 History doctor divalproex 250 mg tablet,delayed 750 mg PO BID 4 03/28/24 History release ibuprofen 200 mg tablet (Addaprin) 400 mg PO Q8H PRN p ain 03/28/24 03/28/24 History albuterol sulfate 2.5 mg/3 mL 2.5 mg (3 mL) inhalation Q4H PRN 04/15/24 Unknown Rx (0.083 %) solution for nebulization #120 vials fluticasone fur. 200 mcg-umeclid 1 inh inhalation MOO Y #60 ea 04/15/24 Unknown Rx 62.5 mcg-vilant 25 mcg inhalat.powder (Trelegy Ellipta) Disability Placard #1 ea 06/14/24 Unknown Rx fluticasone propionate 50 2 spray intranasal DAILY #16 grams 06/14/24 Unknown Rx mcg/actuation nasal spray,suspension albuterol sulfate 90 mcg/actuation 2 puff inhalation Q 4H PRN 07/27/24 Unknown Rx aerosol inhaler shortness of breath or wheez ing #8.5 grams amitriptyline 100 mg tablet 100 mg PO QHS PRN sleep Unknown History ipratropium bromide 42 mcg (0.06 2 spray intranasal TI D #15 mL 07/27/24 Unknown Rx %) nasal spray gabapentin 800 mg tablet 800 mg PO TID 08/27/24 Unkno wn History guaifenesin 1,200 mg tablet, 1,200 mg PO Q12H PRN coug h 08/27/24 Unknown History extended release 12 hr Allergy/AdvReac Type Severity Reaction Status Date / Time dextromethorphan HBr (From AdvReac Intermediate tachycardia, Verified 08/27/24 14:30 NyQuil) feels anxious doxylamine (From NyQuil) AdvReac Intermediate Tachycardia, Verified 08/27/24 14:30 feels anxious pseudoephedrine HCl (From AdvReac Intermediate Tachycardia, Verified 08/27/24 14:30 NyQuil) feels anxious sertraline HCl (From Zoloft) AdvReac Diarrhea Verified 08/27/24 14:30 Family History Father Dementia Alzheimers disease Diabetes Mother Diabetes Surgical History History of hernia repair Social History Smoking Status: Heavy Smoker (>10/day) Tobacco: How many years used: 30 second hand exposure: Yes alcohol intake: never substance use type: does not use ROS ROS Narrative As per HPI Objective Data Objective Data Vital Signs: Vital Signs Last response 3 Temperature 36.7 C 08/28/24 00:00 Temperature Source Temporal 08/28/24 00:00 Pulse Rate 66 08/28/24 00:00 Respiratory Rate 10 L 08/28/24 00:00 Respiratory Effort Normal, Non-Labored 08/28/24 00:00 Respiratory Depth Normal 08/28/24 00:00 Respiratory Pattern Normal 08/28/24 00:00 Blood Pressure 169/100 H 08/28/24 00:00 Blood Pressure Mean 123 08/28/24 00:00 Blood Pressure Source Monitor 08/28/24 00:00 Blood Pressure Position Semi-Fowlers 08/28/24 00:00 Blood Pressure Location Right Arm 08/28/24 00:00 Pulse Ox 99 08/28/24 00:00 Oxygen Delivery Method Nasal Cannula 08/28/24 00:00 Oxygen Flow Rate (L/min) 2 08/28/24 00:00 Fraction of Inspired Oxygen (FIO2) 99 08/28/24 00:00 I&O: I&O Last 24 Hours 3 08/27/24 08/27/24 08/28/24 11:59 23:59 11:59 Intake Total 0 / 0 Output Total 275 / 275 Balance -275 / -275 I&O: Total Stay 3 08/27/24 14:21 thru 08/27/24 23:50 Intake Total 0 Output Total 275 Balance -275 Current Meds Ordered / Administered: Current meds ordered / Administered 3 Generic Name Dose Route Start Last Admin Trade Name Adrienne PRN Reason Stop Dose Admin Albuterol Sulfate 2.5 mg 08/27/24 19:59 Albuterol 2.5 Mg/3 Ml Vial.Neb. INHALATION Q4H PRN shortness of breath or wheezing Albuterol/Ipratropium 3 ml 08/28/24 00:51 Ipratropium/Albuterol Sulfate 3 Ml Ampul.Neb INHALATION Q4H.RT PRN COUGH/CONGESTION Enoxaparin Sodium 40 mg 08/28/24 10:00 Enoxaparin 40 Mg/0.4 Ml Syringe SC DAILY TOMASA Sodium Chloride 100 mls @ 15 mls/hr 08/27/24 20:01 IV .Q6H40M PRN Saline Flush Sodium Chloride 100 mls @ 15 mls/hr 08/27/24 20:01 IV .Q6H40M PRN Additional IVPB Infusion Lactated Ringer's 1,000 mls @ 75 mls/hr 08/28/24 01:00 IV .[id number] TOMASA Iopamidol 0 ml 08/27/24 19:55 08/27/24 20:42 Contrast Allergy Safety Check IV Not Given X1 TOMASA Labetalol HCl 20 mg 08/27/24 14:22 Labetalol 20mg/4ml Syringe IV 08/28/24 14:22 X1 PRN Blood Pressure Sodium Chloride 10 - 40 ml 08/27/24 20:01 0.9% Saline Lock 10 Ml Syringe IV UD PRN SALINE FLUSH Physical Exam Narrative GENERAL: NAD; A/O x 4; no distress HEENT: PERRLA; EOMI; anicteric NECK: soft, supple, no RAYMON; no JVP; no TM CV: RRR; -m/r/g RESP: SLIGHT WHEEZING ABD: soft, NT, ND, ABS x 4 EXT: WWP; no C/C/E NEURO: 5/5 Motor and Sensory; CN II - XII Intact Lab / Micro Data 08/27/24 14:10 08/27/24 14:10 Labs: Laboratory Results - last 24 hr 08/27/24 14:10: WBC 4.5, RBC 4.38 L, Hgb 13.2, Hct 40.2, MCV 91.8, MCH 30.1, MCHC 32.8, RDW Std Deviation 44.0 H, RDW Coeff of Aaron 13.1, Plt Count 262, MPV 9.0, Immature Gran % (Auto) 0.200, Neut % (Auto) 43.2 L, Lymph % (Auto) 43.8 H, Bond % (Auto) 9.7, Eos % (Auto) 2.2, Baso % (Auto) 0.9, Absolute Neuts (auto) 2.0, Absolute Lymphs (auto) 1.99, Nucleated RBC % 0, PT 13.9, INR 1.1, APTT 31.6, Sodium 138, Potassium 3.6, Chloride 100, Carbon Dioxide 26.6, Anion Gap 11, BUN 22 H, Creatinine 0.73, Estim Creat Clear Calc 84.17, Est GFR (MDRD) Non- Af 103, BUN/Creatinine Ratio 30.2 H, Glucose 147 H,Calcium 8.8, Troponin T HighSens 23 H, TSH 1.320, Ethyl Alcohol < 10.1 08/27/24 15:30: Urine Opiates Screen NEGATIVE, U Buprenorphine Qual NEGATIVE, UrOxycodone Screen NEGATIVE, Urine Methadone Screen NEGATIVE, Urine Fentanyl Screen NEGATIVE, Ur Barbiturates Screen NEGATIVE, Ur Phencyclidine Scrn NEGATIVE, Ur Amphetamines Screen PRESUMTIVE POSITIVE, U Benzodiazepines Scrn NEGATIVE, Urine Cocaine Screen NEGATIVE, U Cannabinoids Screen NEGATIVE 08/27/24 16:25: Troponin T Hi Sens 2 Hr 33 H 08/27/24 16:43: Ammonia 38.6 08/27/24 19:00: Troponin T Hi Sens 4Hr 18 ABG Data ABG results: ABG 08/27/24 14:43 Specimen Type ART Sample Site L Brach pH 7.38 Bicarbonate Actual 31.9 H Total CO2 34 Base Excess 7 H O2 Saturation 91 L ABG pCO2 53.7 H ABG pO2 65 L O2 Delivery Device Room Air Vent Mode Not entered Imaging Radiology Impression Brain CT 08/27/24 14:22 IMPRESSION: No acute stroke is seen. Red Alert: No acute stroke is seen. The critical information above was relayed directly by me by telephone to Miguel Ángel Liao on 08/27/2024 at 2:36 pm with readback verification. Reading Location: [facility] Head/Neck CTA 08/27/24 14:25 IMPRESSION: RIGHT CAROTID: Minimal plaque at the origin of the right internal carotid artery. LEFT CAROTID: Unremarkable VERTEBRALS: Unremarkable INTRACRANIAL: Unremarkable One or more dose reduction techniques were used (e.g., Automated exposure control, adjustment of the mA and/or kV according to patient size, use of iterative reconstruction technique). Red Alert: The critical information above was relayed directly by me by telephone to Miguel Ángel Liao on 08/27/2024 at 2:50 pm with readback verification. Reading Location: [facility] Chest X-Ray 08/27/24 14:55 IMPRESSION: Stable examination. Reading Location: [facility]1 Brain MRI 08/27/24 19:55 IMPRESSION: 1. chronic microvascular ischemic disease. 2. Otherwise, unremarkable MRI of the brain without and with contrast. REASON FOR EXAM: No acute intracranial abnormality. Chronic microvascular ischemia and involutional changes. No suspicious intracranial mass, abnormal parenchymal or leptomeningeal enhancement COMPARISON: None. Reading Location: [facility] Assessment and Plan . Assessment and plan: ASSESSMENT 1. Altered Mental Status 2. Methamphetamine Intoxication 3. Acute Kidney Injury 4. Chronic Obstructive Pulmonary Disease 5. Chronic Hypercapnic Respiratory Failure 6. Prior Traumatic Brain Injury 7. Methamphetamine Abuse/Dependence PLAN 1. Mental status markedly improved 2. CTA Head/Neck, CT head, MRI all unremarkable 3. Fluids 4. Duonebs 5. PT evaluation in AM Lovenox The entirety of this encounter was done via telemedicine with audio and visual. Consent was obtained for a telemedicine encounter. Krishan Calzada MD Pulmonary and Critical Care Medicine 08/28/24 0104 Cosigner Signature (if applicable): CC: Dr. Charan Arndt MD~ Signed [facility]03-14-2025 History and physical note Author Hyun Duncan [facility] Note Date/Time August 27, 2024 6:2 6pm [facility] Medical Records Department [address] [place] [address] H&P Exam - Hospitalist 08/27/24 1640 MR#: [id number] Acct: [id number] Name: ELIUD BLOUNT Rep #:[id number] : 1960 63 From: Hyun Duncan MD PCP: Dr. Charan Arndt MD Status:ADM I N Location: ICU CVICU20 2-1 HPI - General General Date of Service: 08/27/24 HPI Narrative ELIUD BLOUNT, is a 63 M with a PMH as outlined who presents via the ED with a complaint of altered mental status. Pateient could not give much of a history. Per ED doctor, patient had apparently been feeling weak and lightheaded and felland hit his head against a radiator. He had expressive aphasia and was lethargic. He head butted his dog, according to his son. He has a history of COPD and is on the lung transplant list at [facility]. He was brought in to the ED due to concern about a stroke. Vitals in the ED were BP oif 101/74, NM of 73, RR of 10 and oxygen sats of 92% on room air. CBC showed Hb of 13.2, wbc of 4.5 and platelets of 262. INR is 1.1.ABG showd pH of 7.38, pCO2 of 53.7 and pO2 of 65. CHemistry showed sodium of 138, potassium of 3.6 and bicarb of 26.6. Cr is 0.73. Initial troponin was 23 and blood sugar was 147. Urine tox was pending, though his did say he has been on methamphetamines. Serum alcohol level was <7. 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 CTA of the head and neck showed minimal plaque at the origin of the right internal carotid artery. He is being admitted to be managed for acute encephalopathy of unclear etiology. [facility] Medical History (Updated 08/27/24 @ 16:49 by Miguel Ángel Liao MD) Pneumonia Pneumonia Left ankle injury Bilateral tennis elbow Depression Sepsis LACEY (obstructive sleep apnea) Lung nodule Hoarseness Sleep-related breathing disorder Pneumonia Encephalopathy Acute respiratory failure COPD (chronic obstructive pulmonary disease) GERD (gastroesophageal reflux disease) Bipolar disorder Migraine Tobacco abuse Spinal stenosis Traumatic brain injury Home Medications ?Medication ?Instructions ?Recorded ?Last Taken ?Type levetiracetam 500 mg tablet 500 mg PO DAILY Check with primary 04/28/20 03/28/24 History doctor divalproex 250 mg tablet,delayed 750 mg PO BID 4 03/28/24 History release ibuprofen 200 mg tablet (Addaprin) 400 mg PO Q8H PRN p ain 03/28/24 03/28/24 History albuterol sulfate 2.5 mg/3 mL 2.5 mg (3 mL) inhalation Q4H PRN 04/15/24 Unknown Rx (0.083 %) solution for nebulization #120 vials fluticasone fur. 200 mcg-umeclid 1 inh inhalation MOO Y #60 ea 04/15/24 Unknown Rx 62.5 mcg-vilant 25 mcg inhalat.powder (Trelegy Ellipta) Disability Placard #1 ea 06/14/24 Unknown Rx fluticasone propionate 50 2 spray intranasal DAILY #16 grams 06/14/24 Unknown Rx mcg/actuation nasal spray,suspension albuterol sulfate 90 mcg/actuation 2 puff inhalation Q 4H PRN 07/27/24 Unknown Rx aerosol inhaler shortness of breath or wheez ing #8.5 grams amitriptyline 100 mg tablet 100 mg PO QHS PRN sleep Unknown History ipratropium bromide 42 mcg (0.06 2 spray intranasal TI D #15 mL 07/27/24 Unknown Rx %) nasal spray gabapentin 800 mg tablet 800 mg PO TID 08/27/24 Unkno wn History guaifenesin 1,200 mg tablet, 1,200 mg PO Q12H PRN coug h 08/27/24 Unknown History extended release 12 hr Allergy/AdvReac Type Severity Reaction Status Date / Time dextromethorphan HBr (From AdvReac Intermediate tachycardia, Verified 08/27/24 14:30 NyQuil) feels anxious doxylamine (From NyQuil) AdvReac Intermediate Tachycardia, Verified 08/27/24 14:30 feels anxious pseudoephedrine HCl (From AdvReac Intermediate Tachycardia, Verified 08/27/24 14:30 NyQuil) feels anxious sertraline HCl (From Zoloft) AdvReac Diarrhea Verified 08/27/24 14:30 Family History Father Dementia Alzheimers disease Diabetes Mother Diabetes Surgical History History of hernia repair Social History Smoking Status: Heavy Smoker (>10/day) Tobacco: How many years used: 30 second hand exposure: Yes alcohol intake: never substance use type: does not use ROS ROS Narrative unable to do review of systems due to confusion. Review of Systems ROS Unobtainable: due to encephalopathy Vital Signs Vital Signs Vital Signs: 08/27/24 14:22 08/27/24 14:27 08/27/24 14:34 Temperature Temperature Source Pulse Rate 84 Respiratory Rate 12 Respiratory Effort Normal Non-Labored Respiratory Pattern Normal Blood Pressure 119/79 115/54 L Blood Pressure Mean 92 74 Pulse Ox 92 Oxygen Delivery Method Room Air 08/27/24 14:37 08/27/24 15:15 08/27/24 15:48 Temperature 97.6 F L Temperature Source Oral Pulse Rate 82 76 73 Respiratory Rate 14 12 10 L Respiratory Effort Respiratory Pattern Blood Pressure 119/80 103/78 101/74 Blood Pressure Mean 93 86 83 Pulse Ox 93 92 92 Oxygen Delivery Method Room Air Room Air Room Air Weight Weight: 123 lb 7.342 oz Body Mass Index (BMI) 18.7 Physical Exam Const Constitutional Narrative: patient very lethargic, minimally responsive. Orientation / Consciousness: lethargic HEENT normocephalic, head/scalp atraumatic and oropharynx normal Eyes PERRL, EOMs intact bilaterally and conjunctivae normal Neck no lymphadenopathy and supple Resp Resp Narrative: mildly diminished breath sounds bibasally, no wheezes or crackles. On room air. Respiratory rate of 9 during my review Cardio regular rate, regular rhythm, S1 normal heart sound, S2 normal heart sound and no murmurs GI normal to inspection, nondistended, normoactive bowel sounds, soft to palpation,non-tender and non-distended Extremity normal to inspection, full ROM and no clubbing, cyanosis or edema Neuro Neuro Narrative: lethargic, very somnolent. pupils pinpoint and minimally responsive to light. Minimal response to sternal rub or pressure on nail bed Results Lab / Micro Data 08/27/24 14:10 08/27/24 14:10 Labs: Laboratory Results - last 24 hr 08/27/24 14:10: WBC 4.5, RBC 4.38 L, Hgb 13.2, Hct 40.2, MCV 91.8, MCH 30.1, MCHC 32.8, RDW Std Deviation 44.0 H, RDW Coeff of Aaron 13.1, Plt Count 262, MPV 9.0, Immature Gran % (Auto) 0.200, Neut % (Auto) 43.2 L, Lymph % (Auto) 43.8 H, Bond % (Auto) 9.7, Eos % (Auto) 2.2, Baso % (Auto) 0.9, Absolute Neuts (auto) 2.0, Absolute Lymphs (auto) 1.99, Nucleated RBC % 0, PT 13.9, INR 1.1, APTT 31.6, Sodium 138, Potassium 3.6, Chloride 100, Carbon Dioxide 26.6, Anion Gap 11, BUN 22 H, Creatinine 0.73, Estim Creat Clear Calc 84.17, Est GFR (MDRD) Non-Af 103, BUN/Creatinine Ratio 30.2 H, Glucose 147 H, Calcium 8.8, Troponin T HighSens 23 H, Ethyl Alcohol < 10.1 ABG Data ABG results: ABG 08/27/24 14:43 Specimen Type ART Sample Site L Brach pH 7.38 Bicarbonate Actual 31.9 H Total CO2 34 Base Excess 7 H O2 Saturation 91 L ABG pCO2 53.7 H ABG pO2 65 L O2 Delivery Device Room Air Vent Mode Not entered Imaging Radiology Impression Brain CT 08/27/24 14:22 IMPRESSION: No acute stroke is seen. Red Alert: No acute stroke is seen. The critical information above was relayed directly by me by telephone to Miguel Ángel Liao on 08/27/2024 at 2:36 pm with readback verification. Reading Location: [facility] Head/Neck CTA 08/27/24 14:25 IMPRESSION: RIGHT CAROTID: Minimal plaque at the origin of the right internal carotid artery. LEFT CAROTID: Unremarkable VERTEBRALS: Unremarkable INTRACRANIAL: Unremarkable One or more dose reduction techniques were used (e.g., Automated exposure control, adjustment of the mA and/or kV according to patient size, use of iterative reconstruction technique). Red Alert: The critical information above was relayed directly by me by telephone to Miguel Ángel Liao on 08/27/2024 at 2:50 pm with readback verification. Reading Location: [facility]1 Chest X-Ray 08/27/24 14:55 IMPRESSION: Stable examination. Reading Location: [facility] Assessment & Plan Assessment/Plan (1) Mental status, decreased: (2) Unresponsive: PLAN: Plan #Acute encephalopathy of unclear etiology * Admitted after he became confused at home and had butted his dog. He subsequently fell and hit his head against a radiator. * CT of the brain showed no acute intracranial pathology and only shows evidence of old stroke with encephalomalacia * Labs are essentially unremarkable. TSH ordered and pending. Urine tox also pending. Serum alcohol level is low. * with acute encephalopathy, pinpoint pupils and mild respiratory suppression, I am concerned about possible opioid overdose * Patient was given one dose of Narcan in the ED to no avail. According to his he apparently does take methamphetamines. * urine tox negative for opioids but presumptive positive for amphetamines. He is not having any features of amphetamine overdose such as tahyarrhythmia, hyperactivity, hypertension, hyperventilation or confusion. * With patient's lethargy and slow respiratory rate as well as pinpoint pupils, I am concerned about an opioid overdose. I am repeating the dose of Narcan and if he does not respond I will put him on a Narcan drip and admit him in the ICU. * CTA of the head and neck showed no hemodynamically significant stenosis. * Get EEG. Order MRI of the brain. Consult neurology. * ABG showed pH of 7.38, pCO2 of 53.7 ad pO2 of 65. * On Keppra. Hold gabapentin and any other neurotoxic meds. * Ammonia level is 38.6 * consult critical care * start on narcan drip if he does not respond to second dose of narcan in the ED. #Seizure disorder: On Keppra and divalproex. #Stage IV COPD * Apparently patient is on lung lung transplant list at [facility]. * Breathing treatments bronchodilators. Does not appear to be in exacerbation. Titrate oxygen to maintain saturation above 90%. * #History of depression and bipolar disorder: Hold antidepressant and bipolar medication as he is currently n.p.o. DVT prophylaxis: Lovenox CODE STATUS code patient presumptively made full code as he is confused unable to do CODE STATUS discussion. Charges/Coding Visit Charges Inpatient E&M: 47418 Init Hosp L3 Procedures Hospitalists Procedures: 96028 Advncd Care Plan 30 Min 08/27/24 1826 <Electronically signed by Hyun Duncan MD> Cosigner Signature (if applicable): CC: Dr. Charan Arndt MD; Dr. Hyun Duncan MD~ Signed [facility] Work Phone: [phone]) 718-613503-14-2025 Evaluation note* Diagnosis Onset Date Resolution Status Admit Date Mental status, decreased resolved August 27, 2024 5:01pm Unresponsive resolved August 27, 2024 5:01pm Closed head injury inactive August 27, 2024 5:01pm COPD (chronic obstructive pulmonary disease) inactive August 27, 2 025 5:01pm Chronic respiratory failure chronic November 26, 2024 2:46pm Nicotine dependence, cigaret gary, uncomplicated chronic November 26, 2024 2:46pm LACEY (obstructive sleep apnea) chroni c November 26, 2024 2:46pm Stage 4 very severe COPD by GOLD classification chronic November 26, 2024 2:46pm [facility] Work Phone: [phone]) 710-887403-14-2025 Discharge summary Author Miguel Ángel Liao [facility] Note Date/Time August 27, 2024 4:5 5pm [facility] Medical Records Department [address] [place] [address] Emergency Department Summary 08/27/24 MR#: [id number] Acct: [id number] Name: ELIUD BLOUNT Rep #:[id number] : 1960 63 From: Miguel Ángel Liao MD PCP: Dr. Charan Arndt MD Status:REG E R Location: ED ADDENDUM by Dr. Miguel Ángel Liao MD on 08/27/24 at 1654 EKG had been obtained as well as part of the stroke workup and interpreted by myself independently as normal sinus rhythm at 81 bpm without ectopy or acute STchanges. No STEMI. 08/27/24 1654<Electronically signed by Miguel Ángel Liao MD> Cosigner Signature (if applicable): cc: Dr. Charan Arndt MD ~* Signed HPI History of Present Illness Chief Complaint: Unresponsive Narrative Narrative: 63-year-old male past medical history of COPD, presents with decreased mental status. History and physical is unobtainable from patient secondary to current mental have an hour prior to arrival, he had butted his dog. He had been feeling weak and lightheaded, and fell again and hit his head against a radiator. He was awake, alert and talking intermittently for EMS, but they noticed aphasia and decline in his mental status and route. They called prehospital stroke team because of his expressive aphasia and unresponsiveness. Blood sugar was checked and was normal. EMS did not notice any outward signs oftrauma to his head. He does not take blood thinners. He presents as a prehospital stroke team. [facility] Medical History (Updated 08/27/24 @ 16:49 by Miguel Ángel Liao MD) Pneumonia Pneumonia Left ankle injury Bilateral tennis elbow Depression Sepsis LACEY (obstructive sleep apnea) Lung nodule Hoarseness Sleep-related breathing disorder Pneumonia Encephalopathy Acute respiratory failure COPD (chronic obstructive pulmonary disease) GERD (gastroesophageal reflux disease) Bipolar disorder Migraine Tobacco abuse Spinal stenosis Traumatic brain injury Home Medications ?Medication ?Instructions ?Recorded ?Last Taken ?Type levetiracetam 500 mg tablet 500 mg PO DAILY Check with primary 04/28/20 03/28/24 History doctor divalproex 250 mg tablet,delayed 750 mg PO BID 4 03/28/24 History release ibuprofen 200 mg tablet (Addaprin) 400 mg PO Q8H PRN p ain 03/28/24 03/28/24 History albuterol sulfate 2.5 mg/3 mL 2.5 mg (3 mL) inhalation Q4H PRN 04/15/24 Unknown Rx (0.083 %) solution for nebulization #120 vials fluticasone fur. 200 mcg-umeclid 1 inh inhalation MOO Y #60 ea 04/15/24 Unknown Rx 62.5 mcg-vilant 25 mcg inhalat.powder (Trelegy Ellipta) Disability Placard #1 ea 06/14/24 Unknown Rx fluticasone propionate 50 2 spray intranasal DAILY #16 grams 06/14/24 Unknown Rx mcg/actuation nasal spray,suspension albuterol sulfate 90 mcg/actuation 2 puff inhalation Q 4H PRN 07/27/24 Unknown Rx aerosol inhaler shortness of breath or wheez ing #8.5 grams amitriptyline 100 mg tablet 100 mg PO QHS PRN sleep Unknown History ipratropium bromide 42 mcg (0.06 2 spray intranasal TI D #15 mL 07/27/24 Unknown Rx %) nasal spray gabapentin 800 mg tablet 800 mg PO TID 08/27/24 Unkno wn History guaifenesin 1,200 mg tablet, 1,200 mg PO Q12H PRN coug h 08/27/24 Unknown History extended release 12 hr Allergy/AdvReac Type Severity Reaction Status Date / Time dextromethorphan HBr (From AdvReac Intermediate tachycardia, Verified 08/27/24 14:30 NyQuil) feels anxious doxylamine (From NyQuil) AdvReac Intermediate Tachycardia, Verified 08/27/24 14:30 feels anxious pseudoephedrine HCl (From AdvReac Intermediate Tachycardia, Verified 08/27/24 14:30 NyQuil) feels anxious sertraline HCl (From Zoloft) AdvReac Diarrhea Verified 08/27/24 14:30 Family History Father Dementia Alzheimers disease Diabetes Mother Diabetes Surgical History History of hernia repair Social History Smoking Status: Heavy Smoker (>10/day) Tobacco: How many years used: 30 second hand exposure: Yes alcohol intake: never substance use type: does not use ROS ROS ED Review of Systems ROS Unobtainable: due to mental status EXAM Physical Exam Narrative Exam Narrative: Afebrile. Vital signs noted. Nontoxic-appearing. Barely opens his eyes to sternal rub. Cardiovascular examination regular rate and rhythm. Lungs are clear to auscultation bilaterally. No tachypnea. Abdomen soft and nontender. No noted pedal edema. Const Vital Signs: 08/27/24 14:22 08/27/24 14:27 08/27/24 14:34 Temperature Temperature Source Pulse Rate 84 Respiratory Rate 12 Respiratory Effort Normal Non-Labored Respiratory Pattern Normal Blood Pressure 119/79 115/54 L Blood Pressure Mean 92 74 Pulse Ox 92 Oxygen Delivery Method Room Air 08/27/24 14:37 08/27/24 15:15 08/27/24 15:48 Temperature 97.6 F L Temperature Source Oral Pulse Rate 82 76 73 Respiratory Rate 14 12 10 L Respiratory Effort Respiratory Pattern Blood Pressure 119/80 103/78 101/74 Blood Pressure Mean 93 86 83 Pulse Ox 93 92 92 Oxygen Delivery Method Room Air Room Air Room Air MDM MDM MDM Narrative Medical decision making narrative: Differential diagnosis includes but not limited to bilateral stroke versus intracranial hemorrhage versus concussive type symptoms versus drug intoxicationversus CO2 retention. As he arrived as a prehospital stroke team, CT was obtained as well as CTA of the head and neck. I reviewed the radiology report and received a call from the radiologist regarding the CT of the brain which shows no acute intracranial hemorrhage. Review of the CTA shows no large vesselocclusion. With the thought of CO2 retention, ABG was obtained and interpreted by myself. pH is 7.38 with a pCO2 of 53.7 which is not excessively high and consistent with his COPD with a pO2 of 64.5. He is compensated. No I reviewed his CBC and he has normal white count of 4.5 with hemoglobin normal 13.2 with hematocrit 40.2, platelet count normal at 262. Coagulation studies are negative. BMP is grossly unremarkable with sodium normal 138 with potassium 3.6, chloride 100, BUN of 22 with creatinine 0.73. Glucose is appropriately elevated at 147 with a normal anion gap of 11. Ethyl alcohol is negative at less than 10 so I do not think she has alcohol intoxication. Initial high-sensitivity troponin is 23 which was obtained through stroke order labs. I think this is nonspecific. In discussion with the , patient only takes gabapentin and does not take opiates. He was given Narcan 2 mg which showed no change in his mental status. Initially during ABG draw, respiratory therapist does state that the patient didwake up. However Unger catheter had been inserted by RN and she states he did not flinch. I asked the patient's if he had striae of any liver failure and she said that he did not. With the thought of hepatic encephalopathy, I will obtain an ammonia level. While the urine for drugs of abuse is still pending, I am unsure as to the cause of this severe change in his mental status,and unresponsiveness. His pulse ox is 92% on room air which I think is acceptable given his history of COPD. As his stated that he had turned down being on a lung transplant list, I am hesitant to immediately intubate him as he may not be able to come off the ventilator. While the patient takes gabapentin, he does not take opiates. 2 mg of Narcan did not change his mental status. When I reviewed his prior problem list, does say seizure disorder, there is a small possibility that this could be prolonged postictal state. I discussed patient with the hospitalist, Dr. Duncan. He will be admitted to thePCU for his mental status change. I am unsure as to the cause of his unresponsive state/encephalopathy. I had reviewed his prior ammonia levels and they have only been as high as the 40s. He is not hypertensive. Once again there is no trauma to the head that I think he requires emergent transfer to a trauma center. She requested that TSH be added. Disposition is admit in stablecondition. History & Record Review Discussion w/independent historian: Family Lab Data Attestation: I reviewed the patient's lab results. Labs: Laboratory Results - last 24 hr 08/27/24 14:10 WBC 4.5 RBC 4.38 L Hgb 13.2 Hct 40.2 MCV 91.8 MCH 30.1 MCHC 32.8 RDW Std Deviation 44.0 H RDW Coeff of Aaron 13.1 Plt Count 262 MPV 9.0 Immature Gran % (Auto) 0.200 Neut % (Auto) 43.2 L Lymph % (Auto) 43.8 H Bond % (Auto) 9.7 Eos % (Auto) 2.2 Baso % (Auto) 0.9 Absolute Neuts (auto) 2.0 Absolute Lymphs (auto) 1.99 Nucleated RBC % 0 PT 13.9 INR 1.1 APTT 31.6 Sodium 138 Potassium 3.6 Chloride 100 Carbon Dioxide 26.6 Anion Gap 11 BUN 22 H Creatinine 0.73 Estim Creat Clear Calc 84.17 Est GFR (MDRD) Non-Af 103 BUN/Creatinine Ratio 30.2 H Glucose 147 H Calcium 8.8 Troponin T High Sens 23 H Ethyl Alcohol < 10.1 ABG Data ABG results: ABG 08/27/24 14:43 Specimen Type ART Sample Site L Brach pH 7.38 Bicarbonate Actual 31.9 H Total CO2 34 Base Excess 7 H O2 Saturation 91 L ABG pCO2 53.7 H ABG pO2 65 L O2 Delivery Device Room Air Vent Mode Not entered Radiography Diagnostic Testing: Clinical Impression(s) from Imaging Studies Brain CT 08/27/24 14:22 IMPRESSION: No acute stroke is seen. Red Alert: No acute stroke is seen. The critical information above was relayed directly by me by telephone to Miguel Ángel Liao on 08/27/2024 at 2:36 pm with readback verification. Reading Location: [facility]-1 Head/Neck CTA 08/27/24 14:25 IMPRESSION: RIGHT CAROTID: Minimal plaque at the origin of the right internal carotid artery. LEFT CAROTID: Unremarkable VERTEBRALS: Unremarkable INTRACRANIAL: Unremarkable One or more dose reduction techniques were used (e.g., Automated exposure control, adjustment of the mA and/or kV according to patient size, use of iterative reconstruction technique). Red Alert: The critical information above was relayed directly by me by telephone to Miguel Ángel Liao on 08/27/2024 at 2:50 pm with readback verification. Reading Location: [facility]- Chest X-Ray 08/27/24 14:55 IMPRESSION: Stable examination. Reading Location: [facility]-- Management Discussion w/another healthcare provider: Hospitalist Discharge Plan Dx/Rx/DC Orders Clinical Impression: Unresponsive, COPD (chronic obstructive pulmonary disease), Mental status, decreased, Closed head injury Disposition Disposition: Acute Care Hospital [facility] What to do if you have Problems For any increased pain, shortness of breath, bleeding, nausea or vomiting, chestpain, or any unexpected problems, contact your Primary Care Provider. Call [facility] ([phone]) or report to the closest Emergency Room. Call 911 if necessary. 08/27/24 1651 <Electronically signed by Miguel Ángel Liao MD> Cosigner Signature (if applicable): CC: Dr. Charan Arndt MD ~ Signed [facility] Work Phone: [phone] History and physical note [facility] Medical Records Department [address] [place] [address] H&P Exam - Hospitalist 08/27/24 1640 MR#: [id number] Acct: [id number] Name: ELIUD BLOUNT Rep #:[id number] : 1960 63 From: Hyun Duncan MD PCP: Dr. Charan Arndt MD Status:ADM I N Location: ICU CVICU20 2-1 HPI - General General Date of Service: 08/27/24 HPI Narrative ELIUD BLOUNT, is a 63 M with a PMH as outlined who presents via the ED with a complaint of altered mental status. Pateient could not give much of a history. Per ED doctor, patient had apparently been feeling weak and lightheaded and felland hit his head against a radiator. He had expressive aphasia and was lethargic. He head butted his dog, according to his son. He has a history of COPD and is on the lung transplant list at [facility]. He was brought in to the ED due to concern about a stroke. Vitals in the ED were BP oif 101/74, NM of 73, RR of 10 and oxygen sats of 92% on room air. CBC showed Hb of 13.2, wbc of 4.5 and platelets of 262. INR is 1.1.ABG showd pH of 7.38, pCO2 of 53.7 and pO2 of 65. CHemistry showed sodium of 138, potassium of 3.6 and bicarb of 26.6. Cr is 0.73. Initial troponin was 23 and blood sugar was 147. Urine tox was pending, though his did say he has been on methamphetamines. Serum alcohol level was <7. 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 CTA of the head and neck showed minimal plaque at the origin of the right internal carotid artery. He is being admitted to be managed for acute encephalopathy of unclear etiology. [facility] Medical History (Updated 08/27/24 @ 16:49 by Miguel Ángel Liao MD) Pneumonia Pneumonia Left ankle injury Bilateral tennis elbow Depression Sepsis LACEY (obstructive sleep apnea) Lung nodule Hoarseness Sleep-related breathing disorder Pneumonia Encephalopathy Acute respiratory failure COPD (chronic obstructive pulmonary disease) GERD (gastroesophageal reflux disease) Bipolar disorder Migraine Tobacco abuse Spinal stenosis Traumatic brain injury Home Medications ?Medication ?Instructions ?Recorded ?Last Taken ?Type levetiracetam 500 mg tablet 500 mg PO DAILY Check with primary 04/28/20 03/28/24 History doctor divalproex 250 mg tablet,delayed 750 mg PO BID 4 03/28/24 History release ibuprofen 200 mg tablet (Addaprin) 400 mg PO Q8H PRN p ain 03/28/24 03/28/24 History albuterol sulfate 2.5 mg/3 mL 2.5 mg (3 mL) inhalation Q4H PRN 04/15/24 Unknown Rx (0.083 %) solution for nebulization #120 vials fluticasone fur. 200 mcg-umeclid 1 inh inhalation MOO Y #60 ea 04/15/24 Unknown Rx 62.5 mcg-vilant 25 mcg inhalat.powder (Trelegy Ellipta) Disability Placard #1 ea 06/14/24 Unknown Rx fluticasone propionate 50 2 spray intranasal DAILY #16 grams 06/14/24 Unknown Rx mcg/actuation nasal spray,suspension albuterol sulfate 90 mcg/actuation 2 puff inhalation Q 4H PRN 07/27/24 Unknown Rx aerosol inhaler shortness of breath or wheez ing #8.5 grams amitriptyline 100 mg tablet 100 mg PO QHS PRN sleep Unknown History ipratropium bromide 42 mcg (0.06 2 spray intranasal TI D #15 mL 07/27/24 Unknown Rx %) nasal spray gabapentin 800 mg tablet 800 mg PO TID 08/27/24 Unkno wn History guaifenesin 1,200 mg tablet, 1,200 mg PO Q12H PRN coug h 08/27/24 Unknown History extended release 12 hr Allergy/AdvReac Type Severity Reaction Status Date / Time dextromethorphan HBr (From AdvReac Intermediate tachycardia, Verified 08/27/24 14:30 NyQuil) feels anxious doxylamine (From NyQuil) AdvReac Intermediate Tachycardia, Verified 08/27/24 14:30 feels anxious pseudoephedrine HCl (From AdvReac Intermediate Tachycardia, Verified 08/27/24 14:30 NyQuil) feels anxious sertraline HCl (From Zoloft) AdvReac Diarrhea Verified 08/27/24 14:30 Family History Father Dementia Alzheimers disease Diabetes Mother Diabetes Surgical History History of hernia repair Social History Smoking Status: Heavy Smoker (>10/day) Tobacco: How many years used: 30 second hand exposure: Yes alcohol intake: never substance use type: does not use ROS ROS Narrative unable to do review of systems due to confusion. Review of Systems ROS Unobtainable: due to encephalopathy Vital Signs Vital Signs Vital Signs: 08/27/24 14:22 08/27/24 14:27 08/27/24 14:34 Temperature Temperature Source Pulse Rate 84 Respiratory Rate 12 Respiratory Effort Normal Non-Labored Respiratory Pattern Normal Blood Pressure 119/79 115/54 L Blood Pressure Mean 92 74 Pulse Ox 92 Oxygen Delivery Method Room Air 08/27/24 14:37 08/27/24 15:15 08/27/24 15:48 Temperature 97.6 F L Temperature Source Oral Pulse Rate 82 76 73 Respiratory Rate 14 12 10 L Respiratory Effort Respiratory Pattern Blood Pressure 119/80 103/78 101/74 Blood Pressure Mean 93 86 83 Pulse Ox 93 92 92 Oxygen Delivery Method Room Air Room Air Room Air Weight Weight: 123 lb 7.342 oz Body Mass Index (BMI) 18.7 Physical Exam Const Constitutional Narrative: patient very lethargic, minimally responsive. Orientation / Consciousness: lethargic HEENT normocephalic, head/scalp atraumatic and oropharynx normal Eyes PERRL, EOMs intact bilaterally and conjunctivae normal Neck no lymphadenopathy and supple Resp Resp Narrative: mildly diminished breath sounds bibasally, no wheezes or crackles. On room air. Respiratory rate of9 during my review Cardio regular rate, regular rhythm, S1 normal heart sound, S2 normal heart sound and no murmurs GI normal to inspection, nondistended, normoactive bowel sounds, soft to palpation,non-tender and non-distended Extremity normal to inspection, full ROM and no clubbing, cyanosis or edema Neuro Neuro Narrative: lethargic, very somnolent. pupils pinpoint and minimally responsive to light. Minimal response to sternal rub or pressure on nail bed Results Lab / Micro Data 08/27/24 14:10 08/27/24 14:10 Labs: Laboratory Results - last 24 hr 08/27/24 14:10: WBC 4.5, RBC 4.38 L, Hgb 13.2, Hct 40.2, MCV 91.8, MCH 30.1, MCHC 32.8, RDW Std Deviation 44.0 H, RDW Coeff of Aaron 13.1, Plt Count 262, MPV 9.0, Immature Gran % (Auto) 0.200, Neut % (Auto) 43.2 L, Lymph % (Auto) 43.8 H, Bond % (Auto) 9.7, Eos % (Auto) 2.2, Baso % (Auto) 0.9, Absolute Neuts (auto) 2.0, Absolute Lymphs (auto) 1.99, Nucleated RBC % 0, PT 13.9, INR 1.1, APTT 31.6, Sodium 138, Potassium 3.6, Chloride 100, Carbon Dioxide 26.6, Anion Gap 11, BUN 22 H, Creatinine 0.73, Estim Creat Clear Calc 84.17, Est GFR (MDRD) Non- Af 103, BUN/Creatinine Ratio 30.2 H, Glucose 147 H,Calcium 8.8, Troponin T HighSens 23 H, Ethyl Alcohol < 10.1 ABG Data ABG results: ABG 08/27/24 14:43 Specimen Type ART Sample Site L Brach pH 7.38 Bicarbonate Actual 31.9 H Total CO2 34 Base Excess 7 H O2 Saturation 91 L ABG pCO2 53.7 H ABG pO2 65 L O2 Delivery Device Room Air Vent Mode Not entered Imaging Radiology Impression Brain CT 08/27/24 14:22 IMPRESSION: No acute stroke is seen. Red Alert: No acute stroke is seen. The critical information above was relayed directly by me by telephone to Miguel Ángel Liao on 08/27/2024 at 2:36 pm with readback verification. Reading Location: [facility]-1 Head/Neck CTA 08/27/24 14:25 IMPRESSION: RIGHT CAROTID: Minimal plaque at the origin of the right internal carotid artery. LEFT CAROTID: Unremarkable VERTEBRALS: Unremarkable INTRACRANIAL: Unremarkable One or more dose reduction techniques were used (e.g., Automated exposure control, adjustment of the mA and/or kV according to patient size, use of iterative reconstruction technique). Red Alert: The critical information above was relayed directly by me by telephone to Miguel Ángel Liao on 08/27/2024 at 2:50 pm with readback verification. Reading Location: [facility]-1 Chest X-Ray 08/27/24 14:55 IMPRESSION: Stable examination. Reading Location: [facility]-1 Assessment & Plan Assessment/Plan (1) Mental status, decreased: (2) Unresponsive: PLAN: Plan #Acute encephalopathy of unclear etiology * Admitted after he became confused at home and had butted his dog. He subsequently fell and hit his head against a radiator. * CT of the brain showed no acute intracranial pathology and only shows evidence of old stroke withencephalomalacia * Labs are essentially unremarkable. TSH ordered and pending. Urine tox also pending. Serum alcohollevel is low. * with acute encephalopathy, pinpoint pupils and mild respiratory suppression, I am concerned aboutpossible opioid overdose * Patient was given one dose of Narcan in the ED to no avail. According to his he apparently does take methamphetamines. * urine tox negative for opioids but presumptive positive for amphetamines. He is not having any features of amphetamine overdose such as tahyarrhythmia, hyperactivity, hypertension, hyperventilationor confusion. * With patient's lethargy and slow respiratory rate as well as pinpoint pupils, I am concerned about an opioid overdose. I am repeating the dose of Narcan and if he does not respond I will put him benjamin Narcan drip and admit him in the ICU. * CTA of the head and neck showed no hemodynamically significant stenosis. * Get EEG. Order MRI of the brain. Consult neurology. * ABG showed pH of 7.38, pCO2 of 53.7 ad pO2 of 65. * On Keppra. Hold gabapentin and any other neurotoxic meds. * Ammonia level is 38.6 * consult critical care * start on narcan drip if he does not respond to second dose of narcan in the ED. #Seizure disorder: On Keppra and divalproex. #Stage IV COPD * Apparently patient is on lung lung transplant list at [facility]. * Breathing treatments bronchodilators. Does not appear to be in exacerbation. Titrate oxygen to maintain saturation above 90%. * #History of depression and bipolar disorder: Hold antidepressant and bipolar medication as he is currently n.p.o. DVT prophylaxis: Lovenox CODE STATUS code patient presumptively made full code as he is confused unable to do CODE STATUS discussion. Charges/Coding Visit Charges Inpatient E&M: 88050 Init Hosp L3 Procedures Hospitalists Procedures: 68200 Advncd Care Plan 30 Min 08/27/24 1826 Cosigner Signature (if applicable): CC: Dr. Charan Arndt MD; Dr. Hyun Duncan MD~ Signed [facility]03-14-2025 Discharge summary [facility] Medical Records Department [address] [place] [address] Emergency Department Summary 08/27/24 MR#: [id number] Acct: [id number] Name: ELIUD BLOUNT Rep #:[id number] : 1960 63 From: Miguel Ángel Liao MD PCP: Dr. Charan Arndt MD Status:REG E R Location: ED ADDENDUM by Dr. Miguel Ángel Liao MD on 08/27/24 at 1654 EKG had been obtained as well as part of the stroke workup and interpreted by myself independently as normal sinus rhythm at 81 bpm without ectopy or acute STchanges. No STEMI. 08/27/24 1654 Cosigner Signature (if applicable): cc: Dr. Charan Arndt MD ~* Signed HPI History of Present Illness Chief Complaint: Unresponsive Narrative Narrative: 63-year-old male past medical history of COPD, presents with decreased mental status. History and physical is unobtainable from patient secondary to current mental have an hour prior to arrival, he had butted his dog. He had been feeling weak and lightheaded, and fell again and hit his head againsta radiator. He was awake, alert and talking intermittently for EMS, but they noticed aphasia and decline in his mental status and route. They called prehospital stroke team because of his expressive aphasia and unresponsiveness. Blood sugar was checked and was normal. EMS did not notice any outwardsigns oftrauma to his head. He does not take blood thinners. He presents as a prehospital stroke team. [facility] Medical History (Updated 08/27/24 @ 16:49 by Miguel Ángel Liao MD) Pneumonia Pneumonia Left ankle injury Bilateral tennis elbow Depression Sepsis LACEY (obstructive sleep apnea) Lung nodule Hoarseness Sleep-related breathing disorder Pneumonia Encephalopathy Acute respiratory failure COPD (chronic obstructive pulmonary disease) GERD (gastroesophageal reflux disease) Bipolar disorder Migraine Tobacco abuse Spinal stenosis Traumatic brain injury Home Medications ?Medication ?Instructions ?Recorded ?Last Taken ?Type levetiracetam 500 mg tablet 500 mg PO DAILY Check with primary 04/28/20 03/28/24 History doctor divalproex 250 mg tablet,delayed 750 mg PO BID 4 03/28/24 History release ibuprofen 200 mg tablet (Addaprin) 400 mg PO Q8H PRN p ain 03/28/24 03/28/24 History albuterol sulfate 2.5 mg/3 mL 2.5 mg (3 mL) inhalation Q4H PRN 04/15/24 Unknown Rx (0.083 %) solution for nebulization #120 vials fluticasone fur. 200 mcg-umeclid 1 inh inhalation MOO Y #60 ea 04/15/24 Unknown Rx 62.5 mcg-vilant 25 mcg inhalat.powder (Trelegy Ellipta) Disability Placard #1 ea 06/14/24 Unknown Rx fluticasone propionate 50 2 spray intranasal DAILY #16 grams 06/14/24 Unknown Rx mcg/actuation nasal spray,suspension albuterol sulfate 90 mcg/actuation 2 puff inhalation Q 4H PRN 07/27/24 Unknown Rx aerosol inhaler shortness of breath or wheez ing #8.5 grams amitriptyline 100 mg tablet 100 mg PO QHS PRN sleep Unknown History ipratropium bromide 42 mcg (0.06 2 spray intranasal TI D #15 mL 07/27/24 Unknown Rx %) nasal spray gabapentin 800 mg tablet 800 mg PO TID 08/27/24 Unkno wn History guaifenesin 1,200 mg tablet, 1,200 mg PO Q12H PRN coug h 08/27/24 Unknown History extended release 12 hr Allergy/AdvReac Type Severity Reaction Status Date / Time dextromethorphan HBr (From AdvReac Intermediate tachycardia, Verified 08/27/24 14:30 NyQuil) feels anxious doxylamine (From NyQuil) AdvReac Intermediate Tachycardia, Verified 08/27/24 14:30 feels anxious pseudoephedrine HCl (From AdvReac Intermediate Tachycardia, Verified 08/27/24 14:30 NyQuil) feels anxious sertraline HCl (From Zoloft) AdvReac Diarrhea Verified 08/27/24 14:30 Family History Father Dementia Alzheimers disease Diabetes Mother Diabetes Surgical History History of hernia repair Social History Smoking Status: Heavy Smoker (>10/day) Tobacco: How many years used: 30 second hand exposure: Yes alcohol intake: never substance use type: does not use ROS ROS ED Review of Systems ROS Unobtainable: due to mental status EXAM Physical Exam Narrative Exam Narrative: Afebrile. Vital signs noted. Nontoxic-appearing. Barely opens his eyes to sternal rub. Cardiovascular examination regular rate and rhythm. Lungs are clear to auscultation bilaterally. No tachypnea. Abdomen soft and nontender. No noted pedal edema. Const Vital Signs: 08/27/24 14:22 08/27/24 14:27 08/27/24 14:34 Temperature Temperature Source Pulse Rate 84 Respiratory Rate 12 Respiratory Effort Normal Non-Labored Respiratory Pattern Normal Blood Pressure 119/79 115/54 L Blood Pressure Mean 92 74 Pulse Ox 92 Oxygen Delivery Method Room Air 08/27/24 14:37 08/27/24 15:15 08/27/24 15:48 Temperature 97.6 F L Temperature Source Oral Pulse Rate 82 76 73 Respiratory Rate 14 12 10 L Respiratory Effort Respiratory Pattern Blood Pressure 119/80 103/78 101/74 Blood Pressure Mean 93 86 83 Pulse Ox 93 92 92 Oxygen Delivery Method Room Air Room Air Room Air MDM MDM MDM Narrative Medical decision making narrative: Differential diagnosis includes but not limited to bilateral stroke versus intracranial hemorrhage versus concussive type symptoms versus drug intoxicationversus CO2 retention. As he arrived as a prehospital stroke team, CT was obtained as well as CTA of the head and neck. I reviewed the radiology r eport and received a call from the radiologist regarding the CT of the brain which shows no acute intracranial hemorrhage. Review of the CTA shows no large vesselocclusion. With the thought of CO2 retention, ABG was obtained and interpreted by myself. pH is 7.38 with a pCO2 of 53.7 which is not excessively high and consistent with his COPD with a pO2 of 64.5. He is compensated. No I reviewed his CBC and he has normal white count of 4.5 with hemoglobin normal 13.2 with hematocrit 40.2, platelet count normal at 262. Coagulation studies are negative. BMP is grossly unremarkable with sodium normal 138 with potassium 3.6, chloride 100, BUN of 22 with creatinine 0.73. Glucose is appropriately elevated at 147 with a normal anion gap of 11. Ethyl alcohol is negative at less than 10 so I do not think she has alcohol intoxication. Initial high-sensitivity troponin is 23 which was obtained throughstroke order labs. I think this is nonspecific. In discussion with the , patient only takes gabapentin and does not take opiates. He was given Narcan 2 mg which showed no change in his mental status. Initially during ABG draw, respiratory therapist does state that the patient didwake up. However Unger catheter had been inserted by RN and she states he did not flinch. I asked the patient's ifhe had striae of any liver failure and she said that he did not. With the thought of hepatic encephalopathy, I will obtain an ammonia level. While the urine for drugs of abuse is still pending, I am unsure as to the cause of this severe change in his mental status,and unresponsiveness. His pulse oxis 92% on room air which I think is acceptable given his history of COPD. As his stated that he had turned down being on a lung transplant list, I am hesitant to immediately intubate him as he may not be able to come off the ventilator. While the patient takes gabapentin, he does not take opiates. 2 mg of Narcan did not change his mental status. When I reviewed his prior problem list, does say seizure disorder, there is a small possibility that this could be prolonged postictal state. I discussed patient with the hospitalist, Dr. Duncan. He will be admitted to thePCU for his mental status change. I am unsure as to the cause of his unresponsive state/encephalopathy. I had reviewed his prior ammonia levels and they have only been as high as the 40s. He is not hypertensive. Once again there is no trauma to the head that I think he requires emergent transfer to a trauma center. Sherequested that TSH be added. Disposition is admit in stablecondition. History & Record Review Discussion w/independent historian: Family Lab Data Attestation: I reviewed the patient's lab results. Labs: Laboratory Results - last 24 hr 08/27/24 14:10 WBC 4.5 RBC 4.38 L Hgb 13.2 Hct 40.2 MCV 91.8 MCH 30.1 MCHC 32.8 RDW Std Deviation 44.0 H RDW Coeff of Aaron 13.1 Plt Count 262 MPV 9.0 Immature Gran % (Auto) 0.200 Neut % (Auto) 43.2 L Lymph % (Auto) 43.8 H Bond % (Auto) 9.7 Eos % (Auto) 2.2 Baso % (Auto) 0.9 Absolute Neuts (auto) 2.0 Absolute Lymphs (auto) 1.99 Nucleated RBC % 0 PT 13.9 INR 1.1 APTT 31.6 Sodium 138 Potassium 3.6 Chloride 100 Carbon Dioxide 26.6 Anion Gap 11 BUN 22 H Creatinine 0.73 Estim Creat Clear Calc 84.17 Est GFR (MDRD) Non-Af 103 BUN/Creatinine Ratio 30.2 H Glucose 147 H Calcium 8.8 Troponin T High Sens 23 H Ethyl Alcohol < 10.1 ABG Data ABG results: ABG 08/27/24 14:43 Specimen Type ART Sample Site L Brach pH 7.38 Bicarbonate Actual 31.9 H Total CO2 34 Base Excess 7 H O2 Saturation 91 L ABG pCO2 53.7 H ABG pO2 65 L O2 Delivery Device Room Air Vent Mode Not entered Radiography Diagnostic Testing: Clinical Impression(s) from Imaging Studies Brain CT 08/27/24 14:22 IMPRESSION: No acute stroke is seen. Red Alert: No acute stroke is seen. The critical information above was relayed directly by me by telephone to Miguel Ángel Liao on 08/27/2024 at 2:36 pm with readback verification. Reading Location: [facility]1 Head/Neck CTA 08/27/24 14:25 IMPRESSION: RIGHT CAROTID: Minimal plaque at the origin of the right internal carotid artery. LEFT CAROTID: Unremarkable VERTEBRALS: Unremarkable INTRACRANIAL: Unremarkable One or more dose reduction techniques were used (e.g., Automated exposure control, adjustment of the mA and/or kV according to patient size, use of iterative reconstruction technique). Red Alert: The critical information above was relayed directly by me by telephone to Miguel Ángel Liao on 08/27/2024 at 2:50 pm with readback verification. Reading Location: [facility]--1 Chest X-Ray 08/27/24 14:55 IMPRESSION: Stable examination. Reading Location: [facility]-IR- Management Discussion w/another healthcare provider: Hospitalist Discharge Plan Dx/Rx/DC Orders Clinical Impression: Unresponsive, COPD (chronic obstructive pulmonary disease), Mental status, decreased, Closed head injury Disposition Disposition: Acute Care Hospital [facility] What to do if you have Problems For any increased pain, shortness of breath, bleeding, nausea or vomiting, chestpain, or any unexpected problems, contact your Primary Care Provider. Call [facility] ([phone]) or report tothe closest Emergency Room. Call 911 if necessary. 08/27/24 1651 Cosigner Signature (if applicable): CC: Dr. Charan Arndt MD ~ Signed [facility]03-14-2025 Radiology Diagnostic study note [facility] Imaging Services [address], [place] [id number] Chest 1 View MR#: [id number] Acct: [id number] Name: ELIUD BLOUNT Rep #: [id number] : 1960 M 63 From: Raj Oliveira MD PCP: Dr. Charan Arndt MD Status: REG E R Study:Chest 1 View Date of Exam: Exam# [id number] Ordering Dr: Miguel Ángel Liao MD PROCEDURE: CHEST 1 VIEW 08/27/2024 REASON FOR EXAM: NEURO DEFICIT, ACUTE, STROKE SUSPECTED TECHNIQUE: Frontal view of the chest. COMPARISON: Comparison is made with prior study dated March 28, 2024. FINDINGS: EKG electrodes are seen. Hyperinflation and COPD. Stable increased markings at the lung apices suggestive of scarring. Stable blunting of the right costophrenic angle. Tortuosity of the descending thoracic aorta. RAD/Chest 1 View IMPRESSION: Stable examination. Reading Location: [facility]- CC: Dr. Miguel Ángel Liao MD; Dr. Charan Arndt MD ~ Galley Hand: Signed [facility]03-14-2025 Radiology Diagnostic study note [facility] Imaging Services [address] [place], [place] [id number] STROKE CTA Head AND Neck W/Con MR#: [id number] Acct: [id number] Name: ELIUD BLOUNT Rep #: [id number] : 1960 M 63 From: Raj Oliveira MD PCP: Dr. Charan Arndt MD Status: REG E R Study:STROKE CTA Head AND Neck W/Con Date of Exam: 08/27/24 Exam# [id number] Ordering Dr: Miguel Ángel Liao MD PROCEDURE: STROKE CTA HEAD AND NECK W/CON REASON FOR EXAM: NEURO DEFICIT, ACUTE, STROKE SUSPECTED TECHNIQUE: CTA imaging of the head and neck from the aortic arch to the skull vertex with intravenous contrast. 3D reconstructions. CONTRAST: 100 cc of Isovue-300. COMPARISON: Comparison is made with prior CT scan of the head done earlier in the day. FINDINGS: Aortic Arch: Normal size and branching pattern. No significant atherosclerotic plaque. Brachiocephalic and Subclavians: Unremarkable RIGHT Carotid: Right CCA: Unremarkable. Right ICA: Minimal plaque at the origin of the right internal carotid artery. Maximum stenosis (NASCET): <50% % Right ECA: Unremarkable. LEFT Carotid: Left CCA: Unremarkable. Left ICA: Unremarkable. Left ECA: Unremarkable. Vertebrals: Codominant. Arise from the subclavians. Both vertebrals form the basilar. RIGHT Vertebral: Unremarkable. LEFT Vertebral: Unremarkable. No intracranial aneurysms or large vascular malformations are identified. Anterior cerebral arteries: Unremarkable. Middle cerebral arteries: Unremarkable. Basilar artery: Unremarkable. Posterior cerebral arteries: Unremarkable. Other major branches of the posterior circulation: Unremarkable. Major venous structures: Unremarkable. Other findings: No lymphadenopathy. Lung apices are clear. Bones are unremarkable. CT/STROKE CTA Head AND Neck W/Con IMPRESSION: RIGHT CAROTID: Minimal plaque at the origin of the right internal carotid artery. LEFT CAROTID: Unremarkable VERTEBRALS: Unremarkable INTRACRANIAL: Unremarkable One or more dose reduction techniques were used (e.g., Automated exposure control, adjustment of the mA and/or kV according to patient size, use of iterative reconstruction technique). Red Alert: The critical information above was relayed directly by me by telephone to Miguel Ángel Liao on 08/27/2024 at 2:50 pm with readback verification. Reading Location: [place] [address] CC: Dr. Miguel Ángel Liao MD; Dr. Charan Arndt MD ~ Galley Hand: Signed [facility]03-14-2025 Radiology Diagnostic study note [facility] Imaging Services [address] [place] [address] STROKE Brain/Head without Cont MR#: [id number] Acct: [id number] Name: ELIUD BLOUNT Rep #: [id number] : 1960 M 63 From: Raj Oliveira MD PCP: Dr. Charan Arndt MD Status: REG E R Study:STROKE Brain/Head without Cont Date of Exam: 08/27/24 Exam# [id number] Ordering Dr: Miguel Ángel Liao MD EXAM: STROKE BRAIN/HEAD WITHOUT CONT CLINICAL HISTORY: NEURO DEFICIT, ACUTE, STROKE SUSPECTED COMPARISON: Comparison is made with prior study dated March 29, 2024. TECHNIQUE: Multiple axial tomographic images were obtained without intravenous contrast administration. Coronal and sagittal reconstruction was obtained as well. 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 There is evidence of encephalomalacia at that site. No new bleed or acute stroke is seen. CT/STROKE Brain/Head without Cont IMPRESSION: No acute stroke is seen. Red Alert: No acute stroke is seen. The critical information above was relayed directly by me by telephone to Miguel Ángel Liao on 08/27/2024 at 2:36 pm with readback verification. Reading Location: [place] [address] CC: Dr. Miguel Ángel Liao MD; Dr. Charan Arndt MD ~ Galley Hand: Signed [facility]01-23-2025 History of Present illness Narrative* Anette Becerra RT(R) - 07/08/2024 3:30 PM EST Radiology Service Progress Note PATIENT NAME: Eliud Blount DATE OF SERVICE: July 08, 2024 TIME: 3:29 PM PATIENT IDENTITY VERIFICATION COMPLETED USING TWO (2) IDENTIFIERS: Name and Date of confirmedby patient verbally. FALL SCREENING: Has the patient had 2 falls in the last year or 1 fall with injury or currently using an Ambulatory Assistive Device (Walker, Cane, Wheelchair, Crutches, etc.)? No PATIENT GENDER DATA: Assigned male at PATIENT RELEVANT IMPLANT DATA REVIEWED: Not Applicable PATIENT PRESENTS WITH AN IMPLANTABLE OR ATTACHED BUSINESS ANALYST SALES OPERATIONS: No RADIOLOGY DEPARTMENT: General X-ray: Exam(s) Completed: Chest X-Ray PERIPHERAL IV DATA: Not applicable SIGNED BY: RT Alex(R) July 08, 2024 3:29 PM documented in this encounterUniversity [facility]als [facility]01-23-2025 NoteHNO ID: [id number] Author: ANETTE BECERRA RT(Basim) Service: Radiology Author Type: Technologist Type: Progress Notes Filed: 07/08/2024 15:37 Note Text: Radiology Service Progress Note PATIENT NAME: Eliud Blount DATE OF SERVICE: July 08, 2024 TIME: 3:29 PM PATIENT IDENTITY VERIFICATION COMPLETED USING TWO (2) IDENTIFIERS: Name and Date of confirmed by patient verbally. FALL SCREENING: Has the patient had 2 falls in the last year or 1 fall with injury or currently using an Ambulatory Assistive Device (Walker, Cane, Wheelchair, Crutches, etc.)? No PATIENT GENDER DATA: Assigned male at PATIENT RELEVANT IMPLANT DATA REVIEWED: Not Applicable PATIENT PRESENTS WITH AN IMPLANTABLE OR ATTACHED BUSINESS ANALYST SALES OPERATIONS: No RADIOLOGY DEPARTMENT: General X-ray: Exam(s) Completed: Chest X-Ray PERIPHERAL IV DATA: Not applicable SIGNED BY: RT Alex(Basim) July 08, 2024 3:29 [facility]01-23-2025 NoteHNO ID: [id number] Author: JACKY FERRERA APRN.OIL PLANT OPERATOR Service: ? Author Type: Nurse Practitioner Type: Progress Notes Filed: 07/08/2024 16:04 Note Text: Subjective HPI Nontoxic-appearing male presents urgent care chief complaint cough chest congestion sinus pressure. Duration of symptom 1 to 2 months. Associated symptoms listed above. Presents today for evaluation. States history of COPD. Investment Broker recommended using Mucinex. This is not helped. Denies any fevers. Denies any chest pain or hemoptysis. Cough is productive. Does have some increased shortness of breath. Past medical history prescription medications allergies reviewed. .Patient presents with: Cough: Chest congestion, SOB, runny nose, nasal congestion, productive, thick green/brown phlegm, bloody sinueses x 1-2 months PAST MEDICAL HISTORY Diagnosis Date Acute hypoxemic [...] PAST SURGICAL HISTORY OF 1991 left ankle surgery-removal of bone chip PAST SURGICAL HISTORY OF bilateral repair of tennis elbow RPR 1ST INGUN HRNA AGE 7 YRS/> REDUCIBLE 1991 Bilateral Hernia repair, inguinal - laparoscopic - Dr. Alanis RPR 1ST INGUN HRNA AGE 7 YRS/> REDUCIBLE 01/28/2008 Left Open repair RPR UMBILICAL HRNA 5 YRS/> REDUCIBLE simple ALLERGIES Day-Nite Severe Cold-Flu [Mlgdmms-Ny-Bb-Acetaminophen-Gg], Dextromethorphan, Doxylamine, Pseudoephedrine, Sertraline, Zoloft [Sertraline Hcl], Baclofen, and Nyquil [Sdffkcjhy-Apa-Az-Acetaminophen] MEDICATIONS fluticasone (FLONASE) 50 mcg/actuation nasal spray Use 2 Sprays in each nostril once daily. MUCUS RELIEF ER 1,200 mg Ta12 Take 1 tablet by mouth every 12 hours. amitriptyline (ELAVIL) 100 mg tablet Take 1 tablet by mouth daily at bedtime. Prescribed by neurology divalproex (DEPAKOTE) 250 mg EC tablet Take 2 tablets by mouth three times a day. Prescribed by neurology gabapentin (NEURONTIN) 600 mg tablet Take 1 tablet by mouth three times a day. Prescribed by neurology ibuprofen (MOTRIN) 200 mg tablet Take 2 tablets by mouth every 6 hours as needed for pain (Take with food.). albuterol (PROVENTIL) 5 mg/mL nebu Inhale 0.5 [...] daily before breakfast. 1/2 hr before meal. wjlobetzzac-aoocokdnn-aemudrxn (TRELEGY ELLIPTA) 100-62.5-25 mcg Inhale 1 Puff as instructed once daily. levETIRAcetam (KEPPRA) 500 mg tablet twice daily. albuterol HFA (VENTOLIN HFA) 90 mcg/actuation inhaler [...] No Comment: Rarely Drug use: No BP 131/80 Pulse 93 Temp 36.9 ?C (98.4 ?F) Resp 20 Wt 60 kg (132 lb 4.4 oz) SpO2 98% BMI 20.72 kg/m? Review of Systems Constitutional: Negative for chills, fever and malaise/fatigue. HENT: Positive for congestion and sinus pain. Negative for ear discharge, ear pain and sore throat. Eyes: Negative for blurred vision, pain, discharge and redness. Respiratory: Positive for sputum production and shortness of breath. Ne (more content not included)...[facility]01-23-2025 History of Present illness Narrative* Jacky Ferrera APRN.OIL PLANT OPERATOR - 07/08/2024 3:15 PM EST Subjective HPI Nontoxic-appearing male presents urgent care chief complaint cough chest congestion sinus pressure.Duration of symptom 1 to 2 months. Associated symptoms listed above. Presents today for evaluation.States history of COPD. Investment Broker recommended using Mucinex. This is not helped. Denies any fevers. Denies any chest pain or hemoptysis. Cough is productive. Does have some increased shortness ofbreath. Past medical history prescription medications allergies reviewed. .Patient presents with: Cough: Chest congestion, SOB, runny nose, nasal congestion, productive, thick green/brown phlegm, bloody sinueses x 1-2 months 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 CERVICAL DISC DISPLACMNT 01/28/2007 Cervicalgia 07/29/2006 Chronic obstructive pulmonary disease (COPD) ([facility]) DEPRESSIVE DISORDER NEC 07/29/2006 Diabetes ([facility]) Headache(784.0) 07/29/2006 Hypertension Intracranial injury of [...] PAST SURGICAL HISTORY OF 1991 left ankle surgery-removal of bone chip PAST SURGICAL HISTORY OF bilateral repair of tennis elbow RPR 1ST INGUN HRNA AGE 7 YRS/> REDUCIBLE 1991 Bilateral Hernia repair, inguinal - laparoscopic - Dr. Alanis RPR 1ST INGUN HRNA AGE 7 YRS/> REDUCIBLE 01/28/2008 Left Open repair RPR UMBILICAL HRNA 5 YRS/> REDUCIBLE simple ALLERGIES Day-Nite Severe Cold-Flu [Bzydxdj-Ef-Zo-Acetaminophen-Gg], Dextromethorphan, Doxylamine, Pseudoephedrine, Sertraline, Zoloft [Sertraline Hcl], Baclofen, and Nyquil [Zrokqrjej-Wbe-Wa-Acetaminophen] MEDICATIONS fluticasone (FLONASE) 50 mcg/actuation nasal spray Use 2 Sprays in each nostril once daily. MUCUS RELIEF ER 1,200 mg Ta12 Take 1 tablet by mouth every 12 hours. amitriptyline (ELAVIL) 100 mg tablet Take 1 tablet by mouth daily at bedtime. Prescribed by neurology divalproex DR (DEPAKOTE) 250 mg EC tablet Take 2 tablets by mouth three times a day. Prescribed by neurology gabapentin (NEURONTIN) 600 mg tablet Take 1 tablet by mouth three times a day. Prescribed by neurology ibuprofen (MOTRIN) 200 mg tablet Take 2 tablets by mouth every 6 hours as needed for pain (Take with food.). albuterol (PROVENTIL) 5 mg/mL nebu Inhale 0.5 [...] daily before breakfast. 1/2 hr before meal. cndqfluwvdh-muggviudq-usbrcivo (TRELEGY ELLIPTA) 100-62.5-25 mcg Inhale 1 Puff as instructed once daily. levETIRAcetam (KEPPRA) 500 mg tablet twice daily. albuterol HFA (VENTOLIN HFA) 90 mcg/actuation inhaler Inhale 2 Puffs as instructed every 4 hours asneeded for Wheezing/Shortness of Breath. multivitamin tablet Take [...] No Comment: Rarely Drug use: No BP 131/80 Pulse 93 Temp 36.9 C (98.4 F) Resp 20 Wt 60 kg (132 lb 4.4 oz) SpO2 98% BMI 20.72 kg/m Review of Systems Constitutional: Negative for chills, fever and malaise/fatigue. HENT: Positive for congestion and sinus pain. Negative for ear discharge, ear pain and sore throat. Eyes: Negative for blurred vision, pain, discharge and redness. Respiratory: Positive for sputum production and shortness of breath. Negative for cough, hemoptysis, wheezing and stridor. Cardiovascular: Negative for chest pain. Gastrointestinal: Negative for abdominal pain, diarrhea, nausea and vomiting. Musculoskeletal: Negative for myalgias. Skin: Negative for itching and rash. Neurological: Negative for dizziness and headaches. Objective Physical Exam Constitutional: General: He is not in acute distress. Appearance: He is not diaphoretic. HENT: Head: Normocephalic. Jaw: No trismus, tenderness, swelling or pain on movement. Nose: Congestion present. Right Sinus: Maxillary sinus tenderness present. Left Sinus: Maxillary sinus tenderness present. Mouth/Throat: Mouth: Mucous membranes are moist. Pharynx: Oropharynx is clear. Uvula midline. No pharyngeal swelling, oropharyngeal exudate, posterior oropharyngeal erythema or uvula swelling. Eyes: Conjunctiva/sclera: Conjunctivae normal. Pupils: Pupils are equal, round, and reactive to light. Cardiovascular: Rate and Rhythm: Normal rate and regular rhythm. Heart sounds: Normal heart sounds. Pulmonary: Effort: Pulmonary effort is normal. No tachypnea, accessory muscle usage or respiratory distress. Breath sounds: No stridor. Wheezing present. No rhonchi or rales. Abdominal: General: There is no distension. Palpations: Abdomen is soft. Tenderness: There is no abdominal tenderness. There is no guarding or rebound. Musculoskeletal: Cervical back: Normal range of motion and neck supple. No edema, erythema, rigidity or tenderness. No pain with movement. Normal range of motion. Lymphadenopathy: Cervical: No cervical adenopathy. Skin: General: Skin is warm and dry. Neurological: Mental Status: He is alert and oriented to person, place, and time. ASSESSMENT/PLAN: 1. Subacute cough - ICD9: 786.2, ICD10: R05.2 (primary diagnosis) - XR CHEST 2V FRONTAL/LAT 2. COPD with exacerbation (HCC) - ICD9: 491.21, ICD10: J44.1 IMPRESSION: Findings very similar to the previous study. No acute findings noted on x-ray. Treat as COPD exacerbation. Encourage follow- up with pulmonology. Patient was educated on supportive therapies. Patient will follow up with primary care provider as needed. Patient was instructed to immediately proceed to emergency room for any new, worsening, or symptoms lasting longer than anticipated. The patient's clinical presentation is otherwise unremarkable at this time. Based on exam and clinical finding, the patient is stable for discharge. Plan of care was discussed with patient. Patient verbalizes understanding and agrees to plan of care. This note was generated using [employer] software. It may contain errors in wording, punctuation, or spelling. Jacky Ferrera APRN.OIL PLANT OPERATOR documented in this encounterUniversity Hospitals [facility]12-27-2024 Telephone encounter Note * Telephone Encounter - Elise Proctor RN - 06/11/2024 4:54 PM EST Idris from [facility] calling and states they are now pt's pharmacy and he is [facility] for pt's Prednisone and Doxycycline. Explained to Idris that [facility] does not order senior living prescriptions and is not pt's PCP. Also explained that Prednisone and Doxycycline are not terminal computer operator meds. Pt would not be receiving these meds from his mail order pharmacy. Also noted that ptdoes not have [facility] down as his pharmacy. Called and spoke with pt about all of the above. Pt states that yes he is going to start using [facility] and keep [facility] as his local pharmacy. In talking with pt, he states he is still having some URI symptoms and sinus issues. Was last seen in [facility] on 05/19/24 and was prescribed Prednisone, Doxycycline and Augmentin. Pt has a history of COPD and does have an appt with his lung doctor on Friday afternoon. He will follow up with them and call us back if needed. Pharmacies and phone numbers updated. [facility]12-27-2024 Miscellaneous Notes* Telephone Encounter - Elise Proctor RN - 06/11/2024 4:54 PM EST Idris from [facility] calling and states they are now pt's pharmacy and he is requesting [facility]ills [facility] for pt's Prednisone and Doxycycline. Explained to Idris that [facility] does not order terminal computer operator prescriptions and is not pt's PCP. Also explained that Prednisone and Doxycycline are not terminal computer operator meds. Pt would not be receiving these meds from his mail order pharmacy. Also noted that ptdoes not have [facility] down as his pharmacy. Called and spoke with pt about all of the above. Pt states that yes he is going to start using [facility] and keep [facility] as his local pharmacy. In talking with pt, he states he is still having some URI symptoms and sinus issues. Was last seen in [facility] on 05/19/24 and was prescribed Prednisone, Doxycycline and Augmentin. Pt has a history of COPD and does have an appt with his lung doctor on Friday afternoon. He will follow up with them and call us back if needed. Pharmacies and phone numbers updated. documented in this encounterUniversity Hospitals [facility]age [facility] Center12-12-2024 Evaluation note* Diagnosis Onset Date Resolution Status Admit Date Cervical myelopathy with cervical radiculopathy acute May 27, 2024 1:26pm Chronic respiratory failure chronic June 14, 2024 2:43pm Nicotine dependence, cigarettes, uncomplicated chronic Decemb er 2023 2:43pm LACEY (obstructive sleep apnea) chroni c June 14, 2024 2:43pm Stage 4 very severe COPD by GOLD classification chronic May 2:43pm Cervical radiculopathy acute Ja nuary 2024 1:32pm Chronic respiratory failure chronic July 27, 2024 12:52pm Nicotine dependence, cigarettes, uncomplicated chronic Februa ry 2024 12:52pm LACEY (obstructive sleep apnea) chroni c July 27, 2024 12:52pm Stage 4 very severe COPD by GOLD classification chronic July 12:52pm Closed head injury acute August 27, 2024 5:01pm Mental status, decreased acute August 27, 2024 5:01pm Unresponsive acute August 27, 2024 5:01pm COPD (chronic obstructive pulmonary disease) chronic August 27, 2 025 5:01pm [facility] Work Phone: [phone] 169-190912-04-2024 Instructions* Patient Instructions* Josefina Parsons APRN.CNP - 05/19/2024 5:19 PM EST ASSESSMENT/PLAN: 1. COPD with exacerbation (HCC) - ICD9: 491.21, ICD10: J44.1 (primary diagnosis) - PREDNISONE 10 MG TABLET - DOXYCYCLINE MONOHYDRATE 100 MG TABLET 2. Bacterial sinusitis - ICD9: 473.9, 041.9, ICD10: J32.9, B96.89 - Will begin treatment with as per antibiotic as written, see orders - Supportive care with plenty of fluids, rest, and analgesia prn. - AMOXICILLIN 875 MG-POTASSIUM CLAVULANATE 125 MG TABLET - Follow-up with your PCP in 3-5 days if symptoms have not improved or sooner if symptoms worsen - Discussed red flags and need for immediate medical evaluation if any occur. - Discussed supportive care treatment with fluids, rest and analgesia. - Discussed expected course of illness Josefina Parsons APRN.CNP documented in this encounterUniversity Hospitals Portage [facility] Center12-04-2024 NoteHNO ID: [id number] Author: JOSEFINA PARSONS APRN.ASHOK Service: ? Author Type: Nurse Practitioner Type: Progress Notes Filed: 05/19/2024 17:19 Note Text: Subjective Cough Associated symptoms include sore throat, shortness of breath and wheezing. Pertinent negatives include no chest pain, no chills, no ear pain and no myalgias. Eliud Blount is a 63 year old male who presents with 2 weeks of cough, sinus pressure, drainage and congestion. Has history of COPD and states cough is productive of sputum which is thicker and more quantity than typical for him. He has not had a fever. He feels short of breath all the time. He has been using his inhaler and nebulizer at home. Review of Systems Constitutional: Negative for chills, fever and malaise/fatigue. HENT: Positive for congestion, sinus pain and sore throat. Negative for ear pain. Respiratory: Positive for cough, sputum production, shortness of breath and wheezing. Cardiovascular: Negative for chest pain. Gastrointestinal: Negative for diarrhea, nausea and vomiting. Musculoskeletal: Negative for myalgias. BP 142/80 Pulse 96 Temp 36.6 ?C (97.8 ?F) (Tympanic) Resp 18 Wt 57 kg (125 lb 10.6 oz) SpO2 96% BMI 19.68 kg/m? 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 CERVICAL DISC DISPLACMNT 01/28/2007 Cervicalgia 07/29/2006 Chronic obstructive pulmonary disease (COPD) ([facility]) DEPRESSIVE DISORDER NEC 07/29/2006 Diabetes ([facility]) Headache(784.0) 07/29/2006 Hypertension Intracranial injury of [...] PAST SURGICAL HISTORY OF 1991 left ankle surgery-removal of bone chip PAST SURGICAL HISTORY OF bilateral repair of tennis elbow RPR 1ST INGUN HRNA AGE 7 YRS/> REDUCIBLE 1991 Bilateral Hernia repair, inguinal - laparoscopic - Dr. Alanis RPR 1ST INGUN HRNA AGE 7 YRS/> REDUCIBLE 01/28/2008 Left Open repair RPR UMBILICAL HRNA 5 YRS/> REDUCIBLE simple ALLERGIES Day-Nite Severe Cold-Flu [Woejrhg-Ex-Qa-Acetaminophen-Gg], Dextromethorphan, Doxylamine, Pseudoephedrine, Sertraline, Zoloft [Sertraline Hcl], Baclofen, and Nyquil [Pewhnnrgo-Mji-Tz-Acetaminophen] MEDICATIONS amitriptyline (ELAVIL) 100 mg tablet Take 1 tablet by mouth daily at bedtime. Prescribed by neurology divalproex DR (DEPAKOTE) 250 mg EC tablet Take 2 tablets by mouth three times a day. Prescribed by neurology gabapentin (NEURONTIN) 600 mg tablet Take 1 tablet by mouth three times a day. Prescribed by neurology ibuprofen (MOTRIN) 200 mg tablet Take 2 tablets by mouth every 6 hours as needed for pain (Take with food.). albuterol (PROVENTIL) 5 mg/mL nebu Inhale 0.5 [...] daily before breakfast. 1/2 hr before meal. jzqqaydkkdm-zkcswevwf-omntyeiq (TRELEGY ELLIPTA) 100-62.5-25 mcg Inhale 1 Puff as instructed once daily. levETIRAcetam (KEPPRA) 500 mg tablet twice daily. albuterol HFA (VENTOLIN HFA) 90 mcg/actuation inhaler Inhale 2 Puffs as instructed every 4 hours as needed for Wheezing/Shortness of Breath. multivitamin tablet Take 1 tablet by mouth once daily. predniSONE (DELTASONE) 10 mg tablet Take 6 tabs for 3 days, then 4 tabs for 3 days, then 2 tabs for 3 days then 1 tab for 3 days with food. doxycycline monohydrate 100 mg tablet Take 1 tablet by mouth two times a day for 5 days. amoxicillin-clavulanate potassium (AUGMENTIN) 875-125 mg per tablet Take 1 tablet by mouth two times a day for 5 days. FAMILY HISTORY Problem Relation Age of Onset Heart Father Alzheimer's Disease Father Diabetes Mother Hypertension Mother Social History Tobacco Use Smoking status: Every Day Current packs/day: 0.50 Average packs/day: 0.5 packs/day for 28.0 years (14.0 ttl pk-yrs) Types (more content not included)...[facility]12-04-2024 History of Present illness Narrative* Josefina Parsons APRN.OIL PLANT OPERATOR - 05/19/2024 5:16 PM EST Subjective Cough Associated symptoms include sore throat, shortness of breath and wheezing. Pertinent negatives include no chest pain, no chills, no ear pain and no myalgias. Eliud Blount is a 63 year old male who presents with 2 weeks of cough, sinus pressure, drainage and congestion. Has history of COPD and states cough is productive of sputum which is thicker and more quantity than typical for him. He has not had a fever. He feels short of breath all the time. He has been using his inhaler and nebulizer at home. Review of Systems Constitutional: Negative for chills, fever and malaise/fatigue. HENT: Positive for congestion, sinus pain and sore throat. Negative for ear pain. Respiratory: Positive for cough, sputum production, shortness of breath and wheezing. Cardiovascular: Negative for chest pain. Gastrointestinal: Negative for diarrhea, nausea and vomiting. Musculoskeletal: Negative for myalgias. BP 142/80 Pulse 96 Temp 36.6 C (97.8 F) (Tympanic) Resp 18 Wt 57 kg (125 lb 10.6 oz) VnW523% BMI 19.68 kg/m PAST MEDICAL HISTORY Diagnosis Date Acute [...] PAST SURGICAL HISTORY OF 1991 left ankle surgery-removal of bone chip PAST SURGICAL HISTORY OF bilateral repair of tennis elbow RPR 1ST INGUN HRNA AGE 5 YRS/> REDUCIBLE 1991 Bilateral Hernia repair, inguinal - laparoscopic - Dr. Alains RPR 1ST INGUN HRNA AGE 5 YRS/> REDUCIBLE 01/28/2008 Left Open repair RPR UMBILICAL HRNA 5 YRS/> REDUCIBLE simple ALLERGIES Day-Nite Severe Cold-Flu [Jqrgrmo-Pz-Pa-Acetaminophen-Gg], Dextromethorphan, Doxylamine, Pseudoephedrine, Sertraline, Zoloft [Sertraline Hcl], Baclofen, and Nyquil [Vtwamrigf-Rvz-Wp-Acetaminophen] MEDICATIONS amitriptyline (ELAVIL) 100 mg tablet Take 1 tablet by mouth daily at bedtime. Prescribed by neurology divalproex (DEPAKOTE) 250 mg EC tablet Take 2 tablets by mouth three times a day. Prescribed by neurology gabapentin (NEURONTIN) 600 mg tablet Take 1 tablet by mouth three times a day. Prescribed by neurology ibuprofen (MOTRIN) 200 mg tablet Take 2 tablets by mouth every 6 hours as needed for pain (Take with food.). albuterol (PROVENTIL) 5 mg/mL nebu Inhale 0.5 [...] daily before breakfast. 1/2 hr before meal. kmkgyqflwgv-ufyqhnkdq-qwbwxdqm (TRELEGY ELLIPTA) 100-62.5-25 mcg Inhale 1 Puff as instructed once daily. levETIRAcetam (KEPPRA) 500 mg tablet twice daily. albuterol HFA (VENTOLIN HFA) 90 mcg/actuation inhaler Inhale 2 Puffs as instructed every 4 hours asneeded for Wheezing/Shortness of Breath. multivitamin tablet Take 1 tablet by mouth once daily. predniSONE (DELTASONE) 10 mg tablet Take 6 tabs for 3 days, then 4 tabs for 3 days, then 2 tabs for3 days then 1 tab for 3 days with food. doxycycline monohydrate 100 mg tablet Take 1 tablet by mouth two times a day for 5 days. amoxicillin-clavulanate potassium (AUGMENTIN) 875-125 mg per tablet Take 1 tablet by mouth two times a day for 5 days. FAMILY HISTORY Problem Relation Age of Onset Heart Father Alzheimer's Disease Father Diabetes Mother Hypertension Mother Social History Tobacco Use Smoking status: Every Day Current packs/day: 0.50 Average packs/day: 0.5 packs/day for 28.0 years (14.0 ttl pk-yrs) Types: Cigarettes Smokeless tobacco: Never Tobacco comments: trying to quit smoke 10cigs daily Substance Use Topics Alcohol use: No Comment: Rarely Drug use: No Objective Physical Exam Vitals and nursing note reviewed. Constitutional: Appearance: Normal appearance. HENT: Right Ear: Tympanic membrane, ear canal and external ear normal. Left Ear: Tympanic membrane, ear canal and external ear normal. Nose: Mucosal edema, congestion and rhinorrhea present. Mouth/Throat: Mouth: Mucous membranes are moist. Pharynx: Oropharynx is clear. Uvula midline. No oropharyngeal exudate or posterior oropharyngeal erythema. Cardiovascular: Rate and Rhythm: Normal rate and regular rhythm. Heart sounds: Normal heart sounds. Pulmonary: Effort: Pulmonary effort is normal. No respiratory distress. Breath sounds: Examination of the right-upper field reveals wheezing. Examination of the left-upperfield reveals wheezing. Examination of the right- lower field reveals wheezing. Examination of the left-lower field reveals wheezing. Wheezing present. No rales. Musculoskeletal: Cervical back: Neck supple. Lymphadenopathy: Cervical: No cervical adenopathy. Skin: General: Skin is warm and dry. Findings: No erythema or rash. Neurological: Mental Status: He is alert. ASSESSMENT/PLAN: 1. COPD with exacerbation (HCC) - ICD9: 491.21, ICD10: J44.1 (primary diagnosis) - PREDNISONE 10 MG TABLET - DOXYCYCLINE MONOHYDRATE 100 MG TABLET 2. Bacterial sinusitis - ICD9: 473.9, 041.9, ICD10: J32.9, B96.89 - Will begin treatment with as per antibiotic as written, see orders - Supportive care with plenty of fluids, rest, and analgesia prn. - AMOXICILLIN 875 MG-POTASSIUM CLAVULANATE 125 MG TABLET - Follow-up with your PCP in 3-5 days if symptoms have not improved or sooner if symptoms worsen - Discussed red flags and need for immediate medical evaluation if any occur. - Discussed supportive care treatment with fluids, rest and analgesia. - Discussed expected course of illness Josefina Parsons APRN.OIL PLANT OPERATOR documented in this encounterUniversity Hospitals Portage [facility] Center11-05-2024 Telephone encounter Note * Telephone Encounter - Radha Lockwood NP - 04/20/2024 2:43 PM EST No change in gbn 800 mg tid, spoke with pharmacy clarifying filling rx from 05/2023 gbn 600 mg tid,discontinued. Was receiving 800 mg tid, ok to continue. Spoke with spouse updated. [id number] Miscellaneous Notes* Telephone Encounter - Radha Lockwood NP - 04/20/2024 2:43 PM EST No change in gbn 800 mg tid, spoke with pharmacy clarifying filling rx from 05/2023 gbn 600 mg tid,discontinued. Was receiving 800 mg tid, ok to continue. Spoke with spouse updated. Rx sent to new pharmacy * Telephone Encounter - Anjali Ellison - 04/20/2024 10:19 AM EST Patient's -Josefa- called and said Patient had been on Gabapentin 800mg 1 tablet three times daily Then he was decreased to Gabapentin 600mg 1 tablet 3 times daily Patient would like to go back on Gabapentin 800mg 1 tablet 3 times daily [facility], no info on them Josefa will have [facility] fax us a request w/ their info on it documented in [facility] encounterL[facility] [id number] Telephone encounter Note* Telephone Encounter - Anjali Ellison - 04/20/2024 10:19 AM EST Patient's -Josefa- called and said Patient had been on Gabapentin 800mg 1 tablet three times daily Then he was decreased to Gabapentin 600mg 1 tablet 3 times daily Patient would like to go back on Gabapentin 800mg 1 tablet 3 times daily [facility], no info on them Josefa will have [facility] fax us a request w/ their info on it [facility] [id number] [facility] Medical Records Department [address] [place] [id number] Discharge Summary 03/30/24 0712 MR#: [id number] Acct: [id number] Name: ELIUD BLOUNT Rep #: [id number] : 1960 63 From: Calvin Pedro MD PCP: Dr. Charan Arndt MD Status:DIS TEX Location: [place] [address] Providers Date of Admission: 03/28/24 Date of Discharge: 03/29/24 Primary Care Physician: Dr. Charan Arndt MD Consultations 03/28/24 19:31 Consult: Tele-Neurology Routine Consulting Provider: [facility] Reason for Consult: Acute Ischemic Stroke/TIA EMERGENT Consult: No MD Notified: Yes Date Notified: 03/28/24 Time Notified: 20:11 Method of Notification: Answering Service Nursing Unit Staff Notify [facility] of Tele-Neurology Consult: Yes Reason For Visit: SUSPECT CVA Diagnosis Discharge Diagnosis (1) Acute CVA (cerebrovascular accident): Status: Acute Code(s): I63.9 - Cerebral infarction, unspecified Plan Patient is a 63-year-old gentleman who presented with right weakness, decreased sensation. Suspicion of acute CVA entertained patient admitted to a monitored bed where he is currently undergoing further evaluation 1. Suspected CVA ??? Patient presented with right upper extremity weakness decree sensation as well as ataxia. Admitted to monitored bed undergoing subsequent evaluation with MRI 2D echo with bubble study as well as PT OT eval. As part of his management consult was placed to [facility] teleneurology???patient MRI came back negative for [facility] to undergo further evaluation to evaluate for peripheral cause including MRI of the cervical spine as well as EMG as outpatient. Patient was informed of this he however elected to sign out AGAINST MEDICAL ADVICE attempt made for patient to rescind his decision proved futile 2. COPD ??? Currently not in exacerbation aerosol treatment as needed 3. History of absent seizures ??? Symptoms controlled on Keppra and Depakote as well as gabapentin did continue 4. Tobacco dependence ??? Counseled on cessation, offered nicotine patch for tobacco cravings 5. DVT prophylaxis ??? On enoxaparin Time spent in the patient's overall evaluation,decision-making process, review of diagnostic data, adjustment of management, discussion with other providers, nursing nursing and ancillary staff involved in patient's care documentation, 40 Minutes Medications at Discharge Home Medications amitriptyline 100 mg tablet 100 mg PO QHS sleep 06/30/19 levetiracetam 500 mg tablet 500 mg PO DAILY Check with primary doctor 04/28/20 fluticasone fur. 200 mcg-umeclid 62.5 mcg-vilant 25 mcg inhalat.powder (Trelegy Ellipta) 1 inh inhalation DAILY #60 ea 09/24/23 gabapentin 600 mg tablet 600 mg PO TID 11/25/23 albuterol sulfate 90 mcg/actuation aerosol inhaler 2 puff inhalation Q4H PRN shortness of breath or wheezing #8.5 grams 03/15/24 albuterol sulfate 2.5 mg/3 mL (0.083 %) solution for nebulization 2.5 mg (3 mL) inhalation Q4H PRN #120 vials 03/24/24 divalproex 250 mg tablet,delayed release 750 mg PO BID 03/28/24 ibuprofen 200 mg tablet (Addaprin) 400 mg PO Q8H PRN pain 03/28/24 Weight / BMI Weight Weight: 55.4 kg Body Mass Index (BMI) 18.6 ABG / Lab / Microbiology Data 03/29/24 05:05 03/29/24 05:05 Laboratory: Laboratory Results - last 24 hr 03/29/24 05:05: Sodium 136, Potassium 4.0, Chloride 101, Carbon Dioxide 30.0, Anion Gap 5, BUN 12, C reatinine 0.49 L, Estim Creat Clear Calc 124.05, Est GFR (MDRD) Af Amer 223, Est GFR (MDRD) Non-Af 185, BUN/Creatinine Ratio 24.6 H, Glucose 80, Calcium 8.9, Total Bilirubin 0.40, AST 9 L, ALT 13 L, Alkaline Phosphatase 81, Total Protein 5.8 L, Albumin 2.8 L, Globulin 3.0, Albumin/Globulin Ratio 0.9, Triglycerides 78, Cholesterol 125, LDL Cholesterol 62, VLDL Cholesterol 16, HDL Cholesterol 47 Radiography Diagnostic Testing: Radiology Impression Brain MRI 03/28/24 18:08 IMPRESSION: 1. No MRI evidence of acute or subacute ischemic infarct or acute intracranial abnormality. 2. 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 3. No significant interval change when compared to MRI brain of 03/24/2019. Electronically Signed: Miguel Ángel Davis MD at 15:23 EDT , Echocardiogram 03/28/24 18:08 Interpretation Summary The estimated ejection fraction is 55 %. No evidence for diastolic dysfunction. Ordering Physician: P (more content not included)...[facility] 03-28-2024 NoteHNO ID: [id number] Author: VINITA LILLY APRN.ASHOK Service: ? Author Type: Nurse Practitioner Type: Progress Notes Filed: 03/28/2024 14:59 Note Text: Patient [facility] at [facility], here today with sudden onset contracture and weakness of right arm. Unable to use right arm. I will refer to ER. Visitor to drive pov to ER. Patient ambulating well unassisted. Talking in full sentences.[facility]10-13-2024 History of Present illness Narrative* Vinita Lilly APRN.ASHOK - 03/28/2024 2:58 PM EDT Patient triaged at [facility], here today with sudden onset contracture and weakness of right arm. Unable to use right arm. I will refer to ER. Visitor to drive pov to ER. Patient ambulating well unassisted. Talking in full sentences. documented in this encounterUniversity Hospitals Portage Medical Center09-10-2024 NotePatient Outreach (INTMMN) ELIUD BLOUNT ([id number]) 1960 M Date Time Provider Department 02/24/24 [...] it and was in the icu NYQUIL (NETQIGMDM-VND-CV-ACETAMIN*07/08/2007 5 - Intolerance Date Reviewed: 02/22/2024 Reviewed by: Madison Wagner LPN - Fully Assessed Visit Diagnosis:Medication management [Z79.899] Order(s):LIPID PANEL BASIC [SQLIPB] Order #: [id number] FUTURE Prescriptions as of 02/27/2024 - doxycycline [...] before breakfast. 1/2 hr before meal. - pjcpmygoqgc-prrkqwezp-dabbddlh (TRELEGY ELLIPTA) 100-62.5-25 mcg Inhale 1 Puff [...] NOS [E55.9] 04/30/2007 Rotator cuff dis NEC [UMP3725] 05/20/2007 08/07/2010 Brachial neuritis or radiculitis NOS [...] pulmonary disease (HCC) [J4*10/15/2023 Encounter Status:Closed by [employer], PRODUSER on 02/27/24[facility] 02-23-2024 Telephone encounter Note* Telephone Encounter - Sihla Roth MA - 02/23/2024 9:49 AM EDT Will send unable to reach letter to contact office for results & update ALL contact information. Shila Roth MA [facility]09-09-2024 Miscellaneous Notes* Telephone Encounter - Shila Roth MA - 02/23/2024 9:49 AM EDT Will send unable to reach letter to contact office for results & update ALL contact information. Shila Roth MA * Telephone Encounter - Radha Toledo MA - 02/23/2024 8:22 AM EDT both numbers are disconnected states that in the previous note. Radha Toledo MA * Telephone Encounter - Vinita Lilly APRN.CNP - 02/23/2024 7:20 AM EDT Please notify positive for covid. Is past treatment window for antiviral treatment and quarantine. Continue with plan of care as discussed during visit. documented in this encounterUniversity Hospitals Portage Medical Center09-09-2024 Telephone encounter Note * Telephone Encounter - Radha Toledo MA - 02/23/2024 8:22 AM EDT both numbers are disconnected states that in the previous note. Radha Toledo MA [facility]09-09-2024 Telephone encounter Note* Telephone Encounter - Vinita Lilly APRN.CNP - 02/23/2024 7:20 AM EDT Please notify positive for covid. Is past treatment window for antiviral treatment and quarantine. Continue with plan of care as discussed during visit. [facility] Work Phone: [phone]) 862-760309-08-2024 NoteHNO ID: [id number] Author: XOCHILT CABRALES APRN.CNP Service: ? Author Type: Nurse Practitioner Type: Progress Notes Filed: 02/22/2024 14:51 Note Text: Subjective The history is provided by the patient. No english language learner teacher was used. HPI Eliud Blount is a [...] No date: Chronic obstructive pulmonary disease (COPD) ([facility]) 07/29/2006: DEPRESSIVE DISORDER NEC No date: Diabetes ([facility]) 07/29/2006: Headache(784.0) No date: Hypertension No [...] have confirmed and edited as necessary, the [facility] Review of Systems Constitutional: Negative for chills [...] detail warranting prompt ER evaluation. Xochilt Cabrales APRN.[facility]09-08-2024 History of Present illness Narrative* Xochilt Cabrales APRN.[facility] - 02/22/2024 2:28 PM EDT Subjective The history is provided by the patient. No english language learner teacher was used. HPI Eliud Blount is a [...] No date: Chronic obstructive pulmonary disease (COPD) ([facility]) 07/29/2006: DEPRESSIVE DISORDER NEC No date: Diabetes ([facility]) 07/29/2006: Headache(784.0) No date: Hypertension No [...] have confirmed and edited as necessary, the [facility] Review of Systems Constitutional: Negative for chills [...] for higher level of care were discussed indetail warranting prompt ER evaluation. Xochilt Cbarales APRN.ASHOK documented in this encounterUniversity Hospitals Portage Medical Center08-20-2024 Instructions* Patient Instructions* Dotty Hidalgo APRN.CNP - 02/03/2024 2:28 PM [...] that cause allergies) or sexually transmitted infections. [place] [facility] caused by bacteria, viruses, and sexually transmitted infections can spread easilyfrom person to person, but is not a [...] vision increased sensitivity to light See your store manager (a doctor trained to treat eye conditions) or family doctor if you have any of these persistent symptoms. Ear infections also commonly occur in children who have bacterial conjunctivitis. The store manager will examine your eyes and possibly take [...] taken for several days. The infection should improvewithin a week. Take the medicine as instructed [...] conjunctivitis should be checked out by your store manager and an analysis consultant. It may disappear completely when the allergy [...] is most commonly spread during as the infant passes through the canal of an infected [...] shampoo and rinse with water to remove irritatingsubstances. Non-prescription artificial tears, a type of eye drops, may help relieve itching and burning from irritating substances. (Note: Other types of eye drops may irritate the eyes and should not be used.)Do not use the same bottle of drops in the other eye if it is not infected. How can I prevent spreading the infection? Don't touch or rub the infected eye(s). Wash your hands often with soap and warm water. Wash any discharge from your eyes twice a day using a fresh cotton ball or paper towel. Afterwards,discard the cotton ball and wash your hands [...] Centers for Disease Control and Prevention. Conjunctivitis ([facility] [facility]) Accessed 08/26/2013. [employer]. Conjunctivitis: What Is [place] [facility]? Accessed 08/26/2013. Copyright 9896-4076 [facility]. All rights reserved This information is provided by the [facility] and is not intended to replace the medical advice of your doctor or health care provider. Please consult your health care provider for advice about a specific medical condition. For additional health information, please contact the Center for Consumer Health Information at the [facility] or toll-free extension [phone]. If you prefer, you may visit [email or web address] or [email or web address]. documented in this encounterUniversity Hospitals Portage Medical Center08-20-2024 NoteHNO ID: [id number] Author: DOTTY HIDALGO APRN.OIL PLANT OPERATOR Service: ? Author Type: Nurse Practitioner Type: [...] and agreement with this plan. Dotty Hidalgo APRN.[facility] History of Present illness Narrative* Dotty Hidalgo APRN.ASHOK - 02/03/2024 2:21 PM EDT Patient presents with: Eye Problem: Bilat eye [...] agreement with this plan. Dotty Hidalgo APRN.ASHOK documented in this encounterUniversity Hospitals Portage Medical Center05-09-2024 Telephone encounter Note * Telephone Encounter - Zain Weiss MA - 10/23/2023 12:21 PM EDT Home phone listed - individual answering stated that was the wrong number. Removed from chart. TC to other line states it is no longer in service. Mailed pt letter asking for him to contact the office. [facility]05-09-2024 Miscellaneous Notes* Telephone Encounter - Zain Weiss MA - 10/23/2023 12:21 PM EDT Home phone listed - individual answering stated that was the wrong number. Removed from chart. TC to other line states it is no longer in service. Mailed pt letter asking for him to contact the office. * Telephone Encounter - Zain Weiss MA - 10/20/2023 12:15 PM EDT Left message to call office. 10/20/2023 12:15 PM * Telephone Encounter - Zain Weiss MA - 10/20/2023 12:02 PM EDT ----- Message from Alycia Arnold APRN.OIL PLANT OPERATOR sent at 10/20/2023 10:38 AM EDT ----- Please let the patient know chest x-ray findings consistent with COPD, otherwise normal. Follow-up with supervisor pressing department regarding SOB. Lab results were all within acceptable limits. Keep appointment with general surgery as scheduled Alycia Arnlod APRN.OIL PLANT OPERATOR documented in this encounterUniversity Hospitals Portage Medical Center05-07-2024 Discharge summary Author Fabricio Kwong [facility] October 21, 2023 2:51pm Note Date/Time October 21, 2023 10:52a [facility] [address] [place] [address] Emergency Department Summary 10/21/23 MR#: [id number] Acct: [id number] Name: ELIUD BLOUNT Rep #:[id number] : 1960 63 From: Fabricio Kwong MD PCP: Dr. Charan Arndt MD Status:REG E R Location: ED HPI History of Present Illness Chief Complaint: Shortness of Breath Informant: patient, spouse/S.O. and family Onset/Context/Timing Onset: Days Context: gradual Current Severity: Mild Maximum Severity: Mild Associated Symptoms Negative for cough Chest Pain: Positive for None Narrative Narrative: 63-year-old male history of COPD. He sees Dr. Dick of pulmonology. Recently was seen in the office by the nurse practitioner was given antibiotic which theythink was doxycycline which she finished over the last week. And a prednisone taper which is also finished last week. Today had more shortness of breath. Hedenies any cough. No sputum. No hemoptysis. No chest pain. No fever. No legpain or swelling. No history of DVT or PE or risk factors. No recent hospitalization. Patient was brought in by squad and believes he was given aerosols and route which improved him. He has a nebulizer inhaler at home. PE Risk Factors: Negative for Cancer, OCP + Smoking + > 35, Prior DVT or PE, Recent immobilization, Recent surgery, Recent travel or - Prior similar symptoms: Yes Recent Illness/Hospitalization: No PFSH PFS Medical History (Updated 10/21/23 @ 14:[address] Fabricio Kwong MD) Acute respiratory failure Bilateral tennis elbow Bipolar disorder COPD (chronic obstructive pulmonary disease) Depression Encephalopathy GERD (gastroesophageal reflux disease) Hoarseness Left ankle injury Lung nodule Migraine LACEY (obstructive sleep apnea) Pneumonia Pneumonia Pneumonia Sepsis Sleep-related breathing disorder Spinal stenosis Tobacco abuse Traumatic brain injury Home Medications amitriptyline 100 mg tablet 100 mg PO QHS sleep 06/30/19 [History Last Taken 08/21/19] pqmhncoe-ug-xgwlq 300 mcg-K 60 mcg-lycop 600 mcg-lutein 300 mcg tablet 1 tab PO DAILY supplement 06/30/19 [History Last Taken 08/21/19] omeprazole 20 mg capsule,delayed release 40 mg PO DAILY gerd 06/30/19 [History Last Taken 08/22/19] sertraline 50 mg tablet 50 mg PO DAILY anxiety 06/30/19 [History Last Taken 08/21/19] levetiracetam 500 mg tablet 500 mg PO DAILY Check with primary doctor 04/28/20 [History Last Taken Unknown] quetiapine 200 mg tablet 200 mg PO QHS Check with primary doctor 04/28/20 [History Last Taken Unknown] naproxen 500 mg tablet (Naprosyn) 500 mg PO BID PRN pain #20 tabs 03/10/22 [Rx Last Taken Unknown] divalproex 500 mg tablet,delayed release 750 mg PO BID Check with primary aiyptw23/03/22 [History Last Taken Unknown] albuterol sulfate 90 mcg/actuation aerosol inhaler 2 puff inhalation Q4H PRN shortness of breath or wheezing #8.5 grams 09/24/23 [Rx Last Taken Unknown] fluticasone fur. 200 mcg-umeclid 62.5 mcg-vilant 25 mcg inhalat.powder (Trelegy Ellipta) 1 inh inhalation DAILY #60 ea 09/24/23 [Rx Last Taken Unknown] gabapentin 800 mg tablet 800 mg PO QDAY 09/24/23 [History Last Taken Unknown] doxycycline hyclate 100 mg tablet 100 mg PO BID #20 tabs 10/06/23 [Rx Last Taken Unknown] prednisone 10 mg tablet 10 mg PO QDAY #30 tabs 10/06/23 [Rx Last Taken Unknown] albuterol sulfate 2.5 mg/3 mL (0.083 %) solution for nebulization 2.5 mg (3 mL) inhalation Q4H PRN COPD #25 vials 10/21/23 [Rx Last Taken Unknown] prednisone 20 mg tablet 40 mg (2 x 20 mg) PO DAILY 10 days #20 tabs 10/21/23 [Rx Last Taken Unknown] Allergy/AdvReac Type Severity Reaction Status Date / Time dextromethorphan HBr AdvReac Intermediate tachycardia, Verified 10/21/23 10:21 [From NyQuil] feels anxious doxylamine [From NyQuil] AdvReac Intermediate Tachycardia, Verified 10/21/23 10:21 feels anxious pseudoephedrine HCl AdvReac Intermediate Tachycardia, Verified 10/21/23 10:21 [From NyQuil] feels anxious sertraline HCl [From Zoloft] AdvReac Diarrhea Verified 10/21/23 10:21 Family History Father Dementia Alzheimers disease Diabetes Mother Diabetes Surgical History History of hernia repair Social History Smoking Status: Current every day smoker tobacco type: cigarettes Tobacco: How many years used: 30 second hand exposure: Yes alcohol intake: never substance use type: does not use ROS ROS ED ROS Narrative Shortness of breath. Wheezing. No chest pain. No cough. No fever. No sputum. No hemoptysis. Review of Systems ROS Unobtainable: Denies due to encephalopathy Constitutional Constitutional ED: Denies chills or fever(s) Eyes Eyes: Denies blurry vision ENT ENT ED: Denies ear pain Cardiovascular Cardiovascular: Denies chest pain Respiratory/Chest Respiratory/Chest: Reports dyspnea; Denies cough Gastrointestinal Gastrointestinal: Denies abdominal pain or constipation Genitourinary Genitourinary ED: Denies dysuria or hematuria Musculoskeletal Musculoskeletal: Denies arthralgias or back pain Integumentary Denies abscess or Abrasions Neurologic Neurologic: Denies headache(s) Psychiatric Psychiatric: Denies anxiety or depression Endocrine Endocrinology: Denies cold intolerance Hematologic/Lymphatic Hematologic/Lymphatic: Denies easy bleeding, easy bruising or lymphadenopathy Allergic/Immunologic Allergic/Immunologic ED: Denies mouth swelling, tongue swelling or urticaria EXAM Physical Exam Narrative Exam Narrative: Well-appearing 63-year-old male. Vital signs stable afebrile. Pulse ox 95% on room air no hypoxia. No distress. H EENT exam unremarkable. Moist mucous membranes. Neck nontender no JVD. Lungs clear to auscultation bilaterally. Ambar rhonchi or wheezing. Prolonged expiratory phase. Heart regular rhythm rate about 85 no murmur. Chest wall and ribs nontender. Abdomen soft nontender. Moving all 4 extremities. Calves are nontender without edema or cords. Neurologically is awake and alert with no focal motor deficits. Const Vital Signs: 10/21/23 10:21 10/21/23 10:21 10/21/23 10:24 Temperature 97.3 F L Temperature Source Oral Pulse Rate 89 86 Respiratory Rate 10 L 20 H Respiratory Effort Normal Non-Labored Respiratory Pattern Normal Blood Pressure 147/98 H 147/98 H Blood Pressure Mean 114 114 Pulse Ox 95 94 Oxygen Delivery Method Room Air Room Air Room Air 10/21/23 10:53 10/21/23 10:53 10/21/23 11:08 Temperature 97.3 F L Temperature Source Oral Pulse Rate 51 L 72 Respiratory Rate 74 H 20 H Respiratory Effort Respiratory Pattern Tachypnea Blood Pressure 136/101 H Blood Pressure Mean 112 Pulse Ox 95 95 Oxygen Delivery Method Room Air Room Air 10/21/23 12:20 10/21/23 12:23 10/21/23 13:00 Temperature 97.6 F L 98.1 F Temperature Source Temporal Temporal Pulse Rate 70 70 75 Respiratory Rate 13 13 12 Respiratory Effort Respiratory Pattern Blood Pressure 147/89 H 147/89 H 129/93 H Blood Pressure Mean 108 108 105 Pulse Ox 93 94 93 Oxygen Delivery Method Room Air Room Air Room Air 10/21/23 14:00 Temperature 97.1 F L Temperature Source Temporal Pulse Rate 87 Respiratory Rate 25 H Respiratory Effort Respiratory Pattern Blood Pressure 133/92 H Blood Pressure Mean 105 Pulse Ox 94 Oxygen Delivery Method Room Air Positive well nourished and well developed; Negative for obese, cachectic, contractures or unkempt General Appearance ED: well developed and NAD; Negative for unkempt, cachectic, contractures or pallor Nutritional Appearance: Negative for cachectic or obese HEENT Reports moist mucous membranes; Denies dry mucous membranes atraumatic; Negative for trauma or tenderness Mouth ED: No dry mucous membranes Mouth: No dry mucous membranes Eyes PERRL and EOMs intact bilaterally General Eye ED: Negative for pale conjunctiva or scleral icterus Neck no lymphadenopathy, supple, no meningeal signs and no JVD General: Negative for tenderness Lymph Lymphatic: Negative for other Chest Wall Chest: Negative for other Resp normal respiratory effort and clear to auscultation bilaterally Effort and Inspection: Negative for pain with movement Auscultation: Negative for rales, rhonchi or wheezes Cardio regular rate, regular rhythm, S1 normal heart sound, S2 normal heart sound and no murmurs Rate: Negative for bradycardia, tachycardic or other Rhythm: Negative for abnormal rhythm GI non-tender, non-distended and no masses Inspection: Negative for other Auscultation: normoactive bowel sounds Palpation: soft; Negative for tender, guarding or rebound tenderness present Back/Spine no CVA tenderness and normal to inspection General Back: Negative for CVA tenderness Extremity normal to inspection General Extremety ED: Negative for edema, tenderness or other findings General Extremity: Negative for edema or other findings Neuro oriented x3 and CN's II-XII intact bilaterally Sensorium / Orientation: alert, oriented to person, oriented to place and oriented to time; Negative for orientation impaired, confused, lethargic or stuporous Motor Exam: strength 5/5 throughout Psych mental status grossly normal Appearance: Negative for unkempt Attitude: No agitated Mood & Affect: Negative for depressed, anxious or tearful Thought Process: normal thought process Skin no wounds and skin turgor normal General Skin Exam: Negative for jaundice or pallor Lesions: no lesions Rashes: no rashes Trauma: Negative for abrasion, laceration or puncture MDM MDM MDM Narrative Medical decision making narrative: 63-year-old male history of COPD complains of shortness of breath. He was treated with aerosols prior to arrival which is improved his symptoms greatly states. Denies any chest pain. No fever. Respiratory workup with DuoNeb and oral prednisone. Chest x-ray EKG and labs. Repeat exam patient is doing well at 2:40 pm. He would prefer to be dischargedhome. Currently he is not wheezing. He will be placed on prednisone 40 mg a day for 10 days. Albuterol for his nebulizer at home. Follow-up with Dr. Dick. Return if he is worse. I discussed all test results with he and family and they are comfortable with him going home and the follow-up plan. They know to return if he is worse. History & Record Review Discussion w/independent historian: Patient Additional record(s) reviewed:: Prior inpatient record, Prior outpatient record,Prior ED visit and Prior labs Lab Data Attestation: I reviewed the patient's lab results. Lab results narrative: CBC normal. White count of 7. H&H 14 and 45. Platelets 299. Electrolytes unremarkable gap 5. BUN 13 creatinine 0.6. Glucose 112. Troponin normal at 12. Labs: Laboratory Results - last 24 hr 10/21/23 10:30 WBC 7.2 RBC 5.00 Hgb 14.7 Hct 45.4 MCV 90.8 MCH 29.4 MCHC 32.4 RDW Std Deviation 47.3 H RDW Coeff of Aaron 14.1 Plt Count 299 MPV 9.4 Immature Gran % (Auto) 0.100 Neut % (Auto) 42.0 L Lymph % (Auto) 43.1 H Bond % (Auto) 9.8 Eos % (Auto) 4.3 Baso % (Auto) 0.7 Absolute Neuts (auto) 3.0 Absolute Lymphs (auto) 3.11 Nucleated RBC % 0 Sodium 138 Potassium 4.3 Chloride 104 Carbon Dioxide 29.0 Anion Gap 5 BUN 13 Creatinine 0.60 L Estim Creat Clear Calc 106.06 Est GFR (MDRD) Af Amer 176 Est GFR (MDRD) Non-Af 146 BUN/Creatinine Ratio 21.7 H Glucose 112 H Calcium 8.6 Troponin I High Sens 12 Radiography Chest X-Ray - ED: 1 View, Read by ED Physician, Heart, Mediastinum, Bony Structures, Chronic Changes and Right Effusion Diagnostic Testing: Clinical Impression(s) from Imaging Studies Chest X-Ray 10/21/23 10:50 IMPRESSION: Chronic small right lower lobe pleural effusion with pleural thickening and right lower lobe basilar atelectasis Electronically Signed: Tr Austin MD at 13:17 EDT Reading Location ID and State: [address] [place] [address] , Service support , Chest x-ray, portable, single view shows normal cardiac silhouette. Right lowerlobe small pleural effusion with atelectasis and scarring. Interpreted both by myself and the radiologist. Rhythm Strip Rhythm Strip: Sinus Rhythm Rate: 72 Ectopy: None EKG Initial EKG: Attestation: I personally reviewed and interpreted this EKG as follows: Interpretation: Sinus Rhythm and No Acute Injury Pattern Comments: Normal sinus rhythm rate of 72. No acute signs of [place] no ischemia. Discharge Plan Triage Chief Complaint: Shortness of Breath Other Complaint: Headache ED Provider: Fabricio Kwong Dx/Rx/DC Orders Clinical Impression: Acute exacerbation of chronic obstructive pulmonary disease, Tobacco abuse, Bipolar disorder, Shortness of breath Instructions: ED COPD Flare Prescriptions: New prednisone 20 mg tablet 40 mg PO DAILY 10 Days Qty: 20 0RF albuterol sulfate 2.5 mg /3 mL (0.083 %) solution for nebulization 2.5 mg inhalation Q4H PRN Qty: 25 0RF Rx Instructions: Use q4 hours and PRN for wheezing No Action gabapentin 800 mg tablet 800 mg PO QDAY Trelegy Ellipta 200-62.5-25 mcg blister with device 1 inh inhalation DAILY Qty: 60 11RF albuterol sulfate 90 mcg/actuation HFA aerosol inhaler 2 puff inhalation Q4H PRN (Reason: shortness of breath or wheezing) Qty: 8.5 11RF Rx Instructions: administer with spacer omeprazole 20 MG capsule,delayed release(DR/EC) 40 mg PO DAILY Patient Comments: TAKE 2 CAPSULES BY MOUTH EVERY DAY 1/2 HOUR BEFORE BREAKFAST sertraline 50 MG tablet 50 mg PO DAILY Patient Comments: Take three tablets at bedtime. amitriptyline 100 MG tablet 100 mg PO QHS Patient Comments: TAKE 1 TABLET BY MOUTH EVERY DAY [id number]-awl-[id number]-[id number]-vkubyti-xaelvw 1 EACH tablet 1 tab PO DAILY quetiapine 200 MG tablet 200 mg PO QHS levetiracetam 500 MG tablet 500 mg PO DAILY naproxen [Naprosyn] 500 mg tablet 500 mg PO BID PRN (Reason: pain) Qty: 20 0RF divalproex 500 MG tablet,delayed release (DR/EC) 750 mg PO BID doxycycline hyclate 100 mg tablet 100 mg PO BID Qty: 20 0RF prednisone 10 mg tablet 10 mg PO QDAY Qty: 30 0RF Rx Instructions: take 4 tabs for three days, then 3 tabs for three days, then 2 tabs for three days, then 1 tab for 3 days Primary Care Provider: Charan Arndt Referrals: Charan Arndt MD [Primary Care Provider] - Rock Dick DO [Med Staff - Active Staff] - As soon as possible Activity Restrictions/Additional Instructions: Prednisone 40 mg a day for the next 10 days start tomorrow we gave you a dose here. Use your inhaler and nebulizer at home as needed. Follow-up with your supervisor pressing department soon as possible. Return if feeling worse. Disposition Disposition: Home, Self Care What to do if you have Problems For any increased pain, shortness of breath, bleeding, nausea or vomiting, chestpain, or any unexpected problems, contact your Primary Care Provider. Call [facility] ([phone]) or report to the closest Emergency Room. Call 911 if necessary. 05/07/24 1451 <Electronically signed by Fabricio Kwong MD> Cosigner Signature (if applicable): CC: Dr. Charan Arndt MD ~ Signed [facility] Work Phone: [phone] 322-961505-06-2024 Telephone encounter Note* Telephone Encounter - Zain Weiss MA - 10/20/2023 12:15 PM EDT Left message to call office. 10/20/2023 12:15 PM [facility]05-06-2024 Telephone encounter Note* Telephone Encounter - Zain Weiss MA - 10/20/2023 12:02 PM EDT ----- Message from Alycia Arnold APRN.OIL PLANT OPERATOR sent at 10/20/2023 10:38 AM EDT ----- Please let the patient know chest x-ray findings consistent with COPD, otherwise normal. Follow-up with supervisor pressing department regarding SOB. Lab results were all within acceptable limits. Keep appointment with general surgery as scheduled Alycia Arnold APRN.OIL PLANT OPERATOR [facility]05-01-2024 History of Present illness Narrative* Rochelle Ortiz RT(R) - 10/15/2023 10:50 AM EDT Radiology Service Progress Note PATIENT NAME: Eliud Blount DATE OF SERVICE: October 15, 2023 TIME: 10:48 AM PATIENT IDENTITY VERIFICATION COMPLETED USING TWO (2) IDENTIFIERS: Name and Date of confirmedby patient verbally. FALL SCREENING: Has the patient had 2 falls in the last year or 1 fall with injury or currently using an Ambulatory Assistive Device (Walker, Cane, Wheelchair, Crutches, etc.)? No PATIENT GENDER DATA: Male PATIENT RELEVANT IMPLANT DATA REVIEWED: Yes PATIENT PRESENTS WITH AN IMPLANTABLE OR ATTACHED BUSINESS ANALYST SALES OPERATIONS: No RADIOLOGY DEPARTMENT: General X-ray: Exam(s) Completed: Chest X-Ray PERIPHERAL IV DATA: Not applicable SIGNED BY: RT Hilario(R) October 15, 2023 10:48 AM documented in this encounterUniversity Hospitals [facility]05-01-2024 Instructions* Patient Instructions* Alycia Arnold APRN.CNP - 10/15/2023 10:14 AM EDT Please call your neurologist and let them know about increase in frequency of seizures Go to ER or call 911 if you develop severe abdominal pain, vomiting that won't stop, high fever, rigid/hard abdomen, significant rectal bleeding. documented in this encounterUniversity Hospitals [facility]05-01-2024 History of Present illness Narrative* Alycia Arnold APRN.CNP - 10/15/2023 10:03 AM EDT CC Patient presents with: abdominal discomfort / [...] has a history of COPD, managed by supervisor pressing department at [facility]. Treated with Trelegy and albuterol. He had an exacerbation a couple weeks ago and was prescribed Doxycycline and prednisone. Cough and wheezing resolved however SOB remained the same after completing treatment. He has a history of seizures and migraines. Treated with Keppra, Depakote, Elavil and Gabapentin byneurologist in [place]. He had not had a seizure in years until a few months ago. Reportedly minorseizures but increasing in frequency. Last week he had at least three. He did not notify his neurologist of this and is overdue for a follow-up. Review of Systems Constitutional: Positive for activity change, appetite change, fatigue and unexpected weight change(weight loss of 10 lbs in 6 months, [...] Cervicalgia 07/29/2006 Chronic obstructive pulmonary disease (COPD) ([facility]) DEPRESSIVE DISORDER NEC 07/29/2006 Diabetes ([facility]) Headache(784.0) 07/29/2006 Hypertension Intracranial injury of [...] PAST SURGICAL HISTORY OF 1991 left ankle surgery-removal of bone chip PAST SURGICAL HISTORY OF bilateral repair of tennis elbow RPR 1ST INGUN HRNA AGE 7 YRS/> REDUCIBLE 1991 Bilateral Hernia repair, inguinal - laparoscopic - Dr. Alanis RPR 1ST INGUN HRNA AGE 7 YRS/> REDUCIBLE 01/28/2008 Left Open repair RPR UMBILICAL HRNA 7 YRS/> REDUCIBLE simple ALLERGIES Day-Nite Severe Cold-Flu [Ejiisss-Da-Tj-Acetaminophen-Gg], Dextromethorphan, Doxylamine, Pseudoephedrine, Sertraline, Zoloft [Sertraline Hcl], Baclofen, and Nyquil [Feujyhknq-Wks-Fp-Acetaminophen] MEDICATIONS PARoxetine (PAXIL) 20 mg tablet Take [...] daily before breakfast. 1/2 hr before meal. zeuajephhnc-apjxmnfvq-vabdbddd (TRELEGY ELLIPTA) 100-62.5-25 mcg Inhale 1 Puff as instructed once daily. aspirin, enteric coated (ASPIRIN, ENTERIC COATED) 81 mg EC tablet Take 81 mg by mouth once daily. gabapentin (NEURONTIN) 800 mg tablet 600 mg three times daily. from [facility] albuterol HFA (VENTOLIN HFA) 90 mcg/actuation inhaler Inhale 2 Puffs as instructed every 4 hours asneeded for Wheezing/Shortness of Breath. multivitamin tablet Take [...] mg by mouth two times a day.) Gctmgrg-Jjebenqtbhzgn-Fbcydbwa 250-250-65 mg per tablet Take 6 tablets [...] not ill-appearing or toxic-appearing. HENT: Mouth/Throat: Lips: [place]. Mouth: Mucous membranes are moist. Pharynx: Oropharynx [...] Patient agreeable to treatment plan. Alycia Arnold APRN.ASHOK documented in this encounterUniversity Hospitals Port[facility] Center04-30-2024 Telephone encounter Note * Telephone Encounter - Laura Burrows RN - 10/14/2023 3:21 PM EDT Triage Protocol Recommended: ER now. Patient declining despite risks of further decline. Pt requesting appointment for tomorrow morning. Appt made with Alycia Arnold CNP for 10:00am 10/15/23. Please contact patient if provider has other advise. Reason for Disposition [1] MODERATE rectal bleeding (small blood clots, passing blood without stool, or toilet water turnsred) AND [2] more than once a day [...] above 10. : n/a Protocols used: Rectal Xpxiqcon-VUZKB-PC [facility]04-30-2024 Miscellaneous Notes* Telephone Encounter - Laura Burrows RN - 10/14/2023 3:21 PM EDT Triage Protocol Recommended: ER now. Patient declining despite risks of further decline. Pt requesting appointment for tomorrow morning. Appt made with Alycia Arnold CNP for 10:00am 10/15/23. Please contact patient if provider has other advise. Reason for Disposition [1] MODERATE rectal bleeding (small blood clots, passing blood without stool, or toilet water turnsred) AND [2] more than once a day [...] above 10. : n/a Protocols used: Rectal Tlxzuffh-VYVAM-YN documented in this encounterUniversity Hospitals Portage [facility] Center04-30-2024 Telephone encounter Note * Telephone Encounter - Sunitha Vega RN - 10/14/2023 2:40 PM EDT Call transferred from for concerns of blood in stool and abdominal pain. of patient wantingto schedule appointment. attempted to conference patient through for triage. Line disconnected. Attempted to call patient back and left a voicemail to return call when able. [facility]04-30-2024 Miscellaneous Notes* Telephone Encounter - Sunitha Vega RN - 10/14/2023 2:40 PM EDT Call transferred from for concerns of blood in stool and abdominal pain. of patient wantingto schedule appointment. attempted to conference patient through for triage. Line disconnected. Attempted to call patient back and left a voicemail to return call when able. documented in this encounterUniversity Hospitals Portage Medical Center04-24-[address] [facility]10-23-2023 History of Present illness Narrative* Serene Jerome PA-C - 04/07/2023 8:36 AM EDT CC: Patient presents with: Follow Up: anxiety [...] her - for which he went to detention for. Has quite a bit of weight [...] Cervicalgia 07/29/2006 Chronic obstructive pulmonary disease (COPD) ([facility]) DEPRESSIVE DISORDER NEC 07/29/2006 Diabetes ([facility]) Headache(784.0) 07/29/2006 Hypertension Intracranial injury of [...] PAST SURGICAL HISTORY OF 1991 left ankle surgery-removal of bone chip PAST SURGICAL HISTORY OF bilateral repair of tennis elbow RPR 1ST INGUN HRNA AGE 7 YRS/> REDUCIBLE 1991 Bilateral Hernia repair, inguinal - laparoscopic - Dr. Alanis RPR 1ST INGUN HRNA AGE 7 YRS/> REDUCIBLE 01/28/2008 Left Open repair RPR UMBILICAL HRNA 5 YRS/> REDUCIBLE simple ALLERGIES Day-Nite Severe Cold-Flu [Zbludqk-Si-Kp-Acetaminophen-Gg], Dextromethorphan, Doxylamine, Pseudoephedrine, Sertraline, Zoloft [Sertraline Hcl], Baclofen, and Nyquil [Uhmgbocgk-Fyc-Zd-Acetaminophen] MEDICATIONS amoxicillin-clavulanic acid (AUGMENTIN) 875-125 mg per [...] daily before breakfast. 1/2 hr before meal. uvdbifslscw-lxggwevfc-irjknlgk (TRELEGY ELLIPTA) 100-62.5-25 mcg Inhale 1 Puff [...] tablet 600 mg three times daily. from [facility] albuterol HFA (VENTOLIN HFA) 90 mcg/actuation inhaler Inhale 2 Puffs as instructed every 4 hours asneeded for Wheezing/Shortness of Breath. Udcirzl-Pecjlgwtypxnz-Jtyfpbpk 250-250-65 mg per tablet Take 6 tablets [...] time only for 1 dose. 1 DOSE NOW- BACK OFFICE. PLACE 0.5 ML PER DROPPER [...] F) Resp 12 Ht 170.2 cm (5' 7) Wt 60.3 kg (133 lb) BMI 20.83 [...] symptoms occur. Patient agreeable to treatment plan. Serene Jerome PA-C documented in this encounterUniversity Hospitals Portage Medical Center10-19-2023 History of Present illness Narrative* Germania Goldberg APRN.OIL PLANT OPERATOR - 04/03/2023 12:46 PM EDT This note was created using Mobile Authentication. Subjective Eliud Blount is a 62 year [...] kg (126 lb 3.2 oz) SpO2 96% BMI19.77 kg/m PAST MEDICAL HISTORY Diagnosis Date Acute [...] PAST SURGICAL HISTORY OF 1991 left ankle surgery-removal of bone chip PAST SURGICAL HISTORY OF bilateral repair of tennis elbow RPR 1ST INGUN HRNA AGE 7 YRS/> REDUCIBLE 1991 Bilateral Hernia repair, inguinal - laparoscopic - Dr. Alanis RPR 1ST INGUN HRNA AGE 7 YRS/> REDUCIBLE 01/28/2008 Left Open repair RPR UMBILICAL HRNA 7 YRS/> REDUCIBLE simple ALLERGIES Day-Nite Severe Cold-Flu [Epzizxp-Ww-Iz-Acetaminophen-Gg], Dextromethorphan, Doxylamine, Pseudoephedrine, Sertraline, Zoloft [Sertraline Hcl], Baclofen, and Nyquil [Ripptsoar-Ovq-Cb-Acetaminophen] MEDICATIONS albuterol (PROVENTIL) 5 mg/mL nebu Inhale [...] daily before breakfast. 1/2 hr before meal. htcpafhycat-wydbuqyek-hlrgawtk (TRELEGY ELLIPTA) 100-62.5-25 mcg Inhale 1 Puff [...] tablet 600 mg three times daily. from [facility] albuterol HFA (VENTOLIN HFA) 90 mcg/actuation inhaler Inhale 2 Puffs as instructed every 4 hours asneeded for Wheezing/Shortness of Breath. albuterol (PROVENTIL) 5 mg/mL nebu Inhale 0.5 mL as instructed one time only for 1 dose. 1 DOSE NOW- BACK OFFICE. PLACE 0.5 ML PER DROPPER AND 2.5 ML OF NORMAL SALINE INTO RESERVOIR. Jubljaf-Rxzxcluxoypvs-Htirunfq 250-250-65 mg per tablet Take 6 tablets [...] CLAVULANATE 125 MG TABLET E Thien [employer] DRAWING HAND Student Supervising provider was present and guided the care of the patient for the entire session on this date. All documentation was reviewed and agreed upon. Germania Goldberg APRN.ASHOK documented in this encounterUniversity Hospitals Portage Medical Center09-20-2023 Instructions* Patient Instructions* Malathi Skinner APRN.CNP - 03/05/2023 11:17 AM [...] develop normally and show no signs of malnutrition.The frequent stools have no special significance. Bowel movements eventually become normal. But it may take 2 to 3 years. POSSIBLE COMPLICATIONS Possible psychological fixation on bowel function because of excessive parental attention to bowel habits. TREATMENT GENERAL MEASURES Don t blame or criticize your child for this problem. Don t expect toilet training to be successfulas soon as with other children. Treat your [...] are not normal. Copyright 1994 [employer] documented in this encounterUniversity Hospitals Portage Medical Center09-20-2023 History of Present illness Narrative* Malathi Skinner APRN.ASHOK - 03/05/2023 11:10 AM EDT This note was created using NoteWriter. Subjective Eliud Blount is a 62 year [...] history is provided by the patient. No english language learner teacher was used. Diarrhea This is a new problem. The current episode started more than 1 week ago. The problem occurs 5 to 10times per day. The problem has not changed since onset.The stool consistency is described as Watery. There has been no fever. Associated symptoms include abdominal pain. Pertinent negatives include no vomiting, no chills, no sweats, no headaches, no arthralgias, no myalgias, no URI and no cough. Hehas tried Kaeopectate (metamucil) for the symptoms. The [...] Cervicalgia 07/29/2006 Chronic obstructive pulmonary disease (COPD) ([facility]) DEPRESSIVE DISORDER NEC 07/29/2006 Diabetes ([facility]) Headache(784.0) 07/29/2006 Hypertension Intracranial injury of [...] PAST SURGICAL HISTORY OF 1991 left ankle surgery-removal of bone chip PAST SURGICAL HISTORY OF bilateral repair of tennis elbow RPR 1ST INGUN HRNA AGE 7 YRS/> REDUCIBLE 1991 Bilateral Hernia repair, inguinal - laparoscopic - Dr. Alanis RPR 1ST INGUN HRNA AGE 7 YRS/> REDUCIBLE 01/28/2008 Left Open repair RPR UMBILICAL HRNA 7 YRS/> REDUCIBLE simple ALLERGIES Day-Nite Severe Cold-Flu [Esncgkn-Lw-Ek-Acetaminophen-Gg], Dextromethorphan, Doxylamine, Pseudoephedrine, Sertraline, Zoloft [Sertraline Hcl], Baclofen, and Nyquil [Rzumhtcpe-Qcc-Vh-Acetaminophen] MEDICATIONS albuterol (PROVENTIL) 5 mg/mL nebu Inhale [...] daily before breakfast. 1/2 hr before meal. mehemuirlfm-maukmbpvn-ihsyhjde (TRELEGY ELLIPTA) 100-62.5-25 mcg Inhale 1 Puff [...] tablet 600 mg three times daily. from [facility] albuterol HFA (VENTOLIN HFA) 90 mcg/actuation inhaler Inhale 2 Puffs as instructed every 4 hours asneeded for Wheezing/Shortness of Breath. albuterol (PROVENTIL) 5 mg/mL nebu Inhale 0.5 mL as instructed one time only for 1 dose. 1 DOSE NOW- BACK OFFICE. PLACE 0.5 ML PER DROPPER AND 2.5 ML OF NORMAL SALINE INTO RESERVOIR. Frrrkko-Wzpxryfmzxfqh-Alwswisb 250-250-65 mg per tablet Take 6 tablets [...] for C diff, and Stool studies - [place] low residue diet - F/U appt made at time of discharge. - LIPASE BLD Malathi Skinner APRN.OIL PLANT OPERATOR documented in this encounterUniversity [facility]als [facility]12-07-2022 Miscellaneous Notes* Telephone Encounter - Charan Arndt MD - 05/22/2022 10:35 AM EST Noted * Telephone Encounter - Tamia Suh LPN - 05/21/2022 9:44 AM EST Susan with [facility] calling to let you know pt was in inpt at [facility] 05/17/22 to 05/19/22 with Pneumonia. No call back needed. Tamia Suh LPN documented in this encounterUniversity Hospitals Portage [facility] Center12-02-2022 History of Present illness Narrative* Elida Ibarra PA-C - 05/17/2022 1:47 PM EST This note was created using NoteWriter. Subjective Eliud Blount is a 61 year [...] Cervicalgia 07/29/2006 Chronic obstructive pulmonary disease (COPD) ([facility]) DEPRESSIVE DISORDER NEC 07/29/2006 Diabetes ([facility]) Headache(784.0) 07/29/2006 Hypertension Intracranial injury of [...] needed for wheezing/shortness of breath. Use over 5- 15minutes. 36 mL 3 wilbyoevnad-wdgvortic-paesvgaf (TRELEGY ELLIPTA) 100-62.5-25 mcg Inhale 1 Puff [...] tablet 600 mg three times daily. from [facility] albuterol HFA (VENTOLIN HFA) 90 mcg/actuation inhaler Inhale 2 Puffs as instructed every 4 hours asneeded for Wheezing/Shortness of Breath. 1 Inhaler 12 albuterol (PROVENTIL) 5 mg/mL nebu Inhale 0.5 mL as instructed one time only for 1 dose. 1 DOSE NOW- BACK OFFICE. PLACE 0.5 ML PER DROPPER AND 2.5 ML OF NORMAL SALINE INTO RESERVOIR. 1 mL 0 Kagmdhv-Jborwivnrmazv-Bemchwsp 250-250-65 mg per tablet Take 6 tablets [...] application to affected area three times daily. (Patientnot taking: Reported on 04/15/2022) 1 Tube 1 sildenafil (VIAGRA) 50 mg tablet Take 1 tablet by mouth as needed. (Patient not taking: Reported on03/01/2021 ) 15 tablet 2 aspirin, enteric coated [...] PAST SURGICAL HISTORY OF 1991 left ankle surgery-removal of bone chip PAST SURGICAL HISTORY OF [...] be seen in the ER. Otherwise follow-up withPCP in the next 1 to 2 weeks. Patient agreeable with plan. - ACETAMINOPHEN 500 MG TABLET - XR CHEST 2V FRONTAL/LAT Elida Ibarra PA-C documented in this encounterUniversity Hospitals Portage Medical Center12-02-2022 History of Present illness Narrative* Rochelle Ortiz RT(R) - 05/17/2022 11:50 AM EST Radiology Service Progress Note PATIENT NAME: Eliud Blount DATE OF SERVICE: May 17, 2022 TIME: 11:50 AM PATIENT IDENTITY VERIFICATION COMPLETED USING TWO (2) IDENTIFIERS: Name and Date of confirmedby patient verbally. FALL SCREENING: Has the patient [...] 17, 2022 11:50 AM documented in this encounterUniversity Hospitals Portage [facility] Center11-01-2022 Miscellaneous Notes* Telephone Encounter - Radha Toledo - 04/16/2022 11:45 AM EDT Patient given results and verbalized understanding of instructions given. Radha Toledo * Telephone Encounter - Radha Toledo - 04/16/2022 11:33 AM EDT number not in service. Radha Toledo * Telephone Encounter - Radha Toledo - 04/15/2022 6:54 PM EDT Unable to reach patient. Mailbox full/Mailbox not set up/ Number incorrect. Please try again later. Radha Toledo * Telephone Encounter - Xochilt Cabrales APRN.CNP - 04/15/2022 6:48 PM EDT 2.5 mg/3 ml sent to pharmacy for albuterol nebulizer Please tell patient to check with pharmacy for new rx. Xochilt Cabrales APRN.CNP * Telephone Encounter - Ursula Sadler - 04/15/2022 4:05 PM EDT [facility] [place] [facility] the rx for albuterol (PROVENTIL) 5 mg/mL is backordered. Wants to know if pre diluted product can be substituted. Please send new rx if possible. [phone] documented in this encounterUniversity Hospitals Portage [facility] Center10-31-2022 Instructions* Patient Instructions* Xochilt Cabrales APRN.CNP - 04/15/2022 11:20 AM [...] breath, inability to swallow. documented in this encounterUniversity Hospitals Portage [facility] Center10-31-2022 History of Present illness Narrative* Xochilt Cabrales APRN.CNP - 04/15/2022 11:15 AM EDT Subjective The history is provided by the patient. No english language learner teacher was used. HPI Eliud Blount is a 61 year old male who presents today for CC of cough, congestion, increased wheezing. He started a week ago with URI symptoms, but wheezing and cough have increased. He has usedhis prescribed inhalers and mucinex without relief. He [...] Cervicalgia 07/29/2006 Chronic obstructive pulmonary disease (COPD) ([facility]) DEPRESSIVE DISORDER NEC 07/29/2006 Diabetes ([facility]) Headache(784.0) 07/29/2006 Hypertension Intracranial injury of [...] have confirmed and edited as necessary, the [facility] Review of Systems Constitutional: Negative for [...] for higher level of care were discussed indetail warranting prompt ER evaluation. Xochilt Cabrales APRN.CNP documented in this encounterUniversity Hospitals Portage [facility] Center10-06-2011 History of Past illness Narrative* Problem Noted [...] of this encounter (statuses as of 03/01/2022) [facility]10-[facility] History of Past illness Narrative* Problem Noted [...] of this encounter (statuses as of 04/15/2022) [facility]10[facility]2011 History of Past illness Narrative* Problem Noted [...] of this encounter (statuses as of 04/16/2022) [facility]10[facility] History of Past illness Narrative* Problem Noted [...] of this encounter (statuses as of 05/17/2022) [facility]10[facility] History of Past illness Narrative* Problem Noted [...] of this encounter (statuses as of 05/22/2022) [facility] History of Past illness Narrative* Problem Noted [...] of this encounter (statuses as of 03/05/2023) [facility]10[facility] History of Past illness Narrative* Problem Noted [...] of this encounter (statuses as of 04/03/2023) [facility]10-[facility]2011 History of Past illness Narrative* Problem Noted [...] of this encounter (statuses as of 04/09/2023) [facility] CenterDischarge summary Author Mack Burrows [facility] April 28, 2023 11:55am Note Date/Time April 28, 2023 11:02am [facility] Medical Records Department [address] [place] [address] Emergency Department Summary 04/28/23 MR#: [id number] Acct: [id number] Name: ELIUD BLOUNT Rep #:[id number] : 1960 62 From: Mack Burrows MD PCP: Dr. Charan Arndt MD Status:REG E R Location: ED ADDENDUM by Dr. Mack Burrows MD on 04/28/23 at 1155 Clinical Impression(s) from Imaging Studies Finger X-Ray 04/28/23 11:05 IMPRESSION: Questionable tiny avulsion at the base of the first metacarpal. Electronically Signed: Bijan Oliveira MD at 11:28 EST , I reviewed the above interpretation. The laceration/injury is not in the area of this so I suspect this is probably chronic and not acute, he is not in need of a splint and is not having any pain. 04/28/23 1155<Electronically signed by Mack Burrows MD> Cosigner Signature (if applicable): cc: Dr. Charan Arndt MD ~* Signed HPI History of Present Illness Chief Complaint: Laceration Informant: patient Onset/Context/Timing Onset: Hours (3) Context: Sudden Onset Timing: Continuous Quality of Pain: - (sore) Location: R thumb Current Severity: Mild Maximum Severity: Moderate Worsened by: palpation Relieved by: leaving alone Associated Symptoms Associated Symptoms: Negative for Parasthesia, Weakness or Loss of Funtion Narrative Narrative: Patient states he was getting a window scraper out and the razor on it accidentally cut him in the right thumb. He states I could feel it, it went down to the bone. He denies any loss of function. No major bleeding. Tetanus Immunization: >10 years [facility] Medical History (Updated 04/28/23 @ 11:[address] Mack Burrows MD) Acute respiratory failure Bilateral tennis elbow Bipolar disorder COPD (chronic obstructive pulmonary disease) Depression Encephalopathy GERD (gastroesophageal reflux disease) Hoarseness Left ankle injury Lung nodule Migraine LACEY (obstructive sleep apnea) Pneumonia Pneumonia Pneumonia Sepsis Sleep-related breathing disorder Spinal stenosis Tobacco abuse Traumatic brain injury Home Medications amitriptyline 100 mg tablet 100 mg PO QHS sleep 06/30/19 [History Last Taken 08/21/19] gabapentin 600 mg tablet 600 mg PO TID nerve pain 06/30/19 [History Last Taken 08/22/19 13:00] wyqdibto-tc-dylka 300 mcg-K 60 mcg-lycop 600 mcg-lutein 300 mcg tablet 1 tab PO DAILY supplement 06/30/19 [History Last Taken 08/21/19] omeprazole 20 mg capsule,delayed release 40 mg PO DAILY gerd 06/30/19 [History Last Taken 08/22/19] sertraline 50 mg tablet 50 mg PO DAILY anxiety 06/30/19 [History Last Taken 08/21/19] levetiracetam 500 mg tablet 500 mg PO DAILY Check with primary doctor 04/28/20 [History Last Taken Unknown] quetiapine 200 mg tablet 200 mg PO QHS Check with primary doctor 04/28/20 [History Last Taken Unknown] albuterol sulfate 90 mcg/actuation aerosol inhaler 2 puff inhalation Q4H PRN PRNsob/wheezing ##1 07/09/21 [Rx Last Taken Unknown] naproxen 500 mg tablet (Naprosyn) 500 mg PO BID PRN pain #20 tabs 03/10/22 [Rx Last Taken Unknown] divalproex 500 mg tablet,delayed release 750 mg PO BID Check with primary opqzov82/03/22 [History Last Taken Unknown] fluticasone fur. 200 mcg-umeclid 62.5 mcg-vilant 25 mcg inhalat.powder (Trelegy Ellipta) 1 inh inhalation DAILY Check with primary doctor 05/18/22 [History Last Taken Unknown] levofloxacin 500 mg tablet 500 mg PO DAILY #7 tabs 05/19/22 [Rx Last Taken Unknown] albuterol sulfate 90 mcg/actuation aerosol inhaler 2 puff inhalation Q4H PRN shortness of breath or wheezing #8.5 grams 09/10/22 [Rx Last Taken Unknown] fluticasone fur. 200 mcg-umeclid 62.5 mcg-vilant 25 mcg inhalat.powder (Trelegy Ellipta) 1 inh inhalation DAILY #60 ea 09/10/22 [Rx Last Taken Unknown] Allergy/AdvReac Type Severity Reaction Status Date / Time dextromethorphan HBr AdvReac Intermediate tachycardia, Verified 04/28/23 10:22 [From NyQuil] feels anxious doxylamine [From NyQuil] AdvReac Intermediate Tachycardia, Verified 04/28/23 10:22 feels anxious pseudoephedrine HCl AdvReac Intermediate Tachycardia, Verified 04/28/23 10:22 [From NyQuil] feels anxious sertraline HCl [From Zoloft] AdvReac Diarrhea Verified 04/28/23 10:22 Family History Father Dementia Alzheimers disease Diabetes Mother Diabetes Surgical History History of hernia repair Social History Smoking Status: Current every day smoker tobacco type: cigarettes Tobacco: How many years used: 30 second hand exposure: Yes alcohol intake: never substance use type: does not use ROS ROS ED Constitutional Constitutional ED: Denies chills or fever(s) Musculoskeletal Musculoskeletal: Reports extremity pain; Denies neck pain Integumentary Reports laceration and wounds; Denies Abrasions or rash Neurologic Neurologic: Denies paresthesias or weakness EXAM Physical Exam Const Vital Signs: 04/28/23 10:22 Temperature 97.6 F L Temperature Source Temporal Pulse Rate 98 Respiratory Rate 18 Blood Pressure 114/80 Blood Pressure Mean 91 Pulse Ox 98 Oxygen Delivery Method Room Air Positive well nourished and well developed General Appearance ED: well developed and NAD Neck full ROM and supple Back/Spine normal ROM and normal to inspection Extremity full ROM Extremity Narrative: Laceration to the dorsum of the right thumb, it is over the IPJ, it is more to the radial aspect and not over the center of it. Extensor mechanism is all intact, full range of motion to the IPJ and MCPJ, able to oppose without difficulty. Neuro oriented x3, no focal motor deficits and no sensory deficits noted Sensorium / Orientation: alert Psych mental status grossly normal and thought process normal Skin Skin Narrative: 2.5 cm laceration full-thickness without active bleeding over the dorsum of the right thumb. Linear, clean appearing. Rashes: no rashes MDM MDM MDM Narrative Medical decision making narrative: Three-view x-ray series of the right thumb on my interpretation show no bony involvement or residual foreign body. Laceration was anesthetized, thoroughly cleansed and sutured, while performing the procedure I inspected the area, I cansee part of the extensor tendon complex, it is possible that he has pressure injury to it but not the central slip, and the skin is barely able to be in order to visualize this that I do not think it is worth attempting to repair or visualize further. I attempted to visualize the area while placingthe patient IPJ through flexion and extension, but I do not see any definitive evidence of a tendon injury. Therefore I am allowing him to use his finger as able, as he is not having any difficulty in doing so, we discussed when to return or follow-up for suture removal. His tetanus was updated. Procedures Lacerations Right thumb: Length: 2.5 cm Depth: Sub Q Shape: Linear Prep: Sterile Conditions and Chlorhexadine Laceration repair: Lidocaine (1%, 2 cc), Local and Skin sutures Irrigated (ml): 60 Number of Sutures/Ayer: 5 Suture Information: Ethilon, Simple and 5-0 Discharge Plan Triage Chief Complaint: Laceration ED Provider: Mack Burrows Dx/Rx/DC Orders Clinical Impression: Seushqhdqv-wcpfsmpyc-eebepoz (DPT) vaccination administered at current visit, Laceration of right thumb Instructions: ED Laceration, Hand: All Closures Prescriptions: No Action Trelegy Ellipta 200-62.5-25 mcg blister with device 1 inh inhalation DAILY Qty: 60 11RF albuterol sulfate 90 mcg/actuation HFA aerosol inhaler 2 puff inhalation Q4H PRN (Reason: shortness of breath or wheezing) Qty: 8.5 11RF Rx Instructions: administer with spacer gabapentin 600 MG tablet 600 mg PO TID Patient Comments: Take one tablet three times a day. omeprazole 20 MG capsule,delayed release(DR/EC) 40 mg PO DAILY Patient Comments: TAKE 2 CAPSULES BY MOUTH EVERY DAY 1/2 HOUR BEFORE BREAKFAST sertraline 50 MG tablet 50 mg PO DAILY Patient Comments: Take three tablets at bedtime. amitriptyline 100 MG tablet 100 mg PO QHS Patient Comments: TAKE 1 TABLET BY MOUTH EVERY DAY zt-ukp-nptmk-C6-fzkpclx-utbvar 1 EACH tablet 1 tab PO DAILY quetiapine 200 MG tablet 200 mg PO QHS levetiracetam 500 MG tablet 500 mg PO DAILY naproxen [Naprosyn] 500 mg tablet 500 mg PO BID PRN (Reason: pain) Qty: 20 0RF divalproex 500 MG tablet,delayed release (DR/EC) 750 mg PO BID Trelegy Ellipta 200-62.5-25 mcg blister with device 1 inh inhalation DAILY levofloxacin 500 mg tablet 500 mg PO DAILY Qty: 7 0RF Rx Instructions: take one daily starting 05/19/22 albuterol sulfate 90 mcg/actuation HFA aerosol inhaler 2 puff INHALATION Q4H PRN PRN (Reason: sob/wheezing) Qty: 1 11RF Primary Care Provider: Charan Arndt Referrals: Charan Arndt MD [Primary Care Provider] - 10-14 Days suture removal Disposition Disposition: Home, Self Care What to do if you have Problems For any increased pain, shortness of breath, bleeding, nausea or vomiting, chestpain, or any unexpected problems, contact your Primary Care Provider. Call [facility] ([phone]) or report to the closest Emergency Room. Call 911 if necessary. 04/28/23 1145 <Electronically signed by Mack Burrows MD> Cosigner Signature (if applicable): CC: Dr. Charan Arndt MD ~ Signed [facility] Work Phone: Discharge summary Author Hyun Duncan [facility] Note Date/Time August 28, 2024 12: 35pm [facility] Medical Records Department [address] [place] [address] Instructions for Home/Discharge Instructions 08/28/24 1142 MR#: [id number] Acct: [id number] Name: ELIUD BLOUNT Rep #:[id number] : 1960 63 From: Hyun Duncan MD PCP: Dr. Charan Arndt MD Status:ADM I N Discharge Instructions Diet Discharge Diet: Low fat / Low cholesterol DC O2, CPAP, BIPAP needs Home O2 Discharge instructions: No Dressing / Incision Discharge Activity: Return to Normal Activity Weight Bearing Status: Weight bearing as tolerated Dressing / Incision Call your doctor if you observe: Fever of 101 or Higher, Shortness of breath, Dizziness, Swelling in the ankles and Chest pain Follow Up Care Test Results: Test results from this visit will be discussed in further detail at your follow- up appointment, if applicable. Discharge Plan Admission Admit Date/Time: 08/27/24 17:01 Primary Reason for Your Visit: acute encephalopathy Attending Provider: Hyun Duncan Primary Care Provider: Charan Arndt Consulting Providers: Jone Dudley; Jeffry Bo; Magdi Serrano; Rock Dick; Calvin Jasso; Sebastian Charles; Jamal Mina; Claudine Davis; Morris Disla; Fabien Boles; Jarek Rosas; Sirisha Lorenzo; Rosaura Mosley; Barbara,Debbie; Elsi,Krishan; Jermaine Valenzuela; Joe Crouch; Miguel Angel,; Erica Palacios; Kee Lagos; Mauricio Culp; Humberto Ashley; Roel Bermudez; Al Conner; Nael Grullon; Charissa Vickers; Maria M Triana; Swathi Pete; Crow Barrera; Pauline Lyons; Saqib Holcomb; Eliud Tripp; Nehemias Martines; Sofia Smith; Jerome Pollack; Laxmi Oh; Flaco Hidalgo; Otto Gorman; Saturnino Calixto; Chiara Mccracken; Chandler Drake; Robyn Fontana; Kandi Ray Instructions Patient Instructions: ED Confusion Discharge Orders/Prescriptions Prescriptions: Continued fluticasone propionate 50 mcg/actuation spray,suspension 2 spray intranasal DAILY Qty: 16 3RF (DME) Disability Jarvis See Rx Instructions .ROUTE .MEDSUPPLY Qty: 1 0RF Rx Instructions: expires 06/14/2029 ipratropium bromide 42 mcg (0.06 %) spray,non-aerosol 2 spray intranasal TID Qty: 15 0RF Rx Instructions: administer into each nostril albuterol sulfate 90 mcg/actuation HFA aerosol inhaler 2 puff inhalation Q4H PRN (Reason: shortness of breath or wheezing) Qty: 8.5 11RF Rx Instructions: administer with spacer amitriptyline 100 mg tablet 100 mg PO QHS PRN (Reason: sleep) Patient Comments: TAKE 1 TABLET BY MOUTH EVERY DAY levetiracetam 500 MG tablet 500 mg PO DAILY divalproex 250 mg tablet,delayed release (DR/EC) 750 mg PO BID ibuprofen [Addaprin] 200 mg tablet 400 mg PO Q8H PRN (Reason: pain) gabapentin 800 mg tablet 800 mg PO TID guaifenesin 1,200 mg tablet extended release 12hr 1,200 mg PO Q12H PRN (Reason: cough) albuterol sulfate 2.5 mg /3 mL (0.083 %) solution for nebulization 2.5 mg inhalation Q4H PRN Qty: 120 4RF Rx Instructions: Use q4 hours and PRN for wheezing Trelegy Ellipta 200-62.5-25 mcg blister with device 1 inh inhalation DAILY Qty: 60 11RF Referrals / Follow Up: Charan Arndt MD [Primary Care Provider] - Within 1 Week Disposition Disposition (needs filled in before D/C Order can be placed): Home, Self Care 08/28/24 1142<Electronically signed by Hyun Duncan MD>Hyun Duncan MD CC: Maria M Triana; Laxmi Oh; Saturnino Calixto; Swathi Pete MD; Charissa Vickers MD; Al Conner MD; Dr. Jeffry Bo MD; Dr. Nael Grullon MD; Dr. Jone Dudley MD; Dr. Magdi Serrano MD; Dr. Charan Arndt MD; Dr. Calvin Jasso MD; Dr. Crow Barrera MD; Dr. Rock Dick DO; Dr. Sebastian Charles MD; Dr. Jamal Mina MD; Dr. Morris Disla MD; Dr. Pauline Lyons MD; Dr. Eliud Tripp MD; Dr. Saqib Holcomb MD; Dr. Nehemias Martines MD; Dr. Fabien Boles MD; Dr. Jarek Rosas MD; Dr. Sirisha Lorenzo MD; Dr. Rosaura Molsey MD; Dr. Debbie Jimenez MD; Dr. Jerome Pollack DO; Dr. Otto Gorman MD; Dr. Flaco Hidalgo MD; Dr.Pavan Bianca MD; Dr. Krishan Calzada MD; Dr. Chiara Mccracken MD; Dr. Joe Crouch MD; Dr. Kee Lagos MD; Dr. Erica Palacios MD; Dr. Sukhdeep Michelle DO; Dr. Chandler Drake MD; Dr. Mauricio Culp DO; Dr. Humberto Ashley MD; Dr. Robyn Fontana MD; Dr. Roel Bermudez MD; Dr. Claudine Davis MD; Sofia Smith DO; Kandi Ray MD ~ Signed [facility] Work Phone: Evaluation note* Diagnosis Onset Date Resolution Status COPD (chronic obstructive pulmonary disease) chronic Nicotine dependence, cigarettes, uncomplicated chronic [facility] Work Phone: Evaluation noteNo assessment information available [facility] Work Phone: Evaluation note* Diagnosis COPD with exacerbation (HCC)- Primary Obstructive chronic bronchitis with exacerbation Sinobronchitis Unspecified sinusitis (chronic) [facility] Diagnosis Lingular pneumonia- Primary Pneumonia, organism unspecified documented in this encounter [facility] note* Diagnosis Onset Date Resolution Status Pneumonia acute [facility] Work Phone: Evaluation note* Diagnosis Diarrhea, unspecified type- Primary Lower abdominal pain Abdominal pain, other specified site documented in this encounter [facility] note* Diagnosis Rhinosinusitis- Primary Unspecified sinusitis (chronic) documented in this encounter [facility] note* Diagnosis Anxiety associated with depression- Primary Dysthymic disorder Psychosocial stressors Other psychological or physical stress, not elsewhere classified documented in this encounter [facility] note* Diagnosis Seizure (CMS/HCC)- Primary Other convulsions Migraine without aura and without status migrainosus, not intractable ([facility]) [facility] Diagnosis Onset Date Resolution Status Bipolar disorder chronic COPD (chronic obstructive pulmonary disease) chronic Nicotine dependence, cigarettes, uncomplicated chronic [facility] Work Phone: Evaluation note* Diagnosis Blood in stool- Primary Shortness of breath Rectal bleeding Hemorrhage of rectum and anus Malaise Other malaise and fatigue Unintentional weight loss Loss of weight Chronic obstructive pulmonary disease, unspecified COPD type (HCC) Seizure disorder (HCC) Unspecified epilepsy without mention of intractable epilepsy Shortness of breath documented in this encounter [facility] note* Diagnosis Chronic obstructive pulmonary disease, unspecified [...] Primary Other conjunctivitis [facility]* Diagnosis Chronic obstructive pulmonary disease, unspecified [...] bronchitis with exacerbation [facility] Diagnosis Chronic obstructive pulmonary disease, unspecified [...] Shortness of breath [facility] Diagnosis Chronic obstructive pulmonary disease, unspecified [...] of other medications [facility]* Diagnosis Chronic obstructive pulmonary disease, unspecified [...] unspecified fever cause [facility] Diagnosis Chronic obstructive pulmonary disease, unspecified [...] referable to limbs [facility] Diagnosis Seizure (CMS/HCC) Other convulsions Migraine without aura and without status migrainosus, not intractable (CMS/HCC) Migraine without aura, not intractable, without status migrainosus (CMS/HCC) [facility] Diagnosis Chronic obstructive pulmonary disease, unspecified [...] unspecified Tobacco use disorder Neck pain Cervicalgia COPD with exacerbation (HCC)- Primary Obstructive chronic bronchitis with exacerbation Bacterial sinusitis Unspecified sinusitis (chronic) [facility] Diagnosis Chronic obstructive pulmonary disease, unspecified [...] unspecified Tobacco use disorder Neck pain Cervicalgia Subacute cough- Primary Cough COPD with exacerbation (HCC) Obstructive chronic bronchitis with exacerbation Subacute cough Cough [facility] Diagnosis Chronic obstructive pulmonary disease, unspecified [...] unspecified Tobacco use disorder Neck pain Cervicalgia Subacute cough Cough documented [facility] this encounter [facility] Diagnosis Chronic obstructive pulmonary disease, unspecified [...] unspecified Tobacco use disorder Neck pain Cervicalgia Burning with urination- Primary Dysuria Urinary hesitancy documented [facility] this encounter [facility] Narrative* Radha Lockwood, DOOR TO DOOR SALES REPRESENTATIVE - 07/31/2023 10:30 AM EST CHIEF COMPLAINT: [...] Migraines (CMS/HCC) LACEY (obstructive sleep apnea) Seizures (CMS/HCC) Past Surgical History: Procedure Laterality Date ANKLE [...] plan, and return instructions. [facility] Additional Instructions Prednisone 40 mg a day for the next 10 days start tomorrow we gave you a dose here. Use your inhaler and nebulizer at home as needed. Follow-up with your supervisor pressing department soon as possible. Return if feeling worse.[facility] Work Phone: Reason for referral (narrative)No reason for referral information availableWSouthwest General [facility] Center Work Phone: Chief Complaint and Reason for Visit Chief Complaint Chronic obstructive pulmonary disease with (acute) Chronic obstructive pulmonary disease with (acute) Chronic obstructive pulmonary disease with (acute) Chronic obstructive pulmonary disease with (acute) SOB 6 M FU TOBACCO DEP Reason for Visit COPD (chronic obstru ctive pulmonary disease) Nicotine dependence, cigarettes, uncomplicated Chief Complaint RIGHT WRIST INJURY Chief Complaint RIGHT WRIST INJURY PNEUMONIA Chief Complaint RIGHT WRIST INJURY PNEUMONIA Pneumonia Pneumonia Reason for Visit Pneumonia Chief Complaint pap machine issue NICOTINE DEPENDENCE Reason for Visit COPD (chronic obstru ctive pulmonary disease) Nicotine dependence, cigarettes, uncomplicated Chief Complaint NICOTINE DEPENDENCE LUNG NODULE Chief Complaint LUNG NODULE laceration to thumb Chief Complaint 1 Y FU COPD Reason for Visit Bipolar disorder COPD (chronic obstructive pulmonary disease) Nicotine dependence, cigarettes, uncomplicated Chief Complaint 1 Y FU COPD COPD COPD Reason for Visit Bipolar disorder COPD (chronic obstructive pulmonary disease) Nicotine dependence, cigarettes, uncomplicated Chief Complaint 1 Y FU COPD COPD COPD SHORTNESS OF BREATH Reason for Visit Bipolar disorder COPD (chronic obstructive pulmonary disease) Nicotine dependence, cigarettes, uncomplicated Chief Complaint Admit Date CERVICAL SPINE May 27, 2024 1:26pm 3 M FU June 14, 2024 2:43pm J44.9 - Chronic obstructive pulmonary di sease, uns June 23, 2024 9:41am SMOKING July 02, 2024 8 :06am SMOKING July 05, 2024 1 0:28am CERVICAL MYELOPATHY W/RADICULOPATHY Robert shultz 2024 10:38am CERVICAL SPINE July 12, 2024 1 :32pm 6 W FU July 27, 2024 12:52pm ACUTE ENCEPHALOPATHY POSSIBLE OPOID OVER DOSE August 27, 2024 5:01pm Reason for Visit Admit Date Cervical myelopathy with cervical radicu lopathy May 27, 2024 1:26pm Chronic respiratory failure May 2:43pm Nicotine dependence, cigarettes, uncompl icated June 14, 2024 2:43pm LACEY (obstructive sleep apnea) May 182023 2:43pm Stage 4 very severe COPD by GOLD classif ication June 14, 2024 2:43pm Cervical radiculopathy July 12 1:32pm Chronic respiratory failure July 12:52pm Nicotine dependence, cigarettes, uncompl icated July 27, 2024 12:52pm LACEY (obstructive sleep apnea) July 172024 12:52pm Stage 4 very severe COPD by GOLD classif ication July 27, 2024 12:52pm Closed head injury August 27, 2024 5:0 1pm Mental status, decreased August 27 5:01pm Unresponsive August 27, 2024 5:0 1pm COPD (chronic obstructive pulmonary dise ase) August 27, 2024 5:01pm Chief Complaint Admit Date ACUTE ENCEPHALOPATHY POSSIBLE OPOID OVER DOSE August 27, 2024 5:01pm ACUTE ENCEPHALOPATHY POSSIBLE OPOID OVER DOSE August 28, 2024 11:42am INT LAB ORDERS November 25, 2024 12:5 2pm 2 M FU November 26, 2024 2:46 pm Reason for Visit Admit Date Mental status, decreased August 27 5:01pm Unresponsive August 27, 2024 5:0 1pm Closed head injury August 27, 2024 5:0 1pm COPD (chronic obstructive pulmonary dise ase) August 27, 2024 5:01pm Chronic respiratory failure November 26, 2 025 2:46pm Nicotine dependence, cigarettes, uncompl icated November 26, 2024 2:46pm LACEY (obstructive sleep apnea) November 26, 2024 2:46pm Stage 4 very severe COPD by GOLD classif ication November 26, 2024 2:46pm Chief Complaint Admit Date INT LAB ORDERS November 25, 2024 12:5 2pm 2 M FU November 26, 2024 2:46 pm Asthma- Severe Persistent Asthma January 21, 2025 8:46am Reason for Visit Admit Date Chronic respiratory failure November 26, 2 025 2:46pm Nicotine dependence, cigarettes, uncompl icated Alix 13th, 2025 2:46pm LACEY (obstructive sleep apnea) November 26, 2024 2:46pm Stage 4 very severe COPD by GOLD classif ication November 26, 2024 2:46pm Family History Relationship Condition Age at Onset Recorded Date/T dante father Dementia Unknown Alzheimer's disease Unknown Diabetes mellitus Unknown mother Diabetes mellitus Unknown Advance Directives Advance Directive Response Recorded Date/ Time Advance Directives No July 11, 2017 6:47pm Living Will No August 21, 2021 12:05pm Power of Mill Roll Rewinder No August 21 12:05pm Advance Directive Response Recorded Date/ Time Advance Directives No July 11, 2017 6:47pm Living Will No March 09, 2022 11:35pm Power of Mill Roll Rewinder No February 11:35pm Advance Directive Response Recorded Date/ Time Advance Directives No July 11, 2017 5:47pm Living Will No May 17 7:40pm Power of Mill Roll Rewinder No May 17, 2022 7:40pm Advance Directive Response Recorded Date/ Time Advance Directives No July 11, 2017 5:47pm Living Will No May 18 3:16am Power of Mill Roll Rewinder No May 18, 2022 3:16am Advance Directive Response Recorded Date/ Time Advance Directives No July 11, 2017 6:47pm Living Will No May 18 4:16am Power of Mill Roll Rewinder No May 18, 2022 4:16am Advance Directive Response Recorded Date/ Time Advance Directives No July 11, 2017 5:47pm Living Will No April 28, 2 023 10:54am Power of Mill Roll Rewinder No April 28, 2023 10:54am Advance Directive Response Recorded Date/ Time Advance Directives No July 11, 2017 6:47pm Living Will No April 28, 2 023 11:54am Power of Mill Roll Rewinder No April 28, 2023 11:54am Advance Directive Response Recorded Date/ Time Advance Directives No July 11, 2017 6:47pm Living Will No October 21, 2023 10 :24am Power of Mill Roll Rewinder No October 21, 2023 10:24am Advance Directive Response Recorded Date/ Time Living Will No August 27, 2024 7:57pm Power of Mill Roll Rewinder No August 27 7:57pm Advance Directives No July 11, 2017 6:47pm Advance Directive Response Recorded Date/ Time Living Will No August 27, 2024 7:57pm Do you have a Healthcare Power of Mill Roll Rewinder? 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 [address] [place] [address] Referral ID Status Reason Start Date Expiration Date Visits Requested Visits Authorized [id number] Authorized PCP Requested Referral 10/15/2023 10/14/2024 1 1 Additional Source Comments Goals (unrecognized section and content) Goals may be documented in a n alternate sectionGoals may be documented in an alternate sectionGoals may be documented in an alternate sectionGoals may be documented in an alternate sectionGoals may be documented in an alternate sectionGoals may be documented in an alternate sectionGoals may be documented in an alternate sectionGoals may be documented in an alternate sectionGoals may be documented in an alternate sectionGoals may be documented in an alternate section Source Comments (unrecognize d section and content) In the event this informatio n is protected by the Federal Confidentiality of Alcohol and Drug Abuse Patient Records regulations: The Federal rules restrict any use of the information to criminally investigate or prosecute any alcohol or drug abuse patient.[facility] the event this information is protected by the Federal Confidentiality of Alcohol and Drug Abuse Patient Records regulations: The Federal rules restrict any use of the information to criminally investigate or prosecute any alcohol or drug abuse patient.[facility] CenterIn the event this information is protected by the Federal Confidentiality of Alcohol and Drug Abuse Patient Records regulations: The Federal rules restrict any use of the information to criminally investigate or prosecute any alcohol or drug abuse patient.[facility] CenterIn the event this information is protected by the Federal Confidentiality of Alcohol and Drug Abuse Patient Records regulations: The Federal rules restrict any use of the information to criminally investigate or prosecute any alcohol or drug abuse patient.[facility] the event this information is protected by the Federal Confidentiality of Alcohol and Drug Abuse Patient Records regulations: The Federal rules restrict any use of the information to criminally investigate or prosecute any alcohol or drug abuse patient.[facility] Center[facility] the event this information is protected by the Federal Confidentiality of Alcohol and Drug Abuse Patient Records regulations: The Federal rules restrict any use of the information to criminally investigate or prosecute any alcohol or drug abuse patient.[facility] Center[facility] the event this information is protected by the Federal Confidentiality of Alcohol and Drug Abuse Patient Records regulations: The Federal rules restrict any use of the information to criminally investigate or prosecute any alcohol or drug abuse patient.[facility] CenterIn the event this information is protected by the Federal Confidentiality of Alcohol and Drug Abuse Patient Records regulations: The Federal rules restrict any use of the information to criminally investigate or prosecute any alcohol or drug abuse patient.[facility] CenterIn the event this information is protected by the Federal Confidentiality of Alcohol and Drug Abuse Patient Records regulations: The Federal rules restrict any use of the information to criminally investigate or prosecute any alcohol or drug abuse patient.[facility] Center[facility] the event this information is protected by the Federal Confidentiality of Alcohol and Drug Abuse Patient Records regulations: The Federal rules restrict any use of the information to criminally investigate or prosecute any alcohol or drug abuse patient.[facility] CenterIn the event this information is protected by the Federal Confidentiality of Alcohol and Drug Abuse Patient Records regulations: The Federal rules restrict any use of the information to criminally investigate or prosecute any alcohol or drug abuse patient.[facility] CenterIn the event this information is protected by the Federal Confidentiality of Alcohol and Drug Abuse Patient Records regulations: The Federal rules restrict any use of the information to criminally investigate or prosecute any alcohol or drug abuse patient.[facility] CenterIn the event this information is protected by the Federal Confidentiality of Alcohol and Drug Abuse Patient Records regulations: The Federal rules restrict any use of the information to criminally investigate or prosecute any alcohol or drug abuse patient.[facility] CenterIn the event this information is protected by the Federal Confidentiality of Alcohol and Drug Abuse Patient Records regulations: The Federal rules restrict any use of the information to criminally investigate or prosecute any alcohol or drug abuse patient.[facility] CenterIn the event this information is protected by the Federal Confidentiality of Alcohol and Drug Abuse Patient Records regulations: The Federal rules restrict any use of the information to criminally investigate or prosecute any alcohol or drug abuse patient.[facility] CenterIn the event this information is protected by the Federal Confidentiality of Alcohol and Drug Abuse Patient Records regulations: The Federal rules restrict any use of the information to criminally investigate or prosecute any alcohol or drug abuse patient.[facility] CenterIn the event this information is protected by the Federal Confidentiality of Alcohol and Drug Abuse Patient Records regulations: The Federal rules restrict any use of the information to criminally investigate or prosecute any alcohol or drug abuse patient.[facility] CenterIn the event this information is protected by the Federal Confidentiality of Alcohol and Drug Abuse Patient Records regulations: The Federal rules restrict any use of the information to criminally investigate or prosecute any alcohol or drug abuse patient.[facility] CenterIn the event this information is protected by the Federal Confidentiality of Alcohol and Drug Abuse Patient Records regulations: The Federal rules restrict any use of the information to criminally investigate or prosecute any alcohol or drug abuse patient.[facility] CenterIn the event this information is protected by the Federal Confidentiality of Alcohol and Drug Abuse Patient Records regulations: The Federal rules restrict any use of the information to criminally investigate or prosecute any alcohol or drug abuse patient.[facility] CenterIn the event this information is protected by the Federal Confidentiality of Alcohol and Drug Abuse Patient Records regulations: The Federal rules restrict any use of the information to criminally investigate or prosecute any alcohol or drug abuse patient.[facility] CenterIn the event this information is protected by the Federal Confidentiality of Alcohol and Drug Abuse Patient Records regulations: The Federal rules restrict any use of the information to criminally investigate or prosecute any alcohol or drug abuse patient.[facility] CenterIn the event this information is protected by the Federal Confidentiality of Alcohol and Drug Abuse Patient Records regulations: The Federal rules restrict any use of the information to criminally investigate or prosecute any alcohol or drug abuse patient.[facility] CenterIn the event this information is protected by the Federal Confidentiality of Alcohol and Drug Abuse Patient Records regulations: The Federal rules restrict any use of the information to criminally investigate or prosecute any alcohol or drug abuse patient.[facility] CenterIn the event this information is protected by the Federal Confidentiality of Alcohol and Drug Abuse Patient Records regulations: The Federal rules restrict any use of the information to criminally investigate or prosecute any alcohol or drug abuse patient.[facility] CenterIn the event this information is protected by the Federal Confidentiality of Alcohol and Drug Abuse Patient Records regulations: The Federal rules restrict any use of the information to criminally investigate or prosecute any alcohol or drug abuse patient.[facility] Reason for Visit (unrecogniz ed section and [...] increased SOB and increasing sx x 1 weel Reason Comments Cough Cough, congestion an d sinus pressure x 2 weeks Reason Comments Patient Update Appointment Pharmacy change Reason Comments Cough Chest congestion, SO B, runny nose, nasal congestion, productive, thick green/brown phlegm, bloody sinueses x 1-2 months Reason Comments Urinary Problem pain with urination x couple months Reason Onset Date Comments Results 09/21/2024 Care Teams (unrecognized sec tion and content) Garnett Machine Operator Relationship Specialty Start Date End Date Charan Arndt MD [address] [facility] [place] [address] PCP - General Internal Medicine 01/01/16 Lance Gillespie (Hist) Referring 09/07/16 Garnett Machine Operator Relationship Specialty Start Date End Date Charan Arndt MD [address] [facility] [place] [address] PCP - General Internal Medicine 01/01/16 Lance Gillespie (Hist) Referring 09/07/16 Garnett Machine Operator Relationship Specialty Start Date End Date Charan Arndt MD [address] [facility] [place] [address] PCP - General Internal Medicine 01/01/16 Lance Gillespie (Hist) Referring 09/07/16 Garnett Machine Operator Relationship Specialty Start Date End Date Charan Arndt MD [address] [facility] [place] [address] PCP - General Internal Medicine 01/01/16 Lance Gillespie (Hist) [address] [facility] [place] [address] Referring 09/07/16 Garnett Machine Operator Relationship Specialty Start Date End Date Charan Arndt MD [address] [facility] [place] [address] PCP - General Internal Medicine 01/01/16 Lance Gillespie (Hist) [address] [facility] [place] [address] Referring 09/07/16 Team Status: Active Member Role Status Dates Dr. Charan Arndt MD Family Provider Active Dr. Charan Arndt MD Primary Care Provider Active Team Status: Inactive Member Role Status Dates Dr. Charan Arndt MD Primary Care Provider, Referring Provider Active Dr. Rock Dick DO Attending Provider Active Team Status: Inactive Member Role Status Dates Dr. Charan Arndt MD Primary Care Provider Active Dr. Rock Dick DO Attending Provider, Referring Pro vider Active Garnett Machine Operator Relationship Specialty Start Date End Date Charan Arndt MD [address] [place] [address] PCP - General Internal Medicine 01/01/16 Lance Gillespie (Hist) [address] [place] [address] Referring 09/07/16 Garnett Machine Operator Relationship Specialty Start Date End Date Charan Arndt MD [address] [place] [address] PCP - General Internal Medicine 01/01/16 aLnce Gillespie (Hist) [address] [place] [address] Referring 09/07/16 Garnett Machine Operator Relationship Specialty Start Date End Date Charan Arndt MD [address] [place] [address] PCP - General Internal Medicine 01/01/16 Lance Gillespie (Hist) [address] [place] [address] Referring 09/07/16 Team Status: Inactive Member Role Status Dates Dr. Charan Arndt MD Primary Care Provider Active Dr. Mack Burrows MD Emergency Provider Active Garnett Machine Operator Relationship Specialty Start Date End Date Charan Perkins MD [address] [place] [address] PCP - General Pediatrics 12/12/22 Team Status: Inactive Member Role Status Dates Dr. Charan Arndt MD Primary Care Provider, Referring Provider Active Tammy Stone DOOR TO DOOR SALES REPRESENTATIVE, DOOR TO DOOR SALES REPRESENTATIVE-C Attending Provider Active Team Status: Inactive Member Role Status Dates Dr. Charan Arndt MD Primary Care Provider Active Tammy Stone DOOR TO DOOR SALES REPRESENTATIVE, DOOR TO DOOR SALES REPRESENTATIVE-C Attending Provider Active Team Status: Active Member Role Status Dates Dr. Charan Arndt MD Primary Care Provider Active Tammy Stone DOOR TO DOOR SALES REPRESENTATIVE, DOOR TO DOOR SALES REPRESENTATIVE-C Referring Provider, Other Pr ovider Active Dr. Rock Dick DO Attending Provider Active Team Status: Inactive Member Role Status Dates Dr. Charan Arndt MD Primary Care Provider Active Tammy Stone DOOR TO DOOR SALES REPRESENTATIVE, DOOR TO DOOR SALES REPRESENTATIVE-C Attending Provider, Referrin g Provider Active Garnett Machine Operator Relationship Specialty Start Date End Date Charan Arndt MD [address] [place] [address] PCP - General Internal Medicine 01/01/16 Lance Gillespie (Hist) [address] [place] [address] Referring 09/07/16 Garnett Machine Operator Relationship Specialty Start Date End Date Charan Arndt MD [address] [place] [address] PCP - General Internal Medicine 01/01/16 Lance Gillespie (Hist) [address] [place] [address] Referring 09/07/16 Garnett Machine Operator Relationship Specialty Start Date End Date Charan Arndt MD [address] [place] [address] PCP - General Internal Medicine 01/01/16 Lance Gillespie (Hist) [address] [place] [address] Referring 09/07/16 Team Status: Inactive Member Role Status Dates Dr. Charan Arndt MD Primary Care Provider Active Dr. Fabricio Kwong MD Emergency Provider Active Garnett Machine Operator Relationship Specialty Start Date End Date Charan Arndt MD [address] [place] [address] PCP - General Internal Medicine 01/01/16 Lance Gillespie (Hist) [address] [place] [address] Referring 09/07/16 Garnett Machine Operator Relationship Specialty Start Date End Date Charan Arndt MD [address] [place] [address] PCP - General Internal Medicine 01/01/16 Lance Gillespie (Hist) [address] [place] [address] Referring 09/07/16 Garnett Machine Operator Relationship Specialty Start Date End Date Charan Arndt MD [address] [place] [address] PCP - General Internal Medicine 01/01/16 Lance Gillespie (Hist) [address] [place] [address] Referring 09/07/16 Garnett Machine Operator Relationship Specialty Start Date End Date Charan Arndt MD [address] [place] [address] PCP - General Internal Medicine 01/01/16 Lance Gillespie (Hist) [address] [place] [address] Referring 09/07/16 Garnett Machine Operator Relationship Specialty Start Date End Date Charan Arndt MD [address] [place] [address] PCP - General Internal Medicine 01/01/16 Lance Gillespie (Hist) [address] [place] [address] Referring 09/07/16 Garnett Machine Operator Relationship Specialty Start Date End Date Charan Arndt MD [address] [place] [address] PCP - General Internal Medicine 01/01/16 Lance Gillespie (Hist) [address] [place] [address] Referring 09/07/16 Garnett Machine Operator Relationship Specialty Start Date End Date Charan Prekins MD [address] [place] [address] PCP - General Pediatrics 12/12/22 Garnett Machine Operator Relationship Specialty Start Date End Date Charan Arndt MD [address] [place] [address] PCP - General Internal Medicine 01/01/16 Lance Gillespie (Hist) [address] [place] [address] Referring 09/07/16 Garnett Machine Operator Relationship Specialty Start Date End Date Charan Arndt MD [address] [place] [address] PCP - General Internal Medicine 01/01/16 Lance Gillespie (Hist) [address] [place] [place] [address] Referring 09/07/16 Serene Jerome PA-C [address] [place] [id number] Inspector Family Medicine 05/23/24 Alison Whitten APRN.OIL PLANT OPERATOR [address] [facility] [place] [address] [address] Inspector Internal Medicine 05/23/24 Esmer Gray PA-C [address] [place] [address] Way Inspector Family Medicine 05/23/24 Garnett Machine Operator Relationship Specialty Start Date End Date Charan Arndt MD [address] [place] [address] PCP - General Internal Medicine 01/01/16 Lance Gillespie (Hist) [address] [place] [place] [address] Referring 09/07/16 Serene Jerome PA-C [address] [place] [id number] Inspector Family Medicine 05/23/24 Alison Whitten APRN.OIL PLANT OPERATOR [address] [facility] [place] [address] [facility] Internal Medicine 05/23/24 Esmer Gray PA-C [address] [place] [address] [facility] Family Medicine 05/23/24 Team Status: Active Member Role Status Dates Dr. Charan Arndt MD Primary Care Provider Active Team Status: Inactive Member Role Status Dates Dr. Charan Arndt MD Primary Care Provider Active Start: May 27, 2024 End: May 27, 2024 Dr. Charan Arndt MD Referring Provider Active Start: May 27, 2024 End: May 27, 2024 Dr. Erick Hernández MD Attending Provider Active Start: May 27, 2024 End: May 27, 2024 Team Status: Inactive Member Role Status Dates Dr. Charan Arndt MD Primary Care Provider Active Start: June 14, 2024 End: June 14, 2024 Dr. Charan Arndt MD Referring Provider Active Start: June 14, 2024 End: June 14, 2024 Tammy Stone DOOR TO DOOR SALES REPRESENTATIVE, DOOR TO DOOR SALES REPRESENTATIVE-C Attending Provider Active Start: June 14, 2024 End: June 14, 2024 Team Status: Inactive Member Role Status Dates Dr. Charan Arndt MD Primary Care Provider Active Start: June 23, 2024 End: June 23, 2024 Tammy Stone DOOR TO DOOR SALES REPRESENTATIVE, DOOR TO DOOR SALES REPRESENTATIVE-C Attending Provider Active Start: June 23, 2024 End: June 23, 2024 Tammy Stone DOOR TO DOOR SALES REPRESENTATIVE, DOOR TO DOOR SALES REPRESENTATIVE-C Referring Provider Active Start: June 23, 2024 End: June 23, 2024 Team Status: Inactive Member Role Status Dates Dr. Charan Arndt MD Primary Care Provider Active Start: July 02, 2024 End: July 02, 2024 Tammy Stone DOOR TO DOOR SALES REPRESENTATIVE, DOOR TO DOOR SALES REPRESENTATIVE-C Attending Provider Active Start: July 02, 2024 End: July 02, 2024 Tammy Stone DOOR TO DOOR SALES REPRESENTATIVE, DOOR TO DOOR SALES REPRESENTATIVE-C Referring Provider Active Start: July 02, 2024 End: July 02, 2024 Team Status: Active Member Role Status Dates Dr. Charan Arndt MD Primary Care Provider Active Start: July 05, 2024 Tammy Stone DOOR TO DOOR SALES REPRESENTATIVE, DOOR TO DOOR SALES REPRESENTATIVE-C Referring Provider Active Start: July 05, 2024 Tammy Stone DOOR TO DOOR SALES REPRESENTATIVE, DOOR TO DOOR SALES REPRESENTATIVE-C Other Provider Active Start: July 05, 2024 Dr. Rock Dick DO Attending Provider Active S tart: July 05, 2024 Team Status: Inactive Member Role Status Dates Dr. Charan Arndt MD Primary Care Provider Active Start: July 05, 2024 End: July 05, 2024 Dr. Erick Hernández MD Attending Provider Active Start: July 05, 2024 End: July 05, 2024 Dr. Erick Hernández MD Referring Provider Active Start: July 05, 2024 End: July 05, 2024 Team Status: Inactive Member Role Status Dates Dr. Charan Arndt MD Primary Care Provider Active Start: July 12, 2024 End: July 12, 2024 Dr. Charan Arndt MD Referring Provider Active Start: July 12, 2024 End: July 12, 2024 Dr. Erick Hernández MD Attending Provider Active Start: July 12, 2024 End: July 12, 2024 Team Status: Inactive Member Role Status Dates Dr. Charan Arndt MD Primary Care Provider Active Start: July 27, 2024 End: July 27, 2024 Dr. Charan Arndt MD Referring Provider Active Start: July 27, 2024 End: July 27, 2024 Nicki Pantoja NP-C Attending Provider Active Start: July 27, 2024 End: July 27, 2024 Team Status: Inactive Member Role Status Dates Dr. Charan Arndt MD Primary Care Provider Active Start: August 27, 2024 End: August 28, 2024 Miguel Ángel Liao MD Emergency Provider Active Star t: August 27, 2024 End: August 28, 2024 Dr. Hyun Duncan MD Admit Provider Active St art: August 27, 2024 End: August 28, 2024 Dr. Hyun Duncan MD Attending Provider Active Start: August 27, 2024 End: August 28, 2024 Dr. Jone Dudley MD Other Provider Active Start: August 27, 2024 End: August 28, 2024 Dr. Jeffry Bo MD Other Provider Active Start: August 27, 2024 End: August 28, 2024 Dr. Magdi Serrano MD Other Provider Active Star t: August 27, 2024 End: August 28, 2024 Dr. Rock Dick , Other Provider Active Start : August 27, 2024 End: August 28, 2024 Dr. Calvin Jasso MD Other Provider Active Sta rt: August 27, 2024 End: August 28, 2024 Dr. Sebastian Charles MD Other Provider Active St art: August 27, 2024 End: August 28, 2024 Dr. Jamal Mina MD Other Provider Active S tart: August 27, 2024 End: August 28, 2024 Dr. Claudine Davis MD Other Provider Active Start: August 27, 2024 End: August 28, 2024 Dr. Morris Disla MD Other Provider Active Start : August 27, 2024 End: August 28, 2024 Dr. Fabien Boles MD Other Provider Active Start: August 27, 2024 End: August 28, 2024 Dr. Jarek Rosas MD Other Provider Active Start : August 27, 2024 End: August 28, 2024 Dr. Sirisha Lorenzo MD Other Provider Active Star t: August 27, 2024 End: August 28, 2024 Dr. Rosaura Mosley MD Other Provider Active Sta rt: August 27, 2024 End: August 28, 2024 Dr. Debbie Jimenez MD Other Provider Active Sta rt: August 27, 2024 End: August 28, 2024 Dr. Krishan Calzada MD Other Provider Active Star t: August 27, 2024 End: August 28, 2024 Dr. Jermaine Valenzuela MD Other Provider Active St art: August 27, 2024 End: August 28, 2024 Dr. Joe Crouch MD Other Provider Active Star t: August 27, 2024 End: August 28, 2024 Dr. Sukhdeep Michelle DO Other Provider Active St art: August 27, 2024 End: August 28, 2024 Dr. Erica Palacios MD Other Provider Active Start: August 27, 2024 End: August 28, 2024 Dr. Kee Lagos MD Other Provider Active St art: August 27, 2024 End: August 28, 2024 Dr. Mauricio Culp DO Other Provider Active Start: August 27, 2024 End: August 28, 2024 Dr. Humberto Ashley MD Other Provider Active Star t: August 27, 2024 End: August 28, 2024 Dr. Roel Bermudez MD Other Provider Active Sta rt: August 27, 2024 End: August 28, 2024 Al Conner MD Other Provider Active Start: [facility] 2024 End: August 28, 2024 Dr. Nael Grullon MD Other Provider Active Start: August 27, 2024 End: August 28, 2024 Charissa Vickers MD Other Provider Active Start : August 27, 2024 End: August 28, 2024 Dr. Maria M Triana DO Other Provider Active St art: August 27, 2024 End: August 28, 2024 Dr. Swathi Pete MD Other Provider Active Start: August 27, 2024 End: August 28, 2024 Dr. Crow Barrera MD Other Provider Active Sta rt: August 27, 2024 End: August 28, 2024 Dr. Pauline Lyons MD Other Provider Active Start : August 27, 2024 End: August 28, 2024 Dr. Saqib Holcomb MD Other Provider Active Start: August 27, 2024 End: August 28, 2024 Dr. Eliud Tripp MD Other Provider Active Start : August 27, 2024 End: August 28, 2024 Dr. Nehemias Martines MD Other Provider Active Sta rt: August 27, 2024 End: August 28, 2024 Sofia Smith MD Other Provider Active Start : August 27, 2024 End: August 28, 2024 Dr. Jerome Pollack MD Other Provider Active St art: August 27, 2024 End: August 28, 2024 Dr. Laxmi Oh MD Other Provider Active Start : August 27, 2024 End: August 28, 2024 Dr. Flaco Hidalgo MD Other Provider Active Sta rt: August 27, 2024 End: August 28, 2024 Dr. Otto Gorman MD Other Provider Active Start: August 27, 2024 End: August 28, 2024 Dr. Saturnino Calixto MD Other Provider Active St art: August 27, 2024 End: August 28, 2024 Dr. Chiara Mccracken MD Other Provider Active Star t: August 27, 2024 End: August 28, 2024 Dr. Chandler Drake MD Other Provider Active St art: August 27, 2024 End: August 28, 2024 Dr. Robyn Fontana MD Other Provider Active Start: August 27, 2024 End: August 28, 2024 Kandi Ray MD Other Provider Active Start: August 27, 2024 End: August 28, 2024 Garnett Machine Operator Relationship Specialty Start Date End Date Charan Arndt MD [address] [place] [place] [address] PCP - General Internal Medicine 01/01/16 Lance Gillespie (Hist) [address] [place] [address] Referring 09/07/16 Older, Alison, TORPEDOMAN'S MATE.OIL PLANT OPERATOR [address] [facility] [place] [address] Way Inspector Internal Medicine 05/23/24 Garnett Machine Operator Relationship Specialty Start Date End Date Charan Arndt MD [address] [place] [address] PCP - General Internal Medicine 01/01/16 Lance Gillespie (Hist) [address] [place] [address] Referring 09/07/16 Older, Alison, TORPEDOMAN'S MATE.OIL PLANT OPERATOR [address] [facility] [place] [address] Way Inspector Internal Medicine 05/23/24 Team Status: Active Member Role Status Dates Dr. Charan Arndt MD Primary Care Provider Active Start: August 28, 2024 Miguel Ángel Liao MD Emergency Provider Active Star t: August 28, 2024 Dr. Hyun Duncan MD Admit Provider Active St art: August 28, 2024 Dr. Hyun Duncan MD Attending Provider Active Start: August 28, 2024 Dr. Hyun Duncan MD Other Provider Active St art: August 28, 2024 Dr. Jone Dudley MD Other Provider Active Start: August 28, 2024 Dr. Jeffry Bo MD Other Provider Active Start: August 28, 2024 Dr. Magdi Serrano MD Other Provider Active Star t: August 28, 2024 Dr. Rock Dick DO Other Provider Active Start : August 28, 2024 Dr. Calvin Jasso MD Other Provider Active Sta rt: August 28, 2024 Dr. Sebastian Charles MD Other Provider Active St art: August 28, 2024 Dr. Jamal Mina MD Other Provider Active S tart: August 28, 2024 Dr. Claudine Davis MD Other Provider Active Start: August 28, 2024 Dr. Morris Disla MD Other Provider Active Start : August 28, 2024 Dr. Fabien Boles MD Other Provider Active Start: August 28, 2024 Dr. Jarek Rosas MD Other Provider Active Start : August 28, 2024 Dr. Sirisha Lorenzo MD Other Provider Active Star t: August 28, 2024 Dr. Rosaura Mosley MD Other Provider Active Sta rt: August 28, 2024 Dr. Debbie Jimenez MD Other Provider Active Sta rt: August 28, 2024 Dr. Krishan Calzada MD Other Provider Active Star t: August 28, 2024 Dr. Jermaine Valenzuela MD Other Provider Active St art: August 28, 2024 Dr. Joe Crouch MD Other Provider Active Star t: August 28, 2024 Dr. Sukhdeep Michelle DO Other Provider Active St art: August 28, 2024 Dr. Erica Palacios MD Other Provider Active Start: August 28, 2024 Dr. Kee Lagos MD Other Provider Active St art: August 28, 2024 Dr. Mauricio Culp DO Other Provider Active Start: August 28, 2024 Dr. Humberto Ashley MD Other Provider Active Star t: August 28, 2024 Dr. Roel Bermudez MD Other Provider Active Sta rt: August 28, 2024 Al Conner MD Other Provider Active Start: [facility] 2024 Dr. Nael Grullon MD Other Provider Active Start: August 28, 2024 Charissa Vickers MD Other Provider Active Start : August 28, 2024 Dr. Maria M Triana DO Other Provider Active St art: August 28, 2024 Dr. Swathi Pete MD Other Provider Active Start: August 28, 2024 Dr. Crow Barrera MD Other Provider Active Sta rt: August 28, 2024 Dr. Pauline Lyons MD Other Provider Active Start : August 28, 2024 Dr. Saqib Holcomb MD Other Provider Active Start: August 28, 2024 Dr. Eliud Tripp MD Other Provider Active Start : August 28, 2024 Dr. Nehemias Martines MD Other Provider Active Sta rt: August 28, 2024 Sofia Smith MD Other Provider Active Start : August 28, 2024 Dr. Jerome Pollack MD Other Provider Active St art: August 28, 2024 Dr. Laxmi Oh MD Other Provider Active Start : August 28, 2024 Dr. Flaco Hidalgo MD Other Provider Active Sta rt: August 28, 2024 Dr. Otto Gorman MD Other Provider Active Start: August 28, 2024 Dr. Saturnino Calixto MD Other Provider Active St art: August 28, 2024 Dr. Chiara Mccracken MD Other Provider Active Star t: August 28, 2024 Dr. Chandler Drake MD Other Provider Active St art: August 28, 2024 Dr. Robyn Fontana MD Other Provider Active Start: August 28, 2024 aKndi Ray MD Other Provider Active Start: August 28, 2024 Team Status: Active Member Role Status Dates Dr. Charan Arndt MD Primary Care Provider Active Start: November 25, 2024 SANDRA Reyes Attending Provider Active Start: November 25, 2024 SANDRA Reyes Referring Provider Active Start: November 25, 2024 Team Status: Inactive Member Role Status Dates Dr. Charan Arndt MD Primary Care Provider Active Start: November 26, 2024 End: November 26, 2024 Dr. Charan Arndt MD Referring Provider Active Start: November 26, 2024 End: November 26, 2024 SANDRA Reyes Attending Provider Active Start: November 26, 2024 End: November 26, 2024 Team Status: Inactive Member Role Status Dates Dr. Charan Arndt MD Primary Care Provider Active Start: November 25, 2024 End: November 25, 2024 SANDRA Reyes Attending Provider Active Start: November 25, 2024 End: November 25, 2024 SANDRA Reyes Referring Provider Active Start: November 25, 2024 End: November 25, 2024 Garnett Machine Operator Relationship Specialty Start Date End Date Charan Arndt MD [address] [place], [place] [id number] PCP - General Internal Medicine 01/01/16 Lance Gillespie (Hist) [address] [facility] [place] [address] Referring 09/07/16 Fish, APRN. AlisonOIL PLANT OPERATOR [address] [place] [address] Way Inspector Internal Medicine 05/23/24 Team Status: Active Member Role/Relationship Status Dates Dr. Charan Arndt MD Primary Care Provider Active Team Status: Inactive Member Role/Relationship Status Dates Dr. Charan Arndt MD Primary Care Provider Active Start: November 25, 2024 End: November 25, 2024 SANDRA Reyes Attending Provider Active Start: November 25, 2024 End: November 25, 2024 SANDRA Reyes Referring Provider Active Start: November 25, 2024 End: November 25, 2024 Team Status: Inactive Member Role/Relationship Status Dates Dr. Charan Arndt MD Primary Care Provider Active Start: November 26, 2024 End: November 26, 2024 Dr. Charan Arndt MD Referring Provider Active Start: November 26, 2024 End: November 26, 2024 SANDRA Reyes Attending Provider Active Start: November 26, 2024 End: November 26, 2024 Team Status: Inactive Member Role/Relationship Status Dates Dr. Charan Arndt MD Primary Care Provider Active Start: January 21, 2025 End: January 21, 2025 Dr. Charan Arndt MD Referring Provider Active Start: January 21, 2025 End: January 21, 2025 SANDRA Reyes Attending Provider Active Start: January 21, 2025 End: January 21, 2025 (unrecognized sect ion and content) No Status Records FoundNo Status Records FoundNo Status Records Found INFORMATION SOURCE (unrecogn ized section and content) DATE CREATED AUTHOR 08/02/2023 [facility] DATE CREATED AUTHOR AUTHOR'S ORGANIZ ATION 12/08/2024 [facility] DATE CREATED AUTHOR AUTHOR'S ORGANIZ ATION 01/01/2025 [facility] FOR RECORDS PERTAINING TO PATIENTS WHO ARE [...] BE BASED ON THE PRIMARY CLINICAL RECORDS. [employer] provides no warranty or guarantee of the accuracy or completeness of information in this document.
[2025-01-22 23:42] VITALS: PULSE 76; RESP 10; O2SAT 96
--- NOTE | 2025-01-22 23:44 | EX.ED.DYSGE1 ---
HPI History of Present Illness Chief Complaint: Stroke Alert Informant: family and EMS Narrative Narrative: Patient is a 64-year-old male with past medical history of COPD seizure disorder bipolar and history of alcohol and polysubstance abuse. According to family he was drinking all day yesterday. They are unsure if he was drinking alcohol today. Reportedly roughly 30 minutes prior to EMS activation the patient was seen and apparently normal. When they went and checked on him he was unresponsive and therefore EMS was called by family. EMS states when they arrived patient was unresponsive but still breathing. He would minimally respond to pain. EMS states blood sugar was normal. They did give Narcan without any significant symptom improvement. They report was sternal rub he did respond to pain and they were unsure if there was any associated facial droop so therefore they decided to activate a stroke alert. Upon arrival to the ER the patient is minimally responsive and cannot offer any further history. [facility] Medical History Closed head injury Left ankle injury Bilateral tennis elbow Depression LACEY (obstructive sleep apnea) Lung nodule Sleep-related breathing disorder COPD (chronic obstructive pulmonary disease) GERD (gastroesophageal reflux disease) Bipolar disorder Migraine Tobacco abuse Spinal stenosis Traumatic brain injury Home Medications ?Medication ?Instructions ?Recorded ?Last Taken ?Type levetiracetam 500 mg tablet 500 mg PO BID Check with primary 04/28/20 03/28/24 History doctor divalproex 250 mg tablet,delayed 750 mg PO BID 03/28/24 03/28/24 History release albuterol sulfate 2.5 mg/3 mL 2.5 mg (3 mL) inhalation Q4H PRN 04/15/24 Unknown Rx (0.083 %) solution for nebulization #120 vials Disability Placard #1 ea 06/14/24 Unknown Rx fluticasone propionate 50 2 spray intranasal DAILY #16 grams 06/14/24 Unknown Rx mcg/actuation nasal spray,suspension albuterol sulfate 90 mcg/actuation 2 puff inhalation Q4H PRN 07/27/24 Unknown Rx aerosol inhaler shortness of breath or wheezing #8.5 grams amitriptyline 100 mg tablet 100 mg PO QHS PRN sleep 07/27/24 Unknown History gabapentin 800 mg tablet 800 mg PO TID 08/27/24 Unknown History fluticasone fur. 200 mcg-umeclid 1 inh inhalation DAILY #60 ea 09/22/24 Unknown Rx 62.5 mcg-vilant 25 mcg inhalat.powder (Trelegy Ellipta) dupilumab 300 mg/2 mL subcutaneous 300 mg (2 mL) subcut Q2W #4 mL 11/26/24 01/21/25 Rx pen injector (Dupixent) Allergy/AdvReac Type Severity Reaction Status Date / Time dextromethorphan HBr (From AdvReac Intermediate tachycardia, Verified 01/21/25 09:01 NyQuil) feels anxious doxylamine (From NyQuil) AdvReac Intermediate Tachycardia, Verified 01/21/25 09:01 feels anxious pseudoephedrine HCl (From AdvReac Intermediate Tachycardia, Verified 01/21/25 09:01 NyQuil) feels anxious sertraline HCl (From Zoloft) AdvReac Diarrhea Verified 01/21/25 09:01 Family History Father Dementia Alzheimers disease Diabetes Mother Diabetes Surgical History History of hernia repair Social History household members: spouse and family Smoking Status: Heavy Smoker (>10/day) Tobacco: How many years used: 30 second hand exposure: Yes alcohol intake: never substance use type: does not use ROS ROS ED ROS Narrative Unable to obtain review of systems secondary to patient's altered mental status Review of Systems ROS Unobtainable: due to mental status EXAM Physical Exam Const Vital Signs: 01/22/25 23:31 01/22/25 23:42 01/23/25 00:25 Temperature 96.7 F L Temperature Source Temporal Pulse Rate 80 76 78 Respiratory Rate 10 L 10 L 10 L Blood Pressure 122/83 H 122/80 H Blood Pressure Mean 96 94 Pulse Ox 98 96 100 Oxygen Delivery Method Room Air Nasal Cannula Room Air 01/23/25 01:00 Temperature Temperature Source Pulse Rate 80 Respiratory Rate 11 L Blood Pressure 98/78 Blood Pressure Mean 84 Pulse Ox 99 Oxygen Delivery Method Room Air Positive well nourished and well developed General Appearance ED: well developed; Negative for diaphoretic or pallor HEENT Reports dry mucous membranes HEENT Narrative: Normocephalic atraumatic No tongue or lip swelling no oral lesions no airway edema or compromise; no secondary findings in the posterior pharynx to suggest infection Mucous membranes are dry and tacky No tongue or cheek biting to suggest seizure activity Mouth ED: Yes dry mucous membranes Mouth: dry mucous membranes Eyes Eyes Narrative: Pupils are pinpoint minimally responsive to light concerning for opioid use Neck no JVD Chest Wall palpation of chest normal Chest Narrative: No bony deformity or crepitance noted Resp Resp Narrative: Breath sounds are diminished throughout Patient has diffuse expiratory wheeze and rhonchi consistent with COPD However no signs of acute respiratory distress Cardio regular rate and regular rhythm Rate: other Other Details: Radial and carotid pulses are equal and symmetric GI non-distended and no masses GI Narrative: Abdomen is soft and nondistended with hypoactive bowel sounds No organomegaly noted No pain with palpation present Extremity Extremity Narrative: Pelvis is stable and there is no shortening or external rotation of either lower extremity No signs of long bone injury such as bony deformity or joint effusion Compartments are soft and compressible going against compartment syndrome Neuro Neuro Narrative: Patient is obtunded with GCS of 12 The patient will awake/respond to painful stimuli. He will localize to painful stimuli and is able to move all extremity. However he will quickly fall back asleep. There is no obvious focal neurologic deficit Psych Psych Narrative: Patient is obtunded with GCS of 12 Skin no rashes or lesions noted and no wounds General Skin Exam: Negative for jaundice or pallor MDM MDM MDM Narrative Medical decision making narrative: Patient arrived to the ER obtunded but would awaken to painful stimuli and localizes that pain to move all extremity. Therefore there is no findings of acute neurologic dysfunction there is no need for a stroke alert. His symptoms are most consistent with potential medication overdose or opioid induced altered mental status. He does have a remote history of seizure disorder and therefore I did elect to perform a lactic acid lactate dehydrogenase value to ensure that this altered mental status was not postictal phase. The labs were not elevated going against a seizure event and he had no tongue or cheek biting either to suggest this. Head CT was obtained to check for potential mass or spontaneous subarachnoid or subdural hemorrhage but was normal. As his pupils were more pinpoint there was concern for opioid overdose but Narcan given by EMS and in the ER did not have improvement of symptoms going against this. Urine tox urine also showed no sign of opioid use. Family reported that he had gotten into an argument with his and he reportedly told one of his sons that he was going to take some medications and sleep. The son believes he potentially took gabapentin and or Elavil. The patient's EKG does not show a prolonged QRS or QTc indicating that he is not having TCA toxicity. The remainder of his labs showed no findings concerning for secondary infection and he did not have an elevated alcohol level either as a cause of his altered mental status. At this time he is still obtunded but is protecting his airway and will wake to painful stimuli but then quickly fall back asleep. Based on the persistent derangement to his mental status I do not believe he is safe for discharge. A VBG was obtained and his CO2 is normal going against respiratory failure with hypercapnia as the cause of his altered mental status as well. Therefore as the workup this evening is most consistent with altered mental status secondary to medication ingestion and he has not returned to his baseline mental status I feel he will need to be monitored until he has resulted to his baseline. The case was therefore discussed with the hospitalist who agrees accept the patient for continued care History & Record Review Discussion w/independent historian: EMS personnel and Family Lab Data Attestation: I reviewed the patient's lab results. Labs: Laboratory Results - last 24 hr 01/22/25 01/22/25 01/22/25 23:12 23:35 23:35 WBC 9.5 RBC 4.59 L Hgb 14.0 Hct 42.1 MCV 91.7 MCH 30.5 MCHC 33.3 RDW Std Deviation 46.4 H RDW Coeff of Aaron 13.7 Plt Count 264 MPV 9.1 Immature Gran % (Auto) 1.100 H Neut % (Auto) 69.5 Lymph % (Auto) 24.6 Bailey % (Auto) 4.1 Eos % (Auto) 0.2 Baso % (Auto) 0.5 Absolute Neuts (auto) 6.6 Absolute Lymphs (auto) 2.34 Nucleated RBC % 0 Sodium 139 Potassium 3.8 Chloride 99 Carbon Dioxide 28.6 Anion Gap 11 BUN 16 Creatinine 0.73 Estim Creat Clear Calc 78.65 Est GFR (MDRD) Non-Af 103 BUN/Creatinine Ratio 22.2 H Glucose 89 Lactic Acid 1.6 Calcium 9.0 Phosphorus 4.1 Magnesium 1.8 Total Bilirubin 0.43 Direct Bilirubin 0.19 AST 18 ALT 8 Alkaline Phosphatase 70 Ammonia 22.8 Lactate Dehydrogenase 159 Total Protein 6.3 Albumin 4.0 Globulin 2.3 Urine Color Urine Clarity Urine pH Ur Specific Wallace Urine Protein Urine Glucose (UA) Urine Ketones Urine Occult Blood Urine Nitrite Urine Bilirubin Urine Urobilinogen Ur Leukocyte Esterase Urine RBC Urine WBC Ur Squamous Epith Cells Urine Bacteria Urine Mucus Salicylates < 0.5 L Urine Opiates Screen U Buprenorphine Qual Ur Oxycodone Screen Urine Methadone Screen Urine Fentanyl Screen Acetaminophen < 5.0 L Ur Barbiturates Screen Ur Phencyclidine Scrn Ur Amphetamines Screen U Benzodiazepines Scrn Urine Cocaine Screen U Cannabinoids Screen Ethyl Alcohol Cancelled < 10.1 01/22/25 23:49 WBC RBC Hgb Hct MCV MCH MCHC RDW Std Deviation RDW Coeff of Aaron Plt Count MPV Immature Gran % (Auto) Neut % (Auto) Lymph % (Auto) Bailey % (Auto) Eos % (Auto) Baso % (Auto) Absolute Neuts (auto) Absolute Lymphs (auto) Nucleated RBC % Sodium Potassium Chloride Carbon Dioxide Anion Gap BUN Creatinine Estim Creat Clear Calc Est GFR (MDRD) Non-Af BUN/Creatinine Ratio Glucose Lactic Acid Calcium Phosphorus Magnesium Total Bilirubin Direct Bilirubin AST ALT Alkaline Phosphatase Ammonia Lactate Dehydrogenase Total Protein Albumin Globulin Urine Color Yellow Urine Clarity Clear Urine pH 6.5 Ur Specific Wallace 1.020 Urine Protein 30 H Urine Glucose (UA) Normal Urine Ketones 5 H Urine Occult Blood Negative Urine Nitrite Negative Urine Bilirubin Negative Urine Urobilinogen Normal Ur Leukocyte Esterase Negative Urine RBC 0 SEEN Urine WBC 0 SEEN Ur Squamous Epith Cells 0 SEEN Urine Bacteria 0 SEEN Urine Mucus 0 SEEN Salicylates Urine Opiates Screen NEGATIVE U Buprenorphine Qual NEGATIVE Ur Oxycodone Screen NEGATIVE Urine Methadone Screen NEGATIVE Urine Fentanyl Screen NEGATIVE Acetaminophen Ur Barbiturates Screen NEGATIVE Ur Phencyclidine Scrn NEGATIVE Ur Amphetamines Screen NEGATIVE U Benzodiazepines Scrn NEGATIVE Urine Cocaine Screen NEGATIVE U Cannabinoids Screen NEGATIVE Ethyl Alcohol ABG Data ABG results: ABG 01/22/25 23:44 Specimen Type NINO Sample Site Not entered VBG pH 7.41 VBG pO2 37 VBG HCO3 34 H VBG Total CO2 36 H VBG O2 Sat (Calc) 69 VBG Base Excess 9 H POC Mix VBG pCO2 Pt Tmp 54.2 H O2 Delivery Device Room Air Radiography Diagnostic Testing: Clinical Impression(s) from Imaging Studies Brain CT 01/22/25 23:27 IMPRESSION: No acute intracranial finding. Chronic findings as described. Dr. Betancourt discussed these findings via telephone with Dr. Sullivan at 11:42 p.m. on 01/22/2025. Reading Location: [facility] Chest X-Ray 01/22/25 23:59 IMPRESSION: No acute chest findings Reading Location: [place] [id number] Chest x-ray as interpreted by the emergency medicine physician reveals no acute infiltrate pneumothorax or pleural effusion Management Discussion w/another healthcare provider: Hospitalist Discharge Plan Dx/Rx/DC Orders Clinical Impression: Acute alteration in mental status, Tobacco abuse, Bipolar disorder, GERD (gastroesophageal reflux disease), Stage 4 very severe COPD by GOLD classification Disposition Disposition: Acute Care Hospital [facility] Discharge Date/Time: 01/23/25 01:51
[2025-01-22 23:48] LABS: SITE Not entered; VBG BASE EXCESS 9 mmol/L (-1.0-3.5); VBG PO2 37 mmHg (25-40); VBG SO2 69 % (50-70); VBG TCO2 36 mmol/L (23-33)
[2025-01-22 23:49] VITALS: BMI 17.7
--- NOTE | 2025-01-22 23:54 | ED.RN ---
pt's son present and states that earlier today patient stated he took extra elavil & gabapentin. notified Dr Sullivan of this.
[2025-01-22 23:59] LABS: LDH 159 U/L (87-241)
--- NOTE | 2025-01-22 23:59 | RAD_ITS ---
PROCEDURE: CHEST 1 VIEW (PORTABLE) 01/23/2025 REASON FOR EXAM: ALTERED MENTAL STATUS TECHNIQUE: Frontal view of the chest. COMPARISON: 08/27/2024 FINDINGS: Normal heart size. Small pleural effusion/thickening. No large effusion or pneumothorax. Well inflated lungs. No consolidation, effusion, or pneumothorax. RAD/Chest 1 View (Portable) IMPRESSION: No acute chest findings Reading Location: [facility]-
--- NOTE | 2025-01-23 00:01 | ED.RN ---
NIH extremely difficult to complete d/t patient being unresponsive
[2025-01-23] MEDS: 0.9% Normal Saline (1000mL) 1,000 ML 999 ML IV ×2 (00:05→02:48)
[2025-01-23 00:10] LABS: Hematocrit 42.1 % (40-54); Hemoglobin 14.0 g/dL (13.0-16.5); Immature Granulocytes Count 0.100 X10^3/uL (0.0-0.0); Mean Corp Hgb Conc 33.3 g/dL (32-36); Mean Corpuscular Volume 91.7 fL (80-94); Mean Platelet Vol. 9.1 fl (6.2-12.0); NRBC Flagged by Analyzer 0 % (0-5); Platelet Count 264 K/mm3 (150-450); RBC Distribution Width CV 13.7 % (11.6-14.6); RBC Distribution Width SD 46.4 fl (35.1-43.9); Red Blood Count 4.59 M/mm3 (4.6-6.2); White Blood Count 9.5 K/mm3 (4.4-11.0)
[2025-01-23 00:19] LABS: Ammonia 22.8 umol/L (16-60)
[2025-01-23 00:21] LABS: AST(SGOT) 18 U/L (<=37); Alanine Aminotransfer ALT/SGPT 8 U/L (<=46); Albumin, Serum 4.0 g/dL (3.4-4.8); Alkaline Phosphatase 70 U/L (40-129); Anion Gap 11 (5-15); BUN 16 mg/dL (4-19); BUN/Creat Ratio 22.2 RATIO (10-20); Bilirubin, Direct 0.19 mg/dL (0.00-0.30); Calcium,Total 9.0 mg/dL (7.6-11.0); Carbon Dioxide 28.6 mmol/L (21.0-32.0); Chloride 99 mmol/L (98-108); Estimated Creatinine Clearance 78.65 ml/min (50-250); Globulin 2.3 g/dL (2.2-4.2); Glucose 89 mg/dL (70-99); Potassium 3.8 mmol/L (3.3-5.1)
[2025-01-23 00:25] VITALS: BP 122/80; PULSE 78; RESP 10; O2SAT 100
[2025-01-23 00:26] LABS: Mucous, Urine 0 SEEN /hpf (<or=2+); Red Blood Cells-Urine 0 SEEN /hpf (0-5); Squamous Epithelial Cells - UA 0 SEEN /hpf (0-5)
[2025-01-23 00:46] LABS: Barbiturate Urine NEGATIVE (< 200 ng/mL); Benzodiazepine Urine NEGATIVE (< 200 ng/mL); PCP Urine NEGATIVE (< 25 ng/mL); THC Urine NEGATIVE (< 50 ng/mL)
[2025-01-23 01:00] VITALS: BP 98/78; PULSE 80; RESP 11; O2SAT 99
[2025-01-23 01:00] LABS: Acetaminophen (Tylenol) Level < 5.0 ug/mL (8.0-19.0); Alcohol, Blood (Medical)-Serum < 10.1 mg/dL (<=10.0); Salicylate < 0.5 mg/dL (2.8-20.0)
--- NOTE | 2025-01-23 01:26 | PCM.HP.STD ---
HPI - General General Date of Service: 01/23/25 Chief Complaint: Unresponsive. HPI Narrative The patient is a 64 y/o M w/ PMHx: Seizure disorder on Keppra and Depakote, Stage IV COPD with allergic rhinitis, Anxiety and Depression/Bipolar disorder, Tobacco use, LACEY, Hx TBI, Chronic migraines, EtOH and Polysubstance abuse who presents to the [facility] ED on 01/22/2025 with history per family of drinking alcohol all day the day prior and unclear if he was drinking on day of presentation however unfortunately proximately 30 minutes prior to arrival family checked on him and noted that he was unresponsive prompting EMS call noted that he was still breathing but not responding within normal blood sugar with Narcan ministration with some symptom improvement following with response to sternal rub prompting ED evaluation. EMS initially was unsure if there could be a mild facial droop therefore initially stroke alert was initiated but de-escalated. Previous presentation 08/2024 for encephalopathy of unclear significance suspected secondary to possible opiate overdose with CT/CTA head neck unremarkable, MRI of the brain with no acute findings with primary concern per neurology and division chair for substance abuse as etiology however patient reported when he was more alert that he had felt weak and lightheaded on day of admission and denied drug usage. Workup in the ED included T96.7, heart rate 80, BP 122/83, respiratory rate 10, 98% on room air, CBC with WBC 9.5, hemoglobin 14, platelet 264 with increased immature granulocytes, VBG with pH 7.41, bicarb 34, total CO2 36, O2 saturation 69%, CMP unremarkable, ammonia 22.8, LDH 159, lactic acid 1.6, salicylate less than 0.5, acetaminophen less than 5 point, UDS negative, ethyl alcohol less than 10.1, CT brain with no acute intracranial findings with chronic changes, chest x-ray with no acute cardiopulmonary findings. In the ED patient ministered 1 L normal saline and Narcan 2 mg IV x 1. [facility] Medical History Closed head injury Left ankle injury Bilateral tennis elbow Depression LACEY (obstructive sleep apnea) Lung nodule Sleep-related breathing disorder COPD (chronic obstructive pulmonary disease) GERD (gastroesophageal reflux disease) Bipolar disorder Migraine Tobacco abuse Spinal stenosis Traumatic brain injury Home Medications ?Medication ?Instructions ?Recorded ?Last Taken ?Type levetiracetam 500 mg tablet 500 mg PO BID Check with primary 04/28/20 03/28/24 History doctor divalproex 250 mg tablet,delayed 750 mg PO BID 03/28/24 03/28/24 History release albuterol sulfate 2.5 mg/3 mL 2.5 mg (3 mL) inhalation Q4H PRN 04/15/24 Unknown Rx (0.083 %) solution for nebulization #120 vials Disability Placard #1 ea 06/14/24 Unknown Rx fluticasone propionate 50 2 spray intranasal DAILY #16 grams 06/14/24 Unknown Rx mcg/actuation nasal spray,suspension albuterol sulfate 90 mcg/actuation 2 puff inhalation Q4H PRN 07/27/24 Unknown Rx aerosol inhaler shortness of breath or wheezing #8.5 grams amitriptyline 100 mg tablet 100 mg PO QHS PRN sleep 07/27/24 Unknown History gabapentin 800 mg tablet 800 mg PO TID 08/27/24 Unknown History fluticasone fur. 200 mcg-umeclid 1 inh inhalation DAILY #60 ea 09/22/24 Unknown Rx 62.5 mcg-vilant 25 mcg inhalat.powder (Trelegy Ellipta) dupilumab 300 mg/2 mL subcutaneous 300 mg (2 mL) subcut Q2W #4 mL 11/26/24 01/21/25 Rx pen injector (Dupixent) Allergy/AdvReac Type Severity Reaction Status Date / Time dextromethorphan HBr (From AdvReac Intermediate tachycardia, Verified 01/21/25 09:01 NyQuil) feels anxious doxylamine (From NyQuil) AdvReac Intermediate Tachycardia, Verified 01/21/25 09:01 feels anxious pseudoephedrine HCl (From AdvReac Intermediate Tachycardia, Verified 01/21/25 09:01 NyQuil) feels anxious sertraline HCl (From Zoloft) AdvReac Diarrhea Verified 01/21/25 09:01 Family History Father Dementia Alzheimers disease Diabetes Mother Diabetes Surgical History History of hernia repair Social History household members: spouse and family Smoking Status: Heavy Smoker (>10/day) Tobacco: How many years used: 30 second hand exposure: Yes alcohol intake: never substance use type: does not use ROS Review of Systems ROS Unobtainable: due to encephalopathy Vital Signs Vital Signs Vital Signs: 01/22/25 23:31 01/22/25 23:42 01/23/25 00:25 Temperature 96.7 F L Temperature Source Temporal Pulse Rate 80 76 78 Respiratory Rate 10 L 10 L 10 L Blood Pressure 122/83 H 122/80 H Blood Pressure Mean 96 94 Pulse Ox 98 96 100 Oxygen Delivery Method Room Air Nasal Cannula Room Air 01/23/25 01:00 Temperature Temperature Source Pulse Rate 80 Respiratory Rate 11 L Blood Pressure 98/78 Blood Pressure Mean 84 Pulse Ox 99 Oxygen Delivery Method Room Air Weight Weight: 116 lb 13.52 oz Body Mass Index (BMI) 17.7 Physical Exam Narrative Physical Examination: General: Patient currently awakening somewhat to stimuli but quickly falling back asleep, not alert, not able to answer orientation questions, fortunately started to follow some commands, no acute distress laying in the ED bed. Skin: Normal color, normal turgor, no icterus, no cyanosis except occasional stage ecchymosis, abrasion. HEENT: AT/NC, EOM unable to be assessed well is still lethargic, PERRLA, dry MM, no carotid bruits or JVD noted. Lungs: Mildly diminished, greater bases, appropriate effort, no rales, ronchi or wheezing. Heart: Regular rate and rhythm; no gallop, rub audible. Abdomen: Soft, thin habitus, NTTP, ND, normal BS, no appreciated HSM. Extremities: No cyanosis, no clubbing, no significant distal edema. Neurological: Patient currently awakening somewhat to stimuli but quickly falling back asleep, not alert, not able to answer orientation questions, fortunately started to follow some commands, no acute distress laying in the ED bed, cognitive function improving since initial ED arrival but still not baseline intact; pupils equally reactive to light and accommodation, cranial nerves difficult to assess given still persistent encephalopathy although improving, moving all 4 extremities spontaneously and following some commands, strength still severely globally decreased is still lethargic. Psychiatric: Affect appears flat, fatigued, no acute evidence of depressive or anxiety feelings but does have underlying history. Results Lab / Micro Data 01/22/25 23:12 01/22/25 23:12 Labs: Laboratory Results - last 24 hr 01/22/25 23:12: WBC 9.5, RBC 4.59 L, Hgb 14.0, Hct 42.1, MCV 91.7, MCH 30.5, MCHC 33.3, RDW Std Deviation 46.4 H, RDW Coeff of Aaron 13.7, Plt Count 264, MPV 9.1, Immature Gran % (Auto) 1.100 H, Neut % (Auto) 69.5, Lymph % (Auto) 24.6, [place] % (Auto) 4.1, Eos % (Auto) 0.2, Baso % (Auto) 0.5, Absolute Neuts (auto) 6.6, Absolute Lymphs (auto) 2.34, Nucleated RBC % 0, Sodium 139, Potassium 3.8, Chloride 99, Carbon Dioxide 28.6, Anion Gap 11, BUN 16, Creatinine 0.73, Estim Creat Clear Calc 78.65, Est GFR (MDRD) Non-Af 103, BUN/Creatinine Ratio 22.2 H, Glucose 89, Calcium 9.0, Total Bilirubin 0.43, Direct Bilirubin 0.19, AST 18, ALT 8, Alkaline Phosphatase 70, Lactate Dehydrogenase 159, Total Protein 6.3, Albumin 4.0, Globulin 2.3 01/22/25 23:35: Lactic Acid 1.6, Ammonia 22.8, Salicylates < 0.5 L, Acetaminophen < 5.0 L, Ethyl Alcohol Cancelled 01/22/25 23:35: Ethyl Alcohol < 10.1 01/22/25 23:49: Urine Opiates Screen NEGATIVE, U Buprenorphine Qual NEGATIVE, Ur Oxycodone Screen NEGATIVE, Urine Methadone Screen NEGATIVE, Urine Fentanyl Screen NEGATIVE, Ur Barbiturates Screen NEGATIVE, Ur Phencyclidine Scrn NEGATIVE, Ur Amphetamines Screen NEGATIVE, U Benzodiazepines Scrn NEGATIVE, Urine Cocaine Screen NEGATIVE, U Cannabinoids Screen NEGATIVE ABG Data ABG results: ABG 01/22/25 23:44 Specimen Type NINO Sample Site Not entered VBG pH 7.41 VBG pO2 37 VBG HCO3 34 H VBG Total CO2 36 H VBG O2 Sat (Calc) 69 VBG Base Excess 9 H POC Mix VBG pCO2 Pt Tmp 54.2 H O2 Delivery Device Room Air Imaging Radiology Impression Brain CT 01/22/25 23:27 IMPRESSION: No acute intracranial finding. Chronic findings as described. Dr. Betancourt discussed these findings via telephone with Dr. Sullivan at 11:42 p.m. on 01/22/2025. Reading Location: [facility] Chest X-Ray 01/22/25 23:59 IMPRESSION: No acute chest findings Reading Location: [place] [id number] Assessment & Plan Assessment/Plan (1) Encephalopathy acute: PLAN: Plan The patient is a 64 y/o M w/ PMHx: Seizure disorder on Keppra and Depakote, Stage IV COPD with allergic rhinitis, Anxiety and Depression/Bipolar disorder, Tobacco use, LACEY, Hx TBI, Chronic migraines, EtOH and Polysubstance abuse who presents to the [facility] ED on 01/22/2025 with history per family of drinking alcohol all day the day prior and unclear if he was drinking on day of presentation however unfortunately proximately 30 minutes prior to arrival family checked on him and noted that he was unresponsive prompting EMS call noted that he was still breathing but not responding within normal blood sugar with Narcan ministration with some symptom improvement following with response to sternal rub prompting ED evaluation. #1. Acute encephalopathy, unresponsive, unclear exact etiology but concern for possible substance abuse: Although UDS is negative still some concern for substance use, EtOH unremarkable, there is a potential that he took extra elavil and gabapentin per son report but uncertain, will admit to PCU, will aggressive hydrate, maintain on transitioned IV AED as noted as unclear if he took his doses today, obtain mag and phos levels as noted, maintain on fall and aspiration precautions, maintain on IV PPI, CM consulted. Once more alert will need to discuss what he ingested as family intimated that he likely took extra of his medications. #2. Possible EtOH Abuse: Per report per family potential for alcohol abuse with heavy alcohol the day prior. Unclear if current presentation is related, will maintain on CIWA protocol, IV thiamine and folic acid until oral intake appropriate. If necessary may also initiate IV phenobarbital if concerns arise. Magnesium and phosphorus levels requested. #3. History of polysubstance abuse: UDS negative, presentation 08/2024 with similar presentation with concern at that time for potential drug abuse as etiology for transient encephalopathy. #4. Chronic COPD with allergic rhinitis: Will hold home inhalers in the interim transition to ATC duonebs, PRN albuterol, HOB, IS parameters. #5. Seizure disorder: Given normal lab values including LDH and lactic acid lower suspicion for seizure activity but still uncertain, to be cautious we will transition to IV Keppra and Depakote regimen with doses now and continue. #6. LACEY: Unclear PAP therapy usage history, currently maintaining appropriate saturation despite having decreased responsiveness, at this time we will use supplemental oxygen if necessary. #7. Anxiety depression/bipolar disorder: Will temporally hold patient Depakote and amitriptyline regimen with as noted transition to IV Depakote given potential for seizure. #8. Tobacco Abuse: Encouraged cessation, inpatient consultation per RT, NR if desired. #9. DVT prophylaxis: Lovenox. Charges/Coding Visit Charges Inpatient E&M: 64601 Init Hosp L2
[2025-01-23 01:50] VITALS: BP 127/82; PULSE 72; RESP 10; TEMP 35.6; O2SAT 99
[2025-01-23 02:12] LABS: Color, Urine Yellow (Yellow); Glucose, Dipstick Normal (Normal); Ketone-Dipstick 5 mg/dl (Negative); Leukocyte Esterase-Dipstick Negative /ul (Negative); Nitrite-Dipstick Negative (Negative); Occult Blood-Urine Negative /ul (Negative); Protein-Dipstick 30 mg/dl (Negative); Specific Gravity, Urine 1.020 (1.002-1.030); Urine Bilirubin Dipstick Negative (Negative)
--- OUTSIDE RECORDS SUMMARY | 2025-01-23 02:17 | XMS RPT_ITS | CCD ---
Author Organization [facility] Care Team Providers Care Employee Development Manager Name Role Phone Dr. Priscilla Arndt Primary Care Provider Chase RESEARCH ASST, RESEARCH ASST-C Tammy Referring Provider Chase RESEARCH ASST, RESEARCH ASST-C Tammy Other Provider Dr. Magdi Serrano Attending Provider Dr. Rock Dick Attending Provider Dr. Rock Dick Referring Provider Priscilla Arndt MD Primary Care Provider Lance Gillespie (Hist) Unavailable Priscilla Maurice MD Primary Care Provider Lance Gillespie (Hist) Unavailable Dr. Priscilla Maurice Primary Care Provider Dr. Jurgen Perez Emergency Provider Dr. Rex Bernard Admit Provider Dr. Rex Bernard Attending Provider Dr. Rex Bernard Other Provider Dr. Ines Hernandez Attending Provider Dr. Ines Hernandez Other Provider Dr. Pirscilla Arndt Primary Care Provider Dr. Priscilla Arndt Referring Provider Dr. Rock Dick Attending Provider Priscilla Perkins MD Primary Care Provider SUMI LOCKWOOD Attending Unavailable PRISCILLA PERKINS Referring Unavailable MANDIE SUMI Valladares Attending Unavailable Dr. Priscilla Arndt Primary Care Provider Dr. Priscilla Arndt Referring Provider Stone RESEARCH ASST, RESEARCH ASST-C Tammy Attending Provider Stone RESEARCH ASST, RESEARCH ASST-C Tammy Referring Provider Stone RESEARCH ASST, RESEARCH ASST-C Tammy Other Provider Dr. 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 Priscilla Arndt MD Primary Care Provider Dr. Priscilla Arndt MD Referring Provider Dr. Erick Hernández MD Attending Provider Chase RESEARCH ASST-C, Tammy Attending Provider Chase RESEARCH ASST-C, Tammy Referring Provider Chase RESEARCH ASST-C, Tammy Other Provider Dr. Rock Dick DO Attending Provider Dr. Erick Hernández MD Referring Provider Scarlett RESEARCH ASST-C, Nicki Wang Attending Provider Yanni ARBOLEDA, Miguel Ángel Emergency Provider Perla ARBOLEDA, Dr. Hyun Landeros Admit Provider Perla ARBOLEDA, Dr. Hyun Landeros Attending Provider Luis Enrique ARBOLEDA, Dr. Becerril Other Provider Betzy ARBOLEDA, Dr. Teran Other Provider Zach ARBOLEDA, Dr. Fairbanks Other Provider [phone] Rock Dick DO Other Provider Romero ARBOLEDA, Dr. Calvin Boyer Other Provider [phone] Araceli ARBOLEDA, Dr. Cortes Other Provider Keeley ARBOLEDA, Dr. Berry Other Provider Ryan ARBOLEDA, Dr. Chow Other Provider Naif ARBOLEDA, Dr. Caceres Other Provider Ramana ARBOLEDA, Dr. Conn Other Provider Ralph ARBOLEDA, Dr. Tilley Other Provider Bj ARBOLEDA, Dr. Grimm Other Provider Dimitri ARBOLEDA, Dr. Kaplan Other Provider Unavailabl malik Jimenez MD, Dr. Lewis Other Provider [phone] Elsi ARBOLEDA, Dr. Nickerson Other Provider Bianca ARBOLEDA, Dr. Dean Other Provider [phone] Miko ARBOLEDA, Dr. Diaz Other Provider Miguel Angel FISCHER, Dr. Tarango Other Provider [phone] Suzanne ARBOLEDA, Dr. Maldonado Other Provider [phone] Yolis ARBOLEDA, Dr. Sweet Other Provider Suni FISCHER, Dr. Martínez Other Provider Dion ARBOLEDA, Dr. Paul Other Provider Aidan ARBOLEDA, Dr. Sevilla Other Provider Al Conner MD Other Provider Unavailable Dr. Nael Grullon MD Other Provider Charissa Vickers MD Other Provider Unavailable Kong FISCHER, Dr. Franz Other Provider [phone] Yanci ARBOLEDA, Dr. Echevarria Other Provider Holly ARBOLEDA, Dr. Maria Other Provider [phone] Eloy ARBOLEDA, Dr. Carpenter Other Provider Zhang ARBOLEDA, Dr. Cerrato Other Provider Qasim ARBOLEDA, Dr. Goldberg Other Provider Conrad ARBOLEDA, Dr. Del Cid Other Provider [phone] Sofia Smith MD Other Provider Ranjeet ARBOLEDA, Dr. Cano Other Provider Adriano ARBOLEDA, Dr. Hair Other Provider Gwen ARBOLEDA, Dr. Sam Other Provider Vita ARBOLEDA, Dr. Otto Ayers Other Provider Durga ARBOLEDA, Dr. Matamoros Other Provider Nawaf ARBOLEDA, Dr. Guadarrama Other Provider Noelle ARBOLEDA, Dr. Arteaga Other Provider Addi ARBOLEDA, Dr. Carlson Other Provider Unavailable Cory ARBOLEDA, Kandi Other Provider Unavailable Tiffani ARBOLEDA, Dr. Wells Primary Care Provider Perla ARBOLEDA, Dr. Hyun Landeros Other Provider Nicki Waterman Attending Provider Scarlett HENRY-Nicki Fierro Referring Provider Dr. Priscilla Arndt MD Referring Provider [phone] GANTA, PRISCILLA Primary Care Unavailable GANTA, PRISCILLA Primary Care Unavailable GANTA, PRISCILLA Primary Care Unavailable JACKY FERRERA Referring Unavailable GANTA, PRISCILLA Primary Care Unavailable GANTA, PRISCILLA Primary Care Unavailable GANTA, PRISCILLA Primary Care Unavailable GANTA, PRISCILLA Primary Care Unavailable Ganta, Priscilla Primary Care Unavailable Johnny Xavier Attending Unavailrobert al Ganta, Priscilla Primary Care Unavailable Calvin Pedro Attending Unavailable Al Conner Consulting Unavailable Becky Thomas Admitting Unavailable Adeli, Amir Consulting Unavailable Hinduja, Charissa Consulting Unavailable Kong, Maria M Consulting Unavailable Zha, Swathi Consulting Unavailable Holly, Crow Consulting Unavailable Eoly, Pauline Consulting Unavailable Bittar, Saqib Consulting Unavailable [...] Consulting Unavailable Calvin Pedro Consulting Unavailable Chase RESEARCH ASST, Tammy Attending Unavailable [facility] Primary Care Unavailable Chase RESEARCH ASST, Tammy Referring Unavailable Becky Thomas Attending Unavailable Rock Dick Attending Unavailable Chase RESEARCH ASST, Tammy Referring Unavailable Chase RESEARCH ASST, Tammy Consulting Unavailable [facility] Primary Care Unavailable Koram, Hyun Leti Consulting Unavailable Koram, Hyun Leti Admitting Unavailable [facility] Primary Care Unavailable Koram, Hyun Leti Attending [...] Consulting Unavailable Hannawi, Yousef Consulting Unavailable Stone RESEARCH ASST, Tammy Referring Unavailable Stone RESEARCH ASST, Tammy Attending Unavailable [facility] Primary Care Unavailable Al Conner Consulting Unavailable [facility] Primary Care Unavailable Calvin Perdo Attending Unavailable William, Becky Admitting Unavailable Adeli, [...] Unavailable Koram, Hyun Leti Consulting Unavailable Stone RESEARCH ASST, Tammy Attending Unavailable Stone RESEARCH ASST, Tammy Referring Unavailable [facility] Primary [facility] Unavailable Stone RESEARCH ASST, Tammy Attending Unavailable [facility] Primary Care Unavailable Bevam, Hyun Leti Attending Unavailable Koram, Hyun Leti Admitting Unavailable [facility] Care Unavailable Jone Dudley Consulting Unavailable Jeffry [...] Consulting Unavailable Holly, Crow Consulting Unavailable Eloy, Paluine Consulting Unavailable Bittar, Saqib Consulting Unavailable Tripp, Eliud Consulting Unavailable Nehemias Martines Consulting Unavailable Sofia Smith Consulting Unavailable Jerome Pollack Consulting Unavailable Adriano, Laxmi Consulting Unavailable Ridha, Flaco Consulting Unavailable Zaghlouleh, Mhd Armen Consulting UnavailSaturnino Beth Consulting Unavailable Mccracken, Ramalejandro Consulting Unavailable Noelle, Chandler Consulting Unavailable Addi, Robyn Consulting Unavailable Hanandrés, Yousefranchesca Consulting Unavailable Nicki Pantoja Referring Unavailable Nicki Pantoja Attending Unavailable Ganta, Priscilla Primary Care Unavailable Ganta, Priscilla Primary Care Unavailable Hernández, Erick Attending Unavailable Hernández, Erick Referring Unavailable Ganta, Priscilla Primary Care Unavailable Ganta, Priscilla Referring Unavailable Hernández, Erick Attending Unavailable Ganta, Priscilla Primary Care Unavailable Ganta, Priscilla Referring Unavailable Nicki Pantoja Attending Unavailable Nicki Pantoja Attending Unavailable Ganta, Priscilla Referring Unavailable Ganta, Priscilla Primary Care Unavailable Ganta, Priscilla Primary Care Unavailable Ganta, Priscilla Referring Unavailable Hernández, Erick Attending Unavailable Chase RESEARCH ASST, Tammy Attending Unavailable Ganta, Priscilla Primary Care Unavailable Ganta, Priscilla Referring Unavailable Ganta , Dr. Wells Primary Care Provider Dr. Jarek Sullivan DO Emergency Provider [phone] Michael ARBOLEDA, Dr. Nettie Nixon Attending Provider Allergies Allergy Classification Reported Allergen(s) Allergy Type Date of Onset Reaction(s) Facility (16 sources) Dextromethorphan; Translations: [dextromethorphan HBr] Drug Allergy 2 tachycardia, feels anxious [facility] (20 sources) Doxylamine; Translations: [DOXYLAMINE] Drug Allergy 7 Other: See Comments [facility] Work Phone: (16 sources) Pseudoephedrine; Translations: [pseudoephedrine HCl] Drug Allergy 2 Tachycardia, feels anxious [facility] (20 sources) Sertraline; Translations: [SERTRALINE HCL] Drug Allergy 1 Diarrhea, GI Upset [facility] Work Phone: (20 sources) Acetaminophen / Dextromethorphan / Doxylamine / Pseudoephedrine; Translations: [GSRDDNYSJ-YQA-SI-AC ETAMINOPHEN] Drug Allergy 8 Intolerance [facility] Work Phone: (20 sources) Baclofen; Translations: [BACLOFEN] Drug Allergy 7 Other: See Comments [facility] Work Phone: [phone] (20 sources) Dextromethorphan; Translations: [DEXTROMETHORPHAN] Drug Allergy 7 Other: See Comments [facility] Work Phone: [phone] (20 sources) Pseudoephedrine; Translations: [PSEUDOEPHEDRINE] Drug Allergy 7 Other: See Comments [facility] Work Phone: [phone] (20 sources) Sertraline; Translations: [SERTRALINE] Drug Allergy 7 Diarrhea [facility] Work Phone: (20 sources) Ndglifa-Tx-Pj-Acetam inophen-Gg; Translations: [PTCYXUR-LM-UR-ACETA MINOPHEN-GG] Drug Allergy 7 Other: See Comments [facility] Work Phone: [phone] (1 source) Doxylamine Drug Allergy 5 [facility] Repository Medications Current Medications Medication Drug [...] Start: 08-28-2021 take 1 tablet by george th twice daily Amoxicillin-Pot Clavulanate Active 1 TABLET [...] on above: Take 2 tablets by mo [facility] once daily for 1 day, THEN 1 tablet once daily for 4 days. Disability Placard (5 sources) Start: 06-14-2024 Disability Placard Active 0 .ROUTE .MEDSUPPLY 1 0 June 14, 2024 1:00am chronic respiratory distress J96.10 expires 06/14/2029 Start: 06-14-2024 Disability Angelina card Active 0 .ROUTE .MEDSUPPLY 1 June 14, 2024 1:00am expires 06/14/2029 doxycycline hyclate 100 mg oral tablet (14 sources) Tetracycline-class Drug Start: 07-08-2024 End: 07-15-2024 [...] above: Take 1 tablet by george th twice daily for 5 days. 2 ml dupilumab 150 mg/ml auto-injector (4 sources) Interleukin-4 Receptor alpha Antagonist Start: 11-27-19 25 Dupilumab (Dupixent Pen) 300 mg/2 mL pen injector Active 300 mg SC every 2 weeks 4 November 26, 2024 12:00am Stage 4 very severe COPD by GOLD classification Eosinophilia Chronic obstructive pulmonary disease, unspecified Eosinophilia, unspecified fluticasone propionate 0.05 mg/actuat metered dose nasal spray (10 sources) Corticosteroid Start: 06-14-20 take 2 spray(s) nasal route once daily fluticasone (FLONASE) 50 mcg/actuation nasal spray Use 2 Sprays in each nostril once daily. 06/14/2024 Active Start: 06-14-2024 Fluticasone Pr opionate 50 mcg/actuation spray,suspension Active 2 NMA INTRANASAL DAILY 16 June 14, 2024 1:00am Asthma Unspecified asthma, uncomplicated Ambnduyupby-Uaxyifser-Pxzbwf er (20 sources) Start: 09-22-2024 Arjcswafalw-Oqhxueuym-Dmrfqt er (Trelegy Ellipta) 200-62.5-25 mcg blister with device Active 1 NMA INHALATION DAILY 60 September 22, 2024 1:23pm Start: 09-22-2024 Fluticasone-Um eclidin-Vilanter (Trelegy Ellipta) 200-62.5-25 mcg blister with device Active 1 NMA INHALATION DAILY 60 September 22, 2024 1:23pm Start: 04-15-2024 End: 09-22-2024 Xnlrshpobgp-Igzmhltzn-Gwsmjv er (Trelegy Ellipta) 200-62.5-25 mcg blister with device Discontinued 1 NMA INHALATION DAILY 60 April 15, 2024 10:32am September 22, 2024 1:24pm Start: 04-15-2024 End: 09-22-2024 Edcktbvaxot-Hnlcbxjzw-Piowxy er (Trelegy Ellipta) 200-62.5-25 mcg blister with device Discontinued 1 NMA INHALATION DAILY April 15, 2024 10:32am September 22, 2024 1:24pm Start: 04-15-2024 Fluticasone-Um eclidin-Vilanter (Trelegy Ellipta) 200-62.5-25 mcg blister with device Active 1 NMA INHALATION DAILY 60 April 15, 2024 10:32am Start: 09-24-2023 End: 04-15-2024 Apoxywgseub-Yzixzyugv-Srotfg er (Trelegy Ellipta) 200-62.5-25 mcg blister with device Discontinued 1 NMA INHALATION DAILY 60 September 24, 2023 2:40pm April 15, 2024 10:33am Start: 09-24-2023 End: 04-15-2024 Cngqeawglpm-Sijlxtvum-Annhbx er (Trelegy Ellipta) 200-62.5-25 mcg blister with device Discontinued 1 NMA INHALATION DAILY 60 September 24, 2023 2:40pm April 15, 2024 10:33am Start: 09-24-2023 Fluticasone-Um eclidin-Vilanter (Trelegy Ellipta) 200-62.5-25 mcg blister with device Active 1 INH INHALATION DAILY 60 September 24, 2023 2:40pm Start: 09-10-2022 End: 09-24-2023 Ayafkwmjqod-Lirzwrbtk-Pmrzpb er (Trelegy Ellipta) 200-62.5-25 mcg blister with device Discontinued 1 NMA INHALATION DAILY 60 September 10, 2022 12:00am September 24, 2023 2:40pm Start: 09-10-2022 End: 09-24-2023 Krixsaulhvs-Zasjerbeq-Chvczg er (Trelegy Ellipta) 200-62.5-25 mcg blister with device Discontinued 1 NMA INHALATION DAILY September 10, 2022 12:00am September 24, 2023 2:40pm Start: 09-10-2022 End: 09-24-2023 Eoeirtdgshd-Zvoxalhmp-Hoeklu er (Trelegy Ellipta) 200-62.5-25 mcg blister with device Discontinued 1 INH INHALATION DAILY September 10, 2022 12:00am September 24, 2023 2:40pm Start: 09-10-2022 Fluticasone-Um eclidin-Vilanter (Trelegy Ellipta) 200-62.5-25 mcg blister with device Active 1 INH INHALATION DAILY 60 September 09, 2022 11:00pm Start: 09-10-2022 Fluticasone-Um eclidin-Vilanter (Trelegy Ellipta) 200-62.5-25 mcg blister with device Active 1 INH INHALATION DAILY 60 September 103 12:00am Start: 05-18-2022 End: 09-24-2023 Msxdhoxxcit-Wfcehtuuc-Oqgysw er (Trelegy Ellipta) 200-62.5-25 mcg blister with device Discontinued 1 NMA INHALATION DAILY May 18, 2022 1:48am September 24, 2023 2:28pm Check with primary doctor Start: 05-18-2022 End: 09-24-2023 Snzfrzyohqj-Opiuzyuhk-Dvgbtr er (Trelegy Ellipta) 200-62.5-25 mcg blister with device Discontinued 1 NMA INHALATION DAILY May 18, 2022 1:48am September 24, 2023 2:28pm Start: 05-18-2022 End: 09-24-2023 Pnvzsnabnmf-Zktjpcwuc-Qfabsn er (Trelegy Ellipta) 200-62.5-25 mcg blister with [...] with device Active 1 INH INHALATION DAILY September 25, 2021 10:03am Start: 09-25-2021 End: 05-18-2022 Cgbxruyqlbh-Vffatrljb-Knvcmy er (Trelegy Ellipta) 200-62.5-25 mcg blister with device Discontinued 1 NMA INHALATION DAILY 60 September 25, 2021 12:00am May 18, 2022 1:49am Start: 09-25-2021 End: 05-18-2022 Vhqcxxwwhgb-Awoxczjrz-Qbzgxb er (Trelegy Ellipta) 200-62.5-25 mcg blister with device Discontinued 1 NMA INHALATION DAILY 60 September 25, 2021 12:00am May 18, 2022 1:49am Start: 09-25-2021 End: 05-18-2022 Shuwuczsgzy-Doflswmdx-Xtuszi er (Trelegy Ellipta) 200-62.5-25 mcg blister with device Discontinued 1 INH INHALATION DAILY 60 September 25, 2021 12:00am May 18, 2022 1:49am Start: 09-25-2021 End: 05-18-2022 Bghupfadczl-Dzbxfscyq-Xmcxip er (Trelegy Ellipta) 200-62.5-25 mcg blister with [...] tablet 600 mg three times daily. from [facility] 06/12/2017 10/15/2023 Discontinued Start: 06-12-2017 End: 10-15-2023 gabapentin (NEURONTIN) 800 m g tablet 600 mg three times daily. from [facility] 0 06/12/2017 10/15/2023 Discontinued Start: 04-14-2017 End: 03-30-2019 take 1 tablet by mouth four times daily Gabapentin 800 MG tablet Discontinued 800 mg PO 4 TIMES DAILY April 14, 2017 12:00am March 30, 2019 2:29pm Headaches/Neck Comment on above: 600 mg three times d aily. from [facility] levETIRAcetam 500 mg oral tablet (20 sources) Start: 0 End: 5 take 1 tablet by mouth once daily [...] 2020 2:19am Comment on above: twice daily. Humaqkcy-Hzj-Ie-Lyco pen-Lutein (5 sources) Start: 06-30-2019 take 1 tablet by mouth once daily Lfkimsnp-Hqz-Bo-Lyco pen-Lutein Active 1 TABLET PO DAILY June 30, 2019 3:14pm Start: 06-30-2019 take 1 tablet by george th once daily Yojrlsrj-Uls-Cs-Lycopen-Lutein Active 1 TABLET PO DAILY June 30, 2019 12:00am Start: 06-30-2019 take 1 tablet by george th once daily Pdtzezaq-Vgw-Yz-Lycopen-Lutein Active 1 TABLET PO DAILY June 30, [...] 1 tablet by george th once daily. Nj-Snq-Sxxcy-K1-Lyc open-Lutein (5 sources) Start: 06-30-2019 take 1 tablet by mouth once daily St-Kje-Qhuch-K1-Ly copen-Lutein Active 1 TABLET PO DAILY June 30, 2019 12:00am Start: 06-30-2019 take 1 tablet by george th once daily Qr-Uiz-Trbbg-N7-Jmekhkw-Vtcuvx Active 1 TABLET PO DAILY June 30, 2019 1:00am Nicotine (17 sources) Cholinergic Nicotinic Agonist Start: 09-25-2021 apply [...] Comment on above: Take 1 capsule by [facility] daily before breakfast. 1/2 hr before meal. polymyxin b 22962 unt/ml / trimethoprim 1 mg/ml ophthalmic solution [...] tablet Disc ontinued 10 mg PO daily 30 October 06, 2023 12:00am November 25, 2023 [...] mg tablet Discontinued 40 mg PO DAILY 14 August 21, 2021 1:00am August 28, 2021 3:03pm Start: 08-21-2021 End: 08-28-2021 take 40 mg by mouth once daily Prednisone Discontinued 40 MG PO DAILY August 21, 2021 1:00am August 28, 2021 3:03pm Start: 08-24-2019 End: 09-05-2019 Prednisone 10 MG tablet Disc ontinued 10 mg PO DAILY 30 12 August 24, 2019 12:00am September 04, 2019 12:00am September 05, 2019 12:08am take 4 tabs x 3 days then 3 tabs x 3 days then 2 tabs x 3 days then 1 tab daily Start: 04-20-2018 End: 05-14-2018 Prednisone 10 mg tablet Disc ontinued 10 mg PO daily 30 April 20, 2018 1:00am May 14, 2018 [...] Comment on above: Take 2 tablets by [facility] once daily for 5 days. sulfamethoxazole 800 [...] May 18, 2022 1:49am Start: 07-02-2019 End: 05-18-2022 take 750 mg by mouth twice daily [...] 13, 2017 11:56am take 3 tablets by [facility] in the morning divalproex (Depakote) 250 MG EC tablet Take 750 mg by mouth in the morning and 750 mg before bedtime. Do not crush, chew, or split. . 0 Active Comment on above: Take 1 tablet by twice daily. Completed/Discontinued Medications Medication Drug Class(es) [...] by mouth every six hours as needed Jbwwivj-Mgiovesmvpmbf-Lpylksqp 250-250-65 mg per tablet Take 6 tablets by mouth every 6 hours as needed. 10/15/2023 Discontinued (Discontinued by Patient) Comment on above: Take 6 tablets by mouth every 6 hours as needed. [id number] 200 actuat albuterol 0.09 mg/actuat metered dose [...] for shortness of breath or wheezing 8.5 11 April 15, 2024 10:32am July 27, 2024 [...] HOURS NEEDED as needed for sob/wheezing 1 0 April 04, 2018 9:45am October 29, 2018 [...] Albuterol Sulfate 90 mcg/actuation HFA aerosol inhaler (5 sources) Start: 10-29-2018 End: 02-04-2019 Albuterol Sulfate 90 mcg/actuation HFA aerosol inhaler Discontinued 2 NMA INHALATION EVERY 4 HOURS NEEDED as needed for sob/wheezing 1 October 29, 2018 8:35am February 04, 2019 10:48am Start: 10-29-2018 End: 02-04-2019 Albuterol Sulfate 90 mcg/act uation HFA aerosol inhaler Discontinued 2 NMA INHALATION EVERY 4 HOURS NEEDED as needed for sob/wheezing October 29, 2018 8:35am February 04, 2019 10:48am amitriptyline hydrochloride 100 mg oral tablet (20 sources) Tricyclic Antidepressant Start: 01-13-2019 End: 04-15-2025 take 1 tablet by mouth at bedtime Amitriptyline 100 MG tablet Discontinued 100 mg PO AT BEDTIME June 30, 2019 1:00am July 27, 2024 1:56pm sleep Comment on above: Take 1 tablet by george th daily at bedtime. aspirin 81 mg [...] mg by mouth once daily. Fluticasone Propion-Salmeterol (15 sources) Corticosteroid, beta2-Adrenergic Agonist Start: 12-05-2016 End: [...] 05, 2016 12:00am August 19, 2017 4:37pm Hucnaiejrla-Cxcrtixkr-Oodyzm er (20 sources) Anticholinergic, Corticosteroid, beta2-Adrenergic Agonist Start: 03-12-2021 End: 09-25-2021 Pncashukmgb-Limhajrbe-Keengf er (Trelegy Ellipta) 100-62.5-25 mcg blister with device Discontinued 1 NMA INHALATION daily 60 6 March 12, 2021 11:02am September 25, 2021 10:03am Chronic obstructive pulmonary disease, unspecified administer at approximately the same time(s) each day Start: 03-12-2021 End: 09-25-2021 Mufwiofsxjs-Leemirssg-Smnqic er (Trelegy Ellipta) 100-62.5-25 mcg blister with device Discontinued 1 NMA INHALATION daily 60 March 12, 2021 11:02am September 25, 2021 10:03am administer at approximately the same time(s) each day Start: 03-12-2021 End: 09-25-2021 Qbofkwqsbny-Wjpnaqdlt-Ensfsy er (Trelegy Ellipta) 100-62.5-25 mcg blister with device Discontinued 1 INH INHALATION daily 60 March 12, 2021 10:02am September 25, 2021 9:03am administer at approximately the same time(s) each day Start: 03-12-2021 End: 09-25-2021 Sckszbubbti-Srbclrpoq-Yvqqxn er (Trelegy Ellipta) 100-62.5-25 mcg blister with device Discontinued 1 INH INHALATION daily 60 March 12, 2021 11:02am September 25, 2021 10:03am administer at approximately the same time(s) each day Start: 03-09-2021 take 1 puff(s) by inhalation once daily dehsyajjmad-brnvxjuhn-fqzloswg (TRELEGY ELLIPTA) 100-62.5-25 mcg Inhale 1 Puff as instructed once daily. 1 Each 03/09/2021 Active Start: 07-05-2020 End: 03-12-2021 Bhoiwmmibbm-Arezugydx-Rykthf er (Trelegy Ellipta) 100-62.5-25 mcg blister with device Discontinued 1 NMA INHALATION daily 60 July 05, 2020 11:33am March 12, 2021 11:03am Chronic obstructive pulmonary disease, unspecified administer at approximately the same time(s) each day Start: 07-05-2020 End: 03-12-2021 Ouxdnnkfknc-Lzpwynhty-Kcrqlv er (Trelegy Ellipta) 100-62.5-25 mcg blister with device Discontinued 1 NMA INHALATION daily 60 July 05, 2020 11:33am March 12, 2021 11:03am administer at approximately the same time(s) each day Start: 07-05-2020 End: 03-12-2021 Tezjbuoerpl-Nqwuuevld-Pquqcj er (Trelegy Ellipta) 100-62.5-25 mcg blister with device Discontinued 1 INH INHALATION daily July 05, 2020 10:33am March 12, 2021 10:03am administer at approximately the same time(s) each day Start: 07-05-2020 End: 03-12-2021 Iibfzrujjjd-Wvnleaget-Ljeisv er (Trelegy Ellipta) 100-62.5-25 mcg blister with device Discontinued 1 INH INHALATION daily 60 July 05, 2020 11:33am March 12, 2021 11:03am administer at approximately the same time(s) each day Start: 12-22-2019 End: 07-05-2020 Qqwoidzzfdy-Ntbrbqbja-Uyrtsa er (Trelegy Ellipta) 100-62.5-25 mcg blister with device Discontinued 1 NMA INHALATION daily 60 6 December 22, 2019 9:36am July 05, 2020 11:36am Chronic obstructive pulmonary disease, unspecified administer at approximately the same time(s) each day Start: 12-22-2019 End: 07-05-2020 Ellfxijxvfz-Lffaialre-Eewsjt er (Trelegy Ellipta) 100-62.5-25 mcg blister with device Discontinued 1 NMA INHALATION daily 60 December 22, 2019 9:36am July 05, 2020 11:36am administer at approximately the same time(s) each day Start: 12-22-2019 End: 07-05-2020 Qzmwajdpfoo-Ucedbxkkz-Buzzfb er (Trelegy Ellipta) 100-62.5-25 mcg blister with device Discontinued 1 INH INHALATION daily 60 December 22, 2019 8:36am July 05, 2020 10:36am administer at approximately the same time(s) each day Start: 12-22-2019 End: 07-05-2020 Hspatzbezqr-Lsixkwglb-Euppns er (Trelegy Ellipta) 100-62.5-25 mcg blister with device Discontinued 1 INH INHALATION daily 60 December 22, 2019 9:36am July 05, 2020 11:36am administer at approximately the same time(s) each day Start: 09-06-2019 End: 12-22-2019 Ugwenwkykoe-Eyyxiccpy-Mumgsq er (Trelegy Ellipta) 100-62.5-25 mcg blister with device Discontinued 1 INH INHALATION daily 60 September 06, 2019 9:53am December 22, 2019 9:39am administer at approximately the same time(s) each day Start: 09-06-2019 End: 12-22-2019 Dhtsazaejdm-Eqbangixn-Bselwb er (Trelegy Ellipta) 100-62.5-25 mcg blister with device Discontinued 1 NMA INHALATION daily 60 3 September 06, 2019 12:00am December 22, 2019 9:39am Chronic obstructive pulmonary disease, unspecified administer at approximately the same time(s) each day Start: 09-06-2019 End: 12-22-2019 Zduiahabsfa-Akbixlisp-Scyaoe er (Trelegy Ellipta) 100-62.5-25 mcg blister with device Discontinued 1 NMA INHALATION daily 60 September 06, 2019 12:00am December 22, 2019 9:39am administer at approximately the same time(s) each day Start: 09-06-2019 End: 12-22-2019 Yktuwotwvsl-Ufttmqngo-Zvhxgy er (Trelegy Ellipta) 100-62.5-25 mcg blister with device Discontinued 1 INH INHALATION daily 60 September 05, 2019 11:00pm December 22, 2019 8:39am administer at approximately the same time(s) each day Start: 09-06-2019 End: 12-22-2019 Tpriuzxzxtm-Kjnfppobm-Lkrgni er (Trelegy Ellipta) 100-62.5-25 mcg blister with device Discontinued 1 INH INHALATION daily 60 September 06, 2019 12:00am December 22, 2019 9:39am administer at approximately the same time(s) each day Start: 06-07-2019 End: 06-14-2019 Qefdnfqrkna-Uyevbwfju-Ehwzlt er (Trelegy Ellipta) 100-62.5-25 mcg blister with device Discontinued 1 NMA INHALATION daily 3 June 07, 2019 4:51pm June 14, 2019 11:08am Chronic obstructive pulmonary disease, unspecified administer at approximately the same time(s) each day Start: 06-07-2019 End: 06-14-2019 Uevhzcaelht-Nupdpvjjh-Ujokno er (Trelegy Ellipta) 100-62.5-25 mcg blister with device Discontinued 1 NMA INHALATION daily June 07, 2019 4:51pm June 14, 2019 11:08am administer at approximately the same time(s) each day Start: 06-07-2019 End: 06-14-2019 Swzdyahumvi-Orfcdbuph-Djaufl er (Trelegy Ellipta) 100-62.5-25 mcg blister with device Discontinued 1 INH INHALATION daily June 07, 2019 3:51pm June 14, 2019 10:08am administer at approximately the same time(s) each day Start: 06-07-2019 End: 06-14-2019 Qzzzozwmnrm-Yrcykksnf-Frvira er (Trelegy Ellipta) 100-62.5-25 mcg blister with device Discontinued 1 INH INHALATION daily June 07, 2019 4:51pm June 14, 2019 11:08am administer at approximately the same time(s) each day Start: 04-20-2018 End: 06-07-2019 Emxsvpcwdtc-Hjyuhgkej-Kcnyap er (Trelegy Ellipta) 100-62.5-25 mcg blister with device Discontinued 1 NMA INHALATION daily 3 April 20, 2018 2:04pm June 07, 2019 4:52pm Chronic obstructive pulmonary disease, unspecified administer at approximately the same time(s) each day Start: 04-20-2018 End: 06-07-2019 Txsfdmpbwzv-Lyaniohuc-Drmclr er (Trelegy Ellipta) 100-62.5-25 mcg blister with device Discontinued 1 NMA INHALATION daily April 20, 2018 2:04pm June 07, 2019 4:52pm administer at approximately the same time(s) each day Start: 04-20-2018 End: 06-07-2019 Dmgnsuvmxhz-Gjrbouodu-Kdstbz er (Trelegy Ellipta) 100-62.5-25 mcg blister with device Discontinued 1 INH INHALATION daily April 20, 2018 1:04pm June 07, 2019 3:52pm administer at approximately the same time(s) each day Start: 04-20-2018 End: 06-07-2019 Csateauizus-Zfrkixmms-Tjyafn er (Trelegy Ellipta) 100-62.5-25 mcg blister with device Discontinued 1 INH INHALATION daily April 20, 2018 2:04pm June 07, 2019 4:52pm administer at approximately the same time(s) each day Start: 02-03-2018 End: 04-20-2018 Tybcckqlduw-Ubnftkens-Ntxvdj er (Trelegy Ellipta) 100-62.5-25 mcg blister with device Discontinued 1 NMA INHALATION daily 3 February 03, 2018 10:49am April 20, 2018 2:04pm Chronic obstructive pulmonary disease, unspecified administer at approximately the same time(s) each day Start: 02-03-2018 End: 04-20-2018 Crcvjbawqot-Ssxctbjpo-Uqgmpn er (Trelegy Ellipta) 100-62.5-25 mcg blister with device Discontinued 1 NMA INHALATION daily February 03, 2018 10:49am April 20, 2018 2:04pm administer at approximately the same time(s) each day Start: 02-03-2018 End: 04-20-2018 Tzmeehfxlgt-Jlgdcqrfo-Xbuokr er (Trelegy Ellipta) 100-62.5-25 mcg blister with device Discontinued 1 INH INHALATION daily February 03, 2018 9:49am April 20, 2018 1:04pm administer at approximately the same time(s) each day Start: 02-03-2018 End: 04-20-2018 Jxvekgfnqdd-Afmfurafw-Ivhkhh er (Trelegy Ellipta) 100-62.5-25 mcg blister with device Discontinued 1 INH INHALATION daily February 03, 2018 10:49am April 20, 2018 2:04pm administer at approximately the same time(s) each day Start: 07-28-2017 End: 02-03-2018 Mfhlznlbaag-Hzaqjtblg-Yclsqs er (Trelegy Ellipta) 100-62.5-25 mcg blister with device Discontinued 1 INH INHALATION daily July 28, 2017 1:13pm February 03, 2018 10:49am administer at approximately the same time(s) each day Start: 07-28-2017 End: 02-03-2018 Oqjzorgeoxv-Bppijpwms-Cbiagw er (Trelegy Ellipta) 100-62.5-25 mcg blister with device Discontinued 1 NMA INHALATION daily 3 July 28, 2017 1:00am February 03, 2018 10:49am Chronic obstructive pulmonary disease, unspecified administer at approximately the same time(s) each day Start: 07-28-2017 End: 02-03-2018 Yavmxkcfthr-Mgmpphpve-Ogrutz er (Trelegy Ellipta) 100-62.5-25 mcg blister with device Discontinued 1 NMA INHALATION daily July 28, 2017 1:00am February 03, 2018 10:49am administer at approximately the same time(s) each day Start: 07-28-2017 End: 02-03-2018 Vylplutgrqx-Femnyjjyl-Ybiqhb er (Trelegy Ellipta) 100-62.5-25 mcg blister with device Discontinued 1 INH INHALATION daily 3 July 28, 2017 12:00am February 03, 2018 9:49am administer at approximately the same time(s) each day Start: 07-28-2017 End: 02-03-2018 Noxjgdpqpzx-Ytsziejxf-Pvfirk er (Trelegy Ellipta) 100-62.5-25 mcg blister with device Discontinued 1 INH INHALATION daily 3 July 28, 2017 1:00am February 03, 2018 10:49am administer at approximately the same time(s) each day Comment on above: Inhale 1 Puff as ins tructed once daily. Fluticasone Furoate-Vilanterol (15 sources) Corticosteroid, beta2-Adrenergic Agonist Start: 06-30-2019 End: [...] 30, 2019 1:00am September 06, 2019 9:53am 12 hr guaiFENesin 1200 mg extended release oral tablet (20 sources) Start: 06-14-2024 End: 01-23-2025 take 1 tablet by mouth every twelve hours as needed for cough Guaifenesin 1,200 mg tablet extended release 12hr Discontinued 1200 mg PO Q12H as needed for cough August 27, 2024 12:00am January 23, 2025 1:44am Start: 04-04-2018 End: 05-14-2018 take 1 tablet by mouth twice daily Guaifenesin 1,200 MG tablet Discontinued 1200 mg PO TWICE A DAY 14 0 April 04, 2018 12:00am May 14, 2018 1:53pm hydrOXYzine hydrochloride 25 mg oral tablet (3 [...] 6 hours as needed for anxiety (anxiety/insomnia). ibuprofen 200 mg oral tablet (20 sources) Nonsteroidal Anti-inflammatory Drug Start: 03-28-2024 End: 01-23-2025 Ibuprofen (Addaprin) 200 mg tablet Discontinued 400 mg PO Q8H as needed for pain March 28, 2024 12:00am January 23, 2025 1:44am Start: 10-15-2023 take 2 tablets by mo prh every six hours as needed ibuprofen (MOTRIN) 200 mg tablet Take 2 tablets by mouth every 6 hours as needed for pain (Take with food.). 10/15/2023 Active Ipratropium [place] 42 mcg ( 0.06 %) spray,non-aerosol (5 sources) Start: 07-27-2024 End: 01-23-2025 Ipratropium [place] 42 mcg (0.06 %) spray,non-aerosol Discontinued 2 NMA INTRANASAL THREE TIMES A DAY 15 July 27, 2024 1:00am January 23, 2025 1:44am administer into each nostril Start: 07-27-2024 Ipratropium Br omide 42 mcg (0.06 %) spray,non-aerosol Active 2 NMA INTRANASAL THREE TIMES A DAY 15 July 27, 2024 1:00am administer into each nostril Start: 07-27-2024 Ipratropium Br omide 42 mcg (0.06 %) spray,non-aerosol Active 2 NMA INTRANASAL THREE TIMES A DAY July 27, 2024 1:00am administer into each nostril levoFLOXacin 500 mg oral tablet (20 sources) [...] Discontinued 750 mg PO DAILY 5 5 August 24, 2019 12:00am August 28, 2019 12:00am August 29, 2019 12:08am Start: 06-04-2019 End: 06-10-2019 take 1 tablet by mouth once daily Levofloxacin 500 MG tablet Discontinued 500 mg PO DAILY 6 June 04, 2019 1:00am June 09, [...] application to affected area three times daily. Wg-Gvo-Lgxoy-K1-Lycope n-Lutein 1 EACH tablet (5 sources) Start: 06-30-19 End: 03-28-20 take 1 tablet by mouth once daily If-Pde-Bisuc-K1-Lycop en-Lutein 1 EACH tablet Discontinued 1 {tbl} PO DAILY June 30, 2019 1:00am March 28, 2024 5:18pm supplement Start: 06-30-2019 End: 03-28-2024 take 1 tablet by mouth once daily Xr-Kvs-Lvpkg-W0-Qkpfeaq-Htfeqv 1 EACH ta blet Discontinued 1 {tbl} PO DAILY June 30, 2019 1:00am March 28, 2024 5:18pm naproxen 500 mg oral tablet (14 sources) Nonsteroidal Anti-inflammatory Drug Start: 03-10-2022 End: [...] Take 1 tablet by george once daily. QUEtiapine 200 mg oral tablet [...] 2019 10:46am raNITIdine 150 mg oral tablet (15 sources) Histamine-2 Receptor Antagonist Start: 12-05-2016 End: 08-19-2017 take 1 tablet by mouth at bedtime Ranitidine Hcl 150 MG tablet Discontinued 150 mg PO AT BEDTIME December 05, 2016 12:00am August 19, 2017 4:36pm ACID REFLUX sertraline 50 mg oral tablet (20 sources) Serotonin Reuptake Inhibitor Start: 06-30-2019 End: 03-28-2024 take 1 tablet [...] as needed. topiramate 25 mg oral tablet (15 sources) Start: 03-17-2019 End: 03-30-2019 Topiramate 25 [...] pain, unspecified] 03-05-2023 Episodic Acute cerebrovascular disease (6 sources) Cerebrovascular accident; Translations: [Cerebral infarction, unspecified] [...] asthma, uncomplicated; Translations: [Unspecified asthma, uncomplicated] Onset: 4 Chronic Chronic obstructive pulmonary disease and bronchiectasis (20 sources) Acute exacerbation of chronic obstructive airways disease; Translations: [Chronic obstructive pulmonary disease with (acute) exacerbation] Onset: 4 Chronic Comment on above: FEV1 32% of predicte d Diseases of white blood cells (4 sources) Eosinophil count raised; Translations: [Eosinophilia] 11-26-2024 Chronic Epilepsy; convulsions (20 sources) Seizure disorder; Translations: [Epilepsy, unspecified, not intractable, without status epilepticus] Onset: 3 03-23-2013 Chronic Epilepsy; convulsions (18 sources) Seizure; Translations: [Unspecified convulsions] 08-23-2019 Episodic Esophageal disorders (15 sources) Gastroesophageal reflux disease; Translations: [Gastro-esophageal reflux disease without esophagitis] 04-03-2018 Chronic Fever of unknown origin (1 source) Fever; Translations: [Fever, unspecified] 05-17-2022 Episodic Genitourinary symptoms and ill-defined conditions (2 sources) Scalding pain on urination ; Translations: [Dysuria] 09-20-2024 Episodic Headache; including migraine (19 sources) Migraine; Translations: [Migraine, unspecified, not intractable, [...] 7 03-02-2008 Chronic Open wounds of extremities (9 sources) Laceration of right thumb; Translations: [Laceration without foreign body of right thumb without damage to nail, initial encounter] 04-28-2023 Episodic Other aftercare (1 source) Patient encounter status; Translations: [Other terminal clerk (current) drug therapy] 02-24-2024 Episodic Other and ill-defined heart disease (15 sources) Diastolic dysfunction; Translations: [Other ill-defined heart diseases] 04-03-2018 Chronic Other connective tissue disease (15 sources) Lateral epicondylitis of bilateral humerus; Translations: [Lateral epicondylitis, right elbow] 04-03-2018 Episodic Other connective tissue disease (1 source) Muscle weakness of upper limb; Translations: [Other symptoms and signs involving the musculoskeletal system] 03-28-2024 Episodic Other gastrointestinal disorders (16 sources) Diarrhea; Translations: [Diarrhea, unspecified] 04-03-2018 Episodic Other injuries and conditions due to external causes (15 sources) Systemic inflammatory response syndrome; Translations: [Systemic inflammatory response syndrome (SIRS) of non-infectious origin without acute organ dysfunction] 06-05-2019 Episodic Other injuries and conditions due to external causes (15 sources) Injury of head; Translations: [Unspecified injury of head, initial encounter] 03-18-2019 Episodic Other injuries and conditions due to external causes (15 sources) Injury of left ankle; Translations: [Unspecified injury of left ankle, initial encounter] 08-23-2019 Episodic Other injuries and conditions due to external causes (8 sources) Closed injury of head; Translations: [Unspecified injury of head, initial encounter] 08-27-2024 Episodic Other lower respiratory disease (17 sources) Dyspnea; Translations: [Shortness of breath] 04-03-2018 Episodic Other lower respiratory disease (15 sources) Nodule of lung; Translations: [Solitary pulmonary nodule] 04-03-2018 Episodic Other lower respiratory disease (15 sources) Lung mass; Translations: [Other nonspecific abnormal finding of lung field] 04-28-2020 Episodic Other lower respiratory disease (2 sources) Cough; Translations: [Subacute cough] 07-08-2024 Episodic Other lower respiratory disease (1 source) Shortness of breath; Translations: [Shortness of breath] Onset: 5 Episodic Other nervous system disorders (17 sources) Disorder of brain; Translations: [Encephalopathy, unspecified] 04-03-2018 Chronic Other nervous system disorders (6 sources) Cervical myelopathy; Translations: [Disease of spinal cord, unspecified] 05-28-2024 Chronic Other nervous system disorders (8 sources) Unresponsive ; Translations: [Other symptoms and signs involving cognitive functions and awareness] 08-27-2024 Episodic Other nervous system disorders (5 sources) Single limb ataxia; Translations: [Ataxia, unspecified] 03-28-2024 Episodic Other nervous system disorders (5 sources) Paresthesia of right lower limb; Translations: [Paresthesia of skin] 03-28-2024 Episodic Other nervous system disorders (5 sources) Paresthesia of right upper limb; Translations: [Paresthesia of skin] 03-28-2024 Episodic Other nutritional; endocrine; and metabolic disorders (15 sources) Hyperammonemia; Translations: [Disorder of urea cycle metabolism, unspecified] 08-23-2019 Chronic Other nutritional; endocrine; and metabolic disorders (1 source) Unintentional weight loss; Translations: [Abnormal weight loss] 10-15-2023 Episodic Other nutritional; endocrine; and metabolic disorders (1 source) Weight loss; Translations: [Abnormal weight loss] 02-22-2024 Episodic Other upper respiratory disease (15 sources) Hoarse; Translations: [Dysphonia] 04-03-2018 Episodic Other upper respiratory infections (4 sources) Chronic sinusitis; Translations: [Chronic sinusitis, unspecified] Chronic Pneumonia (except that caused by tuberculosis or sexually transmitted disease) (20 sources) Pneumonia; Translations: [Pneumonia, unspecified organism] Onset: 7 10-14-2016 Episodic Residual codes; unclassified (15 sources) Finding related to sleep; Translations: [Sleep apnea, unspecified] 04-03-2018 Chronic Residual codes; unclassified (20 sources) Obstructive sleep apnea syndrome; Translations: [Obstructive sleep apnea (adult) (pediatric)] 04-03-2018 Chronic Comment on above: CPAP 11 cm of water Residual codes; unclassified (1 source) Obstructive sleep apnea (adult) (pediatric); Translations: [Obstructive sleep apnea (adult) (pediatric)] Onset: 5 Chronic Residual codes; unclassified (15 sources) Tobacco user; Translations: [Tobacco use] 08-21-2021 Episodic Residual codes; unclassified (15 sources) History of hernia repair; Translations: [Other specified postprocedural states] 04-03-2018 Episodic Residual codes; unclassified (20 sources) Altered mental status; Translations: [Altered mental status, unspecified] 03-18-2019 Episodic Residual codes; unclassified (9 sources) Diphtheria, tetanus and acellular pertussis vaccination [...] Test Name Value Interpretation Reference Range Facility Absolute lymphocyte countOrd ered By: Jarek Sullivan on 01-22-2025 Lymphocytes Auto (Unsp spec) [#/Vol] 2.34 10*3/uL 0.83-4.51 [facility] Absolute neutrophil countOrd ered By: Jarek Sullivan on 01-22-2025 Neutrophils (Bld) [#/Vol] 6.6 10*3/uL 2.0-7.7 [facility] Amphetamine detection with 1 000 ng/mL as cutoffOrdered By: Jarek Sullivan on 01-22-2025 Amphetamines Screen method >1000 ng/mL Ql (U) Negative < 200 ng/mL [facility] Anion gap in Serum or Plasma Ordered By: Jarek Sullivan on 01-22-2025 Anion gap [Moles/Vol] 11 mmol/L 5-15 [facility] Automated lymphocyte count a s percentage of total leukocytesOrdered By: Jarek Sullivan on 01-22-2025 Lymphocytes/100 WBC Auto (Unsp spec) 24.6 % 19-41 [facility] BUN/creatinine ratioOrdered By: Jarek Sullivan on 01-22-2025 Urea nitrogen/Creatinine [Mass ratio] 22.2 mg/mg High 10-20 [facility] Basophil percentageOrdered B y: Jarek Sullivan on 01-22-2025 Basophils/100 WBC (Bld) 0.5 % 0-1 [facility] Bilirubin directOrdered By: Jarek Sullivan on 01-22-2025 Bilirubin.direct [Mass/Vol] 0.19 mg/dL 0.00-0.30 [facility] Bilirubin, totalOrdered By: Jarek Sullivan on 01-22-2025 Bilirubin [Mass/Vol] 0.43 mg/dL 0.00-1.30 [facility] CO2 (BldV) [Moles/Vol]Ordere d By: Jarek Sullivan on 01-22-2025 CO2 [Moles/Vol] 36 mmol/L High 23-33 [facility] Carbon dioxide, total [Moles /volume] in Central venous bloodOrdered By: Jarek Sullivan on 01-22-2025 CO2 [Moles/Vol] 28.6 mmol/L 21.0-32.0 [facility] Chloride assayOrdered By: Annia Sullivan on 01-22-2025 Chloride [Moles/Vol] 99 mmol/L 98-108 [facility] Eosinophil percentageOrdered By: Jarek Sullivan on 01-22-2025 Eosinophils/100 WBC (Bld) 0.2 % 0-5 [facility] Erythrocyte distribution wid th ratioOrdered By: Jarek Sullivan on 01-22-2025 Erythrocyte distribution width (RBC) [Ratio] 13.7 % 11.6-14.6 [facility] Erythrocyte distribution wid th standard deviationOrdered By: Jarek Sullivan on 01-22-2025 Erythrocyte distribution width (RBC) [Ratio] 46.4 fl High 35.1-43.9 [facility] Glomerular filtration rate ( GFR) estimation/1.73 sq m using serum, plasma, or whole bOrdered By: Jarek Sullivan on 01-22-2025 GFR/1.73 sq M.predicted among non-blacks MDRD (S/P/Bld) [Vol rate/Area] 103 mL/min/{1.73_m2} >60 [facility] Comment on above: mL/min/1.73m2 CKD-EP I Creatinine Equation (2020) Hematocrit Auto (Bld) [Volum e fraction]Ordered By: Jarek Sullivan on 01-22-2025 Hematocrit (Bld) [Volume fraction] 42.1 % 40-54 [facility] Hemoglobin measurementOrdere d By: Jarek Sullivan on 01-22-2025 Hemoglobin (Bld) [Mass/Vol] 14.0 g/dL 13.0-16.5 [facility] Immature granulocytes/100 WB C Auto (Bld)Ordered By: Jarek Sullivan on 01-22-2025 Immature granulocytes/100 WBC (Bld) 1.100 % High 0.0-0.9 [facility] Comment on above: IG% - Immature Granu locytes (promyelocytes, myelocytes and metamyelocytes) > 1% indicates that a LEFT SHIFT is Present. Laboratory - Chemistry and C hemistry - challengeOrdered By: Jarek Sullivan on 01-22-2025 AST [Catalytic activity/Vol] 18 U/L <38 [facility] Lactate dehydrogenase (LDH) measurementOrdered By: Jarek Sullivan on 01-22-2025 LDH [Catalytic activity/Vol] 159 U/L 87-241 [facility] Lactic acid measurementOrder ed By: Jarek Sullivan on 01-22-2025 Lactate [Moles/Vol] 1.6 mmol/L 0.0-2.0 [facility] MCV (mean corpuscular volume ) determinationOrdered By: Jarek Sullivan on 01-22-2025 MCV (RBC) [Entitic vol] 91.7 fL 80-94 [facility] Mean corpuscular hemoglobin (MCH) determinationOrdered By: Jarek Sullivan on 01-22-2025 MCH (RBC) [Entitic mass] 30.5 pg 27.0-32.0 [facility] Mean corpuscular hemoglobin concentration (MCHC) determinationOrdered By: Jarek Sullivan on 01-22-2025 MCHC (RBC) [Mass/Vol] 33.3 g/dL 32-36 [facility] Mean platelet volume determi nationOrdered By: Jarek Sullivan on 01-22-2025 Platelet mean volume (Bld) [Entitic vol] 9.1 fL 6.2-12.0 [facility] Monocyte percentageOrdered B y: Jarek Sullivan on 01-22-2025 Monocytes/100 WBC (Bld) 4.1 % 0-10 [facility] Neutrophil percentageOrdered By: Jarek Sullivan on 01-22-2025 Neutrophils/100 WBC (Bld) 69.5 % 47-70 [facility] No Panel InformationOrdered By: Jarek Sullivan on 01-22-2025 Urine Buprenorphine Qualitative Negative < 200 ng/mL [facility] Urine Oxycodone Screen Negative < 100 ng/mL [facility] Blood Gas Sample Site Not entered [facility] Blood Gas Specimen Type NINO [facility] Oxygen Delivery Device Room Air [facility] Nucleated red blood cell per centageOrdered By: Jarek Sullivan on 01-22-2025 Nucleated RBC/100 WBC (Bld) [Ratio] 0 % 0-5 [facility] Platelet countOrdered By: Annia Sullivan on 01-22-2025 Platelets (Bld) [#/Vol] 264 10*3/uL 150-450 [facility] Potassium measurement (mass/ volume)Ordered By: Jarek Sullivan on 01-22-2025 Potassium (Unsp spec) [Mass/Vol] 3.8 mmol/L 3.3-5.1 [facility] Quantitative urine opiates m easurementOrdered By: Jarek Sullivan on 01-22-2025 Opiates Ql (U) Negative < 300 ng/mL [facility] RBC Auto (Bld) [#/Vol]Ordere d By: Jarek Sullivan on 01-22-2025 RBC (Bld) [#/Vol] 4.59 10*6/uL Low 4.6-6.2 [facility] Screening urine fentanyl roxie surementOrdered By: Jarek Sullivan on 01-22-2025 fentaNYL Screen Ql (U) Negative [facility] Serum creatinine measurement (mass/volume)Ordered By: Jarek Sullivan on 01-22-2025 Creatinine [Mass/Vol] 0.73 mg/dL 0.70-1.20 [facility] Serum globulin measurementOr dered By: Jarek Sullivan on 01-22-2025 Globulin (S) [Mass/Vol] 2.3 g/dL 2.2-4.2 [facility] Serum glucose measurement (m ass/volume)Ordered By: Jarek Sullivan on 01-22-2025 Glucose [Mass/Vol] 89 mg/dL 70-99 [facility] Serum or plasma acetaminophe n measurement (mass/volume)Ordered By: Jarek Sullivan on 01-22-2025 Acetaminophen [Mass/Vol] ug/mL Low 8.0-19.0 [facility] Comment on above: Acetaminophen concen trations > 200 ug/mL four hours after ingestion, > 100 ug/mL eight hours after ingestion, and > 50 ug/mL 12 hours after ingestion are potentially toxic. Serum or plasma alanine torrez otransferase (ALT) measurementOrdered By: Jarek Sullivan on 01-22-2025 ALT [Catalytic activity/Vol] 8 U/L <47 [facility] Serum or plasma albumin tonio urement (mass/volume)Ordered By: Jarek Sullivan on 01-22-2025 Albumin [Mass/Vol] 4.0 g/dL 3.4-4.8 [facility] Serum or plasma alkaline matt sphatase measurementOrdered By: Jarek Sullivan on 01-22-2025 ALP [Catalytic activity/Vol] 70 U/L 40-129 [facility] Serum or plasma calcium tonio urement (mass/volume)Ordered By: Jarek Sullivan on 01-22-2025 Calcium [Mass/Vol] 9.0 mg/dL 7.6-11.0 [facility] Serum or plasma ethanol tonio urement (mass/volume)Ordered By: Jarek Sullivan on 01-22-2025 Ethanol [Mass/Vol] mg/dL <10.1 [facility] Comment on above: This test is for med ical purposes only. The legal definition of intoxication varies according to local law. Serum or plasma salicylates measurement (mass/volume)Ordered By: Jarek Sullivan on 01-22-2025 Salicylates [Mass/Vol] mg/dL Low 2.8-20.0 [facility] Comment on above: Salicylate concentra tions > 30 mg/dL are potentially toxic.Salicylate concentrations exceeding 60 mg/dL can be lethal. Serum or plasma urea nitroge n measurement (mass/volume)Ordered By: Jarek Sullivan on 01-22-2025 Urea nitrogen [Mass/Vol] 16 mg/dL 4-19 [facility] Sodium levelOrdered By: Tushar Sullivan on 01-22-2025 Sodium [Moles/Vol] 139 mmol/L 133-145 [facility] Total proteinOrdered By: Jonathon Sullivan on 01-22-2025 Protein [Mass/Vol] 6.3 g/dL 5.9-8.4 [facility] Urine benzodiazepine levelOr dered By: Jarek Sullivan on 01-22-2025 Benzodiazepines Ql (U) Negative < 200 ng/mL [facility] Urine cocaine levelOrdered B y: Jarek Sullivan on 01-22-2025 Cocaine Ql (U) Negative < 300 ng/mL [facility] Urine utkag-8-kthxbhdmqriiho abinol (THC) measurementOrdered By: Jarek Sullivan on 01-22-2025 Cannabinoids Screen Ql (U) Negative < 50 ng/mL [facility] Urine phencyclidine (PCP) de tectionOrdered By: Jarek Sullivan on 01-22-2025 Phencyclidine Ql (U) Negative < 25 ng/mL [facility] Venous blood ammonia measure mentOrdered By: Jarek Sullivan on 01-22-2025 Ammonia (P) [Moles/Vol] 22.8 umol/L 16-60 [facility] Venous blood base excess roxie surementOrdered By: Jarek Sullivan on 01-22-2025 Base excess Calc (BldV) [Moles/Vol] 9 mmol/L High -1.0-3.5 [facility] Venous blood bicarbonate roxie surementOrdered By: Jarek Sullivan on 01-22-2025 HCO3 (Bld) [Moles/Vol] 34 mmol/L High 22-26 [facility] Venous blood oxygen saturati on measurementOrdered By: Jarek Sullivan on 01-22-2025 Oxygen saturation in Blood 69 % 50-70 [facility] Venous blood pH measurementO rdered By: Jarek Sullivan on 01-22-2025 pH (BldV) 7.41 [pH] 7.32-7.42 [facility] Venous blood partial pressur e of carbon dioxide measurementOrdered By: Jarek Sullivan on 01-22-2025 CO2 (BldV) [Partial pressure] 54.2 mm[Hg] High 41-51 [facility] Venous blood partial pressur e of oxygen measurementOrdered By: Jarek Sullivan on 01-22-2025 Oxygen (BldV) [Partial pressure] 37 mm[Hg] 25-40 [facility] White blood cell (WBC) count Ordered By: Jarek Sullivan on 01-22-2025 WBC (Bld) [#/Vol] 9.5 10*3/uL 4.4-11.0 [facility] Pulmonary Visit Reporton Pulmonary Visit Report [facility] [place] [address] [place] [address] OFFICE VISIT Date of Service: 11/26/24 MR#: [id number] Acct: [id number] Name: ELIUD BLOUNT Rep #: [id number] : 1960 Provider: Nicki Pantoja NP Age/Sex: 64/M Location: [facility] [place] Status: Signed Assessment and Plan Assessment and [...] daily maintenance inhaler to be sent to [employer]. Contact the office for any new or [...] L/min of (more content not included)... Normal [facility] Anion gap in Serum or Plasma Ordered By: CARL Pantoja on 11-25-2024 Anion gap [Moles/Vol] 12 mmol/L -15 [facility] BUN/creatinine ratioOrdered By: CARL Pantoja on 11-25-2024 Urea nitrogen/Creatinine [Mass ratio] 22.5 mg/mg High 10- [facility] Basic Metabolic Profile (BMP )on 11-25-2024 BUN/CRE 22.5 RATIO High - [facility] Comment on above: Performed By: #### L 500.2500, L503.7505 ####[facility] [address] [place], [address] Calcium [Mass/Vol] 9.0 mg/dL Normal 7.6-11.0 [facility] Comment on above: Performed By: #### L 500.2500, L503.7505 ####[facility] [address] [place], [address] Chloride [Moles/Vol] 97 mmol/L Low 98-108 [facility] Comment on above: Performed By: #### L 500.2500, L503.7505 ####[facility] [address] [place], [address] CO2 [Moles/Vol] 28.9 mmol/L Normal 21.0-32.0 [facility] Comment on above: Performed By: #### L 500.2500, L503.7505 ####[facility] [address] [place], [address] Creatinine [Mass/Vol] 0.66 mg/dL Low 0.70-1.20 [facility] Comment on above: Performed By: #### L 500.2500, L503.7505 ####[facility] [address] [place], [address] GAP 12 Normal 5-15 [facility] Comment on above: Performed By: #### L 500.2500, L503.7505 ####[facility] [address] [place], [address] GFR/1.73 sq M.predicted among non-blacks MDRD (S/P/Bld) [Vol rate/Area] 106 mL/min/{1.73_m2} Normal >60 [facility] Comment on above: Result Comment: mL/m in/1.73m2 CKD-EPI Creatinine Equation (2020) Performed By: #### L 500.2500, L503.7505 ####[facility] [address] [place], [address] Glucose [Mass/Vol] 55 mg/dL Low 70-99 [facility] Comment on above: Performed By: #### L 500.2500, L503.7505 ####[facility] [address] [place], [address] Potassium [Moles/Vol] 3.4 mmol/L Normal 3.3-5.1 [facility] Comment on above: Result Comment: Hemo lysis present, Results??could be affected. ?? Performed By: #### L 500.2500, L503.7505 ####[facility] [address] [place], [address] Sodium [Moles/Vol] 138 mmol/L Normal 133-145 [facility] Comment on above: Performed By: #### L 500.2500, L503.7505 ####[facility] [address] [place], [address] Urea nitrogen [Mass/Vol] 15 mg/dL Normal 4-19 [facility] Comment on above: Performed By: #### L 500.2500, L503.6465 ####[facility] [address] [place], [place], [address] Carbon dioxide, total [Moles /volume] in Central venous bloodOrdered By: CARL Pantoja on 11-25-2024 CO2 [Moles/Vol] 28.9 mmol/L 21.0-32.0 [facility] Chloride assayOrdered By: CARL Pantoja on 11-25-2024 Chloride [Moles/Vol] 97 mmol/L Low 98-108 [facility] Glomerular filtration rate ( GFR) estimation/1.73 sq m using serum, plasma, or whole bOrdered By: CARL Pantoja on 11-25-2024 GFR/1.73 sq M.predicted among non-blacks MDRD (S/P/Bld) [Vol rate/Area] 106 mL/min/{1.73_m2} >60 [facility] Comment on above: mL/min/1.73m2 CKD-EP I Creatinine Equation (2020) L503.7505on 11-25-2024 Natriuretic peptide B (Bld) [Mass/Vol] 95 pg/mL Normal <=900 [facility] Comment on above: Result Comment: Hear t Failure Unlikely: < 300 pg/mL Heart Failure Likely < 50 Years: > 450 pg/mL 50-75 Years: > 900 pg/mL >75 Years: > 1800 pg/mL Performed By: #### L 500.2500, L503.7505 ####[facility] [address] [place], [place], [address] Natriuretic peptide.B prohor meng N-Terminal [Mass/volume] in Serum or PlasmaOrdered By: CARL Pantoja on 11-25-2024 Natriuretic peptide.B prohormone N-Terminal [Mass/Vol] 95 pg/mL <900 [facility] Comment on above: Heart Failure Unlike ly: < 300 pg/mLHeart Failure Likely< 50 Years: > 450 pg/mL50-75 Years: > 900 pg/mL>75 Years: > 1800 pg/mL Potassium measurement (mass/ volume)Ordered By: CARL Pantoja on 11-25-2024 Potassium (Unsp spec) [Mass/Vol] 3.4 mmol/L 3.3-5.1 [facility] Comment on above: Hemolysis present, R esults could be affected. Serum creatinine measurement (mass/volume)Ordered By: CARL Pantoja on 11-25-2024 Creatinine [Mass/Vol] 0.66 mg/dL Low 0.70-1.20 [facility] Serum glucose measurement (m ass/volume)Ordered By: CARL Pantoja on 11-25-2024 Glucose [Mass/Vol] 55 mg/dL Low 70-99 [facility] Serum or plasma calcium tonio urement (mass/volume)Ordered By: CARL Pantoja on 11-25-2024 Calcium [Mass/Vol] 9.0 mg/dL 7.6-11.0 [facility] Serum or plasma urea nitroge n measurement (mass/volume)Ordered By: CARL Pantoja on 11-25-2024 Urea nitrogen [Mass/Vol] 15 mg/dL 4-19 [facility] Sodium levelOrdered By: CARL Pantoja on 11-25-2024 Sodium [Moles/Vol] 138 mmol/L 133-145 [facility] Bacteria Ur Culton 5 Bacteria identified Cx Nom (U) ORGANISM ID: 1 >=100,000 CFU/ml Normal urogenital jose Normal [facility] Comment on above: Performed By: #### 6 30-4 ####[facility] LABCLIA [id number] [address] [place] CNOVon 09-20-2024 CNOV Office Visit (UCWSTR ) ELIUD BLOUNT ([id number]) 1960 M Date Time Provider Department 09/20/24 10:30 AM VINITA LILLYGUIDO During your visit today, we recorded the following information about you: Temperature Pulse Respiration Blood pressure 97.1 degrees 70/minute 16/minute 106/62 Weight 56.4 kg Vinita Lilly APRN.DIRECTOR OF PROPERTY MANAGEMENT 09/20/2024 2:11 PM Signed [facility] [...] Cervicalgia 07/29/2006 Chronic obstructive pulmonary disease (COPD) ([facility]) DEPRESSIVE DISORDER NEC 07/29/2006 Diabetes ([facility]) Headache(784.0) 07/29/2006 Hypertension Intracranial injury of other [...] YRS/> REDUCIBLE simple ALLERGIES Day-Nite Severe Cold-Flu [Korouxh-Bg-Ig-Acetam inophen-Gg], Dextromethorphan, Doxylamine, Pseudoephedrine, Sertraline, Zoloft [Sertraline Hcl], Baclofen, and Nyquil [Anpbsswjt-Iou-Ub-Deric taminophen] MEDICATIONS fluticasone (FLONASE) 50 mcg/actuation nasal [...] Wt 56.4 (more content not included)... Normal [facility] UA DIP, URINE (POC)on 2024 BILIRUBIN UA (POCT) Negative Negative [facility] CLARITY UA (POCT) Cloudy [facility] COLOR UA (POCT) Yellow [facility] GLUCOSE UA (POCT) Negative Negative mg/dL [facility] Hemoglobin Ql (U) Moderate Abnormal Negative [facility] Interpretation and review of laboratory results Abnormal [facility] KETONE UA (POCT) Negative Negative mg/dL [facility] LEUKOCYTES UA (POCT) Large Abnormal Negative [facility] NITRITE UA (POCT) Negative Negative [facility] PH UA (POCT) 6 4.5 - 8.0 [facility] Protein Ql (U) >=300 Abnormal Negative mg/dL [facility] SPECIFIC GRAVITY UA (POCT) >=1.030 1.005 - 1.030 [facility] UROBILINOGEN UA (POCT) 1 Sheridan l E.U./dL [facility] Location:[facility], [address] [facility], [place], [place], [address] [place] [address] POINT OF CARE [facility] Consultation - Intensiviston 08-28-2024 Consultation - Assessment Technician [facility] Medical Records Department [address] [place] [address] Consultation - Assessment Technician 08/28/24 0053 MR#: [id number] Acct: [id number] Name: ELIUD BLOUNT Rep #: [id number] : 1960 63 From: Krishan Calzada MD PCP: Dr. Priscilla Arndt MD Status:ADM IN Location: ICU [id number] Krishan Calzada MD on 08/28/24 at 0106 Addendum We will follow peripherally 08/28/24 0106 Cosigner Signature (if applicable): cc: Dr. Priscilla Arndt MD * Signed HPI Consult Data [...] head on the radiator. Upon arrival to [place], his laboratory data revealed a slightly elevated [...] other systems were reviewed and were negative. [facility] Medical History (Updated 08/27/24 @ 16:49 by [...] Pressure Positi (more content not included)... Normal [facility] Discharge Instructionon 08-14 Discharge Instruction [facility] Medical Records Department [address] [place] [address] Instructions for Home/Discharge Instructions 08/28/24 1142 MR#: [id number] Acct: [id number] Name: ELIUD BLOUNT Rep #: [id number] : 1960 63 From: Hyun Duncan MD PCP: Dr. Priscilla Arndt MD Status:ADM IN Discharge Instructions Diet [...] Attending Provider: Hyun Duncan Primary Care Provider: Priscilla Arndt Consulting Providers: Jone Dudley; Jeffry Bo; [...] Qty: 60 11RF Referrals / Follow Up: Priscilla Arndt MD [Primary Care Provider] - Within 1 Week Disposition Disposition (needs filled in before D/C Order can be placed): Home, Self Care 08/28/24 1142 Hyun Duncan MD CC: Maria M Triana; Laxmi Oh; Saturnino Calixto; Swathi Pete MD; Charissa Vickers MD; Al Conner MD; Dr. Jeffry Bo MD; Dr. Nael Grullon MD; Dr. Jone Dudley MD; Dr. Magdi Serrano MD; Dr. Priscilla Arndt MD; Dr. Calvin Jasso MD; Dr. Crow Barrera MD; Dr. Rock Dick DO; Dr. Sebastian Charles MD; Dr. Jamal Mina MD; Dr. Morris Disla MD; Dr. Pauline Lyons MD; Dr. Eliud Tripp MD; Dr. Saqib Holcomb MD; Dr. Nehemias Martines MD; Dr. Fabien Boles MD; Dr. Jarek Rosas MD; Dr. Sirisha Lorenzo MD; Dr. Rosarua Mosley MD; Dr. Debbie Jimenez MD; Dr. [...] Smith DO; Kandi Ray MD Signed Normal [facility] MR/CON.PCM.NEon 08-28-2024 MR/CON.PCM.NE [facility] Medical Records Department [address] [place] [address] Consultation - Neurology 08/28/24 0821 MR#: [id number] Acct: [id number] Name: ELIUD BLOUNT Rep #: [id number] : 1960 63 From: Sofia Smith MD PCP: Dr. Priscilla Arndt MD Status:ADM IN Location: ICU [id number] Assessment and Plan: Neuro Assessment/Plan ELIUD BLOUNT [...] to normal, no concerns for his thinking. [facility] Medical History Pneumonia Pneumonia Left ankle injury [...] Rate 84 (more content not included)... Normal [facility] 12 Lead EKGon 08-27-2024 12 Lead EKG [facility] Cardiovascular Services [address] [place] [address] 12 Lead EKG 08/27/24 1453 MR#: [id number] Acct: [id number] Name: ELIUD BLOUNT Rep #: [id number] : 1960 63 From: Johnny Xavier MD [...] Abnormal ECG Confirmed by ERIN ARBOLEDA, CHITRA ([id number]), primer expeditor and drier MEG MULLINS ([id number]) on 08/30/2024 10:56:43 AM Referred By: Confirmed By: CHITRA XAVIER MD 08/30/24 1056 Date Johnny Xavier MD CC: Dr. Miguel Ángel Liao MD; Dr. Priscilla Arndt MD; Dr. Hyun Duncan MD Signed Normal [facility] Absolute lymphocyte countOrd ered By: Miguel Ángel Liao on 08-27-2024 Lymphocytes Auto (Unsp spec) [#/Vol] 1.99 10*3/uL 0.83-4.51 [facility] Absolute neutrophil countOrd ered By: Miguel Ángel Liao on 08-27-2024 Neutrophils (Bld) [#/Vol] 2.0 10*3/uL 2.0-7.7 [facility] Activated partial thrombopla stin time (aPTT) in platelet poor plasma by coagulation aOrdered By: Miguel Ángel Liao on 08-27-2024 aPTT Coag (PPP) [Time] 31.6 s 24.1-36.2 [facility] Alcohol, Blood (Medical)-Ser umon 08-27-2024 SERUM ETOH < 10.1 Normal <=10.0 [facility] Comment on above: Result Comment: This test is for medical purposes only. The legal definition of intoxication varies according to local law. Performed By: #### L 501.4021, L100.0100, L500.2500, L300.4310, L300.3900, L501.9100 #### [facility] [address] [place], [place], [address] Ammoniaon 08-27-2024 Ammonia (P) [Moles/Vol] 38.6 umol/L Normal 16-60 [facility] Comment on above: Performed By: #### L 503.5510 #### [facility] [address] [place], [place], [address] Amphetamine detection with 1 000 ng/mL as cutoffOrdered By: Miguel Ángel Liao on 03-14-2025 Amphetamines Screen method >1000 ng/mL Ql (U) Positive <1000 ng/mL [facility] Comment on above: If confirmation test ing is needed, a separate order will be required to send out testing to the reference laboratory. Amphetamines Screen method >1000 ng/mL Ql (U) Negative < 200 ng/mL [facility] Amphetamines Screen method > 1000 ng/mL Ql (U)Ordered By: Miguel Ángel Liao on 08-27-2024 Amphetamines Ql (U) Positive <1000 ng/mL [facility] Comment on above: If confirmation test ing is needed, a separate order will be required to send out testing to the reference laboratory. Urine Barbiturates Screen Negative < 200 ng/mL [facility] Anion gap in Serum or Plasma Ordered By: Miguel Ángel Liao on 08-27-2024 Anion gap [Moles/Vol] 11 mmol/L 5- [facility] Automated lymphocyte count a s percentage of total leukocytesOrdered By: Miguel Ángel Liao on 08-27-2024 Lymphocytes/100 WBC Auto (Unsp spec) 43.8 % High 19-41 [facility] BUN/creatinine ratioOrdered By: Miguel Ángel Liao on 08-27-2024 Urea nitrogen/Creatinine [Mass ratio] 30.2 mg/mg High 04-04 [facility] Base excess Calc (BldV) [Mol es/Vol]Ordered By: Miguel Ángel Liao on 08-27-2024 Blood Gas Base Excess 7 mmol/L High -2-2 [facility] Basic Metabolic Profile (BMP )on 08-27-2024 BUN/CRE 30.2 RATIO High [facility] Comment on above: Performed By: #### L 501.4021, L100.0100, L500.2500, L300.4310, L300.3900, L501.9100 ####[facility] [address] [place], [place], [address] Calcium [Mass/Vol] 8.8 mg/dL Normal 7.6-11.0 [facility] Comment on above: Performed By: #### L 501.4021, L100.0100, L500.2500, L300.4310, L300.3900, L501.9100 ####[facility] [address] [place], [address] Chloride [Moles/Vol] 100 mmol/L Normal 98-108 [facility] Comment on above: Performed By: #### L 501.4021, L100.0100, L500.2500, L300.4310, L300.3900, L501.9100 ####[facility] [address] [place], [address] CO2 [Moles/Vol] 26.6 mmol/L Normal 21.0-32.0 [facility] Comment on above: Performed By: #### L 501.4021, L100.0100, L500.2500, L300.4310, L300.3900, L501.9100 ####[facility] [address] [place], [address] Creatinine [Mass/Vol] 0.73 mg/dL Normal 0.70-1.20 [facility] Comment on above: Performed By: #### L 501.4021, L100.0100, L500.2500, L300.4310, L300.3900, L501.9100 ####[facility] [address] [place], [address] ECRCL 84.17 ml/min Normal 50-250 [facility] Comment on above: Performed By: #### L 501.4021, L100.0100, L500.2500, L300.4310, L300.3900, L501.9100 ####[facility] [address] [place], [address] GAP 11 Normal 5-15 [facility] Comment on above: Performed By: #### L 501.4021, L100.0100, L500.2500, L300.4310, L300.3900, L501.9100 ####[facility] [address] [place], [address] GFR/1.73 sq M.predicted among non-blacks MDRD (S/P/Bld) [Vol rate/Area] 103 mL/min/{1.73_m2} Normal >60 [facility] Comment on above: Result Comment: mL/m in/1.73m2 CKD-EPI Creatinine Equation (2020) Performed By: #### L 501.4021, L100.0100, L500.2500, L300.4310, L300.3900, L501.9100 ####[facility] [address] [place], [address] Glucose [Mass/Vol] 147 mg/dL High 70-99 [facility] Comment on above: Performed By: #### L 501.4021, L100.0100, L500.2500, L300.4310, L300.3900, L501.9100 ####[facility] [address] [place], [address] Potassium [Moles/Vol] 3.6 mmol/L Normal 3.3-5.1 [facility] Comment on above: Performed By: #### L 501.4021, L100.0100, L500.2500, L300.4310, L300.3900, L501.9100 ####[facility] [address] [place], [address] Sodium [Moles/Vol] 138 mmol/L Normal 133-145 [facility] Comment on above: Performed By: #### L 501.4021, L100.0100, L500.2500, L300.4310, L300.3900, L501.9100 ####[facility] [address] [place], [address] Urea nitrogen [Mass/Vol] 22 mg/dL High 4-19 [facility] Comment on above: Performed By: #### L 501.4021, L100.0100, L500.2500, L300.4310, L300.3900, L501.9100 ####[facility] [address] [place], [address] Basophil percentageOrdered B y: Miguel Ángel Liao on 08-27-2024 Basophils/100 WBC (Bld) 0.9 % 0-1 [facility] Blood Gases by CPSon 025 Base excess Calc (Bld) [Moles/Vol] 7 mmol/L High -2 to +2 [facility] Comment on above: Performed By: #### L 9000.0800 ####[facility] [address] [place], [address] Blood Gas Type ART Normal [facility] Comment on above: Performed By: #### L 9000.0800 ####[facility] [address] [place], [address] CO2 [Moles/Vol] 34 mmol/L Normal [facility] Comment on above: Performed By: #### L 9000.0800 ####[facility] [address] [place], [address] HCO3 (Bld) [Moles/Vol] 31.9 mmol/L High 22-26 [facility] Comment on above: Performed By: #### L 9000.0800 ####[facility] [address] [place], [address] Mode Not entered Normal [facility] Comment on above: Performed By: #### L 9000.0800 ####[facility] [address] [place], [address] O2 Delivery Dev Room Air Normal [facility] Comment on above: Performed By: #### L 9000.0800 ####[facility] [address] [place], [address] pCO2 53.7 mmHg High 35-45 [facility] Comment on above: Performed By: #### L 9000.0800 ####[facility] [address] [place], [address] pH (Bld) 7.38 [pH] Normal 7.35-7.45 [facility] Comment on above: Performed By: #### L 9000.0800 ####[facility] [address] [place], [address] PO2 65 mmHG Low 75-100 [facility] Comment on above: Performed By: #### L 9000.0800 ####[facility] [address] [place], [address] SITE L Brach Normal [facility] Comment on above: Performed By: #### L 9000.0800 ####[facility] [address] [place], [address] SO2 91 Low 95-99 [facility] Comment on above: Performed By: #### L 9000.0800 ####[facility] [address] [place], [address] Blood base excess determinat ionOrdered By: Miguel Ángel Liao on 08-27-2024 Base excess Calc (BldV) [Moles/Vol] 7 mmol/L High -2-2 [facility] Blood bicarbonate measuremen tOrdered By: Miguel Ángel Liao on 08-27-2024 Blood Gas Bicarbonate Actual 31.9 mmol/L High 22-26 [facility] HCO3 (Bld) [Moles/Vol] 31.9 mmol/L High 22-26 [facility] Brain W/WO Contraston 2024 Brain W/WO Contrast [facility] Imaging Services [address] [place] [address] Brain W/WO Contrast MR#: [id number] Acct: [id number] Name: ELIUD BLOUNT Rep #: [id number] : 1960 M 63 From: Bryan al MD PCP: Dr. Priscilla Arndt MD Status: DIS IN Study: Brain W/WO Contrast Date of Exam: 08/27/24 Exam# [id number] Ordering Dr: Hyun Duncan MD ADDENDUM by Dr. Bryan Uribe MD on 09/07/24 at 0844 10 cc IV Clariscan was administered. Reading Location: [facility] 09/07/24 0844 Date cc: Dr. Priscilla Arndt MD; Dr. Hyun Duncan MD * [...] or leptomeningeal enhancement COMPARISON: None. Reading Location: [facility] CC: Dr. Priscilla Arndt MD; Dr. Hyun Duncan MD Girls Swimming Coach: Signed Normal [facility] CBC W/Diff, Automatedon 08-14 Absolute Lymph 1.99 X10 3/uL Normal 0.83-4.51 [facility] Comment on above: Performed By: #### L 501.4021, L100.0100, L500.2500, L300.4310, L300.3900, L501.9100 #### [facility] [address] [place], [address] Absolute Neut 2.0 X10 3/uL Normal 2.0-7.7 [facility] Comment on above: Performed By: #### L 501.4021, L100.0100, L500.2500, L300.4310, L300.3900, L501.9100 #### [facility] [address] [place], [address] Basophils/100 WBC (Bld) 0.9 % Normal 0-1 [facility] Comment on above: Performed By: #### L 501.4021, L100.0100, L500.2500, L300.4310, L300.3900, L501.9100 #### [facility] [address] [place], [address] Eosinophils/100 WBC (Bld) 2.2 % Normal 0-5 [facility] Comment on above: Performed By: #### L 501.4021, L100.0100, L500.2500, L300.4310, L300.3900, L501.9100 #### [facility] [address] [place], [address] Erythrocyte distribution width (RBC) [Ratio] 13.1 % Normal 11.6-14.6 [facility] Comment on above: Performed By: #### L 501.4021, L100.0100, L500.2500, L300.4310, L300.3900, L501.9100 #### [facility] [address] [place], [address] Hematocrit (Bld) [Volume fraction] 40.2 % Normal 40-54 [facility] Comment on above: Performed By: #### L 501.4021, L100.0100, L500.2500, L300.4310, L300.3900, L501.9100 #### [facility] [address] [place], [address] Hemoglobin (Bld) [Mass/Vol] 13.2 g/dL Normal 13.0-16.5 [facility] Comment on above: Performed By: #### L 501.4021, L100.0100, L500.2500, L300.4310, L300.3900, L501.9100 #### [facility] [address] [place], [address] IG% 0.200 Normal 0.0-0.9 [facility] Comment on above: Result Comment: IG% - Immature Granulocytes (promyelocytes, myelocytes and metamyelocytes) > 1% indicates that a LEFT SHIFT is Present. Performed By: #### L 501.4021, L100.0100, L500.2500, L300.4310, L300.3900, L501.9100 #### [facility] [address] [facility] [place], [address] Lymphocytes/100 WBC (Bld) 43.8 % High 19-41 [facility] Comment on above: Performed By: #### L 501.4021, L100.0100, L500.2500, L300.4310, L300.3900, L501.9100 #### [facility] [address] [place], [address] MCH (RBC) [Entitic mass] 30.1 pg Normal 27.0-32.0 [facility] Comment on above: Performed By: #### L 501.4021, L100.0100, L500.2500, L300.4310, L300.3900, L501.9100 #### [facility] [address] [place], [address] MCHC (RBC) [Mass/Vol] 32.8 g/dL Normal 32-36 [facility] Comment on above: Performed By: #### L 501.4021, L100.0100, L500.2500, L300.4310, L300.3900, L501.9100 #### [facility] [address] [place], [address] MCV (RBC) [Entitic vol] 91.8 fL Normal 80-94 [facility] Comment on above: Performed By: #### L 501.4021, L100.0100, L500.2500, L300.4310, L300.3900, L501.9100 #### [facility] [address] [place], [address] Monocytes/100 WBC (Bld) 9.7 % Normal 0-10 [facility] Comment on above: Performed By: #### L 501.4021, L100.0100, L500.2500, L300.4310, L300.3900, L501.9100 #### [facility] [address] [place], [address] Neutrophils/100 WBC (Bld) 43.2 % Low 47-70 [facility] Comment on above: Performed By: #### L 501.4021, L100.0100, L500.2500, L300.4310, L300.3900, L501.9100 #### [facility] [address] [place], [address] Nucleated RBC (Bld) [#/Vol] 0 10*3/uL Normal 0-5 [facility] Comment on above: Performed By: #### L 501.4021, L100.0100, L500.2500, L300.4310, L300.3900, L501.9100 #### [facility] [address] [place], [address] Platelet mean volume (Bld) [Entitic vol] 9.0 fL Normal 6.2-12.0 [facility] Comment on above: Performed By: #### L 501.4021, L100.0100, L500.2500, L300.4310, L300.3900, L501.9100 #### [facility] [address] [place], [address] Platelets (Bld) [#/Vol] 262 10*3/uL Normal 150-450 [facility] Comment on above: Performed By: #### L 501.4021, L100.0100, L500.2500, L300.4310, L300.3900, L501.9100 #### [facility] [address] [place], [address] RBC (Bld) [#/Vol] 4.38 10*6/uL Low 4.6-6.2 [facility] Comment on above: Performed By: #### L 501.4021, L100.0100, L500.2500, L300.4310, L300.3900, L501.9100 #### [facility] [address] [place], [address] RDW SD 44.0 fl High 35.1-43.9 [facility] Comment on above: Performed By: #### L 501.4021, L100.0100, L500.2500, L300.4310, L300.3900, L501.9100 #### [facility] [address] [place], [address] WBC (Bld) [#/Vol] 4.5 10*3/uL Normal 4.4-11.0 [facility] Comment on above: Performed By: #### L 501.4021, L100.0100, L500.2500, L300.4310, L300.3900, L501.9100 #### [facility] [address] [place], [address] Carbon dioxide, total [Moles /volume] in Central venous bloodOrdered By: Miguel Ángel Liao on 03-14-2025 CO2 [Moles/Vol] 26.6 mmol/L 21.0-32.0 [facility] Chest 1 Viewon 08-27-2024 Chest 1 View [facility] Imaging Services [address] [place] [address] Chest 1 View MR#: [id number] Acct: [id number] Name: ELIUD BLOUNT Rep #: [id number] : 1960 M 63 From: Bijan lopez MD PCP: Dr. Priscilla Arndt MD Status: REG ER Study: Chest 1 View Date of Exam: 08/27/24 Exam# [id number] Ordering Dr: Miguel Ángel Liao MD PROCEDURE: [...] 1 View IMPRESSION: Stable examination. Reading Location: [place] [address] CC: Dr. Miguel Ángel Liao MD; Dr. Priscilla Arndt MD Girls Swimming Coach: Signed Normal [facility] Chloride assayOrdered By: Chris Liao on 08-27-2024 Chloride [Moles/Vol] 100 mmol/L 98-108 [facility] Emergency Department Summary on 08-27-2024 Emergency Department Summary [facility] Medical Records Department [address] [place] [address] Emergency Department Summary 08/27/24 MR#: [id number] Acct: [id number] Name: ELIUD BLOUNT Rep #: [id number] : 1960 63 From: Miguel Ángel Liao MD PCP: Dr. Priscilla Arndt MD Status:REG ER Location: ED ADDENDUM by Dr. Miguel Ángel Liao MD on 08/27/24 at 1654 EKG had been obtained as well as part of the stroke workup and interpreted by myself independently as normal sinus rhythm at 81 bpm without ectopy or acute ST changes. No STEMI. 08/27/24 8703 Cosigner Signature (if applicable): cc: Dr. Priscilla Arndt MD * Signed HPI History of [...] He presents as a prehospital stroke team. [facility] Medical History (Updated 08/27/24 @ 16:49 by [...] Normal Bl (more content not included)... Normal [facility] Eosinophil percentageOrdered By: Miguel Ángel Liao on 08-27-2024 Eosinophils/100 WBC (Bld) 2.2 % 0-5 [facility] Erythrocyte distribution wid th ratioOrdered By: Miguel Ángel Liao on 08-27-2024 Erythrocyte distribution width (RBC) [Ratio] 13.1 % 11.6-14.6 [facility] Erythrocyte distribution wid th standard deviationOrdered By: Miguel Ángel Liao on 08-27-2024 Erythrocyte distribution width (RBC) [Entitic vol] 44.0 fL High 35.1-43.9 [facility] Erythrocyte distribution width (RBC) [Ratio] 44.0 fl High 35.1-43.9 [facility] Estimation of creatinine michelle aranceOrdered By: Miguel Ángel Liao on 08-27-2024 Estimated Creatinine Clearance Calc 84.17 ml/min 50-250 [facility] Ethanol [Mass/Vol]Ordered By : Miguel Ángel Liao on 08-27-2024 Ethyl Alcohol Level < 10.1 mg/dL <10.1 [facility] Comment on above: This test is for med ical purposes only. The legal definition of intoxication varies according to local law. GFR/1.73 sq M.predicted mango g non-blacks MDRD (S/P/Bld) [Vol rate/Area]Ordered By: Miguel Ángel Liao on 08-27-2024 Estimated GFR (MDRD) Non-Af Amer 103 >60 [facility] Comment on above: mL/min/1.73m2 CKD-EP I Creatinine Equation (2020) Glomerular filtration rate ( GFR) estimation/1.73 sq m using serum, plasma, or whole bOrdered By: Miguel Ángel Liao on 08-27-2024 GFR/1.73 sq M.predicted among non-blacks MDRD (S/P/Bld) [Vol rate/Area] 103 mL/min/{1.73_m2} >60 [facility] Comment on above: mL/min/1.73m2 CKD-EP I Creatinine Equation (2020) H AND P Exam - [facility]iston 08-27-2024 H&P Exam - Hospitalist [facility] Medical Records Department [address] [place] [address] H P Exam - Hospitalist 08/27/24 1640 MR#: [id number] Acct: [id number] Name: ELIUD BLOUNT Rep #: [id number] : 1960 63 From: Hyun Duncan MD PCP: Dr. Priscilla Arndt MD Status:ADM IN Location: ICU [id number] HPI - General General Date of Service: [...] is on the lung transplant list at [facility]. He was brought in to the ED due to concern about a stroke. Vitals in the ED were BP oif 101/74, GA of 73, RR of 10 and oxygen [...] managed for acute encephalopathy of unclear etiology. [facility] Medical History (Updated 08/27/24 @ 16:49 by [...] Normal Non-Labored (more content not included)... Normal [facility] Hematocrit Auto (Bld) [Volum e fraction]Ordered By: Miguel Ángel Liao on 08-27-2024 Hematocrit (Bld) [Volume fraction] 40.2 % 40-54 [facility] Hemoglobin measurementOrdere d By: Miguel Ángel Liao on 08-27-2024 Hemoglobin (Bld) [Mass/Vol] 13.2 g/dL 13.0-16.5 [facility] Immature granulocytes/100 WB C Auto (Bld)Ordered By: Miguel Ángel Liao on 08-27-2024 Immature granulocytes/100 WBC (Bld) 0.200 % 0.0-0.9 [facility] Comment on above: IG% - Immature Granu locytes (promyelocytes, myelocytes and metamyelocytes) > 1% indicates that a LEFT SHIFT is Present. International normalized rat io (INR) calculationOrdered By: Miguel Ángel Liao on 08-27-2024 INR Coag (Bld) [Relative time] 1.1 {INR} [facility] L499.0042on 08-27-2024 Trop T High Sen 33 ng/L High <=22 [facility] Comment on above: Performed By: #### L 499.0042 #### [facility] [address] [place], [address] L499.0043on 08-27-2024 Trop T High Sen 18 ng/L Normal <=22 [facility] Comment on above: Performed By: #### L 499.0043 ####[facility] [address] [place], [address] L501.4021on 08-27-2024 Trop T High Sen 23 ng/L High <=22 [facility] Comment on above: Performed By: #### L 501.4021, L100.0100, L500.2500, L300.4310, L300.3900, L501.9100 ####[facility] [address] [place], [address] Lymphocytes Auto (Unsp spec) [#/Vol]Ordered By: Miguel Ángel Liao on 08-27-2024 Lymphocytes (Bld) [#/Vol] 1.99 10*3/uL 0.83-4.51 [facility] Lymphocytes/100 WBC Auto (Un sp spec)Ordered By: Miguel Ángel Liao on 08-27-2024 Lymphocytes/100 WBC (Bld) 43.8 % High 19-41 [facility] MCV (mean corpuscular volume ) determinationOrdered By: Miguel Ángel Liao on 08-27-2024 MCV (RBC) [Entitic vol] 91.8 fL 80-94 [facility] Magnetic resonance imaging r eportOrdered By: Bryan Uribe on 08-27-2024 Study report [facility] Imaging Services [address] [place] [address] Brain W/WO Contrast MR#: [id number] Acct: [id number] Name: ELIUD BLOUNT Rep #: [id number] : 1960 M 63 From: Lacey Uribe MD PCP: Dr. Priscilla Arndt MD Status: ADM I N Study:Brain W/WO Contrast Date of Exam: 08/27/24 Exam# [id number] Ordering Dr: Liseth Duncan MD PROCEDURE: TECHNIQUE: [...] COMPARISON: None. Reading Location: [place] CC: Dr. Priscilla Arndt MD; Dr. Hyun Duncan MD ~ Girls Swimming Coach: Signed [facility] Mean corpuscular hemoglobin (MCH) determinationOrdered By: Miguel Ángel Liao on 08-27-2024 MCH (RBC) [Entitic mass] 30.1 pg 27.0-32.0 [facility] Mean corpuscular hemoglobin concentration (MCHC) determinationOrdered By: Miguel Ángel Liao on 08-27-2024 MCHC (RBC) [Mass/Vol] 32.8 g/dL 32-36 [facility] Mean platelet volume determi nationOrdered By: Miguel Ángel Liao on 08-27-2024 Platelet mean volume (Bld) [Entitic vol] 9.0 fL 6.2-12.0 [facility] Measurement, pHOrdered By: Jesús Liao on 08-27-2024 pH (Unsp spec) 7.38 [pH] 7.35-7.45 [facility] Methadone, urineOrdered By: Miguel Ángel Liao on 08-27-2024 Urine Methadone Screen Negative < 300 ng/mL [facility] Monocyte percentageOrdered B y: Miguel Ángel Liao on 08-27-2024 Monocytes/100 WBC (Bld) 9.7 % 0-10 [facility] Neutrophil percentageOrdered By: Miguel Ángel Liao on 08-27-2024 Neutrophils/100 WBC (Bld) 43.2 % Low 47-70 [facility] No Panel InformationOrdered By: Miguel Ángel Liao on 08-27-2024 Urine Buprenorphine Qualitative Negative < 200 ng/mL [facility] Urine Oxycodone Screen Negative < 100 ng/mL [facility] Blood Gas Sample Site L Brach [facility] Blood Gas Specimen Type ART [facility] Blood Gas Vent Mode Not entered [facility] Oxygen Delivery Device Room Air [facility] Troponin T High Sensitivity 23 ng/L High <22 [facility] Nucleated red blood cell per centageOrdered By: Miguel Ángel Liao on 08-27-2024 Nucleated RBC/100 WBC (Bld) [Ratio] 0 % 0-5 [facility] Oxygen saturation measuremen tOrdered By: Miguel Ángel Liao on 08-27-2024 Blood Gas Oxygen Saturation 91 % Low 95-99 [facility] Partial Thromboplast Timeon 08-27-2024 aPTT Coag (Bld) [Time] 31.6 s Normal 24.1-36.2 [facility] Comment on above: Performed By: #### L 501.4021, L100.0100, L500.2500, L300.4310, L300.3900, L501.9100 #### [facility] [address] [place], [address] Partial pressure of carbon d ioxide measurementOrdered By: Miguel Ángel Liao on 08-27-2024 Arterial Blood Partial Pressure CO2 53.7 mmHg High 35-45 [facility] Partial pressure of oxygen m easurementOrdered By: Miguel Ángel Liao on 08-27-2024 Arterial Blood Partial Pressure O2 65 mmHG Low 75-100 [facility] Platelet countOrdered By: Chris Liao on 08-27-2024 Platelets (Bld) [#/Vol] 262 10*3/uL 150-450 [facility] Potassium (Unsp spec) [Mass/ Vol]Ordered By: Miguel Ángel Liao on 08-27-2024 Potassium [Moles/Vol] 3.6 mmol/L 3.3-5.1 [facility] Potassium measurement (mass/ volume)Ordered By: Miguel Ángel Liao on 08-27-2024 Potassium (Unsp spec) [Mass/Vol] 3.6 mmol/L 3.3-5.1 [facility] Prothrombin Time w/INRon INR Coag (PPP) [Relative time] 1.1 {INR} Normal [facility] Comment on above: Performed By: #### L 501.4021, L100.0100, L500.2500, L300.4310, L300.3900, L501.9100 #### [facility] [address] [place], [place], [address] (703) PT Coag (PPP) [Time] 13.9 s Normal 11.7-14.9 [facility] Comment on above: Performed By: #### L 501.4021, L100.0100, L500.2500, L300.4310, L300.3900, L501.9100 #### [facility] [address] [place], [place], [address] (355) Prothrombin timeOrdered By: Miguel Ángel Liao on 08-27-2024 PT Coag (PPP) [Time] 13.9 s 11.7-14.9 [facility] Quantitative urine opiates m easurementOrdered By: Miguel Ángel Liao on 08-27-2024 Opiates Ql (U) Negative < 300 ng/mL [facility] RBC Auto (Bld) [#/Vol]Ordere d By: Miguel Ángel Liao on 08-27-2024 RBC (Bld) [#/Vol] 4.38 10*6/uL Low 4.6-6.2 [facility] STROKE Brain/Head without Co nton 08-27-2024 STROKE Brain/Head without Cont [facility] Imaging Services [address] [place], [place] [address] STROKE Brain/Head without Cont MR#: [id number] Acct: [id number] Name: ELIUD BLOUNT Rep #: [id number] : 1960 M 63 From: Bijan lopez MD PCP: Dr. Priscilla Arndt MD Status: REG ER Study: STROKE Brain/Head without Cont Date of Exam: 0 08/27/24 Exam# [id number] Ordering Dr: Miguel Ángel Liao MD EXAM: [...] 2:36 pm with readback verification. Reading Location: [place] [address] CC: Dr. Miguel Ángel Liao MD; Dr. Priscilla Arndt MD Girls Swimming Coach: Signed Normal [facility] STROKE CTA Head AND Neck W/C onon 08-27-2024 STROKE CTA Head AND Neck W/Con [facility] Imaging Services [address] [place], [place] [address] STROKE CTA Head AND Neck W/Con MR#: [id number] Acct: [id number] Name: ELIUD BLOUNT Rep #: [id number] : 1960 M 63 From: Bijan lopez MD PCP: Dr. Priscilla Arndt MD Status: REG ER Study: STROKE CTA Head AND Neck W/Con Date of Exam: 0 08/27/24 Exam# [id number] Ordering Dr: Miguel Ángel Liao MD PROCEDURE: [...] 2:50 pm with readback verification. Reading Location: [place] [address] CC: Dr. Miguel Ángel Liao MD; Dr. Priscilla Arndt MD Girls Swimming Coach: Signed Normal [facility] Screening urine fentanyl roxie surementOrdered By: Miguel Ángel Liao on 08-27-2024 fentaNYL Screen Ql (U) Negative [facility] Serum creatinine measurement (mass/volume)Ordered By: Miguel Ángel Liao on 08-27-2024 Creatinine [Mass/Vol] 0.73 mg/dL 0.70-1.20 [facility] Serum glucose measurement (m ass/volume)Ordered By: Miguel Ángel Liao on 08-27-2024 Glucose [Mass/Vol] 147 mg/dL High 70-99 [facility] Serum or plasma calcium tonio urement (mass/volume)Ordered By: Miguel Ángel Liao on 08-27-2024 Calcium [Mass/Vol] 8.8 mg/dL 7.6-11.0 [facility] Serum or plasma ethanol tonio urement (mass/volume)Ordered By: Miguel Ángel Liao on 08-27-2024 Ethanol [Mass/Vol] mg/dL <10.1 [facility] Comment on above: This test is for med ical purposes only. The legal definition of intoxication varies according to local law. Serum or plasma urea nitroge n measurement (mass/volume)Ordered By: Miguel Ángel Liao on 08-27-2024 Urea nitrogen [Mass/Vol] 22 mg/dL High 4-19 [facility] Sodium levelOrdered By: Miguel Ángel Liao on 08-27-2024 Sodium [Moles/Vol] 138 mmol/L 133-145 [facility] TSH DL <= 0.005 mIU/L QnOrde red By: Miguel Ángel Liao on 08-27-2024 Thyroid Stimulating Hormone (TSH) 1.320 uIU/mL 0.300-4.200 [facility] TSH Qn 1.320 uIU/mL 0.300-4.200 [facility] Thyroid Stim Hormone (TSH)on 08-27-2024 TSH 1.320 uIU/mL Normal 0.300-4.200 [facility] Comment on above: Performed By: #### L 501.9520 #### [facility] [address] [place], [place], [id number] Total carbon dioxide measure mentOrdered By: Miguel Ángel Liao on 08-27-2024 Blood Gas Total CO2 34 mmol/L [facility] CO2 [Moles/Vol] 34 mmol/L [facility] Troponin T.cardiac High sens itivity method [Mass/Vol]Ordered By: Miguel Ángel Liao on 08-27-2024 Troponin T High Sensitivity 4 Hour 18 ng/L <22 [facility] Troponin T High Sensitivity 2 Hour 33 ng/L High <22 [facility] Troponin T.cardiac [Mass/vol ume] in Serum or Plasma by High sensitivity methodOrdered By: Miguel Ángel Liao on 08-27-2024 Troponin T.cardiac High sensitivity method [Mass/Vol] 18 ng/L <22 [facility] Troponin T.cardiac High sensitivity method [Mass/Vol] 33 ng/L High <22 [facility] Urine Drug Screen (VISTA)on 08-27-2024 AMPHETAMINES Positive Normal <1000 ng/mL [facility] Comment on above: Result Comment: If c onfirmation testing is needed, a separate order will be required to send out testing to the reference laboratory. Performed By: #### L 505.5000 #### [facility] [address] [place] [address] BARBITIURATES Negative Normal < 200 ng/mL [facility] Comment on above: Performed By: #### L 505.5000 #### [facility] [address] [place] [address] BENZODIAZIPINE Negative Normal < 200 ng/mL [facility] Comment on above: Performed By: #### L 505.5000 #### [facility] [address] [place] [address] BUP Ur Drug Scr Negative Normal < 200 ng/mL [facility] Comment on above: Performed By: #### L 505.5000 #### [facility] [address] [place], [address] COCAINE Negative Normal < 300 ng/mL [facility] Comment on above: Performed By: #### L 505.5000 #### [facility] [address] [place] [id number] Fentanyl Negative Normal [facility] Comment on above: Performed By: #### L 505.5000 #### [facility] [address] [place] [id number] METHADONE Negative Normal < 300 ng/mL [facility] Comment on above: Performed By: #### L 505.5000 #### [facility] [address] [place], [place], [address] OPIATES Negative Normal < 300 ng/mL [facility] Comment on above: Performed By: #### L 505.5000 #### [facility] [address] [place], [place], [address] OXYCODONE Negative Normal < 100 ng/mL [facility] Comment on above: Performed By: #### L 505.5000 #### [facility] [address] [place], [place], [address] PCP Negative Normal < 25 ng/mL [facility] Comment on above: Performed By: #### L 505.5000 #### [facility] [address] [place], [place], [address] THC Negative Normal < 50 ng/mL [facility] Comment on above: Performed By: #### L 505.5000 #### [facility] [address] [place], [address] Urine benzodiazepine levelOr dered By: Miguel Ángel Liao on 08-27-2024 Benzodiazepines Ql (U) Negative < 200 ng/mL [facility] Urine cocaine levelOrdered B y: Miguel Ángel Liao on 08-27-2024 Cocaine Ql (U) Negative < 300 ng/mL [facility] Urine rhear-8-podjzpjnhrkcde abinol (THC) measurementOrdered By: Miguel Ángel Liao on 08-27-2024 Cannabinoids Screen Ql (U) Negative < 50 ng/mL [facility] Urine phencyclidine (PCP) de tectionOrdered By: Miguel Ángel Liao on 08-27-2024 Phencyclidine Ql (U) Negative < 25 ng/mL [facility] Venous blood ammonia measure mentOrdered By: Miguel Ángel Liao on 08-27-2024 Ammonia (P) [Moles/Vol] 38.6 umol/L 16-60 [facility] White blood cell (WBC) count Ordered By: Miguel Ángel Liao on 08-27-2024 WBC (Bld) [#/Vol] 4.5 10*3/uL 4.4-11.0 [facility] aPTT Coag (PPP) [Time]Ordere d By: Miguel Ángel Liao on 08-27-2024 aPTT Coag (Bld) [Time] 31.6 s 24.1-36.2 [facility] fentaNYL Screen Ql (U)Ordere d By: Miguel Ángel Liao on 08-27-2024 Urine Fentanyl Screen Negative [facility] pH (Unsp spec)Ordered By: Chris Liao on 08-27-2024 Blood Gas pH 7.38 7.35-7.45 [facility] Pulmonary Visit Reporton Pulmonary Visit Report [facility] [place] [address] [place] [address] OFFICE VISIT Date of Service: 07/27/24 MR#: [id number] Acct: [id number] Name: ELIUD BLOUNT Rep #: [id number] : 1960 Provider: Nicki Pantoja NP Age/Sex: 63/M Location: [facility] Status: Signed Assessment and Plan Assessment and [...] able to (more content not included)... Normal [facility] Orthopedic Visit Reporton Orthopedic Visit Report [facility] [address] [place] [address] OFFICE VISIT Date of Service: 07/12/24 MR#: [id number] Acct: [id number] Name: ELIUD BLOUNT Rep #: [id number] : 1960 Provider: Dr. Erick Hernández MD Age/Sex: 63/M Location: [facility] Status: Signed Intake Vital Signs 07/02/24 08:40 [...] by me, Dr. Erick Hernández MD 07/12/24 9035. 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 He said this [...] the cervical spine. (more content not included)... [facility] CNOVon 07-08-2024 CNOV Office Visit (UCWSTR ) ELIUD BLOUNT ([id number]) 1960 M Date Time Provider Department 07/08/24 2:45 PM JACKY FERRERA [facility] During your visit today, we recorded the following information about you: Temperature Pulse Respiration Blood pressure 98.4 degrees 93/minute 20/minute 131/80 Weight 60 kg Jacky Ferrera APRN.DIRECTOR OF PROPERTY MANAGEMENT 07/08/2024 4:04 PM Signed Subjective HPI Nontoxic-appearing male presents urgent care chief complaint cough chest congestion sinus pressure. Duration of symptom 1 to 2 months. Associated symptoms listed above. Presents today for evaluation. States history of COPD. Hooker Inspector recommended using Mucinex. This is not helped. [...] YRS/> REDUCIBLE simple ALLERGIES Day-Nite Severe Cold-Flu [Hwwndyx-Rj-Ou-Acetam inophen-Gg], Dextromethorphan, Doxylamine, Pseudoephedrine, Sertraline, Zoloft [Sertraline Hcl], Baclofen, and Nyquil [Rdpzsopgi-Cbr-In-Deric taminophen] MEDICATIONS fluticasone (FLONASE) 50 mcg/actuation nasal [...] Systems Constitutional: (more content not included)... Normal [facility] XR CHEST 2V FRONTAL/LATon XR CHEST [...] Findings very similar to the previous study. Girls Swimming Coach: KEVEN Transcribe Date/Time: Jul 08 2024 3:51P Dictated by : ANTONY HUSTON DO This examination was interpreted and the report reviewed and electronically signed by: ANTONY HUSTON DO on Jul 08 2024 3:52PM EST [id number] Normal [facility] XR Chest PA and Lateralon IMPRESSION: Findings very similar to the previous study. Girls Swimming Coach: PSCB Transcribe Date/Time: Jul 08 2024 3:51P Dictated [...] RADIOLOGY Provider, [facility] - 07/08/2024 * * *Final Report* * [...] Findings very similar to the previous study. Girls Swimming Coach: KEVEN Transcribe Date/Time: Jul 08 2024 3:51P Dictated by : ANTONY HUSTON DO This examination was interpreted and the report reviewed and electronically signed by: ANTONY HUSTON DO on Jul 08 2024 3:52PM EST [facility] Radiology Study observation (narrative) [facility] XR Chest PA and LateralOrder ed By: [facility]cf Provider on 07-08-2024 [facility] 6 Minute Walk Teston 025 6 Minute Walk Test y [facility]Neurology [address] [place] [address] MR#: [id number] Acct: [id number] Name: ELIUD BLOUNT Rep #: [id number] : 1960 63 From: Rock Dick DO Referring Dr: Tammy Stone RESEARCH ASST RESEARCH ASST-C Status: REG CLI Location: PSN Date: Sex: M C PSN 6 Minute Walk Test 6 Minute Walk Test 6 Minute Walk Test: 6 Minute Walk Test PSN:6-Minute Walk Test Start: 07/02/24 08:40 Freq: Status: Active Protocol: RESP.6MINW Document 07/02/24 08:40 SFENTON (Rec: 07/02/24 08:49 SFENTON [id number]) 6 Minute Walk Test Date Performed 07/02/24 Time Performed 08:30 Height 5 ft 8 in Weight: 120 lb Weight in Pounds 120.[address]: Tammy Stone RESEARCH ASST Assistive device used: None Pre-test Oxygen Delivery [...] CC: Date Dictated: 07/05/248 Date Transcribed: 07/05/241027 Girls Swimming Coach: Dr. Rock Dick, Signed Normal [facility] Spine Cervical (Routine)on 0 07-05-2024 Spine Cervical (Routine) [facility] Imaging Services [address] [address] Spine Cervical (Routine) MR#: [id number] Acct: [id number] Name: ELIUD BLOUNT Rep #: [id number] : 1960 M 63 From: Jacky Real MD PCP: Dr. Priscilla Arndt MD Status: REG CLI Study: Spine Cervical (Routine) Date of Exam: Exam# [id number] Ordering Dr: Erick Hernández MD [id number] STUDY: MRI CERVICAL SPINE WITHOUT CONTRAST REASON [...] 21:59 EST Reading Location ID and State: [address] [place] [address] Tel , Service support , CC: Dr. Erick Hernández MD; Dr. Priscilla Arndt MD Girls Swimming Coach: Signed Normal [facility] Low Dose CT Lung Screeningon 07-02-[address] Lung Screening [facility] Imaging Services [address] [place] [id number] Lung Screening MR#: [id number] Acct: [id number] Name: ELIUD BLOUNT Rep #: [id number] : 1960 M 63 From: Bijan lopez MD PCP: Dr. Priscilla Arndt MD Status: REG [facility] Study: Low Dose CT Lung Screening Date of Exam: 07/02 Exam# [id number] Ordering Dr: Tammy Stone NP RESEARCH ASST-C [id number] STUDY: LOW DOSE CT LUNG CANCER SCREENING [...] 15:00 EST , CC: SANDRA Stone; Dr. Priscilla Arndt MD Girls Swimming Coach: Signed Normal [facility] Pulmonary Visit Reporton Pulmonary Visit Report [facility] [place] [address] [place] [address] OFFICE VISIT Date of Service: 06/14/24 MR#: [id number] Acct: [id number] Name: ELIUD BLOUNT Rep #: [id number] : 1960 Provider: SANDRA Stone Age/Sex: 63/M Location: [facility] Status: Signed Assessment and Plan Assessment and [...] 114/74 Blood Press (more content not included)... [facility] 06-11-2024 [facility] Telephone (INTMWS) ELIUD BLOUNT ([id number]) 1960 M Date Time Provider Department 06/11/24 PRISCILLA ARNDT INTWS During your visit today, we recorded the following information about you: Elise Proctor RN 06/11/2024 5:26 PM Signed Idris from [facility] calling and states they are now pt's pharmacy and he is requesting refills from [facility] for pt's Prednisone and Doxycycline. Explained to Idris that [facility] does not order usp prescriptions and is not pt's PCP. Also explained that Prednisone and Doxycycline are not terminal clerk meds. Pt would not be receiving these meds from his mail order pharmacy. Also noted that pt does not have [facility] down as his pharmacy. Called and spoke with pt about all of the above. Pt states that yes he is going to start using [facility] and keep [facility] as his local pharmacy. In talking with pt, he states he is still having some URI symptoms and sinus issues. Was last seen in [facility] on 05/19/24 and was prescribed Prednisone, Doxycycline [...] it and was in the icu NYQUIL (ZZHAOLPDM-MIC-TK-DERIC TAMIN*07/08/2007 5 - Intolerance Date Reviewed: 05/19/2024 [...] NOS [E55.9] 04/30/2007 Rotator cuff dis NEC [DGR2577] 05/20/2007 08/07/2010 Brachial neuritis or radiculitis NOS [...] depres*10/13/2015 Toba (more content not included)... Normal [facility] Orthopedic Visit Reporton Orthopedic Visit Report [facility] [address] [place] [address] [address] [place] [address] OFFICE VISIT Date of Service: 05/27/24 MR#: [id number] Acct: [id number] Name: ELIUD BLOUNT Rep #: [id number] : 1960 Provider: Dr. Erick Hernández MD Age/Sex: 63/M Location: [facility] Status: Signed Intake Vital Signs 03/29/24 11:15 [...] by me, Dr. Erick Hernández MD 05/27/24 2362. 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 He said this [...] upper extremity shows grade 4 - finger air brake man, grade 3 wrist extension, grade 4 biceps triceps and abduction on the right upper e xtremity, grade 4+ strength throughout left upper (more content not included)... [facility]UCW[facility] ) ELIUD BLOUNT ([id number]) 1960 M Date Time Provider Department 05/19/24 5:30 PM VICTORINO PARSONS [facility] During your visit today, we recorded the following information about you: Temperature Pulse Respiration Blood pressure 97.8 degrees 96/minute 18/minute 142/80 Weight 57 kg Victorino Parsons, NAZANIN.DIRECTOR OF PROPERTY MANAGEMENT 05/19/2024 5:19 PM Signed Subjective Cough Associated [...] YRS/> REDUCIBLE simple ALLERGIES Day-Nite Severe Cold-Flu [Jbbfqje-Oh-Wq-Acetam inophen-Gg], Dextromethorphan, Doxylamine, Pseudoephedrine, Sertraline, Zoloft [Sertraline Hcl], Baclofen, and Nyquil [Nrmdiqgmb-Xko-Lm-Deric taminophen] MEDICATIONS amitriptyline (ELAVIL) 100 mg tablet [...] 5 days. (more content not included)... Normal [facility] CBC W/Diff, Automatedon 10- Absolute Lymph 3.24 X10 3/uL Normal 0.83-4.51 [facility] Comment on above: Performed By: #### L 300.3900, L100.0100, L500.4050, L500.4100 ####[facility] [address] [place], [address] Absolute Neut 3.4 X10 3/uL Normal 2.0-7.7 [facility] Comment on above: Performed By: #### L 300.3900, L100.0100, L500.4050, L500.4100 ####[facility] [address] [place], [address] Basophils/100 WBC (Bld) 0.7 % Normal 0-1 [facility] Comment on above: Performed By: #### L 300.3900, L100.0100, L500.4050, L500.4100 ####[facility] [address] [place], [address] Eosinophils/100 WBC (Bld) 2.1 % Normal 0-5 [facility] Comment on above: Performed By: #### L 300.3900, L100.0100, L500.4050, L500.4100 ####[facility] [address] [place], [address] Erythrocyte distribution width (RBC) [Ratio] 13.6 % Normal 11.6-14.6 [facility] Comment on above: Performed By: #### L 300.3900, L100.0100, L500.4050, L500.4100 ####[facility] [address] [place], [address] Hematocrit (Bld) [Volume fraction] 43.6 % Normal 40-54 [facility] Comment on above: Performed By: #### L 300.3900, L100.0100, L500.4050, L500.4100 ####[facility] [address] [place], [address] Hemoglobin (Bld) [Mass/Vol] 14.2 g/dL Normal 13.0-16.5 [facility] Comment on above: Performed By: #### L 300.3900, L100.0100, L500.4050, L500.4100 ####[facility] [address] [place], [address] IG% 0.300 Normal 0.0-0.9 [facility] Comment on above: Result Comment: IG% - Immature Granulocytes (promyelocytes, myelocytes and metamyelocytes) > 1% indicates that a LEFT SHIFT is Present. Performed By: #### L 300.3900, L100.0100, L500.4050, L500.4100 ####[facility] [address] [place], [address] Lymphocytes/100 WBC (Bld) 44.4 % High 19-41 [facility] Comment on above: Performed By: #### L 300.3900, L100.0100, L500.4050, L500.4100 ####[facility] [address] [place], [address] MCH (RBC) [Entitic mass] 30.3 pg Normal 27.0-32.0 [facility] Comment on above: Performed By: #### L 300.3900, L100.0100, L500.4050, L500.4100 ####[facility] [address] [place], [address] MCHC (RBC) [Mass/Vol] 32.6 g/dL Normal 32-36 [facility] Comment on above: Performed By: #### L 300.3900, L100.0100, L500.4050, L500.4100 ####[facility] [address] [place], [address] MCV (RBC) [Entitic vol] 93.0 fL Normal 80-94 [facility] Comment on above: Performed By: #### L 300.3900, L100.0100, L500.4050, L500.4100 ####[facility] [address] [place], [address] Monocytes/100 WBC (Bld) 5.8 % Normal 0-10 [facility] Comment on above: Performed By: #### L 300.3900, L100.0100, L500.4050, L500.4100 ####[facility] [address] [place], [address] Neutrophils/100 WBC (Bld) 46.7 % Low 47-70 [facility] Comment on above: Performed By: #### L 300.3900, L100.0100, L500.4050, L500.4100 ####[facility] [address] [place], [address] Nucleated RBC (Bld) [#/Vol] 0 10*3/uL Normal 0-5 [facility] Comment on above: Performed By: #### L 300.3900, L100.0100, L500.4050, L500.4100 ####[facility] [address] [place], [address] Platelet mean volume (Bld) [Entitic vol] 8.8 fL Normal 6.2-12.0 [facility] Comment on above: Performed By: #### L 300.3900, L100.0100, L500.4050, L500.4100 ####[facility] [address] [place], [address] Platelets (Bld) [#/Vol] 354 10*3/uL Normal 150-450 [facility] Comment on above: Performed By: #### L 300.3900, L100.0100, L500.4050, L500.4100 ####[facility] [address] [place], [address] RBC (Bld) [#/Vol] 4.69 10*6/uL Normal 4.6-6.2 [facility] Comment on above: Performed By: #### L 300.3900, L100.0100, L500.4050, L500.4100 ####[facility] [address] [place], [address] RDW SD 45.6 fl High 35.1-43.9 [facility] Comment on above: Performed By: #### L 300.3900, L100.0100, L500.4050, L500.4100 ####[facility] [address] [place], [address] WBC (Bld) [#/Vol] 7.3 10*3/uL Normal 4.4-11.0 [facility] Comment on above: Performed By: #### L 300.3900, L100.0100, L500.4050, L500.4100 ####[facility] [address] [place], [address] Comprehensive Metabolic Prof ilon 03-29-2024 Albumin [Mass/Vol] 2.8 g/dL Low 3.2-5.0 [facility] Comment on above: Order Comment: Comme nts: NPO at [place] prior to lipid panel Performed By: #### L 300.3900, L100.0100, L500.4050, L500.4100 ####[facility] [address] [place], [address] Albumin/Globulin [Mass ratio] 0.9 {ratio} Normal 0.9-2.4 [facility] Comment on above: Order Comment: Comme nts: NPO at [place] prior to lipid panel Performed By: #### L 300.3900, L100.0100, L500.4050, L500.4100 ####[facility] [address] [place], [address] ALK P 81 U/L Normal 45-117 [facility] Comment on above: Order Comment: Comme nts: NPO at [place] prior to lipid panel Performed By: #### L 300.3900, L100.0100, L500.4050, L500.4100 ####[facility] [address] [place], [address] ALT [Catalytic activity/Vol] 13 U/L Low 16-61 [facility] Comment on above: Order Comment: Comme nts: NPO at [place] prior to lipid panel Performed By: #### L 300.3900, L100.0100, L500.4050, L500.4100 ####[facility] [address] [place], [address] AST [Catalytic activity/Vol] 9 U/L Low 15-37 [facility] Comment on above: Order Comment: Comme nts: NPO at [place] prior to lipid panel Performed By: #### L 300.3900, L100.0100, L500.4050, L500.4100 ####[facility] [address] [place], [address] Bilirubin [Mass/Vol] 0.40 mg/dL Normal 0.20-1.00 [facility] Comment on above: Order Comment: Comme nts: NPO at [place] prior to lipid panel Result Comment: For patients on eltrombopag therapy, use of Dimension Casey TBIL is not recommended. Performed By: #### L 300.3900, L100.0100, L500.4050, L500.4100 ####[facility] [address] [place], [address] BUN/CRE 24.6 RATIO High 10-20 [facility] Comment on above: Order Comment: Comme nts: NPO at MN prior to lipid panel Performed By: #### L 300.3900, L100.0100, L500.4050, L500.4100 ####[facility] [address] [place], [address] CA,Total 8.9 mg/dL Normal 8.5-10.1 [facility] Comment on above: Order Comment: Comme nts: NPO at MN prior to lipid panel Performed By: #### L 300.3900, L100.0100, L500.4050, L500.4100 ####[facility] [address] [place], [address] Chloride [Moles/Vol] 101 mmol/L Normal 98-107 [facility] Comment on above: Order Comment: Comme nts: NPO at MN prior to lipid panel Performed By: #### L 300.3900, L100.0100, L500.4050, L500.4100 ####[facility] [address] [place], [address] CO2 [Moles/Vol] 30.0 mmol/L Normal 21.0-32.0 [facility] Comment on above: Order Comment: Comme nts: NPO at MN prior to lipid panel Performed By: #### L 300.3900, L100.0100, L500.4050, L500.4100 ####[facility] [address] [place], [address] Creatinine [Mass/Vol] 0.49 mg/dL Low 0.70-1.30 [facility] Comment on above: Order Comment: Comme nts: NPO at [place] prior to lipid panel Result Comment: The validity of the calculated GFR GFRAA in patients over 70 years has not been determined. Clinical correlation is essential. Performed By: #### L 300.3900, L100.0100, L500.4050, L500.4100 ####[facility] [address] [place], [address] ECRCL 124.05 ml/min Normal [facility] Comment on above: Order Comment: Comme nts: NPO at [place] prior to lipid panel Performed By: #### L 300.3900, L100.0100, L500.4050, L500.4100 ####[facility] [address] [place], [address] EST GFR - AA 223 mL/min Normal >60 [facility] Comment on above: Order Comment: Comme nts: NPO at [place] prior to lipid panel Result Comment: Afri can [place] GFR Calc Performed By: #### L 300.3900, L100.0100, L500.4050, L500.4100 ####[facility] [address] [place], [address] GAP 5 Normal 5-15 [facility] Comment on above: Order Comment: Comme nts: NPO at MN prior to lipid panel Performed By: #### L 300.3900, L100.0100, L500.4050, L500.4100 ####[facility] [address] [place], [address] GFR/1.73 sq M.predicted among non-blacks MDRD (S/P/Bld) [Vol rate/Area] 185 mL/min/{1.73_m2} Normal >60 [facility] Comment on above: Order Comment: Comme nts: NPO at MN prior to lipid panel Result Comment: Non- GFR Calc Performed By: #### L 300.3900, L100.0100, L500.4050, L500.4100 ####[facility] [address] [place], [address] Globulin (S) [Mass/Vol] 3.0 g/dL Normal 2.2-4.2 [facility] Comment on above: Order Comment: Comme nts: NPO at MN prior to lipid panel Performed By: #### L 300.3900, L100.0100, L500.4050, L500.4100 ####[facility] [address] [place], [address] Glucose [Mass/Vol] 80 mg/dL Normal 74-106 [facility] Comment on above: Order Comment: Comme nts: NPO at MN prior to lipid panel Performed By: #### L 300.3900, L100.0100, L500.4050, L500.4100 ####[facility] [address] [place], [address] Potassium [Moles/Vol] 4.0 mmol/L Normal 3.5-5.1 [facility] Comment on above: Order Comment: Comme nts: NPO at MN prior to lipid panel Performed By: #### L 300.3900, L100.0100, L500.4050, L500.4100 ####[facility] [address] [place], [address] Sodium [Moles/Vol] 136 mmol/L Normal 136-145 [facility] Comment on above: Order Comment: Comme nts: NPO at MN prior to lipid panel Performed By: #### L 300.3900, L100.0100, L500.4050, L500.4100 ####[facility] [address] [place], [address] T PROT 5.8 g/dL Low 6.4-8.2 [facility] Comment on above: Order Comment: Comme nts: NPO at MN prior to lipid panel Performed By: #### L 300.3900, L100.0100, L500.4050, L500.4100 ####[facility] [address] [place], [address] Urea nitrogen [Mass/Vol] 12 mg/dL Normal 7-18 [facility] Comment on above: Order Comment: Comme nts: NPO at MN prior to lipid panel Performed By: #### L 300.3900, L100.0100, L500.4050, L500.4100 ####[facility] [address] [place], [address] Lipid Profileon 03-29-2024 Cholesterol [Mass/Vol] 125 mg/dL Normal 200 [facility] Comment on above: Order Comment: Comme nts: NPO at MN prior to lipid panel Result Comment: <200 mg/dL Desirable 200-240 mg/dL Borderline >240 mg/dL High Risk Performed By: #### L 300.3900, L100.0100, L500.4050, L500.4100 ####[facility] [address] [place], [address] Cholesterol in HDL [Mass/Vol] 47 mg/dL Normal [facility] Comment on above: Order Comment: Comme nts: NPO at [place] prior to lipid panel Result Comment: The drugs N-Acetylcysteine and Metamizole may falsely depress this assay. Reference Range HDL <40 mg/dL Low HDL Cholesterol HDL >or= 60 mg/dL High HDL Cholesterol Performed By: #### L 300.3900, L100.0100, L500.4050, L500.4100 ####[facility] [address] [place], [address] Cholesterol in LDL [Mass/Vol] 62 mg/dL Normal 0-130 [facility] Comment on above: Order Comment: Comme nts: NPO at MN prior to lipid panel Performed By: #### L 300.3900, L100.0100, L500.4050, L500.4100 ####[facility] [address] [place], [address] Cholesterol in VLDL [Mass/Vol] 16 mg/dL Normal 5-40 [facility] Comment on above: Order Comment: Comme nts: NPO at [place] prior to lipid panel Performed By: #### L 300.3900, L100.0100, L500.4050, L500.4100 ####[facility] [address] [place], [address] Triglyceride [Mass/Vol] 78 mg/dL Normal [facility] Comment on above: Order Comment: Comme nts: NPO at [place] prior to lipid panel Result Comment: The drugs N-Acetylcysteine and Metamizole may falsely depress this assay. Serum Triglycerides Reference Interval Normal <150 mg/dL Borderline high 150 - 199 mg/dL High 200 - 499 mg/dL Very High > or = 500 mg/dL Performed By: #### L 300.3900, L100.0100, L500.4050, L500.4100 ####[facility] [address] [place], [address] MR/CON.PCM.NEon 03-29-2024 MR/CON.PCM.NE [facility] Medical Records Department [address] [place] [address] Consultation - Neurology 03/29/24 1458 MR#: [id number] Acct: [id number] Name: ELIUD BLOUNT Basim Rep #: [id number] : 1960 63 From: Crow Barrera MD PCP: Dr. Priscilla Arndt MD Status:ADM TEX Location: [place] [address] Assessment and Plan: Neuro Assessment/Plan 63 y/o [...] statin. Follow up MRI Brain and TTE. 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 If MRI brain is negative, then consider [...] get a runny nose. ROS otherwise negative [facility] Medical History (Updated 03/28/24 @ 17:15 by [...] 108 117 (more content not included)... Normal [facility] Prothrombin Time w/INRon INR Coag (PPP) [Relative time] 1.1 {INR} Normal [facility] Comment on above: Performed By: #### L 300.3900, L100.0100, L500.4050, L500.4100 ####[facility] [address] [place], [address] PT Coag (PPP) [Time] 14.4 s Normal 11.7-14.9 [facility] Comment on above: Performed By: #### L 300.3900, L100.0100, L500.4050, L500.4100 ####[facility] [address] [place], [address] 12 Lead EKGon 03-28-2024 12 Lead EKG [facility] Services [address] [address] 12 Lead EKG 03/28/24 1539 MR#: [id number] Acct: [id number] Name: ELIUD BLOUNT Rep #: [id number] : 1960 63 From: Salazar Gregorio MD Attending Dr: Dr. Calvin Pedro MD Status: DIS TEX Ordering Dr: Raleigh Hernandez DO Date: 03/28/24 Location: [facility] Sex: M C Admitted: 03/28/24 Test Reason : Blood Pressure : / mmHG Vent. Rate : 074 BPM Atrial Rate : 074 BPM P-R Int : 116 ms QRS Dur : 094 ms QT Int : 392 ms P-R-T Axes : 068 091 075 degrees QTc Int : 435 ms Normal sinus rhythm Rightward axis Borderline ECG Confirmed by Salazar Gregorio ([id number]), primer expeditor and drier MEG MULLINS ([id number]) on 03/30/2024 7:52:50 AM Referred By: Confirmed By:Salazar Gregorio 03/30/24 0752 Date Salazar Gregorio MD CC: Dr. Priscilla Arndt MD; Dr. Calvin Pedro MD; Dr. Raleigh Hernandez DO Signed Normal [facility] Basic Metabolic Profile (BMP )on 03-28-2024 BUN/CRE 19.0 RATIO Normal 10-20 [facility] Comment on above: Order Comment: 'TROP ' Serial specimen #1, #2 or #3: 1 Performed By: #### L 100.0100, L300.3900, L300.4310, L500.2500, L501.4020 ####[facility] [address] [place], [address] CA,Total 9.1 mg/dL Normal 8.5-10.1 [facility] Comment on above: Order Comment: 'TROP ' Serial specimen #1, #2 or #3: 1 Performed By: #### L 100.0100, L300.3900, L300.4310, L500.2500, L501.4020 ####[facility] [address] [place], [address] Chloride [Moles/Vol] 98 mmol/L Normal 98-107 [facility] Comment on above: Order Comment: 'TROP ' Serial specimen #1, #2 or #3: 1 Performed By: #### L 100.0100, L300.3900, L300.4310, L500.2500, L501.4020 ####[facility] [address] [place], [address] CO2 [Moles/Vol] 33.0 mmol/L High 21.0-32.0 [facility] Comment on above: Order Comment: 'TROP ' Serial specimen #1, #2 or #3: 1 Performed By: #### L 100.0100, L300.3900, L300.4310, L500.2500, L501.4020 ####[facility] [address] [place], [address] Creatinine [Mass/Vol] 0.63 mg/dL Low 0.70-1.30 [facility] Comment on above: Order Comment: 'TROP ' Serial specimen #1, #2 or #3: 1 Result Comment: The validity of the calculated GFR GFRAA in patients over 70 years has not been determined. Clinical correlation is essential. Performed By: #### L 100.0100, L300.3900, L300.4310, L500.2500, L501.4020 ####[facility] [address] [place], [address] ECRCL 95.19 ml/min Normal [facility] Comment on above: Order Comment: 'TROP ' Serial specimen #1, #2 or #3: 1 Performed By: #### L 100.0100, L300.3900, L300.4310, L500.2500, L501.4020 ####[facility] [address] [place], [address] EST GFR - AA 166 mL/min Normal >60 [facility] Comment on above: Order Comment: 'TROP ' Serial specimen #1, #2 or #3: 1 Result Comment: Afri can [place] GFR Calc Performed By: #### L 100.0100, L300.3900, L300.4310, L500.2500, L501.4020 ####[facility] [address] [place], [address] GAP 5 Normal 5-15 [facility] Comment on above: Order Comment: 'TROP ' Serial specimen #1, #2 or #3: 1 Performed By: #### L 100.0100, L300.3900, L300.4310, L500.2500, L501.4020 ####[facility] [address] [place], [address] GFR/1.73 sq M.predicted among non-blacks MDRD (S/P/Bld) [Vol rate/Area] 137 mL/min/{1.73_m2} Normal >60 [facility] Comment on above: Order Comment: 'TROP ' Serial specimen #1, #2 or #3: 1 Result Comment: Non- GFR Calc Performed By: #### L 100.0100, L300.3900, L300.4310, L500.2500, L501.4020 ####[facility] [address] [place], [address] Glucose [Mass/Vol] 88 mg/dL Normal 74-106 [facility] Comment on above: Order Comment: 'TROP ' Serial specimen #1, #2 or #3: 1 Performed By: #### L 100.0100, L300.3900, L300.4310, L500.2500, L501.4020 ####[facility] [address] [place], [address] Potassium [Moles/Vol] 3.5 mmol/L Normal 3.5-5.1 [facility] Comment on above: Order Comment: 'TROP ' Serial specimen #1, #2 or #3: 1 Performed By: #### L 100.0100, L300.3900, L300.4310, L500.2500, L501.4020 ####[facility] [address] [place], [address] Sodium [Moles/Vol] 135 mmol/L Low 136-145 [facility] Comment on above: Order Comment: 'TROP ' Serial specimen #1, #2 or #3: 1 Performed By: #### L 100.0100, L300.3900, L300.4310, L500.2500, L501.4020 ####[facility] [address] [place], [address] Urea nitrogen [Mass/Vol] 12 mg/dL Normal 7-18 [facility] Comment on above: Order Comment: 'TROP ' Serial specimen #1, #2 or #3: 1 Performed By: #### L 100.0100, L300.3900, L300.4310, L500.2500, L501.4020 ####[facility] [address] [place], [address] Brain without Contraston Brain without Contrast [facility] Imaging Services [address] [place] [address] Brain without Contrast MR#: [id number] Acct: [id number] Name: ELIUD BLOUNT Rep #: [id number] : 1960 M 63 From: Miguel Ángel Davis MD PCP: Dr. Priscilla Arndt MD Status: ADM TEX Study: Brain without Contrast Date of Exam: 03/28/24 Exam# [id number] Ordering Dr: Becky Thomas MD [id number] EXAM: MR HEAD WITHOUT INTRAVENOUS CONTRAST CLINICAL [...] MD at 15:23 EDT , CC: Dr. Priscilla rAndt MD; Dr. 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 Priscilla Arndt MD Status: PRE ER Study: Brain/Head without Contrast Date of Exam: 03/16 09/06 Exam# [id number] Ordering Dr: Raleigh Hernandez DO [id number] EXAM: CT HEAD WITHOUT INTRAVENOUS CONTRAST CLINICAL [...] MD at 16:08 EDT , CC: Dr. Priscilla Arndt MD; Dr. Raleigh Hernandez DO Girls Swimming Coach: Signed Normal [facility] CBC W/Diff, Automatedon 03-16 Absolute Lymph 2.61 X10 3/uL Normal 0.83-4.51 [facility] Comment on above: Performed By: #### L 100.0100, L300.3900, L300.4310, L500.2500, L501.4020 ####[facility] [address] [place], [address] Absolute Neut 4.0 X10 3/uL Normal 2.0-7.7 [facility] Comment on above: Performed By: #### L 100.0100, L300.3900, L300.4310, L500.2500, L501.4020 ####[facility] [address] [place], [address] Basophils/100 WBC (Bld) 0.7 % Normal 0-1 [facility] Comment on above: Performed By: #### L 100.0100, L300.3900, L300.4310, L500.2500, L501.4020 ####[facility] [address] [place], [address] Eosinophils/100 WBC (Bld) 1.2 % Normal 0-5 [facility] Comment on above: Performed By: #### L 100.0100, L300.3900, L300.4310, L500.2500, L501.4020 ####[facility] [address] [place], [address] Erythrocyte distribution width (RBC) [Ratio] 13.4 % Normal 11.6-14.6 [facility] [facility] Comment on above: Performed By: #### L 100.0100, L300.3900, L300.4310, L500.2500, L501.4020 ####[facility] [address] [place], [address] Hematocrit (Bld) [Volume fraction] 45.9 % Normal 40-54 [facility] Comment on above: Performed By: #### L 100.0100, L300.3900, L300.4310, L500.2500, L501.4020 ####[facility] [address] [place], [address] Hemoglobin (Bld) [Mass/Vol] 14.7 g/dL Normal 13.0-16.5 [facility] Comment on above: Performed By: #### L 100.0100, L300.3900, L300.4310, L500.2500, L501.4020 ####[facility] [address] [place], [address] IG% 0.300 Normal 0.0-0.9 [facility] Comment on above: Result Comment: IG% - Immature Granulocytes (promyelocytes, myelocytes and metamyelocytes) > 1% indicates that a LEFT SHIFT is Present. Performed By: #### L 100.0100, L300.3900, L300.4310, L500.2500, L501.4020 ####[facility] [address] [place], [address] Lymphocytes/100 WBC (Bld) 35.9 % Normal 19-41 [facility] Comment on above: Performed By: #### L 100.0100, L300.3900, L300.4310, L500.2500, L501.4020 ####[facility] [address] [place], [address] MCH (RBC) [Entitic mass] 30.0 pg Normal 27.0-32.0 [facility] Comment on above: Performed By: #### L 100.0100, L300.3900, L300.4310, L500.2500, L501.4020 ####[facility] [address] [place], [address] MCHC (RBC) [Mass/Vol] 32.0 g/dL Normal 32-36 [facility] Comment on above: Performed By: #### L 100.0100, L300.3900, L300.4310, L500.2500, L501.4020 ####[facility] [address] [place], [address] MCV (RBC) [Entitic vol] 93.7 fL Normal 80-94 [facility] Comment on above: Performed By: #### L 100.0100, L300.3900, L300.4310, L500.2500, L501.4020 ####[facility] [address] [place], [address] Monocytes/100 WBC (Bld) 6.7 % Normal 0-10 [facility] Comment on above: Performed By: #### L 100.0100, L300.3900, L300.4310, L500.2500, L501.4020 ####[facility] [address] [place], [address] Neutrophils/100 WBC (Bld) 55.2 % Normal 47-70 [facility] Comment on above: Performed By: #### L 100.0100, L300.3900, L300.4310, L500.2500, L501.4020 ####[facility] [address] [place], [address] Nucleated RBC (Bld) [#/Vol] 0 10*3/uL Normal 0-5 [facility] Comment on above: Performed By: #### L 100.0100, L300.3900, L300.4310, L500.2500, L501.4020 ####[facility] [address] [place], [address] Platelet mean volume (Bld) [Entitic vol] 8.4 fL Normal 6.2-12.0 [facility] Comment on above: Performed By: #### L 100.0100, L300.3900, L300.4310, L500.2500, L501.4020 ####[facility] [address] [place], [address] Platelets (Bld) [#/Vol] 356 10*3/uL Normal 150-450 [facility] Comment on above: Performed By: #### L 100.0100, L300.3900, L300.4310, L500.2500, L501.4020 ####[facility] [address] [place], [address] RBC (Bld) [#/Vol] 4.90 10*6/uL Normal 4.6-6.2 [facility] Comment on above: Performed By: #### L 100.0100, L300.3900, L300.4310, L500.2500, L501.4020 ####[facility] [address] [place], [address] RDW SD 45.8 fl High 35.1-43.9 [facility] Comment on above: Performed By: #### L 100.0100, L300.3900, L300.4310, L500.2500, L501.4020 ####[facility] [address] [place], [address] WBC (Bld) [#/Vol] 7.3 10*3/uL Normal 4.4-11.0 [facility] Comment on above: Performed By: #### L 100.0100, L300.3900, L300.4310, L500.2500, L501.4020 ####[facility] [address] [place], [address] CNOVon 03-28-2024 CNOV Office Visit (UCWSTR ) ELIUD BLOUNT ([id number]) 1960 M Date Time Provider Department 03/28/24 2:45 PM VINITA LILLY [facility] During your visit today, we recorded the following information about you: Vinita Lilly APRN.DIRECTOR OF PROPERTY MANAGEMENT 03/28/2024 2:59 PM Signed Patient triaged at [...] it and was in the icu NYQUIL (JXGFRGWMN-TOS-IZ-DERIC TAMIN*07/08/2007 5 - Intolerance Date Reviewed: 02/22/2024 [...] NOS [E55.9] 04/30/2007 Rotator cuff dis NEC [[id number]] 05/20/2007 08/07/2010 Brachial neuritis or radiculitis NOS [...] Status:Closed by VINITA LILLY on 03/28/24 Normal [facility] CTA Head AND Neck W/ Contras ton 03-28-2024 CTA Head AND Neck W/ Contrast [facility] Services [address] [place], [place] [address] CTA Head AND Neck W/ Contrast MR#: [id number] Acct: [id number] Name: ELIUD BLOUNT Rep #: [id number] : 1960 M 63 From: Maurisio Dale PCP: Dr. Priscilla Arndt MD Status: ADM TEX Study: CTA Head AND Neck W/ Contrast Date of Exam: Exam# [id number] Ordering Dr: Becky Thomas MD [id number] EXAM: CT ANGIOGRAPHY HEAD AND NECK WITH INTRAVENOUS CONTRAST CLINICAL INDICATION: Neuro deficit, acute, stroke suspected TECHNIQUE: [place] [facility] [place]/head and neck CT angiography protocol [...] 3. Ther (more content not included)... Normal [facility] Chest 1 Viewon 03-28-2024 Chest 1 View [facility] Services [address] [place], [place] [address] Chest 1 View MR#: [id number] Acct: [id number] Name: ELIUD BLOUNT Rep #: [id number] : 1960 M 63 From: Maurisio Dale PCP: Dr. Priscilla Arndt MD Status: REG ER Study: Chest 1 View Date of Exam: 03/28/24 Exam# [id number] Ordering Dr: Raleigh Hernandez DO [id number] STUDY: XR Chest 1 View 03/28/2024 3:48 PM REASON FOR EXAM: Male, 63 years old. Neuro deficit, acute, stroke suspected COMPARISON: 5.7 TECHNIQUE: XR Chest 1 View FINDINGS: Chronic [...] 16:27 EDT Reading Location ID and State: [facility] / [place] , Service support , CC: Dr. Priscilla Arndt MD; Dr. Raleigh Hernandez DO Girls Swimming Coach: Signed Normal [facility] Echo Completeon 03-28-2024 Echo Complete [facility] [address] [place] [address] Echo Complete 03/29/24 1141 MR#: [id number] Acct: [id number] Name: ELIUD BLOUNT Rep #: [id number] : 1960 63 From: Johnny Xavier MD Attending Dr: Dr. Calvin Pedro MD Status: ADM TEX Ordering Dr: Becky Thomas MD Date: 03/28/24 Location: [facility] Sex: M C Admitted: 03/28/24 Reason For [...] dysfunction. Ordering Physician: Becky Thomas Referring Physician: PRISCILLA ARNDT Performed By: Padmini Carracso and Student 03/29/24 1342 Date Johnny Xavier MD CC: Dr. Priscilla Arndt MD; Dr. Calivn Pedro MD; Dr. Becky Thomas MD Date Dictated: 03/29/24 1141 Date Transcribed: 03/29/24 1342 Girls Swimming Coach: Signed Normal [facility] Emergency Department Summary on 03-28-2024 Emergency Department Summary [facility] Medical Records Department [address] [place] [address] Emergency Department Summary 03/28/24 MR#: [id number] Acct: [id number] Name: ELIUD BLOUNT Rep #: [id number] : 1960 63 From: Raleigh Mosley PCP: Dr. Priscilla Arndt MD Status:ADM TEX Location: [address] History of Present Illness Chief Complaint: Weakness [...] Method Room (more content not included)... Normal [facility] H AND P Exam - Hospitaliston 03-28-2024 H&P Exam - Hospitalist [facility] Medical Records Department [address] [place] [address] H P Exam - Hospitalist 03/28/24 1800 MR#: [id number] Acct: [id number] Name: ELIUD BLOUNT Rep #: [id number] : 1960 63 From: Becky Thomas MD PCP: Dr. Priscilla Arndt MD Status:REG ER Location: ED HPI - General General Date of Admission: 03/28/24 Date of Service: 03/28/24 Chief Complaint: R arm numbness and incoordination HPI Narrative ELIUD BLOUNT, is a 63 M with a history of absence seizure's, COPD, tobacco use who presented to [facility] ED 03/28/2024 with difficulty controlling his [...] get a runny nose. ROS otherwise negative [facility] Medical History (Updated 03/28/24 @ 17:15 by [...] Respiratory Pattern (more content not included)... Normal [facility] L501.4020on 03-28-2024 TROPONIN-I HS 6 pg/mL Normal 3.0-78.0 [facility] Comment on above: Order Comment: 'TROP ' Serial specimen #1, #2 or #3: 1 Result Comment: Sarah hickey Note: New Test Units and Gender Specific Reference Ranges. For more information see Policy Stat Procedure [facility] High Sensitivity Troponin (TNIH) and attachments. Performed By: #### L 100.0100, L300.3900, L300.4310, L500.2500, L501.4020 ####[facility] [address] [place], [address] Partial Thromboplast Timeon 03-28-2024 aPTT Coag (Bld) [Time] 30.4 s Normal 24.1-36.2 [facility] Comment on above: Performed By: #### L 100.0100, L300.3900, L300.4310, L500.2500, L501.4020 ####[facility] [address] [place], [address] Prothrombin Time w/INRon INR Coag (PPP) [Relative time] 1.1 {INR} Normal [facility] Comment on above: Performed By: #### L 100.0100, L300.3900, L300.4310, L500.2500, L501.4020 ####[facility] [address] [place], [address] PT Coag (PPP) [Time] 14.4 s Normal 11.7-14.9 [facility] Comment on above: Performed By: #### L 100.0100, L300.3900, L300.4310, L500.2500, L501.4020 ####[facility] [address] [place], [address] CNCOon 02-26-2024 CNCO Letter Text Normal [facility] CNCOon 02-23-2024 CNCO Letter Text Normal [facility] Abbey 02-23-2024 CNPN Telephone (WSTR) ELIUD BLOUNT ([id number]) 1960 M Date Time Provider Department 02/23/24 VINITA LILLY During your visit today, we recorded the following information about you: Vinita Lilly APRN.ASHOK 02/23/2024 7:21 AM Signed Please notify positive for covid. Is past treatment window for antiviral treatment and quarantine. Continue with plan of care as discussed during visit. Sumi Toledo MA 02/23/2024 8:24 AM Signed both [...] it and was in the icu NYQUIL (PXOCARKDK-GQE-DB-DERIC TAMIN*07/08/2007 5 - Intolerance Date Reviewed: 02/22/2024 [...] NOS [E55.9] 04/30/2007 Rotator cuff dis NEC [[id number]] 05/20/2007 08/07/2010 Brachial neuritis or radiculitis NOS [...] (HCC) [J4*10/15/2023 (more content not included)... Normal [facility] CNOVon 02-22-2024 CNOV Office Visit (UCWSTR ) ELIUD BLOUNT ([id number]) 1960 M Date Time Provider Department 02/22/24 2:30 PM XOCHILT CABRALES WSTR During your visit today, we recorded the following information about you: Temperature Pulse Respiration Blood pressure 97 degrees 93/minute 20/minute 111/74 Weight 53 kg Xochilt Cabrales, CENTRAL CONTROL ROOM OPERATOR.DIRECTOR OF PROPERTY MANAGEMENT 02/22/2024 2:51 PM Signed Subjective The history is provided by the patient. No american sign language interpreter was used. HPI Eliud Blount [...] No date: Chronic obstructive pulmonary disease (COPD) ([facility]) 07/29/2006: DEPRESSIVE DISORDER NEC No date: Diabetes ([facility]) 07/29/2006: Headache(784.0) No date: Hypertension No date: [...] have confirmed and edited as necessary, the [facility] Review of Systems Constitutional: Negative for chills [...] APRN.ASHOK Perez (more content not included)... Normal [facility] COVID AND INFLUENZA A/B AND RSV PCR, ROUTINEon 02-22-2024 SARS-CoV-2 (COVID-19) RNA SOLITARIO+probe Ql (Unsp spec) SARS-COV-2 (AGENT OF COVID-19) RNA: Detected INFLUENZA A RNA: Not detected INFLUENZA B RNA: Not detected RESPIRATORY SYNCYTIAL VIRUS (RSV) RNA: Not detected Abnormal [facility] Comment on above: Performed By: #### C VFS ####[facility] LABCLIA [id number] [address] [place] [facility] CNOVon 02-03-2024 CNOV Office Visit (UCWSTR ) ELIUD BLOUNT ([id number]) 1960 M Date Time Provider Department 02/03/24 2:15 PM LV HIDALGOWSTR During your visit today, we recorded the following information about you: Temperature Pulse Respiration Blood pressure 97.3 degrees 95/minute 22/minute 131/87 Weight 55 kg Lv Hidalgo APRN.DIRECTOR OF PROPERTY MANAGEMENT 02/03/2024 2:39 PM Signed Patient presents with: [...] that cause allergies) or sexually transmitted infections. [place] eye caused by bacteria, viruses, and sexually [...] vision increased sensitivity to light See your crate tier (a doctor trained to treat eye conditions) or family doctor if you have any of these persistent symptoms. Ear infections also commonly occur in children who have bacterial conjunctivitis. The crate tier will examine your eyes and possibly take [...] infection sh (more content not included)... Normal [facility] Absolute lymphocyte countOrd ered By: Fabricio Kwong on 10-21-2023 Lymphocytes Auto (Unsp spec) [#/Vol] 3.11 10*3/uL 0.83-4.51 [facility] Automated lymphocyte count a s percentage of total leukocytesOrdered By: Fabricio Kwong on 10-21-2023 Lymphocytes/100 WBC Auto (Unsp spec) 43.1 % 19-41 [facility] Basophil percentageOrdered B y: Fabricio Kwong on 10-21-2023 Basophils/100 WBC (Bld) 0.7 % 0-1 [facility] Chloride [Moles/Vol] 104 mmol/L 98-107 [facility] Eosinophils/100 WBC (Bld) 4.3 % 0-5 [facility] Glucose [Mass/Vol] 112 mg/dL 74-106 [facility] Comment on above: Fasting Glucose resu lt from 100 to 125 mg/dL suggests IMPAIRED HOMEOSTASIS per A.D.A. criteria. Hemoglobin (Bld) [Mass/Vol] 14.7 g/dL 13.0-16.5 [facility] Monocytes/100 WBC (Bld) 9.8 % 0-10 [facility] Neutrophils (Bld) [#/Vol] 3.0 10*3/uL 2.0-7.7 [facility] Neutrophils/100 WBC (Bld) 42.0 % 47-70 [facility] Potassium [Moles/Vol] 4.3 mmol/L 3.5-5.1 [facility] Sodium [Moles/Vol] 138 mmol/L 136-145 [facility] WBC (Bld) [#/Vol] 7.2 10*3/uL 4.4-11.0 [facility] Determination of erythrocyte mean corpuscular volume (MCV)Ordered By: Fabricio Kwong on 10-21-2023 MCV (RBC) [Entitic vol] 90.8 fL 80-94 [facility] Erythrocyte distribution wid th ratioOrdered By: Fabricio Kwong on 10-21-2023 Erythrocyte distribution width (RBC) [Ratio] 14.1 % 11.6-14.6 [facility] Erythrocyte distribution wid th standard deviationOrdered By: Fabricio Kwong on 10-21-2023 Erythrocyte distribution width (RBC) [Entitic vol] 47.3 fL 35.1-43.9 [facility] Hematocrit Auto (Bld) [Volum e fraction]Ordered By: Fabricio Kwong on 10-21-2023 Hematocrit (Bld) [Volume fraction] 45.4 % 40-54 [facility] Immature granulocytes/100 WB C Auto (Bld)Ordered By: Fabricio Kwong on 10-21-2023 Immature granulocytes/100 WBC (Bld) 0.100 % 0.0-0.9 [facility] Comment on above: IG% - Immature Granu locytes (promyelocytes, myelocytes and metamyelocytes) > 1% indicates that a LEFT SHIFT is Present. Laboratory - Chemistry and C hemistry - challengeOrdered By: Fabricio Kwong on 10-21-2023 CO2 [Moles/Vol] 29.0 mmol/L 21.0-32.0 [facility] Urea nitrogen/Creatinine [Mass ratio] 21.7 mg/mg 10-20 [facility] Laboratory - Hematology and Cell countsOrdered By: Fabricio Kwong on 10-21-2023 MCH (RBC) [Entitic mass] 29.4 pg 27.0-32.0 [facility] MCHC (RBC) [Mass/Vol] 32.4 g/dL 32-36 [facility] Nucleated RBC/100 WBC (Bld) [Ratio] 0 % 0-5 [facility] Platelet mean volume (Bld) [Entitic vol] 9.4 fL 6.2-12.0 [facility] Platelets (Bld) [#/Vol] 299 10*3/uL 150-450 [facility] No Panel InformationOrdered By: Fabricio Kwong on 10-21-2023 Estimated Creatinine Clearance Calc 106.06 ml/min [facility] Estimated GFR (MDRD) Amer 176 mL/min >60 [facility] Comment on above: GFR Calc Estimated GFR (MDRD) Non-Af Amer 146 mL/min >60 [facility] Comment on above: Non- GFR Calc Troponin I High Sensitivity 12 pg/mL 3.0-78.0 [facility] Comment on above: Please Note: New Gary t Units and Gender Specific Reference Ranges. For more information see Policy Stat Procedure [facility] High Sensitivity Troponin (TNIH) and attachments. RBC Auto (Bld) [#/Vol]Ordere d By: Fabricio Kwong on 10-21-2023 RBC (Bld) [#/Vol] 5.00 10*6/uL 4.6-6.2 [facility] Serum or plasma calcium tonio urement (mass/volume)Ordered By: Fabricio Kwong on 10-21-2023 Calcium [Mass/Vol] 8.6 mg/dL 8.5-10.1 [facility] Serum or plasma creatinine m easurement (mass/volume)Ordered By: Fabricio Kwong on 10-21-2023 Creatinine [Mass/Vol] 0.60 mg/dL 0.70-1.30 [facility] Comment on above: The validity of the calculated GFR & GFRAA in patients over 70 years has not been determined. Clinical correlation is essential. Serum or plasma urea nitroge n measurement (mass/volume)Ordered By: Fabricio Kwong on 10-21-2023 Urea nitrogen [Mass/Vol] 13 mg/dL 7-18 [facility] Thin prep Papanicolaou smear with manual screeningOrdered By: Fabricio Kwong on 10-21-2023 Thin prep Papanicolaou smear with manual screening 5 5-15 [facility] CBC W Auto Differential pane l (Bld)on 10-15-2023 Basophils (Bld) [#/Vol] 0.05 10*3/uL [facility] Basophils/100 WBC (Bld) 0.6 % [facility] Differential cell count method Nom (Bld) Auto [facility] Eosinophils (Bld) [#/Vol] 0.18 10*3/uL [facility] Eosinophils/100 WBC (Bld) 2.1 % [facility] Erythrocyte distribution width (RBC) [Ratio] 13.9 % 11.5 - 15.0 % [facility] Hematocrit (Bld) [Volume fraction] 47.2 % 39.0 - 51.0 % [facility] Hemoglobin (Bld) [Mass/Vol] 15.6 g/dL 13.0 - 17.0 g/dL [facility] Immature granulocytes (Bld) [#/Vol] 0.03 10*3/uL [facility] Immature granulocytes/100 WBC (Bld) 0.3 % [facility] Interpretation and review of laboratory results Abnormal [facility] Lymphocytes (Bld) [#/Vol] 3.34 10*3/uL [facility] Lymphocytes/100 WBC (Bld) 38.0 % [facility] MCH (RBC) [Entitic mass] 29.7 pg 26. 0 - 34.0 pg [facility] MCHC (RBC) [Mass/Vol] 33.1 g/dL 30.5 - 36.0 g/dL [facility] MCV (RBC) [Entitic vol] 89.9 fL 80.0 - 100.0 fL [facility] Monocytes (Bld) [#/Vol] 0.63 10*3/uL NINF [facility] Monocytes/100 WBC (Bld) 7.2 % [facility] Neutrophils (Bld) [#/Vol] 4.55 10*3/uL [facility] Neutrophils/100 WBC (Bld) 51.8 % [facility] Nucleated RBC (Bld) [#/Vol] NINF [facility] Nucleated RBC/100 WBC (Bld) [Ratio] 0.0 % /100 WBC [facility] Platelet mean volume (Bld) [Entitic vol] 8.6 fL Low 9.0 - 12.7 fL [facility] Platelets (Bld) [#/Vol] 337 10*3/uL [facility] RBC (Bld) [#/Vol] 5.25 10*6/uL 4.20 - 6.0 0 m/uL [facility] WBC (Bld) [#/Vol] 8.78 10*3/uL [facility] Comprehensive metabolic 2000 panelOrdered By: Lyly Olivarez on 10-15-2023 Albumin [Mass/Vol] 3.8 g/dL Low 3.9 - 4.9 g/dL [facility] ALP [Catalytic activity/Vol] 78 U/L 38 - 113 U/L [facility] ALT [Catalytic activity/Vol] 11 U/L 10 - 54 U/L [facility] Anion gap [Moles/Vol] 3 mmol/L Low 9 - 18 mmol/L [facility] AST [Catalytic activity/Vol] 11 U/L Low 14 - 40 U/L [facility] Bilirubin [Mass/Vol] 0.3 mg/dL 0.2 - 1 .3 mg/dL [facility] Calcium [Mass/Vol] 9.5 mg/dL 8.5 - 10. 2 mg/dL [facility] Chloride [Moles/Vol] 98 mmol/L 97 - 10 5 mmol/L [facility] CO2 [Moles/Vol] 35 mmol/L High 22 - 30 mmol/L [facility] Creatinine [Mass/Vol] 0.65 mg/dL Low 0.73 - 1.22 mg/dL [facility] GFR/1.73 sq M.predicted among non-blacks MDRD (S/P/Bld) [Vol rate/Area] 107 mL/min/{1.73_m2} - PINF [facility] Comment on above: Estimated Glomerular Filtration Rate [...] 118 mg/dL High 74 - 99 mg/dL [facility] Comment on above: The [place] Diab[employer] s Association (ADA) provides guidance for [...] Standards of Medical Care in Diabetes 2016, [place] [employer] Association. Diabetes Care. 2016.39(Suppl 1). Interpretation and review of laboratory results Abnormal [facility] Potassium [Moles/Vol] 4.0 mmol/L 3.7 - 5.1 mmol/L [facility] Protein [Mass/Vol] 6.0 g/dL Low 6.3 - 8.0 g/dL [facility] Sodium [Moles/Vol] 136 mmol/L 136 - 144 mmol/L [facility] Urea nitrogen [Mass/Vol] 11 mg/dL 9 - 24 mg/d L [facility] THYROID STIMULATING HORMONEo n 10-15-2023 TSH Qn 0.659 m[IU]/L [facility] TSH Qnon 10-15-2023 Interpretation and review of laboratory results Normal [facility] XR Chest PA and Lateralon IMPRESSION: 1. Hyperinflated lungs which may be related to underlying COPD. 2.Stable blunting of the right posterior lateral and left posterior costophrenic sulci, findings which may reflect chronic pleural thickening and/or trace chronic pleural effusions. Girls Swimming Coach: KEVEN Transcribe Date/Time: Oct 15 2023 10:58A Dictated by : STEPHANIE FITZGERALD MD This examination was interpreted and the report reviewed and electronically signed by: STEPHANIE FITZGERALD MD on Oct 15 2023 11:00AM [facility] DIVISION OF RADIOLOGY * * [...] Mild degenerative changes. DIVISION OF RADIOLOGY Provider, [facility] - 10/15/2023 * * *Final Report* * [...] pleural thickening and/or trace chronic pleural effusions. Girls Swimming Coach: KEVEN Transcribe Date/Time: Oct 15 2023 10:58A Dictated by : STEPHANIE FITZGERALD MD This examination was interpreted and the report reviewed and electronically signed by: STEPHANIE FITZGERALD MD on Oct 15 2023 11:00AM EST [facility] Radiology Study observation (narrative) [facility] XR Chest PA and LateralOrder ed By: [facility] Provider on 10-15-2023 [facility] CBC W Auto Differential pane l (Bld)on 03-05-2023 Basophils (Bld) [#/Vol] 0.04 10*3/uL <0.11 k/uL [facility] Basophils/100 WBC (Bld) 0.8 % [facility] Differential cell count method Nom (Bld) Auto [facility] Eosinophils (Bld) [#/Vol] 0.09 10*3/uL <0.46 k/uL [facility] Eosinophils/100 WBC (Bld) 1.8 % [facility] Erythrocyte distribution width (RBC) [Ratio] 16.6 % High 11.5 - 15.0 % [facility] Hematocrit (Bld) [Volume fraction] 39.8 % 39.0 - 51.0 % [facility] Hemoglobin (Bld) [Mass/Vol] 12.9 g/dL Low 13.0 - 17.0 g/dL [facility] Immature granulocytes (Bld) [#/Vol] 0.05 10*3/uL <0.10 k/uL [facility] Immature granulocytes/100 WBC (Bld) 1.0 % [facility] Lymphocytes (Bld) [#/Vol] 1.81 10*3/uL 1.00 - 4.00 k/uL [facility] Lymphocytes/100 WBC (Bld) 36.3 % [facility] MCH (RBC) [Entitic mass] 28.0 pg 26. 0 - 34.0 pg [facility] MCHC (RBC) [Mass/Vol] 32.4 g/dL 30.5 - 36.0 g/dL [facility] MCV (RBC) [Entitic vol] 86.5 fL 80.0 - 100.0 fL [facility] Monocytes (Bld) [#/Vol] 0.49 10*3/uL <0.87 k/uL [facility] Monocytes/100 WBC (Bld) 9.8 % [facility] Neutrophils (Bld) [#/Vol] 2.50 10*3/uL 1.45 - 7.50 k/uL [facility] Neutrophils/100 WBC (Bld) 50.3 % [facility] Nucleated RBC (Bld) [#/Vol] <0.01 k/uL [facility] Nucleated RBC/100 WBC (Bld) [Ratio] 0.0 /100 WBC [facility] Platelet mean volume (Bld) [Entitic vol] 9.2 fL 9.0 - 12.7 fL [facility] Platelets (Bld) [#/Vol] 269 10*3/uL 150 - 400 k/uL [facility] RBC (Bld) [#/Vol] 4.60 10*6/uL 4.20 - 6.0 0 m/uL [facility] WBC (Bld) [#/Vol] 4.98 10*3/uL 3.70 - 11. 00 k/uL [facility] Comprehensive metabolic 2000 panelon 03-05-2023 Albumin [Mass/Vol] 3.4 g/dL Low 3.9 - 4.9 g/dL [facility] ALP [Catalytic activity/Vol] 72 U/L 38 - 113 U/L [facility] ALT [Catalytic activity/Vol] 7 U/L Low 10 - 54 U/L [facility] Anion gap [Moles/Vol] 5 mmol/L Low 9 - 18 mmol/L [facility] AST [Catalytic activity/Vol] 11 U/L Low 14 - 40 U/L [facility] Bilirubin [Mass/Vol] 0.3 mg/dL 0.2 - 1 .3 mg/dL [facility] Calcium [Mass/Vol] 8.5 mg/dL 8.5 - 10. 2 mg/dL [facility] Chloride [Moles/Vol] 100 mmol/L 97 - 10 5 mmol/L [facility] CO2 [Moles/Vol] 28 mmol/L 22 - 30 mmol/L [facility] Creatinine [Mass/Vol] 0.64 mg/dL Low 0.73 - 1.22 mg/dL [facility] Estimated Glomerular Filtration Rate 108 mL/min/1.73m >=60 mL/min/1.73m [facility] Glucose [Mass/Vol] 85 mg/dL 74 - 99 mg/dL [facility] Potassium [Moles/Vol] 5.0 mmol/L 3.7 - 5.1 mmol/L [facility] Protein [Mass/Vol] 5.7 g/dL Low 6.3 - 8.0 g/dL [facility] Sodium [Moles/Vol] 133 mmol/L Low 136 - 144 mmol/L [facility] Urea nitrogen [Mass/Vol] 13 mg/dL 9 - 24 mg/d L [facility] Absolute lymphocyte counton 05-19-2022 Lymphocytes Auto (Unsp spec) [#/Vol] 1.29 10*3/uL 0.83-4.51 [facility] Work Phone: Basophil percentageon 2021 Basophils/100 WBC (Bld) 0.2 % 0-1 [facility] Work Phone: Eosinophils/100 WBC (Bld) 0.8 % 0-5 [facility] Work Phone: Neutrophils (Bld) [#/Vol] 11.1 10*3/uL 2.0-7.7 [facility] Work Phone: Neutrophils/100 WBC (Bld) 83.8 % 47-70 [facility] Work Phone: WBC (Bld) [#/Vol] 13.2 10*3/uL 4.4-11.0 [facility] Work Phone: Blood erythrocytes count (nu mber/volume)on 05-19-2022 RBC (Bld) [#/Vol] 4.29 10*6/uL 4.6-6.2 [facility] Work Phone: Blood hemoglobin measurement (mass/volume)on 05-19-2022 Hemoglobin (Bld) [Mass/Vol] 11.1 g/dL 13.0-16.5 [facility] Work Phone: Blood lymphocytes/100 leukoc yteson 05-19-2022 Lymphocytes/100 WBC (Bld) 9.8 % 19-41 [facility] Work Phone: Blood monocytes/100 leukocyt eson 05-19-2022 Monocytes/100 WBC (Bld) 4.9 % 0-10 [facility] Work Phone: [phone] Blood platelet mean volumeon 05-19-2022 Platelet mean volume (Bld) [Entitic vol] 8.7 fL 6.2-12.0 [facility] Work Phone: Determination of erythrocyte mean corpuscular volume (MCV)on 05-19-2022 MCV (RBC) [Entitic vol] 81.8 fL 80-94 [facility] Work Phone: [phone] Hematocrit Auto (Bld) [Volum e fraction]on 05-19-2022 Hematocrit (Bld) [Volume fraction] 35.1 % 40-54 [facility] Work Phone: Laboratory - Hematology and Cell countson 05-19-2022 Erythrocyte distribution width (RBC) [Entitic vol] 51.4 fL 35.1-43.9 [facility] Work Phone: [phone] Erythrocyte distribution width (RBC) [Ratio] 17.2 % 11.6-14.6 [facility] Work Phone: [phone] Immature granulocytes/100 WBC (Bld) 0.500 % 0.0-0.9 [facility] Work Phone: [phone] Comment on above: IG% - Immature Granu locytes (promyelocytes, myelocytes and metamyelocytes) > 1% indicates that a LEFT SHIFT is Present. MCH (RBC) [Entitic mass] 25.9 pg 27.0-32.0 [facility] Work Phone: Nucleated RBC/100 WBC (Bld) [Ratio] 0 % 0-5 [facility] Work Phone: [phone] MCHC Auto (RBC) [Mass/Vol]on 05-19-2022 MCHC (RBC) [Mass/Vol] 31.6 g/dL 32-36 [facility] Work Phone: Platelets bldon 05-19-2022 Platelets (Bld) [#/Vol] 310 10*3/uL 150-450 [facility] Work Phone: Basophil percentageon 2021 Chloride [Moles/Vol] 99 mmol/L 98-107 [facility] Work Phone: Glucose [Mass/Vol] 91 mg/dL 74-106 [facility] Work Phone: Potassium [Moles/Vol] 4.0 mmol/L 3.5-5.1 [facility] Work Phone: Sodium [Moles/Vol] 132 mmol/L 136-145 [facility] Work Phone: Basophil percentage 5-10 SEEN /hpf 0-5 [facility] Work Phone: Bilirubin Test strip Ql (U)o n 05-18-2022 Bilirubin Ql (U) Negative Negative [facility] Work Phone: Blood brynn cells detection b y light microscopyon 05-18-2022 [place] cells LM Ql (Bld) 1+ [facility] Work Phone: Blood platelet adequacy dete ction by light microscopyon 05-18-2022 Platelets LM Ql (Bld) ADEQUATE ADEQ [facility] Work Phone: Blood poikilocytosis detecti on by light microscopyon 05-18-2022 Poikilocytosis LM Ql (Bld) RARE [facility] Work Phone: Hypochromatic red blood cell detectionon 05-18-2022 Hypochromia Ql (Bld) RARE [facility] Work Phone: Ketones Test strip Ql (U)on 05-18-2022 Ketones Ql (U) 5 mg/dl Negative [facility] Work Phone: Laboratory - Chemistry and C hemistry - challengeon 05-18-2022 CO2 [Moles/Vol] 29.0 mmol/L 21.0-32.0 [facility] Work Phone: [phone] Urea nitrogen/Creatinine [Mass ratio] 20.5 mg/mg 10-20 [facility] Work Phone: [phone] Mucus LM Ql (Urine sed)on Mucus Ql (Urine sed) 0 SEEN /hpf [facility] Work Phone: [phone] Nitrite Test strip Ql (U)on 05-18-2022 Nitrite Ql (U) Negative Negative [facility] Work Phone: [phone] Panel Informationon 05-18 Estimated Creatinine Clearance Calc 104.72 ml/min [facility] Work Phone: Estimated GFR (MDRD) Amer 152 mL/min >60 [facility] Work Phone: [phone] Comment on above: GFR Calc Estimated GFR (MDRD) Non-Af Amer 126 mL/min >60 [facility] Work Phone: Comment on above: Non- GFR Calc Ovalocyte detectionon 2021 Ovalocytes LM Ql (Bld) RARE [facility] Work Phone: Protein Test strip Ql (U)on 05-18-2022 Protein Ql (U) 15 mg/dl Negative [facility] Work Phone: Review by pathologiston Pathologist review Reji (Unsp spec) [Interp] May foll [facility] Work Phone: [phone] Serum or plasma calcium tonio urement (mass/volume)on 05-18-2022 Calcium [Mass/Vol] 8.8 mg/dL 8.5-10.1 [facility] Work Phone: [phone] Serum or plasma creatinine m easurement (mass/volume)on 05-18-2022 Creatinine [Mass/Vol] 0.68 mg/dL 0.70-1.30 [facility] Work Phone: [phone] Comment on above: The validity of the calculated GFR & GFRAA in patients over 70 years has not been determined. Clinical correlation is essential. Serum or plasma urea nitroge n measurement (mass/volume)on 05-18-2022 Urea nitrogen [Mass/Vol] 14 mg/dL 7-18 [facility] Work Phone: Squamous epithelial cells de tection in urine sediment by light microscopyon 05-18-2022 Epithelial cells.squamous LM Ql (Urine sed) 0 SEEN /hpf 0-5 [facility] Work Phone: Thin prep Papanicolaou smear with manual screeningon 05-18-2022 Thin prep Papanicolaou smear with manual screening 4 5-15 [facility] Work Phone: Urine blood detectionon RBC Ql (U) 10 /ul Negative [facility] Work Phone: RBC Ql (U) 0-5 SEEN /hpf 0-5 [facility] Work Phone: Urine clarityon 05-18-2022 Clarity (U) Clear Clear [facility] Work Phone: Urine color determinationon 05-18-2022 Color (U) Yellow Yellow [facility] Work Phone: Urine glucose detectionon Glucose Ql (U) Normal mg/dl Normal [facility] Work Phone: Urine leukocyte esterase det ection by dipstickon 05-18-2022 Leukocyte esterase Test strip Ql (U) 100 /ul Negative [facility] Work Phone: Urine pHon 05-18-2022 pH (U) 6.0 [pH] 5.0 - 8.0 [facility] Work Phone: Urine sediment bacteria coun t by microscopy (number/high power field)on 05-18-2022 Bacteria LM.HPF (Urine sed) [#/Area] RARE /hpf None Seen [facility] Work Phone: Urine specific gravity measu rementon 05-18-2022 Specific gravity (U) [Rel density] 1.015 1.002-1.030 [facility] Work Phone: Urobilinogen Auto test strip Ql (U)on 05-18-2022 Urobilinogen Ql (U) Normal mg/dl Normal [facility] Work Phone: Absolute lymphocyte counton 05-17-2022 Lymphocytes Auto (Unsp spec) [#/Vol] 0.78 10*3/uL 0.83-4.51 [facility] Work Phone: Basophil percentageon 2021 Ammonia (P) [Moles/Vol] 27.0 umol/L 11-32 [facility] Work Phone: Basophils/100 WBC (Bld) 0.1 % 0-1 [facility] Work Phone: Bilirubin [Mass/Vol] 0.50 mg/dL 0.20-1.00 [facility] Work Phone: Comment on above: For patients on eltr ombopag therapy, use of Dimension Casey TBIL is not recommended. Chloride [Moles/Vol] 99 mmol/L 98-107 [facility] Work Phone: Eosinophils/100 WBC (Bld) 0.0 % 0-5 [facility] Work Phone: Glucose [Mass/Vol] 132 mg/dL 74-106 [facility] Work Phone: Comment on above: Fasting Glucose resu lt greater than or equal to 126 mg/dL suggests DIABETES MELLITUS per A.D.A. criteria. Lactate [Moles/Vol] 1.6 mmol/L 0.4-2.0 [facility] Work Phone: Neutrophils (Bld) [#/Vol] 16.7 10*3/uL 2.0-7.7 [facility] Work Phone: Neutrophils/100 WBC (Bld) 88.0 % 47-70 [facility] Work Phone: Potassium [Moles/Vol] 4.1 mmol/L 3.5-5.1 [facility] Work Phone: Protein [Mass/Vol] 7.2 g/dL 6.4-8.2 [facility] Work Phone: Sodium [Moles/Vol] 131 mmol/L 136-145 [facility] Work Phone: WBC (Bld) [#/Vol] 19.0 10*3/uL 4.4-11.0 [facility] Work Phone: Blood erythrocytes count (nu mber/volume)on 05-17-2022 RBC (Bld) [#/Vol] 4.84 10*6/uL 4.6-6.2 [facility] Work Phone: [phone] Blood hemoglobin measurement (mass/volume)on 05-17-2022 Hemoglobin (Bld) [Mass/Vol] 12.6 g/dL 13.0-16.5 [facility] Work Phone: [phone] Blood lymphocytes/100 leukoc yteson 05-17-2022 Lymphocytes/100 WBC (Bld) 4.1 % 19-41 [facility] Work Phone: [phone] Blood monocytes/100 leukocyt eson 05-17-2022 Monocytes/100 WBC (Bld) 6.6 % 0-10 [facility] Work Phone: Blood platelet mean volumeon 05-17-2022 Platelet mean volume (Bld) [Entitic vol] 9.2 fL 6.2-12.0 [facility] Work Phone: [phone] Determination of erythrocyte mean corpuscular volume (MCV)on 05-17-2022 MCV (RBC) [Entitic vol] 81.0 fL 80-94 [facility] Work Phone: Hematocrit Auto (Bld) [Volum e fraction]on 05-17-2022 Hematocrit (Bld) [Volume fraction] 39.2 % 40-54 [facility] Work Phone: INR in Blood by Coagulation assayon 05-17-2022 INR Coag (Bld) [Relative time] 1.2 {INR} [facility] Work Phone: Laboratory - Chemistry and C hemistry - challengeon 05-17-2022 ALP [Catalytic activity/Vol] 81 U/L 45-117 [facility] Work Phone: ALT [Catalytic activity/Vol] 13 U/L 16-61 [facility] Work Phone: CK [Catalytic activity/Vol] 52 U/L 39-308 [facility] Work Phone: [phone] CO2 [Moles/Vol] 27.0 mmol/L 21.0-32.0 [facility] Work Phone: Globulin (S) [Mass/Vol] 4.2 g/dL 2.2-4.2 [facility] Work Phone: Urea nitrogen/Creatinine [Mass ratio] 18.7 mg/mg 10-20 [facility] Work Phone: Laboratory - Coagulationon 1 07-18-2021 aPTT Coag (Bld) [Time] 34.0 s 24.1-36.2 [facility] Work Phone: PT Coag (PPP) [Time] 15.1 s 11.7-14.9 [facility] Work Phone: Laboratory - Hematology and Cell countson 05-17-2022 Erythrocyte distribution width (RBC) [Entitic vol] 49.8 fL 35.1-43.9 [facility] Work Phone: [phone] Erythrocyte distribution width (RBC) [Ratio] 17.2 % 11.6-14.6 [facility] Work Phone: Immature granulocytes/100 WBC (Bld) 1.200 % 0.0-0.9 [facility] Work Phone: Comment on above: IG% - Immature Granu locytes (promyelocytes, myelocytes and metamyelocytes) > 1% indicates that a LEFT SHIFT is Present. MCH (RBC) [Entitic mass] 26.0 pg 27.0-32.0 [facility] Work Phone: Nucleated RBC/100 WBC (Bld) [Ratio] 0 % 0-5 [facility] Work Phone: MCHC Auto (RBC) [Mass/Vol]on 05-17-2022 MCHC (RBC) [Mass/Vol] 32.1 g/dL 32-36 [facility] Work Phone: No Panel Informationon 05-17 Valproic Acid (Depakene) Level 69 ug/mL 50-100 [facility] Work Phone: Estimated Creatinine Clearance Calc 79.37 ml/min [facility] Work Phone: [phone] Estimated GFR (MDRD) Amer 110 mL/min >60 [facility] Work Phone: [phone] Comment on above: GFR Calc Estimated GFR (MDRD) Non-Af Amer 91 mL/min >60 [facility] Work Phone: Comment on above: Non- GFR Calc Platelets bldon 05-17-2022 Platelets (Bld) [#/Vol] 349 10*3/uL 150-450 [facility] Work Phone: Serum or plasma albumin tonio urement (mass/volume)on 05-17-2022 Albumin [Mass/Vol] 3.0 g/dL 3.2-5.0 [facility] Work Phone: [phone] Serum or plasma albumin/glob ulin mass ratioon 05-17-2022 Albumin/Globulin [Mass ratio] 0.7 {ratio} 0.9-2.4 [facility] Work Phone: [phone] Serum or plasma calcium tonio urement (mass/volume)on 05-17-2022 Calcium [Mass/Vol] 9.0 mg/dL 8.5-10.1 [facility] Work Phone: [phone] Serum or plasma creatinine m easurement (mass/volume)on 05-17-2022 Creatinine [Mass/Vol] 0.91 mg/dL 0.70-1.30 [facility] Work Phone: [phone] Comment on above: The validity of the calculated GFR & GFRAA in patients over 70 years has not been determined. Clinical correlation is essential. Serum or plasma urea nitroge n measurement (mass/volume)on 05-17-2022 Urea nitrogen [Mass/Vol] 17 mg/dL 7-18 [facility] Work Phone: Thin prep Papanicolaou smear with manual screeningon 05-17-2022 Thin prep Papanicolaou smear with manual screening 7 U/L 15-37 [facility] Work Phone: Thin prep Papanicolaou smear with manual screening 5 5-15 [facility] Work Phone: XR CHEST 2V FRONTAL/LATon [facility] XR Chest PA and Lateralon IMPRESSION: Inferior lingular airspace disease suggestive of an infiltrate. Stable blunting RIGHT costophrenic angle consistent with pleural thickening, lateral eventration or small effusion. Girls Swimming Coach: KEVEN Transcribe Date/Time: May 17 2022 12:08P Dictated by : INES MATTHEWS MD This examination was interpreted and the report reviewed and electronically signed by: INES MATTHEWS MD on May 17 2022 12:27PM [facility] DIVISION OF RADIOLOGY * * [...] pleural thickening, lateral eventration or small effusion. Girls Swimming Coach: PSCB Transcribe Date/Time: May 17 2022 12:08P Dictated by : INES MATTHEWS MD This examination was interpreted and the report reviewed and electronically signed by: INES MATTHEWS MD on May 17 2022 12:27PM [facility] Radiology Study observation (narrative) Abbie d[facility] XR Chest PA and LateralOrder ed By: [facility]cf Provider on 05-17-2022 [facility] Absolute lymphocyte counton 08-21-2021 Lymphocytes Auto (Unsp spec) [#/Vol] 0.86 10*3/uL 0.83-4.51 [facility] Work Phone: Basophil percentageon 2021 Basophils/100 WBC (Bld) 0.2 % 0-1 [facility] Work Phone: Chloride [Moles/Vol] 99 mmol/L 98-107 [facility] Work Phone: Eosinophils/100 WBC (Bld) 0.2 % 0-5 [facility] Work Phone: Glucose [Mass/Vol] 100 mg/dL 74-106 [facility] Work Phone: Comment on above: Fasting Glucose resu lt from 100 to 125 mg/dL suggests IMPAIRED HOMEOSTASIS per A.D.A. criteria. Neutrophils (Bld) [#/Vol] 3.2 10*3/uL 2.0-7.7 [facility] Work Phone: Neutrophils/100 WBC (Bld) 69.4 % 47-70 [facility] Work Phone: Potassium [Moles/Vol] 4.6 mmol/L 3.5-5.1 [facility] Work Phone: Sodium [Moles/Vol] 131 mmol/L 136-145 [facility] Work Phone: WBC (Bld) [#/Vol] 4.7 10*3/uL 4.4-11.0 [facility] Work Phone: [phone] Blood erythrocytes count (nu mber/volume)on 08-21-2021 RBC (Bld) [#/Vol] 5.13 10*6/uL 4.6-6.2 [facility] Work Phone: Blood hemoglobin measurement (mass/volume)on 08-21-2021 Hemoglobin (Bld) [Mass/Vol] 12.6 g/dL 13.0-16.5 [facility] Work Phone: Blood lymphocytes/100 leukoc yteson 08-21-2021 Lymphocytes/100 WBC (Bld) 18.4 % 19-41 [facility] Work Phone: Blood monocytes/100 leukocyt eson 08-21-2021 Monocytes/100 WBC (Bld) 11.6 % 0-10 [facility] Work Phone: Blood platelet mean volumeon 08-21-2021 Platelet mean volume (Bld) [Entitic vol] 8.5 fL 6.2-12.0 [facility] Work Phone: [phone] Determination of erythrocyte mean corpuscular volume (MCV)on 08-21-2021 MCV (RBC) [Entitic vol] 77.0 fL 80-94 [facility] Work Phone: [phone] Hematocrit Auto (Bld) [Volum e fraction]on 08-21-2021 Hematocrit (Bld) [Volume fraction] 39.5 % 40-54 [facility] Work Phone: [phone] Laboratory - Chemistry and C hemistry - challengeon 08-21-2021 CO2 [Moles/Vol] 28.0 mmol/L 21.0-32.0 [facility] Work Phone: [phone] Natriuretic peptide B (Bld) [Mass/Vol] 6.5 pg/mL 0-100 [facility] Work Phone: [phone] Urea nitrogen/Creatinine [Mass ratio] 11.6 mg/mg 10-20 [facility] Work Phone: [phone] Laboratory - Hematology and Cell countson 08-21-2021 Erythrocyte distribution width (RBC) [Entitic vol] 50.4 fL 35.1-43.9 [facility] Work Phone: [phone] Erythrocyte distribution width (RBC) [Ratio] 18.2 % 11.6-14.6 [facility] Work Phone: [phone] Immature granulocytes/100 WBC (Bld) 0.200 % 0.0-0.9 [facility] Work Phone: [phone] Comment on above: IG% - Immature Granu locytes (promyelocytes, myelocytes and metamyelocytes) > 1% indicates that a LEFT SHIFT is Present. MCH (RBC) [Entitic mass] 24.6 pg 27.0-32.0 [facility] Work Phone: [phone] Nucleated RBC/100 WBC (Bld) [Ratio] 0 % 0-5 [facility] Work Phone: [phone] MCHC Auto (RBC) [Mass/Vol]on 08-21-2021 MCHC (RBC) [Mass/Vol] 31.9 g/dL 32-36 [facility] Work Phone: [phone] Panel Informationon 08-21 Estimated Creatinine Clearance Calc 82.00 ml/min [facility] Work Phone: Estimated GFR (MDRD) Amer 105 mL/min >60 [facility] Work Phone: Comment on above: GFR Calc Estimated GFR (MDRD) Non-Af Amer 87 mL/min >60 [facility] Work Phone: Comment on above: Non- GFR Calc Troponin I High Sensitivity 6 pg/mL 3.0-78.0 [facility] Work Phone: Comment on above: Please Note: New Gary t Units and Gender Specific Reference Ranges. For more information see Policy Stat Procedure Casey High Sensitivity Troponin (TNIH) and attachments. Platelets bldon 08-21-2021 Platelets (Bld) [#/Vol] 286 10*3/uL 150-450 [facility] Work Phone: [phone] Serum or plasma calcium tonio urement (mass/volume)on 08-21-2021 Calcium [Mass/Vol] 8.9 mg/dL 8.5-10.1 [facility] Work Phone: [phone] Serum or plasma creatinine m easurement (mass/volume)on 08-21-2021 Creatinine [Mass/Vol] 0.95 mg/dL 0.70-1.30 [facility] Work Phone: Comment on above: The validity of the calculated GFR & GFRAA in patients over 70 years has not been determined. Clinical correlation is essential. Serum or plasma urea nitroge n measurement (mass/volume)on 08-21-2021 Urea nitrogen [Mass/Vol] 11 mg/dL 7-18 [facility] Work Phone: [phone] Thin prep Papanicolaou smear with manual screeningon 08-21-2021 Thin prep Papanicolaou smear with manual screening 4 5-15 [facility] Work Phone: [phone] COVID-19 virus antigen assay SARS-CoV-2 (COVID-19) Ag IA.rapid Ql (Resp) [facility] Work Phone: No Panel Information Influenza Types A,B Direct FA (PARAG) [facility] Work Phone: Streptococcus pneumoniae Antigen (M [facility] Work Phone: [phone] Urine Legionella pneumophila antigen detection L. pneumophila Ag Ql (U) [facility] Work Phone: [phone] Vital Signs Date Time Vital Sign Value Performing Clinician Faci lity 01-23-2025 01:50-0400 Body temperature 96.1 [degF] Dr. Priscilla Arndt MD Work Phone: [phone] [place] [address] 01-23-2025 01:50-0400 Diastolic blood pressure 82 mm[Hg] Dr. Priscilla Arndt MD Work Phone: [phone] [place] [address] 01-23-2025 01:50-0400 Heart rate 72 /min Dr. Priscilla Arndt MD Work Phone: [phone] [place] [address] 01-23-2025 01:50-0400 Respiratory rate 10 /min Dr. Priscilla Arndt MD Work Phone: [phone] [place] [address] 01-23-2025 01:50-0400 SaO2% (BldA) [Mass fraction] 99 % Dr. Priscilla Arndt MD Work Phone: [phone] [place] [address] 01-23-2025 01:50-0400 Systolic blood pressure 127 mm[Hg] Dr. Priscilla Arndt MD Work Phone: [phone])902-099792 [place] [address] 01-22-2025 23:49-0400 Body height 172.[address] Priscilla Arndt MD Work Phone: [phone])322-646592 [place] [address] 01-22-2025 23:49-0400 Body mass index (BMI) [Ratio] 17.7 kg/m2 Dr. Priscilla Arndt MD Work Phone: [phone])266-841792 [place] [address] 01-22-2025 23:49-0400 Body weight [address] Priscilla Arndt MD Work Phone: [phone])[phone] [place] [address] 01-21-2025 11:10-0400 Body temperature 97.5 [degF] Dr. Priscilla Arndt MD Work Phone: [phone])365-182692 [place] [address] 01-21-2025 11:10-0400 Diastolic blood pressure 87 mm[Hg] Dr. Priscilla Arndt MD Work Phone: [phone])207-731292 [place] [address] 01-21-2025 11:10-0400 Heart rate 84 /min Dr. Priscilla Arndt MD Work Phone: [phone] [place] [address] 01-21-2025 11:10-0400 Respiratory rate 18 /min Dr. Priscilla Arndt MD Work Phone: [phone] [place] [address] 01-21-2025 11:10-0400 SaO2% (BldA) [Mass fraction] 96 % Dr. Priscilla Arndt MD Work Phone: [phone] [place] [address] 01-21-2025 11:10-0400 Systolic blood pressure 138 mm[Hg] Dr. Priscilla Arndt MD Work Phone: [phone] [place] [address] 01-21-2025 10:26-0400 Body temperature 97.4 [degF] Dr. Priscilla Arndt MD Work Phone: 7([phone])870-793392 [place] [address] 01-21-2025 10:26-0400 Diastolic blood pressure 88 mm[Hg] Dr. Priscilla Arndt MD Work Phone: 0(358)310-511192 [place] [address] 01-21-2025 10:26-0400 Heart rate 78 /min Dr. Priscilla Arndt MD Work Phone: [phone])118-843192 [place] [address] 01-21-2025 10:26-0400 Respiratory rate 18 /min Dr. Priscilla Arndt MD Work Phone: [phone])492-497492 [place] [address] 01-21-2025 10:26-0400 SaO2% (BldA) [Mass fraction] 94 % Dr. Priscilla Arndt MD Work Phone: [phone])626-256092 [place] [address] 01-21-2025 10:26-0400 Systolic blood pressure 130 mm[Hg] Dr. Priscilla Arndt MD Work Phone: 7(735)426-305792 [place] [address] 01-21-2025 08:56-0400 Body height 172.[address] Priscilla Arndt MD Work Phone: [phone] [place] [address] 01-21-2025 08:56-0400 Body mass index (BMI) [Ratio] 18.2 kg/m2 Dr. Priscilla Ardnt MD Work Phone: 7(488)[phone] [place] [address] 01-21-2025 08:56-0400 Body weight 54.[address] Priscilla Arndt MD Work Phone: [phone])[phone] [place] [address] 11-26-2024 09:21-0400 Body mass index (BMI) [Ratio] 18.1 kg/m2 Dr. Priscilla Arndt MD Work Phone: [phone])086-400292 [place] [address] 11-26-2024 09:21-0400 Body temperature 97.3 [degF] Dr. Priscilla Arndt MD Work Phone: 9(481)729-276092 [place] [address] 11-26-2024 09:21-0400 Body weight 53.[address] Priscilla Arndt MD Work Phone: 0(447)989-034592 [place] [address] 11-26-2024 09:21-0400 Diastolic blood pressure 81 mm[Hg] Dr. Priscilla Arndt MD Work Phone: 2(512)670-746792 [place] [address] 11-26-2024 09:21-0400 Heart rate 92 /min Dr. Priscilla Arndt MD Work Phone: [phone])[phone] [place] [address] 11-26-2024 09:21-0400 Respiratory rate 20 /min Dr. Priscilla Arndt MD Work Phone: [phone])404-336192 [place] [address] 11-26-2024 09:21-0400 SaO2% (BldA) [Mass fraction] 98 % Dr. Priscilla Arndt MD Work Phone: [phone])915-411596 [place] [address] 11-26-2024 09:21-0400 Systolic blood pressure 126 mm[Hg] Dr. Priscilla Arndt MD Work Phone: [phone] [place] [address] 09-20-2024 10:32-0400 Body mass index (BMI) [Ratio] 19.47 kg/m2 Vinita Lilly APRN.DIRECTOR OF PROPERTY MANAGEMENT Work Phone: [facility] 09-20-2024 10:32-0400 Body temperature 97.11 [degF] Vinita Lilly APRN.DIRECTOR OF PROPERTY MANAGEMENT Work Phone: [facility] 09-20-2024 10:32-0400 Body weight 56.4 kg Vinita Lilly CENTRAL CONTROL ROOM OPERATOR.DIRECTOR OF PROPERTY MANAGEMENT Work Phone: [facility] 09-20-2024 10:32-0400 Diastolic blood pressure 62 mm[Hg] Vinita Lilly CENTRAL CONTROL ROOM OPERATOR.DIRECTOR OF PROPERTY MANAGEMENT Work Phone: [facility] 09-20-2024 10:32-0400 Heart rate 70 /min Vinita Lilly CENTRAL CONTROL ROOM OPERATOR.DIRECTOR OF PROPERTY MANAGEMENT Work Phone: [facility] 09-20-2024 10:32-0400 Respiratory rate 16 /min Vinita Lilly CENTRAL CONTROL ROOM OPERATOR.DIRECTOR OF PROPERTY MANAGEMENT Work Phone: [facility] 09-20-2024 10:32-0400 SaO2% (BldA) [Mass fraction] 96 % Vinita Lilly CENTRAL CONTROL ROOM OPERATOR.DIRECTOR OF PROPERTY MANAGEMENT Work Phone: [facility] 09-20-2024 10:32-0400 Systolic blood pressure 106 mm[Hg] Vinita Lilly CENTRAL CONTROL ROOM OPERATOR.DIRECTOR OF PROPERTY MANAGEMENT Work Phone: [facility] 08-28-2024 12:00-0400 Body temperature 97.5 [degF] Dr. Priscilla Arndt MD Work Phone: 4(986)534-304296 [place] [address] 08-28-2024 12:00-0400 Diastolic blood pressure 87 mm[Hg] Dr. Priscilla Arndt MD Work Phone: 9(199)893-828196 [place] [address] 08-28-2024 12:00-0400 Heart rate 77 /min Dr. Priscilla Arndt MD Work Phone: [facility] 08-28-2024 12:00-0400 Respiratory rate 16 /min Dr. Priscilla Arndt MD Work Phone: [facility] 08-28-2024 12:00-0400 SaO2% (BldA) [Mass fraction] 99 % Dr. Priscilla Arndt MD Work Phone: [facility] 08-28-2024 12:00-0400 Systolic blood pressure 137 mm[Hg] Dr. Priscilla Arndt MD Work Phone: 9(749)410-096492 [place] [address] 08-28-2024 09:53-0400 Body height 172.[address] Priscilla Arndt MD Work Phone: 1(925)228-888292 [place] [address] 08-28-2024 09:53-0400 Body weight 55.[address] Priscilla Arndt MD Work Phone: 0(994)394-239792 [place] [address] 08-28-2024 05:51-0400 Body mass index (BMI) [Ratio] 18.3 kg/m2 Dr. Priscilla Arndt MD Work Phone: 7(732)308-504992 [place] [address] 08-28-2024 04:00-0400 Inhaled oxygen flow rate 2 L/min Dr. Priscilla Arndt MD Work Phone: 5(868)915-229692 [place] [address] 08-28-2024 00:00-0400 Inhaled oxygen concentration 99 % Dr. Priscilla Arndt MD Work Phone: 8(375)142-752392 [place] [address] 07-27-2024 08:12-0500 Body mass index (BMI) [Ratio] 19.1 kg/m2 Dr. Priscilla Arndt MD Work Phone: 6(716)283-122292 [place] [address] 07-27-2024 08:12-0500 Body temperature 97.4 [degF] Dr. Priscilla Arndt MD Work Phone: 8(778)478-768092 [place] [address] 07-27-2024 08:12-0500 Body weight 57.[address] Priscilla Arndt MD Work Phone: 9(928)042-179792 [place] [address] 07-27-2024 08:12-0500 Diastolic blood pressure 79 mm[Hg] Dr. Priscilla Arndt MD Work Phone: 5(396)502-558392 [place] [address] 07-27-2024 08:12-0500 Heart rate 87 /min Dr. Priscilla Arndt MD Work Phone: 2(032)950-199592 [place] [address] 07-27-2024 08:12-0500 Respiratory rate 18 /min Dr. Priscilla Arndt MD Work Phone: 0(831)676-619992 [place] [address] 07-27-2024 08:12-0500 SaO2% (BldA) [Mass fraction] 99 % Dr. Priscilla Arndt MD Work Phone: [facility] 07-27-2024 08:12-0500 Systolic blood pressure 126 mm[Hg] Dr. Priscilla Arndt MD Work Phone: [facility] 07-08-2024 15:08-0500 Body mass index (BMI) [Ratio] 20.72 kg/m2 [facility] CENTRAL CONTROL ROOM OPERATOR.DIRECTOR OF PROPERTY MANAGEMENT Work Phone: [facility] 07-08-2024 15:08-0500 Body temperature 98.4 [degF] [facility] CENTRAL CONTROL ROOM OPERATOR.DIRECTOR OF PROPERTY MANAGEMENT Work Phone: [facility] 07-08-2024 15:08-0500 Body weight 60 kg [facility] CENTRAL CONTROL ROOM OPERATOR.DIRECTOR OF PROPERTY MANAGEMENT Work Phone: [facility] 07-08-2024 15:08-0500 Diastolic blood pressure 80 mm[Hg] [facility] CENTRAL CONTROL ROOM OPERATOR.DIRECTOR OF PROPERTY MANAGEMENT Work Phone: [facility] 07-08-2024 15:08-0500 Heart rate 93 /min [facility] CENTRAL CONTROL ROOM OPERATOR.DIRECTOR OF PROPERTY MANAGEMENT Work Phone: [facility] 07-08-2024 15:08-0500 Respiratory rate 20 /min [facility] CENTRAL CONTROL ROOM OPERATOR.DIRECTOR OF PROPERTY MANAGEMENT Work Phone: [facility] 07-08-2024 15:08-0500 SaO2% (BldA) [Mass fraction] 98 % [facility] CENTRAL CONTROL ROOM OPERATOR.DIRECTOR OF PROPERTY MANAGEMENT Work Phone: [facility] 07-08-2024 15:08-0500 Systolic blood pressure 131 mm[Hg] [facility] CENTRAL CONTROL ROOM OPERATOR.DIRECTOR OF PROPERTY MANAGEMENT Work Phone: [facility] 07-02-2024 08:40-0500 Body weight 54.[address] Priscilla Arndt MD Work Phone: [facility] 07-02-2024 08:40-0500 Heart rate 88 /min Dr. Pricsilla Arndt MD Work Phone: [facility] 07-02-2024 08:40-0500 Inhaled oxygen flow rate 2 L/min Dr. Priscilla Arndt MD Work Phone: 8(126)293-147992 [place] [address] 07-02-2024 08:40-0500 SaO2% (BldA) [Mass fraction] 96 % Dr. Priscilla Arndt MD Work Phone: 1(409)543-358492 [place] [address] 06-14-2024 07:57-0500 Body mass index (BMI) [Ratio] 18.4 kg/m2 Dr. Priscilla Arndt MD Work Phone: 6(354)642-218492 [place] [address] 06-14-2024 07:57-0500 Body temperature 97.3 [degF] Dr. Priscilla Arndt MD Work Phone: 2(546)151-941192 [place] [address] 06-14-2024 07:57-0500 Body weight 55.[address] Priscilla Arndt MD Work Phone: 1(641)041-995192 [place] [address] 06-14-2024 07:57-0500 Diastolic blood pressure 74 mm[Hg] Dr. Priscilla Arndt MD Work Phone: 6(522)920-234192 [place] [address] 06-14-2024 07:57-0500 Heart rate 86 /min Dr. Priscilla Arndt MD Work Phone: 4(148)049-669892 [place] [address] 06-14-2024 07:57-0500 Respiratory rate 18 /min Dr. Priscilla Arndt MD Work Phone: 2(444)632-405792 [place] [address] 06-14-2024 07:57-0500 SaO2% (BldA) [Mass fraction] 94 % Dr. Priscilla Arndt MD Work Phone: 9(504)253-481492 [place] [address] 06-14-2024 07:57-0500 Systolic blood pressure 114 mm[Hg] Dr. Priscilla Arndt MD Work Phone: 2(566)781-586192 [place] [address] 05-27-2024 13:36-0500 Body mass index (BMI) [Ratio] 18.5 kg/m2 Dr. Priscilla Arndt MD Work Phone: 2(476)740-275792 [place] [address] 05-27-2024 13:36-0500 Body weight 55.[address] Priscilla Arndt MD Work Phone: 1(353)022-276592 [place] [address] 05-19-2024 16:46-0500 Body mass index (BMI) [Ratio] 19.68 kg/m2 Victorino Praisler-Wood CENTRAL CONTROL ROOM OPERATOR.DIRECTOR OF PROPERTY MANAGEMENT Work Phone: [facility] 05-19-2024 16:46-0500 Body temperature 97.81 [degF] Victorino Praisler-Wood CENTRAL CONTROL ROOM OPERATOR.DIRECTOR OF PROPERTY MANAGEMENT Work Phone: [facility] 05-19-2024 16:46-0500 Body weight 57 kg Victorino Praisler-Wood CENTRAL CONTROL ROOM OPERATOR.DIRECTOR OF PROPERTY MANAGEMENT Work Phone: [facility] 05-19-2024 16:46-0500 Diastolic blood pressure 80 mm[Hg] Victorino Praisler-Wood CENTRAL CONTROL ROOM OPERATOR.DIRECTOR OF PROPERTY MANAGEMENT Work Phone: [facility] 05-19-2024 16:46-0500 Heart rate 96 /min Victorino Praisler-Wood CENTRAL CONTROL ROOM OPERATOR.DIRECTOR OF PROPERTY MANAGEMENT Work Phone: [facility] 05-19-2024 16:46-0500 Respiratory rate 18 /min Victorino Praisler-Wood CENTRAL CONTROL ROOM OPERATOR.DIRECTOR OF PROPERTY MANAGEMENT Work Phone: [facility] 05-19-2024 16:46-0500 SaO2% (BldA) [Mass fraction] 96 % Victorino Praisler-Wood CENTRAL CONTROL ROOM OPERATOR.DIRECTOR OF PROPERTY MANAGEMENT Work Phone: [facility] 05-19-2024 16:46-0500 Systolic blood pressure 142 mm[Hg] Victorino Praisler-Wood CENTRAL CONTROL ROOM OPERATOR.DIRECTOR OF PROPERTY MANAGEMENT Work Phone: [facility] 02-22-2024 14:31-0400 Body mass index (BMI) [Ratio] 18.3 kg/m2 Xochilt Keron CENTRAL CONTROL ROOM OPERATOR.DIRECTOR OF PROPERTY MANAGEMENT Work Phone: [facility] 02-22-2024 14:31-0400 Body temperature 97 [degF] Xochilt Keron CENTRAL CONTROL ROOM OPERATOR.DIRECTOR OF PROPERTY MANAGEMENT Work Phone: [facility] 02-22-2024 14:31-0400 Body weight 53 kg Xochilt Keron CENTRAL CONTROL ROOM OPERATOR.DIRECTOR OF PROPERTY MANAGEMENT Work Phone: [facility] 02-22-2024 14:31-0400 Diastolic blood pressure 74 mm[Hg] Xochilt Keron CENTRAL CONTROL ROOM OPERATOR.DIRECTOR OF PROPERTY MANAGEMENT Work Phone: [facility] 02-22-2024 14:31-0400 Heart rate 93 /min Xochilt Keron CENTRAL CONTROL ROOM OPERATOR.DIRECTOR OF PROPERTY MANAGEMENT Work Phone: [facility] 02-22-2024 14:31-0400 Respiratory rate 20 /min Xochilt Keron CENTRAL CONTROL ROOM OPERATOR.DIRECTOR OF PROPERTY MANAGEMENT Work Phone: [facility] 02-22-2024 14:31-0400 SaO2% (BldA) [Mass fraction] 96 % Xochilt Keron CENTRAL CONTROL ROOM OPERATOR.DIRECTOR OF PROPERTY MANAGEMENT Work Phone: [facility] 02-22-2024 14:31-0400 Systolic blood pressure 111 mm[Hg] Xochilt Keron CENTRAL CONTROL ROOM OPERATOR.DIRECTOR OF PROPERTY MANAGEMENT Work Phone: [facility] 02-03-2024 14:13-0400 Body mass index (BMI) [Ratio] 18.99 kg/m2 Lv Brigotti CENTRAL CONTROL ROOM OPERATOR.DIRECTOR OF PROPERTY MANAGEMENT Work Phone: [facility] 02-03-2024 14:13-0400 Body temperature 97.3 [degF] Lv Brigotti CENTRAL CONTROL ROOM OPERATOR.DIRECTOR OF PROPERTY MANAGEMENT Work Phone: [facility] 02-03-2024 14:13-0400 Body weight 55 kg Lv Ernestoigotti CENTRAL CONTROL ROOM OPERATOR.DIRECTOR OF PROPERTY MANAGEMENT Work Phone: [facility] 02-03-2024 14:13-0400 Diastolic blood pressure 87 mm[Hg] Lv Brigotti CENTRAL CONTROL ROOM OPERATOR.DIRECTOR OF PROPERTY MANAGEMENT Work Phone: [facility] 02-03-2024 14:13-0400 Heart rate 95 /min Lv Brigotti CENTRAL CONTROL ROOM OPERATOR.DIRECTOR OF PROPERTY MANAGEMENT Work Phone: [facility] 02-03-2024 14:13-0400 Respiratory rate 22 /min Lv Brigotti CENTRAL CONTROL ROOM OPERATOR.DIRECTOR OF PROPERTY MANAGEMENT Work Phone: [facility] 02-03-2024 14:13-0400 SaO2% (BldA) [Mass fraction] 98 % Lv Brigotti CENTRAL CONTROL ROOM OPERATOR.DIRECTOR OF PROPERTY MANAGEMENT Work Phone: [facility] 02-03-2024 14:13-0400 Systolic blood pressure 131 mm[Hg] Lv Hidalgo APRN.DIRECTOR OF PROPERTY MANAGEMENT Work Phone: [facility] 10-21-2023 14:56-0400 Body temperature 97.7 [degF] Dr. Priscilla Arndt Work Phone: [facility] 10-21-2023 14:56-0400 Diastolic blood pressure 97 mm[Hg] Dr. Priscilla Arndt Work Phone: [facility] 10-21-2023 14:56-0400 Heart rate 84 /min Dr. Priscilla Arndt Work Phone: [facility] 10-21-2023 14:56-0400 Respiratory rate 22 /min Dr. Priscilla Arndt Work Phone: [facility] 10-21-2023 14:56-0400 SaO2% (BldA) [Mass fraction] 95 % Dr. Priscilla Arndt Work Phone: [facility] 10-21-2023 14:56-0400 Systolic blood pressure 131 mm[Hg] Dr. Priscilla Arndt Work Phone: [facility] 10-21-2023 10:21-0400 Body height 172.[address] Priscilla Arndt Work Phone: [facility] 10-21-2023 10:21-0400 Body mass index (BMI) [Ratio] 19.4 kg/m2 Dr. Priscilla Arndt Work Phone: [facility] 10-21-2023 10:21-0400 Body weight [address] Priscilla Arndt Work Phone: [facility] 10-15-2023 10:00-0400 Body mass index (BMI) [Ratio] 20.05 kg/m2 Alycia Arnold APRN.DIRECTOR OF PROPERTY MANAGEMENT Work Phone: [facility] 10-15-2023 10:00-0400 Body weight 58.06 kg [facility] CENTRAL CONTROL ROOM OPERATOR.DIRECTOR OF PROPERTY MANAGEMENT Work Phone: [facility] 10-15-2023 10:00-0400 Diastolic blood pressure 86 mm[Hg] Alycia Clayton CENTRAL CONTROL ROOM OPERATOR.DIRECTOR OF PROPERTY MANAGEMENT Work Phone: [facility] 10-15-2023 10:00-0400 Heart rate 75 /min Alycia Clayton CENTRAL CONTROL ROOM OPERATOR.DIRECTOR OF PROPERTY MANAGEMENT Work Phone: [facility] 10-15-2023 10:00-0400 Respiratory rate 16 /min [facility] CENTRAL CONTROL ROOM OPERATOR.DIRECTOR OF PROPERTY MANAGEMENT Work Phone: [facility] 10-15-2023 10:00-0400 SaO2% (BldA) [Mass fraction] 98 % [facility]ENTRAL CONTROL ROOM OPERATOR.DIRECTOR OF PROPERTY MANAGEMENT Work Phone: [facility] 10-15-2023 10:00-0400 Systolic blood pressure 126 mm[Hg] Alycia Clayton CENTRAL CONTROL ROOM OPERATOR.DIRECTOR OF PROPERTY MANAGEMENT Work Phone: [facility] 10-06-2023 12:51-0400 Body height 172.[address] Priscilla Arndt Work Phone: 0(143)487-630696 [place] [address] 10-06-2023 12:51-0400 Body weight 61.[address] Priscilla Arndt Work Phone: 7(012)841-470596 [place] [address] 10-06-2023 12:51-0400 Heart rate 90 /min Dr. Priscilla Arndt Work Phone: [facility] 10-06-2023 12:51-0400 SaO2% (BldA) [Mass fraction] 96 % Dr. Priscilla Arndt Work Phone: 4(323)775-449096 [place] [address] 09-24-2023 08:14-0400 Body height 172.[address] Priscilla Arndt Work Phone: 2(778)924-898396 [place] [address] 09-24-2023 08:14-0400 Body mass index (BMI) [Ratio] 19.9 kg/m2 Dr. Priscilla Arndt Work Phone: 4(553)438-429296 [place] [address] 09-24-2023 08:14-0400 Body temperature 98.4 [degF] Dr. Priscilla Arndt Work Phone: [facility] 09-24-2023 08:14-0400 Body weight 59.[address] Priscilla Arndt Work Phone: 4(945)603-147496 [place] [address] 09-24-2023 08:14-0400 Diastolic blood pressure 90 mm[Hg] Dr. Priscilla Arndt Work Phone: 2(838)632-896696 [place] [address] 09-24-2023 08:14-0400 Heart rate 73 /min Dr. Priscilla Arndt Work Phone: 1(452)331-216092 [place] [address] 09-24-2023 08:14-0400 Respiratory rate 18 /min Dr. Priscilla Arndt Work Phone: 2(009)477-435392 [place] [address] 09-24-2023 08:14-0400 SaO2% (BldA) [Mass fraction] 96 % Dr. Priscilla Arndt Work Phone: [facility] 09-24-2023 08:14-0400 Systolic blood pressure 130 mm[Hg] Dr. Priscilla Arndt Work Phone: [facility] 04-28-2023 10:22-0500 Body height 172.72 cm [facility] 04-28-2023 10:22-0500 Body mass index (BMI) [Ratio] 19.7 kg/m2 [facility] 04-28-2023 10:22-0500 Body temperature 97.6 [degF] [facility] 04-28-2023 10:22-0500 Body weight 58.74 kg [facility] 04-28-2023 10:22-0500 Diastolic blood pressure 80 mm[Hg] [facility] 04-28-2023 10:22-0500 Heart rate 98 /min [facility] 04-28-2023 10:22-0500 Respiratory rate 18 /min [facility] 04-28-2023 10:22-0500 SaO2% (BldA) [Mass fraction] 98 % [facility] 04-28-2023 10:22-0500 Systolic blood pressure 114 mm[Hg] [facility] 04-07-2023 08:29-0400 Body height 170.2 cm Serene Denbow PA-C Work Phone: [facility] 04-07-2023 08:29-0400 Body temperature 97.2 [degF] Serene Denbow PA-C Work Phone: [facility] 04-07-2023 08:29-0400 Body weight 60.33 kg Serene Denbow PA-C Work Phone: [facility] 04-07-2023 08:29-0400 Diastolic blood pressure 62 mm[Hg] Serene Denbow PA-C Work Phone: [facility] 04-07-2023 08:29-0400 Heart rate 80 /min Serene Denbow PA-C Work Phone: [facility] 04-07-2023 08:29-0400 Respiratory rate 12 /min Serene Denbow PA-C Work Phone: [facility] 04-07-2023 08:29-0400 Systolic blood pressure 120 mm[Hg] Serene Denbow PA-C Work Phone: [facility] 04-03-2023 12:34-0400 Body temperature 97.7 [degF] Germania Goldberg APRN.DIRECTOR OF PROPERTY MANAGEMENT Work Phone: [facility] 04-03-2023 12:34-0400 Body weight 57.24 kg Germania Goldberg APRN.DIRECTOR OF PROPERTY MANAGEMENT Work Phone: [facility] 04-03-2023 12:34-0400 Diastolic blood pressure 79 mm[Hg] Germania Goldberg APRN.DIRECTOR OF PROPERTY MANAGEMENT Work Phone: [facility] 04-03-2023 12:34-0400 Heart rate 81 /min Germania Goldberg APRN.DIRECTOR OF PROPERTY MANAGEMENT Work Phone: [facility] 04-03-2023 12:34-0400 Respiratory rate 18 /min Germania Goldberg APRN.DIRECTOR OF PROPERTY MANAGEMENT Work Phone: [facility] 04-03-2023 12:34-0400 SaO2% (BldA) [Mass fraction] 96 % Germania Goldberg CENTRAL CONTROL ROOM OPERATOR.DIRECTOR OF PROPERTY MANAGEMENT Work Phone: [facility] 04-03-2023 12:34-0400 Systolic blood pressure 122 mm[Hg] Germania Goldberg CENTRAL CONTROL ROOM OPERATOR.DIRECTOR OF PROPERTY MANAGEMENT Work Phone: [facility] 03-05-2023 11:03-0400 Body temperature 97.3 [degF] Malathi Skinner CENTRAL CONTROL ROOM OPERATOR.DIRECTOR OF PROPERTY MANAGEMENT Work Phone: [facility] 03-05-2023 11:03-0400 Body weight 62.14 kg Malathi Skinner CENTRAL CONTROL ROOM OPERATOR.DIRECTOR OF PROPERTY MANAGEMENT Work Phone: [facility] 03-05-2023 11:03-0400 Diastolic blood pressure 82 mm[Hg] Malathi Skinner CENTRAL CONTROL ROOM OPERATOR.DIRECTOR OF PROPERTY MANAGEMENT Work Phone: [facility] 03-05-2023 11:03-0400 Heart rate 89 /min Malathi Skinner CENTRAL CONTROL ROOM OPERATOR.DIRECTOR OF PROPERTY MANAGEMENT Work Phone: [facility] 03-05-2023 11:03-0400 Respiratory rate 20 /min Malathi Skinner CENTRAL CONTROL ROOM OPERATOR.DIRECTOR OF PROPERTY MANAGEMENT Work Phone: [facility] 03-05-2023 11:03-0400 SaO2% (BldA) [Mass fraction] 97 % Malathi Skinner CENTRAL CONTROL ROOM OPERATOR.DIRECTOR OF PROPERTY MANAGEMENT Work Phone: [facility] 03-05-2023 11:03-0400 Systolic blood pressure 124 mm[Hg] Malathi Skinner CENTRAL CONTROL ROOM OPERATOR.DIRECTOR OF PROPERTY MANAGEMENT Work Phone: [facility] 09-10-2022 06:40-0400 Body height 172.[address] Priscilla Anrdt Work Phone: [facility] 09-10-2022 06:40-0400 Body mass index (BMI) [Ratio] 22.8 kg/m2 Dr. Priscilla Arndt Work Phone: [facility] 09-10-2022 06:40-0400 Body temperature 97.6 [degF] Dr. Priscilla Arndt Work Phone: [facility] 09-10-2022 06:40-0400 Body weight 68.[address] Priscilla Arndt Work Phone: 0(939)277-092896 [place] [address] 09-10-2022 06:40-0400 Diastolic blood pressure 90 mm[Hg] Dr. Priscilla Arndt Work Phone: 7(115)269-667892 [place] [address] 09-10-2022 06:40-0400 Heart rate 90 /min Dr. Priscilla Arndt Work Phone: 5(137)816-266996 [place] [address] 09-10-2022 06:40-0400 Respiratory rate 17 /min Dr. Priscilla Arndt Work Phone: 2(668)209-663492 [place] [address] 09-10-2022 06:40-0400 SaO2% (BldA) [Mass fraction] 98 % Dr. Priscilla Arndt Work Phone: 7(039)601-026296 [place] [address] 09-10-2022 06:40-0400 Systolic blood pressure 134 mm[Hg] Dr. Priscilla Arndt Work Phone: 7(867)447-202196 [place] [address] 05-19-2022 11:44-0500 Body temperature 98 [degF] Dr. Priscilla Arndt Work Phone: 2(053)341-168096 [place] [address] Work Phone: 05-19-2022 11:44-0500 Diastolic blood pressure 76 mm[Hg] Dr. Priscilla Arndt Work Phone: [facility] Work Phone: 05-19-2022 11:44-0500 Heart rate 88 /min Dr. Priscilla Arndt Work Phone: [facility] Work Phone: 05-19-2022 11:44-0500 Respiratory rate 18 /min Dr. Priscilla Arndt Work Phone: [facility] Work Phone: 05-19-2022 11:44-0500 SaO2% (BldA) [Mass fraction] 93 % Dr. Priscilla Arndt Work Phone: [facility] Work Phone: 05-19-2022 11:44-0500 Systolic blood pressure 114 mm[Hg] Dr. Priscilla Arndt Work Phone: [facility] Work Phone: 05-19-2022 09:06-0500 Inhaled oxygen flow rate 0 L/min Dr. Priscilla Arndt Work Phone: [facility] Work Phone: 05-19-2022 03:00-0500 Inhaled oxygen concentration 93 % Dr. Priscilla Arndt Work Phone: [facility] Work Phone: 05-18-2022 12:17-0500 Body height 172.[address] Priscilla Arndt Work Phone: [facility] Work Phone: 05-18-2022 12:17-0500 Body weight 63.[address] Priscilla Arndt Work Phone: [facility] Work Phone: 05-18-2022 03:16-0500 Body mass index (BMI) [Ratio] 21.2 kg/m2 Dr. Priscilla Arndt Work Phone: [facility] Work Phone: 05-18-2022 03:03-0500 Diastolic blood pressure 83 mm[Hg] [facility] Work Phone: 05-18-2022 03:03-0500 Systolic blood pressure 116 mm[Hg] [facility] Work Phone: 05-18-2022 00:14-0500 Body temperature 97.8 [degF] [facility] Work Phone: 05-18-2022 00:14-0500 Heart rate 98 /min [facility] Work Phone: 05-18-2022 00:14-0500 Respiratory rate 17 /min [facility] Work Phone: 05-18-2022 00:14-0500 SaO2% (BldA) [Mass fraction] 99 % [facility] Work Phone: 05-17-2022 23:36-0500 Inhaled oxygen flow rate 1 L/min [facility] Work Phone: 05-17-2022 19:34-0500 Body height 172.72 cm [facility] Work Phone: 05-17-2022 19:34-0500 Body mass index (BMI) [Ratio] 21.5 kg/m2 [facility] Work Phone: 05-17-2022 19:34-0500 Body weight 64.2 kg [facility] Work Phone: 05-17-2022 11:34-0500 Body temperature 101.3 [degF] Elida Athy PA-C Work Phone: [facility] 05-17-2022 11:34-0500 Body weight 65.14 kg Elida Athy PA-C Work Phone: [facility] 05-17-2022 11:34-0500 Diastolic blood pressure 76 mm[Hg] Elida Athy PA-C Work Phone: [facility] 05-17-2022 11:34-0500 Heart rate 118 /min Elida Athy PA-C Work Phone: [facility] 05-17-2022 11:34-0500 Respiratory rate 21 /min Elida Athy PA-C Work Phone: [facility] 05-17-2022 11:34-0500 SaO2% (BldA) [Mass fraction] 94 % Elida Athy PA-C Work Phone: [facility] 05-17-2022 11:34-0500 Systolic blood pressure 128 mm[Hg] Elida Athy PA-C Work Phone: [facility] 04-15-2022 11:07-0400 Body temperature 97.9 [degF] Xochilt Keron CENTRAL CONTROL ROOM OPERATOR.DIRECTOR OF PROPERTY MANAGEMENT Work Phone: [facility] 04-15-2022 11:07-0400 Body weight 65.68 kg Xochiltkatrina Martinezk CENTRAL CONTROL ROOM OPERATOR.DIRECTOR OF PROPERTY MANAGEMENT Work Phone: [facility] 04-15-2022 11:07-0400 Diastolic blood pressure 84 mm[Hg] Xochilt Keron CENTRAL CONTROL ROOM OPERATOR.DIRECTOR OF PROPERTY MANAGEMENT Work Phone: [facility] 04-15-2022 11:07-0400 Heart rate 100 /min Xochilt Keron CENTRAL CONTROL ROOM OPERATOR.DIRECTOR OF PROPERTY MANAGEMENT Work Phone: [facility] 04-15-2022 11:07-0400 Respiratory rate 20 /min Xochilt Keron CENTRAL CONTROL ROOM OPERATOR.DIRECTOR OF PROPERTY MANAGEMENT Work Phone: [facility] 04-15-2022 11:07-0400 SaO2% (BldA) [Mass fraction] 93 % Xochiltkatrina Martinezk CENTRAL CONTROL ROOM OPERATOR.DIRECTOR OF PROPERTY MANAGEMENT Work Phone: [facility] 04-15-2022 11:07-0400 Systolic blood pressure 126 mm[Hg] Xochilt Keron CENTRAL CONTROL ROOM OPERATOR.DIRECTOR OF PROPERTY MANAGEMENT Work Phone: [facility] 03-10-2022 00:54-0400 Respiratory rate 16 /min [facility] Work Phone: 03-09-2022 23:30-0400 Body height 172.72 cm [facility] Work Phone: 03-09-2022 23:30-0400 Body mass index (BMI) [Ratio] 24.3 kg/m2 [facility] Work Phone: 03-09-2022 23:30-0400 Body temperature 97.2 [degF] [facility] Work Phone: 03-09-2022 23:30-0400 Body weight 72.57 kg [facility] Work Phone: 03-09-2022 23:30-0400 Diastolic blood pressure 101 mm[Hg] [facility] Work Phone: 03-09-2022 23:30-0400 Heart rate 95 /min [facility] Work Phone: 03-09-2022 23:30-0400 SaO2% (BldA) [Mass fraction] 97 % [facility] Work Phone: 03-09-2022 23:30-0400 Systolic blood pressure 195 mm[Hg] [facility] Work Phone: 09-25-2021 09:38-0400 Body height 172.[address] Priscilla Arndt Work Phone: [facility] Work Phone: 09-25-2021 09:38-0400 Body mass index (BMI) [Ratio] 24 kg/m2 Dr. Priscilla Arndt Work Phone: [facility] Work Phone: 09-25-2021 09:38-0400 Body temperature 97.5 [degF] Dr. Priscilla Arndt Work Phone: [facility] Work Phone: 09-25-2021 09:38-0400 Body weight 71.[address] Priscilla Arndt Work Phone: [facility] Work Phone: 09-25-2021 09:38-0400 Diastolic blood pressure 91 mm[Hg] Dr. Priscilla Arndt Work Phone: [facility] Work Phone: 09-25-2021 09:38-0400 Heart rate 93 /min Dr. Priscilla Arndt Work Phone: [facility] Work Phone: 09-25-2021 09:38-0400 Respiratory rate 16 /min Dr. Priscilla Arndt Work Phone: [facility] Work Phone: 09-25-2021 09:38-0400 SaO2% (BldA) [Mass fraction] 96 % Dr. Priscilla Arndt Work Phone: [facility] Work Phone: 09-25-2021 09:38-0400 Systolic blood pressure 127 mm[Hg] Dr. Priscilla Arndt Work Phone: [facility] Work Phone: 08-21-2021 11:55-0500 Diastolic blood pressure 74 mm[Hg] Dr. Priscilla Arndt Work Phone: [facility] Work Phone: 08-21-2021 11:55-0500 Heart rate 74 /min Dr. Priscilla Arndt Work Phone: [facility] Work Phone: 08-21-2021 11:55-0500 Respiratory rate 18 /min Dr. Priscilla Arndt Work Phone: [facility] Work Phone: 08-21-2021 11:55-0500 SaO2% (BldA) [Mass fraction] 93 % Dr. Priscilla Arndt Work Phone: [facility] Work Phone: 08-21-2021 11:55-0500 Systolic blood pressure 138 mm[Hg] Dr. Priscilla Arndt Work Phone: [facility] Work Phone: 08-21-2021 10:04-0500 Body temperature 97.6 [degF] Dr. Priscilla Arndt Work Phone: [facility] Work Phone: 08-21-2021 08:16-0500 Body mass index (BMI) [Ratio] 25 kg/m2 Dr. Priscilla Arndt Work Phone: [facility] Work Phone: 08-21-2021 08:16-0500 Body weight 74.[address] Priscilla Arndt Work Phone: [facility] Work Phone: 07-24-2021 07:27-0500 Body weight 74.[address] Priscilla Arndt Work Phone: [facility] Work Phone: 07-24-2021 07:27-0500 Heart rate 87 /min Dr. Priscilla Arndt Work Phone: [facility] Work Phone: 07-24-2021 07:27-0500 SaO2% (BldA) [Mass fraction] 96 % Dr. Priscilla Arndt Work Phone: [facility] Work Phone: Encounters Encounter Date Encounter Type Care Provider Facility Start: 01-23-2025 Non-patient / Non-visit Dr. Nettie Rodriguez MD -[facility] Work Phone: Start: 01-22-2025 End: 01-23-2025 Emergency department patient visit Dr. Priscilla Arndt MD Work Phone: -Emergency Department Work Phone: Start: 01-21-2025 End: 01-21-[address] Priscilla Arndt MD Work Phone: [facility] Start: 01-21-2025 End: 01-21-2025 Patient encounter procedure RESEARCH ASST Nicki Pantoja [facility] Work Phone: Start: 12-07-2024 End: 12-07-2024 Chart abstracting Jacky Barahona MD Work Phone: [facility] [place] Start: 11-26-2024 End: 11-26-2024 Patient encounter procedure RESEARCH ASST Nicki Pantoja [facility] Work Phone: Start: 11-26-2024 End: 11-26-[address] Priscilla Arndt MD Work Phone: [facility] Work Phone: Start: 11-25-2024 End: 11-25-[address] Priscilla Arndt MD Work Phone: [facility] Work Phone: Start: 11-25-2024 End: 11-25-2024 Patient encounter procedure CARL Pantoja -Laboratory Work Phone: Start: 11-25-2024 End: 11-25-2024 ambulatory Nicki Pantoja Facility:[facility] Start: 09-21-2024 End: 09-27-2024 Follow-up encounter Enrique Allison NAZANIN.DIRECTOR OF PROPERTY MANAGEMENT Work Phone: [facility] Comment on above: Results Start: 09-20-2024 End: 09-20-2024 ambulatory [facility] Facility:[facility] Start: 09-20-2024 End: 09-20-2024 Patient encounter procedure Vinita Lilly NAZANIN.DIRECTOR OF PROPERTY MANAGEMENT Work Phone: [facility] Comment on above: Burning with urinati on (Primary Dx); Urinary hesitancy Start: 08-28-2024 Non-patient / Non-visit Dr. Hyun Duncan MD -[facility] Work Phone: Start: 08-27-2024 ambulatory Hyun Duncan [place] Start: 08-27-2024 End: 08-28-2024 Evaluation and management of inpatient Dr. Hyun Duncan MD -Intensive Care Unit Work Phone: Start: 07-27-2024 End: 07-27-2024 Patient encounter procedure CARL Pantoja -[facility] Work Phone: Start: 07-27-2024 End: 07-27-2024 ambulatory [facility] Facility[facility] Start: 07-12-2024 End: 07-12-[address] Erick Hernández MD -[facility] Work Phone: Start: 07-12-2024 End: 07-12-2024 ambulatory [facility] Facility[facility] Start: 07-08-2024 End: 07-08-2024 Subsequent hospital visit by physician Minerva [facility] Work Phone: Radiology Comment on above: Subacute cough [R05. 2] Start: 07-08-2024 End: 07-08-2024 ambulatory [facility] Facility:[facility] Start: 07-08-2024 End: 07-08-2024 Office outpatient visit 25 minutes Jacky Ferrera APRN.CNP Work Phone: [facility] Comment on above: Subacute cough (Prim lexii Dx); COPD with exacerbation (HCC) Start: 07-05-2024 End: 07-05-[address] Erick Hernández MD -[facility] Work Phone: Start: 07-05-2024 ambulatory [facility] Facility:[facility] Start: 07-05-2024 Non-patient / Non-visit Dr. Rock warren -[facility] Start: 07-05-2024 End: 07-05-2024 ambulatory [facility] Facility:[facility] Start: 07-02-2024 End: 07-02-2024 Patient encounter procedure Tammy Stone RESEARCH ASST-C -Pulmonary Services/Neurology Work Phone: Start: 07-02-2024 End: 07-02-2024 ambulatory Tammy Stone [facility]EARCH ASST Facility:[facility] Start: 06-23-2024 End: 06-23-2024 Patient encounter procedure Tammy Stone RESEARCH ASST-C -Pulmonary Services/Neurology Work Phone: Start: 06-23-2024 End: 06-23-2024 ambulatory Tammy Stone RESEARCH ASST Facility:[facility] Start: 06-14-2024 End: 06-14-2024 Patient encounter procedure Tammy Stone RESEARCH ASST-C -[facility] Work Phone: Start: 06-14-2024 End: 06-14-2024 ambulatory Tammy Stone [facility]EARCH ASST Facility[place] Start: 06-11-2024 End: 06-11-2024 Telephone encounter Priscilla Arndt MD Work Phone: [facility] [place] Comment on above: Patient Update; Appo intment; Pharmacy change Start: 05-27-2024 End: 05-27-[address] Erick Hernández MD -[facility] Work Phone: Start: 05-27-2024 End: 05-27-2024 ambulatory [facility] Facility:[facility] Start: 05-19-2024 End: 05-19-2024 ambulatory [facility] Facility:[facility] Start: 05-19-2024 End: 05-19-2024 Patient encounter procedure Victorino Parsons APRN.DIRECTOR OF PROPERTY MANAGEMENT Work Phone: [facility] Comment on above: COPD with exacerbati on (HCC) (Primary Dx); Bacterial sinusitis Start: 04-29-2024 End: 04-29-2024 ambulatory Tammy Stone RESEARCH ASST Facility:[facility] Start: 04-20-2024 End: 04-20-2024 Telephone encounter Sumi Lockwood RESEARCH ASST Work Phone: [facility] Start: 04-07-2024 End: 04-07-2024 ambulatory Tammy Stone [facility]EARCH ASST Facility:[facility] Start: 03-29-2024 [facility] Facility:[facility] Start: 03-28-2024 End: 03-29-2024 [facility] Facility:[facility] Start: 03-28-2024 End: 03-28-2024 Patient encounter procedure Vinita Lilly APRN.DIRECTOR OF PROPERTY MANAGEMENT Work Phone: [facility] Comment on above: Arm weakness (Primar y Dx) Start: 02-24-2024 End: 02-27-2024 ambulatory Priscilla Arndt MD Work Phone: Internal Medicine [place] [phone] Start: 02-23-2024 End: 02-23-2024 Telephone encounter Vinita Lilly APRN.DIRECTOR OF PROPERTY MANAGEMENT Work Phone: [facility] Comment on above: Results Start: 02-22-2024 End: 02-22-2024 ambulatory [facility] Facility:[facility] Start: 02-22-2024 End: 02-22-2024 Patient encounter procedure Xochilt Cabrales APRN.DIRECTOR OF PROPERTY MANAGEMENT Work Phone: [facility] Comment on above: Bacterial sinusitis (Primary Dx); Weight loss; COPD with exacerbation (HCC) Start: 02-03-2024 End: 02-03-2024 ambulatory [facility] Facility:[facility] Start: 02-03-2024 End: 02-03-2024 Patient encounter procedure Lv Hidalgo CENTRAL CONTROL ROOM OPERATOR.DIRECTOR OF PROPERTY MANAGEMENT Work Phone: [facility] Comment on above: Bacterial conjunctiv itis (Primary Dx) Start: 10-21-2023 End: 10-21-2023 Emergency department patient visit Dr. Priscilla Arndt Work Phone: [facility]-Emergency Department Work Phone: Start: 10-20-2023 Telephone encounter Alycia tracey CENTRAL CONTROL ROOM OPERATOR.DIRECTOR OF PROPERTY MANAGEMENT Work Phone: [facility] [place] Comment on above: Results Start: 10-15-2023 End: 10-15-2023 Subsequent hospital visit by physician Xr [facility] Work Phone: Radiology Comment on above: Shortness of breath [R06.02] Start: 10-15-2023 End: 10-15-2023 Patient encounter procedure Alycia Arnold CENTRAL CONTROL ROOM OPERATOR.DIRECTOR OF PROPERTY MANAGEMENT Work Phone: [facility] [place] Comment on above: Blood in stool (Prim lexii Dx); Shortness of breath; Rectal bleeding; Malaise; Unintentional weight loss; Chronic obstructive pulmonary disease, unspecified COPD type (HCC); Seizure disorder (HCC) Start: 10-14-2023 ambulatory Sunitha Vega RN [facility] Comment on above: Rectal Problem Start: 10-14-2023 Patient encounter procedure Sunitha Vega RN [facility] [employer] Comment on above: Clinical Update Start: 10-08-2023 Non-patient / Non-visit Dr. Fred Arndt Work Phone: [facility] Start: 10-06-2023 End: 10-06-[address] Priscilla Arndt Work Phone: [facility] Work Phone: Start: 10-06-2023 End: 10-06-[address] Priscilla Arndt Work Phone: [facility]-Pulmonary Services/Neurology Work Phone: Start: 09-26-2023 End: 09-26-[address] Priscilla Arndt Work Phone: [facility] Work Phone: Start: 09-26-2023 End: 09-26-[address] Priscilla Arndt Work Phone: [facility]-Pulmonary Services/Neurology Work Phone: Start: 09-24-2023 End: 09-24-[address] Priscilla Arndt Work Phone: [facility] Work Phone: Start: 07-31-2023 End: 07-31-2023 ambulatory SUMI ZAVALETAT Not Available Start: 07-31-2023 End: 07-31-2023 Office outpatient visit 15 minutes Sumi Zavaletat RESEARCH ASST Work Phone: [facility] Comment on above: Seizure (CMS/HCC) (P rimary Dx); Migraine without aura and without status migrainosus, not intractable (CMS/HCC) Start: 06-23-2023 End: 06-23-2023 ambulatory SUMI ZAVALETAT Not Available Start: 04-28-2023 End: 04-28-2023 Emergency department patient visit [facility]-Emergency Department Work Phone: Start: 04-07-2023 End: 04-07-2023 Patient encounter procedure Serene Jerome PA-C Work Phone: [facility] [place] Comment on above: Anxiety associated w ith depression (Primary Dx); Psychosocial stressors Start: 04-03-2023 End: 04-03-2023 Patient encounter procedure Germania Goldberg APRN.DIRECTOR OF PROPERTY MANAGEMENT Work Phone: [facility] Comment on above: Rhinosinusitis (Prim lexii Dx) Start: 03-05-2023 End: 03-05-2023 Patient encounter procedure Malathi Skinner APRN.DIRECTOR OF PROPERTY MANAGEMENT Work Phone: [facility] Comment on above: Diarrhea, unspecifie d type (Primary Dx); Lower abdominal pain Start: 01-11-2023 End: 01-11-2023 ambulatory [facility] Work Phone: Start: 01-11-2023 End: 01-11-2023 Patient encounter [facility] Work Phone: Start: 10-03-2022 End: 10-03-[address] Priscilla Arndt Work Phone: [facility] Work Phone: Start: 10-03-2022 End: 10-03-[address] Priscilla Arndt Work Phone: [facility] Start: 09-10-2022 End: 09-10-[address] Priscilla Arndt Work Phone: [facility]-Pulmonary Medicine [facility] Start: 05-21-2022 Telephone encounter Priscilla issa MD Work Phone: [facility] [place] Comment on above: Patient Update (Pt w as an inpt at [facility]/) Start: 05-18-2022 Non-patient / Non-visit Dr. Fred Arndt Work Phone: [facility] Start: 05-17-2022 Non-patient / Non-visit Dr. Fred Arndt Work Phone: [facility] Start: 05-17-2022 End: 05-19-2022 Evaluation and management of inpatient [facility]-Medical Surgical 3 Start: 05-17-2022 End: 05-17-2022 Subsequent hospital visit by physician Xr [facility] Work Phone: Radiology Comment on above: Fever, unspecified f ever cause [R50.9] Start: 05-17-2022 End: 05-17-2022 Patient encounter procedure Elida Ibarra PA-C Work Phone: [facility] Comment on above: Lingular pneumonia ( Primary Dx) Start: 04-15-2022 Telephone encounter Xochilt Cabrales APRN.DIRECTOR OF PROPERTY MANAGEMENT Work Phone: [facility] Comment on above: Rx backordered Start: 04-15-2022 End: 04-15-2022 Patient encounter procedure Xochilt Cabrales NAZANIN.DIRECTOR OF PROPERTY MANAGEMENT Work Phone: [facility] Comment on above: COPD with exacerbati on (HCC) (Primary Dx); Sinobronchitis Start: 03-09-2022 End: 03-10-2022 [facility] Start: 02-28-2022 Refill Alison ReyesDIRECTOR OF PROPERTY MANAGEMENT Work Phone: [facility] [place] Comment on above: Refill Request Start: 10-01-2021 End: 10-01-[address] Priscilla Arndt Work Phone: [facility] Start: 09-25-2021 End: 09-25-[address] Prisc[facility] Start: 08-21-2021 End: 08-21-2021 Emergency department patient visit Dr. Priscilla Arndt Work Phone: [facility]-Emergency Department Start: 07-24-2021 Non-patient / Non-visit Dr. Fred Arndt Work Phone: [facility] Start: 07-24-2021 End: 07-24-[address] Priscilla Arndt Work Phone: [facility]-Pulmonary Services/Neurology Start: 07-18-2021 Non-patient / Non-visit Dr. Fred Arndt Work Phone: [facility] Start: 07-18-2021 End: 07-18-[address] Priscilla Arndt Work Phone: [facility]-Pulmonary Services/Neurology Procedures Date Procedure Procedure Detail Performing Clinician Start: 01-22-2025 Plain chest X-ray Dr. Sri Arndt MD Work Phone: Start: 01-22-2025 Methadone measuremen t, urine Dr. Priscilla Arndt MD Work Phone: Start: 01-22-2025 CT of head without contrast Dr. Priscilla Arndt MD Work Phone: Start: 01-22-[address] Priscilla Arndt MD Work Phone: Start: 09-20-2024 Urnls dip stick/tabl et rgnt auto w/o microscopy Vinita Lilly CENTRAL CONTROL ROOM OPERATOR.DIRECTOR OF PROPERTY MANAGEMENT Work Phone: Start: 08-27-2024 MRI of brain with contrast Dr. Priscilla Arndt MD Work Phone: Start: 08-27-2024 Methadone measuremen t, urine Dr. Priscilla Arndt MD Work Phone: Start: 08-27-2024 Plain chest X-ray Dr. Sri Arndt MD Work Phone: Start: 08-27-2024 Carbon dioxide measurement, partial pressure Dr. Priscilla Arndt MD Work Phone: Start: 08-27-2024 Gases blood o2 satur ation only direct tonio Dr. Priscilla Arndt MD Work Phone: Start: 08-27-2024 Measurement of parti al pressure of oxygen in blood Dr. Priscilla Arndt MD Work Phone: Start: 08-27-2024 CT angiography of he ad and neck Dr. Priscilla Arndt MD Work Phone: Start: 08-27-2024 CT of head without contrast Dr. Priscilla Arndt MD Work Phone: Start: 08-27-[address] Priscilla Arndt MD Work Phone: Start: 07-08-2024 Radiologic exam ches t 2 views Jacky Ferrera CENTRAL CONTROL ROOM OPERATOR.DIRECTOR OF PROPERTY MANAGEMENT Work Phone: Start: 07-05-2024 MRI of cervical spine Suyapa Arndt MD Work Phone: Start: 07-02-[address] Priscilla Arndt MD Work Phone: Start: 10-21-2023 Plain chest X-ray Dr. Sri Arndt Work Phone: Start: 10-15-2023 Radiologic exam ches t 2 views Alycia Arnold CENTRAL CONTROL ROOM OPERATOR.DIRECTOR OF PROPERTY MANAGEMENT Work Phone: Start: 04-28-2023 Diagnostic radiograp hy of finger Start: 01-11-2023 CT of chest without contrast Start: 10-03-[address] Priscilla Arndt Work Phone: Start: 05-17-2022 Plain chest X-ray Start: 05-17-2022 Radiologic exam ches t 2 views Elida Ibarra PA-C Work Phone: Start: 03-09-2022 Plain x-ray of wrist Start: 10-01-[address] Priscilla Arndt Work Phone: Start: 08-21-2021 End: 08-21-[address] Priscilla Arndt Work Phone: Start: 08-21-2021 Plain chest X-ray Dr. Sri Arndt Work Phone: Start: 10-10-2016 Lipid 1996 panel - S marsha or Plasma Malathi Skinner CENTRAL CONTROL ROOM OPERATOR.DIRECTOR OF PROPERTY MANAGEMENT Work Phone: Start: 02-07-2009 Colonoscopy Alison Whitten CENTRAL CONTROL ROOM OPERATOR.DIRECTOR OF PROPERTY MANAGEMENT Work Phone: Influenza Types A,B Direct FA (PARAG) Legionella pneumophi la antigen assay Streptococcus pneumo niae Antigen (M Viral antigen assay Plan of Treatment Date Care Activity Detail Author Start: 04-28-2033 Urine microalbumin profile DTaP,Tdap,Td Vaccine (3 - Td or Tdap) [facility] Start: 10-14-2026 Diabetes Screening Diabetes Screenin g [facility] Start: 03-05-2026 Diabetes Screening Diabetes Screenin g [facility] Start: 02-14-2025 Influenza vaccination Influenz a Vaccine (Season Ended) [facility] Start: 01-23-2025 Hospital admission, emergency, from emergency room, medical nature [facility] Start: 01-23-2025 Serum inorganic phos phate measurement [facility] Start: 01-23-2025 Admission procedure [facility] Start: 10-14-2024 Annual PCP Team Running Instructor natividad Disease Visit Annual PCP Team Chronic Disease Visit [facility] Start: 10-02-2024 Urine microalbumin profile [facility] Start: 09-27-2024 End: 09-27-2024 ambulatory 09/27/2024 2:20 PM EDT [facility] [place] [address] [place] [address] Older, LYNDSEY RosasN.DIRECTOR OF PROPERTY MANAGEMENT [address] [place] [address] uti f/u 1 wk [facility] [place] Comment on above: uti f/u 1 wk Start: 08-28-2024 Patient discharge [facility] Start: 08-28-2024 [facility] Start: 08-28-2024 Referral to service [facility] Start: 08-28-2024 Inhalation therapy procedure [facility] Start: 08-27-2024 Following clinical pathway protocol [facility] Start: 08-27-2024 Consultation [facility] Start: 08-27-2024 Telemedicine consult ation with patient [facility] Start: 08-27-2024 Continuous pulse oximetry [facility] Start: 08-27-2024 Notification of physician [facility] Start: 08-27-2024 Oxygen therapy [facility] Start: 08-27-2024 Vital signs measurements [facility] Start: 08-27-2024 End: 08-27-2024 Admission procedure [facility] Start: 08-27-2024 End: 08-27-2024 [facility] Start: 08-27-2024 Patient referral to dietitian [facility] Start: 06-16-2024 Medicare Advantage A nnual Wellness Visit Medicare Advantage Annual Wellness Visit [facility] Start: 04-27-2024 End: 04-27-2024 Telemedicine consultation with patient 04/27/2024 9:30 AM EST Telemedicine [facility] [address] [place] [id number] Sumi Lockwood NP [address] [place] [address] [facility] Start: 03-12-2024 End: 03-12-2024 Patient encounter procedure 03/12/2024 2:00 PM EDT Office Visit [facility] [place] [address] [place], [place] [address] Priscilla Arndt MD [address] [place], [place] [address] Weight Loss Follow Up [facility] [place] Comment on above: Weight Loss Follow U p [facility] Start: 03-01-2024 DIABETES SCREEN DIABETES SCREEN [facility] Start: 02-24-2024 End: 05-25-2024 Lipid 1996 panel - Serum or Plasma LIPID PANEL BASIC Lab Routine Medication management Expected: 02/24/2024, Expires: 05/25/2024 [facility] Work Phone: Comment on above: Expected: 02/24/2024 , Expires: 05/25/2024 Start: 02-15-2024 Covid-19 Vaccine ( season) Covid-19 Vaccine ( season) [facility] Start: 02-15-2024 Covid-19 Vaccine ( season) Covid-19 Vaccine ( season) [facility] Start: 02-15-2024 Influenza vaccination [facility] Start: 10-27-2023 End: 10-27-2023 Patient encounter procedure 10/27/2023 8:45 AM EDT Office Visit General Surgery [address] [place], [place] [id number] Teresa Arechiga MD [address] [place] [id number] Shortness of breath [R06.02]; Blood in stool [K92.1]; Rectal bleeding [K62.5]; Unintentional weight loss [R63.4] General Surgery Comment on above: Shortness of breath [R06.02]; Blood in stool [K92.1]; Rectal bleeding [K62.5]; Unintentional weight loss [R63.4] Start: 10-21-2023 End: 10-21-2023 [facility] Start: 10-21-2023 [facility] Start: 10-15-2023 End: 10-15-2023 Patient encounter procedure 10/15/2023 10:00 AM EDT Office Visit Internal Medicine [place] [address] [place], [place] [address] Alycia Arnold, CENTRAL CONTROL ROOM OPERATOR.[facility] [address] [place], [place] [address] mild abd discomfort and rectal bleeding for several months, see triage encounter 10/14/23 [facility] [place] Comment on above: mild abd discomfort and rectal bleeding for several months, see triage encounter 10/14/23 Start: 04-28-2023 [facility] Start: 03-05-2023 End: 05-05-2023 Lipase [Enzymatic activity/volume] in Serum or Plasma [facility] Work Phone: Comment on above: Expected: 03/05/2023 , Expires: 05/05/2023 Start: 02-14-2023 Covid-19 Vaccine ( season) Covid-19 Vaccine ( season) [facility] Start: 02-14-2023 Influenza vaccination Influenza Vacc ine (#1) [facility] Start: 2022 RSV Vaccine (1 - 1-d ose 60+ series) RSV Vaccine (1 - 1-dose 60+ series) [facility] Start: 2022 RSV Vaccine (1 - Ris k 60-74 years 1-dose series) RSV Vaccine (1 - Risk 60-74 years 1-dose series) [facility] Start: 05-19-2022 Patient discharge [facility] Work Phone: Start: 05-19-2022 Following clinical pathway protocol [facility] Work Phone: Start: 05-18-2022 End: 05-18-2022 Following clinical pathway protocol [facility] Work Phone: Start: 05-18-2022 Assessment of risk o f venous thromboembolism [facility] Work Phone: Start: 05-18-2022 Elevation of head of bed [facility] Work Phone: Start: 05-18-2022 Insertion of cathete r into peripheral vein [facility] Work Phone: Start: 05-18-2022 Oxygen therapy [facility] Work Phone: Start: 05-18-2022 Patient education [facility] Work Phone: Start: 05-18-2022 Providing care accor ding to standard [facility] Work Phone: Start: 05-18-2022 Provision of activit y privileges [facility] Work Phone: Start: 05-18-2022 Referral to service [facility] Work Phone: Start: 05-18-2022 [facility] Work Phone: Start: 05-18-2022 Inhalation therapy procedure [facility] Work Phone: Start: 05-18-2022 Patient referral to dietitian [facility] Work Phone: Start: 05-17-2022 Verification routine [facility] Work Phone: Start: 05-17-2022 Admission procedure [facility] Work Phone: Start: 05-17-2022 End: 05-17-2022 [facility] Work Phone: Start: 05-17-2022 [facility] Work Phone: Start: 05-17-2022 End: 05-17-2022 Blood culture [facility] Work Phone: Start: 02-14-2022 Influenza vaccination INFLUENZA (#1) [facility] Start: 10-10-2021 Lipid 1996 panel - S marsha or Plasma Lipid Screening [facility] Start: 10-10-2021 Lipid panel Lipid Screening [facility] Start: 10-10-2021 LIPID SCREEN LIPID SCREEN [facility] Start: 10-10-2021 PROSTATE CANCER SCRE ENING DISCUSSION PROSTATE CANCER SCREENING DISCUSSION [facility] Start: 10-10-2021 Prostate specific an tigen measurement Prostate Cancer Screening Discussion [facility] Start: 03-21-2021 COVID-19 VACCINE (3 - Booster for Pfizer series) COVID-19 VACCINE (3 - Booster for Pfizer series) [facility] Start: 12-14-2020 COVID-19 VACCINE (3 - Booster for Pfizer series) COVID-19 VACCINE (3 - Booster for Pfizer series) [facility] Start: 12-14-2020 Covid-19 Vaccine (3 - Pfizer series) Covid-19 Vaccine (3 - Pfizer series) [facility] Start: 02-07-2019 Colonoscopy COLONOSCOPY [facility] Start: 02-07-2019 COLORECTAL CANCER SCREENING COLORECTAL CANCER SCREENING [facility] Start: 02-07-2019 Screening for malign ant neoplasm of colon [facility] Start: 12-11-2016 PNEUMOCOCCAL (2 - PCV) PNEUMOCOCCAL (2 - PCV) [facility] Start: 12-11-2016 Pneumococcal vaccination [facility] Start: 12-11-2016 Pneumococcal Vaccine : 50+ (2 of 2 - PCV) Pneumococcal Vaccine: 50+ (2 of 2 - PCV) [facility] Start: 2012 SHINGRIX VACCINE (1 of 2) CABRAL GRIX VACCINE (1 of 2) [facility] Start: 06-11-2012 FECAL OCCULT BLOOD FECAL OCCULT BLOO D [facility] Start: 06-11-2012 Screening for malign ant neoplasm of colon Fecal Occult Blood [facility] Start: 09-24-2007 COLOGUARD (FIT-DNA) COLOGUARD (FIT-D NA) [facility] Start: 09-24-[address] COLONOGRAPHY [facility] Start: 09-24-2007 Screening for malign ant neoplasm of colon [facility] Start: 09-24-2007 SIGMOIDOSCOPY SIGMOIDOSCOPY [facility] Start: 1992 Zoledronic acid therapy Alpha- 1 Antitrypsin Deficiency Screening [facility] Start: 1980 Spirometry Spirometry [facility] Bacteria identified in Blood by Culture Blood Culture [facility] Work Phone: Bacteria identified in Urine by Culture [facility] Work Phone: Bacteria identified in Urine by Culture BACTERIAL CULTURE, URINE Microbiology Routine Burning with urination 09/20/2024 10:52 AM EDT [facility] Work Phone: Basic metabolic 2008 panel with ionized calcium - Serum or Plasma [facility] Bilirubin measuremen t, urine [facility] Blood culture [facility] Work Phone: Brain natriuretic pe ptide measurement [facility] Clostridioides diffi cile toxin genes [Presence] in Stool by SOLITARIO with probe detection C. DIFFICILE PCR Lab Routine Diarrhea, unspecified type Ordered: 03/05/2023 [facility] Work Phone: Comment on above: Ordered: 03/05/2023 COVID & INFLUENZA A/ B & RSV PCR, ROUTINE COVID & INFLUENZA A/B & RSV PCR, ROUTINE Microbiology Routine Bacterial sinusitis 02/22/2024 3:08 PM EDT [facility] Work Phone: CT Chest [facility] CT Chest [facility] ENTERIC BACTERIAL PA ROSALIND BY PCR ENTERIC BACTERIAL PANEL BY PCR Lab STAT Diarrhea, unspecified type Ordered: 03/05/2023 [facility] Work Phone: Comment on above: Ordered: 03/05/2023 Hemoglobin [Presence ] in Urine [facility] Magnesium measurement [facility] Measurement of keton es in urine using dipstick [facility] Microscopic urinalysis [facility] Organism count, microscopic method [facility] Ova and parasites identified in Unspecified specimen by Light microscopy OVA + PARA MICROSCOPIC Microbiology STAT Diarrhea, unspecified type Ordered: 03/05/2023 [facility] Work Phone: Comment on above: Ordered: 03/05/2023 Patient Education [facility] Work Phone: Patient referral [facility] Work Phone: pH of Urine [facility] Serum inorganic phos phate measurement [facility] Specific gravity of Urine [facility] Urine dipstick for glucose [facility] Urine dipstick for leukocyte esterase [facility] Urine dipstick for nitrite [facility] Urine dipstick for protein [facility] Urine examination [facility] Urine microscopy: epithelial cells [facility] Urine microscopy: re d cells [facility] Urobilinogen [Presen ce] in Urine [facility] Walking distance 6 minutes [facility] White blood cell count [facility] XR Cervical spine 4 or [address] [facility] Immunizations Immunization Date Immunization Notes Care Provider Fa maggiety 04-28-2023 tetanus toxoid, redu grace diphtheria toxoid, and acellular pertussis vaccine, adsorbed [facility] 05-18-2022 influenza, injectabl e, quadrivalent, preservative free [facility] 05-18-2022 influenza, seasonal, injectable Dr. Priscilla Arndt Work Phone: [facility] 05-18-2022 influenza virus vacc ine, unspecified formulation Malathi Skinner CENTRAL CONTROL ROOM OPERATOR.DIRECTOR OF PROPERTY MANAGEMENT Work Phone: [facility] 03-01-2021 influenza, injectabl e, quadrivalent, contains preservative Alison Older CENTRAL CONTROL ROOM OPERATOR.DIRECTOR OF PROPERTY MANAGEMENT Work Phone: [facility] Work Phone: 04-05-2019 influenza, injectabl e, quadrivalent, preservative free [facility] 04-05-2019 influenza, seasonal, injectable Dr. Priscilla Arndt Work Phone: [facility] 04-05-2019 influenza, seasonal, injectable, preservative free Alison Older CENTRAL CONTROL ROOM OPERATOR.DIRECTOR OF PROPERTY MANAGEMENT Work Phone: [facility] 05-14-2018 Flucelvax Quad 2017- 2018 (PF) (flu vac qs 2018(4 yr up)CD(PF)) 60 mcg ([address] Priscilla Arndt Work Phone: [facility] Work Phone: 04-03-2018 influenza, injectabl e, quadrivalent, preservative free [facility] 04-03-2018 influenza, seasonal, injectable Dr. Priscilla Arndt Work Phone: [facility] 04-15-2017 influenza, injectabl e, quadrivalent, preservative free [facility] 04-15-2017 influenza, seasonal, injectable Dr. Priscilla Arndt Work Phone: [facility] 04-08-2016 influenza, injectabl e, quadrivalent, preservative free [facility] 04-08-2016 influenza, seasonal, injectable Dr. Priscilla Arndt Work Phone: [facility] 12-12-2015 pneumococcal polysaccharide vaccine, 23 valent Alison Whitten CENTRAL CONTROL ROOM OPERATOR.DIRECTOR OF PROPERTY MANAGEMENT Work Phone: [facility] Work Phone: 10-09-2014 tetanus toxoid, redu grace diphtheria toxoid, and acellular pertussis vaccine, adsorbed Dr. Priscilla Arndt Work Phone: [facility] 10-02-2014 tetanus toxoid, redu grace diphtheria toxoid, and acellular pertussis vaccine, adsorbed Alison Older CENTRAL CONTROL ROOM OPERATOR.DIRECTOR OF PROPERTY MANAGEMENT Work Phone: [facility] Work Phone: 10-07-[address] Kahlil Arndt Work Phone: [facility] Work Phone: 10-07-2013 pneumococcal vaccine , unspecified formulation [facility] 03-22-[address] Priscilla Arndt Work Phone: [facility] 03-22-2013 influenza virus vacc ine, unspecified formulation Alison Whitten CENTRAL CONTROL ROOM OPERATOR.DIRECTOR OF PROPERTY MANAGEMENT Work Phone: [facility] 02-07-2008 tetanus and diphther ia toxoids, adsorbed, preservative free, for adult use (2 Lf of tetanus toxoid and 2 Lf of diphtheria toxoid) Alison Whitten CENTRAL CONTROL ROOM OPERATOR.DIRECTOR OF PROPERTY MANAGEMENT Work Phone: [facility] Work Phone: Payers Date Payer Category Payer Unknown [id number] 2024 Medicare (Managed Care) [facility] HMO [id number] 2024 Unknown [id number] 2024 Unknown [id number] 2024 Self-pay [id number] 2024 Medicare [id number] 2024 Unknown [id number] 2024 Unknown [id number] 2022 Unknown [id number] 2020 Medicaid [id number] 2020 Medicare [id number]. [id number] 2017 Medicaid [id number] 1960 Unknown [id number] 2.16.840.1.677229.3.579.2. 1259 1960 Unknown [id number] 2.16.840.1.588686.3.579.2. 1259 Unknown [id number] Unknown [id number] Unknown [id number] 2.16.840.1.038866.3.579.2. 462 Unknown [id number] 2.16.840.1.007655.3.579.2. 462 Unknown [id number] 2.16.840.1.767645.3.579.2. 462 Unknown [id number] 2.16.840.1.866170.3.579.2. 462 Unknown [id number] 2.16.840.1.927942.3.579.2. 462 Unknown [id number] 2.16.840.1.853602.3.579.2. 462 Unknown [id number] 2.16.840.1.986898.3.579.2. 462 Unknown [id number] 2.16.840.1.505010.3.579.2. 462 Unknown [id number] 2.16.840.1.931998.3.579.2. 462 Unknown [id number] 2.16.840.1.377717.3.579.2. 462 Unknown [id number] 2.16.840.1.177369.3.579.2. 462 Unknown [id number] 2.16.840.1.562730.3.579.2. 462 Unknown [id number] 2.16.840.1.681622.3.579.2. 462 Unknown [id number] 2.16.840.1.880559.3.579.2. 462 Unknown [id number] 2.16.840.1.933236.3.579.2. 462 Unknown [id number] 2.16.840.1.754663.3.579.2. 462 Unknown [id number] 2.16.840.1.871886.3.579.2. 462 Unknown [id number] 2.16.840.1.803266.3.579.2. 462 Unknown [id number] 2.16.840.1.801537.3.579.2. 462 Unknown [id number] 2.16.840.1.031749.3.579.2. 462 Social History Date Type Detail Facility Start: 09-25-2021 End: 10-21-2023 Tobacco smoking status NHIS Unknown if ever smoked [facility] Start: 04-03-2018 None [facility] Start: 04-28-2020 With Family [facility] Start: 04-28-2020 Cigarettes [facility] Start: 1960 Sex Assigned At Male [facility] Start: 08-20-2017 End: 02-03-2024 Tobacco smoking status NHIS Smokes tobacco daily [facility] Work Phone: History of tobacco use Cigarette Smoker [facility] Work Phone: Start: 08-20-2017 End: 03-05-2023 Cigarettes smoked current (pack per day) - Reported 0.5 [facility] Work Phone: Start: 08-20-2017 End: 02-03-2024 Tobacco use and exposure Smokeless tobacco non-user [facility] Work Phone: Start: 04-10-2021 End: 07-08-2024 Alcohol intake Current non-drinker of alcohol (finding) [facility] Start: 09-16-2011 History SDOH Alcohol Comment Rarely [facility] Start: 08-20-2017 End: 04-15-2022 Tobacco Comment trying to quit smoke 10cigs daily [facility] Start: 1960 Sex Assigned At Not on file [facility] Start: 04-05-2022 End: 05-17-2022 Exposure to SARS-CoV-2 (event) Not sure [facility] Start: 03-01-2021 End: 03-05-2023 Tobacco use panel [facility] Work Phone: Adult Depression Screening Assessment 4 [facility] Work Phone: Start: 06-23-2023 Alcohol intake Lifetime non-d roxanne (finding) [facility] Start: 12-16-2022 Tobacco Comment Patient smokes 21-30 cigarettes/day [Moderate cigarette smoker]Thinking about quitting. [facility] Start: 12-16-2022 Alcohol Comment Caffeine: > 4 cups/day coffee [facility] Start: 08-27-2024 End: 01-23-2025 Tobacco smoking status NHIS Current Heavy tobacco smoker [facility] Start: 08-28-2024 Sex Male (finding) [facility] Goals Date Patient Goal Desired Activity /State Functional Status Date Assessment Result Facility 08-28-2024 Functional status Ambulates;Chair [facility] Work Phone: 05-19-2022 Functional status Activity Abili ty Standby Assist [facility] Work Phone: 05-18-2022 Functional status Patient Activi ty Ambulates;Bathroom Privilege [facility] Work Phone: 11-04-2014 Are you deaf, or do you have serious difficulty hearing No 11/04/2014 4:57 PM Valeri Huizar RN No [facility] 11-04-2014 Are you blind, or do you have serious difficulty seeing, even when wearing glasses No 11/04/2014 4:57 PM Valeri Huizar, JULIETTE No [facility] 11-04-2014 Do you have serious difficulty walking or climbing stairs No 11/04/2014 4:57 PM Valeri Huizar RN No [facility] 11-04-2014 Do you have difficul ty dressing or bathing No 11/04/2014 4:57 PM Valeri Huizar, JULIETTE No [facility] 11-04-2014 Because of a physica l, mental, or emotional condition, do you have difficulty doing errands alone such as visiting a physician's office or shopping No 11/04/2014 4:57 PM Valeri Huizar RN No [facility] Mental Status Date Assessment Result Facility 01-22-2025 Cognitive function Deep Pain [facility] Work Phone: 08-28-2024 Cognitive function Voice/Name [facility] Work Phone: 10-21-2023 Cognitive function Level Of Cons ciousness Awake;Alert;Appropriate;Fol lows Commands [facility] Work Phone: 05-19-2022 Cognitive function Awake;Alert;F ollows Commands [facility] Work Phone: 05-17-2022 Cognitive function Awake;Alert;Inappropri ate [facility] Work Phone: 11-04-2014 Because of a physica l, mental, or emotional condition, do you have serious difficulty concentrating, remembering, or making decisions No 11/04/2014 4:57 PM EDT Valeri Greene RN No [facility] Clinical Notes 03-21-2011 to 01-23-2025 Jacky Barahona MD - 12/07/2024 3:36 PM EDTHPromise marte LPN - 12/07/2024 9:22 AM EDT Note Date & Type Note Facility 01-23-2025 History and physi mary note [facility] 01-23-2025 Radiology Diagnostic study note [facility] Imaging Services [address], [place] [id number] Chest 1 View (Portable) MR#: [id number] Acct: [id number] Name: ELIUD BLOUNT Rep #: [id number] : 1960 M 64 From: Kadie Urena MD PCP: Dr. Priscilla Arndt MD Status: REG E R Study:Chest 1 View (Portable) Date of Exam: 01/22/25 Exam# [id number] Ordering Dr: Annia Sullivan DO PROCEDURE: CHEST 1 VIEW (PORTABLE) 01/23/2025 REASON FOR EXAM: ALTERED MENTAL STATUS TECHNIQUE: Frontal view of the chest. COMPARISON: 08/27/2024 FINDINGS: Normal heart size. Small pleural effusion/thickening. No large effusion or pneumothorax. Well inflated lungs. No consolidation, effusion, or pneumothorax. RAD/Chest 1 View (Portable) IMPRESSION: No acute chest findings Reading Location: RAD-URENA-2 CC: Dr. Priscilla Arndt MD; Jarek Sullivan DO ~ Girls Swimming Coach: Signed [facility] 01-22-2025 Radiology Diagnostic study note [facility] Imaging Services [place] [id number] STROKE Brain/Head without Cont MR#: [id number] Acct: [id number] Name: ELIUD BLOUNT Rep #: [id number] : 1960 M 64 From: Kadie Betancourt MD PCP: Dr. Priscilla Arndt MD Status: REG E R Study:STROKE Brain/Head without Cont Date of Exam: 01/22/25 Exam# [id number] Ordering Dr: Annia Sullivan DO EXAM: STROKE BRAIN/HEAD WITHOUT CONT CLINICAL HISTORY: 64 y/o M with ALTERED MENTAL STATUS. COMPARISON: MRI brain, CTA head 08/28/2023. TECHNIQUE: Routine CT imaging of the head without IV contrast. Additional multiplanar reformats were obtained. Dose reduction techniques were used including intermediate exposure control (AEC),iterative reconstruction technique, and/or mA and/or KV dose adjustments based on patient's size. FINDINGS: The ventricles, sulci and cisterns are mildly prominent, suggestive of mild brain parenchymal volume loss. There is no evidence of acute intracranial hemorrhage or herniation. There is no midline shift, masseffect, or extra-axial collection. 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 Moderate patchy supratentorial white matter hypodensities. The szymanski-white matter interfaces are otherwise maintained. The orbits, visualized paranasal sinuses and mastoids are unremarkable. No acute calvarial fracture or scalp hematoma. CT/STROKE Brain/Head without Cont IMPRESSION: No acute intracranial finding. Chronic findings as described. Dr. Betancourt discussed these findings via telephone with Dr. Sullivan at 11:42 p.m.on 01/22/2025. Reading Location: [facility] CC: Dr. Priscilla Arndt MD; Jarek Sullivan DO ~ Girls Swimming Coach: Signed [facility] 12-07-2024 Note HNO ID: [id number] Author: JACKY BARAHONA MD Service: ? Author Type: Physician Type: Progress Notes Filed: 12/07/2024 15:37 Note Text: Will forward to PCP. Not sure why they say fax to coleen Barahona. I have never seen patient. [facility] 12-07-2024 History of Present illness Narrative [...] Scan on 12/01/2024 11:18 AM by Provider, Melinda PAJuanC: Chemistry documented in this encounter [facility] 12-07-2024 Note HNO ID: [id number] Author: PROMISE WALDEN LPN Service: ? 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 November 2:46pm [facility] Work Phone: 1(305) 737-807706-13-2025 Evaluation note* Diagnosis Onset Date Resolution Status Admit Date Chronic respiratory failure chronic November 26, 2024 2:46pm Nicotine dependence, cigaret gary, uncomplicated chronic November 26, 2024 2:46pm LACEY (obstructive sleep apnea) chroni c November 26, 2024 2:46pm 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 Sumi Toledo MA [facility]04-14-2025 Miscellaneous Notes* Telephone Encounter - Sumi Toledo MA - 09/27/2024 7:52 AM EDT Patient given results and verbalized understanding of instructions given. Sumi Toledo MA * Telephone Encounter - Darcie Rodrigues OCCA - 09/26/2024 9:33 AM EDT Third attempt to reach patient by phone with no answer. Left additional VM to return call to office. NGA Saucedo * Telephone Encounter - Darcie Rodrigues OCCA - 09/26/2024 9:33 AM EDT ----- Message from Enrique Allison APRN.DIRECTOR OF PROPERTY MANAGEMENT sent at 09/21/2024 10:34 AM EDT ----- Please inform pt that the urine culture was negative showing no signs of infection. He may continueto take the antibiotic as prescribed if he feels as though they are helping with symptoms. He should follow up with his pcp. * Telephone Encounter - Sumi Toledo MA - 09/22/2024 9:33 AM EDT Left message for patient to return call. Sumi Toledo MA * Telephone Encounter - Sumi Toledo MA - 09/21/2024 11:13 AM EDT Left message for patient to return call. Sumi Toledo MA * Telephone Encounter - Sumi Toledo MA - 09/21/2024 11:13 AM EDT ----- Message from Enrique Allison APRN.DIRECTOR OF PROPERTY MANAGEMENT sent at 09/21/2024 10:34 AM EDT ----- Please inform pt that the urine culture was negative showing no signs of infection. He may continueto take the antibiotic as prescribed if he feels as though they are helping with symptoms. He should follow up with his pcp. [facility] Telephone encounter Note * Telephone Encounter - Darcie Rodrigues OCCA - 09/26/2024 9:33 AM EDT Third attempt to reach patient by phone with no answer. Left additional VM to return call to office. NGA Saucedo [facility]04-13-2025 Telephone encounter Note* Telephone Encounter - Darcie Rodrigues OCCA - 09/26/2024 9:33 AM EDT ----- Message from Enrique Allison APRN.DIRECTOR OF PROPERTY MANAGEMENT sent at 09/21/2024 10:34 AM EDT ----- Please inform pt that the urine culture was negative showing no signs of infection. He may continueto take the antibiotic as prescribed if he feels as though they are helping with symptoms. He should follow up with his pcp. [facility]04-09-2025 Telephone encounter Note* Telephone Encounter - Sumi Toledo MA - 09/22/2024 9:33 AM EDT Left message for patient to return call. Sumi Toledo MA [facility]04-08-2025 Telephone encounter Note* Telephone Encounter - Sumi Toledo MA - 09/21/2024 11:13 AM EDT Left message for patient to return call. Sumi Toledo MA [facility]04-08-2025 Telephone encounter Note* Telephone Encounter - Sumi Toledo MA - 09/21/2024 11:13 AM EDT ----- Message from Enrique Allison APRN.DIRECTOR OF PROPERTY MANAGEMENT sent at 09/21/2024 10:34 AM EDT ----- Please inform pt that the urine culture was negative showing no signs of infection. He may continueto take the antibiotic as prescribed if he feels as though they are helping with symptoms. He should follow up with his pcp. [facility]04-07-2025 NoteHNO ID: [id number] Author: VINITA LILLY APRN.DIRECTOR OF PROPERTY MANAGEMENT Service: ? Author Type: Nurse Practitioner Type: [...] Cervicalgia 07/29/2006 Chronic obstructive pulmonary disease (COPD) ([facility]) DEPRESSIVE DISORDER NEC 07/29/2006 Diabetes ([facility]) Headache(784.0) 07/29/2006 Hypertension Intracranial injury of other [...] YRS/> REDUCIBLE simple ALLERGIES Day-Nite Severe Cold-Flu [Ruohdla-Bw-Qe-Acetaminophen-Gg], Dextromethorphan, Doxylamine, Pseudoephedrine, Sertraline, Zoloft [Sertraline Hcl], Baclofen, and Nyquil [Phbqyhapk-Bxr-Dd-Acetaminophen] MEDICATIONS fluticasone (FLONASE) 50 mcg/actuation nasal spray [...] daily before breakfast. 1/2 hr before meal. hzchjgmnasl-whexzagjz-dcnutgqa (TRELEGY ELLIPTA) 100-62.5-25 mcg Inhale 1 Puff [...] sounds: Normal heart sound (more content not included)...[facility]04-07-2025 History of Present illness Narrative* Vinita Lilly APRN.DIRECTOR OF PROPERTY MANAGEMENT - 09/20/2024 10:53 AM EDT [facility] [...] Cervicalgia 07/29/2006 Chronic obstructive pulmonary disease (COPD) ([facility]) DEPRESSIVE DISORDER NEC 07/29/2006 Diabetes ([facility]) Headache(784.0) 07/29/2006 Hypertension Intracranial injury of other [...] YRS/> REDUCIBLE simple ALLERGIES Day-Nite Severe Cold-Flu [Lkjevuo-Ka-Tp-Acetaminophen-Gg], Dextromethorphan, Doxylamine, Pseudoephedrine, Sertraline, Zoloft [Sertraline Hcl], Baclofen, and Nyquil [Mqbfkkhqv-Bki-Eb-Acetaminophen] MEDICATIONS fluticasone (FLONASE) 50 mcg/actuation nasal spray [...] daily before breakfast. 1/2 hr before meal. zlzhsgjcgwi-ezwwtlgyg-wmsgbjsj (TRELEGY ELLIPTA) 100-62.5-25 mcg Inhale 1 Puff [...] concerns for prostate abnormality . Vinita Lilly APRN.DIRECTOR OF PROPERTY MANAGEMENT History and Record Review External record(s) reviewed: prior outpatient record. Findings from review of outpatient records: 11/06 GFR 107 Differential Diagnoses - prostate dysfuntction is more likely for the following reason(s): suggested by H&P - uti is less likely for the following reason(s): length of symptoms Disposition The patient was discharged. [facility] Discharge summary [facility] Medical Records Department [address] [place] [address] Instructions for Home/Discharge Instructions 08/28/24 1142 MR#: [id number] Acct: [id number] Name: ELIUD BLOUNT Rep #:[id number] : 1960 63 From: Hyun Duncan MD PCP: Dr. Priscilla Arndt MD Status:ADM I N Discharge Instructions [...] Attending Provider: Hyun Duncan Primary Care Provider: Priscilla Arndt Consulting Providers: Jone Dudley; Jeffry Bo; Magdi Serrano; Rock Dick; Calvin Jasso; Sebastian Charles; Jamal Mina; Claudine Davis; Morris Disla; Fabien Boles; Jarek Rosas; Sirisha Lorenzo; Rosaura Mosley; Barbara,Debbie; Elsi,Krishan; Jermaine Valenzuela; Joe Crouch; Sukhdeep Michelle; Erica Palacios; Kee Lagos; Mauricio Culp; Humberto Ashley; Roel Bermudez; lA Conner; Nael Grullon; Charissa Vickers; Maria M [...] Qty: 60 11RF Referrals / Follow Up: Priscilla Arndt MD [Primary Care Provider] - Within 1 Week Disposition Disposition (needs filled in before D/C Order can be placed): Home, Self Care 08/28/24 [facility] CC: Maria M Triana; Laxmi Oh; Saturnino Calixto; Swathi Pete MD; Charissa Vickers MD; Al Conner MD; Dr. Jeffry Bo MD; Dr. Nael Grullon MD; Dr. Jone Dudley MD; Dr. Magdi Serrano MD; Dr. Priscilla Arndt MD; Dr. Calvin Jasso MD; Dr. [...] Smith DO; Kandi Ray MD ~ Signed [facility]03-15-2025 [facility] Medical Records Department [address] [place] [address] Discharge Summary 08/28/24 1142 MR#: [id number] Acct: [id number] Name: ELIUD BLOUNT Rep #: [id number] : 1960 63 From: Hyun Duncan MD PCP: Dr. Priscilla Arndt MD Status:DIS IN Location: ICU [id number] Providers Date of Admission: 08/27/24 Date of Discharge: 08/28/24 Primary Care Physician: Dr. Priscilla Arndt MD Consultations 08/27/24 19:55 Consult: Assessment Technician / Pulmonary Medicine Routine Consulting Provider: Intensivists/Pulmonary [...] is on lung lung transplant list at [facility]. * Breathing treatments bronchodilators. Does not appear [...] Per ED doctor, p (more content not included)...[facility]03-15-2025 Consult note Author Sofia Smith [facility] Note Date/Time August 28, 2024 9:3 2am [facility] Medical Records Department [address] [place] [address] Consultation - Neurology 08/28/24 0821 MR#: [id number] Acct: [id number] Name: ELIUD BLOUNT Rep #:[id number] : 1960 63 From: Sofia Smith MD PCP: Dr. Priscilla Arndt MD Status:ADM I N Location: ICU [...] to normal, no concerns for his thinking. [facility] Medical History Pneumonia Pneumonia Left ankle injury [...] fluticasone fur. 200 mcg-umeclid 1 inh inhalation RISA Y #60 ea 04/15/24 Unknown Rx 62.5 [...] normal except as noted Coordination / Balance: ericln-ud-ygdv test normal and rxoy-wz-tykg test normal Speech: speech normal Gait (Neuro): [...] 43.2 L, Lymph % (Auto) 43.8 H, Bennett % (Auto) 9.7, Eos % (Auto) 2.2, [...] 2:36 pm with readback verification. [facility] Head/Neck CTA 08/27/24 14:25 IMPRESSION: RIGHT CAROTID: [...] 2:50 pm with readback verification. Reading Location: [facility]-1 Chest X-Ray 08/27/24 14:55 IMPRESSION: Stable examination. Reading Location: [facility]-1 Brain MRI 08/27/24 19:55 IMPRESSION: 1. chronic microvascular ischemic disease. 2. Otherwise, unremarkable MRI of the brain without and with contrast. REASON FOR EXAM: No acute intracranial abnormality. Chronic microvascular ischemia and involutional changes. No suspicious intracranial mass, abnormal parenchymal or leptomeningeal enhancement COMPARISON: None. Reading Location[facility] Active Medications Active Medications Active Medications: Current [...] 08/28/24 01:00 08/28/24 02:07 IV 75 mls/hr .[id number] TOMASA Administration Iopamidol 0 ml 08/27/24 19:55 [...] MD> Cosigner Signature (if applicable): CC: Dr. Priscilla Arndt MD~ Signed [facility] Work Phone: 1(251) 554-996103-15-2025 Consult note [facility] Medical Records Department [address] [place] [address] Consultation - Neurology 08/28/24 0821 MR#: [id number] Acct: [id number] Name: ELIUD BLOUNT Rep #:[id number] : 1960 63 From: Sofia Smith MD PCP: Dr. Priscilla Arndt MD Status:ADM I N Location: ICU [...] to normal, no concerns for his thinking. [facility] Medical History Pneumonia Pneumonia Left ankle injury [...] fluticasone fur. 200 mcg-umeclid 1 inh inhalation RISA Y #60 ea 04/15/24 Unknown Rx 62.5 [...] normal except as noted Coordination / Balance: laimby-zt-bsqo test normal and kjmj-rp-cynq test normal Speech: speech normal Gait (Neuro): [...] 43.2 L, Lymph % (Auto) 43.8 H, Bennett % (Auto) 9.7, Eos % (Auto) 2.2, [...] 2:36 pm with readback verification. Reading Location: [facility]-1 Head/Neck CTA 08/27/24 14:25 IMPRESSION: RIGHT CAROTID: [...] 2:50 pm with readback verification. Reading Location: [facility]- Chest X-Ray 08/27/24 14:55 IMPRESSION: Stable examination. Reading Location: [place] [address] Brain MRI 08/27/24 19:55 IMPRESSION: 1. chronic microvascular ischemic disease. 2. Otherwise, unremarkable MRI of the brain without and with contrast. REASON FOR EXAM: No acute intracranial abnormality. Chronic microvascular ischemia and involutional changes. No suspicious intracranial mass, abnormal parenchymal or leptomeningeal enhancement COMPARISON: None. Reading Location: [facility] Active Medications Active Medications Active Medications: Current [...] 08/28/24 01:00 08/28/24 02:07 IV 75 mls/hr .[id number] TOMASA Administration Iopamidol 0 ml 08/27/24 19:55 08/27/24 20:42 Contrast Allergy Safety Check IV Not Given X1 TOMASA Labetalol HCl 20 mg 08/27/24 14:22 Labetalol 20mg/4ml Syringe IV 08/28/24 14:22 X1 PRN Blood Pressure Sodium Chloride 10 - 40 ml 08/27/24 20:01 0.9% Saline Lock 10 Ml Syringe IV UD PRN SALINE FLUSH 08/28/24 0932 Cosigner Signature (if applicable): CC: Dr. Priscilla Arndt MD~ Signed [facility]03-15-2025 Consult note Author Krishan Calzada [facility] Note Date/Time August 28, 2024 1:0 6am [facility] Medical Records Department [address] [place] [address] Consultation - Assessment Technician 08/28/24 0053 MR#: [id number] Acct: [id number] Name: ELIUD BLOUNT Rep #:[id number] : 1960 63 From: Krishan Calzada MD PCP: Dr. Priscilla Arndt MD Status:ADM I N Location: ICU CVICU20 2-[address] Krishan Calzada MD on 08/28/24 at 0106 Addendum We will follow peripherally 08/28/24 0106<Electronically signed by Krishan Calzada MD> Cosigner Signature (if applicable): cc: Dr. Priscilla Arndt MD ~* Signed HPI Consult Data [...] head on the radiator. Upon arrival to [place], his laboratory data revealed a slightly elevated [...] All other systems werereviewed and were negative. [facility] Medical History (Updated 08/27/24 @ 16:49 by [...] fluticasone fur. 200 mcg-umeclid 1 inh inhalation RISA Y #60 ea 04/15/24 Unknown Rx 62.5 [...] mls @ 75 mls/hr 08/28/24 01:00 IV .[id number] TOMASA Iopamidol 0 ml 08/27/24 19:55 08/27/24 [...] 43.2 L, Lymph % (Auto) 43.8 H, Bennett % (Auto) 9.7, Eos % (Auto) 2.2, [...] 2:36 pm with readback verification. Reading Location: [place] [address] Head/Neck CTA 08/27/24 14:25 IMPRESSION: RIGHT CAROTID: [...] 2:50 pm with readback verification. Reading Location: [place] [address] Chest X-Ray 08/27/24 14:55 IMPRESSION: Stable examination. Reading Location: [place] [address] Brain MRI 08/27/24 19:55 IMPRESSION: 1. chronic microvascular ischemic disease. 2. Otherwise, unremarkable MRI of the brain without and with contrast. REASON FOR EXAM: No acute intracranial abnormality. Chronic microvascular ischemia and involutional changes. No suspicious intracranial mass, abnormal parenchymal or leptomeningeal enhancement COMPARISON: None. Reading Location: [facility] Assessment and Plan . Assessment and plan: [...] MD> Cosigner Signature (if applicable): CC: Dr. Priscilla Arndt MD~ Signed [facility] Work Phone: 1(853) 462-751703-15-2025 Consult note [facility] Medical Records Department [address] [place] [address] Consultation - Assessment Technician 08/28/24 0053 MR#: [id number] Acct: [id number] Name: ELIUD BLOUNT Rep #:[id number] : 1960 63 From: Krishan Calzada MD PCP: Dr. Priscilla Arndt MD Status:ADM I N Location: ICU CVICU20 2-[address] Krishan Calzada MD on 08/28/24 at 0106 Addendum We will follow peripherally 08/28/24 0106 Cosigner Signature (if applicable): cc: Dr. Priscilla Arndt MD ~* Signed HPI Consult Data [...] head on the radiator. Upon arrival to [place], his laboratory data revealed a slightly elevated [...] All other systems werereviewed and were negative. [facility] Medical History (Updated 08/27/24 @ 16:49 by [...] fluticasone fur. 200 mcg-umeclid 1 inh inhalation RISA Y #60 ea 04/15/24 Unknown Rx 62.5 [...] mls @ 75 mls/hr 08/28/24 01:00 IV .[id number] TOMASA Iopamidol 0 ml 08/27/24 19:55 08/27/24 [...] 43.2 L, Lymph % (Auto) 43.8 H, Bennett % (Auto) 9.7, Eos % (Auto) 2.2, [...] 2:36 pm with readback verification. [facility] Head/Neck CTA 08/27/24 14:25 IMPRESSION: RIGHT CAROTID: [...] 2:50 pm with readback verification. Reading Location: [facility]-1 Chest X-Ray 08/27/24 14:55 IMPRESSION: Stable examination. Reading Location: [facility]-1 Brain MRI 08/27/24 19:55 IMPRESSION: 1. chronic microvascular ischemic disease. 2. Otherwise, unremarkable MRI of the brain without and with contrast. REASON FOR EXAM: No acute intracranial abnormality. Chronic microvascular ischemia and involutional changes. No suspicious intracranial mass, abnormal parenchymal or leptomeningeal enhancement COMPARISON: None. Reading Location[facility] Assessment and Plan . Assessment and plan: [...] 0104 Cosigner Signature (if applicable): CC: Dr. Priscilla Arndt MD~ Signed [facility]03-14-2025 History and physical note Author Hyun Duncan [facility] Note Date/Time August 27, 2024 6:2 6pm [facility] Medical Records Department [address] [place] [address] H&P Exam - Hospitalist 08/27/24 1640 MR#: [id number] Acct: [id number] Name: ELIUD BLOUNT Rep #:[id number] : 1960 63 From: Hyun Duncan MD PCP: Dr. Priscilla Arndt MD Status:ADM I N Location: ICU [...] is on the lung transplant list at [facility]. He was brought in to the ED due to concern about a stroke. Vitals in the ED were BP oif 101/74, GA of 73, RR of 10 and oxygen [...] managed for acute encephalopathy of unclear etiology. [facility] Medical History (Updated 08/27/24 @ 16:49 by [...] fluticasone fur. 200 mcg-umeclid 1 inh inhalation RISA Y #60 ea 04/15/24 Unknown Rx 62.5 [...] 43.2 L, Lymph % (Auto) 43.8 H, Bennett % (Auto) 9.7, Eos % (Auto) 2.2, [...] 2:36 pm with readback verification. Reading Location: [facility]-1 Head/Neck CTA 08/27/24 14:25 IMPRESSION: RIGHT [...] 2:50 pm with readback verification. Reading Location: [facility]-1 Chest X-Ray 08/27/24 14:55 IMPRESSION: Stable examination. Reading Location: [facility]-1 Assessment & Plan Assessment/Plan (1) Mental [...] is on lung lung transplant list at [facility]. * Breathing treatments bronchodilators. Does not appear to be in exacerbation. Titrate oxygen to maintain saturation above 90%. * #History of depression and bipolar disorder: Hold antidepressant and bipolar medication as he is currently n.p.o. DVT prophylaxis: Lovenox CODE STATUS code patient presumptively made full code as he is confused unable to do CODE STATUS discussion. Charges/Coding Visit Charges Inpatient E&M: 42068 Init Hosp L3 Procedures Hospitalists Procedures: 01940 Advncd Care Plan 30 Min 08/27/24 182 <Electronically signed by Hyun Duncan MD> Cosigner Signature (if applicable): CC: Dr. Priscilla Arndt MD; Dr. Hyun Duncan MD~ Signed [facility] Work Phone: 1(761) 561-363103-14-2025 Evaluation note* Diagnosis Onset Date Resolution Status [...] GOLD classification chronic November 26, 2024 2:46pm [facility] Work Phone: 1(345) 769-727503-14-2025 Discharge summary Author Miguel Ángel Liao [facility] Note Date/Time August 27, 2024 4:5 5pm [facility] Medical Records Department [address] [place] [address] Emergency Department Summary 08/27/24 MR#: [id number] Acct: [id number] Name: ELIUD BLOUNT Rep #:[id number] : 1960 63 From: Miguel Ángel Liao MD PCP: Dr. Priscilla Arndt MD Status:REG E R Location: ED ADDENDUM by Dr. Miguel Ángel Liao MD on 08/27/24 at 1654 EKG had been obtained as well as part of the stroke workup and interpreted by myself independently as normal sinus rhythm at 81 bpm without ectopy or acute STchanges. No STEMI. 08/27/24 1654<Electronically signed by Miguel Ángel Liao MD> Cosigner Signature (if applicable): cc: Dr. Priscilla Arndt MD ~* Signed HPI History of [...] He presents as a prehospital stroke team. [facility] Medical History (Updated 08/27/24 @ 16:49 by [...] fluticasone fur. 200 mcg-umeclid 1 inh inhalation RISA Y #60 ea 04/15/24 Unknown Rx 62.5 [...] 43.2 L Lymph % (Auto) 43.8 H Bennett % (Auto) 9.7 Eos % (Auto) 2.2 [...] 2:36 pm with readback verification. Reading Location: [facility]--1 Head/Neck CTA 08/27/24 14:25 IMPRESSION: RIGHT CAROTID: [...] 2:50 pm with readback verification. Reading Location: [facility]--1 Chest X-Ray 08/27/24 14:55 IMPRESSION: Stable examination. Reading Location: [facility]-IR-1 Management Discussion w/another healthcare provider: Hospitalist Discharge Plan Dx/Rx/DC Orders Clinical Impression: Unresponsive, COPD (chronic obstructive pulmonary disease), Mental status, decreased, Closed head injury Disposition Disposition: Acute Care [facility] What to do if you have Problems For any increased pain, shortness of breath, bleeding, nausea or vomiting, chestpain, or any unexpected problems, contact your Primary Care Provider. Call [facility] ([phone]) or report to the closest Emergency Room. Call 911 if necessary. 08/27/24 1651 <Electronically signed by Miguel Ángel Liao MD> Cosigner Signature (if applicable): CC: Dr. Priscilla Arndt MD ~ Signed [facility] Work Phone: 1(203) 454-841903-14-2025 History and physical note [facility] Medical Records Department [address] [facility] [place] [address] H&P Exam - Hospitalist 08/27/24 1640 MR#: [id number] Acct: [id number] Name: ELIUD BLOUNT Rep #:[id number] : 1960 63 From: Hyun Duncan MD PCP: Dr. Priscilla Arndt MD Status:ADM I N Location: ICU [...] is on the lung transplant list at [facility]. He was brought in to the ED due to concern about a stroke. Vitals in the ED were BP oif 101/74, GA of 73, RR of 10 and oxygen [...] managed for acute encephalopathy of unclear etiology. [facility] Medical History (Updated 08/27/24 @ 16:49 by [...] fluticasone fur. 200 mcg-umeclid 1 inh inhalation RISA Y #60 ea 04/15/24 Unknown Rx 62.5 [...] 43.2 L, Lymph % (Auto) 43.8 H, Bennett % (Auto) 9.7, Eos % (Auto) 2.2, [...] 2:36 pm with readback verification. Reading Location: [facility]-1 Head/Neck CTA 08/27/24 14:25 IMPRESSION: RIGHT [...] 2:50 pm with readback verification. Reading Location: [facility]-1 Chest X-Ray 08/27/24 14:55 IMPRESSION: Stable examination. Reading Location: [facility]-1 Assessment & Plan Assessment/Plan (1) Mental [...] is on lung lung transplant list at [facility]. * Breathing treatments bronchodilators. Does not appear to be in exacerbation. Titrate oxygen to maintain saturation above 90%. * #History of depression and bipolar disorder: Hold antidepressant and bipolar medication as he is currently n.p.o. DVT prophylaxis: Lovenox CODE STATUS code patient presumptively made full code as he is confused unable to do CODE STATUS discussion. Charges/Coding Visit Charges Inpatient E&M: 80864 Init Hosp L3 Procedures Hospitalists Procedures: 06481 Advncd Care Plan 30 Min 08/27/24 1826 Cosigner Signature (if applicable): CC: Dr. Priscilla Arndt MD; Dr. Hyun Duncan MD~ Signed [facility]03-14-2025 Discharge summary [facility] Medical Records Department [address] [place] [address] Emergency Department Summary 08/27/24 MR#: [id number] Acct: [id number] Name: ELIUD BLOUNT Rep #:[id number] : 1960 63 From: Miguel Ángel Liao MD PCP: Dr. Priscilla Arndt MD Status:REG E R Location: ED ADDENDUM by Dr. Miguel Ángel Liao MD on 08/27/24 at 1654 EKG had been obtained as well as part of the stroke workup and interpreted by myself independently as normal sinus rhythm at 81 bpm without ectopy or acute STchanges. No STEMI. 08/27/24 1654 Cosigner Signature (if applicable): cc: Dr. Priscilla Arndt MD ~* Signed HPI History of [...] He presents as a prehospital stroke team. [facility] Medical History (Updated 08/27/24 @ 16:49 by [...] fluticasone fur. 200 mcg-umeclid 1 inh inhalation RISA Y #60 ea 04/15/24 Unknown Rx 62.5 [...] 43.2 L Lymph % (Auto) 43.8 H Bennett % (Auto) 9.7 Eos % (Auto) 2.2 [...] 2:36 pm with readback verification. Reading Location: [facility]-1 Head/Neck CTA 08/27/24 14:25 IMPRESSION: RIGHT [...] 2:50 pm with readback verification. Reading Location: [facility]--1 Chest X-Ray 08/27/24 14:55 IMPRESSION: Stable examination. Reading Location: [facility]-1 Management Discussion w/another healthcare provider: Hospitalist Discharge Plan Dx/Rx/DC Orders Clinical Impression: Unresponsive, COPD (chronic obstructive pulmonary disease), Mental status, decreased, Closed head injury Disposition Disposition: Acute Care [facility] What to do if you have Problems For any increased pain, shortness of breath, bleeding, nausea or vomiting, chestpain, or any unexpected problems, contact your Primary Care Provider. Call [facility] ([phone]) or report tothe closest Emergency Room. Call 911 if necessary. 08/27/24 1651 Cosigner Signature (if applicable): CC: Dr. Priscilla Arndt MD ~ Signed [facility]03-14-2025 Radiology Diagnostic study note [facility] Imaging Services [address] [place] [address] Chest 1 View MR#: [id number] Acct: [id number] Name: ELIUD BLOUNT Rep #: [id number] : 1960 M 63 From: Raj Oliveira MD PCP: Dr. Priscilla Arndt MD Status: REG E R Study:Chest 1 View Date of Exam: 5 Exam# [id number] Ordering Dr: Miguel Ángel Liao MD PROCEDURE: [...] 1 View IMPRESSION: Stable examination. Reading Location: [place] [address] CC: Dr. Miguel Ángel Liao MD; Dr. Priscilla Arndt MD ~ Girls Swimming Coach: Signed [facility]03-14-2025 Radiology Diagnostic study note [facility] Imaging Services [address] [place] [id number] STROKE CTA Head AND Neck W/Con MR#: [id number] Acct: [id number] Name: ELIUD BLOUNT Rep #: [id number] : 1960 M 63 From: Raj Oliveira MD PCP: Dr. Priscilla Arndt MD Status: REG E R Study:STROKE CTA Head AND Neck W/Con Date of Exam: 08/27/24 Exam# [id number] Ordering Dr: Miguel Ángel Liao MD PROCEDURE: [...] 2:50 pm with readback verification. Reading Location: [place] [address] CC: Dr. Miguel Ángel Liao MD; Dr. Priscilla Arndt MD ~ Girls Swimming Coach: Signed [facility]03-14-2025 Radiology Diagnostic study note [facility] Imaging Services [address] [place] [address] STROKE Brain/Head without Cont MR#: [id number] Acct: [id number] Name: ELIUD BLOUNT Rep #: [id number] : 1960 M 63 From: Raj Oliveira MD PCP: Dr. Priscilla Anrdt MD Status: REG E R Study:STROKE Brain/Head without Cont Date of Exam: 08/27/24 Exam# [id number] Ordering Dr: Miguel Ángel Liao MD EXAM: [...] 2:36 pm with readback verification. Reading Location: [place] [address] CC: Dr. Miguel Ángel Liao MD; Dr. Priscilla Arndt MD ~ Girls Swimming Coach: Signed [facility]01-23-2025 History of Present illness Narrative* Anette [...] PATIENT PRESENTS WITH AN IMPLANTABLE OR ATTACHED MACHINE TOOL DRESSER: No RADIOLOGY DEPARTMENT: General X-ray: Exam(s) Completed: Chest X-Ray PERIPHERAL IV DATA: Not applicable SIGNED BY: RT Alex(R) July 08, 2024 3:29 PM documented [facility]2025 NoteHNO ID: [id number] Author: ANETTE BECERRA RT(Basim) Service: Radiology Author [...] PATIENT PRESENTS WITH AN IMPLANTABLE OR ATTACHED MACHINE TOOL DRESSER: No RADIOLOGY DEPARTMENT: General X-ray: Exam(s) Completed: Chest X-Ray PERIPHERAL IV DATA: Not applicable SIGNED BY: RT Alex(R) July 08, 2024 3:29 [facility]01-23-2025 NoteHNO ID: [id number] Author: JACKY FERRERA APRN.DIRECTOR OF PROPERTY MANAGEMENT Service: ? Author Type: Nurse Practitioner Type: Progress Notes Filed: 07/08/2024 16:04 Note Text: Subjective HPI Nontoxic-appearing male presents urgent care chief complaint cough chest congestion sinus pressure. Duration of symptom 1 to 2 months. Associated symptoms listed above. Presents today for evaluation. States history of COPD. Hooker Inspector recommended using Mucinex. This is not helped. [...] YRS/> REDUCIBLE simple ALLERGIES Day-Nite Severe Cold-Flu [Gafdyso-Yu-Qc-Acetaminophen-Gg], Dextromethorphan, Doxylamine, Pseudoephedrine, Sertraline, Zoloft [Sertraline Hcl], Baclofen, and Nyquil [Mkpyxkyvo-Zml-Ki-Acetaminophen] MEDICATIONS fluticasone (FLONASE) 50 mcg/actuation nasal spray [...] daily before breakfast. 1/2 hr before meal. tiewkswkiba-uejmumlje-jbrggqic (TRELEGY ELLIPTA) 100-62.5-25 mcg Inhale 1 Puff [...] shortness of breath. Ne (more content not included)...[facility]01-23-2025 History of Present illness Narrative* Jacky Ferrera APRN.DIRECTOR OF PROPERTY MANAGEMENT - 07/08/2024 3:15 PM EST Subjective HPI Nontoxic-appearing male presents urgent care chief complaint cough chest congestion sinus pressure.Duration of symptom 1 to 2 months. Associated symptoms listed above. Presents today for evaluation.States history of COPD. Hooker Inspector recommended using Mucinex. This is not helped. [...] Cervicalgia 07/29/2006 Chronic obstructive pulmonary disease (COPD) ([facility]) DEPRESSIVE DISORDER NEC 07/29/2006 Diabetes ([facility]) Headache(784.0) 07/29/2006 Hypertension Intracranial injury of other [...] YRS/> REDUCIBLE simple ALLERGIES Day-Nite Severe Cold-Flu [Ejkvwqa-Jf-Yb-Acetaminophen-Gg], Dextromethorphan, Doxylamine, Pseudoephedrine, Sertraline, Zoloft [Sertraline Hcl], Baclofen, and Nyquil [Zqdqmripj-Mnm-Sf-Acetaminophen] MEDICATIONS fluticasone (FLONASE) 50 mcg/actuation nasal spray [...] daily before breakfast. 1/2 hr before meal. ikumljeppgt-tjmxiysec-ixkbmvvl (TRELEGY ELLIPTA) 100-62.5-25 mcg Inhale 1 Puff [...] of care. This note was generated using [employer] software. It may contain errors in wording, punctuation, or spelling. Jacky Ferrera APRN.DIRECTOR OF PROPERTY MANAGEMENT documented in this encounterLanc[facility]12-27-2024 Telephone encounter Note * Telephone Encounter - Elise Proctor RN - 06/11/2024 4:54 PM EST Idris from [facility] calling and states they are now pt's pharmacy and he is [facility]ills [facility] for pt's Prednisone and Doxycycline. Explained to Idris that [facility] does not order usp prescriptions and is not pt's PCP. Also explained that Prednisone and Doxycycline are not usp meds. Pt would not be receiving these meds from his mail order pharmacy. Also noted that ptdoes not have [facility] down as his pharmacy. Called and spoke with pt about all of the above. Pt states that yes he is going to start using [facility] and keep [facility] as his local pharmacy. In talking with pt, he states he is still having some URI symptoms and sinus issues. Was last seen in [facility] on 05/19/24 and was prescribed Prednisone, Doxycycline and Augmentin. Pt has a history of COPD and does have an appt with his lung doctor on Friday afternoon. He will follow up with them and call us back if needed. Pharmacies and phone numbers updated. [facility]12-27-2024 Miscellaneous Notes* Telephone Encounter - Elise Proctor RN - 06/11/2024 4:54 PM EST Idris from [facility] calling and states they are now pt's pharmacy and he is requesting refills from[facility] for pt's Prednisone and Doxycycline. Explained to Idris that [facility] does not order terminal clerk prescriptions and is not pt's PCP. Also explained that Prednisone and Doxycycline are not terminal clerk meds. Pt would not be receiving these meds from his mail order pharmacy. Also noted that ptdoes not have [facility] down as his pharmacy. Called and spoke with pt about all of the above. Pt states that yes he is going to start using [facility] and keep [facility] as his local pharmacy. In talking with pt, he states he is still having some URI symptoms and sinus issues. Was last seen in [facility] on 05/19/24 and was prescribed Prednisone, Doxycycline and Augmentin. Pt has a history of COPD and does have an appt with his lung doctor on Friday afternoon. He will follow up with them and call us back if needed. Pharmacies and phone numbers updated. documented in this encounterLancaster [facility]12-12-2024 Evaluation note* Diagnosis Onset Date Resolution Status Admit Date Cervical myelopathy with cervical radiculopathy acute May 27, 2024 1:26pm Chronic respiratory failure chronic June 14, 2024 2:43pm Nicotine dependence, cigarettes, uncomplicated chronic Decemb er 2023 2:43pm LACEY (obstructive sleep apnea) chroni c June 14, 2024 2:43pm Stage 4 very severe COPD by GOLD classification chronic May 2:43pm [facility] Chronic respiratory failure chronic July [...] disease) chronic August 27, 2 025 5:01pm [facility] Work Phone: 1(740) 704-779412-04-2024 Instructions* Patient Instructions* Victorino Parsons APRN.DIRECTOR OF PROPERTY MANAGEMENT - 05/19/2024 5:19 PM EST ASSESSMENT/PLAN: 1. [...] analgesia. - Discussed expected course of illness Victorino Parsons APRN.DIRECTOR OF PROPERTY MANAGEMENT documented in this encounterLancaster Municipal Hospital12-04-2024 NoteHNO ID: [id number] Author: VICTORINO PARSONS APRN.ASHOK Service: ? Author Type: Nurse [...] Cervicalgia 07/29/2006 Chronic obstructive pulmonary disease (COPD) ([facility]) DEPRESSIVE DISORDER NEC 07/29/2006 Diabetes ([facility]) Headache(784.0) 07/29/2006 Hypertension Intracranial injury of other [...] YRS/> REDUCIBLE simple ALLERGIES Day-Nite Severe Cold-Flu [Dbrnntf-Os-Yf-Acetaminophen-Gg], Dextromethorphan, Doxylamine, Pseudoephedrine, Sertraline, Zoloft [Sertraline Hcl], Baclofen, and Nyquil [Ipfknhivl-Huv-Bl-Acetaminophen] MEDICATIONS amitriptyline (ELAVIL) 100 mg tablet Take [...] daily before breakfast. 1/2 hr before meal. hmqeneczjxt-klobsyvvk-wmiefyqe (TRELEGY ELLIPTA) 100-62.5-25 mcg Inhale 1 Puff [...] (14.0 ttl pk-yrs) Types (more content not included)...[facility]12-04-2024 History of Present illness Narrative* Victorino Parsons APRN.DIRECTOR OF PROPERTY MANAGEMENT - 05/19/2024 5:16 PM EST Subjective Cough [...] Wt 57 kg (125 lb 10.6 oz) EaJ417% BMI 19.68 kg/m PAST MEDICAL HISTORY Diagnosis [...] YRS/> REDUCIBLE simple ALLERGIES Day-Nite Severe Cold-Flu [Gozgehn-Jc-Wq-Acetaminophen-Gg], Dextromethorphan, Doxylamine, Pseudoephedrine, Sertraline, Zoloft [Sertraline Hcl], Baclofen, and Nyquil [Tbdqnpufj-Dmu-Ez-Acetaminophen] MEDICATIONS amitriptyline (ELAVIL) 100 mg tablet Take [...] daily before breakfast. 1/2 hr before meal. gzrupnrruwu-nodbhxiva-qgyvmkol (TRELEGY ELLIPTA) 100-62.5-25 mcg Inhale 1 Puff [...] analgesia. - Discussed expected course of illness Victorino Parsons APRN.DIRECTOR OF PROPERTY MANAGEMENT documented in this encounterLancaster Municipal Hospital11-05-2024 Telephone encounter Note * Telephone Encounter - Sumi Lockwood NP - 04/20/2024 2:43 PM EST No change in gbn 800 mg tid, spoke with pharmacy clarifying filling rx from 05/2023 gbn 600 mg tid,discontinued. Was receiving 800 mg tid, ok to continue. Spoke with spouse updated. Rx sent to new pharmacy [facility] [id number] Miscellaneous Notes* Telephone Encounter - Sumi Lockwood NP - 04/20/2024 2:43 PM EST [...] their info on it documented in this encounterSaint John's [facility] CenterRlrrlmupea09-67-7978 Telephone encounter Note* Telephone Encounter - Anjali [...] a request w/ their info on it [facility] CenterYxvmfjwfgu43-01-0000 [facility] Medical Records Department [address] [place] [id number] Discharge Summary 03/30/24711 MR#: [id number] Acct: [id number] Name: ELIUD BLOUNT Rep #: [id number] : 1960 63 From: Calvin Pedro MD PCP: Dr. Priscilla Arndt MD Status:DIS TEX Location: [place] [id number] Providers Date of Admission: 03/28/24 Date of Discharge: 03/29/24 Primary Care Physician: Dr. Priscilla Arndt MD Consultations 03/28/24 19:31 Consult: Tele-Neurology [...] of his management consult was placed to [facility] teleneurology???patient MRI came back negative for acute CVA[facility] evaluation [...] dysfunction. Ordering Physician: P (more content not included)...[facility] 03-28-2024 NoteHNO ID: [id number] Author: VINITA LILLY APRN.ASHOK Service: ? Author Type: Nurse Practitioner Type: Progress Notes Filed: 03/28/2024 14:59 Note Text: Patient triaged at [facility], here today with sudden onset contracture and weakness of right arm. Unable to use right arm. I will refer to ER. Visitor to drive pov to ER. Patient ambulating well unassisted. Talking in full sentences.[facility]10-13-2024 History of Present illness Narrative* Vinita Lilly APRN.CNP - 03/28/2024 2:58 PM EDT Patient triaged at [facility], here today with sudden onset contracture and weakness of right arm. Unable to use right arm. I will refer to ER. Visitor to drive pov to ER. Patient ambulating well unassisted. Talking in full sentences. documented in this encounterLancaster Municipal Hospital09-10-2024 NotePatient Outreach (INTMMN) ELIUD BLOUNT ([id number]) 1960 M Date Time Provider Department 02/24/24 PRISCILLA ARNDT During your visit today, we recorded [...] it and was in the icu NYQUIL (MYSKGCGGC-KGX-YK-ACETAMIN*07/08/2007 5 - Intolerance Date Reviewed: 02/22/2024 Reviewed by: Madison Wagner LPN - Fully Assessed Visit Diagnosis:Medication management [Z79.899] Order(s):LIPID PANEL BASIC [SQLIPB] Order #: [id number] FUTURE Prescriptions as of 02/27/2024 - doxycycline [...] before breakfast. 1/2 hr before meal. - ineltaqhlbc-usujemvlc-gdaxqmpv (TRELEGY ELLIPTA) 100-62.5-25 mcg Inhale 1 Puff [...] NOS [E55.9] 04/30/2007 Rotator cuff dis NEC [ESO2095] 05/20/2007 08/07/2010 Brachial neuritis or radiculitis NOS [...] pulmonary disease (HCC) [J4*10/15/2023 Encounter Status:Closed by [employer], PRODUSER on 02/27/24[facility] 02-23-2024 Telephone encounter Note* Telephone Encounter - Shila Roth MA - 02/23/2024 9:49 AM EDT Will send unable to reach letter to contact office for results & update ALL contact information. Shila Roth MA [facility]09-09-2024 Miscellaneous Notes* Telephone Encounter - Shila Roth MA - 02/23/2024 9:49 AM EDT Will send unable to reach letter to contact office for results & update ALL contact information. Shila Roth MA * Telephone Encounter - Sumi Toledo MA - 02/23/2024 8:22 AM EDT both numbers are disconnected states that in the previous note. Sumi Toledo MA * Telephone Encounter - Vinita Lilly APRN.CNP - 02/23/2024 7:20 AM EDT Please notify positive for covid. Is past treatment window for antiviral treatment and quarantine. Continue with plan of care as discussed during visit. documented in this encounterLancaster Municipal Hospital09-09-2024 Telephone encounter Note * Telephone Encounter - Sumi Toledo MA - 02/23/2024 8:22 AM EDT both numbers are disconnected states that in the previous note. Sumi Toledo MA [facility]09-09-2024 Telephone encounter Note* Telephone Encounter - Vinita Lilly APRN.CNP - 02/23/2024 7:20 AM EDT Please notify positive for covid. Is past treatment window for antiviral treatment and quarantine. Continue with plan of care as discussed during visit. [facility] Work Phone: 1(513) 498-387409-08-2024 NoteHNO ID: [id number] Author: XOCHILT CABRALES APRN.CNP Service: ? Author Type: Nurse Practitioner Type: Progress Notes Filed: 02/22/2024 14:51 Note Text: Subjective The history is provided by the patient. No american sign language interpreter was used. SETH Blount is [...] No date: Chronic obstructive pulmonary disease (COPD) ([facility]) 07/29/2006: DEPRESSIVE DISORDER NEC No date: Diabetes ([facility]) 07/29/2006: Headache(784.0) No date: Hypertension No date: [...] have confirmed and edited as necessary, the [facility] Review of Systems Constitutional: Negative for chills [...] detail warranting prompt ER evaluation. Xochilt Cabrales APRN.ASHOKNorwalk Memorial Hospital09-08-2024 History of Present illness Narrative* Xochilt Cabrales APRN.DIRECTOR OF PROPERTY MANAGEMENT - 02/22/2024 2:28 PM EDT Subjective The history is provided by the patient. No american sign language interpreter was used. HPI Eliud Blount [...] No date: Chronic obstructive pulmonary disease (COPD) ([facility]) 07/29/2006: DEPRESSIVE DISORDER NEC No date: Diabetes ([facility]) 07/29/2006: Headache(784.0) No date: Hypertension No date: [...] have confirmed and edited as necessary, the [facility] Review of Systems Constitutional: Negative for chills [...] indetail warranting prompt ER evaluation. Xochilt Cabrales APRN.ASHOK documented in this encounterLancaster Municipal Hospital08-20-2024 Instructions* Patient Instructions* Lv Hidalgo APRN.CNP - 02/03/2024 2:28 PM EDT [...] that cause allergies) or sexually transmitted infections. [place] eye caused by bacteria, viruses, and sexually [...] vision increased sensitivity to light See your crate tier (a doctor trained to treat eye conditions) or family doctor if you have any of these persistent symptoms. Ear infections also commonly occur in children who have bacterial conjunctivitis. The crate tier will examine your eyes and possibly take [...] conjunctivitis should be checked out by your crate tier and an migratory farm hand. It may disappear completely when the allergy [...] Centers for Disease Control and Prevention. Conjunctivitis ([place] Eye) Accessed 08/26/2013. [place] [employer]. Conjunctivitis: What Is Nekoma Eye? Accessed 08/26/2013. Copyright 3039-3150 The [facility]. All rights reserved This information is provided by the [facility] and is not intended to replace the medical advice of your doctor or health care provider. Please consult your health care provider for advice about a specific medical condition. For additional health information, please contact the Center for Consumer Health Information at the [facility] or toll-free extension [phone]. If you prefer, you may visit [email or web address] or [email or web address]. documented in this encounterLancaster Municipal Hospital08-20-2024 NoteHNO ID: [id number] Author: LV HIDALGO APRN.CNP Service: ? Author Type: Nurse Practitioner [...] verbalized understanding and agreement with this plan. Lv Hidalgo APRN.[facility]08-20-2024 History of Present illness Narrative* Lv Hidalgo APRN.DIRECTOR OF PROPERTY MANAGEMENT - 02/03/2024 2:21 PM EDT Patient presents [...] verbalized understanding and agreement with this plan. Lv Hidalgo APRN.DIRECTOR OF PROPERTY MANAGEMENT documented in this encounterLancaster Municipal Hospital05-09-2024 Telephone encounter Note * Telephone Encounter - Zain Weiss MA - 10/23/2023 12:21 PM EDT Home phone listed - individual answering stated that was the wrong number. Removed from chart. TC to other line states it is no longer in service. Mailed pt letter asking for him to contact the office. [facility]05-09-[facility]24 Miscellaneous Notes* Telephone Encounter - Zain Weiss [...] PM EDT ----- Message from Alycia Arnold APRN.DIRECTOR OF PROPERTY MANAGEMENT sent at 10/20/2023 10:38 AM EDT ----- Please let the patient know chest x-ray findings consistent with COPD, otherwise normal. Follow-up with [facility] regarding SOB. Lab results were all within acceptable limits. Keep appointment with general surgery as scheduled Alycia Arnold APRN.DIRECTOR OF PROPERTY MANAGEMENT documented in this encounterLancaster Municipal Hospital05-07-2024 Discharge summary Author Fabricio Kwong [facility] October 21, 2023 2:51pm Note Date/Time October 21, 2023 10:52a [facility] Medical Records Department [address] [place] [address] Emergency Department Summary 10/21/23 MR#: [id number] Acct: [id number] Name: ELIUD BLOUNT Rep #:[id number] : 1960 63 From: Fabricio Kwong MD PCP: Dr. Priscilla Arndt MD Status:REG E R Location: ED [...] similar symptoms: Yes Recent Illness/Hospitalization: No PFSH [facility] Medical History (Updated 10/21/23 @ 14:48 by [...] QHS sleep 06/30/19 [History Last Taken 08/21/19] gxlimggr-kj-btkrp 300 mcg-K 60 mcg-lycop 600 mcg-lutein 300 [...] 750 mg PO BID Check with primary ugsdii37/03/22 [History Last Taken Unknown] albuterol sulfate 90 [...] 42.0 L Lymph % (Auto) 43.1 H Bennett % (Auto) 9.8 Eos % (Auto) 4.3 [...] 13:17 EDT Reading Location ID and State: [address] [place] [address] , Service support , Chest x-ray, portable, [...] rate of 72. No acute signs of IA no ischemia. Discharge Plan Triage Chief Complaint: [...] TAKE 1 TABLET BY MOUTH EVERY DAY jq-lzl-yxlyc-Z0-rwkdcck-dsjsrp 1 EACH tablet 1 tab PO DAILY [...] tab for 3 days Primary Care Provider: Priscilla Arndt Referrals: Priscilla Arndt MD [Primary Care Provider] - Rock Dick DO [Med Staff - Active Staff] - As soon as possible Activity Restrictions/Additional Instructions: Prednisone 40 mg a day for the next 10 days start tomorrow we gave you a dose here. Use your inhaler and nebulizer at home as needed. Follow-up with your [facility] soon as possible. Return if feeling worse. Disposition Disposition: Home, Self Care What to do if you have Problems For any increased pain, shortness of breath, bleeding, nausea or vomiting, chestpain, or any unexpected problems, contact your Primary Care Provider. Call [facility] ([phone]) or report to the closest Emergency Room. Call 911 if necessary. 10/21/23 1926 <Electronically signed by Fabricio Kwong MD> Cosigner Signature (if applicable): CC: Dr. Priscilla Arndt MD ~ Signed [facility] Work Phone: 1(701) 125-538105-06-2024 Telephone encounter Note* Telephone Encounter - Zain Weiss MA - 10/20/2023 12:15 PM EDT Left message to call office. 10/20/2023 12:15 PM [facility]05-06-2024 Telephone encounter Note* Telephone Encounter - Zain Weiss MA - 10/20/2023 12:02 PM EDT ----- Message from Alycia Arnold APRN.DIRECTOR OF PROPERTY MANAGEMENT sent at 10/20/2023 10:38 AM EDT ----- Please let the patient know chest x-ray findings consistent with COPD, otherwise normal. Follow-up with [facility] regarding SOB. Lab results were all within acceptable limits. Keep appointment with general surgery as scheduled Alycia Arnold APRN.DIRECTOR OF PROPERTY MANAGEMENT [facility]05-01-2024 History of Present illness Narrative* Rochelle Ortiz [...] PATIENT PRESENTS WITH AN IMPLANTABLE OR ATTACHED MACHINE TOOL DRESSER: No RADIOLOGY DEPARTMENT: General X-ray: Exam(s) Completed: Chest X-Ray PERIPHERAL IV DATA: Not applicable SIGNED BY: RT Hilario(R) October 15, 2023 10:48 AM documented in this encounterLancaster Municipal Hospital05-01-2024 Instructions* Patient Instructions* Alycia Arnold APRN.CNP - 10/15/2023 10:14 AM EDT Please call your neurologist and let them know about increase in frequency of seizures Go to ER or call 911 if you develop severe abdominal pain, vomiting that won't stop, high fever, rigid/hard abdomen, significant rectal bleeding. documented in this encounterLancaster Municipal Hospital05-01-2024 History of Present illness Narrative* Alycia Arnold [...] has a history of COPD, managed by [facility] at [facility]. Treated with Trelegy and albuterol. He had an exacerbation a couple weeks ago and was prescribed Doxycycline and prednisone. Cough and wheezing resolved however SOB remained the same after completing treatment. He has a history of seizures and migraines. Treated with Keppra, Depakote, Elavil and Gabapentin byneurologist in [place]. He had not had a seizure in [...] Cervicalgia 07/29/2006 Chronic obstructive pulmonary disease (COPD) ([facility]) DEPRESSIVE DISORDER NEC 07/29/2006 Diabetes ([facility]) Headache(784.0) 07/29/2006 Hypertension Intracranial injury of other [...] YRS/> REDUCIBLE simple ALLERGIES Day-Nite Severe Cold-Flu [Gxshkxb-Dj-Vy-Acetaminophen-Gg], Dextromethorphan, Doxylamine, Pseudoephedrine, Sertraline, Zoloft [Sertraline Hcl], Baclofen, and Nyquil [Ickmpawec-Lma-Kt-Acetaminophen] MEDICATIONS PARoxetine (PAXIL) 20 mg tablet Take [...] daily before breakfast. 1/2 hr before meal. pszljorwcjl-xnhykwdyi-ksufnaiu (TRELEGY ELLIPTA) 100-62.5-25 mcg Inhale 1 Puff as instructed once daily. aspirin, enteric coated (ASPIRIN, ENTERIC COATED) 81 mg EC tablet Take 81 mg by mouth once daily. gabapentin (NEURONTIN) 800 mg tablet 600 mg three times daily. from [facility] albuterol HFA (VENTOLIN HFA) 90 [...] mg by mouth two times a day.) Otacdgj-Udmhtjxtgxdqb-Fnxvmmuv 250-250-65 mg per tablet Take 6 tablets [...] not ill-appearing or toxic-appearing. HENT: Mouth/Throat: Lips: [place]. Mouth: Mucous membranes are moist. Pharynx: Oropharynx [...] plan. Alycia Arnold APRN.ASHOK documented in this encounterLancaster Municipal Hospital04-30-2024 Telephone encounter Note * Telephone Encounter - [...] above 10. : n/a Protocols used: Rectal Balqgdsr-ZJZYA-GI [facility]04-30-2024 Miscellaneous Notes* Telephone Encounter - Laura Burrows [...] above 10. : n/a Protocols used: Rectal Tkakkipc-MNXMN-QA documented in this encounterLancaster Municipal Hospital04-30-2024 Telephone encounter Note * Telephone Encounter - Sunitha Vega RN - 10/14/2023 2:40 PM EDT Call transferred from for concerns of blood in stool and abdominal pain. of patient wantingto schedule appointment. attempted to conference patient through for triage. Line disconnected. Attempted to call patient back and left a voicemail to return call when able. [facility]04-30-2024 Miscellaneous Notes* Telephone Encounter - Sunitha Vega RN - 10/14/2023 2:40 PM EDT Call transferred from for concerns of blood in stool and abdominal pain. of patient wantingto schedule appointment. attempted to conference patient through for triage. Line disconnected. Attempted to call patient back and left a voicemail to return call when able. documented in this encounterLancaster Municipal Hospital04-24-2024 Procedure [facility]10-23-2023 History of Present illness Narrative* Serene [...] her - for which he went to [facility] for. Has quite a bit of weight [...] Cervicalgia 07/29/2006 Chronic obstructive pulmonary disease (COPD) ([facility]) DEPRESSIVE DISORDER NEC 07/29/2006 Diabetes ([facility]) Headache(784.0) 07/29/2006 Hypertension Intracranial injury of other [...] YRS/> REDUCIBLE simple ALLERGIES Day-Nite Severe Cold-Flu [Wtsbjdx-Dt-Av-Acetaminophen-Gg], Dextromethorphan, Doxylamine, Pseudoephedrine, Sertraline, Zoloft [Sertraline Hcl], Baclofen, and Nyquil [Wjwemvogj-Som-Wo-Acetaminophen] MEDICATIONS amoxicillin-clavulanic acid (AUGMENTIN) 875-125 mg per [...] daily before breakfast. 1/2 hr before meal. wngmxxoegdu-nbenitusx-uyofqukj (TRELEGY ELLIPTA) 100-62.5-25 mcg Inhale 1 Puff [...] tablet 600 mg three times daily. from [facility] albuterol HFA (VENTOLIN HFA) 90 mcg/actuation inhaler Inhale 2 Puffs as instructed every 4 hours asneeded for Wheezing/Shortness of Breath. Qqmijrh-Rdwdqjmlemery-Rwfikwdc 250-250-65 mg per tablet Take 6 tablets [...] plan. Serene Jerome PA-C documented in this encounterLancaster Municipal Hospital10-19-2023 History of Present illness Narrative* Germania Goldberg APRN.DIRECTOR OF PROPERTY MANAGEMENT - 04/03/2023 12:46 PM EDT This note was created using [employer]. Subjective Eliud Blount is a 62 year [...] YRS/> REDUCIBLE simple ALLERGIES Day-Nite Severe Cold-Flu [Viptlld-Lp-Be-Acetaminophen-Gg], Dextromethorphan, Doxylamine, Pseudoephedrine, Sertraline, Zoloft [Sertraline Hcl], Baclofen, and Nyquil [Kmfgnchzd-Oqf-Eu-Acetaminophen] MEDICATIONS albuterol (PROVENTIL) 5 mg/mL nebu Inhale [...] daily before breakfast. 1/2 hr before meal. pkruceppawo-mzyxlmwdk-beemaqai (TRELEGY ELLIPTA) 100-62.5-25 mcg Inhale 1 Puff [...] tablet 600 mg three times daily. from [facility] albuterol HFA (VENTOLIN HFA) 90 mcg/actuation inhaler Inhale 2 Puffs as instructed every 4 hours asneeded for Wheezing/Shortness of Breath. albuterol (PROVENTIL) 5 mg/mL nebu Inhale 0.5 mL as instructed one time only for 1 dose. 1 DOSE NOW- BACK OFFICE. PLACE 0.5 ML PER DROPPER AND 2.5 ML OF NORMAL SALINE INTO RESERVOIR. Lznumbb-Ponhzoiznjnbs-Vrzmshtj 250-250-65 mg per tablet Take 6 tablets [...] CLAVULANATE 125 MG TABLET E Thien [employer] METHODS SPECIALIST Student Supervising provider was present and guided the care of the patient for the entire session on this date. All documentation was reviewed and agreed upon. Germania Goldberg APRN.ASHOK documented in this encounterLancaster Municipal Hospital09-20-2023 Instructions* Patient Instructions* Malathi Skinner APRN.CNP - [...] are not normal. Copyright 1994 [employer] documented in this encounterLancaster Municipal Hospital09-20-2023 History of Present illness Narrative* Malathi Skinner [...] history is provided by the patient. No american sign language interpreter was used. Diarrhea This is [...] Cervicalgia 07/29/2006 Chronic obstructive pulmonary disease (COPD) ([facility]) DEPRESSIVE DISORDER NEC 07/29/2006 Diabetes ([facility]) Headache(784.0) 07/29/2006 Hypertension Intracranial injury of other [...] YRS/> REDUCIBLE simple ALLERGIES Day-Nite Severe Cold-Flu [Kucewvb-Bq-Hs-Acetaminophen-Gg], Dextromethorphan, Doxylamine, Pseudoephedrine, Sertraline, Zoloft [Sertraline Hcl], Baclofen, and Nyquil [Scjonigbx-Enn-Jt-Acetaminophen] MEDICATIONS albuterol (PROVENTIL) 5 mg/mL nebu Inhale [...] daily before breakfast. 1/2 hr before meal. udimuevcymw-netjqppmn-imseerfs (TRELEGY ELLIPTA) 100-62.5-25 mcg Inhale 1 Puff [...] tablet 600 mg three times daily. from [facility] albuterol HFA (VENTOLIN HFA) 90 mcg/actuation inhaler Inhale 2 Puffs as instructed every 4 hours asneeded for Wheezing/Shortness of Breath. albuterol (PROVENTIL) 5 mg/mL nebu Inhale 0.5 mL as instructed one time only for 1 dose. 1 DOSE NOW- BACK OFFICE. PLACE 0.5 ML PER DROPPER AND 2.5 ML OF NORMAL SALINE INTO RESERVOIR. Wfykvdt-Jclhjscpiybna-Izzpovwn 250-250-65 mg per tablet Take 6 tablets [...] for C diff, and Stool studies - [place] low residue diet - F/U appt made at time of discharge. - LIPASE BLD Malathi Skinner APRN.DIRECTOR OF PROPERTY MANAGEMENT documented in this encounterLancaster Municipal Hospital12-07-2022 Miscellaneous Notes* Telephone Encounter - Priscilla Arndt MD - 05/22/2022 10:35 AM EST Noted * Telephone Encounter - Tamia Suh LPN - 05/21/2022 9:44 AM EST Susan with [facility] Management calling to let you know pt was in inpt at [facility] 05/17/22 to 05/19/22 with Pneumonia. No call back needed. Tamia Suh LPN documented in this encounterLancaster Municipal Hospital12-02-2022 History of Present illness Narrative* Elida Ibarra [...] Cervicalgia 07/29/2006 Chronic obstructive pulmonary disease (COPD) ([facility]) DEPRESSIVE DISORDER NEC 07/29/2006 Diabetes ([facility]) Headache(784.0) 07/29/2006 Hypertension Intracranial injury of other and unspecified nature, without mention of open intracranial wound, unspecified state of consciousness fell and hit his head in 2003 LATERAL EPICONDYLITIS 07/29/2006 bilateral Other and unspecified alcohol dependence, unspecified drinking behavior 02/16/2008 PERS HX TOBACCO USE 07/29/2006 Pneumonia 09/2016 hospitalized and on a ventilator RECUR KEISHA CARN 01/11/2008 Unspecified gastritis and gastroduodenitis without mention [...] Use over 5- 15minutes. 36 mL 3 fpcfswhrdon-ffdteubwp-zxskxhgd (TRELEGY ELLIPTA) 100-62.5-25 mcg Inhale 1 Puff [...] tablet 600 mg three times daily. from [facility] albuterol HFA (VENTOLIN HFA) 90 mcg/actuation inhaler Inhale 2 Puffs as instructed every 4 hours asneeded for Wheezing/Shortness of Breath. 1 Inhaler 12 albuterol (PROVENTIL) 5 mg/mL nebu Inhale 0.5 mL as instructed one time only for 1 dose. 1 DOSE NOW- BACK OFFICE. PLACE 0.5 ML PER DROPPER AND 2.5 ML OF NORMAL SALINE INTO RESERVOIR. 1 mL 0 Jnfnpft-Iepvswyfkvgwl-Rpvdvszf 250-250-65 mg per tablet Take 6 tablets [...] FRONTAL/LAT Elida Ibarra PA-C [facility] History of Present illness Narrative* Rochelle Ortiz [...] 17, 2022 11:50 AM documented in this [facility] Miscellaneous Notes* Telephone Encounter - Sumi Toledo - 04/16/2022 11:45 AM EDT Patient given results and verbalized understanding of instructions given. Sumi Toledo * Telephone Encounter - Sumi Toledo - 04/16/2022 11:33 AM EDT number not in service. Sumi Toledo * Telephone Encounter - Sumi Toledo - 04/15/2022 6:54 PM EDT Unable to reach patient. Mailbox full/Mailbox not set up/ Number incorrect. Please try again later. Sumi Toledo * Telephone Encounter - Xochilt Cabrales APRN.CNP - 04/15/2022 6:48 PM EDT 2.5 mg/3 ml sent to pharmacy for albuterol nebulizer Please tell patient to check with pharmacy for new rx. Xochilt Cabrales APRN.CNP * Telephone Encounter - Ursula Sadler - 04/15/2022 4:05 PM EDT [facility] state the rx for albuterol (PROVENTIL) 5 mg/mL is backordered. Wants to know if pre diluted product can be substituted. Please send new rx if possible. [phone] documented in this [facility]10-[facility]22 Instructions* Patient Instructions* Xochilt Cabrales APRN.CNP - [...] breath, inability to swallow. documented in this encounterL[facility]10-31-[facility] History of Present illness Narrative* Xochilt Cabrales APRN.CNP - 04/15/2022 11:15 AM EDT Subjective The history is provided by the patient. No american sign language interpreter was used. HPI Eliud Blount [...] Cervicalgia 07/29/2006 Chronic obstructive pulmonary disease (COPD) ([facility]) DEPRESSIVE DISORDER NEC 07/29/2006 Diabetes ([facility]) Headache(784.0) 07/29/2006 Hypertension Intracranial injury of other [...] have confirmed and edited as necessary, the PSYCHIATRIC Review of Systems Constitutional: Negative for chills [...] evaluation. Xochilt Cabrales APRN.CNP documented in [facility] History of Past illness Narrative* Problem Noted [...] of this encounter (statuses as of 03/01/2022) [facility] of Past illness Narrative* Problem Noted [...] of this encounter (statuses as of 04/15/2022) [facility] of [facility] illness Narrative* Problem Noted [...] of this encounter (statuses as of 04/16/2022) [facility] of [facility] illness Narrative* Problem Noted [...] of this encounter (statuses as of 05/17/2022) [facility] of [facility] illness Narrative* Problem Noted [...] of this encounter (statuses as of 05/22/2022) [facility] Narrative* Problem Noted [...] of this encounter (statuses as of 03/05/2023) [facility] of [facility] illness Narrative* Problem Noted [...] of this encounter (statuses as of 04/03/2023) [facility] of [facility] illness Narrative* Problem Noted [...] of this encounter (statuses as of 04/09/2023) [facility] Author Mack Burrows [facility] April 28, 2023 11:55am Note Date/Time April 28, 2023 11:02am [facility] Medical Records Department [address] [place] [address] Emergency Department Summary 04/28/23 MR#: [id number] Acct: [id number] Name: ELIUD BLOUNT Rep #:[id number] : 1960 62 From: Mack Burrows MD PCP: Dr. Priscilla Arndt MD Status:REG E R Location: ED [...] MD> Cosigner Signature (if applicable): cc: Dr. Priscilla Arndt MD ~* Signed HPI History of [...] No major bleeding. Tetanus Immunization: >[address] [facility] Medical History (Updated 04/28/23 @ 11:45 by [...] pain 06/30/19 [History Last Taken 08/22/19 13:00] sfizwsju-jx-xmawk 300 mcg-K 60 mcg-lycop 600 mcg-lutein 300 [...] 750 mg PO BID Check with primary caoerg39/03/22 [History Last Taken Unknown] fluticasone fur. 200 [...] Skin sutures Irrigated (ml): 60 Number of Sutures/Sherie: 5 Suture Information: Ethilon, Simple and 5-0 Discharge Plan Triage Chief Complaint: Laceration ED Provider: Mack Burrows Dx/Rx/DC Orders Clinical Impression: Sdaebczgjo-giaqelisp-cdusakc (DPT) vaccination administered at current visit, Laceration [...] TAKE 1 TABLET BY MOUTH EVERY DAY fv-cly-mfird-S7-ozizmmm-opszkb 1 EACH tablet 1 tab PO DAILY [...] sob/wheezing) Qty: 1 11RF Primary Care Provider: Priscilla Arndt Referrals: Priscilla Arndt MD [Primary Care Provider] - 10-14 Days suture removal Disposition Disposition: Home, Self Care What to do if you have Problems For any increased pain, shortness of breath, bleeding, nausea or vomiting, chestpain, or any unexpected problems, contact your Primary Care Provider. Call [facility] ([phone]) or report to the closest Emergency Room. Call 911 if necessary. 04/28/23 1145 <Electronically signed by Mack Burrows MD> Cosigner Signature (if applicable): CC: Dr. Priscilla Arndt MD ~ Signed [facility] Work Phone: Discharge summary Author Hyun Duncan [facility] Note Date/Time August 28, 2024 12: 35pm [facility] Medical Records Department [address] [place] [address] Instructions for Home/Discharge Instructions 08/28/24 1142 MR#: [id number] Acct: [id number] Name: ELIUD BLOUNT Rep #:[id number] : 1960 63 From: Hyun Duncan MD PCP: Dr. Priscilla Arndt MD Status:ADM I N Discharge Instructions [...] Attending Provider: Hyun Duncan Primary Care Provider: Priscilla Arndt Consulting Providers: Jone Dudley; Jeffry Bo; [...] Qty: 60 11RF Referrals / Follow Up: Priscilla Arndt MD [Primary Care Provider] - Within [...] Dudley MD; Dr. Magdi Serrano MD; Dr. Priscilla Arndt MD; Dr. Calvin Jasso MD; Dr. [...] Smith DO; Kandi Ray MD ~ Signed [facility] Work Phone: Evaluation note* Diagnosis Onset Date Resolution Status COPD (chronic obstructive pulmonary disease) chronic Nicotine dependence, cigarettes, uncomplicated chronic [facility] Work Phone: Evaluation noteNo assessment information available [facility] Work Phone: Evaluation note* Diagnosis COPD with exacerbation (HCC)- Primary Obstructive chronic bronchitis with exacerbation Sinobronchitis Unspecified sinusitis (chronic) [facility]* Diagnosis Lingular pneumonia- Primary Pneumonia, organism unspecified [facility] encounter [facility]* Diagnosis Onset Date Resolution Status Pneumonia acute [facility] Work Phone: Evaluation note* Diagnosis Diarrhea, unspecified type- Primary Lower abdominal pain Abdominal pain, other specified site [facility] this encounter [facility]* Diagnosis Rhinosinusitis- Primary Unspecified sinusitis (chronic) documented [facility]* Diagnosis Anxiety associated with depression- Primary Dysthymic disorder Psychosocial stressors Other psychological or physical stress, not elsewhere classified [facility] encounter [facility]* Diagnosis Seizure (CMS/HCC)- Primary Other convulsions Migraine without aura and without status migrainosus, not intractable (CMS/HCC) [facility] Diagnosis Onset Date Resolution Status Bipolar disorder chronic COPD (chronic obstructive pulmonary disease) chronic Nicotine dependence, cigarettes, uncomplicated chronic [facility] Work Phone: Evaluation note* Diagnosis Blood in stool- Primary Shortness of breath Rectal bleeding Hemorrhage of rectum and anus Malaise Other malaise and fatigue Unintentional weight loss Loss of weight Chronic obstructive pulmonary disease, unspecified COPD type (HCC) Seizure disorder (HCC) Unspecified epilepsy without mention of intractable epilepsy Shortness of breath documented [facility] this encounter [facility]* Diagnosis Chronic obstructive pulmonary disease, unspecified [...] Primary Other conjunctivitis documented in this encounter [facility] note* Diagnosis Chronic obstructive pulmonary disease, unspecified [...] bronchitis with exacerbation [facility] this encounter [facility]* Diagnosis Chronic obstructive pulmonary disease, unspecified [...] Shortness of breath [facility]* Diagnosis Chronic obstructive pulmonary disease, unspecified [...] of other medications documented [facility] this encounter [facility]* Diagnosis Chronic obstructive pulmonary disease, unspecified [...] unspecified fever cause [facility] encounter [facility]* Diagnosis Chronic obstructive pulmonary disease, unspecified [...] referable to limbs [facility] this encounter [facility]* Diagnosis Seizure (CMS/HCC) Other convulsions Migraine without aura and without status migrainosus, not intractable (CMS/HCC) Migraine without aura, not intractable, without status migrainosus (CMS/HCC) [facility]* Diagnosis Chronic obstructive pulmonary disease, unspecified [...] Unspecified sinusitis (chronic) [facility] encounter [facility]* Diagnosis Chronic obstructive pulmonary disease, unspecified [...] Subacute cough Cough [facility] encounter [facility]* Diagnosis Chronic obstructive pulmonary disease, unspecified [...] Subacute cough Cough [facility] this encounter [facility]* Diagnosis Chronic obstructive pulmonary disease, unspecified [...] Dysuria Urinary hesitancy documented in this encounter [facility] Author Nettie Rodriguez [facility] Note Date/Time January 23, 2025 1: 47am [facility] Medical Records Department [address] [place] [id number] H&P Exam - Hospitalist 01/23/25 0126 MR#: [id number] Acct: [id number] Name: ELIUD BLOUNT Rep #:[id number] : 1960 64 From: Nettie Rodriguez MD PCP: Dr. Priscilla Arndt MD Status:REG E R Location: ED HPI - General General Date of Service: 01/23/25 Chief Complaint: Unresponsive. HPI Narrative The patient is a 64 y/o M w/ PMHx: Seizure disorder on Keppra and Depakote, Stage IV COPD with allergic rhinitis, Anxiety and Depression/Bipolar disorder, Tobacco use, LACEY, Hx TBI, Chronic migraines, EtOH and Polysubstance abuse who presents to the [facility] ED on 01/22/2025 with history per family of drinking alcohol all day the day prior and unclear if he was drinking on day of presentation however unfortunately proximately 30 minutes prior to arrival family checked on him and noted that he was unresponsive prompting EMS call noted that he was still breathing but not responding within normal blood sugar with Narcan ministration with some symptom improvement following with response to sternal rub prompting ED evaluation. EMS initially was unsure if there could be a mild facial droop therefore initially stroke alert was initiated but de-escalated. Previous presentation 08/2024 for encephalopathy of unclear significance suspected secondary to possible opiate overdose with CT/CTAhead neck unremarkable, MRI of the brain with no acute findings with primary concern per neurology and senior project manager for substance abuse as etiology however patient reported when he was more alert that he had felt weak and lightheaded onday of admission and denied drug usage. Workup in the ED included T96.7, heart rate 80, BP 122/83, respiratory rate 10, 98% on room air, CBC with WBC 9.5, hemoglobin 14, platelet 264 with increased immature granulocytes, VBG with pH 7.41, bicarb 34, total CO2 36, O2 saturation 69%, CMP unremarkable, ammonia 22.8, LDH 159, lactic acid 1.6, salicylate less than 0.5, acetaminophen less than 5 point, UDS negative, ethyl alcohol less than 10.1, CT brain with no acuteintracranial findings with chronic changes, chest x-ray with no acute cardiopulmonary findings. In the ED patient ministered 1 L normal saline and Narcan 2 mg IV x 1. [facility] Medical History Closed head injury Left ankle injury Bilateral tennis elbow Depression LACEY (obstructive sleep apnea) Lung nodule Sleep-related breathing disorder COPD (chronic obstructive pulmonary disease) GERD (gastroesophageal reflux disease) Bipolar disorder Migraine Tobacco abuse Spinal stenosis Traumatic brain injury Home Medications ?Medication ?Instructions ?Recorded ?Last Taken ?Type levetiracetam 500 mg tablet 500 mg PO BID Check with p marta 04/28/20 03/28/24 History doctor divalproex 250 mg tablet,delayed 750 mg PO BID 4 10/13/24 History release albuterol sulfate 2.5 mg/3 mL 2.5 mg (3 mL) inhalation Q4H PRN 04/15/24 Unknown Rx (0.083 %) solution for nebulization #120 vials Disability Placard #1 ea 06/14/24 Unknown Rx fluticasone propionate 50 2 spray intranasal DAILY #16 grams 06/14/24 Unknown Rx mcg/actuation nasal spray,suspension albuterol sulfate 90 mcg/actuation 2 puff inhalation Q 4H PRN 07/27/24 Unknown Rx aerosol inhaler shortness of breath or wheez ing #8.5 grams amitriptyline 100 mg tablet 100 mg PO QHS PRN sleep Unknown History gabapentin 800 mg tablet 800 mg PO TID 08/27/24 Unkno wn History fluticasone fur. 200 mcg-umeclid 1 inh inhalation RISA Y #60 ea 09/22/24 Unknown Rx 62.5 mcg-vilant 25 mcg inhalat.powder (Trelegy Ellipta) dupilumab 300 mg/2 mL subcutaneous 300 mg (2 mL) subcu t Q2W #4 mL 11/26/24 01/21/25 Rx pen injector (Dupixent) Allergy/AdvReac Type Severity Reaction Status Date / Time dextromethorphan HBr (From AdvReac Intermediate tachycardia, Verified 01/21/25 09:01 NyQuil) feels anxious doxylamine (From NyQuil) AdvReac Intermediate Tachycardia, Verified 01/21/25 09:01 feels anxious pseudoephedrine HCl (From AdvReac Intermediate Tachycardia, Verified 01/21/25 09:01 NyQuil) feels anxious sertraline HCl (From Zoloft) AdvReac Diarrhea Verified 01/21/25 09:01 Family History Father Dementia Alzheimers disease Diabetes Mother Diabetes Surgical History History of hernia repair Social History household members: spouse and family Smoking Status: Heavy Smoker (>10/day) Tobacco: How many years used: 30 second hand exposure: Yes alcohol intake: never substance use type: does not use ROS Review of Systems ROS Unobtainable: due to encephalopathy Vital Signs Vital Signs Vital Signs: 01/22/25 23:31 01/22/25 23:42 01/23/25 00:25 Temperature 96.7 F L Temperature Source Temporal Pulse Rate 80 76 78 Respiratory Rate 10 L 10 L 10 L Blood Pressure 122/83 H 122/80 H Blood Pressure Mean 96 94 Pulse Ox 98 96 100 Oxygen Delivery Method Room Air Nasal Cannula Room Air 01/23/25 01:00 Temperature Temperature Source Pulse Rate 80 Respiratory Rate 11 L Blood Pressure 98/78 Blood Pressure Mean 84 Pulse Ox 99 Oxygen Delivery Method Room Air Weight Weight: 116 lb 13.52 oz Body Mass Index (BMI) 17.7 Physical Exam Narrative Physical Examination: General: Patient currently awakening somewhat to stimuli but quickly falling back asleep, not alert, not able to answer orientation questions, fortunately started to follow some commands, no acute distress laying in the ED bed. Skin: Normal color, normal turgor, no icterus, no cyanosis except occasional stage ecchymosis, abrasion. HEENT: AT/NC, EOM unable to be assessed well is still lethargic, PERRLA, dry MM,no carotid bruits or JVD noted. Lungs: Mildly diminished, greater bases, appropriate effort, no rales, ronchi orwheezing. Heart: Regular rate and rhythm; no gallop, rub audible. Abdomen: Soft, thin habitus, NTTP, ND, normal BS, no appreciated HSM. Extremities: No cyanosis, no clubbing, no significant distal edema. Neurological: Patient currently awakening somewhat to stimuli but quickly falling back asleep, not alert, not able to answer orientation questions, fortunately started to follow some commands, no acute distress laying in the ED bed, cognitive function improving since initial ED arrival but still not baseline intact; pupils equally reactive to light and accommodation, cranial nerves difficult to assess given still persistent encephalopathy although improving, moving all 4 extremities spontaneously and following some commands, strength still severely globally decreased is still lethargic. Psychiatric: Affect appears flat, fatigued, no acute evidence of depressive or anxiety feelings but does have underlying history. Results Lab / Micro Data 01/22/25 23:12 01/22/25 23:12 Labs: Laboratory Results - last 24 hr 01/22/25 23:12: WBC 9.5, RBC 4.59 L, Hgb 14.0, Hct 42.1, MCV 91.7, MCH 30.5, MCHC 33.3, RDW Std Deviation 46.4 H, RDW Coeff of Aaron 13.7, Plt Count 264, MPV 9.1, Immature Gran % (Auto) 1.100 H, Neut % (Auto) 69.5, Lymph % (Auto) 24.6, Bennett % (Auto) 4.1, Eos % (Auto) 0.2, Baso % (Auto) 0.5, Absolute Neuts (auto) 6.6, Absolute Lymphs (auto) 2.34, Nucleated RBC % 0, Sodium 139, Potassium 3.8, Chloride 99, Carbon Dioxide 28.6, Anion Gap 11, BUN 16, Creatinine 0.73, Estim Creat Clear Calc 78.65, Est GFR (MDRD) Non-Af 103, BUN/Creatinine Ratio 22.2 H, Glucose 89, Calcium 9.0, Total Bilirubin 0.43, Direct Bilirubin 0.19, AST 18, ALT 8, Alkaline Phosphatase 70, Lactate Dehydrogenase 159, Total Protein 6.3, Albumin 4.0, Globulin 2.3 01/22/25 23:35: Lactic Acid 1.6, Ammonia 22.8, Salicylates < 0.5 L, Acetaminophen < 5.0 L, Ethyl Alcohol Cancelled 01/22/25 23:35: Ethyl Alcohol < 10.1 01/22/25 23:49: Urine Opiates Screen NEGATIVE, U Buprenorphine Qual NEGATIVE, UrOxycodone Screen NEGATIVE, Urine Methadone Screen NEGATIVE, Urine Fentanyl Screen NEGATIVE, Ur Barbiturates Screen NEGATIVE, Ur Phencyclidine Scrn NEGATIVE, Ur Amphetamines Screen NEGATIVE, U Benzodiazepines Scrn NEGATIVE, Urine Cocaine Screen NEGATIVE, U Cannabinoids Screen NEGATIVE ABG Data ABG results: ABG 01/22/25 23:44 Specimen Type NINO Sample Site Not entered VBG pH 7.41 VBG pO2 37 VBG HCO3 34 H VBG Total CO2 36 H VBG O2 Sat (Calc) 69 VBG Base Excess 9 H POC Mix VBG pCO2 Pt Tmp 54.2 H O2 Delivery Device Room Air Imaging Radiology Impression Brain CT 01/22/25 23:27 IMPRESSION: No acute intracranial finding. Chronic findings as described. Dr. Betancourt discussed these findings via telephone with Dr. Sullivan at 11:42 p.m.on 01/22/2025. Reading Location: [id number] Chest X-Ray 01/22/25 23:59 IMPRESSION: No acute chest findings Reading Location: [place] [address] Assessment & Plan Assessment/Plan (1) Encephalopathy acute: PLAN: Plan The patient is a 64 y/o M w/ PMHx: Seizure disorder on Keppra and Depakote, Stage IV COPD with allergic rhinitis, Anxiety and Depression/Bipolar disorder, Tobacco use, LACEY, Hx TBI, Chronic migraines, EtOH and Polysubstance abuse who presents to the [facility] ED on 01/22/2025 with history per family of drinking alcohol all day the day prior and unclear if he was drinking on day of presentation however unfortunately proximately 30 minutes prior to arrival family checked on him and noted that he was unresponsive prompting EMS call noted that he was still breathing but not responding within normal blood sugar with Narcan ministration with some symptom improvement following with response to sternal rub prompting ED evaluation. #1. Acute encephalopathy, unresponsive, unclear exact etiology but concern for possible substance abuse: Although UDS is negative still some concern for substance use, EtOH unremarkable, there is a potential that he took extra elaviland gabapentin per son report but uncertain, will admit to PCU, will aggressive hydrate, maintain on transitioned IV AED as noted as unclear if he took his doses today, obtain mag and phos levels as noted, maintain on fall and aspiration precautions, maintain on IV PPI, CM consulted. Once more alert will need to discuss what he ingested as family intimated that he likely took extra of his medications. #2. Possible EtOH Abuse: Per report per family potential for alcohol abuse withheavy alcohol the day prior. Unclear if current presentation is related, will maintain on CIWA protocol, IV thiamine and folic acid until oral intake appropriate. If necessary may also initiate IV phenobarbital if concerns arise. Magnesium and phosphorus levels requested. #3. History of polysubstance abuse: UDS negative, presentation 08/2024 with similar presentation with concern at that time for potential drug abuse as etiology for transient encephalopathy. #4. Chronic COPD with allergic rhinitis: Will hold home inhalers in the interimtransition to ATC duonebs, PRN albuterol, HOB, IS parameters. #5. Seizure disorder: Given normal lab values including LDH and lactic acid lower suspicion for seizure activity but still uncertain, to be cautious we willtransition to IV Keppra and Depakote regimen with doses now and continue. #6. LACEY: Unclear PAP therapy usage history, currently maintaining appropriate saturation despite having decreased responsiveness, at this time we will use supplemental oxygen if necessary. #7. Anxiety depression/bipolar disorder: Will temporally hold patient Depakote and amitriptyline regimen with as noted transition to IV Depakote given potential for seizure. #8. Tobacco Abuse: Encouraged cessation, inpatient consultation per RT, NR if desired. #9. DVT prophylaxis: Lovenox. Charges/Coding Visit Charges Inpatient E&M: 10086 Init Hosp L2 01/23/25 0147 <Electronically signed by Nettie Rodriguez MD> Cosigner Signature (if applicable): CC: Dr. Nettie Rodriguez MD; Dr. Priscilla Arndt MD~ Signed [facility] Work Phone: History of Present illness Narrative* Sumi Lockwood, RESEARCH ASST - 07/31/2023 10:30 AM EST CHIEF COMPLAINT: [...] plan, and return instructions. [facility] Additional Instructions Prednisone 40 mg a day for the next 10 days start tomorrow we gave you a dose here. Use your inhaler and nebulizer at home as needed. Follow-up with your superintendent cemetery soon as possible. Return if feeling worse.[facility] Work Phone: Reason for referral (narrative)No reason for referral information availableWSumma Health Work Phone: Chief Complaint and Reason for [...] 2024 5:01pm Chronic respiratory failure November 26, 025 2:46pm Nicotine dependence, cigarettes, uncompl icated [...] Admit Date Chronic respiratory failure November 26, 025 2:46pm Nicotine dependence, cigarettes, uncompl icated November 26, 2024 2:46pm LACEY (obstructive sleep apnea) November 26, 2024 2:46pm Stage 4 very severe COPD by GOLD classif ication November 26, 2024 2:46pm Chief Complaint Admit Date INT LAB ORDERS November 25, 2024 12:5 2pm 2 M FU November 26, 2024 2:46 pm Asthma- Severe Persistent Asthma January 21, 2025 8:46am stroke alert, eth January 22, 2025 11: 25pm stroke alert, eth January 23, 2025 1: 26am Reason for Visit Admit Date Chronic respiratory failure November 26 025 2:46pm Nicotine dependence, cigarettes, uncompl icated November 26, 2024 2:46pm LACEY (obstructive sleep apnea) November 26, 2024 2:46pm Stage 4 very severe COPD by GOLD classif ication November 26, 2024 2:46pm Encephalopathy acute January 22, 2025 11 :25pm Family History Relationship Condition Age at Onset Recorded Date/T dante father Dementia Unknown Alzheimer's disease Unknown Diabetes mellitus Unknown mother Diabetes mellitus Unknown Advance Directives Advance Directive Response Recorded Date/ Time Advance Directives No July 11, 2017 6:47pm Living Will No August 21, 2021 12:05pm Power of Dehydrogenation Operator No August 21 12:05pm Advance Directive Response Recorded Date/ Time Advance Directives No July 11, 2017 6:47pm Living Will No March 09, 2022 11:35pm Power of Dehydrogenation Operator No February 11:35pm Advance Directive Response Recorded Date/ Time Advance Directives No July 11, 2017 5:47pm Living Will No May 17 7:40pm Power of Dehydrogenation Operator No May 17, 2022 7:40pm Advance Directive Response Recorded Date/ Time Advance Directives No July 11, 2017 5:47pm Living Will No May 18 3:16am Power of Dehydrogenation Operator No May 18, 2022 3:16am Advance Directive Response Recorded Date/ Time Advance Directives No July 11, 2017 6:47pm Living Will No May 18 4:16am Power of Dehydrogenation Operator No May 18, 2022 4:16am Advance Directive Response Recorded Date/ Time Advance Directives No July 11, 2017 5:47pm Living Will No April 28 023 10:54am Power of Dehydrogenation Operator No April 28, 2023 10:54am Advance Directive Response Recorded Date/ Time Advance Directives No July 11, 2017 6:47pm Living Will No April 28, 2 023 11:54am Power of Dehydrogenation Operator No April 28, 2023 11:54am Advance Directive Response Recorded Date/ Time Advance Directives No July 11, 2017 6:47pm Living Will No October 21, 2023 10 :24am Power of Dehydrogenation Operator No October 21, 2023 10:24am Advance Directive Response Recorded Date/ Time Living Will No August 27, 2024 7:57pm Power of Dehydrogenation Operator No August 27 7:57pm Advance Directives No July 11, 2017 6:47pm Advance Directive Response Recorded Date/ Time Living Will No August 27, 2024 7:57pm Do you have a Healthcare Power of Dehydrogenation Operator? No August 27, 2024 7:57pm Advance Directives No July 11, 2017 6:47pm Advance Directive Response Recorded Date/ Time Advance Directives No July 11, 2017 6:47pm Advance Directive Response Recorded Date/ Time Do you have a Healthcare Power of Dehydrogenation Operator? No January 22, 2025 11:40pm Advance Directives No July 11, 2017 6:47pm [...] OFFICE/OUTPATIENT NEW HIGH MDM 60 MINUTES Alycia Arnold M, CENTRAL CONTROL ROOM OPERATOR.DIRECTOR OF PROPERTY MANAGEMENT [address] [place] [address] Referral ID Status Reason Start Date Expiration Date Visits Requested Visits Authorized [id number] Authorized PCP Requested Referral 10/15/2023 10/14/2024 1 [...] or prosecute any alcohol or drug abuse patient.[facility] the event this information is protected by the Federal Confidentiality of Alcohol and Drug Abuse Patient Records regulations: The Federal rules restrict any use of the information to criminally investigate or prosecute any alcohol or drug abuse patient.[facility] the event this information is protected by the Federal Confidentiality of Alcohol and Drug Abuse Patient Records regulations: The Federal rules restrict any use of the information to criminally investigate or prosecute any alcohol or drug abuse patient.[facility] the event this information is protected by the Federal Confidentiality of Alcohol and Drug Abuse Patient Records regulations: The Federal rules restrict any use of the information to criminally investigate or prosecute any alcohol or drug abuse patient.[facility] the event this information is protected by the Federal Confidentiality of Alcohol and Drug Abuse Patient Records regulations: The Federal rules restrict any use of the information to criminally investigate or prosecute any alcohol or drug abuse patient.[facility] the event this information is protected by the Federal Confidentiality of Alcohol and Drug Abuse Patient Records regulations: The Federal rules restrict any use of the information to criminally investigate or prosecute any alcohol or drug abuse patient.[facility] the event this information is protected by the Federal Confidentiality of Alcohol and Drug Abuse Patient Records regulations: The Federal rules restrict any use of the information to criminally investigate or prosecute any alcohol or drug abuse patient.[facility] the event this information is protected by the Federal Confidentiality of Alcohol and Drug Abuse Patient Records regulations: The Federal rules restrict any use of the information to criminally investigate or prosecute any alcohol or drug abuse patient.[facility] the event this information is protected by the Federal Confidentiality of Alcohol and Drug Abuse Patient Records regulations: The Federal rules restrict any use of the information to criminally investigate or prosecute any alcohol or drug abuse patient.[facility] the event this information is protected by the Federal Confidentiality of Alcohol and Drug Abuse Patient Records regulations: The Federal rules restrict any use of the information to criminally investigate or prosecute any alcohol or drug abuse patient.[facility] the event this information is protected by the Federal Confidentiality of Alcohol and Drug Abuse Patient Records regulations: The Federal rules restrict any use of the information to criminally investigate or prosecute any alcohol or drug abuse patient.[facility] the event this information is protected by the Federal Confidentiality of Alcohol and Drug Abuse Patient Records regulations: The Federal rules restrict any use of the information to criminally investigate or prosecute any alcohol or drug abuse patient.[facility] the event this information is protected by the Federal Confidentiality of Alcohol and Drug Abuse Patient Records regulations: The Federal rules restrict any use of the information to criminally investigate or prosecute any alcohol or drug abuse patient.[facility] the event this information is protected by the Federal Confidentiality of Alcohol and Drug Abuse Patient Records regulations: The Federal rules restrict any use of the information to criminally investigate or prosecute any alcohol or drug abuse patient.[facility] the event this information is protected by the Federal Confidentiality of Alcohol and Drug Abuse Patient Records regulations: The Federal rules restrict any use of the information to criminally investigate or prosecute any alcohol or drug abuse patient.[facility] the event this information is protected by the Federal Confidentiality of Alcohol and Drug Abuse Patient Records regulations: The Federal rules restrict any use of the information to criminally investigate or prosecute any alcohol or drug abuse patient.[facility] the event this information is protected by the Federal Confidentiality of Alcohol and Drug Abuse Patient Records regulations: The Federal rules restrict any use of the information to criminally investigate or prosecute any alcohol or drug abuse patient.[facility] the event this information is protected by the Federal Confidentiality of Alcohol and Drug Abuse Patient Records regulations: The Federal rules restrict any use of the information to criminally investigate or prosecute any alcohol or drug abuse patient.[facility] the event this information is protected by the Federal Confidentiality of Alcohol and Drug Abuse Patient Records regulations: The Federal rules restrict any use of the information to criminally investigate or prosecute any alcohol or drug abuse patient.[facility]In the event this information is protected by the Federal Confidentiality of Alcohol and Drug Abuse Patient Records regulations: The Federal rules restrict any use of the information to criminally investigate or prosecute any alcohol or drug abuse patient.[facility] the event this information is protected by the Federal Confidentiality of Alcohol and Drug Abuse Patient Records regulations: The Federal rules restrict any use of the information to criminally investigate or prosecute any alcohol or drug abuse patient.[facility] the event this information is protected by the Federal Confidentiality of Alcohol and Drug Abuse Patient Records regulations: The Federal rules restrict any use of the information to criminally investigate or prosecute any alcohol or drug abuse patient.[facility]In the event this information is protected by the Federal Confidentiality of Alcohol and Drug Abuse Patient Records regulations: The Federal rules restrict any use of the information to criminally investigate or prosecute any alcohol or drug abuse patient.[facility] the event this information is protected by the Federal Confidentiality of Alcohol and Drug Abuse Patient Records regulations: The Federal rules restrict any use of the information to criminally investigate or prosecute any alcohol or drug abuse patient.[facility]In the event this information is protected by the Federal Confidentiality of Alcohol and Drug Abuse Patient Records regulations: The Federal rules restrict any use of the information to criminally investigate or prosecute any alcohol or drug abuse patient.[facility]In the event this information is protected by the Federal Confidentiality of Alcohol and Drug Abuse Patient Records regulations: The Federal rules restrict any use of the information to criminally investigate or prosecute any alcohol or drug abuse patient.[facility] Reason for Visit (unrecogniz ed section and [...] Care Teams (unrecognized sec tion and content) Employee Development Manager Relationship Specialty Start Date End Date Priscilla Arndt MD [address] [place] [address] PCP - General Internal Medicine 01/01/16 Lance Gillespie (Hist) Referring 09/07/16 Employee Development Manager Relationship Specialty Start Date End Date Priscilla Arndt MD [address] [place] [address] PCP - General Internal Medicine 01/01/16 Lance Gillespie (Hist) Referring 09/07/16 Employee Development Manager Relationship Specialty Start Date End Date Priscilla Arndt MD [address] [place] [address] PCP - General Internal Medicine 01/01/16 Lance Gillespie (Hist) Referring 09/07/16 Employee Development Manager Relationship Specialty Start Date End Date Priscilla Arndt MD [address] [place] [address] PCP - General Internal Medicine 01/01/16 Lance Gillespie (Hist) [address] [place] [address] Referring 09/07/16 Employee Development Manager Relationship Specialty Start Date End Date Priscilla Arndt MD [address] [place] [address] PCP - General Internal Medicine 01/01/16 Lance Gillespie (Hist) [address] [place] [address] Referring 09/07/16 Team Status: Active Member Role Status Dates Dr. Priscilla Arndt MD Family Provider Active Dr. Priscilla Arndt MD Primary Care Provider Active Team Status: Inactive Member Role Status Dates Dr. Priscilla Arndt MD Primary Care Provider, Referring Provider Active Dr. Rock Dick DO Attending Provider Active Team Status: Inactive Member Role Status Dates Dr. Priscilla Arndt MD Primary Care Provider Active Dr. Rock Dick DO Attending Provider, Referring Pro vider Active Employee Development Manager Relationship Specialty Start Date End Date Priscilla Arndt MD [address] [place] [address] PCP - General Internal Medicine 01/01/16 Lance Gillespie (Hist) [address] [place] [address] Referring 09/07/16 Employee Development Manager Relationship Specialty Start Date End Date Priscilla Arndt MD [address] [place] [address] PCP - General Internal Medicine 01/01/16 Lance Gillespie (Hist) [address] [place] [address] Referring 09/07/16 Employee Development Manager Relationship Specialty Start Date End Date Priscilla Arndt MD [address] [place] [address] PCP - General Internal Medicine 01/01/16 Lance Gillepsie (Hist) [address] [place] [address] Referring 09/07/16 Team Status: Inactive Member Role Status Dates Dr. Priscilla Arndt MD Primary Care Provider Active Dr. Mack Burrows MD Emergency Provider Active Employee Development Manager Relationship Specialty Start Date End Date Priscilla Perkins MD [address] [place] [address] PCP - General Pediatrics 12/12/22 Team Status: Inactive Member Role Status Dates Dr. Priscilla Arndt MD Primary Care Provider, Referring Provider Active Tammy Stone RESEARCH ASST, RESEARCH ASST-C Attending Provider Active Team Status: Inactive Member Role Status Dates Dr. Priscilla Arndt MD Primary Care Provider Active Tammy Stone RESEARCH ASST, RESEARCH ASST-C Attending Provider Active Team Status: Active Member Role Status Dates Dr. Priscilla Arndt MD Primary Care Provider Active Tammy Stone RESEARCH ASST, RESEARCH ASST-C Referring Provider, Other Pr ovider Active Dr. Rock Dick DO Attending Provider Active Team Status: Inactive Member Role Status Dates Dr. Priscilla Arndt MD Primary Care Provider Active Tammy Stone RESEARCH ASST, RESEARCH ASST-C Attending Provider, Referrin g Provider Active Employee Development Manager Relationship Specialty Start Date End Date Priscilla Arndt MD [address] [place] [address] PCP - General Internal Medicine 01/01/16 Lance Gillespie (Hist) [address] [place] [address] Referring 09/07/16 Employee Development Manager Relationship Specialty Start Date End Date Priscilla Arndt MD [address] [place] [address] PCP - General Internal Medicine 01/01/16 Lance Gillespie (Hist) [address] [place] [address] Referring 09/07/16 Employee Development Manager Relationship Specialty Start Date End Date Priscilla Arndt MD [address] [place] [address] PCP - General Internal Medicine 01/01/16 Lance Gillespie (Hist) [address] [place] [address] Referring 09/07/16 Team Status: Inactive Member Role Status Dates Dr. Priscilla Arndt MD Primary Care Provider Active Dr. Fabricio Kwong MD Emergency Provider Active Employee Development Manager Relationship Specialty Start Date End Date Priscilla Arndt MD [address] [place] [address] PCP - General Internal Medicine 01/01/16 Lance Gillespie (Hist) [address] [place] [address] Referring 09/07/16 Employee Development Manager Relationship Specialty Start Date End Date Priscilla Arndt MD [address] [place] [address] PCP - General Internal Medicine 01/01/16 Lance Gillespie (Hist) [address] [place] [address] Referring 09/07/16 Employee Development Manager Relationship Specialty Start Date End Date Priscilla Arndt MD [address] [place] [address] PCP - General Internal Medicine 01/01/16 Lance Gillespie (Hist) [address] [place] [address] Referring 09/07/16 Employee Development Manager Relationship Specialty Start Date End Date Priscilla Arndt MD [address] [place] [address] PCP - General Internal Medicine 01/01/16 Lance Gillespie (Hist) [address] [place] [address] Referring 09/07/16 Employee Development Manager Relationship Specialty Start Date End Date Priscilla Arndt MD [address] [place] [address] PCP - General Internal Medicine 01/01/16 Lance Gillespie (Hist) [address] [place] [address] Referring 09/07/16 Employee Development Manager Relationship Specialty Start Date End Date Priscilla rAndt MD [address] [place] [address] PCP - General Internal Medicine 01/01/16 Lance Gillespie (Hist) [address] [place] [address] Referring 09/07/16 Employee Development Manager Relationship Specialty Start Date End Date Priscilla Perkins MD [address] [place] [address] PCP - General Pediatrics 12/12/22 Employee Development Manager Relationship Specialty Start Date End Date Priscilla Arndt MD [address] [place] [address] PCP - General Internal Medicine 01/01/16 Lance Gillespie (Hist) [address] [place] [address] Referring 09/07/16 Employee Development Manager Relationship Specialty Start Date End Date Priscilla Arndt MD [address] [place] [address] PCP - General Internal Medicine 01/01/16 Lance Gillespie (Hist) [address] [place] [address] Referring 09/07/16 Serene Jerome PA-C [address] [place] [address] Byproduct Engineer Family Medicine 05/23/24 Alison Whitten APRN.CNP [address] [place] [address] Byproduct Engineer Internal Medicine 05/23/24 Esmer Gray PA-C [address] [place] [address] Byproduct Engineer Family Medicine 05/23/24 Employee Development Manager Relationship Specialty Start Date End Date Priscilla Arndt MD [address] [place] [address] PCP - General Internal Medicine 01/01/16 Lance Gillespie (Hist) [address] [place] [address] Referring 09/07/16 Serene Jerome PA-C [address] [place] [address] Byproduct Engineer [facility] 05/23/24 Fish, NAZANIN Rosas.DIRECTOR OF PROPERTY MANAGEMENT [address] [place] [address] Byproduct Engineer Internal Medicine 05/23/24 Esmer Gray PA-C [address] [place] [address] [facility] 05/23/24 Team Status: Active Member Role Status Dates Dr. Priscilla Arndt MD Primary Care Provider Active Team Status: Inactive Member Role Status Dates Dr. Priscilla Arndt MD Primary Care Provider Active Start: May 27, 2024 End: May 27, 2024 Dr. Priscilla Arndt MD Referring Provider Active Start: May 27, 2024 End: May 27, 2024 Dr. Erick Hernández MD Attending Provider Active Start: May 27, 2024 End: May 27, 2024 Team Status: Inactive Member Role Status Dates Dr. Priscilla Arndt MD Primary Care Provider Active Start: June 14, 2024 End: June 14, 2024 Dr. Priscilla Arndt MD Referring Provider Active Start: June 14, 2024 End: June 14, 2024 Tammy Stone RESEARCH ASST, RESEARCH ASST-C Attending Provider Active Start: June 14, 2024 End: June 14, 2024 Team Status: Inactive Member Role Status Dates Dr. Priscilla Arndt MD Primary Care Provider Active Start: June 23, 2024 End: June 23, 2024 Tammy Stone RESEARCH ASST, RESEARCH ASST-C Attending Provider Active Start: June 23, 2024 End: June 23, 2024 Tammy Stone RESEARCH ASST, RESEARCH ASST-C Referring Provider Active Start: June 23, 2024 End: June 23, 2024 Team Status: Inactive Member Role Status Dates Dr. Priscilla Arndt MD Primary Care Provider Active Start: July 02, 2024 End: July 02, 2024 Tammy Stone RESEARCH ASST, RESEARCH ASST-C Attending Provider Active Start: July 02, 2024 End: July 02, 2024 Tammy Stone RESEARCH ASST, RESEARCH ASST-C Referring Provider Active Start: July 02, 2024 End: July 02, 2024 Team Status: Active Member Role Status Dates Dr. Priscilla Arndt MD Primary Care Provider Active Start: July 05, 2024 Tammy Stone RESEARCH ASST, RESEARCH ASST-C Referring Provider Active Start: July 05, 2024 Tammy Stone RESEARCH ASST, RESEARCH ASST-C Other Provider Active Start: July 05, 2024 Dr. Rock Dick DO Attending Provider Active S tart: July 05, 2024 Team Status: Inactive Member Role Status Dates Dr. Priscilla Arndt MD Primary Care Provider Active Start: July 05, 2024 End: July 05, 2024 Dr. Erick Hernández MD Attending Provider Active Start: July 05, 2024 End: July 05, 2024 Dr. Erick Hernández MD Referring Provider Active Start: July 05, 2024 End: July 05, 2024 Team Status: Inactive Member Role Status Dates Dr. Priscilla Arndt MD Primary Care Provider Active Start: July 12, 2024 End: July 12, 2024 Dr. Priscilla Arndt MD Referring Provider Active Start: July 12, 2024 End: July 12, 2024 Dr. Erick Hernández MD Attending Provider Active Start: July 12, 2024 End: July 12, 2024 Team Status: Inactive Member Role Status Dates Dr. Priscilla Arndt MD Primary Care Provider Active Start: July 27, 2024 End: July 27, 2024 Dr. Priscilla Arndt MD Referring Provider Active Start: July 27, 2024 End: July 27, 2024 Nicki Pantoja NP-C Attending Provider Active Start: July 27, 2024 End: July 27, 2024 Team Status: Inactive Member Role Status Dates Dr. Priscilla Arndt MD Primary Care Provider Active Start: [...] End: August 28, 2024 Dr. Rock Dick DO Other Provider Active Start : August 27, [...] 2024 End: August 28, 2024 Dr. Jarek oRsas MD Other Provider Active Start : August [...] End: August 28, 2024 Dr. Sukhdeep Michelle , Other Provider Active St art: August 27, 2024 End: August 28, 2024 Dr. Erica Palacios MD Other Provider Active Start: August 27, 2024 End: August 28, 2024 Dr. Kee Lagos MD Other Provider Active St art: August 27, 2024 End: August 28, 2024 Dr. Mauricio Culp , Other Provider Active Start: August 27, 2024 End: August 28, 2024 Dr. Humberto Ashley MD Other Provider Active Star t: August 27, 2024 End: August 28, 2024 Dr. Roel Bermudez MD Other Provider Active Sta rt: August 27, 2024 End: August 28, 2024 Al Conner MD Other Provider Active Start: [facility] 2024 End: August 28, 2024 Dr. Nael [...] August 27, 2024 End: August 28, 2024 Employee Development Manager Relationship Specialty Start Date End Date Priscilla Arndt MD [address] [place] [address] PCP - General Internal Medicine 01/01/16 Lance Gillespie (Hist) [address] [place] [address] Referring 09/07/16 Fish, Alison, CENTRAL CONTROL ROOM OPERATOR.DIRECTOR OF PROPERTY MANAGEMENT [address] [place] [address] Byproduct Engineer Internal Medicine 05/23/24 Employee Development Manager Relationship Specialty Start Date End Date Priscilla Arndt MD [address] [place] [address] PCP - General Internal Medicine 01/01/16 Lance Gillespie (Hist) [address] [place] [address] Referring 09/07/16 Alison Whitten, CENTRAL CONTROL ROOM OPERATOR.DIRECTOR OF PROPERTY MANAGEMENT [address] [facility] [place] [address] Byproduct Engineer Internal Medicine 05/23/24 Team Status: Active Member Role Status Dates Dr. Priscilla Arndt MD Primary Care Provider Active Start: [...] Al Conner MD Other Provider Active Start: [facility] 2024 Dr. Nael Grullon MD Other Provider [...] Other Provider Active Start: August 28, 2024 Kandi Ray MD Other Provider Active Start: August 28, 2024 Team Status: Active Member Role Status Dates Dr. Priscilla Arndt MD Primary Care Provider Active Start: November 25, 2024 SANDRA Reyes Attending Provider Active Start: November 25, 2024 SANDRA Reyes Referring Provider Active Start: November 25, 2024 Team Status: Inactive Member Role Status Dates Dr. Priscilla Arndt MD Primary Care Provider Active Start: November 26, 2024 End: November 26, 2024 Dr. Priscilla Arndt MD Referring Provider Active Start: November 26, 2024 End: November 26, 2024 SANDRA Reyes Attending Provider Active Start: November 26, 2024 End: November 26, 2024 Team Status: Inactive Member Role Status Dates Dr. Priscilla Arndt MD Primary Care Provider Active Start: November 25, 2024 End: November 25, 2024 SANDRA Reyes Attending Provider Active Start: November 25, 2024 End: November 25, 2024 SANDRA Reyes Referring Provider Active Start: November 25, 2024 End: November 25, 2024 Employee Development Manager Relationship Specialty Start Date End Date Priscilla Arndt MD [address] [place] [address] PCP - General Internal Medicine 01/01/16 Lance Gillespie (Hist) [address] [place] [address] Referring 09/07/16 Alison Whitten APRN.DIRECTOR OF PROPERTY MANAGEMENT [address] [place] [address] Byproduct Engineer Internal Medicine 05/23/24 Team Status: Active Member Role/Relationship Status Dates Dr. Priscilla Arndt MD Primary Care Provider Active Team Status: Inactive Member Role/Relationship Status Dates Dr. Priscilla Arndt MD Primary Care Provider Active Start: November 25, 2024 End: November 25, 2024 SANDRA Reyes Attending Provider Active Start: November 25, 2024 End: November 25, 2024 SANDRA Reyes Referring Provider Active Start: November 25, 2024 End: November 25, 2024 Team Status: Inactive Member Role/Relationship Status Dates Dr. Priscilla Arndt MD Primary Care Provider Active Start: November 26, 2024 End: November 26, 2024 Dr. Priscilla Arndt MD Referring Provider Active Start: November 26, 2024 End: November 26, 2024 SANDRA Reyes Attending Provider Active Start: November 26, 2024 End: November 26, 2024 Team Status: Inactive Member Role/Relationship Status Dates Dr. Priscilla Arndt MD Primary Care Provider Active Start: January 21, 2025 End: January 21, 2025 Dr. Priscilla Arndt MD Referring Provider Active Start: January 21, 2025 End: January 21, 2025 SANDRA Reyes Attending Provider Active Start: January 21, 2025 End: January 21, 2025 Team Status: Inactive Member Role/Relationship Status Dates Dr. Priscilla Arndt MD Primary Care Provider Active Start: January 22, 2025 End: January 23, 2025 Dr. Jarek Sullivan DO Emergency Provider Active Start: January 22, 2025 End: January 23, 2025 Team Status: Active Member Role/Relationship Status Dates Dr. Priscilla Arndt MD Primary Care Provider Active Start: January 23, 2025 Dr. Jarek Sullivan DO Emergency Provider Active Start: January 23, 2025 Dr. Nettie Rodriguez MD Attending Provider Active Start: January 23, 2025 (unrecognized sect ion and content) No Status Records FoundNo Status Records FoundNo Status Records Found INFORMATION SOURCE (unrecogn ized section and content) DATE CREATED AUTHOR 08/02/2023 [facility] DATE CREATED AUTHOR AUTHOR'S ORGANIZ ATION 12/08/2024 [facility] DATE CREATED AUTHOR AUTHOR'S ORGANIZ ATION 01/01/2025 [facility] FOR RECORDS PERTAINING TO PATIENTS WHO ARE [...] BE BASED ON THE PRIMARY CLINICAL RECORDS. [facility] [employer] [facility]. provides no warranty or guarantee of the accuracy or completeness of information in this document.
[2025-01-23 02:25] VITALS: BMI 19.0
[2025-01-23 02:26] LABS: Magnesium 1.8 mg/dL (1.5-2.2)
[2025-01-23 02:34] VITALS: BP 123/57; PULSE 75; RESP 16; TEMP 36.1; O2SAT 97
[2025-01-23] MEDS: 0.9% Normal Saline (1000mL) 1,000 ML 125 ML IV (02:59)
[2025-01-23] MEDS: levETIRAcetam IV 500 MG in 0.9% Normal Saline (100mL Bag) 100 ML 420 MG IV (03:03)
[2025-01-23] MEDS: DEXTROSE 5% IV (03:24)
[2025-01-23] MEDS: WATER IV (03:24)
[2025-01-23] MEDS: VALPROATE SODIUM IV (03:24)
[2025-01-23] MEDS: Pantoprazole Sodium 40 MG in 0.9% Normal Saline (100mL MB+) 100 ML 330 MG IV (04:33)
[2025-01-23] MEDS: Folic Acid 1 MG in 0.9% Normal Saline (50mL Bag) 50 ML 200 MG IV (04:59)
[2025-01-23] MEDS: Thiamine Hydrochloride 100 MG in 0.9% Normal Saline (50mL Bag) 50 ML 200 MG IV (05:15)
--- NOTE | 2025-01-23 06:00 | NURSING ---
Patient more awake and conversationally appropriate. Patient aware that he is in the hospital and what brought him in. When this rn asked patient what happened, patient stated that he just wanted to get some sleep and was sick of hearing his bickering at him. Patient stated he took extra of his meds just wanting to sleep, patient denies wanting to kill himself.
[2025-01-23 06:48] LABS: Hematocrit 36.9 % (40-54); Hemoglobin 12.3 g/dL (13.0-16.5); Immature Granulocytes Count 0.020 X10^3/uL (0.0-0.0); Mean Corp Hgb Conc 33.3 g/dL (32-36); Mean Corpuscular Volume 92.3 fL (80-94); Mean Platelet Vol. 9.4 fl (6.2-12.0); NRBC Flagged by Analyzer 0 % (0-5); Platelet Count 220 K/mm3 (150-450); RBC Distribution Width CV 13.6 % (11.6-14.6); RBC Distribution Width SD 47.1 fl (35.1-43.9); Red Blood Count 4.00 M/mm3 (4.6-6.2); White Blood Count 6.1 K/mm3 (4.4-11.0)
[2025-01-23 07:01] LABS: AST(SGOT) 14 U/L (<=37); Alanine Aminotransfer ALT/SGPT < 5 U/L (<=46); Albumin, Serum 3.3 g/dL (3.4-4.8); Alkaline Phosphatase 57 U/L (40-129); Anion Gap 9 (5-15); BUN 16 mg/dL (4-19); BUN/Creat Ratio 28.6 RATIO (10-20); Calcium,Total 7.9 mg/dL (7.6-11.0); Carbon Dioxide 25.4 mmol/L (21.0-32.0); Chloride 106 mmol/L (98-108); Estimated Creatinine Clearance 107.38 ml/min (50-250); Globulin 1.6 g/dL (2.2-4.2); Glucose 84 mg/dL (70-99); Potassium 3.8 mmol/L (3.3-5.1)
[2025-01-23 08:02] VITALS: BP 137/95; PULSE 65; RESP 16; TEMP 36.4; O2SAT 95
[2025-01-23 08:04] VITALS: BMI 19.9
--- NOTE | 2025-01-23 12:01 | DCINST_ITS ---
Discharge Instructions DC O2, CPAP, BIPAP needs Home O2 Discharge instructions: No Dressing / Incision Discharge Activity: Return to Normal Activity Weight Bearing Status: Full weight bearing Follow Up Care Test Results: Test results from this visit will be discussed in further detail at your follow- up appointment, if applicable. Discharge Plan Admission Admit Date/Time: 01/23/25 01:28 Primary Reason for Your Visit: Adverse medication reaction Attending Provider: Kvng Hernandez Primary Care Provider: Priscilla Nixon Consulting Providers: Nettie Rodriguez Discharge Orders/Prescriptions Prescriptions: Continued fluticasone propionate 50 mcg/actuation spray,suspension 2 spray intranasal DAILY Qty: 16 3RF (DME) Disability Placard See Rx Instructions .ROUTE .MEDSUPPLY Qty: 1 0RF Rx Instructions: expires 06/14/2029 albuterol sulfate 90 mcg/actuation HFA aerosol inhaler 2 puff inhalation Q4H PRN (Reason: shortness of breath or wheezing) Qty: 8.5 11RF Rx Instructions: administer with spacer Dupixent Pen 300 mg/2 mL pen injector 300 mg subcut Q2W Qty: 4 11RF amitriptyline 100 mg tablet 100 mg PO QHS PRN (Reason: sleep) Patient Comments: TAKE 1 TABLET BY MOUTH EVERY DAY levetiracetam 500 MG tablet 500 mg PO BID divalproex 250 mg tablet,delayed release (DR/EC) 750 mg PO BID gabapentin 800 mg tablet 800 mg PO TID albuterol sulfate 2.5 mg /3 mL (0.083 %) solution for nebulization 2.5 mg inhalation Q4H PRN Qty: 120 4RF Rx Instructions: Use q4 hours and PRN for wheezing Trelegy Ellipta 200-62.5-25 mcg blister with device 1 inh inhalation DAILY Qty: 60 11RF Referrals / Follow Up: Priscilla Nixon MD [Primary Care Provider] - See Referral Note (At your next scheduled visit) Disposition Disposition (needs filled in before D/C Order can be placed): Home, Self Care
--- NOTE | 2025-01-23 12:03 | PCM.DC.SUM ---
Providers Date of Admission: 01/23/25 Date of Discharge: 01/23/25 Primary Care Physician: Dr. Priscilla Nixon MD Reason For Visit: UNRESPONSIVE, SUSPECT ACCIDENTAL OD Diagnosis Discharge Diagnosis (1) Encephalopathy acute: Status: Acute Code(s): G93.40 - Encephalopathy, unspecified Plan 1. Encephalopathy secondary to home medication #2 chronic obstructive pulmonary disease #3 chronic anxiety/depression #4 seizure disorder Medications at Discharge Home Medications levetiracetam 500 mg tablet 500 mg PO BID Check with primary doctor 04/28/20 divalproex 250 mg tablet,delayed release 750 mg PO BID 03/28/24 albuterol sulfate 2.5 mg/3 mL (0.083 %) solution for nebulization 2.5 mg (3 mL) inhalation Q4H PRN #120 vials 04/15/24 Disability Placard #1 ea 06/14/24 fluticasone propionate 50 mcg/actuation nasal spray,suspension 2 spray intranasal DAILY #16 grams 06/14/24 albuterol sulfate 90 mcg/actuation aerosol inhaler 2 puff inhalation Q4H PRN shortness of breath or wheezing #8.5 grams 07/27/24 amitriptyline 100 mg tablet 100 mg PO QHS PRN sleep 07/27/24 gabapentin 800 mg tablet 800 mg PO TID 08/27/24 fluticasone fur. 200 mcg-umeclid 62.5 mcg-vilant 25 mcg inhalat.powder (Trelegy Ellipta) 1 inh inhalation DAILY #60 ea 09/22/24 dupilumab 300 mg/2 mL subcutaneous pen injector (Dupixent) 300 mg (2 mL) subcut Q2W #4 mL 11/26/24 Hospital Course Operations None Procedures None Summary of Care Provided Minutes Spent on Discharge: 30 Hospital Course: This 64-year-old white male was seen in the emergency room at [facility] with complaints of decreased mental status. Squad was called to bring the patient to the ER for evaluation. Patient had minimal response to squad but did respond to pain. Workup in the emergency room included labs which were unremarkable. CT of the brain showed no acute intracranial findings. Patient was placed in observation status on PCU, patient's mental status improved and he told nursing that he took extra sleep medication because he did not want to talk to his and wanted to go to sleep. On 01/23/2025, patient was seen and examined: On examination he appeared in good health and spirits. Vital signs as documented. Skin warm and dry and without overt rashes. Neck without JVD, neck was supple, trachea midline, thyroid was normal. Lungs clear bilaterally, normal air movement was noted. Heart exam notable for regular rhythm, normal sounds and absence of murmurs, rubs or gallops. Abdomen unremarkable and without evidence of organomegaly, masses, or abdominal aortic enlargement. Bowel sounds are present, abdomen is not distended. Extremities nonedematous, no cyanosis was noted, no clubbing was noted. Neuro: Cranial nerves II through XII are grossly intact, no focal motor deficits were noted, sensation to light touch and pinprick intact, motor exam 5/5 throughout. Psych: Patient is alert and oriented x3, he does not appear anxious or depressed, he does not appear agitated. Patient was felt to be stable for discharge home on 01/23/2025 Weight / BMI Weight Weight: 56.2 kg Body Mass Index (BMI) 19.9 ABG / Lab / Microbiology Data 01/23/25 05:20 01/23/25 05:20 Laboratory: Laboratory Results - last 24 hr 01/22/25 23:12: WBC 9.5, RBC 4.59 L, Hgb 14.0, Hct 42.1, MCV 91.7, MCH 30.5, MCHC 33.3, RDW Std Deviation 46.4 H, RDW Coeff of Aaron 13.7, Plt Count 264, MPV 9.1, Immature Gran % (Auto) 1.100 H, Neut % (Auto) 69.5, Lymph % (Auto) 24.6, [place] % (Auto) 4.1, Eos % (Auto) 0.2, Baso % (Auto) 0.5, Absolute Neuts (auto) 6.6, Absolute Lymphs (auto) 2.34, Nucleated RBC % 0, Sodium 139, Potassium 3.8, Chloride 99, Carbon Dioxide 28.6, Anion Gap 11, BUN 16, Creatinine 0.73, Estim Creat Clear Calc 78.65, Est GFR (MDRD) Non-Af 103, BUN/Creatinine Ratio 22.2 H, Glucose 89, Calcium 9.0, Phosphorus 4.1, Magnesium 1.8, Total Bilirubin 0.43, Direct Bilirubin 0.19, AST 18, ALT 8, Alkaline Phosphatase 70, Lactate Dehydrogenase 159, Total Protein 6.3, Albumin 4.0, Globulin 2.3 01/22/25 23:35: Lactic Acid 1.6, Ammonia 22.8, Salicylates < 0.5 L, Acetaminophen < 5.0 L, Ethyl Alcohol Cancelled 01/22/25 23:35: Ethyl Alcohol < 10.1 01/22/25 23:49: Urine Color Yellow, Urine Clarity Clear, Urine pH 6.5, Ur Specific [place] 1.020, Urine Protein 30 H, Urine Glucose (UA) Normal, Urine Ketones 5 H, Urine Occult Blood Negative, Urine Nitrite Negative, Urine Bilirubin Negative, Urine Urobilinogen Normal, Ur Leukocyte Esterase Negative, Urine RBC 0 SEEN, Urine WBC 0 SEEN, Ur Squamous Epith Cells 0 SEEN, Urine Bacteria 0 SEEN, Urine Mucus 0 SEEN, Urine Opiates Screen NEGATIVE, U Buprenorphine Qual NEGATIVE, Ur Oxycodone Screen NEGATIVE, Urine Methadone Screen NEGATIVE, Urine Fentanyl Screen NEGATIVE, Ur Barbiturates Screen NEGATIVE, Ur Phencyclidine Scrn NEGATIVE, Ur Amphetamines Screen NEGATIVE, U Benzodiazepines Scrn NEGATIVE, Urine Cocaine Screen NEGATIVE, U Cannabinoids Screen NEGATIVE 01/23/25 05:20: WBC 6.1, RBC 4.00 L, Hgb 12.3 L, Hct 36.9 L, MCV 92.3, MCH 30.8, MCHC 33.3, RDW Std Deviation 47.1 H, RDW Coeff of Aaron 13.6, Plt Count 220, MPV 9.4, Immature Gran % (Auto) 0.300, Neut % (Auto) 53.7, Lymph % (Auto) 38.3, [place] % (Auto) 6.5, Eos % (Auto) 0.7, Baso % (Auto) 0.5, Absolute Neuts (auto) 3.3, Absolute Lymphs (auto) 2.34, Nucleated RBC % 0, Sodium 141, Potassium 3.8, Chloride 106, Carbon Dioxide 25.4, Anion Gap 9, BUN 16, Creatinine 0.54 L, Estim Creat Clear Calc 107.38, Est GFR (MDRD) Non-Af 113, BUN/Creatinine Ratio 28.6 H, Glucose 84, Calcium 7.9, Total Bilirubin 0.42, AST 14, ALT < 5, Alkaline Phosphatase 57, Total Protein 4.9 L, Albumin 3.3 L, Globulin 1.6 L, Albumin/Globulin Ratio 2.1 ABG: ABG 01/22/25 23:44 Specimen Type NINO Sample Site Not entered VBG pH 7.41 VBG pO2 37 VBG HCO3 34 H VBG Total CO2 36 H VBG O2 Sat (Calc) 69 VBG Base Excess 9 H POC Mix VBG pCO2 Pt Tmp 54.2 H O2 Delivery Device Room Air Radiography Diagnostic Testing: Radiology Impression Brain CT 01/22/25 23:27 IMPRESSION: No acute intracranial finding. Chronic findings as described. Dr. Betancourt discussed these findings via telephone with Dr. Sullivan at 11:42 p.m. on 01/22/2025. Reading Location: [id number] Chest X-Ray 01/22/25 23:59 IMPRESSION: No acute chest findings Reading Location: [place] [id number] D/C Instructions Weight Bearing Status: Full weight bearing DC O2, CPAP, BIPAP Needs Home O2 Discharge instructions: No Meaningful Use Info Meaningful Use Meaningful Use Diagnoses (Choose all that apply): None applicable Discharge Plan Admission Admit Date/Time: 01/23/25 01:28 Primary Reason for Your Visit: Adverse medication reaction Attending Provider: Kvng Hernandez Primary Care Provider: Priscilla Nixon Consulting Providers: Nettie Rodriguez Discharge Orders/Prescriptions Prescriptions: Continued fluticasone propionate 50 mcg/actuation spray,suspension 2 spray intranasal DAILY Qty: 16 3RF (DME) Disability Placard See Rx Instructions .ROUTE .MEDSUPPLY Qty: 1 0RF Rx Instructions: expires 06/14/2029 albuterol sulfate 90 mcg/actuation HFA aerosol inhaler 2 puff inhalation Q4H PRN (Reason: shortness of breath or wheezing) Qty: 8.5 11RF Rx Instructions: administer with spacer Dupixent Pen 300 mg/2 mL pen injector 300 mg subcut Q2W Qty: 4 11RF amitriptyline 100 mg tablet 100 mg PO QHS PRN (Reason: sleep) Patient Comments: TAKE 1 TABLET BY MOUTH EVERY DAY levetiracetam 500 MG tablet 500 mg PO BID divalproex 250 mg tablet,delayed release (DR/EC) 750 mg PO BID gabapentin 800 mg tablet 800 mg PO TID albuterol sulfate 2.5 mg /3 mL (0.083 %) solution for nebulization 2.5 mg inhalation Q4H PRN Qty: 120 4RF Rx Instructions: Use q4 hours and PRN for wheezing Trelegy Ellipta 200-62.5-25 mcg blister with device 1 inh inhalation DAILY Qty: 60 11RF Referrals / Follow Up: Priscilla Nixon MD [Primary Care Provider] - See Referral Note (At your next scheduled visit) Disposition Disposition (needs filled in before D/C Order can be placed): Home, Self Care Charges/Coding Visit Charges Inpatient E&M: 64111 Disch Hosp
[2025-01-23 12:48] VITALS: BP 125/83; PULSE 86; RESP 16; O2SAT 98
== END 2025-01-23 12:03 | disposition home or self-care (01) ==
LOC: ED 01-23 01:46 → PCU 01-23 02:14
PROVIDERS: Admitting Provider Family Medicine; Emergency Provider Emergency Medicine; PCP Internal Medicine; Visit Provider Internal Medicine
DX: G92.8 Other toxic encephalopathy (principal); F19.19 Other psychoactive substance abuse with unspecified psychoactive substance-induced disorder; F31.9 Bipolar disorder, unspecified; J44.89 Other specified chronic obstructive pulmonary disease; G40.909 Epilepsy, unspecified, not intractable, without status epilepticus; K21.9 Gastro-esophageal reflux disease without esophagitis; F41.9 Anxiety disorder, unspecified; G43.709 Chronic migraine without aura, not intractable, without status migrainosus; G47.33 Obstructive sleep apnea (adult) (pediatric); M48.00 Spinal stenosis, site unspecified; F17.210 Nicotine dependence, cigarettes, uncomplicated; F10.10 Alcohol abuse, uncomplicated; Z79.51 Long term (current) use of inhaled steroids; Z87.820 Personal history of traumatic brain injury; Z79.899 Other long term (current) drug therapy; T43.015A Adverse effect of tricyclic antidepressants, initial encounter; T42.6X5A Adverse effect of other antiepileptic and sedative-hypnotic drugs, initial encounter
CPT/HCPCS: 36415; 70450; 71045; 80048; 80053; 80076; 80143; 80179; 80307; 81001; 82077; 82140; 82803; 83605; 83615; 83735; 84100; 85025; 93005; 96361; 96365; 96367; 96375; 97802; 99221; 99285; A4216; G0378